=== PATIENT | male | born 1940 | race Caucasian/White ===

== ENCOUNTER 2018-03-30 18:50 | Emergency (ER) | payer OTHER ==
[2018-03-30 20:16] LABS: Absolute Lymphocytes (CBC) 1.2 K/uL (0.7-4.9); Absolute Monocytes 1.5 K/uL (0.1-1.3); Absolute Neutrophil 11.9 K/uL (1.8-8.0); Basophils % 0.2 % (0-1.3); Eosinophils % 0.2 % (0-4.4); Hematocrit 44.6 % (39.6-49.0); Lymphocytes % 8.1 % (15.3-44.8); MCH 30.7 pg (27.0-35.0); MCV 92.6 fL (80-100); MPV 8.3 fL (7.6-11.3); Monocytes % 10.5 % (3.3-12.3); RBC Red Blood Cell Count 4.82 M/uL (4.33-5.43)
[2018-03-30 20:32] LABS: Protime INR 1.37
[2018-03-30 20:49] LABS: BUN Blood Urea Nitrogen 19 mg/dL (7-18); Bicarbonate 27 mmol/L (21-32); Glucose Level 100 mg/dL (74-106); Potassium 3.7 mmol/L (3.5-5.1); Sodium Level 139 mmol/L (136-145)
[2018-03-30 20:50] LABS: ALT/SGPT 29 U/L (12-78); AST/SGOT 22 U/L (15-37); Albumin 3.6 g/dL (3.4-5.0); Alkaline Phosphatase 113 U/L (45-117); Bilirubin Direct 0.2 mg/dL (0-0.2); Bilirubin Total 0.5 mg/dL (0.2-1.0); Magnesium 1.9 mg/dL (1.8-2.4); NT PRO-BNP 3176 pg/mL (<450); Protein, Total 7.2 g/dL (6.4-8.2); Troponin (Emerg Dept Use Only) < 0.02 ng/mL (0.0-0.045)
--- NOTE | 2018-03-30 21:09 | RAD REPORT ---
EXAM DESCRIPTION: Mick Single View03/30/2018 8:40 pm CLINICAL HISTORY: Chest pain COMPARISON: November 2017 FINDINGS: The lungs appear clear of acute infiltrate. The heart is mildly moderately enlarged IMPRESSION: No acute abnormalities displayed
[2018-03-30 21:39] LABS: Urine Appearance CLEAR; Urine Bilirubin NEGATIVE (NEG); Urine Blood TRACE (NEG); Urine Color YELLOW; Urine Glucose NEGATIVE (NEG); Urine Microscopic Reflex ORDER UMIC; Urine Protein 1+ (NEG); Urine Specific Gravity 1.025 (1.005-1.030); Urine Urobilinogen 0.2 mg/dL (0.2-1.0); Urine pH 5.5 (5.0-7.0)
[2018-03-30 21:56] LABS: Urine Bacteria >50 /HPF (NONE SEEN); Urine Culture Reflex Order REFLEXED; Urine RBC <5 /HPF (NONE SEEN)
[2018-03-30] MEDS ORDERED: CEFTRIAXONE/SWI 1gm 1 GM/10 ML SYR ONE (22:12)
--- NOTE | 2018-03-30 22:12 | ER ---
Nurse's Notes [facility] Name: Tim Ahn Age: 77 yrs Sex: Male : 1940 Arrival Date: 03/30/2018 Time: 18:57 Bed 18 Private MD: Diagnosis: Urinary tract infection, site not specified Presentation: 03/30 18:58 Presenting complaint: EMS states: called out for generalized weakness about 30-60 min. em ago, was unable to get out of chair, denies falling or LOC, reports having a hx of "ataxia about once a year". Transition of care: patient was not received from another setting of care. Onset of symptoms was March 30, 2018. Risk Assessment: Do you want to hurt yourself or someone else? Patient reports no desire to harm self or others. Initial Sepsis Screen: Does the patient meet any 2 criteria? No. Patient's initial sepsis screen is negative. Does the patient have a suspected source of infection? No. Patient's initial sepsis screen is negative. Care prior to arrival: None. 18:58 Method Of Arrival: EMS: [facility] em 19:10 Acuity: LUCIEN 3 cc3 Triage Assessment: 19:09 General: Appears in no apparent distress. comfortable, Behavior is calm, cooperative. em Pain: Denies pain. Neuro: Level of Consciousness is awake, alert, obeys commands, Oriented to person, place, time, situation, Dispensary Attendant are equal bilaterally Moves all extremities. Speech is normal, Facial symmetry appears normal, Pupils are PERRLA, Intact. Historical: - Allergies: 19:09 Aggrenox; em 19:09 Dexamethasone; em 19:09 Diltiazem; em 19:09 Diovan; em 19:09 Enalapril; em 19:09 Guanfacine; em 19:09 Mivdzdn-Pef-Oob Reductase Inhibitors; em - Home Meds: 19:09 acetaminophen-codeine 300-30 mg Oral tab 1 tab q 4-6 hrs prn [Active]; docusate sodium em 100 mg Oral cap 1 cap once daily [Active]; fexofenadine 180 mg Oral tab 1 tab daily prn [Active]; glucosamine-chondroitin 1500/1200 Oral liqd 2 tab daily [Active]; Xarelto 15 mg Oral tab daily [Active]; tamsulosin 0.4 mg Oral cp24 1 cap once daily [Active]; Fish Oil 300 mg Oral cap daily [Active]; melatonin 3 mg Oral tab nightly [Active]; methocarbamol 500 mg oral tab [Active]; metoprolol succinate 50 mg Oral Tb24 1 tab once daily [Active]; montelukast 10 mg Oral tab 1 tab daily prn [Active]; Multiple Vitamins Oral tab daily [Active]; - PMHx: 19:09 Atrial Fib; BPH; Hypertension; SVT; em - PSHx: 19:09 Knee surgery; hand surgery; em - Immunization history:: Adult Immunizations up to date. - Social history:: Smoking status: Patient/guardian denies using tobacco. - Ebola Screening: : Patient negative for fever greater than or equal to 101.5 degrees Fahrenheit, and additional compatible Ebola Virus Disease symptoms Patient denies exposure to infectious person Patient denies travel to an Ebola-affected area in the 21 days before illness onset No symptoms or risks identified at this time. Screenin:10 Abuse screen: Denies threats or abuse. Denies injuries from another. Nutritional cc3 screening: No deficits noted. Tuberculosis screening: No symptoms or risk factors identified. Fall Risk Ambulatory Aid- None/Bed Rest/Nurse Assist (0 pts). Gait- Normal/Bed Rest/Wheelchair (0 pts) Mental Status- Oriented to own ability (0 pts). Assessment: 19:10 General: Appears in no apparent distress. comfortable, Behavior is calm, cooperative, cc3 appropriate for age. Pain: Denies pain. Neuro: Level of Consciousness is awake, alert, obeys commands, Oriented to person, place, time, situation, Appropriate for age. Cardiovascular: Denies chest pain. Respiratory: Airway is patent Respiratory effort is even, unlabored, Respiratory pattern is regular, symmetrical. GI: Abdomen is round non-distended. : No signs and/or symptoms were reported regarding the genitourinary system. EENT: No signs and/or symptoms were reported regarding the EENT system. Derm: Skin temperature is warm. Musculoskeletal: Circulation, motion, and sensation intact. Range of motion: intact in all extremities. 20:30 Reassessment: Patient appears in no apparent distress at this time. Patient and/or cc3 family updated on plan of care and expected duration. Pain level reassessed. Patient is alert, oriented x 3, equal unlabored respirations, skin warm/dry/pink. 21:10 Reassessment: Patient appears in no apparent distress at this time. Patient and/or cc3 family updated on plan of care and expected duration. Pain level reassessed. Patient is alert, oriented x 3, equal unlabored respirations, skin warm/dry/pink. 22:20 Reassessment: Patient appears in no apparent distress at this time. Patient and/or cc3 family updated on plan of care and expected duration. Pain level reassessed. Patient is alert, oriented x 3, equal unlabored respirations, skin warm/dry/pink. Dr. Alva discharged the patient home with prescription given. IV cannula removed and patient left ER vitally stable and ambulatory with his family. Vital Signs: 19:09 BP 125 / 67; Pulse 95; Resp 16; Pulse Ox 96% on R/A; Weight 103.87 kg; Height 5 ft. 11 em in. (180.34 cm); Pain 0/10; 20:45 BP 152 / 96; Pulse 90; Resp 20; Pulse Ox 97% on R/A; cc3 21:00 BP 162 / 87; Pulse 93; Resp 19; Pulse Ox 99% ; cc3 22:10 BP 158 / 79; Pulse 89; Resp 20 S; Pulse Ox 97% on R/A; Pain 0/10; cc3 19:09 Body Mass Index 31.94 (103.87 kg, 180.34 cm) em ED Course: 18:57 Patient arrived in ED. em 18:57 Genaro Darby, RN is Primary Nurse. bp 19:09 Arm band placed on. em 19:10 Patient has correct armband on for positive identification. Bed in low position. Call cc3 light in reach. Side rails up X2. conveyor monitor on. Pulse ox on. NIBP on. 19:26 Neno Alva MD is Attending Physician. tw4 19:34 Triage completed. cc3 19:45 Inserted saline lock: 20 gauge in left antecubital area, using aseptic technique. Blood cc3 collected. 20:40 XRAY Chest (1 view) In Process Unspecified. EDMS 22:20 No provider procedures requiring assistance completed. IV discontinued, intact, cc3 bleeding controlled, No redness/swelling at site. Pressure dressing applied. Administered Medications: 22:06 Drug: Rocephin - (cefTRIAXone) 1 grams Route: IVPB; Infused Over: 30 mins; Site: left ao antecubital; 22:20 Follow up: Response: No adverse reaction; IV Status: Completed infusion; IV Intake: [id number] Point of Care Testing: Blood Glucose: 19:07 Blood Glucose: 148 mg/dL; oe Ranges: Intake: 22:20 IV: 50ml; Total: 50ml. cc3 Outcome: 22:12 Discharge ordered by . tw4 22:20 Discharged to home ambulatory, with family. cc3 22:20 Condition: stable 22:20 Discharge instructions given to patient, family, Instructed on discharge instructions, follow up and referral plans. medication usage, Demonstrated understanding of instructions, follow-up care, medications, Prescriptions given X 1. 22:25 Patient left the ED. cc3 Addendum: 04/03/2018 07:18 Addendum: Culture Results: Positive urine culture. No further action required. Bacteria i w sensitive to prescribed antibiotic. Signatures: Dispatcher [employer] EDCrescencio Wilson, PIPE ROLLER PIPE ROLLER em Lesley Villanueva, RN RN Jf Corbett, RN Wale Miranda Brian, RN RN Neno Rawls MD MD tw4 Licha Lamar cc3
--- NOTE | 2018-03-30 22:13 | EDPHYS ---
Physician Documentation [facility] Name: Tim Ahn Age: 77 yrs Sex: Male : 1940 Arrival Date: 03/30/2018 Time: 18:57 Bed 18 Private MD: ED Physician Neno Alva HPI: 03/30 20:40 This 77 yrs old Male presents to ER via EMS with complaints of General tw4 Weakness. 20:40 The patient's problem is reported as weakness, that is generalized. Onset: The tw4 symptoms/episode began/occurred today. Duration: The episode is continuous. The symptoms are alleviated by nothing. The symptoms are aggravated by nothing. Associated signs and symptoms: The patient has no apparent associated signs or symptoms. Severity of symptoms: At their worst the symptoms were moderate. Patient's baseline: Neuro: alert and fully oriented, Motor: no deficits, Ambulation: walks without assistance. The patient has not experienced similar symptoms in the past. Historical: - Allergies: 19:09 Aggrenox; em 19:09 Dexamethasone; em 19:09 Diltiazem; em 19:09 Diovan; em 19:09 Enalapril; em 19:09 Guanfacine; em 19:09 Dxmuehx-Mmn-Qma Reductase Inhibitors; em - Home Meds: 19:09 acetaminophen-codeine 300-30 mg Oral tab 1 tab q 4-6 hrs prn [Active]; docusate sodium em 100 mg Oral cap 1 cap once daily [Active]; fexofenadine 180 mg Oral tab 1 tab daily prn [Active]; glucosamine-chondroitin 1500/1200 Oral liqd 2 tab daily [Active]; Xarelto 15 mg Oral tab daily [Active]; tamsulosin 0.4 mg Oral cp24 1 cap once daily [Active]; Fish Oil 300 mg Oral cap daily [Active]; melatonin 3 mg Oral tab nightly [Active]; methocarbamol 500 mg oral tab [Active]; metoprolol succinate 50 mg Oral Tb24 1 tab once daily [Active]; montelukast 10 mg Oral tab 1 tab daily prn [Active]; Multiple Vitamins Oral tab daily [Active]; - PMHx: 19:09 Atrial Fib; BPH; Hypertension; SVT; em - PSHx: 19:09 Knee surgery; hand surgery; em - Immunization history:: Adult Immunizations up to date. - Social history:: Smoking status: Patient/guardian denies using tobacco. - Ebola Screening: : Patient negative for fever greater than or equal to 101.5 degrees Fahrenheit, and additional compatible Ebola Virus Disease symptoms Patient denies exposure to infectious person Patient denies travel to an Ebola-affected area in the 21 days before illness onset No symptoms or risks identified at this time. ROS: 20:40 Constitutional: Negative for fever, chills, and weight loss, Cardiovascular: Negative tw4 for chest pain, palpitations, and edema, Respiratory: Negative for shortness of breath, cough, wheezing, and pleuritic chest pain, Abdomen/GI: Negative for abdominal pain, nausea, vomiting, diarrhea, and constipation, Back: Negative for injury and pain, MS/Extremity: Negative for injury and deformity. 20:40 Neuro: Positive for weakness. Exam: 20:55 Constitutional: This is a well developed, well nourished patient who is awake, alert, tw4 and in no acute distress. Head/Face: Normocephalic, atraumatic. Chest/axilla: Normal chest wall appearance and motion. Nontender with no deformity. No lesions are appreciated. Cardiovascular: Regular rate and rhythm with a normal S1 and S2. No gallops, murmurs, or rubs. Normal PMI, no JVD. No pulse deficits. Respiratory: Lungs have equal breath sounds bilaterally, clear to auscultation and percussion. No rales, rhonchi or wheezes noted. No increased work of breathing, no retractions or nasal flaring. Abdomen/GI: Soft, non-tender, with normal bowel sounds. No distension or tympany. No guarding or rebound. No evidence of tenderness throughout. Back: No spinal tenderness. No costovertebral tenderness. Full range of motion. MS/ Extremity: Pulses equal, no cyanosis. Neurovascular intact. Full, normal range of motion. Psych: Awake, alert, with orientation to person, place and time. Behavior, mood, and affect are within normal limits. Vital Signs: 19:09 BP 125 / 67; Pulse 95; Resp 16; Pulse Ox 96% on R/A; Weight 103.87 kg; Height 5 ft. 11 em in. (180.34 cm); Pain 0/10; 20:45 BP 152 / 96; Pulse 90; Resp 20; Pulse Ox 97% on R/A; cc3 21:00 BP 162 / 87; Pulse 93; Resp 19; Pulse Ox 99% ; cc3 22:10 BP 158 / 79; Pulse 89; Resp 20 S; Pulse Ox 97% on R/A; Pain 0/10; cc3 19:09 Body Mass Index 31.94 (103.87 kg, 180.34 cm) em MDM: 19:27 Patient medically screened. tw4 22:13 Differential diagnosis: CVA, TIA, metabolic disorder, drug effects. Data reviewed: tw4 vital signs, nurses notes. Test interpretation: by ED physician or midlevel provider: ECG. Counseling: I had a detailed discussion with the patient and/or guardian regarding: the historical points, exam findings, and any diagnostic results supporting the discharge/admit diagnosis, lab results. Special discussion: I discussed with the patient/guardian in detail that at this point there is no indication for admission to the hospital. It is understood, however, that if the symptoms persist or worsen the patient needs to return immediately for re-evaluation. 03/30 19:41 Order name: Basic Metabolic Panel; Complete Time: 21:08 03/30 21:09 Interpretation: Normal except: BUN 19; CRE 1.40; GFR 49. 03/30 19:41 Order name: CBC with Diff; Complete Time: 21:08 4 03/30 21:09 Interpretation: Normal except: WBC 14.6; PLT 139; RIAN% 81.0; LYM% 8.1; NEUT A 11.9. 03/30 19:41 Order name: LFT's; Complete Time: 21:08 4 03/30 21:09 Interpretation: Normal except: GLOB 3.6; A/G 1.0. tw03/30 19:41 Order name: Magnesium; Complete Time: 21:08 03/30 21:10 Interpretation: Within normal limits: MG 1.9. 03/30 19:41 Order name: NT PRO-BNP; Complete Time: 21:08 4 03/30 21:10 Interpretation: Normal except: NT PRO-BNP 3176. 03/30 19:41 Order name: PT-INR; Complete Time: 21:08 03/30 21:10 Interpretation: Normal except: PT 16.2. 03/30 19:41 Order name: Troponin (emerg Dept Use Only); Complete Time: 21:08 tw4 03/30 21:10 Interpretation: Within normal limits: TROPED < 0.02. tw4 03/30 19:41 Order name: XRAY Chest (1 view); Complete Time: 21:11 tw4 03/30 19:41 Order name: EKG; Complete Time: 19:42 tw4 03/30 21:12 Order name: Urinalysis; Complete Time: 22:00 tw4 03/30 21:41 Order name: Urine Microscopic Only; Complete Time: 22:00 EDMS 03/30 21:58 Order name: Urine Culture EDMS 03/30 22:04 Order name: Urine Dipstick--Ancillary (enter results) ms 03/30 19:41 Order name: Cardiac monitoring; Complete Time: 19:55 tw4 03/30 19:41 Order name: EKG - Nurse/Tech; Complete Time: 19:55 tw4 03/30 19:41 Order name: IV Saline Lock; Complete Time: 19:55 tw4 03/30 19:41 Order name: Labs collected and sent; Complete Time: 19:55 tw4 03/30 19:41 Order name: O2 Per Protocol; Complete Time: 19:55 tw4 03/30 19:41 Order name: O2 Sat Monitoring; Complete Time: 19:55 tw4 EC:13 Rate is 79 beats/min. Rhythm is irregularly irregular, A fib. QRS [place] is Normal. [place] tw4 interval is normal. QRS interval is normal. QT interval is normal. No Q waves. T waves are Normal. No ST changes noted. Clinical impression: Atrial Fibrillation. Interpreted by me. Reviewed by me. Administered Medications: 22:06 Drug: Rocephin - (cefTRIAXone) 1 grams Route: IVPB; Infused Over: 30 mins; Site: left ao antecubital; 22:20 Follow up: Response: No adverse reaction; IV Status: Completed infusion; IV Intake: [id number] Point of Care Testing: Blood Glucose: 19:07 Blood Glucose: 148 mg/dL; oe Ranges: Critical Glucose Levels:Adult <50 mg/dl or >400 mg/dl <40 mg/dl or >180 mg/dl Disposition: 03/31 05:45 Chart complete. tw4 Disposition: 03/30/18 22:12 Discharged to Home. Impression: Urinary tract infection, site not specified. - Condition is Stable. - Discharge Instructions: Urinary Tract Infection, Adult, Antibiotic Medicine, Adult. - Prescriptions for Macrobid 100 mg Oral Capsule - take 1 capsule by ORAL route every 12 hours for 10 days; 20 capsule. - Medication Reconciliation Form, Thank You Letter, Antibiotic Education, Prescription Opioid Use form. - Follow up: Private Physician; When: Upon discharge from the Emergency Department; Reason: Further diagnostic work-up, Recheck today's complaints, Continuance of care. - Problem is new. - Symptoms have improved. Signatures: Dispatcher [employer] EDMS Crescencio Moore, WORLD GEOGRAPHY TEACHER WORLD GEOGRAPHY TEACHER Jf Chan, RN RN Neno Parisi MD MD tw4 Licha Lamar cc3 Corrections: (The following items were deleted from the chart) 03/30 22:25 22:12 03/30/2018 22:12 Discharged to Home. Impression: Urinary tract infection, site cc3 not specified. Condition is Stable. Forms are Medication Reconciliation Form, Thank You Letter, Antibiotic Education, Prescription Opioid Use. Follow up: Private Physician; When: Upon discharge from the Emergency Department; Reason: Further diagnostic work-up, Recheck today's complaints, Continuance of care. Problem is new. Symptoms have improved. tw4
[2018-03-30 22:39] VITALS: BP 162/87; O2SAT 99
[2018-03-31 01:14] LABS: Urine Blood TRACE (NEG); Urine Glucose NEGATIVE (NEG); Urine Protein 2+ (NEG); Urine Specific Gravity 1.025 (1.005-1.030)
--- NOTE | 2018-04-01 09:11 | EKG ---
Test Date: 2018-03-30 Test Time: 19:39:43 Suture Polisher: SEAN MEASUREMENT RESULTS: Intervals: Rate: 79 [place]: QRSD: 98 QT: 348 QTc: 399 [place]: P: [place]: QRS: 79 T: 11 INTERPRETIVE STATEMENTS: Atrial fibrillation Abnormal ECG Compared to ECG 08/15/2017 17:58:22 No significant changes Electronically Signed On 04-01-18 09:10:26 CDT by Juan M Price
== END 2018-03-30 22:25 | disposition home or self-care (01) ==
LOC: ER 18:50
DX: N39.0 Urinary tract infection, site not specified (principal); I10 Essential (primary) hypertension; I48.91 Unspecified atrial fibrillation; Z79.01 Long term (current) use of anticoagulants; Z88.8 Allergy status to other drugs, medicaments and biological substances
CPT/HCPCS: 36415; 71045; 80048; 80076; 82962; 83735; 83880; 84484; 85025; 85610; 87077 ×2; 87086; 87088; 87186 ×2; 93005; 96374; 99285; J0696; 81003; 81015

== ENCOUNTER 2019-02-14 10:09 | Emergency (ER) | payer OTHER ==
[2019-02-14] MEDS ORDERED: NA CHLORIDE 0.9% 500 ML ONE (10:40)
[2019-02-14] MEDS ORDERED: PROMETHAZINE 25 MG/ML VIAL ONE (10:50)
[2019-02-14 11:01] LABS: Protime INR 1.35
--- NOTE | 2019-02-14 11:03 | RAD REPORT ---
EXAM DESCRIPTION: RAD - Chest Single View - 02/14/2019 10:56 am CLINICAL HISTORY: weakness, shortness of breath Chest pain. COMPARISON: Chest Pa And Lat (2 Views) dated 06/05/2018; Chest Single View dated 03/30/2018; Chest Pa And Lat (2 Views) dated 11/06/2017; Chest Single View dated 08/15/2017 FINDINGS: Portable technique limits examination quality. The lungs are grossly clear. The heart is upper limit of normal in size. No displaced fractures.Hardw are is present in the lower cervical spine. IMPRESSION: No acute intrathoracic process suspected.
[2019-02-14 11:05] LABS: Absolute Lymphocytes (CBC) 1.5 K/uL (0.7-4.9); Basophils % 0.6 % (0-1.3); Hematocrit 46.7 % (39.6-49.0); Lymphocytes % 20.2 % (15.3-44.8); MPV 9.3 fL (7.6-11.3); RBC Red Blood Cell Count 5.19 M/uL (4.33-5.43)
[2019-02-14 12:32] LABS: Urine Blood NEGATIVE (NEG); Urine Glucose NEGATIVE (NEG); Urine Protein TRACE (NEG); Urine pH 8.5 (5.0-7.0)
[2019-02-14 13:06] LABS: Urine Bacteria <20 /HPF (NONE SEEN); Urine Culture Reflex Order REFLEXED; Urine Mucus 1+ /HPF (NONE SEEN); Urine RBC <5 /HPF (NONE SEEN)
[2019-02-14 14:04] LABS: ALT/SGPT 28 U/L (12-78); AST/SGOT 41 U/L (15-37); Albumin 3.8 g/dL (3.4-5.0); Alkaline Phosphatase 96 U/L (45-117); BUN Blood Urea Nitrogen 16 mg/dL (7-18); Bicarbonate 23 mmol/L (21-32); Bilirubin Direct 0.1 mg/dL (0-0.2); Bilirubin Total 0.6 mg/dL (0.2-1.0); Glucose Level 114 mg/dL (74-106); Lipase 139 U/L (73-393); NT PRO-BNP 1443 pg/mL (<450); Potassium 5.3 mmol/L (3.5-5.1); Protein, Total 6.9 g/dL (6.4-8.2); Sodium Level 141 mmol/L (136-145); Troponin (Emerg Dept Use Only) < 0.02 ng/mL (0.0-0.045)
[2019-02-14] MEDS ORDERED: NA CHLORIDE 0.9% 1,000 ML ONE (14:19)
[2019-02-14 16:56] LABS: Potassium 4.3 mmol/L (3.5-5.1)
--- NOTE | 2019-02-14 17:22 | EDPHYS ---
Physician Documentation [facility] Name: Tim Ahn Age: 78 yrs Sex: Male : 1940 Arrival Date: 02/14/2019 Time: 10:13 Bed 16 Private MD: Per Torres T ED Physician Russ Renae HPI: 02/14 10:29 This 78 yrs old Male presents to ER via EMS with complaints of Nausea, Loose jmm Stools, Shortness Of Breath. 10:29 The patient presents to the emergency department with vomiting, diarrhea. Onset: The jmm symptoms/episode began/occurred 3 day(s) ago. Possible causes: unknown. This is a 78 year old male with a history of atrial fibrillation, htn that presents to the ED with complaints of diarrhea, nausea, weakness, shortness of breath. Diarrhea began 3 days ago. Patient states weakness began today. Denies abdominal pain, denies chest pain. . Historical: - Allergies: 10:26 Aggrenox; jl7 10:26 Dexamethasone; jl7 10:26 Diltiazem; jl7 10:26 Diovan; jl7 10:26 Enalapril; jl7 10:26 Guanfacine; jl7 10:26 Cfnoxxb-Bno-Jzn Reductase Inhibitors; jl7 10:26 Lisinopril; jl7 10:26 valsartan; jl7 - Home Meds: 10:26 spironolactone 25 mg Oral tab 1 tab once daily [Active]; Metamucil Smooth Texture Oral jl7 [Active]; fexofenadine 180 mg Oral tab 1 tab daily prn [Active]; Xarelto 15 mg Oral tab daily [Active]; metoprolol succinate 50 mg Oral Tb24 1 tab [Active]; amlodipine 10 mg tab 1 tab once daily [Active]; tamsulosin 0.4 mg Oral cp24 1 cap once daily [Active]; docusate sodium 100 mg Oral cap 1 cap once daily [Active]; montelukast 10 mg Oral tab 1 tab daily prn [Active]; methocarbamol 500 mg Oral tab [Active]; melatonin 3 mg Oral tab nightly [Active]; Multiple Vitamins Oral tab daily [Active]; - PMHx: 10:26 Atrial Fib; BPH; Hypertension; SVT; jl7 - PSHx: 10:26 Knee surgery; hand surgery; jl7 - Immunization history:: Adult Immunizations up to date. - Social history:: Smoking status: Patient/guardian denies using tobacco. - Ebola Screening: : No symptoms or risks identified at this time. ROS: 10:29 Cardiovascular: Negative for chest pain, palpitations, and edema. jmm 10:29 Constitutional: Positive for fatigue, malaise. 10:29 Respiratory: Positive for shortness of breath. 10:29 Abdomen/GI: Positive for nausea, diarrhea. 10:29 Neuro: Positive for weakness. 10:29 All other systems are negative. Exam: 10:29 Constitutional: This is a well developed, well nourished patient who is awake, alert, jmm and in no acute distress. Head/Face: atraumatic. Eyes: EOMI, no conjunctival erythema appreciated ENT: Moist Mucus Membranes Neck: Trachea midline, Supple Chest/axilla: Normal chest wall appearance and motion. Cardiovascular: Regular rate and rhythm. No edema appreciated Respiratory: Normal respirations, no respiratory distress appreciated Abdomen/GI: Non distended, soft Back: Normal ROM Skin: General appearance color normal MS/ Extremity: Moves all extremities, no obvious deformities appreciated, no edema noted to the lower extremities Neuro: Awake and alert, normal gait Psych: Behavior is normal, Mood is normal, Patient is cooperative and pleasant Vital Signs: 10:26 BP 160 / 87; Pulse 74; Resp 26 S; Temp 97.4(O); Pulse Ox 100% on R/A; jl7 11:59 BP 149 / 93; Pulse 67; Resp 19; Temp 98.0(TE); Pulse Ox 100% on 3 lpm NC; 5 14:05 BP 151 / 97; Pulse 61; Resp 23; Pulse Ox 99% 3 lpm ; mh5 15:52 BP 149 / 52; Pulse 72; Resp 18; Temp 97.8(TE); Pulse Ox 100% on 3 lpm NC; mh5 17:00 BP 145 / 63; Pulse 54; Resp 16 S; Pulse Ox 100% on R/A; jl7 MDM: 10:17 Patient medically screened. [facility] 17:19 Data reviewed: vital signs, nurses notes. Counseling: I had a detailed discussion with jody the patient and/or guardian regarding: the historical points, exam findings, and any diagnostic results supporting the discharge/admit diagnosis, lab results, radiology results, the need for outpatient follow up, to return to the emergency department if symptoms worsen or persist or if there are any questions or concerns that arise at home. ED course: Patient is alert and non toxic in appearance in the ED. Patient states that he feels much better. Patient advised to follow up with pcp and otherwise given strict return precautions. Patient understood and agrees with the plan of care. . 02/14 10:28 Order name: Basic Metabolic Panel; Complete Time: 14:14 [facility] 02/14 10:28 Order name: CBC with Diff; Complete Time: 11:22 [facility] 02/14 10:28 Order name: LFT's; Complete Time: 14:14 [facility] 02/14 10:28 Order name: Magnesium; Complete Time: 14:14 [facility] 02/14 10:28 Order name: NT PRO-BNP; Complete Time: 14:14 [facility] 02/14 10:28 Order name: PT-INR; Complete Time: 11:22 [facility] 02/14 10:28 Order name: Troponin (emerg Dept Use Only); Complete Time: 14:14 [facility] 02/14 10:28 Order name: XRAY Chest (1 view); Complete Time: 11:22 [facility] 02/14 10:28 Order name: Lipase; Complete Time: 14:14 [facility] 02/14 11:36 Order name: Urine Microscopic Only; Complete Time: 13:10 [facility] 02/14 12:17 Order name: Urine Dipstick--Ancillary (enter results); Complete Time: 12:38 sc 02/14 13:12 Order name: Urine Culture [facility] 02/14 15:40 Order name: BMP; Complete Time: 16:58 [facility] 02/14 10:28 Order name: EKG; Complete Time: 10:30 [facility] 02/14 10:28 Order name: Cardiac monitoring; Complete Time: 10:49 [facility] 02/14 10:28 Order name: EKG - Nurse/Tech; Complete Time: 11:16 [facility] 02/14 10:28 Order name: IV Saline Lock; Complete Time: 10:49 [facility] 02/14 10:28 Order name: Labs collected and sent; Complete Time: 10:49 [facility] 02/14 10:28 Order name: O2 Per Protocol; Complete Time: 11:16 [facility] 02/14 10:28 Order name: O2 Sat Monitoring; Complete Time: 11:16 [facility] 02/14 11:15 Order name: Labs - recollect needed; Complete Time: 11:24 02/14 11:36 Order name: Urine Dipstick-Ancillary (obtain specimen); Complete Time: 12:34 [facility] Administered Medications: 04:20 Drug: NS 0.9% 1000 ml Route: IV; Rate: 1 bolus; Site: left hand; jl7 16:00 Follow up: Response: No adverse reaction; IV Status: Completed infusion; IV Intake: jl7 1000ml 11:00 Drug: NS 0.9% 500 ml Route: IV; Rate: bolus; Site: right wrist; jl7 11:45 Follow up: Response: No adverse reaction; IV Status: Completed infusion; IV Intake: jl7 500ml 11:00 Drug: Phenergan 12.5 mg Route: IVP; Site: right wrist; jl7 11:20 Follow up: Response: No adverse reaction; Marked relief of symptoms; Nausea is decreasedjl7 Disposition: 19:04 Co-signature as Attending Physician, Russ Renae MD. rn Disposition: 02/14/19 17:22 Discharged to Home. Impression: Diarrhea, unspecified, Dehydration. - Condition is Stable. - Discharge Instructions: Food Choices to Help Relieve Diarrhea, Adult, Dehydration, Adult. - Prescriptions for Zofran ODT 4 mg Oral tablet,disintegrating - place 1 tablet by TRANSLINGUAL route every 4-6 hours; 20 tablet. - Medication Reconciliation Form, Thank You Letter, Antibiotic Education, Prescription Opioid Use form. - Follow up: Per Torres MD; When: 2 - 3 days; Reason: Recheck today's complaints, Continuance of care, Re-evaluation by your physician. Signatures: Dispatcher [employer] EDMS Kandice Mcguire Joel, PA PA [facility] Russ Renae MD MD rn Leal, Jahala, RN RN jl7 Corrections: (The following items were deleted from the chart) 17:43 17:22 02/14/2019 17:22 Discharged to Home. Impression: Diarrhea, unspecified; jl7 Dehydration. Condition is Stable. Forms are Medication Reconciliation Form, Thank You Letter, Antibiotic Education, Prescription Opioid Use. Follow up: Per Torres; When: 2 - 3 days; Reason: Recheck today's complaints, Continuance of care, Re-evaluation by your physician. jody
--- NOTE | 2019-02-14 17:22 | ER ---
Nurse's Notes [facility] Name: Tim Ahn Age: 78 yrs Sex: Male : 1940 Arrival Date: 02/14/2019 Time: 10:13 Bed 16 Private MD: Per Torres T Diagnosis: Diarrhea, unspecified;Dehydration Presentation: 02/14 10:15 Presenting complaint: EMS states: Pt reports watery stools x 4 days, [place] [address], got home reported SOB, cold and clammy and confusion. Pt states "I can't think straight.". Transition of care: patient was not received from another setting of care. Onset of symptoms was February 14, 2019. Risk Assessment: Do you want to hurt yourself or someone else? Patient reports no desire to harm self or others. Initial Sepsis Screen: Does the patient meet any 2 criteria? No. Patient's initial sepsis screen is negative. Does the patient have a suspected source of infection? No. Patient's initial sepsis screen is negative. Care prior to arrival: Medication(s) given: Normal saline infusion, 500 mL, IV initiated. 20 GA, in the right wrist. 10:15 Method Of Arrival: EMS: [facility] 7 10:15 Acuity: LUCIEN 3 jl7 Triage Assessment: 10:30 General: Appears uncomfortable, ill, Behavior is cooperative, anxious. Pain: Complains jl7 of pain in abdomen diffusely. EENT: No signs and/or symptoms were reported regarding the EENT system. Neuro: Level of Consciousness is awake, alert, obeys commands, Oriented to person, place, time, situation. Cardiovascular: Patient's skin is warm and dry. Respiratory: Airway is patent Respiratory effort is even, unlabored, Respiratory pattern is regular, symmetrical, Breath sounds are clear bilaterally. GI: Abdomen is round non-distended, Bowel sounds present X 4 quads. Abd is soft and non tender X 4 quads. Reports diarrhea, nausea, Patient currently denies vomiting. Derm: Skin is pink, warm \\T\\ dry. Historical: - Allergies: 10:26 Aggrenox; jl7 10:26 Dexamethasone; jl7 10:26 Diltiazem; jl7 10:26 Diovan; jl7 10:26 Enalapril; jl7 10:26 Guanfacine; jl7 10:26 Gyiwcow-Inc-Yza Reductase Inhibitors; jl7 10:26 Lisinopril; jl7 10:26 valsartan; jl7 - Home Meds: 10:26 spironolactone 25 mg Oral tab 1 tab once daily [Active]; Metamucil Smooth Texture Oral jl7 [Active]; fexofenadine 180 mg Oral tab 1 tab daily prn [Active]; Xarelto 15 mg Oral tab daily [Active]; metoprolol succinate 50 mg Oral Tb24 1 tab [Active]; amlodipine 10 mg tab 1 tab once daily [Active]; tamsulosin 0.4 mg Oral cp24 1 cap once daily [Active]; docusate sodium 100 mg Oral cap 1 cap once daily [Active]; montelukast 10 mg Oral tab 1 tab daily prn [Active]; methocarbamol 500 mg Oral tab [Active]; melatonin 3 mg Oral tab nightly [Active]; Multiple Vitamins Oral tab daily [Active]; - PMHx: 10:26 Atrial Fib; BPH; Hypertension; SVT; jl7 - PSHx: 10:26 Knee surgery; hand surgery; jl7 - Immunization history:: Adult Immunizations up to date. - Social history:: Smoking status: Patient/guardian denies using tobacco. - Ebola Screening: : No symptoms or risks identified at this time. Screenin:30 Abuse screen: Denies threats or abuse. Denies injuries from another. Nutritional jl7 screening: No deficits noted. Tuberculosis screening: No symptoms or risk factors identified. Fall Risk IV access (20 points). Total Maldonado Fall Scale indicates No Risk (0-24 pts). Assessment: 10:30 General: See triage assessment. jl7 11:00 Reassessment: Pt reports "I don't feel right, I just feel real bad. My stomach hurts jl7 and I just don't feel good." ERP notified, see MAR for orders. 11:29 Reassessment: Patient appears in no apparent distress at this time. Patient denies pain jl7 at this time. Patient states feeling better. Patient states symptoms have improved. 12:30 Reassessment: Patient appears in no apparent distress at this time. Patient and/or jl7 family updated on plan of care and expected duration. Pain level reassessed. Patient is alert, oriented x 3, equal unlabored respirations, skin warm/dry/pink. 14:10 Reassessment: Pt's granddaughter at bedside. Pt's neighbor, Sahra, called to check on jl7 him. Message given to pt and grand-daughter. 14:40 Reassessment: Pt requesting to eat. [place], chips, fruit cup and water provided. jl7 15:30 Reassessment: Patient appears in no apparent distress at this time. Patient and/or jl7 family updated on plan of care and expected duration. Pain level reassessed. Patient is alert, oriented x 3, equal unlabored respirations, skin warm/dry/pink. Patient denies pain at this time. 17:30 Reassessment: Pt reports "I took a new medication for the first time this morning and jl7 I'm wondering if that what caused it." ERP told pt not to take donezepil again until he see Dr. Torres, pt verbalized understanding. Vital Signs: 10:26 BP 160 / 87; Pulse 74; Resp 26 S; Temp 97.4(O); Pulse Ox 100% on R/A; jl7 11:59 BP 149 / 93; Pulse 67; Resp 19; Temp 98.0(TE); Pulse Ox 100% on 3 lpm NC; mh5 14:05 BP 151 / 97; Pulse 61; Resp 23; Pulse Ox 99% 3 lpm ; mh5 15:52 BP 149 / 52; Pulse 72; Resp 18; Temp 97.8(TE); Pulse Ox 100% on 3 lpm NC; mh5 17:00 BP 145 / 63; Pulse 54; Resp 16 S; Pulse Ox 100% on R/A; jl7 ED Course: 10:13 Patient arrived in ED. am2 10:14 Per Torres MD is Private Physician. am2 10:14 Dash Eduardo PA is PHCP. m 10:14 Russ Renae MD is Attending Physician. jm 10:15 Justino Mills RN is Primary Nurse. jl7 10:19 Triage completed. jl7 10:26 Arm band placed on right wrist. jl7 10:30 Patient has correct armband on for positive identification. Placed in gown. Bed in low jl7 position. Call light in reach. Side rails up X2. charter coach driver on. Pulse ox on. NIBP on. Warm blanket given. 10:48 Initial lab(s) drawn, by me, sent to lab. Maintain EMS IV. Dressing intact. Site clean mh5 \\T\\ dry. 10:48 Lipase Sent. mh5 10:49 Basic Metabolic Panel Sent. mh5 10:49 CBC with Diff Sent. 5 10:49 LFT's Sent. 5 10:49 Magnesium Sent. 5 10:49 NT PRO-BNP Sent. 5 10:49 PT-INR Sent. 5 10:49 Troponin (emerg Dept Use Only) Sent. mh5 10:59 XRAY Chest (1 view) In Process Unspecified. EDMS 11:30 Lab(s) recollected, by me, sent to lab. Inserted saline lock: 22 gauge in left hand, jl7 using aseptic technique. Blood collected. 13:30 Lab(s) recollected, by me, sent to lab. jl7 14:44 No provider procedures requiring assistance completed. jl7 16:31 Repeat lab(s) drawn. by me, sent to lab. jl7 17:21 Per Torres MD is Referral Physician. m 17:40 IV discontinued, intact, bleeding controlled, No redness/swelling at site. Pressure jl7 dressing applied. Administered Medications: 04:20 Drug: NS 0.9% 1000 ml Route: IV; Rate: 1 bolus; Site: left hand; jl7 16:00 Follow up: Response: No adverse reaction; IV Status: Completed infusion; IV Intake: jl7 1000ml 11:00 Drug: NS 0.9% 500 ml Route: IV; Rate: bolus; Site: right wrist; jl7 11:45 Follow up: Response: No adverse reaction; IV Status: Completed infusion; IV Intake: jl7 500ml 11:00 Drug: Phenergan 12.5 mg Route: IVP; Site: right wrist; jl7 11:20 Follow up: Response: No adverse reaction; Marked relief of symptoms; Nausea is decreasedjl7 Intake: 11:45 IV: 500ml; Total: 500ml. jl7 16:00 IV: 1000ml; Total: 1500ml. jl7 Outcome: 17:22 Discharge ordered by . jody 17:40 Discharged to home ambulatory. jl7 17:40 Condition: stable 17:40 Discharge instructions given to patient, family, Instructed on discharge instructions, follow up and referral plans. Demonstrated understanding of instructions, follow-up care. 17:43 Patient left the ED. jl7 Addendum: 02/17/2019 18:10 Addendum: Culture Results: Positive urine culture. Patient was not prescribed a a5 antibiotics at discharge. Report given to MARLO for further evaluation and then to talent coordinator for follow up with patient. Prescription called-in to pharmacy of choice. to [facility] pharmacy in [place], [place] per pt's request. Signatures: Dispatcher [employer] EDMS Dash Eduardo PA PA jmm Calderon, Audri, RN RN calin5 Ana Cristina Tom Jahala, RN RN jl7 Melissa Winn
[2019-02-14 17:53] VITALS: TEMP 97.8; O2SAT 100
[2019-02-14 17:55] VITALS: BP 145/63
--- NOTE | 2019-02-14 20:20 | EKG ---
Test Date: 2019-02-14 Test Time: 10:19:29 Sql Programmer Analyst: APOLINAR MEASUREMENT RESULTS: Intervals: Rate: 79 IA: QRSD: 96 QT: 400 QTc: 458 [place]: P: IA: QRS: 65 T: 2 INTERPRETIVE STATEMENTS: Atrial fibrillation Nonspecific ST abnormality, probably digitalis effect Abnormal ECG Compared to ECG 03/30/2018 19:39:43 ST (T wave) deviation now present Electronically Signed On 02-14-19 20:18:33 CDT by Víctor Vasquez
== END 2019-02-14 17:43 | disposition home or self-care (01) ==
LOC: ER 10:09
DX: E86.0 Dehydration (principal); I10 Essential (primary) hypertension; I48.91 Unspecified atrial fibrillation; N40.0 Benign prostatic hyperplasia without lower urinary tract symptoms; Z79.01 Long term (current) use of anticoagulants; Z88.8 Allergy status to other drugs, medicaments and biological substances
CPT/HCPCS: 96361; 93005; 87088; 85025; 87086; 80048 ×2; 36415; 83735; 85610; 80076; 87077; 87186; 84484; 83690; 83880; 71045; 96374; 99284; J2550; J7030; 81003; 81015

== ENCOUNTER 2019-08-14 11:14 | Emergency (ER) | payer OTHER ==
--- NOTE | 2019-08-14 12:03 | RAD REPORT ---
EXAM DESCRIPTION: CT - Head Brain Wo Cont - 08/14/2019 11:40 am CLINICAL HISTORY: Head injury with headache COMPARISON: 2019 TECHNIQUE: Computed axial tomography of the head was obtained. IV contrast was not requested. All CT scans are performed using dose optimization technique as appropriate and may include automated exposure control or mA/KV adjustment according to patient size. FINDINGS: Right frontal scalp swelling. An intracranial bleed is not seen . The ventricles are normal in caliber. No extra-axial fluid collection is noted. Mild to moderate low-density areas within periventricular, deep and subcortical white matter likely r epresent ischemic changes secondary to small vessel disease. Fluid within the sinuses/ mastoids is not seen. IMPRESSION: No acute intracranial abnormality is seen. If patient's symptoms persist MRI of the bra in would be recommended.
--- NOTE | 2019-08-14 12:17 | ER ---
Nurse's Notes [facility] Name: Tim Ahn Age: 79 yrs Sex: Male : 1940 Arrival Date: 08/14/2019 Time: 11:16 Bed 20 Private MD: Diagnosis: Superficial injury of head Presentation: 08/13 11:33 Chief complaint: Patient states: fell and hit head on brick wall, bruising and bleeding dm5 noted to right side of head. Coronavirus screen: The patient has NOT traveled to a country currently being monitored by the [facility] within the last 14 days. Proceed with normal triage procedures. The patient has NOT had contact with any known and/or suspected case of coronavirus. Proceed with normal triage procedures. Ebola Screen: Patient negative for fever greater than or equal to 101.5 degrees Fahrenheit, and additional compatible Ebola Virus Disease symptoms Patient denies exposure to infectious person. Patient denies travel to an Ebola-affected area in the 21 days before illness onset. No symptoms or risks identified at this time. Initial Sepsis Screen: Does the patient meet any 2 criteria? No. Patient's initial sepsis screen is negative. Does the patient have a suspected source of infection? No. Patient's initial sepsis screen is negative. Risk Assessment: Do you want to hurt yourself or someone else? Patient reports no desire to harm self or others. 11:33 Method Of Arrival: Ambulatory dm5 11:33 Acuity: LUCIEN 2 dm5 Historical: - Allergies: 11:25 Aggrenox; rb1 11:25 Dexamethasone; rb1 11:25 Diltiazem; rb1 11:25 Diovan; rb1 11:25 Enalapril; rb1 11:25 Guanfacine; rb1 11:25 Lisinopril; rb1 11:25 Elcexdc-Jds-Rnb Reductase Inhibitors; rb1 11:25 valsartan; rb1 - Home Meds: 11:25 amlodipine 10 mg tab 1 tab once daily [Active]; docusate sodium 100 mg Oral cap 1 cap rb1 once daily [Active]; fexofenadine 180 mg Oral tab 1 tab daily prn [Active]; melatonin 3 mg Oral tab nightly [Active]; Metamucil Smooth Texture Oral [Active]; methocarbamol 500 mg Oral tab [Active]; metoprolol succinate 50 mg Oral Tb24 1 tab [Active]; montelukast 10 mg Oral tab 1 tab daily prn [Active]; Multiple Vitamins Oral tab daily [Active]; spironolactone 25 mg Oral tab 1 tab once daily [Active]; tamsulosin 0.4 mg Oral cp24 1 cap once daily [Active]; Xarelto 15 mg Oral tab daily [Active]; - PMHx: 11:25 Atrial Fib; BPH; Hypertension; SVT; rb1 - PSHx: 11:25 Knee surgery; hand surgery; rb1 - Immunization history:: Adult Immunizations up to date. - Social history:: Smoking status: Patient/guardian denies using. Screenin:25 Abuse screen: Denies threats or abuse. Tuberculosis screening: No symptoms or risk rb1 factors identified. 11:25 Nutritional screening: No deficits noted. Fall Risk Fall in past 12 months (25 points). rb1 Secondary diagnosis (15 points) No IV (0 pts). Ambulatory Aid- None/Bed Rest/Nurse Assist (0 pts). Gait- Normal/Bed Rest/Wheelchair (0 pts) Mental Status- Oriented to own ability (0 pts). Total Maldonado Fall Scale indicates Low Risk Score (25-44 pts). Fall prevention measures have been instituted. Side Rails Up X 2 Placed close to Nursing Station 1:1 attendant Assigned to Pt. Frequent Obs/Assesments occuring As available Patient and Family Educated on Fall Prevention Program and strategies. Primary Survey: 11:25 NO uncontrolled hemorrhage observed. A: The patient is alert. Airway: patent. rb1 Breathing/Chest: Respiratory pattern: regular, Respiratory effort: spontaneous, unlabored, Chest inspection: symmetrical rise and fall of the chest. Circulation: Skin color: pink, Skin temperature: warm, dry. Disability Alert. Exposure/Environment: There is no evidence of uncontrolled external bleeding. Obvious injury(ies) are noted at this time: skin tear noted to the right side of the head and right forearm A warming method has been applied: A warm blanket has been provided to the patient. Secondary Survey: 11:25 HEENT: Head Other skin tear noted to the right side of his head. Gastrointestinal: No rb1 deficits noted. : No deficits noted. Musculoskeletal: Range of motion: intact in all extremities. Assessment: 11:25 General: Appears in no apparent distress. comfortable, Behavior is calm, cooperative, rb1 Denies feeling ill. Pain: Complains of pain in right arm Pain currently is 4 out of 10 on a pain scale. Neuro: Level of Consciousness is awake, alert, obeys commands, Oriented to person, place, time, situation. Neuro: Reports headache in right. Neuro: Denies blurred vision dizziness. Cardiovascular: Capillary refill < 3 seconds is brisk in bilateral fingers. Respiratory: Airway is patent Respiratory effort is even, unlabored, Respiratory pattern is regular, symmetrical. GI: No signs and/or symptoms were reported involving the gastrointestinal system. : No signs and/or symptoms were reported regarding the genitourinary system. Derm: Wound noted right side of head Other: bleeding controlled. Dry blood noted around the skin tear on his head and right forearm. Musculoskeletal: Range of motion: intact in all extremities. 12:00 Reassessment: Performed wound care, pt tolerated well. rb1 12:22 Reassessment: Patient appears in no apparent distress at this time. Patient and/or rb1 family updated on plan of care and expected duration. Pain level reassessed. Patient is alert, oriented x 3, equal unlabored respirations, skin warm/dry/pink. Vital Signs: 11:33 BP 149 / 103; Pulse 84; Resp 18; Temp 98.3; Pulse Ox 98% on R/A; Weight 98.43 kg; dm5 Height 6 ft. (182.88 cm); Pain 2/10; 12:22 BP 147 / 101; Pulse 88; Resp 17; Pulse Ox 99% on R/A; rb1 11:33 Body Mass Index 29.43 (98.43 kg, 182.88 cm) dm5 Imperial Coma Score: 11:25 Eye Response: spontaneous(4). Verbal Response: oriented(5). Motor Response: obeys rb1 commands(6). Total: 15. Trauma Score (Adult): 11:25 Eye Response: spontaneous(1); Verbal Response: oriented(1); Motor Response: obeys rb1 commands(2); Systolic BP: > 89 mm Hg(4); Respiratory Rate: 10 to 29 per min(4); Sean Score: 15; Trauma Score: 12 12:22 Eye Response: spontaneous(1); Verbal Response: oriented(1); Motor Response: obeys rb1 commands(2); Systolic BP: > 89 mm Hg(4); Respiratory Rate: 10 to 29 per min(4); Sean Score: 15; Trauma Score: 12 ED Course: 11:16 Patient arrived in ED. ag5 11:23 Qasim Luna PA is PHCP. jr8 11:23 Hua Mena MD is Attending Physician. jr8 11:25 Patient has correct armband on for positive identification. Bed in low position. Call rb1 light in reach. Side rails up X2. 11:25 Patient maintains SpO2 saturation greater than 95% on room air. rb1 11:31 Diann Thorne, RN is Primary Nurse. rb1 11:34 Triage completed. dm5 11:44 CT Head Brain wo Cont In Process Unspecified. EDMS 12:50 No provider procedures requiring assistance completed. Patient did not have IV access mg2 during this emergency room visit. Administered Medications: No medications were administered Outcome: 12:17 Discharge ordered by . jr8 12:50 Discharged to home ambulatory. mg2 12:50 Condition: stable 12:50 Discharge instructions given to patient, Instructed on discharge instructions, follow up and referral plans. Demonstrated understanding of instructions, follow-up care, wound care. 12:50 Patient left the ED. mg2 Signatures: Dispatcher [employer] EDMS Harleen Mata, RN RN dm5 Qasim Luna PA PA jr8 Diann Thorne, RN RN rb1 Norman Garzon RN RN mg2 Rosalio Pineda ag5
--- NOTE | 2019-08-14 12:17 | EDPHYS ---
Physician Documentation [facility] Name: Tim Ahn Age: 79 yrs Sex: Male : 1940 Arrival Date: 08/14/2019 Time: 11:16 Bed 20 Private MD: ED Physician Hua Mena HPI: 08/13 11:37 This 79 yrs old Male presents to ER via Ambulatory with complaints of Fall jr8 Injury, Head Injury-Adult. 11:37 Details of fall: The patient fell from an upright position, while standing. Onset: The jr8 symptoms/episode began/occurred acutely, today. Associated injuries: The patient sustained injury to the head, abrasion, laceration, right arm, abrasion. Severity of symptoms: At their worst the symptoms were mild, in the emergency department the symptoms are unchanged. The patient has not experienced similar symptoms in the past. The patient has not recently seen a physician. Patient stated that he tripped over flower bed causing him to hit right side of head on brick. Denies LOC. Mild pain to right head and left ventral forearm . Historical: - Allergies: 11:25 Aggrenox; rb1 11:25 Dexamethasone; rb1 11:25 Diltiazem; rb1 11:25 Diovan; rb1 11:25 Enalapril; rb1 11:25 Guanfacine; rb1 11:25 Lisinopril; rb1 11:25 [place]-Nbf-Bju Reductase Inhibitors; rb1 11:25 valsartan; rb1 - Home Meds: 11:25 amlodipine 10 mg tab 1 tab once daily [Active]; docusate sodium 100 mg Oral cap 1 cap rb1 once daily [Active]; fexofenadine 180 mg Oral tab 1 tab daily prn [Active]; melatonin 3 mg Oral tab nightly [Active]; Metamucil Smooth Texture Oral [Active]; methocarbamol 500 mg Oral tab [Active]; metoprolol succinate 50 mg Oral Tb24 1 tab [Active]; montelukast 10 mg Oral tab 1 tab daily prn [Active]; Multiple Vitamins Oral tab daily [Active]; spironolactone 25 mg Oral tab 1 tab once daily [Active]; tamsulosin 0.4 mg Oral cp24 1 cap once daily [Active]; Xarelto 15 mg Oral tab daily [Active]; - PMHx: 11:25 Atrial Fib; BPH; Hypertension; SVT; rb1 - PSHx: 11:25 Knee surgery; hand surgery; rb1 - Immunization history:: Adult Immunizations up to date. - Social history:: Smoking status: Patient/guardian denies using. ROS: 11:37 Eyes: Negative for injury, pain, redness, and discharge, ENT: Negative for injury, jr8 pain, and discharge, Neck: Negative for injury, pain, and swelling, Cardiovascular: Negative for chest pain, palpitations, and edema, Respiratory: Negative for shortness of breath, cough, wheezing, and pleuritic chest pain, Abdomen/GI: Negative for abdominal pain, nausea, vomiting, diarrhea, and constipation, Back: Negative for injury and pain, MS/Extremity: Negative for injury and deformity, Neuro: Negative for headache, weakness, numbness, tingling, and seizure. 11:37 Skin: Positive for abrasion(s), avulsion, of the right arm and scalp. Exam: 11:37 Eyes: Pupils equal round and reactive to light, extra-ocular motions intact. Lids and jr8 lashes normal. Conjunctiva and sclera are non-icteric and not injected. Cornea within normal limits. Periorbital areas with no swelling, redness, or edema. ENT: Nares patent. No nasal discharge, no septal abnormalities noted. Tympanic membranes are normal and external auditory canals are clear. Oropharynx with no redness, swelling, or masses, exudates, or evidence of obstruction, uvula midline. Mucous membranes moist. Neck: Trachea midline, no thyromegaly or masses palpated, and no cervical lymphadenopathy. Supple, full range of motion without nuchal rigidity, or vertebral point tenderness. No Meningismus. Cardiovascular: Regular rate and rhythm with a normal S1 and S2. No gallops, murmurs, or rubs. Normal PMI, no JVD. No pulse deficits. Respiratory: Lungs have equal breath sounds bilaterally, clear to auscultation and percussion. No rales, rhonchi or wheezes noted. No increased work of breathing, no retractions or nasal flaring. Abdomen/GI: Soft, non-tender, with normal bowel sounds. No distension or tympany. No guarding or rebound. No evidence of tenderness throughout. Back: No spinal tenderness. No costovertebral tenderness. Full range of motion. MS/ Extremity: Pulses equal, no cyanosis. Neurovascular intact. Full, normal range of motion. Neuro: Awake and alert, GCS 15, oriented to person, place, time, and situation. Cranial nerves II-XII grossly intact. Motor strength 5/5 in all extremities. Sensory grossly intact. Cerebellar exam normal. Normal gait. 11:37 Head/face: approximately 2.5 cm avulsion of skin to right parietal region of scalp. No active bleeding at this time. No depression of skull or other trauma noted . 11:37 Skin: injury, abrasion(s), small abrasion noted, of the right ventral forearm . Vital Signs: 11:33 BP 149 / 103; Pulse 84; Resp 18; Temp 98.3; Pulse Ox 98% on R/A; Weight 98.43 kg; dm5 Height 6 ft. (182.88 cm); Pain 2/10; 12:22 BP 147 / 101; Pulse 88; Resp 17; Pulse Ox 99% on R/A; rb1 11:33 Body Mass Index 29.43 (98.43 kg, 182.88 cm) dm5 Sean Coma Score: 11:25 Eye Response: spontaneous(4). Verbal Response: oriented(5). Motor Response: obeys rb1 commands(6). Total: 15. Trauma Score (Adult): 11:25 Eye Response: spontaneous(1); Verbal Response: oriented(1); Motor Response: obeys rb1 commands(2); Systolic BP: > 89 mm Hg(4); Respiratory Rate: 10 to 29 per min(4); [place] Score: 15; Trauma Score: 12 12:22 Eye Response: spontaneous(1); Verbal Response: oriented(1); Motor Response: obeys rb1 commands(2); Systolic BP: > 89 mm Hg(4); Respiratory Rate: 10 to 29 per min(4); [place] Score: 15; Trauma Score: 12 MDM: 11:23 Patient medically screened. jr8 12:14 Data reviewed: vital signs, nurses notes, radiologic studies, CT scan. Data jr8 interpreted: Pulse oximetry: on room air is 98 %. Interpretation: normal. Counseling: I had a detailed discussion with the patient and/or guardian regarding: the historical points, exam findings, and any diagnostic results supporting the discharge/admit diagnosis, radiology results, the need for outpatient follow up, a family practitioner, to return to the emergency department if symptoms worsen or persist or if there are any questions or concerns that arise at home. ED course: No acute CT head findings. Patient doing well. Does not require sutures or ervin. Will d/c home to f/u with PCP . 08/13 11:29 Order name: CT Head Brain wo Cont; Complete Time: 12:32 jr8 Administered Medications: No medications were administered Disposition: 17:19 Co-signature as Attending Physician, Hua Mena MD I agree with the assessment and kdr plan of care. Disposition: 08/14/19 12:17 Discharged to Home. Impression: Superficial injury of head. - Condition is Stable. - Discharge Instructions: Head Injury, Adult. - Medication Reconciliation Form, Thank You Letter, Antibiotic Education, Prescription Opioid Use form. - Follow up: Private Physician; When: 1 - 2 days; Reason: Wound Recheck, Recheck today's complaints, Continuance of care, Re-evaluation by your physician. - Problem is new. - Symptoms have improved. Signatures: Dispatcher [employer] EDMS Hua Mena MD MD [facility] Qasim Luna PA PA jr8 Diann Thorne, RN RN rb1 Norman Garzon RN RN mg2 Corrections: (The following items were deleted from the chart) 12:50 12:17 08/14/2019 12:17 Discharged to Home. Impression: Superficial injury of head. mg2 Condition is Stable. Forms are Medication Reconciliation Form, Thank You Letter, Antibiotic Education, Prescription Opioid Use. Follow up: Private Physician; When: 1 - 2 days; Reason: Wound Recheck, Recheck today's complaints, Continuance of care, Re-evaluation by your physician. Problem is new. Symptoms have improved. jr8
[2019-08-14 14:04] VITALS: BP 149/103; TEMP 98.3; O2SAT 98
== END 2019-08-14 12:50 | disposition home or self-care (01) ==
LOC: ER 11:14
DX: S00.01XA Abrasion of scalp, initial encounter (principal); S50.811A Abrasion of right forearm, initial encounter; W01.198A Fall on same level from slipping, tripping and stumbling with subsequent striking against other object, initial encounter; Y93.01 Activity, walking, marching and hiking; Y92.9 Unspecified place or not applicable; I10 Essential (primary) hypertension; I48.91 Unspecified atrial fibrillation; Z79.01 Long term (current) use of anticoagulants
CPT/HCPCS: 70450; 99284

== ENCOUNTER 2019-08-16 06:17 | Emergency (ER) | payer OTHER ==
--- NOTE | 2019-08-16 06:58 | ER ---
Nurse's Notes [facility] Name: Tim Ahn Age: 79 yrs Sex: Male : 1940 Arrival Date: 08/16/2019 Time: 06:19 Bed 6 Private MD: Per Torres T Diagnosis: Encounter for change or removal of nonsurgical wound dressing Presentation: 08/15 06:48 Chief complaint: Patient states: I HAD AN ACCIDENT YESTERDAY AND I CAME IN HERE. THEY rv PUT TAPE AND BANDAGE ON MY WOUND AND ASKED ME TO CHANGE IT AT HOME. I COULDN'T BECAUSE I CAN'T REACH THE TOP OF MY HEAD. Coronavirus screen: The patient has NOT traveled to a country currently being monitored by the [facility] within the last 14 days. Proceed with normal triage procedures. The patient has NOT had contact with any known and/or suspected case of coronavirus. Proceed with normal triage procedures. Ebola Screen: No symptoms or risks identified at this time. Initial Sepsis Screen: Does the patient meet any 2 criteria? No. Patient's initial sepsis screen is negative. Does the patient have a suspected source of infection? No. Patient's initial sepsis screen is negative. Risk Assessment: Do you want to hurt yourself or someone else? Patient reports no desire to harm self or others. 06:48 Method Of Arrival: Ambulatory rv 06:48 Acuity: LUCIEN 5 rv Triage Assessment: 06:52 General: Behavior is calm, cooperative. rv Historical: - Allergies: 06:50 Aggrenox; rv 06:50 Dexamethasone; rv 06:50 Diltiazem; rv 06:50 Diovan; rv 06:50 Enalapril; rv 06:50 Guanfacine; rv 06:50 Lisinopril; rv 06:50 Udhsudc-Ueu-Bxn Reductase Inhibitors; rv 06:50 valsartan; rv - PMHx: 06:50 Atrial Fib; BPH; Hypertension; SVT; rv - PSHx: 06:50 None; rv - Immunization history:: Adult Immunizations up to date. - Social history:: Smoking status: unknown. Screenin:51 Abuse screen: Denies threats or abuse. Denies injuries from another. Nutritional rv screening: No deficits noted. Tuberculosis screening: No symptoms or risk factors identified. Fall Risk None identified. Assessment: 06:50 General: Appears in no apparent distress. comfortable. Pain: Denies pain. Neuro: Level rv of Consciousness is awake, alert, obeys commands, Oriented to person, place, time, situation. Cardiovascular: Patient's skin is warm and dry. Respiratory: Airway is patent. Derm: Wound noted HEAD. Vital Signs: 06:48 BP 135 / 86; Pulse 76; Resp 16; Temp 98.7; Pulse Ox 100% on R/A; rv ED Course: 06:19 Patient arrived in ED. es 06:19 Per Torres MD is Private Physician. es 06:23 [facility] 06:23 Neno Alva MD is Attending Physician. [facility] 06:48 Donnie Juares, RN is Primary Nurse. rv 06:50 Triage completed. rv 06:50 Arm band placed on Patient placed in the treatment room, on a stretcher, Patient rv notified of wait time. 06:51 Patient has correct armband on for positive identification. Pulse ox on. NIBP on. rv 06:51 No provider procedures requiring assistance completed. Patient did not have IV access rv during this emergency room visit. Wound care: STERI STRIPS AND BANDAGE CHANGED. Administered Medications: No medications were administered Outcome: 06:52 Discharged to home ambulatory. rv 06:52 Condition: good 06:52 Discharge instructions given to patient, Instructed on discharge instructions, follow up and referral plans. wound care, Demonstrated understanding of instructions, follow-up care, wound care. 06:57 Discharge ordered by MD. [facility] 07:06 Patient left the ED. rv Signatures: Dash Eduardo PA PA [facility] Hina Daniels Ronaldo, RN RN rv
--- NOTE | 2019-08-16 06:58 | EDPHYS ---
Physician Documentation [facility] Name: Tim Ahn Age: 79 yrs Sex: Male : 1940 Arrival Date: 08/16/2019 Time: 06:19 Bed 6 Private MD: Per Torres T ED Physician Neno Alva HPI: 08/15 06:38 This 79 yrs old Male presents to ER via Unassigned with complaints of Bandage jmm change. 06:38 Onset: The symptoms/episode began/occurred acutely, yesterday. Associated signs and jmm symptoms: The patient has no apparent associated signs or symptoms. Modifying factors: The patient symptoms are alleviated by nothing, the patient symptoms are aggravated by nothing. Patient states receiving care for a superficial scalp laceration yesterday. Advised to change bandage daily. Patient unable to due to previous cervical injuries. . Historical: - Allergies: 06:50 Aggrenox; rv 06:50 Dexamethasone; rv 06:50 Diltiazem; rv 06:50 Diovan; rv 06:50 Enalapril; rv 06:50 Guanfacine; rv 06:50 Lisinopril; rv 06:50 Woomsww-Pwo-Pop Reductase Inhibitors; rv 06:50 valsartan; rv - PMHx: 06:50 Atrial Fib; BPH; Hypertension; SVT; rv - PSHx: 06:50 None; rv - Immunization history:: Adult Immunizations up to date. - Social history:: Smoking status: unknown. ROS: 06:38 Eyes: Negative for injury, pain, redness, and discharge, Cardiovascular: Negative for jmm chest pain, palpitations, and edema, Respiratory: Negative for shortness of breath, cough, wheezing, and pleuritic chest pain, Neuro: Negative for headache, weakness, numbness, tingling, and seizure. 06:38 All other systems are negative. Exam: 06:38 Constitutional: This is a well developed, well nourished patient who is awake, alert, jmm and in no acute distress. 06:38 Eyes: EOMI, no conjunctival erythema appreciated ENT: Moist Mucus Membranes Neck: Trachea midline, Supple Chest/axilla: Normal chest wall appearance and motion. Cardiovascular: Regular rate and rhythm. No edema appreciated Respiratory: Normal respirations, no respiratory distress appreciated Abdomen/GI: Non distended, soft Back: Normal ROM 06:38 Head/face: open wound noted to the right frontal scalp. 06:38 Skin: no erythema, purulent drainage, noted to the right frontal scalp wound. 06:38 Neuro: Orientation: is normal, Mentation: is normal, Memory: is normal. 06:38 Psych: Behavior/mood is pleasant, cooperative. Vital Signs: 06:48 BP 135 / 86; Pulse 76; Resp 16; Temp 98.7; Pulse Ox 100% on R/A; rv MDM: 06:[address] [facility] 06:55 Data reviewed: vital signs, nurses notes. Counseling: I had a detailed discussion with jody the patient and/or guardian regarding: the historical points, exam findings, and any diagnostic results supporting the discharge/admit diagnosis, the need for outpatient follow up, to return to the emergency department if symptoms worsen or persist or if there are any questions or concerns that arise at home. ED course: Steristrips replaced. Currently no signs of infection. Patient given wound infection return precautions. Patient understood and agrees with the plan of care. . Administered Medications: No medications were administered Disposition: 08/16 06:56 Co-signature as Attending Physician, Neno Alva MD I agree with the assessment and tw4 plan of care. Disposition: 08/16/19 06:57 Discharged to Home. Impression: Encounter for change or removal of nonsurgical wound dressing. - Condition is Stable. - Discharge Instructions: How to Change Your Dressing. - Medication Reconciliation Form, Thank You Letter, Antibiotic Education, Prescription Opioid Use form. - Follow up: Private Physician; When: 2 - 3 days; Reason: Recheck today's complaints, Continuance of care, Re-evaluation by your physician. Signatures: Dash Eduardo PA PA jmm Wadley, Terrence, MD MD tw4 Donnie Juares RN RN rv Corrections: (The following items were deleted from the chart) 08/15 07:06 06:57 08/16/2019 06:57 Discharged to Home. Impression: Encounter for change or removal rv of nonsurgical wound dressing. Condition is Stable. Forms are Medication Reconciliation Form, Thank You Letter, Antibiotic Education, Prescription Opioid Use. Follow up: Private Physician; When: 2 - 3 days; Reason: Recheck today's complaints, Continuance of care, Re-evaluation by your physician. jody
[2019-08-16 07:24] VITALS: BP 135/86; TEMP 98.7; O2SAT 100
== END 2019-08-16 07:06 | disposition home or self-care (01) ==
LOC: ER 06:17
DX: Z48.00 Encounter for change or removal of nonsurgical wound dressing (principal); Z88.8 Allergy status to other drugs, medicaments and biological substances
CPT/HCPCS: 99283

== ENCOUNTER 2021-03-21 11:05 | Emergency (ER) | payer OTHER ==
--- NOTE | 2021-03-21 11:50 | RAD REPORT ---
EXAM DESCRIPTION: CT - C Spine Wo Con - 03/21/2021 11:35 am CLINICAL HISTORY: PAIN COMPARISON: CT HEAD CSPINE MPR WO CONTRAST dated 04/06/[address] Scan was obtained of the cervical spine without contrast. Reformats were provided in th e sagittal and coronal plane. FINDINGS: No acute fracture of the cervical spine. No traumatic malalignment. No prevertebral edema. Multilevel cervical spondylosis with varying degrees of neural foraminal narrowing. Status post C3 t hrough C7 posterior laminectomy and fusion. No hardware complications are seen. No suspicious thyroid nodules or lymphadenopathy. The lung apices are clear. IMPRESSION: No fracture or traumatic malalignment of the cervical spine. C3 through C7 posterior yañez inectomy and fusion.
--- NOTE | 2021-03-21 12:12 | ER ---
Nurse's Notes [facility] Name: Tim Ahn Age: 80 yrs Sex: Male : 1940 Arrival Date: 03/21/2021 Time: 11:06 Bed 24 Private MD: Diagnosis: Fusion of spine, cervical region;Encounter for general adult medical examination without abnormal findings Presentation: 03/21 11:06 Chief complaint: EMS states: patient reported to them when he was getting out of bed ap3 this morning he heard his neck pop, and can move his neck greater than 70 degrees. Patient reports having a laminectomy in 2008, and was informed by his surgeon that if he can ever move his neck greater than 70 degrees, he needs to be evaluated immediately. Coronavirus screen: At this time, the client does not indicate any symptoms associated with coronavirus-19. Ebola Screen: No symptoms or risks identified at this time. Initial Sepsis Screen: Does the patient meet any 2 criteria? No. Patient's initial sepsis screen is negative. Does the patient have a suspected source of infection? No. Patient's initial sepsis screen is negative. Risk Assessment: Do you want to hurt yourself or someone else? Patient reports no desire to harm self or others. Onset of symptoms was March 21, 2021. 11:06 Method Of Arrival: EMS: [facility] ap3 11:06 Acuity: LUCIEN 3 ap3 Historical: - Allergies: 11:08 Aggrenox; ap3 11:08 Dexamethasone; ap3 11:08 Diltiazem; ap3 11:08 Diovan; ap3 11:08 Enalapril; ap3 11:08 guanfacine; ap3 11:08 Lisinopril; ap3 11:08 Veepibc-Opp-Skt Reductase Inhibitors; ap3 11:08 valsartan; ap3 - Home Meds: 11:08 Xarelto 15 mg Oral tab daily [Active]; amlodipine 10 mg tab 1 tab once daily [Active]; ap3 docusate sodium 100 mg Oral cap 1 cap once daily [Active]; fexofenadine 180 mg Oral tab 1 tab daily prn [Active]; melatonin 3 mg Oral tab nightly [Active]; Metamucil Smooth Texture Oral [Active]; methocarbamol 500 mg Oral tab [Active]; metoprolol succinate 50 mg Oral Tb24 1 tab [Active]; montelukast 10 mg Oral tab 1 tab daily prn [Active]; spironolactone 25 mg Oral tab 1 tab once daily [Active]; tamsulosin 0.4 mg Oral cp24 1 cap once daily [Active]; Multiple Vitamins Oral tab daily [Active]; duloxetine 30 mg oral CDRS [Active]; - PMHx: 11:08 Atrial Fib; BPH; Hypertension; SVT; ap3 - PSHx: 11:08 laminectomy; left knee; right hand; ap3 - Immunization history:: Adult Immunizations up to date, Client reports receiving the 2nd dose of the Covid vaccine, Date received: August 07, 2020. - Social history:: Smoking status: Patient denies any tobacco usage or history of. Screenin:12 Abuse screen: Denies threats or abuse. Nutritional screening: No deficits noted. ap3 Tuberculosis screening: No symptoms or risk factors identified. Fall Risk No fall in past 12 months (0 pts). No secondary diagnosis (0 pts). No IV (0 pts). Ambulatory Aid- None/Bed Rest/Nurse Assist (0 pts). Gait- Weak (10 pts.). Mental Status- Oriented to own ability (0 pts). Total Maldonado Fall Scale indicates No Risk (0-24 pts). Assessment: 11:19 General: Appears in no apparent distress. Behavior is calm, cooperative, appropriate ap3 for age. Pain: Denies pain. Neuro: Level of Consciousness is awake, alert, obeys commands, Oriented to person, place, time, situation, Teachers Assistant are equal bilaterally Speech is normal. Cardiovascular: Patient's skin is warm and dry. Respiratory: Airway is patent Respiratory effort is even, unlabored, Respiratory pattern is regular, symmetrical. GI: No signs and/or symptoms were reported involving the gastrointestinal system. : No signs and/or symptoms were reported regarding the genitourinary system. Vital Signs: 11:20 Pulse 110; Resp 17; Temp 98.9(O); Pulse Ox 100% ; Weight 84.82 kg; Height 5 ft. 09 in. ap3 (175.26 cm); 11:21 BP 170 / 102; ap3 11:20 Body Mass Index 27.61 (84.82 kg, 175.26 cm) ap3 ED Course: 11:06 Patient arrived in ED. ap3 11:08 Triage completed. ap3 11:12 Qasim Luna PA is PHCP. jr8 11:12 Genesis Ledesma MD is Attending Physician. jr8 11:12 Arm band placed on right wrist. ap3 11:21 Patient has correct armband on for positive identification. Bed in low position. Call ap3 light in reach. Side rails up X2. conveyor monitor on. Pulse ox on. NIBP on. Door closed. Noise minimized. 11:31 Melissa Cruz, RN is Primary Nurse. ap3 11:[address] via wheelchair. ap3 11:35 CT C Spine In Process Unspecified. EDMS 12:14 Nurse Practitioner and/or Physician Consulting Manager to see patient. ap3 12:38 No provider procedures requiring assistance completed. Patient did not have IV access ap3 during this emergency room visit. Administered Medications: No medications were administered Outcome: 12:11 Discharge ordered by . jr8 12:38 Discharged to home ambulatory, with family. ap3 12:38 Condition: good 12:38 Discharge instructions given to patient, Instructed on discharge instructions, follow up and referral plans. Demonstrated understanding of instructions, follow-up care. 12:38 Patient left the ED. ap3 Signatures: Dispatcher [employer] EDMS Qasim Luna PA PA jr8 Melissa Cruz, RN RN ap3
--- NOTE | 2021-03-21 12:12 | EDPHYS ---
Physician Documentation [facility] Name: Tim Ahn Age: 80 yrs Sex: Male : 1940 Arrival Date: 03/21/2021 Time: 11:06 Bed 24 Private MD: ED Physician Genesis Ledesma HPI: 03/21 13:10 This 80 yrs old Male presents to ER via EMS with complaints of popping jr8 sensation in neck. 13:10 Associated signs and symptoms: The patient has no apparent associated signs or jr8 symptoms. The pain does not radiate. Severity of symptoms: At their worst the symptoms were mild, in the emergency department the symptoms are unchanged. The patient has experienced a previous episode. The patient has not recently seen a physician. This is a 80-year-old male patient that came to the ER for popping sensation of the left side of his neck. Patient stated that he had a cervical fusion sometime ago and when getting out of bed this morning felt a pop. Since then he stated that he is able to turn his neck more. Stated that he currently does not have any pain, numbness, weakness, tingling.. Historical: - Allergies: 11:08 Aggrenox; ap3 11:08 Dexamethasone; ap3 11:08 Diltiazem; ap3 11:08 Diovan; ap3 11:08 Enalapril; ap3 11:08 guanfacine; ap3 11:08 Lisinopril; ap3 11:08 Xbgigjc-Seg-Ghn Reductase Inhibitors; ap3 11:08 valsartan; ap3 - Home Meds: 11:08 Xarelto 15 mg Oral tab daily [Active]; amlodipine 10 mg tab 1 tab once daily [Active]; ap3 docusate sodium 100 mg Oral cap 1 cap once daily [Active]; fexofenadine 180 mg Oral tab 1 tab daily prn [Active]; melatonin 3 mg Oral tab nightly [Active]; Metamucil Smooth Texture Oral [Active]; methocarbamol 500 mg Oral tab [Active]; metoprolol succinate 50 mg Oral Tb24 1 tab [Active]; montelukast 10 mg Oral tab 1 tab daily prn [Active]; spironolactone 25 mg Oral tab 1 tab once daily [Active]; tamsulosin 0.4 mg Oral cp24 1 cap once daily [Active]; Multiple Vitamins Oral tab daily [Active]; duloxetine 30 mg oral CDRS [Active]; - PMHx: 11:08 Atrial Fib; BPH; Hypertension; SVT; ap3 - PSHx: 11:08 laminectomy; left knee; right hand; ap3 - Immunization history:: Adult Immunizations up to date, Client reports receiving the 2nd dose of the Covid vaccine, Date received: August 07, 2020. - Social history:: Smoking status: Patient denies any tobacco usage or history of. ROS: 13:10 Eyes: Negative for injury, pain, redness, and discharge, ENT: Negative for injury, jr8 pain, and discharge, Neck: Negative for injury, pain, and swelling, Cardiovascular: Negative for chest pain, palpitations, and edema, Respiratory: Negative for shortness of breath, cough, wheezing, and pleuritic chest pain, Abdomen/GI: Negative for abdominal pain, nausea, vomiting, diarrhea, and constipation, Back: Negative for injury and pain, MS/Extremity: Negative for injury and deformity, Skin: Negative for injury, rash, and discoloration, Neuro: Negative for headache, weakness, numbness, tingling, and seizure. Exam: 13:10 Constitutional: This is a well developed, well nourished patient who is awake, alert, jr8 and in no acute distress. Neck: Trachea midline, no thyromegaly or masses palpated, and no cervical lymphadenopathy. Supple, full range of motion without nuchal rigidity, or vertebral point tenderness. No Meningismus. Cardiovascular: Regular rate and rhythm with a normal S1 and S2. No gallops, murmurs, or rubs. Normal PMI, no JVD. No pulse deficits. Respiratory: Lungs have equal breath sounds bilaterally, clear to auscultation and percussion. No rales, rhonchi or wheezes noted. No increased work of breathing, no retractions or nasal flaring. Back: No spinal tenderness. No costovertebral tenderness. Full range of motion. Skin: Warm, dry with normal turgor. Normal color with no rashes, no lesions, and no evidence of cellulitis. MS/ Extremity: Pulses equal, no cyanosis. Neurovascular intact. Full, normal range of motion. Neuro: Awake and alert, GCS 15, oriented to person, place, time, and situation. Cranial nerves II-XII grossly intact. Motor strength 5/5 in all extremities. Sensory grossly intact. Cerebellar exam normal. Vital Signs: 11:20 Pulse 110; Resp 17; Temp 98.9(O); Pulse Ox 100% ; Weight 84.82 kg; Height 5 ft. 09 in. ap3 (175.26 cm); 11:21 BP 170 / 102; ap3 11:20 Body Mass Index 27.61 (84.82 kg, 175.26 cm) ap3 MDM: 11:12 Patient medically screened. jr8 12:09 Data reviewed: vital signs, nurses notes, radiologic studies, CT scan. Data jr8 interpreted: Pulse oximetry: on room air is 100 %. Interpretation: normal. Counseling: I had a detailed discussion with the patient and/or guardian regarding: the historical points, exam findings, and any diagnostic results supporting the discharge/admit diagnosis, radiology results, the need for outpatient follow up, a family practitioner, a orthopedic surgeon, to return to the emergency department if symptoms worsen or persist or if there are any questions or concerns that arise at home. ED course: Discussed with patient that there is no acute fracture or malalignment from the C3-C7 region where he had his previous fusion. Patient currently in no pain. No other acute findings on physical exam. Patient had no focal deficits on exam either. Recommended follow-up with his PCP and/or orthospine.. 03/21 11:20 Order name: CT C Spine; Complete Time: 12:08 jr8 Administered Medications: No medications were administered Disposition Summary: 03/21/21 12:11 Discharge Ordered Location: Home jr8 Problem: new jr8 Symptoms: have improved jr8 Condition: Stable jr8 Diagnosis - Fusion of spine, cervical region jr8 - Encounter for general adult medical examination without abnormal findings jr8 Followup: jr8 - With: Private Physician - When: 2 - 3 days - Reason: Recheck today's complaints, Continuance of care, Re-evaluation by your physician Discharge Instructions: - Discharge Summary Sheet jr8 - Cervical Fusion jr8 Forms: - Medication Reconciliation Form jr8 - Thank You Letter jr8 - Antibiotic Education jr8 - Prescription Opioid Use jr8 Addendum: 03/22/2021 14:19 Co-signature as Attending Physician, Genesis Ledesma MD I agree with the assessment and s p3 plan of care. Signatures: Dispatcher [employer] Qasim Spangler PA PA jr8 Melissa Cruz RN RN ap3 Genesis Ledesma MD MD sp3
[2021-03-21 12:48] VITALS: TEMP 98.9; O2SAT 100
[2021-03-21 12:49] VITALS: BP 170/102
== END 2021-03-21 12:38 | disposition home or self-care (01) ==
LOC: ER 11:05
DX: M43.22 Fusion of spine, cervical region (principal); I10 Essential (primary) hypertension; I48.91 Unspecified atrial fibrillation; Z79.01 Long term (current) use of anticoagulants; Z88.8 Allergy status to other drugs, medicaments and biological substances
CPT/HCPCS: 72125; 99284

== ENCOUNTER 2021-04-30 17:20 | Emergency (ER) | payer OTHER ==
--- NOTE | 2021-04-30 18:25 | EDPHYS ---
Physician Documentation [facility] Name: Tim Ahn Age: 80 yrs Sex: Male : 1940 Arrival Date: 04/30/2021 Time: 17:51 Bed 17 Private MD: ED Physician Maximiliano Yoo HPI: 04/30 18:16 This 80 yrs old Male presents to ER via Unassigned with complaints of Mental melida Evaluation. 18:16 UPSET WITH FAMILY, GOT GUN OUT, NOT SUICIDAL NOT HOMICIDAL. Onset: The symptoms/episode melida began/occurred just prior to arrival. Severity of symptoms: At their worst the symptoms were mild in the emergency department the symptoms have improved markedly. The patient has not experienced similar symptoms in the past. Historical: - Allergies: 18:44 Aggrenox; iw 18:44 Dexamethasone; iw 18:44 Diltiazem; iw 18:44 Diovan; iw 18:44 Enalapril; iw 18:44 guanfacine; iw 18:44 Lisinopril; iw 18:44 Asvsqek-Gvj-Snq Reductase Inhibitors; iw 18:44 valsartan; iw - Home Meds: 18:44 amlodipine 10 mg tab 1 tab once daily [Active]; docusate sodium 100 mg Oral cap 1 cap iw once daily [Active]; duloxetine 30 mg Oral CDRS [Active]; fexofenadine 180 mg Oral tab 1 tab daily prn [Active]; melatonin 3 mg Oral tab nightly [Active]; Metamucil Smooth Texture Oral [Active]; methocarbamol 500 mg Oral tab [Active]; metoprolol succinate 50 mg Oral Tb24 1 tab [Active]; montelukast 10 mg Oral tab 1 tab daily prn [Active]; Multiple Vitamins Oral tab daily [Active]; spironolactone 25 mg Oral tab 1 tab once daily [Active]; tamsulosin 0.4 mg Oral cp24 1 cap once daily [Active]; Xarelto 15 mg Oral tab daily [Active]; - PMHx: 18:44 Atrial Fib; BPH; Hypertension; SVT; iw - PSHx: 18:44 laminectomy; left knee; right hand; iw - Family history:: not pertinent. ROS: 18:16 Constitutional: Negative for fever, chills, and weight loss, Eyes: Negative for injury, melida pain, redness, and discharge, ENT: Negative for injury, pain, and discharge, Neck: Negative for injury, pain, and swelling, Cardiovascular: Negative for chest pain, palpitations, and edema, Respiratory: Negative for shortness of breath, cough, wheezing, and pleuritic chest pain, Abdomen/GI: Negative for abdominal pain, nausea, vomiting, diarrhea, and constipation, Back: Negative for injury and pain, : Negative for injury, bleeding, discharge, and swelling, MS/Extremity: Negative for injury and deformity, Skin: Negative for injury, rash, and discoloration, Neuro: Negative for headache, weakness, numbness, tingling, and seizure, Psych: Negative for depression, anxiety, suicide ideation, homicidal ideation, and hallucinations, Allergy/Immunology: Negative for hives, rash, and allergies, Endocrine: Negative for neck swelling, polydipsia, polyuria, polyphagia, and marked weight changes, Hematologic/Lymphatic: Negative for swollen nodes, abnormal bleeding, and unusual bruising. Exam: 18:16 Constitutional: This is a well developed, well nourished patient who is awake, alert, melida and in no acute distress. Head/Face: Normocephalic, atraumatic. Eyes: Pupils equal round and reactive to light, extra-ocular motions intact. Lids and lashes normal. Conjunctiva and sclera are non-icteric and not injected. Cornea within normal limits. Periorbital areas with no swelling, redness, or edema. ENT: Nares patent. No nasal discharge, no septal abnormalities noted. Tympanic membranes are normal and external auditory canals are clear. Oropharynx with no redness, swelling, or masses, exudates, or evidence of obstruction, uvula midline. Mucous membranes moist. Neck: Trachea midline, no thyromegaly or masses palpated, and no cervical lymphadenopathy. Supple, full range of motion without nuchal rigidity, or vertebral point tenderness. No Meningismus. Chest/axilla: Normal chest wall appearance and motion. Nontender with no deformity. No lesions are appreciated. Cardiovascular: Regular rate and rhythm with a normal S1 and S2. No gallops, murmurs, or rubs. Normal PMI, no JVD. No pulse deficits. Respiratory: Lungs have equal breath sounds bilaterally, clear to auscultation and percussion. No rales, rhonchi or wheezes noted. No increased work of breathing, no retractions or nasal flaring. Abdomen/GI: Soft, non-tender, with normal bowel sounds. No distension or tympany. No guarding or rebound. No evidence of tenderness throughout. Back: No spinal tenderness. No costovertebral tenderness. Full range of motion. Male : Normal genitalia with no discharge or lesions. Skin: Warm, dry with normal turgor. Normal color with no rashes, no lesions, and no evidence of cellulitis. MS/ Extremity: Pulses equal, no cyanosis. Neurovascular intact. Full, normal range of motion. Neuro: Awake and alert, GCS 15, oriented to person, place, time, and situation. Cranial nerves II-XII grossly intact. Motor strength 5/5 in all extremities. Sensory grossly intact. Cerebellar exam normal. Normal gait. Psych: Awake, alert, with orientation to person, place and time. Behavior, mood, and affect are within normal limits. 18:21 Psych: Behavior/mood is pleasant, cooperative, Affect is calm, Oriented to person, melida place, time, Patient has no thoughts/intents to harm self or others. Judgement / Insight is normal. Memory is normal. Delusions/hallucinations are not present. Vital Signs: 18:40 BP 148 / 89; Pulse 79; Resp 16; Temp 98.0; Pulse Ox 97% on R/A; iw 18:44 BP 148 / 79; Pulse 89; iw MDM: 18:03 [facility]. [facility] 18:21 Differential Diagnosis. Data reviewed: vital signs, nurses notes. Data interpreted: [facility] media monitor: not applicable for this patient encounter. rate is 65 beats/min, rhythm is regular, Pulse oximetry: on room air is 100 %. Counseling: I had a detailed discussion with the patient and/or guardian regarding: the historical points, exam findings, and any diagnostic results supporting the discharge/admit diagnosis, the need for outpatient follow up, for definitive care, a family practitioner, a psychiatrist. 04/30 18:05 Order name: EKG - Nurse/Tech em04/30 18:05 Order name: IV Saline Lock em04/30 18:05 Order name: Labs collected and sent 04/30 18:05 Order name: Suicide Screening ([place]) em04/30 18:05 Order name: Urine Dipstick-Ancillary (obtain specimen) em1 Administered Medications: No medications were administered Disposition Summary: 04/30/21 18:23 Discharge Ordered Location: [facility] Problem: new melida Symptoms: have improved melida Condition: Stable melida Diagnosis - Other depressive episodes - UPSET, NOT SUICIDAL /NOT HOMICIDAL(04/30/21 18:24) melida Followup: melida - With: Private Physician - When: 2 - 3 days - Reason: Recheck today's complaints, Continuance of care, Re-evaluation by your physician Followup: melida - With: Volodymyr Sy MD - When: 2 - 3 days - Reason: Recheck today's complaints, Re-evaluation by your physician Discharge Instructions: - Discharge Summary Sheet melida - Supporting Someone With Depression melida - Managing Depression, Adult melida Forms: - Medication Reconciliation Form melida - Thank You Letter melida - Antibiotic Education melida - Prescription Opioid Use melida Signatures: Dispatcher [employer] EDMaximiliano Turner MD MD cha Williams, Irene, Jorge Marrero RN em1 Corrections: (The following items were deleted from the chart) 18:24 18:23 Other depressive episodes - UPSET melida montez
--- NOTE | 2021-04-30 18:48 | ER ---
Nurse's Notes [facility] Name: Tim Ahn Age: 80 yrs Sex: Male : 1940 Arrival Date: 04/30/2021 Time: 17:51 Bed 17 Private MD: Diagnosis: Other depressive episodes-UPSET, NOT SUICIDAL /NOT HOMICIDAL Presentation: 04/30 18:44 Acuity: LUCIEN 4 iw 18:44 Chief complaint: Mental Health officer reports pt got upset with his family and made a iw statement that if they tried to put him in a fpc he would shoot them. Coronavirus screen: At this time, the client does not indicate any symptoms associated with coronavirus-19. Ebola Screen: Patient negative for fever greater than or equal to 101.5 degrees Fahrenheit, and additional compatible Ebola Virus Disease symptoms Patient denies exposure to infectious person. Patient denies travel to an Ebola-affected area in the 21 days before illness onset. No symptoms or risks identified at this time. Initial Sepsis Screen: Does the patient meet any 2 criteria? No. Patient's initial sepsis screen is negative. Does the patient have a suspected source of infection? No. Patient's initial sepsis screen is negative. Risk Assessment: Do you want to hurt yourself or someone else?. Onset of symptoms was April 30, 2021. 18:44 Method Of Arrival: [employer] iw Historical: - Allergies: 18:44 Aggrenox; iw 18:44 Dexamethasone; iw 18:44 Diltiazem; iw 18:44 Diovan; iw 18:44 Enalapril; iw 18:44 guanfacine; iw 18:44 Lisinopril; iw 18:44 Kslpfdf-Qvi-Hba Reductase Inhibitors; iw 18:44 valsartan; iw - Home Meds: 18:44 amlodipine 10 mg tab 1 tab once daily [Active]; docusate sodium 100 mg Oral cap 1 cap iw once daily [Active]; duloxetine 30 mg Oral CDRS [Active]; fexofenadine 180 mg Oral tab 1 tab daily prn [Active]; melatonin 3 mg Oral tab nightly [Active]; Metamucil Smooth Texture Oral [Active]; methocarbamol 500 mg Oral tab [Active]; metoprolol succinate 50 mg Oral Tb24 1 tab [Active]; montelukast 10 mg Oral tab 1 tab daily prn [Active]; Multiple Vitamins Oral tab daily [Active]; spironolactone 25 mg Oral tab 1 tab once daily [Active]; tamsulosin 0.4 mg Oral cp24 1 cap once daily [Active]; Xarelto 15 mg Oral tab daily [Active]; - PMHx: 18:44 Atrial Fib; BPH; Hypertension; SVT; iw - PSHx: 18:44 laminectomy; left knee; right hand; iw - Family history:: not pertinent. Screenin:45 Nutritional screening: No deficits noted. Tuberculosis screening: No symptoms or risk iw factors identified. Assessment: 18:35 General: Appears in no apparent distress. comfortable, Behavior is calm, cooperative. iw Pain: Denies pain. 18:35 Neuro: Level of Consciousness is awake, alert, obeys commands, Oriented to person, iw place, time, situation, Moves all extremities. Full function. Cardiovascular: Patient's skin is warm and dry. Respiratory: Respiratory effort is even, unlabored, Respiratory pattern is regular, symmetrical. Derm: Skin is intact, is healthy with good turgor. Musculoskeletal: Range of motion: intact in all extremities. 18:40 Reassessment: offered to call a taxi for patient, he refused, stated that he will walk iw home. Vital Signs: 18:40 BP 148 / 89; Pulse 79; Resp 16; Temp 98.0; Pulse Ox 97% on R/A; iw 18:44 BP 148 / 79; Pulse 89; iw ED Course: 17:51 Patient arrived in ED. mr 18:03 Maximiliano Yoo MD is Attending Physician. [facility] 18:22 Volodymyr Sy MD is Referral Physician. melida 18:44 Lesley Villanueva, RN is Primary Nurse. iw 18:44 Triage completed. iw 18:44 Arm band placed on. iw Administered Medications: No medications were administered Outcome: 18:23 [facility]charge ordered by [facility] 18:45 Discharged to home ambulatory. iw 18:45 Condition: good 18:45 Discharge instructions given to patient, Instructed on discharge instructions, follow up and referral plans. Demonstrated understanding of instructions. 18:47 Patient left the ED. iw Signatures: Maximiliano Yoo MD MD cha Rivera, Mary mr Lesley Villanueva, RN RN iw Corrections: (The following items were deleted from the chart) 05/01 10:03 04/30 18:35 Pain: Denies pain. iw iw
== END 2021-04-30 18:47 | disposition home or self-care (01) ==
LOC: ER 17:20
DX: F32.89 Other specified depressive episodes (principal); I10 Essential (primary) hypertension; I48.91 Unspecified atrial fibrillation; Z79.01 Long term (current) use of anticoagulants; Z88.8 Allergy status to other drugs, medicaments and biological substances
CPT/HCPCS: 99281

== ENCOUNTER 2022-07-17 05:20 | Emergency (ER) | payer OTHER ==
--- NOTE | 2022-07-17 06:39 | EDPHYS ---
Physician Documentation [facility] Name: Tim Ahn Age: 82 yrs Sex: Male : 1940 Arrival Date: 07/17/2022 Time: 05:25 Bed 7 Private MD: ED Physician Elier Villalobos HPI: 07/17 06:09 This 82 yrs old Male presents to ER via EMS with complaints of Flank Pain, Back Pain. ms3 06:09 82-year-old male with past medical history of atrial fibrillation, BPH, hypertension, ms3 SVT, dementia, COPD presents via [facility] status post falling onto the solo of his car on . Patient states he awoke this morning with left rib pain where he hit his car. Patient denies pain at this time. Patient states the pain was worse with movement.. Historical: - Allergies: 05:41 Aggrenox; ll3 05:41 Dexamethasone; ll3 05:41 Diltiazem; ll3 05:41 Diovan; ll3 05:41 Enalapril; ll3 05:41 guanfacine; ll3 05:41 Lisinopril; ll3 05:41 Jsqyufh-Sjk-Uot Reductase Inhibitors; ll3 05:41 valsartan; ll3 - Home Meds: 05:41 Unable to obtain [Active]; ll3 - PMHx: 05:41 Atrial Fib; BPH; Hypertension; SVT; Dementia; COPD; ll3 - PSHx: 05:41 laminectomy; left knee; right hand; ll3 - Immunization history:: Client reports receiving the 2nd dose of the Covid vaccine. - Social history:: Smoking status: Patient/guardian denies using tobacco. ROS: 06:09 Constitutional: Negative for fever, and chills. Neck: Negative for injury, pain, and ms3 swelling, Cardiovascular: Negative for chest pain, and palpitations. Respiratory: Negative for shortness of breath, cough, wheezing, and pleuritic chest pain, Abdomen/GI: Negative for abdominal pain, nausea, vomiting, diarrhea, and constipation. 06:09 MS/extremity: Positive for chest pain. 06:09 All other systems are negative. Exam: 06:09 Constitutional: This is a well developed, well nourished patient who is awake, alert, ms3 and in no acute distress. Head/Face: Normocephalic, atraumatic. Cardiovascular: Regular rate and rhythm with a normal S1 and S2. No gallops, murmurs, or rubs. Normal PMI, no JVD. No pulse deficits. Respiratory: Lungs have equal breath sounds bilaterally, clear to auscultation and percussion. No rales, rhonchi or wheezes noted. No increased work of breathing, no retractions or nasal flaring. Abdomen/GI: Soft, non-tender, with normal bowel sounds. No distension or tympany. No guarding or rebound. No evidence of tenderness throughout. 06:09 Chest/axilla: Inspection: normal, Palpation: tenderness, that is moderate, of the left lower chest, Ecchymosis- left lower chest. Vital Signs: 05:38 BP 176 / 99; Pulse 58; Resp 17; Temp 97.5(O); Pulse Ox 99% on R/A; Weight 92.08 kg (R); ll3 Height 5 ft. 11 in. (180.34 cm) (R); Pain 7/10; 05:38 Body Mass Index 28.31 (92.08 kg, 180.34 cm) ll3 MDM: 05:37 Patient medically screened. ms3 07:41 Differential diagnosis: Rib fracture versus contusion versus pneumothorax versus ms3 hemothorax. Data reviewed: vital signs, nurses notes, radiologic studies, plain films, and as a result, I will discharge patient. Counseling: I had a detailed discussion with the patient and/or guardian regarding: the historical points, exam findings, and any diagnostic results supporting the discharge/admit diagnosis, radiology results, the need for outpatient follow up, to return to the emergency department if symptoms worsen or persist or if there are any questions or concerns that arise at home. ED course: Discussed x-ray findings with patient. Patient to follow-up with his primary care physician in 2 to 3 days. All questions were answered. Return precautions discussed include worsening symptoms, or any other concerns. On reevaluation patient is alert, in no apparent distress, nontoxic, ambulatory in emergency department, speaking full sentences. 07/17 05:39 Order name: Chest Pa And Lat (2 Views) XRAY ms3 Administered Medications: 06:50 Drug: Tetanus Toxoid,Adsorbed 0.5 ml {Manual Qa Tester: [employer] ([employer]). Exp: ke1 02/25/2023. Lot #: [id number]. } Route: IM; Site: left deltoid; 06:51 Follow up: Response: Medication administered at discharge. ke1 Disposition Summary: 07/17/22 06:38 Discharge Ordered Location: Home ms3 Condition: Stable ms3 Diagnosis - Chest wall pain ms3 - contusion ms3 - abrasions ms3 Followup: ms3 - With: Alfredito Ledesma DO - When: 2 - 3 days - Reason: Recheck today's complaints Discharge Instructions: - Discharge Summary Sheet ms3 - Musculoskeletal Pain ms3 - Abrasion, Pmrl-nw-Odld ms3 Forms: - Medication Reconciliation Form ms3 - Thank You Letter ms3 - Antibiotic Education ms3 - Prescription Opioid Use ms3 Signatures: Dispatcher [employer] EDElier Macdonald DO DO ms3 Dennys Mariano RN RN ll3 Ana Laura Ocampo RN RN ke1
--- NOTE | 2022-07-17 06:39 | ER ---
Nurse's Notes [facility] Name: Tim Ahn Age: 82 yrs Sex: Male : 1940 Arrival Date: 07/17/2022 Time: 05:25 Bed 7 Private MD: Diagnosis: Chest wall pain;contusion;abrasions Presentation: 07/17 05:38 Chief complaint: EMS states: Toned out for left rib pain, Pt states had a flat tire and ll3 fell off of solo on car and landed on left side, bruising noted to left rib area, states pain is 7/10 when moving. Coronavirus screen: Vaccine status: Patient reports receiving the 2nd dose of the covid vaccine. At this time, the client does not indicate any symptoms associated with coronavirus-19. Ebola Screen: No symptoms or risks identified at this time. Initial Sepsis Screen: Does the patient meet any 2 criteria? No. Patient's initial sepsis screen is negative. Does the patient have a suspected source of infection? No. Patient's initial sepsis screen is negative. Risk Assessment: Do you want to hurt yourself or someone else? Patient reports no desire to harm self or others. Onset of symptoms was July 13, 2022. 05:38 Method Of Arrival: EMS: [facility] 3 05:38 Acuity: LUCIEN 3 ll3 Triage Assessment: 05:45 General: Appears in no apparent distress. Behavior is appropriate for age. ke1 Musculoskeletal: Capillary refill < 3 seconds, Range of motion: intact in all extremities. 05:45 Pain: Complains of pain in L ribs Pain currently is 0 out of 10 on a pain scale. at ke1 worst was 7 out of 10 on a pain scale. level that patient reports is acceptable is 1 out of 10 on a pain scale. Aggravated by increased activity, walking. Historical: - Allergies: 05:41 Aggrenox; ll3 05:41 Dexamethasone; ll3 05:41 Diltiazem; ll3 05:41 Diovan; ll3 05:41 Enalapril; ll3 05:41 guanfacine; ll3 05:41 Lisinopril; ll3 05:41 Brvrbcz-Aed-Zrt Reductase Inhibitors; ll3 05:41 valsartan; ll3 - Home Meds: 05:41 Unable to obtain [Active]; ll3 - PMHx: 05:41 Atrial Fib; BPH; Hypertension; SVT; Dementia; COPD; ll3 - PSHx: 05:41 laminectomy; left knee; right hand; ll3 - Immunization history:: Client reports receiving the 2nd dose of the Covid vaccine. - Social history:: Smoking status: Patient/guardian denies using tobacco. Screenin:45 [facility] ED Fall Risk Assessment (Adult) History of falling in the last 3 months, ke1 including since admission Yes- single mechanical fall (1 pt) Confusion or Disorientation No (0 pts) Intoxicated or Sedated No (0 pts) Impaired Gait No (0 pts) Mobility Assist Device Used No (0 pt) Altered Elimination No (0 pt) Score/Fall Risk Level 0 - 2 = Low Risk. Abuse screen: Denies threats or abuse. Nutritional screening: No deficits noted. Tuberculosis screening: No symptoms or risk factors identified. Assessment: 06:13 Neuro: Level of Consciousness is awake, alert, Oriented to person, place, time, ke1 situation. 06:20 Reassessment: No changes from previously documented assessment. ke1 Vital Signs: 05:38 BP 176 / 99; Pulse 58; Resp 17; Temp 97.5(O); Pulse Ox 99% on R/A; Weight 92.08 kg (R); ll3 Height 5 ft. 11 in. (180.34 cm) (R); Pain 7/10; 05:38 Body Mass Index 28.31 (92.08 kg, 180.34 cm) ll3 ED Course: 05:25 Patient arrived in ED. ja2 05:26 Elier Villalobos DO is Attending Physician. ms3 05:36 Florentino Alvarado, RN is Primary Nurse. jb4 05:41 Triage completed. ll3 05:41 Arm band placed on Patient placed in an exam room, on a stretcher, on pulse oximetry. ll3 05:45 Bed in low position. Call light in reach. ke1 06:37 Alfredito Ledesma DO is Referral Physician. ms3 06:52 No provider procedures requiring assistance completed. Patient did not have IV access ke1 during this emergency room visit. Administered Medications: 06:50 Drug: Tetanus Toxoid,Adsorbed 0.5 ml {Policy Checker: N-1-1 ([employer]). Exp: ke1 02/25/2023. Lot #: [id number]. } Route: IM; Site: left deltoid; 06:51 Follow up: Response: Medication administered at discharge. ke1 Medication: 06:52 Vaccine Information Statement (VIS) provided today. Questions and/or concerns ke1 addressed. VIS edition date: July 17, 2022. Outcome: 06:38 Discharge ordered by . ms3 06:52 Discharged to home ambulatory. ke1 06:52 Condition: good 06:52 Discharge instructions given to patient. 06:52 Patient left the ED. ke1 Signatures: Florentino Alvarado, RN RN jb4 Elier Villalobos DO DO ms3 Elaina Valdes2 Dennys Mariano RN RN ll3 Ana Laura Ocampo RN RN ke1 Corrections: (The following items were deleted from the chart) 06:12 05:45 [facility] ED Fall Risk Assessment (Adult) History of falling in the last 3 months, ke1 including since admission No falls in past 3 months (0 pts) Confusion or Disorientation No (0 pts) Intoxicated or Sedated No (0 pts) Impaired Gait No (0 pts) Mobility Assist Device Used No (0 pt) Altered Elimination No (0 pt) Score/Fall Risk Level 0 - 2 = Low Risk ke1
[2022-07-17] MEDS ORDERED: TDAP (DIPHTH,PERTUSS(ACELL),TET VAC) 0.5 ML VIAL IMVAC ONE (06:49)
[2022-07-17 06:57] VITALS: BP 176/99; TEMP 97.5; O2SAT 99
--- NOTE | 2022-07-18 11:43 | RAD REPORT ---
XR Chest, 2 Views CLINICAL HISTORY: The patient is 82 years old and is Male; TRAUMA TECHNIQUE: Frontal and lateral views of the chest. COMPARISON: No relevant prior studies available. FINDINGS: Lungs: Prominent interstitial markings. No consolidation. Pleural space: Unremarkable. No pneumothorax. Heart: Unremarkable. Mediastinum: Unremarkable. Bones/joints: Postsurgical changes in the cervical spine. Disc space narrowing with degenerative endplate changes in the spine. Vasculature: Aortic calcification. IMPRESSION: No acute findings in the chest. Electronically signed by: Monster Koch MD 07/17/2022 6:13 AM [employer]NCH[employer] Due to temporary technical issues with the PACS/Fluency reporting system, reports are being signed by the in house radiologists without review as a courtesy to insure prompt reporting. The interpreting radiologist is fully responsible for the content of the report.
== END 2022-07-17 06:52 | disposition home or self-care (01) ==
LOC: ER 05:20
DX: S20.212A Contusion of left front wall of thorax, initial encounter (principal); S20.312A Abrasion of left front wall of thorax, initial encounter; Z23 Encounter for immunization; I10 Essential (primary) hypertension; F03.90 Unspecified dementia, unspecified severity, without behavioral disturbance, psychotic disturbance, mood disturbance, and anxiety; Z88.8 Allergy status to other drugs, medicaments and biological substances
CPT/HCPCS: 71046; 90471; 99283

== ENCOUNTER 2022-08-05 03:17 | Inpatient (IN) | payer OTHER ==
[2022-08-05 03:52] LABS: Protime INR 1.25
[2022-08-05 03:55] LABS: Absolute Lymphocytes (CBC) 1.4 K/uL (0.7-4.9); Hematocrit 43.8 % (39.6-49.0); Lymphocytes % 22.3 % (15.3-44.8); MCV 92.2 fL (80-100); MPV 7.9 fL (7.6-11.3); RBC Red Blood Cell Count 4.76 M/uL (4.33-5.43)
[2022-08-05 04:11] LABS: Albumin 3.2 g/dL (3.4-5.0); Bilirubin Direct 0.1 mg/dL (0-0.2); Bilirubin Total 0.5 mg/dL (0.2-1.0); Protein, Total 6.3 g/dL (6.4-8.2); Troponin High Sensitivity 33.6 pg/mL (<58.9)
--- NOTE | 2022-08-05 06:47 | ER ---
Nurse's Notes [facility] Name: Tim Ahn Age: 82 yrs Sex: Male : 1940 Arrival Date: 08/05/2022 Time: 03:18 Bed 6 Private MD: Diagnosis: Diastolic (congestive) heart failure;Chronic atrial fibrillation;Angina pectoris, unspecified Presentation: 08/05 03:20 Chief complaint: EMS states: called out for chest pain that started about 0200 AM that as6 woke pt from sleep. EMS gave 324 asa and 0.4 nitro. Coronavirus screen: At this time, the client does not indicate any symptoms associated with coronavirus-19. Ebola Screen: No symptoms or risks identified at this time. Initial Sepsis Screen: Does the patient meet any 2 criteria? No. Patient's initial sepsis screen is negative. Does the patient have a suspected source of infection? No. Patient's initial sepsis screen is negative. Risk Assessment: Do you want to hurt yourself or someone else? Patient reports no desire to harm self or others. Onset of symptoms was August 05, 2022 at 02:00. Care prior to arrival: Medication(s) given: ASA, 81 mg, x 4, Nitroglycerin, 0.4 mg SL x 1, IV initiated. 20 GA, in the right antecubital area, Glucose check: 96. 03:20 Acuity: LUCIEN 3 as6 03:20 Method Of Arrival: EMS: [facility] as6 Historical: - Allergies: 03:35 Aggrenox; as6 03:35 Dexamethasone; as6 03:35 Diltiazem; as6 03:35 Diovan; as6 03:35 Enalapril; as6 03:35 guanfacine; as6 03:35 Lisinopril; as6 03:35 Mejwasb-Ukz-Maf Reductase Inhibitors; as6 03:35 valsartan; as6 - Home Meds: 11:07 metoprolol succinate 50 mg Oral Tb24 1 tab twice a day [Active]; tamsulosin 0.4 mg Oral jl7 cp24 1 cap once daily [Active]; Xarelto 15 mg Oral tab 1 tab daily [Active]; duloxetine 60 mg oral CDRS 1 cap nightly [Active]; Breztri Aerosphere Inhaler 2 puff daily [Active]; melatonin 5 mg Oral tab nightly [Active]; - PMHx: 03:35 Atrial Fib; Hypertension; SVT; Dementia; COPD; BPH; as6 - PSHx: 03:35 laminectomy; left knee; right hand; as6 - Immunization history:: Adult Immunizations up to date. - Social history:: Smoking status: Patient denies any tobacco usage or history of. - Hospitalizations: : No recent hospitalization is reported. Patient was hospitalized on 08/15/2018 for hypertensive urgency and atrial fibrillation with RVR. Screenin:37 [facility] ED Fall Risk Assessment (Adult) Score/Fall Risk Level 0 - 2 = Low Risk. Abuse as6 screen: Denies threats or abuse. Denies injuries from another. Nutritional screening: No deficits noted. Tuberculosis screening: No symptoms or risk factors identified. Assessment: 03:37 General: Appears in no apparent distress. Behavior is calm, cooperative. Pain: Denies as6 pain. Neuro: Level of Consciousness is awake, alert, obeys commands, confused, Oriented to person, place, situation. Cardiovascular: Capillary refill < 3 seconds Patient's skin is warm and dry. Rhythm is atrial fibrillation. Respiratory: Respiratory effort is even, unlabored, Respiratory pattern is regular, symmetrical. 05:16 General: pt resting at this time . as6 06:56 General: Appears in no apparent distress. comfortable. Pain: Denies pain. Neuro: No lg3 deficits noted. Level of Consciousness is awake, alert, obeys commands, Oriented to person, place, time, situation. Cardiovascular: No deficits noted. Denies chest pain, Capillary refill < 3 seconds Clubbing of nail beds is absent Patient's skin is warm and dry. Respiratory: No deficits noted. Airway is patent Respiratory effort is even, unlabored, Respiratory pattern is regular, symmetrical. 07:40 General: Appears in no apparent distress. comfortable, Behavior is calm, cooperative. vg1 Pain: Denies pain. Neuro: Level of Consciousness is awake, alert, obeys commands, Oriented to person, place, time, situation. Cardiovascular: Patient's skin is warm and dry. Respiratory: Airway is patent Respiratory effort is even, unlabored. GI: Abdomen is round Patient currently denies nausea, vomiting. : No signs and/or symptoms were reported regarding the genitourinary system. EENT: No signs and/or symptoms were reported regarding the EENT system. Derm: Skin is pink, warm \T\ dry. Musculoskeletal: Circulation, motion, and sensation intact. 08:03 Reassessment: Dr Doretha Renae at bedside. vg1 10:51 Reassessment: attempted to call report. vg1 Vital Signs: 03:20 BP 148 / 84; Pulse 85; Resp 16 S; Temp 97.9(O); Pulse Ox 97% on R/A; Weight 91.63 kg as6 (R); Height 6 ft. 0 in. (182.88 cm) (R); Pain 0/10; 05:16 BP 143 / 80; Pulse 65; Resp 14 S; Pulse Ox 97% on R/A; as6 06:09 BP 141 / 89; Pulse 69; Resp 16 S; Pulse Ox 97% on R/A; as6 07:30 BP 117 / 77; Pulse 71; Resp 22; Pulse Ox 97% on R/A; vg1 03:20 Body Mass Index 27.40 (91.63 kg, 182.88 cm) as6 ED Course: 03:18 Patient arrived in ED. la1 03:18 Maninder Flores MD is Attending Physician. sp4 03:24 Khai Landeros, BRIDGER is Primary Nurse. as6 03:34 Troponin HS Sent. as6 03:34 PT-INR Sent. as6 03:34 NT PRO-BNP Sent. as6 03:34 Magnesium Sent. as6 03:34 LFT's Sent. as6 03:34 CBC with Diff Sent. as6 03:34 Basic Metabolic Panel Sent. as6 03:34 Arm band placed on. as6 03:37 Triage completed. as6 03:37 Placed in gown. Bed in low position. Call light in reach. Side rails up X2. Client as6 placed on continuous cardiac and pulse oximetry monitoring. NIBP monitoring applied. Warm blanket given. 03:38 Maintain EMS IV. Dressing intact. Good blood return noted. Site clean \T\ dry. Gauge \T\ as 6 site: 20G RAC. 06:45 Jas Renae MD is Hospitalizing Provider. sp4 06:52 SARS RAPID Sent. lg3 07:40 Primary Nurse role handed off by Khai Landeros, BRIDGER vg1 07:40 Sahra Peña, RN is Primary Nurse. vg1 09:28 No provider procedures requiring assistance completed. Patient admitted, IV remains in vg1 place. Administered Medications: 06:52 Drug: HydrALAZINE 50 mg Route: PO; lg3 06:52 Drug: Lasix (furosemide) 40 mg Route: IVP; Site: right antecubital; lg3 Medication: 03:37 VIS not applicable for this client. as6 Outcome: 06:47 Decision to Hospitalize by Provider. sp4 09:28 Admitted to ER Hold. Please see [facility] for further documentation. vg1 09:28 Condition: good 09:28 Instructed on the need for admit. 11:19 Admitted to Tele accompanied by tech, via wheelchair, room 406, with chart, Report vg1 called to Cathryn SPARKS 11:36 Patient left the ED. vg1 Signatures: Nate Rachel, DRAMA THERAPIST-C DRAMA THERAPIST-Cla1 Justino Mills RN RN jl7 Stefani Dubose RN RN lg3 Sahra Peña, RN RN vg1 Khai Landeros RN RN as6 Maninder Flores MD MD sp4
--- NOTE | 2022-08-05 06:48 | EDPHYS ---
Physician Documentation [facility] Name: Tim Ahn Age: 82 yrs Sex: Male : 1940 Arrival Date: 08/05/2022 Time: 03:18 Bed 6 Private MD: ED Physician Maninder Flores HPI: 08/05 03:19 This 82 yrs old Male presents to ER via Unassigned with complaints of chest sp4 pain at rest . 03:19 82-year-old male with history of hypertension presents with acute onset of left lower sp4 chest pain starting at rest on awakening this morning. Patient reports moderate chest pain 3 out of 10 on a scale. . 03:23 Patient arrived with EMS. EMS noticed that patient has atrial fibrillation on the sp4 monitor. Patient does have history of atrial fibrillation. He reports that he could not feel his heartbeat today which made him feel alarmed.. Historical: - Allergies: 03:35 Aggrenox; as6 03:35 Dexamethasone; as6 03:35 Diltiazem; as6 03:35 Diovan; as6 03:35 Enalapril; as6 03:35 guanfacine; as6 03:35 Lisinopril; as6 03:35 Hmrmciv-Iwz-Qyg Reductase Inhibitors; as6 03:35 valsartan; as6 - Home Meds: 11:07 metoprolol succinate 50 mg Oral Tb24 1 tab twice a day [Active]; tamsulosin 0.4 mg Oral jl7 cp24 1 cap once daily [Active]; Xarelto 15 mg Oral tab 1 tab daily [Active]; duloxetine 60 mg oral CDRS 1 cap nightly [Active]; Breztri Aerosphere Inhaler 2 puff daily [Active]; melatonin 5 mg Oral tab nightly [Active]; - PMHx: 03:35 Atrial Fib; Hypertension; SVT; Dementia; COPD; BPH; as6 - PSHx: 03:35 laminectomy; left knee; right hand; as6 - Immunization history:: Adult Immunizations up to date. - Social history:: Smoking status: Patient denies any tobacco usage or history of. - Hospitalizations: : No recent hospitalization is reported. Patient was hospitalized on 08/15/2018 for hypertensive urgency and atrial fibrillation with RVR. ROS: 06:36 Constitutional: Negative for fever, chills, and weight loss, Eyes: Negative for injury, sp4 pain, redness, and discharge, ENT: Negative for injury, pain, and discharge, Neck: Negative for injury, pain, and swelling, Cardiovascular: Negative for edema, positive for chest pain positive for palpitations positive for left lower chest pain and discomfort. Respiratory: Negative for shortness of breath, cough, wheezing, and pleuritic chest pain, Abdomen/GI: Negative for abdominal pain, nausea, vomiting, diarrhea, and constipation, Back: Negative for injury and pain, : Negative for injury, bleeding, discharge, and swelling, MS/Extremity: Negative for injury and deformity, Skin: Negative for injury, rash, and discoloration, Neuro: Negative for headache, weakness, numbness, tingling, and seizure, Psych: Negative for depression, anxiety, suicide ideation, homicidal ideation, and hallucinations, Allergy/Immunology: Negative for hives, rash, and allergies, Endocrine: Negative for neck swelling, polydipsia, polyuria, polyphagia, and marked weight changes, Hematologic/Lymphatic: Negative for swollen nodes, abnormal bleeding, and unusual bruising. Exam: 06:36 Constitutional: This is a well developed, well nourished patient who is awake, alert, sp4 and in no acute distress. Frail elderly patient nontoxic-appearing. Head/Face: Normocephalic, atraumatic. Eyes: Pupils equal round and reactive to light, extra-ocular motions intact. Lids and lashes normal. Conjunctiva and sclera are non-icteric and not injected. Cornea within normal limits. Periorbital areas with no swelling, redness, or edema. ENT: Nares patent. No nasal discharge, no septal abnormalities noted. Tympanic membranes are normal and external auditory canals are clear. Oropharynx with no redness, swelling, or masses, exudates, or evidence of obstruction, uvula midline. Mucous membranes moist. Neck: Trachea midline, no thyromegaly or masses palpated, and no cervical lymphadenopathy. Supple, full range of motion without nuchal rigidity, or vertebral point tenderness. No Meningismus. Jugular venous distention. Chest/axilla: Normal chest wall appearance and motion. Nontender with no deformity. No lesions are appreciated. Cardiovascular: Irregularly irregular rhythm No gallops, murmurs, or rubs. Normal PMI, positive JVD. No pulse deficits. Respiratory: Lungs have equal breath sounds bilaterally, clear to auscultation and percussion. No rales, rhonchi or wheezes noted. No increased work of breathing, no retractions or nasal flaring. Abdomen/GI: Soft, non-tender, with normal bowel sounds. No distension or tympany. No guarding or rebound. No evidence of tenderness throughout. Back: No spinal tenderness. No costovertebral tenderness. Full range of motion. Male : Normal genitalia with no discharge or lesions. Skin: Warm, dry with normal turgor. Normal color with no rashes, no lesions, and no evidence of cellulitis. MS/ Extremity: Pulses equal, no cyanosis. Neurovascular intact. Full, normal range of motion. Neuro: Awake and alert, GCS 15, oriented to person, place, time, and situation. Cranial nerves II-XII grossly intact. Motor strength 5/5 in all extremities. Sensory grossly intact. Cerebellar exam normal. Normal gait. Psych: Awake, alert, with orientation to person, place and time. Behavior, mood, and affect are within normal limits. 06:36 ECG was reviewed by the Attending Physician. Atrial fibrillation at the rate of [address] elevation or depression, no ventricular ectopy, normal axis. Vital Signs: 03:20 BP 148 / 84; Pulse 85; Resp 16 S; Temp 97.9(O); Pulse Ox 97% on R/A; Weight 91.63 kg as6 (R); Height 6 ft. 0 in. (182.88 cm) (R); Pain 0/10; 05:16 BP 143 / 80; Pulse 65; Resp 14 S; Pulse Ox 97% on R/A; as6 06:09 BP 141 / 89; Pulse 69; Resp 16 S; Pulse Ox 97% on R/A; as6 07:30 BP 117 / 77; Pulse 71; Resp 22; Pulse Ox 97% on R/A; vg1 03:20 Body Mass Index 27.40 (91.63 kg, 182.88 cm) as6 MDM: 03:56 Patient medically screened. sp4 06:36 Differential Diagnosis altered mental status, flu, Unstable angina, noncardiac chest sp4 pain, pancreatitis, cholecystitis. Data reviewed: vital signs, nurses notes, EMS record, old medical records, lab test result(s), EKG, radiologic studies, plain films. 06:47 Response to treatment: the patient's symptoms have mildly improved after treatment. ED sp4 course: Patient has improved after medications in the ER, patient was discussed with hospitalist and admitted for observation for angina, signs of diastolic heart failure," rule out ACS. 08/05 03:21 Order name: Basic Metabolic Panel sp4 08/05 03:21 Order name: CBC with Diff sp4 08/05 03:21 Order name: LFT's sp4 08/05 03:21 Order name: Magnesium sp4 08/05 03:21 Order name: NT PRO-BNP sp4 08/05 03:21 Order name: PT-INR sp4 08/05 03:21 Order name: Troponin HS sp4 / 03:21 Order name: XRAY Chest (1 view) sp4 08/05 03:21 Order name: EKG; Complete Time: 03:22 sp4 08/05 03:21 Order name: Cardiac monitoring; Complete Time: 03:24 sp4 08/05 03:21 Order name: EKG - Nurse/Tech; Complete Time: 03:34 sp4 08/05 03:21 Order name: IV Saline Lock; Complete Time: 03:24 sp4 08/05 03:21 Order name: Labs collected and sent; Complete Time: 03:34 sp4 08/05 03:21 Order name: O2 Per Protocol; Complete Time: 03:24 sp4 08/05 03:21 Order name: O2 Sat Monitoring; Complete Time: 03:24 sp4 08/05 03:52 Order name: Protime (+INR); Complete Time: 06:21 EDMS 08/05 03:56 Order name: CBC with Automated Diff; Complete Time: 06:21 EDMS 08/05 04:11 Order name: Basic Metabolic Panel; Complete Time: 06:21 EDMS 08/05 04:11 Order name: Liver (Hepatic) Function; Complete Time: 06:21 EDMS 08/05 04:11 Order name: Troponin High Sensitivity; Complete Time: 06:21 EDMS 08/05 04:11 Order name: NT PRO-BNP; Complete Time: 06:21 EDMS 08/05 04:11 Order name: Magnesium; Complete Time: 06:21 EDMS 08/05 06:48 Order name: SARS RAPID as6 08/05 07:35 Order name: SARS-COV-2 Antigen Rapid; Complete Time: 16:20 EDMS EC:36 Rhythm is irregularly irregular, A fib. No ST changes noted. sp4 Administered Medications: 06:52 Drug: HydrALAZINE 50 mg Route: PO; lg3 06:52 Drug: Lasix (furosemide) 40 mg Route: IVP; Site: right antecubital; lg3 Disposition Summary: 08/05/22 06:47 Hospitalization Ordered Hospitalization Status: Observation sp4 Provider: Jas Renae sp4 Location: Telemetry/MedSurg (observation) sp4 Condition: Stable sp4 Problem: new sp4 Symptoms: have improved sp4 Bed/Room Type: Standard sp4 Room Assignment: [facility](08/05/22 10:28) eb Diagnosis - Diastolic (congestive) heart failure sp4 - Chronic atrial fibrillation sp4 - Angina pectoris, unspecified sp4 Forms: - Medication Reconciliation Form sp4 - SBAR form sp4 Signatures: Dispatcher [employer] EDMS Nate Rachel FNP-C FNP-Cla1 Justino Mills RN RN jl7 Deisi Saunders Lacie, RN RN lg3 Khai Landeros RN RN as6 Maninder Flores MD MD sp4 Corrections: (The following items were deleted from the chart) 10:28 06:47 sp4 eb
[2022-08-05] MEDS ORDERED: FUROSEMIDE 40 MG/4 ML VIAL ONE (06:51)
[2022-08-05] MEDS ORDERED: HYDRALAZINE HCL 25 MG TABLET ONE (06:51)
[2022-08-05 07:34] LABS: SARS-CoV-2 Antigen Rapid Res Negative (Negative)
[2022-08-05] MEDS ORDERED: NITROGLYCERIN 0.4 MG/TAB SL PRN (08:53)
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
[2022-08-05] MEDS: METOPROLOL TAR 50 MG TAB PO SCH ×2 (09:00→23:13)
[2022-08-05] MEDS ORDERED: ASPIRIN EC 81 MG TAB PO SCH (09:00)
[2022-08-05] MEDS ORDERED: METOPROLOL TAR 50 MG TAB ONE (09:38)
[2022-08-05 10:12] VITALS: BMI 27.3
[2022-08-05 12:00] LABS: Troponin High Sensitivity 3323.6 pg/mL (<58.9)
[2022-08-05] MEDS ORDERED: HEPARIN/D5W 25,000 UNIT/500 ML BAG IV PRN (12:21)
[2022-08-05] MEDS: ENOXAPARIN 100 MG/ML SYR SQ SCH ×2 (12:50→23:13)
--- NOTE | 2022-08-05 12:57 | RAD REPORT ---
EXAM DESCRIPTION: RAD - Chest Single View - 08/05/2022 3:38 am CLINICAL HISTORY: CHEST PAIN COMPARISON: 07/17/2022. TECHNIQUE: XR CHEST 1 VIEW 08/05/2022 3:21 AM CASTING AND LOCKER ROOM SERVICER FINDINGS: The heart is enlarged. Lungs are clear without consolidation, atelectasis, mass or edema. There is no pleural effusion. There is no pneumothorax. There are no acute osseous findings. IMPRESSION: Clear lungs. Electronically signed by: Damien Perez MD 08/05/2022 4:34 AM CASTING AND LOCKER ROOM SERVICER Due to temporary technical issues with the PACS/Fluency reporting system, reports are being signed by the in house radiologists without review as a courtesy to insure prompt reporting. The interpreting radiologist is fully responsible for the content of the report.
[2022-08-06 03:43] LABS: Absolute Lymphocytes (CBC) 1.6 K/uL (0.7-4.9); Hematocrit 44.3 % (39.6-49.0); Lymphocytes % 27.5 % (15.3-44.8); MCV 91.7 fL (80-100); MPV 8.2 fL (7.6-11.3); RBC Red Blood Cell Count 4.83 M/uL (4.33-5.43)
[2022-08-06 03:58] LABS: Potassium 3.8 mmol/L (3.5-5.1)
--- NOTE | 2022-08-06 07:17 | P.PN ---
Date of Service: 08/06/22 Subjective: denies chest pain, no SOB otherwise no significant changes ROS: 10 point ROS as noted above, otherwise negative Physical Exam: GEN: Alert, Dementia, NAD HEENT: Normal conjunctiva, sclera anicteric CV: irregular rate and rhythm, no edema Pulm: Nonlabored respirations on room air ABD: Soft, nontender, nondistended Neuro: Normal speech, normal affect vitals reviewed Problem List: chest pain Chronic atrial fibrillation, on xarelto BPH HTN CKD2 atypical chest pain; woke from sleep with risk factors reportedly had normal stress test in cardiology office in last 3 months - sees Dr. Vasquez Cardiology consulted allergy to aspirin/statin troponin peaked (4015) - now downtrending (1735) levels elevated denies chest pain this morning telemetry confirm home meds - xarelto dosing, last took 3/3 per patient/family restart home metoprolol Heart Cath tentatively / echo VTE: Lovenox Code: DNR Dispo: home, ~24-48 hours
[2022-08-06] MEDS: METOPROLOL TAR 50 MG TAB PO SCH ×2 (09:53→20:54)
[2022-08-06] MEDS: ENOXAPARIN 100 MG/ML SYR SQ SCH ×2 (09:54→20:53)
[2022-08-06] MEDS ORDERED: PNEUMOCOCCAL VACCINE 0.5 ML IMVAC ONE (12:00)
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
[2022-08-07 03:39] LABS: Hematocrit 43.7 % (39.6-49.0); MCV 91.8 fL (80-100); RBC Red Blood Cell Count 4.76 M/uL (4.33-5.43)
[2022-08-07 03:43] LABS: Protime INR 1.18
[2022-08-07 03:50] LABS: Potassium 3.8 mmol/L (3.5-5.1)
[2022-08-07] MEDS ORDERED: HEPA 1000U/500MLS 2,000 UNIT/1,000 ML BAG IV ONE (06:23)
[2022-08-07] MEDS ORDERED: LIDOCAINE 1% 20 ML MDV ONE (06:23)
[2022-08-07] MEDS ORDERED: FENTANYL CITR 100 MCG/2 ML ONE (06:25)
[2022-08-07] MEDS ORDERED: CLOPIDOGREL 75 MG TABLET ONE (06:25)
[2022-08-07] MEDS ORDERED: ASPIRIN 325 MG TAB ONE (06:25)
[2022-08-07] MEDS ORDERED: VERAPAMIL HCL 10 MG/4 ML VIAL IV ONE (06:25)
[2022-08-07] MEDS ORDERED: HEPARIN 5000 UNIT/ML 1 ML VIAL ONE (06:25)
[2022-08-07] MEDS ORDERED: MIDAZOLAM HCL 2 MG/2 ML INJ ONE (06:25)
[2022-08-07] MEDS ORDERED: TICAGRELOR 90 MG TABLET PO ONE (06:26)
[2022-08-07] MEDS ORDERED: ATROPINE SULF 1 MG/10 ML SYR IV ONE (06:26)
[2022-08-07] MEDS ORDERED: NITROGLYCERIN/D5W 25 MG/250 ML BTL IV ONE (06:26)
[2022-08-07] MEDS ORDERED: NITROGLYCERIN 100 MCG/ML SYR (for cath lab use only) IV ONE (06:26)
[2022-08-07] MEDS ORDERED: HEPARIN 10,000 UNIT/10 ML VIAL IV ONE (06:26)
[2022-08-07] MEDS ORDERED: NA CHLORIDE 0.9% 500 ML ONE (06:49)
--- NOTE | 2022-08-07 06:59 | P.PN ---
Date of Service: 08/07/22 Subjective: denies chest pain, no SOB otherwise no significant changes ROS: 10 point ROS as noted above, otherwise negative Physical Exam: GEN: Alert, Dementia, NAD HEENT: Normal conjunctiva, sclera anicteric CV: irregular rate and rhythm, no edema Pulm: Nonlabored respirations on room air ABD: Soft, nontender, nondistended Neuro: Normal speech, normal affect vitals reviewed Problem List: chest pain Chronic atrial fibrillation, on xarelto BPH HTN CKD2 atypical chest pain; woke from sleep with risk factors reportedly had normal stress test in cardiology office in last 3 months - sees Dr. Vasquez Cardiology consulted allergy to aspirin/statin troponin peaked (4015) - now downtrending (1735) levels elevated denies chest pain this morning telemetry confirm home meds - xarelto dosing, last took 3/3 per patient/family restart home metoprolol Heart Cath tentatively 08/07 echo VTE: Lovenox Code: DNR Dispo: home, ~24-48 hours cath today
[2022-08-07] MEDS: METOPROLOL TAR 50 MG TAB PO SCH ×2 (09:00→20:42)
[2022-08-07] MEDS ORDERED: HYDRALAZINE HCL 20 MG/ML VIAL ONE (11:58)
[2022-08-07] MEDS ORDERED: NA CHLORIDE 0.9% 1,000 ML IV SCH (15:00)
--- NOTE | 2022-08-07 16:39 | EKG ---
Test Date: 2022-08-06 Test Time: 15:14:11 Counselor Camp: PANFILO MEASUREMENT RESULTS: Intervals: Rate: 73 DE: QRSD: 100 QT: 376 QTc: 414 [place]: P: DE: QRS: 148 T: 147 INTERPRETIVE STATEMENTS: Atrial fibrillation Left posterior fascicular block Nonspecific ST and T wave abnormality, probably digitalis effect Abnormal ECG Compared to ECG 08/05/2022 03:29:21 Left posterior fascicular block now present ST (T wave) deviation now present Myocardial infarct finding no longer present Electronically Signed On 08-07-22 16:36:37 SIGNAL SYSTEM TESTING MAINTAINER by Cristobal Sanchez
--- NOTE | 2022-08-07 16:46 | EKG ---
Test Date: 2022-08-05 Test Time: 03:29:21 Chemical Engraver: MEASUREMENT RESULTS: Intervals: Rate: 69 HI: QRSD: 104 QT: 388 QTc: 415 [place]: P: HI: QRS: 81 T: 81 INTERPRETIVE STATEMENTS: Atrial fibrillation Cannot rule out Anterior infarct, age undetermined Abnormal ECG Compared to ECG 02/14/2019 10:19:29 Myocardial infarct finding now present ST (T wave) deviation no longer present Electronically Signed On 08-07-22 16:39:24 OFFICE ADMINISTRATION by Cristobal Sanchez
[2022-08-07] MEDS: ACETAMINOPHEN 500 MG TAB PO PRN (20:42)
[2022-08-07] MEDS: ACETYLCYST 20% 800 MG/4 ML VIAL PO SCH (20:43)
--- NOTE | 2022-08-07 22:41 | CON ---
Date of Consultation: 08/07/2022 Reason For Consultation: Mup-SX-[id number] myocardial infarction. History Of Present Illness: This is an 82-year-old male with past medical history of atrial fibrilla tion, hypertension, dementia, and COPD, very poor historian, apparently with advanced dementia, who p resented apparently with chest pain that has been going on and off for some time. 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 Could not get any information from him and then was kept n.p.o. for coronary angiogra m today. Past Medical History: As outlined above in HPI. Medications: Refer to reconciliation sheet for detailed list. Allergies: ASPIRIN, VALSARTAN, DIPYRIDAMOLE, DEXAMETHASONE, AND DILTIAZEM. Family History: No premature coronary artery disease or cancer. Social History: He is an ex-smoker. Does not drink or use any drugs. Review of Systems: All systems were reviewed and they are all negative except what mentioned in HPI. Physical Examination: Vital Signs: Reviewed. Head and Neck: Pupils are equal and reactive to light. Intact eye movements. No JVD. No cervical lymphadenopathy. Neck is supple. Thyroid is not enlarged. Lungs: Clear to auscultation bilaterally. No rhonchi, rales, or crackles. No accessory muscle use. Heart: Irregular. No extra sounds. Abdomen: Soft, nontender. Bowel sounds positive. No organomegaly. No masses or hernia. No rigidi ty or rebound. Extremities: No edema, clubbing, or cyanosis. Intact pulses. Skin: No rash. Neurologic: Alert and awake. No acute focal deficits appreciated. He is confused. Lymph nodes: No cervical or axillary lymphadenopathy. Investigations: BUN 22 and creatinine 1.49. Troponin peaked at 4015, down to 1735. Assessment/recommendations: [id number] myocardial infarction, status post coronary angiogram t veena. The patient has severe LAD disease with diffuse disease involving the diagonal 1 and OM, and C TO of RCA. Ideally, bypass surgery is recommended to discuss this further with the patient's family. Given the fact that he has dementia, probably medical management is the best option in this scenari o. The patient cannot take aspirin, so he can be placed on Plavix and a beta-rebel and coronary va sodilators like Imdur. Thank for the consult. SR/MODL Voice ID: [id number] Report ID: [id number]
--- NOTE | 2022-08-08 01:23 | PN ---
Date of Progress Note: 08/07/2022 Chief Complaint: Acute kidney injury on chronic kidney disease. Subjective: The patient was found to have elevated BUN and creatinine. The patient is an 82-year-ol d man with past medical history of chronic kidney disease, benign prostatic hypertrophy, osteoarthrit is, hyperlipidemia, cardiac arrhythmia, AFib on anticoagulation, history of chronic kidney disease se condary to hypertension and nephrosclerosis. Baseline creatinine level 1.4 in June 2022. The pat ient was found to have renal cyst on both sides. The patient came to the hospital because of chest p ain. He underwent cardiac catheterization. After procedure, he denies PND, orthopnea, chest pain, o r palpitations. Physical Examination: Lungs: Clear to auscultation bilaterally. Heart: S1, S2. Abdomen: Soft, benign. Extremities: No edema. Impression And Plan: 1.Chronic kidney disease with prerenal azotemia. The patient will continue IV fluids after IV contr ast exposure and underwent cardiac catheterization today. Monitor electrolytes closely. 2.Hypertension. Continue to monitor blood pressure. 3.Congestive heart failure. The patient does not have fluid overload. Plan is to initiate IV fluid s to prevent acute kidney injury secondary to contrast exposure. 4.Non-ST elevation myocardial infarction, per Cardiology. EB/MODL Voice ID: [id number] Report ID: [id number]
--- NOTE | 2022-08-08 01:45 | OP ---
Date of Procedure: 08/07/2022 Surgeon: JOE ONEILL Procedures Performed: 1.Selective coronary angiogram. 2.Left heart catheterization. Indication: Non-ST elevation myocardial infarction. Access: Right radial artery 6-English closed with TR band. Complications: None. Estimated Blood Loss: Bleeding less than 10 mL. Anesthesia: Total sedation time was 35 minutes. Description Of Procedure: After risks, benefits, and alternatives were explained, the patient agreed to procedure and signed informed consent. The patient was brought into the cardiac catheterization laboratory and prepped and draped in usual sterile fashion. Then I accessed right radial artery usin g pediatric micropuncture kit and placed 6-English Slender sheath and took 5-English [place] 4 catheter o harley the J-wire into the aortic root, engaged left main and the right coronary artery, took standard v iews and the catheter was pushed over the wire into the LV, measured the LVEDP and pullback did not r ecord any gradient. I then removed the catheter and sheath, placed TR band with good hemostasis. Findings: 1.Left main is normal. 2.LAD: Diffuse proximal 90% and extends all the way to the mid segment, still with severe 90% steno sis. Also diagonal branch has proximal 90% stenosis. The septal 1 branch has also 90% to 95% stenos is. 3.Left circumflex is large and dominant. 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 4.RCA: Small non dominant with mid CT of 100%, and there are collaterals from the LAD to the left c ircumflex. 5.LVEDP elevated at 15 mmHg. Conclusion: 1.Severe coronary artery disease, multivessel. 2.Elevated left ventricular end-diastolic pressure. Recommendation: If he is a candidate for bypass, this is his best option. If he is not a candidate for bypass and given the fact that he is allergic to aspirin, I recommend only medical management giv en the fact that he has advanced dementia. We will discuss further with the family before final deci yunior. SR/MODL Voice ID: [id number] Report ID: [id number]
--- NOTE | 2022-08-08 07:10 | ECHO ---
HEIGHT: 6 ft 0 in WEIGHT: 202 lb 0 oz DATE OF STUDY: 08/07/[address]: Jas Renae MD 2-DIMENSIONAL: YES M.MODE: YES DOPPLER: YES COLOR FLOW: YES TDS: PORTABLE: YES DEFINITY: BUBBLE STUDY: DIAGNOSIS: CHEST PAIN CARDIAC HISTORY: CATHERIZATION: YES SURGERY: NO PROSTHETIC VALVE: NO PACEMAKER: NO MEASUREMENTS (cm) DIASTOLIC (NORMALS) SYSTOLIC (NORMALS) IVSd 1.2 (0.6-1.2) LA Diam 3.2 (1.9-4.0) LVEF 54% LVIDd 3.4 (3.5-5.7) LVIDs 2.5 (2.0-3.5) %FS 27% LVPWd 1.2 (0.6-1.2) Ao Diam 2.1 (2.0-3.7) 2 DIMENSIONAL ASSESSMENT: RIGHT ATRIUM: NORMAL LEFT ATRIUM: NORMAL RIGHT VENTRICLE: NORMAL LEFT VENTRICLE: LEFT VENTRICULAR HYPERTROPHY TRICUSPID VALVE: NORMAL MITRAL VALVE: MILD MITRAL REGURGITATION PULMONIC VALVE: NORMAL AORTIC VALVE: NORMAL PERICARDIAL EFFUSION: NONE AORTIC ROOT: NORMAL LEFT VENTRICULAR WALL MOTION: NORMAL DOPPLER/COLOR FLOW: MILD MITRAL REGURGITATION COMMENTS: 1. POOR WINDOWS 2. LEFT VENTRICULAR EJECTION FRACTION IS NORMAL 55-60% 3. MILD CONCENTRIC LEFT VENTRICULAR HYPERTROPHY 4. MILD MITRAL REGURGITATION 5. MILD AORTIC INSUFFICIENCY TECHNOLOGIST: EZEKIEL GOFF
[2022-08-08] MEDS: METOPROLOL TAR 50 MG TAB PO SCH ×2 (08:58→20:20)
[2022-08-08] MEDS: ACETYLCYST 20% 800 MG/4 ML VIAL PO SCH ×2 (09:00→20:21)
[2022-08-08] MEDS: HYDRALAZINE HCL 20 MG/ML VIAL IV PRN (12:48)
[2022-08-08 16:07] LABS: Specific Gravity 1.017 (1.005-1.030); Urine Bacteria None Seen /HPF (<20); Urine Bilirubin NEGATIVE (Negative); Urine Blood Negative (Negative); Urine Clarity Clear (Clear); Urine Color Light-Yellow (Yellow); Urine Glucose NEGATIVE (Negative); Urine Protein TRACE (Negative); Urine RBC <5 /HPF (None Seen); Urine Urobilinogen Normal (Normal)
--- NOTE | 2022-08-08 17:20 | P.PN ---
Subjective Date of Service: 08/08/22 Chief Complaint: unstable angina Patient currently has no complaint. He denies any chest pain at the moment. He appears a bit confused today. Physical Examination - Vital Signs Temperature: 96.8 F Blood Pressure: 170/95 Pulse: 96 Respirations: 18 Pulse Ox (%): 96 - Physical Exam Other Physical/Emotional Findings: Physical Exam: GEN: Alert, oriented, NAD. HEENT: Normal conjunctiva, sclera anicteric. CV: Regular rate and rhythm, no edema. Pulm: Nonlabored respirations on room air. ABD: Soft, nontender, nondistended. MSK: No joint tenderness. Integumentary: No rashes. Neuro: Normal speech, normal affect Assessment And Plan - Plan Physical Exam: GEN: Alert, Dementia, NAD HEENT: Normal conjunctiva, sclera anicteric CV: irregular rate and rhythm, no edema Pulm: Nonlabored respirations on room air ABD: Soft, nontender, nondistended Neuro: Normal speech, mildly confused today. vitals reviewed Problem List: chest pain CAD Chronic atrial fibrillation, on xarelto BPH HTN CKD2 UTI Plan Patient presented with chest pain. Troponin trended up and peaked at 4015 Cardiology consulted, patient seen by Dr. Sanchez. allergy to aspirin/statin noted Cardiac cath performed and patient noted to have significant LAD occlusion. Dr. Sanchez recommended CABG versus medical treatment pending discussion with family Continue telemetry confirm home meds - xarelto dosing, last took 3/3 per patient/family Continue metoprolol echo done is unremarkable. UA obtained today suggest UTI. Start IV Rocephin VTE: Lovenox Code: DNR
[2022-08-08] MEDS: CEFTRIAXONE 1,000 MG in NA CHLORIDE 0.9% 50 ML IVPB SCH (17:50)
--- NOTE | 2022-08-08 19:21 | RAD REPORT ---
EXAM DESCRIPTION: US - Upper Ext Artery Uni Brant - 08/08/2022 6:57 pm CLINICAL HISTORY: post heart cath Right-sided pain swelling COMPARISON: EXT VENOUS W COMPRESSION BRANT dated 08/25/2014 FINDINGS: Triphasic waveforms are seen the right upper extremity arterial system except for the radi al artery. Radial artery waveform is monophasic a quite significantly blunted. IMPRESSION: Significant monophasic and blunted waveform in the right radial artery suggests upstream flow limitation.
[2022-08-08] MEDS: ACETAMINOPHEN 500 MG TAB PO PRN (20:20)
--- NOTE | 2022-08-09 01:46 | PN ---
Date of Progress Note: 08/08/2022 Chief Complaint: Acute on chronic kidney injury. Subjective: Patient was found to have elevated BUN and creatinine. Patient is an 82-year-old man wi th past medical history of chronic kidney disease, benign prostatic hypertrophy, osteoarthritis, card iac arrhythmia, atrial fibrillation on anticoagulation, chronic kidney disease secondary to hypertens ion and nephrosclerosis. Baseline creatinine level at 1.4 in June 2022. The patient was found to have renal . He came to the hospital because of chest pain. He underwent cardiac cathete rization yesterday. IV fluids were started with gentle hydration to prevent contrast-induced nephrop athy after IV contrast exposure. The patient denies chest pain or palpitations today. Denies PND or orthopnea. Physical Examination: Lungs: Clear to auscultation bilaterally. Heart: S1 and S2. Abdomen: Soft, benign. Extremities: No edema. Impression And Plan: 1.Chronic kidney disease with prerenal azotemia, acute kidney injury secondary to cardiorenal syndro me. The patient although is undergoing IV fluids to prevent contrast-induced nephropathy. The patie nt also was started on Mucomyst. Continue to monitor electrolytes closely. The patient denies lower urinary tract symptoms. Plan is to check renal ultrasound for evaluation and to rule out any eviden ce of obstructive uropathy and assess kidney size and check for any evidence of renal artery stenosis . 2.Congestive heart failure. Patient does not have fluid overload and plan is to complete IV fluids today. The patient received IV fluids with continued drip to prevent acute kidney injury secondary t o contrast exposure. 3.Jqt-PX-htnmypava myocardial infarction. The troponin level is elevated. Plan is to monitor CK level to check for evidence of rhabdomyolysis. EB/MODL Voice ID: [id number] Report ID: [id number]
[2022-08-09 06:31] LABS: Magnesium 2.2 mg/dL (1.6-2.4); Phosphorus 3.1 mg/dL (2.5-4.9); Potassium 4.3 mmol/L (3.5-5.1); Uric Acid 6.5 mg/dL (3.5-7.2)
--- NOTE | 2022-08-09 08:28 | RAD REPORT ---
EXAM DESCRIPTION: US - Renal Ultrasound-Complete - 08/09/2022 1:07 am CLINICAL HISTORY: ckd , htn Flank pain COMPARISON: Renal Ultrasound-Complete dated 12/24/2019 FINDINGS: Mildly echogenic kidneys are present bilaterally. Benign bilateral renal cysts are seen. The right kidney measures 10.2 x 5.6 x 5.0 cm. No hydronephrosis, focal mass or perinephric fluid. The left kidney measures 10.7 x 5.8 x 4.5 cm. No hydronephrosis, focal mass or perinephric fluid. The urinary bladder is incompletely distended without gross abnormality seen. IMPRESSION: Mildly echogenic kidneys bilaterally compatible with underlying medical renal disease. Bilateral benign renal cysts are present. No hydronephrosis.
[2022-08-09] MEDS: CEFTRIAXONE 1,000 MG in NA CHLORIDE 0.9% 50 ML IVPB SCH (09:00)
[2022-08-09] MEDS: METOPROLOL TAR 50 MG TAB PO SCH (09:01)
[2022-08-09] MEDS: HYDRALAZINE HCL 20 MG/ML VIAL IV PRN (09:01)
[2022-08-09 10:54] VITALS: O2SAT 97
[2022-08-09 13:34] VITALS: BP 152/79; TEMP 97.5
--- NOTE | 2022-08-09 14:41 | PN ---
Date of Progress Note: 08/09/2022 Subjective: The patient was admitted with non-ST elevation NM, acute kidney injury. The patient sta rted on hydration. Kidney function has been normalized. Physical Examination: Vital Signs: Blood pressure 170/97, pulse of 73. Chest: Clear to auscultation. Heart: S1, S2. Regular. Abdomen: Soft, nontender. Extremity: Trace edema. Neurologic: Alert. No focality. Laboratory Data: Hemoglobin 14.2. Sodium 141, potassium 4.3, bicarb 30, BUN 18, creatinine 1.3, GFR up to 52, calcium 9.5, phosphorus 3.1. Current Medications: The patient on include hydralazine, ceftriaxone, nitroglycerin, metoprolol 50 b .i.d., Tylenol. Assessment And Plan: 1.Acute kidney injury secondary to cardiorenal, poor perfusion ATN and prerenal, recovered, resolved . Obstructive uropathy and rhabdomyolysis has been ruled out. 2.Hypertension. Continue beta-rebel. Keep holding SANJEEV inhibitor. The patient plan for cardiac c ath. We will keep holding any SANJEEV inhibitor or diuresis for the time being. 3.Non-ST elevation myocardial infarction. Plan for transfer for coronary artery bypass graft. We w ill follow up. SUMIT Voice ID: [id number] Report ID: [id number]
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
--- NOTE | 2022-08-09 20:32 | PN ---
Date of Progress Note: 08/08/2022 Subjective: Seen by bedside. Doing clinically well. No further chest pain. Review of Systems: No chest pain, shortness of breath, orthopnea, cough, nausea, vomiting, or diarrhea. All other syste ms reviewed, they were negative. Physical Examination: Vital Signs: Reviewed. Head and Neck: Pupils are equal, reactive to light. Intact eye movements. No JVD. No cervical lym phadenopathy. Neck is supple. Thyroid is not enlarged. Lungs: Clear to auscultation bilaterally. No rhonchi, wheezing, or crackles. No accessory muscle u se. Heart: Regular rate and rhythm. No extra sounds. Abdomen: Soft, nontender. Bowel sounds positive. No organomegaly. No masses or hernia. No rigidi ty or rebound. Extremities: No edema, clubbing, or cyanosis. Intact pulses. Skin: No rash. Neurologic: Alert, awake, oriented x3. No acute focal deficits appreciated. Investigations: BUN is 22, creatinine 1.4. Assessment And Recommendations: 1.Tff-[id number] myocardial infarction. Has severe multivessel coronary artery disease. I had a long discussion with him and the family. His daughter came in from [place]. Had more than 30 min [facility] family meeting, and the final decision was to proceed with coronary artery bypass surgery. Elma ent will be transferred to [facility] in [place] for bypass. I discussed the case myself with christopher tripp Surgery. 2.Acute on chronic renal failure. This is improving. Continue to monitor. 3.Hypertension. Blood pressure has improved. We will continue metoprolol. SR/MODL Voice ID: [id number] Report ID: [id number]
== END 2022-08-09 15:00 | disposition short-term general hospital (02) | DRG 280 ==
LOC: ER 03:17 → ERHOLD 08:53 → 4TH 11:21 → OBSVTOIN 14:09
PROVIDERS: ADMIT Hospitalist; ATTEND Internal Medicine
PROC: 4A023N7 Measurement of Cardiac Sampling and Pressure, Left Heart, Percutaneous Approach (ICD-10-PCS; principal; 2022-08-07)
PROC: B2111ZZ Fluoroscopy of Multiple Coronary Arteries using Low Osmolar Contrast (ICD-10-PCS; 2022-08-07)
DX: I21.4 Non-ST elevation (NSTEMI) myocardial infarction (principal); I50.31 Acute diastolic (congestive) heart failure; N17.0 Acute kidney failure with tubular necrosis; I13.0 Hypertensive heart and chronic kidney disease with heart failure and stage 1 through stage 4 chronic kidney disease, or unspecified chronic kidney disease; I48.20 Chronic atrial fibrillation, unspecified; N39.0 Urinary tract infection, site not specified; N18.32 Chronic kidney disease, stage 3b; N40.0 Benign prostatic hyperplasia without lower urinary tract symptoms; E78.5 Hyperlipidemia, unspecified; J44.9 Chronic obstructive pulmonary disease, unspecified; I25.119 Atherosclerotic heart disease of native coronary artery with unspecified angina pectoris; F03.90 Unspecified dementia, unspecified severity, without behavioral disturbance, psychotic disturbance, mood disturbance, and anxiety; Z66 Do not resuscitate; Z88.8 Allergy status to other drugs, medicaments and biological substances; Z88.6 Allergy status to analgesic agent; Z79.01 Long term (current) use of anticoagulants; Z79.899 Other long term (current) drug therapy; Z87.891 Personal history of nicotine dependence; Z20.822 Contact with and (suspected) exposure to COVID-19
CPT/HCPCS: 36415; 71045; 76770; 76937; 80048; 80061; 80076; 81001; 82550; 83735; 83880; 84100; 84484; 84550; 85025; 85027; 85379; 85610; 87086; 87088; 87811; 93005; 93306; 93458; 93931; 94760; 96374; 97116; 97161; 97530; 99285; C1893; J0360; J0461; J1644; J1650; J1940; J2001; J2250; J3010; J7030; J7040; J7608; Q9966

== ENCOUNTER 2022-10-01 21:45 | Emergency (ER) | payer OTHER ==
--- OUTSIDE RECORDS SUMMARY | 2022-10-01 21:53 | XMS REPORT | Continuity of Care Document ---
:1940 Author Organization [facility] t Address [address] [place] [address] Care Team Providers Name Role Phone Arthur Fuentes Attending Clinician Unavailable Salazar Burton Attending Clinician Unavailable Arthur Fuentes Admitting Clinician Unavailable Salazar Burton Admitting Clinician Unavailable Payers Payer Name Policy Type Policy Number Effective Date Expiration Date S ource Problems This patient has no known problems. Allergies, Adverse Reactions, Alerts Allergy Allergy Status Severity Reaction(s) Onset Inactive Treating Comm ents Source Name Type Date Date Clinician Statins- DA Active SV UNKNOWN 0 [facility]-15 Clear Reductas 00:00: Montemayor e 00 [facility] Statins- DA Active SV UNKNOWN 0 [facility]-CoA 3-08 Clear Reductas 00:00: Montemayor e 00 [facility] Medications This patient has no known medications. Procedures Procedure Date / Time Performed Performing Clinician [facility] anna [id number] 2022-08-16 00:00:00 GIBJE.01 [facility] [id number] 2022-08-16 00:00:00 GIBJE.01 [facility] [id number] 2022-08-10 00:00:00 CHAAB.01 [facility] [id number] 2022-08-10 00:00:00 CHAAB.01 [facility] [id number] 2022-08-10 00:00:00 CHAAB.01 [facility] [id number] 2022-08-10 00:00:00 CHAAB.01 [facility] [id number] 2022-08-10 00:00:00 CHAAB.01 [facility] [id number] 2022-08-10 00:00:00 CHAAB.01 [facility] [id number] 2022-08-10 00:00:00 CHAAB.01 [facility] Encounters Start End Encounter Admission Attending Care Care Encounter Source Date/Time Date/Time Type Type Clinicians Facility Department ID 2022-08-16 2022-09-02 Inpatient DEISY Fuentes, [facility] REHA [id number] [facility] 16:49:00 11:18:00 Arthur 86 [facility] 2022-08-09 2022-08-16 Inpatient TRA Burton, [facility] INTE [id number] [facility] 15:47:00 16:47:00 Thompson 79 [facility] Results Test Description Test Time Test Comments Results Result Comments Source COVID 19 INHOUSE AG 2022-09-02 06:56:00 Test Item Value Reference Range Interpretation Comme nts COVID 19 INHOUSE AG (test Negative Negative A negative result is presumptive and code = [id number]) should b e confirmedwith an FDA authorized mole cular assay, if necessary forpa tient management.A positive result does not rule out co-infections w ithother pathogens.This test detects both viable (live) a nd non-viable,SARS -CoV, and SARS-CoV-2. Test performanc e depends on theamount of vi tyra (antigen) in the sample.This tarah t has not been FDA cleared or appr ludy; the test hasbeen authori zed by FDA under an Emergency Use A uthorization(EUA) for use by jo ogden certified under the CLIA thatme et the requirements to perform mode rate, high or waivedcomplexit y tests. BASIC METABOLIC [id number] 15:02:00 Test Item Value Reference Range Interpretation Comments SODIUM (test code = 140 mEq/L 134-147 N NA) POTASSIUM (test code 4.2 mEq/L 3.4-5.0 N = K) CHLORIDE (test code 103 mEq/L 100-108 N = CL) CARBON DIOXIDE (test 28 mEq/l 21-33 N code = CO2) ANION GAP (test code 13 0-20 N = GAP) GLUCOSE (test code = 98 mg/dL 70-110 N GLU) BLOOD UREA NITROGEN 19 mg/dL 7-18 H (test code = BUN) GLOMERULAR 37.6 70-80 L The Glomerular FILTRATION RATE Filtration R ate is a (test code = GFR) calculated parameterbased on serum Creatinine, pat ient age and sex. GFR va luesless than 60 mL/min/ 1.73 square meters a re indicative ofCh ronic Kidney Disease. Values less than 15 mL/min/1.73squa re meters indicate Kidney failure. The calculation forGFR is based on the CKD-EPI (2020) calculat ion. This formulais race indifferent and is the recommended for alireza for GFRby the Natio nal Kidney Foundati on for Adults.The GFR will not calculate if th e sex is unknown or if thepatient's ag e is <18 years. CREATININE (test 1.8 mg/dL 0.6-1.3 H code = CREAT) CALCIUM (test code = 9.1 mg/dL 8.0-10.5 N CA) CALCIUM [id number] 15:02:00 Test Item Value Reference Range Interpretation Comments CALCIUM IONIZED (test code = ALANNA) 1.16 MMOL/L 1.09-1.30 N COVID 19 INHOUSE [id number] 06:33:00 Test Item Value Reference Range Interpretation Comments COVID 19 INHOUSE Negative Negative A negative result is AG (test code = presumptive and should be [id number]) confirmedwith a n FDA authorized mole cular assay, if necessary fo rpatient management.A po sitive result does not rule out co-infections w ithother pathogens.This test detects both viable (li ve) and non-viable,SARS -CoV, and SARS-CoV-2. Tarah t performance dep ends on theamount of vi tyra (antigen) in th e sample.This tarah t has not been FDA cleare d or approved; the t est hasbeen authorized by Carly HOLT under an Emergency Use Authorization(E UA) for use by laboratories certified under the CLIA thatmeet the requirements to perform moderate, high or waivedcomplexit y tests. [id number] 07:18:00 Test Item Value Reference Range Interpretation Comments ALBUMIN (test code = ALB) 3.20 g/dL 3.4-5.0 L [id number] 07:18:00 Test Item Value Reference Range Interpretation Comments PREALBUMIN (test code = PREALB) 12.0 mg/dL 16.0-40.0 L - US RETROPERITONEAL [id number] 00:00:00 [facility] 1940 Sex: M Name: SALASBRENNAN GANDARA GERRY [facility] : 1940 Age/S: 82 / M [address] [place] [address] Unit #: [id number] Loc: [place] [address] Phys: Maura Terrazas MD Acct: [id number] Dis Date: Status: ADM IN PHONE #: [phone] Exam Date: 08/28/2022 [facility] FAX #: [phone] Reason: renal failure EXAMS: CPT CODE: [id number] US RETROPERITONEAL [facility] [id number] PROCEDURE INFORMATION: Exam: US Retroperitoneal; Complete; Kidneys and Bladder Exam date and time: 08/28/2022 9:42 AM Age: 82 years old Clinical indication: Other: Renal failure TECHNIQUE: Imaging protocol: Real-time ultrasound of the retroperitoneum with image documentation. Complete exam focused on the kidneys and bladder. COMPARISON: US SOFT TISSUE-TORSO 08/15/2022 12:26 PM FINDINGS: Right kidney: The right kidney measures 10.3 cm and demonstrates a few simple cysts measuring up to 4.5 cm. No mass, calculi or hydronephrosis. Left kidney: The left kidney measures 10.8 cm and demonstrates a few simple cysts measuring up to 4.4 cm. No mass, calculi or hydronephrosis. Urinary bladder: Unremarkable. IMPRESSION: Bilateral renal simple cysts not necessitating follow-up. at 1417 Reported and signed by: Aniket Loredo M.D. CC: Maura Terrazas MD; Arthur Fuentes Technologist: Kavita Vera Trnohb Date/Time: 08/28/2022 (1416) [email or web address] Orig Print D/T: S: 08/28/2022 (1416) Probe: PAGE 1 Signed ReportBASIC METABOLIC [id number] 07:45:00 Test Item Value Reference Range Interpretation Comments SODIUM (test code = 137 mEq/L 134-147 N NA) POTASSIUM (test code 3.9 mEq/L 3.4-5.0 N = K) CHLORIDE (test code 101 mEq/L 100-108 N = CL) CARBON DIOXIDE (test 29 mEq/l 21-33 N code = CO2) ANION GAP (test code 11 0-20 N = GAP) GLUCOSE (test code = 102 mg/dL 70-110 N GLU) BLOOD UREA NITROGEN 23 mg/dL 7-18 H (test code = BUN) GLOMERULAR 37.6 70-80 L The Glomerular FILTRATION RATE Filtration R ate is a (test code = GFR) calculated parameterbased on serum Creatinine, pat ient age and sex. GFR va luesless than 60 mL/min/ 1.73 square meters a re indicative ofCh ronic Kidney Disease. Values less than 15 mL/min/1.73squa re meters indicate Kidney failure. The calculation forGFR is based on the CKD-EPI (2020) calculat ion. This formulais race indifferent and is the recommended for alireza for GFRby the Natio nal Kidney Foundati on for Adults.The GFR will not calculate if th e sex is unknown or if thepatient's ag e is <18 years. 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 4-22.9 ug/dL 14-15yrs( Male): 2.5-22.9 ug/dL 14-15yrs(Female ): 2.5-28.6 ug/dL 16-18yrs(M/F): 2.4-28.6 ug/dLAdults(M/F ) AM: 4.3-22.4 ug/dLAdults(M/F ) PM: 3.1-16.7 ug/dL BASIC METABOLIC [id number] 07:37:00 Test Item Value Reference Range Interpretation Comments SODIUM (test code = 136 mEq/L 134-147 N NA) POTASSIUM (test code 3.8 mEq/L 3.4-5.0 N = K) CHLORIDE (test code 100 mEq/L 100-108 N = CL) CARBON DIOXIDE (test 29 mEq/l 21-33 N code = CO2) ANION GAP (test code 10 0-20 N = GAP) GLUCOSE (test code = 96 mg/dL 70-110 N GLU) BLOOD UREA NITROGEN 24 mg/dL 7-18 H (test code = BUN) GLOMERULAR 35.2 70-80 L The Glomerular FILTRATION RATE Filtration R ate is a (test code = GFR) calculated parameterbased on serum Creatinine, pat ient age and sex. GFR va luesless than 60 mL/min/ 1.73 square meters a re indicative ofCh ronic Kidney Disease. Values less than 15 mL/min/1.73squa re meters indicate Kidney failure. The calculation forGFR is based on the CKD-EPI (2020) calculat ion. This formulais race indifferent and is the recommended for alireza for GFRby the Natio nal Kidney Foundati on for Adults.The GFR will not calculate if th e sex is unknown or if thepatient's ag e is <18 years. CREATININE (test 1.9 mg/dL 0.6-1.3 H code = CREAT) CALCIUM (test code = 9.1 mg/dL 8.0-10.5 N CA) CALCIUM [id number] 07:37:00 Test Item Value Reference Range Interpretation Comments CALCIUM IONIZED (test code = ALANNA) 1.14 MMOL/L 1.09-1.30 N UA RFLX MICR CULT IF [id number] 10:40:00 Test Item Value Reference Range Interpretation Comments UA COLOR (test code = ALBERTO YEL/STRAW A COLU) UA APPEARANCE (test CLEAR CLEAR code = APPU) UA GLUCOSE DIPSTICK NEGATIVE NEGATIVE (test code = DGLUU) UA BILIRUBIN DIPSTICK NEGATIVE NEGATIVE (test code = BILU) UA KETONE DIPSTICK NEGATIVE NEGATIVE (test code = KETU) UA SPECIFIC GRAVITY 1.011 1.005-1.030 N (test code = SGU) UA BLOOD DIPSTICK (test NEGATIVE NEGATIVE code = SUZETTE) UA PH DIPSTICK (test 5.0 5.0-7.0 N code = KEREN) UA PROTEIN DIPSTICK NEGATIVE NEGATIVE (test code = PROU) UA UROBILINIOGEN COLOR INTERFERENCE 0.2-1.0 DIPSTICK (test code = mg/dL URO) UA NITRITE DIPSTICK COLOR INTERFERENCE NEGATIVE (test code = LADONNA) UA LEUKOCYTE ESTERASE NEGATIVE NEGATIVE DIPSTICK (test code = LEUU) UA WBC (test code = 4-9 WBC/HPF 0-3 A WBCU) UA RBC (test code = 0-3 RBC/HPF 0-3 RBCU) UA WBC NO REFLEX (test 4-9 WBC/HPF 0-3 A code = WBCUCL) UA BACTERIA (test code TRACE /HPF NONE SEEN = BACU) UA SQUAMOUS CELLS (test 0-5 /HPF NONE SEEN code = SQU) UA HYALINE CAST (test 6-10 /LPF NONE SEEN code = HYALU) UA MUCUS (test code = TRACE /LPF NONE SEEN MUCU) Indication for culture: Dysuria/FrequencySpecimen Description: STRAIGHT CATH- XR RIBS UNI 2 V [id number] 00:00:00 [facility] 1940 Sex: M FAX: Arthur Ceja [phone] [place]: St: ADM Name: BRENNAN SALAS [facility] [place] : 1940 Age/S: 82/M [address] [place] [address] Unit #: [id number] Loc: [address] [address] Phys: Arthur Fuentes MD Acct: [id number] Dis Date: Status: ADM IN PHONE #: [phone] Exam Date: 08/24/2022 1457 FAX #: [phone] Reason: FALL, LEFT RIB PAIN EXAMS: CPT CODE: [id number] XR RIBS UNI 2 [place] [id number] PROCEDURE INFORMATION: Exam: XR Left Ribs Exam date and time: 08/24/2022 2:47 PM Age: 82 years old Clinical indication: Other: Fall, left rib pain TECHNIQUE: Imaging protocol: Radiologic exam of theleft ribs. Views: 2 views. COMPARISON: CR XR CHEST 1V 08/16/2022 5:01 AM FINDINGS: Lungs: Low lung volumes are present bilaterally. No consolidation. Bibasilar atelectasis. Pleural spaces: Small left pleural effusion. No pneumothorax. Heart/Mediastinum: Heart size is within normal limits. Atherosclerotic calcifications. Bones/joints: Healing transverse fractures of the left lateral 7th and 8th ribs. Degenerative changes of the thoracic spine. Median sternotomy wires. Cervical spine fusion hardware. Notes: If there is further concern can consider additional views or bone scan. IMPRESSION: Healing fractures of the left lateral 7th and 8th ribs. Small left pleural effusion. at 1606 Reported and signed by: Florentino Perez M.D. CC: Arthur Fuentes Technologist: Irving Jiang, RT(R); Mabel James RT(R) Trnscrd Date/Time/By: 08/24/2022 (1607) : By: [email or web address] Orig Print D/T: S: 08/24/2022 (6299) PAGE 1 Signed ReportBASIC METABOLIC [id number] 07:54:00 Test Item Value Reference Range Interpretation Comments SODIUM (test code = 138 mEq/L 134-147 N NA) POTASSIUM (test code 4.2 mEq/L 3.4-5.0 N = K) CHLORIDE (test code 100 mEq/L 100-108 N = CL) CARBON DIOXIDE (test 30 mEq/l 21-33 N code = CO2) ANION GAP (test code 12 0-20 N = GAP) GLUCOSE (test code = 93 mg/dL 70-110 N GLU) BLOOD UREA NITROGEN 30 mg/dL 7-18 H (test code = BUN) GLOMERULAR 29.5 70-80 L The Glomerular FILTRATION RATE Filtration R ate is a (test code = GFR) calculated parameterbased on serum Creatinine, pat ient age and sex. GFR va luesless than 60 mL/min/ 1.73 square meters a re indicative ofCh ronic Kidney Disease. Values less than 15 mL/min/1.73squa re meters indicate Kidney failure. The calculation forGFR is based on the CKD-EPI (2020) calculat ion. This formulais race indifferent and is the recommended for alireza for GFRby the Natio nal Kidney Foundati on for Adults.The GFR will not calculate if th e sex is unknown or if thepatient's ag e is <18 years. CREATININE (test 2.2 mg/dL 0.6-1.3 H code = CREAT) CALCIUM (test code = 9.4 mg/dL 8.0-10.5 N CA) [id number] 07:54:00 Test Item Value Reference Range Interpretation Comments MAGNESIUM (test code = MAG) 1.89 mg/dL 1.80-2.40 N CBC W/AUTO [id number] 07:40:00 Test Item Value Reference Range Interpretation Comments WHITE BLOOD CELL (test code = 10.4 x10 3/uL 4.5-11.0 N WBC) RED BLOOD CELL (test code = 3.20 x10 6/uL 4.00-5.60 L RBC) HEMOGLOBIN (test code = HGB) 9.7 g/dL 12.5-16.9 L HEMATOCRIT (test code = HCT) 30.4 % 37.5-50.7 L MEAN CELL VOLUME (test code = 95.0 fL 81.0-99.0 N MCV) MEAN CELL HGB (test code = MCH) 30.3 pg 27.0-33.0 N MEAN CELL HGB CONCETRATION 31.9 g/dL 33.0-37.0 L (test code = MCHC) RED CELL DISTRIBUTION WIDTH CV 14.6 % 11.5-14.5 H (test code = RDW) RED CELL DISTRIBUTION WIDTH SD 49.9 fL 37.0-54.0 N (test code = RDW-SD) PLATELET COUNT (test code = 489 x10 3/uL 150-400 H PLT) MEAN PLATELET VOLUME (test code 9.3 fL 7.0-9.0 H = MPV) NEUTROPHIL % (test code = NT%) 77.1 % 56.0-77.0 H IMMATURE GRANULOCYTE % (test 0.8 % 0.0-2.0 N code = IG%) LYMPHOCYTE % (test code = LY%) 8.0 % 14.0-32.0 L MONOCYTE % (test code = MO%) 6.8 % 4.8-9.0 N EOSINOPHIL % (test code = EO%) 6.5 % 0.3-3.7 H BASOPHIL % (test code = BA%) 0.8 % 0.0-2.0 N NUCLEATED RBC % (test code = 0.0 % 0-0 N NRBC%) NEUTROPHIL # (test code = NT#) 8.00 x10 3/uL 2.0-7.6 H IMMATURE GRANULOCYTE # (test 0.08 x10 3/uL 0.00-0.03 H code = IG#) LYMPHOCYTE # (test code = LY#) 0.83 x10 3/uL 1.0-3.8 L MONOCYTE # (test code = MO#) 0.71 x10 3/uL 0.1-0.8 N EOSINOPHIL # (test code = EO#) 0.67 x10 3/uL 0.0-0.2 H BASOPHIL # (test code = BA#) 0.08 x10 3/uL 0.0-0.2 N NUCLEATED RBC # (test code = 0.00 x10 3/uL 0.0-0.1 N NRBC#) MANUAL DIFF REQUIRED (test code NO = MDIFF) - XR ELBOW 2 VIEWS [id number] 00:00:00 [facility] 1940 Sex: M FAX: Florentino Tripp [phone] [place]: St: [facility] FAX: Arthur Ceja [phone] - Name: BRENNAN SALAS [facility] : 1940 Age/S: 82/M [address] [place] [address] Bl Unit #: [id number] Loc: [place] [address] Phys: Florentino Jimenez Acct: [id number] Dis Date: Status: ADM IN PHONE #: Exam Date: 08/23/2022 1840 FAX #: [phone] Reason: PAIN TO AREA, S/P FALL ON RIGHT SIDE 08/22 EXAMS: CPT CODE: [id number] XR ELBOW [address] [place] [id number] PROCEDURE INFORMATION: Exam: XR Right Elbow Exam date and time: 08/23/2022 6:28 PM Age: 82 years old Clinical indication: Pain; Elbow; Right; Additional info: Pain to area, S/P fall on right side 08/22 TECHNIQUE: Imaging protocol: Radiologic exam of the right elbow. Views: 1 or 2 views. AP and Lateral COMPARISON: DX XR SHOULDER 2 V RT 08/22/2022 3:36 PM FINDINGS: Bones/joints: No acute fracture or dislocation. No advanced degenerative change. Soft tissues: No focal soft tissue swelling. No soft tissue gas or radiopaque foreign body. Notes: If there is continued concern, follow-up radiographs or MRI should be considered for more complete assessment. IMPRESSION: No fracture or dislocation. at 1923 Reported and signed by: Madi Pope M.D. CC: Florentino PINO; Arthur Fuentes Technologist: Shikha Bateman, RT(R) Trnscrd Date/Time/By: 08/23/2022 (1922) : By: [email or web address] [facility] D/T: S: 08/23/2022 (1922) PAGE 1 Signed ReportBASIC METABOLIC [id number] 08:00:00 Test Item Value Reference Range Interpretation Comments SODIUM (test code = 137 mEq/L 134-147 N NA) POTASSIUM (test code 4.2 mEq/L 3.4-5.0 N = K) CHLORIDE (test code 100 mEq/L 100-108 N = CL) CARBON DIOXIDE (test 31 mEq/l 21-33 N code = CO2) ANION GAP (test code 10 0-20 N = GAP) GLUCOSE (test code = 100 mg/dL 70-110 N GLU) BLOOD UREA NITROGEN 35 mg/dL 7-18 H (test code = BUN) GLOMERULAR 29.5 70-80 L The Glomerular FILTRATION RATE Filtration R ate is a (test code = GFR) calculated parameterbased on serum Creatinine, pat ient age and sex. GFR va luesless than 60 mL/min/ 1.73 square meters a re indicative ofCh ronic Kidney Disease. Values less than 15 mL/min/1.73squa re meters indicate Kidney failure. The calculation forGFR is based on the CKD-EPI (2020) calculat ion. This formulais race indifferent and is the recommended for alireza for GFRby the Natio nal Kidney Foundati on for Adults.The GFR will not calculate if th e sex is unknown or if thepatient's ag e is <18 years. CREATININE (test 2.2 mg/dL 0.6-1.3 H code = CREAT) CALCIUM (test code = 9.2 mg/dL 8.0-10.5 N CA) CALCIUM [id number] 08:00:00 Test Item Value Reference Range Interpretation Comments CALCIUM IONIZED (test code = ALANNA) 1.14 MMOL/L 1.09-1.30 N - CT HEAD/BRAIN W/O [id number] 00:00:00 [facility] 1940 Sex: M Name: BRENNAN SALAS [facility] [place] : 1940 Age/S: 82 / M [address] [place] [address] Unit #: [id number] Loc: [place] [address] Phys: Arthur Fuentes MD Acct: [id number] Dis Date: Status: ADM IN PHONE #: [phone] Exam Date: 08/22/2022 1546 FAX #: [phone] Reason: FALL-HIT RIGHT OCCIPTAL AREA ON FLOOR; ON PLAVI EXAMS: CPT CODE: [id number] CT HEAD/BRAIN W/O CONT [id number] PROCEDU RE INFORMATION: Exam: CT Head Without Contrast Exam date and time: 08/22/2022 3:46 PM Age: 82 years old Clinical indication: Injury or trauma; Fall; Blunt trauma (contusions or hematomas); Additional info: Fall-hit right occiptal area on floor; On plavix/asa TECHNIQUE: Imaging protocol: Computed tomography of the head without contrast. Radiation optimization: All CT scans at this facility use at leastone of these dose optimization techniques: automated exposure control; mA and/or kV adjustment per patient size (includes targeted exams where dose is matched to clinical indication); or iterative reconstruction. REPORTING DATA: Count of CT and Cardiac NM exams in prior 12 months: This patient has received [address] and 0 known cardiac nuclear medicine studies in the 12 months prior to the current study. COMPARISON: US DUP EXTRACRANIAL ANCA 08/09/2022 5:25 PM FINDINGS: Brain: No acute parenchymal hemorrhage or large subacute infarction. There are areas of low attenuation in the supratentorial white matter that are non-specific, but favor moderate/severe microvascular ischemic changes. Lack of comparison imaging and degree of white matter changes limits the evaluation for acute lacunar infarction. No acute subdural or subarachnoid hemorrhage. No mass effect or midline shift. Cerebral ventricles: Noacute hydrocephalus. Paranasal sinuses: No fluid levels. Mastoid air cells: No mastoid effusion. Orbital cavities: No acute abnormalities. Bones/joints: No acute fracture. Soft tissues: No soft tissue hematoma. IMPRESSION: No acute intracranial abnormality, as above. at 1657 Reported and signed by: Yosi Padron M.D. PAGE 1 Signed Report (CONTINUED) Name: BRENNAN SALAS [facility] : 1940 Age/S: 82 / M [address] [place] [address] Unit #: [id number] Loc: [place] [address] Phys: Arthur Fuentes MD Acct: [id number] Dis Date: Status: ADM IN PHONE #: [phone] Exam Date: 08/22/2022 1546 FAX #: [phone] Reason: FALL-HIT RIGHT OCCIPTAL AREA ON FLOOR; ON PLAVI EXAMS: CPT CODE: [id number] CT HEAD/BRAIN W/O CONT 79228 (Continued) CC: Arthur Fuentes Technologist:Mabel Mcgowan, RT(R)(CT); Harpreet Jung CTDI: DLP: Trnscb Date/Time: 08/22/2022 (1656) [email or web address] Orig Print D/T: S: 08/22/2022 (1657) PAGE 2 Signed Report- XR SHOULDER 2 + V RT 2022-08-22 00:00:00 [facility] 1940 Sex: M FAX: Arthur Ceja [phone] [place]: St: ADM Name: BRENNAN SALAS [facility] : 1940 Age/S: 82/M [address] [place] [address] Unit #: [id number] Loc: [address] [place] [address] Phys: Arthur Fuentes MD Acct: [id number] Dis Date: Status: ADM IN PHONE #: [phone] Exam Date: 08/22/2022 1535 FAX #: [phone] Reason: FALL ON RIGHT SIDE, C/O RIGHT SHOULDER PAIN EXAMS: CPT CODE: [id number] XR SHOULDER 2 + V RT 35088 PROCEDURE INFORMATION: Exam: XR Right Shoulder Exam date and time: 08/22/2022 3:36 PM Age: 82 years old Clinical indication: Pain; Shoulder; Right; Additional info: Fall on right side, C/O right shoulder pain TECHNIQUE: Imaging protocol: Radiologic exam of the right shoulder. Views: 2 or more views. AP INT/ EXT ROTATION, SCAPULAR Y COMPARISON: CR XR CHEST 1V 08/16/2022 5:01AM FINDINGS: Bones/joints: There is normal alignment at the glenohumeral joint. There are no fractures or dislocations. The acromioclavicular joint and coracoclavicular spaces are intact. The visualized scapula and clavicle are unremarkable. Soft tissues: There are no radiopaque foreign bodies. Notes: If there is further concern, follow-up radiographs or MRI of the shoulder may be performed for complete assessment. IMPRESSION: No acute findings. at 1751 Reported and signed by: Ramakrishna Dhaliwal M.D. CC: Arthur Fuentes Technologist: PEPE Centeno) Trnscrd Date/Time/By: 08/22/2022 (1750) : By: [email or web address] Orig Print D/T: S: 08/22/2022 (3395) PAGE 1 Signed ReportUA RFLX MICR CULT IF [id number] 12:22:00 Test Item Value Reference Range Interpretation Comments UA COLOR (test code = COLU) YELLOW YEL/STRAW UA APPEARANCE (test code = APPU) CLEAR CLEAR UA GLUCOSE DIPSTICK (test code = NEGATIVE NEGATIVE DGLUU) UA BILIRUBIN DIPSTICK (test code NEGATIVE NEGATIVE = BILU) UA KETONE DIPSTICK (test code = NEGATIVE NEGATIVE KETU) UA SPECIFIC GRAVITY (test code = 1.011 1.005-1.030 N SGU) UA BLOOD DIPSTICK (test code = NEGATIVE NEGATIVE SUZETTE) UA PH DIPSTICK (test code = KEREN) 5.0 5.0-7.0 N UA PROTEIN DIPSTICK (test code = NEGATIVE NEGATIVE PROU) UA UROBILINIOGEN DIPSTICK (test 0.2 mg/dL 0.2-1.0 code = URO) UA NITRITE DIPSTICK (test code = NEGATIVE NEGATIVE LADONNA) UA LEUKOCYTE ESTERASE DIPSTICK NEGATIVE NEGATIVE (test code = LEUU) UA WBC (test code = WBCU) 0-3 WBC/HPF 0-3 UA RBC (test code = RBCU) 0-3 RBC/HPF 0-3 UA WBC NO REFLEX (test code = 0-3 WBC/HPF 0-3 WBCUCL) UA BACTERIA (test code = BACU) TRACE /HPF NONE SEEN UA SQUAMOUS CELLS (test code = 0-5 /HPF NONE SEEN SQU) UA HYALINE CAST (test code = 6-10 /LPF NONE SEEN HYALU) UA MUCUS (test code = MUCU) TRACE /LPF NONE SEEN Indication for culture: RiskForSepsis-no oth srcSpecimen Description: STRAIGHT CATHCBC W/AUTO [id number] 08:01:00 Test Item Value Reference Range Interpretation Comments WHITE BLOOD CELL (test code = 9.4 x10 3/uL 4.5-11.0 N WBC) RED BLOOD CELL (test code = 2.96 x10 6/uL 4.00-5.60 L RBC) HEMOGLOBIN (test code = HGB) 8.9 g/dL 12.5-16.9 L HEMATOCRIT (test code = HCT) 28.5 % 37.5-50.7 L MEAN CELL VOLUME (test code = 96.3 fL 81.0-99.0 N MCV) MEAN CELL HGB (test code = MCH) 30.1 pg 27.0-33.0 N MEAN CELL HGB CONCETRATION 31.2 g/dL 33.0-37.0 L (test code = MCHC) RED CELL DISTRIBUTION WIDTH CV 14.9 % 11.5-14.5 H (test code = RDW) RED CELL DISTRIBUTION WIDTH SD 50.4 fL 37.0-54.0 N (test code = RDW-SD) PLATELET COUNT (test code = 444 x10 3/uL 150-400 H PLT) MEAN PLATELET VOLUME (test code 9.6 fL 7.0-9.0 H = MPV) NEUTROPHIL % (test code = NT%) 73.3 % 56.0-77.0 N IMMATURE GRANULOCYTE % (test 1.0 % 0.0-2.0 N code = IG%) LYMPHOCYTE % (test code = LY%) 9.9 % 14.0-32.0 L MONOCYTE % (test code = MO%) 8.2 % 4.8-9.0 N EOSINOPHIL % (test code = EO%) 7.0 % 0.3-3.7 H BASOPHIL % (test code = BA%) 0.6 % 0.0-2.0 N NUCLEATED RBC % (test code = 0.0 % 0-0 N NRBC%) NEUTROPHIL # (test code = NT#) 6.91 x10 3/uL 2.0-7.6 N IMMATURE GRANULOCYTE # (test 0.09 x10 3/uL 0.00-0.03 H code = IG#) LYMPHOCYTE # (test code = LY#) 0.93 x10 3/uL 1.0-3.8 L MONOCYTE # (test code = MO#) 0.77 x10 3/uL 0.1-0.8 N EOSINOPHIL # (test code = EO#) 0.66 x10 3/uL 0.0-0.2 H BASOPHIL # (test code = BA#) 0.06 x10 3/uL 0.0-0.2 N NUCLEATED RBC # (test code = 0.00 x10 3/uL 0.0-0.1 N NRBC#) MANUAL DIFF REQUIRED (test code NO = MDIFF) BASIC METABOLIC [id number] 07:51:00 Test Item Value Reference Range Interpretation Comments SODIUM (test code = 141 mEq/L 134-147 N NA) POTASSIUM (test code 4.2 mEq/L 3.4-5.0 N = K) CHLORIDE (test code 104 mEq/L 100-108 N = CL) CARBON DIOXIDE (test 30 mEq/l 21-33 N code = CO2) ANION GAP (test code 12 0-20 N = GAP) GLUCOSE (test code = 98 mg/dL 70-110 N GLU) BLOOD UREA NITROGEN 33 mg/dL 7-18 H (test code = BUN) GLOMERULAR 29.5 70-80 L The Glomerular FILTRATION RATE Filtration R ate is a (test code = GFR) calculated parameterbased on serum Creatinine, pat ient age and sex. GFR jaida barriosless than 60 mL/min/ 1.73 square meters a re indicative ofCh ronic Kidney Disease. Values less than 15 mL/min/1.73squa re meters indicate Kidney failure. The calculation forGFR is based on the CKD-EPI (2020) calculat ion. This formulais race indifferent and is the recommended for alireza for GFRby the [facility] on for Adults.The GFR will not calculate if th e sex is unknown or if thepatient's ag e is <18 years. CREATININE (test 2.2 mg/dL 0.6-1.3 H code = CREAT) CALCIUM (test code = 9.2 mg/dL 8.0-10.5 N CA) [id number] 07:51:00 Test Item Value Reference Range Interpretation Comments ALBUMIN (test code = ALB) 3.50 g/dL 3.4-5.0 N [id number] 07:51:00 Test Item Value Reference Range Interpretation Comments PREALBUMIN (test code = PREALB) 14.3 mg/dL 16.0-40.0 L CBC W/AUTO [id number] 07:31:00 Test Item Value Reference Range Interpretation Comments WHITE BLOOD CELL (test code = 8.7 x10 3/uL 4.5-11.0 N WBC) RED BLOOD CELL (test code = 3.02 x10 6/uL 4.00-5.60 L RBC) HEMOGLOBIN (test code = HGB) 9.1 g/dL 12.5-16.9 L HEMATOCRIT (test code = HCT) 28.5 % 37.5-50.7 L MEAN CELL VOLUME (test code = 94.4 fL 81.0-99.0 N MCV) MEAN CELL HGB (test code = MCH) 30.1 pg 27.0-33.0 N MEAN CELL HGB CONCETRATION 31.9 g/dL 33.0-37.0 L (test code = MCHC) RED CELL DISTRIBUTION WIDTH CV 14.3 % 11.5-14.5 N (test code = RDW) RED CELL DISTRIBUTION WIDTH SD 47.1 fL 37.0-54.0 N (test code = RDW-SD) PLATELET COUNT (test code = 293 x10 3/uL 150-400 N PLT) MEAN PLATELET VOLUME (test code 9.7 fL 7.0-9.0 H = MPV) NEUTROPHIL % (test code = NT%) 64.3 % 56.0-77.0 N IMMATURE GRANULOCYTE % (test 1.1 % 0.0-2.0 N code = IG%) LYMPHOCYTE % (test code = LY%) 14.4 % 14.0-32.0 N MONOCYTE % (test code = MO%) 12.6 % 4.8-9.0 H EOSINOPHIL % (test code = EO%) 6.9 % 0.3-3.7 H BASOPHIL % (test code = BA%) 0.7 % 0.0-2.0 N NUCLEATED RBC % (test code = 0.0 % 0-0 N NRBC%) NEUTROPHIL # (test code = NT#) 5.59 x10 3/uL 2.0-7.6 N IMMATURE GRANULOCYTE # (test 0.10 x10 3/uL 0.00-0.03 H code = IG#) LYMPHOCYTE # (test code = LY#) 1.25 x10 3/uL 1.0-3.8 N MONOCYTE # (test code = MO#) 1.10 x10 3/uL 0.1-0.8 H EOSINOPHIL # (test code = EO#) 0.60 x10 3/uL 0.0-0.2 H BASOPHIL # (test code = BA#) 0.06 x10 3/uL 0.0-0.2 N NUCLEATED RBC # (test code = 0.00 x10 3/uL 0.0-0.1 N NRBC#) MANUAL DIFF REQUIRED (test code NO = MDIFF) COMPREHENSIVE METABOLIC [id number] 07:24:00 Test Item Value Reference Range Interpretation Comments SODIUM (test code = 138 mEq/L 134-147 N NA) POTASSIUM (test code 4.0 mEq/L 3.4-5.0 N = K) CHLORIDE (test code 105 mEq/L 100-108 N = CL) CARBON DIOXIDE (test 25 mEq/l 21-33 N code = CO2) ANION GAP (test code 12 0-20 N = GAP) GLUCOSE (test code = 107 mg/dL 70-110 N GLU) BLOOD UREA NITROGEN 29 mg/dL 7-18 H (test code = BUN) GLOMERULAR 35.2 70-80 L The Glomerular FILTRATION RATE Filtration R ate is a (test code = GFR) calculated parameterbased on serum Creatinin e, patient age and sex. GFR valuesless than 60 mL/min/1.73 squ are meters are marleny cative ofChronic Kidne y Disease. Values less than 15 mL/min/1.73squa re meters indicate Kidney failure. The calculation for GFR is based on the CK D-EPI (2020) calculat ion. This formulais race indifferent and is the recommended for alireza for GFRby the N [facility] on for Adults.The GFR will not calculate i f the sex is unknown or if thepatient's ag e is <18 years. CREATININE (test 1.9 mg/dL 0.6-1.3 H code = CREAT) TOTAL PROTEIN (test 5.8 g/dL 6.4-8.2 L code = PROT) ALBUMIN (test code = 3.30 g/dL 3.4-5.0 L ALB) CALCIUM (test code = 9.4 mg/dL 8.0-10.5 N CA) BILIRUBIN TOTAL 0.60 mg/dL 0.0-1.0 N (test code = BILT) SGOT/AST (test code 20 IUnit/L 15-37 N = AST) SGPT/ALT (test code < 7 IUnit/L 30-65 L = ALT) ALKALINE PHOSPHATASE 69 IUnit/L 20-125 N TOTAL (test code = ALKP) [id number] 07:24:00 Test Item Value Reference Range Interpretation Comments MAGNESIUM (test code = MAG) 2.11 mg/dL 1.80-2.40 N COVID 19 INHOUSE [id number] 15:29:00 Test Item Value Reference Range Interpretation Comments COVID 19 INHOUSE Negative Negative A negative result is AG (test code = presumptive and should be [id number]) confirmedwith a n FDA authorized mole cular assay, if necessary fo rpatient management.A po sitive result does not rule out co-infections w ithother pathogens.This test detects both viable (li ve) and non-viable,SARS -CoV, and SARS-CoV-2. Tarah t performance dep ends on theamount of vi tyra (antigen) in e sample.This tarah t has not been FDA cleare d or approved; the t est hasbeen authorized by Carly HOLT under an Emergency Use Authorization(E UA) for use by laboratories certified under the CLIA thatmeet the requirements to perform moderate, high or waivedcomplexit y tests. BASIC METABOLIC [id number] 02:26:00 Test Item Value Reference Range Interpretation Comments SODIUM (test code = 139 mEq/L 134-147 N NA) POTASSIUM (test code 4.8 mEq/L 3.4-5.0 N = K) CHLORIDE (test code 107 mEq/L 100-108 N = CL) CARBON DIOXIDE (test 28 mEq/l 21-33 N code = CO2) ANION GAP (test code 9 0-20 N = GAP) GLUCOSE (test code = 107 mg/dL 70-110 N GLU) BLOOD UREA NITROGEN 37 mg/dL 7-18 H (test code = BUN) GLOMERULAR 33.1 70-80 L The Glomerular FILTRATION RATE Filtration R ate is a (test code = GFR) calculated parameterbased on serum Creatinine, pat ient age and sex. GFR va luesless than 60 mL/min/ 1.73 square meters a re indicative ofCh ronic Kidney Disease. Values less than 15 mL/min/1.73squa re meters indicate Kidney failure. The calculation forGFR is based on the CKD-EPI (2020) calculat ion. This formulais race indifferent and is the recommended for alireza for GFRby the [facility] for Ad[facility].The GFR will not calculate if th e sex is unknown or if thepatient's ag e is <18 years. CREATININE (test 2.0 mg/dL 0.6-1.3 H code = CREAT) CALCIUM (test code = 9.6 mg/dL 8.0-10.5 N CA) [id number] 02:26:00 Test Item Value Reference Range Interpretation Comments MAGNESIUM (test code = MAG) 2.40 mg/dL 1.80-2.40 N CBC W/AUTO [id number] 02:10:00 Test Item Value Reference Range Interpretation Comments WHITE BLOOD CELL (test code = 8.9 x10 3/uL 4.5-11.0 N WBC) RED BLOOD CELL (test code = 3.06 x10 6/uL 4.00-5.60 L RBC) HEMOGLOBIN (test code = HGB) 9.3 g/dL 12.5-16.9 L HEMATOCRIT (test code = HCT) 28.5 % 37.5-50.7 L MEAN CELL VOLUME (test code = 93.1 fL 81.0-99.0 N MCV) MEAN CELL HGB (test code = MCH) 30.4 pg 27.0-33.0 N MEAN CELL HGB CONCETRATION 32.6 g/dL 33.0-37.0 L (test code = MCHC) RED CELL DISTRIBUTION WIDTH CV 13.9 % 11.5-14.5 N (test code = RDW) RED CELL DISTRIBUTION WIDTH SD 46.1 fL 37.0-54.0 N (test code = RDW-SD) PLATELET COUNT (test code = 231 x10 3/uL 150-400 N PLT) MEAN PLATELET VOLUME (test code 9.3 fL 7.0-9.0 H = MPV) NEUTROPHIL % (test code = NT%) 65.2 % 56.0-77.0 N IMMATURE GRANULOCYTE % (test 0.7 % 0.0-2.0 N code = IG%) LYMPHOCYTE % (test code = LY%) 17.2 % 14.0-32.0 N MONOCYTE % (test code = MO%) 11.1 % 4.8-9.0 H EOSINOPHIL % (test code = EO%) 5.2 % 0.3-3.7 H BASOPHIL % (test code = BA%) 0.6 % 0.0-2.0 N NUCLEATED RBC % (test code = 0.0 % 0-0 N NRBC%) NEUTROPHIL # (test code = NT#) 5.80 x10 3/uL 2.0-7.6 N IMMATURE GRANULOCYTE # (test 0.06 x10 3/uL 0.00-0.03 H code = IG#) LYMPHOCYTE # (test code = LY#) 1.53 x10 3/uL 1.0-3.8 N MONOCYTE # (test code = MO#) 0.99 x10 3/uL 0.1-0.8 H EOSINOPHIL # (test code = EO#) 0.46 x10 3/uL 0.0-0.2 H BASOPHIL # (test code = BA#) 0.05 x10 3/uL 0.0-0.2 N NUCLEATED RBC # (test code = 0.00 x10 3/uL 0.0-0.1 N NRBC#) MANUAL DIFF REQUIRED (test code NO = MDIFF) - DUP VEIN [id number] 00:00:00 [facility] 1940 Sex: M Name: BRENNAN SALAS [facility] : 1940 Age/S: 82 / M [address] [place] [address] Unit #: [id number] Loc: [place] [address] Phys: Pamela Burnette Acct: [id number] Dis Date: Status: ADM IN PHONE #: [phone] Exam Date: 08/16/2022 1409 FAX #: [phone] Reason: R/O DVT EXAMS: CPT CODE: [id number] DUP VEIN ANCA 04004 PROCEDURE INFORMATION: Exam: US Duplex Lower Extremity Veins, Bilateral Exam date and time: 08/16/2022 1:35 PM Age: 82 years old Clinical indication: Other: S/P cabg; Additional info: R/O dvt TECHNIQUE: Imaging protocol: Real-time duplex ultrasound of the bilateral extremities with 2-D sandhu scale, color Doppler flow and spectral waveform analysis including responses to compression and other maneuvers (when performed) with image documentation. Complete exam focused on the lower extremity veins. COMPARISON: US DUP VEIN ANCA 08/09/2022 5:33 PM FINDINGS: Right deep veins: Unremarkable. The common femoral, femoral, proximal profunda femoral and popliteal veins arepatent without thrombus. Normal Doppler waveforms. Normal compressibility and/or augmentation response. Right superficial veins: Saphenofemoral junction is patent without thrombus. Left deep veins: Unremarkable. The common femoral, femoral, proximal profunda femoral and popliteal veins are patent without thrombus. Normal Doppler waveforms. Normal compressibility and/or augmentation response. Left superficial veins: Saphenofemoral junction is patent without thrombus. Soft tissues: Unremarkable. IMPRESSION: No evidence of deep vein thrombosis. at 1501 Reported and signed by: Aniket Loredo M.D. CC: VP DATA; Salazar Burton MD; Pamela PINO Technologist: Erica De Guzman RDMS(Facundo)(BR) Trnohb Date/Time:08/16/2022 (1500) [email or web address] Orig Print D/T: S: 08/16/2022 (1501) Probe: PAGE 1 Signed Report- XR CHEST 1 [id number] 00:00:00 [facility] 1940 Sex: M FAX: VP DATA, [place]: GC St: ADM FAX: Salazar Delarosa [phone] FAX: Pamela Camacho [phone] Name: BRENNAN SALAS [facility] : 1940 Age/S: 82/M [address] [place] [address] BlvdUnit #: [id number] Loc: [place] [address] Phys: Pamela Burnette Acct: [id number] Dis Date: Status: ADM IN PHONE #: [phone] Exam Date: 08/16/2022 0655 FAX #: [phone] Reason: Cardiac Surgery Post Op EXAMS: CPT CODE: [id number] XR CHEST 1 V 57419 PROCEDURE INFORMATION: Exam: XR Chest Exam date and time: 08/16/2022 5:01 AM Age: 82 years old Clinical indication: Other: Cardiac surgery post op TECHNIQUE: Imaging protocol: Radiologic exam of the chest. Views: 1 view. COMPARISON: CR XRCHEST 1V 08/15/2022 4:54 AM FINDINGS: Lungs: Right lung is grossly clear. Pleural spaces: Unchanged small left pleural effusion with left basilar airspace disease. No pneumothorax. No pneumothorax. Heart/Mediastinum: Unchanged cardiomediastinal silhouette. Vasculature: Aortic arch calcifications. Bones/joints: Median sternotomy changes. IMPRESSION: Unchanged small left pleural effusion with left basilar airspace disease. at 1035 Reported and signed by: Sha Gordon M.D. CC: VP DATA; Salazar Burton MD; Pamela Burnette PATechnologist: RT Madiha(R) Trnscrd Date/Time/By: 08/16/2022 (3788) : By: [email or web address] Orig Pr int D/T: S: 08/16/2022 (1031) PAGE 1 Signed ReportBASIC METABOLIC PANEL 2022-08-15 02:25:00 Test Item Value Reference Range Interpretation Comments SODIUM (test code = 138 mEq/L 134-147 N NA) POTASSIUM (test code 4.1 mEq/L 3.4-5.0 N = K) CHLORIDE (test code 109 mEq/L 100-108 H = CL) CARBON DIOXIDE (test 26 mEq/l 21-33 N code = CO2) ANION GAP (test code 7 0-20 N = GAP) GLUCOSE (test code = 109 mg/dL 70-110 N GLU) BLOOD UREA NITROGEN 36 mg/dL 7-18 H (test code = BUN) GLOMERULAR 35.2 70-80 L The Glomerular FILTRATION RATE Filtration R ate is a (test code = GFR) calculated parameterbased on serum Creatinine, pat ient age and sex. GFR va luesless than 60 mL/min/ 1.73 square meters a re indicative ofCh ronic Kidney Disease. Values less than 15 mL/min/1.73squa re meters indicate Kidney failure. The calculation forGFR is based on the CKD-EPI (2020) calculat ion. This formulais race indifferent and is the recommended for alireza for GFRby the [facility] for Ad[facility].The GFR will not calculate if th e sex is unknown or if thepatient's ag e is <18 years. CREATININE (test 1.9 mg/dL 0.6-1.3 H code = CREAT) CALCIUM (test code = 9.2 mg/dL 8.0-10.5 N CA) HEPATIC FUNCTION [id number] 02:25:00 Test Item Value Reference Range Interpretation Comments TOTAL PROTEIN (test code = PROT) 6.0 g/dL 6.4-8.2 L ALBUMIN (test code = ALB) 3.40 g/dL 3.4-5.0 N BILIRUBIN TOTAL (test code = 0.60 mg/dL 0.0-1.0 N BILT) BILIRUBIN DIRECT (test code = 0.20 MG/DL 0.0-0.30 BILD) BILIRUBIN INDIRECT (test code = 0.40 MG/DL BILIND) SGOT/AST (test code = AST) 21 IUnit/L 15-37 N SGPT/ALT (test code = ALT) < 7 IUnit/L 30-65 L ALKALINE PHOSPHATASE TOTAL (test 68 IUnit/L 20-125 N code = ALKP) [id number] 02:25:00 Test Item Value Reference Range Interpretation Comments MAGNESIUM (test code = MAG) 2.32 mg/dL 1.80-2.40 N CBC W/AUTO [id number] 02:06:00 Test Item Value Reference Range Interpretation Comments WHITE BLOOD CELL (test code = 10.6 x10 3/uL 4.5-11.0 N WBC) RED BLOOD CELL (test code = 3.02 x10 6/uL 4.00-5.60 L RBC) HEMOGLOBIN (test code = HGB) 9.2 g/dL 12.5-16.9 L HEMATOCRIT (test code = HCT) 27.6 % 37.5-50.7 L MEAN CELL VOLUME (test code = 91.4 fL 81.0-99.0 N MCV) MEAN CELL HGB (test code = MCH) 30.5 pg 27.0-33.0 N MEAN CELL HGB CONCETRATION 33.3 g/dL 33.0-37.0 N (test code = MCHC) RED CELL DISTRIBUTION WIDTH CV 13.7 % 11.5-14.5 N (test code = RDW) RED CELL DISTRIBUTION WIDTH SD 45.2 fL 37.0-54.0 N (test code = RDW-SD) PLATELET COUNT (test code = 198 x10 3/uL 150-400 N PLT) MEAN PLATELET VOLUME (test code 9.6 fL 7.0-9.0 H = MPV) NEUTROPHIL % (test code = NT%) 71.7 % 56.0-77.0 N IMMATURE GRANULOCYTE % (test 0.6 % 0.0-2.0 N code = IG%) LYMPHOCYTE % (test code = LY%) 13.1 % 14.0-32.0 L MONOCYTE % (test code = MO%) 11.7 % 4.8-9.0 H EOSINOPHIL % (test code = EO%) 2.4 % 0.3-3.7 N BASOPHIL % (test code = BA%) 0.5 % 0.0-2.0 N NUCLEATED RBC % (test code = 0.0 % 0-0 N NRBC%) NEUTROPHIL # (test code = NT#) 7.61 x10 3/uL 2.0-7.6 H IMMATURE GRANULOCYTE # (test 0.06 x10 3/uL 0.00-0.03 H code = IG#) LYMPHOCYTE # (test code = LY#) 1.39 x10 3/uL 1.0-3.8 N MONOCYTE # (test code = MO#) 1.24 x10 3/uL 0.1-0.8 H EOSINOPHIL # (test code = EO#) 0.25 x10 3/uL 0.0-0.2 H BASOPHIL # (test code = BA#) 0.05 x10 3/uL 0.0-0.2 N NUCLEATED RBC # (test code = 0.00 x10 3/uL 0.0-0.1 N NRBC#) MANUAL DIFF REQUIRED (test code NO = MDALESSIA) - US SOFT TISSUE [id number] 00:00:00 [facility] 1940 Sex: M Name: BRENNAN SALAS [facility] : 1940 Age/S: 82 / M [address] [place] [address] Blvd Unit #: [id number] Loc: [place] [address] Phys: Kel Agustin MD Acct: [id number] Dis Date: Status: ADM IN PHONE #: [phone] Exam Date: 08/15/2022 1314 FAX #: [phone] Reason: REEVAL ANCA PLEURAL EFF EXAMS: CPT CODE: [id number] US SOFT TISSUE TORSO [id number] PROCEDURE INFORMATION: Exam: US Chest,Pleural Space Exam date and time: 08/15/2022 12:26 PM Age: 82 years old Clinical indication: Screening exam; Other screening; Additional info: Reeval anca pleural eff TECHNIQUE: Imaging protocol: Real time ultrasound of the chest was performed with image documentation. Exam focused on the pleural space. COMPARISON: US SOFT TISSUE-TORSO 08/13/2022 3:41 PM FINDINGS: Pleural spaces: There are small bilateral pleural effusions. IMPRESSION: Small bilateral pleural effusions. at 1351 Reported and signed by: Alfreda Joseph M.D. CC: VP DATA; Salazar Burton MD; Kel Agustin MD Technologist: Kavita Vera Trnscb Date/Time: 08/15/2022 (1350) [email or web address] Orig Print D/T: S: 08/15/2022 (325) Probe: PAGE 1 Signed Report- XR CHEST 1 [id number] 00:00:00[facility] 1940 Sex: M FAX: VP DATA, [place]: St: ADM FAX: Salazar Delarosa [phone] FAX: Pamela Camacho [phone] Name: BRENNAN SALAS [facility] : 1940 Age/S: 82/M [address] [place] [address] BlvdUnit #: [id number] Loc: [address] [address] Phys: Pamela Burnette Acct: [id number] Dis Date: Status: ADM IN PHONE #: [phone] Exam Date: 08/15/2022 0500 FAX #: [phone] Reason: Cardiac Surgery Post Op EXAMS: CPT CODE: [id number] XR CHEST 1 V [id number] PROCEDURE INFORMATION: Exam: XR ChestExam date and time: 08/15/2022 4:54 AM Age: 82 years old Clinical indication: Other: Cardiac surgery post op TECHNIQUE: Imaging protocol: Radiologic exam of the chest. Views: 1 view. COMPARISON: CR XR CHEST 1V 08/14/2022 4:58 AM FINDINGS: Lungs: Retrocardiac airspace disease. Pleural spaces: No pleuraleffusion. Heart/Mediastinum: Cardiomegaly with minimal central venous congestion. Vasculature: There is atherosclerotic calcification of the aorta. Bones/joints: Prior sternotomy changes. Cervical hardware is partially seen. IMPRESSION: Cardiomegaly with minimal central venous congestion. at 0845 Reported and signed by: Rafi Hinton CC: VP DATA; Salazar Burton MD; Pamela PINO Technologist: RT Livia(R) Trnscrd Date/Time/By: 08/15/2022 (0845) : By: [email or web address] Orig Print D/T: S: 08/15/2022 (0846) PAGE 1 Signed [id number] 14:20:00 Test Item Value Reference Range Interpretation Comments SURGICAL (test code = SR) R UN DATE: 08/14/22 [place] - [facility] PAGE 1 RUN TIME: 1420 Specimen Inquiry RUN USER: INTERFACE P ATIENT: SALASBRENNAN EMMANUEL LOC: MIRZA U #: [id number] AGE/SX: 82/M ROOM: [facility] RE08/09/22REG DR: Salazar Burton : 44 BED: 1 DIS: STATUS: ADM IN TLOC: SPEC #: [id number] RECD: 08/11/22 STATUS: KIRSTIE RE #: [id number] PARMINDER: 08/10/22 [facility] DR: Salazar Burton MD ENTERED: 08/11/22 SP TYPE: SURGICAL OTHR DR: No Primary or Family Physician VP DATA, Logan Calix MD, Wajid DO Mouchli, Anas MD Quaddoura, Amer A MDORDERED: 92590, ANATOMIC SPEC COPIES TO: No Primary or Family Physician VP DATA, Logan Calix MD [address] [place] [address] Salazar Burton MD [address] [place] [address]. [address] [place] [id number] Devin Fox DO [address] [place] [address] Reginaldo Brown MD [address] [place] [address] Breezy Quach MD [address] [address] PROCEDURES: 17845 (08/11/22) TISSUES: A. ATRIUM - LEFT ATRIAL APPENDAGE CONTINUED ON NEXT PAGE R UN DATE: 08/14/22 [place] - LAB PAGE 2 RUN TIME: 1420 Specimen Inquiry RUN USER: INTERFACE S PEC #: [id number] PATIENT: BRENNAN SALAS #[id number] (Continued) CLINICAL HISTORY SAME FINAL DIAGNOSIS Heart, left atrial appendage, wedge biopsy: Myocardium with focal mild ischemic change. GROSS DESCRIPTION Received in formalin labeled "left atrial appendage "is a wedge biopsy of heart, 3.4 x 2.8x 2.7 cm, sectioned and entirely submitted (A)-(B). Technical component performed at [facility],[address] [place] [address], [place] [address] Unless gross only, the diagnosis is based upon microscopic examination.Immunohistochemistr y: This test was developed and its performance characteristicsdetermined by this laboratory. It has not been approved nor does it need approvalby the [place] FDA. Appropriate positive and negative controls are reviewed and judgedto be acceptable. This laboratory is certified under the Clinical Laboratory ImprovementAmendments (CLIA-88) as qualified to perform high complexity clinical laboratory testing. CLINICAL INFORMATION CAD -- Signed SIGNATURE ON FILE Jp Clements 08/14/22 1420 END OF REPORT BASIC METABOLIC [id number] 04:11:00 Test Item Value Reference Range Interpretation Comments SODIUM (test code = 137 mEq/L 134-147 N NA) POTASSIUM (test code 4.1 mEq/L 3.4-5.0 N = K) CHLORIDE (test code 104 mEq/L 100-108 N = CL) CARBON DIOXIDE (test 27 mEq/l 21-33 N code = CO2) ANION GAP (test code 10 0-20 N = GAP) GLUCOSE (test code = 107 mg/dL 70-110 N GLU) BLOOD UREA NITROGEN 33 mg/dL 7-18 H (test code = BUN) GLOMERULAR 33.1 70-80 L The Glomerular FILTRATION RATE Filtration R ate is a (test code = GFR) calculated parameterbased on serum Creatinine, pat ient age and sex. GFR va luesless than 60 mL/min/ 1.73 square meters a re indicative ofCh ronic Kidney Disease. Values less than 15 mL/min/1.73squa re meters indicate Kidney failure. The calculation forGFR is based on the CKD-EPI (2020) calculat ion. This formulais race indifferent and is the recommended for alireza for GFRby the Natio nal Kidney Foundati on for Adults.The GFR will not calculate if th e sex is unknown or if thepatient's ag e is <18 years. CREATININE (test 2.0 mg/dL 0.6-1.3 H code = CREAT) CALCIUM (test code = 8.7 mg/dL 8.0-10.5 N CA) [id number] 04:11:00 Test Item Value Reference Range Interpretation Comments MAGNESIUM (test code = MAG) 2.49 mg/dL 1.80-2.40 H CBC W/AUTO [id number] 04:07:00 Test Item Value Reference Range Interpretation Comments WHITE BLOOD CELL (test code = 9.4 x10 3/uL 4.5-11.0 N WBC) RED BLOOD CELL (test code = 2.85 x10 6/uL 4.00-5.60 L RBC) HEMOGLOBIN (test code = HGB) 8.5 g/dL 12.5-16.9 L HEMATOCRIT (test code = HCT) 26.1 % 37.5-50.7 L MEAN CELL VOLUME (test code = 91.6 fL 81.0-99.0 N MCV) MEAN CELL HGB (test code = MCH) 29.8 pg 27.0-33.0 N MEAN CELL HGB CONCETRATION 32.6 g/dL 33.0-37.0 L (test code = MCHC) RED CELL DISTRIBUTION WIDTH CV 13.3 % 11.5-14.5 N (test code = RDW) RED CELL DISTRIBUTION WIDTH SD 44.2 fL 37.0-54.0 N (test code = RDW-SD) PLATELET COUNT (test code = 135 x10 3/uL 150-400 L PLT) MEAN PLATELET VOLUME (test code 10.8 fL 7.0-9.0 H = MPV) NEUTROPHIL % (test code = NT%) 76.9 % 56.0-77.0 N IMMATURE GRANULOCYTE % (test 0.4 % 0.0-2.0 N code = IG%) LYMPHOCYTE % (test code = LY%) 11.1 % 14.0-32.0 L MONOCYTE % (test code = MO%) 9.7 % 4.8-9.0 H EOSINOPHIL % (test code = EO%) 1.6 % 0.3-3.7 N BASOPHIL % (test code = BA%) 0.3 % 0.0-2.0 N NUCLEATED RBC % (test code = 0.0 % 0-0 N NRBC%) NEUTROPHIL # (test code = NT#) 7.22 x10 3/uL 2.0-7.6 N IMMATURE GRANULOCYTE # (test 0.04 x10 3/uL 0.00-0.03 H code = IG#) LYMPHOCYTE # (test code = LY#) 1.04 x10 3/uL 1.0-3.8 N MONOCYTE # (test code = MO#) 0.91 x10 3/uL 0.1-0.8 H EOSINOPHIL # (test code = EO#) 0.15 x10 3/uL 0.0-0.2 N BASOPHIL # (test code = BA#) 0.03 x10 3/uL 0.0-0.2 N NUCLEATED RBC # (test code = 0.00 x10 3/uL 0.0-0.1 N NRBC#) MANUAL DIFF REQUIRED (test code NO = MDIFF) - XR CHEST 1 [id number] 00:00:00 [facility] 1940 Sex: M FAX: VP DATA, [place]: St: ADM FAX: Salazar Delarosa [phone] FAX: Pamela Camacho [phone] Name: BRENNAN SALAS [facility] : 1940 Age/S: 82/M [address] [place] [address] Unit #: [id number] Loc: G.2202 [place] [address] Phys: Pamela Burnette Acct: [id number] Dis Date: Status: ADM IN PHONE #: [phone] Exam Date: 08/14/202248 FAX #: [phone] Reason: Cardiac Surgery Post Op EXAMS: CPT CODE: [id number] XR CHEST 1 V 58523 PROCEDURE INFORMATION: Exam: XR Chest Exam date and time: 08/14/2022 4:58 AM Age: 82 years old Clinical indication: Other: Cardiac surgery post op TECHNIQUE: Imaging protocol: Radiologic exam of the chest. Views: 1 view. COMPARISON: CR XR CHEST 1V 08/13/2022 5:58 AM FINDINGS: Tubes, catheters and devices: Stable right IJ central line. Lungs: The bilateral lung opacities are grossly stable. Pleural spaces: Stable left pleural effusion.Heart/Mediastinum: The enlarged heart size is stable. Bones/joints: Stable. Median sternotomy wires.Partially imaged postoperative change in the cervical spine. IMPRESSION: Grossly stable exam. at 0809 Reported and signed by: Morteza Allen M.D. 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[facility] BASIC METABOLIC [id number] 04:39:00 Test Item Value Reference Range Interpretation Comments SODIUM (test code = 135 mEq/L 134-147 N NA) POTASSIUM (test code 3.9 mEq/L 3.4-5.0 N = K) CHLORIDE (test code 102 mEq/L 100-108 N = CL) CARBON DIOXIDE (test 26 mEq/l 21-33 N code = CO2) ANION GAP (test code 11 0-20 N = GAP) GLUCOSE (test code = 115 mg/dL 70-110 H GLU) BLOOD UREA NITROGEN 34 mg/dL 7-18 H (test code = BUN) GLOMERULAR 28.0 70-80 L The Glomerular FILTRATION RATE Filtration R ate is a (test code = GFR) calculated parameterbased on serum Creatinine, pat ient age and sex. GFR va luesless than 60 mL/min/ 1.73 square meters a re indicative ofCh ronic Kidney Disease. Values less than 15 mL/min/1.73squa re meters indicate Kidney failure. The calculation forGFR is based on the CKD-EPI (2020) calculat ion. This formulais race indifferent and is the recommended for alireza for GFRby the [facility] for Adults.The GFR will not calculate if th e sex is unknown or if thepatient's ag e is <18 years. CREATININE (test 2.3 mg/dL 0.6-1.3 H code = CREAT) CALCIUM (test code = 8.6 mg/dL 8.0-10.5 N CA) COMMENTS: POD #1HEPATIC FUNCTION [id number] 04:39:00 Test Item Value Reference Range Interpretation Comments TOTAL PROTEIN (test code = PROT) 5.5 g/dL 6.4-8.2 L ALBUMIN (test code = ALB) 3.40 g/dL 3.4-5.0 N BILIRUBIN TOTAL (test code = 0.60 mg/dL 0.0-1.0 BILT) BILIRUBIN DIRECT (test code = 0.30 MG/DL 0.0-0.30 BILD) BILIRUBIN INDIRECT (test code = 0.30 MG/DL BILIND) SGOT/AST (test code = AST) 22 IUnit/L 15-37 N SGPT/ALT (test code = ALT) < 7 IUnit/L 30-65 L ALKALINE PHOSPHATASE TOTAL (test 61 IUnit/L 20-125 N code = ALKP) COMMENTS: POD #[id number] 04:39:00 Test Item Value Reference Range Interpretation Comments MAGNESIUM (test code = MAG) 2.33 mg/dL 1.80-2.40 N COMMENTS: POD #1CBC W/AUTO [id number] 04:37:00 Test Item Value Reference Range Interpretation Comments WHITE BLOOD CELL (test code = 11.1 x10 3/uL 4.5-11.0 H WBC) RED BLOOD CELL (test code = 3.00 x10 6/uL 4.00-5.60 L RBC) HEMOGLOBIN (test code = HGB) 8.9 g/dL 12.5-16.9 L HEMATOCRIT (test code = HCT) 27.3 % 37.5-50.7 L MEAN CELL VOLUME (test code = 91.0 fL 81.0-99.0 N MCV) MEAN CELL HGB (test code = MCH) 29.7 pg 27.0-33.0 N MEAN CELL HGB CONCETRATION 32.6 g/dL 33.0-37.0 L (test code = MCHC) RED CELL DISTRIBUTION WIDTH CV 13.4 % 11.5-14.5 N (test code = RDW) RED CELL DISTRIBUTION WIDTH SD 45.0 fL 37.0-54.0 N (test code = RDW-SD) PLATELET COUNT (test code = 111 x10 3/uL 150-400 L PLT) MEAN PLATELET VOLUME (test code 10.6 fL 7.0-9.0 H = MPV) NEUTROPHIL % (test code = NT%) 78.5 % 56.0-77.0 H IMMATURE GRANULOCYTE % (test 0.5 % 0.0-2.0 N code = IG%) LYMPHOCYTE % (test code = LY%) 10.6 % 14.0-32.0 L MONOCYTE % (test code = MO%) 9.7 % 4.8-9.0 H EOSINOPHIL % (test code = EO%) 0.5 % 0.3-3.7 N BASOPHIL % (test code = BA%) 0.2 % 0.0-2.0 N NUCLEATED RBC % (test code = 0.0 % 0-0 N NRBC%) NEUTROPHIL # (test code = NT#) 8.69 x10 3/uL 2.0-7.6 H IMMATURE GRANULOCYTE # (test 0.06 x10 3/uL 0.00-0.03 H code = IG#) LYMPHOCYTE # (test code = LY#) 1.18 x10 3/uL 1.0-3.8 N MONOCYTE # (test code = MO#) 1.08 x10 3/uL 0.1-0.8 H EOSINOPHIL # (test code = EO#) 0.05 x10 3/uL 0.0-0.2 N BASOPHIL # (test code = BA#) 0.02 x10 3/uL 0.0-0.2 N NUCLEATED RBC # (test code = 0.00 x10 3/uL 0.0-0.1 N NRBC#) MANUAL DIFF REQUIRED (test code NO = MDIFF) - US SOFT TISSUE [id number] 00:00:00 [facility] 1940 Sex: M Name: BRENNAN SALAS [facility] : 1940 Age/S: 82 / M [address] [place] [address] Unit #: [id number] Loc: [place] [address] Phys: Breezy Quach MD Acct: [id number] Dis Date: Status: ADM IN PHONE #: [phone] Exam Date: 08/13/2022 1619 FAX #: [phone] Reason: LEFT PLEURAL EFFUSION EXAMS: CPT CODE: [id number] US SOFT TISSUE TORSO 13472 PROCEDURE INFORMATION: Exam: US Chest,Pleural Space Exam date and time: 08/13/2022 3:41 PM Age: 82 years old Clinical indication: Screeningexam; Other screening; Patient HX: Eval pleural eff. ; Additional info: Left pleural effusion TECHNIQUE: Imaging protocol: Real time ultrasound of the chest was performed with image documentation. Examfocused on the pleural space. COMPARISON: CT CHEST W/O CONTRAST 08/09/2022 5:11 PM FINDINGS: Pleural spaces: There is moderate bilateral pleural effusions. IMPRESSION: Moderate bilateral pleural effusions, with basilar atelectasis. at 2026 Reported and signed by: Tomy Marion M.D. CC: VP DATA; Salazar Burton MD; Breezy Quach MD Technologist: Beatrice Moreno RDMS(AB) Trnscb Date/Time: 08/13/2022 (2026) [email or web address] Orig Print D/T: S: 08/13/2022 (2026) Probe: PAGE 1 Signed Report- XR CHEST 1 [id number] 00:00:00 [facility] 1940 Sex: M FAX: VP DATA, [place]: St: ADM FAX: Salazar Delarosa [phone] FAX: Pamela Camacho [phone] Name: BRENNAN SALAS [facility] : 1940 Age/S: 82/M [address] [place] [address] Unit #: [id number] Loc: [address] [place] [address] Phys: Pamela Burnette Acct: [id number] Dis Date: Status: ADM IN PHONE #: [phone] Exam Date: 08/13/2022725 FAX #: [phone] Reason: Cardiac Surgery Post Op EXAMS: CPT CODE: [id number] XR CHEST 1 V 27059 PROCEDURE INFORMATION: Exam: XR ChestExam date and time: 08/13/2022 5:58 AM Age: 82 years old Clinical indication: Other: Cardiac surgery post op TECHNIQUE: Imaging protocol: Radiologic exam of the chest. Views: 1 view. COMPARISON: CR XR CHEST 1V 08/12/2022 6:25 AM FINDINGS: Tubes, catheters and devices: Stable right jugular catheter over the SVC. Stable mediastinal drain at midline. Lungs: Residual dense opacification of the left lung base and medial right base. Mild improvement on the left. Pulmonary vasculature normal. Lungs otherwiseclear. Pleural spaces: Small volume fluid suggested at the left costophrenic angle. Heart/Mediastinum: Stable moderate cardiomegaly. Vasculature: Mild aortic calcification. Diaphragm: The left hemidiaphragm is still completely obscured. Bones/joints: Sternotomy. No significant skeletal abnormality. IMPRESSION: 1. Residual dense opacification of each lung base, primarily on the left side. 2. Slight improvement of left basilar opacity since the most recent exam. 3. Probable small left pleural effusion. 4. Stable moderate cardiomegaly without significant vascular congestion. at 0754 Reported and signed by: Jose David Lazar M.D. 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[facility] RENAL FUNCTION [id number] 11:35:00 Test Item Value Reference Range Interpretation Comments SODIUM (test code = 136 mEq/L 134-147 N NA) POTASSIUM (test code 4.0 mEq/L 3.4-5.0 N = K) CHLORIDE (test code = 103 mEq/L 100-108 N CL) CARBON DIOXIDE (test 24 mEq/l 21-33 N code = CO2) ANION GAP (test code 13 0-20 N = GAP) GLUCOSE (test code = 187 mg/dL 70-110 H GLU) BLOOD UREA NITROGEN 29 mg/dL 7-18 H (test code = BUN) GLOMERULAR FILTRATION 29.5 70-80 L The Gl omerular RATE (test code = Filtration Rate is a GFR) calculated parameterbased on serum Creatinine, pat ient age and sex. GFR va luesless than 60 mL/min/ 1.73 square meters a re indicative ofCh ronic Kidney Disease. Values less than 15 mL/min/1.73squa re meters indicate Kidney failure. The calculation for GFR is based on the CK D-EPI (2020) calculat ion. This formulais race indifferent and is the recommended for alireza for GFRby the [facility] for Adults.The GFR will not calculate if th e sex is unknown or if thepatient's ag e is <18 years. 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[facility] POC ARTERIAL BLOOD [id number] 03:45:00 Test Item Value Reference Range Interpretation Comments POC ARTERIAL BLOOD GAS PH (test 7.372 7.35-7.45 N code = POCPHA) POC ARTERIAL BLOOD GAS PCO2 41.6 mmHg 35.0-45 N (test code = ARUIKY5E) POC TCO2 ARTERIAL (test code = 25.4 POCTCO2) POC ARTERIAL BLOOD GAS PO2 (test 128.6 mmHg 80-100.0 H code = KNRRY5W) POC HCO3 ARTERIAL (test code = 24.2 MMOL/L 22.0-26.0 N [id number]) POC BASE EXCESS (test code = -1.1 MMOL/L -4.0-4.0 N POCBEA) POC O2 SATURATION (test code = 98.8 % 90-100 N POCO2S) FIO2 (test code = FIO2A) 45 % PaO2/FiO2 (test code = [id number]) 285.77 mm/Hg ABG DELIVERY (test code = SOLOMON) BiPAP ABG VENT RESP RATE (test code = 14 /MIN RRA) ABG SITE (test code = SITEA) Art Line BASIC METABOLIC [id number] 03:45:00 Test Item Value Reference Range Interpretation Comments SODIUM (test code = NA/ABG) 139 mmol/L 134-147 N POTASSIUM (test code = K/ABG) 4.0 mmol/L 3.4-5.0 N CHLORIDE (test code = CL/ABG) 104 mmol/L 100-108 N CREATININE ABG (test code = 1.7 mg/dL 0.8-1.3 H CREAABG) POC IONIZED CALCIUM (test code = 1.20 MMOL/L 1.12-1.32 N POCCA) POC GLUCOSE (test code = POCGLU) 146 MG/DL 70-110 H HEMOGLOBIN [id number] 03:45:00 Test Item Value Reference Range Interpretation Comments HEMOGLOBIN ABG (test code = HGB/ABG) 9.9 G/DL 12.5-16.9 L [id number] 03:45:00 Test Item Value Reference Range Interpretation Comments HEMATOCRIT (test code = HCT/ABG) 29 % 37.5-50.7 L POC LACTIC [id number] 03:45:00 Test Item Value Reference Range Interpretation Comments POC LACTIC ACID (test code = 0.8 mmol/l 0.9-1.7 L POCLAC) BASIC METABOLIC [id number] 02:21:00 Test Item Value Reference Range Interpretation Comments SODIUM (test code = 138 mEq/L 134-147 N NA) POTASSIUM (test code 3.6 mEq/L 3.4-5.0 N = K) CHLORIDE (test code 105 mEq/L 100-108 N = CL) CARBON DIOXIDE (test 25 mEq/l 21-33 N code = CO2) ANION GAP (test code 12 0-20 N = GAP) GLUCOSE (test code = 206 mg/dL 70-110 H GLU) BLOOD UREA NITROGEN 26 mg/dL 7-18 H (test code = BUN) GLOMERULAR 35.2 70-80 L The Glomerular FILTRATION RATE Filtration R ate is a (test code = GFR) calculated parameterbased on serum Creatinine, pat ient age and sex. GFR va luesless than 60 mL/min/ 1.73 square meters a re indicative ofCh ronic Kidney Disease. Values less than 15 mL/min/1.73squa re meters indicate Kidney failure. The calculation forGFR is based on the CKD-EPI (2020) calculat ion. This formulais race indifferent and is the recommended for alireza for GFRby the [facility] for Adults.The GFR will not calculate if th e sex is unknown or if thepatient's ag e is <18 years. CREATININE (test 1.9 mg/dL 0.6-1.3 H code = CREAT) CALCIUM (test code = 8.6 mg/dL 8.0-10.5 N CA) COMMENTS: POD #1HEPATIC FUNCTION [id number] 02:21:00 Test Item Value Reference Range Interpretation Comments TOTAL PROTEIN (test code = PROT) 5.7 g/dL 6.4-8.2 L ALBUMIN (test code = ALB) 3.80 g/dL 3.4-5.0 N BILIRUBIN TOTAL (test code = 0.30 mg/dL 0.0-1.0 BILT) BILIRUBIN DIRECT (test code = 0.20 MG/DL 0.0-0.30 BILD) BILIRUBIN INDIRECT (test code = 0.10 MG/DL BILIND) SGOT/AST (test code = AST) 29 IUnit/L 15-37 N SGPT/ALT (test code = ALT) < 7 IUnit/L 30-65 L ALKALINE PHOSPHATASE TOTAL (test 57 IUnit/L 20-125 N code = ALKP) COMMENTS: POD #[id number] 02:21:00 Test Item Value Reference Range Interpretation Comments PHOSPHOROUS (test code = PHOS) 3.1 MG/DL 2.5-4.9 N COMMENTS: POD #[id number] 02:21:00 Test Item Value Reference Range Interpretation Comments MAGNESIUM (test code = MAG) 2.16 mg/dL 1.80-2.40 N COMMENTS: POD #1CALCIUM [id number] 02:00:00 Test Item Value Reference Range Interpretation Comments CALCIUM IONIZED (test code = ALANNA) 1.16 MMOL/L 1.09-1.30 N CBC W/AUTO [id number] 01:55:00 Test Item Value Reference Range Interpretation Comments WHITE BLOOD CELL (test code = 12.2 x10 3/uL 4.5-11.0 H WBC) RED BLOOD CELL (test code = 3.06 x10 6/uL 4.00-5.60 L RBC) HEMOGLOBIN (test code = HGB) 9.3 g/dL 12.5-16.9 L HEMATOCRIT (test code = HCT) 28.5 % 37.5-50.7 L MEAN CELL VOLUME (test code = 93.1 fL 81.0-99.0 N MCV) MEAN CELL HGB (test code = MCH) 30.4 pg 27.0-33.0 N MEAN CELL HGB CONCETRATION 32.6 g/dL 33.0-37.0 L (test code = MCHC) RED CELL DISTRIBUTION WIDTH CV 13.4 % 11.5-14.5 N (test code = RDW) RED CELL DISTRIBUTION WIDTH SD 46.0 fL 37.0-54.0 N (test code = RDW-SD) PLATELET COUNT (test code = 97 x10 3/uL 150-400 L PLT) MEAN PLATELET VOLUME (test code 10.8 fL 7.0-9.0 H = MPV) NEUTROPHIL % (test code = NT%) 80.0 % 56.0-77.0 H IMMATURE GRANULOCYTE % (test 0.7 % 0.0-2.0 N code = IG%) LYMPHOCYTE % (test code = LY%) 10.5 % 14.0-32.0 L MONOCYTE % (test code = MO%) 8.6 % 4.8-9.0 N EOSINOPHIL % (test code = EO%) 0.0 % 0.3-3.7 L BASOPHIL % (test code = BA%) 0.2 % 0.0-2.0 N NUCLEATED RBC % (test code = 0.0 % 0-0 N NRBC%) NEUTROPHIL # (test code = NT#) 9.73 x10 3/uL 2.0-7.6 H IMMATURE GRANULOCYTE # (test 0.08 x10 3/uL 0.00-0.03 H code = IG#) LYMPHOCYTE # (test code = LY#) 1.27 x10 3/uL 1.0-3.8 N MONOCYTE # (test code = MO#) 1.05 x10 3/uL 0.1-0.8 H EOSINOPHIL # (test code = EO#) 0.00 x10 3/uL 0.0-0.2 N BASOPHIL # (test code = BA#) 0.02 x10 3/uL 0.0-0.2 N NUCLEATED RBC # (test code = 0.00 x10 3/uL 0.0-0.1 N NRBC#) MANUAL DIFF REQUIRED (test code NO = MDIFF) - XR CHEST 1 [id number] 00:00:00 [facility] : 1940 Sex: M FAX: VP DATA, [place]: St: ADM FAX: Salazar Delarosa [phone] FAX: Pamela Camacho [phone] Name: BRENNAN SALAS [facility] [place] : 1940 Age/S: 82/M [address] [place] [address] Unit #: [id number] Loc: G.2202 [place] [address] Phys: BurnettePamela funez Acct: [id number] Dis Date: Status: ADM IN PHONE #: [phone] Exam Date: 08/12/2022716 FAX #: [phone] Reason: Cardiac Surgery Post Op Report Has Been Amended EXAMS: CPT CODE: [id number] XR CHEST 1 V 59131 Addendum - 08/12/2022 SIGNED 08/12/2022 ADDENDUM: [id number] RAD/CXR1 Notes: Findings were discussed with at 08/12/2022 9:55 AM EAP CONSULTANT. at 0955 Reported and signed by: Volodymyr Awad M.D. Report PROCEDURE INFORMATION: Exam: XRChest Exam date and time: 08/12/2022 6:25 AM Age: 82 years old Clinical indication: Other: Cardiac surgery post op TECHNIQUE: Imaging protocol: Radiologic exam of the chest. Views: 1 view. COMPARISON: 1. CR XR CHEST 1V 08/11/2022 4:58 AM 2. CR XR CHEST 1V 08/10/2022 3:48 PM FINDINGS: Tubes, catheters and devices: Left thoracostomy drain has been removed. Mediastinal drain in place. Right IJ Erick-Makayla catheter sheath in place. Lungs: Indistinct basilar opacities asymmetric on the left with obscuration ofthe left hemidiaphragm. Pleural spaces: Small left apical pneumothorax with separation less than 1 cm. Left pleural effusion subjectively increased allowing for differences in patient positioning. Small right pleural effusion unchanged. Heart/Mediastinum: Moderate prominence of the cardiomediastinal silhouette is stable allowing for differences in patient positioning. Bones/joints: Sternotomy wires are intact. IMPRESSION: 1. Minimal left apical pneumothorax. Moderate left pleural PAGE 1 Signed Report (CONTINUED) FAX: VP DATA,CHAMPAIGN [place]: St: ADM FAX: Salazar Delarosa [phone] FAX: Gio Pamela Burnette [phone] Name: BRENNAN SALAS [facility] : 1940 Age/S: 82/M [address] [place] [address] Blvd Unit #: [id number] Loc: [address] [place] [address] Phys: Pamela Burnette Acct: [id number] Dis Date: Status: ADM IN PHONE #: [phone] Exam Date: 08/12/2022716 FAX #: [phone] Reason: Cardiac Surgery Post Op Report Has Been Amended EXAMS: CPT CODE: [id number] XR CHEST 1 V 60296 (Continued) effusion subjectively enlarged. 2. Bibasilar atelectasis versus airspace disease. 3.Stable postoperative cardiomediastinal silhouette. at 0951 Reported and signed by: Volodymyr Awad M.D. 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[facility] GLUCOSE [id number] 04:52:00 Test Item Value Reference Range Interpretation Comments GLUCOSE BEDSIDE (test 99 MG/DL 70-110 N [facility] med by certified code = GLUBED) 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[facility] PLT [id number] 03:10:00 Test Item Value Reference Range Interpretation Comments PLATELET ESTIMATE (test code 100-125 THOUSAND ADEQUATE = PLTEST) CBC W/AUTO [id number] 03:10:00 Test Item Value Reference Range Interpretation Comments WHITE BLOOD CELL (test code = 12.7 x10 3/uL 4.5-11.0 H WBC) RED BLOOD CELL (test code = 3.10 x10 6/uL 4.00-5.60 L RBC) HEMOGLOBIN (test code = HGB) 9.3 g/dL 12.5-16.9 L HEMATOCRIT (test code = HCT) 29.2 % 37.5-50.7 L MEAN CELL VOLUME (test code = 94.2 fL 81.0-99.0 N MCV) MEAN CELL HGB (test code = 30.0 pg 27.0-33.0 N MCH) MEAN CELL HGB CONCETRATION 31.8 g/dL 33.0-37.0 L (test code = MCHC) RED CELL DISTRIBUTION WIDTH CV 13.3 % 11.5-14.5 N (test code = RDW) RED CELL DISTRIBUTION WIDTH SD 45.5 fL 37.0-54.0 N (test code = RDW-SD) PLATELET COUNT (test code = 99 x10 3/uL 150-400 L PLT) MEAN PLATELET VOLUME (test 10.4 fL 7.0-9.0 H code = MPV) NEUTROPHIL % (test code = NT%) 85.3 % 56.0-77.0 H IMMATURE GRANULOCYTE % (test 0.5 % 0.0-2.0 N code = IG%) LYMPHOCYTE % (test code = LY%) 5.2 % 14.0-32.0 L MONOCYTE % (test code = MO%) 8.7 % 4.8-9.0 N EOSINOPHIL % (test code = EO%) 0.1 % 0.3-3.7 L BASOPHIL % (test code = BA%) 0.2 % 0.0-2.0 N NUCLEATED RBC % (test code = 0.0 % 0-0 N NRBC%) NEUTROPHIL # (test code = NT#) 10.86 x10 3/uL 2.0-7.6 H IMMATURE GRANULOCYTE # (test 0.06 x10 3/uL 0.00-0.03 H code = IG#) LYMPHOCYTE # (test code = LY#) 0.66 x10 3/uL 1.0-3.8 L MONOCYTE # (test code = MO#) 1.10 x10 3/uL 0.1-0.8 H EOSINOPHIL # (test code = EO#) 0.01 x10 3/uL 0.0-0.2 N BASOPHIL # (test code = BA#) 0.02 x10 3/uL 0.0-0.2 N NUCLEATED RBC # (test code = 0.00 x10 3/uL 0.0-0.1 N NRBC#) MANUAL DIFF REQUIRED (test NO code = MDIFF) BASIC METABOLIC [id number] 02:40:00 Test Item Value Reference Range Interpretation Comments SODIUM (test code = 142 mEq/L 134-147 N NA) POTASSIUM (test code 4.2 mEq/L 3.4-5.0 N = K) CHLORIDE (test code 110 mEq/L 100-108 H = CL) CARBON DIOXIDE (test 25 mEq/l 21-33 N code = CO2) ANION GAP (test code 11 0-20 N = GAP) GLUCOSE (test code = 127 mg/dL 70-110 H GLU) BLOOD UREA NITROGEN 17 mg/dL 7-18 N (test code = BUN) GLOMERULAR 55.5 70-80 L The Glomerular FILTRATION RATE Filtration R ate is a (test code = GFR) calculated parameterbased on serum Creatinine, pat ient age and sex. GFR va luesless than 60 mL/min/ 1.73 square meters a re indicative ofCh ronic Kidney Disease. Values less than 15 mL/min/1.73squa re meters indicate Kidney failure. The calculation forGFR is based on the CKD-EPI (2020) calculat ion. This formulais race indifferent and is the recommended for alireza for GFRby the [facility] for Ad[facility].The GFR will not calculate if th e sex is unknown or if thepatient's ag e is <18 years. CREATININE (test 1.3 mg/dL 0.6-1.3 N code = CREAT) CALCIUM (test code = 8.3 mg/dL 8.0-10.5 N CA) COMMENTS: POD #1HEPATIC FUNCTION [id number] 02:40:00 Test Item Value Reference Range Interpretation Comments TOTAL PROTEIN (test code = PROT) 5.1 g/dL 6.4-8.2 L ALBUMIN (test code = ALB) 3.60 g/dL 3.4-5.0 N BILIRUBIN TOTAL (test code = BILT) 0.60 mg/dL 0.0-1.0 N BILIRUBIN DIRECT (test code = 0.30 MG/DL 0.0-0.30 N BILD) BILIRUBIN INDIRECT (test code = 0.30 MG/DL BILIND) SGOT/AST (test code = AST) 38 IUnit/L 15-37 H SGPT/ALT (test code = ALT) 13 IUnit/L 30-65 L ALKALINE PHOSPHATASE TOTAL (test 46 IUnit/L 20-125 code = ALKP) COMMENTS: POD #[id number] 02:40:00 Test Item Value Reference Range Interpretation Comments MAGNESIUM (test code = MAG) 2.28 mg/dL 1.80-2.40 COMMENTS: POD #1POC ARTERIAL BLOOD [id number] 02:19:00 Test Item Value Reference Range Interpretation Comments POC ARTERIAL BLOOD GAS PH (test 7.304 7.35-7.45 L code = POCPHA) POC ARTERIAL BLOOD GAS PCO2 (test 46.4 mmHg 35.0-45 H code = [id number]) POC TCO2 ARTERIAL (test code = 24.5 POCTCO2) POC ARTERIAL BLOOD GAS PO2 (test 64.1 mmHg 80-100.0 L code = QNSFI2U) POC HCO3 ARTERIAL (test code = 23.0 MMOL/L 22.0-26.0 N [id number]) POC BASE EXCESS (test code = -3.3 MMOL/L -4.0-4.0 N POCBEA) POC O2 SATURATION (test code = 89.7 % 90-100 L POCO2S) ABG DELIVERY (test code = SOLOMON) Room Air ABG SITE (test code = SITEA) Art Line BASIC METABOLIC [id number] 02:19:00 Test Item Value Reference Range Interpretation Comments SODIUM (test code = NA/ABG) 142 mmol/L 134-147 N POTASSIUM (test code = K/ABG) 4.3 mmol/L 3.4-5.0 N CHLORIDE (test code = CL/ABG) 107 mmol/L 100-108 N CREATININE ABG (test code = 1.3 mg/dL 0.8-1.3 N CREAABG) POC IONIZED CALCIUM (test code = 1.23 MMOL/L 1.12-1.32 N POCCA) POC GLUCOSE (test code = POCGLU) 125 MG/DL 70-110 H HEMOGLOBIN [id number] 02:19:00 Test Item Value Reference Range Interpretation Comments HEMOGLOBIN ABG (test code = HGB/ABG) 9.5 G/DL 12.5-16.9 L [id number] 02:19:00 Test Item Value Reference Range Interpretation Comments HEMATOCRIT (test code = HCT/ABG) 28 % 37.5-50.7 L POC LACTIC [id number] 02:19:00 Test Item Value Reference Range Interpretation Comments POC LACTIC ACID (test code = 0.9 mmol/l 0.9-1.7 N POCLAC) GLUCOSE [id number] 01:04:00 Test Item Value Reference Range Interpretation Comments GLUCOSE BEDSIDE (test 98 MG/DL 70-110 N Perfor med by certified code = GLUBED) 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[facility] - XR CHEST 1 [id number] 00:00:00 [facility] : 1940 Sex: M FAX: VP DATA, [place]: St: ADM FAX: Salazar Delarosa [phone] FAX: Pamela Camacho [phone] Name: BRENNAN SALAS [facility] : 1940 Age/S: 82/M [address] [place] [address] Unit #: [id number] Loc: G.2202 [place] [address] Phys: Pamela Burnette Acct: [id number] Dis Date: Status: ADM IN PHONE #: [phone] Exam Date: 08/11/2022 050 FAX #: [phone] Reason: Cardiac Surgery Post Op EXAMS: CPT CODE: [id number] XR CHEST 1 V [id number] PROCEDURE INFORMATION: Exam: XR Chest Exam date and time: 08/11/2022 4:58 AM Age: 82 years old Clinical indication: Other: Cardiac surgerypost op TECHNIQUE: Imaging protocol: Radiologic exam of the chest. Views: 1 view. COMPARISON: CR XRCHEST 1V 08/10/2022 3:48 PM FINDINGS: Lungs: There is opacity at the base. The patient has intervally extubated. A right IJ catheter and mediastinal tube remain in place. Pleural spaces: Unremarkable. Nopleural effusion. No pneumothorax. Heart/Mediastinum: The cardiac silhouette is enlarged. Previous midline sternotomy. Bones/joints: There has been previous cervical spinal fusion. IMPRESSION: Cardiomegaly with opacity at the left lung base. at 0730 Reported and signed by: Aniket Loredo M.D. CC: VP DATA; Salazar Burton MD; Pamela PINO Technologist: RT Livia(R) Trnscrd Date/Time/By: 08/11/2022 (0730) : By: Miriam Orig Print D/T: S: 08/11/2022 (9305) PAGE 1 Signed ReportPOC ARTERIAL BLOOD [id number] 21:48:00 Test Item Value Reference Range Interpretation Comments POC ARTERIAL BLOOD GAS PH (test 7.317 7.35-7.45 L code = POCPHA) POC ARTERIAL BLOOD GAS PCO2 (test 45.1 mmHg 35.0-45 H code = NZHCNP8W) POC TCO2 ARTERIAL (test code = 24.4 POCTCO2) POC ARTERIAL BLOOD GAS PO2 (test 178.0 mmHg 80-100.0 H code = PTWIH3D) POC HCO3 ARTERIAL (test code = 23.1 MMOL/L 22.0-26.0 N [id number]) POC BASE EXCESS (test code = -3.1 MMOL/L -4.0-4.0 N POCBEA) POC O2 SATURATION (test code = 99.5 % 90-100 N POCO2S) ABG DELIVERY (test code = SOLOMON) HFNC ABG SITE (test code = SITEA) Art Line BASIC METABOLIC [id number] 21:48:00 Test Item Value Reference Range Interpretation Comments SODIUM (test code = NA/ABG) 143 mmol/L 134-147 N POTASSIUM (test code = K/ABG) 3.6 mmol/L 3.4-5.0 N CHLORIDE (test code = CL/ABG) 109 mmol/L 100-108 H CREATININE ABG (test code = 1.4 mg/dL 0.8-1.3 H CREAABG) POC IONIZED CALCIUM (test code = 1.17 MMOL/L 1.12-1.32 N POCCA) POC GLUCOSE (test code = POCGLU) 108 MG/DL 70-110 N HEMOGLOBIN [id number] 21:48:00 Test Item Value Reference Range Interpretation Comments HEMOGLOBIN ABG (test code = HGB/ABG) 8.9 G/DL 12.5-16.9 L [id number] 21:48:00 Test Item Value Reference Range Interpretation Comments HEMATOCRIT (test code = HCT/ABG) 26 % 37.5-50.7 L POC LACTIC [id number] 21:48:00 Test Item Value Reference Range Interpretation Comments POC LACTIC ACID (test code = 1.0 mmol/l 0.9-1.7 N POCLAC) GLUCOSE [id number] 20:36:00 Test Item Value Reference Range Interpretation Comments GLUCOSE BEDSIDE (test 103 MG/DL 70-110 N [facility] med by certified code = GLUBED) 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[facility] POC ARTERIAL BLOOD [id number] 18:23:00 Test Item Value Reference Range Interpretation Comments POC ARTERIAL BLOOD GAS PH (test 7.321 7.35-7.45 L code = POCPHA) POC ARTERIAL BLOOD GAS PCO2 46.1 mmHg 35.0-45 H (test code = SVHSVS0X) POC TCO2 ARTERIAL (test code = 25.3 POCTCO2) POC ARTERIAL BLOOD GAS PO2 (test 125.2 mmHg 80-100.0 H code = ZRPIQ0E) POC HCO3 ARTERIAL (test code = 23.9 MMOL/L 22.0-26.0 N GTYOQG3D) POC BASE EXCESS (test code = -2.3 MMOL/L -4.0-4.0 N POCBEA) POC O2 SATURATION (test code = 98.6 % 90-100 N POCO2S) FIO2 (test code = FIO2A) 40 % PaO2/FiO2 (test code = [id number]) 313.00 mm/Hg ABG DELIVERY (test code = SOLOMON) Adult Vent ABG VENT MODE (test code = CPAP/PS MODEA) ABG VENT RESP RATE (test code = 17 /MIN RRA) ABG PEEP (test code = PEEPA) 5 cmH2O ABG PRESSURE SUPPORT (test code 10 cmH2O = PSABG) ABG TEMPERATURE (test code = 98 F TEMPA) ABG SITE (test code = SITEA) Art Line BASIC METABOLIC [id number] 18:23:00 Test Item Value Reference Range Interpretation Comments SODIUM (test code = NA/ABG) 142 mmol/L 134-147 N POTASSIUM (test code = K/ABG) 3.7 mmol/L 3.4-5.0 N CHLORIDE (test code = CL/ABG) 108 mmol/L 100-108 N CREATININE ABG (test code = 1.2 mg/dL 0.8-1.3 N CREAABG) POC IONIZED CALCIUM (test code = 1.17 MMOL/L 1.12-1.32 N POCCA) POC GLUCOSE (test code = POCGLU) 137 MG/DL 70-110 H HEMOGLOBIN [id number] 18:23:00 Test Item Value Reference Range Interpretation Comments HEMOGLOBIN ABG (test code = HGB/ABG) 9.5 G/DL 12.5-16.9 L [id number] 18:23:00 Test Item Value Reference Range Interpretation Comments HEMATOCRIT (test code = HCT/ABG) 28 % 37.5-50.7 L POC LACTIC [id number] 18:23:00 Test Item Value Reference Range Interpretation Comments POC LACTIC ACID (test code = 1.6 mmol/l 0.9-1.7 N POCLAC) POC ARTERIAL BLOOD [id number] 17:49:00 Test Item Value Reference Range Interpretation Comments POC ARTERIAL BLOOD GAS PH (test 7.283 7.35-7.45 LL code = POCPHA) POC ARTERIAL BLOOD GAS PCO2 44.1 mmHg 35.0-45 N (test code = WMSFVX7O) POC TCO2 ARTERIAL (test code = 22.3 POCTCO2) POC ARTERIAL BLOOD GAS PO2 (test 140.9 mmHg 80-100.0 H code = KDDKC4Z) POC HCO3 ARTERIAL (test code = 21.0 MMOL/L 22.0-26.0 L [id number]) POC BASE EXCESS (test code = -5.8 MMOL/L -4.0-4.0 L POCBEA) POC O2 SATURATION (test code = 98.9 % 90-100 N POCO2S) FIO2 (test code = FIO2A) 40 % PaO2/FiO2 (test code = TMU7UTD4) 352.25 mm/Hg ABG DELIVERY (test code = SOLOMON) Adult Vent ABG VENT MODE (test code = CPAP/PS MODEA) ABG VENT RESP RATE (test code = 22 /MIN RRA) ABG PEEP (test code = PEEPA) 5 cmH2O ABG PRESSURE SUPPORT (test code 10 cmH2O = PSABG) ABG TEMPERATURE (test code = 98 F TEMPA) ABG SITE (test code = SITEA) Art Line BASIC METABOLIC [id number] 17:49:00 Test Item Value Reference Range Interpretation Comments SODIUM (test code = NA/ABG) 141 mmol/L 134-147 N POTASSIUM (test code = K/ABG) 4.1 mmol/L 3.4-5.0 N CHLORIDE (test code = CL/ABG) 109 mmol/L 100-108 H CREATININE ABG (test code = 1.2 mg/dL 0.8-1.3 N CREAABG) POC IONIZED CALCIUM (test code = 1.18 MMOL/L 1.12-1.32 N POCCA) POC GLUCOSE (test code = POCGLU) 144 MG/DL 70-110 H HEMOGLOBIN [id number] 17:49:00 Test Item Value Reference Range Interpretation Comments HEMOGLOBIN ABG (test code = 10.3 G/DL 12.5-16.9 L HGB/ABG) [id number] 17:49:00 Test Item Value Reference Range Interpretation Comments HEMATOCRIT (test code = HCT/ABG) 30 % 37.5-50.7 L POC LACTIC [id number] 17:49:00 Test Item Value Reference Range Interpretation Comments POC LACTIC ACID (test code = 1.6 mmol/l 0.9-1.7 N POCLAC) GLUCOSE [id number] 17:11:00 Test Item Value Reference Range Interpretation Comments GLUCOSE BEDSIDE (test 147 MG/DL 70-110 H Perfor med by certified code = GLUBED) 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[facility] [id number] 16:46:00 Test Item Value Reference Range Interpretation Comments MAGNESIUM (test code = MAG) 3.07 mg/dL 1.80-2.40 H COMMENTS: On arrivalBASIC METABOLIC [id number] 16:46:00 Test Item Value Reference Range Interpretation Comments SODIUM (test code = 140 mEq/L 134-147 N NA) POTASSIUM (test code 4.2 mEq/L 3.4-5.0 N = K) CHLORIDE (test code 106 mEq/L 100-108 N = CL) CARBON DIOXIDE (test 21 mEq/l 21-33 N code = CO2) ANION GAP (test code 17 0-20 N = GAP) GLUCOSE (test code = 151 mg/dL 70-110 H GLU) BLOOD UREA NITROGEN 17 mg/dL 7-18 N (test code = BUN) GLOMERULAR 61.1 70-80 L The Glomerular FILTRATION RATE Filtration R ate is a (test code = GFR) calculated parameterbased on serum Creatinine, pat ient age and sex. GFR va luesless than 60 mL/min/ 1.73 square meters a re indicative ofCh ronic Kidney Disease. Values less than 15 mL/min/1.73squa re meters indicate Kidney failure. The calculation forGFR is based on the CKD-EPI (2020) calculat ion. This formulais race indifferent and is the recommended for alireza for GFRby the Nat nal Kidney Foundati on for Adults.The GFR will not calculate if th e sex is unknown or if thepatient's ag e is <18 years. CREATININE (test 1.2 mg/dL 0.6-1.3 N code = CREAT) CALCIUM (test code = 8.4 mg/dL 8.0-10.5 N CA) COMMENTS: On arrivalPROTHROMBIN [id number] 16:43:00 Test Item Value Reference Range Interpretation Comments PROTHROMBIN TIME 16.6 SECONDS 9.3-12.9 H PATIENT (test code = PTP) INTERNATIONAL NORMAL 1.5 0.8-1.2 H TARGET INR BY RATIO (test code = INDICATIO N Indication INR) INR1. Prophylax is of venous thrombos is 2.0 - 3.0 (orthoped ic surgery), Proph ylaxis of venous throm bosis (other than hig h-risk surgery), Treat ment of Deep Vein Thrombosis/Pulm onary Embolism, Preve ntion of systemic emb olism - Tissue heart va lves, Acute Myocardia l Infarction (to prevent systemic emboli sm), Valvular heart disease, Atrial Fibrillation, Bileaflet mecha nical valve in aortic position.2. Mec hanical prosthetic valv es (high risk), 2. 5 - 3.5 Presence of Lup us Anticoagulant o r Antiphospholipi d Antibodies, Pre vention of systemic emb olism - Acute Myocardia l Infarction (to prevent recurrent infar ct). COMMENTS: On arrivalTHROMBOPLASTIN TIME [id number] 16:43:00 Test Item Value Reference Range Interpretation Comments THROMBOPLASTIN TIME 32.6 Seconds 25.0-39.5 N Therape utic Range: PARTIAL (test code = 50.4 - 88.3 Seconds PTT) Effective 09/17/2018 COMMENTS: On arrivalCBC W/AUTO [id number] 16:31:00 Test Item Value Reference Range Interpretation Comments WHITE BLOOD CELL (test code = 18.0 x10 3/uL 4.5-11.0 H WBC) RED BLOOD CELL (test code = 3.53 x10 6/uL 4.00-5.60 L RBC) HEMOGLOBIN (test code = HGB) 10.6 g/dL 12.5-16.9 L HEMATOCRIT (test code = HCT) 32.4 % 37.5-50.7 L MEAN CELL VOLUME (test code = 91.8 fL 81.0-99.0 N MCV) MEAN CELL HGB (test code = 30.0 pg 27.0-33.0 N MCH) MEAN CELL HGB CONCETRATION 32.7 g/dL 33.0-37.0 L (test code = MCHC) RED CELL DISTRIBUTION WIDTH CV 13.2 % 11.5-14.5 N (test code = RDW) RED CELL DISTRIBUTION WIDTH SD 44.4 fL 37.0-54.0 N (test code = RDW-SD) PLATELET COUNT (test code = 110 x10 3/uL 150-400 L PLT) MEAN PLATELET VOLUME (test 10.3 fL 7.0-9.0 H code = MPV) NEUTROPHIL % (test code = NT%) 93.1 % 56.0-77.0 H IMMATURE GRANULOCYTE % (test 0.8 % 0.0-2.0 N code = IG%) LYMPHOCYTE % (test code = LY%) 3.8 % 14.0-32.0 L MONOCYTE % (test code = MO%) 1.8 % 4.8-9.0 L EOSINOPHIL % (test code = EO%) 0.3 % 0.3-3.7 N BASOPHIL % (test code = BA%) 0.2 % 0.0-2.0 N NUCLEATED RBC % (test code = 0.0 % 0-0 N NRBC%) NEUTROPHIL # (test code = NT#) 16.78 x10 3/uL 2.0-7.6 H IMMATURE GRANULOCYTE # (test 0.15 x10 3/uL 0.00-0.03 H code = IG#) LYMPHOCYTE # (test code = LY#) 0.69 x10 3/uL 1.0-3.8 L MONOCYTE # (test code = MO#) 0.32 x10 3/uL 0.1-0.8 N EOSINOPHIL # (test code = EO#) 0.05 x10 3/uL 0.0-0.2 N BASOPHIL # (test code = BA#) 0.03 x10 3/uL 0.0-0.2 N NUCLEATED RBC # (test code = 0.00 x10 3/uL 0.0-0.1 N NRBC#) MANUAL DIFF REQUIRED (test NO code = MDIFF) [facility] [id number] 16:03:00 Test Item Value Reference Range Interpretation Comments POC ARTERIAL BLOOD GAS PH (test 7.324 7.35-7.45 L code = POCPHA) POC ARTERIAL BLOOD GAS PCO2 39.1 mmHg 35.0-45 N (test code = HKARBM0G) POC TCO2 ARTERIAL (test code = 21.5 POCTCO2) POC ARTERIAL BLOOD GAS PO2 (test 200.1 mmHg 80-100.0 HH code = XOAQJ2B) POC HCO3 ARTERIAL (test code = 20.3 MMOL/L 22.0-26.0 L [id number]) POC BASE EXCESS (test code = -5.7 MMOL/L -4.0-4.0 L POCBEA) POC O2 SATURATION (test code = 99.6 % 90-100 N POCO2S) FIO2 (test code = FIO2A) 60 % PaO2/FiO2 (test code = VQO2PCM0) 333.50 mm/Hg ABG DELIVERY (test code = SOLOMON) Adult Vent ABG VENT MODE (test code = AC MODEA) ABG VENT RESP RATE (test code = 16 /MIN RRA) ABG TIDAL VOLUME (test code = 500 ml TVA) ABG PEEP (test code = PEEPA) 5 cmH2O ABG SITE (test code = SITEA) Art Line GERRY'S TEST (test code = N/A ALLENS) BASIC METABOLIC [id number] 16:03:00 Test Item Value Reference Range Interpretation Comments SODIUM (test code = NA/ABG) 139 mmol/L 134-147 N POTASSIUM (test code = K/ABG) 4.2 mmol/L 3.4-5.0 N CHLORIDE (test code = CL/ABG) 107 mmol/L 100-108 N CREATININE ABG (test code = 1.1 mg/dL 0.8-1.3 N CREAABG) POC IONIZED CALCIUM (test code = 1.23 MMOL/L 1.12-1.32 N POCCA) POC GLUCOSE (test code = POCGLU) 144 MG/DL 70-110 H HEMOGLOBIN [id number] 16:03:00 Test Item Value Reference Range Interpretation Comments HEMOGLOBIN ABG (test code = 10.5 G/DL 12.5-16.9 L HGB/ABG) [id number] 16:03:00 Test Item Value Reference Range Interpretation Comments HEMATOCRIT (test code = HCT/ABG) 31 % 37.5-50.7 L POC ARTERIAL BLOOD [id number] 15:11:00 Test Item Value Reference Range Interpretation Comments POC ARTERIAL BLOOD GAS PH (test 7.328 7.35-7.45 L code = POCPHA) POC ARTERIAL BLOOD GAS PCO2 (test 45.1 mmHg 35.0-45 H code = AAOYBX9R) POC TCO2 ARTERIAL (test code = 25.0 POCTCO2) POC ARTERIAL BLOOD GAS PO2 (test 433.9 mmHg 80-100.0 HH code = PSZRM4B) POC HCO3 ARTERIAL (test code = 23.7 MMOL/L 22.0-26.0 N [id number]) POC BASE EXCESS (test code = -2.4 MMOL/L -4.0-4.0 N POCBEA) POC O2 SATURATION (test code = 100.0 % 90-100 N POCO2S) BASIC METABOLIC [id number] 15:11:00 Test Item Value Reference Range Interpretation Comments SODIUM (test code = NA/ABG) 139 mmol/L 134-147 N POTASSIUM (test code = K/ABG) 4.3 mmol/L 3.4-5.0 N CHLORIDE (test code = CL/ABG) 105 mmol/L 100-108 N CREATININE ABG (test code = 1.2 mg/dL 0.8-1.3 N CREAABG) POC IONIZED CALCIUM (test code = 1.30 MMOL/L 1.12-1.32 N POCCA) POC GLUCOSE (test code = POCGLU) 122 MG/DL 70-110 H HEMOGLOBIN [id number] 15:11:00 Test Item Value Reference Range Interpretation Comments HEMOGLOBIN ABG (test code = HGB/ABG) 9.9 G/DL 12.5-16.9 L [id number] 15:11:00 Test Item Value Reference Range Interpretation Comments HEMATOCRIT (test code = HCT/ABG) 29 % 37.5-50.7 L POC LACTIC [id number] 15:11:00 Test Item Value Reference Range Interpretation Comments POC LACTIC ACID (test code = 0.8 mmol/l 0.9-1.7 L POCLAC) [id number] 15:09:00 Test Item Value Reference Range Interpretation Comments ACT-ISTAT (test code 131 SEC 74-137 N Perform ed by certified = ACTI) 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[facility] [id number] 14:44:00 Test Item Value Reference Range Interpretation Comments ACT-ISTAT (test code 630 SEC 74-137 H Perform ed by certified = ACTI) 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[facility] POC ARTERIAL BLOOD [id number] 14:35:00 Test Item Value Reference Range Interpretation Comments POC ARTERIAL BLOOD GAS PH (test 7.438 7.35-7.45 N code = POCPHA) POC ARTERIAL BLOOD GAS PCO2 (test 35.6 mmHg 35.0-45 N code = IFQXVT0V) POC TCO2 ARTERIAL (test code = 25.2 POCTCO2) POC ARTERIAL BLOOD GAS PO2 (test 407.3 mmHg 80-100.0 HH code = WWCWU5D) POC HCO3 ARTERIAL (test code = 24.1 MMOL/L 22.0-26.0 N FVOWVM5H) POC BASE EXCESS (test code = 0.1 MMOL/L -4.0-4.0 N POCBEA) POC O2 SATURATION (test code = 100.0 % 90-100 N POCO2S) BASIC METABOLIC [id number] 14:35:00 Test Item Value Reference Range Interpretation Comments SODIUM (test code = NA/ABG) 137 mmol/L 134-147 N POTASSIUM (test code = K/ABG) 4.8 mmol/L 3.4-5.0 N CHLORIDE (test code = CL/ABG) 103 mmol/L 100-108 N CREATININE ABG (test code = 1.2 mg/dL 0.8-1.3 N CREAABG) POC IONIZED CALCIUM (test code = 1.06 MMOL/L 1.12-1.32 L POCCA) POC GLUCOSE (test code = POCGLU) 119 MG/DL 70-110 H HEMOGLOBIN [id number] 14:35:00 Test Item Value Reference Range Interpretation Comments HEMOGLOBIN ABG (test code = HGB/ABG) 9.7 G/DL 12.5-16.9 L [id number] 14:35:00 Test Item Value Reference Range Interpretation Comments HEMATOCRIT (test code = HCT/ABG) 28 % 37.5-50.7 L POC LACTIC [id number] 14:35:00 Test Item Value Reference Range Interpretation Comments POC LACTIC ACID (test code = 0.7 mmol/l 0.9-1.7 L POCLAC) [id number] 14:16:00 Test Item Value Reference Range Interpretation Comments ACT-ISTAT (test code 786 SEC 74-137 H Perform ed by certified = ACTI) 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[facility] POC ARTERIAL BLOOD [id number] 14:01:00 Test Item Value Reference Range Interpretation Comments POC ARTERIAL BLOOD GAS PH (test 7.456 7.35-7.45 H code = POCPHA) POC ARTERIAL BLOOD GAS PCO2 (test 33.0 mmHg 35.0-45 L code = NTZAYN7H) POC TCO2 ARTERIAL (test code = 24.2 POCTCO2) POC ARTERIAL BLOOD GAS PO2 (test 360.5 mmHg 80-100.0 HH code = GSRKL3I) POC HCO3 ARTERIAL (test code = 23.2 MMOL/L 22.0-26.0 N [id number]) POC BASE EXCESS (test code = -0.3 MMOL/L -4.0-4.0 N POCBEA) POC O2 SATURATION (test code = 100.0 % 90-100 N POCO2S) BASIC METABOLIC [id number] 14:01:00 Test Item Value Reference Range Interpretation Comments SODIUM (test code = NA/ABG) 138 mmol/L 134-147 N POTASSIUM (test code = K/ABG) 5.0 mmol/L 3.4-5.0 N CHLORIDE (test code = CL/ABG) 103 mmol/L 100-108 N CREATININE ABG (test code = 1.2 mg/dL 0.8-1.3 N CREAABG) POC IONIZED CALCIUM (test code = 1.05 MMOL/L 1.12-1.32 L POCCA) POC GLUCOSE (test code = POCGLU) 122 MG/DL 70-110 H HEMOGLOBIN [id number] 14:01:00 Test Item Value Reference Range Interpretation Comments HEMOGLOBIN ABG (test code = HGB/ABG) 9.9 G/DL 12.5-16.9 L [id number] 14:01:00 Test Item Value Reference Range Interpretation Comments HEMATOCRIT (test code = HCT/ABG) 29 % 37.5-50.7 L POC LACTIC [id number] 14:01:00 Test Item Value Reference Range Interpretation Comments POC LACTIC ACID (test code = 0.8 mmol/l 0.9-1.7 L POCLAC) POC ARTERIAL BLOOD [id number] 13:32:00 Test Item Value Reference Range Interpretation Comments POC ARTERIAL BLOOD GAS PH (test 7.430 7.35-7.45 N code = POCPHA) POC ARTERIAL BLOOD GAS PCO2 (test 35.7 mmHg 35.0-45 N code = STFMXH9T) POC TCO2 ARTERIAL (test code = 24.8 POCTCO2) POC ARTERIAL BLOOD GAS PO2 (test 445.2 mmHg 80-100.0 HH code = MRCVN2R) POC HCO3 ARTERIAL (test code = 23.7 MMOL/L 22.0-26.0 N [id number]) POC BASE EXCESS (test code = -0.4 MMOL/L -4.0-4.0 N POCBEA) POC O2 SATURATION (test code = 100.0 % 90-100 N POCO2S) BASIC METABOLIC [id number] 13:32:00 Test Item Value Reference Range Interpretation Comments SODIUM (test code = NA/ABG) 137 mmol/L 134-147 N POTASSIUM (test code = K/ABG) 4.7 mmol/L 3.4-5.0 N CHLORIDE (test code = CL/ABG) 103 mmol/L 100-108 N CREATININE ABG (test code = 1.2 mg/dL 0.8-1.3 N CREAABG) POC IONIZED CALCIUM (test code = 1.07 MMOL/L 1.12-1.32 L POCCA) POC GLUCOSE (test code = POCGLU) 119 MG/DL 70-110 H HEMOGLOBIN [id number] 13:32:00 Test Item Value Reference Range Interpretation Comments HEMOGLOBIN ABG (test code = 10.7 G/DL 12.5-16.9 L HGB/ABG) [id number] 13:32:00 Test Item Value Reference Range Interpretation Comments HEMATOCRIT (test code = HCT/ABG) 31 % 37.5-50.7 L POC LACTIC [id number] 13:32:00 Test Item Value Reference Range Interpretation Comments POC LACTIC ACID (test code = 0.9 mmol/l 0.9-1.7 N POCLAC) [id number] 13:27:00 Test Item Value Reference Range Interpretation Comments ACT-ISTAT (test > 1000 SEC 74-137 H Performed by certified code = ACTI) 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[facility] POC ARTERIAL BLOOD [id number] 13:05:00 Test Item Value Reference Range Interpretation Comments POC ARTERIAL BLOOD GAS PH (test 7.366 7.35-7.45 N code = POCPHA) POC ARTERIAL BLOOD GAS PCO2 (test 45.8 mmHg 35.0-45 H code = DOTMNA9D) POC TCO2 ARTERIAL (test code = 27.6 POCTCO2) POC ARTERIAL BLOOD GAS PO2 (test 529.4 mmHg 80-100.0 HH code = OBFAO0S) POC HCO3 ARTERIAL (test code = 26.2 MMOL/L 22.0-26.0 H [id number]) POC BASE EXCESS (test code = 0.5 MMOL/L -4.0-4.0 N POCBEA) POC O2 SATURATION (test code = 100.0 % 90-100 N POCO2S) BASIC METABOLIC [id number] 13:05:00 Test Item Value Reference Range Interpretation Comments SODIUM (test code = NA/ABG) 138 mmol/L 134-147 N POTASSIUM (test code = K/ABG) 3.8 mmol/L 3.4-5.0 N CHLORIDE (test code = CL/ABG) 101 mmol/L 100-108 N CREATININE ABG (test code = 1.2 mg/dL 0.8-1.3 N CREAABG) POC IONIZED CALCIUM (test code = 1.03 MMOL/L 1.12-1.32 L POCCA) POC GLUCOSE (test code = POCGLU) 117 MG/DL 70-110 H HEMOGLOBIN [id number] 13:05:00 Test Item Value Reference Range Interpretation Comments HEMOGLOBIN ABG (test code = 11.7 G/DL 12.5-16.9 L HGB/ABG) [id number] 13:05:00 Test Item Value Reference Range Interpretation Comments HEMATOCRIT (test code = HCT/ABG) 34 % 37.5-50.7 L POC LACTIC [id number] 13:05:00 Test Item Value Reference Range Interpretation Comments POC LACTIC ACID (test code = < 0.3 mmol/l 0.9-1.7 L POCLAC) [id number] 12:53:00 Test Item Value Reference Range Interpretation Comments ACT-ISTAT (test code 847 SEC 74-137 H Perform ed by certified = ACTI) 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[facility] POC ARTERIAL BLOOD [id number] 12:45:00 Test Item Value Reference Range Interpretation Comments POC ARTERIAL BLOOD GAS PH (test 7.311 7.35-7.45 L code = POCPHA) POC ARTERIAL BLOOD GAS PCO2 (test 48.3 mmHg 35.0-45 H code = [id number]) POC TCO2 ARTERIAL (test code = 25.8 POCTCO2) POC ARTERIAL BLOOD GAS PO2 (test 512.0 mmHg 80-100.0 HH code = [id number]) POC HCO3 ARTERIAL (test code = 24.4 MMOL/L 22.0-26.0 N [id number]) POC BASE EXCESS (test code = -2.4 MMOL/L -4.0-4.0 N POCBEA) POC O2 SATURATION (test code = 100.0 % 90-100 N POCO2S) BASIC METABOLIC [id number] 12:45:00 Test Item Value Reference Range Interpretation Comments SODIUM (test code = NA/ABG) 141 mmol/L 134-147 N POTASSIUM (test code = K/ABG) 3.5 mmol/L 3.4-5.0 N CHLORIDE (test code = CL/ABG) 107 mmol/L 100-108 N CREATININE ABG (test code = 1.1 mg/dL 0.8-1.3 N CREAABG) POC IONIZED CALCIUM (test code = 1.11 MMOL/L 1.12-1.32 L POCCA) POC GLUCOSE (test code = POCGLU) 116 MG/DL 70-110 H HEMOGLOBIN [id number] 12:45:00 Test Item Value Reference Range Interpretation Comments HEMOGLOBIN ABG (test code = 15.4 G/DL 12.5-16.9 N HGB/ABG) [id number] 12:45:00 Test Item Value Reference Range Interpretation Comments HEMATOCRIT (test code = HCT/ABG) 45 % 37.5-50.7 N POC LACTIC [id number] 12:45:00 Test Item Value Reference Range Interpretation Comments POC LACTIC ACID (test code = < 0.3 mmol/l 0.9-1.7 L POCLAC) POC ARTERIAL BLOOD [id number] 11:11:00 Test Item Value Reference Range Interpretation Comments POC ARTERIAL BLOOD GAS PH (test 7.370 7.35-7.45 N code = POCPHA) POC ARTERIAL BLOOD GAS PCO2 (test 46.6 mmHg 35.0-45 H code = [id number]) POC TCO2 ARTERIAL (test code = 28.6 POCTCO2) POC ARTERIAL BLOOD GAS PO2 (test 240.7 mmHg 80-100.0 HH code = [id number]) POC HCO3 ARTERIAL (test code = 27.1 MMOL/L 22.0-26.0 H [id number]) POC BASE EXCESS (test code = 1.7 MMOL/L -4.0-4.0 N POCBEA) POC O2 SATURATION (test code = 99.8 % 90-100 N POCO2S) ABG DELIVERY (test code = SOLOMON) [employer] ABG TEMPERATURE (test code = 97.5 F TEMPA) ABG SITE (test code = SITEA) Art Line BASIC METABOLIC [id number] 11:11:00 Test Item Value Reference Range Interpretation Comments SODIUM (test code = NA/ABG) 144 mmol/L 134-147 N POTASSIUM (test code = K/ABG) 3.7 mmol/L 3.4-5.0 N CHLORIDE (test code = CL/ABG) 106 mmol/L 100-108 N CREATININE ABG (test code = 1.2 mg/dL 0.8-1.3 N CREAABG) POC IONIZED CALCIUM (test code = 1.27 MMOL/L 1.12-1.32 N POCCA) POC GLUCOSE (test code = POCGLU) 97 MG/DL 70-110 N HEMOGLOBIN [id number] 11:11:00 Test Item Value Reference Range Interpretation Comments HEMOGLOBIN ABG (test code = 17.8 G/DL 12.5-16.9 H HGB/ABG) [id number] 11:11:00 Test Item Value Reference Range Interpretation Comments HEMATOCRIT (test code = HCT/ABG) 52 % 37.5-50.7 H POC LACTIC [id number] 11:11:00 Test Item Value Reference Range Interpretation Comments POC LACTIC ACID (test code = 0.5 mmol/l 0.9-1.7 L POCLAC) [id number] 01:14:00 Test Item Value Reference Range Interpretation Comments MAGNESIUM (test code = MAG) 1.77 mg/dL 1.80-2.40 L BASIC METABOLIC [id number] 01:07:00 Test Item Value Reference Range Interpretation Comments SODIUM (test code = 139 mEq/L 134-147 N NA) POTASSIUM (test code 4.1 mEq/L 3.4-5.0 N = K) CHLORIDE (test code 106 mEq/L 100-108 N = CL) CARBON DIOXIDE (test 26 mEq/l 21-33 N code = CO2) ANION GAP (test code 12 0-20 N = GAP) GLUCOSE (test code = 82 mg/dL 70-110 N GLU) BLOOD UREA NITROGEN 16 mg/dL 7-18 N (test code = BUN) GLOMERULAR 55.5 70-80 L The Glomerular FILTRATION RATE Filtration R ate is a (test code = GFR) calculated parameterbased on serum Creatinine, pat ient age and sex. GFR va luesless than 60 mL/min/ 1.73 square meters a re indicative ofCh ronic Kidney Disease. Values less than 15 mL/min/1.73squa re meters indicate Kidney failure. The calculation forGFR is based on the CKD-EPI (2020) calculat ion. This formulais race indifferent and is the recommended for alireza for GFRby the [facility] on for Adults.The GFR will not calculate if th e sex is unknown or if thepatient's ag e is <18 years. CREATININE (test 1.3 mg/dL 0.6-1.3 N code = CREAT) CALCIUM (test code = 9.5 mg/dL 8.0-10.5 N CA) CBC W/AUTO [id number] 00:59:00 Test Item Value Reference Range Interpretation Comments WHITE BLOOD CELL (test code = 8.5 x10 3/uL 4.5-11.0 N WBC) RED BLOOD CELL (test code = 5.46 x10 6/uL 4.00-5.60 N RBC) HEMOGLOBIN (test code = HGB) 16.3 g/dL 12.5-16.9 N HEMATOCRIT (test code = HCT) 49.6 % 37.5-50.7 N MEAN CELL VOLUME (test code = 90.8 fL 81.0-99.0 N MCV) MEAN CELL HGB (test code = MCH) 29.9 pg 27.0-33.0 N MEAN CELL HGB CONCETRATION 32.9 g/dL 33.0-37.0 L (test code = MCHC) RED CELL DISTRIBUTION WIDTH CV 13.1 % 11.5-14.5 N (test code = RDW) RED CELL DISTRIBUTION WIDTH SD 43.8 fL 37.0-54.0 N (test code = RDW-SD) PLATELET COUNT (test code = 194 x10 3/uL 150-400 N PLT) MEAN PLATELET VOLUME (test code 9.9 fL 7.0-9.0 H = MPV) NEUTROPHIL % (test code = NT%) 65.3 % 56.0-77.0 N IMMATURE GRANULOCYTE % (test 0.2 % 0.0-2.0 N code = IG%) LYMPHOCYTE % (test code = LY%) 19.1 % 14.0-32.0 N MONOCYTE % (test code = MO%) 12.8 % 4.8-9.0 H EOSINOPHIL % (test code = EO%) 2.2 % 0.3-3.7 N BASOPHIL % (test code = BA%) 0.4 % 0.0-2.0 N NUCLEATED RBC % (test code = 0.0 % 0-0 N NRBC%) NEUTROPHIL # (test code = NT#) 5.52 x10 3/uL 2.0-7.6 N IMMATURE GRANULOCYTE # (test 0.02 x10 3/uL 0.00-0.03 N code = IG#) LYMPHOCYTE # (test code = LY#) 1.61 x10 3/uL 1.0-3.8 N MONOCYTE # (test code = MO#) 1.08 x10 3/uL 0.1-0.8 H EOSINOPHIL # (test code = EO#) 0.19 x10 3/uL 0.0-0.2 N BASOPHIL # (test code = BA#) 0.03 x10 3/uL 0.0-0.2 N NUCLEATED RBC # (test code = 0.00 x10 3/uL 0.0-0.1 N NRBC#) MANUAL DIFF REQUIRED (test code NO = MDIFF) PROTHROMBIN [id number] 00:59:00 Test Item Value Reference Range Interpretation Comments PROTHROMBIN TIME 13.0 SECONDS 9.3-12.9 H PATIENT (test code = PTP) INTERNATIONAL NORMAL 1.2 0.8-1.2 N TARGET INR BY RATIO (test code = INDICATIO N Indication INR) INR1. Prophylax is of venous thrombos is 2.0 - 3.0 (orthoped ic surgery), Proph ylaxis of venous throm bosis (other than hig h-risk surgery), Treat ment of Deep Vein Thrombosis/Pulm onary Embolism, Preve ntion of systemic emb olism - Tissue heart va lves, Acute Myocardia l Infarction (to prevent systemic emboli sm), Valvular heart disease, Atrial Fibrillation, Bileaflet mecha nical valve in aortic position.2. Mec hanical prosthetic valv es (high risk), 2. 5 - 3.5 Presence of Lup us Anticoagulant o r Antiphospholipi d Antibodies, Pre vention of systemic emb olism - Acute Myocardia l Infarction (to prevent recurrent infar ct). UA RFLX MICR CULT IF [id number] 00:56:00 Test Item Value Reference Range Interpretation Comments UA COLOR (test code = COLU) YELLOW YEL/STRAW UA APPEARANCE (test code = CLEAR CLEAR APPU) UA GLUCOSE DIPSTICK (test code NEGATIVE NEGATIVE = DGLUU) UA BILIRUBIN DIPSTICK (test NEGATIVE NEGATIVE code = BILU) UA KETONE DIPSTICK (test code 1+ NEGATIVE A = KETU) UA SPECIFIC GRAVITY (test code 1.015 1.005-1.030 N = SGU) UA BLOOD DIPSTICK (test code = NEGATIVE NEGATIVE SUZETTE) UA PH DIPSTICK (test code = 5.0 5.0-7.0 N KEREN) UA PROTEIN DIPSTICK (test code 1+ NEGATIVE A = PROU) UA UROBILINIOGEN DIPSTICK 0.2 mg/dL 0.2-1.0 (test code = URO) UA NITRITE DIPSTICK (test code NEGATIVE NEGATIVE = LADONNA) UA LEUKOCYTE ESTERASE DIPSTICK NEGATIVE NEGATIVE (test code = LEUU) UA WBC (test code = WBCU) 0-3 WBC/HPF 0-3 UA RBC (test code = RBCU) 0-3 RBC/HPF 0-3 UA WBC NO REFLEX (test code = 0-3 WBC/HPF 0-3 WBCUCL) UA BACTERIA (test code = BACU) NONE SEEN /HPF NONE SEEN UA SQUAMOUS CELLS (test code = NONE SEEN /HPF NONE SEEN SQU) UA MUCUS (test code = MUCU) TRACE /LPF NONE SEEN Indication for culture: Flank PainSpecimen Description: CLEAN CATCH- XR CHEST 1 [id number] 00:00:00 [facility] 1940 Sex: M FAX: VP DATA, [place]: St: ADM FAX: Salazar Delarosa [phone] FAX: Pamela Camacho [phone] Name: BRENNAN SALAS [facility] : 1940 Age/S: 82/M [address] [place] [address] Unit #: [id number] Loc: G.2202 [place] [address] Phys: Pamela Burnette Acct: [id number] Dis Date: Status: ADM IN PHONE #: [phone] Exam Date: 08/10/2022 1551 FAX #: [phone] Reason: Cardiac Surgery Post Op EXAMS: CPT CODE: [id number] XR CHEST 1 V [id number] PROCEDURE INFORMATION: Exam: XR Chest Exam date and time: 08/10/2022 3:48 PM Age: 82 years old Clinical indication: Device placement; Cardiac defibrillator lead placement or adjustment; Additional info: Cardiac surgery post op TECHNIQUE: Imaging protocol: Radiologic exam of the chest. Views: 1 view. COMPARISON: CT CHEST W/O CONTRAST 08/09/2022 5:11 PM FINDINGS: Tubes, catheters and devices: Changes of median sternotomy and CABG are seen with overlying mediastinal drain and left- sided chest tube. Endotracheal tube is seen with tip terminating 5 cm above the natalya. Right internal jugular central line is seen with tip in the SVC. Lungs: See "Pleural spaces" finding. Pleural spaces: Small left pleural effusion and mild bibasilar atelectasis is seen. No discrete pneumothorax is noted. Heart/Mediastinum: Cardiac silhouette is mildly enlarged. Bones/joints: Fusion hardware in the lower cervical spine is seen. IMPRESSION: Status post median s ternotomy and CABG with multiple support line and tube placement, as described above. at 1835 Reported and signed by: Morteza Sullivan M.D. CC: VP DATA; Salazar Burton MD; Pamela PINO Technologist: RT Nicho(R) Trnscrd Date/Time/By: 08/10/2022 (1834) : By: LeilaniL Orig Print D/T: S: 08/10/2022 (1834) PAGE 1 Signed ReportCOVID 19 Asymptomatic IH [id number] 22:40:00 Test Item Value Reference Range Interpretation Comments COVID 19 Asymptomatic Negative Negative A nega tive result is IH AG (test code = presumpti ve and should COVNONPUIAG) be confirmedwit h an FDA authorized mole cular assay, if madeleine gambley forpatient mikie adan.A positive result does not rule out co-inf ections withother patho gens.This test detects giancarlo th viable (live) and non-viable,SARS -CoV, and SARS-CoV-2. Tarah t performance dep ends on theamount of vi tyra (antigen) in th e sample.This tarah t has not been FDA cleare d or approved; the t est hasbeen authori zed by FDA under an Em ergency Use Authorizati on(EUA) for use by labo ratories certified under the CLIA thatmeet the requirements to perform moderate, high or waivedcomplexit y tests. CBC W/AUTO [id number] 18:50:00 Test Item Value Reference Range Interpretation Comments WHITE BLOOD CELL (test code = 8.8 x10 3/uL 4.5-11.0 N WBC) RED BLOOD CELL (test code = 5.60 x10 6/uL 4.00-5.60 N RBC) HEMOGLOBIN (test code = HGB) 16.7 g/dL 12.5-16.9 N HEMATOCRIT (test code = HCT) 52.2 % 37.5-50.7 H MEAN CELL VOLUME (test code = 93.2 fL 81.0-99.0 N MCV) MEAN CELL HGB (test code = MCH) 29.8 pg 27.0-33.0 N MEAN CELL HGB CONCETRATION 32.0 g/dL 33.0-37.0 L (test code = MCHC) RED CELL DISTRIBUTION WIDTH CV 13.2 % 11.5-14.5 N (test code = RDW) RED CELL DISTRIBUTION WIDTH SD 44.9 fL 37.0-54.0 N (test code = RDW-SD) PLATELET COUNT (test code = 172 x10 3/uL 150-400 N PLT) MEAN PLATELET VOLUME (test code 10.8 fL 7.0-9.0 H = MPV) NEUTROPHIL % (test code = NT%) 70.0 % 56.0-77.0 N IMMATURE GRANULOCYTE % (test 0.3 % 0.0-2.0 N code = IG%) LYMPHOCYTE % (test code = LY%) 18.3 % 14.0-32.0 N MONOCYTE % (test code = MO%) 9.3 % 4.8-9.0 H EOSINOPHIL % (test code = EO%) 1.6 % 0.3-3.7 N BASOPHIL % (test code = BA%) 0.5 % 0.0-2.0 N NUCLEATED RBC % (test code = 0.0 % 0-0 N NRBC%) NEUTROPHIL # (test code = NT#) 6.14 x10 3/uL 2.0-7.6 N IMMATURE GRANULOCYTE # (test 0.03 x10 3/uL 0.00-0.03 N code = IG#) LYMPHOCYTE # (test code = LY#) 1.61 x10 3/uL 1.0-3.8 N MONOCYTE # (test code = MO#) 0.82 x10 3/uL 0.1-0.8 H EOSINOPHIL # (test code = EO#) 0.14 x10 3/uL 0.0-0.2 N BASOPHIL # (test code = BA#) 0.04 x10 3/uL 0.0-0.2 N NUCLEATED RBC # (test code = 0.00 x10 3/uL 0.0-0.1 N NRBC#) MANUAL DIFF REQUIRED (test code NO = MDIFF) B-TYPE NATRIURETIC [id number] 18:46:00 Test Item Value Reference Range Interpretation Comments B-TYPE NATRIURETIC PEPTIDE (test 266.0 PG/ML 0-100 H code = BNP) COMPREHENSIVE METABOLIC [id number] 18:28:00 Test Item Value Reference Range Interpretation Comments SODIUM (test code = 141 mEq/L 134-147 N NA) POTASSIUM (test code 4.6 mEq/L 3.4-5.0 N = K) CHLORIDE (test code 107 mEq/L 100-108 N = CL) CARBON DIOXIDE (test 28 mEq/l 21-33 N code = CO2) ANION GAP (test code 11 0-20 N = GAP) GLUCOSE (test code = 85 mg/dL 70-110 N GLU) BLOOD UREA NITROGEN 13 mg/dL 7-18 N (test code = BUN) GLOMERULAR 61.1 70-80 L The Glomerular FILTRATION RATE Filtration R ate is a (test code = GFR) calculated parameterbased on serum Creatinin e, patient age and sex. GFR valuesless than 60 mL/min/1.73 squ are meters are marleny cative ofChronic Kidne y Disease. Values less than 15 mL/min/1.73squa re meters indicate Kidney failure. The calculation for GFR is based on the CK D-EPI (2020) calculat ion. This formulais race indifferent and is the recommended for alireza for GFRby the N ational [facility] on for Adults.The GFR will not calculate i f the sex is unknown or if thepatient's ag e is <18 years. CREATININE (test 1.2 mg/dL 0.6-1.3 N code = CREAT) TOTAL PROTEIN (test 7.6 g/dL 6.4-8.2 N code = PROT) ALBUMIN (test code = 4.10 g/dL 3.4-5.0 N ALB) CALCIUM (test code = 10.1 mg/dL 8.0-10.5 N CA) BILIRUBIN TOTAL 0.60 mg/dL 0.0-1.0 N (test code = BILT) SGOT/AST (test code 47 IUnit/L 15-37 H = AST) SGPT/ALT (test code 28 IUnit/L 30-65 L = ALT) ALKALINE PHOSPHATASE 112 IUnit/L 20-125 N TOTAL (test code = ALKP) LIPID PROFILE (CORONARY RISK)2022-08-09 18:28:00 Test Item Value Reference Range Interpretation Comments TRIGLYCERIDES (test 158 mg/dL 40-150 H code = TRIG) CHOLESTEROL (test 224 mg/dL <200 H code = CHOL) CHOLESTEROL/HDL 7.83 RATIO 3.43-4.97 H RISK ASSOCIA ENZO WITH RATIO (test code = CHOL/HDL RATIOS: RISK CHOLHDL) MALE FEMALE1/2 AVERAGE 3.43 3.27AVERAG E 4.97 4.442X AVERAGE 9.55 7.053X AVERAGE 23.39 11.04 NOTE THAT THE REFERENCE VALUE IS RELATEDTO RISK LEVELS RECOMMENDED BY THE NATL.HEART, CELESTE G, AND BLOOD INST. HDL CHOLESTEROL 28.6 mg/dL 32-72 L (test code = HDL) LIPOPROTEIN LDL 199.0 mg/dL 0-100 H <100 OPTIMAL 100-129 (test code = LDL) NEAR OPTIM AL/ABOVE [id number] 89 HIGH>SB=239 ZAMZAM Y HIGH*Guidelines provided by the National Choles terol EducationProgra m Adult Treatment Panel III HGBA1C%2022-08-09 18:25:00 Test Item Value Reference Range Interpretation Comments HGBA1C% (test code = HGBA1C%) 5.2 %A1C 4.8-6.0 N THROMBOPLASTIN TIME [id number] 18:23:00 Test Item Value Reference Range Interpretation Comments THROMBOPLASTIN TIME 36.2 Seconds 25.0-39.5 N Therape utic Range: PARTIAL (test code = 50.4 - 88.3 Seconds PTT) Effective 09/17/2018 PROTHROMBIN [id number] 18:23:00 Test Item Value Reference Range Interpretation Comments PROTHROMBIN TIME 12.6 SECONDS 9.3-12.9 N PATIENT (test code = PTP) INTERNATIONAL NORMAL 1.1 0.8-1.2 N TARGET INR BY RATIO (test code = INDICATIO N Indication INR) INR1. Prophylax is of venous thrombos is 2.0 - 3.0 (orthoped ic surgery), Proph ylaxis of venous throm bosis (other than hig h-risk surgery), Treat ment of Deep Vein Thrombosis/Pulm onary Embolism, Preve ntion of systemic emb olism - Tissue heart va lves, Acute Myocardia l Infarction (to prevent systemic emboli sm), Valvular heart disease, Atrial Fibrillation, Bileaflet mecha nical valve in aortic position.2. Mec hanical prosthetic valv es (high risk), 2. 5 - 3.5 Presence of Lup us Anticoagulant o r Antiphospholipi d Antibodies, Pre vention of systemic emb olism - Acute Myocardia l Infarction (to prevent recurrent infar ct). - XR CHEST 2 [id number] 00:00:00 [facility] : 1940 Sex: M FAX: VP DATA, [place]: St: ADM FAX: Salazar Delarosa [phone] FAX: Pamela Camacho [phone] Name: BRENNAN SALAS [facility] : 1940 Age/S: 82/M [address] [place] [address] Unit #: [id number] Loc: G.4407 [place] [address] Phys: Pamela Burnette Acct: [id number] Dis Date: Status: ADM IN PHONE #: [phone] Exam Date: 08/09/2022 1705 FAX #: [phone] Reason: Cardiac Surgery Pre Op EXAMS: CPT CODE: [id number] XR CHEST 2 V 61616 PROCEDURE INFORMATION: Exam: XR Chest Exam date and time: 08/09/2022 5:02 PM Age: 82 years old Clinical indication: Screening exam; Other screening; Additional info: Cardiac surgery pre op TECHNIQUE: Imaging protocol: Radiologic exam of the chest. Views: 2 views. PA and Lateral COMPARISON: No relevant prior studies available. FINDINGS: Lungs: Scattered pleuroparenchymal scarring. Left basilar opacities. Pleural spaces: No pleural effusion. No pneumothorax. Heart/Mediastinum: Heart size is within normal limits. Vasculature is unremarkable. Bones/joints: No acute osseous abnormalities. IMPRESSION: Left basilar opacities may represent atelectasis and/or consolidation. at 1903 Reported and signed by: Eric Edgar M.D. CC: VP DATA; Salazar Burton MD; Pamela PINO Technologist: RT Taryn(Doretha) [facility] Date/Time/By: 08/09/2022 (1902) : By: [email or web address] Orig Print D/T: S: 08/09/2022 (1903) PAGE 1 Signed Report- DUP VEIN [id number] 00:00:00 [facility] 1940 Sex: M Name: SALASBRENNAN GANDARA GERRY [facility] : 1940 Age/S: 82 / M [address] [place] [address] Blvd Unit #: [id number] Loc: [place] [address] Phys: Pamela Burnette Acct: [id number] Dis Date: Status: ADM IN PHONE #: [phone] Exam Date: 08/09/20221749 FAX #: [phone] Reason: Bilateral VeinBilateral mapping EXAMS: CPT CODE: [id number] DUP VEIN ANCA 75464 PROCEDURE INFORMATION: Exam: US Duplex Lower Extremity Veins; Vein mapping Exam date and time: 08/09/2022 5:33 PM Age: 82 years old Clinical indication: Screening exam; Pre op; Additional info: Bilateral vein bilateral mapping TECHNIQUE: Imaging protocol: Real-time duplex ultrasound of the extremities with 2-D sandhu scale, color Doppler flow and spectral waveform analysis including responses to compression and other maneuvers (when performed) with image documentation. Complete exam focused on the bilateral lower extremity veins for vein mapping. COMPARISON: No relevant prior studies available. FINDINGS: Right superficial veins: Normal Doppler waveforms. Normal compressibility. Greater saphenous vein is patent. Right greater saphenous vein-upper thigh: 3.3 mm Right greater saphenous vein-mid thigh: 2 mm Right greater saphenous vein-lower thigh: 2.1 mm Right greater saphenous vein-upper le.9 mm Right greater saphenous vein-mid le.1 mm Right greater saphenous vein-lower le.6 mm Left superficial veins: Normal Doppler waveforms. Normal compressibility. Greater saphenous vein is patent. Left greater saphenous vein-upper thigh: 2.8 mm Left greater saphenous vein-mid thigh: 2.6 mm Left greater saphenous vein-lower thigh: 1.2 mm Left greater saphenous vein-upper le.7 mm Left greater saphenous vein-mid le.4 mm Left greater saphenous vein-lower le.7 mm Soft tissues: Unremarkable. IMPRESSION: Greater saphenous vein is patent. Vein mapping as described. at 1858 Reported and signed by: Eric Edgar M.D. CC: VP DATA; Salazar Burton MD;Pamela PINO Technologist: Kavita Vera Trnohb Date/Time: 08/09/2022 (1857) [email or web address] Orig Print D/T: S: 08/09/2022 (1857) Probe: PAGE 1 Signed Report- DUP EXTRACRANIAL [id number] 00:00:00 [facility] : 1940 Sex: M Name: BRENNAN SALAS [facility] Gadiel Montemayor : 1940 Age/S: 82 / M [address] [place] [address] Bl Unit #: [id number] Loc: [place] [address] Phys: Pamela Burnette Acct: [id number] Dis Date: Status: ADM IN PHONE #: [phone] Exam Date: 08/09/2022 1750 FAX #: [phone] Reason: Pre cabg EXAMS: CPT CODE: [id number] DUP EXTRACRANIAL ANCA 77550 PROCEDURE INFORMATION: Exam: US Duplex Bilateral Extr acranial Arteries, Carotid Arteries Exam date and time: 08/09/2022 5:25 PM Age: 82 years old Clinical indication: Screening exam; Patient HX: Pre op; Additional info: Pre cabg TECHNIQUE: Imaging protocol: Real-time Duplex ultrasound scan of the bilateral carotid and vertebral arteries combining sandhu scale, color Doppler and spectral waveform analysis. Bilateral exam. Exam focused on the carotid arteries. COMPARISON: CT CHEST W/O CONTRAST 08/09/2022 5:11 PM FINDINGS: Right common carotid artery: Plaque formation. No occlusion or stenosis. Waveforms are normal. Right internal carotid artery: Plaque formation. No occlusion or stenosis. Waveforms are normal. Right ICA/CCA ratio: Within normal limits. Right external carotid artery: No stenosis in the origin. Right vertebral artery: Unremarkable. Antegrade flow. Left common carotid artery: Plaque formation. No occlusion or stenosis. Waveforms are normal. Left internal carotid artery: Plaque formation. No occlusion or stenosis. Waveforms are normal. Left ICA/CCA ratio: Within normal limits. Left external carotid artery: No stenosis in the origin. Leftvertebral artery: Unremarkable. Antegrade flow. IMPRESSION: No carotid arterial stenosis. REFERENCES: SRU CRITERIA. The degree of internal carotid artery stenosis is based on criteria defined by the Society of Radiologists in Ultrasound (SRU). Normal is no stenosis. Mild is less than 50% stenosis. Moderate is 50-69% stenosis. Severe is greater than 69% stenosis to near occlusion. Near occlusion is amarkedly narrowed lumen. Total occlusion is no detectable patent lumen. at 1917 Reported and signed by: Aniket Loredo M.D. PAGE 1 Signed Report (CONTINUED) Name: BRENNAN SALAS [facility] : 1940 Age/S: 82/ M [address] [place] [address] Unit #: [id number] Loc: [facility] [place] [address] Phys: Pamela Burnette Acct: [id number] Dis Date: Status: ADM IN PHONE #: [phone] Exam Date: 08/09/2022 175 FAX #: [phone] Reason: Pre cabg EXAMS: CPT CODE: [id number] DUP EXTRACRANIAL ANCA 73222 (Continued) CC: VP DATA; Salazar Burton MD; Pamela PINO Technologist: Kavita Vera Trnscb Date/Time: 08/09/2022 (1916) [email or web address] Orig Print D/T: S: 08/09/2022 (1916) Probe: PAGE 2 Signed Report- CT CHEST W/O [id number] 00:00:00 [facility] : 1940 Sex: M Name: SALSABRENNAN GANDARA [facility] : 1940 Age/S: 82 / M [address] [place] [address] Unit #: [id number] Loc: [place] [address] Phys: Pamela Burnette Acct: [id number] Dis Date: Status: ADM IN PHONE #: [phone] Exam Date: 08/09/2022 1715 FAX #: [phone] Reason: Pre cabg EXAMS: CPT CODE: [id number] CT CHEST W/O CONTRAST [id number] PROCEDURE INFORMATION: Exam: CT Chest Without Cont rast; Diagnostic Exam date and time: 08/09/2022 5:11 PM Age: 82 years old Clinical indication: Other: Pre cabg TECHNIQUE: Imaging protocol: Diagnostic computed tomography of the chest without contrast. Radiation optimization: All CT scans at this facility use at least one of these dose optimization techniques: automated exposure control; mA and/or kV adjustment per patient size (includes targeted examswhere dose is matched to clinical indication); or iterative reconstruction. REPORTING DATA: Count ofCT and Cardiac NM exams in prior 12 months: This patient has received 0 known CTs and 0 known cardiac nuclear medicine studies in the 12 months prior to the current study. COMPARISON: DX XR CHEST 2 V 08/09/2022 5:02 PM FINDINGS: Lungs: Old granulomatous disease in the chest with subpleural reticulonodular change along the apicoposterior segment of the left upper lobe (2, 32-37). Minimal subpleural platelike atelectasis also noted with no edema or lobar consolidation. Pleural spaces: No pneumothorax. No pleural effusion. Heart: Cardiomegaly with multichamber enlargement and severe multivessel coronary atherosclerosis in keeping with known history. No pericardial thickening or effusion. Lymph nodes: No adenopathy. Vasculature: Ectatic, nonaneurysmal aortic root measuring up to 37 mm in transverse diameter. Sinotubular junction and mid ascending aorta measures roughly 29 and 27 mm in transverse diameter, respectively. Moderate to severe transverse aortic calcification seen with normal caliber descending and upper abdominal aorta. Severe abdominal aortic calcification noted along the visualized segments. Kidneys and ureters: Hypodense bilateral renal cysts measuring up to 4.7 and 4.9 cm in maximum diameter on the right and left side, respectively. The former shows evidence of minimal lateral capsule calcification. Stomach and bowel: Moderate volume colonic fecal material diffusely. Intraperitoneal space: No acute upper abdominal findings along the visualized segments. PAGE 1 Signed Report (CONTINUED) Name: BRENNAN SALAS [facility] : 1940 Age/S: 82 / M [address] [place] [address] Blvd Unit #: [id number] Loc: [place] [address] Phys: Pamela Burnette Acct: [id number] Dis Date:Status: ADM IN PHONE #: [phone] Exam Date: 08/09/2022 1715 FAX #: [phone] Reason: Pre cabg EXAMS: CPT CODE: [id number] CT CHEST W/O CONTRAST 22567 (Continued) Bones/joints: Severe thoracic spondylosis without destructive bone lesions. Soft tissues: Unremarkable. IMPRESSION: 1. Ectatic, nonaneurysmal aortic root (37 mm) with [id number]-[id number]-rkgirhqd calcification. 2. Remaining thoracoabdominal aorta is normal in caliber. 3. Significant calcification along the ascending aorta to preclude coronary graft implantation given history. 4. Cardiomegaly with severe multivessel coronary atherosclerosis. 5. Old granulomatous disease and chronic active atypical infection with a tree-in-bud configuration.6. Partially imaged bilateral renal cysts, incompletely characterized. This can be followed with routine non emergent ultrasound further characterization, if indicated. COMMENTS: Consistent with the [employer]'s Incidental Findings Committee white paper (J Am Parminder Radiol 2018): Anyincidental renal lesion less than 1 cm or classified as too small to characterize, or any incidentalcystic renal lesion characterized as simple-appearing, is likely benign. No follow-up imaging is recommended for these lesions per consensus recommendations based on imaging criteria. ElectronicallySigned by Karen Beth on 08/09/2022 at 1925 Reported and signed by: Brandon Cruz M.D. CC: VP DATA; Salazar Burton MD; Pamela PINO Technologist:RT Juan(R)(CT) CTDI: DLP: Trnscb Date/Time: 08/09/2022 (1924) [email or web address] Orig Print D/T: S: 08/09/2022 (1925) PAGE 2 Signed Report
--- NOTE | 2022-10-02 01:13 | ER ---
Nurse's Notes [facility] Name: Tim Ahn Age: 82 yrs Sex: Male : 1940 Arrival Date: 10/01/2022 Time: 21:45 Bed 14 Private MD: Diagnosis: Acute posterior scalp injury, acute head injury, acute right elbow contusion, right elbow hematoma, multiple skin abrasions, acute fall from standing, posterior scalp hematoma Presentation: 10/01 21:47 Chief complaint: EMS states: Fall from standing. Pt got out of bed, knee gave out and nj1 fell hitting his head against the wall. On plavix and ASA. No LOC reported. From assisted living, alzheimers unit. 21:47 Coronavirus screen: At this time, the client does not indicate any symptoms associated nj1 with coronavirus-19. Ebola Screen: No symptoms or risks identified at this time. Initial Sepsis Screen: Does the patient meet any 2 criteria? No. Patient's initial sepsis screen is negative. Does the patient have a suspected source of infection? No. Patient's initial sepsis screen is negative. Risk Assessment: Do you want to hurt yourself or someone else? Patient reports no desire to harm self or others. Onset of symptoms was October 01, 2022. 21:47 Method Of Arrival: EMS: [place] [id number] 21:47 Acuity: LUCIEN 3 nj1 Triage Assessment: 21:50 General: Appears in no apparent distress. comfortable, Behavior is calm, cooperative, nj1 appropriate for age. Pain: Complains of pain in head Unable to use pain scale. Alzheimers dementia, states "Its just sore". 21:50 Neuro: Level of Consciousness is awake, alert, obeys commands, confused, Oriented to [facility] person, place, situation. Cardiovascular: Patient's skin is warm and dry. Respiratory: Airway is patent Respiratory effort is even, unlabored. Injury Description: Head injury sustained to Back of head is closed, did not have loss of consciousness. Historical: - Allergies: 21:50 Raxxede-[id number]-PxZ Reductase Inhibitors; nj1 - PMHx: 21:50 Atrial Fib; Hypertension; Alzheimer's disease; Dementia; Anemia; Coronary nj1 atherosclerosis; - PSHx: 21:50 Aortocoronary bypass graft; nj1 - Immunization history:: Pt states he has gotten "6 shots". - Social history:: Smoking status: Patient/guardian denies using tobacco, but has a distant history of tobacco abuse. - Family history:: not pertinent. Screenin/01 00:32 [facility] ED Fall Risk Assessment (Adult) History of falling in the last 3 months, ll3 including since admission Yes- single mechanical fall (1 pt) Confusion or Disorientation No (0 pts) Intoxicated or Sedated No (0 pts) Impaired Gait No (0 pts) Mobility Assist Device Used No (0 pt) Altered Elimination No (0 pt) Score/Fall Risk Level 0 - 2 = Low Risk Oriented to surroundings, Maintained a safe environment, Educated pt \\T\\ family on fall prevention, incl call for assistance when getting out of bed. Abuse screen: Denies threats or abuse. Denies injuries from another. Nutritional screening: No deficits noted. Tuberculosis screening: No symptoms or risk factors identified. Assessment: 10/01 21:50 General: See triage assessment. ll3 10/02 00:32 Reassessment: No changes from previously documented assessment. Patient and/or family ll3 updated on plan of care and expected duration. Pain level reassessed. Patient is alert, oriented x 3, equal unlabored respirations, skin warm/dry/pink. Vital Signs: 10/01 21:47 BP 158 / 88; Pulse 76; Resp 17; Pulse Ox 98% on R/A; Height 5 ft. 11 in. ; nj1 23:17 BP 140 / 80; Pulse 72; Resp 16; Pulse Ox 100% on R/A; ll3 10/02 00:31 BP 138 / 76; Pulse 67; Resp 17; Pulse Ox 100% on R/A; ll3 01:50 BP 154 / 82; Pulse 68; Resp 16; Pulse Ox 100% on R/A; ll3 ED Course: 10/01 21:49 Patient arrived in ED. rv1 21:49 Maninder Flores MD is Attending Physician. sp4 22:27 Triage completed. nj1 22:29 Arm band placed on Patient placed in an exam room, on a stretcher, on pulse oximetry. ll3 22:46 Elbow Right 3 View XRAY In Process Unspecified. EDMS 23:03 CT Head Brain wo Cont In Process Unspecified. EDMS 10/02 00:32 Patient has correct armband on for positive identification. Bed in low position. Call ll3 light in reach. Side rails up X2. 01:50 No provider procedures requiring assistance completed. Patient did not have IV access ll3 during this emergency room visit. Administered Medications: No medications were administered Medication: 01:50 VIS not applicable for this client. ll3 Outcome: 01:12 Discharge ordered by . sp4 01:50 Discharged to home ambulatory. ll3 01:50 Condition: stable 01:50 Discharge instructions given to patient, group home, Instructed on discharge instructions, follow up and referral plans. Demonstrated understanding of instructions, follow-up care. 01:51 Patient left the ED. ll3 Signatures: Dispatcher [employer] EDMS Dennys Mariano RN RN ll3 Diann Merchant rv1 Maninder Flores MD MD sp4 Aiyana Che RN RN nj1 Corrections: (The following items were deleted from the chart) 00:31 00:30 General: See triage assessment. ll3 ll3
--- NOTE | 2022-10-02 01:13 | EDPHYS ---
Physician Documentation [facility] Name: Tim Ahn Age: 82 yrs Sex: Male : 1940 Arrival Date: 10/01/2022 Time: 21:45 Bed 14 Private MD: ED Physician Maninder Flores HPI: 10/01 21:50 This 82 yrs old Male presents to ER via Unassigned with complaints of fall, sp4 head injury . 22:03 Very pleasant 82-year-old male who takes Plavix daily presents with acute head injury sp4 after accidental fall on someone else's property also associated with a right elbow injury and swelling. Patient arrived with EMS EMS reported hematoma to posterior scalp also reports hematoma to the right elbow at the olecranon process. History of multiple falls with multiple abrasions and skin tears to bilateral forearms and bilateral lower extremities as well. At this time patient denies headache, denies elbow pain, denies loss of consciousness, denies nausea or vomiting, denies dizziness or blurred vision. . 22:03 Patient's old medical records states that he is actually on Xarelto and not on Plavix. .sp4 Historical: - Allergies: 21:50 Wavwqmz-LIA-YnT Reductase Inhibitors; nj1 - PMHx: 21:50 Atrial Fib; Hypertension; Alzheimer's disease; Dementia; Anemia; Coronary nj1 atherosclerosis; - PSHx: 21:50 Aortocoronary bypass graft; nj1 - Immunization history:: Pt states he has gotten "6 shots". - Social history:: Smoking status: Patient/guardian denies using tobacco, but has a distant history of tobacco abuse. - Family history:: not pertinent. ROS: 10/02 01:04 Constitutional: Negative for fever, chills, and weight loss, Eyes: Negative for injury, sp4 pain, redness, and discharge, ENT: Negative for injury, pain, and discharge, Neck: Negative for injury, pain, and swelling, Cardiovascular: Negative for chest pain, palpitations, and edema, Respiratory: Negative for shortness of breath, cough, wheezing, and pleuritic chest pain, Abdomen/GI: Negative for abdominal pain, nausea, vomiting, diarrhea, and constipation, Back: Negative for injury and pain, : Negative for injury, bleeding, discharge, and swelling, MS/Extremity: Negative for pain, right elbow injury with right elbow hematoma at olecranon process. Skin: Negative for injury, rash, and discoloration, Neuro: Negative for headache, weakness, numbness, tingling, and seizure, Psych: Negative for depression, anxiety, Allergy/Immunology: Negative for hives, rash, and allergies Endocrine: Negative for neck swelling, polydipsia, polyuria, polyphagia, and weight changes Hematologic/Lymphatic: Negative for swollen nodes, abnormal bleeding, and unusual bruising 01:04 MS/Extremity: Right elbow injury and swelling sp4 Exam: 01:04 Constitutional: This is a well developed, well nourished patient who is awake, alert, sp4 and in no acute distress. Head/Face: Normocephalic, atraumatic. Mild posterior scalp hematoma without laceration Eyes: Pupils equal round and reactive to light, extra-ocular motions intact. Lids and lashes normal. Conjunctiva and sclera are not injected. Cornea within normal limits. Periorbital areas with no swelling, redness, or edema. ENT: Nares patent. No nasal discharge, no septal abnormalities noted. Tympanic membranes are normal and external auditory canals are clear. Oropharynx with no redness, swelling, or masses, exudates, or evidence of obstruction, uvula midline. Mucous membranes moist. Neck: Trachea midline, no thyromegaly or masses palpated, and no cervical lymphadenopathy. Supple, full range of motion without nuchal rigidity, or vertebral point tenderness. No Meningismus. Chest/axilla: Normal chest wall appearance and motion. Nontender with no deformity. No lesions are appreciated. Cardiovascular: Regular rate and rhythm with a normal S1 and S2. No gallops, murmurs, or rubs. Normal PMI, no JVD. No pulse deficits. Respiratory: Lungs have equal breath sounds bilaterally, clear to auscultation and percussion. No rales, rhonchi or wheezes noted. No increased work of breathing, no retractions or nasal flaring. Abdomen/GI: Soft, non-tender, with normal bowel sounds. No distension or tympany. No guarding or rebound. No evidence of tenderness throughout. Back: No spinal tenderness. No costovertebral tenderness. Skin: Warm, dry with normal turgor. Normal color with no rashes, no lesions, and no evidence of cellulitis. Multiple abrasions and senescent skin changes associated with the multiple subcutaneous small hemorrhages secondary to anticoagulant. Right elbow hematoma 01:04 MS/ Extremity: Pulses equal, no cyanosis. Neurovascular intact. Full, normal range sp4 of motion. Small right elbow hematoma at olecranon process, normal range of motion, pulses preserved, no deformity Neuro: Awake and alert, GCS 15, oriented to person, place, time, and situation. Cranial nerves II-XII grossly intact. Motor strength 5/5 in all extremities. Sensory grossly intact. Psych: Awake, alert, with orientation to person, place and time. Behavior, mood, and affect are within normal limits Vital Signs: 10/01 21:47 BP 158 / 88; Pulse 76; Resp 17; Pulse Ox 98% on R/A; Height 5 ft. 11 in. ; nj1 23:17 BP 140 / 80; Pulse 72; Resp 16; Pulse Ox 100% on R/A; ll3 10/02 00:31 BP 138 / 76; Pulse 67; Resp 17; Pulse Ox 100% on R/A; ll3 01:50 BP 154 / 82; Pulse 68; Resp 16; Pulse Ox 100% on R/A; ll3 MDM: 10/01 22:02 Patient medically screened. sp4 10/02 01:04 Differential Diagnosis Acute fall with head injury, right elbow contusion, right elbow sp4 hematoma, posterior scalp hematoma, concussion. Data reviewed: vital signs, nurses notes, EMS record, old medical records, radiologic studies, CT scan, plain films. ED course: Right elbow x-ray revealed questionable linear lucency within the right radial head soft tissue density or linear nondisplaced incomplete fracture cannot be excluded correlate with point tenderness. There is no point tenderness at the radial head, there is hematoma at olecranon process but otherwise no sign of acute elbow fracture on exam. . ED course: CT head reveals no acute intracranial hemorrhage, mild brain atrophy with minimal periventricular white matter changes of microvascular ischemia. 01:10 ED course: Patient stable for discharge home at this time, acute intracranial sp4 hemorrhage was ruled out. 10/01 22:03 Order name: CT Head Brain wo Cont sp4 10/01 22:03 Order name: Elbow Right 3 View XRAY sp4 Administered Medications: No medications were administered Disposition Summary: 10/02/22 01:12 Discharge Ordered Location: Home sp4 Problem: new sp4 Symptoms: are unchanged sp4 Condition: Stable sp4 Diagnosis - Acute posterior scalp injury, acute head injury, acute right elbow contusion, right sp4 elbow hematoma, multiple skin abrasions, acute fall from standing, posterior scalp hematoma Followup: sp4 - With: Private Physician - When: As needed - Reason: Discharge Instructions: - Discharge Summary Sheet sp4 - Head Injury, Adult, [id number] sp4 Forms: - Thank You Letter sp4 Signatures: Dispatcher [employer] Maninder He MD MD sp4 Aiyana Che RN RN nj1
[2022-10-02 01:58] VITALS: O2SAT 100
[2022-10-02 02:00] VITALS: BP 154/82
--- NOTE | 2022-10-02 14:15 | RAD REPORT ---
EXAM DESCRIPTION: CT - Head Brain Wo Cont - 10/02/2022 6:39 am CLINICAL HISTORY: 82 years, Male, fall , on anticoagulation COMPARISON: 08/14/2019. FINDINGS: Multiple transaxial tomograms of the brain were obtained from the base of the skull to the vertex without contrast. 2-D multiplanar reformats and the coronal and sagittal plane were performed and reviewed. This exam was performed according to our departmental dose-optimization protocol, which includes auto mated exposure control, adjustment of the mA and/or kV according to patient size and/or use of iterat kingsley reconstruction technique. Brain parenchyma demonstrate mild prominence of the sulci and gyri are corresponding to mild cerebral and cerebellar atrophy. There is minimal periventricular white matter changes of microvascular [place]. There is no midline shift and/or mass effect. There is no evidence for acute intracranial hemorr elijah. Lateral ventricles and cisterns displace normal appearance. No intra or extra axial fluid c ollections were seen. The calvarium is intact with no evidence for fracture. The visualized portions of the paranasal sinuses and orbits demonstrate to be clear. IMPRESSION: No acute intracranial hemorrhage identified. Mild brain atrophy with minimal periventricular white matter changes of microvascular ischemia. Electronically signed by: Brenton Rg MD 10/01/2022 11:16 PM CDT Due to temporary technical issues with the PACS/Fluency reporting system, reports are being signed by the in house radiologist without review as a courtesy to ensure prompt reporting. The interpreting r adiologist is fully responsible for the content of the report.
--- NOTE | 2022-10-02 14:16 | RAD REPORT ---
EXAM DESCRIPTION: RAD - Elbow Right 3 View - 10/01/2022 10:44 pm CLINICAL HISTORY: 82 years, Male, elbow injury Elbow Right 3 View COMPARISON: None FINDINGS: 3 X-ray views of the right foot (Frontal, lateral and oblique views) were performed. There is a questionable linear lucency within the radial head. No gross articular or soft tissue ab normality is identified. There are no gross intraosseous lesions. No periosteal reaction were see n. No definitive displaced fracture are identified, if symptoms persist, clinical correlation and/or further evaluation with CT scan and/or MRI could be of assistance. IMPRESSION: Questionable linear lucency within the radial head soft tissue density/or linear nondisp laced incomplete fracture cannot be excluded. Correlate with point tenderness. Electronically signed by: Brenton Rg MD 10/01/2022 11:14 PM CDT Due to temporary technical issues with the PACS/Fluency reporting system, reports are being signed by the in house radiologist without review as a courtesy to ensure prompt reporting. The interpreting r adiologist is fully responsible for the content of the report.
== END 2022-10-02 01:51 | disposition home or self-care (01) ==
LOC: ER 21:45
DX: S00.03XA Contusion of scalp, initial encounter (principal); S50.01XA Contusion of right elbow, initial encounter; W18.30XA Fall on same level, unspecified, initial encounter; I10 Essential (primary) hypertension; G30.9 Alzheimer's disease, unspecified; F02.80 Dementia in other diseases classified elsewhere, unspecified severity, without behavioral disturbance, psychotic disturbance, mood disturbance, and anxiety; I48.91 Unspecified atrial fibrillation; Z79.01 Long term (current) use of anticoagulants; Z95.1 Presence of aortocoronary bypass graft
CPT/HCPCS: 70450; 99284

== ENCOUNTER → 2023-06-19 | Emergency (ER) | payer OTHER ==
[~2023-06-19] MED LIST: PHENYLEPHRINE 0.5% NOSE 15ML NAS ONE
--- OUTSIDE RECORDS SUMMARY | 2023-06-19 16:01 | XMS REPORT | Continuity of Care Document ---
Author Name Unknown Address [address] [facility] [address] [place] [address] [facility] Address [address] [facility] [address] [place] [address] Care Team Providers Care Clinical Ob Name Role Phone Pcp, Patient Does Not Have A Primary Care Physic neyda ELAINA MARQUEZ Attending Clinician Jeffery Webb MD Attending Clinician [phone] JEFFERY SAHU Attending Clinician Sharon Knox Unassigned, [place] Attending Clinician U Arthur Patel Attending Clinician Salazar Lee Attending Clinician Jeffery Heaton MD Admitting Clinician [phone] JEFFERY SAHU Admitting Clinician Arthur Medina Admitting Clinician Salazar Lee Admitting Clinician Ashwin howell Payers Payer Name Policy Type Policy Number Effective Date Expirati on Date Source [employer] MANAGED MEDICARE PPO-SHERIE [id number] 2022 00:00:00 Allergies, Adverse Reactions, Alerts Allergy Name Allergy Type Status Severity Reaction(s) Onset Date Inactive Date Treating Clinician Comments Source Statins- HMG-CoA Reductas e Inhibito r DA Active SV UNKNOWN 15 00:00: 00 [facility] Statins- HMG-CoA Reductas e Inhibito r DA Active SV UNKNOWN 2022-0 3-08 00:00: 00 [facility] Aspirin- Dipyrida mole Propensi ty to adverse reaction s Active Other - See comments 2017-06 00:00: 00 Headaches and constipat ion [facility] Dexameth asone Propensi ty to adverse reaction s Active Other - See comments 2017-06 00:00: 00 Insomnia [facility] Diltiaze m Propensi ty to adverse reaction s Active Other - See comments 2017-06 00:00: 00 constipat ion [facility] Guanfaci ne Propensi ty to adverse reaction s Active Unknown - See comments 2017-06 00:00: 00 [facility] Lisinopr il Propensi ty to adverse reaction s Active Cough 2017-06 00:00: 00 [facility] Statins- Hmg-Coa Reductas e Inhibito rs Propensi ty to adverse reaction s Active Other - See comments 2017-06 00:00: 00 Muscle cramps [facility] Valsarta n Propensi ty to adverse reaction s Active Cough 2017-06 00:00: 00 Muscle cramps [facility] ASPIRIN- DIPYRIDA MOLE DRUG Active Other-Cmnt 2017-06 00:00: 00 [facility] DEXAMETH ASONE DRUG INGREDI Active Other-Cmnt 2017-06 00:00: 00 [facility] DILTIAZE M DRUG INGREDI Active Other-Cmnt 2017-06 00:00: 00 [facility] GUANFACI NE DRUG INGREDI Active Unknown-Cmnt 2017-06 00:00: 00 [facility] LISINOPR IL DRUG INGREDI Active COUGH 2017-06 00:00: 00 [facility] STATINS- HMG-COA REDUCTAS E INHIBITO RS Drug Class Active Other-Cmnt 2017-06 00:00: 00 [facility] VALSARTA N DRUG INGREDI Active Other-Cmnt 2017-06 00:00: 00 [facility] Social History Social Habit Start Date Stop Date Quantity Comments [facility] 2023-06-07 00:00:00 2023-06-07 00:00:00 Current non-drinker of alcohol (finding) [facility] History of Social function 2023-06-06 00:00:00 2023-06-06 00:00:00 [facility] Sex Assigned At 1940 00:00:00 1940 00:00:00 [facility] Smoking Status Start Date Stop Date Source Never smoked tobacco [facility] Medications Ordered Medication Name Filled Medication Name Start Date Stop Date Current Medication? Ordering Clinician Indication Dosage Frequency Signature (SIG) Comments Components Source neomycin-po lymyxin-dex amethasone (MAXITROL) 3.5 mg/g-10,000 unit/g-0.1 % ophthalmic ointment 06-06 16:41: 00 06-06 16:47 :26 No PRN, Starting on Sun06/06/23 at 1041, Until Sun06/06/23 at 1047, Routine, Intra-op [facility] dexamethaso ne (DECADRON PHOSPHATE) injection 06-06 16:41: 00 06-06 16:47 :26 No PRN, Starting on Sun06/06/23 at 1041, Until Sun06/06/23 at 1047, Routine, Intra-op [facility] ceFAZolin (ANCEF) injection 06-06 16:41: 00 06-06 16:47 :26 No PRN, Starting on Sun06/06/23 at 1041, Until Sun06/06/23 at 1047, TONI, Intra-op [facility] carbachoL (MIOSTAT) 0.01 % intraocular injection 06-06 16:40: 00 06-06 16:47 :26 No PRN, Starting on Sun06/06/23 at 1040, Until Sun06/06/23 at 1047, Routine, Intra-op [facility] sodium chloride (NS) injection 06-06 16:36: 00 06-06 16:47 :26 No PRN, Starting on Sun06/06/23 at 1036, Until Sun06/06/23 at 1047, Routine, Intra-op [facility] EPINEPHrine 1:1,000 (1 mg/mL) (ADRENALIN) injection 06-06 16:34: 00 06-06 16:47 :26 No PRN, Starting on Sun06/06/23 at 1034, Until Sun06/06/23 at 1047, Routine, Intra-op [facility] chondroitin sulf-sod hyaluronate (DUOVISC VISCO ELASTIC) intraocular injection 06-06 16:31: 00 06-06 16:47 :26 No PRN, Starting on Sun06/06/23 at 1031, Until Sun06/06/23 at 1047, Routine, Intra-op [facility] water for irrigation irrigation solution 06-06 16:24: 00 06-06 16:47 :26 No PRN, Starting on Sun06/06/23 at 1024, Until Sun06/06/23 at 1047, Routine, Intra-op [facility] balanced salt irrig soln comb1 (BSS PLUS) ophthalmic solution 500 mL bag 06-06 16:21: 00 06-06 16:47 :26 No PRN, Starting on Sun06/06/23 at 1021, Until Sun06/06/23 at 1047, Routine, Intra-op [facility] Hyaluronida se, Human Recomb. (HYLENEX) injection 06-06 16:20: 00 06-06 16:47 :26 No PRN, Starting on Sun06/06/23 at 1020, Until Sun06/06/23 at 1047, Routine, Intra-op [facility] eye block syringe 11 mL 06-06 16:20: 00 06-06 16:47 :26 No PRN, Starting on Sun06/06/23 at 1020, Until Sun06/06/23 at 1047, Intra-op [facility] cyclopent 1%-tropic 1%-phenyl 2.5%-ketor 0.5% (MYDRIATIC #5) ophthalmic solution syringe 0.5 mL 06-06 15:00: 00 06-06 14:55 :00 No .5mL 0.5 mL, Right Eye, ONCE, 1 dose, On Sun06/06/23 at 0900, Routine, DSU Pre-op [facility] lactated ringers IV infusion 1,000 mL 06-06 15:00: 00 06-06 14:55 :00 No 1000mL at 42 mL/hr, 1,000 mL, IV Infusion, ONCE, 1 dose, On Sun06/06/23 at 0900, Routine, DSU Pre-op [facility] cyclopent 1%-tropic 1%-phenyl 2.5%-ketor 0.5% (MYDRIATIC #5) ophthalmic solution syringe 0.5 mL 06-06 15:00: 00 06-06 14:55 :00 No .5mL 0.5 mL, Right Eye, ONCE, 1 dose, On Sun06/06/23 at 0900, Routine, DSU Pre-op [facility] lactated ringers IV infusion 1,000 mL 06-06 15:00: 00 06-06 14:55 :00 No 1000mL at 42 mL/hr, 1,000 mL, IV Infusion, ONCE, 1 dose, On Sun06/06/23 at 0900, Routine, DSU Pre-op [facility] gluc xie/chondro xie A/vit C/Mn (GLUCOSAMIN E 1500 COMPLEX ORAL) 06-06 11:20: 47 Yes 2{capsu le} Take 2 capsules by mouth daily. [facility] omega-3 fatty acids/fish oil (FISH OIL PEARLS ORAL) 06-06 11:20: 47 Yes Take 1 TAB-CAP/M2 by mouth daily. [facility] psyllium husk (METAMUCIL ORAL) 06-06 11:20: 47 Yes Take 1 TAB-CAP/M2 by mouth 2 (two) times daily. [facility] vit C/vit E/lutein/mi n/omega-3 (OCUVITE ORAL) 06-06 11:20: 47 Yes 1{capsu le} Take 1 capsule by mouth daily. [facility] montelukast 10 mg tablet 06-06 11:20: 47 Yes 10mg Take 1 tablet by mouth as needed. [facility] fexofenadin e 180 mg tablet 06-06 11:20: 47 Yes 180mg Take 1 tablet by mouth as needed for Allergies. [facility] methocarbam ol 500 mg tablet 06-06 11:20: 47 Yes 500mg Take 1 tablet by mouth as needed. [facility] nystatin 100,000 unit/gram cream 06-06 11:20: 47 Yes Apply to area(s) as needed. [facility] acetaminoph en 325 mg tablet 06-06 11:20: 47 Yes 650mg Take 2 tablets by mouth every 6 (six) hours as needed. [facility] betamethaso ne valerate 0.1 % ointment 06-06 11:20: 47 Yes Apply to area(s) as needed. [facility] HYDROXYZINE PAMOATE ORAL 06-06 11:20: 47 Yes Take 1 TAB-CAP/M2 by mouth as needed. [facility] aspirin 81 mg EC tablet 06-06 11:20: 47 Yes 81mg Take 1 tablet by mouth in the morning. [facility] clopidogreL 75 mg tablet 06-06 11:20: 47 Yes 75mg Take 1 tablet by mouth in the morning. [facility] DULoxetine (CYMBALTA) 60 mg capsule 06-06 11:20: 47 Yes 60mg Take 1 capsule by mouth in the morning. [facility] Ferrous Fumarate 325 mg (106 mg iron) tablet 06-06 11:20: 47 Yes 325mg Take 1 tablet by mouth in the morning. [facility] loratadine (CLARITIN) 10 mg tablet 06-06 11:20: 47 Yes 10mg Take 1 tablet by mouth in the morning. [facility] albuterol 90 mcg/actuati on inhaler 06-06 11:20: 47 Yes 2{puff} Inhale 2 Puffs every 6 (six) hours as needed for Wheezing or Shortness of Breath. [facility] loperamide 2 mg capsule 06-06 11:20: 47 Yes 2mg Take 1 capsule by mouth every 4 (four) hours as needed for Diarrhea. [facility] lactulose 10 gram/15 mL oral solution 06-06 11:20: 47 Yes 30mL Take 30 mL by mouth 2 (two) times daily as needed for Constipati on. [facility] ondansetron 4 mg tablet 06-06 11:20: 47 Yes 4mg Take 1 tablet by mouth every 8 (eight) hours as needed. [facility] docusate 100 mg capsule 06-06 11:20: 47 Yes 100mg Take 1 capsule by mouth in the morning and 1 capsule in the evening. [facility] MULTIVITAMI N ORAL 06-06 11:20: 47 Yes Take 1 TAB-CAP/M2 by mouth daily. [facility] melatonin 3 mg tablet 06-06 11:20: 47 Yes 3mg Take 1 tablet by mouth at bedtime. [facility] gluc xie/chondro xie A/vit C/Mn (GLUCOSAMIN E 1500 COMPLEX ORAL) 06-06 11:20: 47 Yes 2{capsu le} Take 2 capsules by mouth daily. [facility] omega-3 fatty acids/fish oil (FISH OIL PEARLS ORAL) 06-06 11:20: 47 Yes Take 1 TAB-CAP/M2 by mouth daily. [facility] psyllium husk (METAMUCIL ORAL) 06-06 11:20: 47 Yes Take 1 TAB-CAP/M2 by mouth 2 (two) times daily. [facility] vit C/vit E/lutein/mi n/omega-3 (OCUVITE ORAL) 06-06 11:20: 47 Yes 1{capsu le} Take 1 capsule by mouth daily. [facility] montelukast 10 mg tablet 06-06 11:20: 47 Yes 10mg Take 1 tablet by mouth as needed. [facility] fexofenadin e 180 mg tablet 06-06 11:20: 47 Yes 180mg Take 1 tablet by mouth as needed for Allergies. [facility] methocarbam ol 500 mg tablet 06-06 11:20: 47 Yes 500mg Take 1 tablet by mouth as needed. [facility] nystatin 100,000 unit/gram cream 06-06 11:20: 47 Yes Apply to area(s) as needed. [facility] acetaminoph en 325 mg tablet 06-06 11:20: 47 Yes 650mg Take 2 tablets by mouth every 6 (six) hours as needed. [facility] betamethaso ne valerate 0.1 % ointment 06-06 11:20: 47 Yes Apply to area(s) as needed. [facility] HYDROXYZINE PAMOATE ORAL 06-06 11:20: 47 Yes Take 1 TAB-CAP/M2 by mouth as needed. [facility] aspirin 81 mg EC tablet 06-06 11:20: 47 Yes 81mg Take 1 tablet by mouth in the morning. [facility] clopidogreL 75 mg tablet 06-06 11:20: 47 Yes 75mg Take 1 tablet by mouth in the morning. [facility] DULoxetine (CYMBALTA) 60 mg capsule 06-06 11:20: 47 Yes 60mg Take 1 capsule by mouth in the morning. [facility] Ferrous Fumarate 325 mg (106 mg iron) tablet 06-06 11:20: 47 Yes 325mg Take 1 tablet by mouth in the morning. [facility] loratadine (CLARITIN) 10 mg tablet 06-06 11:20: 47 Yes 10mg Take 1 tablet by mouth in the morning. [facility] albuterol 90 mcg/actuati on inhaler 06-06 11:20: 47 Yes 2{puff} Inhale 2 Puffs every 6 (six) hours as needed for Wheezing or Shortness of Breath. [facility] loperamide 2 mg capsule 06-06 11:20: 47 Yes 2mg Take 1 capsule by mouth every 4 (four) hours as needed for Diarrhea. [facility] lactulose 10 gram/15 mL oral solution 06-06 11:20: 47 Yes 30mL Take 30 mL by mouth 2 (two) times daily as needed for Constipati on. [facility] ondansetron 4 mg tablet 06-06 11:20: 47 Yes 4mg Take 1 tablet by mouth every 8 (eight) hours as needed. [facility] docusate 100 mg capsule 06-06 11:20: 47 Yes 100mg Take 1 capsule by mouth in the morning and 1 capsule in the evening. [facility] MULTIVITAMI N ORAL 06-06 11:20: 47 Yes Take 1 TAB-CAP/M2 by mouth daily. [facility] melatonin 3 mg tablet 06-06 11:20: 47 Yes 3mg Take 1 tablet by mouth at bedtime. [facility] gluc xie/chondro xie A/vit C/Mn (GLUCOSAMIN E 1500 COMPLEX ORAL) 06-06 11:20: 47 Yes 2{capsu le} Take 2 capsules by mouth daily. [facility] omega-3 fatty acids/fish oil (FISH OIL PEARLS ORAL) 06-06 11:20: 47 Yes Take 1 TAB-CAP/M2 by mouth daily. [facility] psyllium husk (METAMUCIL ORAL) 06-06 11:20: 47 Yes Take 1 TAB-CAP/M2 by mouth 2 (two) times daily. [facility] vit C/vit E/lutein/mi n/omega-3 (OCUVITE ORAL) 06-06 11:20: 47 Yes 1{capsu le} Take 1 capsule by mouth daily. [facility] montelukast 10 mg tablet 06-06 11:20: 47 Yes 10mg Take 1 tablet by mouth as needed. [facility] fexofenadin e 180 mg tablet 06-06 11:20: 47 Yes 180mg Take 1 tablet by mouth as needed for Allergies. [facility] methocarbam ol 500 mg tablet 06-06 11:20: 47 Yes 500mg Take 1 tablet by mouth as needed. [facility] nystatin 100,000 unit/gram cream 06-06 11:20: 47 Yes Apply to area(s) as needed. [facility] acetaminoph en 325 mg tablet 06-06 11:20: 47 Yes 650mg Take 2 tablets by mouth every 6 (six) hours as needed. [facility] betamethaso ne valerate 0.1 % ointment 06-06 11:20: 47 Yes Apply to area(s) as needed. [facility] HYDROXYZINE PAMOATE ORAL 06-06 11:20: 47 Yes Take 1 TAB-CAP/M2 by mouth as needed. [facility] aspirin 81 mg EC tablet 06-06 11:20: 47 Yes 81mg Take 1 tablet by mouth in the morning. [facility] clopidogreL 75 mg tablet 06-06 11:20: 47 Yes 75mg Take 1 tablet by mouth in the morning. [facility] DULoxetine (CYMBALTA) 60 mg capsule 06-06 11:20: 47 Yes 60mg Take 1 capsule by mouth in the morning. [facility] Ferrous Fumarate 325 mg (106 mg iron) tablet 06-06 11:20: 47 Yes 325mg Take 1 tablet by mouth in the morning. [facility] loratadine (CLARITIN) 10 mg tablet 06-06 11:20: 47 Yes 10mg Take 1 tablet by mouth in the morning. [facility] albuterol 90 mcg/actuati on inhaler 06-06 11:20: 47 Yes 2{puff} Inhale 2 Puffs every 6 (six) hours as needed for Wheezing or Shortness of Breath. [facility] loperamide 2 mg capsule 06-06 11:20: 47 Yes 2mg Take 1 capsule by mouth every 4 (four) hours as needed for Diarrhea. [facility] lactulose 10 gram/15 mL oral solution 06-06 11:20: 47 Yes 30mL Take 30 mL by mouth 2 (two) times daily as needed for Constipati on. [facility] ondansetron 4 mg tablet 06-06 11:20: 47 Yes 4mg Take 1 tablet by mouth every 8 (eight) hours as needed. [facility] docusate 100 mg capsule 06-06 11:20: 47 Yes 100mg Take 1 capsule by mouth in the morning and 1 capsule in the evening. [facility] MULTIVITAMI N ORAL 06-06 11:20: 47 Yes Take 1 TAB-CAP/M2 by mouth daily. [facility] melatonin 3 mg tablet 06-06 11:20: 47 Yes 3mg Take 1 tablet by mouth at bedtime. [facility] rivastigmin e tartrate 1.5 mg capsule 06-05 00:00: 00 Yes [id number] 1.5mg Take 1 capsule by mouth every morning and evening. [facility] rivastigmin e tartrate 1.5 mg capsule 06-05 00:00: 00 Yes [id number] 1.5mg Take 1 capsule by mouth every morning and evening. [facility] rivastigmin e tartrate 1.5 mg capsule 06-05 00:00: 00 Yes [id number] 1.5mg Take 1 capsule by mouth every morning and evening. [facility] rivastigmin e tartrate 1.5 mg capsule 06-05 00:00: 00 Yes [id number] 1.5mg Take 1 capsule by mouth every morning and evening. [facility] lactulose 10 gram/15 mL oral solution 2022-06 13:28: 18 Yes 30mL Take 30 mL by mouth 2 (two) times daily as needed for Constipati on. [facility] ondansetron 4 mg tablet 2022-06 13:28: 18 Yes 4mg Take 1 tablet by mouth every 8 (eight) hours as needed. [facility] lactulose 10 gram/15 mL oral solution 2022-06 13:28: 18 Yes 30mL Take 30 mL by mouth 2 (two) times daily as needed for Constipati on. [facility] ondansetron 4 mg tablet 2022-06 13:28: 18 Yes 4mg Take 1 tablet by mouth every 8 (eight) hours as needed. [facility] lactulose 10 gram/15 mL oral solution 2022-06 13:28: 18 Yes 30mL Take 30 mL by mouth 2 (two) times daily as needed for Constipati on. [facility] ondansetron 4 mg tablet 2022-06 13:28: 18 Yes 4mg Take 1 tablet by mouth every 8 (eight) hours as needed. [facility] lactulose 10 gram/15 mL oral solution 2022-06 13:28: 18 Yes 30mL Take 30 mL by mouth 2 (two) times daily as needed for Constipati on. [facility] ondansetron 4 mg tablet 2022-06 13:28: 18 Yes 4mg Take 1 tablet by mouth every 8 (eight) hours as needed. [facility] aspirin 81 mg EC tablet 2022-06 13:28: 17 Yes 81mg Take 1 tablet by mouth in the morning. [facility] clopidogreL 75 mg tablet 2022-06 13:28: 17 Yes 75mg Take 1 tablet by mouth in the morning. [facility] DULoxetine (CYMBALTA) 60 mg capsule 2022-06 13:28: 17 Yes 60mg Take 1 capsule by mouth in the morning. [facility] Ferrous Fumarate 325 mg (106 mg iron) tablet 2022-06 13:28: 17 Yes 325mg Take 1 tablet by mouth in the morning. [facility] loratadine (CLARITIN) 10 mg tablet 2022-06 13:28: 17 Yes 10mg Take 1 tablet by mouth in the morning. [facility] albuterol 90 mcg/actuati on inhaler 2022-06 13:28: 17 Yes 2{puff} Inhale 2 Puffs every 6 (six) hours as needed for Wheezing or Shortness of Breath. [facility] loperamide 2 mg capsule 2022-06 13:28: 17 Yes 2mg Take 1 capsule by mouth every 4 (four) hours as needed for Diarrhea. [facility] aspirin 81 mg EC tablet 2022-06 13:28: 17 Yes 81mg Take 1 tablet by mouth in the morning. [facility] clopidogreL 75 mg tablet 2022-06 13:28: 17 Yes 75mg Take 1 tablet by mouth in the morning. [facility] DULoxetine (CYMBALTA) 60 mg capsule 2022-06 13:28: 17 Yes 60mg Take 1 capsule by mouth in the morning. [facility] Ferrous Fumarate 325 mg (106 mg iron) tablet 2022-06 13:28: 17 Yes 325mg Take 1 tablet by mouth in the morning. [facility] loratadine (CLARITIN) 10 mg tablet 2022-06 13:28: 17 Yes 10mg Take 1 tablet by mouth in the morning. [facility] albuterol 90 mcg/actuati on inhaler 2022-06 13:28: 17 Yes 2{puff} Inhale 2 Puffs every 6 (six) hours as needed for Wheezing or Shortness of Breath. [facility] loperamide 2 mg capsule 2022-06 13:28: 17 Yes 2mg Take 1 capsule by mouth every 4 (four) hours as needed for Diarrhea. [facility] aspirin 81 mg EC tablet 2022-06 13:28: 17 Yes 81mg Take 1 tablet by mouth in the morning. [facility] clopidogreL 75 mg tablet 2022-06 13:28: 17 Yes 75mg Take 1 tablet by mouth in the morning. [facility] DULoxetine (CYMBALTA) 60 mg capsule 2022-06 13:28: 17 Yes 60mg Take 1 capsule by mouth in the morning. [facility] Ferrous Fumarate 325 mg (106 mg iron) tablet 2022-06 13:28: 17 Yes 325mg Take 1 tablet by mouth in the morning. [facility] loratadine (CLARITIN) 10 mg tablet 2022-06 13:28: 17 Yes 10mg Take 1 tablet by mouth in the morning. [facility] albuterol 90 mcg/actuati on inhaler 2022-06 13:28: 17 Yes 2{puff} Inhale 2 Puffs every 6 (six) hours as needed for Wheezing or Shortness of Breath. [facility] loperamide 2 mg capsule 2022-06 13:28: 17 Yes 2mg Take 1 capsule by mouth every 4 (four) hours as needed for Diarrhea. [facility] aspirin 81 mg EC tablet 2022-06 13:28: 17 Yes 81mg Take 1 tablet by mouth in the morning. [facility] clopidogreL 75 mg tablet 2022-06 13:28: 17 Yes 75mg Take 1 tablet by mouth in the morning. [facility] DULoxetine (CYMBALTA) 60 mg capsule 2022-06 13:28: 17 Yes 60mg Take 1 capsule by mouth in the morning. [facility] Ferrous Fumarate 325 mg (106 mg iron) tablet 2022-06 13:28: 17 Yes 325mg Take 1 tablet by mouth in the morning. [facility] loratadine (CLARITIN) 10 mg tablet 2022-06 13:28: 17 Yes 10mg Take 1 tablet by mouth in the morning. [facility] albuterol 90 mcg/actuati on inhaler 2022-06 13:28: 17 Yes 2{puff} Inhale 2 Puffs every 6 (six) hours as needed for Wheezing or Shortness of Breath. [facility] loperamide 2 mg capsule 2022-06 13:28: 17 Yes 2mg Take 1 capsule by mouth every 4 (four) hours as needed for Diarrhea. [facility] docusate 100 mg capsule 2022-06 13:12: 22 Yes 100mg Take 1 capsule by mouth in the morning and 1 capsule in the evening. [facility] MULTIVITAMI N ORAL 2022-06 13:12: 22 Yes Take 1 TAB-CAP/M2 by mouth daily. [facility] melatonin 3 mg tablet 2022-06 13:12: 22 Yes 3mg Take 1 tablet by mouth at bedtime. [facility] gluc xie/chondro xie A/vit C/Mn (GLUCOSAMIN E 1500 COMPLEX ORAL) 2022-06 13:12: 22 Yes 2{capsu le} Take 2 capsules by mouth daily. [facility] omega-3 fatty acids/fish oil (FISH OIL PEARLS ORAL) 2022-06 13:12: 22 Yes Take 1 TAB-CAP/M2 by mouth daily. [facility] psyllium husk (METAMUCIL ORAL) 2022-06 13:12: 22 Yes Take 1 TAB-CAP/M2 by mouth 2 (two) times daily. [facility] vit C/vit E/lutein/mi n/omega-3 (OCUVITE ORAL) 2022-06 13:12: 22 Yes 1{capsu le} Take 1 capsule by mouth daily. [facility] montelukast 10 mg tablet 2022-06 13:12: 22 Yes 10mg Take 1 tablet by mouth as needed. [facility] fexofenadin e 180 mg tablet 2022-06 13:12: 22 Yes 180mg Take 1 tablet by mouth as needed for Allergies. [facility] methocarbam ol 500 mg tablet 2022-06 13:12: 22 Yes 500mg Take 1 tablet by mouth as needed. [facility] nystatin 100,000 unit/gram cream 2022-06 13:12: 22 Yes Apply to area(s) as needed. [facility] acetaminoph en 325 mg tablet 2022-06 13:12: 22 Yes 650mg Take 2 tablets by mouth every 6 (six) hours as needed. [facility] betamethaso ne valerate 0.1 % ointment 2022-06 13:12: 22 Yes Apply to area(s) as needed. [facility] HYDROXYZINE PAMOATE ORAL 2022-06 13:12: 22 Yes Take 1 TAB-CAP/M2 by mouth as needed. [facility] docusate 100 mg capsule 2022-06 13:12: 22 Yes 100mg Take 1 capsule by mouth in the morning and 1 capsule in the evening. [facility] MULTIVITAMI N ORAL 2022-06 13:12: 22 Yes Take 1 TAB-CAP/M2 by mouth daily. [facility] melatonin 3 mg tablet 2022-06 13:12: 22 Yes 3mg Take 1 tablet by mouth at bedtime. [facility] gluc xie/chondro xie A/vit C/Mn (GLUCOSAMIN E 1500 COMPLEX ORAL) 2022-06 13:12: 22 Yes 2{capsu le} Take 2 capsules by mouth daily. [facility] omega-3 fatty acids/fish oil (FISH OIL PEARLS ORAL) 2022-06 13:12: 22 Yes Take 1 TAB-CAP/M2 by mouth daily. [facility] psyllium husk (METAMUCIL ORAL) 2022-06 13:12: 22 Yes Take 1 TAB-CAP/M2 by mouth 2 (two) times daily. [facility] vit C/vit E/lutein/mi n/omega-3 (OCUVITE ORAL) 2022-06 13:12: 22 Yes 1{capsu le} Take 1 capsule by mouth daily. [facility] montelukast 10 mg tablet 2022-06 13:12: 22 Yes 10mg Take 1 tablet by mouth as needed. [facility] fexofenadin e 180 mg tablet 2022-06 13:12: 22 Yes 180mg Take 1 tablet by mouth as needed for Allergies. [facility] methocarbam ol 500 mg tablet 2022-06 13:12: 22 Yes 500mg Take 1 tablet by mouth as needed. [facility] nystatin 100,000 unit/gram cream 2022-06 13:12: 22 Yes Apply to area(s) as needed. [facility] acetaminoph en 325 mg tablet 2022-06 13:12: 22 Yes 650mg Take 2 tablets by mouth every 6 (six) hours as needed. [facility] betamethaso ne valerate 0.1 % ointment 2022-06 13:12: 22 Yes Apply to area(s) as needed. [facility] HYDROXYZINE PAMOATE ORAL 2022-06 13:12: 22 Yes Take 1 TAB-CAP/M2 by mouth as needed. [facility] docusate 100 mg capsule 2022-06 13:12: 22 Yes 100mg Take 1 capsule by mouth in the morning and 1 capsule in the evening. [facility] MULTIVITAMI N ORAL 2022-06 13:12: 22 Yes Take 1 TAB-CAP/M2 by mouth daily. [facility] melatonin 3 mg tablet 2022-06 13:12: 22 Yes 3mg Take 1 tablet by mouth at bedtime. [facility] gluc xie/chondro xie A/vit C/Mn (GLUCOSAMIN E 1500 COMPLEX ORAL) 2022-06 13:12: 22 Yes 2{capsu le} Take 2 capsules by mouth daily. [facility] omega-3 fatty acids/fish oil (FISH OIL PEARLS ORAL) 2022-06 13:12: 22 Yes Take 1 TAB-CAP/M2 by mouth daily. [facility] psyllium husk (METAMUCIL ORAL) 2022-06 13:12: 22 Yes Take 1 TAB-CAP/M2 by mouth 2 (two) times daily. [facility] vit C/vit E/lutein/mi n/omega-3 (OCUVITE ORAL) 2022-06 13:12: 22 Yes 1{capsu le} Take 1 capsule by mouth daily. [facility] montelukast 10 mg tablet 2022-06 13:12: 22 Yes 10mg Take 1 tablet by mouth as needed. [facility] fexofenadin e 180 mg tablet 2022-06 13:12: 22 Yes 180mg Take 1 tablet by mouth as needed for Allergies. [facility] methocarbam ol 500 mg tablet 2022-06 13:12: 22 Yes 500mg Take 1 tablet by mouth as needed. [facility] nystatin 100,000 unit/gram cream 2022-06 13:12: 22 Yes Apply to area(s) as needed. [facility] acetaminoph en 325 mg tablet 2022-06 13:12: 22 Yes 650mg Take 2 tablets by mouth every 6 (six) hours as needed. [facility] betamethaso ne valerate 0.1 % ointment 2022-06 13:12: 22 Yes Apply to area(s) as needed. [facility] HYDROXYZINE PAMOATE ORAL 2022-06 13:12: 22 Yes Take 1 TAB-CAP/M2 by mouth as needed. [facility] docusate 100 mg capsule 2022-06 13:12: 22 Yes 100mg Take 1 capsule by mouth in the morning and 1 capsule in the evening. [facility] MULTIVITAMI N ORAL 2022-06 13:12: 22 Yes Take 1 TAB-CAP/M2 by mouth daily. [facility] melatonin 3 mg tablet 2022-06 13:12: 22 Yes 3mg Take 1 tablet by mouth at bedtime. [facility] gluc xie/chondro xie A/vit C/Mn (GLUCOSAMIN E 1500 COMPLEX ORAL) 2022-06 13:12: 22 Yes 2{capsu le} Take 2 capsules by mouth daily. [facility] omega-3 fatty acids/fish oil (FISH OIL PEARLS ORAL) 2022-06 13:12: 22 Yes Take 1 TAB-CAP/M2 by mouth daily. [facility] psyllium husk (METAMUCIL ORAL) 2022-06 13:12: 22 Yes Take 1 TAB-CAP/M2 by mouth 2 (two) times daily. [facility] vit C/vit E/lutein/mi n/omega-3 (OCUVITE ORAL) 2022-06 13:12: 22 Yes 1{capsu le} Take 1 capsule by mouth daily. [facility] montelukast 10 mg tablet 2022-06 13:12: 22 Yes 10mg Take 1 tablet by mouth as needed. [facility] fexofenadin e 180 mg tablet 2022-06 13:12: 22 Yes 180mg Take 1 tablet by mouth as needed for Allergies. [facility] methocarbam ol 500 mg tablet 2022-06 13:12: 22 Yes 500mg Take 1 tablet by mouth as needed. [facility] nystatin 100,000 unit/gram cream 2022-06 13:12: 22 Yes Apply to area(s) as needed. [facility] acetaminoph en 325 mg tablet 2022-06 13:12: 22 Yes 650mg Take 2 tablets by mouth every 6 (six) hours as needed. [facility] betamethaso ne valerate 0.1 % ointment 2022-06 13:12: 22 Yes Apply to area(s) as needed. [facility] HYDROXYZINE PAMOATE ORAL 2022-06 13:12: 22 Yes Take 1 TAB-CAP/M2 by mouth as needed. [facility] docusate 100 mg capsule 2017-06 14:56: 42 Yes 200mg Take 200 mg by mouth 2 (two) times daily. [facility] MULTIVITAMI N ORAL 2017-06 14:56: 42 Yes Take 1 TAB-CAP/M2 by mouth daily. [facility] melatonin 3 mg tablet 2017-06 14:56: 42 Yes 3mg Take 3 mg by mouth at bedtime. [facility] gluc xie/chondro xie A/vit C/Mn (GLUCOSAMIN E 1500 COMPLEX ORAL) 2017-06 14:56: 42 Yes 2{capsu le} Take 2 capsules by mouth daily. [facility] omega-3 fatty acids/fish oil (FISH OIL PEARLS ORAL) 2017-06 14:56: 42 Yes Take 1 TAB-CAP/M2 by mouth daily. [facility] psyllium husk (METAMUCIL ORAL) 2017-06 14:56: 42 Yes Take 1 TAB-CAP/M2 by mouth 2 (two) times daily. [facility] vit C/vit E/lutein/mi n/omega-3 (OCUVITE ORAL) 2017-06 14:56: 42 Yes 1{capsu le} Take 1 capsule by mouth daily. [facility] montelukast 10 mg tablet 2017-06 14:56: 42 Yes 10mg Take 10 mg by mouth as needed. [facility] fexofenadin e 180 mg tablet 2017-06 14:56: 42 Yes 180mg Take 180 mg by mouth as needed for Allergies. [facility] methocarbam ol 500 mg tablet 2017-06 14:56: 42 Yes 500mg Take 500 mg by mouth as needed. [facility] nystatin 100,000 unit/gram cream 2017-06 14:56: 42 Yes Apply to area(s) as needed. [facility] acetaminoph en 325 mg tablet 2017-06 14:56: 42 Yes 650mg Take 650 mg by mouth every 6 (six) hours as needed. [facility] betamethaso ne valerate 0.1 % ointment 2017-06 14:56: 42 Yes Apply to area(s) as needed. [facility] HYDROXYZINE PAMOATE ORAL 2017-06 14:56: 42 Yes Take 1 TAB-CAP/M2 by mouth as needed. [facility] Nitrofurant oin&Nit. Macrocryst 100 mg capsule 2017-06 0 00:00: 00 Yes [facility] Nitrofurant oin&Nit. Macrocryst 100 mg capsule 2017-06 00:00: 00 Yes [facility] Nitrofurant oin&Nit. Macrocryst 100 mg capsule 2017-06 00:00: 00 Yes [facility] Nitrofurant oin&Nit. Macrocryst 100 mg capsule 2017-06 00:00: 00 Yes [facility] Nitrofurant oin&Nit. Macrocryst 100 mg capsule 2017-06 00:00: 00 Yes [facility] Nitrofurant oin&Nit. Macrocryst 100 mg capsule 2017-06 00:00: 00 Yes [facility] Nitrofurant oin&Nit. Macrocryst 100 mg capsule 2017-06 00:00: 00 Yes [facility] Nitrofurant oin&Nit. Macrocryst 100 mg capsule 2017-06 00:00: 00 Yes [facility] amLODIPine 10 mg tablet 2017-06 00:00: 00 Yes 10mg Take 1 tablet by mouth in the morning. [facility] 2017-06 00:00: 00 Yes 10mg Take 1 tablet by mouth in the morning. [facility] amLODIPine 10 mg tablet 2017-06 00:00: 00 Yes 10mg Take 1 tablet by mouth in the morning. [facility] amLODIPine 10 mg tablet 2017-06 00:00: 00 Yes 10mg Take 1 tablet by mouth in the morning. [facility] am[facility] mg tablet 2017-06 00:00: 00 Yes 10mg Take 1 tablet by mouth in the morning. [facility] am[facility] 10 mg tablet 2017-06 00:00: 00 Yes 10mg Take 1 tablet by mouth in the morning. [facility] amLODIPine 10 mg tablet 2017-06 00:00: 00 Yes 10mg Take 10 mg by mouth daily. [facility] am[facility] 10 mg tablet 2017-06 00:00: 00 Yes 10mg Take 1 tablet by mouth in the morning. [facility] meloxicam 7.5 mg tablet 2017-06 00:00: 00 Yes TAKE 1 TABLET BY MOUTH EVERY DAY IN THE MORNING [facility] meloxicam 7.5 mg tablet 2017-06 00:00: 00 Yes TAKE 1 TABLET BY MOUTH EVERY DAY IN THE MORNING [facility] meloxicam 7.5 mg tablet 2017-06 00:00: 00 Yes TAKE 1 TABLET BY MOUTH EVERY DAY IN THE MORNING [facility] meloxicam 7.5 mg tablet 2017-06 00:00: 00 Yes TAKE 1 TABLET BY MOUTH EVERY DAY IN THE MORNING [facility] meloxicam 7.5 mg tablet 2017-06 00:00: 00 Yes TAKE 1 TABLET BY MOUTH EVERY DAY IN THE MORNING [facility] meloxicam 7.5 mg tablet 2017-06 00:00: 00 Yes TAKE 1 TABLET BY MOUTH EVERY DAY IN THE MORNING [facility] meloxicam 7.5 mg tablet 2017-06 00:00: 00 Yes TAKE 1 TABLET BY MOUTH EVERY DAY IN THE MORNING [facility] meloxicam 7.5 mg tablet 2017-06 00:00: 00 Yes TAKE 1 TABLET BY MOUTH EVERY DAY IN THE MORNING [facility] tamsulosin 0.4 mg 24 hr capsule 02-13 00:00: 00 Yes .4mg Take 1 capsule by mouth in the morning. [facility] tamsulosin 0.4 mg 24 hr capsule 02-13 00:00: 00 Yes .4mg Take 1 capsule by mouth in the morning. [facility] tamsulosin 0.4 mg 24 hr capsule 02-13 00:00: 00 Yes .4mg Take 1 capsule by mouth in the morning. [facility] tamsulosin 0.4 mg 24 hr capsule 02-13 00:00: 00 Yes .4mg Take 1 capsule by mouth in the morning. [facility] tamsulosin 0.4 mg 24 hr capsule 02-13 00:00: 00 Yes .4mg Take 1 capsule by mouth in the morning. [facility] tamsulosin 0.4 mg 24 hr capsule 0 02-13 00:00: 00 Yes .4mg Take 1 capsule by mouth in the morning. [facility] tamsulosin 0.4 mg 24 hr capsule 02-13 00:00: 00 Yes [facility] tamsulosin 0.4 mg 24 hr capsule 02-13 00:00: 00 Yes .4mg Take 1 capsule by mouth in the morning. [facility] XARELTO 15 mg tablet 0 02-11 00:00: 00 Yes [facility] XARELTO 15 mg tablet 0 02-11 00:00: 00 Yes [facility] XARELTO 15 mg tablet 0 02-11 00:00: 00 Yes [facility] XARELTO 15 mg tablet 0 02-11 00:00: 00 Yes [facility] XARELTO 15 mg tablet 0 02-11 00:00: 00 Yes [facility] XARELTO 15 mg tablet 0 02-11 00:00: 00 Yes [facility] XARELTO 15 mg tablet 0 02-11 00:00: 00 Yes [facility] XARELTO 15 mg tablet 0 02-11 00:00: 00 Yes [facility] metoprolol tartrate 12.5 mg 02-06 00:00: 00 Yes 12.5mg Take 1 half tablet by mouth in the morning and 1 half tablet in the evening. [facility] metoprolol tartrate 12.5 mg 02-06 00:00: 00 Yes 12.5mg Take 1 half tablet by mouth in the morning and 1 half tablet in the evening. [facility] metoprolol tartrate 12.5 mg 02-06 00:00: 00 Yes 12.5mg Take 1 half tablet by mouth in the morning and 1 half tablet in the evening. [facility] metoprolol tartrate 12.5 mg 0 02-06 00:00: 00 Yes 12.5mg Take 1 half tablet by mouth in the morning and 1 half tablet in the evening. [facility] metoprolol tartrate 12.5 mg 02-06 00:00: 00 Yes 12.5mg Take 1 half tablet by mouth in the morning and 1 half tablet in the evening. [facility] metoprolol tartrate 12.5 mg 02-06 00:00: 00 Yes 12.5mg Take 1 half tablet by mouth in the morning and 1 half tablet in the evening. [facility] metoprolol tartrate 50 mg tablet 02-06 00:00: 00 Yes [facility] metoprolol tartrate 12.5 mg 02-06 00:00: 00 Yes 12.5mg Take 1 half tablet by mouth in the morning and 1 half tablet in the evening. [facility] Vital Signs Vital Name Observation Time Observation Value Comments S ource Systolic blood pressure 2023-06-06 17:00:00 135 mm[Hg] [facility] Diastolic blood pressure 2023-06-06 17:00:00 65 mm[Hg] [facility] Heart rate 2023-06-06 17:00:00 72 /min [facility] Respiratory rate 2023-06-06 17:00:00 18 /min [facility] Oxygen saturation in Arterial blood by Pulse oximetry 2023-06-06 17:00:00 99 /min [facility] Body temperature 2023-06-06 16:43:00 36.11 Ximena [facility] Body height 2023-05-30 19:00:00 182.9 cm [facility] Body weight 2023-05-30 19:00:00 87 kg [facility] BMI 2023-05-30 19:00:00 26.01 kg/m2 [facility] Systolic blood pressure 2023-06-06 14:54:00 152 mm[Hg] [facility] Diastolic blood pressure 2023-06-06 14:54:00 96 mm[Hg] [facility] Heart rate 2023-06-06 14:54:00 86 /min [facility] Body temperature 2023-06-06 14:54:00 36.78 Ximena [facility] Respiratory rate 2023-06-06 14:54:00 19 /min [facility] Oxygen saturation in Arterial blood by Pulse oximetry 2023-06-06 14:54:00 96 /min [facility] Body height 2023-05-30 19:00:00 182.9 cm [facility] Body weight 2023-05-30 19:00:00 87 kg [facility] BMI 2023-05-30 19:00:00 26.01 kg/m2 [facility] Diastolic blood pressure 2023-06-05 21:13:00 86 mm[Hg] [facility] Systolic blood pressure 2023-06-05 21:13:00 167 mm[Hg] [facility] Body height 2023-06-05 21:12:00 182.9 cm [facility] Body weight 2023-06-05 21:12:00 80.831 kg [facility] BMI 2023-06-05 21:12:00 24.17 kg/m2 [facility] Procedures Procedure Date / Time Performed Performing Clinician Source PHACOEMULSIFICATION OF CATARACT WITH INTRAOCULAR LENS IMPLANT 2023-06-06 16:09:00 Jeffery Sahu [facility] CONSENT/REFUSAL FOR DIAGNOSI S AND TREATMENT 2023-06-05 20:44:20 Doctor Unassigned, [place] [facility] REFERRAL- REQUEST/RESPONSE 2023-05-24 06:01:00 Doctor Unassigned, [place] [facility] NOTICE OF BILLING PRACTICES FOR MEDICARE PATIENTS 2023-05-21 21:43:42 Doctor Unassigned, [place] [facility] NOTICE OF BILLING PRACTICES FOR MEDICARE PATIENTS 2023-05-21 21:43:42 Doctor Unassigned, [place] [facility] NO SHOW OR MISSED APPOINTMEN T POLICY ACKNOWLEDGEMENT 2023-05-21 21:41:21 Doctor Unassigned, [place] [facility] NO SHOW OR MISSED APPOINTMEN T POLICY ACKNOWLEDGEMENT 2023-05-21 21:41:21 Doctor Unassigned, [place] [facility] PATIENT FINANCIAL POLICY 2023-05-21 21:40:50 Doctor Unassigned, [place] [facility] PATIENT FINANCIAL POLICY 2023-05-21 21:40:50 Doctor Unassigned, [place] [facility] ASSIGNMENT OF BENEFITS 2023-05-21 21:40:25 Doctor Unassigned, [place] [facility] ASSIGNMENT OF BENEFITS 2023-05-21 21:40:25 Doctor Unassigned, [place] [facility] CONSENT/REFUSAL FOR DIAGNOSI S AND TREATMENT 2023-05-21 21:40:03 Doctor Unassigned, [place] [facility] CONSENT/REFUSAL FOR DIAGNOSI S AND TREATMENT 2023-05-21 21:40:03 Doctor Unassigned, [place] [facility] [id number] 2022-08-16 00:00:00 GIBJE.01 [facility] [id number] 2022-08-16 00:00:00 GIBJE.01 [facility] [id number] 2022-08-10 00:00:00 CHAAB.01 [facility] [id number] 2022-08-10 00:00:00 CHAAB.01 [facility] [id number] 2022-08-10 00:00:00 CHAAB.01 [facility] [id number] 2022-08-10 00:00:00 CHAAB.01 [facility] [id number] 2022-08-10 00:00:00 CHAAB.01 [facility] [id number] 2022-08-10 00:00:00 CHAAB.01 [facility] [id number] 2022-08-10 00:00:00 CHAAB.01 [facility] Encounters Start Date/Time End Date/Time Encounter Type Admission Type Attending Clinicians Care Facility Care Department Encounter ID Source 2023-07-09 09:00:00 2023-07-09 09:00:00 Outpatient ELAINA VALDEZ [facility] [id number] [facility] 2023-06-12 00:00:00 2023-06-12 00:00:00 Elaina Zapata [facility] [id number] [id number] [id number] [id number] [facility] 2023-06-06 08:44:00 2023-06-06 11:10:00 Hospital Encounter Jeffery Sahu [facility] [id number] 350.1.13.10 4.2.7.2.686 [id number] [facility] 2023-06-06 08:44:00 2023-06-06 11:10:00 Outpatient R JEFFERY SAHU [facility] O[facility] [id number] [facility] 2023-06-06 09:31:00 2023-06-06 10:04:00 Surgery Jeffery Sahu [facility] [id number] 350.1.13.10 4.2.7.2.686 [id number] [facility] 2023-06-05 15:00:00 2023-06-05 15:55:32 Office Visit [place] [id number] 350.1.13.10 4.2.7.2.686 [id number] [facility] 2023-06-05 15:00:00 2023-06-05 15:55:32 Outpatient R [facility] [id number] [facility] 2023-06-05 00:00:00 2023-06-05 00:00:00 Orders Only Doctor Unassigned, [place] [facility] [id number] 350.1.13.10 4.2.7.2.686 [id number] [facility] 2023-05-24 00:00:00 2023-05-24 00:00:00 Orders Only Doctor Unassigned, [place] [facility] [id number] 350.1.13.10 4.2.7.2.686 [id number] [facility] 2022-08-16 16:49:00 2022-09-02 11:18:00 Inpatient Arthur Jacques [facility] REHA [id number] 86 [facility] 2022-08-09 15:47:00 2022-08-16 16:47:00 Inpatient Thompson Dean [facility] INTE [id number] 79 [facility] Results Test Description Test Time Test Comments Results Result Co mments Source BASIC METABOLIC [id number] 15:02:00* Test Item Value Reference Range Interpretation Comme nts SODIUM (test code = NA) 140 mEq/L 134-147 N POTASSIUM (test code = K) 4.2 mEq/L 3.4-5.0 N CHLORIDE (test code = CL) 103 mEq/L 100-108 N CARBON DIOXIDE (test code = CO2) 28 mEq/l 21-33 N ANION GAP (test code = GAP) 13 0-20 N GLUCOSE (test code = GLU) 98 mg/dL 70-110 N BLOOD UREA NITROGEN (test code = BUN) 19 mg/dL 7-18 H GLOMERULAR FILTRATION RATE (test code = GFR) 37.6 70-80 L The Glomerular Filtration Rate is a calculated parameterbased on serum Creatinine, patient age and sex. GFR valuesless than 60 mL/min/1.73 square meters are indicative ofChronic Kidney Disease. Values less than 15 mL/min/1.73square meters indicate Kidney failure. The calculation forGFR is based on the CKD-EPI (2020) calculation. This formulais race indifferent and is the recommended formula for GFRby the National Kidney Foundation for Adults.The GFR will not calculate if the sex is unknown or if thepatient's age is <18 years. CREATININE (test code = CREAT) 1.8 mg/dL 0.6-1.3 H CALCIUM (test code = CA) 9.1 mg/dL 8.0-10.5 N CALCIUM [id number] 15:02:00* Test Item Value Reference Range Interpretation Comme nts CALCIUM IONIZED (test code = ALANNA) 1.16 MMOL/L 1.09-1.30 N COVID 19 INHOUSE [id number] 06:33:00* Test Item Value Reference Range Interpretation Comme nts COVID 19 INHOUSE AG (test code = [id number]) Negative Negative A negative resul t is presumptive and should be confirmedwith an FDA authorized molecular assay, if necessary forpatient management.A positive result does not rule out co-infections withother pathogens.This test detects both viable (live) and non-viable,SARS-CoV, and SARS-CoV-2. Test performance depends on theamount of virus (antigen) in the sample.This test has not been FDA cleared or approved; the test hasbeen authorized by FDA under an Emergency Use Authorization(EUA) for use by laboratories certified under the CLIA thatmeet the requirements to perform moderate, high or waivedcomplexity tests. [id number] 07:18:00* Test Item Value Reference Range Interpretation Comme nts ALBUMIN (test code = ALB) 3.20 g/dL 3.4-5.0 L [id number] 07:18:00* Test Item Value Reference Range Interpretation Comme nts PREALBUMIN (test code = PREALB) 12.0 mg/dL 16.0-40.0 L - US RETROPERITONEAL [id number] 00:00:00 [facility] 1940 Sex: M Name: BRENNAN AH[facility] : 1940 Age/S: 82 / M [address] [place] [address] Unit #: [id number] Loc: [place] [address] Phys: Maura Terrazas MD Acct: [id number] Dis Date: Status: ADM IN PHONE #: [phone] Exam Date: 08/28/2022 1300 FAX #: [phone] Reason: renal failure EXAMS: CPT CODE: [id number] US RETROPERITONEAL COM [id number] PROCEDURE INFORMATION: Exam: US Retroperitoneal; Complete; Kidneys [...] Terrazas MD; Arthur Fuentes Technologist: [facility] Date/Time: 08/28/2022 (1416) [email or web address] Orig Print D/T: S: 023 (1417) Probe: PAGE 1 Signed ReportBASIC METABOLIC [id number] 07:45:00* Test Item Value Reference Range Interpretation Comme nts SODIUM (test code = NA) 137 mEq/L 134-147 N POTASSIUM (test code = K) 3.9 mEq/L 3.4-5.0 N CHLORIDE (test code = CL) 101 mEq/L 100-108 N CARBON DIOXIDE (test code = CO2) 29 mEq/l 21-33 N ANION GAP (test code = GAP) 11 0-20 N GLUCOSE (test code = GLU) 102 mg/dL 70-110 N BLOOD UREA NITROGEN (test code = BUN) 23 mg/dL 7-18 H GLOMERULAR FILTRATION RATE (test code = GFR) 37.6 70-80 L The Glomerular Filtration Rate is a calculated parameterbased on serum Creatinine, patient age and sex. GFR valuesless than 60 mL/min/1.73 square meters are indicative ofChronic Kidney Disease. Values less than 15 mL/min/1.73square meters indicate Kidney failure. The calculation forGFR is based on the CKD-EPI (2020) calculation. This formulais race indifferent and is the recommended formula for GFRby the National Kidney Foundation for Adults.The GFR will not calculate if the sex is unknown or if thepatient's age is <18 years. CREATININE (test code = CREAT) 1.8 mg/dL 0.6-1.3 H CALCIUM (test code = CA) 9.0 mg/dL 8.0-10.5 N CALCIUM [id number] 07:45:00* Test Item Value Reference Range Interpretation Comme nts CALCIUM IONIZED (test code = ALANNA) 1.17 MMOL/L 1.09-1.30 N GLUCOSE [id number] 20:40:00* Test Item Value Reference Range Interpretation Comme nts GLUCOSE BEDSIDE (test code = GLUBED) 106 MG/DL 70-110 N Performed by cer tified slice plug cutter operator at [facility] CORTISOL [id number] 07:42:00* Test Item Value Reference Range Interpretation Comme nts CORTISOL AM (test code = CORTAM) 29.44 ug/dL Reference Interv al: 2mo-13yrs: 2.4-22.9 ug/dL 14-15yrs(Male): 2.5-22.9 ug/dL 14-15yrs(Female): 2.5-28.6 ug/dL 16-18yrs(M/F): 2.4-28.6 ug/dLAdults(M/F) AM: 4.3-22.4 ug/dLAdults(M/F) PM: 3.1-16.7 ug/dL BASIC METABOLIC [id number] 07:37:00* Test Item Value Reference Range Interpretation Comme nts SODIUM (test code = NA) 136 mEq/L 134-147 N POTASSIUM (test code = K) 3.8 mEq/L 3.4-5.0 N CHLORIDE (test code = CL) 100 mEq/L 100-108 N CARBON DIOXIDE (test code = CO2) 29 mEq/l 21-33 N ANION GAP (test code = GAP) 10 0-20 N GLUCOSE (test code = GLU) 96 mg/dL 70-110 N BLOOD UREA NITROGEN (test code = BUN) 24 mg/dL 7-18 H GLOMERULAR FILTRATION RATE (test code = GFR) 35.2 70-80 L The Glomerular Filtration Rate is a calculated parameterbased on serum Creatinine, patient age and sex. GFR valuesless than 60 mL/min/1.73 square meters are indicative ofChronic Kidney Disease. Values less than 15 mL/min/1.73square meters indicate Kidney failure. The calculation forGFR is based on the CKD-EPI (2020) calculation. This formulais race indifferent and is the recommended formula for GFRby the National Kidney Foundation for Adults.The GFR will not calculate if the sex is unknown or if thepatient's age is <18 years. CREATININE (test code = CREAT) 1.9 mg/dL 0.6-1.3 H CALCIUM (test code = CA) 9.1 mg/dL 8.0-10.5 N CALCIUM [id number] 07:37:00* Test Item Value Reference Range Interpretation Comme nts CALCIUM IONIZED (test code = ALANNA) 1.14 MMOL/L 1.09-1.30 N UA RFLX MICR CULT IF [id number] 10:40:00* Test Item Value Reference Range Interpretation Comme nts UA COLOR (test code = COLU) ALBERTO YEL/STRAW A UA APPEARANCE (test code = APPU) CLEAR CLEAR UA GLUCOSE DIPSTICK (test code = DGLUU) NEGATIVE NEGATIVE UA BILIRUBIN DIPSTICK (test code = BILU) NEGATIVE NEGATIVE UA KETONE DIPSTICK (test code = KETU) NEGATIVE NEGATIVE UA SPECIFIC GRAVITY (test code = SGU) 1.011 1.005-1.030 N UA BLOOD DIPSTICK (test code = SUZETTE) NEGATIVE NEGATIVE UA PH DIPSTICK (test code = KEREN) 5.0 5.0-7.0 N UA PROTEIN DIPSTICK (test code = PROU) NEGATIVE NEGATIVE UA UROBILINIOGEN DIPSTICK (test code = URO) COLOR INTERFERENCE mg/dL 0.2-1.0 UA NITRITE DIPSTICK (test code = LADONNA) COLOR INTERFERENCE NEGATIVE UA LEUKOCYTE ESTERASE DIPSTICK (test code = LEUU) NEGATIVE NEGATIVE UA WBC (test code = WBCU) 4-9 WBC/HPF 0-3 A UA RBC (test code = RBCU) 0-3 RBC/HPF 0-3 UA WBC NO REFLEX (test code = WBCUCL) 4-9 WBC/HPF 0-3 A UA BACTERIA (test code = BACU) TRACE /HPF NONE SEEN UA SQUAMOUS CELLS (test code = SQU) 0-5 /HPF NONE SEEN UA HYALINE CAST (test code = HYALU) 6-10 /LPF NONE SEEN UA MUCUS (test code = MUCU) TRACE /LPF NONE SEEN Indication for culture: Dysuria/FrequencySpecimen Description: STRAIGHT CATH- XR RIBS UNI 2 V [id number] 00:00:00 [facility] 1940 Sex: M FAX: Arthur Ceja [phone] [place]: St: ADM Name: BRENNAN [facility]N [facility] : 1940 Age/S: 82/M [address] [place] [address] Unit #: [id number] Loc: [address] [place] [address] Phys: Arthur Fuentes MD Acct: [id number] Dis Date: Status: ADM IN PHONE #: [phone] Exam Date: 08/24/2022 8567 FAX #: [phone] Reason: FALL, LEFT RIB PAIN EXAMS: CPT CODE: [id number] XR RIBS UNI 2 V LT [id number] PROCEDURE INFORMATION: Exam: XR Left Ribs Exam date and time: 08/24/2022 2:47 PM Age: 82 years old Clinical indication: Other: Fall, left rib pain TECHNIQUE: Imaging protocol: Radiologic examof the left ribs. Views: 2 views. COMPARISON: CR XR CHEST 1V 08/16/2022 5:01 AM FINDINGS: Lungs: Lowlung volumes are present bilaterally. No consolidation. Bibasilar atelectasis. Pleural spaces: Small left pleural effusion. No pneumothorax. Heart/Mediastinum: Heart size is within normal limits. Atherosclerotic calcifications. Bones/joints: Healing transverse fractures of the left lateral 7th and 8th ribs. Degenerative changes of the thoracic spine. Median sternotomy wires. Cervical spine fusionhardware. Notes: If there is further concern can consider additional views or bone scan. IMPRESSION: Healing fractures of the left lateral 7th and 8th ribs. Small left pleural effusion. at 1606 Reported and signed by: Florentino Perez M.D. CC: Arthur Fuentes Technologist: Irving Jiang RT(R); Mabel James RT(R) Trndcrd Date/Time/By: 08/24/2022 (1606) : By: [email or web address] Orig Print D/T: S: 08/24/2022 (7097) PAGE 1 Signed ReportBASIC METABOLIC [id number] 07:54:00* Test Item Value Reference Range Interpretation Comme nts SODIUM (test code = NA) 138 mEq/L 134-147 N POTASSIUM (test code = K) 4.2 mEq/L 3.4-5.0 N CHLORIDE (test code = CL) 100 mEq/L 100-108 N CARBON DIOXIDE (test code = CO2) 30 mEq/l 21-33 N ANION GAP (test code = GAP) 12 0-20 N GLUCOSE (test code = GLU) 93 mg/dL 70-110 N BLOOD UREA NITROGEN (test code = BUN) 30 mg/dL 7-18 H GLOMERULAR FILTRATION RATE (test code = GFR) 29.5 70-80 L The Glomerular Filtration Rate is a calculated parameterbased on serum Creatinine, patient age and sex. GFR valuesless than 60 mL/min/1.73 square meters are indicative ofChronic Kidney Disease. Values less than 15 mL/min/1.73square meters indicate Kidney failure. The calculation forGFR is based on the CKD-EPI (202) calculation. This formulais race indifferent and is the recommended formula for GFRby the National Kidney Foundation for Adults.The GFR will not calculate if the sex is unknown or if thepatient's age is <18 years. CREATININE (test code = CREAT) 2.2 mg/dL 0.6-1.3 H CALCIUM (test code = CA) 9.4 mg/dL 8.0-10.5 N [id number] 07:54:00* Test Item Value Reference Range Interpretation Comme nts MAGNESIUM (test code = MAG) 1.89 mg/dL 1.80-2.40 N CBC W/AUTO [id number] 07:40:00* Test Item Value Reference Range Interpretation Comme nts WHITE BLOOD CELL (test code = WBC) 10.4 x10 3/uL 4.5-11.0 N RED BLOOD CELL (test code = RBC) 3.20 x10 6/uL 4.00-5.60 L HEMOGLOBIN (test code = HGB) 9.7 g/dL 12.5-16.9 L HEMATOCRIT (test code = HCT) 30.4 % 37.5-50.7 L MEAN CELL VOLUME (test code = MCV) 95.0 fL 81.0-99.0 N MEAN CELL HGB (test code = MCH) 30.3 pg 27.0-33.0 N MEAN CELL HGB CONCETRATION (test code = MCHC) 31.9 g/dL 33.0-37.0 L RED CELL DISTRIBUTION WIDTH CV (test code = RDW) 14.6 % 11.5-14.5 H RED CELL DISTRIBUTION WIDTH SD (test code = RDW-SD) 49.9 fL 37.0-54.0 N PLATELET COUNT (test code = PLT) 489 x10 3/uL 150-400 H MEAN PLATELET VOLUME (test c ode = MPV) 9.3 fL 7.0-9.0 H NEUTROPHIL % (test code = NT%) 77.1 % 56.0-77.0 H IMMATURE GRANULOCYTE % (test code = IG%) 0.8 % 0.0-2.0 N LYMPHOCYTE % (test code = LY%) 8.0 % 14.0-32.0 L MONOCYTE % (test code = MO%) 6.8 % 4.8-9.0 N EOSINOPHIL % (test code = EO%) 6.5 % 0.3-3.7 H BASOPHIL % (test code = BA%) 0.8 % 0.0-2.0 N NUCLEATED RBC % (test code = NRBC%) 0.0 % 0-0 N NEUTROPHIL # (test code = NT#) 8.00 x10 3/uL 2.0-7.6 H IMMATURE GRANULOCYTE # (test code = IG#) 0.08 x10 3/uL 0.00-0.03 H LYMPHOCYTE # (test code = LY#) 0.83 x10 3/uL 1.0-3.8 L MONOCYTE # (test code = MO#) 0.71 x10 3/uL 0.1-0.8 N EOSINOPHIL # (test code = EO#) 0.67 x10 3/uL 0.0-0.2 H BASOPHIL # (test code = BA#) 0.08 x10 3/uL 0.0-0.2 N NUCLEATED RBC # (test code = NRBC#) 0.00 x10 3/uL 0.0-0.1 N MANUAL DIFF REQUIRED (test c ode = MDIFF) NO - XR ELBOW 2 VIEWS [id number] 00:00:[address] [facility] 1940 Sex: M FAX: Florentino Tripp [phone] [place]: St: ADM FAX: Arthur Ceja [phone] Name: BRENNAN AHN [facility] : 1940 Age/S: 82/M [address] [place] [address] Unit #: [id number] Loc: [address] [address] Phys: Florentnio Jimenez Acct: [id number] Dis Date: Status: ADM IN PHONE #: [phone] Exam Date: 08/23/2022 1840 FAX #: [phone] Reason: PAIN TO AREA, S/P FALL ON RIGHT SIDE 08/22 EXAMS: CPT CODE: [id number] XR ELBOW [address] [place] [address] PROCEDURE INFORMATION: Exam: XR Right Elbow Exam date and time: 08/23/2022 6:28 PM Age: 82 years old Clinical indication: Pain; Elbow; Right; Additional info: Pain to area, S/P fall on right side 08/22 TECHNIQUE: Imaging protocol:Radiologic exam of the right elbow. Views: 1 [...] signed by: Madi Pope M.D. CC: Florentino Powell; Arthur Fuentes Technologist: Shikha Bateman RT(R) Trnscrd Date/Time/By: 08/23/2022 (1922) : By: [email or web address] Orig Print D/T: S: 08/23/2022 (1922) PAGE 1 Signed ReportBASIC METABOLIC [id number] 08:00:00* Test Item Value Reference Range Interpretation Comme nts SODIUM (test code = NA) 137 mEq/L 134-147 N POTASSIUM (test code = K) 4.2 mEq/L 3.4-5.0 N CHLORIDE (test code = CL) 100 mEq/L 100-108 N CARBON DIOXIDE (test code = CO2) 31 mEq/l 21-33 N ANION GAP (test code = GAP) 10 0-20 N GLUCOSE (test code = GLU) 100 mg/dL 70-110 N BLOOD UREA NITROGEN (test code = BUN) 35 mg/dL 7-18 H GLOMERULAR FILTRATION RATE (test code = GFR) 29.5 70-80 L The Glomerular Filtration Rate is a calculated parameterbased on serum Creatinine, patient age and sex. GFR valuesless than 60 mL/min/1.73 square meters are indicative ofChronic Kidney Disease. Values less than 15 mL/min/1.73square meters indicate Kidney failure. The calculation forGFR is based on the CKD-EPI (2020) calculation. This formulais race indifferent and is the recommended formula for GFRby the National Kidney Foundation for Adults.The GFR will not calculate if the sex is unknown or if thepatient's age is <18 years. CREATININE (test code = CREAT) 2.2 mg/dL 0.6-1.3 H CALCIUM (test code = CA) 9.2 mg/dL 8.0-10.5 N CALCIUM [id number] 08:00:00* Test Item Value Reference Range Interpretation Comme nts CALCIUM IONIZED (test code = ALANNA) 1.14 MMOL/L 1.09-1.30 N - CT HEAD/BRAIN W/O [id number] 00:00:[address] [facility] : 1940 Sex: M Name: BRENNAN AHN [facility] [place] : 1940 Age/S: 82 / M [address] [place] [address] Unit #: [id number] Loc: [place] [address] Phys: Arthur Fuentes MD Acct: [id number] Dis Date: Status: ADM IN PHONE #: [phone] Exam Date: 08/22/2022 1546 FAX #: [phone] Reason: FALL-HIT RIGHT OCCIPTAL AREA ON FLOOR; ON PLAVI EXAMS: CPT CODE: [id number] CT HEAD/BRAIN W/O CONT 15168 DC OCEDURE INFORMATION: Exam: CT Head Without Contrast Exam date and time: 08/22/2022 3:46 PM Age: 82 years old Clinical indication: Injury or trauma; Fall; Blunt trauma (contusions or hematomas); Additional info: Fall-hit right occiptal area on floor; On plavix/asa TECHNIQUE: Imaging protocol: Computed tomography of the head without contrast. Radiation optimization: All CT scans at this facility useat least one of these dose optimization techniques: [...] mass effect or midline shift. Cerebral ventricles: No acute hydrocephalus. Paranasal sinuses: No fluid levels. Mastoid air cells: No mastoid effusion. Orbital cavities: No acute abnormalities. Bones/joints: No acute fracture. Soft tissues: No soft tissue hematoma. IMPRESSION: No acute intracranial abnormality, as above. at 1657 Reported and signed by: Yosi Padron M.D. PAGE 1 Signed Report (CONTINUED) Name: BRENNAN AHN [facility] [place] : 1940 Age/S: 82 / M [address] [place] [address] Unit #: [id number] Loc: [place] [address] Phys: Amaris Fuentes MD Acct: [id number] Dis Date: Status: ADM IN PHONE #: [phone] Exam Date: 08/22/2022 1546 FAX #: [phone] Reason: FALL-HIT RIGHT OCCIPTAL AREA ON FLOOR; ON PLAVI EXAMS: CPT CODE: [id number] CT HEAD/BRAIN W/O CONT 95472 (Continued) CC: Arthur Fuentes Technologist:Mabel Mcgowan RT(R)(CT); Harpreet Jung CTDI: DLP: Trnscb Date/Time: 08/22/2022 (1656) [email or web address] Orig Print D/T: S: 08/22/2022 (1657) PAGE 2 Signed Report- XR SHOULDER 2 + V [id number] 00:00:00 [facility] : 1940 Sex: M FAX: Arthur Ceja [phone] [place]: St: ADM Name: BRENNAN AHN [facility] Gadiel Montemayor : 1940 Age/S: 82/M [address] [place] [address] Unit #: [id number] Loc: [address] [address] Phys: Arthur Fuentes MD Acct: [id number] Dis Date: Status: ADM IN PHONE #: [phone] Exam Date: 08/22/2022 1535 FAX #: [phone] Reason: FALL ON RIGHT SIDE, C/O RIGHT SHOULDER PAIN EXAMS: CPT CODE: [id number] XR SHOULDER 2 + V RT 42522 PROCEDURE INFORMATION: Exam: XR Right Shoulder Exam date and time: 08/22/2022 3:36 PM Age: 82 years old Clinical indication: Pain; Shoulder; Right; Additional info: Fall on right side, C/O right shoulder pain TECHNIQUE: Imaging protocol: Radiologic exam of the right shoulder. Views: 2 or more views. AP INT/ EXT ROTATION, SCAPULAR Y COMPARISON: CR XR CHEST 1V 08/16/2022 5:01 AM FINDINGS: Bones/joints: There is normal alignment at the glenohumeral joint. There areno fractures or dislocations. The acromioclavicular joint and coracoclavicular spaces are intact. The visualized scapula and clavicle are unremarkable. Soft tissues: There are no radiopaque foreign bodies. Notes: If there is further concern, follow-up radiographs or MRI of the shoulder may be performed for complete assessment. IMPRESSION: No acute findings. at 1751 Reported and signed by: Ramakrishna Dhaliwal M.D. CC: Arthur Fuentes Technologist: RT Taryn(R) Trnscrd Date/Time/By: 08/22/2022 (1750) : By: [email or web address] Orig Print D/T: S: 08/22/2022 (1751) PAGE 1 Signed ReportUA RFLX MICR CULT IF [id number] 12:22:00* Test Item Value Reference Range Interpretation Comme nts UA COLOR (test code = COLU) YELLOW YEL/STRAW UA APPEARANCE (test code = APPU) CLEAR CLEAR UA GLUCOSE DIPSTICK (test co de = DGLUU) NEGATIVE NEGATIVE UA BILIRUBIN DIPSTICK (test code = BILU) NEGATIVE NEGATIVE UA KETONE DIPSTICK (test cod e = KETU) NEGATIVE NEGATIVE UA SPECIFIC GRAVITY (test co de = SGU) 1.011 1.005-1.030 N UA BLOOD DIPSTICK (test code = SUZETTE) NEGATIVE NEGATIVE UA PH DIPSTICK (test code = KEREN) 5.0 5.0-7.0 N UA PROTEIN DIPSTICK (test co de = PROU) NEGATIVE NEGATIVE UA UROBILINIOGEN DIPSTICK (t est code = URO) 0.2 mg/dL 0.2-1.0 UA NITRITE DIPSTICK (test co de = LADONNA) NEGATIVE NEGATIVE UA LEUKOCYTE ESTERASE DIPSTI CK (test code = LEUU) NEGATIVE NEGATIVE UA WBC (test code = WBCU) 0-3 WBC/HPF 0-3 UA RBC (test code = RBCU) 0-3 RBC/HPF 0-3 UA WBC NO REFLEX (test code = WBCUCL) 0-3 WBC/HPF 0-3 UA BACTERIA (test code = BACU) TRACE /HPF NONE SEEN UA SQUAMOUS CELLS (test code = SQU) 0-5 /HPF NONE SEEN UA HYALINE CAST (test code = HYALU) 6-10 /LPF NONE SEEN UA MUCUS (test code = MUCU) TRACE /LPF NONE SEEN Indication for culture: RiskForSepsis-no oth srcSpecimen Description: STRAIGHT CATHCBC W/AUTO [id number] 08:01:00* Test Item Value Reference Range Interpretation Comme nts WHITE BLOOD CELL (test code = WBC) 9.4 x10 3/uL 4.5-11.0 N RED BLOOD CELL (test code = RBC) 2.96 x10 6/uL 4.00-5.60 L HEMOGLOBIN (test code = HGB) 8.9 g/dL 12.5-16.9 L HEMATOCRIT (test code = HCT) 28.5 % 37.5-50.7 L MEAN CELL VOLUME (test code = MCV) 96.3 fL 81.0-99.0 N MEAN CELL HGB (test code = MCH) 30.1 pg 27.0-33.0 N MEAN CELL HGB CONCETRATION (test code = MCHC) 31.2 g/dL 33.0-37.0 L RED CELL DISTRIBUTION WIDTH CV (test code = RDW) 14.9 % 11.5-14.5 H RED CELL DISTRIBUTION WIDTH SD (test code = RDW-SD) 50.4 fL 37.0-54.0 N PLATELET COUNT (test code = PLT) 444 x10 3/uL 150-400 H MEAN PLATELET VOLUME (test c ode = MPV) 9.6 fL 7.0-9.0 H NEUTROPHIL % (test code = NT%) 73.3 % 56.0-77.0 N IMMATURE GRANULOCYTE % (test code = IG%) 1.0 % 0.0-2.0 N LYMPHOCYTE % (test code = LY%) 9.9 % 14.0-32.0 L MONOCYTE % (test code = MO%) 8.2 % 4.8-9.0 N EOSINOPHIL % (test code = EO%) 7.0 % 0.3-3.7 H BASOPHIL % (test code = BA%) 0.6 % 0.0-2.0 N NUCLEATED RBC % (test code = NRBC%) 0.0 % 0-0 N NEUTROPHIL # (test code = NT#) 6.91 x10 3/uL 2.0-7.6 N IMMATURE GRANULOCYTE # (test code = IG#) 0.09 x10 3/uL 0.00-0.03 H LYMPHOCYTE # (test code = LY#) 0.93 x10 3/uL 1.0-3.8 L MONOCYTE # (test code = MO#) 0.77 x10 3/uL 0.1-0.8 N EOSINOPHIL # (test code = EO#) 0.66 x10 3/uL 0.0-0.2 H BASOPHIL # (test code = BA#) 0.06 x10 3/uL 0.0-0.2 N NUCLEATED RBC # (test code = NRBC#) 0.00 x10 3/uL 0.0-0.1 N MANUAL DIFF REQUIRED (test c ode = MDIFF) NO BASIC METABOLIC [id number] 07:51:00* Test Item Value Reference Range Interpretation Comme nts SODIUM (test code = NA) 141 mEq/L 134-147 N POTASSIUM (test code = K) 4.2 mEq/L 3.4-5.0 N CHLORIDE (test code = CL) 104 mEq/L 100-108 N CARBON DIOXIDE (test code = CO2) 30 mEq/l 21-33 N ANION GAP (test code = GAP) 12 0-20 N GLUCOSE (test code = GLU) 98 mg/dL 70-110 N BLOOD UREA NITROGEN (test code = BUN) 33 mg/dL 7-18 H GLOMERULAR FILTRATION RATE (test code = GFR) 29.5 70-80 L The Glomerular Filtration Rate is a calculated parameterbased on serum Creatinine, patient age and sex. GFR valuesless than 60 mL/min/1.73 square meters are indicative ofChronic Kidney Disease. Values less than 15 mL/min/1.73square meters indicate Kidney failure. The calculation forGFR is based on the CKD-EPI (2020) calculation. This formulais race indifferent and is the recommended formula for GFRby the National Kidney Foundation for Adults.The GFR will not calculate if the sex is unknown or if thepatient's age is <18 years. CREATININE (test code = CREAT) 2.2 mg/dL 0.6-1.3 H CALCIUM (test code = CA) 9.2 mg/dL 8.0-10.5 N [id number] 07:51:00* Test Item Value Reference Range Interpretation Comme nts ALBUMIN (test code = ALB) 3.50 g/dL 3.4-5.0 N [id number] 07:51:00* Test Item Value Reference Range Interpretation Comme nts PREALBUMIN (test code = PREALB) 14.3 mg/dL 16.0-40.0 L CBC W/AUTO [id number] 07:31:00* Test Item Value Reference Range Interpretation Comme nts WHITE BLOOD CELL (test code = WBC) 8.7 x10 3/uL 4.5-11.0 N RED BLOOD CELL (test code = RBC) 3.02 x10 6/uL 4.00-5.60 L HEMOGLOBIN (test code = HGB) 9.1 g/dL 12.5-16.9 L HEMATOCRIT (test code = HCT) 28.5 % 37.5-50.7 L MEAN CELL VOLUME (test code = MCV) 94.4 fL 81.0-99.0 N MEAN CELL HGB (test code = MCH) 30.1 pg 27.0-33.0 N MEAN CELL HGB CONCETRATION (test code = MCHC) 31.9 g/dL 33.0-37.0 L RED CELL DISTRIBUTION WIDTH CV (test code = RDW) 14.3 % 11.5-14.5 N RED CELL DISTRIBUTION WIDTH SD (test code = RDW-SD) 47.1 fL 37.0-54.0 N PLATELET COUNT (test code = PLT) 293 x10 3/uL 150-400 N MEAN PLATELET VOLUME (test c ode = MPV) 9.7 fL 7.0-9.0 H NEUTROPHIL % (test code = NT%) 64.3 % 56.0-77.0 N IMMATURE GRANULOCYTE % (test code = IG%) 1.1 % 0.0-2.0 N LYMPHOCYTE % (test code = LY%) 14.4 % 14.0-32.0 N MONOCYTE % (test code = MO%) 12.6 % 4.8-9.0 H EOSINOPHIL % (test code = EO%) 6.9 % 0.3-3.7 H BASOPHIL % (test code = BA%) 0.7 % 0.0-2.0 N NUCLEATED RBC % (test code = NRBC%) 0.0 % 0-0 N NEUTROPHIL # (test code = NT#) 5.59 x10 3/uL 2.0-7.6 N IMMATURE GRANULOCYTE # (test code = IG#) 0.10 x10 3/uL 0.00-0.03 H LYMPHOCYTE # (test code = LY#) 1.25 x10 3/uL 1.0-3.8 N MONOCYTE # (test code = MO#) 1.10 x10 3/uL 0.1-0.8 H EOSINOPHIL # (test code = EO#) 0.60 x10 3/uL 0.0-0.2 H BASOPHIL # (test code = BA#) 0.06 x10 3/uL 0.0-0.2 N NUCLEATED RBC # (test code = NRBC#) 0.00 x10 3/uL 0.0-0.1 N MANUAL DIFF REQUIRED (test c ode = MDIFF) NO COMPREHENSIVE METABOLIC [id number] 07:24:00* Test Item Value Reference Range Interpretation Comme nts SODIUM (test code = NA) 138 mEq/L 134-147 N POTASSIUM (test code = K) 4.0 mEq/L 3.4-5.0 N CHLORIDE (test code = CL) 105 mEq/L 100-108 N CARBON DIOXIDE (test code = CO2) 25 mEq/l 21-33 N ANION GAP (test code = GAP) 12 0-20 N GLUCOSE (test code = GLU) 107 mg/dL 70-110 N BLOOD UREA NITROGEN (test code = BUN) 29 mg/dL 7-18 H GLOMERULAR FILTRATION RATE (test code = GFR) 35.2 70-80 L The Glomerular Filtration Rate is a calculated parameterbased on serum Creatinine, patient age and sex. GFR valuesless than 60 mL/min/1.73 square meters are indicative ofChronic Kidney Disease. Values less than 15 mL/min/1.73square meters indicate Kidney failure. The calculation forGFR is based on the CKD-EPI (2020) calculation. This formulais race indifferent and is the recommended formula for GFRby the National Kidney Foundation for Adults.The GFR will not calculate if the sex is unknown or if thepatient's age is <18 years. CREATININE (test code = CREAT) 1.9 mg/dL 0.6-1.3 H TOTAL PROTEIN (test code = PROT) 5.8 g/dL 6.4-8.2 L ALBUMIN (test code = ALB) 3.30 g/dL 3.4-5.0 L CALCIUM (test code = CA) 9.4 mg/dL 8.0-10.5 N BILIRUBIN TOTAL (test code = BILT) 0.60 mg/dL 0.0-1.0 N SGOT/AST (test code = AST) 20 IUnit/L 15-37 N SGPT/ALT (test code = ALT) < 7 IUnit/L 30-65 L ALKALINE PHOSPHATASE TOTAL (test code = ALKP) 69 IUnit/L 20-125 N [id number] 07:24:00* Test Item Value Reference Range Interpretation Comme nts MAGNESIUM (test code = MAG) 2.11 mg/dL 1.80-2.40 N COVID 19 INHOUSE [id number] 15:29:00* Test Item Value Reference Range Interpretation Comme nts COVID 19 INHOUSE AG (test code = [id number]) Negative Negative A negative resul t is presumptive and should be confirmedwith an FDA authorized molecular assay, if necessary forpatient management.A positive result does not rule out co-infections withother pathogens.This test detects both viable (live) and non-viable,SARS-CoV, and SARS-CoV-2. Test performance depends on theamount of virus (antigen) in the sample.This test has not been FDA cleared or approved; the test hasbeen authorized by FDA under an Emergency Use Authorization(EUA) for use by laboratories certified under the CLIA thatmeet the requirements to perform moderate, high or waivedcomplexity tests. BASIC METABOLIC [id number] 02:26:00* Test Item Value Reference Range Interpretation Comme nts SODIUM (test code = NA) 139 mEq/L 134-147 N POTASSIUM (test code = K) 4.8 mEq/L 3.4-5.0 N CHLORIDE (test code = CL) 107 mEq/L 100-108 N CARBON DIOXIDE (test code = CO2) 28 mEq/l 21-33 N ANION GAP (test code = GAP) 9 0-20 N GLUCOSE (test code = GLU) 107 mg/dL 70-110 N BLOOD UREA NITROGEN (test code = BUN) 37 mg/dL 7-18 H GLOMERULAR FILTRATION RATE (test code = GFR) 33.1 70-80 L The Glomerular Filtration Rate is a calculated parameterbased on serum Creatinine, patient age and sex. GFR valuesless than 60 mL/min/1.73 square meters are indicative ofChronic Kidney Disease. Values less than 15 mL/min/1.73square meters indicate Kidney failure. The calculation forGFR is based on the CKD-EPI (202) calculation. This formulais race indifferent and is the recommended formula for GFRby the National Kidney Foundation for Adults.The GFR will not calculate if the sex is unknown or if thepatient's age is <18 years. CREATININE (test code = CREAT) 2.0 mg/dL 0.6-1.3 H CALCIUM (test code = CA) 9.6 mg/dL 8.0-10.5 N [id number] 02:26:00* Test Item Value Reference Range Interpretation Comme nts MAGNESIUM (test code = MAG) 2.40 mg/dL 1.80-2.40 N CBC W/AUTO [id number] 02:10:00* Test Item Value Reference Range Interpretation Comme nts WHITE BLOOD CELL (test code = WBC) 8.9 x10 3/uL 4.5-11.0 N RED BLOOD CELL (test code = RBC) 3.06 x10 6/uL 4.00-5.60 L HEMOGLOBIN (test code = HGB) 9.3 g/dL 12.5-16.9 L HEMATOCRIT (test code = HCT) 28.5 % 37.5-50.7 L MEAN CELL VOLUME (test code = MCV) 93.1 fL 81.0-99.0 N MEAN CELL HGB (test code = MCH) 30.4 pg 27.0-33.0 N MEAN CELL HGB CONCETRATION (test code = MCHC) 32.6 g/dL 33.0-37.0 L RED CELL DISTRIBUTION WIDTH CV (test code = RDW) 13.9 % 11.5-14.5 N RED CELL DISTRIBUTION WIDTH SD (test code = RDW-SD) 46.1 fL 37.0-54.0 N PLATELET COUNT (test code = PLT) 231 x10 3/uL 150-400 N MEAN PLATELET VOLUME (test c ode = MPV) 9.3 fL 7.0-9.0 H NEUTROPHIL % (test code = NT%) 65.2 % 56.0-77.0 N IMMATURE GRANULOCYTE % (test code = IG%) 0.7 % 0.0-2.0 N LYMPHOCYTE % (test code = LY%) 17.2 % 14.0-32.0 N MONOCYTE % (test code = MO%) 11.1 % 4.8-9.0 H EOSINOPHIL % (test code = EO%) 5.2 % 0.3-3.7 H BASOPHIL % (test code = BA%) 0.6 % 0.0-2.0 N NUCLEATED RBC % (test code = NRBC%) 0.0 % 0-0 N NEUTROPHIL # (test code = NT#) 5.80 x10 3/uL 2.0-7.6 N IMMATURE GRANULOCYTE # (test code = IG#) 0.06 x10 3/uL 0.00-0.03 H LYMPHOCYTE # (test code = LY#) 1.53 x10 3/uL 1.0-3.8 N MONOCYTE # (test code = MO#) 0.99 x10 3/uL 0.1-0.8 H EOSINOPHIL # (test code = EO#) 0.46 x10 3/uL 0.0-0.2 H BASOPHIL # (test code = BA#) 0.05 x10 3/uL 0.0-0.2 N NUCLEATED RBC # (test code = NRBC#) 0.00 x10 3/uL 0.0-0.1 N MANUAL DIFF REQUIRED (test c ode = MDIFF) NO - DUP VEIN [id number] 00:00:00 [facility] 1940 Sex: M Name: BRENNAN [facility]N [facility] : 1940 Age/S: 82 / M [address] [place] [address] Unit #: [id number] Loc: [place] [address] Phys: Pamela Burnette Acct: [id number] Dis Date: Status: ADM IN PHONE #: [phone] Exam Date: 08/16/2022 1402 FAX #: [phone] Reason: R/O DVT EXAMS: CPT CODE: [id number] DUP VEIN ANCA 46119 PROCEDURE INFORMATION: Exam: US Duplex Lower ExtremityVeins, Bilateral Exam date and time: 08/16/2022 1:35 PM Age: 82 years old Clinical indication: Other: S/P cabg; Additional info: R/O dvt TECHNIQUE: Imaging protocol: Real-time duplex ultrasound of thebilateral extremities with 2-D guardado scale, color Doppler flow and spectral waveform analysis including responses to compression and other maneuvers (when performed) with image documentation. Completeexam focused on the lower extremity veins. COMPARISON: US DUP VEIN ANCA 08/09/2022 5:33 PM FINDINGS: Right deep veins: Unremarkable. The common femoral, femoral, proximal profunda femoral and popliteal veins are patent without thrombus. Normal Doppler waveforms. Normal compressibility and/or augmentation response. Right superficial veins: Saphenofemoral junction is patent without thrombus. Left deepveins: Unremarkable. The common femoral, femoral, proximal profunda femoral and popliteal veins arepatent without thrombus. Normal Doppler waveforms. Normal compressibility and/or augmentation response. Left superficial veins: Saphenofemoral junction is patent without thrombus. Soft tissues: Unrema rkable. IMPRESSION: No evidence of deep vein thrombosis. at 1501 Reported and signed by: Aniket Loredo M.D. CC: BUSINESS INFO CONSULTANT; Salazar Hurd MD; Pamela PNIO Technologist: Erica De Guzman RDMS(Facundo)(BR) Trnscb Date/Time: 08/16/2022 (150) Miriam Orig Print D/T: S: 08/16/2022 (340) Probe: PAGE 1 Signed Report- XR CHEST 1 [id number] 00:00:[address] [facility] BR[facility] GARRETT : 1940 Sex: M FAX: BUSINESS INFO CONSULTANT, [place]: St: ADM FAX: Salazar Delarosa [phone] FAX: Pamela Camacho [phone] Name: BRENNAN AHN [facility] : 1940 Age/S: 82/M [address] [place] [address] Bl Unit #: [id number] Loc: [address] [place] [address] Phys: Pamela Burnette Acct: [id number] Dis Date: Status: ADM IN PHONE #: [phone] Exam Date: 08/16/202255 FAX #: [phone] Reason:Cardiac Surgery Post Op EXAMS: CPT CODE: [id number] XR CHEST 1 V 71406 PROCEDURE INFORMATION: Exam: XR Chest Exam date and time: 08/16/2022 5:01 AM Age: 82 years old Clinical indication: Other: Cardiacsurgery post op TECHNIQUE: Imaging protocol: Radiologic exam of the chest. Views: 1 view. COMPARISON: CR XR CHEST 1V 08/15/2022 4:54 AM FINDINGS: Lungs: Right lung is grossly clear. Pleural spaces: Unchanged small left pleural effusion with left basilar airspace disease. No pneumothorax. No pneumothorax. Heart/Mediastinum: Unchanged cardiomediastinal silhouette. Vasculature: Aortic arch calcifications. Bones/joints: Median sternotomy changes. IMPRESSION: Unchanged small left pleural effusion with left basilar airspace disease. at 1038 Reported and signed by: Sha Gordon M.D. CC: BUSINESS INFO CONSULTANT; Salazar Hurd MD; Pamela PINO Technologist: RT Madiha(R) Trnscrd Date/Time/By: 08/16/2022 (9807) : By: [email or web address] Orig Print D/T: S: 08/16/2022 (6138) PAGE 1 Signed ReportBASIC METABOLIC [id number] 02:25:00* Test Item Value Reference Range Interpretation Comme nts SODIUM (test code = NA) 138 mEq/L 134-147 N POTASSIUM (test code = K) 4.1 mEq/L 3.4-5.0 N CHLORIDE (test code = CL) 109 mEq/L 100-108 H CARBON DIOXIDE (test code = CO2) 26 mEq/l 21-33 N ANION GAP (test code = GAP) 7 0-20 N GLUCOSE (test code = GLU) 109 mg/dL 70-110 N BLOOD UREA NITROGEN (test code = BUN) 36 mg/dL 7-18 H GLOMERULAR FILTRATION RATE (test code = GFR) 35.2 70-80 L The Glomerular Filtration Rate is a calculated parameterbased on serum Creatinine, patient age and sex. GFR valuesless than 60 mL/min/1.73 square meters are indicative ofChronic Kidney Disease. Values less than 15 mL/min/1.73square meters indicate Kidney failure. The calculation forGFR is based on the CKD-EPI (2020) calculation. This formulais race indifferent and is the recommended formula for GFRby the National Kidney Foundation for Adults.The GFR will not calculate if the sex is unknown or if thepatient's age is <18 years. CREATININE (test code = CREAT) 1.9 mg/dL 0.6-1.3 H CALCIUM (test code = CA) 9.2 mg/dL 8.0-10.5 N HEPATIC FUNCTION [id number] 02:25:00* Test Item Value Reference Range Interpretation Comme nts TOTAL PROTEIN (test code = PROT) 6.0 g/dL 6.4-8.2 L ALBUMIN (test code = ALB) 3.40 g/dL 3.4-5.0 N BILIRUBIN TOTAL (test code = BILT) 0.60 mg/dL 0.0-1.0 N BILIRUBIN DIRECT (test code = BILD) 0.20 MG/DL 0.0-0.30 BILIRUBIN INDIRECT (test cod e = BILIND) 0.40 MG/DL SGOT/AST (test code = AST) 21 IUnit/L 15-37 N SGPT/ALT (test code = ALT) < 7 IUnit/L 30-65 L ALKALINE PHOSPHATASE TOTAL ( test code = ALKP) 68 IUnit/L 20-125 N [id number] 02:25:00* Test Item Value Reference Range Interpretation Comme nts MAGNESIUM (test code = MAG) 2.32 mg/dL 1.80-2.40 N CBC W/AUTO [id number] 02:06:00* Test Item Value Reference Range Interpretation Comme nts WHITE BLOOD CELL (test code = WBC) 10.6 x10 3/uL 4.5-11.0 N RED BLOOD CELL (test code = RBC) 3.02 x10 6/uL 4.00-5.60 L HEMOGLOBIN (test code = HGB) 9.2 g/dL 12.5-16.9 L HEMATOCRIT (test code = HCT) 27.6 % 37.5-50.7 L MEAN CELL VOLUME (test code = MCV) 91.4 fL 81.0-99.0 N MEAN CELL HGB (test code = MCH) 30.5 pg 27.0-33.0 N MEAN CELL HGB CONCETRATION (test code = MCHC) 33.3 g/dL 33.0-37.0 N RED CELL DISTRIBUTION WIDTH CV (test code = RDW) 13.7 % 11.5-14.5 N RED CELL DISTRIBUTION WIDTH SD (test code = RDW-SD) 45.2 fL 37.0-54.0 N PLATELET COUNT (test code = PLT) 198 x10 3/uL 150-400 N MEAN PLATELET VOLUME (test c ode = MPV) 9.6 fL 7.0-9.0 H NEUTROPHIL % (test code = NT%) 71.7 % 56.0-77.0 N IMMATURE GRANULOCYTE % (test code = IG%) 0.6 % 0.0-2.0 N LYMPHOCYTE % (test code = LY%) 13.1 % 14.0-32.0 L MONOCYTE % (test code = MO%) 11.7 % 4.8-9.0 H EOSINOPHIL % (test code = EO%) 2.4 % 0.3-3.7 N BASOPHIL % (test code = BA%) 0.5 % 0.0-2.0 N NUCLEATED RBC % (test code = NRBC%) 0.0 % 0-0 N NEUTROPHIL # (test code = NT#) 7.61 x10 3/uL 2.0-7.6 H IMMATURE GRANULOCYTE # (test code = IG#) 0.06 x10 3/uL 0.00-0.03 H LYMPHOCYTE # (test code = LY#) 1.39 x10 3/uL 1.0-3.8 N MONOCYTE # (test code = MO#) 1.24 x10 3/uL 0.1-0.8 H EOSINOPHIL # (test code = EO#) 0.25 x10 3/uL 0.0-0.2 H BASOPHIL # (test code = BA#) 0.05 x10 3/uL 0.0-0.2 N NUCLEATED RBC # (test code = NRBC#) 0.00 x10 3/uL 0.0-0.1 N MANUAL DIFF REQUIRED (test c ode = MDIFF) NO - US SOFT TISSUE [id number] 00:00:00 [facility]N GERRY : 1940 Sex: M Name: MARITZABRENNAN GERRY [facility] : 1940 Age/S: 82 / M [address] [place] [address] Bl Unit #: [id number] Loc: [place] [address] Phys: Kel Agustin MD Acct: [id number] Dis Date: Status: ADM IN PHONE #: [phone] Exam Date: 08/15/2022 1314 FAX #: [phone] Reason: REEVAL ANCA PLEURAL EFF EXAMS: CPT CODE: [id number] US SOFT TISSUE TORSO [id number] PROCEDURE INFORMATION: Exam: US Chest, Pleural Space Exam date and time: 08/15/2022 12:26 [...] and signed by: Alfreda Joseph M.D. CC: BUSINESS INFO CONSULTANT; Salazar Hurd MD; Kel Agustin MD Technologist: Kavita Vera [facility] Date/Time: 08/15/2022 (766) [email or web address] Orig Print D/T: S: 08/15/2022 (341) Probe: PAGE 1 Signed Report- XR CHEST 1 [id number] 00:00:00[facility] : 1940 Sex: M FAX: BUSINESS INFO CONSULTANT, [place]: GC St: ADM FAX: Salazar Delarosa [phone] FAX: Pamela Camacho [phone] Name: BRENNAN AHN [facility] : 1940 Age/S: 82/M [address] [place] [address] Unit #: [id number] Loc: G.9632 [place] [address] Phys: Pamela Burnette Acct: [id number] Dis Date: Status: ADM IN PHONE #: [phone] Exam Date: 08/15/2022 0500 FAX #: [phone] Reason: Cardiac Surgery Post Op EXAMS: CPT CODE: [id number] XR CHEST 1 V 73982 PROCEDURE INFORMATION: Exam: XR Chest Exam date and time: 08/15/2022 4:54 AM Age: 82 years old Clinical indication: Other: Cardiac surgery post op TECHNIQUE: Imaging protocol: Radiologic exam of the chest. Views: 1 view. COMPARISON: CR XR CHEST 1V 08/14/2022 4:58 AM FINDINGS: Lungs: Retrocardiac airspace disease. Pleural spaces: No pleural effusion. Heart/Mediastinum: Cardiomegaly with minimal central venous congestion. Vasculature: There is atherosclerotic calcification of the aorta. Bones/joints: Prior sternotomy changes. Cervical hardware is partially seen. IMPRESSION: Cardiomegaly with minimal central venous congestion. at 0845 Reported and signed by: Jaylyn Ledesma D.O. CC: BUSINESS INFO CONSULTANT; Salazar Hurd MD; Pamela Burnette PATechnologist: RT Livia(R) Trnscrd Date/Time/By: 08/15/2022 (0845) : By: [email or web address] [facility] Print D/T: S: 08/15/2022 (0846) PAGE 1 Signed [id number] 14:20:00* Test Item Value Reference Range Interpretation Comme nts SURGICAL (test code = SR) R UN DATE: 08/14/22 [place] - LAB PAGE 1 RUN TIME: 1420 Specimen Inquiry RUN USER: INTERFACE P ATIENT: BRENNAN AHN LOC: MIRZA U #: [id number] AGE/SX: 82/M ROOM: [facility] RE08/09/22REG DR: Salazar Hurd : 44 BED: 1 DIS: STATUS: ADM IN TLOC: SPEC #: [id number] RECD: 08/11/22-6 STATUS: KRISTINEJenni REQ #: [id number] PARMINDER: 08/10/22- SUBM DR: Salazar Hurd MD ENTERED: 08/11/22-1037 SP TYPE: SURGICAL OTHR DR: No Primary or Family Physician BUSINESS INFO CONSULTANT, Logan Calix MD, Wajid DO Mouchli, Anas MD Quaddoura, Amer A MDORDERED: 82929, ANATOMIC SPEC COPIES TO: No Primary or Family Physician BUSINESS INFO CONSULTANT, Logan Calix MD [address] [id number] Salazar Hurd MD [address] [place] [address]. [address] [place] [address] Devin Fox DO [address] [place] [address], [place] [address] Reginaldo Brown MD [address] [place] [address] Breezy Nance MD 5[address] [facility] [address] [place] [address] PROCEDURES: 98636 (08/11/22-1037) TISSUES: A. ATRIUM - LEFT ATRIAL APPENDAGE CONTINUED ON NEXT PAGE R UN DATE: 08/14/22 [place] - LAB PAGE 2 RUN TIME: 1420 Specimen Inquiry RUN USER: INTERFACE S PEC #: [id number] PATIENT: BRENNAN AHN #[id number] (Continued) CLINICAL HISTORY SAME FINAL DIAGNOSIS Heart, left atrial appendage, wedge biopsy: Myocardium with focal mild ischemic change. GROSS DESCRIPTION Received in formalin labeled "left atrial appendage "is a wedge biopsy of heart, 3.4 x 2.8x 2.7 cm, sectioned and entirely submitted (A)-(B). Technical component performed at [facility],[address] [place] [address], [place] [address] Unless gross only, the diagnosis is based [...] INFORMATION CAD -- Signed SIGNATURE ON FILE Indra Clementsgiancarlo 08/14/22 1420 END OF REPORT BASIC METABOLIC [id number] 04:11:00* Test Item Value Reference Range Interpretation Comme nts SODIUM (test code = NA) 137 mEq/L 134-147 N POTASSIUM (test code = K) 4.1 mEq/L 3.4-5.0 N CHLORIDE (test code = CL) 104 mEq/L 100-108 N CARBON DIOXIDE (test code = CO2) 27 mEq/l 21-33 N ANION GAP (test code = GAP) 10 0-20 N GLUCOSE (test code = GLU) 107 mg/dL 70-110 N BLOOD UREA NITROGEN (test code = BUN) 33 mg/dL 7-18 H GLOMERULAR FILTRATION RATE (test code = GFR) 33.1 70-80 L The Glomerular Filtration Rate is a calculated parameterbased on serum Creatinine, patient age and sex. GFR valuesless than 60 mL/min/1.73 square meters are indicative ofChronic Kidney Disease. Values less than 15 mL/min/1.73square meters indicate Kidney failure. The calculation forGFR is based on the CKD-EPI (202) calculation. This formulais race indifferent and is the recommended formula for GFRby the National Kidney Foundation for Adults.The GFR will not calculate if the sex is unknown or if thepatient's age is <18 years. CREATININE (test code = CREAT) 2.0 mg/dL 0.6-1.3 H CALCIUM (test code = CA) 8.7 mg/dL 8.0-10.5 N [id number] 04:11:00* Test Item Value Reference Range Interpretation Comme nts MAGNESIUM (test code = MAG) 2.49 mg/dL 1.80-2.40 H CBC W/AUTO [id number] 04:07:00* Test Item Value Reference Range Interpretation Comme nts WHITE BLOOD CELL (test code = WBC) 9.4 x10 3/uL 4.5-11.0 N RED BLOOD CELL (test code = RBC) 2.85 x10 6/uL 4.00-5.60 L HEMOGLOBIN (test code = HGB) 8.5 g/dL 12.5-16.9 L HEMATOCRIT (test code = HCT) 26.1 % 37.5-50.7 L MEAN CELL VOLUME (test code = MCV) 91.6 fL 81.0-99.0 N MEAN CELL HGB (test code = MCH) 29.8 pg 27.0-33.0 N MEAN CELL HGB CONCETRATION (test code = MCHC) 32.6 g/dL 33.0-37.0 L RED CELL DISTRIBUTION WIDTH CV (test code = RDW) 13.3 % 11.5-14.5 N RED CELL DISTRIBUTION WIDTH SD (test code = RDW-SD) 44.2 fL 37.0-54.0 N PLATELET COUNT (test code = PLT) 135 x10 3/uL 150-400 L MEAN PLATELET VOLUME (test c ode = MPV) 10.8 fL 7.0-9.0 H NEUTROPHIL % (test code = NT%) 76.9 % 56.0-77.0 N IMMATURE GRANULOCYTE % (test code = IG%) 0.4 % 0.0-2.0 N LYMPHOCYTE % (test code = LY%) 11.1 % 14.0-32.0 L MONOCYTE % (test code = MO%) 9.7 % 4.8-9.0 H EOSINOPHIL % (test code = EO%) 1.6 % 0.3-3.7 N BASOPHIL % (test code = BA%) 0.3 % 0.0-2.0 N NUCLEATED RBC % (test code = NRBC%) 0.0 % 0-0 N NEUTROPHIL # (test code = NT#) 7.22 x10 3/uL 2.0-7.6 N IMMATURE GRANULOCYTE # (test code = IG#) 0.04 x10 3/uL 0.00-0.03 H LYMPHOCYTE # (test code = LY#) 1.04 x10 3/uL 1.0-3.8 N MONOCYTE # (test code = MO#) 0.91 x10 3/uL 0.1-0.8 H EOSINOPHIL # (test code = EO#) 0.15 x10 3/uL 0.0-0.2 N BASOPHIL # (test code = BA#) 0.03 x10 3/uL 0.0-0.2 N NUCLEATED RBC # (test code = NRBC#) 0.00 x10 3/uL 0.0-0.1 N MANUAL DIFF REQUIRED (test c ode = MDIFF) NO - XR CHEST 1 [id number] 00:00:[address] [facility] [facility] : 1940 Sex: M FAX: BUSINESS INFO CONSULTANT, [place]: St: ADM FAX: Salazar Delarosa [phone] FAX: Pamela Camacho [phone] Name: BRENNAN AHN [facility] : 1940 Age/S: 82/M [address] [place] [address] Blvd Unit #: [id number] Loc: Doc2 [place] [address] Phys: Pamela Burnette Acct: [id number] Dis Date: Status: ADM IN PHONE #: [phone] Exam Date: 08/14/2022647 FAX #: [phone] Reason: Cardiac Surgery Post Op EXAMS: CPT CODE: [id number] XR CHEST 1 V 56582 PROCEDURE INFORMATION: Exam: XR Chest Exam date and time: 08/14/2022 4:58 AM Age: 82 years old Clinical indication: Other: Cardiac surgery post op TECHNIQUE: Imaging protocol: Radiologic exam of the chest. Views: 1 view. COMPARISON: CR XR CHEST 1V 08/13/2022 5:58 AM FINDINGS: Tubes, catheters and devices: Stable right IJ centralline. Lungs: The bilateral lung opacities are grossly stable. Pleural spaces: Stable left pleural effusion. Heart/Mediastinum: The enlarged heart size is stable. Bones/joints: Stable. Median sternotomy wires. Partially imaged postoperative change in the cervical spine. IMPRESSION: Grossly stable exam. at 0809 Reported and signed by: Morteza Allen M.D. CC: BUSINESS INFO CONSULTANT; Salazar Hurd MD; Pamela PINO Technologist: RT Madiha(R) Trnscrd Date/Time/By: 08/14/2022 (808) : By: [email or web address] Orig Print D/T: S: 08/14/2022 (09) PAGE 1 Signed ReportGLUCOSE [id number] 20:07:00* Test Item Value Reference Range Interpretation Comme nts GLUCOSE BEDSIDE (test code = GLUBED) 93 MG/DL 70-110 N Performed by cer homa slice plug cutter operator at [facility] BASIC METABOLIC [id number] 04:39:00* Test Item Value Reference Range Interpretation Comme nts SODIUM (test code = NA) 135 mEq/L 134-147 N POTASSIUM (test code = K) 3.9 mEq/L 3.4-5.0 N CHLORIDE (test code = CL) 102 mEq/L 100-108 N CARBON DIOXIDE (test code = CO2) 26 mEq/l 21-33 N ANION GAP (test code = GAP) 11 0-20 N GLUCOSE (test code = GLU) 115 mg/dL 70-110 H BLOOD UREA NITROGEN (test code = BUN) 34 mg/dL 7-18 H GLOMERULAR FILTRATION RATE (test code = GFR) 28.0 70-80 L The Glomerular Filtration Rate is a calculated parameterbased on serum Creatinine, patient age and sex. GFR valuesless than 60 mL/min/1.73 square meters are indicative ofChronic Kidney Disease. Values less than 15 mL/min/1.73square meters indicate Kidney failure. The calculation forGFR is based on the CKD-EPI (202) calculation. This formulais race indifferent and is the recommended formula for GFRby the National Kidney Foundation for Adults.The GFR will not calculate if the sex is unknown or if thepatient's age is <18 years. CREATININE (test code = CREAT) 2.3 mg/dL 0.6-1.3 H CALCIUM (test code = CA) 8.6 mg/dL 8.0-10.5 N COMMENTS: POD #1HEPATIC FUNCTION [id number] 04:39:00* Test Item Value Reference Range Interpretation Comme nts TOTAL PROTEIN (test code = PROT) 5.5 g/dL 6.4-8.2 L ALBUMIN (test code = ALB) 3.40 g/dL 3.4-5.0 N BILIRUBIN TOTAL (test code = BILT) 0.60 mg/dL 0.0-1.0 BILIRUBIN DIRECT (test code = BILD) 0.30 MG/DL 0.0-0.30 BILIRUBIN INDIRECT (test cod e = BILIND) 0.30 MG/DL SGOT/AST (test code = AST) 22 IUnit/L 15-37 N SGPT/ALT (test code = ALT) < 7 IUnit/L 30-65 L ALKALINE PHOSPHATASE TOTAL ( test code = ALKP) 61 IUnit/L 20-125 N COMMENTS: POD #[id number] 04:39:00* Test Item Value Reference Range Interpretation Comme nts MAGNESIUM (test code = MAG) 2.33 mg/dL 1.80-2.40 N COMMENTS: POD #1CBC W/AUTO [id number] 04:37:00* Test Item Value Reference Range Interpretation Comme nts WHITE BLOOD CELL (test code = WBC) 11.1 x10 3/uL 4.5-11.0 H RED BLOOD CELL (test code = RBC) 3.00 x10 6/uL 4.00-5.60 L HEMOGLOBIN (test code = HGB) 8.9 g/dL 12.5-16.9 L HEMATOCRIT (test code = HCT) 27.3 % 37.5-50.7 L MEAN CELL VOLUME (test code = MCV) 91.0 fL 81.0-99.0 N MEAN CELL HGB (test code = MCH) 29.7 pg 27.0-33.0 N MEAN CELL HGB CONCETRATION (test code = MCHC) 32.6 g/dL 33.0-37.0 L RED CELL DISTRIBUTION WIDTH CV (test code = RDW) 13.4 % 11.5-14.5 N RED CELL DISTRIBUTION WIDTH SD (test code = RDW-SD) 45.0 fL 37.0-54.0 N PLATELET COUNT (test code = PLT) 111 x10 3/uL 150-400 L MEAN PLATELET VOLUME (test c ode = MPV) 10.6 fL 7.0-9.0 H NEUTROPHIL % (test code = NT%) 78.5 % 56.0-77.0 H IMMATURE GRANULOCYTE % (test code = IG%) 0.5 % 0.0-2.0 N LYMPHOCYTE % (test code = LY%) 10.6 % 14.0-32.0 L MONOCYTE % (test code = MO%) 9.7 % 4.8-9.0 H EOSINOPHIL % (test code = EO%) 0.5 % 0.3-3.7 N BASOPHIL % (test code = BA%) 0.2 % 0.0-2.0 N NUCLEATED RBC % (test code = NRBC%) 0.0 % 0-0 N NEUTROPHIL # (test code = NT#) 8.69 x10 3/uL 2.0-7.6 H IMMATURE GRANULOCYTE # (test code = IG#) 0.06 x10 3/uL 0.00-0.03 H LYMPHOCYTE # (test code = LY#) 1.18 x10 3/uL 1.0-3.8 N MONOCYTE # (test code = MO#) 1.08 x10 3/uL 0.1-0.8 H EOSINOPHIL # (test code = EO#) 0.05 x10 3/uL 0.0-0.2 N BASOPHIL # (test code = BA#) 0.02 x10 3/uL 0.0-0.2 N NUCLEATED RBC # (test code = NRBC#) 0.00 x10 3/uL 0.0-0.1 N MANUAL DIFF REQUIRED (test c ode = MDIFF) NO - US SOFT TISSUE [id number] 00:00:00 [facility] : 1940 Sex: M Name: AHNBRENNAN GANDARA GERRY [facility] : 1940 Age/S: 82 / M [address] [place] [address] Bl Unit #: [id number] Loc: [place] [address] Phys: Breezy Nance MD Acct: [id number] Dis Date: Status: ADM IN PHONE #: [phone] Exam Date: 08/13/2022 1618 FAX #: [phone] Reason: LEFT PLEURAL EFFUSION EXAMS: CPT CODE: [id number] US SOFT TISSUE TORSO 31459 PROCEDURE INFORMATION: Exam: US Chest, Pleural Space Exam date and time: 08/13/2022 3:41 PM Age: 82 years old Clinical indication: Screening exam; Other screening; Patient HX: Eval pleural eff. ; Additional info: Left pleural effusion TECHNIQUE: Imaging protocol: Real time ultrasound of the chest was performed with image documentation. Exam focused on the pleural space. COMPARISON: CT CHEST W/O CONTRAST 08/09/2022 5:11 PM FINDINGS: Pleural spaces: There is moderate bilateral pleural effusions. IMPRESSION: Moderate bilateral pleural effusions, with basilar atelectasis. at 2026 Reported and signed by: Tomy Marion M.D. CC: BUSINESS INFO CONSULTANT; Shirley Hurd MD; Breezy Nance MD Technologist: Beatrice Moreno RDMS(AB) Trnscb Date/Time: 08/13/2022 (2026) [email or web address] Orig Print D/T: S: 08/13/2022 (2026) Probe: PAGE 1 Signed Report- XR CHEST 1 [id number] 00:00:[address] [facility] : 1940 Sex: M FAX: BUSINESS INFO CONSULTANT, [place]: St: ADM FAX: Salazar Delarosa [phone] FAX: Pamela Camacho [phone] Name: BRENNAN AHN [facility] Gadiel Montemayor : 1940 Age/S: 82/M [address] [place] [address] Unit #: [id number] Loc: [address] [place] [address] Phys: Pamela Burnette Acct: [id number] Dis Date: Status: ADM IN PHONE #: [phone] Exam Date: 08/13/2022725 FAX #: [phone] Reason:Cardiac Surgery Post Op EXAMS: CPT CODE: [id number] XR CHEST 1 V 14004 PROCEDURE INFORMATION: Exam: XR Chest Exam date and time: 08/13/2022 5:58 AM Age: 82 years old Clinical indication: Other: Cardiacsurgery post op TECHNIQUE: Imaging protocol: Radiologic exam of the chest. Views: 1 view. COMPARISON: CR XR CHEST 1V 08/12/2022 6:25 AM FINDINGS: Tubes, catheters and devices: Stable right jugular catheter over the SVC. Stable mediastinal drain at midline. Lungs: Residual dense opacification of the left lung base and medial right base. Mild improvement on the left. Pulmonary vasculature normal. Lungs otherwise clear. Pleural spaces: Small volume fluid suggested at the left costophrenic angle. Hea rt/Mediastinum: Stable moderate cardiomegaly. Vasculature: Mild aortic calcification. Diaphragm: The left hemidiaphragm is still completely obscured. Bones/joints: Sternotomy. No significant skeletalabnormality. IMPRESSION: 1. Residual dense opacification of each lung base, primarily on the left side. 2. Slight improvement of left basilar opacity since the most recent exam. 3. Probable small left pleural effusion. 4. Stable moderate cardiomegaly without significant vascular congestion. at 0754 Reported and signed by: Jose David Lazar M.D. CC: BUSINESS INFO CONSULTANT; Salazar Hurd MD; Pamela PINO Technologist: Silvestre López; Katie Ball, RT(R) Trnsaint elizabeth edgewood Date/Time/By: 08/13/2022 (0754) : By: [email or web address] Orig Print D/T:S: 08/13/2022 (075) PAGE 1 Signed ReportGLUCOSE [id number] 14:55:00* Test Item Value Reference Range Interpretation Comme nts GLUCOSE BEDSIDE (test code = GLUBED) 83 MG/DL 70-110 N Performed by cer tified slice plug cutter operator at [facility] RENAL FUNCTION [id number] 11:35:00* Test Item Value Reference Range Interpretation Comme nts SODIUM (test code = NA) 136 mEq/L 134-147 N POTASSIUM (test code = K) 4.0 mEq/L 3.4-5.0 N CHLORIDE (test code = CL) 103 mEq/L 100-108 N CARBON DIOXIDE (test code = CO2) 24 mEq/l 21-33 N ANION GAP (test code = GAP) 13 0-20 N GLUCOSE (test code = GLU) 187 mg/dL 70-110 H BLOOD UREA NITROGEN (test code = BUN) 29 mg/dL 7-18 H GLOMERULAR FILTRATION RATE (test code = GFR) 29.5 70-80 L The Glomerular Filtration Rate is a calculated parameterbased on serum Creatinine, patient age and sex. GFR valuesless than 60 mL/min/1.73 square meters are indicative ofChronic Kidney Disease. Values less than 15 mL/min/1.73square meters indicate Kidney failure. The calculation forGFR is based on the CKD-EPI (2020) calculation. This formulais race indifferent and is the recommended formula for GFRby the National Kidney Foundation for Adults.The GFR will not calculate if the sex is unknown or if thepatient's age is <18 years. CREATININE (test code = CREAT) 2.2 mg/dL 0.6-1.3 H ALBUMIN (test code = ALB) 3.90 g/dL 3.4-5.0 N CALCIUM (test code = CA) 8.7 mg/dL 8.0-10.5 N PHOSPHOROUS (test code = PHOS) 3.1 MG/DL 2.5-4.9 N GLUCOSE [id number] 09:50:00* Test Item Value Reference Range Interpretation Comme nts GLUCOSE BEDSIDE (test code = GLUBED) 114 MG/DL 70-110 H Performed by cer tified slice plug cutter operator at [facility] POC ARTERIAL BLOOD [id number] 03:45:00* Test Item Value Reference Range Interpretation Comme nts POC ARTERIAL BLOOD GAS PH (t est code = POCPHA) 7.372 7.35-7.45 N POC ARTERIAL BLOOD GAS PCO2 (test code = DDUGVG3S) 41.6 mmHg 35.0-45 N POC TCO2 ARTERIAL (test code = POCTCO2) 25.4 POC ARTERIAL BLOOD GAS PO2 ( test code = FSYMS9Z) 128.6 mmHg 80-100.0 H POC HCO3 ARTERIAL (test code = XKDRBF3K) 24.2 MMOL/L 22.0-26.0 N POC BASE EXCESS (test code = POCBEA) -1.1 MMOL/L -4.0-4.0 N POC O2 SATURATION (test code = POCO2S) 98.8 % 90-100 N FIO2 (test code = FIO2A) 45 % PaO2/FiO2 (test code = HVY5OHV2) 285.77 mm/Hg ABG DELIVERY (test code = SOLOMON) BiPAP ABG VENT RESP RATE (test cod e = RRA) 14 /MIN ABG SITE (test code = SITEA) Art Line BASIC METABOLIC [id number] 03:45:00* Test Item Value Reference Range Interpretation Comme nts SODIUM (test code = NA/ABG) 139 mmol/L 134-147 N POTASSIUM (test code = K/ABG) 4.0 mmol/L 3.4-5.0 N CHLORIDE (test code = CL/ABG) 104 mmol/L 100-108 N CREATININE ABG (test code = CREAABG) 1.7 mg/dL 0.8-1.3 H POC IONIZED CALCIUM (test co de = POCCA) 1.20 MMOL/L 1.12-1.32 N POC GLUCOSE (test code = POCGLU) 146 MG/DL 70-110 H HEMOGLOBIN [id number] 03:45:00* Test Item Value Reference Range Interpretation Comme nts HEMOGLOBIN ABG (test code = HGB/ABG) 9.9 G/DL 12.5-16.9 L [id number] 03:45:00* Test Item Value Reference Range Interpretation Comme nts HEMATOCRIT (test code = HCT/ABG) 29 % 37.5-50.7 L POC LACTIC [id number] 03:45:00* Test Item Value Reference Range Interpretation Comme nts POC LACTIC ACID (test code = POCLAC) 0.8 mmol/l 0.9-1.7 L BASIC METABOLIC [id number] 02:21:00* Test Item Value Reference Range Interpretation Comme nts SODIUM (test code = NA) 138 mEq/L 134-147 N POTASSIUM (test code = K) 3.6 mEq/L 3.4-5.0 N CHLORIDE (test code = CL) 105 mEq/L 100-108 N CARBON DIOXIDE (test code = CO2) 25 mEq/l 21-33 N ANION GAP (test code = GAP) 12 0-20 N GLUCOSE (test code = GLU) 206 mg/dL 70-110 H BLOOD UREA NITROGEN (test code = BUN) 26 mg/dL 7-18 H GLOMERULAR FILTRATION RATE (test code = GFR) 35.2 70-80 L The Glomerular Filtration Rate is a calculated parameterbased on serum Creatinine, patient age and sex. GFR valuesless than 60 mL/min/1.73 square meters are indicative ofChronic Kidney Disease. Values less than 15 mL/min/1.73square meters indicate Kidney failure. The calculation forGFR is based on the CKD-EPI (202) calculation. This formulais race indifferent and is the recommended formula for GFRby the National Kidney Foundation for Adults.The GFR will not calculate if the sex is unknown or if thepatient's age is <18 years. CREATININE (test code = CREAT) 1.9 mg/dL 0.6-1.3 H CALCIUM (test code = CA) 8.6 mg/dL 8.0-10.5 N COMMENTS: POD #1HEPATIC FUNCTION [id number] 02:21:00* Test Item Value Reference Range Interpretation Comme nts TOTAL PROTEIN (test code = PROT) 5.7 g/dL 6.4-8.2 L ALBUMIN (test code = ALB) 3.80 g/dL 3.4-5.0 N BILIRUBIN TOTAL (test code = BILT) 0.30 mg/dL 0.0-1.0 BILIRUBIN DIRECT (test code = BILD) 0.20 MG/DL 0.0-0.30 BILIRUBIN INDIRECT (test cod e = BILIND) 0.10 MG/DL SGOT/AST (test code = AST) 29 IUnit/L 15-37 N SGPT/ALT (test code = ALT) < 7 IUnit/L 30-65 L ALKALINE PHOSPHATASE TOTAL ( test code = ALKP) 57 IUnit/L 20-125 N COMMENTS: POD #[id number] 02:21:00* Test Item Value Reference Range Interpretation Comme nts PHOSPHOROUS (test code = PHOS) 3.1 MG/DL 2.5-4.9 N COMMENTS: POD #[id number] 02:21:00* Test Item Value Reference Range Interpretation Comme nts MAGNESIUM (test code = MAG) 2.16 mg/dL 1.80-2.40 N COMMENTS: POD #1CALCIUM [id number] 02:00:00* Test Item Value Reference Range Interpretation Comme nts CALCIUM IONIZED (test code = ALANNA) 1.16 MMOL/L 1.09-1.30 N CBC W/AUTO [id number] 01:55:00* Test Item Value Reference Range Interpretation Comme nts WHITE BLOOD CELL (test code = WBC) 12.2 x10 3/uL 4.5-11.0 H RED BLOOD CELL (test code = RBC) 3.06 x10 6/uL 4.00-5.60 L HEMOGLOBIN (test code = HGB) 9.3 g/dL 12.5-16.9 L HEMATOCRIT (test code = HCT) 28.5 % 37.5-50.7 L MEAN CELL VOLUME (test code = MCV) 93.1 fL 81.0-99.0 N MEAN CELL HGB (test code = MCH) 30.4 pg 27.0-33.0 N MEAN CELL HGB CONCETRATION (test code = MCHC) 32.6 g/dL 33.0-37.0 L RED CELL DISTRIBUTION WIDTH CV (test code = RDW) 13.4 % 11.5-14.5 N RED CELL DISTRIBUTION WIDTH SD (test code = RDW-SD) 46.0 fL 37.0-54.0 N PLATELET COUNT (test code = PLT) 97 x10 3/uL 150-400 L MEAN PLATELET VOLUME (test c ode = MPV) 10.8 fL 7.0-9.0 H NEUTROPHIL % (test code = NT%) 80.0 % 56.0-77.0 H IMMATURE GRANULOCYTE % (test code = IG%) 0.7 % 0.0-2.0 N LYMPHOCYTE % (test code = LY%) 10.5 % 14.0-32.0 L MONOCYTE % (test code = MO%) 8.6 % 4.8-9.0 N EOSINOPHIL % (test code = EO%) 0.0 % 0.3-3.7 L BASOPHIL % (test code = BA%) 0.2 % 0.0-2.0 N NUCLEATED RBC % (test code = NRBC%) 0.0 % 0-0 N NEUTROPHIL # (test code = NT#) 9.73 x10 3/uL 2.0-7.6 H IMMATURE GRANULOCYTE # (test code = IG#) 0.08 x10 3/uL 0.00-0.03 H LYMPHOCYTE # (test code = LY#) 1.27 x10 3/uL 1.0-3.8 N MONOCYTE # (test code = MO#) 1.05 x10 3/uL 0.1-0.8 H EOSINOPHIL # (test code = EO#) 0.00 x10 3/uL 0.0-0.2 N BASOPHIL # (test code = BA#) 0.02 x10 3/uL 0.0-0.2 N NUCLEATED RBC # (test code = NRBC#) 0.00 x10 3/uL 0.0-0.1 N MANUAL DIFF REQUIRED (test c ode = MDIFF) NO - XR CHEST 1 [id number] 00:00:[address] [facility] : 1940 Sex: M FAX: BUSINESS INFO CONSULTANT, [place]: St: ADM FAX: Salazar Delarosa [phone] FAX: Pamela Camacho [phone] Name: MARITZABRENNAN GARRETT [facility] : 1940 Age/S: 82/M [address] [place] [address] Unit #: [id number] Loc: [address] [address] Phys: Pamela Burnette Acct: [id number] Dis Date: Status: ADM IN PHONE #: [phone] Exam Date: 08/12/2022716 FAX #: [phone] Reason:Cardiac Surgery Post Op Report Has Been Amended EXAMS: CPT CODE: [id number] XR CHEST 1 V 98793 Addendum - 08/12/2022 SIGNED 08/12/2022 ADDENDUM: [id number] RAD/CXR1 Notes: Findings were discussed with Dr. Nance at 08/12/2022 9:55 AM BRAKE HOLDER. at 0955 Reported and signed by: Volodymyr Awad M.D. Report PROCEDURE INFORMATI ON: Exam: XR Chest Exam date and time: 08/12/2022 6:25 AM Age: 82 years old Clinical indication: Other: Cardiac surgery post op TECHNIQUE: Imaging protocol: Radiologic exam of the chest. Views: 1 view. COMPARISON: 1. CR XR CHEST 1V 08/11/2022 4:58 AM 2. CR XR CHEST 1V 08/10/2022 3:48 PM FINDINGS: Tubes, catheters and devices: Left thoracostomy drain has been removed. Mediastinal drain in place. Right IJ Irvine-Makayla catheter sheath in place. Lungs: Indistinct basilar opacities asymmetric on the leftwith obscuration of the left hemidiaphragm. Pleural spaces: Small left apical [...] pleural PAGE 1 Signed Report (CONTINUED) FAX: BUSINESS INFO CONSULTANT, [place]: St: ADM FAX: Salazar Delarosa [phone] FAX: Pamela Camacho [phone] Name: BRENNAN AHN [facility] : 1940 Age/S: 82/M [address] [place] [address] Unit #: [id number] Loc: G[address] [place] [address] Phys: Pamela Alvarado Acct: [id number] Dis Date: Status: ADM IN PHONE #: [phone] Exam Date: 08/12/202217 FAX #: [phone] Reason: Cardiac Surgery Post Op Report Has Been Amended EXAMS: CPT CODE: [id number] XR CHEST 1 V 78409 (Continued) effusion subjectively enlarged. 2. Bibasilar atelec tasis versus airspace disease. 3. Stable postoperative cardiomediastinal silhouette. at 0951 Reported and signed by: Volodymyr Awad M.D. CC: BUSINESS INFO CONSULTANT; Salazar Hurd MD; Pamela PINO Technologist: Silvestre López; Katie Ball, (R) [facility] Date/Time/By: 08/12/2022 (0951) : By: NayelyKWL Orig PrintD/T: S: 08/12/2022 (0951) PAGE 2 Signed ReportGLUCOSE [id number] 08:20:00* Test Item Value Reference Range Interpretation Comme nts GLUCOSE BEDSIDE (test code = GLUBED) 104 MG/DL 70-110 N Performed by cer tified slice plug cutter operator at [facility] GLUCOSE [id number] 06:25:00* Test Item Value Reference Range Interpretation Comme nts GLUCOSE BEDSIDE (test code = GLUBED) 108 MG/DL 70-110 N Performed by cer tified slice plug cutter operator at [facility] GLUCOSE [id number] 04:52:00* Test Item Value Reference Range Interpretation Comme nts GLUCOSE BEDSIDE (test code = GLUBED) 99 MG/DL 70-110 N Performed by cer tified slice plug cutter operator at [facility] PLT [id number] 03:10:00* Test Item Value Reference Range Interpretation Comme nts PLATELET ESTIMATE (test code = PLTEST) 100-125 THOUSAND ADEQUATE CBC W/AUTO [id number] 03:10:00* Test Item Value Reference Range Interpretation Comme nts WHITE BLOOD CELL (test code = WBC) 12.7 x10 3/uL 4.5-11.0 H RED BLOOD CELL (test code = RBC) 3.10 x10 6/uL 4.00-5.60 L HEMOGLOBIN (test code = HGB) 9.3 g/dL 12.5-16.9 L HEMATOCRIT (test code = HCT) 29.2 % 37.5-50.7 L MEAN CELL VOLUME (test code = MCV) 94.2 fL 81.0-99.0 N MEAN CELL HGB (test code = MCH) 30.0 pg 27.0-33.0 N MEAN CELL HGB CONCETRATION (test code = MCHC) 31.8 g/dL 33.0-37.0 L RED CELL DISTRIBUTION WIDTH CV (test code = RDW) 13.3 % 11.5-14.5 N RED CELL DISTRIBUTION WIDTH SD (test code = RDW-SD) 45.5 fL 37.0-54.0 N PLATELET COUNT (test code = PLT) 99 x10 3/uL 150-400 L MEAN PLATELET VOLUME (test code = MPV) 10.4 fL 7.0-9.0 H NEUTROPHIL % (test code = NT%) 85.3 % 56.0-77.0 H IMMATURE GRANULOCYTE % (test code = IG%) 0.5 % 0.0-2.0 N LYMPHOCYTE % (test code = LY%) 5.2 % 14.0-32.0 L MONOCYTE % (test code = MO%) 8.7 % 4.8-9.0 N EOSINOPHIL % (test code = EO%) 0.1 % 0.3-3.7 L BASOPHIL % (test code = BA%) 0.2 % 0.0-2.0 N NUCLEATED RBC % (test code = NRBC%) 0.0 % 0-0 N NEUTROPHIL # (test code = NT#) 10.86 x10 3/uL 2.0-7.6 H IMMATURE GRANULOCYTE # (test code = IG#) 0.06 x10 3/uL 0.00-0.03 H LYMPHOCYTE # (test code = LY#) 0.66 x10 3/uL 1.0-3.8 L MONOCYTE # (test code = MO#) 1.10 x10 3/uL 0.1-0.8 H EOSINOPHIL # (test code = EO#) 0.01 x10 3/uL 0.0-0.2 N BASOPHIL # (test code = BA#) 0.02 x10 3/uL 0.0-0.2 N NUCLEATED RBC # (test code = NRBC#) 0.00 x10 3/uL 0.0-0.1 N MANUAL DIFF REQUIRED (test code = MDIFF) NO BASIC METABOLIC [id number] 02:40:00* Test Item Value Reference Range Interpretation Comme nts SODIUM (test code = NA) 142 mEq/L 134-147 N POTASSIUM (test code = K) 4.2 mEq/L 3.4-5.0 N CHLORIDE (test code = CL) 110 mEq/L 100-108 H CARBON DIOXIDE (test code = CO2) 25 mEq/l 21-33 N ANION GAP (test code = GAP) 11 0-20 N GLUCOSE (test code = GLU) 127 mg/dL 70-110 H BLOOD UREA NITROGEN (test code = BUN) 17 mg/dL 7-18 N GLOMERULAR FILTRATION RATE (test code = GFR) 55.5 70-80 L The Glomerular Filtration Rate is a calculated parameterbased on serum Creatinine, patient age and sex. GFR valuesless than 60 mL/min/1.73 square meters are indicative ofChronic Kidney Disease. Values less than 15 mL/min/1.73square meters indicate Kidney failure. The calculation forGFR is based on the CKD-EPI (202) calculation. This formulais race indifferent and is the recommended formula for GFRby the National Kidney Foundation for Adults.The GFR will not calculate if the sex is unknown or if thepatient's age is <18 years. CREATININE (test code = CREAT) 1.3 mg/dL 0.6-1.3 N CALCIUM (test code = CA) 8.3 mg/dL 8.0-10.5 N COMMENTS: POD #1HEPATIC FUNCTION [id number] 02:40:00* Test Item Value Reference Range Interpretation Comme nts TOTAL PROTEIN (test code = PROT) 5.1 g/dL 6.4-8.2 L ALBUMIN (test code = ALB) 3.60 g/dL 3.4-5.0 N BILIRUBIN TOTAL (test code = BILT) 0.60 mg/dL 0.0-1.0 N BILIRUBIN DIRECT (test code = BILD) 0.30 MG/DL 0.0-0.30 N BILIRUBIN INDIRECT (test cod e = BILIND) 0.30 MG/DL SGOT/AST (test code = AST) 38 IUnit/L 15-37 H SGPT/ALT (test code = ALT) 13 IUnit/L 30-65 L ALKALINE PHOSPHATASE TOTAL ( test code = ALKP) 46 IUnit/L 20-125 COMMENTS: POD #[id number] 02:40:00* Test Item Value Reference Range Interpretation Comme nts MAGNESIUM (test code = MAG) 2.28 mg/dL 1.80-2.40 COMMENTS: POD #1POC ARTERIAL BLOOD [id number] 02:19:00* Test Item Value Reference Range Interpretation Comme nts POC ARTERIAL BLOOD GAS PH (t est code = POCPHA) 7.304 7.35-7.45 L POC ARTERIAL BLOOD GAS PCO2 (test code = UAKTHO2O) 46.4 mmHg 35.0-45 H POC TCO2 ARTERIAL (test code = POCTCO2) 24.5 POC ARTERIAL BLOOD GAS PO2 ( test code = RSCTO6I) 64.1 mmHg 80-100.0 L POC HCO3 ARTERIAL (test code = KOYZJV4N) 23.0 MMOL/L 22.0-26.0 N POC BASE EXCESS (test code = POCBEA) -3.3 MMOL/L -4.0-4.0 N POC O2 SATURATION (test code = POCO2S) 89.7 % 90-100 L ABG DELIVERY (test code = SOLOMON) Room Air ABG SITE (test code = SITEA) Art Line BASIC METABOLIC [id number] 02:19:00* Test Item Value Reference Range Interpretation Comme nts SODIUM (test code = NA/ABG) 142 mmol/L 134-147 N POTASSIUM (test code = K/ABG) 4.3 mmol/L 3.4-5.0 N CHLORIDE (test code = CL/ABG) 107 mmol/L 100-108 N CREATININE ABG (test code = CREAABG) 1.3 mg/dL 0.8-1.3 N POC IONIZED CALCIUM (test co de = POCCA) 1.23 MMOL/L 1.12-1.32 N POC GLUCOSE (test code = POCGLU) 125 MG/DL 70-110 H HEMOGLOBIN [id number] 02:19:00* Test Item Value Reference Range Interpretation Comme nts HEMOGLOBIN ABG (test code = HGB/ABG) 9.5 G/DL 12.5-16.9 L [id number] 02:19:00* Test Item Value Reference Range Interpretation Comme nts HEMATOCRIT (test code = HCT/ABG) 28 % 37.5-50.7 L POC LACTIC [id number] 02:19:00* Test Item Value Reference Range Interpretation Comme nts POC LACTIC ACID (test code = POCLAC) 0.9 mmol/l 0.9-1.7 N GLUCOSE [id number] 01:04:00* Test Item Value Reference Range Interpretation Comme nts GLUCOSE BEDSIDE (test code = GLUBED) 98 MG/DL 70-110 N Performed by cer tified slice plug cutter operator at [facility] - XR CHEST 1 [id number] 00:00:00 [facility] 1940 Sex: M FAX: BUSINESS INFO CONSULTANT, [place]: St: ADM FAX: Salazar Delarosa [phone] FAX: Pamela Camacho [phone] Name: BRENNAN AHN [facility] [place] : 1940 Age/S: 82/M [address] [place] [address] Unit #: [id number] Loc: G.[address] [place] [address] Phys: Pamela Burnette Acct: [id number] Dis Date: Status: ADM IN PHONE #: [phone] Exam Date: 08/11/2022 0500 FAX #: [phone] Reason: Cardiac Surgery Post Op EXAMS: CPT CODE: [id number] XR CHEST 1 V 03890 PROCEDURE INFORMATION: Exam: XR Chest Exam date and time: 08/11/2022 4:58 AM Age: 82 years old Clinical indication: Other: Cardiac surgery post op TECHNIQUE: Imaging protocol: Radiologic exam of the chest. Views: 1 view. COMPARISON: CR XR CHEST 1V 08/10/2022 3:48 PM FINDINGS: Lungs: There is opacity at the base. The patient has intervally extubated. A right IJ catheter and mediastinal tube remain in place. Pleural spaces: Unremarkable. No pleural effusion. No pneumothorax. Heart/Mediastinum: The cardiac silhouette is enlarged. Previous midline sternotomy. Bones/joints: There has been previous cervical spinal fusion. IMPRES ERMA: Cardiomegaly with opacity at the left lung base. at 0730 Reported and signed by: Aniket Loredo M.D. CC: BUSINESS INFO CONSULTANT; Salazar Hurd MD; Pamela PINO Technologist: RT Livia(R) Trnscrd Date/Time/By: 08/11/2022 (729) : By: NayelyTDO Orig Print D/T: S: 08/11/2022 (8650) PAGE 1 [facility] [id number] 21:48:00* Test Item Value Reference Range Interpretation Comme nts POC ARTERIAL BLOOD GAS PH (t est code = POCPHA) 7.317 7.35-7.45 L POC ARTERIAL BLOOD GAS PCO2 (test code = VXGDNR8N) 45.1 mmHg 35.0-45 H POC TCO2 ARTERIAL (test code = POCTCO2) 24.4 POC ARTERIAL BLOOD GAS PO2 ( test code = VQBUM8O) 178.0 mmHg 80-100.0 H POC HCO3 ARTERIAL (test code = BBEMYT8E) 23.1 MMOL/L 22.0-26.0 N POC BASE EXCESS (test code = POCBEA) -3.1 MMOL/L -4.0-4.0 N POC O2 SATURATION (test code = POCO2S) 99.5 % 90-100 N ABG DELIVERY (test code = SOLOMON) [facility] ABG SITE (test code = SITEA) Art Line BASIC METABOLIC [id number] 21:48:00* Test Item Value Reference Range Interpretation Comme nts SODIUM (test code = NA/ABG) 143 mmol/L 134-147 N POTASSIUM (test code = K/ABG) 3.6 mmol/L 3.4-5.0 N CHLORIDE (test code = CL/ABG) 109 mmol/L 100-108 H CREATININE ABG (test code = CREAABG) 1.4 mg/dL 0.8-1.3 H POC IONIZED CALCIUM (test co de = POCCA) 1.17 MMOL/L 1.12-1.32 N POC GLUCOSE (test code = POCGLU) 108 MG/DL 70-110 N HEMOGLOBIN [id number] 21:48:00* Test Item Value Reference Range Interpretation Comme nts HEMOGLOBIN ABG (test code = HGB/ABG) 8.9 G/DL 12.5-16.9 L [id number] 21:48:00* Test Item Value Reference Range Interpretation Comme nts HEMATOCRIT (test code = HCT/ABG) 26 % 37.5-50.7 L POC LACTIC [id number] 21:48:00* Test Item Value Reference Range Interpretation Comme nts POC LACTIC ACID (test code = POCLAC) 1.0 mmol/l 0.9-1.7 N GLUCOSE [id number] 20:36:00* Test Item Value Reference Range Interpretation Comme nts GLUCOSE BEDSIDE (test code = GLUBED) 103 MG/DL 70-110 N Performed by cer tified slice plug cutter operator at [facility] POC ARTERIAL BLOOD [id number] 18:23:00* Test Item Value Reference Range Interpretation Comme nts POC ARTERIAL BLOOD GAS PH (t est code = POCPHA) 7.321 7.35-7.45 L POC ARTERIAL BLOOD GAS PCO2 (test code = NBQDYU7L) 46.1 mmHg 35.0-45 H POC TCO2 ARTERIAL (test code = POCTCO2) 25.3 POC ARTERIAL BLOOD GAS PO2 ( test code = QXARA5O) 125.2 mmHg 80-100.0 H POC HCO3 ARTERIAL (test code = MSXFWG1Q) 23.9 MMOL/L 22.0-26.0 N POC BASE EXCESS (test code = POCBEA) -2.3 MMOL/L -4.0-4.0 N POC O2 SATURATION (test code = POCO2S) 98.6 % 90-100 N FIO2 (test code = FIO2A) 40 % PaO2/FiO2 (test code = MEK5LQR7) 313.00 mm/Hg ABG DELIVERY (test code = SOLOMON) Adult Vent ABG VENT MODE (test code = MODEA) CPAP/PS ABG VENT RESP RATE (test cod e = RRA) 17 /MIN ABG PEEP (test code = PEEPA) 5 cmH2O ABG PRESSURE SUPPORT (test c ode = PSABG) 10 cmH2O ABG TEMPERATURE (test code = TEMPA) 98 F ABG SITE (test code = SITEA) Art Line BASIC METABOLIC [id number] 18:23:00* Test Item Value Reference Range Interpretation Comme nts SODIUM (test code = NA/ABG) 142 mmol/L 134-147 N POTASSIUM (test code = K/ABG) 3.7 mmol/L 3.4-5.0 N CHLORIDE (test code = CL/ABG) 108 mmol/L 100-108 N CREATININE ABG (test code = CREAABG) 1.2 mg/dL 0.8-1.3 N POC IONIZED CALCIUM (test co de = POCCA) 1.17 MMOL/L 1.12-1.32 N POC GLUCOSE (test code = POCGLU) 137 MG/DL 70-110 H HEMOGLOBIN [id number] 18:23:00* Test Item Value Reference Range Interpretation Comme nts HEMOGLOBIN ABG (test code = HGB/ABG) 9.5 G/DL 12.5-16.9 L [id number] 18:23:00* Test Item Value Reference Range Interpretation Comme nts HEMATOCRIT (test code = HCT/ABG) 28 % 37.5-50.7 L POC LACTIC [id number] 18:23:00* Test Item Value Reference Range Interpretation Comme nts POC LACTIC ACID (test code = POCLAC) 1.6 mmol/l 0.9-1.7 N POC ARTERIAL BLOOD [id number] 17:49:00* Test Item Value Reference Range Interpretation Comme nts POC ARTERIAL BLOOD GAS PH (t est code = POCPHA) 7.283 7.35-7.45 LL POC ARTERIAL BLOOD GAS PCO2 (test code = NOFKSH8Z) 44.1 mmHg 35.0-45 N POC TCO2 ARTERIAL (test code = POCTCO2) 22.3 POC ARTERIAL BLOOD GAS PO2 ( test code = GTSBU1I) 140.9 mmHg 80-100.0 H POC HCO3 ARTERIAL (test code = IAMQUL2U) 21.0 MMOL/L 22.0-26.0 L POC BASE EXCESS (test code = POCBEA) -5.8 MMOL/L -4.0-4.0 L POC O2 SATURATION (test code = POCO2S) 98.9 % 90-100 N FIO2 (test code = FIO2A) 40 % PaO2/FiO2 (test code = TFA2LEF8) 352.25 mm/Hg ABG DELIVERY (test code = SOLOMON) Adult Vent ABG VENT MODE (test code = MODEA) CPAP/PS ABG VENT RESP RATE (test cod e = RRA) 22 /MIN ABG PEEP (test code = PEEPA) 5 cmH2O ABG PRESSURE SUPPORT (test c ode = PSABG) 10 cmH2O ABG TEMPERATURE (test code = TEMPA) 98 F ABG SITE (test code = SITEA) Art Line BASIC METABOLIC [id number] 17:49:00* Test Item Value Reference Range Interpretation Comme nts SODIUM (test code = NA/ABG) 141 mmol/L 134-147 N POTASSIUM (test code = K/ABG) 4.1 mmol/L 3.4-5.0 N CHLORIDE (test code = CL/ABG) 109 mmol/L 100-108 H CREATININE ABG (test code = CREAABG) 1.2 mg/dL 0.8-1.3 N POC IONIZED CALCIUM (test co de = POCCA) 1.18 MMOL/L 1.12-1.32 N POC GLUCOSE (test code = POCGLU) 144 MG/DL 70-110 H HEMOGLOBIN [id number] 17:49:00* Test Item Value Reference Range Interpretation Comme nts HEMOGLOBIN ABG (test code = HGB/ABG) 10.3 G/DL 12.5-16.9 L [id number] 17:49:00* Test Item Value Reference Range Interpretation Comme nts HEMATOCRIT (test code = HCT/ABG) 30 % 37.5-50.7 L POC LACTIC [id number] 17:49:00* Test Item Value Reference Range Interpretation Comme nts POC LACTIC ACID (test code = POCLAC) 1.6 mmol/l 0.9-1.7 N GLUCOSE [id number] 17:11:00* Test Item Value Reference Range Interpretation Comme nts GLUCOSE BEDSIDE (test code = GLUBED) 147 MG/DL 70-110 H Performed by cer tified slice plug cutter operator at [facility] [id number] 16:46:00* Test Item Value Reference Range Interpretation Comme nts MAGNESIUM (test code = MAG) 3.07 mg/dL 1.80-2.40 H COMMENTS: On arrivalBASIC METABOLIC [id number] 16:46:00* Test Item Value Reference Range Interpretation Comme nts SODIUM (test code = NA) 140 mEq/L 134-147 N POTASSIUM (test code = K) 4.2 mEq/L 3.4-5.0 N CHLORIDE (test code = CL) 106 mEq/L 100-108 N CARBON DIOXIDE (test code = CO2) 21 mEq/l 21-33 N ANION GAP (test code = GAP) 17 0-20 N GLUCOSE (test code = GLU) 151 mg/dL 70-110 H BLOOD UREA NITROGEN (test code = BUN) 17 mg/dL 7-18 N GLOMERULAR FILTRATION RATE (test code = GFR) 61.1 70-80 L The Glomerular Filtration Rate is a calculated parameterbased on serum Creatinine, patient age and sex. GFR valuesless than 60 mL/min/1.73 square meters are indicative ofChronic Kidney Disease. Values less than 15 mL/min/1.73square meters indicate Kidney failure. The calculation forGFR is based on the CKD-EPI (2020) calculation. This formulais race indifferent and is the recommended formula for GFRby the National Kidney Foundation for Adults.The GFR will not calculate if the sex is unknown or if thepatient's age is <18 years. CREATININE (test code = CREAT) 1.2 mg/dL 0.6-1.3 N CALCIUM (test code = CA) 8.4 mg/dL 8.0-10.5 N COMMENTS: On arrivalPROTHROMBIN [id number] 16:43:00* Test Item Value Reference Range Interpretation Comme nts PROTHROMBIN TIME PATIENT (test code = PTP) 16.6 SECONDS 9.3-12.9 H INTERNATIONAL NORMAL RATIO (test code = INR) 1.5 0.8-1.2 H TARGET INR BY INDICATION Indication INR1. Prophylaxis of venous thrombosis 2.0 - 3.0 (orthopedic surgery), Prophylaxis of venous thrombosis (other than high-risk surgery), Treatment of Deep Vein Thrombosis/Pulmonary Embolism, Prevention of systemic embolism - Tissue heart valves, Acute Myocardial Infarction (to prevent systemic embolism), Valvular heart disease, Atrial Fibrillation, Bileaflet mechanical valve in aortic position.2. Mechanical prosthetic valves (high risk), 2.5 - 3.5 Presence of Lupus Anticoagulant or Antiphospholipid Antibodies, Prevention of systemic embolism - Acute Myocardial Infarction (to prevent recurrent infarct). COMMENTS: On arrivalTHROMBOPLASTIN TIME [id number] 16:43:00* Test Item Value Reference Range Interpretation Comme nts THROMBOPLASTIN TIME PARTIAL (test code = PTT) 32.6 Seconds 25.0-39.5 N Therapeutic Rang e: 50.4 - 88.3 Seconds Effective 09/17/2018 COMMENTS: On arrivalCBC W/AUTO [id number] 16:31:00* Test Item Value Reference Range Interpretation Comme nts WHITE BLOOD CELL (test code = WBC) 18.0 x10 3/uL 4.5-11.0 H RED BLOOD CELL (test code = RBC) 3.53 x10 6/uL 4.00-5.60 L HEMOGLOBIN (test code = HGB) 10.6 g/dL 12.5-16.9 L HEMATOCRIT (test code = HCT) 32.4 % 37.5-50.7 L MEAN CELL VOLUME (test code = MCV) 91.8 fL 81.0-99.0 N MEAN CELL HGB (test code = MCH) 30.0 pg 27.0-33.0 N MEAN CELL HGB CONCETRATION (test code = MCHC) 32.7 g/dL 33.0-37.0 L RED CELL DISTRIBUTION WIDTH CV (test code = RDW) 13.2 % 11.5-14.5 N RED CELL DISTRIBUTION WIDTH SD (test code = RDW-SD) 44.4 fL 37.0-54.0 N PLATELET COUNT (test code = PLT) 110 x10 3/uL 150-400 L MEAN PLATELET VOLUME (test code = MPV) 10.3 fL 7.0-9.0 H NEUTROPHIL % (test code = NT%) 93.1 % 56.0-77.0 H IMMATURE GRANULOCYTE % (test code = IG%) 0.8 % 0.0-2.0 N LYMPHOCYTE % (test code = LY%) 3.8 % 14.0-32.0 L MONOCYTE % (test code = MO%) 1.8 % 4.8-9.0 L EOSINOPHIL % (test code = EO%) 0.3 % 0.3-3.7 N BASOPHIL % (test code = BA%) 0.2 % 0.0-2.0 N NUCLEATED RBC % (test code = NRBC%) 0.0 % 0-0 N NEUTROPHIL # (test code = NT#) 16.78 x10 3/uL 2.0-7.6 H IMMATURE GRANULOCYTE # (test code = IG#) 0.15 x10 3/uL 0.00-0.03 H LYMPHOCYTE # (test code = LY#) 0.69 x10 3/uL 1.0-3.8 L MONOCYTE # (test code = MO#) 0.32 x10 3/uL 0.1-0.8 N EOSINOPHIL # (test code = EO#) 0.05 x10 3/uL 0.0-0.2 N BASOPHIL # (test code = BA#) 0.03 x10 3/uL 0.0-0.2 N NUCLEATED RBC # (test code = NRBC#) 0.00 x10 3/uL 0.0-0.1 N MANUAL DIFF REQUIRED (test code = MDIFF) NO COMMENTS: [facility] [id number] 16:03:00* Test Item Value Reference Range Interpretation Comme nts POC ARTERIAL BLOOD GAS PH (t est code = POCPHA) 7.324 7.35-7.45 L POC ARTERIAL BLOOD GAS PCO2 (test code = JTVWGA2R) 39.1 mmHg 35.0-45 N POC TCO2 ARTERIAL (test code = POCTCO2) 21.5 POC ARTERIAL BLOOD GAS PO2 ( test code = GIGKK9S) 200.1 mmHg 80-100.0 HH POC HCO3 ARTERIAL (test code = ZCWFUL8Y) 20.3 MMOL/L 22.0-26.0 L POC BASE EXCESS (test code = POCBEA) -5.7 MMOL/L -4.0-4.0 L POC O2 SATURATION (test code = POCO2S) 99.6 % 90-100 N FIO2 (test code = FIO2A) 60 % PaO2/FiO2 (test code = MDQ4VRL5) 333.50 mm/Hg ABG DELIVERY (test code = SOLOMON) Adult Vent ABG VENT MODE (test code = MODEA) AC ABG VENT RESP RATE (test cod e = RRA) 16 /MIN ABG TIDAL VOLUME (test code = TVA) 500 ml ABG PEEP (test code = PEEPA) 5 cmH2O ABG SITE (test code = SITEA) Art Line GERRY'S TEST (test code = ALLENS) N/A BASIC METABOLIC [id number] 16:03:00* Test Item Value Reference Range Interpretation Comme nts SODIUM (test code = NA/ABG) 139 mmol/L 134-147 N POTASSIUM (test code = K/ABG) 4.2 mmol/L 3.4-5.0 N CHLORIDE (test code = CL/ABG) 107 mmol/L 100-108 N CREATININE ABG (test code = CREAABG) 1.1 mg/dL 0.8-1.3 N POC IONIZED CALCIUM (test co de = POCCA) 1.23 MMOL/L 1.12-1.32 N POC GLUCOSE (test code = POCGLU) 144 MG/DL 70-110 H HEMOGLOBIN [id number] 16:03:00* Test Item Value Reference Range Interpretation Comme nts HEMOGLOBIN ABG (test code = HGB/ABG) 10.5 G/DL 12.5-16.9 L [id number] 16:03:00* Test Item Value Reference Range Interpretation Comme nts HEMATOCRIT (test code = HCT/ABG) 31 % 37.5-50.7 L POC ARTERIAL BLOOD [id number] 15:11:00* Test Item Value Reference Range Interpretation Comme nts POC ARTERIAL BLOOD GAS PH (t est code = POCPHA) 7.328 7.35-7.45 L POC ARTERIAL BLOOD GAS PCO2 (test code = ZKBQFK0B) 45.1 mmHg 35.0-45 H POC TCO2 ARTERIAL (test code = POCTCO2) 25.0 POC ARTERIAL BLOOD GAS PO2 ( test code = ESZYG6V) 433.9 mmHg 80-100.0 HH POC HCO3 ARTERIAL (test code = FAKBRJ6P) 23.7 MMOL/L 22.0-26.0 N POC BASE EXCESS (test code = POCBEA) -2.4 MMOL/L -4.0-4.0 N POC O2 SATURATION (test code = POCO2S) 100.0 % 90-100 N BASIC METABOLIC [id number] 15:11:00* Test Item Value Reference Range Interpretation Comme nts SODIUM (test code = NA/ABG) 139 mmol/L 134-147 N POTASSIUM (test code = K/ABG) 4.3 mmol/L 3.4-5.0 N CHLORIDE (test code = CL/ABG) 105 mmol/L 100-108 N CREATININE ABG (test code = CREAABG) 1.2 mg/dL 0.8-1.3 N POC IONIZED CALCIUM (test co de = POCCA) 1.30 MMOL/L 1.12-1.32 N POC GLUCOSE (test code = POCGLU) 122 MG/DL 70-110 H HEMOGLOBIN [id number] 15:11:00* Test Item Value Reference Range Interpretation Comme nts HEMOGLOBIN ABG (test code = HGB/ABG) 9.9 G/DL 12.5-16.9 L [id number] 15:11:00* Test Item Value Reference Range Interpretation Comme nts HEMATOCRIT (test code = HCT/ABG) 29 % 37.5-50.7 L POC LACTIC [id number] 15:11:00* Test Item Value Reference Range Interpretation Comme nts POC LACTIC ACID (test code = POCLAC) 0.8 mmol/l 0.9-1.7 L [id number] 15:09:00* Test Item Value Reference Range Interpretation Comme nts ACT-ISTAT (test code = ACTI) 131 SEC 74-137 N Performed by cer tified slice plug cutter operator at [facility] [id number] 14:44:00* Test Item Value Reference Range Interpretation Comme nts ACT-ISTAT (test code = ACTI) 630 SEC 74-137 H Performed by cer tified slice plug cutter operator at [facility] POC ARTERIAL BLOOD [id number] 14:35:00* Test Item Value Reference Range Interpretation Comme nts POC ARTERIAL BLOOD GAS PH (t est code = POCPHA) 7.438 7.35-7.45 N POC ARTERIAL BLOOD GAS PCO2 (test code = TDPOSZ5O) 35.6 mmHg 35.0-45 N POC TCO2 ARTERIAL (test code = POCTCO2) 25.2 POC ARTERIAL BLOOD GAS PO2 ( test code = QYSQO8Y) 407.3 mmHg 80-100.0 HH POC HCO3 ARTERIAL (test code = ZFJLDU1O) 24.1 MMOL/L 22.0-26.0 N POC BASE EXCESS (test code = POCBEA) 0.1 MMOL/L -4.0-4.0 N POC O2 SATURATION (test code = POCO2S) 100.0 % 90-100 N BASIC METABOLIC [id number] 14:35:00* Test Item Value Reference Range Interpretation Comme nts SODIUM (test code = NA/ABG) 137 mmol/L 134-147 N POTASSIUM (test code = K/ABG) 4.8 mmol/L 3.4-5.0 N CHLORIDE (test code = CL/ABG) 103 mmol/L 100-108 N CREATININE ABG (test code = CREAABG) 1.2 mg/dL 0.8-1.3 N POC IONIZED CALCIUM (test co de = POCCA) 1.06 MMOL/L 1.12-1.32 L POC GLUCOSE (test code = POCGLU) 119 MG/DL 70-110 H HEMOGLOBIN [id number] 14:35:00* Test Item Value Reference Range Interpretation Comme nts HEMOGLOBIN ABG (test code = HGB/ABG) 9.7 G/DL 12.5-16.9 L [id number] 14:35:00* Test Item Value Reference Range Interpretation Comme nts HEMATOCRIT (test code = HCT/ABG) 28 % 37.5-50.7 L POC LACTIC [id number] 14:35:00* Test Item Value Reference Range Interpretation Comme nts POC LACTIC ACID (test code = POCLAC) 0.7 mmol/l 0.9-1.7 L [id number] 14:16:00* Test Item Value Reference Range Interpretation Comme nts ACT-ISTAT (test code = ACTI) 786 SEC 74-137 H Performed by cer tified slice plug cutter operator at [facility] POC ARTERIAL BLOOD [id number] 14:01:00* Test Item Value Reference Range Interpretation Comme nts POC ARTERIAL BLOOD GAS PH (t est code = POCPHA) 7.456 7.35-7.45 H POC ARTERIAL BLOOD GAS PCO2 (test code = RROYSQ5V) 33.0 mmHg 35.0-45 L POC TCO2 ARTERIAL (test code = POCTCO2) 24.2 POC ARTERIAL BLOOD GAS PO2 ( test code = UOCNN2D) 360.5 mmHg 80-100.0 HH POC HCO3 ARTERIAL (test code = XTKBYL2T) 23.2 MMOL/L 22.0-26.0 N POC BASE EXCESS (test code = POCBEA) -0.3 MMOL/L -4.0-4.0 N POC O2 SATURATION (test code = POCO2S) 100.0 % 90-100 N BASIC METABOLIC [id number] 14:01:00* Test Item Value Reference Range Interpretation Comme nts SODIUM (test code = NA/ABG) 138 mmol/L 134-147 N POTASSIUM (test code = K/ABG) 5.0 mmol/L 3.4-5.0 N CHLORIDE (test code = CL/ABG) 103 mmol/L 100-108 N CREATININE ABG (test code = CREAABG) 1.2 mg/dL 0.8-1.3 N POC IONIZED CALCIUM (test co de = POCCA) 1.05 MMOL/L 1.12-1.32 L POC GLUCOSE (test code = POCGLU) 122 MG/DL 70-110 H HEMOGLOBIN [id number] 14:01:00* Test Item Value Reference Range Interpretation Comme nts HEMOGLOBIN ABG (test code = HGB/ABG) 9.9 G/DL 12.5-16.9 L [id number] 14:01:00* Test Item Value Reference Range Interpretation Comme nts HEMATOCRIT (test code = HCT/ABG) 29 % 37.5-50.7 L POC LACTIC [id number] 14:01:00* Test Item Value Reference Range Interpretation Comme nts POC LACTIC ACID (test code = POCLAC) 0.8 mmol/l 0.9-1.7 L POC ARTERIAL BLOOD [id number] 13:32:00* Test Item Value Reference Range Interpretation Comme nts POC ARTERIAL BLOOD GAS PH (t est code = POCPHA) 7.430 7.35-7.45 N POC ARTERIAL BLOOD GAS PCO2 (test code = JFVGSG4P) 35.7 mmHg 35.0-45 N POC TCO2 ARTERIAL (test code = POCTCO2) 24.8 POC ARTERIAL BLOOD GAS PO2 ( test code = RMBBD6N) 445.2 mmHg 80-100.0 HH POC HCO3 ARTERIAL (test code = BELVNF3T) 23.7 MMOL/L 22.0-26.0 N POC BASE EXCESS (test code = POCBEA) -0.4 MMOL/L -4.0-4.0 N POC O2 SATURATION (test code = POCO2S) 100.0 % 90-100 N BASIC METABOLIC [id number] 13:32:00* Test Item Value Reference Range Interpretation Comme nts SODIUM (test code = NA/ABG) 137 mmol/L 134-147 N POTASSIUM (test code = K/ABG) 4.7 mmol/L 3.4-5.0 N CHLORIDE (test code = CL/ABG) 103 mmol/L 100-108 N CREATININE ABG (test code = CREAABG) 1.2 mg/dL 0.8-1.3 N POC IONIZED CALCIUM (test co de = POCCA) 1.07 MMOL/L 1.12-1.32 L POC GLUCOSE (test code = POCGLU) 119 MG/DL 70-110 H HEMOGLOBIN [id number] 13:32:00* Test Item Value Reference Range Interpretation Comme nts HEMOGLOBIN ABG (test code = HGB/ABG) 10.7 G/DL 12.5-16.9 L [id number] 13:32:00* Test Item Value Reference Range Interpretation Comme nts HEMATOCRIT (test code = HCT/ABG) 31 % 37.5-50.7 L POC LACTIC [id number] 13:32:00* Test Item Value Reference Range Interpretation Comme nts POC LACTIC ACID (test code = POCLAC) 0.9 mmol/l 0.9-1.7 N [id number] 13:27:00* Test Item Value Reference Range Interpretation Comme nts ACT-ISTAT (test code = ACTI) > 1000 SEC 74-137 H Performed by cer tified slice plug cutter operator at [facility] POC ARTERIAL BLOOD [id number] 13:05:00* Test Item Value Reference Range Interpretation Comme nts POC ARTERIAL BLOOD GAS PH (t est code = POCPHA) 7.366 7.35-7.45 N POC ARTERIAL BLOOD GAS PCO2 (test code = DBDJMU6V) 45.8 mmHg 35.0-45 H POC TCO2 ARTERIAL (test code = POCTCO2) 27.6 POC ARTERIAL BLOOD GAS PO2 ( test code = LPCSK0U) 529.4 mmHg 80-100.0 HH POC HCO3 ARTERIAL (test code = SMGBGT7F) 26.2 MMOL/L 22.0-26.0 H POC BASE EXCESS (test code = POCBEA) 0.5 MMOL/L -4.0-4.0 N POC O2 SATURATION (test code = POCO2S) 100.0 % 90-100 N BASIC METABOLIC [id number] 13:05:00* Test Item Value Reference Range Interpretation Comme nts SODIUM (test code = NA/ABG) 138 mmol/L 134-147 N POTASSIUM (test code = K/ABG) 3.8 mmol/L 3.4-5.0 N CHLORIDE (test code = CL/ABG) 101 mmol/L 100-108 N CREATININE ABG (test code = CREAABG) 1.2 mg/dL 0.8-1.3 N POC IONIZED CALCIUM (test co de = POCCA) 1.03 MMOL/L 1.12-1.32 L POC GLUCOSE (test code = POCGLU) 117 MG/DL 70-110 H HEMOGLOBIN [id number] 13:05:00* Test Item Value Reference Range Interpretation Comme nts HEMOGLOBIN ABG (test code = HGB/ABG) 11.7 G/DL 12.5-16.9 L [id number] 13:05:00* Test Item Value Reference Range Interpretation Comme nts HEMATOCRIT (test code = HCT/ABG) 34 % 37.5-50.7 L POC LACTIC [id number] 13:05:00* Test Item Value Reference Range Interpretation Comme nts POC LACTIC ACID (test code = POCLAC) < 0.3 mmol/l 0.9-1.7 L [id number] 12:53:00* Test Item Value Reference Range Interpretation Comme nts ACT-ISTAT (test code = ACTI) 847 SEC 74-137 H Performed by cer tified slice plug cutter operator at [facility] POC ARTERIAL BLOOD [id number] 12:45:00* Test Item Value Reference Range Interpretation Comme nts POC ARTERIAL BLOOD GAS PH (t est code = POCPHA) 7.311 7.35-7.45 L POC ARTERIAL BLOOD GAS PCO2 (test code = DYKFTE8H) 48.3 mmHg 35.0-45 H POC TCO2 ARTERIAL (test code = POCTCO2) 25.8 POC ARTERIAL BLOOD GAS PO2 ( test code = APZZL4W) 512.0 mmHg 80-100.0 HH POC HCO3 ARTERIAL (test code = WSWRZY7G) 24.4 MMOL/L 22.0-26.0 N POC BASE EXCESS (test code = POCBEA) -2.4 MMOL/L -4.0-4.0 N POC O2 SATURATION (test code = POCO2S) 100.0 % 90-100 N BASIC METABOLIC [id number] 12:45:00* Test Item Value Reference Range Interpretation Comme nts SODIUM (test code = NA/ABG) 141 mmol/L 134-147 N POTASSIUM (test code = K/ABG) 3.5 mmol/L 3.4-5.0 N CHLORIDE (test code = CL/ABG) 107 mmol/L 100-108 N CREATININE ABG (test code = CREAABG) 1.1 mg/dL 0.8-1.3 N POC IONIZED CALCIUM (test co de = POCCA) 1.11 MMOL/L 1.12-1.32 L POC GLUCOSE (test code = POCGLU) 116 MG/DL 70-110 H HEMOGLOBIN [id number] 12:45:00* Test Item Value Reference Range Interpretation Comme nts HEMOGLOBIN ABG (test code = HGB/ABG) 15.4 G/DL 12.5-16.9 N [id number] 12:45:00* Test Item Value Reference Range Interpretation Comme nts HEMATOCRIT (test code = HCT/ABG) 45 % 37.5-50.7 N POC LACTIC [id number] 12:45:00* Test Item Value Reference Range Interpretation Comme nts POC LACTIC ACID (test code = POCLAC) < 0.3 mmol/l 0.9-1.7 L POC ARTERIAL BLOOD [id number] 11:11:00* Test Item Value Reference Range Interpretation Comme nts POC ARTERIAL BLOOD GAS PH (t est code = POCPHA) 7.370 7.35-7.45 N POC ARTERIAL BLOOD GAS PCO2 (test code = GNIVMD9A) 46.6 mmHg 35.0-45 H POC TCO2 ARTERIAL (test code = POCTCO2) 28.6 POC ARTERIAL BLOOD GAS PO2 ( test code = DSGOW6U) 240.7 mmHg 80-100.0 HH POC HCO3 ARTERIAL (test code = ABWOLM5D) 27.1 MMOL/L 22.0-26.0 H POC BASE EXCESS (test code = POCBEA) 1.7 MMOL/L -4.0-4.0 N POC O2 SATURATION (test code = POCO2S) 99.8 % 90-100 N ABG DELIVERY (test code = SOLOMON) [employer] ABG TEMPERATURE (test code = TEMPA) 97.5 F ABG SITE (test code = SITEA) Art Line BASIC METABOLIC [id number] 11:11:00* Test Item Value Reference Range Interpretation Comme nts SODIUM (test code = NA/ABG) 144 mmol/L 134-147 N POTASSIUM (test code = K/ABG) 3.7 mmol/L 3.4-5.0 N CHLORIDE (test code = CL/ABG) 106 mmol/L 100-108 N CREATININE ABG (test code = CREAABG) 1.2 mg/dL 0.8-1.3 N POC IONIZED CALCIUM (test co de = POCCA) 1.27 MMOL/L 1.12-1.32 N POC GLUCOSE (test code = POCGLU) 97 MG/DL 70-110 N HEMOGLOBIN [id number] 11:11:00* Test Item Value Reference Range Interpretation Comme nts HEMOGLOBIN ABG (test code = HGB/ABG) 17.8 G/DL 12.5-16.9 H [id number] 11:11:00* Test Item Value Reference Range Interpretation Comme nts HEMATOCRIT (test code = HCT/ABG) 52 % 37.5-50.7 H POC LACTIC [id number] 11:11:00* Test Item Value Reference Range Interpretation Comme nts POC LACTIC ACID (test code = POCLAC) 0.5 mmol/l 0.9-1.7 L [id number] 01:14:00* Test Item Value Reference Range Interpretation Comme nts MAGNESIUM (test code = MAG) 1.77 mg/dL 1.80-2.40 L BASIC METABOLIC [id number] 01:07:00* Test Item Value Reference Range Interpretation Comme nts SODIUM (test code = NA) 139 mEq/L 134-147 N POTASSIUM (test code = K) 4.1 mEq/L 3.4-5.0 N CHLORIDE (test code = CL) 106 mEq/L 100-108 N CARBON DIOXIDE (test code = CO2) 26 mEq/l 21-33 N ANION GAP (test code = GAP) 12 0-20 N GLUCOSE (test code = GLU) 82 mg/dL 70-110 N BLOOD UREA NITROGEN (test code = BUN) 16 mg/dL 7-18 N GLOMERULAR FILTRATION RATE (test code = GFR) 55.5 70-80 L The Glomerular Filtration Rate is a calculated parameterbased on serum Creatinine, patient age and sex. GFR valuesless than 60 mL/min/1.73 square meters are indicative ofChronic Kidney Disease. Values less than 15 mL/min/1.73square meters indicate Kidney failure. The calculation forGFR is based on the CKD-EPI (202) calculation. This formulais race indifferent and is the recommended formula for GFRby the National Kidney Foundation for Adults.The GFR will not calculate if the sex is unknown or if thepatient's age is <18 years. CREATININE (test code = CREAT) 1.3 mg/dL 0.6-1.3 N CALCIUM (test code = CA) 9.5 mg/dL 8.0-10.5 N CBC W/AUTO [id number] 00:59:00* Test Item Value Reference Range Interpretation Comme nts WHITE BLOOD CELL (test code = WBC) 8.5 x10 3/uL 4.5-11.0 N RED BLOOD CELL (test code = RBC) 5.46 x10 6/uL 4.00-5.60 N HEMOGLOBIN (test code = HGB) 16.3 g/dL 12.5-16.9 N HEMATOCRIT (test code = HCT) 49.6 % 37.5-50.7 N MEAN CELL VOLUME (test code = MCV) 90.8 fL 81.0-99.0 N MEAN CELL HGB (test code = MCH) 29.9 pg 27.0-33.0 N MEAN CELL HGB CONCETRATION (test code = MCHC) 32.9 g/dL 33.0-37.0 L RED CELL DISTRIBUTION WIDTH CV (test code = RDW) 13.1 % 11.5-14.5 N RED CELL DISTRIBUTION WIDTH SD (test code = RDW-SD) 43.8 fL 37.0-54.0 N PLATELET COUNT (test code = PLT) 194 x10 3/uL 150-400 N MEAN PLATELET VOLUME (test c ode = MPV) 9.9 fL 7.0-9.0 H NEUTROPHIL % (test code = NT%) 65.3 % 56.0-77.0 N IMMATURE GRANULOCYTE % (test code = IG%) 0.2 % 0.0-2.0 N LYMPHOCYTE % (test code = LY%) 19.1 % 14.0-32.0 N MONOCYTE % (test code = MO%) 12.8 % 4.8-9.0 H EOSINOPHIL % (test code = EO%) 2.2 % 0.3-3.7 N BASOPHIL % (test code = BA%) 0.4 % 0.0-2.0 N NUCLEATED RBC % (test code = NRBC%) 0.0 % 0-0 N NEUTROPHIL # (test code = NT#) 5.52 x10 3/uL 2.0-7.6 N IMMATURE GRANULOCYTE # (test code = IG#) 0.02 x10 3/uL 0.00-0.03 N LYMPHOCYTE # (test code = LY#) 1.61 x10 3/uL 1.0-3.8 N MONOCYTE # (test code = MO#) 1.08 x10 3/uL 0.1-0.8 H EOSINOPHIL # (test code = EO#) 0.19 x10 3/uL 0.0-0.2 N BASOPHIL # (test code = BA#) 0.03 x10 3/uL 0.0-0.2 N NUCLEATED RBC # (test code = NRBC#) 0.00 x10 3/uL 0.0-0.1 N MANUAL DIFF REQUIRED (test c ode = MDIFF) NO PROTHROMBIN [id number] 00:59:00* Test Item Value Reference Range Interpretation Comme nts PROTHROMBIN TIME PATIENT (test code = PTP) 13.0 SECONDS 9.3-12.9 H INTERNATIONAL NORMAL RATIO (test code = INR) 1.2 0.8-1.2 N TARGET INR BY INDICATION Indication INR1. Prophylaxis of venous thrombosis 2.0 - 3.0 (orthopedic surgery), Prophylaxis of venous thrombosis (other than high-risk surgery), Treatment of Deep Vein Thrombosis/Pulmonary Embolism, Prevention of systemic embolism - Tissue heart valves, Acute Myocardial Infarction (to prevent systemic embolism), Valvular heart disease, Atrial Fibrillation, Bileaflet mechanical valve in aortic position.2. Mechanical prosthetic valves (high risk), 2.5 - 3.5 Presence of Lupus Anticoagulant or Antiphospholipid Antibodies, Prevention of systemic embolism - Acute Myocardial Infarction (to prevent recurrent infarct). UA RFLX MICR CULT IF [id number] 00:56:00* Test Item Value Reference Range Interpretation Comme nts UA COLOR (test code = COLU) YELLOW YEL/STRAW UA APPEARANCE (test code = APPU) CLEAR CLEAR UA GLUCOSE DIPSTICK (test co de = DGLUU) NEGATIVE NEGATIVE UA BILIRUBIN DIPSTICK (test code = BILU) NEGATIVE NEGATIVE UA KETONE DIPSTICK (test cod e = KETU) 1+ NEGATIVE A UA SPECIFIC GRAVITY (test co de = SGU) 1.015 1.005-1.030 N UA BLOOD DIPSTICK (test code = SUZETTE) NEGATIVE NEGATIVE UA PH DIPSTICK (test code = KEREN) 5.0 5.0-7.0 N UA PROTEIN DIPSTICK (test co de = PROU) 1+ NEGATIVE A UA UROBILINIOGEN DIPSTICK (test code = URO) 0.2 mg/dL 0.2-1.0 UA NITRITE DIPSTICK (test co de = LADONNA) NEGATIVE NEGATIVE UA LEUKOCYTE ESTERASE DIPSTI CK (test code = LEUU) NEGATIVE NEGATIVE UA WBC (test code = WBCU) 0-3 WBC/HPF 0-3 UA RBC (test code = RBCU) 0-3 RBC/HPF 0-3 UA WBC NO REFLEX (test code = WBCUCL) 0-3 WBC/HPF 0-3 UA BACTERIA (test code = BACU) NONE SEEN /HPF NONE SEEN UA SQUAMOUS CELLS (test code = SQU) NONE SEEN /HPF NONE SEEN UA MUCUS (test code = MUCU) TRACE /LPF NONE SEEN Indication for culture: Flank PainSpecimen Description: CLEAN CATCH- XR CHEST 1 [id number] 00:00:00 [facility] : 1940 Sex: M FAX: BUSINESS INFO CONSULTANT, [place]: St: ADM FAX: Salazar Delarosa [phone] FAX: Pamela Camacho [phone] Name: AHNBRENNAN GANDARA GERRY [facility] [place] : 1940 Age/S: 82/M [address] [place] [address] Unit #: [id number] Loc: [address] [place] [id number] Phys: Pamela Burnette Acct: [id number] Dis Date: Status: ADM IN PHONE #: [phone] Exam Date: 08/10/2022 1551 FAX #: [phone] Reason:Cardiac Surgery Post Op EXAMS: CPT CODE: [id number] XR CHEST 1 V 47690 PROCEDURE INFORMATION: Exam: XR Chest Exam date [...] discrete pneumothorax is noted. Heart/Mediastinum: Cardiac silhouette ismildly enlarged. Bones/joints: Fusion hardware in the lower cervical spine is seen. 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 at 1835 Reported and signed by: Morteza Sullivan M.D. CC: BUSINESS INFO CONSULTANT; Salazar Hurd MD; Pamela PINO Technologist: RT Nicho(Doretha) Trndcrd Date/Time/By: 08/10/2022 (1834) : By: LeilaniL Orig Print D/T: S:08/10/2022 (1834) PAGE 1 Signed ReportCOVID 19 Asymptomatic IH [id number] 22:40:00* Test Item Value Reference Range Interpretation Comme nts COVID 19 Asymptomatic IH AG (test code = COVNONPUIAG) Negative Negative A negative resul t is presumptive and should be confirmedwith an FDA authorized molecular assay, if necessary forpatient management.A positive result does not rule out co-infections withother pathogens.This test detects both viable (live) and non-viable,SARS-CoV, and SARS-CoV-2. Test performance depends on theamount of virus (antigen) in the sample.This test has not been FDA cleared or approved; the test hasbeen authorized by FDA under an Emergency Use Authorization(EUA) for use by laboratories certified under the CLIA thatmeet the requirements to perform moderate, high or waivedcomplexity tests. CBC W/AUTO [id number] 18:50:00* Test Item Value Reference Range Interpretation Comme nts WHITE BLOOD CELL (test code = WBC) 8.8 x10 3/uL 4.5-11.0 N RED BLOOD CELL (test code = RBC) 5.60 x10 6/uL 4.00-5.60 N HEMOGLOBIN (test code = HGB) 16.7 g/dL 12.5-16.9 N HEMATOCRIT (test code = HCT) 52.2 % 37.5-50.7 H MEAN CELL VOLUME (test code = MCV) 93.2 fL 81.0-99.0 N MEAN CELL HGB (test code = MCH) 29.8 pg 27.0-33.0 N MEAN CELL HGB CONCETRATION (test code = MCHC) 32.0 g/dL 33.0-37.0 L RED CELL DISTRIBUTION WIDTH CV (test code = RDW) 13.2 % 11.5-14.5 N RED CELL DISTRIBUTION WIDTH SD (test code = RDW-SD) 44.9 fL 37.0-54.0 N PLATELET COUNT (test code = PLT) 172 x10 3/uL 150-400 N MEAN PLATELET VOLUME (test c ode = MPV) 10.8 fL 7.0-9.0 H NEUTROPHIL % (test code = NT%) 70.0 % 56.0-77.0 N IMMATURE GRANULOCYTE % (test code = IG%) 0.3 % 0.0-2.0 N LYMPHOCYTE % (test code = LY%) 18.3 % 14.0-32.0 N MONOCYTE % (test code = MO%) 9.3 % 4.8-9.0 H EOSINOPHIL % (test code = EO%) 1.6 % 0.3-3.7 N BASOPHIL % (test code = BA%) 0.5 % 0.0-2.0 N NUCLEATED RBC % (test code = NRBC%) 0.0 % 0-0 N NEUTROPHIL # (test code = NT#) 6.14 x10 3/uL 2.0-7.6 N IMMATURE GRANULOCYTE # (test code = IG#) 0.03 x10 3/uL 0.00-0.03 N LYMPHOCYTE # (test code = LY#) 1.61 x10 3/uL 1.0-3.8 N MONOCYTE # (test code = MO#) 0.82 x10 3/uL 0.1-0.8 H EOSINOPHIL # (test code = EO#) 0.14 x10 3/uL 0.0-0.2 N BASOPHIL # (test code = BA#) 0.04 x10 3/uL 0.0-0.2 N NUCLEATED RBC # (test code = NRBC#) 0.00 x10 3/uL 0.0-0.1 N MANUAL DIFF REQUIRED (test c ode = MDIFF) NO B-TYPE NATRIURETIC [id number] 18:46:00* Test Item Value Reference Range Interpretation Comme nts B-TYPE NATRIURETIC PEPTIDE ( test code = BNP) 266.0 PG/ML 0-100 H COMPREHENSIVE METABOLIC [id number] 18:28:00* Test Item Value Reference Range Interpretation Comme nts SODIUM (test code = NA) 141 mEq/L 134-147 N POTASSIUM (test code = K) 4.6 mEq/L 3.4-5.0 N CHLORIDE (test code = CL) 107 mEq/L 100-108 N CARBON DIOXIDE (test code = CO2) 28 mEq/l 21-33 N ANION GAP (test code = GAP) 11 0-20 N GLUCOSE (test code = GLU) 85 mg/dL 70-110 N BLOOD UREA NITROGEN (test code = BUN) 13 mg/dL 7-18 N GLOMERULAR FILTRATION RATE (test code = GFR) 61.1 70-80 L The Glomerular Filtration Rate is a calculated parameterbased on serum Creatinine, patient age and sex. GFR valuesless than 60 mL/min/1.73 square meters are indicative ofChronic Kidney Disease. Values less than 15 mL/min/1.73square meters indicate Kidney failure. The calculation forGFR is based on the CKD-EPI (202) calculation. This formulais race indifferent and is the recommended formula for GFRby the National Kidney Foundation for Adults.The GFR will not calculate if the sex is unknown or if thepatient's age is <18 years. CREATININE (test code = CREAT) 1.2 mg/dL 0.6-1.3 N TOTAL PROTEIN (test code = PROT) 7.6 g/dL 6.4-8.2 N ALBUMIN (test code = ALB) 4.10 g/dL 3.4-5.0 N CALCIUM (test code = CA) 10.1 mg/dL 8.0-10.5 N BILIRUBIN TOTAL (test code = BILT) 0.60 mg/dL 0.0-1.0 N SGOT/AST (test code = AST) 47 IUnit/L 15-37 H SGPT/ALT (test code = ALT) 28 IUnit/L 30-65 L ALKALINE PHOSPHATASE TOTAL (test code = ALKP) 112 IUnit/L 20-125 N LIPID PROFILE (CORONARY RISK)2022-08-09 18:28:00* Test Item Value Reference Range Interpretation Comme [facility] TRIGLYCERIDES (test code = TRIG) 158 mg/dL 40-150 H CHOLESTEROL (test code = CHOL) 224 mg/dL <200 H CHOLESTEROL/HDL RATIO (test code = CHOLHDL) 7.83 RATIO 3.43-4.97 H RISK ASSOCIATED WITH CHOL/HDL RATIOS: RISK MALE FEMALE1/2 AVERAGE 3.43 3.27AVERAGE 4.97 4.442X AVERAGE 9.55 7.053X AVERAGE 23.39 11.04 NOTE THAT THE REFERENCE VALUE IS RELATEDTO RISK LEVELS RECOMMENDED BY THE NATL.HEART, LUNG, AND BLOOD INST. HDL CHOLESTEROL (test code = HDL) 28.6 mg/dL 32-72 L LIPOPROTEIN LDL (test code = LDL) 199.0 mg/dL 0-100 H <100 KNGTIXG36 0-129 NEAR OPTIMAL/ABOVE GFCHAXK070-306 KKQPTBOJGW497-128 HIGH>LI=026 VERY HIGH*Guidelines provided by the National Cholesterol EducationProgram Adult Treatment Panel III HGBA1C%2022-08-09 18:25:00* Test Item Value Reference Range Interpretation [facility] HGBA1C% (test code = HGBA1C%) 5.2 %A1C 4.8-6.0 N THROMBOPLASTIN TIME QBELFJE6789-39-83 18:23:00* Test Item Value Reference Range Interpretation [facility] THROMBOPLAST[facility] TIME PARTIAL (test code = PTT) 36.2 Seconds 25.0-39.5 N Therapeutic Rang e: 50.4 - 88.3 Seconds Effective 09/17/2018 PROTHROMBIN AYIE5419-23-20 18:23:00* Test Item Value Reference Range Interpretation [facility] PROTHROMBIN TIME PATIENT (test code = PTP) 12.6 SECONDS 9.3-12.9 N INTERNATIONAL NORMAL RATIO (test code = INR) 1.1 0.8-1.2 N TARGET INR BY INDICATION Indication INR1. Prophylaxis of venous thrombosis 2.0 - 3.0 (orthopedic surgery), Prophylaxis of venous thrombosis (other than high-risk surgery), Treatment of Deep Vein Thrombosis/Pulmonary Embolism, Prevention of systemic embolism - Tissue heart valves, Acute Myocardial Infarction (to prevent systemic embolism), Valvular heart disease, Atrial Fibrillation, Bileaflet mechanical valve in aortic position.2. Mechanical prosthetic valves (high risk), 2.5 - 3.5 Presence of Lupus Anticoagulant or Antiphospholipid Antibodies, Prevention of systemic embolism - Acute Myocardial Infarction (to prevent recurrent infarct). - XR CHEST 2 P2054-15-30 00:00:00 [facility] 1940 Sex: M FAX: BUSINESS INFO CONSULTANT,ZENIA Bolton: St: ADM FAX: Salazar Delarosa [phone] FAX: Pamela Camacho [phone] Name: BRENNAN AHN [facility] : 1940 Age/S: 82/M [address] [place] [address] Blvd Unit #: [id number] Loc: G.4407 [place] [address] Phys: Pamela Burnette Acct: [id number] Dis Date: Status: ADM IN PHONE #: [phone] Exam Date: 08/09/2022 170 FAX #: [phone] Reason: Cardiac Surgery Pre Op EXAMS: CPT CODE: [id number] XR CHEST 2 V 17549 PROCEDURE INFORMATION: Exam: XR Chest Exam date and time: 08/09/2022 5:02 PM Age: 82 years old Clinical indication: Screening exam;Other screening; Additional info: Cardiac surgery pre op [...] and signed by: Eric Edgar M.D. CC: BUSINESS INFO CONSULTANT; Salazar Hurd MD; Pamela PINO Technologist: PEPE Centeno) Trnscrd Date/Time/By: 08/09/2022 (1902) : By: [email or web address] Orig Print D/T: S: 08/09/2022 (1903) PAGE 1 Signed Report- [facility] [id number] 00:00:00 [facility] : 1940 Sex: M Name: BRENNAN AHN [facility] : 1940 Age/S: 82 / M [address] [place] [address] Unit #: [id number] Loc: [place] [address] Phys: Pamela Burnette Acct: [id number] Dis Date: Status: ADM IN PHONE #: [phone] Exam Date: 08/09/2022 175 FAX #: [phone] Reason: BilateralVein Bilateral mapping EXAMS: CPT CODE: [id number] DUP VEIN ANCA 40521 PROCEDURE INFORMATION: Exam: US Duplex Lower Extremity Veins; Vein mapping Exam date and time: 08/09/2022 5:33 PM Age: 82 years oldClinical indication: Screening exam; Pre op; Additional info: Bilateral vein bilateral mapping TECHNIQUE: Imaging protocol: Real-time duplex ultrasound of the extremities with 2-D guardado scale, color Doppler flow and spectral waveform [...] and signed by: Eric Edgar M.D. CC: BUSINESS INFO CONSULTANT; Salazar Hurd MD; Pamela PINO Technologist: Kavita Vera Trndcb Date/Time: 08/09/2022(1857) [email or web address] Orig Print D/T: S: 08/09/2022 (1857) Probe: PAGE 1 Signed Report- DUP EXTRACRANIAL [id number] 00:00:00 [facility] GADIEL MONTEMAYORName: BRENNAN AHN : 1940 Sex: M Name: BRENNAN AHN [facility] Gadiel Montemayor : 1940 Age/S: 82 / M [address] [place] [address] Blvd Unit #: [id number] Loc: [place] [address] Phys: Pamela Burnette Acct: [id number] Dis Date: Status: ADM IN PHONE #: [phone] Exam Date: 08/09/2022 1750 FAX #: [phone] Reason: Pre cabg EXAMS: CPT CODE: [id number] DUP EXTRACRANIAL ANCA 09288 PROCEDURE INFORMATION: Exam: US Duplex Bilateral Extracranial Arteries, Carotid Arteries Exam date and time: 08/09/2022 5:25 PM Age: 82 years oldClinical indication: Screening exam; Patient HX: Pre op; Additional info: Pre cabg TECHNIQUE: Imaging protocol: Real-time Duplex ultrasound scan of the bilateral carotid and vertebral arteries combining guardado scale, color Doppler and spectral waveform analysis. [...] limits. Left external carotid artery: No stenosis inthe origin. Left vertebral artery: Unremarkable. Antegrade flow. IMPRESSION: No carotid arterial stenosis. REFERENCES: SRU CRITERIA. The degree of internal carotid artery stenosis is based on criteria defined by the Society of Radiologists in Ultrasound (SRU). Normal is no stenosis. Mild is less than 50% stenosis. Moderate is 50-69% stenosis. Severe is greater than 69% stenosis to near occlusion.Near occlusion is a markedly narrowed lumen. Total occlusion is no detectable patent lumen. at 1917 Reported and signed by: Aniket Loredo M.D. PAGE 1 Signed Report (CONTINUED) Name: MARITZABRENNAN GERRY [facility] [place] : 1940 Age/S: 82 / M [address] [place] [address] Unit #: [id number] Loc: [facility] [place] [address] Phys:Pamela Burnette Acct: [id number] Dis Date: Status: ADM IN PHONE #: [phone] Exam Date: 08/09/2022 175 FAX #: [phone] Reason: Pre cabg EXAMS: CPT CODE: [id number] DUP EXTRACRANIAL ANCA 36414 (Continued) CC: BUSINESS INFO CONSULTANT; Salazar Hurd MD; Pamela PINO Technologist:Kavita Vera Trndcb Date/Time: 08/09/2022 (1916) Lucy.TDO Orig Print D/T: S: 08/09/2022 (1916) Probe: PAGE 2 Signed Report- CT CHEST W/O HSMBGTPI4124-12-04 00:00:00 [facility] : 1940 Sex: M Name: BRENNAN AHN [facility] : 1940 Age/S: 82 / M [address] [place] [address] Blvd Unit #: [id number] Loc: [place] [address] Phys: Pamela Burnette Acct: [id number] Dis Date: Status: ADM IN PHONE #: [phone] Exam Date: 08/09/2022 1715 FAX #: [phone] Reason: Pre cabg EXAMS: CPT CODE: [id number] CT CHEST W/O CONTRAST 33408 PROCEDURE INFORMATION: Exam: CT Chest Without Contrast; Diagnostic Exam date and time: 08/09/2022 5:11 [...] patient has received 0 known CTs and 0known cardiac nuclear medicine studies in the 12 months prior to the current study. COMPARISON: DXXR CHEST 2 V 08/09/2022 5:02 PM FINDINGS: [...] Ectatic, nonaneurysmal aortic root measuring up to 37mm in transverse diameter. Sinotubular junction and mid [...] PAGE 1 Signed Report (CONTINUED) Name: BRENNAN AHN [facility] [place] : 1940 Age/S: 82 / M [address] [place] [address] Blvd Unit #: [id number] Loc: [place] [address] Phys: Pamela Burnette Acct: [id number] Dis Date: Status: ADM IN PHONE #: [phone] Exam Date: 08/09/2022 1715 FAX #: [phone] Reason: Pre cabg EXAMS: CPT CODE: [id number] CT CHEST W/O CONTRAST 94939 (Continued) Bones/joints: Severe thoracic spondylosis without destructive bone lesions. Soft tissues: Unremarkable. IMPRESSION: 1. Ectatic, nonaneurysmal aortic root (37 mm) with fhti-pl-tcnuzjjn calcification. 2.Remaining thoracoabdominal aorta is normal in caliber. 3. Significant calcification along the ascending aorta to preclude coronary graft implantation given history. 4. Cardiomegaly with severe multivessel coronary atherosclerosis. 5. Old granulomatous disease and chronic active atypical infection with a tree-in-bud configuration. 6. Partially imaged bilateral renal cysts, incompletely characterized. This can be followed with routine non emergent ultrasound further characterization, if indicated. COMMENTS: Consistent with the [place] [employer]'s Incidental Findings Committee white paper (J Am Parminder Radiol 2018): Any incidental renal lesion less than 1 cm or classified as too small to characterize, or any incidental cystic renal lesion characterized as simple-appearing, is likely benign. No follow-up imaging is recommended for these lesions per consensus recommendations basedon imaging criteria. at 1925 Reported and signed by: Brandon Beth M.D. CC: BUSINESS INFO CONSULTANT; Salazar Hurd MD; Pamela PINO Technologist:RT Juan(R)(CT) CTDI: DLP: Trnscb Date/Time:08/09/2022 (1924) [email or web address] Orig Print D/T: S: 08/09/2022 (1925) PAGE 2 Signed Report History and Physical Notes Date/Time Note Provider Source 2023-06-06 09:25:40 mwxAwUQSJFFefy60vUAI ZjCRmLiOz7d6N2QAKCQQ9d FkCzpgnXDbvgUs2n6UPyQL6899-63-63Z41:25:40F ormatting of this note might be different from the original.H&P UpdateH&P was reviewed and the patient was examined and there was no change in the patient's condition. 12262-8Hwykabq and physical isonVS1811-95-23R17:25:50History and physical noteTXT1.2.840.614599.1.13.104.2.7.2.63680 9|[id number] for patient ixmq13291-2Rmqyllv and physical noteLNNARRATIVEFormatted C-CDA narrative text[address] Bi[id number] VVLOFGVWVUDYIKHB5487-40-45H36:25:501.2.840 .897788.1.72.3.15|1.2.840.310314.1.13.104. 2.7.2.727879_1990466665 [facility] Notes Date/Time Note Provider Source 2023-06-12 11:43:06 /T0QVwC3Vzm84SLtzj5qgjrd3RYZOU91Sklyb OPh2erR5F+Ku5Ch4F2t/D6qY3QS9468-50-52 T11:43:06 Requested PrescriptionsRefused Prescriptions Disp RefillsRIVASTIGMINE TARTRATE 1.5 mg capsule [Pharmacy Med Name: RIVASTIGMINE 1.5MG CAPSULE] 60 capsule 11Sig: TAKE 1 CAPSULE BY MOUTH EVERY MORNING AND EVENING.Refused By: Francois HINDS for Refusal: Refill not appropriateDose expected to be increased at NOV 07/09/23. ANIYAH 06/05/23 82764-0Ghskyggmc encounter CfnnCY7316-06-35J47:47:15Telephone encounter NoteTXT1.2.840.968405.1.13.104.2.7.2. 990483|[id number] for patient vqxg39255-5UhzyQAFPZWTUXLGZdfxafpvy C-CDA narrative xfqv816998927Ikqzey Phillips [address] Yy[id number] RUYYQMFYNSDOGNVRENUWD5948-03-73A19:47 :151.2.840.644590.1.72.3.15|1.2.840.1 11814.1.13.104.2.7.2.727879_[id number] 6 Mary Hinds [employer] [facility] 2023-05-30 12:56:46 E3RHXiDvtA6ml04ZUhioZNQr8+Wl24z/+KWVy 8DRCxClfqqfr3lFATdco0ZT+Uxu5917-39-78 T12:56:46 Images from the original note were not included.Pre-op call completed in two calls, one with patient's daughter and one with nurse Louisa at [facility] in [place], [place].Your procedure is at [facility] on 06/06/22. The address is [address] [place] [address], [facility]. [facility] nursing staff will call you the workday before your procedure to let you know what time to arrive.On the day of your procedure, please go inside that door and check in at the desk.Please note: You may not travel home alone and that includes in a taxi or by bus. We must speak to your Responsible Adult (who will be picking you up) the morning of your procedure, before the start of your procedure. This person must be an adult over the age of 18 years of age.Do not eat any solid food after midnight the night before surgery. You may have sips of clear liquids such as water, gatorade, and sprite up until two hours before your scheduled procedure.You may take your medications with a sip of water as directed by physician.Anticoagulants will be per physician guidance. Medication Note(s)/Instructions:Will continue ASA and Plavix per MD instruction.Pending screening, we may test for COVID. If a patient tests positive, their cases are cancelled and/or rescheduled. COVID SCREENING NOTE: Denies COVID symptoms, no testing required.Additional requests, questions, concerns:None at this time. CB number provided to both daughter and memory care facility.Patient verbalized understanding of pre-op instructions and voiced no further questions at this time. 25964-2Wbjqt DimqGY0335-31-85Y83:36:36Nurse NoteTXT1.2.840.471299.1.13.104.2.7.2. 343963|[id number] for patient kjii36822-0HkxuVIABUBEHBRFLiqrplilb C-CDA narrative boia127107390Qegqr L [address] RNUT[address] SnvdYfrxpmmhnCycdqntcfGQEB6660833300P IDGFNFYBCLTFXYFVTFVXH0539-96-96T30:36 :361.2.840.635574.1.72.3.15|1.2.840.1 88841.1.13.104.2.7.2.727879_[id number] 5 Delma Walker RN [facility] 2022-09-02 05:10:00 [id number]9 lD8Oo27jvTkPJefexafacGqFAniQm3f7h+sf9 Oc0003-33-98X81:10:00 [facility] Dis[facility] SummaryREPORT#:[id number] REPORT STATUS: SignedDATE:09/02/22 TIME: 05 PATIENT: BRENNAN AHN UNIT #: [id number]#: [id number] [address] AGE: 82 SEX: M ATTEND: Arthur Fuentes MDADM AUTHOR: Florentino Jimenez * ALL edits or amendments must be made on the electronic/computer document * Objective Physical ExamVS:Last Documented: Result Date Time Pulse Ox 96 09/01 2332 B/P 138/73 09/01 2332 B/P Mean 94.4 09/01 2332 O2 Delivery Room air 09/01 2332 Temp 98.1 09/01 2332 Pulse 66 09/01 2332 Resp 18 09/01 2332 FiO2 21 08/29 0229 PATIENT WEIGHT: Weight (lb): 221Weight (oz): 9.03Weight (kg): 100.500 General appearance: alert, awakePsych: alert, normal affectHEENT: anicteric, mucosal membranes moist, pupils reactive to light, sclera clearNeck: non-tender, supple, no JVDCardiovascular: irregular rhythm, S1/S2, cap refill wnl, pulses intactRespiratory: diminished breath sounds, on oxygen, aerating wellAbdomen: bowel sounds present, non-distended, soft, non-tenderSkin: dry, normal temperature, no rash, bruising R thigh, mild L thigh, BUE, R hand Sl tender/edema, sternum incision RSH site CDI, bruising L chest wall, mildly tender, R elbow abrasionMusculoskeletal - general: Musculoskeletal - general: OA changes, normal tone, no swelling, Moves all 4 exts AG, calves NT, no cords, Homans negNeuro/TEAROOM HOST/HOSTESS: alert, CNII-XII intact, normal speech, no motor deficits, no sensory deficits Functional ProgressFunctional progress:The data set between the solid lines has been imported from multidisciplinary team documentation. FUNCTIONAL ACTIVITY ADMISSION STATUS DISCHARGE STATUS Toilet hygiene Substantial/max (2) Dependent (1) Toilet transfer Not applicable (9) Dependent (1) Eating Independent (6) Independent (6) Shower/bathing Substantial/max (2) Supervision/touch (4) Dressing upper body Partial/moderate (3) Setup or cleanup (5) Dressing lower body Partial/moderate (3) Setup or cleanup (5) Transfer to/from bed to chair Partial/moderate (3) Supervision/touch (4) Wheel 50ft w/ 2 turns Supervision/touch (4) Supervision/touch (4) Wheel 150 ft Partial/moderate (3) Supervision/touch (4) Walk 50 ft w/ 2 turns Not attempted (88) Supervision/touch (4) Walk 150 ft Not attempted (88) Partial/moderate (3) Four steps Supervision/touch (4) General Information General InformationDate of admission:Date of admission: 08/16/22 Discharge date: 09/02/22Admission diagnosis:Multivessel CAD3/9: S/p CABG x5-Dr. Lind-fib s/p a LAAEndoscopic RGSV harvest08/16: Echo-EF 50-54%, small pericardial effusionSmall bilateral pleural effusions.Muscle weakness Unsteady gaitAlzheimer's dementiaPostoperative anemiaAKI on CKDHTNImpairment in self-care, ADLs and functional mobilityDischarge diagnosis:Multivessel CAD3/9: S/p CABG x5-Dr. Lind-fib s/p a LAAEndoscopic RGSV harvest08/16: Echo-EF 50-54%, small pericardial effusionSmall bilateral pleural effusions.Muscle weakness Unsteady gaitAlzheimer's dementia (as per family), poor memoryPostoperative anemiaAKI on CKDHTNImpairment in self-care, ADLs and functional mobilityHospital course:82-year-old male with PMH of Alzheimer's dementia, CKD, HTN, atrial fibrillation, history of SVT/ablation who was transferred to [facility] ED after being foundto have multivessel coronary artery disease. Patient initially with was at homeand developed chest pains. [facility] which revealed multivessel CAD. Patient evaluated here by cardiothoracic surgery and underwent CABG x5 on 08/10. Patient with postoperative anemia and significant impairment in mobility. Pt is progressing slowly with therapy d/t weakness, self care deficit, decreased endurance and balance, and decreased functional mobility. Pt requiring acute inpt rehab for multidisciplinary team of nursing, therapy, and physicians. Pt is willing and able to participate in 3 hr/day inpt rehab to d/c home safely. Daughter states pt's prior level of function was independent. Currently patient has generalizedweakness. He lives by himself in a one-step up house. He denies any shortness of breath, nausea, vomiting, fever, chills. Denies chest pain. He is complaining of some constipation. He tells me that is in the process of sellinghis home. Preadmission screen was completed. Patient admitted to IRF. While here patient made fair to good functional progress. Confusion was main barrier. He had a fall and required sitter for monitoring. Patient is unsafe to go homeand will be discharged to SNF today.Consultants: cardiology, cardiovascular surgery, hospitalist, nephrologyPt. condition on discharge: improvedAllergies:Allergies:Statins-H MG-CoA Reductase Inhibitor (Coded, Severe, UNKNOWN, 08/16/22) Discharge Instructions Discharge InstructionsAdditional Discharge Routines: PCP Follow-Up, Safety Sealer Follow-UpDiet: CardiacActivity: Sternal PrecautionsPrescriptions: on chartDischarge management: greater than 30 mins at 2124 RPT #:[id number] OF REPORTDSDischarge cjcfmqm8282-53-30Q74:10:00G.ZDXH64288 401-0050AVAvailable for patient imifTZLVNQCNFNKADW4866-37-65J19:24:48 [facility] 2022-09-01 14:12:00 [id number]/kc9cJoPVpaN/oCkkc t+WT/g6QwVKnVgXykev+cBlOtPGHVTt8YmsBO /M1465-03-60Y00:12:00 [facility] ([facility])Internal Medicine Prog. NoteREPORT#:[id number] REPORT STATUS: SignedDATE:09/01/22 TIME: 1411 PATIENT: BRENNAN AHN UNIT #: [id number]#: [id number] [address] AGE: 82 SEX: M ATTEND: Arthur Fuentes MDADM AUTHOR: eDvin Fox DO * ALL edits or amendments must be made on the electronic/computer document * SubjectiveChief complaint:pt s c/o. Review of SystemsAll systems rev neg: except as marked Objective GeneralVS/I O:Vital Signs Date Temp Pulse Resp B/P B/P Mean Pulse Ox FiO2 08/31-09/01 98.1-98.4 69-95 18 118-179/63-90 81.4-119.7 86-99 Last Documented: Result Date Time Pulse Ox 86 09/01 0659 B/P 142/75 09/01 0659 B/P Mean 97.3 09/01 0659 O2 Delivery Room air 09/01 0659 Temp 98.1 09/01 0659 Pulse 95 09/01 0659 Resp 18 09/01 0659 FiO2 21 08/29 0229 24 hour I O ending at 0700: 09/01 0700 08/31 1900 Intake Total 120 720 Output Total Balance 120 720 Intake, Oral 120 720 PATIENT WEIGHT: Weight (lb): 221Weight (oz): 9.03Weight (kg): 100.500 Medications:Active Meds + DC'd Last 24 HrsIpratropium [place] (ATROVENT) 500 MCG RTQ6H WA INH Amiodarone HCl (CORDARONE) 200 MG DAILY PO Midodrine (PROAMATINE) 5 MG AC BK DAVE PO Midodrine (PROAMATINE) 5 MG BID 9A 5P PRN PO Lidocaine (LIDODERM) 1 PATCH DAILY TOPICAL Lidocaine (LIDODERM) 1 PATCH DAILY TOPICAL Metoprolol Tartrate (LOPRESSOR) 12.5 MG Q12HR PO Duloxetine HCl (CYMBALTA) 60 MG BEDTIME PO Ezetimibe (ZETIA) 10 MG DAILY PO Aspirin (ASPIRIN) 81 MG DAILY PO Clopidogrel Bisulfate (Plavix) 75 MG DAILY PO Cyanocobalamin (Vitamin B-12 500 mcg tab) 500 MCG DAILY PO Ferrous Sulfate (FERROUS SULFATE) 325 MG DAILY PO Polyethylene Glycol (MIRALAX) 17 GM DAILY PO Pantoprazole (PROTONIX) 40 MG DAILY@0600 PO Budesonide (PULMICORT RESPULES) 0.5 MG RTBID INH Formoterol Fumarate (PERFOROMIST) 20 MCG RTBID NEB Docusate Sodium (COLACE) 100 MG BID PO Sennosides (Senna Lax 8.6 MG TABLET) 17.2 MG BEDTIME PO Hydralazine HCl (APRESOLINE) 10 MG Q6H PRN PRN IV Acetaminophen (TYLENOL) 650 MG Q4H PRN PRN PO Ipratropium [place] (ATROVENT) 500 MCG RTQ2H PRN PRN INH Melatonin (Melatonin) 6 MG BEDTIME PRN PO Ondansetron HCl (ZOFRAN ODT) 4 MG TID PRN PRN SL Physical ExamGeneral appearance: alert, awake, orientedHead/Eyes: EOMI, PERRLANeck: non-tender, no JVDCardiovascular: normal heart sounds, regular rate rhythmRespiratory: aerating well, clear to auscultationAbdomen: non-tender, normal bowel soundsExtremities: Extremities: no cyanosis, no edemaNeuro/TEAROOM HOST/HOSTESS: alert, oriented x 3, CNII-XII intactSkin: ecchymosis (l chest) Diagnosis, Assessment PlanHospital course to date:82-year-old male with past medical history of hypertension, atrial fibrillation,supraventricular tachycardia status post ablation who was admitted with reports of multivessel coronary artery disease found on a cardiac catheterization done at [facility]. Patient was transferred to [facility] for CABG. He underwent STJAp2g. 1. Coronary artery disease-Status post CABG x5, ALAA, PVI-Continue metoprolol, Plavix, aspirin 2. Atrial fibrillation-Continue po amiodarone for rate control- taper AMIO per cards-Continue metoprolol-Monitor and review telemetry 3. Debility/-.-PT/OT- PMR- Inpt Rehab 4. ARF/ckd- Trend cr 1.3-1.9-2.2-2.0-1.9-2.2-1.8- post op, post lasix therefore likely pre-renal- baseline CKD is suspected- nephro consulted- US RENAL- BILAT Cysts 5. anemia- acute, post op expecteed- monitor and transfuse if hg <7- cont po Iron- Trend Hg 9.1-9.7 6. Delirium/ dementia-Likely due to sundowning/dementia-Monitor closely-Patient is neurologically intact 7. FALLs- 08/22, 08/24- ct head neg- R shoulder Xr neg- R elbow pain- mild- pain meds prn- sitter at bedside prn 8. Dysuria- UA neg- on pyridium prn- consider Urologist consult 9. Orthostatic hypotension- cont Midodrine and adjust up - check orthostatic VS- mild orthostasis 10. RIB fx- 08/24 Left RIb xr -HEALING L 7th and 8th rib fractures- unknown chronicity - ribs fractures show "healing" ALREADY d/w RN and Pt and son in detailspt awaits SNF transfertotal time spent 35mins Consultants: cardiology, cardiovascular surgery, hospitalist, nephrology Quality: Gen Med Crit Care Current MedicationsCurrent medication review:I attest that the foregoing medication list in the medical record is true, accurate, and complete to the best of my knowledge. Advanced Care Plan 65 or OlderDiscussed with: patientDiscussion included: code status at 0917 RPT #:[id number] OF REPORTPRProgress hoky1000-94-82M50:12:00G.UHDJ86862822 -0994AVAvailable for patient tokzWLZGZWXLAAPVTX7273-46-51E81:18:55 [facility] 2022-09-01 12:47:00 [id number]h WTKU6/0246y/jawiMb0wziFk6+Sr4ieXjqhzB RR2451-59-60Z16:47:00 [facility] ([facility])Cardiology Progress NoteREPORT#:[id number] REPORT STATUS: SignedDATE:09/01/22 TIME: 1247 PATIENT: BRENNAN AHN UNIT #: [id number]#: [id number] [address] AGE: 82 SEX: M ATTEND: Arthur Fuentes MDADM AUTHOR: Logan Calix MD * ALL edits or amendments must be made on the electronic/computer document * Subjective Free Text Subj NotesFree Text Subj Notes:Doing okay, have a sitter at the bedside Objective GeneralVS/I O:24 hour I O ending at 0700: 09/01 0700 08/31 1900 Intake Total 120 720 Output Total Balance 120 720 Intake, Oral 120 720 Vital Signs: Date Time Temp Pulse Resp B/P B/P Pulse O2 O2 Flow FiO2 Mean Ox Delivery Rate 09/01 0659 98.1 95 18 142/75 97.3 86 Room air 08/31 2351 98.1 73 18 131/70 90.3 94 08/31 2026 99 Room air 08/31 1906 98.4 69 18 118/63 81.4 95 08/31 1537 98.2 74 18 179/90 119.7 96 Room air PATIENT WEIGHT: Weight (lb): 221Weight (oz): 9.03Weight (kg): 100.500 Medications:Active Meds + DC'd Last 24 HrsIpratropium [place] (ATROVENT) 500 MCG RTQ6H WA INH Amiodarone HCl (CORDARONE) 200 MG DAILY PO Midodrine (PROAMATINE) 5 MG AC BK DAVE PO Midodrine (PROAMATINE) 5 MG BID 9A 5P PRN PO Lidocaine (LIDODERM) 1 PATCH DAILY TOPICAL Lidocaine (LIDODERM) 1 PATCH DAILY TOPICAL Metoprolol Tartrate (LOPRESSOR) 12.5 MG Q12HR PO Duloxetine HCl (CYMBALTA) 60 MG BEDTIME PO Ezetimibe (ZETIA) 10 MG DAILY PO Aspirin (ASPIRIN) 81 MG DAILY PO Clopidogrel Bisulfate (Plavix) 75 MG DAILY PO Cyanocobalamin (Vitamin B-12 500 mcg tab) 500 MCG DAILY PO Ferrous Sulfate (FERROUS SULFATE) 325 MG DAILY PO Polyethylene Glycol (MIRALAX) 17 GM DAILY PO Pantoprazole (PROTONIX) 40 MG DAILY@0600 PO Budesonide (PULMICORT RESPULES) 0.5 MG RTBID INH Formoterol Fumarate (PERFOROMIST) 20 MCG RTBID NEB Docusate Sodium (COLACE) 100 MG BID PO Sennosides (Senna Lax 8.6 MG TABLET) 17.2 MG BEDTIME PO Hydralazine HCl (APRESOLINE) 10 MG Q6H PRN PRN IV Acetaminophen (TYLENOL) 650 MG Q4H PRN PRN PO Ipratropium [place] (ATROVENT) 500 MCG RTQ2H PRN PRN INH Melatonin (Melatonin) 6 MG BEDTIME PRN PO Ondansetron HCl (ZOFRAN ODT) 4 MG TID PRN PRN SL Physical ExamGeneral appearance: alert, awake, orientedNeck: non-tender, no JVDCardiovascular: CV assessment: irregularly irregularRespiratory: decreased breath sounds, no distressAbdomen: soft, non-tender, normal bowel sounds, no distentionGenitourinary: no flank pain, no urinary catheterLower extremity: LE assessment: no edemaMusculoskeletal: normal inspectionNeuro/TEAROOM HOST/HOSTESS: alertSkin: dryPsychiatry: normal affect, normal mood Diagnosis, Assessment Plan Free Text DxA P NotesFree Text DxA P Notes:82 YO male with MHX of Afib, HTN, HLD, CAD who is s/p 5 vessel CABG and PVI and ALAA. The patient is transferred to [facility] for inpatient rehabilitation. We are consulted for continuity of cardiac-related care. 1. CAD s/p CABG x 5 (NGUYEN-LAD, SVG-Olga Lidia, SVG-OM, SVG-LPLA, SVG-PDA) continue asa, BB, plavix, Zetiaecho 08/12- LVEF 50-54%, left pleural effusionintolerant of statin, will consider nonstatin med such as Repatha or Nexletol outpatient 2. A-fib: Paroxysmal - rate controlleds/p PVI and ARISTEO amputationdecrease amiodarone to 200 mg daily - DC prior to dischargeContinue low-dose metoprolol 12.5 mg BID no need for AC since left atrial appendage was removed during CABG 3. HTN BP stable on midodrineContinue low-dose metoprolol 12.5 mg BID 4. AKInephrology following 5. Dizziness 2/2 orthostatic hypotension midodrine for orthostatic hypotensioncompression stocking and abdominal binder before OOB dizziness resolved 6. s/p Fall 08/22 and 08/24CT head no acute findingR Elbow XR - no fractureL rib XR -healing fractures of the left lateral seventh and eighth ribs continue supportive careoutpatient follow-up with Dr. Rollins management assisting with discharge placement. at 1402 RPT #:[id number] OF REPORTPRProgress [id number]:47:00G.[id number] for patient aihwIVXXAYCXIJDKOP5494-04-91L09:02:21 [facility] 2022-09-01 05:03:00 [id number]+SvY8PlA jFjx0tHIdT6dXUxLc/3ukqFG+kdsJDUNZQYox [id number]:03:00 [facility])Rehab Progress NoteREPORT#:[id number] REPORT STATUS: SignedDATE:09/01/22 TIME: 0503 PATIENT: BRENNAN AHN UNIT #: [id number]#: [id number] [address] [birth year] AGE: 82 SEX: M ATTEND: Arthur Fuentes [facility] AUTHOR: Florentino Jimenez * ALL edits or amendments must be made on the electronic/computer document * Florentino Jimenez 09/01/22 0503:SubjectiveChief complaint:Rehab follow-upDoing betterStill requires sitterNADEating well+ BMDenies MORA/N/V/D/CP14 systems reviewed and neg. except that above.History of present illness:82-year-old male with PMH of Alzheimer's dementia, CKD, HTN, atrial fibrillation, history of SVT/ablation who was transferred to [facility] ED after being foundto have multivessel coronary artery disease. Patient initially with was at homeand developed chest pains. [facility] which revealed multivessel CAD. Patient evaluated here by cardiothoracic surgery and underwent CABG x5 on 08/10. Patient with postoperative anemia and significant impairment in mobility. Pt is progressing slowly with therapy d/t weakness, self care deficit, decreased endurance and balance, and decreased functional mobility. Pt requiring acute inpt rehab for multidisciplinary team of nursing, therapy, and physicians. Pt is willing and able to participate in 3 hr/day inpt rehab to d/c home safely. Daughter states pt's prior level of function was independent. Currently patient has generalizedweakness. He lives by himself in a one-step up house. He denies any shortness of breath, nausea, vomiting, fever, chills. Denies chest pain. He is complaining of some constipation. He tells me that is in the process of sellinghis home. Preadmission screen was completed. Patient admitted to IRF. Objective GeneralVS:Vital Signs: Date Time Temp Pulse Resp B/P B/P Pulse O2 O2 Flow FiO2 Mean Ox Delivery Rate 08/31 2351 98.1 73 18 131/70 90.3 94 08/31 2026 99 Room air 08/31 1906 98.4 69 18 118/63 81.4 95 08/31 1537 98.2 74 18 179/90 119.7 96 Room air 08/31 0727 98.4 78 18 157/77 103.9 96 Room air PATIENT WEIGHT: Weight (lb): 221Weight (oz): 9.03Weight (kg): 100.500 Medications:Active Meds + DC'd Last 24 HrsIpratropium [place] (ATROVENT) 500 MCG RTQ6H WA INH Amiodarone HCl (CORDARONE) 200 MG DAILY PO Midodrine (PROAMATINE) 5 MG AC BK DAVE PO Midodrine (PROAMATINE) 5 MG BID 9A 5P PRN PO Lidocaine (LIDODERM) 1 PATCH DAILY TOPICAL Lidocaine (LIDODERM) 1 PATCH DAILY TOPICAL Metoprolol Tartrate (LOPRESSOR) 12.5 MG Q12HR PO Duloxetine HCl (CYMBALTA) 60 MG BEDTIME PO Ezetimibe (ZETIA) 10 MG DAILY PO Aspirin (ASPIRIN) 81 MG DAILY PO Clopidogrel Bisulfate (Plavix) 75 MG DAILY PO Cyanocobalamin (Vitamin B-12 500 mcg tab) 500 MCG DAILY PO Ferrous Sulfate (FERROUS SULFATE) 325 MG DAILY PO Polyethylene Glycol (MIRALAX) 17 GM DAILY PO Pantoprazole (PROTONIX) 40 MG DAILY@0600 PO Budesonide (PULMICORT RESPULES) 0.5 MG RTBID INH Formoterol Fumarate (PERFOROMIST) 20 MCG RTBID NEB Docusate Sodium (COLACE) 100 MG BID PO Sennosides (Senna Lax 8.6 MG TABLET) 17.2 MG BEDTIME PO Hydralazine HCl (APRESOLINE) 10 MG Q6H PRN PRN IV Acetaminophen (TYLENOL) 650 MG Q4H PRN PRN PO Ipratropium [place] (ATROVENT) 500 MCG RTQ2H PRN PRN INH Melatonin (Melatonin) 6 MG BEDTIME PRN PO Ondansetron HCl (ZOFRAN ODT) 4 MG TID PRN PRN SL Functional ProgressFunctional progress:PT daily note comment: S: PT REPORTS NO COMPLAINTS OF PAIN WITH ACTIVITIES IN THERAPY. O: PT WAS SEEN FOR 90MIN OF THERAPY BEGINNING W/ASSIST WITH DRESSING THREAD PANTS PT ABLE TO LIFT UP,DON ENZO HOSE AND BINDER,SHOES PT TRANSFER FROM BED<>WC MIN-A CUES TO MAINTAIN STERNAL PRECAUTIONS.ASSIST PT TO REST ROOM MIN A WITH STAND STEP TRANSFER EXTRA TIME DUE TO BOWEL MOVMENET PTREPORTS HE WAS GIVEN A STOOL SOFTNER.PT ABLE TO WIPE SELF EXTRA TIME.REQUIRE REMINDERS TO TURN WATER TO WASH HAND,REMINDERS OF WHERE SOAP IS WHERE PAPER TOWELS ARE.GAIT TRAINING WITH RW MOD -A TODAY PT OCC IMPULSIVE TALKING TO PATIENTS IN HALLWAY LOB MULTIPLE TIMES PT AMB 180;,50' REPETITION WITH SAFETY CUES,STAIR TRAINING 12 STEPS,2 RAILS MIN-ADUE TO COG DEFICITS. MARCHING IN PLACE IN STANDING,REACHING AND LIFTING OBJECTS OFF FLOOR WITH A PLASTIC HOOK TOLERATED WELL SLOW MVOING EXTRA TIME.THER-EX IN SITTING IB LE IN ALLPLANES 10 REPS,2 SETS. WC MOBILTIY 180'VC FOR SAFETY.EDUCATE PT ON SAFETY WITH TRANSFERS,SAFETY W/FALL PREVENTION,FALL RECOVERY,SAFETY W/RW MGMT. A; PT LIMITED WITH THERAPY DUE TO MEMORY AND COG DEFICITS VERY IMPULSIVE.COMPLETES ALL ACTIVITIES WITH LENGTHY REST STOPS. Physical ExamGeneral appearance: alert, awakePsych: alert, normal affectHEENT: anicteric, mucosal membranes moist, pupils reactive to light, sclera clearNeck: non-tender, supple, no JVDCardiovascular: irregular rhythm, S1/S2, cap refill wnl, pulses intactRespiratory: diminished breath sounds, on oxygen, aerating wellAbdomen: bowel sounds present, non-distended, soft, non-tenderSkin: dry, normal temperature, no rash, bruising R thigh, mild L thigh, BUE, R hand Sl tender/edema, sternum incision RSH site CDI, bruising L chest wall, mildly tender, R elbow abrasionMusculoskeletal - general: Musculoskeletal - general: OA changes, normal tone, no swelling, Moves all 4 exts AG, calves NT, no cords, Homans negNeuro/TEAROOM HOST/HOSTESS: alert, CNII-XII intact, normal speech, no motor deficits, no sensory deficits ResultsFindings/Data:Laboratory Tests 08/30 0515 Chemistry Sodium (134 - 147 mEq/L) 140 Potassium (3.4 - 5.0 mEq/L) 4.2 Chloride (100 - 108 mEq/L) 103 Carbon Dioxide (21 - 33 mEq/l) 28 Anion Gap (0 - 20) 13 BUN (7 - 18 mg/dL) 19 H Creatinine (0.6 - 1.3 mg/dL) 1.8 H Glomerular Filtr Rate (70 - 80) 37.6 L Glucose (70 - 110 mg/dL) 98 Calcium (8.0 - 10.5 mg/dL) 9.1 Ionized Calcium Suzanna (1.09 - 1.30 MMOL/L) 1.16 Laboratory Tests 08/29 0510 Serology SARS-CoV-2 Ag (Rapid) (Negative) Negative Diagnosis, Assessment PlanFree Text A P:Assessment:Multivessel CAD3/9: S/p CABG x5-Dr. Lind-fib s/p a LAAEndoscopic RGSV harvest15: Echo-EF 50-54%, small pericardial effusionSmall bilateral pleural effusions.Muscle weakness Unsteady gaitAlzheimer's dementia (as per family), poor memoryPostoperative anemiaAKI on CKDHTNImpairment in self-care, ADLs and functional mobility Plan:-Continue PT/OT-Case management for safe discharge planning.-Decubitus prevention-protective hydrating lotion-turn every 2 zppdn-mezsbrt-Vjesa program-MiraLAX, senna-Nutrition, monitor the patient's p.o. intake, check albumin 3.5, 3.2 and prealbumin 14.3, 12, dietary consult, protein supplements. Cardiac diet. BMI above normal parameters. Working with dietary, follow up with PCP-Strict fall and safety precaution-DVT krffrkanbwl-ESRz-KZ prophylaxis on Protonix-CAD on Plavix and aspirin, intolerant to statins-Pulmonary toilet frequent I-S, nebs, wean O2-Early mobilization-OOB to chair-Work on bed mobility, transfer training, ADLs, pre-gait and gait exercises as tolerable. -Increase endurance and strength-Pain management-Postop care as per CVS-Monitor telemetry-Cardiology on case-LADARIUS as per nephrology-He was following specialist managers in [place] so plan to refer to his specialist managers post discharge. Stable renal function as per nephrology.-Dementia/confusion-Higher level of nursing care and monitoring for safety-Strict sternal precautions-patient with poor carryover of sternal precautions-Monitor sites of bruising and right hand pain-from previous phlebotomy sites-nosigns of bmvjwzrhy-Falcui-tpqsfhc B12 and ferrous iviqjzn-VXF-DA stable-orthostasis/dizziness-diuretic s reduced-midodrine 5 mg twice daily-use ENZO hose and abdominal binder when out of bed-monitor. Medications being monitored by cardiology-Removed sutures x2 from lower chest on 08/2577-lxvfxi-Solala-up with PCP for dementia nxwddpcait-Jydhhyv-FP negative-completed Pyridium-symptoms resolved-08/22: Fall: Seen by trauma team after fall. CT head negative. Right shoulder x-ray negative for fracture. Patient patient appears to be at his baseline-08/24: Fall-no head injury-left rib pain-left rib film-no acute fractures, healing fractures of the left lateral 7th and 8th ribs. Small left pleural effusion-Lidoderm gjujh-vrrsyhb-B elbow hurting more. 2 view R elbow x ray-no acute fracture-Lidoderm patch-pain management-Stable cardiac status-08/28 retroperitoneal ultrasound-bilateral renal simple cysts-no follow-up needed-Labs reviewed-WBC normal, hemoglobin 9.1, 8.9, 9.7 platelets stable, creatinine1.9, 2.2, 1.9, 1.8 magnesium normal, HgbA1C 5.2. -Advance therapies as tolerable -Case discussed with son-1:1 sitter due to multiple falls/safety issues, alert and oriented to 0-0-Zrxilhcgatr with binder and ENZO hose improving. Midodrine dose increased. -Patient making fair progress but limited due to memory and cognitive deficits. Patient impulsive at times.-infrastructure project manager checking on authorization for [facility]. Insurance planningon denying SNF. P2P to be done by Dr. FuentesHpfwkntdr-wmrawq-kmwghr pending PM RPlease see team note.Plan and goals discussed with the patient. I agree with the teams findingELOS: [pending SNF acceptance]DC-SNF placement-awaiting insurance authorization for [facility]-on appealDME-bedside commode, rolling walker Total time was 33 minutes > 50% with patient performing physical examination, discussing with patient about appeal for SNF, sitter, fall precaustions, discharge plans, sternal precautions, plan of care, goals, therapies, progress, medications, labs. All questions answeredRehab attestation:Face to face exam completed. Treatment plan discussed with patient. Meets continued stay criteria. Agree with interdisciplinary treatment plan. Arthur Fuentes 09/01/22 1140:Attestations Physician AttestationAgree w/findings plan:Pt seen and examined by me. Agree with the findings and plan as documented by Florentino Jimenez NP at 1141 at 2130 [facility] #:[id number] OF REPORTPRProgress [id number]:03:00G.[id number] for patient yhfyGLRSEXFPCXIBZE7264-31-35G14:41:28 [facility] 2022-08-31 14:52:00 [id number] +dHldsTzAU56HpsXJlEzghkFMzwjQxmJZ0E Tb0819-28-91M92:52:00 [facility] HospitalInternal Medicine Prog. NoteREPORT#:[id number] REPORT STATUS: SignedDATE:08/31/22 TIME: 1452 PATIENT: BRENNAN AHN UNIT #: [id number]#: [id number] ROOM[facility]BED: [facility]DOB: [birth year] AGE: 82 SEX: M ATTEND: Arthur Fuentes [facility] AUTHOR: Devin Fox DO * ALL edits or amendments must be made on the electronic/computer document * SubjectiveChief complaint:pt c/o of some cough and pain in SS chest as a result Review of SystemsAll systems rev neg: except as marked Objective GeneralVS/I O:Vital SignsDate Temp Pulse Resp B/P B/P Mean Pulse Ox KdU390/29-08/31 97.7-98.4 64-78 17-18 155-168/68-83 96.6-111.2 96-97 Last Documented: Result Date Time Pulse Ox 96 08/31 07 B/P 157/77 08/31 07 B/P Mean 103.9 08/31 0727 O2 Delivery Room air 08/31 726 Temp 98.4 08/31 07 Pulse 78 08/31 0727 Resp 18 08/31 07 FiO2 21 08/29 0229 24 hour I O ending at 0700: 08/31 0700 08/30 1900 Intake Total 120 715 Output Total Balance 120 715 Intake, Oral 120 715 PATIENT WEIGHT: Weight (lb): 221Weight (oz): 9.03Weight (kg): 100.500 Medications:Active Meds + DC'd Last 24 HrsIpratropium [place] (ATROVENT) 500 MCG RTQ6H WA INH Amiodarone HCl (CORDARONE) 200 MG DAILY PO Midodrine (PROAMATINE) 5 MG AC BK DAVE PO Midodrine (PROAMATINE) 5 MG BID 9A 5P PRN PO Lidocaine (LIDODERM) 1 PATCH DAILY TOPICAL Lidocaine (LIDODERM) 1 PATCH DAILY TOPICAL Metoprolol Tartrate (LOPRESSOR) 12.5 MG Q12HR PO Duloxetine HCl (CYMBALTA) 60 MG BEDTIME PO Ezetimibe (ZETIA) 10 MG DAILY PO Aspirin (ASPIRIN) 81 MG DAILY PO Clopidogrel Bisulfate (Plavix) 75 MG DAILY PO Cyanocobalamin (Vitamin B-12 500 mcg tab) 500 MCG DAILY PO Ferrous Sulfate (FERROUS SULFATE) 325 MG DAILY PO Polyethylene Glycol (MIRALAX) 17 GM DAILY PO Pantoprazole (PROTONIX) 40 MG DAILY@0600 PO Budesonide (PULMICORT RESPULES) 0.5 MG RTBID INH Formoterol Fumarate (PERFOROMIST) 20 MCG RTBID NEB Docusate Sodium (COLACE) 100 MG BID PO Ipratropium [place] (ATROVENT) 500 MCG RTQ6H INH (DC) Sennosides (Senna Lax 8.6 MG TABLET) 17.2 MG BEDTIME PO Hydralazine HCl (APRESOLINE) 10 MG Q6H PRN PRN IV Acetaminophen (TYLENOL) 650 MG Q4H PRN PRN PO Ipratropium [place] (ATROVENT) 500 MCG RTQ2H PRN PRN INH Melatonin (Melatonin) 6 MG BEDTIME PRN PO Ondansetron HCl (ZOFRAN ODT) 4 MG TID PRN PRN SL Physical ExamGeneral appearance: alert, awake, orientedHead/Eyes: EOMI, PERRLANeck: non-tender, no JVDCardiovascular: normal heart sounds, regular rate rhythmRespiratory: aerating well, clear to auscultationAbdomen: non-tender, normal bowel soundsExtremities: Extremities: no cyanosis, no edemaNeuro/TEAROOM HOST/HOSTESS: alert, oriented x 3, CNII-XII intactSkin: ecchymosis (l chest) Diagnosis, Assessment PlanHospital course to date:82-year-old male with past medical history of hypertension, atrial fibrillation,supraventricular tachycardia status post ablation who was admitted with reports of multivessel coronary artery disease found on a cardiac catheterization done at [facility]. Patient was transferred to [facility] for CABG. He underwent WSVOv3j. 1. Coronary artery disease-Status post CABG x5, ALAA, PVI-Continue metoprolol, Plavix, aspirin 2. Atrial fibrillation-Continue po amiodarone for rate control- taper AMIO per cards-Continue metoprolol-Monitor and review telemetry 3. Debility/-.-PT/OT- PMR- Inpt Rehab 4. ARF/ckd- Trend cr 1.3-1.9-2.2-2.0-1.9-2.2-1.8- post op, post lasix therefore likely pre-renal- baseline CKD is suspected- nephro consulted- US RENAL- BILAT Cysts 5. anemia- acute, post op expecteed- monitor and transfuse if hg <7- cont po Iron- Trend Hg 9.1-9.7 6. Delirium/ dementia-Likely due to sundowning/dementia-Monitor closely-Patient is neurologically intact 7. FALLs- 08/22, 08/24- ct head neg- R shoulder Xr neg- R elbow pain- mild- pain meds prn- sitter at bedside 8. Dysuria- UA neg- on pyridium prn- consider Urologist consult 9. Orthostatic hypotension- cont Midodrine and adjust up - check orthostatic VS- mild orthostasis 10. RIB fx- 08/24 Left RIb xr -HEALING L 7th and 8th rib fractures- unknown chronicity - ribs fractures show "healing" ALREADY d/w RN and Pt and son in detailstotal time spent 35mins Consultants: cardiology, cardiovascular surgery, hospitalist, nephrology Quality: Gen Med Crit Care Current MedicationsCurrent medication review:I attest that the foregoing medication list in the medical record is true, accurate, and complete to the best of my knowledge. Advanced Care Plan 65 or OlderDiscussed with: patientDiscussion included: code status at 0917 RPT #:[id number] OF REPORTPRProgress [id number]:52:00G.[id number] for patient pmenEFUVOZOQXRBYPW3585-04-86B47:18:44 [facility] 2022-08-31 12:16:00 [id number] Aw1401-01-18X52:16:00 [facility])Cardiology Progress NoteREPORT#:[id number] REPORT STATUS: SignedDATE:08/31/22 TIME: 1216 PATIENT: BRENNAN AHN UNIT #: [id number]#: [id number] [place] [facility] [place] [birth year] AGE: 82 SEX: M ATTEND: Arthur Fuentes MDADM AUTHOR: Catrina Shetty AGACNAmbreen * ALL edits or amendments must be made on the electronic/computer document * SubjectivePatient reports:No: complaints. Objective GeneralVS/I O:24 hour I O ending at 0700: 08/31 0700 08/30 1900 Intake Total 120 715 Output Total Balance 120 715 Intake, Oral 120 715 Vital Signs: Date Time Temp Pulse Resp B/P B/P Pulse O2 O2 Flow FiO2 Mean Ox Delivery Rate 08/31 0727 36.9 78 18 157/77 103.9 96 Room air 08/30 2355 36.7 64 17 155/68 96.6 97 08/30 1917 36.5 74 18 168/83 111.2 97 Room air 08/30 1430 37.0 76 20 178/78 111.1 98 PATIENT WEIGHT: Weight (lb): 221Weight (oz): 9.03Weight (kg): 100.500 Medications:Active Meds + DC'd Last 24 HrsIpratropium [place] (ATROVENT) 500 MCG RTQ6H WA INH Amiodarone HCl (CORDARONE) 200 MG DAILY PO Midodrine (PROAMATINE) 5 MG AC BK DAVE PO Midodrine (PROAMATINE) 5 MG BID 9A 5P PRN PO Lidocaine (LIDODERM) 1 PATCH DAILY TOPICAL Lidocaine (LIDODERM) 1 PATCH DAILY TOPICAL Metoprolol Tartrate (LOPRESSOR) 12.5 MG Q12HR PO Duloxetine HCl (CYMBALTA) 60 MG BEDTIME PO Ezetimibe (ZETIA) 10 MG DAILY PO Aspirin (ASPIRIN) 81 MG DAILY PO Clopidogrel Bisulfate (Plavix) 75 MG DAILY PO Cyanocobalamin (Vitamin B-12 500 mcg tab) 500 MCG DAILY PO Ferrous Sulfate (FERROUS SULFATE) 325 MG DAILY PO Polyethylene Glycol (MIRALAX) 17 GM DAILY PO Pantoprazole (PROTONIX) 40 MG DAILY@0600 PO Budesonide (PULMICORT RESPULES) 0.5 MG RTBID INH Formoterol Fumarate (PERFOROMIST) 20 MCG RTBID NEB Docusate Sodium (COLACE) 100 MG BID PO Ipratropium [place] (ATROVENT) 500 MCG RTQ6H INH (DC) Sennosides (Senna Lax 8.6 MG TABLET) 17.2 MG BEDTIME PO Hydralazine HCl (APRESOLINE) 10 MG Q6H PRN PRN IV Acetaminophen (TYLENOL) 650 MG Q4H PRN PRN PO Ipratropium [place] (ATROVENT) 500 MCG RTQ2H PRN PRN INH Melatonin (Melatonin) 6 MG BEDTIME PRN PO Ondansetron HCl (ZOFRAN ODT) 4 MG TID PRN PRN SL Physical ExamGeneral appearance: alert, awakeNeck: non-tender, no JVDCardiovascular: CV assessment: irregularly irregularRespiratory: decreased breath sounds, no distressAbdomen: soft, non-tender, normal bowel sounds, no distentionGenitourinary: no flank pain, no urinary catheterLower extremity: LE assessment: no edemaMusculoskeletal: normal inspectionNeuro/TEAROOM HOST/HOSTESS: alertSkin: dryPsychiatry: normal affect, normal mood ResultsResults: no new labs, vital signs reviewed Diagnosis, Assessment Plan Free Text DxA P NotesFree Text DxA P Notes:82 YO male with MHX of Afib, HTN, HLD, CAD who is s/p 5 vessel CABG and PVI and ALAA. The patient is transferred to [facility] for inpatient rehabilitation. We are consulted for continuity of cardiac-related care. 1. CAD s/p CABG x 5 (NGUYEN-LAD, SVG-Olga Lidia, SVG-OM, SVG-LPLA, SVG-PDA) continue asa, BB, plavix, Zetiaecho 08/12- LVEF 50-54%, left pleural effusionintolerant of statin, will consider nonstatin med such as Repatha or Nexletol outpatient 2. A-fib: Paroxysmal - rate controlleds/p PVI and ARISTEO amputationdecrease amiodarone to 200 mg daily - DC prior to dischargeContinue low-dose metoprolol 12.5 mg BID no need for AC since left atrial appendage was removed during CABG 3. HTN BP stable on midodrineContinue low-dose metoprolol 12.5 mg BID 4. AKInephrology following 5. Dizziness 2/2 orthostatic hypotension midodrine for orthostatic hypotensioncompression stocking and abdominal binder before OOB dizziness resolved 6. s/p Fall 08/22 and 08/24CT head no acute findingR Elbow XR - no fractureL rib XR -healing fractures of the left lateral seventh and eighth ribs continue supportive careoutpatient follow-up with Dr. SanchezCase management assisting with discharge placement. at 1437 at 1402 RPT #:[id number] OF REPORTPRProgress [id number]:16:00G.[id number] for patient bftlEDITVBLZDHSJHZ4335-10-07E80:37:30 [facility] 2022-08-31 11:46:00 [id number]+2JFx WFIAxVDJ3jwh/FsuYu5xTc+RA6tRvd/qEcYFU [id number]:46:00 [facility] HospitalNephrology Progress NoteREPORT#:[id number] REPORT STATUS: SignedDATE:08/31/22 TIME: 1146 PATIENT: BRENNAN AHN UNIT #: [id number]#: [id number] [address] [birth year] AGE: 82 SEX: M ATTEND: Arthur Fuentes [facility] AUTHOR: Maura Terrazas MD * ALL edits or amendments must be made on the electronic/computer document * SubjectiveChief complaint:chest painHPI:82-year-old male known to have hypertension, atrial fibrillation, supraventricular tachycardia with requiring ablation presenting with multivesselcardiovascular disease and he underwent CABG 07/13/2022. He endorsed having kidney issues in the past and seeing a specialist managers at [place] but his kidney function had been stable since then.He developed oliguria,LADARIUS and hypervolemia post CABG but had now improved and was transferred to rehab. 08/31Patient appearing comfortable, he denied dizziness, SOB, nausea, orthopnea, cramping. Objective GeneralVS/I O:Vital Signs: Date Time Temp Pulse Resp B/P B/P Pulse O2 O2 Flow FiO2 Mean Ox Delivery Rate 09/01 1541 37.1 77 18 148/71 96.6 96 Room air 09/01 0659 36.7 95 18 142/75 97.3 86 Room air 08/31 2351 36.7 73 18 131/70 90.3 94 08/31 2025 99 Room air 08/31 1906 36.9 69 18 118/63 81.4 95 24 hour I O ending at 0700: 09/01 0700 08/31 1900 Intake Total 120 720 Output Total Balance 120 720 Intake, Oral 120 720 PATIENT WEIGHT: Weight (lb): 221Weight (oz): 9.03Weight (kg): 100.500 Physical ExamGeneral appearance: alert, awake, orientedHead/eyes: atraumatic, clear cornea, EOMIENT: moist mucous membranes, normal noseNeck: no JVD, no masses or swellingCardiovascular: normal heart sounds, regular rate and rhythmRespiratory: aerating well, clear to auscultationAbdomen: non-tender, softGenitourinary: no bladder distention, no flank painExtremities: no edema, no gangrene, no swelling Diagnosis, Assessment PlanFree Text A P:82-year-old male known to have hypertension, atrial fibrillation, supraventricular tachycardia with requiring ablation presenting with multivesselcardiovascular disease and he underwent CABG 07/13/2022. Transferred to rehab for therapy. Nephrology following for: 1. Acute kidney injury: Most likely prerenal as he recently had surgery. Renal function Improved.Plan to monitor. 2. Hypervolemia:Patient at high risk of volume overload so would reccommend lasix PO, lasix held due to hypotension .Volume improved. 3. Electrolytes: His electrolytes appear to be in normal range plan is to monitor and replace as needed. 4. HTN:Controlled with current medications.Plan to continue same.He develops orthostasis so medication doses minimised. 08/21 1. Acute kidney injury: Most likely prerenal as he recently had surgery. Resolving with better hemodynamics.His kidney function was stable plan was to monitor closely. 2. Hypervolemia:Patient at high risk of volume overload so would reccommend lasix PO .He recently developed orthostasis so dose reduced to 40 PO daily. Plan to increase lasix to Q12H and add midodrine for hypotension,patient is not dizzy anymore and he was tolerating Lasix at current dose. Plan was to monitor input and output closely. 3. Electrolytes: His electrolytes appear to be in normal range plan is to monitor and replace as needed. 4. HTN:Currently he develops orthostatic hypotension so not on any medications besides lasix and metoprolol. He was requiring midodrine to keep his blood pressures above 100 systolic. 08/22 1. Acute kidney injury: Most likely prerenal as he recently had surgery. Renal function Improved.Plan to monitor. 2. Hypervolemia:Patient at high risk of volume overload so would reccommend lasix PO, lasix held due to hypotension .Volume improved. 3. Electrolytes: His electrolytes appear to be in normal range plan is to monitor and replace as needed. 4. Hypotension: Midodrine dose increased .Plan to monitor. 08/23 1. LADARIUS on CKD: Patient with stable renal function. Plan to keepMAP>65 and avoidnephrotoxic agents. He was following specialist managers in [place] so plan to refer to his specialist managers post discharge. 2. Hypervolemia:Patient at high risk of volume overload so would reccommend lasix PO, lasix held due to hypotension .Volume improving slowly. 3. Electrolytes: His electrolytes appear to be in normal range plan is to monitor and replace as needed. 4. Hypotension: Midodrine dose increased .Plan to monitor. 08/24 1. LADARIUS on CKD: Patient with stable renal function. Plan to keepMAP>65 and avoidnephrotoxic agents. He was following specialist managers in [place] so plan to refer to his specialist managers post discharge. 2. Hypervolemia:Patient at high risk of volume overload so would reccommend lasix PO, lasix held due to hypotension .Volume stable. 3. Electrolytes: His electrolytes appear to be in normal range plan is to monitor and replace as needed. 4. Hypotension: Midodrine dose increased .Plan to monitor and increase midodrine if SBP<110. . LADARIUS on CKD: Patient with stable renal function. Plan to keepMAP>65 and avoidnephrotoxic agents. He was following specialist managers in [place] so plan to refer to his specialist managers post discharge. 2. Hypervolemia: .Volume stable.Plan to give lasix PRN .He is not tolerating daily dose due to hypotension. 3. Electrolytes: His electrolytes appear to be in normal range plan is to monitor and replace as needed. 4. Hypotension: Midodrine dose increased .Plan to monitor and increase midodrine if SBP<110. . LADARIUS on CKD: Patient with stable renal function. Plan to keepMAP>65 and avoidnephrotoxic agents. He was following specialist managers in [place] so plan to refer to his specialist managers post discharge. 2. Hypervolemia: .Volume stable.Plan to give lasix PRN .He is not tolerating daily dose due to hypotension. 3. Electrolytes: His electrolytes appear to be in normal range plan is to monitor and replace as needed. 4. Hypotension: Midodrine dose increased .Plan to monitor and increase midodrine if SBP<110. Consultants: cardiology, cardiovascular surgery, hospitalist, nephrology at 1837 RPT #:[id number] OF REPORTPRProgress [id number]:46:[id number] for patient [id number]:37:19 [facility] 2022-08-31 07:30:00 [id number] [id number]:30:00 [facility] ([facility])Rehab Progress NoteREPORT#:[id number] REPORT STATUS: SignedDATE:08/31/22 TIME: 729 PATIENT: BRENNAN AHN UNIT #: [id number]#: [id number] [address] AGE: 82 SEX: M ATTEND: Arthur Fuentes MDADM AUTHOR: Arthur Fuentes MD * ALL edits or amendments must be made on the electronic/computer document * SubjectiveChief complaint:Rehab follow-upDoing betterStill requires sitterNADEating well+ BMDenies MORA/N/V/D/CP14 systems reviewed and neg. except that above.History of present illness:82-year-old male with PMH of Alzheimer's dementia, CKD, HTN, atrial fibrillation, history of SVT/ablation who was transferred to [facility] ED after being foundto have multivessel coronary artery disease. Patient initially with was at homeand developed chest pains. [facility] which revealed multivessel CAD. Patient evaluated here by cardiothoracic surgery and underwent CABG x5 on 08/10. Patient with postoperative anemia and significant impairment in mobility. Pt is progressing slowly with therapy d/t weakness, self care deficit, decreased endurance and balance, and decreased functional mobility. Pt requiring acute inpt rehab for multidisciplinary team of nursing, therapy, and physicians. Pt is willing and able to participate in 3 hr/day inpt rehab to d/c home safely. Daughter states pt's prior level of function was independent. Currently patient has generalizedweakness. He lives by himself in a one-step up house. He denies any shortness of breath, nausea, vomiting, fever, chills. Denies chest pain. He is complaining of some constipation. He tells me that is in the process of sellinghis home. Preadmission screen was completed. Patient admitted to IRF. Objective GeneralVS:Vital Signs: Date Time Temp Pulse Resp B/P B/P Pulse O2 O2 Flow FiO2 Mean Ox Delivery Rate 08/31 07 98.4 78 18 157/77 103.9 96 Room air 08/30 2355 98.1 64 17 155/68 96.6 97 08/30 1917 97.7 74 18 168/83 111.2 97 Room air 08/30 1430 98.6 76 20 178/78 111.1 98 08/30 1208 98.2 65 21 171/84 113.4 98 08/30 1131 96 Room air PATIENT WEIGHT: Weight (lb): 221Weight (oz): 9.03Weight (kg): 100.500 Medications:Active Meds + DC'd Last 24 HrsIpratropium [place] (ATROVENT) 500 MCG RTQ6H WA INH Amiodarone HCl (CORDARONE) 200 MG DAILY PO Midodrine (PROAMATINE) 5 MG AC BK DAVE PO Midodrine (PROAMATINE) 5 MG BID 9A 5P PRN PO Lidocaine (LIDODERM) 1 PATCH DAILY TOPICAL Lidocaine (LIDODERM) 1 PATCH DAILY TOPICAL Metoprolol Tartrate (LOPRESSOR) 12.5 MG Q12HR PO Duloxetine HCl (CYMBALTA) 60 MG BEDTIME PO Ezetimibe (ZETIA) 10 MG DAILY PO Aspirin (ASPIRIN) 81 MG DAILY PO Clopidogrel Bisulfate (Plavix) 75 MG DAILY PO Cyanocobalamin (Vitamin B-12 500 mcg tab) 500 MCG DAILY PO Ferrous Sulfate (FERROUS SULFATE) 325 MG DAILY PO Polyethylene Glycol (MIRALAX) 17 GM DAILY PO Pantoprazole (PROTONIX) 40 MG DAILY@0600 PO Budesonide (PULMICORT RESPULES) 0.5 MG RTBID INH Formoterol Fumarate (PERFOROMIST) 20 MCG RTBID NEB Docusate Sodium (COLACE) 100 MG BID PO Ipratropium [place] (ATROVENT) 500 MCG RTQ6H INH (DC) Sennosides (Senna Lax 8.6 MG TABLET) 17.2 MG BEDTIME PO Hydralazine HCl (APRESOLINE) 10 MG Q6H PRN PRN IV Acetaminophen (TYLENOL) 650 MG Q4H PRN PRN PO Ipratropium [place] (ATROVENT) 500 MCG RTQ2H PRN PRN INH Melatonin (Melatonin) 6 MG BEDTIME PRN PO Ondansetron HCl (ZOFRAN ODT) 4 MG TID PRN PRN SL Physical ExamGeneral appearance: alert, awake, no acute distressPsych: alert, normal affect, oriented x 3HEENT: anicteric, mucosal membranes moist, pupils reactive to light, sclera clearNeck: non-tender, supple, no JVDCardiovascular: irregular rhythm, S1/S2, cap refill wnl, pulses intactRespiratory: diminished breath sounds, on oxygen, aerating wellAbdomen: bowel sounds present, non-distended, soft, non-tenderSkin: dry, normal temperature, no rash, bruising R thigh, mild L thigh, BUE, R hand Sl tender/edema, sternum incision RSH site CDI, bruising L chest wall, mildly tender, R elbow abrasionMusculoskeletal - general: Musculoskeletal - general: OA changes, normal tone, no swelling, Moves all 4 exts AG, calves NT, no cords, Homans negNeuro/TEAROOM HOST/HOSTESS: alert, oriented X 3, CNII-XII intact, normal speech, no motor deficits, no sensory deficits ResultsFindings/Data:Laboratory Tests 08/29 08/30 0510 0515 Chemistry Sodium (134 - 147 mEq/L) 140 Potassium (3.4 - 5.0 mEq/L) 4.2 Chloride (100 - 108 mEq/L) 103 Carbon Dioxide (21 - 33 mEq/l) 28 Anion Gap (0 - 20) 13 BUN (7 - 18 mg/dL) 19 Creatinine (0.6 - 1.3 mg/dL) 1.8 Glomerular Filtr Rate (70 - 80) 37.6 Glucose (70 - 110 mg/dL) 98 Calcium (8.0 - 10.5 mg/dL) 9.1 Ionized Calcium Suzanna (1.09 - 1.30 MMOL/L) 1.16 Serology SARS-CoV-2 Ag (Rapid) (Negative) Negative Radiology data:Recent Impressions:RADIOLOGY - XR RIBS UNI 2 V LT 08/24 1455 Report Impression - Status: SIGNED Entered: 08/24/2022 1606 IMPRESSION: Healing fractures of the left lateral 7th and 8th ribs.Small left pleural effusion.Impression By: [email or web address] - Florentino Perez M.D.ULTRASOUND - US RETROPERITONEAL COM 08/28 1300 Report Impression - Status: SIGNED Entered: 08/28/2022 1417 IMPRESSION: Bilateral renal simple cysts not necessitating follow-up. Impression By: Miriam Loredo M.D. Diagnosis, Assessment PlanProblem List/A P: 1. CAD (coronary artery disease) 2. Afib 3. HTN (hypertension) 4. S/P CABG x 5 5. Impaired functional mobility, balance, gait, and endurance Free Text A P:Assessment:Multivessel CAD3/9: S/p CABG x5-Dr. Lind-fib s/p a LAAEndoscopic RGSV harvest08/16: Echo-EF 50-54%, small pericardial effusionSmall bilateral pleural effusions.Muscle weakness Unsteady gaitAlzheimer's dementia (as per family), poor memoryPostoperative anemiaAKI on CKDHTNImpairment in self-care, ADLs and functional mobility Plan:-Continue PT/OT-Case management for safe discharge planning.-Decubitus prevention-protective hydrating lotion-turn every 2 pyzcj-ckxgzid-Plutm program-MiraLAX, senna-Nutrition, monitor the patient's p.o. intake, check albumin 3.5, 3.2 and prealbumin 14.3, 12, dietary consult, protein supplements. Cardiac diet. BMI above normal parameters. Working with dietary, follow up with PCP-Strict fall and safety precaution-DVT yamirnhwfff-MLKk-LO prophylaxis on Protonix-CAD on Plavix and aspirin, intolerant to statins-Pulmonary toilet frequent I-S, nebs, wean O2-Early mobilization-OOB to chair-Work on bed mobility, transfer training, ADLs, pre-gait and gait exercises as tolerable. -Increase endurance and strength-Pain management-Postop care as per CVS-Monitor telemetry-Cardiology on case-LADARIUS as per nephrology-He was following specialist managers in [place] so plan to refer to his specialist managers post discharge. Stable renal function as per nephrology.-Dementia/confusion-Higher level of nursing care and monitoring for safety-Strict sternal precautions-patient with poor carryover of sternal precautions-Monitor sites of bruising and right hand pain-from previous phlebotomy sites-nosigns of uyxvghepx-Uvomzd-rnwugwq B12 and ferrous uaspzmo-LQS-CL stable-orthostasis/dizziness-diuretic s reduced-midodrine 5 mg twice daily-use ENZO hose and abdominal binder when out of bed-monitor. Medications being monitored by cardiology-Removed sutures x2 from lower chest on 08/2542-weelzj-Eirfya-up with PCP for dementia zkanxneacu-Digwtez-KT negative-completed Pyridium-symptoms resolved-08/22: Fall: Seen by trauma team after fall. CT head negative. Right shoulder x-ray negative for fracture. Patient patient appears to be at his baseline-08/24: Fall-no head injury-left rib pain-left rib film-no acute fractures, healing fractures of the left lateral 7th and 8th ribs. Small left pleural effusion-Lidoderm muirn-gqjncyy-D elbow hurting more. 2 view R elbow x ray-no acute fracture-Lidoderm patch-pain management-Stable cardiac status-08/28 retroperitoneal ultrasound-bilateral renal simple cysts-no follow-up needed-Labs reviewed-WBC normal, hemoglobin 9.1, 8.9, 9.7 platelets stable, creatinine1.9, 2.2, 1.9, 1.8 magnesium normal, HgbA1C 5.2. -Advance therapies as tolerable -Case discussed with son-1:1 sitter due to multiple falls/safety issues, alert and oriented to 0-9-Hvjkvdsbism with binder and ENZO hose improving. Midodrine dose increased. -Patient making fair progress but limited due to memory and cognitive deficits. Patient impulsive at times.-infrastructure project manager checking on authorization for [facility]. Insurance planningon denying SNF. P2P to be done by Dr. FuentesXznoenibt-bmqbhi-vttdtd pending Progress: PT WAS SEEN FOR 90MIN OF THERAPY BEGINNING W/GAIT TRAINING WITH RW 180',50' MOD<>MIN-A PT IS IMPULSIVE AT TIME,100' USING WALL RAIL JOSE R- SLOW MOVING,STAIR TRAINING 4 STEPS,2 RAILS MIN-A,PICKING OBJECTS OFF FLOOR VC FOR SAFETY. 180'X2 AROUND UNIT PER SITTER VC FOR SAFETY.DYNAMIC STANDING ACTIVITIES REACHING IN MULTIPLE PLANES USING HOOKTO TRANSMITTER TESTER OBJECTS,PICKING OBJECTS OFF FLOOR USING A REACHERVC FOR SAFETY. PM RPlease see team note.Plan and goals discussed with the patient. I agree with the teams findingELOS: [pending SNF acceptance]DC-SNF placement-awaiting insurance authorization for [facility]-on appealDME-bedside commode, rolling walker Total time was 35 minutes > 50% with patient performing physical examination, discussing with patient about appeal for SNF, sitter, fall precaustions, discharge plans, sternal precautions, plan of care, goals, therapies, progress, medications, labs. All questions answeredOrders: Procedure Date/time Status NEB TREATMENT SUBSQ 08/31 1411 Active PT GAIT TRNG 08/31 UNK Complete PT FUNCTIONAL TRN 15 MIN 08/31 UNK Complete PT EXERCISE 15 MIN 08/31 UNK Complete Consultants: cardiology, cardiovascular surgery, hospitalist, nephrologyRehab attestation:Face to face exam completed. Treatment plan discussed with patient. Meets continued stay criteria. Agree with interdisciplinary treatment plan. at 1424 [facility] #:[id number] OF REPORTPRProgress [id number]:30:00G.[id number] for patient [id number]:24:48 [facility] 2022-08-30 13:20:00 [id number]+zVUc [id number]+gHn9tV4LmYGEyg9pRmBXpFib [id number]:20:00 [facility] Progress NoteREPORT#:[id number] REPORT STATUS: SignedDATE:08/30/22 TIME: 1320 PATIENT: BRENNAN AHN UNIT #: [id number]#: [id number] [address] [birth year] AGE: 82 SEX: M ATTEND: Arthur Fuentes [facility] AUTHOR: Maura Terrazas MD * ALL edits or amendments must be made on the electronic/computer document * SubjectiveChief complaint:chest painHPI:82-year-old male known to have hypertension, atrial fibrillation, supraventricular tachycardia with requiring ablation presenting with multivesselcardiovascular disease and he underwent CABG 07/13/2022. He endorsed having kidney issues in the past and seeing a specialist managers at [place] but his kidney function had been stable since then.He developed oliguria,LADARIUS and hypervolemia post CABG but had now improved and was transferred to rehab. 08/30Patient appearing comfortable, he denied dizziness, SOB, nausea, orthopnea, cramping. Objective GeneralVS/I O:Vital Signs: Date Time Temp Pulse Resp B/P B/P Pulse O2 O2 Flow FiO2 Mean Ox Delivery Rate 08/31 0727 36.9 78 18 157/77 103.9 96 Room air 08/30 2355 36.7 64 17 155/68 96.6 97 08/30 1917 36.5 74 18 168/83 111.2 97 Room air 08/30 1430 37.0 76 20 178/78 111.1 98 08/30 1208 36.8 65 21 171/84 113.4 98 24 hour I O ending at 0700: 08/31 0700 08/30 1900 Intake Total 120 715 Output Total Balance 120 715 Intake, Oral 120 715 PATIENT WEIGHT: Weight (lb): 221Weight (oz): 9.03Weight (kg): 100.500 Physical ExamGeneral appearance: alert, awake, orientedHead/eyes: atraumatic, clear cornea, EOMIENT: moist mucous membranes, normal noseNeck: no JVD, no masses or swellingCardiovascular: normal heart sounds, regular rate and rhythmRespiratory: aerating well, clear to auscultationAbdomen: non-tender, softGenitourinary: no bladder distention, no flank painExtremities: no edema, no gangrene, no swelling Diagnosis, Assessment PlanFree Text A P:82-year-old male known to have hypertension, atrial fibrillation, supraventricular tachycardia with requiring ablation presenting with multivesselcardiovascular disease and he underwent CABG 07/13/2022. Transferred to rehab for therapy. Nephrology following for: 1. Acute kidney injury: Most likely prerenal as he recently had surgery. Renal function Improved.Plan to monitor. 2. Hypervolemia:Patient at high risk of volume overload so would reccommend lasix PO, lasix held due to hypotension .Volume improved. 3. Electrolytes: His electrolytes appear to be in normal range plan is to monitor and replace as needed. 4. HTN:Controlled with current medications.Plan to continue same.He develops orthostasis so medication doses minimised. 08/21 1. Acute kidney injury: Most likely prerenal as he recently had surgery. Resolving with better hemodynamics.His kidney function was stable plan was to monitor closely. 2. Hypervolemia:Patient at high risk of volume overload so would reccommend lasix PO .He recently developed orthostasis so dose reduced to 40 PO daily. Plan to increase lasix to Q12H and add midodrine for hypotension,patient is not dizzy anymore and he was tolerating Lasix at current dose. Plan was to monitor input and output closely. 3. Electrolytes: His electrolytes appear to be in normal range plan is to monitor and replace as needed. 4. HTN:Currently he develops orthostatic hypotension so not on any medications besides lasix and metoprolol. He was requiring midodrine to keep his blood pressures above 100 systolic. 08/22 1. Acute kidney injury: Most likely prerenal as he recently had surgery. Renal function Improved.Plan to monitor. 2. Hypervolemia:Patient at high risk of volume overload so would reccommend lasix PO, lasix held due to hypotension .Volume improved. 3. Electrolytes: His electrolytes appear to be in normal range plan is to monitor and replace as needed. 4. Hypotension: Midodrine dose increased .Plan to monitor. 08/23 1. LADARIUS on CKD: Patient with stable renal function. Plan to keepMAP>65 and avoidnephrotoxic agents. He was following specialist managers in [place] so plan to refer to his specialist managers post discharge. 2. Hypervolemia:Patient at high risk of volume overload so would reccommend lasix PO, lasix held due to hypotension .Volume improving slowly. 3. Electrolytes: His electrolytes appear to be in normal range plan is to monitor and replace as needed. 4. Hypotension: Midodrine dose increased .Plan to monitor. 08/24 1. LADARIUS on CKD: Patient with stable renal function. Plan to keepMAP>65 and avoidnephrotoxic agents. He was following specialist managers in [place] so plan to refer to his specialist managers post discharge. 2. Hypervolemia:Patient at high risk of volume overload so would reccommend lasix PO, lasix held due to hypotension .Volume stable. 3. Electrolytes: His electrolytes appear to be in normal range plan is to monitor and replace as needed. 4. Hypotension: Midodrine dose increased .Plan to monitor and increase midodrine if SBP<110. 3/291. LADARIUS on CKD: Patient with stable renal function. Plan to keepMAP>65 and avoidnephrotoxic agents. He was following specialist managers in [place] so plan to refer to his specialist managers post discharge. 2. Hypervolemia: .Volume stable.Plan to give lasix PRN .He is not tolerating daily dose due to hypotension. 3. Electrolytes: His electrolytes appear to be in normal range plan is to monitor and replace as needed. 4. Hypotension: Midodrine dose increased .Plan to monitor and increase midodrine if SBP<110. Consultants: cardiology, cardiovascular surgery, hospitalist, nephrology at 1146 RPT #:[id number] OF REPORTPRProgress [id number]:20:00G.[id number] for patient jikpBPIPRTMEQMUQBG1571-08-40H55:46:36 [facility] 2022-08-30 11:08:00 [id number] +FATPNZBYiJLGhLxa2vFmFpqswrfG/OkW4ijt [id number]:08:00 [facility] ([facility])Rehab Progress NoteREPORT#:[id number] REPORT STATUS: SignedDATE:08/30/22 TIME: 1108 PATIENT: BRENNAN AHN UNIT #: [id number]#: [id number] [address] AGE: 82 SEX: M ATTEND: Arthur Fuentes [facility] AUTHOR: Florentino Jimenez * ALL edits or amendments must be made on the electronic/computer document * SubjectiveChief complaint:Rehab follow-upDoing betterStill requires sitterNADEating well+ BMDenies MORA/N/V/D/CP14 systems reviewed and neg. except that above.History of present illness:82-year-old male with PMH of Alzheimer's dementia, CKD, HTN, atrial fibrillation, history of SVT/ablation who was transferred to [facility] ED after being foundto have multivessel coronary artery disease. Patient initially with was at homeand developed chest pains. He was brought to [facility] andunderwent left heart cath which revealed multivessel CAD. Patient evaluated here by cardiothoracic surgery and underwent CABG x5 on 08/10. Patient with postoperative anemia and significant impairment in mobility. Pt is progressing slowly with therapy d/t weakness, self care deficit, decreased endurance and balance, and decreased functional mobility. Pt requiring acute inpt rehab for multidisciplinary team of nursing, therapy, and physicians. Pt is willing and able to participate in 3 hr/day inpt rehab to d/c home safely. Daughter states pt's prior level of function was independent. Currently patient has generalizedweakness. He lives by himself in a one-step up house. He denies any shortness of breath, nausea, vomiting, fever, chills. Denies chest pain. He is complaining of some constipation. He tells me that is in the process of sellinghis home. Preadmission screen was completed. Patient admitted to IRF. Objective GeneralVS:Vital Signs: Date Time Temp Pulse Resp B/P B/P Pulse O2 O2 Flow FiO2 Mean Ox Delivery Rate 08/30 0726 97.7 79 20 138/79 98.9 96 08/29 2343 98.2 68 18 131/64 86.5 96 08/29 2051 94 Room air 08/29 1925 98.2 96 16 150/69 95.8 95 08/29 1627 97.5 85 18 117/44 68.0 96 08/29 1256 97.5 79 18 127/69 88.5 97 PATIENT WEIGHT: Weight (lb): 221Weight (oz): 9.03Weight (kg): 100.500 Medications:Active Meds + DC'd Last 24 HrsAmiodarone HCl (CORDARONE) 200 MG DAILY PO Midodrine (PROAMATINE) 5 MG AC BK DAVE PO Midodrine (PROAMATINE) 5 MG BID 9A 5P PRN PO Lidocaine (LIDODERM) 1 PATCH DAILY TOPICAL Lidocaine (LIDODERM) 1 PATCH DAILY TOPICAL Metoprolol Tartrate (LOPRESSOR) 12.5 MG Q12HR PO Duloxetine HCl (CYMBALTA) 60 MG BEDTIME PO Ezetimibe (ZETIA) 10 MG DAILY PO Aspirin (ASPIRIN) 81 MG DAILY PO Clopidogrel Bisulfate (Plavix) 75 MG DAILY PO Cyanocobalamin (Vitamin B-12 500 mcg tab) 500 MCG DAILY PO Ferrous Sulfate (FERROUS SULFATE) 325 MG DAILY PO Polyethylene Glycol (MIRALAX) 17 GM DAILY PO Pantoprazole (PROTONIX) 40 MG DAILY@0600 PO Budesonide (PULMICORT RESPULES) 0.5 MG RTBID INH Formoterol Fumarate (PERFOROMIST) 20 MCG RTBID NEB Docusate Sodium (COLACE) 100 MG BID PO Ipratropium [place] (ATROVENT) 500 MCG RTQ6H INH Sennosides (Senna Lax 8.6 MG TABLET) 17.2 MG BEDTIME PO Hydralazine HCl (APRESOLINE) 10 MG Q6H PRN PRN IV Acetaminophen (TYLENOL) 650 MG Q4H PRN PRN PO Ipratropium [place] (ATROVENT) 500 MCG RTQ2H PRN PRN INH Melatonin (Melatonin) 6 MG BEDTIME PRN PO Ondansetron HCl (ZOFRAN ODT) 4 MG TID PRN PRN SL Functional ProgressFunctional progress: PT daily note comment: S: PT REPORTS NO COMPLAINTS OF ACUTE PAIN WITH ACTIVIITES IN THERPAY. O: PT WAS SEEN FOR 90MIN OF THERAPY BEGINNING W/DON OF ENZO HOSE AND BINDER.COMPLETE ORTHOSTATIC VITALS RECORD,WC MOBILITY 200' BI LE VC FOR SAFETY,GAIT TRAINING 70' MIN-WITH RW 50'X2 USING WALL RAIL MIN-A FOR SAFETY.PT WORKED ON SIT TO STANDS FROM GYM MAT 5 REPS,2 SETS.PT REQUIRES EXTRA REST STOPS.REPETITION WITH VC FOR SAFETY VERY PLEASANTTO WORK WITH. A; PT MAKING LIMITED PROGRESS DUE TO MEMORY DEFICITSAS WELL COG.DEFICITS. P: PT CONT.WITH PT POC. Physical ExamGeneral appearance: alert, awakePsych: alert, normal affect, oriented x 3HEENT: anicteric, mucosal membranes moist, pupils reactive to light, sclera clearNeck: non-tender, supple, no JVDCardiovascular: irregular rhythm, S1/S2, cap refill wnl, pulses intactRespiratory: diminished breath sounds, on oxygen, aerating wellAbdomen: bowel sounds present, non-distended, soft, non-tenderSkin: dry, normal temperature, no rash, bruising R thigh, mild L thigh, BUE, R hand Sl tender/edema, sternum incision RSH site CDI, bruising L chest wall, mildly tender, R elbow abrasionMusculoskeletal - general: Musculoskeletal - general: OA changes, normal tone, no swelling, Moves all 4 exts AG, calves NT, no cords, Homans negNeuro/TEAROOM HOST/HOSTESS: alert, oriented X 3, CNII-XII intact, normal speech, no motor deficits, no sensory deficits ResultsFindings/Data:Laboratory Tests 08/28 0618 Chemistry Albumin (3.4 - 5.0 g/dL) 3.20 L Prealbumin (16.0 - 40.0 mg/dL) 12.0 L Laboratory Tests 08/29 0510 Serology SARS-CoV-2 Ag (Rapid) (Negative) Negative Recent Impressions:ULTRASOUND - US RETROPERITONEAL COM 08/28 1300 Report Impression - Status: SIGNED Entered: 08/28/2022 1417 IMPRESSION: Bilateral renal simple cysts not necessitating follow-up. Impression By: Miriam Loredo M.D. Diagnosis, Assessment PlanProblem List/A P: 1. CAD (coronary artery disease) 2. Afib 3. HTN (hypertension) 4. S/P CABG x 5 5. Impaired functional mobility, balance, gait, and endurance Free Text A P:Assessment:Multivessel CAD08/10: S/p CABG x5-Dr. Lind-fib s/p a LAAEndoscopic RGSV harvest08/16: Echo-EF 50-54%, small pericardial effusionSmall bilateral pleural effusions.Muscle weakness Unsteady gaitAlzheimer's dementia (as per family), poor memoryPostoperative anemiaAKI on CKDHTNImpairment in self-care, ADLs and functional mobility Plan:-Continue PT/OT-Case management for safe discharge planning.-Decubitus prevention-protective hydrating lotion-turn every 2 hdbvy-nhpfeaj-Imhuk program-MiraLAX, senna-Nutrition, monitor the patient's p.o. intake, check albumin 3.5, 3.2 and prealbumin 14.3, 12, dietary consult, protein supplements. Cardiac diet. BMI above normal parameters. Working with dietary, follow up with PCP-Strict fall and safety precaution-DVT zaipzxuqpxq-UPZs-VD prophylaxis on Protonix-CAD on Plavix and aspirin, intolerant to statins-Pulmonary toilet frequent I-S, nebs, wean O2-Early mobilization-OOB to chair-Work on bed mobility, transfer training, ADLs, pre-gait and gait exercises as tolerable. -Increase endurance and strength-Pain management-Postop care as per CVS-Monitor telemetry-Cardiology on case-LADARIUS as per nephrology-He was following specialist managers in [place] so plan to refer to his specialist managers post discharge.-Dementia/confusion-Higher level of nursing care and monitoring for safety-Strict sternal precautions-patient with poor carryover of sternal precautions-Monitor sites of bruising and right hand pain-from previous phlebotomy sites-nosigns of wcrjszuin-Spgbnr-wxcinsz B12 and ferrous cmjjjej-ETT-GK stable-orthostasis/dizziness-diuretic s reduced-midodrine 5 mg twice daily-use ENZO hose and abdominal binder when out of bed-monitor. Medications being monitored by cardiology-Removed sutures x2 from lower chest on 08/2580-qnhsfe-Ltrzdg-up with PCP for dementia tgzynqfwho-Wwjmqet-AW negative-completed Pyridium-symptoms resolved-08/22: Fall: Seen by trauma team after fall. CT head negative. Right shoulder x-ray negative for fracture. Patient patient appears to be at his baseline-08/24: Fall-no head injury-left rib pain-left rib film-no acute fractures, healing fractures of the left lateral 7th and 8th ribs. Small left pleural effusion-Lidoderm tomvw-rhztwux-E elbow hurting more. 2 view R elbow x ray-no acute fracture-Lidoderm patch-pain management-Stable cardiac status-08/28 retroperitoneal ultrasound-bilateral renal simple cysts-no follow-up needed-Labs reviewed-WBC normal, hemoglobin 9.1, 8.9, 9.7 platelets stable, creatinine1.9, 2.2, 1.9, 1.8 magnesium normal, HgbA1C 5.2. -Advance therapies as tolerable -Case discussed with son-1:1 sitter due to multiple falls-Patient still has orthostasis with binder and ENZO hose. Midodrine dose increased. Requires multiple rest breaks. Patient ambulated with rolling walker 200 feet with contact-guard assist.-infrastructure project manager checking on authorization for [facility]. Insurance planningon denying SNF. P2P to be done by Dr. Fuentes PM RPlease see team note.Plan and goals discussed with the patient. I agree with the teams findingELOS: [08/30 pending SNF acceptance]DC-SNF placement-[facility], rolling walker Total time was 34 minutes > 50% with patient performing physical examination, discussing with patient about sitter, fall precaustions, discharge plans, sternal precautions, plan of care, goals, therapies, progress, medications, labs. All questions answeredRehab attestation:. at 0832 RPT #:[id number] OF REPORTPRProgress [id number]:08:00G.[id number] for patient [id number]:33:33 [facility] 2022-08-30 10:54:00 [id number]+TTkcn1DRMLxZ2 fg2LLJi+A1uSuaVK1x1nMeBUGBzEoAusOlTVj [id number]:54:00 [facility] ([facility])Cardiology Progress NoteREPORT#:[id number] REPORT STATUS: SignedDATE:08/30/22 TIME: 1054 PATIENT: BRENNAN AHN UNIT #: [id number]#: [id number] [address] AGE: 82 SEX: M ATTEND: Arthur Fuentes [facility] AUTHOR: Catrina Shetty * ALL edits or amendments must be made on the electronic/computer document * SubjectivePatient reports:No: complaints. Objective GeneralVS/I O:24 hour I O ending at 0700: 08/30 0700 08/29 1900 Intake Total 120 Output Total 200 Balance -80 Intake, Oral 120 Number 0 Incontinent Voids Number Voids 2 Output, Urine 200 Vital Signs: Date Time Temp Pulse Resp B/P B/P Pulse O2 O2 Flow FiO2 Mean Ox Delivery Rate 08/30 07 36.5 79 20 138/79 98.9 96 08/29 2343 36.8 68 18 131/64 86.5 96 08/29 2051 94 Room air 08/29 1925 36.8 96 16 150/69 95.8 95 08/29 1627 36.4 85 18 117/44 68.0 96 03/28 1256 36.4 79 18 127/69 88.5 97 PATIENT WEIGHT: Weight (lb): 221Weight (oz): 9.03Weight (kg): 100.500 Medications:Active Meds + DC'd Last 24 HrsAmiodarone HCl (CORDARONE) 200 MG DAILY PO Midodrine (PROAMATINE) 5 MG AC BK DAVE PO Midodrine (PROAMATINE) 5 MG BID 9A 5P PRN PO Lidocaine (LIDODERM) 1 PATCH DAILY TOPICAL Lidocaine (LIDODERM) 1 PATCH DAILY TOPICAL Metoprolol Tartrate (LOPRESSOR) 12.5 MG Q12HR PO Duloxetine HCl (CYMBALTA) 60 MG BEDTIME PO Ezetimibe (ZETIA) 10 MG DAILY PO Aspirin (ASPIRIN) 81 MG DAILY PO Clopidogrel Bisulfate (Plavix) 75 MG DAILY PO Cyanocobalamin (Vitamin B-12 500 mcg tab) 500 MCG DAILY PO Ferrous Sulfate (FERROUS SULFATE) 325 MG DAILY PO Polyethylene Glycol (MIRALAX) 17 GM DAILY PO Pantoprazole (PROTONIX) 40 MG DAILY@0600 PO Budesonide (PULMICORT RESPULES) 0.5 MG RTBID INH Formoterol Fumarate (PERFOROMIST) 20 MCG RTBID NEB Docusate Sodium (COLACE) 100 MG BID PO Ipratropium [place] (ATROVENT) 500 MCG RTQ6H INH Sennosides (Senna Lax 8.6 MG TABLET) 17.2 MG BEDTIME PO Hydralazine HCl (APRESOLINE) 10 MG Q6H PRN PRN IV Acetaminophen (TYLENOL) 650 MG Q4H PRN PRN PO Ipratropium [place] (ATROVENT) 500 MCG RTQ2H PRN PRN INH Melatonin (Melatonin) 6 MG BEDTIME PRN PO Ondansetron HCl (ZOFRAN ODT) 4 MG TID PRN PRN SL Physical ExamGeneral appearance: alert, awakeNeck: non-tender, no JVDCardiovascular: CV assessment: irregularly irregularRespiratory: decreased breath sounds, no distressAbdomen: soft, non-tender, normal bowel sounds, no distentionGenitourinary: no flank pain, no urinary catheterLower extremity: LE assessment: no edemaMusculoskeletal: normal inspectionNeuro/TEAROOM HOST/HOSTESS: alertSkin: dryPsychiatry: normal affect, normal mood ResultsFindings/Data:Laboratory Tests 08/30 0515 Chemistry Sodium (134 - 147 mEq/L) 140 Potassium (3.4 - 5.0 mEq/L) 4.2 Chloride (100 - 108 mEq/L) 103 Carbon Dioxide (21 - 33 mEq/l) 28 Anion Gap (0 - 20) 13 BUN (7 - 18 mg/dL) 19 H Creatinine (0.6 - 1.3 mg/dL) 1.8 H Glomerular Filtr Rate (70 - 80) 37.6 L Glucose (70 - 110 mg/dL) 98 Calcium (8.0 - 10.5 mg/dL) 9.1 Ionized Calcium Suzanna (1.09 - 1.30 MMOL/L) 1.16 Results: labs reviewed, vital signs reviewed Diagnosis, Assessment Plan Free Text DxA P NotesFree Text DxA P Notes:82 YO male with MHX of Afib, HTN, HLD, CAD who is s/p 5 vessel CABG and PVI and ALAA. The patient is transferred to [facility] for inpatient rehabilitation. We are consulted for continuity of cardiac-related care. 1. CAD s/p CABG x 5 (NGUYEN-LAD, SVG-Olga Lidia, SVG-OM, SVG-LPLA, SVG-PDA) continue asa, BB, plavix, Zetiaecho 08/12- LVEF 50-54%, left pleural effusionintolerant of statin, will consider nonstatin med such as Repatha or Nexletol outpatient 2. A-fib: Paroxysmal - rate controlleds/p PVI and ARISTEO amputationdecrease amiodarone to 200 mg daily - DC prior to dischargeContinue low-dose metoprolol 12.5 mg BID no need for AC since left atrial appendage was removed during CABG 3. HTN BP stable on midodrineContinue low-dose metoprolol 12.5 mg BID 4. AKInephrology following 5. Dizziness 2/2 orthostatic hypotension midodrine for orthostatic hypotensioncompression stocking and abdominal binder before OOB dizziness resolved 6. s/p Fall 08/22 and 08/24CT head no acute findingR Elbow XR - no fractureL rib XR -healing fractures of the left lateral seventh and eighth ribs continue supportive carePlan for DC to SNFoutpatient follow-up with Dr. Sanchez at 1646 at 1402 RPT #:[id number] OF REPORTPRProgress [id number]:54:00G.[id number] for patient qdzjGCZZJFTFWPTFFI6658-55-73K97:47:21 [facility] 2022-08-29 14:35:00 [id number]/CxR4Z [id number]NQXl [id number]:35:00 [facility] HospitalInternal Medicine Prog. NoteREPORT#:[id number] REPORT STATUS: SignedDATE:08/29/22 TIME: 1435 PATIENT: BRENNAN AHN UNIT #: [id number]#: [id number] [address] AGE: 82 SEX: M ATTEND: Arthur Fuentes [facility] AUTHOR: Devin Fox DO * ALL edits or amendments must be made on the electronic/computer document * SubjectiveChief complaint:pt c/o of some cough and pain in SS chest as a result Review of SystemsAll systems rev neg: except as marked Objective GeneralVS/I O:Vital SignsDate Temp Pulse Resp B/P B/P Mean Pulse Ox QrL075/27-08/29 97.3-98.4 68-102 16-19 93-155/50-82 66.8-106.2 92-99 21 Last Documented: Result Date Time Pulse Ox 97 08/29 1256 B/P 127/69 08/29 1256 B/P Mean 88.5 08/29 1256 Temp 97.5 08/29 1256 Pulse 79 08/29 1256 Resp 18 08/29 1256 O2 Delivery Room air 08/29 0521 FiO2 21 08/29 0229 24 hour I O ending at 0700: 08/29 0700 08/28 1900 Intake Total 715 Output Total Balance 715 Intake, Oral 715 PATIENT WEIGHT: Weight (lb): 221Weight (oz): 9.03Weight (kg): 100.500 Medications:Active Meds + DC'd Last 24 HrsAmiodarone HCl (CORDARONE) 200 MG DAILY PO Midodrine (PROAMATINE) 5 MG AC BK DAVE PO Midodrine (PROAMATINE) 5 MG BID 9A 5P PO (DC) Midodrine (PROAMATINE) 5 MG BID 9A 5P PRN PO Phenazopyridine HCl (PYRIDIUM) 200 MG TID PRN PRN PO (DC) Lidocaine (LIDODERM) 1 PATCH DAILY TOPICAL Lidocaine (LIDODERM) 1 PATCH DAILY TOPICAL Metoprolol Tartrate (LOPRESSOR) 12.5 MG Q12HR PO Duloxetine HCl (CYMBALTA) 60 MG BEDTIME PO Ezetimibe (ZETIA) 10 MG DAILY PO Amiodarone HCl (CORDARONE) 200 MG BID PO (DC) Aspirin (ASPIRIN) 81 MG DAILY PO Clopidogrel Bisulfate (Plavix) 75 MG DAILY PO Cyanocobalamin (Vitamin B-12 500 mcg tab) 500 MCG DAILY PO Ferrous Sulfate (FERROUS SULFATE) 325 MG DAILY PO Polyethylene Glycol (MIRALAX) 17 GM DAILY PO Pantoprazole (PROTONIX) 40 MG DAILY@0600 PO Budesonide (PULMICORT RESPULES) 0.5 MG RTBID INH Formoterol Fumarate (PERFOROMIST) 20 MCG RTBID NEB Docusate Sodium (COLACE) 100 MG BID PO Ipratropium [place] (ATROVENT) 500 MCG RTQ6H INH Sennosides (Senna Lax 8.6 MG TABLET) 17.2 MG BEDTIME PO Hydralazine HCl (APRESOLINE) 10 MG Q6H PRN PRN IV Acetaminophen (TYLENOL) 650 MG Q4H PRN PRN PO Ipratropium [place] (ATROVENT) 500 MCG RTQ2H PRN PRN INH Melatonin (Melatonin) 6 MG BEDTIME PRN PO Ondansetron HCl (ZOFRAN ODT) 4 MG TID PRN PRN SL Physical ExamGeneral appearance: alert, awake, orientedHead/Eyes: EOMI, PERRLANeck: non-tender, no JVDCardiovascular: normal heart sounds, regular rate rhythmRespiratory: aerating well, clear to auscultationAbdomen: non-tender, normal bowel soundsExtremities: Extremities: no cyanosis, no edemaNeuro/TEAROOM HOST/HOSTESS: alert, oriented x 3, CNII-XII intactSkin: ecchymosis (l chest) ResultsFindings/Data:Laboratory Tests 08/29 0510 Serology SARS-CoV-2 Ag (Rapid) (Negative) Negative Diagnosis, Assessment PlanHospital course to date:82-year-old male with past medical history of hypertension, atrial fibrillation,supraventricular tachycardia status post ablation who was admitted with reports of multivessel coronary artery disease found on a cardiac catheterization done at [facility]. Patient was transferred to [facility] for CABG. He underwent PBJSk5p. 1. Coronary artery disease-Status post CABG x5, ALAA, PVI-Continue metoprolol, Plavix, aspirin 2. Atrial fibrillation-Continue po amiodarone for rate control- taper AMIO per cards-Continue metoprolol-Monitor and review telemetry 3. Debility/-.-PT/OT- PMR- Inpt Rehab 4. ARF/ckd- Trend cr 1.3-1.9-2.2-2.0-1.9-2.2-1.8- post op, post lasix therefore likely pre-renal- baseline CKD is suspected- nephro consulted- US RENAL- BILAT Cysts 5. anemia- acute, post op expecteed- monitor and transfuse if hg <7- cont po Iron- Trend Hg 9.1 6. Delirium/ dementia-Likely due to sundowning/dementia-Monitor closely-Patient is neurologically intact 7. FALLs- 08/22, 08/24- ct head neg- R shoulder Xr neg- R elbow pain- mild- pain meds prn- sitter at bedside 8. Dysuria- UA neg- on pyridium prn- consider Urologist consult 9. Orthostatic hypotension- cont Midodrine and adjust up - check orthostatic VS- mild orthostasis 10. RIB fx- 08/24 Left RIb xr -HEALING L 7th and 8th rib fractures- unknown chronicity - ribs fractures show "healing" ALREADY d/w RN and Pt and son in detailstotal time spent 35mins d/w SON Consultants: cardiology, cardiovascular surgery, hospitalist, nephrology Quality: Gen Med Crit Care Current MedicationsCurrent medication review:I attest that the foregoing medication list in the medical record is true, accurate, and complete to the best of my knowledge. Advanced Care Plan 65 or OlderDiscussed with: patientDiscussion included: code status at 0917 RPT #:[id number] OF REPORTPRProgress [id number]:35:00G.[id number] for patient [id number]:18:24 [facility] 2022-08-29 13:25:00 [id number] 1dPRgII1OtKr1hO4q2Frrn0+FnBbdUrktFBY9 [id number]:25:00 [facility] HospitalRehab Team ConferenceREPORT#:[id number] REPORT STATUS: SignedDATE:08/29/22 TIME: 1325 PATIENT: BRENNAN AHN UNIT #: [id number]#: [id number] [address] AGE: 82 SEX: M [facility]END[facility] AUTHOR: Arthur Fuentes MD * ALL edits or amendments must be made on the electronic/computer document * Rehabilitation Team Conference Weekly Team ConferenceTeam conf information:Date of conference: 08/29/22Conference type: InterimConference scribe: Ana Cristina Solano PTA INTERDISCIPLINARY TEAM MEETING PARTICIPANTS: TITLE NAME MD BRIDGER White, BRIDGER Tristan, PT KEYANNA Garcia OT CM/JOEY Wood NO ATTENDEE [facility] Ami Hobbs, JOVANNY Staff (8) NO ATTENDEE Staff (9) NO ATTENDEE OTHER NAME CREDENTIALS 1 2 FUNCTIONAL CHANGE: TYPE ADMISSION TOTAL INTERIM TOTAL CHANGE Self care 23 32 9 Transfer 16 22 6 Mobility 11 24 13 Wheelchair distance: Mobility description: BOWEL AND BLADDER STATUS: Bowel continence admission rating: Bladder continence admission rating: Always continentBowel and bladder team conference update: INCONTINENT OF BOWEL AND BLADDER INTERDISCIPLINARY TEAM UPDATES: VIVIAN team conference update: AAOX3-4 CONFUSED AT TIMES CAN BE IMPLUSIVE ABLE TO SET UP AND FEED SELF 1 PERSON MOD ASSIST WITH DRESS AND HYGINE INCONTINENT OF BOWEL AND BLADDER REMAINS ON TELE STERNAL PRECAUTIONSPT team conference update: PROGRESS: GOOD BARRIERS: COGNITION, ENDURANCE, FALL RISK DME: RW AND W/C D/C: [facility] MODE OF AMBULATION: GAIT 240 FEET, CGA AND W/C 120 FEET, SPV OT team conference update: PROGRESS- FAIR, LIMITED BY COGNITION AND STERNAL PRECAUTONS ADLS ARE INDPENDENT TO MIN AST team conference update: CM or SW team conference update: DC TO SNF IS PENDING INSURANCE AUTHORIZATION. THE PATIENT REMAINS IMPULSIVE.Other discipline update 1: P.O INTAKE: 25-50% OF A DYS 6 DIET.Other discipline update 2: Other discipline update 3: REHAB DC GOALS: Patient's identified discharge goal: PT: TO GO HOME Eating discharge goal: Independent (6) Shower/bathe self discharge goal: Setup/clean-up only (5) Upper body dressing discharge goal: Independent (6) Lower body dressing discharge goal: Independent (6) Chair/bed to chair transfer discharge goal: Independent (6) Transfer on/off toilet or commode discharge goal: Independent (6) Walking 50 feet with two turns discharge goal: Independent (6) Walking 150 feet discharge goal: Independent (6) Four steps discharge goal: Supervise/touch asst (4) Twelve steps discharge goal: Not applicable [place] 150 feet discharge goal: Independent (6) Goal 1 - Bowel function: PATIENT WILL REMAIN CONTINENT OF BOWELS WITH BM AT LEAST ONCE EVERY 3 DAYS.Goal 2 - Bladder function: PATIENT WILL REMAIN CONTINENT OF BLADDER-UTILIZING URINAL OR UP TO BATHROOM FOR VOIDING.Nursing goal 3: PATIENT WILL REMAIN FREE FROM SKIN BREAKDOWN.Nursing goal 4: PATIENT WILL REPORT ADEQUATE PAIN CONTROL DURING REHAB STAY.Nursing goal 5: PATIENT WILL BE FROM INJURY AND FALLS DURING REHAB STAY. DISCHARGE PLANNING: Barriers to discharge: Caregiver, Cognition, Endurance, Fall riskStrategies for D/C barriers: Behavioral mod plan, Evaluate sleep patterns, Fall recovery trainingEstimated length of stay in days: 13Anticipated discharge date: 08/29/22Discharge date adjustment comment: PENDING INSURANCE APPROVAL FOR SNFIdentified financial and/or community resource needs: Family/Caregiver training days: PATIENT AND FAMILY WILL BE EDUCATED ON USE OF GAIT BELT TO LOWER PT TO THE FLOOR IN THE EVENT OF LOSS OF BALANCE TO PREVENT FALL OR INJURY. FAMILY TRAINING COMPLETED ON 08/25/22Independence day (DATE): 08/28/22Expected discharge destination: FDC facilityAnticipated services upon discharge: Occupational therapy, Physical therapy, Nurses aide, NursingAnticipated discharge equipment: NONE Impairment group: cardiac disorders NOTE Document ONLY ONE Impairment GroupEtiologic diagnosis:CAD MULTIVESSEL A FIB PAROXYSMALReview of comorbidities:CAD, A FIB, DEMENTIA/ON ELLIQUIS, HTN, CHRONIC KIDNEY DX, POST OP ANEMIA, muscle weakness, unsteady gait, POST OP PULMONARY DYSFUNTION MD Review/RecommendationsAttestation:[facility] led by me and I concur with all decisions made during the team conference and revisions to the individualized overall plan of care. IRF cont stay criteriaSee my note at 1325 RPT #:[id number] OF REPORTCLClinical [id number]:25:00G.[id number] for patient qaplGQPKPDAUVTCBKZ2167-00-77C38:26:03 [facility] 2022-08-29 13:07:00 [id number]+DS5IDsmGEIdAUOJ 8RGRXdkGEMgPJCrw/iMjNNYrRtbPESbd8+WsA [id number]:07:00 [facility] ([facility])Cardiology Progress NoteREPORT#:[id number] REPORT STATUS: SignedDATE:08/29/22 TIME: 1307 PATIENT: BRENNAN AHN UNIT #: [id number]#: [id number] [address] AGE: 82 SEX: M ATTEND: Arthur Fuentes [facility] AUTHOR: Catrina Shetty AGACNP * ALL edits or amendments must be made on the electronic/computer document * SubjectivePatient reports:No: complaints. Objective GeneralVS/I O:24 hour I O ending at 0700: 08/29 0700 08/28 1900 Intake Total 715 Output Total Balance 715 Intake, Oral 715 Vital Signs: Date Time Temp Pulse Resp B/P B/P Pulse O2 O2 Flow FiO2 Mean Ox Delivery Rate 08/29 1256 36.4 79 18 127/69 88.5 97 08/29 0846 102 93/54 66.8 95 08/29 0839 93 109/66 80.1 95 08/29 0832 79 145/70 95.1 93 08/29 0722 36.7 74 18 155/70 98.6 98 08/29 0521 36.7 86 16 123/72 88.8 92 Room air 08/29 0519 36.7 87 18 129/63 85.0 97 Room air 08/29 0517 36.7 78 16 152/80 104.1 96 Room air 08/29 0229 99 Room air 08/29 0002 36.6 96 18 102/50 67.5 93 08/28 2354 36.3 78 18 122/67 85.1 97 08/28 2351 36.9 68 16 126/73 90.8 97 08/28 2105 36.5 97 19 134/54 80.5 95 08/28 2058 36.6 82 18 154/82 106.2 97 08/28 2046 98 Room air 08/28 1929 36.5 74 17 127/71 89.4 96 08/28 1541 36.7 69 18 148/79 102.3 93 Room air PATIENT WEIGHT: Weight (lb): 221Weight (oz): 9.03Weight (kg): 100.500 Medications:Active Meds + DC'd Last 24 HrsAmiodarone HCl (CORDARONE) 200 MG DAILY PO Midodrine (PROAMATINE) 5 MG AC BK DAVE PO Midodrine (PROAMATINE) 5 MG BID 9A 5P PO (DC) Midodrine (PROAMATINE) 5 MG BID 9A 5P PRN PO Phenazopyridine HCl (PYRIDIUM) 200 MG TID PRN PRN PO (DC) Lidocaine (LIDODERM) 1 PATCH DAILY TOPICAL Lidocaine (LIDODERM) 1 PATCH DAILY TOPICAL Metoprolol Tartrate (LOPRESSOR) 12.5 MG Q12HR PO Duloxetine HCl (CYMBALTA) 60 MG BEDTIME PO Ezetimibe (ZETIA) 10 MG DAILY PO Amiodarone HCl (CORDARONE) 200 MG BID PO (DC) Aspirin (ASPIRIN) 81 MG DAILY PO Clopidogrel Bisulfate (Plavix) 75 MG DAILY PO Cyanocobalamin (Vitamin B-12 500 mcg tab) 500 MCG DAILY PO Ferrous Sulfate (FERROUS SULFATE) 325 MG DAILY PO Polyethylene Glycol (MIRALAX) 17 GM DAILY PO Pantoprazole (PROTONIX) 40 MG DAILY@0600 PO Budesonide (PULMICORT RESPULES) 0.5 MG RTBID INH Formoterol Fumarate (PERFOROMIST) 20 MCG RTBID NEB Docusate Sodium (COLACE) 100 MG BID PO Ipratropium [place] (ATROVENT) 500 MCG RTQ6H INH Sennosides (Senna Lax 8.6 MG TABLET) 17.2 MG BEDTIME PO Hydralazine HCl (APRESOLINE) 10 MG Q6H PRN PRN IV Acetaminophen (TYLENOL) 650 MG Q4H PRN PRN PO Ipratropium [place] (ATROVENT) 500 MCG RTQ2H PRN PRN INH Melatonin (Melatonin) 6 MG BEDTIME PRN PO Ondansetron HCl (ZOFRAN ODT) 4 MG TID PRN PRN SL Physical ExamGeneral appearance: alert, awake, no acute distressNeck: non-tender, no JVDCardiovascular: CV assessment: irregularly irregularRespiratory: decreased breath sounds, no distressAbdomen: soft, non-tender, normal bowel sounds, no distentionGenitourinary: no flank pain, no urinary catheterLower extremity: LE assessment: no edemaMusculoskeletal: normal inspectionNeuro/TEAROOM HOST/HOSTESS: alertSkin: dryPsychiatry: normal affect, normal mood ResultsFindings/Data:Laboratory Tests 08/29 0510 Serology SARS-CoV-2 Ag (Rapid) (Negative) Negative Results: no new labs, vital signs reviewed, rhythm personally rev'dTelemetry Interpretation:afib with controlled rate Diagnosis, Assessment PlanPlan discussed with: patient, nurse Free Text DxA P NotesFree Text DxA P Notes:82 YO male with MHX of Afib, HTN, HLD, CAD who is s/p 5 vessel CABG and PVI and ALAA. The patient is transferred to [facility] for inpatient rehabilitation. We are consulted for continuity of cardiac-related care. 1. CAD s/p CABG x 5 (NGUYEN-LAD, SVG-Olga Lidia, SVG-OM, SVG-LPLA, SVG-PDA) continue asa, BB, plavix, Zetiaecho 08/12- LVEF 50-54%, left pleural effusionintolerant of statin, will consider nonstatin med such as Repatha or Nexletol outpatient 2. A-fib: Paroxysmal - rate controlleds/p PVI and ARISTEO amputationdecrease amiodarone to 200 mg daily - DC prior to dischargeContinue low-dose metoprolol 12.5 mg BID no need for AC since left atrial appendage was removed during CABG 3. HTN BP stable on midodrineContinue low-dose metoprolol 12.5 mg BID 4. AKInephrology following 5. Dizziness 2/2 orthostatic hypotension midodrine for orthostatic hypotensioncompression stocking and abdominal binder before OOB dizziness resolved 6. s/p Fall 08/22 and 08/24CT head no acute findingR Elbow XR - no fractureL rib XR -healing fractures of the left lateral seventh and eighth ribs continue supportive carePlan for DC to SNFoutpatient follow-up with Dr. Sanchez - d/w granddaughter at 1540 at 1402 [facility] #:[id number] OF REPORTPRProgress [id number]:07:00G.[id number] for patient oqbbOGAVFBJJGFKJZE1836-80-25H08:40:34 [facility] 2022-08-29 11:33:00 [id number] x+XvVkAr8mf+O8qEQ/XIQLoBtQDLoZrd5GohL [id number]:33:00 [facility] ([facility])Nephrology Progress NoteREPORT#:[id number] REPORT STATUS: SignedDATE:08/29/22 TIME: 1133 PATIENT: BRENNAN AHN UNIT #: [id number]#: [id number] ROOM/BED: 503-2DOB: [birth year] AGE: 82 SEX: M ATTEND: Arthur Fuentes [facility] AUTHOR: Maura Terrazas MD * ALL edits or amendments must be made on the electronic/computer document * SubjectiveChief complaint:chest painHPI:82-year-old male known to have hypertension, atrial fibrillation, supraventricular tachycardia with requiring ablation presenting with multivesselcardiovascular disease and he underwent CABG 07/13/2022. He endorsed having kidney issues in the past and seeing a specialist managers at [place] but his kidney function had been stable since then.He developed oliguria,LADARIUS and hypervolemia post CABG but had now improved and was transferred to rehab. 08/28Patient appearing comfortable, he denied dizziness, SOB, nausea, orthopnea, cramping. Objective GeneralVS/I O:Vital Signs: Date Time Temp Pulse Resp B/P B/P Pulse O2 O2 Flow FiO2 Mean Ox Delivery Rate 08/30 0726 36.5 79 20 138/79 98.9 96 08/29 2343 36.8 68 18 131/64 86.5 96 08/29 2051 94 Room air 08/29 1925 36.8 96 16 150/69 95.8 95 08/29 1627 36.4 85 18 117/44 68.0 96 08/29 1256 36.4 79 18 127/69 88.5 97 24 hour I O ending at 0700: 08/30 0700 08/29 1900 Intake Total 120 Output Total 200 Balance -80 Intake, Oral 120 Number 0 Incontinent Voids Number Voids 2 Output, Urine 200 PATIENT WEIGHT: Weight (lb): 221Weight (oz): 9.03Weight (kg): 100.500 Physical ExamGeneral appearance: alert, awake, orientedHead/eyes: atraumatic, clear cornea, EOMIENT: moist mucous membranes, normal noseNeck: no JVD, no masses or swellingCardiovascular: normal heart sounds, regular rate and rhythmRespiratory: aerating well, clear to auscultationAbdomen: non-tender, softGenitourinary: no bladder distention, no flank painExtremities: no edema, no gangrene, no swelling Diagnosis, Assessment PlanFree Text A P:82-year-old male known to have hypertension, atrial fibrillation, supraventricular tachycardia with requiring ablation presenting with multivesselcardiovascular disease and he underwent CABG 07/13/2022. Transferred to rehab for therapy. Nephrology following for: 1. Acute kidney injury: Most likely prerenal as he recently had surgery. Renal function Improved.Plan to monitor. 2. Hypervolemia:Patient at high risk of volume overload so would reccommend lasix PO, lasix held due to hypotension .Volume improved. 3. Electrolytes: His electrolytes appear to be in normal range plan is to monitor and replace as needed. 4. HTN:Controlled with current medications.Plan to continue same.He develops orthostasis so medication doses minimised. 08/21 1. Acute kidney injury: Most likely prerenal as he recently had surgery. Resolving with better hemodynamics.His kidney function was stable plan was to monitor closely. 2. Hypervolemia:Patient at high risk of volume overload so would reccommend lasix PO .He recently developed orthostasis so dose reduced to 40 PO daily. Plan to increase lasix to Q12H and add midodrine for hypotension,patient is not dizzy anymore and he was tolerating Lasix at current dose. Plan was to monitor input and output closely. 3. Electrolytes: His electrolytes appear to be in normal range plan is to monitor and replace as needed. 4. HTN:Currently he develops orthostatic hypotension so not on any medications besides lasix and metoprolol. He was requiring midodrine to keep his blood pressures above 100 systolic. 08/22 1. Acute kidney injury: Most likely prerenal as he recently had surgery. Renal function Improved.Plan to monitor. 2. Hypervolemia:Patient at high risk of volume overload so would reccommend lasix PO, lasix held due to hypotension .Volume improved. 3. Electrolytes: His electrolytes appear to be in normal range plan is to monitor and replace as needed. 4. Hypotension: Midodrine dose increased .Plan to monitor. 08/23 1. LADARIUS on CKD: Patient with stable renal function. Plan to keepMAP>65 and avoidnephrotoxic agents. He was following specialist managers in [place] so plan to refer to his specialist managers post discharge. 2. Hypervolemia:Patient at high risk of volume overload so would reccommend lasix PO, lasix held due to hypotension .Volume improving slowly. 3. Electrolytes: His electrolytes appear to be in normal range plan is to monitor and replace as needed. 4. Hypotension: Midodrine dose increased .Plan to monitor. 08/24 1. LADARIUS on CKD: Patient with stable renal function. Plan to keepMAP>65 and avoidnephrotoxic agents. He was following specialist managers in [place] so plan to refer to his specialist managers post discharge. 2. Hypervolemia:Patient at high risk of volume overload so would reccommend lasix PO, lasix held due to hypotension .Volume stable. 3. Electrolytes: His electrolytes appear to be in normal range plan is to monitor and replace as needed. 4. Hypotension: Midodrine dose increased .Plan to monitor and increase midodrine if SBP<110. . LADARIUS on CKD: Patient with stable renal function. Plan to keepMAP>65 and avoidnephrotoxic agents. He was following specialist managers in [place] so plan to refer to his specialist managers post discharge. 2. Hypervolemia: .Volume stable.Plan to give lasix PRN . 3. Electrolytes: His electrolytes appear to be in normal range plan is to monitor and replace as needed. 4. Hypotension: Midodrine dose increased .Plan to monitor and increase midodrine if SBP<110. Consultants: cardiology, cardiovascular surgery, hospitalist, nephrology at 1058 RPT #:[id number] OF REPORTPRProgress [id number]:33:00G.[id number] for patient rooaNFQHLIDDXYFPRE6472-20-62P99:59:03 [facility] 2022-08-29 08:55:00 [id number]+Pa [id number]+TGhdQvelLV7 [id number]:55:00 [facility] ([facility])Rehab Progress NoteREPORT#:[id number] REPORT STATUS: SignedDATE:08/29/22 TIME: 08 PATIENT: BRENNAN AHN UNIT #: [id number]#: [id number] ROOM/BED: G503-2DOB: [birth year] AGE: 82 SEX: M ATTEND: Arthur Fuentes MDADM AUTHOR: Arthur Fuentes MD * ALL edits or amendments must be made on the electronic/computer document * SubjectiveChief complaint:Rehab follow-upDoing betterStill requires sitterNADEating well+ BMDenies MORA/N/V/D/CP14 systems reviewed and neg. except that above.History of present illness:82-year-old male with PMH of Alzheimer's dementia, CKD, HTN, atrial fibrillation, history of SVT/ablation who was transferred to [facility] ED after being foundto have multivessel coronary artery disease. Patient initially with was at homeand developed chest pains. [facility] which revealed multivessel CAD. Patient evaluated here by cardiothoracic surgery and underwent CABG x5 on 08/10. Patient with postoperative anemia and significant impairment in mobility. Pt is progressing slowly with therapy d/t weakness, self care deficit, decreased endurance and balance, and decreased functional mobility. Pt requiring acute inpt rehab for multidisciplinary team of nursing, therapy, and physicians. Pt is willing and able to participate in 3 hr/day inpt rehab to d/c home safely. Daughter states pt's prior level of function was independent. Currently patient has generalizedweakness. He lives by himself in a one-step up house. He denies any shortness of breath, nausea, vomiting, fever, chills. Denies chest pain. He is complaining of some constipation. He tells me that is in the process of sellinghis home. Preadmission screen was completed. Patient admitted to IRF. Objective GeneralVS:Vital Signs: Date Time Temp Pulse Resp B/P B/P Pulse O2 O2 Flow FiO2 Mean Ox Delivery Rate 08/29 0846 102 93/54 66.8 95 08/29 0839 93 109/66 80.1 95 08/29 0832 79 145/70 95.1 93 08/29 0722 98.1 74 18 155/70 98.6 98 08/29 0521 98.1 86 16 123/72 88.8 92 Room air 08/29 0519 98.1 87 18 129/63 85.0 97 Room air 08/29 0517 98.1 78 16 152/80 104.1 96 Room air 08/29 0229 99 Room air 08/29 0002 97.9 96 18 102/50 67.5 93 08/28 2354 97.3 78 18 122/67 85.1 97 08/28 2351 98.4 68 16 126/73 90.8 97 08/28 2105 97.7 97 19 134/54 80.5 95 08/28 2058 97.9 82 18 154/82 106.2 97 08/28 2046 98 Room air 08/28 1929 97.7 74 17 127/71 89.4 96 08/28 1541 98.1 69 18 148/79 102.3 93 Room air 08/28 1120 86 17 142/68 0.0 97 Room air PATIENT WEIGHT: Weight (lb): 221Weight (oz): 9.03Weight (kg): 100.500 Medications:Active Meds + DC'd Last 24 HrsAmiodarone HCl (CORDARONE) 200 MG DAILY PO Midodrine (PROAMATINE) 5 MG AC BK DAVE PO Midodrine (PROAMATINE) 5 MG BID 9A 5P PO (DC) Midodrine (PROAMATINE) 5 MG BID 9A 5P PRN PO Phenazopyridine HCl (PYRIDIUM) 200 MG TID PRN PRN PO (DC) Lidocaine (LIDODERM) 1 PATCH DAILY TOPICAL Midodrine (PROAMATINE) 2.5 MG BID 9A 5P PRN PO (DC) Lidocaine (LIDODERM) 1 PATCH DAILY TOPICAL Metoprolol Tartrate (LOPRESSOR) 12.5 MG Q12HR PO Duloxetine HCl (CYMBALTA) 60 MG BEDTIME PO Ezetimibe (ZETIA) 10 MG DAILY PO Amiodarone HCl (CORDARONE) 200 MG BID PO (DC) Aspirin (ASPIRIN) 81 MG DAILY PO Clopidogrel Bisulfate (Plavix) 75 MG DAILY PO Cyanocobalamin (Vitamin B-12 500 mcg tab) 500 MCG DAILY PO Ferrous Sulfate (FERROUS SULFATE) 325 MG DAILY PO Polyethylene Glycol (MIRALAX) 17 GM DAILY PO Pantoprazole (PROTONIX) 40 MG DAILY@0600 PO Budesonide (PULMICORT RESPULES) 0.5 MG RTBID INH Formoterol Fumarate (PERFOROMIST) 20 MCG RTBID NEB Docusate Sodium (COLACE) 100 MG BID PO Ipratropium [place] (ATROVENT) 500 MCG RTQ6H INH Sennosides (Senna Lax 8.6 MG TABLET) 17.2 MG BEDTIME PO Hydralazine HCl (APRESOLINE) 10 MG Q6H PRN PRN IV Acetaminophen (TYLENOL) 650 MG Q4H PRN PRN PO Ipratropium [place] (ATROVENT) 500 MCG RTQ2H PRN PRN INH Melatonin (Melatonin) 6 MG BEDTIME PRN PO Ondansetron HCl (ZOFRAN ODT) 4 MG TID PRN PRN SL Functional ProgressFunctional progress: - - PT SPECIFIC EVAL AND DAILY NOTE - - PT Daily Note: Yes PT Therapy Time Provided: Yes - - PT THERAPY TIME PROVIDED - - PT individual evaluation/treatment: Yes PT individual total time (minutes): 90 PT TOTAL eval/treatment time: 90 - - PT INDIVIDUAL THERAPY TIME - - PT individual therapy time in: 1100 PT individual therapy time out: 1230 - - PT DAILY NOTE - - PT daily note comment: S: PT FOUND SITTING AT EOB AND AGREED TO PARTICIPATE IN SKILLED PT TODAY. O: PT PARTCIPATED IN 90' OF SKILLED PT TODAY. PT EDUCATED ON STERNAL PRECAUTIONS, POSTURE, AND SAFETY PRECAUTIONS TO INCREASE AWARENESS THROUGHOUT SESSION. PT PROPELLED W/C WITH B/L LE, SPV, 90 FEET, 120 FEET, AND 100 FEET. PT AMBULATED WITH RW, W/C FOLLOW, CGA, 200 FEET AND 240 FEET. PT PERFORMED STANDING HR, MARCHES, AND HIP FLEXION (X30 REPS, #2, CGA). A: PT WEARING BINDER AND BP TAKEN PRIOR TO TX: SITTING 145/74 MMHG AND STANDING 109/74 MMHG. PT REQUIRESMUTIPLE REST INTERVALS SECONDARY TO FATIGUE. PT REQUESTEDTO USE THE RESTROOM, HAVING A BOWEL MOVEMENT, TAKING TIME. PT REQUIRES MOD POSTURAL CUES TO DECREASE FORWARD HEAD POSTURE AND TO KEEP RW NEARBY DURING GAIT. PT EXHIBITS UNSTEADINESS DURING STANDING EX. PT PERFORMED EX TO INCREASE STRENGTHAND ENDURANCE. PT MAKING STEADY PROGRESS TOWARDS GOALS. P: CONTINUE WITH POC. Physical ExamGeneral appearance: alert, awake, no acute distressPsych: alert, normal affect, oriented x 3HEENT: anicteric, mucosal membranes moist, pupils reactive to light, sclera clearNeck: non-tender, supple, no JVDCardiovascular: irregular rhythm, S1/S2, cap refill wnl, pulses intactRespiratory: diminished breath sounds, on oxygen, aerating wellAbdomen: bowel sounds present, non-distended, soft, non-tenderSkin: dry, normal temperature, no rash, bruising R thigh, mild L thigh, BUE, R hand Sl tender/edema, sternum incision RSH site CDI, bruising L chest wall, mildly tender, R elbow abrasionMusculoskeletal - general: Musculoskeletal - general: OA changes, normal tone, no swelling, Moves all 4 exts AG, calves NT, no cords, Homans negNeuro/TEAROOM HOST/HOSTESS: alert, oriented X 3, CNII-XII intact, normal speech, no motor deficits, no sensory deficits ResultsFindings/Data:Laboratory Tests: 08/29 0510 Serology SARS-CoV-2 Ag (Rapid) (Negative) Negative Laboratory Tests 08/26 0600 0618 0510 Chemistry Sodium (134 - 147 mEq/L) 137 Potassium (3.4 - 5.0 mEq/L) 3.9 Chloride (100 - 108 mEq/L) 101 Carbon Dioxide (21 - 33 mEq/l) 29 Anion Gap (0 - 20) 11 BUN (7 - 18 mg/dL) 23 Creatinine (0.6 - 1.3 mg/dL) 1.8 Glomerular Filtr Rate (70 - 80) 37.6 Glucose (70 - 110 mg/dL) 102 POC Glucose (70 - 110 MG/DL) 106 Calcium (8.0 - 10.5 mg/dL) 9.0 Ionized Calcium Suzanna (1.09 - 1.30 MMOL/L) 1.17 Albumin (3.4 - 5.0 g/dL) 3.20 Prealbumin (16.0 - 40.0 mg/dL) 12.0 Serology SARS-CoV-2 Ag (Rapid) (Negative) Negative Radiology data:Recent Impressions:ULTRASOUND - US RETROPERITONEAL COM 08/28 1300 Report Impression - Status: SIGNED Entered: 08/28/2022 1417 IMPRESSION: Bilateral renal simple cysts not necessitating follow-up. Impression By: Miriam - Aniket Loredo M.D. Diagnosis, Assessment PlanProblem List/A P: 1. CAD (coronary artery disease) 2. Afib 3. HTN (hypertension) 4. S/P CABG x 5 5. Impaired functional mobility, balance, gait, and endurance Free Text A P:Assessment:Multivessel CAD3/9: S/p CABG x5-Dr. Lind-fib s/p a LAAEndoscopic RGSV harvest08/16: Echo-EF 50-54%, small pericardial effusionSmall bilateral pleural effusions.Muscle weakness Unsteady gaitAlzheimer's dementia (as per family), poor memoryPostoperative anemiaAKI on CKDHTNImpairment in self-care, ADLs and functional mobility Plan:-Continue PT/OT-Case management for safe discharge planning.-Decubitus prevention-protective hydrating lotion-turn every 2 ohbkl-njxfjdx-Hiekw program-MiraLAX, senna-Nutrition, monitor the patient's p.o. intake, check albumin 3.5, 3.2 and prealbumin 14.3, 12, dietary consult, protein supplements. Cardiac diet. BMI above normal parameters. Working with dietary, follow up with PCP-Strict fall and safety precaution-DVT klwvbxullrd-LCAs-SL prophylaxis on Protonix-CAD on Plavix and aspirin, intolerant to statins-Pulmonary toilet frequent I-S, nebs, wean O2-Early mobilization-OOB to chair-Work on bed mobility, transfer training, ADLs, pre-gait and gait exercises as tolerable. -Increase endurance and strength-Pain management-Postop care as per CVS-Monitor telemetry-Cardiology on case-LADARIUS as per nephrology-He was following specialist managers in [place] so plan to refer to his specialist managers post discharge.-Dementia/confusion-Higher level of nursing care and monitoring for safety-Strict sternal precautions-patient with poor carryover of sternal precautions-Monitor sites of bruising and right hand pain-from previous phlebotomy sites-nosigns of fhuvnngow-Mjgyer-jfdlpxg B12 and ferrous mvjrngl-GOA-IO stable-orthostasis/dizziness-diuretic s reduced-midodrine 5 mg twice daily-use ENZO hose and abdominal binder when out of bed-monitor. Medications being monitored by cardiology-Removed sutures x2 from lower chest on 08/2502-lmxyqu-Dmhuvs-up with PCP for dementia cdvzccmxva-Ogodnva-RZ negative-completed Pyridium-symptoms resolved-08/22: Fall: Seen by trauma team after fall. CT head negative. Right shoulder x-ray negative for fracture. Patient patient appears to be at his baseline-08/24: Fall-no head injury-left rib pain-left rib film-no acute fractures, healing fractures of the left lateral 7th and 8th ribs. Small left pleural effusion-Lidoderm luvqn-rnxfmat-S elbow hurting more. 2 view R elbow x ray-no acute fracture-Lidoderm patch-pain management-Stable cardiac status-08/28 retroperitoneal ultrasound-bilateral renal simple cysts-no follow-up needed-Labs reviewed-WBC normal, hemoglobin 9.1, 8.9, 9.7 platelets stable, creatinine1.9, 2.2, 1.9, 1.8 magnesium normal, HgbA1C 5.2. -Advance therapies as tolerable -Case discussed with son-1:1 sitter due to multiple falls-Patient still has orthostasis with binder and ENZO hose. Midodrine dose increased. Requires multiple rest breaks. Patient ambulated with rolling walker 200 feet with contact-guard assist.-Team conference -infrastructure project manager checking on authorization for [facility] RPlease see team note.Plan and goals discussed with the patient. I agree with the teams findingELOS: [08/30 pending SNF acceptance]DC[facility] Total time was 34 minutes > 50% with patient performing physical examination, discussing with patient and son about removing sitter, fall precaustions, discharge plans, sternal precautions, plan of care, goals, therapies, progress, medications, labs. All questions answeredOrders: Procedure Date/time Status NEB TREATMENT SUBSQ 08/29 0744 Active 1:1 Sitter 08/29 0706 Active OT FUNCTIONAL TRN 15 MIN 08/29 UNK Complete OT EXERCISE 15MIN 08/29 UNK Complete OT ADL 08/29 UNK Complete NEB TREATMENT SUBSQ 08/28 9165 Complete Consultants: cardiology, cardiovascular surgery, hospitalist, nephrologyRehab attestation:Face to face exam completed. Treatment plan discussed with patient. Meets continued stay criteria. Agree with interdisciplinary treatment plan. at 1325 RPT #:[id number] OF REPORTPRProgress [id number]:55:00G.[id number] for patient exdzRWRLYAXXHFWLDN6819-38-22I07:25:42 [facility] 2022-08-28 14:55:00 [id number]/X UZWVma7tq7gWpY/i6k+uUCEEsMgaRU3+dx6Di [id number]:55:00 [facility] HospitalCard[facility] Progress NoteREPORT#:[id number] REPORT STATUS: SignedDATE:08/28/22 TIME: 1454 PATIENT: BRENNAN AHN UNIT #: [id number]#: [id number] [address]: [birth year] AGE: 82 SEX: M ATTEND: [facility] Fuentes [facility] AUTHOR: Catrina Shetty AGACNP * ALL edits or amendments must be made on the electronic/computer document * SubjectivePatient reports:No: complaints. Objective GeneralVS/I O:24 hour I O ending at 0700: 08/28 0700 08/27 1900 Intake Total Output Total 600 Balance -600 Number 0 Incontinent Voids Number Voids 3 Output, Urine 600 Vital Signs: Date Time Temp Pulse Resp B/P B/P Pulse O2 O2 Flow FiO2 Mean Ox Delivery Rate 08/28 1541 36.7 69 18 148/79 102.3 93 Room air 08/28 1120 86 17 142/68 0.0 97 Room air 08/28 0847 101 100/63 75.1 08/28 0846 96 95/58 69.9 08/28 0844 81 113/63 79.8 08/28 0806 95 Room air 08/28 0740 36.4 79 17 132/67 88.8 96 Room air 08/28 0323 98 Room air 08/27 2320 36.7 70 14 107/64 78.6 94 08/27 2102 99 Room air 08/27 194 36.9 80 14 116/64 81.6 96 PATIENT WEIGHT: Weight (lb): 221Weight (oz): 9.03Weight (kg): 100.500 Medications:Active Meds + DC'd Last 24 HrsMidodrine (PROAMATINE) 5 MG BID 9A 5P PO Midodrine (PROAMATINE) 5 MG BID 9A 5P PRN PO Phenazopyridine HCl (PYRIDIUM) 200 MG TID PRN PRN PO Phenazopyridine HCl (PYRIDIUM) 200 MG TID PO (DC) Lidocaine (LIDODERM) 1 PATCH DAILY TOPICAL Midodrine (PROAMATINE) 2.5 MG BID 9A 5P PRN PO (DC) Lidocaine (LIDODERM) 1 PATCH DAILY TOPICAL Metoprolol Tartrate (LOPRESSOR) 12.5 MG Q12HR PO Duloxetine HCl (CYMBALTA) 60 MG BEDTIME PO Ezetimibe (ZETIA) 10 MG DAILY PO Amiodarone HCl (CORDARONE) 200 MG BID PO Aspirin (ASPIRIN) 81 MG DAILY PO Clopidogrel Bisulfate (Plavix) 75 MG DAILY PO Cyanocobalamin (Vitamin B-12 500 mcg tab) 500 MCG DAILY PO Ferrous Sulfate (FERROUS SULFATE) 325 MG DAILY PO Polyethylene Glycol (MIRALAX) 17 GM DAILY PO Pantoprazole (PROTONIX) 40 MG DAILY@0600 PO Budesonide (PULMICORT RESPULES) 0.5 MG RTBID INH Formoterol Fumarate (PERFOROMIST) 20 MCG RTBID NEB Docusate Sodium (COLACE) 100 MG BID PO Ipratropium [place] (ATROVENT) 500 MCG RTQ6H INH Sennosides (Senna Lax 8.6 MG TABLET) 17.2 MG BEDTIME PO Hydralazine HCl (APRESOLINE) 10 MG Q6H PRN PRN IV Acetaminophen (TYLENOL) 650 MG Q4H PRN PRN PO Ipratropium [place] (ATROVENT) 500 MCG RTQ2H PRN PRN INH Melatonin (Melatonin) 6 MG BEDTIME PRN PO Ondansetron HCl (ZOFRAN ODT) 4 MG TID PRN PRN SL Physical ExamGeneral appearance: alert, awakeNeck: non-tender, no JVDCardiovascular: CV assessment: irregularly irregularRespiratory: decreased breath sounds, no distressAbdomen: soft, non-tender, normal bowel sounds, no distentionGenitourinary: no flank pain, no urinary catheterLower extremity: LE assessment: edema (trace edema RLE - harvest site), no edemaMusculoskeletal: normal inspectionNeuro/TEAROOM HOST/HOSTESS: alertSkin: dryPsychiatry: normal affect, normal mood ResultsFindings/Data:Laboratory Tests 08/28 0618 Chemistry Albumin (3.4 - 5.0 g/dL) 3.20 L Prealbumin (16.0 - 40.0 mg/dL) 12.0 L Radiology data:Recent Impressions:ULTRASOUND - US RETROPERITONEAL COM 08/28 1300 Report Impression - Status: SIGNED Entered: 08/28/2022 1417 IMPRESSION: Bilateral renal simple cysts not necessitating follow-up. Impression By: Miriam Loredo M.D. Telemetry Interpretation:afib with controlled rate Diagnosis, Assessment PlanPlan discussed with: nurse Free Text DxA P NotesFree Text DxA P Notes:82 YO male with MHX of Afib, HTN, HLD, CAD who is s/p 5 vessel CABG and PVI and ALAA. The patient is transferred to [facility] for inpatient rehabilitation. We are consulted for continuity of cardiac-related care. 1. CAD s/p CABG x 5 (NGUYEN-LAD, SVG-Olga Lidia, SVG-OM, SVG-LPLA, SVG-PDA) continue asa, BB, plavix, Zetiaecho 08/12- LVEF 50-54%, left pleural effusionintolerant of statin, will consider nonstatin med such as Repatha or Nexletol outpatient 2. A-fib: Paroxysmal - rate controlleds/p PVI and ARISTEO amputationdecrease amiodarone to 200 mg daily - DC prior to dischargeContinue low-dose metoprolol to 12.5 mg BID no need for AC since left atrial appendage was removed during CABG 3. HTN BP stableContinue low-dose metoprolol to 12.5 mg BID 4. AKInephrology following 5. Dizziness 2/2 orthostatic hypotensionmidodrine for orthostatic hypotensioncompression stocking and abdominal binder before OOB Taken off Lasix, will re-assess need for diuretic on a daily basis 6. s/p Fall 08/22 and 08/24CT head no acute findingR Elbow XR - no fractureL rib XR -healing fractures of the left lateral seventh and eighth ribs continue supportive care at 1656 at 1402 RPT #:[id number] OF REPORTPRProgress [id number]:55:00G.[id number] for patient mcijMMTGKKJLOQMSHQ9037-87-08O46:58:13 [facility] 2022-08-28 13:41:00 [id number] [id number]/ednd8kDeBWYD5lRgZgXgrYOkN4+ [id number]:41:00 [facility] HospitalInternal Medicine Prog. NoteREPORT#:[id number] REPORT STATUS: SignedDATE:08/28/22 TIME: 1341 PATIENT: BRENNAN AHN UNIT #: [id number]#: [id number] [address] [birth year] AGE: 82 SEX: M ATTEND: Arthur Fuentes [facility] AUTHOR: Devin Fox DO * ALL edits or amendments must be made on the electronic/computer document * SubjectiveChief complaint:pt c/o of some cough and pain in SS chest as a result Review of SystemsAll systems rev neg: except as marked Objective GeneralVS/I O:Vital Signs Date Temp Pulse Resp B/P B/P Mean Pulse Ox FiO2 08/27-08/28 97.5-98.4 70-101 14-18 95-163/58-71 0.0-102.0 94-99 Last Documented: Result Date Time Pulse Ox 97 08/28 1120 B/P 142/68 08/28 1120 B/P Mean 0.0 08/28 1120 O2 Delivery Room air 08/28 1120 Pulse 86 08/28 1120 Resp 17 08/28 1120 Temp 97.5 08/28 0740 FiO2 21 08/22 1948 24 hour I O ending at 0700: 08/28 0700 08/27 1900 Intake Total Output Total 600 Balance -600 Number 0 Incontinent Voids Number Voids 3 Output, Urine 600 PATIENT WEIGHT: Weight (lb): 221Weight (oz): 9.03Weight (kg): 100.500 Medications:Active Meds + DC'd Last 24 HrsMidodrine (PROAMATINE) 5 MG BID 9A 5P PO Midodrine (PROAMATINE) 5 MG BID 9A 5P PRN PO Phenazopyridine HCl (PYRIDIUM) 200 MG TID PRN PRN PO Phenazopyridine HCl (PYRIDIUM) 200 MG TID PO (DC) Lidocaine (LIDODERM) 1 PATCH DAILY TOPICAL Midodrine (PROAMATINE) 2.5 MG BID 9A 5P PRN PO (DC) Lidocaine (LIDODERM) 1 PATCH DAILY TOPICAL Metoprolol Tartrate (LOPRESSOR) 12.5 MG Q12HR PO Duloxetine HCl (CYMBALTA) 60 MG BEDTIME PO Ezetimibe (ZETIA) 10 MG DAILY PO Amiodarone HCl (CORDARONE) 200 MG BID PO Aspirin (ASPIRIN) 81 MG DAILY PO Clopidogrel Bisulfate (Plavix) 75 MG DAILY PO Cyanocobalamin (Vitamin B-12 500 mcg tab) 500 MCG DAILY PO Ferrous Sulfate (FERROUS SULFATE) 325 MG DAILY PO Polyethylene Glycol (MIRALAX) 17 GM DAILY PO Pantoprazole (PROTONIX) 40 MG DAILY@0600 PO Budesonide (PULMICORT RESPULES) 0.5 MG RTBID INH Formoterol Fumarate (PERFOROMIST) 20 MCG RTBID NEB Docusate Sodium (COLACE) 100 MG BID PO Ipratropium [place] (ATROVENT) 500 MCG RTQ6H INH Sennosides (Senna Lax 8.6 MG TABLET) 17.2 MG BEDTIME PO Hydralazine HCl (APRESOLINE) 10 MG Q6H PRN PRN IV Acetaminophen (TYLENOL) 650 MG Q4H PRN PRN PO Ipratropium [place] (ATROVENT) 500 MCG RTQ2H PRN PRN INH Melatonin (Melatonin) 6 MG BEDTIME PRN PO Ondansetron HCl (ZOFRAN ODT) 4 MG TID PRN PRN SL Physical ExamGeneral appearance: alert, awake, orientedHead/Eyes: EOMI, PERRLANeck: non-tender, no JVDCardiovascular: normal heart sounds, regular rate rhythmRespiratory: aerating well, clear to auscultationAbdomen: non-tender, normal bowel soundsExtremities: Extremities: no cyanosis, no edemaNeuro/TEAROOM HOST/HOSTESS: alert, oriented x 3, CNII-XII intactSkin: ecchymosis (l chest) ResultsFindings/Data:Laboratory Tests 08/28 0618 Chemistry Albumin (3.4 - 5.0 g/dL) 3.20 L Prealbumin (16.0 - 40.0 mg/dL) 12.0 L Diagnosis, Assessment PlanHospital course to date:82-year-old male with past medical history of hypertension, atrial fibrillation,supraventricular tachycardia status post ablation who was admitted with reports of multivessel coronary artery disease found on a cardiac catheterization done at [facility]. Patient was transferred to [facility] for CABG. He underwent NFEHr8v. 1. Coronary artery disease-Status post CABG x5, ALAA, PVI-Continue metoprolol, Plavix, aspirin 2. Atrial fibrillation-Continue po amiodarone for rate control- taper AMIO per cards-Continue metoprolol-Monitor and review telemetry 3. Debility/-.-PT/OT- PMR- Inpt Rehab 4. ARF- Trend cr 1.3-1.9-2.2-2.0-1.9-2.2- post op, post lasix therefore likely pre-renal- baseline CKD is suspected- nephro consulted 5. anemia- acute, post op expecteed- monitor and transfuse if hg <7- cont po Iron- Trend Hg 9.1 6. Delirium/ dementia-Likely due to sundowning/dementia-Monitor closely-Patient is neurologically intact 7. FALLs- 08/22, 08/24- ct head neg- R shoulder Xr neg- R elbow pain- mild- pain meds prn- sitter at bedside 8. Dysuria- UA neg- on pyridium prn- consider Urologist consult 9. Orthostatic hypotension- cont Midodrine and adjust up - check orthostatic VS- mild orthostasis 10. RIB fx- 08/24 Left RIb xr -HEALING L 7th and 8th rib fractures- unknown chronicity - ribs fractures show "healing" ALREADY d/w RN and Pt and son in detailstotal time spent 35mins d/w SON Consultants: cardiology, cardiovascular surgery, hospitalist, nephrology Quality: Gen Med Crit Care Current MedicationsCurrent medication review:I attest that the foregoing medication list in the medical record is true, accurate, and complete to the best of my knowledge. Advanced Care Plan 65 or OlderDiscussed with: patientDiscussion included: code status at 0917 RPT #:[id number] OF REPORTPRProgress [id number]:41:[id number] for patient [id number]:18:24 [facility] 2022-08-28 12:37:00 [id number]:37:00 [facility])Cardiothoracic Surgery ProgREPORT#:[id number] REPORT STATUS: SignedDATE:08/28/22 TIME: 1237 PATIENT: BRENNAN AHN UNIT #: [id number]#: [id number] [address] [birth year] AGE: 82 SEX: M ATTEND: Arthur Fuentes [facility] AUTHOR: Pamela Burnette Physic * ALL edits or amendments must be made on the electronic/computer document * GeneralStatus post:CABG PVI SubjectiveChief complaint:Follow up CABG Review of SystemsConstitutional:Denies: chills, fever, malaise. Allergy/Immun:Denies: allergic reaction. ENT:Denies: sore throat. Respiratory:Denies: hemoptysis, SOB. GI:Denies: nausea, vomiting. Heme:Denies: bleeding. Neuro:Denies: headache. All systems rev neg: except as marked Objective GeneralVS/I OLast Documented: Result Date Time Pulse Ox 97 08/28 1120 B/P 142/68 08/28 1120 B/P Mean 0.0 08/28 1120 O2 Delivery Room air 08/28 1120 Pulse 86 08/28 1120 Resp 17 08/28 1120 Temp 97.5 08/28 0740 FiO2 21 08/22 1948 24 hour I O ending at 0700: 08/28 0700 08/27 1900 Intake Total Output Total 600 Balance -600 Number 0 Incontinent Voids Number Voids 3 Output, Urine 600 PATIENT WEIGHT: Weight (lb): 221Weight (oz): 9.03Weight (kg): 100.500 Physical ExamGeneral appearance: alert, awake, orientedWound/incision: Location:sternumHEENT: anictericCardiovascular: normal heart sounds, regular rate rhythmRespiratory: aerating well, clear to auscultation, symmetric expansion, no distressAbdomen: soft, non-tender, no distentionExtremities: moves allNeuro/TEAROOM HOST/HOSTESS: alert, oriented X 3, normal speech, no motor deficitsPsychiatry: normal affect, normal mood Quality: Trauma Gen Surg Advanced Care Plan 65 or OlderDiscussed with: patientDiscussion included: code status Current MedicationsCurrent medication review:I attest that the foregoing medication list in the medical record is true, accurate, and complete to the best of my knowledge. Diagnosis, Assessment PlanHospital course to date:Hospital course to date:82 year old with PMH of hypertension, atrial fibrillation, On Eliquis, Hx of SVT ablation 20 years ago transferred to [facility] with new findings of multi-vessel CAD. He reports he was woken from Sleep on Sunday AM with COmplaints of chest pains. EMS aas called and patient was taken to [facility]. He underwent LHC and found to have multi-vessel CAD by Dr Sanchez. Patient was transferred to [facility] for CABG. Patient lives independently. Daughter is at bedside. Patient reports last dose of Elliquis was Sunday AM. Echo was done at [facility] showing EF 55%, Mild MR, Mild AI, mild LVH. According to his records, he has a hx of Chronic kidney disease with baseline Creatine reportedly 1.5. He does report he has seen a renal MD in the past. Assessment/ Plan1) CAD, Mutli-vessel2) hypertension Continue BBLKR Add Norvasc 5 mg3) Atrial fibrillation. Last dose of Eliquis Sunday AM Obtain EKG4) BPH Continue flomax Workup for CABG underway. Patient was seen and examined by Dr Hurd. Coronary artery bypass surgery was discussed with the patient. The risk of the operation,including the STS score, cristian of blleding, infection, heart attack, stroke, Tracheostomy etc discussed with the patient. CT chest, carotid US, Vein mapping ordered. 08/11/22POD 1 s/p CABG x 5 (NGUYEN-LAD, SVG-Olga Lidia, SVG-OM, SVG-LPLA, SVG-PDA), PVI, ALAA, EVH (RGSV)Patient hemodynamically stable this morning, having episodes of vagal response and BP drops 20 points, SR and sinus arrythmnia noted on monitoring analyst, V epicardial wires on backup rate of 50Amiodarone bolus and dripKeep MS chest tube and monitor outputs, DC LP chest tube after ambulationMinimal oxygen requirements on 2l nasal cannula, encourage deep breathing and I-S useCXR and labs reviewedPain managementGlycemic control on insulin dripCardiac diet, nutritional supplementsBowel regimen, + gasStrict I Os, daily weights, albmuin x 1 given for decreased UOP- monitor hourlySCDs for DVT and PPI for GI prophylaxisPT/OTMonitor patient closely in CVICU, continue supportive carePatient seen with Dr. Hurd, plan of care discussed with ICU team. 08/12 Alert and oriented, up in the chairRemains on amiodarone drip for A-fibWean dopamine offChest x-ray reviewed. Breathing comfortably on room airCreatinine increased to 1.9, urine output 1.5 L last night after the boluses of LasixRepeat renal panel today show creatinine 2.2. Nephrology consulted, hold off onadditional LasixReplace electrolytesEncourage I-S and mobilizationGlycemic controlledKeep in CVICU for close monitoringPatient seen and plan reviewed with Dr Piper, Dr Kirkpatrick, [facility] and multidisciplinaryteam 08/13 Intermittently confused. Continue delirium precautionsMinimal O2 requirements, wean O2 as toleratedAllow for permissive hypertension as urine output improved with higher blood pressureMonitor renal functionEncourage p.o. intake, bowel regimenRemains in A-fib, heart rate fairly controlled. Amiodarone drip at 0.5Discontinue mediastinal chest tubeGlycemic controlKeep in CVICU for close monitoring.Patient seen and plan reviewed with MCKAYLA Armenta multidisciplinary teamFamily updated at the bedside 08/14 Patient is alert and oriented, delirium precautionsO2 requirements, encourage I-SPermissive hypertension for better renal perfusionCreatinine trending down, good urine output. Hold Lasix for nowEncourage p.o. intake, bowel regimenElectrolyte replacement as neededKeep in CVICU todayPlan for rehab. Awaiting insurance approvalPatient was seen and plan reviewed with MCKAYLA Rojo and multidisciplinary team 08/15 No major events overnight Resp status stable on RA. Encourage ISHD stable. Remains in A fib, HR controlled Continue PO amio, BB increased to 25 mg BID Renal function improved, good UOP Will DC pacing wires tomorrow PT/OTPlan for rehab. Awaiting insurance approvalPatient was seen and plan reviewed with MCKAYLA Rojo and multidisciplinary team 08/16Creatine 1.9--> 2.0- Followed by Renal. appreciate input. DE-LINED. Longo outAmbulating. UO: PO lasix today. Cardiac: Atrial fib- rate controlled. On po amio- Pacing wires removed- Echo ordered.DVT studies orderd. Respiratory: On room air. Small left pleural effsuion. GI: + BMGU: Voiding well. Renal followingDispo: Rehab when bed available. 08/17Patient resting comfortable. Seen in inpatient rehab.Ambulating well. Working with PTVoiding well. Positive bowel movements.Respiratory on room air.Cardiac: Sinus rhythm. Will decrease amiod to 200 BIDGI: + BMContinue pT/OTmaking good progress. 08/21 Patient seen in rehab Respiratory status stable on RA No changes in sternal incision. Continue sternal precautions for 6 weeks Monitor renal function. Diuresis by nephrology Encourge PO intake, bowel regimen Continue rehab 08/24 S/p fall on 08/22, CT negative for acute process Patient was having orthostatic hypotension, medications adjusted, midodrine 5 mg3 times daily, compression stockings and abdominal binder before out of bedVolume status improved. Lasix discontinuedNo further episodes of orthostatic hypotension todayContinue rehab 08/28/22Patient had mutliple falls in rehab. CT head negatvie for acute process. Compression stockings and abdominal binder in place. BP appears improved. On midodrine 5 mg BIDVolume status imporved. Consultants: cardiology, cardiovascular surgery, hospitalist, nephrology at 1242 RPT #:[id number] OF REPORTPRProgress [id number]:37:[id number] for patient [id number]:42:39 [facility] 2022-08-28 11:14:00 [id number]:14:00 [facility] ([facility])Nephrology Progress NoteREPORT#:[id number] REPORT STATUS: SignedDATE:08/28/22 TIME: 1114 PATIENT: BRENNAN AHN UNIT #: [id number]#: [id number] [address] [birth year] AGE: 82 SEX: M ATTEND: Arthur Fuentes [facility] AUTHOR: Maura Terrazas MD * ALL edits or amendments must be made on the electronic/computer document * SubjectiveChief complaint:chest painHPI:82-year-old male known to have hypertension, atrial fibrillation, supraventricular tachycardia with requiring ablation presenting with multivesselcardiovascular disease and he underwent CABG 07/13/2022. He endorsed having kidney issues in the past and seeing a specialist managers at [place] but his kidney function had been stable since then.He developed oliguria,LADARIUS and hypervolemia post CABG but had now improved and was transferred to rehab. 08/28Patient appearing comfortable, sleeping comfortably, nurse reporting that he waseating well. Objective GeneralVS/I O:Vital Signs: Date Time Temp Pulse Resp B/P B/P Pulse O2 O2 Flow FiO2 Mean Ox Delivery Rate 08/29 0846 102 93/54 66.8 95 08/29 0839 93 109/66 80.1 95 08/29 0832 79 145/70 95.1 93 08/29 0722 36.7 74 18 155/70 98.6 98 08/29 0521 36.7 86 16 123/72 88.8 92 Room air 08/29 0519 36.7 87 18 129/63 85.0 97 Room air 08/29 0517 36.7 78 16 152/80 104.1 96 Room air 08/29 0229 99 Room air 08/29 0002 36.6 96 18 102/50 67.5 93 08/28 2354 36.3 78 18 122/67 85.1 97 08/28 2351 36.9 68 16 126/73 90.8 97 08/28 2105 36.5 97 19 134/54 80.5 95 08/28 2058 36.6 82 18 154/82 106.2 97 08/28 2046 98 Room air 08/28 1929 36.5 74 17 127/71 89.4 96 08/28 1541 36.7 69 18 148/79 102.3 93 Room air 24 hour I O ending at 0700: 08/29 0700 08/28 1900 Intake Total 715 Output Total Balance 715 Intake, Oral 715 PATIENT WEIGHT: Weight (lb): 221Weight (oz): 9.03Weight (kg): 100.500 Physical ExamGeneral appearance: sleeping comfortablyHead/eyes: atraumatic, clear cornea, EOMIENT: moist mucous membranes, normal noseNeck: no JVD, no masses or swellingCardiovascular: normal heart sounds, regular rate and rhythmRespiratory: aerating well, clear to auscultationAbdomen: non-tender, softGenitourinary: no bladder distention, no flank painExtremities: no edema, no gangrene, no swelling Diagnosis, Assessment PlanFree Text A P:82-year-old male known to have hypertension, atrial fibrillation, supraventricular tachycardia with requiring ablation presenting with multivesselcardiovascular disease and he underwent CABG 07/13/2022. Transferred to rehab for therapy. Nephrology following for: 1. Acute kidney injury: Most likely prerenal as he recently had surgery. Renal function Improved.Plan to monitor. 2. Hypervolemia:Patient at high risk of volume overload so would reccommend lasix PO, lasix held due to hypotension .Volume improved. 3. Electrolytes: His electrolytes appear to be in normal range plan is to monitor and replace as needed. 4. HTN:Controlled with current medications.Plan to continue same.He develops orthostasis so medication doses minimised. 08/21 1. Acute kidney injury: Most likely prerenal as he recently had surgery. Resolving with better hemodynamics.His kidney function was stable plan was to monitor closely. 2. Hypervolemia:Patient at high risk of volume overload so would reccommend lasix PO .He recently developed orthostasis so dose reduced to 40 PO daily. Plan to increase lasix to Q12H and add midodrine for hypotension,patient is not dizzy anymore and he was tolerating Lasix at current dose. Plan was to monitor input and output closely. 3. Electrolytes: His electrolytes appear to be in normal range plan is to monitor and replace as needed. 4. HTN:Currently he develops orthostatic hypotension so not on any medications besides lasix and metoprolol. He was requiring midodrine to keep his blood pressures above 100 systolic. 08/22 1. Acute kidney injury: Most likely prerenal as he recently had surgery. Renal function Improved.Plan to monitor. 2. Hypervolemia:Patient at high risk of volume overload so would reccommend lasix PO, lasix held due to hypotension .Volume improved. 3. Electrolytes: His electrolytes appear to be in normal range plan is to monitor and replace as needed. 4. Hypotension: Midodrine dose increased .Plan to monitor. 08/23 1. LADARIUS on CKD: Patient with stable renal function. Plan to keepMAP>65 and avoidnephrotoxic agents. He was following specialist managers in [place] so plan to refer to his specialist managers post discharge. 2. Hypervolemia:Patient at high risk of volume overload so would reccommend lasix PO, lasix held due to hypotension .Volume improving slowly. 3. Electrolytes: His electrolytes appear to be in normal range plan is to monitor and replace as needed. 4. Hypotension: Midodrine dose increased .Plan to monitor. 08/24 1. LADARIUS on CKD: Patient with stable renal function. Plan to keepMAP>65 and avoidnephrotoxic agents. He was following specialist managers in [place] so plan to refer to his specialist managers post discharge. 2. Hypervolemia:Patient at high risk of volume overload so would reccommend lasix PO, lasix held due to hypotension .Volume stable. 3. Electrolytes: His electrolytes appear to be in normal range plan is to monitor and replace as needed. 4. Hypotension: Midodrine dose increased .Plan to monitor and increase midodrine if SBP<110. /. LADARIUS on CKD: Patient with stable renal function. Plan to keepMAP>65 and avoidnephrotoxic agents. He was following specialist managers in [place] so plan to refer to his specialist managers post discharge. 2. Hypervolemia: .Volume stable.Plan to give lasix PRN . 3. Electrolytes: His electrolytes appear to be in normal range plan is to monitor and replace as needed. 4. Hypotension: Midodrine dose increased .Plan to monitor and increase midodrine if SBP<110. Consultants: cardiology, cardiovascular surgery, hospitalist, nephrology at 1133 RPT #:[id number] OF REPORTPRProgress [id number]:[id number] for patient [id number]:33:52 [facility] 2022-08-28 11:01:00 [id number]:01:00 [facility] ([facility])Nephrology Progress NoteREPORT#:[id number] REPORT STATUS: SignedDATE:08/28/22 TIME: 1101 PATIENT: BRENNAN AHN UNIT #: [id number]#: [id number] [facility]OM[facility]ED[facility]DOB: [birth year] AGE: 82 SEX: M ATTEND: Arthur Fuentes [facility] AUTHOR: Maura Terrazas MD * ALL edits or amendments must be made on the electronic/computer document * SubjectiveChief complaint:chest painHPI:82-year-old male known to have hypertension, atrial fibrillation, supraventricular tachycardia with requiring ablation presenting with multivesselcardiovascular disease and he underwent CABG 07/13/2022. He endorsed having kidney issues in the past and seeing a specialist managers at [place] but his kidney function had been stable since then.He developed oliguria,LADARIUS and hypervolemia post CABG but had now improved and was transferred to rehab. 08/27Patient appearing comfortable, sleeping comfortably, nurse reporting that he waseating well. Objective GeneralVS/I O:Vital Signs: Date Time Temp Pulse Resp B/P B/P Pulse O2 O2 Flow FiO2 Mean Ox Delivery Rate 08/28 0847 101 100/63 75.1 08/28 0846 96 95/58 69.9 08/28 0844 81 113/63 79.8 08/28 0806 95 Room air 08/28 0740 36.4 79 17 132/67 88.8 96 Room air 08/28 0323 98 Room air 08/27 2321 36.7 70 14 107/64 78.6 94 08/27 2102 99 Room air 08/27 1941 36.9 80 14 116/64 81.6 96 08/27 1520 36.5 77 18 163/71 102.0 97 Room air 24 hour I O ending at 0700: 08/28 0700 08/27 1900 Intake Total Output Total 600 Balance -600 Number 0 Incontinent Voids Number Voids 3 Output, Urine 600 PATIENT WEIGHT: Weight (lb): 221Weight (oz): 9.03Weight (kg): 100.500 Physical ExamGeneral appearance: sleeping comfortablyHead/eyes: atraumatic, clear cornea, EOMIENT: moist mucous membranes, normal noseNeck: no JVD, no masses or swellingCardiovascular: normal heart sounds, regular rate and rhythmRespiratory: aerating well, clear to auscultationAbdomen: non-tender, softGenitourinary: no bladder distention, no flank painExtremities: no edema, no gangrene, no swelling Diagnosis, Assessment PlanFree Text A P:82-year-old male known to have hypertension, atrial fibrillation, supraventricular tachycardia with requiring ablation presenting with multivesselcardiovascular disease and he underwent CABG 07/13/2022. Transferred to rehab for therapy. Nephrology following for: 1. Acute kidney injury: Most likely prerenal as he recently had surgery. Renal function Improved.Plan to monitor. 2. Hypervolemia:Patient at high risk of volume overload so would reccommend lasix PO, lasix held due to hypotension .Volume improved. 3. Electrolytes: His electrolytes appear to be in normal range plan is to monitor and replace as needed. 4. HTN:Controlled with current medications.Plan to continue same.He develops orthostasis so medication doses minimised. 08/21 1. Acute kidney injury: Most likely prerenal as he recently had surgery. Resolving with better hemodynamics.His kidney function was stable plan was to monitor closely. 2. Hypervolemia:Patient at high risk of volume overload so would reccommend lasix PO .He recently developed orthostasis so dose reduced to 40 PO daily. Plan to increase lasix to Q12H and add midodrine for hypotension,patient is not dizzy anymore and he was tolerating Lasix at current dose. Plan was to monitor input and output closely. 3. Electrolytes: His electrolytes appear to be in normal range plan is to monitor and replace as needed. 4. HTN:Currently he develops orthostatic hypotension so not on any medications besides lasix and metoprolol. He was requiring midodrine to keep his blood pressures above 100 systolic. 08/22 1. Acute kidney injury: Most likely prerenal as he recently had surgery. Renal function Improved.Plan to monitor. 2. Hypervolemia:Patient at high risk of volume overload so would reccommend lasix PO, lasix held due to hypotension .Volume improved. 3. Electrolytes: His electrolytes appear to be in normal range plan is to monitor and replace as needed. 4. Hypotension: Midodrine dose increased .Plan to monitor. 08/23 1. LADARIUS on CKD: Patient with stable renal function. Plan to keepMAP>65 and avoidnephrotoxic agents. He was following specialist managers in [place] so plan to refer to his specialist managers post discharge. 2. Hypervolemia:Patient at high risk of volume overload so would reccommend lasix PO, lasix held due to hypotension .Volume improving slowly. 3. Electrolytes: His electrolytes appear to be in normal range plan is to monitor and replace as needed. 4. Hypotension: Midodrine dose increased .Plan to monitor. 08/24 1. LADARIUS on CKD: Patient with stable renal function. Plan to keepMAP>65 and avoidnephrotoxic agents. He was following specialist managers in [place] so plan to refer to his specialist managers post discharge. 2. Hypervolemia:Patient at high risk of volume overload so would reccommend lasix PO, lasix held due to hypotension .Volume stable. 3. Electrolytes: His electrolytes appear to be in normal range plan is to monitor and replace as needed. 4. Hypotension: Midodrine dose increased .Plan to monitor and increase midodrine if SBP<110. /. LADARIUS on CKD: Patient with stable renal function. Plan to keepMAP>65 and avoidnephrotoxic agents. He was following specialist managers in [place] so plan to refer to his specialist managers post discharge. 2. Hypervolemia:Patient at high risk of volume overload so would reccommend lasix PO, lasix held due to hypotension .Volume stable. 3. Electrolytes: His electrolytes appear to be in normal range plan is to monitor and replace as needed. 4. Hypotension: Midodrine dose increased .Plan to monitor and increase midodrine if SBP<110. Consultants: cardiology, cardiovascular surgery, hospitalist, nephrology at 1108 RPT #:[id number] OF REPORTPRProgress [id number]:01:00G.[id number] for patient soyeAWIDGWXOGXZYPJ1622-86-15J29:08:48 [facility] 2022-08-28 07:00:00 [id number]+RX0RP PRmB8ry4pQhdp5dN/erE8j2T3YHEGLfEbxqan [id number]:00:00 [facility] ([facility])Rehab Progress NoteREPORT#:[id number] REPORT STATUS: SignedDATE:08/28/22 TIME: 0700 PATIENT: BRENNAN AHN UNIT #: [id number]#: [id number] ROOM/BED: 503-2DOB: [birth year] AGE: 82 SEX: M ATTEND: Arthur Fuentes MDADM AUTHOR: Arthur Fuentes MD * ALL edits or amendments must be made on the electronic/computer document * SubjectiveChief complaint:Rehab follow-upDoing betterNADEating well+ BMDenies MORA/N/V/D/CP14 systems reviewed and neg. except that above.History of present illness:82-year-old male with PMH of Alzheimer's dementia, CKD, HTN, atrial fibrillation, history of SVT/ablation who was transferred to [facility] ED after being foundto have multivessel coronary artery disease. Patient initially with was at homeand developed chest pains. [facility] multivessel [facility]. Patient evaluated here by cardiothoracic surgery and underwent CABG x5 on 08/10. Patient with postoperative anemia and significant impairment in mobility. Pt is progressing slowly with therapy d/t weakness, self care deficit, decreased endurance and balance, and decreased functional mobility. Pt requiring acute inpt rehab for multidisciplinary team of nursing, therapy, and physicians. Pt is willing and able to participate in 3 hr/day inpt rehab to d/c home safely. Daughter states pt's prior level of function was independent. Currently patient has generalizedweakness. He lives by himself in a one-step up house. He denies any shortness of breath, nausea, vomiting, fever, chills. Denies chest pain. He is complaining of some constipation. He tells me that is in the process of sellinghis home. Preadmission screen was completed. Patient admitted to IRF. Objective GeneralVS:Vital Signs: Date Time Temp Pulse Resp B/P B/P Pulse O2 O2 Flow FiO2 Mean Ox Delivery Rate 08/28 0323 98 Room air 08/27 2321 98.1 70 14 107/64 78.6 94 08/27 2102 99 Room air 08/27 1941 98.4 80 14 116/64 81.6 96 08/27 1520 97.7 77 18 163/71 102.0 97 Room air 08/27 1047 112 17 96/61 72.4 08/27 1035 85 113/64 80.2 08/27 0735 91 97/53 67.8 08/27 0732 80 18 96/57 70.1 98 Room air 08/27 0726 97.5 75 18 126/70 88.6 93 Room air PATIENT WEIGHT: Weight (lb): 221Weight (oz): 9.03Weight (kg): 100.500 Medications:Active Meds + DC'd Last 24 HrsPhenazopyridine HCl (PYRIDIUM) 200 MG TID PRN PRN PO Phenazopyridine HCl (PYRIDIUM) 200 MG TID PO (DC) Lidocaine (LIDODERM) 1 PATCH DAILY TOPICAL Midodrine (PROAMATINE) 2.5 MG BID 9A 5P PRN PO Lidocaine (LIDODERM) 1 PATCH DAILY TOPICAL Metoprolol Tartrate (LOPRESSOR) 12.5 MG Q12HR PO Duloxetine HCl (CYMBALTA) 60 MG BEDTIME PO Ezetimibe (ZETIA) 10 MG DAILY PO Amiodarone HCl (CORDARONE) 200 MG BID PO Aspirin (ASPIRIN) 81 MG DAILY PO Clopidogrel Bisulfate (Plavix) 75 MG DAILY PO Cyanocobalamin (Vitamin B-12 500 mcg tab) 500 MCG DAILY PO Ferrous Sulfate (FERROUS SULFATE) 325 MG DAILY PO Polyethylene Glycol (MIRALAX) 17 GM DAILY PO Pantoprazole (PROTONIX) 40 MG DAILY@0600 PO Budesonide (PULMICORT RESPULES) 0.5 MG RTBID INH Formoterol Fumarate (PERFOROMIST) 20 MCG RTBID NEB Docusate Sodium (COLACE) 100 MG BID PO Ipratropium [place] (ATROVENT) 500 MCG RTQ6H INH Sennosides (Senna Lax 8.6 MG TABLET) 17.2 MG BEDTIME PO Hydralazine HCl (APRESOLINE) 10 MG Q6H PRN PRN IV Acetaminophen (TYLENOL) 650 MG Q4H PRN PRN PO Ipratropium [place] (ATROVENT) 500 MCG RTQ2H PRN PRN INH Melatonin (Melatonin) 6 MG BEDTIME PRN PO Ondansetron HCl (ZOFRAN ODT) 4 MG TID PRN PRN SL Functional ProgressFunctional progress:- - PT DAILY NOTE - - PT daily note comment: S: PT REPORTS HE IS FEELING VERY GOOD TODAY,NO ACHESOR PAINS WITH ACTIVITIES IN THERPAY. O: PT WAS SEEN FOR 90MIN OF THERAPY BEGINNING W/ DONOF ENZO HOSE AND BINDER,TAKE BP IN SITTING AND STANDING RECORD ASSIST PT TO GET DRESSED DUE TO UNSTEADINESS.ASSIST PT TO REST ROOM MIN-A WITH STAND STEP TRANSFER REQUIRESSTEADYING WELL REMINDERS WITH STERNAL PRECAUTIONS.AFTER VOIDING PT REQUIRES TO HAVE BLADDER SCANNED.GAIT TRAININGDWNSTAIRS SITTER ASSIST FOR SAFETY DUE TO OCC DIZZINESS PT AMB 82',75' MIN<>MOD-A BECOMES SLIGHTY OFF AFTER WALKING SHORT DISTANCE POSSIBLE DUE TO DIZZINESS,LENGTHY REST STOPS AFTER EACH WALK. WC MOBILTY PT PROPELL 85'BI LE CUES WITH SAFETY AWARENESS WHEN MANUEVERING AROUND OBJECTS DOWNSTAIRS. EDUCATE PT ON SAFETY W/TRANSFERS,SAFETY W/FALL PREVENTION,SAFETY W/WC MOBILITY,MAINTAINING STERNAL PRECAUTIONS. A; PT MAKING STEADY PROGRESS WITH FUNCTIONAL GOALS,LIMITED DUE TO COG/MEMORY DEFICITS,CAN BE IMPULSIVE ON OCC REPETITION WITH SAFETY CUES. P: PT CONT.WITH PT POC. Physical ExamGeneral appearance: alert, awake, no acute distressPsych: alert, normal affect, oriented x 3HEENT: anicteric, mucosal membranes moist, pupils reactive to light, sclera clearNeck: non-tender, supple, no JVDCardiovascular: irregular rhythm, S1/S2, cap refill wnl, pulses intactRespiratory: diminished breath sounds, on oxygen, aerating wellAbdomen: bowel sounds present, non-distended, soft, non-tenderSkin: dry, normal temperature, no rash, bruising R thigh, mild L thigh, BUE, R hand Sl tender/edema, sternum incision RSH site CDI, bruising L chest wall, mildly tender, R elbow abrasionMusculoskeletal - general: Musculoskeletal - general: OA changes, normal tone, no swelling, Moves all 4 exts AG, calves NT, no cords, Homans negNeuro/TEAROOM HOST/HOSTESS: alert, oriented X 3, CNII-XII intact, normal speech, no motor deficits, no sensory deficits ResultsFindings/Data:Laboratory Tests: 08/28 0618 Chemistry Albumin (3.4 - 5.0 g/dL) 3.20 L Prealbumin (16.0 - 40.0 mg/dL) 12.0 L Laboratory Tests 08/26 0600 0618 Chemistry Sodium (134 - 147 mEq/L) 137 Potassium (3.4 - 5.0 mEq/L) 3.9 Chloride (100 - 108 mEq/L) 101 Carbon Dioxide (21 - 33 mEq/l) 29 Anion Gap (0 - 20) 11 BUN (7 - 18 mg/dL) 23 Creatinine (0.6 - 1.3 mg/dL) 1.8 Glomerular Filtr Rate (70 - 80) 37.6 Glucose (70 - 110 mg/dL) 102 POC Glucose (70 - 110 MG/DL) 106 Calcium (8.0 - 10.5 mg/dL) 9.0 Ionized Calcium Suzanna (1.09 - 1.30 MMOL/L) 1.17 Albumin (3.4 - 5.0 g/dL) 3.20 Prealbumin (16.0 - 40.0 mg/dL) 12.0 Radiology data:Recent Impressions:RADIOLOGY - XR SHOULDER 2 + V RT 08/22 1525 Report Impression - Status: SIGNED Entered: 08/22/2022 1752 IMPRESSION: No acute findings. Impression By: [email or web address] - Ramakrishna Dhaliwal M.D.CAT SCAN - CT HEAD/BRAIN W/O CONT 08/22 1546 Report Impression - Status: SIGNED Entered: 08/22/2022 1658 IMPRESSION: No acute intracranial abnormality, as above. Impression By: [email or web address] - Yosi Padron M.D.RADIOLOGY - XR ELBOW 2 VIEWS RT 08/23 1840 Report Impression - Status: SIGNED Entered: 08/23/2022 1923 IMPRESSION: No fracture or dislocation. Impression By: [email or web address] - Madi Pope M.D.RADIOLOGY - XR RIBS UNI 2 V LT 08/24 1455 Report Impression - Status: SIGNED Entered: 08/24/2022 1606 IMPRESSION: Healing fractures of the left lateral 7th and 8th ribs.Small left pleural effusion.Impression By: [email or web address] - Florentino Perez M.D. Diagnosis, Assessment PlanProblem List/A P: 1. CAD (coronary artery disease) 2. Afib 3. HTN (hypertension) 4. S/P CABG x 5 5. Impaired functional mobility, balance, gait, and endurance Free Text A P:Assessment:Multivessel CAD3: S/p CABG x5-Dr. Lind-fib s/p a LAAEndoscopic RGSV harvest08/16: Echo-EF 50-54%, small pericardial effusionSmall bilateral pleural effusions.Muscle weakness Unsteady gaitAlzheimer's dementia (as per family), poor memoryPostoperative anemiaAKI on CKDHTNImpairment in self-care, ADLs and functional mobility Plan:-Continue PT/OT-Case management for safe discharge planning.-Decubitus prevention-protective hydrating lotion-turn every 2 tgdyi-dbxxrsr-Oqrtg program-MiraLAX, senna-Nutrition, monitor the patient's p.o. intake, check albumin 3.5, 3.2 and prealbumin 14.3, 12, dietary consult, protein supplements. Cardiac diet. BMI above normal parameters. Working with dietary, follow up with PCP-Strict fall and safety precaution-DVT qklakgyjorn-SMAl-UM prophylaxis on Protonix-CAD on Plavix and aspirin, intolerant to statins-Pulmonary toilet frequent I-S, nebs, wean O2-Early mobilization-OOB to chair-Work on bed mobility, transfer training, ADLs, pre-gait and gait exercises as tolerable. -Increase endurance and strength-Pain management-Postop care as per CVS-Monitor telemetry-Cardiology on case-LADARIUS as per nephrology-He was following specialist managers in [place] so plan to refer to his specialist managers post discharge.-Dementia/confusion-Higher level of nursing care and monitoring for safety-Strict sternal precautions-patient with poor carryover of sternal precautions-Monitor sites of bruising and right hand pain-from previous phlebotomy sites-nosigns of ghftqeryf-Cyczej-kizbkfq B12 and ferrous raorkbd-ZYO-UG stable-orthostasis/dizziness-diuretic s reduced-midodrine added as needed-use ENZO hose and abdominal binder when out of bed-monitor. Medications being monitored by cardiology-Removed sutures x2 from lower chest on 08/2584-Lvyjlk-ag with PCP for dementia zkruelzbmq-Rfxddxa-SL negative-completed Pyridium-symptoms resolved-08/22: Fall: Seen by trauma team after fall. CT head negative. Right shoulder x-ray negative for fracture. Patient patient appears to be at his baseline-08/24: Fall-no head injury-left rib pain-left rib film-no acute fractures, healing fractures of the left lateral 7th and 8th ribs. Small left pleural effusion-Lidoderm xaaux-mtubwmk-H elbow hurting more. 2 view R elbow x ray-no acute fracture-Lidoderm patch-pain management-Stable cardiac status-Labs reviewed-WBC normal, hemoglobin 9.1, 8.9, 9.7 platelets stable, creatinine1.9, 2.2, 1.9, 1.8 magnesium normal, HgbA1C 5.2. -Advance therapies as tolerable -Case discussed with son-1:1 sitter due to multiple falls-remove sitter and monitor-PT MAKING STEADY PROGRESS WITH FUNCTIONAL GOALS,LIMITED DUE TO COG/MEMORY DEFICITS,CAN BE IMPULSIVE ON OCC REPETITION WITH SAFETY CUES. -Team conference PM RPlease see team note.Plan and goals discussed with the patient. I agree with the teams findingELOS: [08/29]DC-SNF placementDME-bedside commode, rolling walker Total time was 34 minutes > 50% with patient performing physical examination, discussing with patient and son about removing sitter, fall precaustions, discharge plans, sternal precautions, plan of care, goals, therapies, progress, medications, labs. All questions answeredOrders: Procedure Date/time Status Discontinue 1:1 Sitter 08/28 1700 Active NEB TREATMENT SUBSQ 08/28 0900 Active Telemetry Discontinue 08/28 0640 Active NEB TREATMENT SUBSQ 08/28 0324 Active NEB TREATMENT SUBSQ 08/27 2359 Complete NEB TREATMENT SUBSQ 08/27 2103 Active NEB TREATMENT SUBSQ 08/26 2359 Complete Consultants: cardiology, cardiovascular surgery, hospitalist, nephrologyRehab attestation:Face to face exam completed. Treatment plan discussed with patient. Meets continued stay criteria. Agree with interdisciplinary treatment plan. at 1226 RPT #:[id number] OF REPORTPRProgress [id number]:00:00G.[id number] for patient cwvbHZGSDEQNYFHZAX5484-40-02C49:26:56 [facility] 2022-08-27 14:05:00 [id number] hL70MGjM9AxVZy4xjPzuqFF97bI2NSQdcJ7N5 fG9964-08-72F46:05:00 [facility] ([facility])Cardiology Progress NoteREPORT#:[id number] REPORT STATUS: SignedDATE:08/27/22 TIME: 1405 PATIENT: BRENNAN AHN UNIT #: [id number]#: [id number] [address] [birth year] AGE: 82 SEX: M ATTEND: Arthur Fuentes [facility] AUTHOR: Flaco Nair MD * ALL edits or amendments must be made on the electronic/computer document * SubjectiveChief complaint:None Objective GeneralVS/I O:24 hour I O ending at 0700: 08/27 0700 08/26 1900 Intake Total 715 Output Total 174 Balance 541 Intake, Oral 715 Output, Urine 174 Vital Signs: Date Time Temp Pulse Resp B/P B/P Pulse O2 O2 Flow FiO2 Mean Ox Delivery Rate 08/27 1047 112 17 96/61 72.4 08/27 1035 85 113/64 80.2 08/27 0735 91 97/53 67.8 08/27 0732 80 18 96/57 70.1 98 Room air 08/27 07 97.5 75 18 126/70 88.6 93 Room air 08/27 0501 97.7 76 16 147/79 101.8 96 08/27 0052 97.7 74 16 139/71 93.7 94 08/26 2028 97.5 92 18 128/72 90.8 94 08/26 1948 96 Room air 08/26 1554 92 96/63 73.9 96 08/26 1552 86 22 117/62 80.5 97 08/26 1549 97.7 77 22 115/66 82.7 98 PATIENT WEIGHT: Weight (lb): 221Weight (oz): 9.03Weight (kg): 100.500 Medications:Active Meds + DC'd Last 24 HrsPhenazopyridine HCl (PYRIDIUM) 200 MG TID PO Lidocaine (LIDODERM) 1 PATCH DAILY TOPICAL Midodrine (PROAMATINE) 2.5 MG BID 9A 5P PRN PO Lidocaine (LIDODERM) 1 PATCH DAILY TOPICAL Metoprolol Tartrate (LOPRESSOR) 12.5 MG Q12HR PO Duloxetine HCl (CYMBALTA) 60 MG BEDTIME PO Ezetimibe (ZETIA) 10 MG DAILY PO Amiodarone HCl (CORDARONE) 200 MG BID PO Aspirin (ASPIRIN) 81 MG DAILY PO Clopidogrel Bisulfate (Plavix) 75 MG DAILY PO Cyanocobalamin (Vitamin B-12 500 mcg tab) 500 MCG DAILY PO Ferrous Sulfate (FERROUS SULFATE) 325 MG DAILY PO Polyethylene Glycol (MIRALAX) 17 GM DAILY PO Pantoprazole (PROTONIX) 40 MG DAILY@0600 PO Budesonide (PULMICORT RESPULES) 0.5 MG RTBID INH Formoterol Fumarate (PERFOROMIST) 20 MCG RTBID NEB Docusate Sodium (COLACE) 100 MG BID PO Ipratropium [place] (ATROVENT) 500 MCG RTQ6H INH Sennosides (Senna Lax 8.6 MG TABLET) 17.2 MG BEDTIME PO Hydralazine HCl (APRESOLINE) 10 MG Q6H PRN PRN IV Acetaminophen (TYLENOL) 650 MG Q4H PRN PRN PO Ipratropium [place] (ATROVENT) 500 MCG RTQ2H PRN PRN INH Melatonin (Melatonin) 6 MG BEDTIME PRN PO Ondansetron HCl (ZOFRAN ODT) 4 MG TID PRN PRN SL Physical ExamGeneral appearance: alert, awake, orientedNeck: non-tender, no JVDCardiovascular: CV assessment: irregularly irregularRespiratory: decreased breath sounds, no distressAbdomen: soft, non-tender, normal bowel sounds, no distentionGenitourinary: no flank pain, no urinary catheterLower extremity: LE assessment: edema (trace edema RLE - harvest site), no edemaMusculoskeletal: normal inspectionNeuro/TEAROOM HOST/HOSTESS: alertSkin: dryPsychiatry: normal affect, normal mood ResultsFindings/Data:Laboratory Tests 08/27 08/26 0600 2025 Chemistry Sodium (134 - 147 mEq/L) 137 Potassium (3.4 - 5.0 mEq/L) 3.9 Chloride (100 - 108 mEq/L) 101 Carbon Dioxide (21 - 33 mEq/l) 29 Anion Gap (0 - 20) 11 BUN (7 - 18 mg/dL) 23 H Creatinine (0.6 - 1.3 mg/dL) 1.8 H Glomerular Filtr Rate (70 - 80) 37.6 L Glucose (70 - 110 mg/dL) 102 POC Glucose (70 - 110 MG/DL) 106 Calcium (8.0 - 10.5 mg/dL) 9.0 Ionized Calcium Suzanna (1.09 - 1.30 MMOL/L) 1.17 Results: labs reviewed, vital signs reviewed, vital signs stable Diagnosis, Assessment PlanConsultants: cardiology, cardiovascular surgery, hospitalist, nephrology Free Text DxA P NotesFree Text DxA P Notes:82 YO male with MHX of Afib, HTN, HLD, CAD who is s/p 5 vessel CABG and PVI and ALAA. The patient is transferred to [facility] for inpatient rehabilitation. We are consulted for continuity of cardiac-related care. 1. CAD s/p CABG x 5 (NGUYEN-LAD, SVG-Olga Lidia, SVG-OM, SVG-LPLA, SVG-PDA) continue asa, BB, plavix, Zetiaecho 08/12- LVEF 50-54%, left pleural effusionintolerant of statin, will consider nonstatin med such as Repatha or Nexletol outpatientLE edema subsided , off PO lasix d/t orthostatic hypotension- has midodrone as needed for hypotension 2. A-fib: Paroxysmal - rate controlleds/p PVI and ARISTEO amputationamiodarone 200 mg BID - taper dose prior to dischargeContinue low-dose metoprolol to 12.5 mg BID no need for AC since left atrial appendage was removed during CABG 3. HTN BP stableMidodrine changed to 2.5 mg twice daily as neededContinue low-dose metoprolol to 12.5 mg BID 4. AKInephrology following 5. Dizziness 2/2 orthostatic hypotension -improvingNo report of orthostasis stasis todayChange midodrine to as needed since BP stablecompression stocking and abdominal binder before OOB Taken off Lasix, will re-assess need for diuretic on a daily basis 6. s/p Fall 08/22 and 08/24CT head no acute findingR Elbow XR - no fractureL rib XR -healing fractures of the left lateral seventh and eighth ribs continue supportive care 08/26/22:-STABLE CARDIAC STATUS-PT/OT 08/27/22:-CAD/ACB-PAF-ARISTEO LIGATION-STABLE CARDIAC TGTHBT-EMXPWVFPNI-PT/OT-DISCUSSED CARE WITH HIS NURSE at 1406 RPT #:[id number] OF REPORTPRProgress [id number]:05:00G.[id number] for patient jowkCGZRKZVCTHMFFA2482-10-09T64:07:26 [facility] 2022-08-27 13:50:00 [id number] PsZD8/T7hLGUl5MEOCW6LW5ifb5YnJrZG1wHm 7s0333-89-89G26:50:00 [facility] Prog. NoteREPORT#:[id number] REPORT STATUS: SignedDATE:08/27/22 TIME: 1350 PATIENT: BRENNAN AHN UNIT #: [id number]#: [id number] [address] [birth year] AGE: 82 SEX: M ATTEND: Arthur Fuentes [facility] AUTHOR: Devin Fox DO * ALL edits or amendments must be made on the electronic/computer document * SubjectiveChief complaint:pt c/o of some cough and pain in SS chest as a resultComments:late entry progress note Review of SystemsAll systems rev neg: except as marked Objective GeneralVS/I O:Vital SignsDate Temp Pulse Resp B/P B/P Mean Pulse Ox HoB974/-08/27 97.5-97.7 74-112 16-22 96-147/53-79 67.8-101.8 93-98 Last Documented: Result Date Time B/P 96/61 08/27 1047 B/P Mean 72.4 08/27 1047 Pulse 112 08/27 1047 Resp 17 08/27 1047 Pulse Ox 98 08/27 0732 O2 Delivery Room air 08/27 0732 Temp 97.5 08/27 0726 FiO2 21 08/22 1948 24 hour I O ending at 0700: 08/27 0700 08/26 1900 Intake Total 715 Output Total 174 Balance 541 Intake, Oral 715 Output, Urine 174 PATIENT WEIGHT: Weight (lb): 221Weight (oz): 9.03Weight (kg): 100.500 Medications:Active Meds + DC'd Last 24 HrsPhenazopyridine HCl (PYRIDIUM) 200 MG TID PO Lidocaine (LIDODERM) 1 PATCH DAILY TOPICAL Midodrine (PROAMATINE) 2.5 MG BID 9A 5P PRN PO Lidocaine (LIDODERM) 1 PATCH DAILY TOPICAL Metoprolol Tartrate (LOPRESSOR) 12.5 MG Q12HR PO Duloxetine HCl (CYMBALTA) 60 MG BEDTIME PO Ezetimibe (ZETIA) 10 MG DAILY PO Amiodarone HCl (CORDARONE) 200 MG BID PO Aspirin (ASPIRIN) 81 MG DAILY PO Clopidogrel Bisulfate (Plavix) 75 MG DAILY PO Cyanocobalamin (Vitamin B-12 500 mcg tab) 500 MCG DAILY PO Ferrous Sulfate (FERROUS SULFATE) 325 MG DAILY PO Polyethylene Glycol (MIRALAX) 17 GM DAILY PO Pantoprazole (PROTONIX) 40 MG DAILY@0600 PO Budesonide (PULMICORT RESPULES) 0.5 MG RTBID INH Formoterol Fumarate (PERFOROMIST) 20 MCG RTBID NEB Docusate Sodium (COLACE) 100 MG BID PO Ipratropium [place] (ATROVENT) 500 MCG RTQ6H INH Sennosides (Senna Lax 8.6 MG TABLET) 17.2 MG BEDTIME PO Hydralazine HCl (APRESOLINE) 10 MG Q6H PRN PRN IV Acetaminophen (TYLENOL) 650 MG Q4H PRN PRN PO Ipratropium [place] (ATROVENT) 500 MCG RTQ2H PRN PRN INH Melatonin (Melatonin) 6 MG BEDTIME PRN PO Ondansetron HCl (ZOFRAN ODT) 4 MG TID PRN PRN SL Physical ExamGeneral appearance: alert, awakeHead/Eyes: EOMI, PERRLANeck: non-tender, no JVDCardiovascular: normal heart sounds, regular rate rhythmRespiratory: aerating well, clear to auscultationAbdomen: non-tender, normal bowel soundsExtremities: Extremities: no cyanosis, no edemaNeuro/TEAROOM HOST/HOSTESS: alert, oriented x 3, CNII-XII intactSkin: ecchymosis (l chest) ResultsFindings/Data:Laboratory Tests 08/27/22599:[Embedded Image Not Available]Laboratory Tests 08/27 08/26 062025 Chemistry Sodium (134 - 147 mEq/L) 137 Potassium (3.4 - 5.0 mEq/L) 3.9 Chloride (100 - 108 mEq/L) 101 Carbon Dioxide (21 - 33 mEq/l) 29 Anion Gap (0 - 20) 11 BUN (7 - 18 mg/dL) 23 H Creatinine (0.6 - 1.3 mg/dL) 1.8 H Glomerular Filtr Rate (70 - 80) 37.6 L Glucose (70 - 110 mg/dL) 102 POC Glucose (70 - 110 MG/DL) 106 Calcium (8.0 - 10.5 mg/dL) 9.0 Ionized Calcium Suzanna (1.09 - 1.30 MMOL/L) 1.17 Diagnosis, Assessment PlanHospital course to date:82-year-old male with past medical history of hypertension, atrial fibrillation,supraventricular tachycardia status post ablation who was admitted with reports of multivessel coronary artery disease found on a cardiac catheterization done at [facility]. Patient was transferred to [facility] for CABG. He underwent ZBIGn4f. 1. Coronary artery disease-Status post CABG x5, ALAA, PVI-Continue metoprolol, Plavix, aspirin 2. Atrial fibrillation-Continue po amiodarone for rate control- taper AMIO per cards-Continue metoprolol-Monitor and review telemetry 3. Debility/-.-PT/OT- PMR- Inpt Rehab 4. ARF- Trend cr 1.3-1.9-2.2-2.0-1.9-2.2- post op, post lasix therefore likely pre-renal- baseline CKD is suspected- nephro consulted 5. anemia- acute, post op expecteed- monitor and transfuse if hg <7- cont po Iron- Trend Hg 9.1 6. Delirium/ dementia-Likely due to sundowning/dementia-Monitor closely-Patient is neurologically intact 7. FALLs- 08/22, 08/24- ct head neg- R shoulder Xr neg- R elbow pain- mild- pain meds prn- sitter at bedside 8. Dysuria- UA neg- on pyridium prn- consider Urologist consult 9. Orthostatic hypotension- cont Midodrine and adjust up - check orthostatic VS- mild orthostasis 10. RIB fx- 08/24 Left RIb xr -HEALING L 7th and 8th rib fractures- unknown chronicity if ribs fractures show healing, d/w RN and Pt and son in detailstotal time spent 35mins d/w Consultants: cardiology, cardiovascular surgery, hospitalist, nephrology Quality: Gen Med Crit Care Current MedicationsCurrent medication review:I attest that the foregoing medication list in the medical record is true, accurate, and complete to the best of my knowledge. Advanced Care Plan 65 or OlderDiscussed with: patientDiscussion included: code status at 0917 RPT #:[id number] OF REPORTPRProgress [id number]:50:00G.[id number] for patient hterAIJVOPJEWZXBHI5513-30-34O26:18:23 [facility] 2022-08-27 13:48:00 [id number]/[id number] 3r3ggzmipbSBlK/LCfLnI9GU37t580AK0FSez [id number]:48:00 [facility] HospitalInternal Medicine Prog. NoteREPORT#:[id number] REPORT STATUS: SignedDATE:08/27/22 TIME: 1348 PATIENT: MARITZABRENNAN GARRETT UNIT #: [id number]#: [id number] [address] [birth year] AGE: 82 SEX: M [facility]END[facility] AUTHOR: Devin Fox DO * ALL edits or amendments must be made on the electronic/computer document * SubjectiveChief complaint:pt c/o of some cough and pain in SS chest as a result Review of SystemsAll systems rev neg: except as marked Objective GeneralVS/I O:Vital SignsDate Temp Pulse Resp B/P B/P Mean Pulse Ox FmO957/25-08/27 97.5-97.7 74-112 16-22 96-147/53-79 67.8-101.8 93-98 Last Documented: Result Date Time B/P 96/61 08/27 1047 B/P Mean 72.4 08/27 1047 Pulse 112 08/27 1047 Resp 17 08/27 1047 Pulse Ox 98 08/27 0732 O2 Delivery Room air 08/27 0732 Temp 97.5 08/27 0726 FiO2 21 08/22 1948 24 hour I O ending at 0700: 08/27 0700 08/26 1900 Intake Total 715 Output Total 174 Balance 541 Intake, Oral 715 Output, Urine 174 PATIENT WEIGHT: Weight (lb): 221Weight (oz): 9.03Weight (kg): 100.500 Medications:Active Meds + DC'd Last 24 HrsPhenazopyridine HCl (PYRIDIUM) 200 MG TID PO Lidocaine (LIDODERM) 1 PATCH DAILY TOPICAL Midodrine (PROAMATINE) 2.5 MG BID 9A 5P PRN PO Lidocaine (LIDODERM) 1 PATCH DAILY TOPICAL Metoprolol Tartrate (LOPRESSOR) 12.5 MG Q12HR PO Duloxetine HCl (CYMBALTA) 60 MG BEDTIME PO Ezetimibe (ZETIA) 10 MG DAILY PO Amiodarone HCl (CORDARONE) 200 MG BID PO Aspirin (ASPIRIN) 81 MG DAILY PO Clopidogrel Bisulfate (Plavix) 75 MG DAILY PO Cyanocobalamin (Vitamin B-12 500 mcg tab) 500 MCG DAILY PO Ferrous Sulfate (FERROUS SULFATE) 325 MG DAILY PO Polyethylene Glycol (MIRALAX) 17 GM DAILY PO Pantoprazole (PROTONIX) 40 MG DAILY@0600 PO Budesonide (PULMICORT RESPULES) 0.5 MG RTBID INH Formoterol Fumarate (PERFOROMIST) 20 MCG RTBID NEB Docusate Sodium (COLACE) 100 MG BID PO Ipratropium [place] (ATROVENT) 500 MCG RTQ6H INH Sennosides (Senna Lax 8.6 MG TABLET) 17.2 MG BEDTIME PO Hydralazine HCl (APRESOLINE) 10 MG Q6H PRN PRN IV Acetaminophen (TYLENOL) 650 MG Q4H PRN PRN PO Ipratropium [place] (ATROVENT) 500 MCG RTQ2H PRN PRN INH Melatonin (Melatonin) 6 MG BEDTIME PRN PO Ondansetron HCl (ZOFRAN ODT) 4 MG TID PRN PRN SL Physical ExamGeneral appearance: alert, awake, answers most questions appropriatelyHead/Eyes: EOMI, PERRLANeck: non-tender, no JVDCardiovascular: normal heart sounds, regular rate rhythmRespiratory: aerating well, clear to auscultationAbdomen: non-tender, normal bowel soundsExtremities: Extremities: no cyanosis, no edemaNeuro/TEAROOM HOST/HOSTESS: alert, oriented x 3, CNII-XII intactSkin: ecchymosis (l chest) ResultsFindings/Data:Laboratory Tests 08/27/22 06:[Embedded Image Not Available]Laboratory Tests 08/27 Chemistry Sodium (134 - 147 mEq/L) 137 Potassium (3.4 - 5.0 mEq/L) 3.9 Chloride (100 - 108 mEq/L) 101 Carbon Dioxide (21 - 33 mEq/l) 29 Anion Gap (0 - 20) 11 BUN (7 - 18 mg/dL) 23 H Creatinine (0.6 - 1.3 mg/dL) 1.8 H Glomerular Filtr Rate (70 - 80) 37.6 L Glucose (70 - 110 mg/dL) 102 POC Glucose (70 - 110 MG/DL) 106 Calcium (8.0 - 10.5 mg/dL) 9.0 Ionized Calcium Suzanna (1.09 - 1.30 MMOL/L) 1.17 Diagnosis, Assessment PlanHospital course to date:82-year-old male with past medical history of hypertension, atrial fibrillation,supraventricular tachycardia status post ablation who was admitted with reports of multivessel coronary artery disease found on a cardiac catheterization done at [facility]. Patient was transferred to [facility] for CABG. He underwent QCQWs8o. 1. Coronary artery disease-Status post CABG x5, ALAA, PVI-Continue metoprolol, Plavix, aspirin 2. Atrial fibrillation-Continue po amiodarone for rate control- taper AMIO per cards-Continue metoprolol-Monitor and review telemetry 3. Debility/-.-PT/OT- PMR- Inpt Rehab 4. ARF- Trend cr 1.3-1.9-2.2-2.0-1.9-2.2- post op, post lasix therefore likely pre-renal- baseline CKD is suspected- nephro consulted 5. anemia- acute, post op expecteed- monitor and transfuse if hg <7- cont po Iron- Trend Hg 9.1 6. Delirium/ dementia-Likely due to sundowning/dementia-Monitor closely-Patient is neurologically intact 7. FALLs- 08/22, 08/24- ct head neg- R shoulder Xr neg- R elbow pain- mild- pain meds prn- sitter at bedside 8. Dysuria- UA neg- on pyridium prn- consider Urologist consult 9. Orthostatic hypotension- cont Midodrine and adjust up - check orthostatic VS- mild orthostasis 10. RIB fx- 08/24 Left RIb xr -HEALING L 7th and 8th rib fractures- unknown chronicity if ribs fractures show healing, d/w RN and Pt and son in detailstotal time spent 35mins d/w Consultants: cardiology, cardiovascular surgery, hospitalist, nephrology Quality: Gen Med Crit Care Current MedicationsCurrent medication review:I attest that the foregoing medication list in the medical record is true, accurate, and complete to the best of my knowledge. Advanced Care Plan 65 or OlderDiscussed with: patientDiscussion included: code status at 0917 RPT #:[id number] OF REPORTPRProgress [id number]:48:00G.[id number] for patient mbftOKRQLIPBSQLOXQ3772-56-43H76:18:23 [facility]ACL 2022-08-27 05:51:00 [id number] I0qo/MBZMIZtj/aLPx0DlcgN382uWsSFlEyNE [id number]:51:00 [facility] ([facility])Rehab Progress NoteREPORT#:[id number] REPORT STATUS: SignedDATE:08/27/22 TIME: 05 PATIENT: BRENNAN AHN UNIT #: [id number]#: [id number] [address] AGE: 82 SEX: M ATTEND: Arthur Fuentes MDADM AUTHOR: Florentino Jimenez * ALL edits or amendments must be made on the electronic/computer document * Florentino Jimenez 08/27/22 0551:SubjectiveChief complaint:Rehab follow-upRequires sitter due to fallsNADEating well+ BMDenies MORA/N/V/D/CP14 systems reviewed and neg. except that above.History of present illness:82-year-old male with PMH of Alzheimer's dementia, CKD, HTN, atrial fibrillation, history of SVT/ablation who was transferred to [facility] ED after being foundto have multivessel coronary artery disease. Patient initially with was at homeand developed chest pains. [facility] multivessel CAD. Patient evaluated here by cardiothoracic surgery and underwent CABG x5 on 08/10. Patient with postoperative anemia and significant impairment in mobility. Pt is progressing slowly with therapy d/t weakness, self care deficit, decreased endurance and balance, and decreased functional mobility. Pt requiring acute inpt rehab for multidisciplinary team of nursing, therapy, and physicians. Pt is willing and able to participate in 3 hr/day inpt rehab to d/c home safely. Daughter states pt's prior level of function was independent. Currently patient has generalizedweakness. He lives by himself in a one-step up house. He denies any shortness of breath, nausea, vomiting, fever, chills. Denies chest pain. He is complaining of some constipation. He tells me that is in the process of sellinghis home. Preadmission screen was completed. Patient admitted to IRF. Objective GeneralVS:Vital Signs: Date Time Temp Pulse Resp B/P B/P Pulse O2 O2 Flow FiO2 Mean Ox Delivery Rate 08/27 0501 97.7 76 16 147/79 101.8 96 08/27 0052 97.7 74 16 139/71 93.7 94 08/26 2028 97.5 92 18 128/72 90.8 94 08/26 1948 96 Room air 08/26 1554 92 96/63 73.9 96 08/26 1552 86 22 117/62 80.5 97 08/26 1549 97.7 77 22 115/66 82.7 98 08/26 1104 91 101/64 76.2 95 08/26 1102 98 96/61 72.4 98 08/26 1057 97.9 79 20 111/69 82.8 95 08/26 0719 91 110/68 81.8 95 08/26 0718 80 112/60 77.5 98 08/26 0716 97.9 74 18 122/71 87.6 97 PATIENT WEIGHT: Weight (lb): 221Weight (oz): 9.03Weight (kg): 100.500 Medications:Active Meds + DC'd Last 24 HrsPhenazopyridine HCl (PYRIDIUM) 200 MG TID PO Lidocaine (LIDODERM) 1 PATCH DAILY TOPICAL Midodrine (PROAMATINE) 2.5 MG BID 9A 5P PRN PO Lidocaine (LIDODERM) 1 PATCH DAILY TOPICAL Metoprolol Tartrate (LOPRESSOR) 12.5 MG Q12HR PO Duloxetine HCl (CYMBALTA) 60 MG BEDTIME PO Ezetimibe (ZETIA) 10 MG DAILY PO Amiodarone HCl (CORDARONE) 200 MG BID PO Aspirin (ASPIRIN) 81 MG DAILY PO Clopidogrel Bisulfate (Plavix) 75 MG DAILY PO Cyanocobalamin (Vitamin B-12 500 mcg tab) 500 MCG DAILY PO Ferrous Sulfate (FERROUS SULFATE) 325 MG DAILY PO Polyethylene Glycol (MIRALAX) 17 GM DAILY PO Pantoprazole (PROTONIX) 40 MG DAILY@0600 PO Budesonide (PULMICORT RESPULES) 0.5 MG RTBID INH Formoterol Fumarate (PERFOROMIST) 20 MCG RTBID NEB Docusate Sodium (COLACE) 100 MG BID PO Ipratropium [place] (ATROVENT) 500 MCG RTQ6H INH Sennosides (Senna Lax 8.6 MG TABLET) 17.2 MG BEDTIME PO Hydralazine HCl (APRESOLINE) 10 MG Q6H PRN PRN IV Acetaminophen (TYLENOL) 650 MG Q4H PRN PRN PO Ipratropium [place] (ATROVENT) 500 MCG RTQ2H PRN PRN INH Melatonin (Melatonin) 6 MG BEDTIME PRN PO Ondansetron HCl (ZOFRAN ODT) 4 MG TID PRN PRN SL Functional ProgressFunctional progress:PT daily note comment: S; PT REPORTS PAIN ON RIGHT FLANK AREA NURSE AND WERE NOTIFIED. O: PT WAS SEEN FOR 90MIN OF THERAPY BEGINNING W/DON OF ENZO HOSE MIN-A TO SIT TO EOB PT TRANSFER TO FROM BED MIN -A ELEVATED HOB TO DECREASE BURDNEN SINCE PT IS NONCOMPLIANT WITH STERNAL PRECAUTIONS.FAMILY PRESENT TO COMPLETE FAMILY FAMILY TRG/CAR TRANSFER,EDUCATE FAMILY ON PT PROGRESS PT DIFFICULTY WITH STRERNAL PRECAUTIONS DUE TO MEMORY DEFICITS GRANDDAUGHTER REPORTS MEMORY DEFICITS WAS AN ISSURE PRIOR TO HOSPITALIZATION.EDUCATE FAMILY ON PROGRESS WITH FUNCTIONAL ACTIVITIES ASSIST PT TO RESTROOM USING WC EXTRA TIME DUE TO BOWEL MOVEMENT MOD-MIN-A WITH TRANSFERS ASSIST WITH PANTS UP/DWN PT SET UP WITH TOILETING.GAIT TRAINING WITH FAMILY SON PARTICIPATE WITH GAIT TRAINING PT AMB 60' PRIOR TO FATIGUE MOD-A FOR SAFETY. MEET GD DWNSTAIRS TO COMPLETE CAR TRANSFERS VC FOR SAFETY MIN-A WITH STAND STEP TRANSFER SLOW MOVING EXTRA TIME.PT FATIGUED EXTRA TIME TO REST FAMILY REPORTS THEY FEEL COMFORTABLE WITH CAR TRANSFER TO TAKE PT TO SNF ON .EDUCATE PT AND FAMILY ON FALL PREVENTION,FALL RECOVERY.SAFETY W/ RW MGMT. A; PT MAKING LIMITED PROGRESS DUE TO COG/MEMORY DEFICITS CAN BE IMPULSIVE AT TIME,SITTER HAS BEEN PLACED IN ROOM DUE TO FALLS. Physical ExamGeneral appearance: alert, awakePsych: alert, normal affect, oriented x 3HEENT: anicteric, mucosal membranes moist, pupils reactive to light, sclera clearNeck: non-tender, supple, no JVDCardiovascular: irregular rhythm, S1/S2, cap refill wnl, pulses intactRespiratory: diminished breath sounds, on oxygen, aerating wellAbdomen: bowel sounds present, non-distended, soft, non-tenderSkin: dry, normal temperature, no rash, bruising R thigh, mild L thigh, BUE, R hand Sl tender/edema, sternum incision RSH site CDI, bruising L chest wall, mildly tender, R elbow abrasionMusculoskeletal - general: Musculoskeletal - general: OA changes, normal tone, no swelling, Moves all 4 exts AG, calves NT, no cords, Homans negNeuro/TEAROOM HOST/HOSTESS: alert, oriented X 3, CNII-XII intact, normal speech, no motor deficits, no sensory deficits ResultsFindings/Data:Laboratory Tests 08/26 0515 0515 Chemistry Sodium (134 - 147 mEq/L) 136 Potassium (3.4 - 5.0 mEq/L) 3.8 Chloride (100 - 108 mEq/L) 100 Carbon Dioxide (21 - 33 mEq/l) 29 Anion Gap (0 - 20) 10 BUN (7 - 18 mg/dL) 24 H Creatinine (0.6 - 1.3 mg/dL) 1.9 H Glomerular Filtr Rate (70 - 80) 35.2 L Glucose (70 - 110 mg/dL) 96 POC Glucose (70 - 110 MG/DL) 106 Calcium (8.0 - 10.5 mg/dL) 9.1 Ionized Calcium Suzanna (1.09 - 1.30 MMOL/L) 1.14 Cortisol AM Sample (ug/dL) 29.44 Laboratory Tests 08/24 1020 Urines Urine Color (YEL/STRAW) ALBERTO H Urine Appearance (CLEAR) CLEAR Urine pH (5.0 - 7.0) 5.0 Ur Specific [place] (1.005 - 1.030) 1.011 Urine Protein (NEGATIVE) NEGATIVE Urine Glucose (UA) (NEGATIVE) NEGATIVE Urine Ketones (NEGATIVE) NEGATIVE Urine Blood (NEGATIVE) NEGATIVE Urine Nitrite (NEGATIVE) COLOR INTERFERENCE Urine Bilirubin (NEGATIVE) NEGATIVE Urine Urobilinogen (0.2 - 1.0 mg/dL) COLOR INTERFERENCE Ur Leukocyte Esterase (NEGATIVE) NEGATIVE Urine RBC (0 - 3 RBC/HPF) 0-3 Urine WBC (0 - 3 WBC/HPF) 4-9 H Ur Squamous Epith Cells (NONE SEEN /HPF) 0-5 Urine Bacteria (NONE SEEN /HPF) TRACE Hyaline Casts (NONE SEEN /LPF) 6-10 Urine Mucus (NONE SEEN /LPF) TRACE Recent Impressions:RADIOLOGY - XR RIBS UNI 2 V LT 08/24 1455 Report Impression - Status: SIGNED Entered: 08/24/2022 1606 IMPRESSION: Healing fractures of the left lateral 7th and 8th ribs.Small left pleural effusion.Impression By: [email or web address] - Florentino Perez M.D. Diagnosis, Assessment PlanProblem List/A P: 1. CAD (coronary artery disease) 2. Afib 3. HTN (hypertension) 4. S/P CABG x 5 5. Impaired functional mobility, balance, gait, and endurance Free Text A P:Assessment:Multivessel CAD3: S/p CABG x5-Dr. Lind-fib s/p a LAAEndoscopic RGSV harvest08/16: Echo-EF 50-54%, small pericardial effusionSmall bilateral pleural effusions.Muscle weakness Unsteady gaitAlzheimer's dementia (as per family), poor memoryPostoperative anemiaAKI on CKDHTNImpairment in self-care, ADLs and functional mobility Plan:-Continue PT/OT-Case management for safe discharge planning.-Decubitus prevention-protective hydrating lotion-turn every 2 nchci-cccdibm-Urdmz program-MiraLAX, senna-Nutrition, monitor the patient's p.o. intake, check albumin 3.5 and prealbumin 14.3, dietary consult, protein supplements. Cardiac diet. BMI above normal parameters. Working with dietary, follow up with PCP-Strict fall and safety precaution-DVT cdnisudzkqu-SOGq-RX prophylaxis on Protonix-CAD on Plavix and aspirin, intolerant to statins-Pulmonary toilet frequent I-S, nebs, wean O2-Early mobilization-OOB to chair-Work on bed mobility, transfer training, ADLs, pre-gait and gait exercises as tolerable. -Increase endurance and strength-Pain management-Postop care as per CVS-Monitor telemetry-Cardiology on case-LADARIUS as per nephrology-He was following specialist managers in [place] so plan to refer to his specialist managers post discharge.-Dementia/confusion-Higher level of nursing care and monitoring for safety-Strict sternal precautions-patient with poor carryover of sternal precautions-Monitor sites of bruising and right hand pain-from previous phlebotomy sites-nosigns of infection-Labs reviewed-WBC normal, hemoglobin 9.1, 8.9, 9.7 platelets stable, creatinine1.9, 2.2, 1.9 magnesium normal, HgbA1C 5.2. -Anemia-vitamin B12 and ferrous yydflqm-VRA-GM stable-orthostasis/dizziness-diuretic s reduced-midodrine added as needed-use ENZO hose and abdominal binder when out of bed-monitor. Medications being monitored by cardiology-Removed sutures x2 from lower chest on 08/2541-Rwtqin-rj with PCP for dementia vpewbanslz-Xexgvtc-ZE negative-completed Pyridium-symptoms resolved-08/22: Fall: Seen by trauma team after fall. CT head negative. Right shoulder x-ray negative for fracture. Patient patient appears to be at his baseline-08/24: Fall-no head injury-left rib pain-left rib film-no acute fractures, healing fractures of the left lateral 7th and 8th ribs. Small left pleural effusion-Lidoderm xvffn-ymtkhla-KV called me this afternoon and said pt's R elbow hurting more. 2 view R elbow x ray-no acute fracture-Lidoderm patch-pain management-Advance therapies as tolerable -1:1 sitter due to multiple falls-Has significant issues with memory. Patient making slow progress with functional goals limited due to cognitive deficits. Poor carryover of sternal precautions. Requires verbal cues to maintain sternal precautions with transfers. PM RPlease see team note.Plan and goals discussed with the patient. I agree with the teams findingELOS: [08/29]DC-SNF placementDME-bedside commode, rolling walker Total time was 33 minutes > 50% with patient performing physical examination, discussing with patient about fall precaustions, 1:1 sitter, discharge plans, sternal precautions, plan of care, goals, therapies, progress, medications, labs. All questions answeredRehab attestation:Face to face exam completed. Treatment plan discussed with patient. Meets continued stay criteria. Agree with interdisciplinary treatment plan. Arthur Fuentes 08/27/221941:Attestations Physician AttestationAgree w/findings plan:Pt seen. Agree with the findings and plan as documented by ALVAREZ Bush at 1943 at 0659 RPT #:[id number] OF REPORTPRProgress [id number]:51:00G.[id number] for patient nvlhKCTRNRCFVNDYSJ0931-83-59X67:43:29 HCACL 2022-08-26 17:34:00 [id number] 9adGoCvXfdamWqZecls/fRvm4Tpg53MvEFYrD [id number]:34:00 [facility] ([facility])Cardiology Progress NoteREPORT#:[id number] REPORT STATUS: SignedDATE:08/26/22 TIME: 1734 PATIENT: BRENNAN AHN UNIT #: [id number]#: [id number] [address] AGE: 82 SEX: M ATTEND: Arthur Fuentes MDADM AUTHOR: Flaco Nair MD * ALL edits or amendments must be made on the electronic/computer document * SubjectiveChief complaint:None Objective GeneralVS/I O:24 hour I O ending at 0700: 08/26 0700 08/25 1900 Intake Total 715 Output Total 120 Balance 595 Intake, Oral 715 Output, Urine 120 Vital Signs: Date Time Temp Pulse Resp B/P B/P Pulse O2 O2 Flow FiO2 Mean Ox Delivery Rate 08/26 1554 92 96/63 73.9 96 08/26 1552 86 22 117/62 80.5 97 08/26 1549 97.7 77 22 115/66 82.7 98 08/26 1104 91 101/64 76.2 95 08/26 1102 98 96/61 72.4 98 08/26 1057 97.9 79 20 111/69 82.8 95 08/26 0719 91 110/68 81.8 95 08/26 0718 80 112/60 77.5 98 08/26 0716 97.9 74 18 122/71 87.6 97 08/26 0526 97.9 75 16 116/59 78.0 98 08/26 0330 98 Room air 08/26 0038 98.4 67 17 108/61 76.6 94 08/25 2057 98.1 77 17 119/67 84.4 97 08/26 1955 98 Room air PATIENT WEIGHT: Weight (lb): 221Weight (oz): 9.03Weight (kg): 100.500 Medications:Active Meds + DC'd Last 24 HrsPhenazopyridine HCl (PYRIDIUM) 200 MG TID PO Lidocaine (LIDODERM) 1 PATCH DAILY TOPICAL Midodrine (PROAMATINE) 2.5 MG BID 9A 5P PRN PO Lidocaine (LIDODERM) 1 PATCH DAILY TOPICAL Metoprolol Tartrate (LOPRESSOR) 12.5 MG Q12HR PO Duloxetine HCl (CYMBALTA) 60 MG BEDTIME PO Ezetimibe (ZETIA) 10 MG DAILY PO Amiodarone HCl (CORDARONE) 200 MG BID PO Aspirin (ASPIRIN) 81 MG DAILY PO Clopidogrel Bisulfate (Plavix) 75 MG DAILY PO Cyanocobalamin (Vitamin B-12 500 mcg tab) 500 MCG DAILY PO Ferrous Sulfate (FERROUS SULFATE) 325 MG DAILY PO Polyethylene Glycol (MIRALAX) 17 GM DAILY PO Pantoprazole (PROTONIX) 40 MG DAILY@0600 PO Budesonide (PULMICORT RESPULES) 0.5 MG RTBID INH Formoterol Fumarate (PERFOROMIST) 20 MCG RTBID NEB Docusate Sodium (COLACE) 100 MG BID PO Ipratropium [place] (ATROVENT) 500 MCG RTQ6H INH Sennosides (Senna Lax 8.6 MG TABLET) 17.2 MG BEDTIME PO Hydralazine HCl (APRESOLINE) 10 MG Q6H PRN PRN IV Acetaminophen (TYLENOL) 650 MG Q4H PRN PRN PO Ipratropium [place] (ATROVENT) 500 MCG RTQ2H PRN PRN INH Melatonin (Melatonin) 6 MG BEDTIME PRN PO Ondansetron HCl (ZOFRAN ODT) 4 MG TID PRN PRN SL Physical ExamGeneral appearance: alert, awake, orientedNeck: non-tender, no JVDCardiovascular: CV assessment: irregularly irregularRespiratory: decreased breath sounds, no distressAbdomen: soft, non-tender, normal bowel sounds, no distentionGenitourinary: no flank pain, no urinary catheterLower extremity: LE assessment: edema (trace edema RLE - harvest site), no edemaMusculoskeletal: normal inspectionNeuro/TEAROOM HOST/HOSTESS: alertSkin: dryPsychiatry: normal affect, normal mood ResultsResults: labs reviewed, vital signs reviewed, vital signs stable Diagnosis, Assessment PlanConsultants: cardiology, cardiovascular surgery, hospitalist, nephrology Free Text DxA P NotesFree Text DxA P Notes:82 YO male with MHX of Afib, HTN, HLD, CAD who is s/p 5 vessel CABG and PVI and ALAA. The patient is transferred to [facility] for inpatient rehabilitation. We are consulted for continuity of cardiac-related care. 1. CAD s/p CABG x 5 (NGUYEN-LAD, SVG-Olga Lidia, SVG-OM, SVG-LPLA, SVG-PDA) continue asa, BB, plavix, Zetiaecho 08/12- LVEF 50-54%, left pleural effusionintolerant of statin, will consider nonstatin med such as Repatha or Nexletol outpatientLE edema subsided , off PO lasix d/t orthostatic hypotension- has midodrone as needed for hypotension 2. A-fib: Paroxysmal - rate controlleds/p PVI and ARISTEO amputationamiodarone 200 mg BID - taper dose prior to dischargeContinue low-dose metoprolol to 12.5 mg BID no need for AC since left atrial appendage was removed during CABG 3. HTN BP stableMidodrine changed to 2.5 mg twice daily as neededContinue low-dose metoprolol to 12.5 mg BID 4. AKInephrology following 5. Dizziness 2/2 orthostatic hypotension -improvingNo report of orthostasis stasis todayChange midodrine to as needed since BP stablecompression stocking and abdominal binder before OOB Taken off Lasix, will re-assess need for diuretic on a daily basis 6. s/p Fall 08/22 and 08/24CT head no acute findingR Elbow XR - no fractureL rib XR -healing fractures of the left lateral seventh and eighth ribs continue supportive care 08/26/22:-CAD/ACB-PAF-ARISTEO LIGATION-STABLE CARDIAC DCWRMG-CEDRQCZKHL-NP/OT-DISCUSSED CARE WITH HIS NURSE at 1116 RPT #:[id number] OF REPORTPRProgress [id number]:34:00G.[id number] for patient shsgHQMBILOHJRTKBZ9687-93-87V39:16:51 [facility]ACL 2022-08-26 16:17:00 [id number] th9lGVgoCW4myg4rpt2P0w9GHoJUEfAlKxR4s uu6942-42-56D23:17:00 [facility] ([facility])Urology Progress NoteREPORT#:[id number] REPORT STATUS: SignedDATE:08/26/22 TIME: 1617 PATIENT: BRENNAN AHN UNIT #: [id number]#: [id number] [address] AGE: 82 SEX: M ATTEND: Arthur Fuentes MDADM AUTHOR: Aubrey Keith MD * ALL edits or amendments must be made on the electronic/computer document * SubjectiveChief complaint:CABGComments:Reports dysuria is improving. Emptying his bladder with low PVR. Objective GeneralVS/I O:Last Documented: Result Date Time Pulse Ox 96 08/26 1554 B/P 96/63 08/26 1554 B/P Mean 73.9 08/26 1554 Pulse 92 08/26 1554 Resp 22 08/26 1552 Temp 97.7 08/26 1549 O2 Delivery Room air 08/26 0330 FiO2 21 08/22 1948 24 hour I O ending at 0700: 08/26 0700 08/25 1900 Intake Total 715 Output Total 120 Balance 595 Intake, Oral 715 Output, Urine 120 PATIENT WEIGHT: Weight (lb): 221Weight (oz): 9.03Weight (kg): 100.500 Free text obj notes:Physical Examination: Constitutional: no acute distressEyes: normal external eye, conjunctiva and sclera normalEars, nose, mouth, throat: normocephalic, moist mucous membranesRespiratory: respirations unlabored on room airGastrointestinal: soft, non-distended, non-tender, no costovertebral angle tendernessMusculoskeletal: no clubbing, cyanosis or edemaSkin: no rashesNeurologic: no focal deficitsPsychiatric: appropriate mood and affectHematologic: no bruising Diagnosis, Assessment PlanFree Text A P:Brennan Ahn is a 82-year-old status post CABG 07/13/2022, 3-month history of dysuria, no other LUTS. Ua from 08/21/22 negative for nitrites. Dysuria is improving. UA wnl. He is emptying well. - Continue pyridium- Will arrange for patient to follow up with us as an outpatient as he may benefit from outpatient cystoscopy Aubrey Keith MD at 1620 RPT #:[id number] OF REPORTPRProgress [id number]:17:00G.[id number] for patient cfirXDCXOOZTLVMVMU6538-04-65B09:20:47 [facility] 2022-08-26 16:08:00 [id number] NwBxQlbXJammgh/wRec+DqyVKTJra1QrqpqLe Lc3335-35-54Q99:08:00 [facility])Nephrology Progress NoteREPORT#:[id number] REPORT STATUS: SignedDATE:08/26/22 TIME: 1608 PATIENT: BRENNAN AHN UNIT #: [id number]#: [id number] [address] AGE: 82 SEX: M ATTEND: Arthur Fuentes [facility] AUTHOR: Maura Terrazas MD * ALL edits or amendments must be made on the electronic/computer document * SubjectiveChief complaint:chest painHPI:82-year-old male known to have hypertension, atrial fibrillation, supraventricular tachycardia with requiring ablation presenting with multivesselcardiovascular disease and he underwent CABG 07/13/2022. He endorsed having kidney issues in the past and seeing a specialist managers at [place] but his kidney function had been stable since then.He developed oliguria,LADARIUS and hypervolemia post CABG but had now improved and was transferred to rehab. 08/26Patient appearing comfortable,denying all systemic review including dizziness. He was tolerating orally. Objective GeneralVS/I O:Vital Signs: Date Time Temp Pulse Resp B/P B/P Pulse O2 O2 Flow FiO2 Mean Ox Delivery Rate 08/27 1520 36.5 77 18 163/71 102.0 97 Room air 08/27 1047 112 17 96/61 72.4 08/27 1035 85 113/64 80.2 08/27 0735 91 97/53 67.8 08/27 0732 80 18 96/57 70.1 98 Room air 08/27 07 36.4 75 18 126/70 88.6 93 Room air 08/27 0501 36.5 76 16 147/79 101.8 96 08/27 0052 36.5 74 16 139/71 93.7 94 08/26 2028 36.4 92 18 128/72 90.8 94 08/26 1948 96 Room air 24 hour I O ending at 0700: 08/27 0700 08/26 1900 Intake Total 715 Output Total 174 Balance 541 Intake, Oral 715 Output, Urine 174 PATIENT WEIGHT: Weight (lb): 221Weight (oz): 9.03Weight (kg): 100.500 Physical ExamGeneral appearance: alert, awake, orientedHead/eyes: atraumatic, clear cornea, EOMIENT: moist mucous membranes, normal noseNeck: no JVD, no masses or swellingCardiovascular: normal heart sounds, regular rate and rhythmRespiratory: aerating well, clear to auscultationAbdomen: non-tender, softGenitourinary: no bladder distention, no flank painExtremities: pitting edema, no gangrene, no swelling Diagnosis, Assessment PlanFree Text A P:82-year-old male known to have hypertension, atrial fibrillation, supraventricular tachycardia with requiring ablation presenting with multivesselcardiovascular disease and he underwent CABG 07/13/2022. Transferred to rehab for therapy. Nephrology following for: 1. Acute kidney injury: Most likely prerenal as he recently had surgery. Renal function Improved.Plan to monitor. 2. Hypervolemia:Patient at high risk of volume overload so would reccommend lasix PO, lasix held due to hypotension .Volume improved. 3. Electrolytes: His electrolytes appear to be in normal range plan is to monitor and replace as needed. 4. HTN:Controlled with current medications.Plan to continue same.He develops orthostasis so medication doses minimised. 08/21 1. Acute kidney injury: Most likely prerenal as he recently had surgery. Resolving with better hemodynamics.His kidney function was stable plan was to monitor closely. 2. Hypervolemia:Patient at high risk of volume overload so would reccommend lasix PO .He recently developed orthostasis so dose reduced to 40 PO daily. Plan to increase lasix to Q12H and add midodrine for hypotension,patient is not dizzy anymore and he was tolerating Lasix at current dose. Plan was to monitor input and output closely. 3. Electrolytes: His electrolytes appear to be in normal range plan is to monitor and replace as needed. 4. HTN:Currently he develops orthostatic hypotension so not on any medications besides lasix and metoprolol. He was requiring midodrine to keep his blood pressures above 100 systolic. 08/22 1. Acute kidney injury: Most likely prerenal as he recently had surgery. Renal function Improved.Plan to monitor. 2. Hypervolemia:Patient at high risk of volume overload so would reccommend lasix PO, lasix held due to hypotension .Volume improved. 3. Electrolytes: His electrolytes appear to be in normal range plan is to monitor and replace as needed. 4. Hypotension: Midodrine dose increased .Plan to monitor. 08/23 1. LADARIUS on CKD: Patient with stable renal function. Plan to keepMAP>65 and avoidnephrotoxic agents. He was following specialist managers in [place] so plan to refer to his specialist managers post discharge. 2. Hypervolemia:Patient at high risk of volume overload so would reccommend lasix PO, lasix held due to hypotension .Volume improving slowly. 3. Electrolytes: His electrolytes appear to be in normal range plan is to monitor and replace as needed. 4. Hypotension: Midodrine dose increased .Plan to monitor. 08/24 1. LADARIUS on CKD: Patient with stable renal function. Plan to keepMAP>65 and avoidnephrotoxic agents. He was following specialist managers in [place] so plan to refer to his specialist managers post discharge. 2. Hypervolemia:Patient at high risk of volume overload so would reccommend lasix PO, lasix held due to hypotension .Volume stable. 3. Electrolytes: His electrolytes appear to be in normal range plan is to monitor and replace as needed. 4. Hypotension: Midodrine dose increased .Plan to monitor and increase midodrine if SBP<110. 3/251. LADARIUS on CKD: Patient with stable renal function. Plan to keepMAP>65 and avoidnephrotoxic agents. He was following specialist managers in [place] so plan to refer to his specialist managers post discharge. 2. Hypervolemia:Patient at high risk of volume overload so would reccommend lasix PO, lasix held due to hypotension .Volume stable. 3. Electrolytes: His electrolytes appear to be in normal range plan is to monitor and replace as needed. 4. Hypotension: Midodrine dose increased .Plan to monitor and increase midodrine if SBP<110. Consultants: cardiology, cardiovascular surgery, hospitalist, nephrology at 1630 RPT #:[id number] OF REPORTPRProgress [id number]:08:[id number] for patient [id number]:30:35 [facility] 2022-08-26 05:47:00 [id number] [id number]:47:00 [facility] ([facility]Re[facility] Progress NoteREPORT#:[id number] REPORT STATUS: SignedDATE:08/26/22 TIME: 05 PATIENT: BRENNAN AHN UNIT #: [id number]#: [id number] [address] [birth year] AGE: 82 SEX: M ATTEND: Lee Fuentesrey Hanny [facility] AUTHOR: Florentino Jimenez * ALL edits or amendments must be made on the electronic/computer document * SubjectiveChief complaint:Rehab follow-upRequires sitter due to fallsNADEating well+ BMDenies MORA/N/V/D/CP14 systems reviewed and neg. except that above.History of present illness:82-year-old male with PMH of Alzheimer's dementia, CKD, HTN, atrial fibrillation, history of SVT/ablation who was transferred to [facility] ED after being foundto have multivessel coronary artery disease. Patient initially with was at homeand developed chest pains. [facility] which revealed multivessel CAD. Patient evaluated here by cardiothoracic surgery and underwent CABG x5 on 08/10. Patient with postoperative anemia and significant impairment in mobility. Pt is progressing slowly with therapy d/t weakness, self care deficit, decreased endurance and balance, and decreased functional mobility. Pt requiring acute inpt rehab for multidisciplinary team of nursing, therapy, and physicians. Pt is willing and able to participate in 3 hr/day inpt rehab to d/c home safely. Daughter states pt's prior level of function was independent. Currently patient has generalizedweakness. He lives by himself in a one-step up house. He denies any shortness of breath, nausea, vomiting, fever, chills. Denies chest pain. He is complaining of some constipation. He tells me that is in the process of sellinghis home. Preadmission screen was completed. Patient admitted to IRF. Objective GeneralVS:Vital Signs: Date Time Temp Pulse Resp B/P B/P Pulse O2 O2 Flow FiO2 Mean Ox Delivery Rate 08/26 0526 97.9 75 16 116/59 78.0 98 08/26 0330 98 Room air 08/26 0038 98.4 67 17 108/61 76.6 94 08/258 98.1 77 17 119/67 84.4 97 08/25 195 98 Room air 08/25 1720 86 96 08/25 1713 69 107/63 78.0 08/25 1527 100 91/55 66.8 88 08/25 1525 80 124/67 85.8 95 08/25 1524 97.5 77 20 115/70 85.1 98 08/25 1101 89 20 101/59 73.0 93 08/25 1059 82 20 112/74 86.8 90 08/25 1055 97.5 78 20 166/91 116.1 99 08/25 0743 112 97/50 65.7 08/25 0733 74 136/68 90.9 98 08/25 0728 97.7 67 18 122/73 89.5 95 08/25 0714 83 124/64 83.9 97 PATIENT WEIGHT: Weight (lb): 221Weight (oz): 9.03Weight (kg): 100.500 Medications:Active Meds + DC'd Last 24 HrsLidocaine (LIDODERM) 1 PATCH DAILY TOPICAL Midodrine (PROAMATINE) 2.5 MG BID 9A 5P PRN PO Lidocaine (LIDODERM) 1 PATCH DAILY TOPICAL Metoprolol Tartrate (LOPRESSOR) 12.5 MG Q12HR PO Duloxetine HCl (CYMBALTA) 60 MG BEDTIME PO Ezetimibe (ZETIA) 10 MG DAILY PO Amiodarone HCl (CORDARONE) 200 MG BID PO Aspirin (ASPIRIN) 81 MG DAILY PO Clopidogrel Bisulfate (Plavix) 75 MG DAILY PO Cyanocobalamin (Vitamin B-12 500 mcg tab) 500 MCG DAILY PO Ferrous Sulfate (FERROUS SULFATE) 325 MG DAILY PO Polyethylene Glycol (MIRALAX) 17 GM DAILY PO Pantoprazole (PROTONIX) 40 MG DAILY@0600 PO Budesonide (PULMICORT RESPULES) 0.5 MG RTBID INH Formoterol Fumarate (PERFOROMIST) 20 MCG RTBID NEB Docusate Sodium (COLACE) 100 MG BID PO Ipratropium [place] (ATROVENT) 500 MCG RTQ6H INH Sennosides (Senna Lax 8.6 MG TABLET) 17.2 MG BEDTIME PO Hydralazine HCl (APRESOLINE) 10 MG Q6H PRN PRN IV Acetaminophen (TYLENOL) 650 MG Q4H PRN PRN PO Ipratropium [place] (ATROVENT) 500 MCG RTQ2H PRN PRN INH Melatonin (Melatonin) 6 MG BEDTIME PRN PO Ondansetron HCl (ZOFRAN ODT) 4 MG TID PRN PRN SL Functional ProgressFunctional progress:PT WAS SEEN FOR 90MIN OF THERAPY BEGINNING W/DON OF ENZO HOSE MIN-A TO SIT TO EOB PT TRANSFER TO WC FROM BED MIN -A ELEVATED HOB TO DECREASE BURDNEN SINCE PT IS NONCOMPLIANT WITH STERNAL PRECAUTIONS.FAMILY PRESENT TO COMPLETE FAMILY FAMILY TRG/CAR TRANSFER,EDUCATE FAMILY ON PT PROGRESS PT DIFFICULTY WITH STRERNAL PRECAUTIONS DUE TO MEMORY DEFICITS GRANDDAUGHTER REPORTS MEMORY DEFICITS WAS AN ISSURE PRIOR TO HOSPITALIZATION.EDUCATE FAMILY ON PROGRESS WITH FUNCTIONAL ACTIVITIES ASSIST PT TO RESTROOM USING WC EXTRA TIME DUE TO BOWEL MOVEMENT MOD-MIN-A WITH TRANSFERS ASSIST WITH PANTS UP/DWN PT SET UP WITH TOILETING.GAIT TRAINING WITH FAMILY SON PARTICIPATE WITH GAIT TRAINING PT AMB 60' PRIOR TO FATIGUE MOD-A FOR SAFETY. MEET GD DWNSTAIRS TO COMPLETE CAR TRANSFERS VC FOR SAFETY MIN-A WITH STAND STEP TRANSFER SLOW MOVING EXTRA TIME.PT FATIGUED EXTRA TIME TO REST FAMILY REPORTS THEY FEEL COMFORTABLE WITH CAR TRANSFER TO TAKE PT TO SNF ON .EDUCATE PT AND FAMILY ON FALL PREVENTION,FALL RECOVERY.SAFETY W/ RW MGMT. A; PT MAKING LIMITED PROGRESS DUE TO COG/MEMORY DEFICITS CAN BE IMPULSIVE AT TIME,SITTER HAS BEEN PLACED IN ROOM DUE TO FALLS. Physical ExamGeneral appearance: alert, awakePsych: alert, normal affect, oriented x 3HEENT: anicteric, mucosal membranes moist, pupils reactive to light, sclera clearNeck: non-tender, supple, no JVDCardiovascular: irregular rhythm, S1/S2, cap refill wnl, pulses intactRespiratory: diminished breath sounds, on oxygen, aerating wellAbdomen: bowel sounds present, non-distended, soft, non-tenderSkin: dry, normal temperature, no rash, bruising R thigh, mild L thigh, BUE, R hand Sl tender/edema, sternum incision RSH site CDI, bruising L chest wall, mildly tender, R elbow abrasionMusculoskeletal - general: Musculoskeletal - general: OA changes, normal tone, no swelling, Moves all 4 exts AG, calves NT, no cords, Homans negNeuro/TEAROOM HOST/HOSTESS: alert, oriented X 3, CNII-XII intact, normal speech, no motor deficits, no sensory deficits ResultsFindings/Data:Laboratory Tests 08/25 08/25 08/23 0515 0515 0700 Chemistry Sodium (134 - 147 mEq/L) 136 138 Potassium (3.4 - 5.0 mEq/L) 3.8 4.2 Chloride (100 - 108 mEq/L) 100 100 Carbon Dioxide (21 - 33 mEq/l) 29 30 Anion Gap (0 - 20) 10 12 BUN (7 - 18 mg/dL) 24 H 30 H Creatinine (0.6 - 1.3 mg/dL) 1.9 H 2.2 H Glomerular Filtr Rate (70 - 80) 35.2 L 29.5 L Glucose (70 - 110 mg/dL) 96 93 Calcium (8.0 - 10.5 mg/dL) 9.1 9.4 Ionized Calcium Suzanna (1.09 - 1.30 MMOL/L) 1.14 Magnesium (1.80 - 2.40 mg/dL) 1.89 Cortisol AM Sample (ug/dL) 29.44 Laboratory Tests 08/23 0700 Hematology WBC (4.5 - 11.0 x10 3/uL) 10.4 RBC (4.00 - 5.60 x10 6/uL) 3.20 L Hgb (12.5 - 16.9 g/dL) 9.7 L Hct (37.5 - 50.7 %) 30.4 L MCV (81.0 - 99.0 fL) 95.0 MCH (27.0 - 33.0 pg) 30.3 MCHC (33.0 - 37.0 g/dL) 31.9 L RDW (11.5 - 14.5 %) 14.6 H Plt Count (150 - 400 x10 3/uL) 489 H MPV (7.0 - 9.0 fL) 9.3 H Neut % (Auto) (56.0 - 77.0 %) 77.1 H Lymph % (Auto) (14.0 - 32.0 %) 8.0 L [place] % (Auto) (4.8 - 9.0 %) 6.8 Eos % (Auto) (0.3 - 3.7 %) 6.5 H Baso % (Auto) (0.0 - 2.0 %) 0.8 Neut # (Auto) (2.0 - 7.6 x10 3/uL) 8.00 H Lymph # (Auto) (1.0 - 3.8 x10 3/uL) 0.83 L [place] # (Auto) (0.1 - 0.8 x10 3/uL) 0.71 Eos # (Auto) (0.0 - 0.2 x10 3/uL) 0.67 H Baso # (Auto) (0.0 - 0.2 x10 3/uL) 0.08 Abs Immat Gran (auto) (0.00 - 0.03 x10 3/uL) 0.08 H Add Manual Diff NO Immature Gran % (0.0 - 2.0 %) 0.8 Nucleated RBC % (0 - 0 %) 0.0 Nucleated RBCs # (Man) (0.0 - 0.1 x10 3/uL) 0.00 Laboratory Tests 08/24 1020 Urines Urine Color (YEL/STRAW) ALBERTO H Urine Appearance (CLEAR) CLEAR Urine pH (5.0 - 7.0) 5.0 Ur Specific [place] (1.005 - 1.030) 1.011 Urine Protein (NEGATIVE) NEGATIVE Urine Glucose (UA) (NEGATIVE) NEGATIVE Urine Ketones (NEGATIVE) NEGATIVE Urine Blood (NEGATIVE) NEGATIVE Urine Nitrite (NEGATIVE) COLOR INTERFERENCE Urine Bilirubin (NEGATIVE) NEGATIVE Urine Urobilinogen (0.2 - 1.0 mg/dL) COLOR INTERFERENCE Ur Leukocyte Esterase (NEGATIVE) NEGATIVE Urine RBC (0 - 3 RBC/HPF) 0-3 Urine WBC (0 - 3 WBC/HPF) 4-9 H Ur Squamous Epith Cells (NONE SEEN /HPF) 0-5 Urine Bacteria (NONE SEEN /HPF) TRACE Hyaline Casts (NONE SEEN /LPF) 6-10 Urine Mucus (NONE SEEN /LPF) TRACE Recent Impressions:RADIOLOGY - XR ELBOW 2 VIEWS RT 08/23 1840 Report Impression - Status: SIGNED Entered: 08/23/2022 1923 IMPRESSION: No fracture or dislocation. Impression By: [email or web address] Akash Pope M.D.RADIOLOGY - XR RIBS UNI 2 V LT 08/24 1455 Report Impression - Status: SIGNED Entered: 08/24/2022 1606 IMPRESSION: Healing fractures of the left lateral 7th and 8th ribs.Small left pleural effusion.Impression By: [email or web address] - Florentino Perez M.D. Diagnosis, Assessment PlanProblem List/A P: 1. CAD (coronary artery disease) 2. Afib 3. HTN (hypertension) 4. S/P CABG x 5 5. Impaired functional mobility, balance, gait, and endurance Free Text A P:Assessment:Multivessel CAD3: S/p CABG x5-Dr. Lind-fib s/p a LAAEndoscopic RGSV harvest08/16: Echo-EF 50-54%, small pericardial effusionSmall bilateral pleural effusions.Muscle weakness Unsteady gaitAlzheimer's dementia (as per family), poor memoryPostoperative anemiaAKI on CKDHTNImpairment in self-care, ADLs and functional mobility Plan:-Continue PT/OT-Case management for safe discharge planning.-Decubitus prevention-protective hydrating lotion-turn every 2 xguhi-xfeljuj-Gzcoe program-MiraLAX, senna-Nutrition, monitor the patient's p.o. intake, check albumin 3.5 and prealbumin 14.3, dietary consult, protein supplements. Cardiac diet. BMI above normal parameters. Working with dietary, follow up with PCP-Strict fall and safety precaution-DVT jliwyxpehte-UHWz-ZA prophylaxis on Protonix-CAD on Plavix and aspirin, intolerant to statins-Pulmonary toilet frequent I-S, nebs, wean O2-Early mobilization-OOB to chair-Work on bed mobility, transfer training, ADLs, pre-gait and gait exercises as tolerable. -Increase endurance and strength-Pain management-Postop care as per CVS-Monitor telemetry-Cardiology on case-LADARIUS as per nephrology-He was following specialist managers in [place] so plan to refer to his specialist managers post discharge.-Dementia/confusion-Higher level of nursing care and monitoring for safety-Strict sternal precautions-patient with poor carryover of sternal precautions-Monitor sites of bruising and right hand pain-from previous phlebotomy sites-nosigns of infection-Labs reviewed-WBC normal, hemoglobin 9.1, 8.9, 9.7 platelets stable, creatinine1.9, 2.2, 1.9 magnesium normal, HgbA1C 5.2. -Anemia-vitamin B12 and ferrous tbusrlv-YNG-FH stable-orthostasis/dizziness-diuretic s reduced-midodrine added as needed-use ENZO hose and abdominal binder when out of bed-monitor. Medications being monitored by cardiology-Removed sutures x2 from lower chest on 08/2584-Lovsol-tw with PCP for dementia wivsmexmzz-Hxpbghb-FM negative-completed Pyridium-symptoms resolved-08/22: Fall: Seen by trauma team after fall. CT head negative. Right shoulder x-ray negative for fracture. Patient patient appears to be at his baseline-08/24: Fall-no head injury-left rib pain-left rib film-no acute fractures, healing fractures of the left lateral 7th and 8th ribs. Small left pleural effusion-Lidoderm tfhqk-gngmnlz-BU called me this afternoon and said pt's R elbow hurting more. 2 view R elbow x ray-no acute fracture-Lidoderm patch-pain management-Advance therapies as tolerable -1:1 sitter due to multiple falls-Patient able to ambulate 50 to 55 feet with rolling walker and has significant issues with memory. Patient making slow progress with functional goals limited due to cognitive deficits. Poor carryover of sternal precautions. Requires verbal cues to maintain sternal precautions with transfers. PM RPlease see team note.Plan and goals discussed with the patient. I agree with the teams findingELOS: [08/29]DC-SNF placementDME-bedside commode, rolling walker Total time was 34 minutes > 50% with patient performing physical examination, discussing with patient about fall precaustions, 1:1 sitter, discharge plans, sternal precautions, plan of care, goals, therapies, progress, medications, labs. All questions answeredRehab attestation:Face to face exam completed. Treatment plan discussed with patient. Meets continued stay criteria. Agree with interdisciplinary treatment plan. at 1910 RPT #:[id number] OF REPORTPRProgress [id number]:47:00G.[id number] for patient [id number]:10:25 [facility] 2022-08-25 15:02:00 [id number] [id number]:02:00 [facility] HospitalInternal [facility] Prog. NoteREPORT#:[id number] REPORT STATUS: SignedDATE:08/25/22 TIME: 1502 PATIENT: BRENNAN AHN UNIT #: [id number]#: [id number] [place] [facility]DOB: [birth year] AGE: 82 SEX: M ATTEND: Arthur Fuentes [facility] AUTHOR: Devin Fox DO * ALL edits or amendments must be made on the electronic/computer document * SubjectiveChief complaint:pt c/o of some cough and pain in SS chest as a result Review of SystemsAll systems rev neg: except as marked Objective GeneralVS/I O:Vital SignsDate Temp Pulse Resp B/P B/P Mean Pulse Ox LgV835/23-08/25 97.3-98.6 67-112 17-20 92-166/50-91 64.9-116.1 90-99 Last Documented: Result Date Time Pulse Ox 93 08/25 1101 B/P 101/59 08/25 1101 B/P Mean 73.0 08/25 1101 Pulse 89 08/25 1101 Resp 20 08/25 1101 Temp 97.5 08/25 1055 O2 Delivery Room air 08/25 0447 FiO2 21 08/22 1948 24 hour I O ending at 0700: 08/25 0700 08/24 1900 Intake Total Output Total 225 Balance -225 Number 0 Incontinent Voids Number Voids 1 Output, Urine 225 PATIENT WEIGHT: Weight (lb): 221Weight (oz): 9.03Weight (kg): 100.500 Medications:Active Meds + DC'd Last 24 HrsLidocaine (LIDODERM) 1 PATCH DAILY TOPICAL Midodrine (PROAMATINE) 2.5 MG BID 9A 5P PRN PO Lidocaine (LIDODERM) 1 PATCH DAILY TOPICAL Metoprolol Tartrate (LOPRESSOR) 12.5 MG Q12HR PO Midodrine (PROAMATINE) 5 MG TID AC PO (DC) Duloxetine HCl (CYMBALTA) 60 MG BEDTIME PO Ezetimibe (ZETIA) 10 MG DAILY PO Amiodarone HCl (CORDARONE) 200 MG BID PO Aspirin (ASPIRIN) 81 MG DAILY PO Clopidogrel Bisulfate (Plavix) 75 MG DAILY PO Cyanocobalamin (Vitamin B-12 500 mcg tab) 500 MCG DAILY PO Ferrous Sulfate (FERROUS SULFATE) 325 MG DAILY PO Polyethylene Glycol (MIRALAX) 17 GM DAILY PO Pantoprazole (PROTONIX) 40 MG DAILY@0600 PO Budesonide (PULMICORT RESPULES) 0.5 MG RTBID INH Formoterol Fumarate (PERFOROMIST) 20 MCG RTBID NEB Docusate Sodium (COLACE) 100 MG BID PO Ipratropium [place] (ATROVENT) 500 MCG RTQ6H INH Sennosides (Senna Lax 8.6 MG TABLET) 17.2 MG BEDTIME PO Hydralazine HCl (APRESOLINE) 10 MG Q6H PRN PRN IV Acetaminophen (TYLENOL) 650 MG Q4H PRN PRN PO Ipratropium [place] (ATROVENT) 500 MCG RTQ2H PRN PRN INH Melatonin (Melatonin) 6 MG BEDTIME PRN PO Ondansetron HCl (ZOFRAN ODT) 4 MG TID PRN PRN SL Physical ExamGeneral appearance: alert, awake, orientedHead/Eyes: EOMI, PERRLANeck: non-tender, no JVDCardiovascular: normal heart sounds, regular rate rhythmRespiratory: aerating well, clear to auscultationAbdomen: non-tender, normal bowel soundsExtremities: Extremities: no cyanosis, no edemaNeuro/TEAROOM HOST/HOSTESS: alert, oriented x 3, CNII-XII intactSkin: ecchymosis (l chest) ResultsFindings/Data:Laboratory Tests 08/25/22 0515:[Embedded Image Not Available]Laboratory Tests 08/25 08/25 0515 0515 Chemistry Sodium (134 - 147 mEq/L) 136 Potassium (3.4 - 5.0 mEq/L) 3.8 Chloride (100 - 108 mEq/L) 100 Carbon Dioxide (21 - 33 mEq/l) 29 Anion Gap (0 - 20) 10 BUN (7 - 18 mg/dL) 24 H Creatinine (0.6 - 1.3 mg/dL) 1.9 H Glomerular Filtr Rate (70 - 80) 35.2 L Glucose (70 - 110 mg/dL) 96 Calcium (8.0 - 10.5 mg/dL) 9.1 Ionized Calcium [place] (1.09 - 1.30 MMOL/L) 1.14 Cortisol AM Sample (ug/dL) 29.44 Diagnosis, Assessment PlanHospital course to date:82-year-old male with past medical history of hypertension, atrial fibrillation,supraventricular tachycardia status post ablation who was admitted with reports of multivessel coronary artery disease found on a cardiac catheterization done at [facility]. Patient was transferred to [facility] for CABG. He underwent IHTCr3i. 1. Coronary artery disease-Status post CABG x5, ALAA, PVI-Continue metoprolol, Plavix, aspirin 2. Atrial fibrillation-Continue po amiodarone for rate control- taper AMIO per cards-Continue metoprolol-Monitor and review telemetry 3. Debility/-.-PT/OT- PMR- Inpt Rehab 4. ARF- Trend cr 1.3-1.9-2.2-2.0-1.9-2.2- post op, post lasix therefore likely pre-renal- baseline CKD is suspected- nephro consulted 5. anemia- acute, post op expecteed- monitor and transfuse if hg <7- cont po Iron- Trend Hg 9.1 6. Delirium/ dementia-Likely due to sundowning-Monitor closely-Patient is neurologically intact 7. FALLs- 08/22, 08/24- ct head neg- R shoulder Xr neg- R elbow pain- mild- pain meds prn- sitter at bedside 8. Dysuria- UA neg- on pyridium prn- consider Urologist consult 9. Orthostatic hypotension- cont Midodrine and adjust up - check orthostatic VS- mild orthostasis 10. RIB fx- 08/24 Left RIb xr -HEALING L 7th and 8th rib fractures- unknown chronicity if ribs fractures show healing, d/w RN and Pt in detailstotal time spent 35mins d/w Consultants: cardiology, cardiovascular surgery, hospitalist, nephrology Quality: Gen Med Crit Care Current MedicationsCurrent medication review:I attest that the foregoing medication list in the medical record is true, accurate, and complete to the best of my knowledge. Advanced Care Plan 65 or OlderDiscussed with: patientDiscussion included: code status at 0917 [facility] #:[id number] OF REPORTPRProgress [id number]:02:00G.[id number] for patient pbsbKPICKSKPDLENEO7811-69-07L07:18:03 [facility] 2022-08-25 08:55:00 [id number] [id number] [id number]:55:00 [facility] ([facility])Cardiology Progress NoteREPORT#:[id number] REPORT STATUS: SignedDATE:08/25/22 TIME: 854 PATIENT: BRENNAN AHN UNIT #: [id number]#: [id number] [address] [birth year] AGE: 82 SEX: M ATTEND: Arthur Fuentes [facility] AUTHOR: Guera Marion NP * ALL edits or amendments must be made on the electronic/computer document * SubjectiveChief complaint:None Objective GeneralVS/I O:Laboratory Tests 08/25/22 0515:[Embedded Image Not Available]Current Medications Sig/Ariana Start time Last Medication Dose Route Stop Time Status Admin Lidocaine 1 PATCH DAILY 08/24 1300 AC 08/25 TOPICAL 09/23 1259 0807 Midodrine 2.5 MG BID 9A 5P PRN 08/24 1115 AC 08/25 PO 09/23 1114 0805 Lidocaine 1 PATCH DAILY 08/24 0900 AC 08/25 TOPICAL 09/23 0859 0807 Metoprolol Tartrate 12.5 MG Q12HR 08/22 2100 AC 08/25 PO 09/21 2058 0806 Midodrine 5 MG TID AC 08/22 1130 DC 08/24 PO 09/21 1129 1700 Duloxetine HCl 60 MG BEDTIME 08/18 2100 AC 08/24 PO 09/17 2058 210 Ezetimibe 10 MG DAILY 08/18 0900 AC 08/25 PO 09/17 0859 0805 Amiodarone HCl 200 MG BID 08/17 2100 AC 08/25 PO 09/16 2058 0805 Aspirin 81 MG DAILY 08/17 899 AC 08/25 PO 09/16 0859 0805 Clopidogrel Bisulfate 75 MG DAILY 08/17 899 AC 08/25 PO 09/16 0859 0804 Cyanocobalamin 500 MCG DAILY 08/17 899 AC 08/25 PO 09/16 0859 0805 Ferrous Sulfate 325 MG DAILY 08/17 899 AC 08/25 PO 09/16 0859 0805 Polyethylene Glycol 17 GM DAILY 08/17 899 AC 08/25 PO 09/16 0859 0804 Pantoprazole 40 MG DAILY@0600 08/17 06 AC 08/25 PO 09/16 0559 0603 Budesonide 0.5 MG RTBID 08/16 2199 AC 08/23 INH 09/15 2158 0730 Formoterol Fumarate 20 MCG RTBID 08/16 2199 AC 08/23 NEB 09/15 2158 0730 Docusate Sodium 100 MG BID 08/16 2099 AC 08/25 PO 09/15 205 0805 Ipratropium [place] 500 MCG RTQ6H 08/16 2100 AC 08/24 INH 09/15 205 1602 Sennosides 17.2 MG BEDTIME 08/16 2100 AC 08/24 PO 09/15 205 2104 Hydralazine HCl 10 MG Q6H PRN PRN 08/16 1315 AC IV 09/15 1314 Acetaminophen 650 MG Q4H PRN PRN 08/16 1300 AC 08/20 PO 09/15 1259 0918 Ipratropium [place] 500 MCG RTQ2H PRN PRN 08/16 1300 AC INH 09/15 1259 Melatonin 6 MG BEDTIME PRN 08/16 1300 AC 08/24 PO 09/15 1259 2105 Ondansetron HCl 4 MG TID PRN PRN 08/16 1300 AC SL 09/15 1259 24 hour I O ending at 0700: 08/25 0700 08/24 1900 Intake Total Output Total 225 Balance -225 Number 0 Incontinent Voids Number Voids 1 Output, Urine 225 Vital Signs: Date Time Temp Pulse Resp B/P B/P Pulse O2 O2 Flow FiO2 Mean Ox Delivery Rate 08/25 1101 89 20 101/59 73.0 93 08/25 1059 82 20 112/74 86.8 90 08/25 1055 36.4 78 20 166/91 116.1 99 08/25 0743 112 97/50 65.7 08/25 0733 74 136/68 90.9 98 08/25 0728 36.5 67 18 122/73 89.5 95 08/25 0714 83 124/64 83.9 97 08/25 0447 36.3 73 18 120/76 90.6 96 Room air 08/25 0018 36.4 67 18 126/74 91.3 93 08/24 2204 36.6 97 18 92/52 64.9 93 Room air 08/24 2156 37.0 82 17 123/70 87.4 94 Room air 08/24 2153 36.9 78 18 145/70 94.9 95 Room air 08/24 2040 93 Room air 08/24 1920 36.4 84 19 155/77 102.9 99 Room air 08/24 1534 77 19 145/76 99.0 PATIENT WEIGHT: Weight (lb): 221Weight (oz): 9.03Weight (kg): 100.500 Physical ExamGeneral appearance: alert, awake, oriented, no acute distress, pleasantNeck: non-tender, no JVDCardiovascular: CV assessment: irregularly irregularRespiratory: decreased breath sounds, no distressAbdomen: soft, non-tender, normal bowel sounds, no distentionGenitourinary: no flank pain, no urinary catheterLower extremity: LE assessment: edema (trace edema RLE - harvest site), no edemaMusculoskeletal: normal inspectionNeuro/TEAROOM HOST/HOSTESS: alertSkin: dryPsychiatry: normal affect, normal mood ResultsRadiology data:Recent Impressions:RADIOLOGY - XR RIBS UNI 2 V LT 08/24 1455 Report Impression - Status: SIGNED Entered: 08/24/2022 1606 IMPRESSION: Healing fractures of the left lateral 7th and 8th ribs.Small left pleural effusion.Impression By: NayelyJG43 - Florentino Perez M.D. Diagnosis, Assessment PlanConsultants: cardiology, cardiovascular surgery, hospitalist, nephrology Free Text DxA P NotesFree Text DxA P Notes:82 YO male with MHX of Afib, HTN, HLD, CAD who is s/p 5 vessel CABG and PVI and ALAA. The patient is transferred to [facility] for inpatient rehabilitation. We are consulted for continuity of cardiac-related care. 1. CAD s/p CABG x 5 (NGUYEN-LAD, SVG-Olga Lidia, SVG-OM, SVG-LPLA, SVG-PDA) continue asa, BB, plavix, Zetiaecho 08/12- LVEF 50-54%, left pleural effusionintolerant of statin, will consider nonstatin med such as Repatha or Nexletol outpatientLE edema subsided , off PO lasix d/t orthostatic hypotension- has midodrone as needed for hypotension 2. A-fib: Paroxysmal - rate controlleds/p PVI and RAISTEO amputationamiodarone 200 mg BID - taper dose prior to dischargeContinue low-dose metoprolol to 12.5 mg BID no need for AC since left atrial appendage was removed during CABG 3. HTN BP stableMidodrine changed to 2.5 mg twice daily as neededContinue low-dose metoprolol to 12.5 mg BID 4. AKInephrology following 5. Dizziness 2/2 orthostatic hypotension -improvingNo report of orthostasis stasis todayChange midodrine to as needed since BP stablecompression stocking and abdominal binder before OOB Taken off Lasix, will re-assess need for diuretic on a daily basis 6. s/p Fall 08/22 and 08/24CT head no acute findingR Elbow XR - no fractureL rib XR -healing fractures of the left lateral seventh and eighth ribs continue supportive care at 1214 at 1402 RPT #:[id number] OF REPORTPRProgress [id number]:55:[id number] for patient [id number]:14:51 [facility] 2022-08-25 05:53:00 [id number]/2aJlsqov x3PzPbXVJPSNJQisBsUYyj/fuLrxM1yIqTOea [id number]:53:00 [facility])Rehab Progress NoteREPORT#:[id number] REPORT STATUS: SignedDATE:08/25/22 TIME: 0553 PATIENT: BRENNAN AHN UNIT #: [id number]#: [id number] ROOM[facility]BED: [facility] [place]DOB: [birth year] AGE: 82 SEX: M ATTEND: Arthur Fuentes MDADM AUTHOR: Arthur Fuentes MD * ALL edits or amendments must be made on the electronic/computer document * SubjectiveChief complaint:Rehab follow-upUneventful eveningComplains of left chest and rib pain after fall yesterdayRequires sitter due to fallsNADEating well+ BMDenies MORA/N/V/D/CP14 systems reviewed and neg. except that above.History of present illness:82-year-old male with PMH of Alzheimer's dementia, CKD, HTN, atrial fibrillation, history of SVT/ablation who was transferred to [facility] ED after being foundto have multivessel coronary artery disease. Patient initially with was at homeand developed chest pains. [facility] multivessel CAD. Patient evaluated here by cardiothoracic surgery and underwent CABG x5 on 08/10. Patient with postoperative anemia and significant impairment in mobility. Pt is progressing slowly with therapy d/t weakness, self care deficit, decreased endurance and balance, and decreased functional mobility. Pt requiring acute inpt rehab for multidisciplinary team of nursing, therapy, and physicians. Pt is willing and able to participate in 3 hr/day inpt rehab to d/c home safely. Daughter states pt's prior level of function was independent. Currently patient has generalizedweakness. He lives by himself in a one-step up house. He denies any shortness of breath, nausea, vomiting, fever, chills. Denies chest pain. He is complaining of some constipation. He tells me that is in the process of sellinghis home. Preadmission screen was completed. Patient admitted to IRF. Objective GeneralVS:Vital Signs: Date Time Temp Pulse Resp B/P B/P Pulse O2 O2 Flow FiO2 Mean Ox Delivery Rate 08/25 0447 97.3 73 18 120/76 90.6 96 Room air 08/25 0018 97.5 67 18 126/74 91.3 93 08/24 2204 97.9 97 18 92/52 64.9 93 Room air 08/25 2155 98.6 82 17 123/70 87.4 94 Room air 08/24 2153 98.4 78 18 145/70 94.9 95 Room air 08/24 2040 93 Room air 08/24 1920 97.5 84 19 155/77 102.9 99 Room air 08/24 1534 77 19 145/76 99.0 08/24 1110 76 18 156/84 107.9 96 Room air 08/24 0647 97.5 72 18 132/62 85.3 97 PATIENT WEIGHT: Weight (lb): 221Weight (oz): 9.03Weight (kg): 100.500 Medications:Active Meds + DC'd Last 24 HrsLidocaine (LIDODERM) 1 PATCH DAILY TOPICAL Midodrine (PROAMATINE) 2.5 MG BID 9A 5P PRN PO Lidocaine (LIDODERM) 1 PATCH DAILY TOPICAL Metoprolol Tartrate (LOPRESSOR) 12.5 MG Q12HR PO Midodrine (PROAMATINE) 5 MG TID AC PO (DC) Duloxetine HCl (CYMBALTA) 60 MG BEDTIME PO Ezetimibe (ZETIA) 10 MG DAILY PO Amiodarone HCl (CORDARONE) 200 MG BID PO Aspirin (ASPIRIN) 81 MG DAILY PO Clopidogrel Bisulfate (Plavix) 75 MG DAILY PO Cyanocobalamin (Vitamin B-12 500 mcg tab) 500 MCG DAILY PO Ferrous Sulfate (FERROUS SULFATE) 325 MG DAILY PO Polyethylene Glycol (MIRALAX) 17 GM DAILY PO Pantoprazole (PROTONIX) 40 MG DAILY@0600 PO Budesonide (PULMICORT RESPULES) 0.5 MG RTBID INH Formoterol Fumarate (PERFOROMIST) 20 MCG RTBID NEB Docusate Sodium (COLACE) 100 MG BID PO Ipratropium [place] (ATROVENT) 500 MCG RTQ6H INH Sennosides (Senna Lax 8.6 MG TABLET) 17.2 MG BEDTIME PO Hydralazine HCl (APRESOLINE) 10 MG Q6H PRN PRN IV Acetaminophen (TYLENOL) 650 MG Q4H PRN PRN PO Ipratropium [place] (ATROVENT) 500 MCG RTQ2H PRN PRN INH Melatonin (Melatonin) 6 MG BEDTIME PRN PO Ondansetron HCl (ZOFRAN ODT) 4 MG TID PRN PRN SL Physical ExamGeneral appearance: alert, awake, no acute distressPsych: alert, normal affect, oriented x 3HEENT: anicteric, mucosal membranes moist, pupils reactive to light, sclera clearNeck: non-tender, supple, no JVDCardiovascular: irregular rhythm, S1/S2, cap refill wnl, pulses intactRespiratory: diminished breath sounds, on oxygen, aerating wellAbdomen: bowel sounds present, non-distended, soft, non-tenderSkin: dry, normal temperature, no rash, bruising R thigh, mild L thigh, BUE, R hand Sl tender/edema, sternum incision RSH site CDI, bruising L chest wall, mildly tender, R elbow abrasionMusculoskeletal - general: Musculoskeletal - general: OA changes, normal tone, no swelling, Moves all 4 exts AG, calves NT, no cords, Homans negNeuro/TEAROOM HOST/HOSTESS: alert, oriented X 3, CNII-XII intact, normal speech, no motor deficits, no sensory deficits ResultsFindings/Data:Laboratory Tests: 08/24 1020 Urines Urine Color (YEL/STRAW) ALBERTO H Urine Appearance (CLEAR) CLEAR Urine pH (5.0 - 7.0) 5.0 Ur Specific [place] (1.005 - 1.030) 1.011 Urine Protein (NEGATIVE) NEGATIVE Urine Glucose (UA) (NEGATIVE) NEGATIVE Urine Ketones (NEGATIVE) NEGATIVE Urine Blood (NEGATIVE) NEGATIVE Urine Nitrite (NEGATIVE) COLOR INTERFERENCE Urine Bilirubin (NEGATIVE) NEGATIVE Urine Urobilinogen (0.2 - 1.0 mg/dL) COLOR INTERFERENCE Ur Leukocyte Esterase (NEGATIVE) NEGATIVE Urine RBC (0 - 3 RBC/HPF) 0-3 Urine WBC (0 - 3 WBC/HPF) 4-9 H Ur Squamous Epith Cells (NONE SEEN /HPF) 0-5 Urine Bacteria (NONE SEEN /HPF) TRACE Hyaline Casts (NONE SEEN /LPF) 6-10 Urine Mucus (NONE SEEN /LPF) TRACE Laboratory Tests 08/23 08/24 08/25 0700 1020 0515Chemistry Sodium (134 - 147 mEq/L) 138 136 Potassium (3.4 - 5.0 mEq/L) 4.2 3.8 Chloride (100 - 108 mEq/L) 100 100 Carbon Dioxide (21 - 33 mEq/l) 30 29 Anion Gap (0 - 20) 12 10 BUN (7 - 18 mg/dL) 30 24 Creatinine (0.6 - 1.3 mg/dL) 2.2 1.9 Glomerular Filtr Rate (70 - 80) 29.5 35.2 Glucose (70 - 110 mg/dL) 93 96 Calcium (8.0 - 10.5 mg/dL) 9.4 9.1 Ionized Calcium Suzanna (1.09 - 1.30 MMOL/L) 1.14 Magnesium (1.80 - 2.40 mg/dL) 1.89Hematology WBC (4.5 - 11.0 x10 3/uL) 10.4 RBC (4.00 - 5.60 x10 6/uL) 3.20 Hgb (12.5 - 16.9 g/dL) 9.7 Hct (37.5 - 50.7 %) 30.4 MCV (81.0 - 99.0 fL) 95.0 MCH (27.0 - 33.0 pg) 30.3 MCHC (33.0 - 37.0 g/dL) 31.9 RDW (11.5 - 14.5 %) 14.6 Plt Count (150 - 400 x10 3/uL) 489 MPV (7.0 - 9.0 fL) 9.3 Neut % (Auto) (56.0 - 77.0 %) 77.1 Lymph % (Auto) (14.0 - 32.0 %) 8.0 [place] % (Auto) (4.8 - 9.0 %) 6.8 Eos % (Auto) (0.3 - 3.7 %) 6.5 Baso % (Auto) (0.0 - 2.0 %) 0.8 Neut # (Auto) (2.0 - 7.6 x10 3/uL) 8.00 Lymph # (Auto) (1.0 - 3.8 x10 3/uL) 0.83 [place] # (Auto) (0.1 - 0.8 x10 3/uL) 0.71 Eos # (Auto) (0.0 - 0.2 x10 3/uL) 0.67 Baso # (Auto) (0.0 - 0.2 x10 3/uL) 0.08 Abs Immat Gran (auto) (0.00 - 0.03 x10 3/uL) 0.08 Add Manual Diff NO Immature Gran % (0.0 - 2.0 %) 0.8 Nucleated RBC % (0 - 0 %) 0.0 Nucleated RBCs # (Man) (0.0 - 0.1 x10 3/uL) 0.00Urines Urine Color (YEL/STRAW) ALBERTO Urine Appearance (CLEAR) CLEAR Urine pH (5.0 - 7.0) 5.0 Ur Specific [place] (1.005 - 1.030) 1.011 Urine Protein (NEGATIVE) NEGATIVE Urine Glucose (UA) (NEGATIVE) NEGATIVE Urine Ketones (NEGATIVE) NEGATIVE Urine Blood (NEGATIVE) NEGATIVE Urine Nitrite (NEGATIVE) COLOR INTERFERENCE Urine Bilirubin (NEGATIVE) NEGATIVE Urine Urobilinogen (0.2 - 1.0 mg/dL) COLOR INTERFERENCE Ur Leukocyte Esterase (NEGATIVE) NEGATIVE Urine RBC (0 - 3 RBC/HPF) 0-3 Urine WBC (0 - 3 WBC/HPF) 4-9 Ur Squamous Epith Cells (NONE SEEN /HPF) 0-5 Urine Bacteria (NONE SEEN /HPF) TRACE Hyaline Casts (NONE SEEN /LPF) 6-10 Urine Mucus (NONE SEEN /LPF) TRACE 08/25 0515 Chemistry Cortisol AM Sample (ug/dL) 29.44 Radiology data:Recent Impressions:RADIOLOGY - XR RIBS UNI 2 V LT 08/24 1455 Report Impression - Status: SIGNED Entered: 08/24/2022 1606 IMPRESSION: Healing fractures of the left lateral 7th and 8th ribs.Small left pleural effusion.Impression By: [email or web address] - Florentino Perez M.D. Diagnosis, Assessment PlanProblem List/A P: 1. CAD (coronary artery disease) 2. Afib 3. HTN (hypertension) 4. S/P CABG x 5 5. Impaired functional mobility, balance, gait, and endurance Free Text A P:Assessment:Multivessel CAD3/9: S/p CABG x5-Dr. Lind-fib s/p a LAAEndoscopic RGSV harvest08/16: Echo-EF 50-54%, small pericardial effusionSmall bilateral pleural effusions.Muscle weakness Unsteady gaitAlzheimer's dementia (as per family), poor memoryPostoperative anemiaAKI on CKDHTNImpairment in self-care, ADLs and functional mobility Plan:-Continue PT/OT-Case management for safe discharge planning.-Decubitus prevention-protective hydrating lotion-turn every 2 swxek-ljkrfry-Xkujd program-MiraLAX, senna-Nutrition, monitor the patient's p.o. intake, check albumin 3.5 and prealbumin 14.3, dietary consult, protein supplements. Cardiac diet. BMI above normal parameters. Working with dietary, follow up with PCP-Strict fall and safety precaution-DVT arkmxljteaw-PDAc-TA prophylaxis on Protonix-CAD on Plavix and aspirin, intolerant to statins-Pulmonary toilet frequent I-S, nebs, wean O2-Early mobilization-OOB to chair-Work on bed mobility, transfer training, ADLs, pre-gait and gait exercises as tolerable. -Increase endurance and strength-Pain management-Postop care as per CVS-Monitor telemetry-Cardiology on case-LADARIUS as per nephrology-He was following specialist managers in [place] so plan to refer to his specialist managers post discharge.-Dementia/confusion-Higher level of nursing care and monitoring for safety-Strict sternal precautions-patient with poor carryover of sternal precautions-Monitor sites of bruising and right hand pain-from previous phlebotomy sites-nosigns of infection-Labs reviewed-WBC normal, hemoglobin 9.1, 8.9, 9.7 platelets stable, creatinine1.9, 2.2, 1.9 magnesium normal, HgbA1C 5.2. -Anemia-vitamin B12 and ferrous myvanlh-RSC-RC stable-orthostasis/dizziness-diuretic s reduced-midodrine added as needed-use ENZO hose and abdominal binder when out of bed-monitor. Medications being monitored by cardiology-Removed sutures x2 from lower chest on 08/2541-Jwkpqy-jo with PCP for dementia uxkreezzhj-Pfzgyei-LW negative-completed Pyridium-symptoms resolved-08/22: Fall: Seen by trauma team after fall. CT head negative. Right shoulder x-ray negative for fracture. Patient patient appears to be at his baseline-08/24: Fall-no head injury-left rib pain-left rib film-no acute fractures, healing fractures of the left lateral 7th and 8th ribs. Small left pleural effusion-Lidoderm jfmiz-vwspbct-HE called me this afternoon and said pt's R elbow hurting more. 2 view R elbow x ray-no acute fracture-Lidoderm patch-pain management-Advance therapies as tolerable -1:1 sitter due to multiple falls-Patient able to ambulate 50 to 55 feet with rolling walker and has significant issues with memory. Patient making slow progress with functional goals limited due to cognitive deficits. Poor carryover of sternal precautions. Requires verbal cues to maintain sternal precautions with transfers. PM RPlease see team note.Plan and goals discussed with the patient. I agree with the teams findingELOS: [08/29]DC-SNF placementDME-bedside commode, rolling walker Total time was 34 minutes > 50% with patient performing physical examination, discussing with patient about fall precaustions, 1:1 sitter, discharge plans, sternal precautions, plan of care, goals, therapies, progress, medications, labs. All questions answeredConsultants: cardiology, cardiovascular surgery, hospitalist, nephrologyRehab attestation:Face to face exam completed. Treatment plan discussed with patient. Meets continued stay criteria. Agree with interdisciplinary treatment plan. at 1050 RPT #:[id number] OF REPORTPRProgress [id number]:53:00G.[id number] for patient kdlkXUKRXZPYBHKMFO9008-13-08L23:50:29 [facility] 2022-08-24 14:22:00 [id number]+fXmLT ybhqzZRmWypYuWyQn5NI6BFW/gDHHeMx56T7Y Mp3321-43-67U13:22:00 [facility]Internal [facility] Prog. NoteREPORT#:[id number] REPORT STATUS: SignedDATE:08/24/22 TIME: 1421 PATIENT: BRENNAN AHN UNIT #: [id number]#: [id number] [address] [birth year] AGE: 82 SEX: M ATTEND: Arthur Fuentes [facility] AUTHOR: Devin Fox DO * ALL edits or amendments must be made on the electronic/computer document * SubjectiveChief complaint:pt fell again today. c/o R elbow pain Review of SystemsAll systems rev neg: except as marked Objective GeneralVS/I O:Vital SignsDate Temp Pulse Resp B/P B/P Mean Pulse Ox NzZ115/-08/24 97.5-98.6 62-85 16-20 105-156/53-84 70.2-107.9 94-97 Last Documented: Result Date Time Pulse Ox 96 08/24 1110 B/P 156/84 08/24 1110 B/P Mean 107.9 08/24 1110 O2 Delivery Room air 08/24 1110 Pulse 76 08/24 1110 Resp 18 08/24 1110 Temp 97.5 08/24 0647 FiO2 21 08/22 1948 24 hour I O ending at 0700: 08/24 0700 08/23 1900 Intake Total 100 Output Total Balance 100 Intake, Oral 100 Number 1 Bowel Movements Number 1 Incontinent Voids Number Voids 0 PATIENT WEIGHT: Weight (lb): 221Weight (oz): 9.03Weight (kg): 100.500 Medications:Active Meds + DC'd Last 24 HrsLidocaine (LIDODERM) 1 PATCH DAILY TOPICAL Midodrine (PROAMATINE) 2.5 MG BID 9A 5P PRN PO Lidocaine (LIDODERM) 1 PATCH DAILY TOPICAL Metoprolol Tartrate (LOPRESSOR) 12.5 MG Q12HR PO Midodrine (PROAMATINE) 5 MG TID AC PO Duloxetine HCl (CYMBALTA) 60 MG BEDTIME PO Ezetimibe (ZETIA) 10 MG DAILY PO Amiodarone HCl (CORDARONE) 200 MG BID PO Aspirin (ASPIRIN) 81 MG DAILY PO Clopidogrel Bisulfate (Plavix) 75 MG DAILY PO Cyanocobalamin (Vitamin B-12 500 mcg tab) 500 MCG DAILY PO Ferrous Sulfate (FERROUS SULFATE) 325 MG DAILY PO Polyethylene Glycol (MIRALAX) 17 GM DAILY PO Pantoprazole (PROTONIX) 40 MG DAILY@0600 PO Budesonide (PULMICORT RESPULES) 0.5 MG RTBID INH Formoterol Fumarate (PERFOROMIST) 20 MCG RTBID NEB Docusate Sodium (COLACE) 100 MG BID PO Ipratropium [place] (ATROVENT) 500 MCG RTQ6H INH Sennosides (Senna Lax 8.6 MG TABLET) 17.2 MG BEDTIME PO Hydralazine HCl (APRESOLINE) 10 MG Q6H PRN PRN IV Acetaminophen (TYLENOL) 650 MG Q4H PRN PRN PO Ipratropium [place] (ATROVENT) 500 MCG RTQ2H PRN PRN INH Melatonin (Melatonin) 6 MG BEDTIME PRN PO Ondansetron HCl (ZOFRAN ODT) 4 MG TID PRN PRN SL Physical ExamGeneral appearance: alert, awake, orientedHead/Eyes: EOMI, PERRLANeck: non-tender, no JVDCardiovascular: normal heart sounds, regular rate rhythmRespiratory: aerating well, clear to auscultationAbdomen: non-tender, normal bowel soundsExtremities: Extremities: no cyanosis, no edemaNeuro/TEAROOM HOST/HOSTESS: alert, oriented x 3, CNII-XII intact ResultsFindings/Data:Laboratory Tests 08/24 1020 Urines Urine Color (YEL/STRAW) ALBERTO H Urine Appearance (CLEAR) CLEAR Urine pH (5.0 - 7.0) 5.0 Ur Specific [place] (1.005 - 1.030) 1.011 Urine Protein (NEGATIVE) NEGATIVE Urine Glucose (UA) (NEGATIVE) NEGATIVE Urine Ketones (NEGATIVE) NEGATIVE Urine Blood (NEGATIVE) NEGATIVE Urine Nitrite (NEGATIVE) COLOR INTERFERENCE Urine Bilirubin (NEGATIVE) NEGATIVE Urine Urobilinogen (0.2 - 1.0 mg/dL) COLOR INTERFERENCE Ur Leukocyte Esterase (NEGATIVE) NEGATIVE Urine RBC (0 - 3 RBC/HPF) 0-3 Urine WBC (0 - 3 WBC/HPF) 4-9 H Ur Squamous Epith Cells (NONE SEEN /HPF) 0-5 Urine Bacteria (NONE SEEN /HPF) TRACE Hyaline Casts (NONE SEEN /LPF) 6-10 Urine Mucus (NONE SEEN /LPF) TRACE Radiology data:Recent Impressions:RADIOLOGY - XR ELBOW 2 VIEWS RT 08/24 1839 Report Impression - Status: SIGNED Entered: 08/23/20221922 IMPRESSION: No fracture or dislocation. Impression By: NayelyAMRenetta Pope M.D. Diagnosis, Assessment PlanHospital course to date:82-year-old male with past medical history of hypertension, atrial fibrillation,supraventricular tachycardia status post ablation who was admitted with reports of multivessel coronary artery disease found on a cardiac catheterization done at [facility]. Patient was transferred to [facility] for CABG. He underwent QIUEi3a. 1. Coronary artery disease-Status post CABG x5, ALAA, PVI-Continue metoprolol, Plavix, aspirin 2. Atrial fibrillation-Continue po amiodarone for rate control- taper AMIO per cards-Continue metoprolol-Monitor and review telemetry 3. Debility/-.-PT/OT- PMR- Inpt Rehab 4. ARF- Trend cr 1.3-1.9-2.2-2.0-1.9-2.2- post op, post lasix therefore likely pre-renal- baseline CKD is suspected- nephro consulted 5. anemia- acute, post op expecteed- monitor and transfuse if hg <7- cont po Iron- Trend Hg 9.1 6. Delirium/ dementia-Likely due to sundowning-Monitor closely-Patient is neurologically intact 7. FALLs- 08/22, 08/24- ct head neg- R shoulder Xr neg- R elbow pain- mild- pain meds prn 8. Dysuria- UA neg- on pyridium prn- consider Urologist consult 9. Orthostatic hypotension- cont Midodrine and adjust up - check orthostatic VS d/w RN and Pt in detailstotal time spent 35mins d/w Consultants: cardiology, cardiovascular surgery, hospitalist, nephrology Quality: Gen Med Crit Care Current MedicationsCurrent medication review:I attest that the foregoing medication list in the medical record is true, accurate, and complete to the best of my knowledge. Advanced Care Plan 65 or OlderDiscussed with: patientDiscussion included: code status at 0917 RPT #:[id number] OF REPORTPRProgress [id number]:22:00G.[id number] for patient rojrPWSIZAPKUBOKOG8616-77-78L36:18:03 [facility] 2022-08-24 11:36:00 [id number] VOz5STmhWQY0gcJ+PAdd/JmE3B2Rpy0AYHSuJ [id number]:36:00 [facility] ([facility])Cardiothoracic Surgery ProgREPORT#:[id number] REPORT STATUS: SignedDATE:08/24/22 TIME: 113 PATIENT: BRENNAN AHN UNIT #: [id number]#: [id number] [address] [birth year] AGE: 82 SEX: M ATTEND: Arthur Fuentes [facility] AUTHOR: Shiloh Pimentel BUILDING PRINCIPAL * ALL edits or amendments must be made on the electronic/computer document * GeneralStatus post:CABG PVI SubjectiveChief complaint:Follow up CABG Review of SystemsConstitutional:Denies: chills, fever, malaise. Allergy/Immun:Denies: allergic reaction. ENT:Denies: sore throat. Respiratory:Denies: hemoptysis, SOB. GI:Denies: nausea, vomiting. Heme:Denies: bleeding. Neuro:Denies: headache. All systems rev neg: except as marked Objective GeneralVS/I OLast Documented: Result Date Time Pulse Ox 96 08/24 1110 B/P 156/84 08/24 1110 B/P Mean 107.9 08/24 1110 O2 Delivery Room air 08/24 1110 Pulse 76 08/24 1110 Resp 18 08/24 1110 Temp 97.5 08/24 0647 FiO2 21 08/22 1948 24 hour I O ending at 0700: 08/24 0700 08/23 1900 Intake Total 100 Output Total Balance 100 Intake, Oral 100 Number 1 Bowel Movements Number 1 Incontinent Voids Number Voids 0 PATIENT WEIGHT: Weight (lb): 221Weight (oz): 9.03Weight (kg): 100.500 Physical ExamGeneral appearance: alert, mental status normal, no respiratory distressWound/incision: Location:sternumHEENT: anictericCardiovascular: normal heart sounds, regular rate rhythmRespiratory: aerating well, clear to auscultation, symmetric expansion, no distressAbdomen: soft, non-tender, no distentionExtremities: moves allNeuro/TEAROOM HOST/HOSTESS: alert, oriented X 3, normal speech, no motor deficitsPsychiatry: normal affect, normal mood Current MedicationsMedications:Active Meds + DC'd Last 24 HrsMidodrine (PROAMATINE) 2.5 MG BID 9A 5P PRN PO Lidocaine (LIDODERM) 1 PATCH DAILY TOPICAL Metoprolol Tartrate (LOPRESSOR) 12.5 MG Q12HR PO Midodrine (PROAMATINE) 5 MG TID AC PO Duloxetine HCl (CYMBALTA) 60 MG BEDTIME PO Ezetimibe (ZETIA) 10 MG DAILY PO Amiodarone HCl (CORDARONE) 200 MG BID PO Aspirin (ASPIRIN) 81 MG DAILY PO Clopidogrel Bisulfate (Plavix) 75 MG DAILY PO Cyanocobalamin (Vitamin B-12 500 mcg tab) 500 MCG DAILY PO Ferrous Sulfate (FERROUS SULFATE) 325 MG DAILY PO Polyethylene Glycol (MIRALAX) 17 GM DAILY PO Pantoprazole (PROTONIX) 40 MG DAILY@0600 PO Budesonide (PULMICORT RESPULES) 0.5 MG RTBID INH Formoterol Fumarate (PERFOROMIST) 20 MCG RTBID NEB Docusate Sodium (COLACE) 100 MG BID PO Ipratropium [place] (ATROVENT) 500 MCG RTQ6H INH Sennosides (Senna Lax 8.6 MG TABLET) 17.2 MG BEDTIME PO Hydralazine HCl (APRESOLINE) 10 MG Q6H PRN PRN IV Acetaminophen (TYLENOL) 650 MG Q4H PRN PRN PO Ipratropium [place] (ATROVENT) 500 MCG RTQ2H PRN PRN INH Melatonin (Melatonin) 6 MG BEDTIME PRN PO Ondansetron HCl (ZOFRAN ODT) 4 MG TID PRN PRN SL ResultsFindings/Data:Laboratory Tests 08/24 1020 Urines Urine Color (YEL/STRAW) ALBERTO H Urine Appearance (CLEAR) CLEAR Urine pH (5.0 - 7.0) 5.0 Ur Specific [place] (1.005 - 1.030) 1.011 Urine Protein (NEGATIVE) NEGATIVE Urine Glucose (UA) (NEGATIVE) NEGATIVE Urine Ketones (NEGATIVE) NEGATIVE Urine Blood (NEGATIVE) NEGATIVE Urine Nitrite (NEGATIVE) COLOR INTERFERENCE Urine Bilirubin (NEGATIVE) NEGATIVE Urine Urobilinogen (0.2 - 1.0 mg/dL) COLOR INTERFERENCE Ur Leukocyte Esterase (NEGATIVE) NEGATIVE Urine RBC (0 - 3 RBC/HPF) 0-3 Urine WBC (0 - 3 WBC/HPF) 4-9 H Ur Squamous Epith Cells (NONE SEEN /HPF) 0-5 Urine Bacteria (NONE SEEN /HPF) TRACE Hyaline Casts (NONE SEEN /LPF) 6-10 Urine Mucus (NONE SEEN /LPF) TRACE Radiology data:Recent Impressions:RADIOLOGY - XR ELBOW 2 VIEWS RT 08/24 1839 Report Impression - Status: SIGNED Entered: 08/23/20221922 IMPRESSION: No fracture or dislocation. Impression By: Aditya Pope M.D. Quality: Trauma Gen Surg Advanced Care Plan 65 or OlderDiscussed with: patientDiscussion included: code status Current MedicationsCurrent medication review:I attest that the foregoing medication list in the medical record is true, accurate, and complete to the best of my knowledge. Diagnosis, Assessment PlanHospital course to date:Hospital course to date:82 year old with PMH of hypertension, atrial fibrillation, On Eliquis, Hx of SVT ablation 20 years ago transferred to [facility] with new findings of multi-vessel CAD. He reports he was woken from Sleep on Sunday AM with COmplaints of chest pains. EMS aas called and patient was taken to [facility]. He underwent LHC and found to have multi-vessel CAD by Dr Sanchez. Patient was transferred to [facility] for CABG. Patient lives independently. Daughter is at bedside. Patient reports last dose of Elliquis was Sunday AM. Echo was done at [facility] showing EF 55%, Mild MR, Mild AI, mild LVH. According to his records, he has a hx of Chronic kidney disease with baseline Creatine reportedly 1.5. He does report he has seen a renal MD in the past. Assessment/ Plan1) CAD, Mutli-vessel2) hypertension Continue BBLKR Add Norvasc 5 mg3) Atrial fibrillation. Last dose of Eliquis Sunday AM Obtain EKG4) BPH Continue flomax Workup for CABG underway. Patient was seen and examined by Dr Hurd. Coronary artery bypass surgery was discussed with the patient. The risk of the operation,including the STS score, cristian of blleding, infection, heart attack, stroke, Tracheostomy etc discussed with the patient. CT chest, carotid US, Vein mapping ordered. 08/11/22POD 1 s/p CABG x 5 (NGUYEN-LAD, SVG-Olga Lidia, SVG-OM, SVG-LPLA, SVG-PDA), PVI, ALAA, EVH (RGSV)Patient hemodynamically stable this morning, having episodes of vagal response and BP drops 20 points, SR and sinus arrythmnia noted on monitoring analyst, V epicardial wires on backup rate of 50Amiodarone bolus and dripKeep MS chest tube and monitor outputs, DC LP chest tube after ambulationMinimal oxygen requirements on 2l nasal cannula, encourage deep breathing and I-S useCXR and labs reviewedPain managementGlycemic control on insulin dripCardiac diet, nutritional supplementsBowel regimen, + gasStrict I Os, daily weights, albmuin x 1 given for decreased UOP- monitor hourlySCDs for DVT and PPI for GI prophylaxisPT/OTMonitor patient closely in CVICU, continue supportive carePatient seen with Dr. Hurd, plan of care discussed with ICU team. 08/12 Alert and oriented, up in the chairRemains on amiodarone drip for A-fibWean dopamine offChest x-ray reviewed. Breathing comfortably on room airCreatinine increased to 1.9, urine output 1.5 L last night after the boluses of LasixRepeat renal panel today show creatinine 2.2. Nephrology consulted, hold off onadditional LasixReplace electrolytesEncourage I-S and mobilizationGlycemic controlledKeep in CVICU for close monitoringPatient seen and plan reviewed with Dr Piper, Dr Kirkpatrick, ICC and multidisciplinaryteam 08/13 Intermittently confused. Continue delirium precautionsMinimal O2 requirements, wean O2 as toleratedAllow for permissive hypertension as urine output improved with higher blood pressureMonitor renal functionEncourage p.o. intake, bowel regimenRemains in A-fib, heart rate fairly controlled. Amiodarone drip at 0.5Discontinue mediastinal chest tubeGlycemic controlKeep in CVICU for close monitoring.Patient seen and plan reviewed with MCKAYLA Armenta multidisciplinary teamFamily updated at the bedside 08/14 Patient is alert and oriented, delirium precautionsO2 requirements, encourage I-SPermissive hypertension for better renal perfusionCreatinine trending down, good urine output. Hold Lasix for nowEncourage p.o. intake, bowel regimenElectrolyte replacement as neededKeep in CVICU todayPlan for rehab. Awaiting insurance approvalPatient was seen and plan reviewed with MCKAYLA Rojo and multidisciplinary team 08/15 No major events overnight Resp status stable on RA. Encourage ISHD stable. Remains in A fib, HR controlled Continue PO amio, BB increased to 25 mg BID Renal function improved, good UOP Will DC pacing wires tomorrow PT/OTPlan for rehab. Awaiting insurance approvalPatient was seen and plan reviewed with MCKAYLA Rojo and multidisciplinary team 08/16Creatine 1.9--> 2.0- Followed by Renal. appreciate input. DE-LINED. Longo outAmbulating. UO: PO lasix today. Cardiac: Atrial fib- rate controlled. On po amio- Pacing wires removed- Echo ordered.DVT studies orderd. Respiratory: On room air. Small left pleural effsuion. GI: + BMGU: Voiding well. Renal followingDispo: Rehab when bed available. 08/17Patient resting comfortable. Seen in inpatient rehab.Ambulating well. Working with PTVoiding well. Positive bowel movements.Respiratory on room air.Cardiac: Sinus rhythm. Will decrease amiod to 200 BIDGI: + BMContinue pT/OTmaking good progress. 08/21 Patient seen in rehab Respiratory status stable on RA No changes in sternal incision. Continue sternal precautions for 6 weeks Monitor renal function. Diuresis by nephrology Encourge PO intake, bowel regimen Continue rehab 08/24 S/p fall on 08/22, CT negative for acute process Patient was having orthostatic hypotension, medications adjusted, midodrine 5 mg3 times daily, compression stockings and abdominal binder before out of bedVolume status improved. Lasix discontinuedNo further episodes of orthostatic hypotension todayContinue rehab Consultants: cardiology, cardiovascular surgery, hospitalist, nephrology at 1141 at 1525 RPT #:[id number] OF REPORTPRProgress [id number]:36:[id number] for patient [id number]:41:40 [facility] 2022-08-24 11:03:00 [id number] [id number]:03:00 [facility] ([facility])Nephrology Progress NoteREPORT#:[id number] REPORT STATUS: SignedDATE:08/24/22 TIME: 1103 PATIENT: BRENNAN AHN UNIT #: [id number]#: [id number] [address] AGE: 82 SEX: M ATTEND: Arthur Fuentes [facility] AUTHOR: Maura Terrazas MD * ALL edits or amendments must be made on the electronic/computer document * SubjectiveChief complaint:chest painHPI:82-year-old male known to have hypertension, atrial fibrillation, supraventricular tachycardia with requiring ablation presenting with multivesselcardiovascular disease and he underwent CABG 07/13/2022. He endorsed having kidney issues in the past and seeing a specialist managers at [place] but his kidney function had been stable since then.He developed oliguria,LADARIUS and hypervolemia post CABG but had now improved and was transferred to rehab. 08/24Patient appearing comfortable,denying all systemic review including dizziness. Objective GeneralVS/I O:Vital Signs: Date Time Temp Pulse Resp B/P B/P Pulse O2 O2 Flow FiO2 Mean Ox Delivery Rate 08/24 0647 36.4 72 18 132/62 85.3 97 08/24 0512 37.0 81 16 132/67 88.8 96 Room air 08/24 0239 95 Room air 08/24 0025 36.6 81 16 120/61 81.1 95 Room air 08/23 2151 94 Room air 08/23 1907 36.8 72 16 126/68 87.4 94 Room air 08/23 1722 62 105/53 70.2 08/23 1540 36.6 85 20 137/80 99.4 97 24 hour I O ending at 0700: 08/24 0700 08/23 1900 Intake Total 100 Output Total Balance 100 Intake, Oral 100 Number 1 Bowel Movements Number 1 Incontinent Voids Number Voids 0 PATIENT WEIGHT: Weight (lb): 221Weight (oz): 9.03Weight (kg): 100.500 Physical ExamGeneral appearance: alert, awake, orientedHead/eyes: atraumatic, clear cornea, EOMIENT: moist mucous membranes, normal noseNeck: no JVD, no masses or swellingCardiovascular: normal heart sounds, regular rate and rhythmRespiratory: aerating well, clear to auscultationAbdomen: non-tender, softGenitourinary: no bladder distention, no flank painExtremities: pitting edema, no gangrene, no swelling Diagnosis, Assessment PlanFree Text A P:82-year-old male known to have hypertension, atrial fibrillation, supraventricular tachycardia with requiring ablation presenting with multivesselcardiovascular disease and he underwent CABG 07/13/2022. Transferred to rehab for therapy. Nephrology following for: 1. Acute kidney injury: Most likely prerenal as he recently had surgery. Renal function Improved.Plan to monitor. 2. Hypervolemia:Patient at high risk of volume overload so would reccommend lasix PO, lasix held due to hypotension .Volume improved. 3. Electrolytes: His electrolytes appear to be in normal range plan is to monitor and replace as needed. 4. HTN:Controlled with current medications.Plan to continue same.He develops orthostasis so medication doses minimised. 08/21 1. Acute kidney injury: Most likely prerenal as he recently had surgery. Resolving with better hemodynamics.His kidney function was stable plan was to monitor closely. 2. Hypervolemia:Patient at high risk of volume overload so would reccommend lasix PO .He recently developed orthostasis so dose reduced to 40 PO daily. Plan to increase lasix to Q12H and add midodrine for hypotension,patient is not dizzy anymore and he was tolerating Lasix at current dose. Plan was to monitor input and output closely. 3. Electrolytes: His electrolytes appear to be in normal range plan is to monitor and replace as needed. 4. HTN:Currently he develops orthostatic hypotension so not on any medications besides lasix and metoprolol. He was requiring midodrine to keep his blood pressures above 100 systolic. 08/22 1. Acute kidney injury: Most likely prerenal as he recently had surgery. Renal function Improved.Plan to monitor. 2. Hypervolemia:Patient at high risk of volume overload so would reccommend lasix PO, lasix held due to hypotension .Volume improved. 3. Electrolytes: His electrolytes appear to be in normal range plan is to monitor and replace as needed. 4. Hypotension: Midodrine dose increased .Plan to monitor. 08/23 1. LADARIUS on CKD: Patient with stable renal function. Plan to keepMAP>65 and avoidnephrotoxic agents. He was following specialist managers in [place] so plan to refer to his specialist managers post discharge. 2. Hypervolemia:Patient at high risk of volume overload so would reccommend lasix PO, lasix held due to hypotension .Volume improving slowly. 3. Electrolytes: His electrolytes appear to be in normal range plan is to monitor and replace as needed. 4. Hypotension: Midodrine dose increased .Plan to monitor. 08/24 1. LADARIUS on CKD: Patient with stable renal function. Plan to keepMAP>65 and avoidnephrotoxic agents. He was following specialist managers in [place] so plan to refer to his specialist managers post discharge. 2. Hypervolemia:Patient at high risk of volume overload so would reccommend lasix PO, lasix held due to hypotension .Volume stable. 3. Electrolytes: His electrolytes appear to be in normal range plan is to monitor and replace as needed. 4. Hypotension: Midodrine dose increased .Plan to monitor and increase midodrine if SBP<110. Consultants: cardiology, cardiovascular surgery, hospitalist, nephrology at 1105 RPT #:[id number] OF REPORTPRProgress [id number]:03:00G.[id number] for patient [id number]:05:42 [facility] 2022-08-24 10:51:00 [id number]/xHvwHU 1UxMzEKM68PivIkJgaioFZUm/LQ7qBHpFVw8o [id number]:51:00 [facility] ([facility])Cardiology Progress NoteREPORT#:[id number] REPORT STATUS: SignedDATE:08/24/22 TIME: 1051 PATIENT: BRENNAN AHN UNIT #: [id number]#: [id number] [address] AGE: 82 SEX: M ATTEND: Arthur Fuentes [facility] AUTHOR: Catrina Shetty * ALL edits or amendments must be made on the electronic/computer document * SubjectiveComments:Event noted. Patient fell again today. He has now a one-to-one sitter Objective GeneralVS/I O:24 hour I O ending at 0700: 08/24 0700 08/23 1900 Intake Total 100 Output Total Balance 100 Intake, Oral 100 Number 1 Bowel Movements Number 1 Incontinent Voids Number Voids 0 Vital Signs: Date Time Temp Pulse Resp B/P B/P Pulse O2 O2 Flow FiO2 Mean Ox Delivery Rate 08/24 0647 36.4 72 18 132/62 85.3 97 08/24 0512 37.0 81 16 132/67 88.8 96 Room air 08/24 0239 95 Room air 08/24 0025 36.6 81 16 120/61 81.1 95 Room air 08/23 2151 94 Room air 08/23 1907 36.8 72 16 126/68 87.4 94 Room air 08/23 1722 62 105/53 70.2 08/23 1540 36.6 85 20 137/80 99.4 97 PATIENT WEIGHT: Weight (lb): 221Weight (oz): 9.03Weight (kg): 100.500 Medications:Active Meds + DC'd Last 24 HrsLidocaine (LIDODERM) 1 PATCH DAILY TOPICAL Metoprolol Tartrate (LOPRESSOR) 12.5 MG Q12HR PO Midodrine (PROAMATINE) 5 MG TID AC PO Duloxetine HCl (CYMBALTA) 60 MG BEDTIME PO Ezetimibe (ZETIA) 10 MG DAILY PO Amiodarone HCl (CORDARONE) 200 MG BID PO Aspirin (ASPIRIN) 81 MG DAILY PO Clopidogrel Bisulfate (Plavix) 75 MG DAILY PO Cyanocobalamin (Vitamin B-12 500 mcg tab) 500 MCG DAILY PO Ferrous Sulfate (FERROUS SULFATE) 325 MG DAILY PO Polyethylene Glycol (MIRALAX) 17 GM DAILY PO Pantoprazole (PROTONIX) 40 MG DAILY@0600 PO Budesonide (PULMICORT RESPULES) 0.5 MG RTBID INH Formoterol Fumarate (PERFOROMIST) 20 MCG RTBID NEB Docusate Sodium (COLACE) 100 MG BID PO Ipratropium [place] (ATROVENT) 500 MCG RTQ6H INH Sennosides (Senna Lax 8.6 MG TABLET) 17.2 MG BEDTIME PO Hydralazine HCl (APRESOLINE) 10 MG Q6H PRN PRN IV Acetaminophen (TYLENOL) 650 MG Q4H PRN PRN PO Ipratropium [place] (ATROVENT) 500 MCG RTQ2H PRN PRN INH Melatonin (Melatonin) 6 MG BEDTIME PRN PO Ondansetron HCl (ZOFRAN ODT) 4 MG TID PRN PRN SL Physical ExamGeneral appearance: chronically ill appearing, no acute distressNeck: non-tender, no JVDCardiovascular: CV assessment: irregularly irregularRespiratory: decreased breath sounds, no distressAbdomen: soft, non-tender, normal bowel sounds, no distentionGenitourinary: no flank pain, no urinary catheterLower extremity: LE assessment: edema (trace edema RLE - harvest site), no edemaMusculoskeletal: normal inspectionNeuro/TEAROOM HOST/HOSTESS: alertSkin: dryPsychiatry: normal affect, normal mood ResultsFindings/Data:Laboratory Tests 08/24 1020 Urines Urine Color (YEL/STRAW) ALBERTO H Urine Appearance (CLEAR) CLEAR Urine pH (5.0 - 7.0) 5.0 Ur Specific [place] (1.005 - 1.030) 1.011 Urine Protein (NEGATIVE) NEGATIVE Urine Glucose (UA) (NEGATIVE) NEGATIVE Urine Ketones (NEGATIVE) NEGATIVE Urine Blood (NEGATIVE) NEGATIVE Urine Nitrite (NEGATIVE) COLOR INTERFERENCE Urine Bilirubin (NEGATIVE) NEGATIVE Urine Urobilinogen (0.2 - 1.0 mg/dL) COLOR INTERFERENCE Ur Leukocyte Esterase (NEGATIVE) NEGATIVE Urine RBC (0 - 3 RBC/HPF) 0-3 Urine WBC (0 - 3 WBC/HPF) 4-9 H Ur Squamous Epith Cells (NONE SEEN /HPF) 0-5 Urine Bacteria (NONE SEEN /HPF) TRACE Hyaline Casts (NONE SEEN /LPF) 6-10 Urine Mucus (NONE SEEN /LPF) TRACE Radiology data:Recent Impressions:RADIOLOGY - XR ELBOW 2 VIEWS RT 08/23 1840 Report Impression - Status: SIGNED Entered: 08/23/20221922 IMPRESSION: No fracture or dislocation. Impression By: Aditya Pope M.D. Telemetry Interpretation:Atrial fibrillation with controlled rate Diagnosis, Assessment Plan Free Text DxA P NotesFree Text DxA P Notes:82 YO male with MHX of Afib, HTN, HLD, CAD who is s/p 5 vessel CABG and PVI and ALAA. The patient is transferred to [facility] for inpatient rehabilitation. We are consulted for continuity of cardiac-related care. 1. CAD s/p CABG x 5 (NGUYEN-LAD, SVG-Olga Lidia, SVG-OM, SVG-LPLA, SVG-PDA) continue asa, BB, plavix, Zetiaecho 08/12- LVEF 50-54%, left pleural effusionintolerant of statin, will consider nonstatin med such as Repatha or Nexletol outpatientLE edema subsided , off PO lasix d/t orthostatic hypotension 2. A-fib: Paroxysmal - rate controlleds/p PVI and ARISTEO amputationamiodarone 200 mg BID - taper dose prior to dischargeContinue low-dose metoprolol to 12.5 mg BID no need for AC since left atrial appendage was removed during CABG 3. HTN BP stableMidodrine changed to 2.5 mg twice daily as neededContinue low-dose metoprolol to 12.5 mg BID 4. AKInephrology following 5. Dizziness 2/2 orthostatic hypotension -improvingNo report of orthostasis stasis todayChange midodrine to as needed since BP stablecompression stocking and abdominal binder before OOB Taken off Lasix, will re-assess need for diuretic on a daily basis 6. s/p Fall 3/21 and 08/24CT head no acute findingR Elbow XR - no fractureL rib XR -healing fractures of the left lateral seventh and eighth ribs at 1708 at 1402 RPT #:[id number] OF REPORTPRProgress [id number]:51:00G.[id number] for patient [id number]:09:18 [facility] 2022-08-24 08:21:00 [id number]/m9 R93ylZi+JfV1cZqMe/GiboHP0VFz0/IU7HW6i [id number]:21:00 [facility] ([facility])Urology Consult NoteREPORT#:[id number] REPORT STATUS: SignedDATE:08/24/22 TIME: 820 PATIENT: BRENNAN AHN UNIT #: [id number]#: [id number] [address] AGE: 82 SEX: M ATTEND: Arthur Fuentes [facility] AUTHOR: Aubrey Keith MD * ALL edits or amendments must be made on the electronic/computer document * History of Present Illness HPIRequesting clinician: Dr. Burkett for consult:Dysuria Chief complaint:CABGHPI:Brennan Ahn is a 82-year-old male history of hypertension, A-fib, SVT, who underwent CABG 07/13/2022. He is currently in inpatient rehab. We are asked to evaluate the patient for dysuria. Patient reports 3-month history of dysuria. Denies LUTS prior to this. Denies straining with urination or weak stream. Denies hematuria although reports that his urine has been slightly red. He has urine analysis from 08/21/2022 that was negative for nitrites, leukocyte Esterace, although has trace bacteria. HistoryPast medical history:Reports: Atrial fibrillation, Coronary artery disease, Dementia, Kidney disease/stones. Past surgical history:Reports: CABG. Additional surgical history:Crevial Laminectomy amputation of left atrial appendageFamily history:Reports: Hypertension. Alcohol use: Denies EtOH useDrug use: Denies recreational drugsSmoking status for patients 13 years old or older: Former SmokerAllergies:Coded Allergies:Zzfrqvm-YKM-XoD Reductase Inhibitor (Severe, UNKNOWN 08/16/22) ObjectiveVS/I O:Last Documented: Result Date Time Pulse Ox 97 08/24 0647 B/P 132/62 08/24 0647 B/P Mean 85.3 08/24 0647 Temp 97.5 08/24 0647 Pulse 72 08/24 0647 Resp 18 08/24 0647 O2 Delivery Room air 08/24 0512 FiO2 21 08/22 1948 24 hour I O ending at 0700: 08/24 0700 08/23 1900 Intake Total 100 Output Total Balance 100 Intake, Oral 100 Number 1 Bowel Movements Number 1 Incontinent Voids Number Voids 0 PATIENT WEIGHT: Weight (lb): 221Weight (oz): 9.03Weight (kg): 100.500 Free text obj notes:Physical Examination: Constitutional: no acute distressEyes: normal external eye, conjunctiva and sclera normalEars, nose, mouth, throat: normocephalic, moist mucous membranesRespiratory: respirations unlabored on room airGastrointestinal: soft, non-distended, non-tender, no costovertebral angle tendernessMusculoskeletal: no clubbing, cyanosis or edemaSkin: no rashesNeurologic: no focal deficitsPsychiatric: appropriate mood and affectHematologic: no bruising Diagnosis, Assessment Plan Diagnosis, Assessment PlanFree Text A P:Brennan Ahn is a 82-year-old status post CABG 07/13/2022, 3-month history of dysuria, no other LUTS. Ua from 08/21/22 negative for nitrites. Dysuria is refractory to pyridium - Straight cath Ucx- BS PVR, discussed with nursing to notify me of result- Continue pyridium- Pending evaluatiion, patient may benefit from outpatient cystoscopy Aubrey Keith MD at 0827 RPT #:[id number] OF [id number]: 21:00G.[id number] for patient vrljYMNKTKKJHESOJF2109-54-06N16:27:29 [facility] 2022-08-24 08:12:00 [id number] NIQndpMcmpqb6xJV1W79hToKAzUVs+lKZmpVQ [id number]:12:00 [facility] Progress NoteREPORT#:[id number] REPORT STATUS: SignedDATE:08/24/22 TIME: 0812 PATIENT: BRENNAN AHN UNIT #: [id number]#: [id number] [address] AGE: 82 SEX: M ATTEND: Arthur Fuenets AUTHOR: Arthur Fuentes MD * ALL edits or amendments must be made on the electronic/computer document * SubjectiveChief complaint:Rehab follow-upPatient had another fall, did not hit headComplains of left rib painNADEating well+ BMDenies MORA/N/V/D/CP14 systems reviewed and neg. except that above.History of present illness:82-year-old male with PMH of Alzheimer's dementia, CKD, HTN, atrial fibrillation, history of SVT/ablation who was transferred to [facility] ED after being foundto have multivessel coronary artery disease. Patient initially with was at homeand developed chest pains. [facility] which revealed multivessel CAD. Patient evaluated here by cardiothoracic surgery and underwent CABG x5 on 08/10. Patient with postoperative anemia and significant impairment in mobility. Pt is progressing slowly with therapy d/t weakness, self care deficit, decreased endurance and balance, and decreased functional mobility. Pt requiring acute inpt rehab for multidisciplinary team of nursing, therapy, and physicians. Pt is willing and able to participate in 3 hr/day inpt rehab to d/c home safely. Daughter states pt's prior level of function was independent. Currently patient has generalizedweakness. He lives by himself in a one-step up house. He denies any shortness of breath, nausea, vomiting, fever, chills. Denies chest pain. He is complaining of some constipation. He tells me that is in the process of sellinghis home. Preadmission screen was completed. Patient admitted to IRF. Objective GeneralVS:Vital Signs: Date Time Temp Pulse Resp B/P B/P Pulse O2 O2 Flow FiO2 Mean Ox Delivery Rate 08/24 0647 97.5 72 18 132/62 85.3 97 08/24 0512 98.6 81 16 132/67 88.8 96 Room air 08/24 0239 95 Room air 08/24 0025 97.9 81 16 120/61 81.1 95 Room air 08/23 2151 94 Room air 08/23 1907 98.2 72 16 126/68 87.4 94 Room air 08/23 1722 62 105/53 70.2 08/23 1540 97.9 85 20 137/80 99.4 97 08/23 1040 98.6 76 18 89/50 62.9 96 08/23 0913 58 118/65 82.5 98 PATIENT WEIGHT: Weight (lb): 221Weight (oz): 9.03Weight (kg): 100.500 Medications:Active Meds + DC'd Last 24 HrsMetoprolol Tartrate (LOPRESSOR) 12.5 MG Q12HR PO Midodrine (PROAMATINE) 5 MG TID AC PO Duloxetine HCl (CYMBALTA) 60 MG BEDTIME PO Ezetimibe (ZETIA) 10 MG DAILY PO Amiodarone HCl (CORDARONE) 200 MG BID PO Aspirin (ASPIRIN) 81 MG DAILY PO Clopidogrel Bisulfate (Plavix) 75 MG DAILY PO Cyanocobalamin (Vitamin B-12 500 mcg tab) 500 MCG DAILY PO Ferrous Sulfate (FERROUS SULFATE) 325 MG DAILY PO Polyethylene Glycol (MIRALAX) 17 GM DAILY PO Pantoprazole (PROTONIX) 40 MG DAILY@0600 PO Budesonide (PULMICORT RESPULES) 0.5 MG RTBID INH Formoterol Fumarate (PERFOROMIST) 20 MCG RTBID NEB Docusate Sodium (COLACE) 100 MG BID PO Ipratropium [place] (ATROVENT) 500 MCG RTQ6H INH Sennosides (Senna Lax 8.6 MG TABLET) 17.2 MG BEDTIME PO Hydralazine HCl (APRESOLINE) 10 MG Q6H PRN PRN IV Acetaminophen (TYLENOL) 650 MG Q4H PRN PRN PO Ipratropium [place] (ATROVENT) 500 MCG RTQ2H PRN PRN INH Melatonin (Melatonin) 6 MG BEDTIME PRN PO Ondansetron HCl (ZOFRAN ODT) 4 MG TID PRN PRN SL Physical ExamGeneral appearance: alert, awake, no acute distressPsych: alert, normal affect, oriented x 3HEENT: anicteric, mucosal membranes moist, pupils reactive to light, sclera clearNeck: non-tender, supple, no JVDCardiovascular: irregular rhythm, S1/S2, cap refill wnl, pulses intactRespiratory: diminished breath sounds, on oxygen, aerating wellAbdomen: bowel sounds present, non-distended, soft, non-tenderSkin: dry, normal temperature, no rash, bruising R thigh, mild L thigh, BUE, R hand Sl tender/edema, sternum incision RSH site CDI R elbow abrasionMusculoskeletal - general: Musculoskeletal - general: OA changes, normal tone, no swelling, Moves all 4 exts AG, calves NT, no cords, Homans negNeuro/TEAROOM HOST/HOSTESS: alert, oriented X 3, CNII-XII intact, normal speech, no motor deficits, no sensory deficits ResultsFindings/Data:Laboratory Tests 08/21 08/22 08/23 1200 0700 0700 Chemistry Sodium (134 - 147 mEq/L) 137 138 Potassium (3.4 - 5.0 mEq/L) 4.2 4.2 Chloride (100 - 108 mEq/L) 100 100 Carbon Dioxide (21 - 33 mEq/l) 31 30 Anion Gap (0 - 20) 10 12 BUN (7 - 18 mg/dL) 35 30 Creatinine (0.6 - 1.3 mg/dL) 2.2 2.2 Glomerular Filtr Rate (70 - 80) 29.5 29.5 Glucose (70 - 110 mg/dL) 100 93 Calcium (8.0 - 10.5 mg/dL) 9.2 9.4 Ionized Calcium Suzanna (1.09 - 1.30 MMOL/L) 1.14 Magnesium (1.80 - 2.40 mg/dL) 1.89 Hematology WBC (4.5 - 11.0 x10 3/uL) 10.4 RBC (4.00 - 5.60 x10 6/uL) 3.20 Hgb (12.5 - 16.9 g/dL) 9.7 Hct (37.5 - 50.7 %) 30.4 MCV (81.0 - 99.0 fL) 95.0 MCH (27.0 - 33.0 pg) 30.3 MCHC (33.0 - 37.0 g/dL) 31.9 RDW (11.5 - 14.5 %) 14.6 Plt Count (150 - 400 x10 3/uL) 489 MPV (7.0 - 9.0 fL) 9.3 Neut % (Auto) (56.0 - 77.0 %) 77.1 Lymph % (Auto) (14.0 - 32.0 %) 8.0 [place] % (Auto) (4.8 - 9.0 %) 6.8 Eos % (Auto) (0.3 - 3.7 %) 6.5 Baso % (Auto) (0.0 - 2.0 %) 0.8 Neut # (Auto) (2.0 - 7.6 x10 3/uL) 8.00 Lymph # (Auto) (1.0 - 3.8 x10 3/uL) 0.83 [place] # (Auto) (0.1 - 0.8 x10 3/uL) 0.71 Eos # (Auto) (0.0 - 0.2 x10 3/uL) 0.67 Baso # (Auto) (0.0 - 0.2 x10 3/uL) 0.08 Abs Immat Gran (auto) (0.00 - 0.03 x10 3/uL) 0.08 Add Manual Diff NO Immature Gran % (0.0 - 2.0 %) 0.8 Nucleated RBC % (0 - 0 %) 0.0 Nucleated RBCs # (Man) (0.0 - 0.1 x10 3/uL) 0.00 Urines Urine Color (YEL/STRAW) YELLOW Urine Appearance (CLEAR) CLEAR Urine pH (5.0 - 7.0) 5.0 Ur Specific [place] (1.005 - 1.030) 1.011 Urine Protein (NEGATIVE) NEGATIVE Urine Glucose (UA) (NEGATIVE) NEGATIVE Urine Ketones (NEGATIVE) NEGATIVE Urine Blood (NEGATIVE) NEGATIVE Urine Nitrite (NEGATIVE) NEGATIVE Urine Bilirubin (NEGATIVE) NEGATIVE Urine Urobilinogen (0.2 - 1.0 mg/dL) 0.2 Ur Leukocyte Esterase (NEGATIVE) NEGATIVE Urine RBC (0 - 3 RBC/HPF) 0-3 Urine WBC (0 - 3 WBC/HPF) 0-3 Ur Squamous Epith Cells (NONE SEEN /HPF) 0-5 Urine Bacteria (NONE SEEN /HPF) TRACE Hyaline Casts (NONE SEEN /LPF) 6-10 Urine Mucus (NONE SEEN /LPF) TRACE Radiology data:Recent Impressions:RADIOLOGY - XR SHOULDER 2 + V RT 08/22 1525 Report Impression - Status: SIGNED Entered: 08/22/2022 1752 IMPRESSION: No acute findings. Impression By: [email or web address] - Ramakrishna Dhaliwal M.D.CAT SCAN - CT HEAD/BRAIN W/O CONT 08/22 1546 Report Impression - Status: SIGNED Entered: 08/22/2022 1658 IMPRESSION: No acute intracranial abnormality, as above. Impression By: [email or web address] - Yosi Padron M.D.RADIOLOGY - XR ELBOW 2 VIEWS RT 08/23 1840 Report Impression - Status: SIGNED Entered: 08/23/2022 1923 IMPRESSION: No fracture or dislocation. Impression By: [email or web address] - Madi Pope M.D. Diagnosis, Assessment PlanProblem List/A P: 1. CAD (coronary artery disease) 2. Afib 3. HTN (hypertension) 4. S/P CABG x 5 5. Impaired functional mobility, balance, gait, and endurance Free Text A P:Assessment:Multivessel CAD3/9: S/p CABG x5-Dr. Lind-fib s/p a LAAEndoscopic RGSV harvest08/16: Echo-EF 50-54%, small pericardial effusionSmall bilateral pleural effusions.Muscle weakness Unsteady gaitAlzheimer's dementia (as per family), poor memoryPostoperative anemiaAKI on CKDHTNImpairment in self-care, ADLs and functional mobility Plan:-Continue PT/OT-Case management for safe discharge planning.-Decubitus prevention-protective hydrating lotion-turn every 2 xfqhy-umotxno-Ggamr program-MiraLAX, senna-Nutrition, monitor the patient's p.o. intake, check albumin 3.5 and prealbumin 14.3, dietary consult, protein supplements. Cardiac diet. BMI above normal parameters. Working with dietary, follow up with PCP-Strict fall and safety precaution-DVT baphxvbhjfn-QHYx-QJ prophylaxis on Protonix-CAD on Plavix and aspirin, intolerant to statins-Pulmonary toilet frequent I-S, nebs, wean O2-Early mobilization-OOB to chair-Work on bed mobility, transfer training, ADLs, pre-gait and gait exercises as tolerable. -Increase endurance and strength-Pain management-Postop care as per CVS-Monitor telemetry-Cardiology on case-LADARIUS as per nephrology-Dementia/confusion-Higher level of nursing care and monitoring for safety-Strict sternal precautions-patient with poor carryover of sternal precautions-Monitor sites of bruising and right hand pain-from previous phlebotomy sites-nosigns of infection-Labs reviewed-WBC normal, hemoglobin 9.1, 8.9, 9.7 platelets stable, creatinine1.9, 2.2, magnesium normal, HgbA1C 5.2. -Anemia-vitamin B12 and ferrous sulfate-Orthostasis/dizziness-diureti cs reduced-midodrine added-use ENZO hose and abdominal binder when out of bed-monitor. BP stable. Medications being monitored by cardiology-Removed sutures x2 from lower chest on 08/25-Requires verbal cues to maintain sternal precautions with jaeymzoei-Sytfvf-to with PCP for dementia yithlohjll-Xsmsqol-TC negative-continue with Rxwxduae-qabntht-0/21: Fall: Seen by trauma team after fall. CT head negative. Right shoulder x-ray negative for fracture. Patient patient appears to be at his baseline-08/24: Fall-no head injury-left rib pain-check rib films-Lidoderm patch-RN called me this afternoon and said pt's R elbow hurting more. 2 view R elbow x ray-no acute fracture-Lidoderm patch-pain management-Patient making slow progress with functional goes due to impulsivity, poor memory and cognitive deficits. Poor carryover with sternal precautions.-Advance therapies as tolerable -1:1 sitter due to multiple falls Progress: PT REQUIRES REPETITION WITH STERNAL PRECAUTION CUES NON COMPLIANT,MIN A WITH STANDING DUE TO PT BEING NON COMPLIANT WITH PRECAUTIONS.ASSIST WITH THREADING PANTS AND DON OF SHOES AND AB BINDER.WCMOBILITY AROUND UNIT SLOW MOVING 5O'X3 REQUIRES SAFETY CUES,DYNAMIC STANDING ACTIVITIES WORKING STANDING TOLERANCE PTSTANDING FOR 60-75 SEC AT TIME.GAIT TRAINING W/RW MAX A TODAY PATIENT UNSAFE WITH RW/UNSTEADY LIFTING RW AND TURNING IT WHEN LEAVING GYM LOSING BALANCE ASSIST WITH STEADYING. PM RPlease see team note.Plan and goals discussed with the patient. I agree with the teams findingELOS: [08/29]DC-SNF placementDME-bedside commode, rolling walker Total time was 34 minutes > 50% with patient performing physical examination, discussing with patient about fall precaustions, discharge plans, sternal precautions, plan of care, goals, therapies, progress, medications, labs. All questions answeredOrders: Procedure Date/time Status XR RIBS UNI 2 V LT 08/24 1259 Active Case Management Consult 08/24 1149 Active 1:1 Sitter 08/24 1127 Active NEB TREATMENT SUBSQ 08/24 0241 Active NEB TREATMENT SUBSQ 08/22 2359 Complete NEB TREATMENT SUBSQ 08/21 2359 Complete Consultants: cardiology, cardiovascular surgery, hospitalist, nephrologyRehab attestation:Face to face exam completed. Treatment plan discussed with patient. Meets continued stay criteria. Agree with interdisciplinary treatment plan. at 1304 [facility] #:[id number] OF REPORTPRProgress [id number]:12:[id number] for patient [id number]:05:19 [facility] 2022-08-23 18:33:00 [id number] [id number]mM [id number]:33:00 [facility] ([facility])Nephrology Progress NoteREPORT#:[id number] REPORT STATUS: SignedDATE:08/23/22 TIME: 1832 PATIENT: BRENNAN AHN UNIT #: [id number]#: [id number] ROOM[facility]BED: [facility] [place]-2DOB: [birth year] AGE: 82 SEX: M ATTEND: Arthur Fuentes [facility] AUTHOR: Maura Terrazas MD * ALL edits or amendments must be made on the electronic/computer document * SubjectiveChief complaint:chest painHPI:82-year-old male known to have hypertension, atrial fibrillation, supraventricular tachycardia with requiring ablation presenting with multivesselcardiovascular disease and he underwent CABG 07/13/2022. He endorsed having kidney issues in the past and seeing a specialist managers at [place] but his kidney function had been stable since then.He developed oliguria,LADARIUS and hypervolemia post CABG but had now improved and was transferred to rehab. 08/23Patient appearing comfortable,denying all systemic review including dizziness. Objective GeneralVS/I O:Vital Signs: Date Time Temp Pulse Resp B/P B/P Pulse O2 O2 Flow FiO2 Mean Ox Delivery Rate 08/23 1722 62 105/53 70.2 08/23 1540 36.6 85 20 137/80 99.4 97 08/23 1040 37.0 76 18 89/50 62.9 96 08/23 0913 58 118/65 82.5 98 08/23 0809 83 135/71 92.1 08/23 0730 98 Room air 08/23 0708 36.8 68 19 138/69 92.2 97 08/23 0515 36.3 75 16 130/86 100.5 95 Room air 08/23 0237 98 Room air 08/22 2342 36.9 63 16 118/67 84.1 94 Room air 08/22 1948 94 Room air 08/22 1925 36.7 77 18 126/64 84.6 97 24 hour I O ending at 0700: 08/23 0700 08/22 1900 Intake Total Output Total 200 339 Balance -200 -339 Number 0 0 Incontinent Voids Number Voids 1 2 Output, Urine 200 339 PATIENT WEIGHT: Weight (lb): 221Weight (oz): 9.03Weight (kg): 100.500 Physical ExamGeneral appearance: alert, awake, orientedHead/eyes: atraumatic, clear cornea, EOMIENT: moist mucous membranes, normal noseNeck: no JVD, no masses or swellingCardiovascular: normal heart sounds, regular rate and rhythmRespiratory: aerating well, clear to auscultationAbdomen: non-tender, softGenitourinary: no bladder distention, no flank painExtremities: pitting edema, no gangrene, no swelling Diagnosis, Assessment PlanFree Text A P:82-year-old male known to have hypertension, atrial fibrillation, supraventricular tachycardia with requiring ablation presenting with multivesselcardiovascular disease and he underwent CABG 07/13/2022. Transferred to rehab for therapy. Nephrology following for: 1. Acute kidney injury: Most likely prerenal as he recently had surgery. Renal function Improved.Plan to monitor. 2. Hypervolemia:Patient at high risk of volume overload so would reccommend lasix PO, lasix held due to hypotension .Volume improved. 3. Electrolytes: His electrolytes appear to be in normal range plan is to monitor and replace as needed. 4. HTN:Controlled with current medications.Plan to continue same.He develops orthostasis so medication doses minimised. 08/21 1. Acute kidney injury: Most likely prerenal as he recently had surgery. Resolving with better hemodynamics.His kidney function was stable plan was to monitor closely. 2. Hypervolemia:Patient at high risk of volume overload so would reccommend lasix PO .He recently developed orthostasis so dose reduced to 40 PO daily. Plan to increase lasix to Q12H and add midodrine for hypotension,patient is not dizzy anymore and he was tolerating Lasix at current dose. Plan was to monitor input and output closely. 3. Electrolytes: His electrolytes appear to be in normal range plan is to monitor and replace as needed. 4. HTN:Currently he develops orthostatic hypotension so not on any medications besides lasix and metoprolol. He was requiring midodrine to keep his blood pressures above 100 systolic. 08/22 1. Acute kidney injury: Most likely prerenal as he recently had surgery. Renal function Improved.Plan to monitor. 2. Hypervolemia:Patient at high risk of volume overload so would reccommend lasix PO, lasix held due to hypotension .Volume improved. 3. Electrolytes: His electrolytes appear to be in normal range plan is to monitor and replace as needed. 4. Hypotension: Midodrine dose increased .Plan to monitor. 08/23 1. LADARIUS on CKD: Patient with stable renal function. Plan to keepMAP>65 and avoidnephrotoxic agents. He was following specialist managers in [place] so plan to refer to his specialist managers post discharge. 2. Hypervolemia:Patient at high risk of volume overload so would reccommend lasix PO, lasix held due to hypotension .Volume improving slowly. 3. Electrolytes: His electrolytes appear to be in normal range plan is to monitor and replace as needed. 4. Hypotension: Midodrine dose increased .Plan to monitor. Consultants: cardiology, cardiovascular surgery, hospitalist, nephrology at 1843 RPT #:[id number] OF REPORTPRProgress [id number]:33:00G.[id number] for patient afraTUJHBKKIPOIWSE7456-53-65E96:44:03 [facility] 2022-08-23 15:02:00 [id number] pE5xreSc84mBxDdcvylsblcjYOih3uxyo8tXA Ld8421-10-18P43:02:00 [facility])Internal Medicine Prog. NoteREPORT#:[id number] REPORT STATUS: SignedDATE:08/23/22 TIME: 1502 PATIENT: BRENNAN AHN UNIT #: [id number]#: [id number] [address] [birth year] AGE: 82 SEX: M ATTEND: Arthur Fuentes [facility] AUTHOR: Devin Fox DO * ALL edits or amendments must be made on the electronic/computer document * SubjectiveChief complaint:pt had a fall yesterday. c/o R elbow pain Review of SystemsAll systems rev neg: except as marked Objective GeneralVS/I O:Vital Signs Date Temp Pulse Resp B/P B/P Mean Pulse Ox FiO2 08/22-08/23 97.3-98.6 58-83 16-19 89-157/50-86 62.9-101.8 94-98 21 Last Documented: Result Date Time Pulse Ox 96 08/23 1040 B/P 89/50 08/23 1040 B/P Mean 62.9 08/23 1040 Temp 98.6 08/23 1040 Pulse 76 08/23 1040 Resp 18 08/23 1040 O2 Delivery Room air 08/23 0730 FiO2 21 08/22 1948 24 hour I O ending at 0700: 08/23 0700 08/22 1900 Intake Total Output Total 200 339 Balance -200 -339 Number 0 0 Incontinent Voids Number Voids 1 2 Output, Urine 200 339 PATIENT WEIGHT: Weight (lb): 221Weight (oz): 9.03Weight (kg): 100.500 Medications:Active Meds + DC'd Last 24 HrsMetoprolol Tartrate (LOPRESSOR) 12.5 MG Q12HR PO Midodrine (PROAMATINE) 5 MG TID AC PO Phenazopyridine HCl (PYRIDIUM) 200 MG BID MEALS PO (DC) Duloxetine HCl (CYMBALTA) 60 MG BEDTIME PO Ezetimibe (ZETIA) 10 MG DAILY PO Amiodarone HCl (CORDARONE) 200 MG BID PO Aspirin (ASPIRIN) 81 MG DAILY PO Clopidogrel Bisulfate (Plavix) 75 MG DAILY PO Cyanocobalamin (Vitamin B-12 500 mcg tab) 500 MCG DAILY PO Ferrous Sulfate (FERROUS SULFATE) 325 MG DAILY PO Polyethylene Glycol (MIRALAX) 17 GM DAILY PO Pantoprazole (PROTONIX) 40 MG DAILY@0600 PO Budesonide (PULMICORT RESPULES) 0.5 MG RTBID INH Formoterol Fumarate (PERFOROMIST) 20 MCG RTBID NEB Docusate Sodium (COLACE) 100 MG BID PO Ipratropium [place] (ATROVENT) 500 MCG RTQ6H INH Sennosides (Senna Lax 8.6 MG TABLET) 17.2 MG BEDTIME PO Hydralazine HCl (APRESOLINE) 10 MG Q6H PRN PRN IV Acetaminophen (TYLENOL) 650 MG Q4H PRN PRN PO Ipratropium [place] (ATROVENT) 500 MCG RTQ2H PRN PRN INH Melatonin (Melatonin) 6 MG BEDTIME PRN PO Ondansetron HCl (ZOFRAN ODT) 4 MG TID PRN PRN SL Physical ExamGeneral appearance: alert, awake, orientedHead/Eyes: EOMI, PERRLANeck: non-tender, no JVDCardiovascular: normal heart sounds, regular rate rhythmRespiratory: aerating well, clear to auscultationAbdomen: non-tender, normal bowel soundsExtremities: Extremities: no cyanosis, no edemaNeuro/TEAROOM HOST/HOSTESS: alert, oriented x 3, CNII-XII intact ResultsFindings/Data:Laboratory Tests 08/23/22 07:[Embedded Image Not Available]Laboratory Tests 08/23 0700 Chemistry Sodium (134 - 147 mEq/L) 138 Potassium (3.4 - 5.0 mEq/L) 4.2 Chloride (100 - 108 mEq/L) 100 Carbon Dioxide (21 - 33 mEq/l) 30 Anion Gap (0 - 20) 12 BUN (7 - 18 mg/dL) 30 H Creatinine (0.6 - 1.3 mg/dL) 2.2 H Glomerular Filtr Rate (70 - 80) 29.5 L Glucose (70 - 110 mg/dL) 93 Calcium (8.0 - 10.5 mg/dL) 9.4 Magnesium (1.80 - 2.40 mg/dL) 1.89 Laboratory Tests 08/23 0700 Hematology WBC (4.5 - 11.0 x10 3/uL) 10.4 RBC (4.00 - 5.60 x10 6/uL) 3.20 L Hgb (12.5 - 16.9 g/dL) 9.7 L Hct (37.5 - 50.7 %) 30.4 L MCV (81.0 - 99.0 fL) 95.0 MCH (27.0 - 33.0 pg) 30.3 MCHC (33.0 - 37.0 g/dL) 31.9 L RDW (11.5 - 14.5 %) 14.6 H Plt Count (150 - 400 x10 3/uL) 489 H MPV (7.0 - 9.0 fL) 9.3 H Neut % (Auto) (56.0 - 77.0 %) 77.1 H Lymph % (Auto) (14.0 - 32.0 %) 8.0 L [place] % (Auto) (4.8 - 9.0 %) 6.8 Eos % (Auto) (0.3 - 3.7 %) 6.5 H Baso % (Auto) (0.0 - 2.0 %) 0.8 Neut # (Auto) (2.0 - 7.6 x10 3/uL) 8.00 H Lymph # (Auto) (1.0 - 3.8 x10 3/uL) 0.83 L [place] # (Auto) (0.1 - 0.8 x10 3/uL) 0.71 Eos # (Auto) (0.0 - 0.2 x10 3/uL) 0.67 H Baso # (Auto) (0.0 - 0.2 x10 3/uL) 0.08 Abs Immat Gran (auto) (0.00 - 0.03 x10 3/uL) 0.08 H Add Manual Diff NO Immature Gran % (0.0 - 2.0 %) 0.8 Nucleated RBC % (0 - 0 %) 0.0 Nucleated RBCs # (Man) (0.0 - 0.1 x10 3/uL) 0.00 Radiology data:Recent Impressions:RADIOLOGY - XR SHOULDER 2 + V RT 08/22 1525 Report Impression - Status: SIGNED Entered: 08/22/2022 1752 IMPRESSION: No acute findings. Impression By: [email or web address] Akash Dhaliwal M.D.CAT SCAN - CT HEAD/BRAIN W/O CONT 08/22 1546 Report Impression - Status: SIGNED Entered: 08/22/2022 1658 IMPRESSION: No acute intracranial abnormality, as above. Impression By: [email or web address] - Yosi Padron M.D. Diagnosis, Assessment PlanHospital course to date:82-year-old male with past medical history of hypertension, atrial fibrillation,supraventricular tachycardia status post ablation who was admitted with reports of multivessel coronary artery disease found on a cardiac catheterization done at [facility]. Patient was transferred to [facility] for CABG. He underwent QPEVm8q. 1. Coronary artery disease-Status post CABG x5, ALAA, PVI-Continue metoprolol, Plavix, aspirin 2. Atrial fibrillation-Continue po amiodarone for rate control- taper AMIO per cards-Continue metoprolol-Monitor and review telemetry 3. Debility-.-PT/OT- PMR- Inpt Rehab 4. ARF- Trend cr 1.3-1.9-2.2-2.0-1.9-2.2- post op, post lasix therefore likely pre-renal- baseline CKD is suspected- nephro consulted 5. anemia- acute, post op expecteed- monitor and transfuse if hg <7- cont po Iron- Trend Hg 9.1 6. Delirium-Likely due to sundowning-Monitor closely-Patient is neurologically intact 7. FALL- ct head neg- R shoulder Xr neg- R elbow pain- mild- pain meds prn 8. Dysuria- UA neg- on pyridium prn- consider Urologist consult d/w RN and Pt in detailstotal time spent 35mins d/w Consultants: cardiology, cardiovascular surgery, hospitalist, nephrology Quality: Gen Med Crit Care Current MedicationsCurrent medication review:I attest that the foregoing medication list in the medical record is true, accurate, and complete to the best of my knowledge. Advanced Care Plan 65 or OlderDiscussed with: patientDiscussion included: code status at 0917 RPT #:[id number] OF REPORTPRProgress [id number]:02:00G.[id number] for patient [id number]:17:53 [facility] 2022-08-23 10:18:00 [id number] v/l9Jzh+MTDQZlux4jASpXzO8JOe7rnNIsdNp [id number]:18:00 [facility] ([facility]ITALCardiology Progress NoteREPORT#:[id number] REPORT STATUS: SignedDATE:08/23/22 TIME: 1018 PATIENT: BRENNAN AHN UNIT #: [id number]#: [id number] ROOM/BED: 503-2DOB: [birth year] AGE: 82 SEX: M ATTEND: Arthur Fuentes [facility] AUTHOR: Catrina Shetty AGACNP * ALL edits or amendments must be made on the electronic/computer document * SubjectiveComments:patient fell yesterday afternoon. c/o right elbow pain Objective GeneralVS/I O:.24 hour I O ending at 0700: 08/23 0700 08/22 1900 Intake Total Output Total 200 339 Balance -200 -339 Number 0 0 Incontinent Voids Number Voids 1 2 Output, Urine 200 339 Vital Signs: Date Time Temp Pulse Resp B/P B/P Pulse O2 O2 Flow FiO2 Mean Ox Delivery Rate 08/23 0809 83 135/71 92.1 08/23 0730 98 Room air 08/23 0708 36.8 68 19 138/69 92.2 97 08/23 0515 36.3 75 16 130/86 100.5 95 Room air 08/23 0237 98 Room air 08/22 2342 36.9 63 16 118/67 84.1 94 Room air 08/22 1948 94 Room air 21 08/22 1925 36.7 77 18 126/64 84.6 97 08/22 1622 36.3 72 18 147/70 95.7 94 Room air 08/22 1522 36.6 75 18 157/74 101.8 97 Room air 08/22 1128 36.9 72 18 132/71 91.2 97 Room air 08/22 1024 36.4 82 103/65 77.4 96 Room air PATIENT WEIGHT: Weight (lb): 221Weight (oz): 9.03Weight (kg): 100.500 Medications:Active Meds + DC'd Last 24 HrsMetoprolol Tartrate (LOPRESSOR) 12.5 MG Q12HR PO Midodrine (PROAMATINE) 5 MG TID AC PO Phenazopyridine HCl (PYRIDIUM) 200 MG BID MEALS PO (DC) Duloxetine HCl (CYMBALTA) 60 MG BEDTIME PO Ezetimibe (ZETIA) 10 MG DAILY PO Amiodarone HCl (CORDARONE) 200 MG BID PO Aspirin (ASPIRIN) 81 MG DAILY PO Clopidogrel Bisulfate (Plavix) 75 MG DAILY PO Cyanocobalamin (Vitamin B-12 500 mcg tab) 500 MCG DAILY PO Ferrous Sulfate (FERROUS SULFATE) 325 MG DAILY PO Polyethylene Glycol (MIRALAX) 17 GM DAILY PO Pantoprazole (PROTONIX) 40 MG DAILY@0600 PO Budesonide (PULMICORT RESPULES) 0.5 MG RTBID INH Formoterol Fumarate (PERFOROMIST) 20 MCG RTBID NEB Docusate Sodium (COLACE) 100 MG BID PO Ipratropium [place] (ATROVENT) 500 MCG RTQ6H INH Sennosides (Senna Lax 8.6 MG TABLET) 17.2 MG BEDTIME PO Hydralazine HCl (APRESOLINE) 10 MG Q6H PRN PRN IV Acetaminophen (TYLENOL) 650 MG Q4H PRN PRN PO Ipratropium [place] (ATROVENT) 500 MCG RTQ2H PRN PRN INH Melatonin (Melatonin) 6 MG BEDTIME PRN PO Ondansetron HCl (ZOFRAN ODT) 4 MG TID PRN PRN SL Physical ExamGeneral appearance: chronically ill appearing, frail, alert, awake, no acute distressNeck: non-tender, no JVDCardiovascular: CV assessment: irregularly irregularRespiratory: decreased breath sounds, no distressAbdomen: soft, non-tender, normal bowel sounds, no distentionGenitourinary: no flank pain, no urinary catheterLower extremity: LE assessment: edema (trace edema RLE - harvest site), no edemaMusculoskeletal: normal inspectionNeuro/TEAROOM HOST/HOSTESS: alertSkin: dryPsychiatry: normal affect, normal mood ResultsFindings/Data:Laboratory Tests 08/23 0700 Chemistry Sodium (134 - 147 mEq/L) 138 Potassium (3.4 - 5.0 mEq/L) 4.2 Chloride (100 - 108 mEq/L) 100 Carbon Dioxide (21 - 33 mEq/l) 30 Anion Gap (0 - 20) 12 BUN (7 - 18 mg/dL) 30 H Creatinine (0.6 - 1.3 mg/dL) 2.2 H Glomerular Filtr Rate (70 - 80) 29.5 L Glucose (70 - 110 mg/dL) 93 Calcium (8.0 - 10.5 mg/dL) 9.4 Magnesium (1.80 - 2.40 mg/dL) 1.89 Laboratory Tests 08/23 0700 Hematology WBC (4.5 - 11.0 x10 3/uL) 10.4 RBC (4.00 - 5.60 x10 6/uL) 3.20 L Hgb (12.5 - 16.9 g/dL) 9.7 L Hct (37.5 - 50.7 %) 30.4 L MCV (81.0 - 99.0 fL) 95.0 MCH (27.0 - 33.0 pg) 30.3 MCHC (33.0 - 37.0 g/dL) 31.9 L RDW (11.5 - 14.5 %) 14.6 H Plt Count (150 - 400 x10 3/uL) 489 H MPV (7.0 - 9.0 fL) 9.3 H Neut % (Auto) (56.0 - 77.0 %) 77.1 H Lymph % (Auto) (14.0 - 32.0 %) 8.0 L [place] % (Auto) (4.8 - 9.0 %) 6.8 Eos % (Auto) (0.3 - 3.7 %) 6.5 H Baso % (Auto) (0.0 - 2.0 %) 0.8 Neut # (Auto) (2.0 - 7.6 x10 3/uL) 8.00 H Lymph # (Auto) (1.0 - 3.8 x10 3/uL) 0.83 L [place] # (Auto) (0.1 - 0.8 x10 3/uL) 0.71 Eos # (Auto) (0.0 - 0.2 x10 3/uL) 0.67 H Baso # (Auto) (0.0 - 0.2 x10 3/uL) 0.08 Abs Immat Gran (auto) (0.00 - 0.03 x10 3/uL) 0.08 H Add Manual Diff NO Immature Gran % (0.0 - 2.0 %) 0.8 Nucleated RBC % (0 - 0 %) 0.0 Nucleated RBCs # (Man) (0.0 - 0.1 x10 3/uL) 0.00 Laboratory Tests 08/23 0700 Chemistry Magnesium (1.80 - 2.40 mg/dL) 1.89 Radiology data:Recent Impressions:RADIOLOGY - XR SHOULDER 2 + V RT 08/22 1525 Report Impression - Status: SIGNED Entered: 08/22/2022 1752 IMPRESSION: No acute findings. Impression By: [email or web address] - Ramakrishna Dhaliwal M.D.CAT SCAN - CT HEAD/BRAIN W/O CONT 08/22 1546 Report Impression - Status: SIGNED Entered: 08/22/2022 1658 IMPRESSION: No acute intracranial abnormality, as above. Impression By: [email or web address] - Yosi Padron M.D. Results: labs reviewed, vital signs reviewed, rhythm personally rev'dTelemetry Interpretation:atrial fib witn controlled rate Diagnosis, Assessment PlanPlan discussed with: patient, nurse Free Text DxA P NotesFree Text DxA P Notes:82 YO male with MHX of Afib, HTN, HLD, CAD who is s/p 5 vessel CABG and PVI and ALAA. The patient is transferred to [facility] for inpatient rehabilitation. We are consulted for continuity of cardiac-related care. 1. CAD s/p CABG x 5 (NGUYEN-LAD, SVG-Olga Lidia, SVG-OM, SVG-LPLA, SVG-PDA) continue asa, BB, plavix, Zetiaecho 08/12- LVEF 50-54%, left pleural effusionintolerant of statin, will consider nonstatin med such as Repatha or Nexletol outpatientLE edema subsided , off PO lasix d/t orthostatic hypotension 2. A-fib: Paroxysmal - rate controlleds/p PVI and ARISTEO amputationamiodarone 200 mg BID - taper dose prior to dischargedecrease metoprolol to 12.5 mg BID d/t soft blood pressureno need for AC since left atrial appendage was removed during CABG 3. HTN BP Supported by midodrinecontinue 5 mg TID before meals for orthostatic hypotension, hold for SBP above 120 mmHgdecrease metoprolol to 12.5 mg BID 4. AKInephrology following 5. Dizziness 2/2 orthostatic hypotensionpositive orthostatic drop in SBP >30 mmHgcontinue midodrine to 5 mg TIDcompression stocking and abdominal binder before OOB Taken off Lasix, will re-assess need for diuretic on a daily basis 6. s/p Fall 08/22CT head no acute findingc/o R Elbow pain -defer workup to primary or rehab team at 1427 at 1402 RPT #:[id number] OF REPORTPRProgress [id number]:18:00G.[id number] for patient orwpQJMUWNVHCJKYYD9470-97-70U85:27:24 [facility] 2022-08-23 06:50:00 [id number]:50:00 [facility] ([facility])Rehab Progress NoteREPORT#:[id number] REPORT STATUS: SignedDATE:08/23/22 TIME: 0650 PATIENT: BRENNAN AHN UNIT #: [id number]#: [id number] [address] [birth year] AGE: 82 SEX: M ATTEND: Arthur Fuentes [facility] AUTHOR: Florentino Jimenez * ALL edits or amendments must be made on the electronic/computer document * Florentino Jimenez 08/23/22 0650:SubjectiveChief complaint:Rehab follow-upEvents noted. Patient had fall in room yesterdayLanded on right shoulder and hit head. No LOCNADEating well+ BMDenies MORA/N/V/D/CP14 systems reviewed and neg. except that above.History of present illness:82-year-old male with PMH of Alzheimer's dementia, CKD, HTN, atrial fibrillation, history of SVT/ablation who was transferred to [facility] ED after being foundto have multivessel coronary artery disease. Patient initially with was at homeand developed chest pains. He was brought [facility] andunderwent left heart cath which revealed multivessel CAD. Patient evaluated here by cardiothoracic surgery and underwent CABG x5 on 08/10. Patient with postoperative anemia and significant impairment in mobility. Pt is progressing slowly with therapy d/t weakness, self care deficit, decreased endurance and balance, and decreased functional mobility. Pt requiring acute inpt rehab for multidisciplinary team of nursing, therapy, and physicians. Pt is willing and able to participate in 3 hr/day inpt rehab to d/c home safely. Daughter states pt's prior level of function was independent. Currently patient has generalizedweakness. He lives by himself in a one-step up house. He denies any shortness of breath, nausea, vomiting, fever, chills. Denies chest pain. He is complaining of some constipation. He tells me that is in the process of sellinghis home. Preadmission screen was completed. Patient admitted to IRF. Objective GeneralVS:Vital Signs: Date Time Temp Pulse Resp B/P B/P Pulse O2 O2 Flow FiO2 Mean Ox Delivery Rate 08/23 0515 97.3 75 16 130/86 100.5 95 Room air 08/23 0237 98 Room air 08/22 2342 98.4 63 16 118/67 84.1 94 Room air 08/22 1948 94 Room air 21 08/22 1925 98.1 77 18 126/64 84.6 97 08/22 1622 97.3 72 18 147/70 95.7 94 Room air 08/22 1522 97.9 75 18 157/74 101.8 97 Room air 08/22 1128 98.4 72 18 132/71 91.2 97 Room air 08/22 1024 97.5 82 103/65 77.4 96 Room air 08/22 0847 79 91/59 69.8 90 08/22 0845 77 107/64 78.3 95 08/22 0831 66 126/64 84.9 96 PATIENT WEIGHT: Weight (lb): 221Weight (oz): 9.03Weight (kg): 100.500 Medications:Active Meds + DC'd Last 24 HrsFurosemide (LASIX) 20 MG DAILY PO (CAN) Metoprolol Tartrate (LOPRESSOR) 12.5 MG Q12HR PO Midodrine (PROAMATINE) 5 MG TID AC PO Phenazopyridine HCl (PYRIDIUM) 200 MG BID MEALS PO Midodrine (PROAMATINE) 5 MG BID 9A 5P PO (DC) Furosemide (LASIX) 40 MG Q12H PO (DC) Duloxetine HCl (CYMBALTA) 60 MG BEDTIME PO Ezetimibe (ZETIA) 10 MG DAILY PO Amiodarone HCl (CORDARONE) 200 MG BID PO Aspirin (ASPIRIN) 81 MG DAILY PO Clopidogrel Bisulfate (Plavix) 75 MG DAILY PO Cyanocobalamin (Vitamin B-12 500 mcg tab) 500 MCG DAILY PO Ferrous Sulfate (FERROUS SULFATE) 325 MG DAILY PO Polyethylene Glycol (MIRALAX) 17 GM DAILY PO Pantoprazole (PROTONIX) 40 MG DAILY@0600 PO Budesonide (PULMICORT RESPULES) 0.5 MG RTBID INH Formoterol Fumarate (PERFOROMIST) 20 MCG RTBID NEB Docusate Sodium (COLACE) 100 MG BID PO Ipratropium [place] (ATROVENT) 500 MCG RTQ6H INH Metoprolol Tartrate (LOPRESSOR) 25 MG Q12HR PO (DC) Sennosides (Senna Lax 8.6 MG TABLET) 17.2 MG BEDTIME PO Hydralazine HCl (APRESOLINE) 10 MG Q6H PRN PRN IV Acetaminophen (TYLENOL) 650 MG Q4H PRN PRN PO Ipratropium [place] (ATROVENT) 500 MCG RTQ2H PRN PRN INH Melatonin (Melatonin) 6 MG BEDTIME PRN PO Ondansetron HCl (ZOFRAN ODT) 4 MG TID PRN PRN SL Functional ProgressFunctional progress:PT daily note comment: S; PT REPORTS NO COMPLAINTS OF ACUTE PAIN WITH ACTIVITIES IN THERAPY. O: PT WAS SEEN FOR 90MIN OF THERAPY BEGINNING WITH DON OF ENZO DAN,PT SLOW MOVING EXTRA TIME ASSIST THREADING PANTS PT PULL UP IN SUPINE. COMPLETE ORTHO VITALS AND RECORD,PT TRANSFER FROM BED TO REPETITION WITH CUES WITHSTERNAL PRECUATIONS NON COMPLIANT PARTIAL DUE TO MEMORY DEFICITS. WHEEL PT TO RESTROOM PT STANDS AND TRANSFERS MIN-A AGAIN NON COMPLIANT EXTRA TIME IN RESTROOM DUE TO BOWEL MOVEMENT SET WITH WIPING PT ABLE TO PICK PANTS UP. MOBILITIY AROUND UNIT 100,50 X2 VC WITH SAFETY AND PROPEL SEQUENCE.GAIT TRAINING WITH RW 50',80' VC WITH STAYING WITHIN RW [place] FOR SAFETY ,THER-EX IN SITTING BI LE IN ALL PLANES 10REPS,3 SETS,EDUCATE PT ON SAFETY W/TRANSFERS,SAFETY W/FALL PREVENTION TO UTILIZE CALL LIGHT WHEN IN NEED OF ASSISTANCE. EDUCATE PT ON SAFETY WITH RW SAFETY WITH WC MOBILITY.PT REPORTS SOME DIZZINESS WITH ACTIVITIES IN THERAPY. A; PT MAKING PROGRESS WITH FUNCTIONAL GOALS,COMPLETES ALL ACTIVITIES WITH LENGTY REST STOPS DUE TO DIZZINESS WITH STANDING ACTIVITIES.ORTHO VITALS PRIOR TO THERAPYWITH ENZO HOSE AND BINDER IN PLACE. SUPINE-126/64 DC-69 SITTING- 107/64 DC 80 IN STANDING 91/59 DC 79. P: PT CONT. WITH PT POC. Physical ExamGeneral appearance: alert, awakePsych: alert, normal affect, oriented x 3HEENT: anicteric, mucosal membranes moist, pupils reactive to light, sclera clearNeck: non-tender, supple, no JVDCardiovascular: irregular rhythm, S1/S2, cap refill wnl, pulses intactRespiratory: diminished breath sounds, on oxygen, aerating wellAbdomen: bowel sounds present, non-distended, soft, non-tenderSkin: dry, normal temperature, no rash, bruising R thigh, mild L thigh, BUE, R hand Sl tender/edema, sternum incision RSH site CDI, R elbow abrasionMusculoskeletal - general: Musculoskeletal - general: OA changes, normal tone, no swelling, Moves all 4 exts AG, calves NT, no cords, Homans negNeuro/TEAROOM HOST/HOSTESS: alert, oriented X 3, CNII-XII intact, normal speech, no motor deficits, no sensory deficits ResultsFindings/Data:Laboratory Tests 08/23 08/22 08/21 0700 0700 0530 Chemistry Sodium (134 - 147 mEq/L) 138 137 141 Potassium (3.4 - 5.0 mEq/L) 4.2 4.2 4.2 Chloride (100 - 108 mEq/L) 100 100 104 Carbon Dioxide (21 - 33 mEq/l) 30 31 30 Anion Gap (0 - 20) 12 10 12 BUN (7 - 18 mg/dL) 30 H 35 H 33 H Creatinine (0.6 - 1.3 mg/dL) 2.2 H 2.2 H 2.2 H Glomerular Filtr Rate (70 - 80) 29.5 L 29.5 L 29.5 L Glucose (70 - 110 mg/dL) 93 100 98 Calcium (8.0 - 10.5 mg/dL) 9.4 9.2 9.2 Ionized Calcium Suzanna (1.09 - 1.30 MMOL/L) 1.14 Magnesium (1.80 - 2.40 mg/dL) 1.89 Albumin (3.4 - 5.0 g/dL) 3.50 Prealbumin (16.0 - 40.0 mg/dL) 14.3 L Laboratory Tests 08/23 08/21 0700 0530 Hematology WBC (4.5 - 11.0 x10 3/uL) 10.4 9.4 RBC (4.00 - 5.60 x10 6/uL) 3.20 L 2.96 L Hgb (12.5 - 16.9 g/dL) 9.7 L 8.9 L Hct (37.5 - 50.7 %) 30.4 L 28.5 L MCV (81.0 - 99.0 fL) 95.0 96.3 MCH (27.0 - 33.0 pg) 30.3 30.1 MCHC (33.0 - 37.0 g/dL) 31.9 L 31.2 L RDW (11.5 - 14.5 %) 14.6 H 14.9 H Plt Count (150 - 400 x10 3/uL) 489 H 444 H MPV (7.0 - 9.0 fL) 9.3 H 9.6 H Neut % (Auto) (56.0 - 77.0 %) 77.1 H 73.3 Lymph % (Auto) (14.0 - 32.0 %) 8.0 L 9.9 L [place] % (Auto) (4.8 - 9.0 %) 6.8 8.2 Eos % (Auto) (0.3 - 3.7 %) 6.5 H 7.0 H Baso % (Auto) (0.0 - 2.0 %) 0.8 0.6 Neut # (Auto) (2.0 - 7.6 x10 3/uL) 8.00 H 6.91 Lymph # (Auto) (1.0 - 3.8 x10 3/uL) 0.83 L 0.93 L [place] # (Auto) (0.1 - 0.8 x10 3/uL) 0.71 0.77 Eos # (Auto) (0.0 - 0.2 x10 3/uL) 0.67 H 0.66 H Baso # (Auto) (0.0 - 0.2 x10 3/uL) 0.08 0.06 Abs Immat Gran (auto) (0.00 - 0.03 x10 3/uL) 0.08 H 0.09 H Add Manual Diff NO NO Immature Gran % (0.0 - 2.0 %) 0.8 1.0 Nucleated RBC % (0 - 0 %) 0.0 0.0 Nucleated RBCs # (Man) (0.0 - 0.1 x10 3/uL) 0.00 0.00 Laboratory Tests 08/21 1200 Urines Urine Color (YEL/STRAW) YELLOW Urine Appearance (CLEAR) CLEAR Urine pH (5.0 - 7.0) 5.0 Ur Specific [place] (1.005 - 1.030) 1.011 Urine Protein (NEGATIVE) NEGATIVE Urine Glucose (UA) (NEGATIVE) NEGATIVE Urine Ketones (NEGATIVE) NEGATIVE Urine Blood (NEGATIVE) NEGATIVE Urine Nitrite (NEGATIVE) NEGATIVE Urine Bilirubin (NEGATIVE) NEGATIVE Urine Urobilinogen (0.2 - 1.0 mg/dL) 0.2 Ur Leukocyte Esterase (NEGATIVE) NEGATIVE Urine RBC (0 - 3 RBC/HPF) 0-3 Urine WBC (0 - 3 WBC/HPF) 0-3 Ur Squamous Epith Cells (NONE SEEN /HPF) 0-5 Urine Bacteria (NONE SEEN /HPF) TRACE Hyaline Casts (NONE SEEN /LPF) 6-10 Urine Mucus (NONE SEEN /LPF) TRACE Recent Impressions:RADIOLOGY - XR SHOULDER 2 + V RT 08/22 1525 Report Impression - Status: SIGNED Entered: 08/22/2022 1752 IMPRESSION: No acute findings. Impression By: [email or web address] - Ramakrishna Dhaliwal M.D.CAT SCAN - CT HEAD/BRAIN W/O CONT 08/22 1546 Report Impression - Status: SIGNED Entered: 08/22/2022 1658 IMPRESSION: No acute intracranial abnormality, as above. Impression By: [email or web address] - Yosi Padron M.D. Diagnosis, Assessment PlanProblem List/A P: 1. CAD (coronary artery disease) 2. Afib 3. HTN (hypertension) 4. S/P CABG x 5 5. Impaired functional mobility, balance, gait, and endurance Free Text A P:Assessment:Multivessel CAD3/9: S/p CABG x5-Dr. Lind-fib s/p a LAAEndoscopic RGSV harvest08/16: Echo-EF 50-54%, small pericardial effusionSmall bilateral pleural effusions.Muscle weakness Unsteady gaitAlzheimer's dementia (as per family), poor memoryPostoperative anemiaAKI on CKDHTNImpairment in self-care, ADLs and functional mobility Plan:-Continue PT/OT-Case management for safe discharge planning.-Decubitus prevention-protective hydrating lotion-turn every 2 bgkpg-wspkckw-Sqstv program-MiraLAX, senna-Nutrition, monitor the patient's p.o. intake, check albumin 3.5 and prealbumin 14.3, dietary consult, protein supplements. Cardiac diet. BMI above normal parameters. Working with dietary, follow up with PCP-Strict fall and safety precaution-DVT isyecocnpgi-ZNXi-TH prophylaxis on Protonix-CAD on Plavix and aspirin, intolerant to statins-Pulmonary toilet frequent I-S, nebs, wean O2-Early mobilization-OOB to chair-Work on bed mobility, transfer training, ADLs, pre-gait and gait exercises as tolerable. -Increase endurance and strength-Pain management-Postop care as per CVS-Monitor telemetry-Cardiology on case-LADARIUS as per nephrology-Dementia/confusion-Higher level of nursing care and monitoring for safety-Strict sternal precautions-patient with poor carryover of sternal precautions-Monitor sites of bruising and right hand pain-from previous phlebotomy sites-nosigns of infection-Labs reviewed-WBC normal, hemoglobin 9.1, 8.9, platelets stable, creatinine 1.9, 2.2, magnesium normal, HgbA1C 5.2. -Anemia-vitamin B12 and ferrous sulfate-Advance therapies as tolerable -Orthostasis/dizziness-diuretics reduced-midodrine added-use ENZO hose and abdominal binder when out of jqd-ksdzcts-Ffcnlfb tolerating treatment sessions fair and slowly progressing towards his goals. Patient orthostatic and symptomatic recovers with seated rest breaks. Patient using ENZO hose and abdominal binder. Blood pressure sitting 130/80, standing 102/60, no carryover with sternal precautions.-Remove sutures x2 from lower chest-Requires verbal cues to maintain sternal precautions with bogaxnxcq-Siubgt-nd with PCP for dementia cdggwnnevd-Tqvbjof-FC negative-continue with Ssvhrzxg-dxuognw-Vqeggmd seen by trauma team yesterday after fall. CT head negative. Patient appears to be at his baseline today RN called me this afternoon and said pt's R elbow hurting more. 2 view R elbow xray ordered. PM RPlease see team note.Plan and goals discussed with the patient. I agree with the teams findingELOS: [08/21]TU-rmbe-iavlyfnw livingDME-bedside commode, rolling walker Total time was 33 minutes > 50% with patient performing physical examination, discussing with patient about fall precaustions, discharge plans, sternal precautions, plan of care, goals, therapies, progress, medications, labs. All questions answeredRehab attestation:Face to face exam completed. Treatment plan discussed with patient. Meets continued stay criteria. Agree with interdisciplinary treatment plan. Arthur Fuentes 08/23/22 0818:Attestations Physician AttestationAgree w/findings plan:Patient seen and examined by me. Agree with the findings and plan as documentedby ALVAREZ Bush.Nurse notified me last night that patient had a fall while heading to the bathroom. Patient forgot his safety precautions and got out of wheelchair and walked towards the bathroom and fell injuring his head without LOC and also complained of right shoulder pain and developed a small superficial abrasion to right elbow. Trauma team consulted. CTh and right shoulder x-ray negative for acute findings. Reminded patient strict fall and safety precautions. Wound care. Patient doing well this morning in the gym working with therapist. No trauma to head and has full range of motion of the right shoulder. at 0918 at 1647 [facility] #:[id number] OF REPORTPRProgress [id number]:50:00G.[id number] for patient uoryBTHGEPEPRZINKL7539-14-97D65:18:59 [facility] 2022-08-22 17:21:00 [id number]/eAngxARzBREPGgnL0TuZC [id number]:21:00 [facility] ([facility])Trauma Consultation NoteREPORT#:[id number] REPORT STATUS: SignedDATE:08/22/22 TIME: 1721 PATIENT: BRENNAN AHN UNIT #: [id number]#: [id number] [address] AGE: 82 SEX: M ATTEND: Arthur Fuentes [facility] AUTHOR: Ariana Kruse BUILDING PRINCIPAL * ALL edits or amendments must be made on the electronic/computer document * Ariana Kruse 08/22/22 1721:HPI Time At BedsideTime at bedside: 1700 HPIRequest[address]ician: Dr. Burkett for consult:inpatient fall with headstrikeChief complaint:Right shoulder tendernessPCP:PCP: No Primary or Family Physician HPI:The patient was seen in the inpatient rehab unit at the request of Dr. Fuentes.CC: R shoulder painHPI: Brennan Ahn is an 82 y/o M PMH of dementia, HTN, Afib, SVT s/p ablation.Admitted to inpatient rehab after CABG x5 that was done on 08/10/22. Trauma service consulted 08/22/22 after pt had a fall from standing with head strike as reported by nursing. Pt states that he has dementia and can not remeber all the details of the fall. STAT CT Head and R shoulder xray requested. 1. Airway patent, conversational2. Equal chest rise and fall, no distress3. 2+ pulses distally to all 4 extremities4. Neuro status intact distally to all 4 extremities5. Exposed, warm blankets applied no gross abnormalities Past medical history:dementia, HTN, Afib, SVT s/p ablation, CAD Past surgical history:CABG x5 08/10/22 Allergies:NKA Social history:denies smoking, alcohol, drugs Medications: ASA/ plavix History - Adult longitudinalPast medical history:Reports: Atrial fibrillation, Coronary artery disease, Dementia, Kidney disease/stones. Past surgical history:Reports: CABG. Additional surgical history:Crevial Laminectomy amputation of left atrial appendageFamily history:Reports: Hypertension. Alcohol use: Denies EtOH useDrug use: Denies recreational drugsSmoking status for patients 13 years old or older: Former SmokerAllergies:Coded Allergies:Ckfnsak-UTU-QbD Reductase Inhibitor (Severe, UNKNOWN 08/16/22) ROS ROSSkin:Reports: bruising. Musculoskeletal: Extremity pain: Reports: right upper. Free Text ROS NotesFree Text ROS Notes:Review of systems:As above; otherwise, negative to include neurologic, eyes, ENT, CV, respiratory,GI, musculoskeletal, , skin, psychiatric, hematologic, and allergy. Objective Physical ExamVS/I O:Vital Signs: Date Time Temp Pulse Resp B/P B/P Pulse O2 O2 Flow FiO2 Mean Ox Delivery Rate 08/22 1622 97.3 72 18 147/70 95.7 94 Room air 08/22 1522 97.9 75 18 157/74 101.8 97 Room air 08/22 1128 98.4 72 18 132/71 91.2 97 Room air 08/22 1024 97.5 82 103/65 77.4 96 Room air 08/22 0847 79 91/59 69.8 90 08/22 0845 77 107/64 78.3 95 08/22 0831 66 126/64 84.9 96 08/22 0510 73 16 98/62 74.2 95 08/22 0509 79 16 85/47 59.6 95 08/22 0508 64 16 105/59 74.4 94 08/22 0503 97.7 70 16 128/73 91.2 94 08/22 0002 97.7 67 18 128/76 93.5 96 08/21 1847 98.1 79 16 111/68 82.7 98 24 hour I O ending at 0700: 08/22 0700 08/21 1900 Intake Total Output Total 300 800 Balance -300 -800 Number 1 0 Incontinent Voids Number Voids 3 4 Output, Urine 300 800 PATIENT WEIGHT: Weight (lb): 221Weight (oz): 9.03Weight (kg): 100.500 ResultsFindings/Data:Laboratory Tests 08/22 0700 Chemistry Sodium (134 - 147 mEq/L) 137 Potassium (3.4 - 5.0 mEq/L) 4.2 Chloride (100 - 108 mEq/L) 100 Carbon Dioxide (21 - 33 mEq/l) 31 Anion Gap (0 - 20) 10 BUN (7 - 18 mg/dL) 35 H Creatinine (0.6 - 1.3 mg/dL) 2.2 H Glomerular Filtr Rate (70 - 80) 29.5 L Glucose (70 - 110 mg/dL) 100 Calcium (8.0 - 10.5 mg/dL) 9.2 Ionized Calcium Suzanna (1.09 - 1.30 MMOL/L) 1.14 Radiology data:Recent Impressions:CAT SCAN - CT HEAD/BRAIN W/O CONT 08/22 1546 Report Impression - Status: SIGNED Entered: 08/22/2022 3281 IMPRESSION: No acute intracranial abnormality, as above. Impression By: [email or web address] - Yosi Padron M.D. Free Text Obj NotesFree Text Obj Notes:Constitutional: GCS 14 Patient appears awake, alert, no acute distress, HR, BP, Saturation reviewed in records.Eyes: pupils equal, round, reactive to light, EOMIHENT: normal cephalic, atraumatic, no facial tenderness or crepitus, normal external inspection of ears/nose, no septal hematoma.Neck: trachea midline, no crepitus, thyroid without massCV: irregular rate/ rhythm, bilateral radial pulses 2+, no cyanosis, no edema, no pulsatile abdominal massRespiratory: lungs clear bilaterally, respirations even and unlabored, no tenderness to palpation, normal inspection of chest, no crepitusAbdomen: soft, non-tender, no masses, no hernia notedGU: normal external genitalia, pelvis stableLymph nodes: no cervical or supraclavicular masses notedMusculoskeletal:-Left upper extremity without focal tenderness, without deformity, with ROM intact-Right upper extremity without focal tenderness, without deformity, with ROM slightly impaired d/t pain in the shoulder-Left lower extremity without focal tenderness, without deformity, with ROM intact-Right lower extremity without focal tenderness, without deformity, with ROM intact-no cervical spine tenderness with full ROM-no thoracic/lumbar spine tenderness or step-off.Skin: no lacerations or abrasions noted, skin warm to palpation. bruises noted on bilat arms and backPsychiatric: normal mood and affect, memory intact.Neurologic: face symmetrical. Bilateral upper and lower extremity sensation intact Diagnosis, Assessment Plan Diagnosis, Assessment PlanConsultants: cardiology, cardiovascular surgery, hospitalist, nephrology Free Text DxA P NotesFree Text DxA P Notes:Mechanism:fall from standing Injuries:none noted/ strength intact/ mental status at baselineCTH 08/22 reviewed with no acute intracranial abnormalityR shoulder bruise -- shoulder xray with no acute fx or dislocations Active Problems:s/p fall Resolved Problems:n/a Incidental findings: n/aChronic Medical Problems: dementia, HTN, Afib, SVT s/p ablation, CADDVT prophylaxis: SCDsGI prophylaxis: dietLines/Longo/ETT: PIV Consultants: IM, PMR, nephrologyProcedures: CABG on 08/10/22 Plan:Pt was seen and evaluated with Dr Lloyd, who determined the POCAs a result of this trauma consultation, pt will be admitted to rehabTrauma will sign off. No injuries noted. Please do not hesistate to reach out with any change of condition/concerns Diet: cardiac/pureeLabs: AMPT/OT recs: pendingDME: recs pendingCode status: Full codeMedical Decision Making: In the event the patient is incapacitated and not able to make their own medical decisions, they have elected Piero Rice, contact number [phone], to make medical decisions for them.Dispo: Admit; will continue to monitor for ICU needs or any further changes to level of care Quality: Trauma Gen Surg Advanced Care Plan 65 or OlderDiscussed with: patientDiscussion included: code status Current MedicationsCurrent medication review:I attest that the foregoing medication list in the medical record is true, accurate, and complete to the best of my knowledge. Genaro Lloyd 08/27/22 0911:Attestations Physician AttestationAgree w/findings plan:I have performed a diagnostic evaluation on this patient. I have personally reviewed the assessment and care plan and confirm the diagnosis as above. I have also reviewed and agree with Ivana Kruse NP documentation and implemented plans as they have dictated/documented. Thanks for helping take care of this patientPlease call with questions. at [phone] at [phone] RPT #:[id number] OF REPORTDTGnrfgzzweafg1074-41-98Z31: 21:00G.[id number] for patient vtakPRYCMWOGEQVFXI7587-78-04V59:27:01 [facility] 2022-08-22 15:30:00 [id number]/ Ln1692-26-19J59:30:00 [facility] Prog. NoteREPORT#:[id number] REPORT STATUS: SignedDATE:08/22/22 TIME: 153 PATIENT: BRENNAN AHN UNIT #: [id number]#: [id number] [address] AGE: 82 SEX: M ATTEND: Ar[facility]ru [facility] AUTHOR: Devin Fox DO * ALL edits or amendments must be made on the electronic/computer document * SubjectiveChief complaint:pt s c/o . now in rehab Review of SystemsAll systems rev neg: except as marked Objective GeneralVS/I O:Vital Signs Date Temp Pulse Resp B/P B/P Mean Pulse Ox FiO2 08/21-08/22 97.5-98.4 64-82 16-18 85-157/47-76 59.6-101.8 90-98 Last Documented: Result Date Time Pulse Ox 97 08/22 1522 B/P 157/74 08/22 1522 B/P Mean 101.8 08/22 1522 O2 Delivery Room air 08/22 1522 Temp 97.9 08/22 1522 Pulse 75 08/22 1522 Resp 18 08/22 1522 FiO2 21 08/184 24 hour I O ending at 0700: 08/22 0700 08/21 1900 Intake Total Output Total 300 800 Balance -300 -800 Number 1 0 Incontinent Voids Number Voids 3 4 Output, Urine 300 800 PATIENT WEIGHT: Weight (lb): 221Weight (oz): 9.03Weight (kg): 100.500 Medications:Active Meds + DC'd Last 24 HrsFurosemide (LASIX) 20 MG DAILY PO (CAN) Metoprolol Tartrate (LOPRESSOR) 12.5 MG Q12HR PO Midodrine (PROAMATINE) 5 MG TID AC PO Phenazopyridine HCl (PYRIDIUM) 200 MG BID MEALS PO Midodrine (PROAMATINE) 5 MG BID 9A 5P PO (DC) Furosemide (LASIX) 40 MG Q12H PO (DC) Duloxetine HCl (CYMBALTA) 60 MG BEDTIME PO Ezetimibe (ZETIA) 10 MG DAILY PO Amiodarone HCl (CORDARONE) 200 MG BID PO Aspirin (ASPIRIN) 81 MG DAILY PO Clopidogrel Bisulfate (Plavix) 75 MG DAILY PO Cyanocobalamin (Vitamin B-12 500 mcg tab) 500 MCG DAILY PO Ferrous Sulfate (FERROUS SULFATE) 325 MG DAILY PO Polyethylene Glycol (MIRALAX) 17 GM DAILY PO Pantoprazole (PROTONIX) 40 MG DAILY@0600 PO Budesonide (PULMICORT RESPULES) 0.5 MG RTBID INH Formoterol Fumarate (PERFOROMIST) 20 MCG RTBID NEB Docusate Sodium (COLACE) 100 MG BID PO Ipratropium [place] (ATROVENT) 500 MCG RTQ6H INH Metoprolol Tartrate (LOPRESSOR) 25 MG Q12HR PO (DC) Sennosides (Senna Lax 8.6 MG TABLET) 17.2 MG BEDTIME PO Hydralazine HCl (APRESOLINE) 10 MG Q6H PRN PRN IV Acetaminophen (TYLENOL) 650 MG Q4H PRN PRN PO Ipratropium [place] (ATROVENT) 500 MCG RTQ2H PRN PRN INH Melatonin (Melatonin) 6 MG BEDTIME PRN PO Ondansetron HCl (ZOFRAN ODT) 4 MG TID PRN PRN SL Physical ExamGeneral appearance: alert, awake, orientedHead/Eyes: EOMI, PERRLANeck: non-tender, no JVDCardiovascular: normal heart sounds, regular rate rhythmRespiratory: aerating well, clear to auscultationAbdomen: non-tender, normal bowel soundsExtremities: Extremities: no cyanosis, no edemaNeuro/TEAROOM HOST/HOSTESS: alert, oriented x 3, CNII-XII intact ResultsFindings/Data:Laboratory Tests 08/22/22 0700:[Embedded Image Not Available]Laboratory Tests 08/22 0700 Chemistry Sodium (134 - 147 mEq/L) 137 Potassium (3.4 - 5.0 mEq/L) 4.2 Chloride (100 - 108 mEq/L) 100 Carbon Dioxide (21 - 33 mEq/l) 31 Anion Gap (0 - 20) 10 BUN (7 - 18 mg/dL) 35 H Creatinine (0.6 - 1.3 mg/dL) 2.2 H Glomerular Filtr Rate (70 - 80) 29.5 L Glucose (70 - 110 mg/dL) 100 Calcium (8.0 - 10.5 mg/dL) 9.2 Ionized Calcium Suzanna (1.09 - 1.30 MMOL/L) 1.14 Diagnosis, Assessment PlanHospital course to date:82-year-old male with past medical history of hypertension, atrial fibrillation,supraventricular tachycardia status post ablation who was admitted with reports of multivessel coronary artery disease found on a cardiac catheterization done at [facility]. Patient was transferred to [facility] for CABG. He underwent GLBNp8r. 1. Coronary artery disease-Status post CABG x5, ALAA, PVI-Continue metoprolol, Plavix, aspirin 2. Atrial fibrillation-Continue po amiodarone for rate control- taper AMIO per cards-Continue metoprolol-Monitor and review telemetry 3. Debility-.-PT/OT- PMR- Inpt Rehab 4. ARF- Trend cr 1.3-1.9-2.2-2.0-1.9-2.2- post op, post lasix therefore likely pre-renal- baseline CKD is suspected- nephro consulted 5. anemia- acute, post op expecteed- monitor and transfuse if hg <7- cont po Iron- Trend Hg 9.1 6. Delirium-Likely due to sundowning-Monitor closely-Patient is neurologically intact dispo: INPT REHABtotal time spent 35mins Consultants: cardiology, cardiovascular surgery, hospitalist, nephrology Quality: Gen Med Crit Care Current MedicationsCurrent medication review:I attest that the foregoing medication list in the medical record is true, accurate, and complete to the best of my knowledge. Advanced Care Plan 65 or OlderDiscussed with: patientDiscussion included: code status at 0917 RPT #:[id number] OF REPORTPRProgress [id number]:30:00G.[id number] for patient [id number]:17:43 [facility] 2022-08-22 14:13:00 [id number] [id number]/iq9HCb2p0 [id number]:13:00 [facility] HospitalNephrology Progress NoteREPORT#:[id number] REPORT STATUS: SignedDATE:08/22/22 TIME: 1413 PATIENT: BRENNAN AHN UNIT #: [id number]#: [id number] [address] AGE: 82 SEX: M ATTEND: Arthur Fuentes [facility] AUTHOR: Maura Terrazas MD * ALL edits or amendments must be made on the electronic/computer document * SubjectiveChief complaint:chest painHPI:82-year-old male known to have hypertension, atrial fibrillation, supraventricular tachycardia with requiring ablation presenting with multivesselcardiovascular disease and he underwent CABG 07/13/2022. He endorsed having kidney issues in the past and seeing a specialist managers at [place] but his kidney function had been stable since then.He developed oliguria,LADARIUS and hypervolemia post CABG but had now improved and was transferred to rehab. 08/22Patient appearing comfortable,denying all systemic review including dizziness. Objective GeneralVS/I O:Vital Signs: Date Time Temp Pulse Resp B/P B/P Pulse O2 O2 Flow FiO2 Mean Ox Delivery Rate 08/22 1128 36.9 72 18 132/71 91.2 97 Room air 08/22 1024 36.4 82 103/65 77.4 96 Room air 08/22 0847 79 91/59 69.8 90 08/22 0845 77 107/64 78.3 95 08/22 0831 66 126/64 84.9 96 08/22 0510 73 16 98/62 74.2 95 08/22 0509 79 16 85/47 59.6 95 08/22 0508 64 16 105/59 74.4 94 08/22 0503 36.5 70 16 128/73 91.2 94 08/22 0002 36.5 67 18 128/76 93.5 96 08/21 1847 36.7 79 16 111/68 82.7 98 08/21 1607 36.4 69 18 137/76 96.0 97 Room air 24 hour I O ending at 0700: 08/22 0700 08/21 1900 Intake Total Output Total 300 800 Balance -300 -800 Number 1 0 Incontinent Voids Number Voids 3 4 Output, Urine 300 800 PATIENT WEIGHT: Weight (lb): 221Weight (oz): 9.03Weight (kg): 100.500 Physical ExamGeneral appearance: alert, awake, orientedHead/eyes: atraumatic, clear cornea, EOMIENT: moist mucous membranes, normal noseNeck: no JVD, no masses or swellingCardiovascular: normal heart sounds, regular rate and rhythmRespiratory: aerating well, clear to auscultationAbdomen: non-tender, softGenitourinary: no bladder distention, no flank painExtremities: pitting edema, no gangrene, no swelling Diagnosis, Assessment PlanFree Text A P:82-year-old male known to have hypertension, atrial fibrillation, supraventricular tachycardia with requiring ablation presenting with multivesselcardiovascular disease and he underwent CABG 07/13/2022. Transferred to rehab for therapy. Nephrology following for: 1. Acute kidney injury: Most likely prerenal as he recently had surgery. Renal function Improved.Plan to monitor. 2. Hypervolemia:Patient at high risk of volume overload so would reccommend lasix PO, lasix held due to hypotension .Volume improved. 3. Electrolytes: His electrolytes appear to be in normal range plan is to monitor and replace as needed. 4. HTN:Controlled with current medications.Plan to continue same.He develops orthostasis so medication doses minimised. 08/21 1. Acute kidney injury: Most likely prerenal as he recently had surgery. Resolving with better hemodynamics.His kidney function was stable plan was to monitor closely. 2. Hypervolemia:Patient at high risk of volume overload so would reccommend lasix PO .He recently developed orthostasis so dose reduced to 40 PO daily. Plan to increase lasix to Q12H and add midodrine for hypotension,patient is not dizzy anymore and he was tolerating Lasix at current dose. Plan was to monitor input and output closely. 3. Electrolytes: His electrolytes appear to be in normal range plan is to monitor and replace as needed. 4. HTN:Currently he develops orthostatic hypotension so not on any medications besides lasix and metoprolol. He was requiring midodrine to keep his blood pressures above 100 systolic. 08/22 1. Acute kidney injury: Most likely prerenal as he recently had surgery. Renal function Improved.Plan to monitor. 2. Hypervolemia:Patient at high risk of volume overload so would reccommend lasix PO, lasix held due to hypotension .Volume improved. 3. Electrolytes: His electrolytes appear to be in normal range plan is to monitor and replace as needed. 4. Hypotension: Midodrine dose increased .Plan to monitor. Consultants: cardiology, cardiovascular surgery, hospitalist, nephrology at 1432 RPT #:[id number] OF REPORTPRProgress [id number]:13:00G.[id number] for patient [id number]1C25:32:31 [facility] 2022-08-22 13:28:00 [id number] vKYB+fS4S+p3JDVMeBe6WNvxtOKh6vWfVh3XG [id number]:28:00 [facility] HospitalRehab Team ConferenceREPORT#:[id number] REPORT STATUS: SignedDATE:08/22/22 TIME: 1328 PATIENT: BRENNAN AHN UNIT #: [id number]#: [id number] [address] AGE: 82 SEX: M ATTEND: Arthur Fuentes AUTHOR: Arthur Fuentes MD * ALL edits or amendments must be made on the electronic/computer document * Rehabilitation Team Conference Weekly Team ConferenceTeam conf information:Date of conference: 08/22/22Conference type: InitialConference scribe: Ana Cristina Solano PTA INTERDISCIPLINARY TEAM MEETING PARTICIPANTS: TITLE NAME MD Arthur Fuentes MD RN Monster Smalls, RN PT Shay Tristan, PT OT Vanessa Garcia OT CM/JOE Forrest CM Ami Hobbs, HOSPICE SPIRITUAL CARE COORDINATOR [facility] Ami Hobbs, HOSPICE SPIRITUAL CARE COORDINATOR Staff (8) NO ATTENDEE Staff (9) NO ATTENDEE OTHER NAME CREDENTIALS 1 2 FUNCTIONAL CHANGE: TYPE ADMISSION TOTAL INTERIM TOTAL CHANGE Self care 23 31 8 Transfer 16 22 6 Mobility 11 26 15 Wheelchair distance: Mobility description: BOWEL AND BLADDER STATUS: Bowel continence admission rating: Bladder continence admission rating: Always continentBowel and bladder team conference update: CONTINENT OF BOWEL AND BLADDER DURING SHIFT INTERDISCIPLINARY TEAM UPDATES: VIVIAN team conference update: PT. IMPULSIVE / REORIENTATION NEEDED/ PT. CONTINUES 1 PERSON ASSIST PT team conference update: PROGRESS: PROGRESSING SLOWLY DME; 20" W/C, RW D/C; HHPT VS CHRISTOPHER. PT LIVES ALONE IN [facility]. HAS POOR RECALL AND NO CARRYOVER WITH STERNAL PREC. PT ALSO GETS ORTHOSTATIC WITH PROLONGED STANDING ACTIVITES AND AMBULATION. PT IS MOD A WITH BED MOB, MIN A FOR TRANSFERS FROM HIGHER SEATED POSITION, MIN A WITH AMBULATION WITH RW. OT team conference update: PT MAKING FAIR PROGRESS WITH ADL TRANSFERS D/T POOR CARRYOVER OF SAFETY/ADHERENCE TO STERNAL PREC. ADLS: MIN-CA DME: BSC BARRIERS: DEC ENDURANCE, DEC SAFETY/STM MEMORYST team conference update: CM or SW team conference update: PATIENT LIVES AT HOME ALONE. [place] SON [place]IVES [place] AN HOUR AWAY. PLAN FOR THE PATIENT TO GO TO AN [facility] TO TIME OF DC.Other discipline update 1: P.O INTAKE: 40-50% OF A DYS 5 WITH ENSURE PLUS MAX HP.Other discipline update 2: Other discipline update 3: REHAB DC GOALS: Patient's identified discharge goal: PT: TO GO HOME Eating discharge goal: Independent (6) Shower/bathe self discharge goal: Setup/clean-up only (5) Upper body dressing discharge goal: Independent (6) Lower body dressing discharge goal: Independent (6) Chair/bed to chair transfer discharge goal: Independent (6) Transfer on/off toilet or commode discharge goal: Independent (6) Walking 50 feet with two turns discharge goal: Independent (6) Walking 150 feet discharge goal: Independent (6) Four steps discharge goal: Supervise/touch asst (4) Twelve steps discharge goal: Not applicable [place] 150 feet discharge goal: Independent (6) Goal 1 - Bowel function: PATIENT WILL REMAIN CONTINENT OF BOWELS WITH BM AT LEAST ONCE EVERY 3 DAYS.Goal 2 - Bladder function: PATIENT WILL REMAIN CONTINENT OF BLADDER-UTILIZING URINAL OR UP TO BATHROOM FOR VOIDING.Nursing goal 3: PATIENT WILL REMAIN FREE FROM SKIN BREAKDOWN.Nursing goal 4: PATIENT WILL REPORT ADEQUATE PAIN CONTROL DURING REHAB STAY.Nursing goal 5: PATIENT WILL BE FROM INJURY AND FALLS DURING REHAB STAY. DISCHARGE PLANNING: Barriers to discharge: Caregiver, Cognition, Endurance, Fall riskStrategies for D/C barriers: Behavioral mod plan, Evaluate sleep patterns, Fall recovery training, Home evaluationEstimated length of stay in days: 13Anticipated discharge date: 08/29/22Discharge date adjustment comment: Identified financial and/or community resource needs: Family/Caregiver training days: PATIENT AND FAMILY WILL BE EDUCATED ON USE OF GAIT BELT TO LOWER PT TO THE FLOOR IN THE EVENT OF LOSS OF BALANCE TO PREVENT FALL OR INJURY. FAMILY TRAINING TO BE SCHEUDLED BY THERAPY.[place] day (DATE): 08/28/22Expected discharge destination: Assisted living facilityAnticipated services upon discharge: Occupational therapy, Physical therapy, Nurses aide, NursingAnticipated discharge equipment: , [facility] Impairment group: cardiac disorders NOTE Document ONLY ONE Impairment GroupEtiologic diagnosis:CAD MULTIVESSEL A FIB PAROXYSMALReview of comorbidities:CAD, A FIB, DEMENTIA/ON ELLIQUIS, HTN, CHRONIC KIDNEY DX, POST OP ANEMIA, muscle weakness, unsteady gait, POST OP PULMONARY DYSFUNTION Review/RecommendationsAttestation:Romi s interdisciplinary team conference was led by me and I concur with all decisions made during the team conference and revisions to the individualized overall plan of care. IRF cont stay criteriaSee my note at 1329 RPT #:[id number] OF REPORTCLClinical [id number]:28:00G.[id number] for patient [id number]U11:29:40 [facility] 2022-08-22 09:09:00 [id number] ebMnd+iRclb5Xj2dLhD23XDbqe6loCohTseCB [id number]:09:00 [facility] ([facility])Cardiology Progress NoteREPORT#:[id number] REPORT STATUS: SignedDATE:08/22/22 TIME: 908 PATIENT: BRENNAN AHN UNIT #: [id number]#: [id number] [address] [birth year] AGE: 82 SEX: M ATTEND: Arthur Fuentes MDADM AUTHOR: Catrina Shetty AGALEONELA * ALL edits or amendments must be made on the electronic/computer document * SubjectiveComments:Lightheadedness Objective GeneralVS/I O:24 hour I O ending at 0700: 08/22 0700 08/21 1900 Intake Total Output Total 300 800 Balance -300 -800 Number 1 0 Incontinent Voids Number Voids 3 4 Output, Urine 300 800 Vital Signs: Date Time Temp Pulse Resp B/P B/P Pulse O2 O2 Flow FiO2 Mean Ox Delivery Rate 08/22 0847 79 91/59 69.8 90 08/22 0845 77 107/64 78.3 95 08/22 0831 66 126/64 84.9 96 08/22 0510 73 16 98/62 74.2 95 08/22 0509 79 16 85/47 59.6 95 08/22 0508 64 16 105/59 74.4 94 08/22 0503 36.5 70 16 128/73 91.2 94 08/22 0002 36.5 67 18 128/76 93.5 96 08/21 1847 36.7 79 16 111/68 82.7 98 08/21 1607 36.4 69 18 137/76 96.0 97 Room air 08/21 1154 85 124/73 90.0 98 08/21 1133 60 102/62 75.3 08/21 1126 88 130/80 96.4 PATIENT WEIGHT: Weight (lb): 221Weight (oz): 9.03Weight (kg): 100.500 Medications:Active Meds + DC'd Last 24 HrsFurosemide (LASIX) 20 MG DAILY PO (CAN) Metoprolol Tartrate (LOPRESSOR) 12.5 MG Q12HR PO Midodrine (PROAMATINE) 5 MG TID AC PO Phenazopyridine HCl (PYRIDIUM) 200 MG BID MEALS PO Midodrine (PROAMATINE) 5 MG BID 9A 5P PO (DC) Furosemide (LASIX) 40 MG Q12H PO (DC) Duloxetine HCl (CYMBALTA) 60 MG BEDTIME PO Ezetimibe (ZETIA) 10 MG DAILY PO Amiodarone HCl (CORDARONE) 200 MG BID PO Aspirin (ASPIRIN) 81 MG DAILY PO Clopidogrel Bisulfate (Plavix) 75 MG DAILY PO Cyanocobalamin (Vitamin B-12 500 mcg tab) 500 MCG DAILY PO Ferrous Sulfate (FERROUS SULFATE) 325 MG DAILY PO Polyethylene Glycol (MIRALAX) 17 GM DAILY PO Pantoprazole (PROTONIX) 40 MG DAILY@0600 PO Budesonide (PULMICORT RESPULES) 0.5 MG RTBID INH Formoterol Fumarate (PERFOROMIST) 20 MCG RTBID NEB Docusate Sodium (COLACE) 100 MG BID PO Ipratropium [place] (ATROVENT) 500 MCG RTQ6H INH Metoprolol Tartrate (LOPRESSOR) 25 MG Q12HR PO (DC) Sennosides (Senna Lax 8.6 MG TABLET) 17.2 MG BEDTIME PO Hydralazine HCl (APRESOLINE) 10 MG Q6H PRN PRN IV Acetaminophen (TYLENOL) 650 MG Q4H PRN PRN PO Ipratropium [place] (ATROVENT) 500 MCG RTQ2H PRN PRN INH Melatonin (Melatonin) 6 MG BEDTIME PRN PO Ondansetron HCl (ZOFRAN ODT) 4 MG TID PRN PRN SL Physical ExamGeneral appearance: alert, awakeNeck: non-tender, no JVDCardiovascular: CV assessment: irregularly irregularRespiratory: decreased breath sounds, no distressAbdomen: soft, non-tender, normal bowel sounds, no distentionGenitourinary: no flank pain, no urinary catheterLower extremity: LE assessment: no edemaMusculoskeletal: normal inspectionNeuro/TEAROOM HOST/HOSTESS: alertSkin: dryPsychiatry: normal affect, normal mood ResultsFindings/Data:Laboratory Tests 08/22 0700 Chemistry Sodium (134 - 147 mEq/L) 137 Potassium (3.4 - 5.0 mEq/L) 4.2 Chloride (100 - 108 mEq/L) 100 Carbon Dioxide (21 - 33 mEq/l) 31 Anion Gap (0 - 20) 10 BUN (7 - 18 mg/dL) 35 H Creatinine (0.6 - 1.3 mg/dL) 2.2 H Glomerular Filtr Rate (70 - 80) 29.5 L Glucose (70 - 110 mg/dL) 100 Calcium (8.0 - 10.5 mg/dL) 9.2 Ionized Calcium Suzanna (1.09 - 1.30 MMOL/L) 1.14 Laboratory Tests 08/21 1200 Urines Urine Color (YEL/STRAW) YELLOW Urine Appearance (CLEAR) CLEAR Urine pH (5.0 - 7.0) 5.0 Ur Specific [place] (1.005 - 1.030) 1.011 Urine Protein (NEGATIVE) NEGATIVE Urine Glucose (UA) (NEGATIVE) NEGATIVE Urine Ketones (NEGATIVE) NEGATIVE Urine Blood (NEGATIVE) NEGATIVE Urine Nitrite (NEGATIVE) NEGATIVE Urine Bilirubin (NEGATIVE) NEGATIVE Urine Urobilinogen (0.2 - 1.0 mg/dL) 0.2 Ur Leukocyte Esterase (NEGATIVE) NEGATIVE Urine RBC (0 - 3 RBC/HPF) 0-3 Urine WBC (0 - 3 WBC/HPF) 0-3 Ur Squamous Epith Cells (NONE SEEN /HPF) 0-5 Urine Bacteria (NONE SEEN /HPF) TRACE Hyaline Casts (NONE SEEN /LPF) 6-10 Urine Mucus (NONE SEEN /LPF) TRACE Results: labs reviewed, vital signs reviewed, rhythm personally rev'dTelemetry Interpretation:afib with controlled rate Diagnosis, Assessment PlanPlan discussed with: patient, collaborating MD, consultants (Nephro Dr. Terrazas), nurse Free Text DxA P NotesFree Text DxA P Notes:82 YO male with MHX of Afib, HTN, HLD, CAD who is s/p 5 vessel CABG and PVI and ALAA. The patient is transferred to [facility] for inpatient rehabilitation. We are consulted for continuity of cardiac-related care. 1. CAD s/p CABG x 5 (NGUYEN-LAD, SVG-Olga Lidia, SVG-OM, SVG-LPLA, SVG-PDA) continue asa, BB, plavix, Zetiaecho 08/12- LVEF 50-54%, left pleural effusionintolerant of statin, will consider nonstatin med such as Repatha or Nexletol outpatientLE edema subsided , DC PO lasix d/t orthostatic hypotension 2. A-fib: Paroxysmal - rate controlleds/p PVI and ARISTEO amputationamiodarone 200 mg BID - taper dose prior to dischargedecrease metoprolol to 12.5 mg BID d/t soft blood pressureno need for AC since left atrial appendage was removed during CABG 3. HTN BP Supported by midodrine, up dose to 5 mg TID for orthostatic hypotensiondecrease metoprolol to 12.5 mg BID 4. AKInephrology following 5. Dizziness 2/2 orthostatic hypotensionpositive orthostatic drop in SBP >30 mmHgup midodrine to 5 mg TIDcompression stocking and abdominal binder before OOB discussed with Dr. Nini stringer, will DC lasix and re-assess need for it tomorrow at 1335 at 1402 RPT #:[id number] OF REPORTPRProgress [id number]:09:00G.[id number] for patient [id number]:35:49 [facility] 2022-08-22 08:52:00 [id number] WnPfwPfn+Kb1E6EPZFUYFO7MDgMbewssnw/qb [id number]:52:00 [facility] HospitalRehab Progress NoteREPORT#:[id number] REPORT STATUS: SignedDATE:08/22/22 TIME: 851 PATIENT: BRENNAN AHN UNIT #: [id number]#: [id number] ROOM[facility]ED: [facility]DOB: [birth year] AGE: 82 SEX: M ATTEND: Arthur Fuentes [facility] AUTHOR: Arthur Fuentes MD * ALL edits or amendments must be made on the electronic/computer document * SubjectiveChief complaint:Rehab follow-upComplaint of dysuriaNADEating+ BMDenies MORA/N/V/D/CP14 systems reviewed and neg. except that above.History of present illness:82-year-old male with PMH of Alzheimer's dementia, CKD, HTN, atrial fibrillation, history of SVT/ablation who was transferred to [facility] ED after being foundto have multivessel coronary artery disease. Patient initially with was at homeand developed chest pains. [facility] which revealed multivessel CAD. Patient evaluated here by cardiothoracic surgery and underwent CABG x5 on 08/10. Patient with postoperative anemia and significant impairment in mobility. Pt is progressing slowly with therapy d/t weakness, self care deficit, decreased endurance and balance, and decreased functional mobility. Pt requiring acute inpt rehab for multidisciplinary team of nursing, therapy, and physicians. Pt is willing and able to participate in 3 hr/day inpt rehab to d/c home safely. Daughter states pt's prior level of function was independent. Currently patient has generalizedweakness. He lives by himself in a one-step up house. He denies any shortness of breath, nausea, vomiting, fever, chills. Denies chest pain. He is complaining of some constipation. He tells me that is in the process of sellinghis home. Preadmission screen was completed. Patient admitted to IRF. Objective GeneralVS:Vital Signs: Date Time Temp Pulse Resp B/P B/P Pulse O2 O2 Flow FiO2 Mean Ox Delivery Rate 08/23 0747 79 91/59 69.8 90 08/23 0745 77 107/64 78.3 95 08/23 0731 66 126/64 84.9 96 08/22 0510 73 16 98/62 74.2 95 08/22 0509 79 16 85/47 59.6 95 08/22 0508 64 16 105/59 74.4 94 08/22 0503 97.7 70 16 128/73 91.2 94 08/22 0002 97.7 67 18 128/76 93.5 96 08/21 1847 98.1 79 16 111/68 82.7 98 08/21 1607 97.5 69 18 137/76 96.0 97 Room air 08/21 1154 85 124/73 90.0 98 08/21 1133 60 102/62 75.3 08/21 1126 88 130/80 96.4 PATIENT WEIGHT: Weight (lb): 221Weight (oz): 9.03Weight (kg): 100.500 Medications:Active Meds + DC'd Last 24 HrsPhenazopyridine HCl (PYRIDIUM) 200 MG BID MEALS PO Phenazopyridine HCl (PYRIDIUM) 200 MG ONCE ONE PO (DC) Midodrine (PROAMATINE) 5 MG BID 9A 5P PO Furosemide (LASIX) 40 MG Q12H PO Duloxetine HCl (CYMBALTA) 60 MG BEDTIME PO Ezetimibe (ZETIA) 10 MG DAILY PO Amiodarone HCl (CORDARONE) 200 MG BID PO Aspirin (ASPIRIN) 81 MG DAILY PO Clopidogrel Bisulfate (Plavix) 75 MG DAILY PO Cyanocobalamin (Vitamin B-12 500 mcg tab) 500 MCG DAILY PO Ferrous Sulfate (FERROUS SULFATE) 325 MG DAILY PO Polyethylene Glycol (MIRALAX) 17 GM DAILY PO Pantoprazole (PROTONIX) 40 MG DAILY@0600 PO Budesonide (PULMICORT RESPULES) 0.5 MG RTBID INH Formoterol Fumarate (PERFOROMIST) 20 MCG RTBID NEB Docusate Sodium (COLACE) 100 MG BID PO Ipratropium [place] (ATROVENT) 500 MCG RTQ6H INH Metoprolol Tartrate (LOPRESSOR) 25 MG Q12HR PO Sennosides (Senna Lax 8.6 MG TABLET) 17.2 MG BEDTIME PO Hydralazine HCl (APRESOLINE) 10 MG Q6H PRN PRN IV Acetaminophen (TYLENOL) 650 MG Q4H PRN PRN PO Ipratropium [place] (ATROVENT) 500 MCG RTQ2H PRN PRN INH Melatonin (Melatonin) 6 MG BEDTIME PRN PO Ondansetron HCl (ZOFRAN ODT) 4 MG TID PRN PRN SL Physical ExamGeneral appearance: alert, awake, no acute distressPsych: alert, normal affect, oriented x 3HEENT: anicteric, mucosal membranes moist, pupils reactive to light, sclera clearNeck: non-tender, supple, no JVDCardiovascular: irregular rhythm, S1/S2, cap refill wnl, pulses intactRespiratory: diminished breath sounds, on oxygen, aerating wellAbdomen: bowel sounds present, non-distended, soft, non-tenderSkin: dry, normal temperature, no rash, bruising R thigh, mild L thigh, BUE, R hand Sl tender/edema, sternum incision RSH site CDIMusculoskeletal - general: Musculoskeletal - general: OA changes, normal tone, no swelling, Moves all 4 exts AG, calves NT, no cords, Homans negNeuro/TEAROOM HOST/HOSTESS: alert, oriented X 3, CNII-XII intact, normal speech, no motor deficits, no sensory deficits ResultsFindings/Data:Laboratory Tests: 08/22 08/21 0700 1200 Chemistry Sodium (134 - 147 mEq/L) 137 Potassium (3.4 - 5.0 mEq/L) 4.2 Chloride (100 - 108 mEq/L) 100 Carbon Dioxide (21 - 33 mEq/l) 31 Anion Gap (0 - 20) 10 BUN (7 - 18 mg/dL) 35 H Creatinine (0.6 - 1.3 mg/dL) 2.2 H Glomerular Filtr Rate (70 - 80) 29.5 L Glucose (70 - 110 mg/dL) 100 Calcium (8.0 - 10.5 mg/dL) 9.2 Ionized Calcium [place] (1.09 - 1.30 MMOL/L) 1.14 Urines Urine Color (YEL/STRAW) YELLOW Urine Appearance (CLEAR) CLEAR Urine pH (5.0 - 7.0) 5.0 Ur Specific [place] (1.005 - 1.030) 1.011 Urine Protein (NEGATIVE) NEGATIVE Urine Glucose (UA) (NEGATIVE) NEGATIVE Urine Ketones (NEGATIVE) NEGATIVE Urine Blood (NEGATIVE) NEGATIVE Urine Nitrite (NEGATIVE) NEGATIVE Urine Bilirubin (NEGATIVE) NEGATIVE Urine Urobilinogen (0.2 - 1.0 mg/dL) 0.2 Ur Leukocyte Esterase (NEGATIVE) NEGATIVE Urine RBC (0 - 3 RBC/HPF) 0-3 Urine WBC (0 - 3 WBC/HPF) 0-3 Ur Squamous Epith Cells (NONE SEEN /HPF) 0-5 Urine Bacteria (NONE SEEN /HPF) TRACE Hyaline Casts (NONE SEEN /LPF) 6-10 Urine Mucus (NONE SEEN /LPF) TRACE Diagnosis, Assessment PlanProblem List/A P: 1. CAD (coronary artery disease) 2. Afib 3. HTN (hypertension) 4. S/P CABG x 5 5. Impaired functional mobility, balance, gait, and endurance Free Text A P:Assessment:Multivessel CAD08/10: S/p CABG x5-Dr. Lind-fib s/p a LAAEndoscopic RGSV harvest08/16: Echo-EF 50-54%, small pericardial effusionSmall bilateral pleural effusions.Muscle weakness Unsteady gaitAlzheimer's dementia (as per family), poor memoryPostoperative anemiaAKI on CKDHTNImpairment in self-care, ADLs and functional mobility Plan:-Continue PT/OT-Case management for safe discharge planning.-Decubitus prevention-protective hydrating lotion-turn every 2 kejsl-vyatmow-Odxwg program-MiraLAX, senna-Nutrition, monitor the patient's p.o. intake, check albumin 3.5 and prealbumin 14.3, dietary consult, protein supplements. Cardiac diet. BMI above normal parameters. Working with dietary, follow up with PCP-Strict fall and safety precaution-DVT ozwdqjxwudh-FHGo-WG prophylaxis on Protonix-CAD on Plavix and aspirin, intolerant to statins-Pulmonary toilet frequent I-S, nebs, wean O2-Early mobilization-OOB to chair-Work on bed mobility, transfer training, ADLs, pre-gait and gait exercises as tolerable. -Increase endurance and strength-Pain management-Postop care as per CVS-Monitor telemetry-Cardiology on case-LADARIUS as per nephrology-Dementia/confusion-Higher level of nursing care and monitoring for safety-Strict sternal precautions-patient with poor carryover of sternal precautions-Monitor sites of bruising and right hand pain-from previous phlebotomy sites-nosigns of infection-Labs reviewed-WBC normal, hemoglobin 9.1, 8.9, platelets stable, creatinine 1.9, 2.2, magnesium normal, HgbA1C 5.2. -Anemia-vitamin B12 and ferrous sulfate-Advance therapies as tolerable -Orthostasis/dizziness-diuretics reduced-midodrine added-use ENZO hose and abdominal binder when out of jcv-xxhtkgn-Dyqkgcb tolerating treatment sessions fair and slowly progressing towards his goals. Patient orthostatic and symptomatic recovers with seated rest breaks. Patient using ENZO hose and abdominal binder. Blood pressure sitting 130/80, standing 102/60, no carryover with sternal precautions.-Remove sutures x2 from lower wecgl-Lodxyr-cz with PCP for dementia kkpmdanirb-Wxnwjyc-QO negative-continue with Cphjsvtx-hnndrud-Mmiz conference Progress: GAIT TRAINING: PATIENT AMBULATED 80', 150' MIN A FOR STEADYING. VC FOR CORRECT RW PLCMT AND TO LOOK UP. PT WITH INCREASED UNSTEADYINESS WITH LONGER DISTANCES DUETO ORTHOSTATIC BP AND SYMPTOMATIC. RECOVERS WITH SEATED RB. 10' UNEVEN WITH RW MOD A FOR SAFETY. PM RPlease see team note.Plan and goals discussed with the patient. I agree with the teams findingELOS: [08/21]WL-kwtf-tvofhzxy livingDME-bedside commode, rolling walker Total time was 35 minutes > 50% with patient performing physical examination, discussing with patient about team conference, discharge plans, sternal precautions, plan of care, goals, therapies, progress, medications, labs. All questions answeredOrders: Procedure Date/time Status CARDIAC DIET 08/22 D Active NEB TREATMENT SUBSQ 08/22 0534 Active NEB TREATMENT SUBSQ 08/21 6916 Active Consultants: cardiology, cardiovascular surgery, hospitalist, nephrologyRehab attestation:Face to face exam completed. Treatment plan discussed with patient. Meets continued stay criteria. Agree with interdisciplinary treatment plan. at 1328 RPT #:[id number] OF REPORTPRProgress [id number]:52:00G.[id number] for patient sjpoXLDAOFJGPHRBXA5585-97-34F36:29:07 [facility] 2022-08-21 19:54:00 [id number] boJN/1Yzb4E8HrRt3P48/BnLxRImiV5Mh8J5z n/[id number]:54:00 [facility] ([facility])Nephrology Progress NoteREPORT#:[id number] REPORT STATUS: SignedDATE:08/21/22 TIME: 1953 PATIENT: BRENNAN AHN UNIT #: [id number]#: [id number] [address] AGE: 82 SEX: M ATTEND: Arthur Fuentes [facility] AUTHOR: Maura Terrazas MD * ALL edits or amendments must be made on the electronic/computer document * SubjectiveChief complaint:chest painHPI:82-year-old male known to have hypertension, atrial fibrillation, supraventricular tachycardia with requiring ablation presenting with multivesselcardiovascular disease and he underwent CABG 07/13/2022. He endorsed having kidney issues in the past and seeing a specialist managers at [place] but his kidney function had been stable since then.He developed oliguria,LADARIUS and hypervolemia post CABG but had now improved and was transferred to rehab. 08/21Patient appearing comfortable,denying all systemic review including dizziness. Objective GeneralVS/I O:Vital Signs: Date Time Temp Pulse Resp B/P B/P Pulse O2 O2 Flow FiO2 Mean Ox Delivery Rate 08/22 1128 36.9 72 18 132/71 91.2 97 Room air 08/22 1024 36.4 82 103/65 77.4 96 Room air 08/22 0847 79 91/59 69.8 90 08/22 0845 77 107/64 78.3 95 08/22 0831 66 126/64 84.9 96 08/22 0510 73 16 98/62 74.2 95 08/22 0509 79 16 85/47 59.6 95 08/22 0508 64 16 105/59 74.4 94 08/22 0503 36.5 70 16 128/73 91.2 94 08/22 0002 36.5 67 18 128/76 93.5 96 08/21 1847 36.7 79 16 111/68 82.7 98 08/21 1607 36.4 69 18 137/76 96.0 97 Room air 24 hour I O ending at 0700: 08/22 0700 08/21 1900 Intake Total Output Total 300 800 Balance -300 -800 Number 1 0 Incontinent Voids Number Voids 3 4 Output, Urine 300 800 PATIENT WEIGHT: Weight (lb): 221Weight (oz): 9.03Weight (kg): 100.500 Physical ExamGeneral appearance: alert, awake, orientedHead/eyes: atraumatic, clear cornea, EOMIENT: moist mucous membranes, normal noseNeck: no JVD, no masses or swellingCardiovascular: normal heart sounds, regular rate and rhythmRespiratory: aerating well, clear to auscultationAbdomen: non-tender, softGenitourinary: no bladder distention, no flank painExtremities: pitting edema, no gangrene, no swelling Diagnosis, Assessment PlanFree Text A P:82-year-old male known to have hypertension, atrial fibrillation, supraventricular tachycardia with requiring ablation presenting with multivesselcardiovascular disease and he underwent CABG 07/13/2022. Transferred to rehab for therapy. Nephrology following for: 1. Acute kidney injury: Most likely prerenal as he recently had surgery. Resolving with better hemodynamics. 2. Hypervolemia:Patient at high risk of volume overload so would reccommend lasix PO .He recently developed orthostasis so dose reduced to 40 PO daily. 3. Electrolytes: His electrolytes appear to be in normal range plan is to monitor and replace as needed. 4. HTN:Controlled with current medications.Plan to continue same.He develops orthostasis so medication doses minimised. 08/21 1. Acute kidney injury: Most likely prerenal as he recently had surgery. Resolving with better hemodynamics.His kidney function was stable plan was to monitor closely. 2. Hypervolemia:Patient at high risk of volume overload so would reccommend lasix PO .He recently developed orthostasis so dose reduced to 40 PO daily. Plan to increase lasix to Q12H and add midodrine for hypotension,patient is not dizzy anymore and he was tolerating Lasix at current dose. Plan was to monitor input and output closely. 3. Electrolytes: His electrolytes appear to be in normal range plan is to monitor and replace as needed. 4. HTN:Currently he develops orthostatic hypotension so not on any medications besides lasix and metoprolol. He was requiring midodrine to keep his blood pressures above 100 systolic.Consultants: cardiology, cardiovascular surgery, hospitalist, nephrology at 1413 RPT #:[id number] OF REPORTPRProgress [id number]:54:00G.[id number] for patient [id number]-47J10:13:16 [facility] 2022-08-21 15:18:00 [id number] gCmAdh3nzcW1lBPHJgrJeDDBzdTPHnqFSP5L+ [id number]:18:00 [facility] HospitalInternal [facility] Prog. NoteREPORT#:[id number] REPORT STATUS: SignedDATE:08/21/22 TIME: 1517 PATIENT: BRENNAN AHN UNIT #: [id number]#: [id number] [address] AGE: 82 SEX: M ATTEND: Arthur Fuentes [facility] AUTHOR: Devin Fox DO * ALL edits or amendments must be made on the electronic/computer document * SubjectiveChief complaint:pt s c/o . now in rehab Review of SystemsAll systems rev neg: except as marked Objective GeneralVS/I O:Vital Signs Date Temp Pulse Resp B/P B/P Mean Pulse Ox FiO2 08/20-08/21 97.5-97.7 59-88 17-18 102-130/57-80 75.3-96.4 95-98 Last Documented: Result Date Time Pulse Ox 98 08/21 1154 B/P 124/73 08/21 1154 B/P Mean 90.0 08/21 1154 Pulse 85 08/21 1154 O2 Delivery Room air 08/21 0713 Temp 97.7 08/21 0713 Resp 18 08/21 0713 FiO2 21 08/18 2124 24 hour I O ending at 0700: 08/21 0700 08/20 1900 Intake Total 730 Output Total 600 550 Balance -600 180 Intake, Oral 730 Number 1 1 Incontinent Voids Number Voids 2 1 Output, Urine 600 550 PATIENT WEIGHT: Weight (lb): 221Weight (oz): 9.03Weight (kg): 100.500 Medications:Active Meds + DC'd Last 24 HrsPhenazopyridine HCl (PYRIDIUM) 200 MG BID MEALS PO Phenazopyridine HCl (PYRIDIUM) 200 MG ONCE ONE PO (DC) Midodrine (PROAMATINE) 5 MG BID 9A 5P PO Furosemide (LASIX) 40 MG Q12H PO Duloxetine HCl (CYMBALTA) 60 MG BEDTIME PO Ezetimibe (ZETIA) 10 MG DAILY PO Amiodarone HCl (CORDARONE) 200 MG BID PO Aspirin (ASPIRIN) 81 MG DAILY PO Clopidogrel Bisulfate (Plavix) 75 MG DAILY PO Cyanocobalamin (Vitamin B-12 500 mcg tab) 500 MCG DAILY PO Ferrous Sulfate (FERROUS SULFATE) 325 MG DAILY PO Polyethylene Glycol (MIRALAX) 17 GM DAILY PO Pantoprazole (PROTONIX) 40 MG DAILY@0600 PO Budesonide (PULMICORT RESPULES) 0.5 MG RTBID INH Formoterol Fumarate (PERFOROMIST) 20 MCG RTBID NEB Docusate Sodium (COLACE) 100 MG BID PO Ipratropium [place] (ATROVENT) 500 MCG RTQ6H INH Metoprolol Tartrate (LOPRESSOR) 25 MG Q12HR PO Sennosides (Senna Lax 8.6 MG TABLET) 17.2 MG BEDTIME PO Hydralazine HCl (APRESOLINE) 10 MG Q6H PRN PRN IV Acetaminophen (TYLENOL) 650 MG Q4H PRN PRN PO Ipratropium [place] (ATROVENT) 500 MCG RTQ2H PRN PRN INH Melatonin (Melatonin) 6 MG BEDTIME PRN PO Ondansetron HCl (ZOFRAN ODT) 4 MG TID PRN PRN SL Physical ExamGeneral appearance: alert, awake, orientedHead/Eyes: EOMI, PERRLANeck: non-tender, no JVDCardiovascular: normal heart sounds, regular rate rhythmRespiratory: aerating well, clear to auscultationAbdomen: non-tender, normal bowel soundsExtremities: Extremities: no cyanosis, no edemaNeuro/TEAROOM HOST/HOSTESS: alert, oriented x 3, CNII-XII intact ResultsFindings/Data:Laboratory Tests 08/21/22529:[Embedded Image Not Available]Laboratory Tests 08/21 529 Chemistry Sodium (134 - 147 mEq/L) 141 Potassium (3.4 - 5.0 mEq/L) 4.2 Chloride (100 - 108 mEq/L) 104 Carbon Dioxide (21 - 33 mEq/l) 30 Anion Gap (0 - 20) 12 BUN (7 - 18 mg/dL) 33 H Creatinine (0.6 - 1.3 mg/dL) 2.2 H Glomerular Filtr Rate (70 - 80) 29.5 L Glucose (70 - 110 mg/dL) 98 Calcium (8.0 - 10.5 mg/dL) 9.2 Albumin (3.4 - 5.0 g/dL) 3.50 Prealbumin (16.0 - 40.0 mg/dL) 14.3 L Laboratory Tests 08/21 529 Hematology WBC (4.5 - 11.0 x10 3/uL) 9.4 RBC (4.00 - 5.60 x10 6/uL) 2.96 L Hgb (12.5 - 16.9 g/dL) 8.9 L Hct (37.5 - 50.7 %) 28.5 L MCV (81.0 - 99.0 fL) 96.3 MCH (27.0 - 33.0 pg) 30.1 MCHC (33.0 - 37.0 g/dL) 31.2 L RDW (11.5 - 14.5 %) 14.9 H Plt Count (150 - 400 x10 3/uL) 444 H MPV (7.0 - 9.0 fL) 9.6 H Neut % (Auto) (56.0 - 77.0 %) 73.3 Lymph % (Auto) (14.0 - 32.0 %) 9.9 L [place] % (Auto) (4.8 - 9.0 %) 8.2 Eos % (Auto) (0.3 - 3.7 %) 7.0 H Baso % (Auto) (0.0 - 2.0 %) 0.6 Neut # (Auto) (2.0 - 7.6 x10 3/uL) 6.91 Lymph # (Auto) (1.0 - 3.8 x10 3/uL) 0.93 L [place] # (Auto) (0.1 - 0.8 x10 3/uL) 0.77 Eos # (Auto) (0.0 - 0.2 x10 3/uL) 0.66 H Baso # (Auto) (0.0 - 0.2 x10 3/uL) 0.06 Abs Immat Gran (auto) (0.00 - 0.03 x10 3/uL) 0.09 H Add Manual Diff NO Immature Gran % (0.0 - 2.0 %) 1.0 Nucleated RBC % (0 - 0 %) 0.0 Nucleated RBCs # (Man) (0.0 - 0.1 x10 3/uL) 0.00 Laboratory Tests 08/21 1200 Urines Urine Color (YEL/STRAW) YELLOW Urine Appearance (CLEAR) CLEAR Urine pH (5.0 - 7.0) 5.0 Ur Specific [place] (1.005 - 1.030) 1.011 Urine Protein (NEGATIVE) NEGATIVE Urine Glucose (UA) (NEGATIVE) NEGATIVE Urine Ketones (NEGATIVE) NEGATIVE Urine Blood (NEGATIVE) NEGATIVE Urine Nitrite (NEGATIVE) NEGATIVE Urine Bilirubin (NEGATIVE) NEGATIVE Urine Urobilinogen (0.2 - 1.0 mg/dL) 0.2 Ur Leukocyte Esterase (NEGATIVE) NEGATIVE Urine RBC (0 - 3 RBC/HPF) 0-3 Urine WBC (0 - 3 WBC/HPF) 0-3 Ur Squamous Epith Cells (NONE SEEN /HPF) 0-5 Urine Bacteria (NONE SEEN /HPF) TRACE Hyaline Casts (NONE SEEN /LPF) 6-10 Urine Mucus (NONE SEEN /LPF) TRACE Diagnosis, Assessment PlanHospital course to date:82-year-old male with past medical history of hypertension, atrial fibrillation,supraventricular tachycardia status post ablation who was admitted with reports of multivessel coronary artery disease found on a cardiac catheterization done at [facility]. Patient was transferred to [facility] for CABG. He underwent YGWLf4v. 1. Coronary artery disease-Status post CABG x5, ALAA, PVI-Continue metoprolol, Plavix, aspirin 2. Atrial fibrillation-Continue po amiodarone for rate control- taper AMIO per cards-Continue metoprolol-Monitor and review telemetry 3. Debility-.-PT/OT- PMR- Inpt Rehab 4. ARF- Trend cr 1.3-1.9-2.2-2.0-1.9- post op, post lasix therefore likely pre-renal- baseline CKD is suspected- nephro consulted 5. anemia- acute, post op expecteed- monitor and transfuse if hg <7- cont po Iron- Trend Hg 9.1 6. Delirium-Likely due to sundowning-Monitor closely-Patient is neurologically intact dispo: INPT REHABtotal time spent 35mins Consultants: cardiology, cardiovascular surgery, hospitalist, nephrology Quality: Gen Med Crit Care Current MedicationsCurrent medication review:I attest that the foregoing medication list in the medical record is true, accurate, and complete to the best of my knowledge. Advanced Care Plan 65 or OlderDiscussed with: patientDiscussion included: code status at 0917 RPT #:[id number] OF REPORTPRProgress [id number]:18:[id number] for patient [id number]:17:32 [facility] 2022-08-21 12:53:00 [id number] fcWe8Fvp7cmOl/fn4dRma/dBIrC2AMlUWMX/c [id number]:53:00 [facility])Cardiothoracic Surgery ProgREPORT#:[id number] REPORT STATUS: SignedDATE:08/21/22 TIME: 1253 PATIENT: BRENNAN AHN UNIT #: [id number]#: [id number] [address] AGE: 82 SEX: M ATTEND: Arthur Fuentes [facility] AUTHOR: Shiloh Pimentel BUILDING PRINCIPAL * ALL edits or amendments must be made on the electronic/computer document * GeneralStatus post:CABG PVI SubjectiveChief complaint:Follow up CABG Comments:Doing well Review of SystemsConstitutional:Denies: chills, fever, malaise. ENT:Denies: sore throat. Respiratory:Denies: hemoptysis, SOB. GI:Denies: nausea, vomiting. Heme:Denies: bleeding. All systems rev neg: except as marked Objective GeneralVS/I OLast Documented: Result Date Time Pulse Ox 98 08/21 1154 B/P 124/73 08/21 1154 B/P Mean 90.0 08/21 1154 Pulse 85 08/21 1154 O2 Delivery Room air 08/21 0713 Temp 97.7 08/21 0713 Resp 18 08/21 0713 FiO2 21 08/19 2123 24 hour I O ending at 0700: 08/21 0700 08/20 1900 Intake Total 730 Output Total 600 550 Balance -600 180 Intake, Oral 730 Number 1 1 Incontinent Voids Number Voids 2 1 Output, Urine 600 550 PATIENT WEIGHT: Weight (lb): 221Weight (oz): 9.03Weight (kg): 100.500 Physical ExamGeneral appearance: alert, oriented, mental status normal, no respiratory distressWound/incision: Location:sternum HEENT: anictericCardiovascular: normal heart sounds, regular rate rhythmRespiratory: aerating well, clear to auscultation, symmetric expansion, no distressAbdomen: soft, non-tender, no distentionExtremities: moves allNeuro/TEAROOM HOST/HOSTESS: alert, oriented X 3, normal speech, no motor deficitsPsychiatry: normal affect, normal mood Current MedicationsMedications:Active Meds + DC'd Last 24 HrsPhenazopyridine HCl (PYRIDIUM) 200 MG BID MEALS PO Phenazopyridine HCl (PYRIDIUM) 200 MG ONCE ONE PO (DC) Midodrine (PROAMATINE) 5 MG BID 9A 5P PO Furosemide (LASIX) 40 MG Q12H PO Duloxetine HCl (CYMBALTA) 60 MG BEDTIME PO Ezetimibe (ZETIA) 10 MG DAILY PO Amiodarone HCl (CORDARONE) 200 MG BID PO Aspirin (ASPIRIN) 81 MG DAILY PO Clopidogrel Bisulfate (Plavix) 75 MG DAILY PO Cyanocobalamin (Vitamin B-12 500 mcg tab) 500 MCG DAILY PO Ferrous Sulfate (FERROUS SULFATE) 325 MG DAILY PO Polyethylene Glycol (MIRALAX) 17 GM DAILY PO Pantoprazole (PROTONIX) 40 MG DAILY@0600 PO Budesonide (PULMICORT RESPULES) 0.5 MG RTBID INH Formoterol Fumarate (PERFOROMIST) 20 MCG RTBID NEB Docusate Sodium (COLACE) 100 MG BID PO Ipratropium [place] (ATROVENT) 500 MCG RTQ6H INH Metoprolol Tartrate (LOPRESSOR) 25 MG Q12HR PO Sennosides (Senna Lax 8.6 MG TABLET) 17.2 MG BEDTIME PO Hydralazine HCl (APRESOLINE) 10 MG Q6H PRN PRN IV Acetaminophen (TYLENOL) 650 MG Q4H PRN PRN PO Ipratropium [place] (ATROVENT) 500 MCG RTQ2H PRN PRN INH Melatonin (Melatonin) 6 MG BEDTIME PRN PO Ondansetron HCl (ZOFRAN ODT) 4 MG TID PRN PRN SL ResultsFindings/Data:Laboratory Tests 08/21 0530 Chemistry Sodium (134 - 147 mEq/L) 141 Potassium (3.4 - 5.0 mEq/L) 4.2 Chloride (100 - 108 mEq/L) 104 Carbon Dioxide (21 - 33 mEq/l) 30 Anion Gap (0 - 20) 12 BUN (7 - 18 mg/dL) 33 H Creatinine (0.6 - 1.3 mg/dL) 2.2 H Glomerular Filtr Rate (70 - 80) 29.5 L Glucose (70 - 110 mg/dL) 98 Calcium (8.0 - 10.5 mg/dL) 9.2 Albumin (3.4 - 5.0 g/dL) 3.50 Prealbumin (16.0 - 40.0 mg/dL) 14.3 L Laboratory Tests 08/21 0530 Hematology WBC (4.5 - 11.0 x10 3/uL) 9.4 RBC (4.00 - 5.60 x10 6/uL) 2.96 L Hgb (12.5 - 16.9 g/dL) 8.9 L Hct (37.5 - 50.7 %) 28.5 L MCV (81.0 - 99.0 fL) 96.3 MCH (27.0 - 33.0 pg) 30.1 MCHC (33.0 - 37.0 g/dL) 31.2 L RDW (11.5 - 14.5 %) 14.9 H Plt Count (150 - 400 x10 3/uL) 444 H MPV (7.0 - 9.0 fL) 9.6 H Neut % (Auto) (56.0 - 77.0 %) 73.3 Lymph % (Auto) (14.0 - 32.0 %) 9.9 L [place] % (Auto) (4.8 - 9.0 %) 8.2 Eos % (Auto) (0.3 - 3.7 %) 7.0 H Baso % (Auto) (0.0 - 2.0 %) 0.6 Neut # (Auto) (2.0 - 7.6 x10 3/uL) 6.91 Lymph # (Auto) (1.0 - 3.8 x10 3/uL) 0.93 L [place] # (Auto) (0.1 - 0.8 x10 3/uL) 0.77 Eos # (Auto) (0.0 - 0.2 x10 3/uL) 0.66 H Baso # (Auto) (0.0 - 0.2 x10 3/uL) 0.06 Abs Immat Gran (auto) (0.00 - 0.03 x10 3/uL) 0.09 H Add Manual Diff NO Immature Gran % (0.0 - 2.0 %) 1.0 Nucleated RBC % (0 - 0 %) 0.0 Nucleated RBCs # (Man) (0.0 - 0.1 x10 3/uL) 0.00 Laboratory Tests 08/21 1200 Urines Urine Color (YEL/STRAW) YELLOW Urine Appearance (CLEAR) CLEAR Urine pH (5.0 - 7.0) 5.0 Ur Specific [place] (1.005 - 1.030) 1.011 Urine Protein (NEGATIVE) NEGATIVE Urine Glucose (UA) (NEGATIVE) NEGATIVE Urine Ketones (NEGATIVE) NEGATIVE Urine Blood (NEGATIVE) NEGATIVE Urine Nitrite (NEGATIVE) NEGATIVE Urine Bilirubin (NEGATIVE) NEGATIVE Urine Urobilinogen (0.2 - 1.0 mg/dL) 0.2 Ur Leukocyte Esterase (NEGATIVE) NEGATIVE Urine RBC (0 - 3 RBC/HPF) 0-3 Urine WBC (0 - 3 WBC/HPF) 0-3 Ur Squamous Epith Cells (NONE SEEN /HPF) 0-5 Urine Bacteria (NONE SEEN /HPF) TRACE Hyaline Casts (NONE SEEN /LPF) 6-10 Urine Mucus (NONE SEEN /LPF) TRACE Quality: Trauma Gen Surg Advanced Care Plan 65 or OlderDiscussed with: patientDiscussion included: code status Current MedicationsCurrent medication review:I attest that the foregoing medication list in the medical record is true, accurate, and complete to the best of my knowledge. Diagnosis, Assessment PlanHospital course to date:Hospital course to date:82 year old with PMH of hypertension, atrial fibrillation, On Eliquis, Hx of SVT ablation 20 years ago transferred to [facility] with new findings of multi-vessel CAD. He reports he was woken from Sleep on Sunday AM with COmplaints of chest pains. EMS aas called and patient was taken to [facility]. He underwent LHC and found to have multi-vessel CAD by Dr Sanchez. Patient was transferred to [facility] for CABG. Patient lives independently. Daughter is at bedside. Patient reports last dose of Elliquis was Sunday AM. Echo was done at [facility] showing EF 55%, Mild MR, Mild AI, mild LVH. According to his records, he has a hx of Chronic kidney disease with baseline Creatine reportedly 1.5. He does report he has seen a renal MD in the past. Assessment/ Plan1) CAD, Mutli-vessel2) hypertension Continue BBLKR Add Norvasc 5 mg3) Atrial fibrillation. Last dose of Eliquis Sunday AM Obtain EKG4) BPH Continue flomax Workup for CABG underway. Patient was seen and examined by Dr Hurd. Coronary artery bypass surgery was discussed with the patient. The risk of the operation,including the STS score, cristian of blleding, infection, heart attack, stroke, Tracheostomy etc discussed with the patient. CT chest, carotid US, Vein mapping ordered. 08/11/22POD 1 s/p CABG x 5 (NGUYEN-LAD, SVG-Olga Lidia, SVG-OM, SVG-LPLA, SVG-PDA), PVI, ALAA, EVH (RGSV)Patient hemodynamically stable this morning, having episodes of vagal response and BP drops 20 points, SR and sinus arrythmnia noted on monitoring analyst, V epicardial wires on backup rate of 50Amiodarone bolus and dripKeep MS chest tube and monitor outputs, DC LP chest tube after ambulationMinimal oxygen requirements on 2l nasal cannula, encourage deep breathing and I-S useCXR and labs reviewedPain managementGlycemic control on insulin dripCardiac diet, nutritional supplementsBowel regimen, + gasStrict I Os, daily weights, albmuin x 1 given for decreased UOP- monitor hourlySCDs for DVT and PPI for GI prophylaxisPT/OTMonitor patient closely in CVICU, continue supportive carePatient seen with Dr. Hurd, plan of care discussed with ICU team. 08/12 Alert and oriented, up in the chairRemains on amiodarone drip for A-fibWean dopamine offChest x-ray reviewed. Breathing comfortably on room airCreatinine increased to 1.9, urine output 1.5 L last night after the boluses of LasixRepeat renal panel today show creatinine 2.2. Nephrology consulted, hold off onadditional LasixReplace electrolytesEncourage I-S and mobilizationGlycemic controlledKeep in CVICU for close monitoringPatient seen and plan reviewed with Dr Piper, Dr Kirkpatrick, [facility] and multidisciplinaryteam 08/13 Intermittently confused. Continue delirium precautionsMinimal O2 requirements, wean O2 as toleratedAllow for permissive hypertension as urine output improved with higher blood pressureMonitor renal functionEncourage p.o. intake, bowel regimenRemains in A-fib, heart rate fairly controlled. Amiodarone drip at 0.5Discontinue mediastinal chest tubeGlycemic controlKeep in CVICU for close monitoring.Patient seen and plan reviewed with Dr Kirkpatrick, [facility] multidisciplinary teamFamily updated at the bedside 08/14 Patient is alert and oriented, delirium precautionsO2 requirements, encourage I-SPermissive hypertension for better renal perfusionCreatinine trending down, good urine output. Hold Lasix for nowEncourage p.o. intake, bowel regimenElectrolyte replacement as neededKeep in CVICU todayPlan for rehab. Awaiting insurance approvalPatient was seen and plan reviewed with Dr. Kirkpatrick, [facility] and multidisciplinary team 08/15 No major events overnight Resp status stable on RA. Encourage ISHD stable. Remains in A fib, HR controlled Continue PO amio, BB increased to 25 mg BID Renal function improved, good UOP Will DC pacing wires tomorrow PT/OTPlan for rehab. Awaiting insurance approvalPatient was seen and plan reviewed with Dr. Kirkpatrick, [facility] and multidisciplinary team 08/16Creatine 1.9--> 2.0- Followed by Renal. appreciate input. DE-LINED. Longo outAmbulating. UO: PO lasix today. Cardiac: Atrial fib- rate controlled. On po amio- Pacing wires removed- Echo ordered.DVT studies orderd. Respiratory: On room air. Small left pleural effsuion. GI: + BMGU: Voiding well. Renal followingDispo: Rehab when bed available. 08/17Patient resting comfortable. Seen in inpatient rehab.Ambulating well. Working with PTVoiding well. Positive bowel movements.Respiratory on room air.Cardiac: Sinus rhythm. Will decrease amiod to 200 BIDGI: + BMContinue pT/OTmaking good progress. 08/21 Patient seen in rehab Respiratory status stable on RA No changes in sternal incision. Continue sternal precautions for 6 weeks Monitor renal function. Diuresis by nephrology Encourge PO intake, bowel regimen Continue rehab Consultants: cardiology, cardiovascular surgery, hospitalist, nephrology at 1259 at 1556 RPT #:[id number] OF REPORTPRProgress [id number]:53:00G.[id number] for patient [id number]:59:44 [facility] 2022-08-21 09:39:00 [id number] 2Ax9+nv/Y7TyNWmwwOnrjigKQ/Mi0qHIpiOo/ [id number]:39:00 [facility] HospitalCardiology Progress NoteREPORT#:[id number] REPORT STATUS: SignedDATE:08/21/22 TIME: 09 PATIENT: BRENNAN AHN UNIT #: [id number]#: [id number] [place] [facility] [place]DOB: [birth year] AGE: 82 SEX: M ATTEND: Arthur Fuentes [facility] AUTHOR: Catrina Shetty AGACNP * ALL edits or amendments must be made on the electronic/computer document * SubjectiveComments:LIghtheadedness during ambulation. Objective GeneralVS/I O:24 hour I O ending at 0700: 08/21 0700 08/20 1900 Intake Total 730 Output Total 600 550 Balance -600 180 Intake, Oral 730 Number 1 1 Incontinent Voids Number Voids 2 1 Output, Urine 600 550 Vital Signs: Date Time Temp Pulse Resp B/P B/P Pulse O2 O2 Flow FiO2 Mean Ox Delivery Rate 08/21 0713 36.5 66 18 126/66 86.1 95 Room air 08/21 0000 36.4 62 17 115/69 84 98 Room air 08/20 1929 36.4 62 18 117/66 83.1 97 08/20 1601 36.4 59 17 122/57 78.4 98 Nasal cannula PATIENT WEIGHT: Weight (lb): 221Weight (oz): 9.03Weight (kg): 100.500 Medications:Active Meds + DC'd Last 24 HrsMidodrine (PROAMATINE) 5 MG BID 9A 5P PO Midodrine (PROAMATINE) 2.5 MG BID 9A 5P PO (DC) Furosemide (LASIX) 40 MG Q12H PO Duloxetine HCl (CYMBALTA) 60 MG BEDTIME PO Ezetimibe (ZETIA) 10 MG DAILY PO Amiodarone HCl (CORDARONE) 200 MG BID PO Aspirin (ASPIRIN) 81 MG DAILY PO Clopidogrel Bisulfate (Plavix) 75 MG DAILY PO Cyanocobalamin (Vitamin B-12 500 mcg tab) 500 MCG DAILY PO Ferrous Sulfate (FERROUS SULFATE) 325 MG DAILY PO Polyethylene Glycol (MIRALAX) 17 GM DAILY PO Pantoprazole (PROTONIX) 40 MG DAILY@0600 PO Budesonide (PULMICORT RESPULES) 0.5 MG RTBID INH Formoterol Fumarate (PERFOROMIST) 20 MCG RTBID NEB Docusate Sodium (COLACE) 100 MG BID PO Ipratropium [place] (ATROVENT) 500 MCG RTQ6H INH Metoprolol Tartrate (LOPRESSOR) 25 MG Q12HR PO Sennosides (Senna Lax 8.6 MG TABLET) 17.2 MG BEDTIME PO Hydralazine HCl (APRESOLINE) 10 MG Q6H PRN PRN IV Acetaminophen (TYLENOL) 650 MG Q4H PRN PRN PO Ipratropium [place] (ATROVENT) 500 MCG RTQ2H PRN PRN INH Melatonin (Melatonin) 6 MG BEDTIME PRN PO Ondansetron HCl (ZOFRAN ODT) 4 MG TID PRN PRN SL Physical ExamGeneral appearance: alert, awake, orientedNeck: non-tender, no JVDCardiovascular: CV assessment: irregularly irregular, pedal edema (trace)Respiratory: decreased breath sounds, no distressAbdomen: soft, non-tender, normal bowel sounds, no distentionGenitourinary: no flank pain, no urinary catheterLower extremity: LE assessment: edema (trace)Musculoskeletal: normal inspectionNeuro/TEAROOM HOST/HOSTESS: alertSkin: dryPsychiatry: normal affect, normal mood ResultsFindings/Data:Laboratory Tests 08/21 0530 Chemistry Sodium (134 - 147 mEq/L) 141 Potassium (3.4 - 5.0 mEq/L) 4.2 Chloride (100 - 108 mEq/L) 104 Carbon Dioxide (21 - 33 mEq/l) 30 Anion Gap (0 - 20) 12 BUN (7 - 18 mg/dL) 33 H Creatinine (0.6 - 1.3 mg/dL) 2.2 H Glomerular Filtr Rate (70 - 80) 29.5 L Glucose (70 - 110 mg/dL) 98 Calcium (8.0 - 10.5 mg/dL) 9.2 Albumin (3.4 - 5.0 g/dL) 3.50 Prealbumin (16.0 - 40.0 mg/dL) 14.3 L Laboratory Tests 08/21 0530 Hematology WBC (4.5 - 11.0 x10 3/uL) 9.4 RBC (4.00 - 5.60 x10 6/uL) 2.96 L Hgb (12.5 - 16.9 g/dL) 8.9 L Hct (37.5 - 50.7 %) 28.5 L MCV (81.0 - 99.0 fL) 96.3 MCH (27.0 - 33.0 pg) 30.1 MCHC (33.0 - 37.0 g/dL) 31.2 L RDW (11.5 - 14.5 %) 14.9 H Plt Count (150 - 400 x10 3/uL) 444 H MPV (7.0 - 9.0 fL) 9.6 H Neut % (Auto) (56.0 - 77.0 %) 73.3 Lymph % (Auto) (14.0 - 32.0 %) 9.9 L [place] % (Auto) (4.8 - 9.0 %) 8.2 Eos % (Auto) (0.3 - 3.7 %) 7.0 H Baso % (Auto) (0.0 - 2.0 %) 0.6 Neut # (Auto) (2.0 - 7.6 x10 3/uL) 6.91 Lymph # (Auto) (1.0 - 3.8 x10 3/uL) 0.93 L [place] # (Auto) (0.1 - 0.8 x10 3/uL) 0.77 Eos # (Auto) (0.0 - 0.2 x10 3/uL) 0.66 H Baso # (Auto) (0.0 - 0.2 x10 3/uL) 0.06 Abs Immat Gran (auto) (0.00 - 0.03 x10 3/uL) 0.09 H Add Manual Diff NO Immature Gran % (0.0 - 2.0 %) 1.0 Nucleated RBC % (0 - 0 %) 0.0 Nucleated RBCs # (Man) (0.0 - 0.1 x10 3/uL) 0.00 Results: labs reviewed, vital signs reviewed, rhythm personally rev'd Diagnosis, Assessment PlanPlan discussed with: patient, interdisc care team Free Text DxA P NotesFree Text DxA P Notes:82 YO male with MHX of Afib, HTN, HLD, CAD who is s/p 5 vessel CABG and PVI and ALAA. The patient is transferred to [facility] for inpatient rehabilitation. We are consulted for continuity of cardiac-related care. 1. CAD s/p CABG x 5 (NGUYEN-LAD, SVG-Olga Lidia, SVG-OM, SVG-LPLA, SVG-PDA) continue asa, BB, plavix, Zetiaecho 08/12- LVEF 50-54%, left pleural effusionintolerant of statin, will consider nonstatin med such as Repatha or Nexletol outpatientLE edema significantly improved - on PO lasix per nephro 2. A-fib: Paroxysmal - rate controlleds/p PVI and ARISTEO amputationon amiodarone 200 mg BID - taper dose prior to dischargecontinue metoprolol 25 mg BIDno need for AC since left atrial appendage was removed during CABG 3. HTN BP Supported by midodrinecontinue metoprolol 25 mg BID for HF 4. AKInephrology following 5. Dizziness with episode of hypotensioncheck orthostatic VScontinue midodrineapply compression stocking or abdominal binder before OOB may have to back off with PO Lasix Overall he is doing good. at 1252 at 1402 RPT #:[id number] OF REPORTPRProgress [id number]:39:00G.[id number] for patient [id number]:53:06 [facility] 2022-08-21 06:29:00 [id number]+rLuAR ps0paRTjzNJTYaJHyeHohSJvVk4PTthRCKAKa [id number]:29:00 [facility] ([facility])Rehab Progress NoteREPORT#:[id number] REPORT STATUS: SignedDATE:08/21/22 TIME: 628 PATIENT: BRENNAN AHN UNIT #: [id number]#: [id number] [place] [facility] [place]DOB: [birth year] AGE: 82 SEX: M ATTEND: Arthur Fuentes AUTHOR: Arthur Fuentes MD * ALL edits or amendments must be made on the electronic/computer document * SubjectiveChief complaint:Rehab follow-upComplaint of dysuriaNADEating+ BMDenies MORA/N/V/D/CP14 systems reviewed and neg. except that above.History of present illness:82-year-old male with PMH of Alzheimer's dementia, CKD, HTN, atrial fibrillation, history of SVT/ablation who was transferred to [facility] ED after being foundto have multivessel coronary artery disease. Patient initially with was at homeand developed chest pains. [facility] multivessel [facility]. Patient evaluated here by cardiothoracic surgery and underwent CABG x5 on 08/10. Patient with postoperative anemia and significant impairment in mobility. Pt is progressing slowly with therapy d/t weakness, self care deficit, decreased endurance and balance, and decreased functional mobility. Pt requiring acute inpt rehab for multidisciplinary team of nursing, therapy, and physicians. Pt is willing and able to participate in 3 hr/day inpt rehab to d/c home safely. Daughter states pt's prior level of function was independent. Currently patient has generalizedweakness. He lives by himself in a one-step up house. He denies any shortness of breath, nausea, vomiting, fever, chills. Denies chest pain. He is complaining of some constipation. He tells me that is in the process of sellinghis home. Preadmission screen was completed. Patient admitted to IRF. Objective GeneralVS:Vital Signs: Date Time Temp Pulse Resp B/P B/P Pulse O2 O2 Flow FiO2 Mean Ox Delivery Rate 08/21 0000 97.5 62 17 115/69 84 98 Room air 08/20 1929 97.5 62 18 117/66 83.1 97 08/20 1601 97.5 59 17 122/57 78.4 98 Nasal cannula 08/20 0926 86 101/63 75.6 08/20 0911 91 81/40 53.5 08/20 0907 89 105/67 79.5 08/20 0905 96 109/67 80.9 08/20 0756 94 Room air 08/20 0710 97.2 65 18 116/67 83.3 95 Room air PATIENT WEIGHT: Weight (lb): 221Weight (oz): 9.03Weight (kg): 100.500 Medications:Active Meds + DC'd Last 24 HrsMidodrine (PROAMATINE) 5 MG BID 9A 5P PO Midodrine (PROAMATINE) 2.5 MG BID 9A 5P PO (DC) Furosemide (LASIX) 40 MG Q12H PO Duloxetine HCl (CYMBALTA) 60 MG BEDTIME PO Ezetimibe (ZETIA) 10 MG DAILY PO Amiodarone HCl (CORDARONE) 200 MG BID PO Aspirin (ASPIRIN) 81 MG DAILY PO Clopidogrel Bisulfate (Plavix) 75 MG DAILY PO Cyanocobalamin (Vitamin B-12 500 mcg tab) 500 MCG DAILY PO Ferrous Sulfate (FERROUS SULFATE) 325 MG DAILY PO Polyethylene Glycol (MIRALAX) 17 GM DAILY PO Pantoprazole (PROTONIX) 40 MG DAILY@0600 PO Budesonide (PULMICORT RESPULES) 0.5 MG RTBID INH Formoterol Fumarate (PERFOROMIST) 20 MCG RTBID NEB Docusate Sodium (COLACE) 100 MG BID PO Ipratropium [place] (ATROVENT) 500 MCG RTQ6H INH Metoprolol Tartrate (LOPRESSOR) 25 MG Q12HR PO Sennosides (Senna Lax 8.6 MG TABLET) 17.2 MG BEDTIME PO Hydralazine HCl (APRESOLINE) 10 MG Q6H PRN PRN IV Acetaminophen (TYLENOL) 650 MG Q4H PRN PRN PO Ipratropium [place] (ATROVENT) 500 MCG RTQ2H PRN PRN INH Melatonin (Melatonin) 6 MG BEDTIME PRN PO Ondansetron HCl (ZOFRAN ODT) 4 MG TID PRN PRN SL Dietitian nutrition assessmentThe data set between the solid lines has been imported from the dietitian's assessment. __ BMI Calculated: 30.0Nutrition related diagnosis: Morbid obesityNutrition diagnosis details: BMI 40 or moreNutrition problem: Inadequate fluid intakeNutrition etiology: Decreased/poor appetiteNutrition signs and symptoms: Less than 75% intakeNutrition prescription: 1) Contiune w/current diet order (Caridac), if PO intake continues to be around 50%, consider swapping to regular. 2) Texture per HOSPICE SPIRITUAL CARE COORDINATOR/MD recommendationsDietitian name: Logan Spain, DIETAssessment completed: 08/17/22 Physical ExamGeneral appearance: alert, awake, no acute distressPsych: alert, normal affect, oriented x 3HEENT: anicteric, mucosal membranes moist, pupils reactive to light, sclera clearNeck: non-tender, supple, no JVDCardiovascular: irregular rhythm, S1/S2, cap refill wnl, pulses intactRespiratory: diminished breath sounds, on oxygen, aerating wellAbdomen: bowel sounds present, non-distended, soft, non-tenderSkin: dry, normal temperature, no rash, bruising R thigh, mild L thigh, BUE, R hand Sl tender/edema, sternum incision RSH site CDIMusculoskeletal - general: Musculoskeletal - general: OA changes, normal tone, no swelling, Moves all 4 exts AG, calves NT, no cords, Homans negNeuro/TEAROOM HOST/HOSTESS: alert, oriented X 3, CNII-XII intact, normal speech, no motor deficits, no sensory deficits ResultsFindings/Data:Laboratory Tests 08/21 08/21 0530 0530 Chemistry Sodium (134 - 147 mEq/L) 141 Potassium (3.4 - 5.0 mEq/L) 4.2 Chloride (100 - 108 mEq/L) 104 Carbon Dioxide (21 - 33 mEq/l) 30 Anion Gap (0 - 20) 12 BUN (7 - 18 mg/dL) 33 Creatinine (0.6 - 1.3 mg/dL) 2.2 Glomerular Filtr Rate (70 - 80) 29.5 Glucose (70 - 110 mg/dL) 98 Calcium (8.0 - 10.5 mg/dL) 9.2 Albumin (3.4 - 5.0 g/dL) Cancelled 3.50 Prealbumin (16.0 - 40.0 mg/dL) Cancelled 14.3 Hematology WBC (4.5 - 11.0 x10 3/uL) 9.4 RBC (4.00 - 5.60 x10 6/uL) 2.96 Hgb (12.5 - 16.9 g/dL) 8.9 Hct (37.5 - 50.7 %) 28.5 MCV (81.0 - 99.0 fL) 96.3 MCH (27.0 - 33.0 pg) 30.1 MCHC (33.0 - 37.0 g/dL) 31.2 RDW (11.5 - 14.5 %) 14.9 Plt Count (150 - 400 x10 3/uL) 444 MPV (7.0 - 9.0 fL) 9.6 Neut % (Auto) (56.0 - 77.0 %) 73.3 Lymph % (Auto) (14.0 - 32.0 %) 9.9 [place] % (Auto) (4.8 - 9.0 %) 8.2 Eos % (Auto) (0.3 - 3.7 %) 7.0 Baso % (Auto) (0.0 - 2.0 %) 0.6 Neut # (Auto) (2.0 - 7.6 x10 3/uL) 6.91 Lymph # (Auto) (1.0 - 3.8 x10 3/uL) 0.93 [place] # (Auto) (0.1 - 0.8 x10 3/uL) 0.77 Eos # (Auto) (0.0 - 0.2 x10 3/uL) 0.66 Baso # (Auto) (0.0 - 0.2 x10 3/uL) 0.06 Abs Immat Gran (auto) (0.00 - 0.03 x10 3/uL) 0.09 Add Manual Diff NO Immature Gran % (0.0 - 2.0 %) 1.0 Nucleated RBC % (0 - 0 %) 0.0 Nucleated RBCs # (Man) (0.0 - 0.1 x10 3/uL) 0.00 Diagnosis, Assessment PlanProblem List/A P: 1. CAD (coronary artery disease) 2. Afib 3. HTN (hypertension) 4. S/P CABG x 5 5. Impaired functional mobility, balance, gait, and endurance Free Text A P:Assessment:Multivessel CAD3/9: S/p CABG x5-Dr. Lind-fib s/p a LAAEndoscopic RGSV harvest08/16: Echo-EF 50-54%, small pericardial effusionSmall bilateral pleural effusions.Muscle weakness Unsteady gaitAlzheimer's dementiaPostoperative anemiaAKI on CKDHTNImpairment in self-care, ADLs and functional mobility Plan:-Continue PT/OT-Case management for safe discharge planning.-Decubitus prevention-protective hydrating lotion-turn every 2 qwmij-gduxthq-Xqemh program-MiraLAX, senna,-Nutrition, monitor the patient's p.o. intake, check albumin 3.5 and prealbumin 14.3, dietary consult, protein supplements. BMI above normal parameters. Working with dietary, follow up with PCP-Strict fall and safety precaution-DVT tmaqkxzgqql-EMKg-GK prophylaxis on Protonix-CAD on Plavix and aspirin, intolerant to statins-Pulmonary toilet frequent I-S, nebs, wean O2-Early mobilization-OOB to chair-Work on bed mobility, transfer training, ADLs, pre-gait and gait exercises as tolerable. -Increase endurance and strength-Pain management-Postop care as per CVS-Monitor telemetry-Cardiology on case-LADARIUS as per nephrology-Dementia/confusion-Higher level of nursing care and monitoring for safety-Appreciate consultants input-Continue current medication-Strict sternal precautions-Monitor sites of bruising and right hand pain-from previous phlebotomy sites-nosigns of infection-Labs reviewed-WBC normal, hemoglobin 9.1, 8.9, platelets stable, creatinine 1.9, 2.2, magnesium normal, HgbA1C 5.2. -Anemia-vitamin B12 and ferrous sulfate-Advance therapies as tolerable -Orthostasis/dizziness-diuretics reduced-midodrine added-use ENZO hose and abdominal binder when out of uag-gfsgsar-Zgrgszj tolerating treatment sessions fair and ambulating limited due to orthostasis. Patient requires max verbal cues to remind him of sternal precautions.-Dysuria-check UA-Team conference Progress: GAIT TRAINING: PATIENT AMBULATED 80', 50' MIN A WITH RW. PT C/O OF INCREASED DIZINESS WITH AMBULATION AND ORTHOSTATIC. BP SITTING 105/67, STANDING 81/40. BP RECOVERS WITH SEATED RB 101/60. PM RPlease see team note.Plan and goals discussed with the patient. I agree with the teams findingELOS: [ ]YS-yycx-TCZFC- Total time was 33 minutes > 50% with patient performing physical examination, discussing sternal precautions, plan of care, goals, therapies, progress, medications, labs. All questions answeredOrders: Procedure Date/time Status UA WITH CULTURE IF INDICATED 08/21 104 Active Stockings: Antiembolism 08/21 06 Active Abdominal Binder, Apply 08/21 06 Active PREALBUMIN 08/21 0530 Complete ALBUMIN 08/21 0530 Complete NEB TREATMENT SUBSQ 08/21 0326 Active NEB TREATMENT SUBSQ 08/208 Active NEB TREATMENT SUBSQ 08/19 2359 Complete NEB TREATMENT SUBSQ 08/18 2359 Complete Consultants: cardiology, cardiovascular surgery, hospitalist, nephrologyRehab attestation:Face to face exam completed. Treatment plan discussed with patient. Meets continued stay criteria. Agree with interdisciplinary treatment plan. at 1044 RPT #:[id number] OF REPORTPRProgress [id number]:29:00G.[id number] for patient pgsqYPCKWJLETPDVSV1937-94-39F78:44:54 [facility] 2022-08-20 23:34:00 [id number] qhRc/jOGw+n4WC8Ax66hGIKdjAQcqUWVcoNF2 [id number]:34:00 [facility] ([facility])Nephrology Progress NoteREPORT#:[id number] REPORT STATUS: SignedDATE:08/20/22 TIME: 2334 PATIENT: BRENNAN AHN UNIT #: [id number]#: [id number] [place] [facility] [place]: [birth year] AGE: 82 SEX: M [facility]END[facility] AUTHOR: Maura Terrazas MD * ALL edits or amendments must be made on the electronic/computer document * SubjectiveChief complaint:chest painHPI:82-year-old male known to have hypertension, atrial fibrillation, supraventricular tachycardia with requiring ablation presenting with multivesselcardiovascular disease and he underwent CABG 07/13/2022. He endorsed having kidney issues in the past and seeing a specialist managers at [place] but his kidney function had been stable since then.He developed oliguria,LADARIUS and hypervolemia post CABG but had now improved and was transferred to rehab. 08/20Patient appearing comfortable,denying all systemic review including dizziness. Objective GeneralVS/I O:Vital Signs: Date Time Temp Pulse Resp B/P B/P Pulse O2 O2 Flow FiO2 Mean Ox Delivery Rate 08/21 1847 36.7 79 16 111/68 82.7 98 08/21 1607 36.4 69 18 137/76 96.0 97 Room air 08/21 1154 85 124/73 90.0 98 08/21 1133 60 102/62 75.3 08/21 1126 88 130/80 96.4 08/21 0713 36.5 66 18 126/66 86.1 95 Room air 08/21 0000 36.4 62 17 115/69 84 98 Room air 24 hour I O ending at 0700: 08/21 0700 08/20 1900 Intake Total 730 Output Total 600 550 Balance -600 180 Intake, Oral 730 Number 1 1 Incontinent Voids Number Voids 2 1 Output, Urine 600 550 PATIENT WEIGHT: Weight (lb): 221Weight (oz): 9.03Weight (kg): 100.500 Physical ExamGeneral appearance: alert, awake, orientedHead/eyes: atraumatic, clear cornea, EOMIENT: moist mucous membranes, normal noseNeck: no JVD, no masses or swellingCardiovascular: normal heart sounds, regular rate and rhythmRespiratory: aerating well, clear to auscultationAbdomen: non-tender, softGenitourinary: no bladder distention, no flank painExtremities: pitting edema, no gangrene, no swelling Diagnosis, Assessment PlanFree Text A P:82-year-old male known to have hypertension, atrial fibrillation, supraventricular tachycardia with requiring ablation presenting with multivesselcardiovascular disease and he underwent CABG 07/13/2022. Transferred to rehab for therapy. Nephrology following for: 1. Acute kidney injury: Most likely prerenal as he recently had surgery. Resolving with better hemodynamics. 2. Hypervolemia:Patient at high risk of volume overload so would reccommend lasix PO .He recently developed orthostasis so dose reduced to 40 PO daily. 3. Electrolytes: His electrolytes appear to be in normal range plan is to monitor and replace as needed. 4. HTN:Controlled with current medications.Plan to continue same.He develops orthostasis so medication doses minimised. 08/20 1. Acute kidney injury: Most likely prerenal as he recently had surgery. Resolving with better hemodynamics.His kidney function was stable plan was to monitor closely. 2. Hypervolemia:Patient at high risk of volume overload so would reccommend lasix PO .He recently developed orthostasis so dose reduced to 40 PO daily.Plan to increase lasix to Q12H and add midodrine for hypotension,patient is not dizzy anymore and he was tolerating Lasix at current dose. Plan was to monitor input and output closely. 3. Electrolytes: His electrolytes appear to be in normal range plan is to monitor and replace as needed. 4. HTN:Currently he develops orthostatic hypotension so not on any medications besides lasix and metoprolol. He was requiring midodrine to keep his blood pressures above 100 systolic.Consultants: cardiology, cardiovascular surgery, hospitalist, nephrology at [facility] RPT #:[id number] OF REPORTPRProgress [id number]:34:00G.[id number] for patient mjgeXGTUDXOFBLOGKV7194-45-65Z92:54:22 [facility] 2022-08-20 15:32:00 [id number] Avmni690mZQH4d+nPNeAQaq4TT0ke1hxsxms8 el1083-69-64K72:32:00 [facility] HospitalInternal Medicine Prog. NoteREPORT#:[id number] REPORT STATUS: SignedDATE:08/20/22 TIME: 1532 PATIENT: MARITZABRENNAN GERRY UNIT #: [id number]#: [id number] ROOM/BED: 503-2DOB: [birth year] AGE: 82 SEX: M ATTEND: Arthur Fuentes MDADM AUTHOR: Devin Fox DO * ALL edits or amendments must be made on the electronic/computer document * SubjectiveChief complaint:pt s c/o . now in rehab Review of SystemsAll systems rev neg: except as marked Objective GeneralVS/I O:Vital Signs Date Temp Pulse Resp B/P B/P Mean Pulse Ox FiO2 08/19-08/20 97.2-98.1 65-96 - 81-133/40-73 0.0-91.8 94-99 Last Documented: Result Date Time B/P 101/63 08/20 0926 B/P Mean 75.6 08/20 0926 Pulse 86 08/20 0926 Pulse Ox 94 08/20 0756 O2 Delivery Room air 08/20 0756 Temp 97.2 08/20 0710 Resp 18 08/20 0710 FiO2 21 08/18 2124 24 hour I O ending at 0700: 08/20 0700 08/19 1900 Intake Total 200 Output Total 600 Balance 200 -600 Intake, Oral 200 Number 2 Incontinent Voids Number Voids 0 Output, Urine 600 PATIENT WEIGHT: Weight (lb): 221Weight (oz): 9.03Weight (kg): 100.500 Medications:Active Meds + DC'd Last 24 HrsMidodrine (PROAMATINE) 5 MG BID 9A 5P PO Midodrine (PROAMATINE) 2.5 MG BID 9A 5P PO (DC) Furosemide (LASIX) 40 MG Q12H PO Duloxetine HCl (CYMBALTA) 60 MG BEDTIME PO Ezetimibe (ZETIA) 10 MG DAILY PO Amiodarone HCl (CORDARONE) 200 MG BID PO Aspirin (ASPIRIN) 81 MG DAILY PO Clopidogrel Bisulfate (Plavix) 75 MG DAILY PO Cyanocobalamin (Vitamin B-12 500 mcg tab) 500 MCG DAILY PO Ferrous Sulfate (FERROUS SULFATE) 325 MG DAILY PO Polyethylene Glycol (MIRALAX) 17 GM DAILY PO Pantoprazole (PROTONIX) 40 MG DAILY@0600 PO Budesonide (PULMICORT RESPULES) 0.5 MG RTBID INH Formoterol Fumarate (PERFOROMIST) 20 MCG RTBID NEB Docusate Sodium (COLACE) 100 MG BID PO Ipratropium [place] (ATROVENT) 500 MCG RTQ6H INH Metoprolol Tartrate (LOPRESSOR) 25 MG Q12HR PO Sennosides (Senna Lax 8.6 MG TABLET) 17.2 MG BEDTIME PO Hydralazine HCl (APRESOLINE) 10 MG Q6H PRN PRN IV Acetaminophen (TYLENOL) 650 MG Q4H PRN PRN PO Ipratropium [place] (ATROVENT) 500 MCG RTQ2H PRN PRN INH Melatonin (Melatonin) 6 MG BEDTIME PRN PO Ondansetron HCl (ZOFRAN ODT) 4 MG TID PRN PRN SL Physical ExamGeneral appearance: alert, awake, orientedHead/Eyes: EOMI, PERRLANeck: non-tender, no JVDCardiovascular: normal heart sounds, regular rate rhythmRespiratory: aerating well, clear to auscultationAbdomen: non-tender, normal bowel soundsExtremities: Extremities: no cyanosis, no edemaNeuro/TEAROOM HOST/HOSTESS: alert, oriented x 3, CNII-XII intact Diagnosis, Assessment PlanHospital course to date:82-year-old male with past medical history of hypertension, atrial fibrillation,supraventricular tachycardia status post ablation who was admitted with reports of multivessel coronary artery disease found on a cardiac catheterization done at [facility]. Patient was transferred to [facility] for CABG. He underwent SFAEq7l. 1. Coronary artery disease-Status post CABG x5, ALAA, PVI-Continue metoprolol, Plavix, aspirin 2. Atrial fibrillation-Continue po amiodarone for rate control- taper AMIO per cards-Continue metoprolol-Monitor and review telemetry 3. Debility-.-PT/OT- PMR- Inpt Rehab 4. ARF- Trend cr 1.3-1.9-2.2-2.0-1.9- post op, post lasix therefore likely pre-renal- baseline CKD is suspected- nephro consulted 5. anemia- acute, post op expecteed- monitor and transfuse if hg <7- cont po Iron- Trend Hg 9.1 6. Delirium-Likely due to sundowning-Monitor closely-Patient is neurologically intact dispo: INPT REHABtotal time spent 35mins Consultants: cardiology, cardiovascular surgery, hospitalist, nephrology Quality: Gen Med Crit Care Current MedicationsCurrent medication review:I attest that the foregoing medication list in the medical record is true, accurate, and complete to the best of my knowledge. Advanced Care Plan 65 or OlderDiscussed with: patientDiscussion included: code status at 0917 RPT #:[id number] OF REPORTPRProgress [id number]:32:00G.[id number] for patient xwdrVZNMBTRBRTPHNZ9211-37-84C52:17:22 [facility] 2022-08-20 08:17:00 [id number]/[id number] qRm7/mcBT9N1pU8qee035hd0jPgG2zsF4H0Ow [id number]:17:00 [facility] HospitalCardiology Progress NoteREPORT#:[id number] REPORT STATUS: SignedDATE:08/20/22 TIME: 0817 PATIENT: BRENNAN AHN UNIT #: [id number]#: [id number] [address] [birth year] AGE: 82 SEX: M ATTEND: Arthur Fuentes [facility] AUTHOR: Fredyd Celis MD * ALL edits or amendments must be made on the electronic/computer document * SubjectiveChief complaint:None Objective GeneralVS/I O:24 hour I O ending at 0700: 08/20 0700 08/19 1900 Intake Total 200 Output Total 600 Balance 200 -600 Intake, Oral 200 Number 2 Incontinent Voids Number Voids 0 Output, Urine 600 Vital Signs: Date Time Temp Pulse Resp B/P B/P Pulse O2 O2 Flow FiO2 Mean Ox Delivery Rate 08/20 0710 97.2 65 18 116/67 83.3 95 Room air 08/20 0552 97.5 74 16 119/73 88.2 96 Room air 08/20 0033 98.1 69 17 119/62 81.0 96 Room air 08/19 1930 97.7 68 17 133/71 91.8 99 Room air 08/19 1542 97.3 70 18 105/62 0.0 94 Room air 08/19 1112 97.7 59 18 103/60 74.5 99 Room air PATIENT WEIGHT: Weight (lb): 221Weight (oz): 9.03Weight (kg): 100.500 Medications:Active Meds + DC'd Last 24 HrsMidodrine (PROAMATINE) 2.5 MG BID 9A 5P PO Midodrine (PROAMATINE) 2.5 MG ONCE ONE PO (DC) Furosemide (LASIX) 40 MG Q12H PO Duloxetine HCl (CYMBALTA) 60 MG BEDTIME PO Ezetimibe (ZETIA) 10 MG DAILY PO Amiodarone HCl (CORDARONE) 200 MG BID PO Aspirin (ASPIRIN) 81 MG DAILY PO Clopidogrel Bisulfate (Plavix) 75 MG DAILY PO Cyanocobalamin (Vitamin B-12 500 mcg tab) 500 MCG DAILY PO Ferrous Sulfate (FERROUS SULFATE) 325 MG DAILY PO Polyethylene Glycol (MIRALAX) 17 GM DAILY PO Pantoprazole (PROTONIX) 40 MG DAILY@0600 PO Budesonide (PULMICORT RESPULES) 0.5 MG RTBID INH Formoterol Fumarate (PERFOROMIST) 20 MCG RTBID NEB Docusate Sodium (COLACE) 100 MG BID PO Ipratropium [place] (ATROVENT) 500 MCG RTQ6H INH Metoprolol Tartrate (LOPRESSOR) 25 MG Q12HR PO Sennosides (Senna Lax 8.6 MG TABLET) 17.2 MG BEDTIME PO Hydralazine HCl (APRESOLINE) 10 MG Q6H PRN PRN IV Acetaminophen (TYLENOL) 650 MG Q4H PRN PRN PO Ipratropium [place] (ATROVENT) 500 MCG RTQ2H PRN PRN INH Melatonin (Melatonin) 6 MG BEDTIME PRN PO Ondansetron HCl (ZOFRAN ODT) 4 MG TID PRN PRN SL Physical ExamGeneral appearance: sleeping comfortablyNeck: non-tender, no JVDCardiovascular: CV assessment: irregularly irregular, pedal edemaRespiratory: decreased breath sounds, no distressAbdomen: soft, non-tender, normal bowel sounds, no distentionGenitourinary: no flank pain, no urinary catheterLower extremity: LE assessment: edemaMusculoskeletal: normal inspectionNeuro/TEAROOM HOST/HOSTESS: alertSkin: dryPsychiatry: normal affect, normal mood Diagnosis, Assessment PlanConsultants: cardiology, cardiovascular surgery, hospitalist, nephrology Free Text DxA P NotesFree Text DxA P Notes:82 YO male with MHX of Afib, HTN, HLD, CAD who is s/p 5 vessel CABG and PVI and ALAA. The patient is transferred to [facility] for inpatient rehabilitation. We are consulted for continuity of cardiac-related care. 1. CAD s/p CABG x 5 (NGUYEN-LAD, SVG-Olga Lidia, SVG-OM, SVG-LPLA, SVG-PDA) continue asa, BB, plavix, Zetiaecho 08/12- LVEF 50-54%, left pleural effusionintolerant of statin, will consider nonstatin med such as Repatha or Nexletol outpatientRLE edema - continue PO lasix 40 mg daily 2. A-fib: Paroxysmal - rate controlleds/p PVI and ARISTEO amputationon amiodarone 200 mg BID - will taper dose prior to dischargecontinue BBno need for AC since left atrial appendage was removed during CABG 3. HTN - normotensivecontinue metoprolol 25 mg BID 4. AKInephrology following at 0817 RPT #:[id number] OF REPORTPRProgress [id number]:17:00G.[id number] for patient haabDEHBGUYDGIGBIO6001-92-39N28:17:59 [facility] 2022-08-20 05:47:00 [id number] o/tq0ZLqr89lCo2/pM8v/IAr9w65yvJuPcr1S SS1019-52-45Q40:47:00 [facility] HospitalRehab Progress NoteREPORT#:[id number] REPORT STATUS: SignedDATE:08/20/22 TIME: 0547 PATIENT: BRENNAN AHN UNIT #: [id number]#: [id number] [address] AGE: 82 SEX: M ATTEND: Arthur Fuentes [facility] AUTHOR: Florentino Jimenez * ALL edits or amendments must be made on the electronic/computer document * SubjectiveChief complaint:Rehab follow-upDoing wellConfusedNADEating+ BMDenies MORA/N/V/D/CP14 systems reviewed and neg. except that above.History of present illness:82-year-old male with PMH of Alzheimer's dementia, CKD, HTN, atrial fibrillation, history of SVT/ablation who was transferred to [facility] ED after being foundto have multivessel coronary artery disease. Patient initially with was at homeand developed chest pains. [facility] which revealed multivessel CAD. Patient evaluated here by cardiothoracic surgery and underwent CABG x5 on 08/10. Patient with postoperative anemia and significant impairment in mobility. Pt is progressing slowly with therapy d/t weakness, self care deficit, decreased endurance and balance, and decreased functional mobility. Pt requiring acute inpt rehab for multidisciplinary team of nursing, therapy, and physicians. Pt is willing and able to participate in 3 hr/day inpt rehab to d/c home safely. Daughter states pt's prior level of function was independent. Currently patient has generalizedweakness. He lives by himself in a one-step up house. He denies any shortness of breath, nausea, vomiting, fever, chills. Denies chest pain. He is complaining of some constipation. He tells me that is in the process of sellinghis home. Preadmission screen was completed. Patient admitted to IRF. Objective GeneralVS:Vital Signs: Date Time Temp Pulse Resp B/P B/P Pulse O2 O2 Flow FiO2 Mean Ox Delivery Rate 08/20 0033 98.1 69 17 119/62 81.0 96 Room air 08/19 1930 97.7 68 17 133/71 91.8 99 Room air 08/19 1542 97.3 70 18 105/62 0.0 94 Room air 08/19 1112 97.7 59 18 103/60 74.5 99 Room air 08/19 0722 Room air 08/19 0653 97.5 60 18 105/64 0.0 94 Room air PATIENT WEIGHT: Weight (lb): 221Weight (oz): 9.03Weight (kg): 100.500 Medications:Active Meds + DC'd Last 24 HrsMidodrine (PROAMATINE) 2.5 MG BID 9A 5P PO Midodrine (PROAMATINE) 2.5 MG ONCE ONE PO (DC) Furosemide (LASIX) 40 MG Q12H PO Duloxetine HCl (CYMBALTA) 60 MG BEDTIME PO Ezetimibe (ZETIA) 10 MG DAILY PO Amiodarone HCl (CORDARONE) 200 MG BID PO Aspirin (ASPIRIN) 81 MG DAILY PO Clopidogrel Bisulfate (Plavix) 75 MG DAILY PO Cyanocobalamin (Vitamin B-12 500 mcg tab) 500 MCG DAILY PO Ferrous Sulfate (FERROUS SULFATE) 325 MG DAILY PO Polyethylene Glycol (MIRALAX) 17 GM DAILY PO Pantoprazole (PROTONIX) 40 MG DAILY@0600 PO Budesonide (PULMICORT RESPULES) 0.5 MG RTBID INH Formoterol Fumarate (PERFOROMIST) 20 MCG RTBID NEB Docusate Sodium (COLACE) 100 MG BID PO Ipratropium [place] (ATROVENT) 500 MCG RTQ6H INH Metoprolol Tartrate (LOPRESSOR) 25 MG Q12HR PO Sennosides (Senna Lax 8.6 MG TABLET) 17.2 MG BEDTIME PO Hydralazine HCl (APRESOLINE) 10 MG Q6H PRN PRN IV Acetaminophen (TYLENOL) 650 MG Q4H PRN PRN PO Ipratropium [place] (ATROVENT) 500 MCG RTQ2H PRN PRN INH Melatonin (Melatonin) 6 MG BEDTIME PRN PO Ondansetron HCl (ZOFRAN ODT) 4 MG TID PRN PRN SL Dietitian nutrition assessmentThe data set between the solid lines has been imported from the dietitian's assessment. __ BMI Calculated: 30.0Nutrition related diagnosis: Morbid obesityNutrition diagnosis details: BMI 40 or moreNutrition problem: Inadequate fluid intakeNutrition etiology: Decreased/poor appetiteNutrition signs and symptoms: Less than 75% intakeNutrition prescription: 1) Contiune w/current diet order (Caridac), if PO intake continues to be around 50%, consider swapping to regular. 2) Texture per HOSPICE SPIRITUAL CARE COORDINATOR/MD recommendationsDietitian name: Logan Spain, DIETAssessment completed: 08/17/22 Functional ProgressFunctional progress:PT daily note comment: S: Upon arrival pt in bed. Son present for orientation. 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 O: Pt tolerated 90 min of skilled PT tx working on functional training. Reviewed sternal precautions w/ pt son pt ed to increase safety awareness techniques for fall prevention. Bed mobility: rolling min A, supine to sit EOB mod/max A w/ HOB elevated w/ max v/c's for sternal precautions. Assisted pt w/ dressing sitting EOB. Sitting balance F-. Transfers:pt required mod A for STS to RW standpivot transfers w/ max v/c's for sternal precautions. A: Pt tolerated tx fair however demo poor carryover w/ maintaining sternal precautions requiring max v/c's throughout tx. Pt left sitting up in w/c in room. Alarm activated, call light all needs within reach. RN notified. P: Continue w/ POC. Physical ExamGeneral appearance: alert, awakePsych: alert, normal affect, oriented x 3HEENT: anicteric, mucosal membranes moist, pupils reactive to light, sclera clearNeck: non-tender, supple, no JVDCardiovascular: irregular rhythm, S1/S2, cap refill wnl, pulses intactRespiratory: diminished breath sounds, on oxygen, aerating wellAbdomen: bowel sounds present, non-distended, soft, non-tenderSkin: dry, normal temperature, no rash, bruising R thigh, mild L thigh, BUE, R hand Sl tender/edema, sternum incision RSH site CDIMusculoskeletal - general: Musculoskeletal - general: OA changes, normal tone, no swelling, Moves all 4 exts AG, calves NT, no cords, Homans negNeuro/TEAROOM HOST/HOSTESS: alert, oriented X 3, CNII-XII intact, normal speech, no motor deficits, no sensory deficits ResultsFindings/Data:No new labs Diagnosis, Assessment PlanProblem List/A P: 1. CAD (coronary artery disease) 2. Afib 3. HTN (hypertension) 4. S/P CABG x 5 5. Impaired functional mobility, balance, gait, and endurance Free Text A P:Assessment:Multivessel CAD08/10: S/p CABG x5-Dr. Lind-fib s/p a LAAEndoscopic RGSV harvest08/16: Echo-EF 50-54%, small pericardial effusionSmall bilateral pleural effusions.Muscle weakness Unsteady gaitAlzheimer's dementiaPostoperative anemiaAKI on CKDHTNImpairment in self-care, ADLs and functional mobility Plan:-Continue PT/OT-Case management for safe discharge planning.-Decubitus prevention-protective hydrating lotion-turn every 2 fgyhj-aerpbxk-Bodza program-MiraLAX, senna,-Nutrition, monitor the patient's p.o. intake, check albumin 3.3 and prealbumin,dietary consult, protein supplements.-Strict fall and safety precaution-DVT wvvpwwirplo-KQIe-NB prophylaxis on Protonix-CAD on Plavix and aspirin, intolerant to statins-Pulmonary toilet frequent I-S, nebs, wean O2-Early mobilization-OOB to chair-Work on bed mobility, transfer training, ADLs, pre-gait and gait exercises as tolerable. -Increase endurance and strength-Pain management-Postop care as per CVS-Monitor telemetry-Cardiology on case-LADARIUS as per nephrology-Dementia/confusion-Higher level of nursing care and monitoring for safety-Appreciate consultants input-Continue current medication-Strict sternal precautions-Monitor sites of bruising and right hand pain-from previous phlebotomy sites-nosigns of infection-Labs reviewed-WBC normal, hemoglobin 9.1, platelets normal, creatinine 1.9, magnesium djwnfk-Ytwtao-lazmovg B12 and ferrous sulfate-Advance therapies as tolerable-Requires reminders on sternal precautions-HgbA1C 5.2. BMI above normal parameters. Follow up with PCP-Patient has poor safety awareness due to dementia with impaired balance and gait, decreased strength and endurance. Continues to benefit from rehabilitation to maximize mobility for safe return to home-Check labs on Sunday PM RPlease see team note.Plan and goals discussed with the patient. I agree with the teams findingELOS: [ ]QC-jmbg-UTRCI- Total time was 33 minutes > 50% with patient performing physical examination, discussing sternal precautions, plan of care, goals, therapies, progress, medications, labs. All questions answeredRehab attestation:Face to face exam completed. Treatment plan discussed with patient. Meets continued stay criteria. Agree with interdisciplinary treatment plan. at 0521 RPT #:[id number] OF REPORTPRProgress [id number]:47:00G.[id number] for patient xkuiEHCFADFKCXHIAS0185-80-73K69:21:41 [facility] 2022-08-19 14:16:00 [id number]+1Z upLlk5yuFZAT/TbEwNRTkOlS0gx1+i7glFksd SF6588-75-55U30:16:00 [facility])Nephrology Progress NoteREPORT#:[id number] REPORT STATUS: SignedDATE:08/19/22 TIME: 1416 PATIENT: BRENNAN AHN UNIT #: [id number]#: [id number] [address] AGE: 82 SEX: M ATTEND: Arthur Fuentes [facility] AUTHOR: Maura Terrazas MD * ALL edits or amendments must be made on the electronic/computer document * SubjectiveChief complaint:chest painHPI:82-year-old male known to have hypertension, atrial fibrillation, supraventricular tachycardia with requiring ablation presenting with multivesselcardiovascular disease and he underwent CABG 07/13/2022. He endorsed having kidney issues in the past and seeing a specialist managers at [place] but his kidney function had been stable since then.He developed oliguria,LADARIUS and hypervolemia post CABG but had now improved and was transferred to rehab. 08/19Patient appearing comfortable,denying all systemic review including dizziness Objective GeneralVS/I O:Vital Signs: Date Time Temp Pulse Resp B/P B/P Pulse O2 O2 Flow FiO2 Mean Ox Delivery Rate 08/20 925 86 101/63 75.6 08/20 0911 91 81/40 53.5 08/20 0907 89 105/67 79.5 08/20 0905 96 109/67 80.9 08/20 0756 94 Room air 08/20 0710 36.2 65 18 116/67 83.3 95 Room air 08/20 0552 36.4 74 16 119/73 88.2 96 Room air 08/20 0033 36.7 69 17 119/62 81.0 96 Room air 08/19 1930 36.5 68 17 133/71 91.8 99 Room air 08/19 1542 36.3 70 18 105/62 0.0 94 Room air 08/19 1112 36.5 59 18 103/60 74.5 99 Room air 24 hour I O ending at 0700: 08/20 0700 08/19 1900 Intake Total 200 Output Total 600 Balance 200 -600 Intake, Oral 200 Number 2 Incontinent Voids Number Voids 0 Output, Urine 600 PATIENT WEIGHT: Weight (lb): 221Weight (oz): 9.03Weight (kg): 100.500 Physical ExamGeneral appearance: alert, awake, orientedHead/eyes: atraumatic, clear cornea, EOMIENT: moist mucous membranes, normal noseNeck: no JVD, no masses or swellingCardiovascular: normal heart sounds, regular rate and rhythmRespiratory: aerating well, clear to auscultationAbdomen: non-tender, softGenitourinary: no bladder distention, no flank painExtremities: pitting edema, no gangrene, no swelling Diagnosis, Assessment PlanFree Text A P:82-year-old male known to have hypertension, atrial fibrillation, supraventricular tachycardia with requiring ablation presenting with multivesselcardiovascular disease and he underwent CABG 07/13/2022. Transferred to rehab for therapy. Nephrology following for: 1. Acute kidney injury: Most likely prerenal as he recently had surgery. Resolving with better hemodynamics. 2. Hypervolemia:Patient at high risk of volume overload so would reccommend lasix PO .He recently developed orthostasis so dose reduced to 40 PO daily. 3. Electrolytes: His electrolytes appear to be in normal range plan is to monitor and replace as needed. 4. HTN:Controlled with current medications.Plan to continue same.He develops orthostasis so medication doses minimised. 08/19 1. Acute kidney injury: Most likely prerenal as he recently had surgery. Resolving with better hemodynamics. 2. Hypervolemia:Patient at high risk of volume overload so would reccommend lasix PO .He recently developed orthostasis so dose reduced to 40 PO daily.Plan to increase lasix to Q12H and add midodrine for hypotension,patient is not dizzy anymore. 3. Electrolytes: His electrolytes appear to be in normal range plan is to monitor and replace as needed. 4. HTN:Currently he develops orthostatic hypotension so not on any medications besides lasix.Consultants: cardiology, cardiovascular surgery, hospitalist, nephrology at 1047 RPT #:[id number] OF REPORTPRProgress [id number]:16:00G.[id number] for patient qarcFCSMMQSGOOJLLP2852-65-53O71:47:22 [facility] 2022-08-19 12:53:00 [id number] 4M3OZznOCL5SDiR1WJ1dFT2faNusVcgabX7lO [id number]:53:00 [facility] HospitalInternal Medicine Prog. NoteREPORT#:[id number] REPORT STATUS: SignedDATE:08/19/22 TIME: 1253 PATIENT: BRENNAN AHN UNIT #: [id number]#: [id number] [address] AGE: 82 SEX: M ATTEND: AshishbranannaArthur Hanny MDADM AUTHOR: Devin Fox DO * ALL edits or amendments must be made on the electronic/computer document * SubjectiveChief complaint:pt s c/o . now in rehab Review of SystemsAll systems rev neg: except as marked Objective GeneralVS/I O:Vital Signs Date Temp Pulse Resp B/P B/P Mean Pulse Ox FiO2 08/18-08/19 97.5-98.1 59-84 16-18 103-165/60-80 0.0-108.0 94-99 21 Last Documented: Result Date Time Pulse Ox 99 08/19 1112 B/P 103/60 08/19 1112 B/P Mean 74.5 08/19 1112 O2 Delivery Room air 08/19 1112 Temp 97.7 08/19 1112 Pulse 59 08/19 1112 Resp 18 08/19 1112 FiO2 21 08/18 2124 24 hour I O ending at 0700: 08/19 0700 08/18 1900 Intake Total 200 Output Total 400 Balance -200 Intake, Oral 200 Number 0 Incontinent Voids Number Voids 2 Output, Urine 400 PATIENT WEIGHT: Weight (lb): 221Weight (oz): 9.03Weight (kg): 100.500 Medications:Active Meds + DC'd Last 24 HrsFurosemide (LASIX) 40 MG Q12H PO Duloxetine HCl (CYMBALTA) 60 MG BEDTIME PO Ezetimibe (ZETIA) 10 MG DAILY PO Amiodarone HCl (CORDARONE) 200 MG BID PO Aspirin (ASPIRIN) 81 MG DAILY PO Clopidogrel Bisulfate (Plavix) 75 MG DAILY PO Cyanocobalamin (Vitamin B-12 500 mcg tab) 500 MCG DAILY PO Ferrous Sulfate (FERROUS SULFATE) 325 MG DAILY PO Furosemide (LASIX) 40 MG DAILY PO (DC) Polyethylene Glycol (MIRALAX) 17 GM DAILY PO Pantoprazole (PROTONIX) 40 MG DAILY@0600 PO Budesonide (PULMICORT RESPULES) 0.5 MG RTBID INH Formoterol Fumarate (PERFOROMIST) 20 MCG RTBID NEB Docusate Sodium (COLACE) 100 MG BID PO Ipratropium [place] (ATROVENT) 500 MCG RTQ6H INH Metoprolol Tartrate (LOPRESSOR) 25 MG Q12HR PO Sennosides (Senna Lax 8.6 MG TABLET) 17.2 MG BEDTIME PO Hydralazine HCl (APRESOLINE) 10 MG Q6H PRN PRN IV Acetaminophen (TYLENOL) 650 MG Q4H PRN PRN PO Ipratropium [place] (ATROVENT) 500 MCG RTQ2H PRN PRN INH Melatonin (Melatonin) 6 MG BEDTIME PRN PO Ondansetron HCl (ZOFRAN ODT) 4 MG TID PRN PRN SL Physical ExamHead/Eyes: EOMI, PERRLANeck: non-tender, no JVDCardiovascular: normal heart sounds, regular rate rhythmRespiratory: aerating well, clear to auscultationAbdomen: non-tender, normal bowel soundsExtremities: Extremities: no cyanosis, no edemaNeuro/TEAROOM HOST/HOSTESS: alert, oriented x 3, CNII-XII intact Diagnosis, Assessment PlanHospital course to date:82-year-old male with past medical history of hypertension, atrial fibrillation,supraventricular tachycardia status post ablation who was admitted with reports of multivessel coronary artery disease found on a cardiac catheterization done at [facility]. Patient was transferred to [facility] for CABG. He underwent TEESs9s. 1. Coronary artery disease-Status post CABG x5, ALAA, PVI-Continue metoprolol, Plavix, aspirin 2. Atrial fibrillation-Continue po amiodarone for rate control- taper AMIO per cards-Continue metoprolol-Monitor and review telemetry 3. Debility-.-PT/OT- PMR- Inpt Rehab 4. ARF- Trend cr 1.3-1.9-2.2-2.0-1.9- post op, post lasix therefore likely pre-renal- baseline CKD is suspected- nephro consulted 5. anemia- acute, post op expecteed- monitor and transfuse if hg <7- cont po Iron- Trend Hg 9.1 6. Delirium-Likely due to sundowning-Monitor closely-Patient is neurologically intact dispo: INPT REHABtotal time spent 35mins Consultants: cardiology, cardiovascular surgery, hospitalist, nephrology Quality: Gen Med Crit Care Current MedicationsCurrent medication review:I attest that the foregoing medication list in the medical record is true, accurate, and complete to the best of my knowledge. Advanced Care Plan 65 or OlderDiscussed with: patientDiscussion included: code status at 2157 RPT #:[id number] OF REPORTPRProgress [id number]:53:00G.[id number] for patient gxiiNFJLNSHXYLVMSS5306-39-69B97:58:35 [facility] 2022-08-19 07:15:00 [id number] oukHeLTDf6iKD3pnV13EOcTqDicrnXa5SCIy2 [id number]:15:00 [facility])Cardiology Progress NoteREPORT#:[id number] REPORT STATUS: SignedDATE:08/19/22 TIME: 714 PATIENT: BRENNAN AHN UNIT #: [id number]#: [id number] [address] AGE: 82 SEX: M ATTEND: Arthur Fuentes [facility] AUTHOR: Freddy Celis MD * ALL edits or amendments must be made on the electronic/computer document * SubjectiveChief complaint:None Objective GeneralVS/I O:24 hour I O ending at 0700: 08/19 0700 08/18 1900 Intake Total 200 Output Total 400 Balance -200 Intake, Oral 200 Number 0 Incontinent Voids Number Voids 2 Output, Urine 400 Vital Signs: Date Time Temp Pulse Resp B/P B/P Pulse O2 O2 Flow FiO2 Mean Ox Delivery Rate 08/19 0653 97.5 60 18 105/64 0.0 94 Room air 08/19 0444 97.7 62 16 112/64 80.2 96 Room air 08/18 2341 98.1 84 16 151/69 96.4 96 Room air 08/18 2124 96 Room air 21 08/18 1954 97.9 83 16 165/80 108.0 95 Room air 08/18 1525 98.1 70 18 127/64 84.9 97 Room air 08/18 1012 97.7 69 18 116/62 80.3 97 Room air 08/18 0919 95 Room air PATIENT WEIGHT: Weight (lb): 221Weight (oz): 9.03Weight (kg): 100.500 Medications:Active Meds + DC'd Last 24 HrsFurosemide (LASIX) 40 MG Q12H PO Duloxetine HCl (CYMBALTA) 60 MG BEDTIME PO Ezetimibe (ZETIA) 10 MG DAILY PO Amiodarone HCl (CORDARONE) 200 MG BID PO Aspirin (ASPIRIN) 81 MG DAILY PO Clopidogrel Bisulfate (Plavix) 75 MG DAILY PO Cyanocobalamin (Vitamin B-12 500 mcg tab) 500 MCG DAILY PO Ferrous Sulfate (FERROUS SULFATE) 325 MG DAILY PO Furosemide (LASIX) 40 MG DAILY PO (DC) Polyethylene Glycol (MIRALAX) 17 GM DAILY PO Pantoprazole (PROTONIX) 40 MG DAILY@0600 PO Budesonide (PULMICORT RESPULES) 0.5 MG RTBID INH Formoterol Fumarate (PERFOROMIST) 20 MCG RTBID NEB Docusate Sodium (COLACE) 100 MG BID PO Ipratropium [place] (ATROVENT) 500 MCG RTQ6H INH Metoprolol Tartrate (LOPRESSOR) 25 MG Q12HR PO Sennosides (Senna Lax 8.6 MG TABLET) 17.2 MG BEDTIME PO Hydralazine HCl (APRESOLINE) 10 MG Q6H PRN PRN IV Acetaminophen (TYLENOL) 650 MG Q4H PRN PRN PO Ipratropium [place] (ATROVENT) 500 MCG RTQ2H PRN PRN INH Melatonin (Melatonin) 6 MG BEDTIME PRN PO Ondansetron HCl (ZOFRAN ODT) 4 MG TID PRN PRN SL Physical ExamGeneral appearance: sleeping comfortablyNeck: non-tender, no JVDCardiovascular: CV assessment: irregularly irregular, pedal edemaRespiratory: decreased breath sounds, no distressAbdomen: soft, non-tender, normal bowel sounds, no distentionGenitourinary: no flank pain, no urinary catheterLower extremity: LE assessment: edemaMusculoskeletal: normal inspectionNeuro/TEAROOM HOST/HOSTESS: alertSkin: dryPsychiatry: normal affect, normal mood Diagnosis, Assessment PlanConsultants: cardiology, cardiovascular surgery, hospitalist, nephrology Free Text DxA P NotesFree Text DxA P Notes:82 YO male with MHX of Afib, HTN, HLD, CAD who is s/p 5 vessel CABG and PVI and ALAA. The patient is transferred to [facility] for inpatient rehabilitation. We are consulted for continuity of cardiac-related care. 1. CAD s/p CABG x 5 (NGUYEN-LAD, SVG-Olga Lidia, SVG-OM, SVG-LPLA, SVG-PDA) continue asa, BB, plavix, Zetiaecho 08/12- LVEF 50-54%, left pleural effusionintolerant of statin, will consider nonstatin med such as Repatha or Nexletol outpatientRLE edema - continue PO lasix 40 mg daily 2. A-fib: Paroxysmal - rate controlleds/p PVI and ARISTEO amputationon amiodarone 200 mg BID - will taper dose prior to dischargecontinue BBno need for AC since left atrial appendage was removed during CABG 3. HTN - normotensivecontinue metoprolol 25 mg BID 4. AKInephrology following at 0715 RPT #:[id number] OF REPORTPRProgress [id number]:15:00G.[id number] for patient aosbDLKVCVRTGPDCCL1707-17-87T17:16:06 [facility] 2022-08-19 05:41:00 [id number]+[id number]+ dHBYUcxnu5LTJ7RTtfWYtzJNvYPgn22CkApXQ [id number]:41:00 [facility] HospitalRehab Progress NoteREPORT#:[id number] REPORT STATUS: SignedDATE:08/19/22 TIME: 0541 PATIENT: BRENNAN AHN UNIT #: [id number]#: [id number] [address] AGE: 82 SEX: M ATTEND: Arthur Fuentes [facility] AUTHOR: Florentino Jimenez * ALL edits or amendments must be made on the electronic/computer document * SubjectiveChief complaint:Rehab follow-upDoing wellWith some confusion todayNADEating+ BMDenies MORA/N/V/D/CP14 systems reviewed and neg. except that above.History of present illness:82-year-old male with PMH of Alzheimer's dementia, CKD, HTN, atrial fibrillation, history of SVT/ablation who was transferred to [facility] ED after being foundto have multivessel coronary artery disease. Patient initially with was at homeand developed chest pains. [facility] which revealed multivessel CAD. Patient evaluated here by cardiothoracic surgery and underwent CABG x5 on 08/10. Patient with postoperative anemia and significant impairment in mobility. Pt is progressing slowly with therapy d/t weakness, self care deficit, decreased endurance and balance, and decreased functional mobility. Pt requiring acute inpt rehab for multidisciplinary team of nursing, therapy, and physicians. Pt is willing and able to participate in 3 hr/day inpt rehab to d/c home safely. Daughter states pt's prior level of function was independent. Currently patient has generalizedweakness. He lives by himself in a one-step up house. He denies any shortness of breath, nausea, vomiting, fever, chills. Denies chest pain. He is complaining of some constipation. He tells me that is in the process of sellinghis home. Preadmission screen was completed. Patient admitted to IRF. Objective GeneralVS:Vital Signs: Date Time Temp Pulse Resp B/P B/P Pulse O2 O2 Flow FiO2 Mean Ox Delivery Rate 08/19 0444 97.7 62 16 112/64 80.2 96 Room air 08/18 2341 98.1 84 16 151/69 96.4 96 Room air 08/18 2124 96 Room air 08/184 97.9 83 16 165/80 108.0 95 Room air 08/18 1525 98.1 70 18 127/64 84.9 97 Room air 08/18 1012 97.7 69 18 116/62 80.3 97 Room air 08/18 0919 95 Room air 08/18 0706 98.1 81 18 152/72 98.5 95 Room air PATIENT WEIGHT: Weight (lb): 221Weight (oz): 9.03Weight (kg): 100.500 Medications:Active Meds + DC'd Last 24 HrsFurosemide (LASIX) 40 MG Q12H PO Duloxetine HCl (CYMBALTA) 60 MG BEDTIME PO Ezetimibe (ZETIA) 10 MG DAILY PO Amiodarone HCl (CORDARONE) 200 MG BID PO Aspirin (ASPIRIN) 81 MG DAILY PO Clopidogrel Bisulfate (Plavix) 75 MG DAILY PO Cyanocobalamin (Vitamin B-12 500 mcg tab) 500 MCG DAILY PO Ferrous Sulfate (FERROUS SULFATE) 325 MG DAILY PO Furosemide (LASIX) 40 MG DAILY PO (DC) Polyethylene Glycol (MIRALAX) 17 GM DAILY PO Pantoprazole (PROTONIX) 40 MG DAILY@0600 PO Budesonide (PULMICORT RESPULES) 0.5 MG RTBID INH Formoterol Fumarate (PERFOROMIST) 20 MCG RTBID NEB Docusate Sodium (COLACE) 100 MG BID PO Ipratropium [place] (ATROVENT) 500 MCG RTQ6H INH Metoprolol Tartrate (LOPRESSOR) 25 MG Q12HR PO Sennosides (Senna Lax 8.6 MG TABLET) 17.2 MG BEDTIME PO Hydralazine HCl (APRESOLINE) 10 MG Q6H PRN PRN IV Acetaminophen (TYLENOL) 650 MG Q4H PRN PRN PO Ipratropium [place] (ATROVENT) 500 MCG RTQ2H PRN PRN INH Melatonin (Melatonin) 6 MG BEDTIME PRN PO Ondansetron HCl (ZOFRAN ODT) 4 MG TID PRN PRN SL Functional ProgressFunctional progress:PT daily note comment: S: Upon arrival pt in bed. Son present for orientation. Son confirmed pt lived alone [employer] was still driving however family was already looking into [facility]. O: Pt tolerated 90 min of skilled PT tx working on functional training. Reviewed sternal precautions w/ pt son pt ed to increase safety awareness techniques for fall prevention. Bed mobility: rolling min A, supine to sit EOB mod/max A w/ HOB elevated w/ max v/c's for sternal precautions. Assisted pt w/ dressing sitting EOB. Sitting balance F-. Transfers:pt required mod A for STS to RW standpivot transfers w/ max v/c's for sternal precautions. A: Pt tolerated tx fair however demo poor carryover w/ maintaining sternal precautions requiring max v/c's throughout tx. Pt left sitting up in w/c in room. Alarm activated, call light all needs within reach. RN notified. Physical ExamGeneral appearance: alert, awakePsych: alert, normal affect, oriented x 3HEENT: anicteric, mucosal membranes moist, pupils reactive to light, sclera clearNeck: non-tender, supple, no JVDCardiovascular: irregular rhythm, S1/S2, cap refill wnl, pulses intactRespiratory: diminished breath sounds, on oxygen, aerating wellAbdomen: bowel sounds present, non-distended, soft, non-tenderSkin: dry, normal temperature, no rash, bruising R thigh, mild L thigh, BUE, R hand Sl tender/edema, sternum incision RSH site CDIMusculoskeletal - general: Musculoskeletal - general: OA changes, normal tone, no swelling, Moves all 4 exts AG, calves NT, no cords, Homans negNeuro/TEAROOM HOST/HOSTESS: alert, oriented X 3, CNII-XII intact, normal speech, no motor deficits, no sensory deficits ResultsFindings/Data:Laboratory Tests 08/17 0521 Chemistry Sodium (134 - 147 mEq/L) 138 Potassium (3.4 - 5.0 mEq/L) 4.0 Chloride (100 - 108 mEq/L) 105 Carbon Dioxide (21 - 33 mEq/l) 25 Anion Gap (0 - 20) 12 BUN (7 - 18 mg/dL) 29 H Creatinine (0.6 - 1.3 mg/dL) 1.9 H Glomerular Filtr Rate (70 - 80) 35.2 L Glucose (70 - 110 mg/dL) 107 Calcium (8.0 - 10.5 mg/dL) 9.4 Magnesium (1.80 - 2.40 mg/dL) 2.11 Total Bilirubin (0.0 - 1.0 mg/dL) 0.60 AST (15 - 37 IUnit/L) 20 ALT (30 - 65 IUnit/L) < 7 L Total Alk Phosphatase (20 - 125 IUnit/L) 69 Total Protein (6.4 - 8.2 g/dL) 5.8 L Albumin (3.4 - 5.0 g/dL) 3.30 L Laboratory Tests 08/17 0521 Hematology WBC (4.5 - 11.0 x10 3/uL) 8.7 RBC (4.00 - 5.60 x10 6/uL) 3.02 L Hgb (12.5 - 16.9 g/dL) 9.1 L Hct (37.5 - 50.7 %) 28.5 L MCV (81.0 - 99.0 fL) 94.4 MCH (27.0 - 33.0 pg) 30.1 MCHC (33.0 - 37.0 g/dL) 31.9 L RDW (11.5 - 14.5 %) 14.3 Plt Count (150 - 400 x10 3/uL) 293 MPV (7.0 - 9.0 fL) 9.7 H Neut % (Auto) (56.0 - 77.0 %) 64.3 Lymph % (Auto) (14.0 - 32.0 %) 14.4 [place] % (Auto) (4.8 - 9.0 %) 12.6 H Eos % (Auto) (0.3 - 3.7 %) 6.9 H Baso % (Auto) (0.0 - 2.0 %) 0.7 Neut # (Auto) (2.0 - 7.6 x10 3/uL) 5.59 Lymph # (Auto) (1.0 - 3.8 x10 3/uL) 1.25 [place] # (Auto) (0.1 - 0.8 x10 3/uL) 1.10 H Eos # (Auto) (0.0 - 0.2 x10 3/uL) 0.60 H Baso # (Auto) (0.0 - 0.2 x10 3/uL) 0.06 Abs Immat Gran (auto) (0.00 - 0.03 x10 3/uL) 0.10 H Add Manual Diff NO Immature Gran % (0.0 - 2.0 %) 1.1 Nucleated RBC % (0 - 0 %) 0.0 Nucleated RBCs # (Man) (0.0 - 0.1 x10 3/uL) 0.00 Microbiology Date/Time Procedure - Status Source Growth 08/17 0500 MRSA DNA Surveillance Screen - COMP NASAL Diagnosis, Assessment PlanProblem List/A P: 1. CAD (coronary artery disease) 2. Afib 3. HTN (hypertension) 4. S/P CABG x 5 5. Impaired functional mobility, balance, gait, and endurance Free Text A P:Assessment:Multivessel CAD3/: S/p CABG x5-Dr. Lind-fib s/p a LAAEndoscopic RGSV harvest08/16: Echo-EF 50-54%, small pericardial effusionSmall bilateral pleural effusions.Muscle weakness Unsteady gaitAlzheimer's dementiaPostoperative anemiaAKI on CKDHTNImpairment in self-care, ADLs and functional mobility Plan:-Continue PT/OT-Case management for safe discharge planning.-Decubitus prevention-protective hydrating lotion-turn every 2 cnfbt-wvicggo-Qpaxk program-MiraLAX, senna,-Nutrition, monitor the patient's p.o. intake, check albumin 3.3 and prealbumin,dietary consult, protein supplements.-Strict fall and safety precaution-DVT vmdhmljzygi-VQJp-GJ prophylaxis on Protonix-CAD on Plavix and aspirin, intolerant to statins-Pulmonary toilet frequent I-S, nebs, wean O2-Early mobilization-OOB to chair-Work on bed mobility, transfer training, ADLs, pre-gait and gait exercises as tolerable. -Increase endurance and strength-Pain management-Postop care as per CVS-Monitor telemetry-Cardiology on case-LADARIUS as per nephrology-Dementia/confusion-Higher level of nursing care and monitoring for safety-Appreciate consultants input-Continue current medication-Strict sternal precautions-Monitor sites of bruising and right hand pain-from previous phlebotomy sites-nosigns of infection-Labs reviewed-WBC normal, hemoglobin 9.1, platelets normal, creatinine 1.9, magnesium aknndk-Ftkfff-fpxosqb B12 and ferrous sulfate-Advance therapies as tolerable-Requires reminders on sternal precautions-Patient has poor safety awareness due to dementia with impaired balance and gait, decreased strength and endurance. Continues to benefit from rehabilitation to maximize mobility for safe return to home-Check labs on Sunday PM RPlease see team note.Plan and goals discussed with the patient. I agree with the teams findingELOS: [ ]HY-hejb-BKGKQ- Total time was 33 minutes > 50% with patient performing physical examination, discussing sternal precautions, plan of care, goals, therapies, progress, medications, labs. All questions answeredRehab attestation:Face to face exam completed. Treatment plan discussed with patient. Meets continued stay criteria. Agree with interdisciplinary treatment plan. at 0537 [facility] #:[id number] OF REPORTPRProgress [id number]:41:00G.[id number] for patient [id number]:38:08 [facility] 2022-08-18 23:15:00 [id number] [id number]:15:00 [facility] HospitalNephrology Progress NoteREPORT#:[id number] REPORT STATUS: SignedDATE:08/18/22 TIME: 2314 PATIENT: BRENNAN AHN UNIT #: [id number]#: [id number] [address] AGE: 82 SEX: M ATTEND: Arthur Fuentes [facility] AUTHOR: Maura Terrazas MD * ALL edits or amendments must be made on the electronic/computer document * SubjectiveChief complaint:chest painHPI:82-year-old male known to have hypertension, atrial fibrillation, supraventricular tachycardia with requiring ablation presenting with multivesselcardiovascular disease and he underwent CABG 07/13/2022. He endorsed having kidney issues in the past and seeing a specialist managers at [place] but his kidney function had been stable since then.He developed oliguria,LADARIUS and hypervolemia post CABG but had now improved and was transferred to rehab. 08/18Patient appearing comfortable,denying systemic review. Objective GeneralVS/I O:Vital Signs: Date Time Temp Pulse Resp B/P B/P Pulse O2 O2 Flow FiO2 Mean Ox Delivery Rate 08/19 1112 36.5 59 18 103/60 74.5 99 Room air 08/19 0722 Room air 08/19 0653 36.4 60 18 105/64 0.0 94 Room air 08/19 0444 36.5 62 16 112/64 80.2 96 Room air 08/18 2341 36.7 84 16 151/69 96.4 96 Room air 08/18 2124 96 Room air 08/18 1954 36.6 83 16 165/80 108.0 95 Room air 08/18 1525 36.7 70 18 127/64 84.9 97 Room air 24 hour I O ending at 0700: 08/19 0700 08/18 1900 Intake Total 200 Output Total 400 Balance -200 Intake, Oral 200 Number 0 Incontinent Voids Number Voids 2 Output, Urine 400 PATIENT WEIGHT: Weight (lb): 221Weight (oz): 9.03Weight (kg): 100.500 Physical ExamGeneral appearance: alert, awake, orientedHead/eyes: atraumatic, clear cornea, EOMIENT: moist mucous membranes, normal noseNeck: no JVD, no masses or swellingCardiovascular: normal heart sounds, regular rate and rhythmRespiratory: aerating well, clear to auscultationAbdomen: non-tender, softGenitourinary: no bladder distention, no flank painExtremities: pitting edema, no gangrene, no swelling Diagnosis, Assessment PlanFree Text A P:82-year-old male known to have hypertension, atrial fibrillation, supraventricular tachycardia with requiring ablation presenting with multivesselcardiovascular disease and he underwent CABG 07/13/2022. Transferred to rehab for therapy. Nephrology following for: 1. Acute kidney injury: Most likely prerenal as he recently had surgery. Resolving with better hemodynamics. 2. Hypervolemia:Patient at high risk of volume overload so would reccommend lasix PO .He recently developed orthostasis so dose reduced to 40 PO daily. 3. Electrolytes: His electrolytes appear to be in normal range plan is to monitor and replace as needed. 4. HTN:Controlled with current medications.Plan to continue same.He develops orthostasis so medication doses minimised. 08/18 1. Acute kidney injury: Most likely prerenal as he recently had surgery. Resolving with better hemodynamics. 2. Hypervolemia:Patient at high risk of volume overload so would reccommend lasix PO .He recently developed orthostasis so dose reduced to 40 PO daily.Tolerating 40 mg QD . 3. Electrolytes: His electrolytes appear to be in normal range plan is to monitor and replace as needed. 4. HTN:Controlled with current medications.Plan to continue same.He develops orthostasis so medication doses minimised.Consultants: cardiology, cardiovascular surgery, hospitalist, nephrology at 1415 RPT #:[id number] OF REPORTPRProgress [id number]:15:00G.[id number] for patient [id number]:16:08 [facility] 2022-08-18 16:04:00 [id number]/ [id number]:04:00 [facility] HospitalInternal Medicine Prog. NoteREPORT#:[id number] REPORT STATUS: SignedDATE:08/18/22 TIME: 1604 PATIENT: BRENNAN AHN UNIT #: [id number]#: [id number] [address] AGE: 82 SEX: M ATTEND: Arthur Fuentes [facility] AUTHOR: Devin Fox DO * ALL edits or amendments must be made on the electronic/computer document * SubjectiveChief complaint:pt s c/o . now in rehab Review of SystemsAll systems rev neg: except as marked Objective GeneralVS/I O:Vital Signs Date Temp Pulse Resp B/P B/P Mean Pulse Ox FiO2 08/17-08/18 97.5-98.1 69-91 14-18 109-152/60-72 76.5-98.5 93-98 Last Documented: Result Date Time Pulse Ox 97 08/18 1525 B/P 127/64 08/18 1525 B/P Mean 84.9 08/18 1525 O2 Delivery Room air 08/18 1525 Temp 98.1 08/18 1525 Pulse 70 08/18 1525 Resp 18 08/18 1525 24 hour I O ending at 0700: 08/18 0700 08/17 1900 Intake Total 965 Output Total Balance 965 Intake, Oral 965 Number 1 Bowel Movements Number 0 Incontinent Voids Number Voids 1 PATIENT WEIGHT: Weight (lb): 221Weight (oz): 9.03Weight (kg): 100.500 Medications:Active Meds + DC'd Last 24 HrsDuloxetine HCl (CYMBALTA) 60 MG BEDTIME PO Ezetimibe (ZETIA) 10 MG DAILY PO Amiodarone HCl (CORDARONE) 200 MG BID PO Aspirin (ASPIRIN) 81 MG DAILY PO Clopidogrel Bisulfate (Plavix) 75 MG DAILY PO Cyanocobalamin (Vitamin B-12 500 mcg tab) 500 MCG DAILY PO Ferrous Sulfate (FERROUS SULFATE) 325 MG DAILY PO Furosemide (LASIX) 40 MG DAILY PO Polyethylene Glycol (MIRALAX) 17 GM DAILY PO Pantoprazole (PROTONIX) 40 MG DAILY@0600 PO Budesonide (PULMICORT RESPULES) 0.5 MG RTBID INH Formoterol Fumarate (PERFOROMIST) 20 MCG RTBID NEB Docusate Sodium (COLACE) 100 MG BID PO Ipratropium [place] (ATROVENT) 500 MCG RTQ6H INH Metoprolol Tartrate (LOPRESSOR) 25 MG Q12HR PO Sennosides (Senna Lax 8.6 MG TABLET) 17.2 MG BEDTIME PO Hydralazine HCl (APRESOLINE) 10 MG Q6H PRN PRN IV Acetaminophen (TYLENOL) 650 MG Q4H PRN PRN PO Ipratropium [place] (ATROVENT) 500 MCG RTQ2H PRN PRN INH Melatonin (Melatonin) 6 MG BEDTIME PRN PO Ondansetron HCl (ZOFRAN ODT) 4 MG TID PRN PRN SL Physical ExamGeneral appearance: alert, awake, orientedHead/Eyes: EOMI, PERRLANeck: non-tender, no JVDCardiovascular: normal heart sounds, regular rate rhythmRespiratory: aerating well, clear to auscultationAbdomen: non-tender, normal bowel soundsExtremities: Extremities: no cyanosis, no edemaNeuro/TEAROOM HOST/HOSTESS: alert, oriented x 3, CNII-XII intact Diagnosis, Assessment PlanHospital course to date:82-year-old male with past medical history of hypertension, atrial fibrillation,supraventricular tachycardia status post ablation who was admitted with reports of multivessel coronary artery disease found on a cardiac catheterization done at [facility]. Patient was transferred to [facility] for CABG. He underwent NYCIq0z. 1. Coronary artery disease-Status post CABG x5, ALAA, PVI-Continue metoprolol, Plavix, aspirin 2. Atrial fibrillation-Continue po amiodarone for rate control- taper AMIO per cards-Continue metoprolol-Monitor and review telemetry 3. Debility-.-PT/OT- PMR- Inpt Rehab 4. ARF- Trend cr 1.3-1.9-2.2-2.0-1.9- post op, post lasix therefore likely pre-renal- baseline CKD is suspected- nephro consulted 5. anemia- acute, post op expecteed- monitor and transfuse if hg <7- cont po Iron- Trend Hg 9.1 6. Delirium-Likely due to sundowning-Monitor closely-Patient is neurologically intact dispo: INPT REHABtotal time spent 35mins Consultants: cardiology, cardiovascular surgery, hospitalist, nephrology Quality: Gen Med Crit Care Current MedicationsCurrent medication review:I attest that the foregoing medication list in the medical record is true, accurate, and complete to the best of my knowledge. Advanced Care Plan 65 or OlderDiscussed with: patientDiscussion included: code status at 2157 RPT #:[id number] OF REPORTPRProgress [id number]:04:00G.[id number] for patient [id number]:58:34 [facility] 2022-08-18 09:35:00 [id number] [id number] [id number]:35:00 [facility] ([facility]ITALCardiology Progress NoteREPORT#:[id number] REPORT STATUS: SignedDATE:08/18/22 TIME: 09 PATIENT: BRENNAN AHN UNIT #: [id number]#: [id number] [address] AGE: 82 SEX: M ATTEND: Arthur Fuentes MDADM AUTHOR: Catrina Shetty * ALL edits or amendments must be made on the electronic/computer document * SubjectiveComments:oozing from RLE harvest site Objective GeneralVS/I O:24 hour I O ending at 0700: 08/18 0700 08/17 1900 Intake Total 965 Output Total Balance 965 Intake, Oral 965 Number 1 Bowel Movements Number 0 Incontinent Voids Number Voids 1 Vital Signs: Date Time Temp Pulse Resp B/P B/P Pulse O2 O2 Flow FiO2 Mean Ox Delivery Rate 08/18 0919 95 Room air 08/18 0706 36.7 81 18 152/72 98.5 95 Room air 08/18 0432 73 14 130/67 88.0 98 08/18 0337 93 Room air 08/18 0002 36.4 71 16 120/71 87.5 97 08/17 2045 93 Room air 08/17 1937 36.7 91 16 109/60 76.5 97 08/17 1545 36.4 70 16 128/76 0.0 61 Room air 08/17 1053 36.6 78 16 136/68 90.4 94 Room air PATIENT WEIGHT: Weight (lb): 221Weight (oz): 9.03Weight (kg): 100.500 Medications:Active Meds + DC'd Last 24 HrsEzetimibe (ZETIA) 10 MG DAILY PO Amiodarone HCl (CORDARONE) 200 MG BID PO Aspirin (ASPIRIN) 81 MG DAILY PO Clopidogrel Bisulfate (Plavix) 75 MG DAILY PO Cyanocobalamin (Vitamin B-12 500 mcg tab) 500 MCG DAILY PO Ferrous Sulfate (FERROUS SULFATE) 325 MG DAILY PO Furosemide (LASIX) 40 MG DAILY PO Polyethylene Glycol (MIRALAX) 17 GM DAILY PO Pantoprazole (PROTONIX) 40 MG DAILY@0600 PO Budesonide (PULMICORT RESPULES) 0.5 MG RTBID INH Formoterol Fumarate (PERFOROMIST) 20 MCG RTBID NEB Docusate Sodium (COLACE) 100 MG BID PO Ipratropium [place] (ATROVENT) 500 MCG RTQ6H INH Metoprolol Tartrate (LOPRESSOR) 25 MG Q12HR PO Sennosides (Senna Lax 8.6 MG TABLET) 17.2 MG BEDTIME PO Amiodarone HCl (CORDARONE) 200 MG TID PO (DC) Hydralazine HCl (APRESOLINE) 10 MG Q6H PRN PRN IV Acetaminophen (TYLENOL) 650 MG Q4H PRN PRN PO Ipratropium [place] (ATROVENT) 500 MCG RTQ2H PRN PRN INH Melatonin (Melatonin) 6 MG BEDTIME PRN PO Ondansetron HCl (ZOFRAN ODT) 4 MG TID PRN PRN SL Physical ExamGeneral appearance: alert, awakeNeck: non-tender, no JVDCardiovascular: CV assessment: irregularly irregular, pedal edemaRespiratory: decreased breath sounds, no distressAbdomen: soft, non-tender, normal bowel sounds, no distentionGenitourinary: no flank pain, no urinary catheterLower extremity: LE assessment: edemaMusculoskeletal: normal inspectionNeuro/TEAROOM HOST/HOSTESS: alertSkin: dryPsychiatry: normal affect, normal mood ResultsResults: no new labs, vital signs reviewed, rhythm personally rev'dTelemetry Interpretation:afib with conrolled rate Diagnosis, Assessment PlanPlan discussed with: patient, son, nurse Free Text DxA P NotesFree Text DxA P Notes:82 YO male with MHX of Afib, HTN, HLD, CAD who is s/p 5 vessel CABG and PVI and ALAA. The patient is transferred to [facility] for inpatient rehabilitation. We are consulted for continuity of cardiac-related care. 1. CAD s/p CABG x 5 (NGUYEN-LAD, SVG-Olga Lidia, SVG-OM, SVG-LPLA, SVG-PDA) continue asa, BB, plavix, Zetiaecho 08/12- LVEF 50-54%, left pleural effusionintolerant of statin, will consider nonstatin med such as Repatha or Nexletol outpatientRLE edema - continue PO lasix 40 mg daily 2. A-fib: Paroxysmal - rate controlleds/p PVI and ARISTEO amputationon amiodarone 200 mg BID - will taper dose prior to dischargecontinue BBno need for AC since left atrial appendage was removed during CABG 3. HTN - normotensivecontinue metoprolol 25 mg BID 4. AKInephrology following at 1103 at 1308 RPT #:[id number] OF REPORTPRProgress [id number]:35:00G.[id number] for patient [id number]:04:10 [facility] 2022-08-18 07:26:00 [id number]+l [id number]:26:00 [facility] HospitalRehab Progress NoteREPORT#:[id number] REPORT STATUS: SignedDATE:08/18/22 TIME: 725 PATIENT: BRENNAN AHN UNIT #: [id number]#: [id number] [address] AGE: 82 SEX: M ATTEND: Arthur Fuentes AUTHOR: Arthur Fuentes MD * ALL edits or amendments must be made on the electronic/computer document * SubjectiveChief complaint:We will patient follow-up Doing wellBreathing well on room airNADEatingPositive BMSon in roomPatient denies nausea, vomiting, fever, chest pain, shortness of breath.History of present illness:82-year-old male with PMH of Alzheimer's dementia, CKD, HTN, atrial fibrillation, history of SVT/ablation who was transferred to [facility] ED after being foundto have multivessel coronary artery disease. Patient initially with was at homeand developed chest pains. [facility] which revealed multivessel CAD. Patient evaluated here by cardiothoracic surgery and underwent CABG x5 on 08/10. Patient with postoperative anemia and significant impairment in mobility. Pt is progressing slowly with therapy d/t weakness, self care deficit, decreased endurance and balance, and decreased functional mobility. Pt requiring acute inpt rehab for multidisciplinary team of nursing, therapy, and physicians. Pt is willing and able to participate in 3 hr/day inpt rehab to d/c home safely. Daughter states pt's prior level of function was independent. Currently patient has generalizedweakness. He lives by himself in a one-step up house. He denies any shortness of breath, nausea, vomiting, fever, chills. Denies chest pain. He is complaining of some constipation. He tells me that is in the process of sellinghis home. Preadmission screen was completed. Patient admitted to IRF. Objective GeneralVS:Vital Signs: Date Time Temp Pulse Resp B/P B/P Pulse O2 O2 Flow FiO2 Mean Ox Delivery Rate 08/18 0706 98.1 81 18 152/72 98.5 95 Room air 08/18 0432 73 14 130/67 88.0 98 08/18 0337 93 Room air 08/18 0002 97.5 71 16 120/71 87.5 97 08/17 2045 93 Room air 08/17 1937 98.1 91 16 109/60 76.5 97 08/17 1545 97.5 70 16 128/76 0.0 61 Room air 08/17 1053 97.9 78 16 136/68 90.4 94 Room air PATIENT WEIGHT: Weight (lb): 221Weight (oz): 9.03Weight (kg): 100.500 Medications:Active Meds + DC'd Last 24 HrsEzetimibe (ZETIA) 10 MG DAILY PO Amiodarone HCl (CORDARONE) 200 MG BID PO Aspirin (ASPIRIN) 81 MG DAILY PO Clopidogrel Bisulfate (Plavix) 75 MG DAILY PO Cyanocobalamin (Vitamin B-12 500 mcg tab) 500 MCG DAILY PO Ferrous Sulfate (FERROUS SULFATE) 325 MG DAILY PO Furosemide (LASIX) 40 MG DAILY PO Polyethylene Glycol (MIRALAX) 17 GM DAILY PO Pantoprazole (PROTONIX) 40 MG DAILY@0600 PO Budesonide (PULMICORT RESPULES) 0.5 MG RTBID INH Formoterol Fumarate (PERFOROMIST) 20 MCG RTBID NEB Docusate Sodium (COLACE) 100 MG BID PO Ipratropium [place] (ATROVENT) 500 MCG RTQ6H INH Metoprolol Tartrate (LOPRESSOR) 25 MG Q12HR PO Sennosides (Senna Lax 8.6 MG TABLET) 17.2 MG BEDTIME PO Amiodarone HCl (CORDARONE) 200 MG TID PO (DC) Hydralazine HCl (APRESOLINE) 10 MG Q6H PRN PRN IV Acetaminophen (TYLENOL) 650 MG Q4H PRN PRN PO Ipratropium [place] (ATROVENT) 500 MCG RTQ2H PRN PRN INH Melatonin (Melatonin) 6 MG BEDTIME PRN PO Ondansetron HCl (ZOFRAN ODT) 4 MG TID PRN PRN SL Physical ExamGeneral appearance: alert, awakePsych: alert, normal affect, oriented x 3HEENT: anicteric, mucosal membranes moist, pupils reactive to light, sclera clearNeck: non-tender, supple, no JVDCardiovascular: irregular rhythm, S1/S2, cap refill wnl, pulses intactRespiratory: diminished breath sounds, on oxygen, aerating wellAbdomen: bowel sounds present, non-distended, soft, non-tenderSkin: dry, normal temperature, no rash, bruising R thigh, mild L thigh, BUE, R hand Sl tender/edema, sternum incision RSH site CDIMusculoskeletal - general: Musculoskeletal - general: OA changes, normal tone, no swelling, Moves all 4 exts AG, calves NT, no cords, Homans negNeuro/TEAROOM HOST/HOSTESS: alert, oriented X 3, CNII-XII intact, normal speech, no motor deficits, no sensory deficits ResultsFindings/Data:Laboratory Tests 08/17 0521 Chemistry Sodium (134 - 147 mEq/L) 138 Potassium (3.4 - 5.0 mEq/L) 4.0 Chloride (100 - 108 mEq/L) 105 Carbon Dioxide (21 - 33 mEq/l) 25 Anion Gap (0 - 20) 12 BUN (7 - 18 mg/dL) 29 Creatinine (0.6 - 1.3 mg/dL) 1.9 Glomerular Filtr Rate (70 - 80) 35.2 Glucose (70 - 110 mg/dL) 107 Calcium (8.0 - 10.5 mg/dL) 9.4 Magnesium (1.80 - 2.40 mg/dL) 2.11 Total Bilirubin (0.0 - 1.0 mg/dL) 0.60 AST (15 - 37 IUnit/L) 20 ALT (30 - 65 IUnit/L) < 7 Total Alk Phosphatase (20 - 125 IUnit/L) 69 Total Protein (6.4 - 8.2 g/dL) 5.8 Albumin (3.4 - 5.0 g/dL) 3.30 Hematology WBC (4.5 - 11.0 x10 3/uL) 8.7 RBC (4.00 - 5.60 x10 6/uL) 3.02 Hgb (12.5 - 16.9 g/dL) 9.1 Hct (37.5 - 50.7 %) 28.5 MCV (81.0 - 99.0 fL) 94.4 MCH (27.0 - 33.0 pg) 30.1 MCHC (33.0 - 37.0 g/dL) 31.9 RDW (11.5 - 14.5 %) 14.3 Plt Count (150 - 400 x10 3/uL) 293 MPV (7.0 - 9.0 fL) 9.7 Neut % (Auto) (56.0 - 77.0 %) 64.3 Lymph % (Auto) (14.0 - 32.0 %) 14.4 [place] % (Auto) (4.8 - 9.0 %) 12.6 Eos % (Auto) (0.3 - 3.7 %) 6.9 Baso % (Auto) (0.0 - 2.0 %) 0.7 Neut # (Auto) (2.0 - 7.6 x10 3/uL) 5.59 Lymph # (Auto) (1.0 - 3.8 x10 3/uL) 1.25 [place] # (Auto) (0.1 - 0.8 x10 3/uL) 1.10 Eos # (Auto) (0.0 - 0.2 x10 3/uL) 0.60 Baso # (Auto) (0.0 - 0.2 x10 3/uL) 0.06 Abs Immat Gran (auto) (0.00 - 0.03 x10 3/uL) 0.10 Add Manual Diff NO Immature Gran % (0.0 - 2.0 %) 1.1 Nucleated RBC % (0 - 0 %) 0.0 Nucleated RBCs # (Man) (0.0 - 0.1 x10 3/uL) 0.00 Diagnosis, Assessment PlanProblem List/A P: 1. CAD (coronary artery disease) 2. Afib 3. HTN (hypertension) 4. S/P CABG x 5 5. Impaired functional mobility, balance, gait, and endurance Free Text A P:Assessment:Multivessel CAD08/10: S/p CABG x5-Dr. Lind-fib s/p a LAAEndoscopic RGSV harvest08/16: Echo-EF 50-54%, small pericardial effusionSmall bilateral pleural effusions.Muscle weakness Unsteady gaitAlzheimer's dementiaPostoperative anemiaAKI on CKDHTNImpairment in self-care, ADLs and functional mobility Plan:-Continue PT/OT-Case management for safe discharge planning.-Decubitus prevention-protective hydrating lotion-turn every 2 emsws-bfukqrl-Yfgxq program-MiraLAX, senna,-Nutrition, monitor the patient's p.o. intake, check albumin 3.3 and prealbumin,dietary consult, protein supplements.-Strict fall and safety precaution-DVT bwngnkydzds-KIAj-CV prophylaxis on Protonix-CAD on Plavix and aspirin, intolerant to statins-Pulmonary toilet frequent I-S, nebs, wean O2-Early mobilization-OOB to chair-Work on bed mobility, transfer training, ADLs, pre-gait and gait exercises as tolerable. -Increase endurance and strength-Pain management-Postop care as per CVS-Monitor telemetry-Cardiology on case-LADARIUS as per nephrology-Dementia/confusion-Higher level of nursing care and monitoring for safety-Appreciate consultants input-Continue current medication-Strict sternal precautions-Monitor sites of bruising and right hand pain-from previous phlebotomy sites-nosigns of infection-Labs reviewed-WBC normal, hemoglobin 9.1, platelets normal, creatinine 1.9, magnesium ovetze-Icihnn-vsdenuq B12 and ferrous sulfate-Advance therapies as tolerable-Patient has poor safety awareness due to dementia with impaired balance and gait, decreased strength and endurance. Continues to benefit from rehabilitation to maximize mobility for safe return to home-Check labs on Sunday Progress: SIT TO STAND FROM BED W/ MIN A. PIVOTS TO W/C W/ MIN A. SIT<-.STAND FROM TOILET AND W/C W/ MOD A AND CUES NOT TO PUSH/PULL W/ ARMS. GAIT W/ RW X 40' W/ CUES FOR POSTURE AND SAFETY, MIN A. SPO2 98-99% ON RA,HR PER TELE 70-80S BUT IN A FIB. PM RPlease see team note.Plan and goals discussed with the patient. I agree with the teams findingELOS: [ ]FR-inwo-GURWS- TT 35 min>50% with discussing with patient about progress, rehab plan of care, goals, expectations, needs, and medical issues, examination. MAR and EMR reviewed. All Questions answered.Orders: Procedure Date/time Status CBC W/AUTO DIFF 08/21 040 Active BASIC METABOLIC PANEL 08/21 0400 Active NEB TREATMENT SUBSQ 08/18 0925 Active NEB TREATMENT SUBSQ 08/18 0347 Active NEB TREATMENT SUBSQ 08/17 2045 Active Consultants: cardiology, cardiovascular surgery, hospitalist, nephrologyRehab attestation:Face to face exam completed. Treatment plan discussed with patient. Meets continued stay criteria. Agree with interdisciplinary treatment plan. at 1154 RPT #:[id number] OF REPORTPRProgress sbmg1960-89-03D98:26:00G.[id number] for patient tuvpENOOZTAQSTZURQ2839-51-99E11:55:08 [facility] 2022-08-17 15:29:00 [id number] EwZeTX7qp9is1HXfHzw5oCWpWxNgaR5guasNS iE8429-38-88X94:29:00 [facility] HospitalCardiothoracic Surgery ProgREPORT#:[id number] REPORT STATUS: SignedDATE:08/17/22 TIME: 1529 PATIENT: BRENNAN AHN UNIT #: [id number]#: [id number] [place] [facility] [place]OB[place] [birth year] AGE: 82 SEX: M ATTEND: Arthur Fuentes MDADM AUTHOR: Pamela Burnette * ALL edits or amendments must be made on the electronic/computer document * Review of SystemsAll systems rev neg: except as marked Quality: Trauma Gen Surg Advanced Care Plan 65 or OlderDiscussed with: patientDiscussion included: code status Current MedicationsCurrent medication review:I attest that the foregoing medication list in the medical record is true, accurate, and complete to the best of my knowledge. Diagnosis, Assessment PlanHospital course to date:Hospital course to date:82 year old with PMH of hypertension, atrial fibrillation, On Eliquis, Hx of SVT ablation 20 years ago transferred to [facility] with new findings of multi-vessel CAD. He reports he was woken from Sleep on Sunday AM with COmplaints of chest pains. EMS aas called and patient was taken to [facility]. He underwent LHC and found to have multi-vessel CAD by Dr Sanchez. Patient was transferred to [facility] for CABG. Patient lives independently. Daughter is at bedside. Patient reports last dose of Elliquis was Sunday AM. Echo was done at [facility] showing EF 55%, Mild MR, Mild AI, mild LVH. According to his records, he has a hx of Chronic kidney disease with baseline Creatine reportedly 1.5. He does report he has seen a renal MD in the past. Assessment/ Plan1) CAD, Mutli-vessel2) hypertension Continue BBLKR Add Norvasc 5 mg3) Atrial fibrillation. Last dose of Eliquis Sunday AM Obtain EKG4) BPH Continue flomax Workup for CABG underway. Patient was seen and examined by Dr Hurd. Coronary artery bypass surgery was discussed with the patient. The risk of the operation,including the STS score, cristian of blleding, infection, heart attack, stroke, Tracheostomy etc discussed with the patient. CT chest, carotid US, Vein mapping ordered. 3/10/23POD 1 s/p CABG x 5 (NGUYEN-LAD, SVG-Olga Lidia, SVG-OM, SVG-LPLA, SVG-PDA), PVI, ALAA, EVH (RGSV)Patient hemodynamically stable this morning, having episodes of vagal response and BP drops 20 points, SR and sinus arrythmnia noted on monitoring analyst, V epicardial wires on backup rate of 50Amiodarone bolus and dripKeep MS chest tube and monitor outputs, DC LP chest tube after ambulationMinimal oxygen requirements on 2l nasal cannula, encourage deep breathing and I-S useCXR and labs reviewedPain managementGlycemic control on insulin dripCardiac diet, nutritional supplementsBowel regimen, + gasStrict I Os, daily weights, albmuin x 1 given for decreased UOP- monitor hourlySCDs for DVT and PPI for GI prophylaxisPT/OTMonitor patient closely in CVICU, continue supportive carePatient seen with Dr. Hurd, plan of care discussed with ICU team. 08/12 Alert and oriented, up in the chairRemains on amiodarone drip for A-fibWean dopamine offChest x-ray reviewed. Breathing comfortably on room airCreatinine increased to 1.9, urine output 1.5 L last night after the boluses of LasixRepeat renal panel today show creatinine 2.2. Nephrology consulted, hold off onadditional LasixReplace electrolytesEncourage I-S and mobilizationGlycemic controlledKeep in CVICU for close monitoringPatient seen and plan reviewed with Dr Piper, Dr Kirkpatrick, [facility] and multidisciplinaryteam 08/13 Intermittently confused. Continue delirium precautionsMinimal O2 requirements, wean O2 as toleratedAllow for permissive hypertension as urine output improved with higher blood pressureMonitor renal functionEncourage p.o. intake, bowel regimenRemains in A-fib, heart rate fairly controlled. Amiodarone drip at 0.5Discontinue mediastinal chest tubeGlycemic controlKeep in CVICU for close monitoring.Patient seen and plan reviewed with Dr Kirkpatrick, [facility] multidisciplinary teamFamily updated at the bedside 08/14 Patient is alert and oriented, delirium precautionsO2 requirements, encourage I-SPermissive hypertension for better renal perfusionCreatinine trending down, good urine output. Hold Lasix for nowEncourage p.o. intake, bowel regimenElectrolyte replacement as neededKeep in CVICU todayPlan for rehab. Awaiting insurance approvalPatient was seen and plan reviewed with MCKAYLA Rojo and multidisciplinary team 08/15 No major events overnight Resp status stable on RA. Encourage ISHD stable. Remains in A fib, HR controlled Continue PO amio, BB increased to 25 mg BID Renal function improved, good UOP Will DC pacing wires tomorrow PT/OTPlan for rehab. Awaiting insurance approvalPatient was seen and plan reviewed with MCKAYLA Rojo and multidisciplinary team 08/16Creatine 1.9--> 2.0- Followed by Renal. appreciate input. DE-LINED. Longo outAmbulating. UO: PO lasix today. Cardiac: Atrial fib- rate controlled. On po amio- Pacing wires removed- Echo ordered.DVT studies orderd. Respiratory: On room air. Small left pleural effsuion. GI: + BMGU: Voiding well. Renal followingDispo: Rehab when bed available. 08/17Patient resting comfortable. Seen in inpatient rehab.Ambulating well. Working with PTVoiding well. Positive bowel movements.Respiratory on room air.Cardiac: Sinus rhythm. Will decrease amiod to 200 BIDGI: + BMContinue pT/OTmaking good progress. Consultants: cardiology, cardiovascular surgery, hospitalist, nephrology at 1534 RPT #:[id number] OF REPORTPRProgress [id number]:29:00G.[id number] for patient ycssEQNIVRRMLLJFIO7796-40-50T17:35:01 [facility] 2022-08-17 15:00:00 [id number]+QK7 2phNRBGK7xXQ2zEsCBLIAFgIjJud7SSM5wF3f Kk1267-30-11V70:00:00 [facility] ([facility])Nephrology Consultation NoteREPORT#:[id number] REPORT STATUS: SignedDATE:08/17/22 TIME: 1500 PATIENT: BRENNAN AHN UNIT #: [id number]#: [id number] [place] [facility] [place]DOB: [birth year] AGE: 82 SEX: M ATTEND: Arthur Fuentes [facility] AUTHOR: Maura Terrazas MD * ALL edits or amendments must be made on the electronic/computer document * History of Present IllnessRequesting clinician: Dr Ruiz for consult:LADARIUS/hypervolemiaChief complaint:chest painPCP:PCP: No Primary or Family Physician HPI:82-year-old male known to have hypertension, atrial fibrillation, supraventricular tachycardia with requiring ablation presenting with multivesselcardiovascular disease and he underwent CABG 07/13/2022. He endorsed having kidney issues in the past and seeing a specialist managers at [place] but his kidney function had been stable since then.He developed oliguria,LADARIUS and hypervolemia post CABG but had now improved and was transferred to rehab. History - Adult longitudinalPast medical history:Reports: Atrial fibrillation, Coronary artery disease, Dementia, Kidney disease/stones. Past surgical history:Reports: CABG. Additional surgical history:Crevial Laminectomy amputation of left atrial appendageFamily history:Reports: Hypertension. Alcohol use: Denies EtOH useDrug use: Denies recreational drugsSmoking status for patients 13 years old or older: Former SmokerAllergies:Coded Allergies:Jpweqcu-XSH-LdY Reductase Inhibitor (Severe, UNKNOWN 08/16/22) Review of SystemsConstitutional:Denies: fever, generalized weakness. Skin:Denies: laceration, rash. Allergy/Immun:Denies: hives, itching. Eyes:Denies: redness, discharge. ENT:Denies: sore throat, throat pain, throat swelling. Respiratory:Denies: JANG (dyspnea on exertion), hemoptysis, non productive cough. Cardiovascular:Denies: chest pain, JANG (dyspnea on exertion), edema. GI:Denies: abdominal pain, anorexia, constipation. :Denies: dysuria, flank pain, frequency. Musculoskeletal:Denies: arthritis, extremity pain, extremity swelling. Objective GeneralVS/I O:Vital Signs: Date Time Temp Pulse Resp B/P B/P Pulse O2 O2 Flow FiO2 Mean Ox Delivery Rate 03/17 2124 96 Room air 21 08/18 1954 36.6 83 16 165/80 108.0 95 Room air 08/18 1525 36.7 70 18 127/64 84.9 97 Room air 08/18 1012 36.5 69 18 116/62 80.3 97 Room air 08/18 0919 95 Room air 08/18 0706 36.7 81 18 152/72 98.5 95 Room air 08/18 0432 73 14 130/67 88.0 98 08/18 0337 93 Room air 08/18 0002 36.4 71 16 120/71 87.5 97 24 hour I O ending at 0700: 08/18 0700 08/17 1900 Intake Total 965 Output Total Balance 965 Intake, Oral 965 Number 1 Bowel Movements Number 0 Incontinent Voids Number Voids 1 PATIENT WEIGHT: Weight (lb): 221Weight (oz): 9.03Weight (kg): 100.500 Physical ExamGeneral appearance: alert, awake, orientedHead/eyes: atraumatic, clear cornea, EOMIENT: moist mucous membranes, normal noseNeck: no JVD, no masses or swellingCardiovascular: normal heart sounds, regular rate and rhythmRespiratory: aerating well, clear to auscultationAbdomen: non-tender, softGenitourinary: no bladder distention, no flank painExtremities: pitting edema, no gangrene, no swelling Diagnosis, Assessment PlanConsultants: cardiology, cardiovascular surgery, hospitalist, nephrology Free Text DxA P NotesFree text DxA P notes:82-year-old male known to have hypertension, atrial fibrillation, supraventricular tachycardia with requiring ablation presenting with multivesselcardiovascular disease and he underwent CABG 07/13/2022. Transferred to rehab for therapy. Nephrology following for: 1. Acute kidney injury: Most likely prerenal as he recently had surgery. Resolving with better hemodynamics. 2. Hypervolemia:Patient at high risk of volume overload so would reccommend lasix PO .He recently developed orthostasis so dose reduced to 40 PO daily. 3. Electrolytes: His electrolytes appear to be in normal range plan is to monitor and replace as needed. 4. HTN:Controlled with current medications.Plan to continue same.He develops orthostasis so medication doses minimised. at 2315 [facility] #:[id number] OF REPORTTRFjwmnqhsrghh0529-46-08J49: 00:00G.[id number] for patient hmgkZQFHSATYYBDYNQ9952-96-41W47:15:57 [facility] 2022-08-17 15:00:00 [id number] nLK9CA1gRZBohRBV9vKQ7sGklf+hrgVVFe20/ X+1949-41-30W71:00:00 [facility] HospitalInternal Medicine Prog. NoteREPORT#:[id number] REPORT STATUS: SignedDATE:08/17/22 TIME: 1500 PATIENT: BRENNAN AHN UNIT #: [id number]#: [id number] [address] [birth year] AGE: 82 SEX: M ATTEND: Arthur Fuentes MDADM AUTHOR: Devin Fox DO * ALL edits or amendments must be made on the electronic/computer document * SubjectiveChief complaint:pt s c/o . now in rehab Review of SystemsAll systems rev neg: except as marked Objective GeneralVS/I O:Vital SignsDate Temp Pulse Resp B/P B/P Mean Pulse Ox UkG957/-08/17 97.3-98.6 69-82 14-20 118-155/64-78 86.4-103.3 92-98 Last Documented: Result Date Time Pulse Ox 94 08/17 1053 B/P 136/68 08/17 1053 B/P Mean 90.4 08/17 1053 O2 Delivery Room air 08/17 1053 Temp 97.9 08/17 1053 Pulse 78 08/17 1053 Resp 16 08/17 1053 24 hour I O ending at 0700: 08/17 0700 08/16 1900 Intake Total 120 Output Total 600 200 Balance -480 -200 Intake, Oral 120 Number 0 0 Incontinent Voids Number Voids 3 1 Output, Urine 600 200 Patient 100.5 kg Weight Weight Bed scale Measurement Method PATIENT WEIGHT: Weight (lb): 221Weight (oz): 9.03Weight (kg): 100.500 Medications:Active Meds + DC'd Last 24 HrsEzetimibe (ZETIA) 10 MG DAILY PO Aspirin (ASPIRIN) 81 MG DAILY PO Clopidogrel Bisulfate (Plavix) 75 MG DAILY PO Cyanocobalamin (Vitamin B-12 500 mcg tab) 500 MCG DAILY PO Ferrous Sulfate (FERROUS SULFATE) 325 MG DAILY PO Furosemide (LASIX) 40 MG DAILY PO Polyethylene Glycol (MIRALAX) 17 GM DAILY PO Pantoprazole (PROTONIX) 40 MG DAILY@0600 PO Budesonide (PULMICORT RESPULES) 0.5 MG RTBID INH Formoterol Fumarate (PERFOROMIST) 20 MCG RTBID NEB Docusate Sodium (COLACE) 100 MG BID PO Ipratropium [place] (ATROVENT) 500 MCG RTQ6H INH Metoprolol Tartrate (LOPRESSOR) 25 MG Q12HR PO Sennosides (Senna Lax 8.6 MG TABLET) 17.2 MG BEDTIME PO Amiodarone HCl (CORDARONE) 200 MG TID PO Hydralazine HCl (APRESOLINE) 10 MG Q6H PRN PRN IV Acetaminophen (TYLENOL) 650 MG Q4H PRN PRN PO Ipratropium [place] (ATROVENT) 500 MCG RTQ2H PRN PRN INH Melatonin (Melatonin) 6 MG BEDTIME PRN PO Ondansetron HCl (ZOFRAN ODT) 4 MG TID PRN PRN SL Physical ExamGeneral appearance: alert, awake, orientedHead/Eyes: EOMI, PERRLANeck: non-tender, no JVDCardiovascular: normal heart sounds, regular rate rhythmRespiratory: aerating well, clear to auscultationAbdomen: non-tender, normal bowel soundsExtremities: Extremities: no cyanosis, no edemaNeuro/TEAROOM HOST/HOSTESS: alert, oriented x 3, CNII-XII intact ResultsFindings/Data:Laboratory Tests 08/17/22520:[Embedded Image Not Available]Laboratory Tests 08/17 520 Chemistry Sodium (134 - 147 mEq/L) 138 Potassium (3.4 - 5.0 mEq/L) 4.0 Chloride (100 - 108 mEq/L) 105 Carbon Dioxide (21 - 33 mEq/l) 25 Anion Gap (0 - 20) 12 BUN (7 - 18 mg/dL) 29 H Creatinine (0.6 - 1.3 mg/dL) 1.9 H Glomerular Filtr Rate (70 - 80) 35.2 L Glucose (70 - 110 mg/dL) 107 Calcium (8.0 - 10.5 mg/dL) 9.4 Magnesium (1.80 - 2.40 mg/dL) 2.11 Total Bilirubin (0.0 - 1.0 mg/dL) 0.60 AST (15 - 37 IUnit/L) 20 ALT (30 - 65 IUnit/L) < 7 L Total Alk Phosphatase (20 - 125 IUnit/L) 69 Total Protein (6.4 - 8.2 g/dL) 5.8 L Albumin (3.4 - 5.0 g/dL) 3.30 L Laboratory Tests 08/17 0521 Hematology WBC (4.5 - 11.0 x10 3/uL) 8.7 RBC (4.00 - 5.60 x10 6/uL) 3.02 L Hgb (12.5 - 16.9 g/dL) 9.1 L Hct (37.5 - 50.7 %) 28.5 L MCV (81.0 - 99.0 fL) 94.4 MCH (27.0 - 33.0 pg) 30.1 MCHC (33.0 - 37.0 g/dL) 31.9 L RDW (11.5 - 14.5 %) 14.3 Plt Count (150 - 400 x10 3/uL) 293 MPV (7.0 - 9.0 fL) 9.7 H Neut % (Auto) (56.0 - 77.0 %) 64.3 Lymph % (Auto) (14.0 - 32.0 %) 14.4 [place] % (Auto) (4.8 - 9.0 %) 12.6 H Eos % (Auto) (0.3 - 3.7 %) 6.9 H Baso % (Auto) (0.0 - 2.0 %) 0.7 Neut # (Auto) (2.0 - 7.6 x10 3/uL) 5.59 Lymph # (Auto) (1.0 - 3.8 x10 3/uL) 1.25 [place] # (Auto) (0.1 - 0.8 x10 3/uL) 1.10 H Eos # (Auto) (0.0 - 0.2 x10 3/uL) 0.60 H Baso # (Auto) (0.0 - 0.2 x10 3/uL) 0.06 Abs Immat Gran (auto) (0.00 - 0.03 x10 3/uL) 0.10 H Add Manual Diff NO Immature Gran % (0.0 - 2.0 %) 1.1 Nucleated RBC % (0 - 0 %) 0.0 Nucleated RBCs # (Man) (0.0 - 0.1 x10 3/uL) 0.00 Diagnosis, Assessment PlanHospital course to date:82-year-old male with past medical history of hypertension, atrial fibrillation,supraventricular tachycardia status post ablation who was admitted with reports of multivessel coronary artery disease found on a cardiac catheterization done at [facility]. Patient was transferred to [facility] for CABG. He underwent GNFAo6s. 1. Coronary artery disease-Status post CABG x5, ALAA, PVI-Continue metoprolol, Plavix, aspirin 2. Atrial fibrillation-Continue po amiodarone for rate control- taper AMIO per cards-Continue metoprolol-Monitor and review telemetry 3. Debility-.-PT/OT- PMR- Inpt Rehab 4. ARF- Trend cr 1.3-1.9-2.2-2.0-1.9- post op, post lasix therefore likely pre-renal- baseline CKD is suspected- nephro consulted 5. anemia- acute, post op expecteed- monitor and transfuse if hg <7- cont po Iron- Trend Hg 9.1 6. Delirium-Likely due to sundowning-Monitor closely-Patient is neurologically intact dispo: INPT REHABtotal time spent 35mins Consultants: cardiology, cardiovascular surgery, hospitalist, nephrology Quality: Gen Med Crit Care Current MedicationsCurrent medication review:I attest that the foregoing medication list in the medical record is true, accurate, and complete to the best of my knowledge. Advanced Care Plan 65 or OlderDiscussed with: patientDiscussion included: code status at 8127 RPT #:[id number] OF REPORTPRProgress fmyd0767-39-12W21:00:00G.[id number] -[id number] for patient gotyDIKFDPSMWVFQJI8013-56-02I30:58:25 [facility] 2022-08-17 11:52:00 [id number]+csIzgBSNyKALKV73BRv k0UeVcovsqVsOBnojxOZtpBXlC0t0wFh6NgP9 rk9467-71-68Q82:52:00 [facility] ([facility])Rehab Indiv Overall POCREPORT#:[id number] REPORT STATUS: SignedDATE:08/17/22 TIME: 1152 PATIENT: BRENNAN AHN UNIT #: [id number]#: [id number] [address] AGE: 82 SEX: M ATTEND: Arthur Fuentes [facility] AUTHOR: Arthur Fuentes MD * ALL edits or amendments must be made on the electronic/computer document * Individualized Overall POC HPIImpairment group: cardiac disorders NOTE Document ONLY ONE Impairment GroupEtiologic diagnosis:CAD MULTIVESSEL A FIB PAROXYSMAL Medical Expected CourseExpected DC destination:Expected DC destination: Home Problem List/A P: 1. CAD (coronary artery disease) 2. Afib 3. HTN (hypertension) 4. S/P CABG x 5 5. Impaired functional mobility, balance, gait, and endurance Medical prognosis: goodMedical prognosis details: pt motivation, family/caregiver support, D/C planExpected course of Tx:-Comprehensive inpatient rehabilitation with physical, occupational and speech therapy 3 hours a day for 5 to 6 days per week-25/12 rehabilitation physician supervision-25/12 rehabilitation nursing care.-Case management for safe discharge planning.-Rehab MD to monitor comorbidities and functional progress.-Decubitus prevention-protective hydrating lotion-turn every 2 wnish-mfrijrx-Fqgxq program-MiraLAX, senna,-Nutrition, monitor the patient's p.o. intake, check albumin three-point and prealbumin, dietary consult, protein supplements.-Strict fall and safety precaution-DVT zwttlmsbgot-BGIx-HK prophylaxis on Protonix-CAD on Plavix and aspirin, intolerant to statins-Pulmonary toilet frequent I-S, nebs, wean O2-Early mobilization-OOB to chair-Work on bed mobility, transfer training, ADLs, pre-gait and gait exercises as tolerable. -Increase endurance and strength-Pain management-Postop care as per CVS-Monitor telemetry-Cardiology on case-LADARIUS as per nephrology-Dementia/confusion-Higher level of nursing care and monitoring for safety-Appreciate consultants input-Continue current medication-Strict sternal precautions-Monitor sites of bruising and right hand pain-from previous phlebotomy sites-nosigns of infection-Labs reviewed-WBC normal, hemoglobin 9.1, platelets normal, creatinine 1.9, magnesium aiaqxc-Acluvg-pvssstd B12 and ferrous sulfate-ELOS: 14 days-GOALS: Modified independent, learn sternal precautions-Advance therapies as tolerable Functional Expected CourseFunctional expected course:The data set between the solid lines has been imported from multidisciplinary team documentation: ANTICIPATED SERVICES IN ACUTE INPATIENT REHAB: DISCIPLINE Physical Therapy Occupational Therapy Speech TherapyINTENSITY (minutes/day) 90 90FREQUENCY (days/week) 5 6DURATION (# of days) 14 14 EXPECTED FUNCTIONAL OUTCOMES: CARE Rolling left and Independent (6) right discharge goal: CARE Sitting to Independent (6) lying discharge goal: CARE Lying to sitting Independent (6) on side of bed discharge goal: CARE Sitting to Independent (6) standing discharge goal: CARE Chair/bed to Independent (6) chair transfer discharge goal: CARE Car transfer Independent (6) discharge goal: CARE Walking 10 Independent (6) feet discharge goal: CARE Walking 50 feet Independent (6) with two turns discharge goal: CARE Walking 150 Independent (6) feet discharge goal: CARE Walking 10 feet on Independent (6) uneven surface discharge goal: CARE 1 step (curb) Independent (6) discharge goal: CARE 4 steps Supervise/touch asst (4) discharge goal: CARE 12 steps Not applicable discharge goal: CARE Picking up Setup/clean-up only (5) object discharge goal: CARE [place] 50 feet Independent (6) with two turns discharge goal: CARE [place] 150 Independent (6) feet discharge goal: CARE Toileting hygiene Independent (6) discharge goal: CARE Transfer on/off toilet Independent (6) or commode discharge goal: CARE Eating discharge goal: Independent (6) CARE Oral hygiene Independent (6) discharge goal: CARE Shower/bathe Setup/clean-up only (5) self discharge goal: CARE Upper body Independent (6) dressing discharge goal: CARE Lower body Independent (6) dressing discharge goal: CARE Putting on/taking Independent (6) off footwear discharge goal: Bowel function goal: PATIENT WILL REMAIN CONTINENT OF BOWELS WITH BM AT LEAST ONCE EVERY 3 DAYS.Bladder function goal: PATIENT WILL REMAIN CONTINENT OF BLADDER-UTILIZING URINALOR UP TO BATHROOM FOR VOIDING. ELOS Attestation:Based upon the review of clinical staff recommendations of frequency, duration and intensity and individual assessment of this patient, I estimate the following: See H P Estimated length of stay:14 days MD Review/RecommendationAttestation:Base d upon my physical evaluation of the patient and input from the interdisciplinary team members I have developed this interdisciplinary overall plan of care and determined the admission to the IRF is reasonable and necessary.The IOPOC will be updated weekly and modified under my direction. Patient can be expected to actively participate in, and benefit from, an intensive rehab therapy program whose intensity is not provided in lower levels of care.Complex acute rehab needs: Custom therapy tx plan, Mgt of complex Co-morb, Med adjustment/mgmt., New medical diagnosis, Postsurgery req mgt/care, Nutritional compromise, Hospitalist consult, Complex pain management, VTE Risk at 1220 RPT #:[id number] OF REPORTCLClinical qcnr1890-93-55S56:52:00G.[id number] -[id number] for patient gyuvFDMPAZGFFBAXGR0441-30-69E50:21:06 [facility] 2022-08-17 10:14:00 [id number] yjuOvCv6hAZ6oQdkpzWSUIc6l74Y41itv+lVt Rs2809-06-09K87:14:00 [facility] ([facility]ITALCardiology ConsultationREPORT#:[id number] REPORT STATUS: SignedDATE:08/17/22 TIME: 1014 PATIENT: BRENNAN AHN UNIT #: [id number]#: [id number] [address] [birth year] AGE: 82 SEX: M ATTEND: Arthur Fuentes [facility] AUTHOR: Catrina Shetty AGACNAmbreen * ALL edits or amendments must be made on the electronic/computer document * History of Present Illness HPIRequesting Clinician: Dr. Burkett for consult:Cardiology managementChief complaint:NonePCP:PCP: No Primary or Family Physician HPI:82 YO male with MHX of Afib, HTN, HLD, CAD who is s/p 5 vessel CABG and PVI and ALAA. The patient is transferred to [facility] for inpatient rehabilitation. We are consulted for continuity of cardiac-related care. 1. CAD s/p CABG x 5 (NGUYEN-LAD, SVG-Olga Lidia, SVG-OM, SVG-LPLA, SVG-PDA) continue asa, bb, plavixecho 08/12- LVEF 50-54%, left pleural effusionintolerant of statin, will consider nonstatin med such as Repatha or Nexletol outpatientpost-op per CTS 2. A-fib: Paroxysmal- rate controlleds/p PVI and ARISTEO amputationon amiodarone and BB 3. HTNBP on upward trendcontinue metoprolol 4. AKIeven fluid balanceper Nephrology continue supportive careDoing good post-opFor rehab History - Adult longitudinalPast medical history:Reports: Atrial fibrillation, Coronary artery disease, Dementia, Kidney disease/stones. Past surgical history:Reports: CABG. Additional surgical history:Crevial Laminectomyamputation of left atrial appendageFamily history:Reports: Hypertension. Alcohol use: Denies EtOH useDrug use: Denies recreational drugsSmoking status for patients 13 years old or older: Former SmokerAllergies:Coded Allergies:Trcjjjn-PMI-ZcY Reductase Inhibitor (Severe, UNKNOWN 08/16/22) Review of SystemsConstitutional:Denies: fatigue, generalized weakness. Respiratory:Denies: JANG (dyspnea on exertion), SOB. Cardiovascular:Reports: edema. Denies: chest pain. Objective GeneralVS/I O:Vital Signs: Date Time Temp Pulse Resp B/P B/P Pulse O2 O2 Flow FiO2 Mean Ox Delivery Rate 08/17 0705 36.8 75 16 132/64 86.4 95 Room air 08/17 0628 36.3 69 14 124/69 87.0 92 08/17 0003 36.8 76 14 118/76 90 98 Room air 08/16 1934 37.0 82 14 127/68 87.3 96 08/16 1645 36.4 76 20 155/78 103.3 93 24 hour I O ending at 0700: 08/17 0700 08/16 1900 Intake Total 120 Output Total 600 200 Balance -480 -200 Intake, Oral 120 Number 0 0 Incontinent Voids Number Voids 3 1 Output, Urine 600 200 Patient 100.5 kg Weight Weight Bed scale Measurement Method PATIENT WEIGHT: Weight (lb): 221Weight (oz): 9.03Weight (kg): 100.500 Medications:Active Meds + DC'd Last 24 HrsAspirin (ASPIRIN) 81 MG DAILY PO Clopidogrel Bisulfate (Plavix) 75 MG DAILY PO Cyanocobalamin (Vitamin B-12 500 mcg tab) 500 MCG DAILY PO Ferrous Sulfate (FERROUS SULFATE) 325 MG DAILY PO Furosemide (LASIX) 40 MG DAILY PO Polyethylene Glycol (MIRALAX) 17 GM DAILY PO Pantoprazole (PROTONIX) 40 MG DAILY@0600 PO Budesonide (PULMICORT RESPULES) 0.5 MG RTBID INH Formoterol Fumarate (PERFOROMIST) 20 MCG RTBID NEB Docusate Sodium (COLACE) 100 MG BID PO Ipratropium [place] (ATROVENT) 500 MCG RTQ6H INH Metoprolol Tartrate (LOPRESSOR) 25 MG Q12HR PO Sennosides (Senna Lax 8.6 MG TABLET) 17.2 MG BEDTIME PO Amiodarone HCl (CORDARONE) 200 MG TID PO Hydralazine HCl (APRESOLINE) 10 MG Q6H PRN PRN IV Acetaminophen (TYLENOL) 650 MG Q4H PRN PRN PO Ipratropium [place] (ATROVENT) 500 MCG RTQ2H PRN PRN INH Melatonin (Melatonin) 6 MG BEDTIME PRN PO Ondansetron HCl (ZOFRAN ODT) 4 MG TID PRN PRN SL Physical ExamGeneral appearance: alert, awakeNeck: non-tender, no JVDCardiovascular: CV assessment: irregularly irregular, pedal edemaRespiratory: decreased breath sounds, no distressAbdomen: soft, non-tender, normal bowel sounds, no distentionGenitourinary: no flank pain, no urinary catheterLower extremity: LE assessment: edemaMusculoskeletal: normal inspectionNeuro/TEAROOM HOST/HOSTESS: alertSkin: dryPsychiatry: normal affect, normal mood ResultsFindings/Data:Laboratory Tests 08/17 05 Chemistry Sodium (134 - 147 mEq/L) 138 Potassium (3.4 - 5.0 mEq/L) 4.0 Chloride (100 - 108 mEq/L) 105 Carbon Dioxide (21 - 33 mEq/l) 25 Anion Gap (0 - 20) 12 BUN (7 - 18 mg/dL) 29 H Creatinine (0.6 - 1.3 mg/dL) 1.9 H Glomerular Filtr Rate (70 - 80) 35.2 L Glucose (70 - 110 mg/dL) 107 Calcium (8.0 - 10.5 mg/dL) 9.4 Magnesium (1.80 - 2.40 mg/dL) 2.11 Total Bilirubin (0.0 - 1.0 mg/dL) 0.60 AST (15 - 37 IUnit/L) 20 ALT (30 - 65 IUnit/L) < 7 L Total Alk Phosphatase (20 - 125 IUnit/L) 69 Total Protein (6.4 - 8.2 g/dL) 5.8 L Albumin (3.4 - 5.0 g/dL) 3.30 L Laboratory Tests 08/17 0521 Hematology WBC (4.5 - 11.0 x10 3/uL) 8.7 RBC (4.00 - 5.60 x10 6/uL) 3.02 L Hgb (12.5 - 16.9 g/dL) 9.1 L Hct (37.5 - 50.7 %) 28.5 L MCV (81.0 - 99.0 fL) 94.4 MCH (27.0 - 33.0 pg) 30.1 MCHC (33.0 - 37.0 g/dL) 31.9 L RDW (11.5 - 14.5 %) 14.3 Plt Count (150 - 400 x10 3/uL) 293 MPV (7.0 - 9.0 fL) 9.7 H Neut % (Auto) (56.0 - 77.0 %) 64.3 Lymph % (Auto) (14.0 - 32.0 %) 14.4 [place] % (Auto) (4.8 - 9.0 %) 12.6 H Eos % (Auto) (0.3 - 3.7 %) 6.9 H Baso % (Auto) (0.0 - 2.0 %) 0.7 Neut # (Auto) (2.0 - 7.6 x10 3/uL) 5.59 Lymph # (Auto) (1.0 - 3.8 x10 3/uL) 1.25 [place] # (Auto) (0.1 - 0.8 x10 3/uL) 1.10 H Eos # (Auto) (0.0 - 0.2 x10 3/uL) 0.60 H Baso # (Auto) (0.0 - 0.2 x10 3/uL) 0.06 Abs Immat Gran (auto) (0.00 - 0.03 x10 3/uL) 0.10 H Add Manual Diff NO Immature Gran % (0.0 - 2.0 %) 1.1 Nucleated RBC % (0 - 0 %) 0.0 Nucleated RBCs # (Man) (0.0 - 0.1 x10 3/uL) 0.00 Laboratory Tests 08/17 0521 Chemistry Magnesium (1.80 - 2.40 mg/dL) 2.11 Results: labs reviewed, vital signs reviewed, rhythm personally rev'dTelemetry Interpretation:atrial fibrillation with controlled rate Diagnosis, Assessment PlanPlan discussed with: patient, nurse Free Text DxA P NotesFree Text DxA P Notes:82 YO male with MHX of Afib, HTN, HLD, CAD who is s/p 5 vessel CABG and PVI and ALAA. The patient is transferred to [facility] for inpatient rehabilitation. We are consulted for continuity of cardiac-related care. 1. CAD s/p CABG x 5 (NGUYEN-LAD, SVG-Olga Lidia, SVG-OM, SVG-LPLA, SVG-PDA) continue asa, BB, plavixecho 08/12- LVEF 50-54%, left pleural effusionintolerant of statin, will consider nonstatin med such as Repatha or Nexletol outpatientstart Zetia 10 mg daily 2. A-fib: Paroxysmal - rate controlleds/p PVI and ARISTEO amputationcontinue amiodarone - will taper dose prior to dischargecontinue BBno need for AC since left atrial appendage was removed during CABG 3. HTN - normotensivecontinue metoprolol 25 mg BID 4. AKInephrology following at 1331 at 1808 RPT #:[id number] OF REPORTUMWyxvqdzhibjd5388-72-34R90: 14:00G.[id number] for patient fjhsFWIGHUIAYEJPZI0576-92-52D84:31:29 [facility] 2022-08-17 08:15:00 [id number]+pA2jrXKcD0 kFvG8JmRwVQGzM/+krGNrnhWlCaUsryoG71ZK GE2958-64-94L25:15:00 [facility] ([facility])Rehab History PhysicalREPORT#:[id number] REPORT STATUS: SignedDATE:08/17/22 TIME: 0815 PATIENT: BRENNAN AHN UNIT #: [id number]#: [id number] [address] [birth year] AGE: 82 SEX: M ATTEND: Arthur Fuentes MDADM AUTHOR: Arthur Fuentes MD * ALL edits or amendments must be made on the electronic/computer document * HPI HPIChief complaint:Generalized weaknessReferring physician:DR. BISHOP:82-year-old male with PMH of Alzheimer's dementia, CKD, HTN, atrial fibrillation, history of SVT/ablation who was transferred to [facility] ED after being foundto have multivessel coronary artery disease. Patient initially with was at homeand developed chest pains. [facility] which revealed multivessel CAD. Patient evaluated here by cardiothoracic surgery and underwent CABG x5 on 08/10. Patient with postoperative anemia and significant impairment in mobility. Pt is progressing slowly with therapy d/t weakness, self care deficit, decreased endurance and balance, and decreased functional mobility. Pt requiring acute inpt rehab for multidisciplinary team of nursing, therapy, and physicians. Pt is willing and able to participate in 3 hr/day inpt rehab to d/c home safely. Daughter states pt's prior level of function was independent. Currently patient has generalizedweakness. He lives by himself in a one-step up house. He denies any shortness of breath, nausea, vomiting, fever, chills. Denies chest pain. He is complaining of some constipation. He tells me that is in the process of sellinghis home. Preadmission screen was completed. Patient admitted to IRF.Changes since Pre Admit ScreenNoneImpairment group: cardiac disorders NOTE Document ONLY ONE Impairment GroupEtiologic diagnosis:CAD MULTIVESSEL A FIB PAROXYSMAL HistoryPreadmit diagnostic/labs: Date: 08/15/22 08/14/22 WBC: 10.6 9.4 HGB: 9.2 8.5 HCT: 27.6 26.1 Ca: 9.2 8.7 Na: 138 137 K+: 4.1 4.1 Glu: 109 107 M.32 2.49 BUN: 36 33 Creat: 1.9 2.0 Tot protein: 6.0 Alb: 3.40 PTT: PT: INR: PLT: 198 135 Cultures: 08/09/22 MRSA CANCELLEDImagin08/14/22 CXR IMPRESSION: Grossly stable exam. 08/13/22 MISCELLANEOUS U/S PROC IMPRESSION: Moderate bilateral pleural effusions, with basilar atelectasis. 08/13/22 CXR IMPRESSION: 1. Residual dense opacification of each lung base, primarily on the left side. 2. Slight improvement of left basilar opacity since the most recent exam. 3. Probable small left pleural effusion. 08/12/22 CXR IMPRESSION: 1. Minimal left apical pneumothorax. Moderate left pleural effusion subjectively enlarged. 2. Bibasilar atelectasis versus airspace disease. 3. Stable postoperative cardiomediastinal silhouette. 08/11/22 CXR IMPRESSION: Cardiomegaly with opacity at the left lung base. 08/10/22 CXR IMPRESSION: Status post median sternotomy and CABG with multiple support line and tube placement, as described above. 08/09/22 CAROTID DOPPLER IMPRESSION: No carotid arterial stenosis. 08/09/[address] IMPRESSION: 1. Ectatic, nonaneurysmal aortic root (37 mm) with lvhg-ax-evydtguz calcification. 2. Remaining thoracoabdominal aorta is normal in caliber. 3. Significant calcification along the ascending aorta to precludecoronary graft implantation given history. 4. Cardiomegaly with severe multivessel coronary atherosclerosis. 5. Old granulomatous disease and chronic active atypical infection with a tree-in-bud configuration. 6. Partially imaged bilateral renal cysts, incompletely characterized. This can be followed with routine non emergent ultrasound further characterization, if indicated. 08/09/22 CXR IMPRESSION: Left basilar opacities may represent atelectasis and/or consolidation. Past medical history:Reports: Atrial fibrillation, Coronary artery disease, Dementia, Kidney disease/stones. Additional surgical history:Crevial LaminectomyFamily history:Reports: Hypertension. Alcohol use: Denies EtOH useDrug use: Denies recreational drugsSmoking status for patients 13 years old or older: Former SmokerAllergies:Coded Allergies:Akmuhec-IMB-NvD Reductase Inhibitor (Severe, UNKNOWN 08/16/22) ROS ROSROS comments:14 point review of system was obtained. All systems reviewed are either negative or noncontributory or in the body of the history and physical Objective Physical ExamVS:Last Documented: Result Date Time Pulse Ox 94 08/17 1053 B/P 136/68 08/17 1053 B/P Mean 90.4 08/17 1053 O2 Delivery Room air 08/17 105 Temp 97.9 08/17 1053 Pulse 78 08/17 1053 Resp 16 08/17 1053 PATIENT WEIGHT: Weight (lb): 221Weight (oz): 9.03Weight (kg): 100.500 General appearance: alert, awake, oriented, no acute distressPsych: alert, normal affect, oriented x 3HEENT: anicteric, mucosal membranes moist, pupils reactive to light, sclera clearNeck: non-tender, supple, no JVDCardiovascular: irregular rhythm, S1/S2, cap refill wnl, pulses intactRespiratory: diminished breath sounds, on oxygen, aerating wellAbdomen: bowel sounds present, non-distended, soft, non-tenderSkin: dry, normal temperature, no rash, bruising R thigh, mild L thigh, BUE, R hand Sl tender/edema, sternum incision RSH site CDIMusculoskeletal - general: Musculoskeletal - general: OA changes, normal tone, no swelling, Moves all 4 exts AG, calves NT, no cords, Homans negNeuro/TEAROOM HOST/HOSTESS: alert, oriented X 3, CNII-XII intact, normal speech, no motor deficits, no sensory deficits ResultsFindings/Data:Laboratory Tests: 08/17 05 Chemistry Sodium (134 - 147 mEq/L) 138 Potassium (3.4 - 5.0 mEq/L) 4.0 Chloride (100 - 108 mEq/L) 105 Carbon Dioxide (21 - 33 mEq/l) 25 Anion Gap (0 - 20) 12 BUN (7 - 18 mg/dL) 29 H Creatinine (0.6 - 1.3 mg/dL) 1.9 H Glomerular Filtr Rate (70 - 80) 35.2 L Glucose (70 - 110 mg/dL) 107 Calcium (8.0 - 10.5 mg/dL) 9.4 Magnesium (1.80 - 2.40 mg/dL) 2.11 Total Bilirubin (0.0 - 1.0 mg/dL) 0.60 AST (15 - 37 IUnit/L) 20 ALT (30 - 65 IUnit/L) < 7 L Total Alk Phosphatase (20 - 125 IUnit/L) 69 Total Protein (6.4 - 8.2 g/dL) 5.8 L Albumin (3.4 - 5.0 g/dL) 3.30 L Hematology WBC (4.5 - 11.0 x10 3/uL) 8.7 RBC (4.00 - 5.60 x10 6/uL) 3.02 L Hgb (12.5 - 16.9 g/dL) 9.1 L Hct (37.5 - 50.7 %) 28.5 L MCV (81.0 - 99.0 fL) 94.4 MCH (27.0 - 33.0 pg) 30.1 MCHC (33.0 - 37.0 g/dL) 31.9 L RDW (11.5 - 14.5 %) 14.3 Plt Count (150 - 400 x10 3/uL) 293 MPV (7.0 - 9.0 fL) 9.7 H Neut % (Auto) (56.0 - 77.0 %) 64.3 Lymph % (Auto) (14.0 - 32.0 %) 14.4 [place] % (Auto) (4.8 - 9.0 %) 12.6 H Eos % (Auto) (0.3 - 3.7 %) 6.9 H Baso % (Auto) (0.0 - 2.0 %) 0.7 Neut # (Auto) (2.0 - 7.6 x10 3/uL) 5.59 Lymph # (Auto) (1.0 - 3.8 x10 3/uL) 1.25 [place] # (Auto) (0.1 - 0.8 x10 3/uL) 1.10 H Eos # (Auto) (0.0 - 0.2 x10 3/uL) 0.60 H Baso # (Auto) (0.0 - 0.2 x10 3/uL) 0.06 Abs Immat Gran (auto) (0.00 - 0.03 x10 3/uL) 0.10 H Add Manual Diff NO Immature Gran % (0.0 - 2.0 %) 1.1 Nucleated RBC % (0 - 0 %) 0.0 Nucleated RBCs # (Man) (0.0 - 0.1 x10 3/uL) 0.00 Microbiology:08/17 0500 NASAL: MRSA DNA Surveillance Screen - COLB08/16 1254 NASAL: MRSA DNA Surveillance Screen - ORD Diagnosis, Assessment Plan Diagnosis, Assessment PlanProblem List/A P: 1. CAD (coronary artery disease) 2. Afib 3. HTN (hypertension) 4. S/P CABG x 5 5. Impaired functional mobility, balance, gait, and endurance Free Text A P:Assessment:Multivessel CAD3/9: S/p CABG x5-Dr. Lind-fib s/p a LAAEndoscopic RGSV harvest08/16: Echo-EF 50-54%, small pericardial effusionSmall bilateral pleural effusions.Muscle weakness Unsteady gaitAlzheimer's dementiaPostoperative anemiaAKI on CKDHTNImpairment in self-care, ADLs and functional mobility Plan:-Comprehensive inpatient rehabilitation with physical, occupational and speech therapy 3 hours a day for 5 to 6 days per week-25/12 rehabilitation physician supervision-25/12 rehabilitation nursing care.-Case management for safe discharge planning.-Rehab MD to monitor comorbidities and functional progress.-Decubitus prevention-protective hydrating lotion-turn every 2 dndhq-rebzcyw-Hdata program-MiraLAX, senna,-Nutrition, monitor the patient's p.o. intake, check albumin three-point and prealbumin, dietary consult, protein supplements.-Strict fall and safety precaution-DVT cuqmttyvcdt-ZQMz-IH prophylaxis on Protonix-CAD on Plavix and aspirin, intolerant to statins-Pulmonary toilet frequent I-S, nebs, wean O2-Early mobilization-OOB to chair-Work on bed mobility, transfer training, ADLs, pre-gait and gait exercises as tolerable. -Increase endurance and strength-Pain management-Postop care as per CVS-Monitor telemetry-Cardiology on case-LADARIUS as per nephrology-Dementia/confusion-Higher level of nursing care and monitoring for safety-Appreciate consultants input-Continue current medication-Strict sternal precautions-Monitor sites of bruising and right hand pain-from previous phlebotomy sites-nosigns of infection-Labs reviewed-WBC normal, hemoglobin 9.1, platelets normal, creatinine 1.9, magnesium lkizpy-Fzxwtv-clnjspr B12 and ferrous sulfate-ELOS: 14 days-GOALS: Modified independent, learn sternal precautions-Advance therapies as tolerable PM RPlease see team note.Plan and goals discussed with the patient. I agree with the teams findingELOS: [ ]DH-qhju-PBJCS- TT 68 min>50% with discussing about IRF ADMIT, rehab plan of care, goals, expectations, needs, and medical issues, examination. MAR and EMR reviewed. AllQuestions answered.Review of comorbidities: CAD, A FIB, DEMENTIA/ON ELLIQUIS, HTN, CHRONIC KIDNEY DX, POST OP ANEMIA, muscle weakness, unsteady gait, POST OP PULMONARY DYSFUNTIONCompare to PAS:POST ADMISSION PHYSICIAN EVALUATION ASSESSMENT: 1. Comparison of findings with the preadmission assessment are compatible with the post admission physician evaluation.2. Review of the patient's prior and current medical and functional conditions have been extensively reviewed and documented in this H P, and discussed with the referring physicians, patient and family. At this time, there has been no change in the patient's current medical or functional conditions and plans to go ahead with rehab are to begin today.Estimated length of stay:14 daysOrders: Procedure Date/time Status NEB TREATMENT SUBSQ 08/17 1295 Active NEB TREATMENT SUBSQ 08/16 2941 Complete NEB TREATMENT SUBSQ 08/16 1532 Active Consultants: cardiology, cardiovascular surgery, hospitalist, nephrologyPlan discussed with: patient, consultants, nurse, interdisc care team Code Status/Resusc. DiscussionResuscitation discussion: Discussed with: patientCode status: full code Acute Rehab Attestation NOTE Attestation is for MD onlyRehab attestation:Based upon my evaluation, the patient's medical management and rehabilitation needs require an inpatient stay and close physician involvement. Patient can be expected to actively participate in, and benefit from, an intensive rehab therapy program whose intensity is not provided in lower levels of care. Significant barriers that can only be addressed in an acute inpatient rehab program, including, but not limited to:See H P. Complex acute rehab needs: Custom therapy tx plan, Mgt of complex Co-morb, Med adjustment/mgmt., New medical diagnosis, Postsurgery req mgt/care, Nutritional compromise, Hospitalist consult, Complex pain management, VTE Risk at 1152 RPT #:[id number] OF REPORTHPHistory and physical dntmemgcajc4063-65-97X92:15:00G.PDOC2 [id number] for patient jdcpFMNZWEWNYVQHTX2457-41-69Y48:52:32 [facility] 2022-08-16 18:47:00 [id number] 6yzgZvSf+RNdX8yrrg3P/w81QKwWHc5LtTk9E RJ7252-14-42H21:47:00 [facility]Re[facility] Progress NoteREPORT#:[id number] REPORT STATUS: SignedDATE:08/16/22 TIME: 1846 PATIENT: BRENNAN AHN UNIT #: [id number]#: [id number] [address] AGE: 82 SEX: M ATTEND: Salazar Hurd [facility] AUTHOR: Lavinia Jimenez BUILDING PRINCIPAL * ALL edits or amendments must be made on the electronic/computer document * SubjectiveChief complaint:Rehab qsymzn-ga-Mo seen around 8amOOB in chair Seen in CVICUDenies sob or painDoing well. NADDenies MORA/N/V/D/CP14 systems reviewed and neg. except that above. Objective GeneralVS:Vital Signs: Date Time Temp Pulse Resp B/P B/P Pulse O2 O2 Flow FiO2 Mean Ox Delivery Rate 08/16 1640 82 94 08/16 1639 97.7 85 22 162/77 105.3 91 08/16 1600 80 33 169/77 110 90 08/16 1546 98 Room air 08/16 1500 71 17 154/83 110 92 / 1400 72 29 143/63 91 98 08/16 1300 71 27 133/69 91 95 08/16 1201 75 33 140/58 83 88 08/16 1129 97 Room air 08/16 1114 70 22 133/61 88 98 / 1000 73 29 134/58 84 95 / 0901 79 27 132/61 88 94 08/16 0800 97.8 80 23 161/75 108 95 08/16 0754 100 Room air 21 08/16 0701 73 23 172/77 111 99 / 0601 73 33 154/69 99 98 08/16 0502 68 28 164/70 100 99 08/16 0405 95 Room air 08/16 0400 66 16 140/68 98 97 08/16 0300 66 19 149/76 102 99 08/16 0201 67 26 132/64 88 99 08/16 0101 65 14 105/55 77 96 08/16 0000 71 13 168/72 104 97 08/15 2300 75 23 152/74 106 96 08/15 2200 77 21 159/79 104 98 08/15 2140 88 26 169/76 109 96 08/15 2100 78 18 98 08/16 2015 83 94 08/16 2015 94 Room air 08/16 1999 97.8 08/16 1999 80 20 128/74 95 95 08/15 1901 80 33 119/91 98 91 PATIENT WEIGHT: Weight (lb): 221Weight (oz): 12.56Weight (kg): 100.600 Medications:Active Meds + DC'd Last 24 HrsFurosemide (LASIX) 40 MG Q24H PO (DCD) Furosemide (LASIX) 40 MG BID 9A 5P PO (DC) Aspirin (ASPIRIN) 81 MG DAILY PO (DCD) Budesonide (PULMICORT RESPULES) 0.5 MG RTBID INH (DCD) Formoterol Fumarate (PERFOROMIST) 20 MCG RTBID NEB (DCD) Metoprolol Tartrate (LOPRESSOR) 25 MG Q12HR PO (DCD) Ipratropium [place] (ATROVENT) 500 MCG RTQ6H INH (DCD) Ipratropium [place] (ATROVENT) 500 MCG Q2H PRN PRN INH (DCD) Cyanocobalamin (Vitamin B-12 500 mcg tab) 500 MCG DAILY PO (DCD) Ferrous Sulfate (FERROUS SULFATE) 325 MG DAILY PO (DCD) Sodium Chloride (SODIUM CHLORIDE 0.9%) 250 ML ONCE ONE IV (DCD) Bisacodyl (DULCOLAX) 10 MG ONCE PRN RECTAL (DCD) Dopamine HCl/Dextrose (DOPamine 400MG/D5W 250ML) 250 ML ASDIR IV (DCD) Tramadol HCl (ULTRAM) 50 MG Q4H PRN PRN PO (DC) Clopidogrel Bisulfate (Plavix) 75 MG DAILY PO (DCD) Polyethylene Glycol (MIRALAX) 17 GM DAILY PO (DCD) Amiodarone HCl (AMIODARONE HCL) 450 MG ASDIR IV (DCD) Dextrose/Water (D5%W NON-DEHP) 250 MLPantoprazole (PROTONIX) 40 MG DAILY@0600 PO (DCD) Docusate Sodium (COLACE) 100 MG BID PO (DCD) Sennosides (Senna Lax 8.6 MG TABLET) 17.2 MG BEDTIME PO (DCD) Amiodarone HCl (CORDARONE) 200 MG TID PO (DCD) Acetaminophen (TYLENOL) 650 MG Q4H PRN PRN PO (DCD) Acetaminophen (TYLENOL) 650 MG Q4H PRN PRN RECTAL (DCD) Calcium Chloride (CALCIUM CHLORIDE) 1 GM ASDIR PRN IV (DCD) Dextrose/Water (DEXTROSE 10% IN WATER) 125 ML ASDIR PRN IV (DCD) Dextrose/Water (DEXTROSE 10% IN WATER) 250 ML ASDIR PRN IV (DCD) Epinephrine (ADRENALIN CHLORIDE) 4 MG ASDIR IV (DCD) Dextrose/Water (DEXTROSE 5% WATER) 246 MLGlucagon (GLUCAGON) 1 MG ASDIR PRN IM (DCD) Insulin Human Regular (HumuLIN R) 100 UNIT ASDIR IV (DCD) Sodium Chloride (SODIUM CHLORIDE 0.9%) 99 MLMagnesium Sulfate (MAGNESIUM SULFATE 4GM/SWFI 100ML) 100 ML ASDIR PRN IV (DCD) Magnesium Sulfate (MAGNESIUM SULFATE 2GM/SWFI 50ML) 50 ML ASDIR PRN IV (DCD) Magnesium Sulfate/Dextrose (MAGNESIUM SULFATE 1GM/D5W 100ML) 100 ML ASDIR PRN IV (DCD) Nitroglycerin/Dextrose (NITROGLYCERIN 50,000MCG/D5W 250ML) 250 ML ASDIR IV (DCD) Norepinephrine Bitartrate (NOREPINEPHRINE 8 MG/NS 250 ML) 250 ML TITRATE IV (DCD) Ondansetron HCl (ZOFRAN) 4 MG Q6H PRN PRN IV (DCD) Potassium Chloride (KCL 20MEQ/SWFI 100ML) 100 ML ASDIR PRN IV (DCD) Sodium Bicarbonate (SODIUM BICARBONATE) 50 MEQ ASDIR PRN IV (DCD) Sodium Chloride (SODIUM CHLORIDE 0.9%) 1,000 ML .Q20H IV (DCD) Sodium Chloride (SODIUM CHLORIDE 0.9%) 250 ML Q24H IV (DCD) Melatonin (Melatonin) 6 MG BEDTIME PRN PRN PO (DCD) Hydralazine HCl (APRESOLINE) 10 MG Q6H PRN PRN IV (DCD) Physical ExamGeneral appearance: obese, alert, awake, orientedPsych: alert, normal affectHEENT: anicteric, sclera clearNeck: supple, no JVDCardiovascular: S1/S2, no murmurRespiratory: aerating well, clear bilaterallyAbdomen: bowel sounds present, non-distended, softSkin: intact, no rashMusculoskeletal - general: Musculoskeletal - general: normal muscle mass, normal tone, hips 3+, decereased shoulder AROM due to sternal precautionsNeuro/TEAROOM HOST/HOSTESS: alert, CNII-XII intact, normal speech, no sensory deficits ResultsFindings/Data:Laboratory Tests: 08/16 08/16 1435 0155 Chemistry Sodium (134 - 147 mEq/L) 139 Potassium (3.4 - 5.0 mEq/L) 4.8 Chloride (100 - 108 mEq/L) 107 Carbon Dioxide (21 - 33 mEq/l) 28 Anion Gap (0 - 20) 9 BUN (7 - 18 mg/dL) 37 H Creatinine (0.6 - 1.3 mg/dL) 2.0 H Glomerular Filtr Rate (70 - 80) 33.1 L Glucose (70 - 110 mg/dL) 107 Calcium (8.0 - 10.5 mg/dL) 9.6 Magnesium (1.80 - 2.40 mg/dL) 2.40 Hematology WBC (4.5 - 11.0 x10 3/uL) 8.9 RBC (4.00 - 5.60 x10 6/uL) 3.06 L Hgb (12.5 - 16.9 g/dL) 9.3 L Hct (37.5 - 50.7 %) 28.5 L MCV (81.0 - 99.0 fL) 93.1 MCH (27.0 - 33.0 pg) 30.4 MCHC (33.0 - 37.0 g/dL) 32.6 L RDW (11.5 - 14.5 %) 13.9 Plt Count (150 - 400 x10 3/uL) 231 MPV (7.0 - 9.0 fL) 9.3 H Neut % (Auto) (56.0 - 77.0 %) 65.2 Lymph % (Auto) (14.0 - 32.0 %) 17.2 [place] % (Auto) (4.8 - 9.0 %) 11.1 H Eos % (Auto) (0.3 - 3.7 %) 5.2 H Baso % (Auto) (0.0 - 2.0 %) 0.6 Neut # (Auto) (2.0 - 7.6 x10 3/uL) 5.80 Lymph # (Auto) (1.0 - 3.8 x10 3/uL) 1.53 [place] # (Auto) (0.1 - 0.8 x10 3/uL) 0.99 H Eos # (Auto) (0.0 - 0.2 x10 3/uL) 0.46 H Baso # (Auto) (0.0 - 0.2 x10 3/uL) 0.05 Abs Immat Gran (auto) (0.00 - 0.03 x10 3/uL) 0.06 H Add Manual Diff NO Immature Gran % (0.0 - 2.0 %) 0.7 Nucleated RBC % (0 - 0 %) 0.0 Nucleated RBCs # (Man) (0.0 - 0.1 x10 3/uL) 0.00 Serology SARS-CoV-2 Ag (Rapid) (Negative) Negative Diagnosis, Assessment PlanFree Text A P:Multivessel CADStatus post CABG y7Zutpya weakness Unsteady gaitImpaired ADLs, mobilityAlzheimer's dementiaPostoperative anemiaAKI on CKDHistory of A-fibHTNModerate bilateral pleural effusions Plan:Continue PT/OTOut of bed to chairWork on strength, bed mobility, transfers, gaitMonitor for left knee bucklingIncrease enduranceFall precautionsMonitor p.o. intake and nutritionStrict decubitus precautionsMonitor labs closelyMonitor telemetry. Atrial fibs intermittentAdvance therapies as tolerated.. Excellent candidate CLOF:100 feet x 2 min assist forward stooped posturePatient with slight confusion/dementia quired 1 rest break Criteria for acute rehabTelemetry monitoring-intermittent atrial fibs/may require frequent adjustments in medsDementia/confusion-Higher level of nursing care and monitoring for safetyAKI on CKD-closer medical monitoring-acute changes could lead to arrhythmias Patient is capable and motivated of the 3-hour therapy requirement for IPR Approved by insurance for IPR-Bed availabe today-can transfer if medically cleared Total time was 35 minutes > 50% with patient performing physical examination, discussing plan of care, goals, therapies, progress, medications, labs. All questions answeredConsultants: cardiology, cardiovascular surgeryRehab attestation:Face to face exam completed. Treatment plan discussed with patient. at 1849 RPT #:[id number] OF REPORTPRProgress [id number]:47:00G.[id number] for patient dpitAQONAHWOFTLHJR8387-77-58G83:49:50 [facility] 2022-08-16 17:15:00 [id number] CaOXhIn8yWIZSvAfDNlmGqmTmwZ4N3lIGq9P7 [id number]:15:[id number] [place] [address] PATIENT NAME: BRENNAN AHN ADMIT DATE: 08/09/22ACCOUNT NO: [id number] ROOM NO: 2202 AGE: 82 REPORT TYPE: eECHOCARDIOGRAM REPORT SEX: M ADMITTING PHYSICIAN:Salazar Hurd MD ATTENDING PHYSICIAN:Salazar Hurd MD *[place], [place] [address]Phone: Zcs: [phone] Transthoracic Echocardiogram Patient: Brennan AhnStudy Date: 08/16/2022 BP: 118 / 77 Location: FREDRN: [id number] : 1940 Age: 82 Height: 71 in / 180.3 cmAccession#: [id number] Gender: M Weight: 221.3 lb / 100.6 kgBMI/BSA: 30.9 kg/m 2 / 2.27 m 2 *Ordering Physician: * Pamela Burnette *Interpreting Physician: * Freddy Celis MD*Opal Miner: * Jane Byrd In dications: Rule out pericardial effusion. St udy data: Transthoracic echocardiogram. Procedure: Transthoracicechocardiography was performed. Image quality was adequate. Npzptykn0D, complete spectral Doppler, and color Doppler. Location: CVICU.Patient status: Inpatient. Patient room number: 2202. Study status:Routine. Fi ndings Left ventricle: The cavity size is normal. Wall thickness is normal.Systolic function is normal. The estimated ejection fraction is 50-54%.Left ventricular diastolic function parameters are indeterminate.Right ventricle: Estimated TAPSE is 1.0 cm. Systolic function ismoderately reduced. Systolic pressure is within the normal range.PATIENT NAME: BRENNAN AHN Left atrium: The atrium is dilated.Right atrium: The atrium is severely dilated.Aortic valve: There is mild regurgitation.Mitral valve: The leaflets are mildly calcified. There is mildregurgitation.Tricuspid valve: Estimated right ventricular systolic pressure is 30.6mmHg. There is mild regurgitation.Pericardium: A small pericardial effusion is identified posterior tothe heart. There is a left pleural effusion.Systemic veins:Inferior vena cava: The vessel is normal in size. The respirophasicdiameter changes are in the normal range (= 50%). Nm asurements Left ventricle Value 08/12/2022 Ref AMANDA, LAX 4.5 cm 4.3 4.2 - 5.8 ESD, LAX 2.9 cm 3.0 2.5 - 4.0 ESD/bsa, LAX 1.3 cm/m 2 1.3 1.3 - 2.1 FS, LAX 35 % 30 25 - 43 ESD/bsa 2.6 cm/m 2 2.5 ------ major ax, A4C AMANDA/bsa 2.6 cm/m 2 2.5 ------ minor ax, A4C AMANDA major 6.9 cm 7.0 ------ ax, A2C ESD major 5.1 cm ------ ax, A2C AMANDA/bsa 3.0 cm/m 2 3.0 ------ major ax, A2C ESD/bsa 2.2 cm/m 2 ------ major ax, A2C PW, ED 1.0 cm 0.9 0.6 - 1.0 IVS/PW, ED 0.85 1.11 ------ EF 64 % 57 52 - 72 LVOT Value 08/12/2022 Ref Diam, S 2.17 cm 2.04 ------ Area 3.7 cm 2 3.3 ------ Ventricular septum Value 08/12/2022 Ref IVS, ED 0.8 cm 1.0 0.6 - 1.0PATIENT NAME: BRENNAN AHN Right ventricle Value 08/12/2022 Ref AMANDA, LAX 2.8 cm ------ TAPSE, MM 1.0 cm 0.8 1.7 - 3.1 Left atrium Value 08/12/2022 Ref AP dim, ES 5.39 cm 4.75 3.00 - 4.00 Vol/bsa, ES, 46 ml/m 2 37 12 - 1-p A4C 37 Vol, ES, 2-p 97 ml 104 ------ Vol/bsa, ES, 43 ml/m 2 46 16 - 2-p 34 Vol/bsa, ES, 48 ml/m 2 39 16 - A/L 34 AP dim, ES 5.3 cm 3.0 - MM 4.0 LA/Ao root 1.9 ------ ratio, MM Right atrium Value 08/12/2022 Ref Area, ES 24 cm 2 32 10 - 18 SI dim, ES, 7.3 cm 3.4 - A4C 5.3 SI dim/bsa, 3.2 cm/m 2 1.8 - ES, A4C 3.0 Vol, ES, A/L 69 ml ------ Vol, ES, 1-p 65 ml ------ A4C Vol/bsa, ES, 28 ml/m 2 11 - 1-p A4C 39 Aortic valve Value 08/12/2022 Ref Leaflet sep, 1.88 cm ------ MM Tricuspid valve Value 08/12/2022 Ref TR peak v 2.53 m/sec 2.65 <=2.8 Peak RV-RA 26 mm Hg 28 ------ Danielle lopez Aortic root Value 08/12/2022 Ref Root diam, 2.81 cm ------ ED MM Co nclusions Summary: 1. Left ventricle: The cavity size is normal. Wall thickness is normal. Systolic function is normal. The estimated ejection fraction isPATIENT NAME: BRENNAN AHN 50-54%. Left ventricular diastolic function parameters are indeterminate.2. Right ventricle: Estimated TAPSE is 1.0 cm. Systolic function is moderately reduced.3. Left atrium: The atrium is dilated.4. Right atrium: The atrium is severely dilated.5. Tricuspid valve: Estimated right ventricular systolic pressure is 30.6 mmHg.6. Pericardium, extracardiac: A small pericardial effusion is identified posterior to the heart. There is a left pleural effusion. Prepared and electronically signed by Freddy Celis MD08/16/2022 17:14 at 1715 PATIENT NAME: BRENNAN AHN 7:15:00G.[id number] lable for patient mklrUBZYODOTPJOUGG4794-00-50F46:15:37 [facility] 2022-08-16 16:49:00 [id number] C9yZfIkkjn694Rnr/Vl3Yqa61SuwxApeiP/8K qd9684-10-93K67:49:00 [facility] ([facility])Discharge SummaryREPORT#:[id number] REPORT STATUS: SignedDATE:08/16/22 TIME: 164 PATIENT: BRENNAN AHN UNIT #: [id number]#: [id number] [address]DOB: [birth year] AGE: 82 SEX: M ATTEND: Salazar Hurd [facility] AUTHOR: Devin Fox DO * ALL edits or amendments must be made on the electronic/computer document * PCP PCPDischarge to: home General InformationProblem List/A P: 1. S/P CABG x 5 2. CAD (coronary artery disease) 3. Postoperative pulmonary dysfunction after cardiac surgery 4. HTN (hypertension) Date of admission:Observation Start Date: Date of admission: 08/09/22 Discharge date: 08/16/22Admission diagnosis:1. S/P CABG x 5 2. CAD (coronary artery disease) 3. Postoperative pulmonary dysfunction after cardiac surgery 4. HTN (hypertension)Discharge diagnosis:1. S/P CABG x 5 2. CAD (coronary artery disease) 3. Postoperative pulmonary dysfunction after cardiac surgery 4. HTN (hypertension)Hospital course:82-year-old male with past medical history of hypertension, atrial fibrillation,supraventricular tachycardia status post ablation who was admitted with reports of multivessel coronary artery disease found on a cardiac catheterization done at [facility]. Patient was transferred to [facility] for CABG. 1. Coronary artery disease-Status post CABG x5, ALAA, PVI-Continue metoprolol, Plavix, aspirin-Chest tubes in place and draining- 2. Atrial fibrillation-Continue IV amiodarone for rate control-Continue metoprolol-Monitor and review telemetry 3. Debility-.-PT/OT 4. ARF- cr 1.3-1.9-2.2-2.0- post op, post lasix therefore likely pre-renal- baseline CKD is suspected- nephro consulted 5. anemia- acute, post op expecteed- monitor and transfuse if hg <7 6. Delirium-Likely due to sundowning-Monitor closely-Patient is neurologically intact dispo: possible INPT REHAB- discussed with Pts son in detailstotal time spent 35mins Consultants: cardiology, cardiovascular surgery Med Rec PCPPCP:PCP: No Primary or Family Physician Med RecDischarge meds:Stop taking the following medications:METOPROLOL TARTRATE (LOPRESSOR) 50 MG TAB 50 MILLIGRAM ORAL TWICE DAILY. hydrALAZINE (APRESOLINE) 20 MG/ML AMPUL 20 MILLIGRAM INTRAVENOUS EVERY 4 HOURS NEEDED. as needed for SBP GREATER THAN 180 Continue taking these medications:DULoxetine DR (CYMBALTA) 60 MG CAP.DR 60 MILLIGRAM ORAL BEDTIME. Start taking the following new medications:CLOPIDOGREL (PLAVIX) 75 MG TAB 75 MILLIGRAM ORAL DAILY. Qty = 30 No Refills FERROUS SULFATE (FEOSOL) 325 MG (65 MG IRON) TAB 325 MILLIGRAM ORAL DAILY. Qty = 30 No Refills AMIODARONE (PACERONE) 200 MG TAB 200 MILLIGRAM ORAL THREE TIMES A DAY. Qty = 45 No Refills Instructions: 200 TID FOR DAY 1-7 200 BID FOR DAY 8-14 200 DAILY DAY 15-21 METOPROLOL TARTRATE (LOPRESSOR) 25 MG TAB 25 MILLIGRAM ORAL EVERY 12 HOURS. Qty = 60 No Refills ACETAMINOPHEN (TYLENOL) 325 MG TAB 650 MILLIGRAM ORAL EVERY 4 HOURS NEEDED. as needed for TEMP > 38.5 C Qty = 30 No Refills ASPIRIN EC (ECOTRIN) 81 MG TAB.EC 81 MILLIGRAM ORAL DAILY. Qty = 30 No Refills DOCUSATE SODIUM (COLACE) 100 MG CAP 100 MILLIGRAM ORAL TWICE DAILY. Qty = 30 No Refills MELATONIN (MELATONIN) 3 MG TAB 6 MILLIGRAM ORAL AT BEDTIME NEEDED. as needed for SLEEP Qty = 30 No Refills ObjectiveVS/I OLast Documented: Result Date Time Pulse Ox 94 08/16 1640 Pulse 82 08/16 1640 B/P 162/77 08/16 1639 B/P Mean 105.3 08/16 1639 Temp 97.7 08/16 1639 Resp 22 08/16 1639 FiO2 21 08/16 1129 O2 Delivery Room air 08/16 1129 O2 Flow Rate 2 08/14 0800 24 hour I O ending at 0700: 08/16 0700 08/15 1900 Intake Total 600.00 480 Output Total 775 1225 Balance -175.00 -745 Intake, IV 100.00 Intake, Oral 500 480 Number 1 Incontinent Voids Number Voids 4 Output, Urine 775 1225 Patient 100.6 kg 100.9 kg Weight Weight Standing scale Standing scale Measurement Method PATIENT WEIGHT: Weight (lb): 221Weight (oz): 12.56Weight (kg): 100.600 General appearance: alert, awake, orientedHead/Eyes: EOMINeck: non-tender, no JVDCardiovascular: regular rate rhythm, normal heart soundsRespiratory: clear to auscultation, no distressGI: soft, non-tenderExtremities: moves all, no edema-all extremitiesNeuro/TEAROOM HOST/HOSTESS: alert, oriented X 3, NL cerebellar function ResultsFindings/Data:Laboratory Tests: 08/16 08/16 1435 0155 Chemistry Sodium (134 - 147 mEq/L) 139 Potassium (3.4 - 5.0 mEq/L) 4.8 Chloride (100 - 108 mEq/L) 107 Carbon Dioxide (21 - 33 mEq/l) 28 Anion Gap (0 - 20) 9 BUN (7 - 18 mg/dL) 37 H Creatinine (0.6 - 1.3 mg/dL) 2.0 H Glomerular Filtr Rate (70 - 80) 33.1 L Glucose (70 - 110 mg/dL) 107 Calcium (8.0 - 10.5 mg/dL) 9.6 Magnesium (1.80 - 2.40 mg/dL) 2.40 Hematology WBC (4.5 - 11.0 x10 3/uL) 8.9 RBC (4.00 - 5.60 x10 6/uL) 3.06 L Hgb (12.5 - 16.9 g/dL) 9.3 L Hct (37.5 - 50.7 %) 28.5 L MCV (81.0 - 99.0 fL) 93.1 MCH (27.0 - 33.0 pg) 30.4 MCHC (33.0 - 37.0 g/dL) 32.6 L RDW (11.5 - 14.5 %) 13.9 Plt Count (150 - 400 x10 3/uL) 231 MPV (7.0 - 9.0 fL) 9.3 H Neut % (Auto) (56.0 - 77.0 %) 65.2 Lymph % (Auto) (14.0 - 32.0 %) 17.2 [place] % (Auto) (4.8 - 9.0 %) 11.1 H Eos % (Auto) (0.3 - 3.7 %) 5.2 H Baso % (Auto) (0.0 - 2.0 %) 0.6 Neut # (Auto) (2.0 - 7.6 x10 3/uL) 5.80 Lymph # (Auto) (1.0 - 3.8 x10 3/uL) 1.53 [place] # (Auto) (0.1 - 0.8 x10 3/uL) 0.99 H Eos # (Auto) (0.0 - 0.2 x10 3/uL) 0.46 H Baso # (Auto) (0.0 - 0.2 x10 3/uL) 0.05 Abs Immat Gran (auto) (0.00 - 0.03 x10 3/uL) 0.06 H Add Manual Diff NO Immature Gran % (0.0 - 2.0 %) 0.7 Nucleated RBC % (0 - 0 %) 0.0 Nucleated RBCs # (Man) (0.0 - 0.1 x10 3/uL) 0.00 Serology SARS-CoV-2 Ag (Rapid) (Negative) Negative Radiology data:Recent Impressions:RADIOLOGY - XR CHEST 1 V 08/16 0655 Report Impression - Status: SIGNED Entered: 08/16/2022 1035 IMPRESSION: Unchanged small left pleural effusion with left basilar airspace disease. Impression By: NayelyAMLuis Eduardo - Sha Gordon M.D.ULTRASOUND - DUP VEIN ANCA 08/16 1409 Report Impression - Status: SIGNED Entered: 08/16/2022 1502 IMPRESSION: No evidence of deep vein thrombosis. Impression By: Miriam Loredo M.D. Discharge Instructions PCPPCP:PCP: No Primary or Family Physician )( Discharge to: Inpatient Rehab Facility Discharge InstructionsAdditional Discharge Routines: PCP Follow-Up, Safety Sealer Follow-Up)( Diet: Cardiac)( Activity: As ToleratedPrescriptions: noneDischarge management: greater than 30 minsTime spent: Time spent on patient care (minutes): 45 Follow-up AppointmentsPCP follow up: PCP: No Primary or Family Physician PCP follow up timeframe: In 2-3 weeksAttending Physician: Attending Physician: Devin Fox DO Xhioltsktr provider 1: Provider 1: Salazar Hurd MD Specialty: Thoracic Surgery Consult follow up timeframe: In 3-4 weeks at 6745 RPT #:[id number] OF REPORTDSDischarge [id number]:49:00G.[id number] for patient fcmbJMDMALDGWCCVUK3497-78-77M09:58:24 [facility] 2022-08-16 11:36:00 [id number] s/Za/sx9eE8FzMYFGasTQCw8olG6xK+hNoB7q KI5326-66-03I19:36:00 [facility] ([facility])Nephrology Progress NoteREPORT#:[id number] REPORT STATUS: SignedDATE:08/16/22 TIME: 1136 PATIENT: BRENNAN AHN UNIT #: [id number]#: [id number] [address] [birth year] AGE: 82 SEX: M ATTEND: Salazar Hurd [facility] AUTHOR: Maura Terrazas MD * ALL edits or amendments must be made on the electronic/computer document * SubjectiveChief complaint:chest painHPI: 82-year-old male known to have hypertension, atrial fibrillation, supraventricular tachycardia with requiring ablation presenting with multivessel cardiovascular disease and he underwent CABG 07/13/2022. He was extubated postoperatively and his blood pressures were stable when he was seen. He endorsed having kidney issues in the past and seeing a specialist managers at [facility] but his kidney function had been stable and he denied any urinary complaints, chronic use of NSAIDs. He also denied any nausea, itching, cramping, change of taste, orthopnea. 08/16Patient looking stable hemodynamically , he is complaining of dizziness, lasix PO reduced to QD, plan to increase when feeling less dizzy. Objective GeneralVS/I O:Vital Signs: Date Time Temp Pulse Resp B/P B/P Pulse O2 O2 Flow FiO2 Mean Ox Delivery Rate 08/16 1129 97 Room air 08/16 1114 70 22 133/61 88 98 08/16 1000 73 29 134/58 84 95 08/16 0901 79 27 132/61 88 94 08/16 0800 36.6 80 23 161/75 108 95 08/16 0754 100 Room air 21 08/16 0701 73 23 172/77 111 99 08/16 0601 73 33 154/69 99 98 03/15 0502 68 28 164/70 100 99 /15 0405 95 Room air 08/16 0400 66 16 140/68 98 97 15 0300 66 19 149/76 102 99 /15 0201 67 26 132/64 88 99 /15 0101 65 14 105/55 77 96 0315 0000 71 13 168/72 104 97 14 2300 75 23 152/74 106 96 08/15 2200 77 21 159/79 104 98 14 2140 88 26 169/76 109 96 08/15 2100 78 18 98 08/16 2015 83 94 08/15 2016 94 Room air 08/16 1999 36.6 08/15 2000 80 20 128/74 95 95 08/15 1901 80 33 119/91 98 91 14 1801 80 36 117/58 83 89 08/15 1701 82 34 142/67 97 85 14 1600 36.6 14 1600 79 32 139/65 94 99 03/14 1500 68 141/67 96 98 14 1441 74 147/63 91 97 /14 1437 77 92/58 70 95 14 1400 65 130/69 93 97 03/14 1300 67 121/66 83 96 0314 1200 35.9 03/14 1200 73 135/65 93 93 24 hour I O ending at 0700: 08/16 0700 08/15 1900 Intake Total 600.00 480 Output Total 775 1225 Balance -175.00 -745 Intake, IV 100.00 Intake, Oral 500 480 Number 1 Incontinent Voids Number Voids 4 Output, Urine 775 1225 Patient 100.6 kg 100.9 kg Weight Weight Standing scale Standing scale Measurement Method PATIENT WEIGHT: Weight (lb): 221Weight (oz): 12.56Weight (kg): 100.600 Physical ExamGeneral appearance: alert, awake, orientedHead/eyes: atraumatic, clear corneaENT: moist mucous membranes, normal noseNeck: no JVD, no lymphadenopathyCardiovascular: normal heart sounds, regular rate and rhythmRespiratory: aerating well, clear to auscultationAbdomen: non-tender, softGenitourinary: no bladder distention, no flank painExtremities: no edema, no gangrene, no swelling Treatment Prophylaxis Treatment ProphylaxisDrain(s)/tube(s): Drain(s)/tube(s): chest, urinary catheter Diagnosis, Assessment PlanFree Text A P:82-year-old male known to have hypertension, atrial fibrillation, supraventricular tachycardia with requiring ablation presenting with multivesselcardiovascular disease and he underwent CABG 07/13/2022. He was extubated postoperatively and his blood pressures were stable when he was seen. He endorsed having kidney issues in the past and seeing a specialist managers at [facility] but his kidney function had been stable and he denied any urinary complaints, chronic use of NSAIDs. He also denied any nausea, itching, cramping, change of taste, orthopnea. Nephrology following for: 1. Acute kidney injury: Most likely prerenal as he recently had surgery. His blood pressures are stable but he appears dry therefore I would encourage oral intake and small boluses of IV fluid if needed. 2. Volume status: He appears hypovolemic even though his weight is elevated from admitting weight. Plan is to monitor input and output and continue to encourage oral intake and IV fluid if needed. 3. Electrolytes: His electrolytes appear to be in normal range plan is to monitor and replace as needed 4. Hypertension: His blood pressures are on the low side therefore I would treat only if his SBP goes above 160. 08/13 1. Acute kidney injury: Most likely prerenal as he recently had surgery. His blood pressures are stable but he appears dry therefore I would encourage oral intake and small boluses of IV fluid if needed.Renal function improving with improving blood presures. 2. Volume status: He appears hypovolemic even though his weight is elevated from admitting weight. Plan is to monitor input and output and continue to encourage oral intake and IV fluid if needed.Today his orthostatic blood pressures were positive so albumin one time given. 3. Electrolytes: His electrolytes appear to be in normal range plan is to monitor and replace as needed 4. Hypertension: His blood pressures are on the low side therefore I would treat only if his SBP goes above 160.Improved so PRN dose reccommended if SBP>160. 08/14 1. Acute kidney injury: Most likely prerenal as he recently had surgery. His blood pressures are stable but he appears dry therefore I would encourage oral intake and small boluses of IV fluid if needed.Renal function improving with improving blood presures. 2. Hypovolemia/orthostasis: Improving and now plan is to give low dose PO lasixonly if oxygenation worsens as he has risk of hypervolemia but still improving intravascular volume postoperatively. 3. Electrolytes: His electrolytes appear to be in normal range plan is to monitor and replace as needed 4. Hypertension: His blood pressures have been on the low side therefore I would treat only if his SBP goes above 160.Improved so PRN dose reccommended if SBP>160. 08/16 1. Acute kidney injury: Most likely prerenal as he recently had surgery. Resolving with better hemodynamics. 2. Hypervolemia: patient in A-fib and volume overload so would reccommend lasixPO and IV as tolerated. 3. Electrolytes: His electrolytes appear to be in normal range plan is to monitor and replace as needed 4. Hypertension: Worsening with volume overload so plan to start lasix as aboveConsultants: cardiology, cardiovascular surgery at 1145 RPT #:[id number] OF REPORTPRProgress [id number]:36:00G.[id number] -[id number] for patient zgfdIOVMOOYPNHWGZI5012-33-52G34:45:57 [facility] 2022-08-16 10:42:00 [id number] s169MCQGVzTIJvohOnPxjxRYy8YluzpDVjyWS [id number]:42:00 [facility] ([facility])Cardiology Progress NoteREPORT#:[id number] REPORT STATUS: SignedDATE:08/16/22 TIME: 1042 PATIENT: BRENNAN AHN UNIT #: [id number]#: [id number] [address] [birth year] AGE: 82 SEX: M ATTEND: Salazar Hurd [facility] AUTHOR: Catrina Shetty * ALL edits or amendments must be made on the electronic/computer document * SubjectivePatient reports:No: complaints. Objective GeneralVS/I O:24 hour I O ending at 0700: 08/16 0700 08/15 1900 Intake Total 600.00 480 Output Total 775 1225 Balance -175.00 -745 Intake, IV 100.00 Intake, Oral 500 480 Number 1 Incontinent Voids Number Voids 4 Output, Urine 775 1225 Patient 100.6 kg 100.9 kg Weight Weight Standing scale Standing scale Measurement Method Vital Signs: Date Time Temp Pulse Resp B/P B/P Pulse O2 O2 Flow FiO2 Mean Ox Delivery Rate 08/16 0901 79 27 132/61 88 94 08/16 0800 36.6 80 23 161/75 108 95 /15 0754 100 Room air 21 08/16 0701 73 23 172/77 111 99 / 0601 73 33 154/69 99 98 /15 0502 68 28 164/70 100 99 / 0405 95 Room air 08/16 0400 66 16 140/68 98 97 /15 0300 66 19 149/76 102 99 / 0201 67 26 132/64 88 99 /15 0101 65 14 105/55 77 96 08/16 0000 71 13 168/72 104 97 08/15 2300 75 23 152/74 106 96 /14 2200 77 21 159/79 104 98 14 2140 88 26 169/76 109 96 14 2100 78 18 98 08/15 2016 83 94 08/15 2016 94 Room air 08/15 2000 36.6 03 2000 80 20 128/74 95 95 03/14 1901 80 33 119/91 98 91 /14 1801 80 36 117/58 83 89 03/14 1701 82 34 142/67 97 85 03/14 1600 36.6 03/14 1600 79 32 139/65 94 99 03/14 1500 68 141/67 96 98 03/14 1441 74 147/63 91 97 /14 1437 77 92/58 70 95 03/14 1400 65 130/69 93 97 03/14 1300 67 121/66 83 96 03/14 1200 35.9 03/14 1200 73 135/65 93 93 03/14 1100 80 28 139/66 95 97 PATIENT WEIGHT: Weight (lb): 221Weight (oz): 12.56Weight (kg): 100.600 Medications:Active Meds + DC'd Last 24 HrsFurosemide (LASIX) 40 MG BID 9A 5P PO Furosemide (LASIX 20MG INJ) 20 MG ONCE ONE IV (DC) Aspirin (ASPIRIN) 81 MG DAILY PO Budesonide (PULMICORT RESPULES) 0.5 MG RTBID INH Formoterol Fumarate (PERFOROMIST) 20 MCG RTBID NEB Metoprolol Tartrate (LOPRESSOR) 25 MG Q12HR PO Ipratropium [place] (ATROVENT) 500 MCG RTQ6H INH Ipratropium [place] (ATROVENT) 500 MCG Q2H PRN PRN INH Cyanocobalamin (Vitamin B-12 500 mcg tab) 500 MCG DAILY PO Ferrous Sulfate (FERROUS SULFATE) 325 MG DAILY PO Sodium Chloride (SODIUM CHLORIDE 0.9%) 250 ML ONCE ONE IV Bisacodyl (DULCOLAX) 10 MG ONCE PRN RECTAL Dopamine HCl/Dextrose (DOPamine 400MG/D5W 250ML) 250 ML ASDIR IV Tramadol HCl (ULTRAM) 50 MG Q4H PRN PRN PO (DC) Clopidogrel Bisulfate (Plavix) 75 MG DAILY PO Polyethylene Glycol (MIRALAX) 17 GM DAILY PO Amiodarone HCl (AMIODARONE HCL) 450 MG ASDIR IV (CKD) Dextrose/Water (D5%W NON-DEHP) 250 MLPantoprazole (PROTONIX) 40 MG DAILY@0600 PO Docusate Sodium (COLACE) 100 MG BID PO Sennosides (Senna Lax 8.6 MG TABLET) 17.2 MG BEDTIME PO Amiodarone HCl (CORDARONE) 200 MG TID PO Acetaminophen (TYLENOL) 650 MG Q4H PRN PRN PO Acetaminophen (TYLENOL) 650 MG Q4H PRN PRN RECTAL Calcium Chloride (CALCIUM CHLORIDE) 1 GM ASDIR PRN IV Dextrose/Water (DEXTROSE 10% IN WATER) 125 ML ASDIR PRN IV (CKD) Dextrose/Water (DEXTROSE 10% IN WATER) 250 ML ASDIR PRN IV (CKD) Epinephrine (ADRENALIN CHLORIDE) 4 MG ASDIR IV Dextrose/Water (DEXTROSE 5% WATER) 246 MLGlucagon (GLUCAGON) 1 MG ASDIR PRN IM Insulin Human Regular (HumuLIN R) 100 UNIT ASDIR IV (CKD) Sodium Chloride (SODIUM CHLORIDE 0.9%) 99 MLMagnesium Sulfate (MAGNESIUM SULFATE 4GM/SWFI 100ML) 100 ML ASDIR PRN IV Magnesium Sulfate (MAGNESIUM SULFATE 2GM/SWFI 50ML) 50 ML ASDIR PRN IV Magnesium Sulfate/Dextrose (MAGNESIUM SULFATE 1GM/D5W 100ML) 100 ML ASDIR PRN IV Nitroglycerin/Dextrose (NITROGLYCERIN 50,000MCG/D5W 250ML) 250 ML ASDIR IV Norepinephrine Bitartrate (NOREPINEPHRINE 8 MG/NS 250 ML) 250 ML TITRATE IV Ondansetron HCl (ZOFRAN) 4 MG Q6H PRN PRN IV Potassium Chloride (KCL 20MEQ/SWFI 100ML) 100 ML ASDIR PRN IV Sodium Bicarbonate (SODIUM BICARBONATE) 50 MEQ ASDIR PRN IV Sodium Chloride (SODIUM CHLORIDE 0.9%) 1,000 ML .Q20H IV Sodium Chloride (SODIUM CHLORIDE 0.9%) 250 ML Q24H IV Melatonin (Melatonin) 6 MG BEDTIME PRN PRN PO Hydralazine HCl (APRESOLINE) 10 MG Q6H PRN PRN IV Physical ExamGeneral appearance: alert, awake, orientedHead/Eyes: atraumatic, PERRLNeck: non-tender, no JVDCardiovascular: CV assessment: irregularly irregularRespiratory: decreased breath sounds, on oxygen, no distressAbdomen: soft, non-tender, normal bowel sounds, no distentionGenitourinary: no flank pain, no urinary catheterLower extremity: LE assessment: edema, normal capillary refill, normal temperatureMusculoskeletal: normal inspectionNeuro/TEAROOM HOST/HOSTESS: alert, oriented X 3Skin: poor skin turgor, bruise/ecchymosis Right forearmPsychiatry: normal affect, normal mood ResultsFindings/Data:Laboratory Tests 08/16 154 Chemistry Sodium (134 - 147 mEq/L) 139 Potassium (3.4 - 5.0 mEq/L) 4.8 Chloride (100 - 108 mEq/L) 107 Carbon Dioxide (21 - 33 mEq/l) 28 Anion Gap (0 - 20) 9 BUN (7 - 18 mg/dL) 37 H Creatinine (0.6 - 1.3 mg/dL) 2.0 H Glomerular Filtr Rate (70 - 80) 33.1 L Glucose (70 - 110 mg/dL) 107 Calcium (8.0 - 10.5 mg/dL) 9.6 Magnesium (1.80 - 2.40 mg/dL) 2.40 Laboratory Tests 08/16 154 Hematology WBC (4.5 - 11.0 x10 3/uL) 8.9 RBC (4.00 - 5.60 x10 6/uL) 3.06 L Hgb (12.5 - 16.9 g/dL) 9.3 L Hct (37.5 - 50.7 %) 28.5 L MCV (81.0 - 99.0 fL) 93.1 MCH (27.0 - 33.0 pg) 30.4 MCHC (33.0 - 37.0 g/dL) 32.6 L RDW (11.5 - 14.5 %) 13.9 Plt Count (150 - 400 x10 3/uL) 231 MPV (7.0 - 9.0 fL) 9.3 H Neut % (Auto) (56.0 - 77.0 %) 65.2 Lymph % (Auto) (14.0 - 32.0 %) 17.2 [place] % (Auto) (4.8 - 9.0 %) 11.1 H Eos % (Auto) (0.3 - 3.7 %) 5.2 H Baso % (Auto) (0.0 - 2.0 %) 0.6 Neut # (Auto) (2.0 - 7.6 x10 3/uL) 5.80 Lymph # (Auto) (1.0 - 3.8 x10 3/uL) 1.53 [place] # (Auto) (0.1 - 0.8 x10 3/uL) 0.99 H Eos # (Auto) (0.0 - 0.2 x10 3/uL) 0.46 H Baso # (Auto) (0.0 - 0.2 x10 3/uL) 0.05 Abs Immat Gran (auto) (0.00 - 0.03 x10 3/uL) 0.06 H Add Manual Diff NO Immature Gran % (0.0 - 2.0 %) 0.7 Nucleated RBC % (0 - 0 %) 0.0 Nucleated RBCs # (Man) (0.0 - 0.1 x10 3/uL) 0.00 Laboratory Tests 08/16 0155 Chemistry Magnesium (1.80 - 2.40 mg/dL) 2.40 Radiology data:Recent Impressions:ULTRASOUND - US SOFT TISSUE TORSO 08/15 1314 Report Impression - Status: SIGNED Entered: 08/15/2022 1351 IMPRESSION: Small bilateral pleural effusions.Impression By: [email or web address] - Alfreda Joseph M.D.RADIOLOGY - XR CHEST 1 V 08/16 0655 Report Impression - Status: SIGNED Entered: 08/16/2022 1035 IMPRESSION: Unchanged small left pleural effusion with left basilar airspace disease. Impression By: [email or web address] - Sha Gordon M.D. Diagnosis, Assessment Plan Free Text DxA P NotesFree Text DxA P Notes:1. CAD s/p CABG x 5 (NGUYEN-LAD, SVG-Olga Lidia, SVG-OM, SVG-LPLA, SVG-PDA) continue asa, bb, plavixecho 08/12- LVEF 50-54%, left pleural effusionintolerant of statin, will consider nonstatin med such as Repatha or Nexletol outpatientpost-op per CTS 2. A-fib: Paroxysmal- rate controlleds/p PVI and ARISTEO amputationon amiodarone and BB 3. HTNBP on upward trendcontinue metoprolol 4. AKIeven fluid balanceper Nephrology continue supportive careDoing good post-opFor rehab at 1012 at 1807 RPT #:[id number] OF REPORTPRProgress [id number]:42:00G.[id number] for patient [id number]:13:13 [facility] 2022-08-16 09:06:00 [id number]:06:00 [facility] ([facility])Rehab Preadmission ScreenREPORT#: REPORT STATUS:DATE:08/16/22 TIME: 905 PATIENT: MARITZABRENNAN GARRETT UNIT #: ROOM: BED:: 42 AGE: 82 SEX: M ATTEND: Arthur Fuentes MDPROJECTED ADM AUTHOR: Arthur Fuentes MDREP SRV REP SRV TM: 0906* ALL edits or amendments must be made on the electronic/computer document * IRF Preadmission Screen Information From [facility] PAS documentation:The data set between the solid lines has been imported from [facility] documentation. PREADMISSION INFORMATION: DEMOGRAPHICS: Assessment date: 08/15/22Assessment time: 0605Patient has an Advanced Directive: NoContent of advance directive/living will/plan of care: Copy of advance directive on chart: Referring physician: DR. Bazzi care provider: NONE LISTEDConsulting physician(s): DR. FUENTES REHAB DR. HURD ATTENDINGDR. TOBIAS MEDICAL DR. TERRAZAS MEDICAL DR. GUARDADO MEDICAL MEDICAL DR. BROWN MEDICAL DR. NANCE ([place])Referral contact name: ANDREA Burnett contact number: [phone] setting: Acute hospitalRoom number: 2202 IMPAIRMENT GROUP: Impairment group: Cardiac disorders Etiologic diagnosis: CAD MULTIVESSEL A FIB PAROXYSMAL REVIEW OF MED CONDITIONS: Date of onset: 08/09/22Current surgery date and type: WEDGE BIOSPY OF HEART 08/10 CABG X 5 08/10/22Active comorbid conditions: CAD, A FIB, DEMENTIA/ON ELLIQUIS, HTN, CHRONIC KIDNEY DX, POST OP ANEMIA, muscle weakness, unsteady gait, POST OP PULMONARY DYSFUNTIONPast medical and surgical history: Past medical history: Reports: Atrial fibrillation, Coronary artery disease, Dementia, Kidney disease/stones. Additional surgical history: Crevial Laminectomy DEMENTIA SVT ABLATION 20 YEARS AGOHad major surgery within 100 days of admission: YesRisk for medical/clinical complications: Anemia, Arrhythmia, Aspiration, BP fluctuation, Blood sugar fluctuation, Cardiac instability, Constipation, DVT, Depression, Electrolyte imbalance, Hypoxia, Incisional dehiscence, Infection, Injury d/t falls, Nutritional compromise, Pain, Renal insuff/failure, Skin breakdown, Respiratory insufficiency, Urinary retentionAcute hospital stay summary: 82-year-old male with PMH of Alzheimer's dementia, CKD, HTN, atrial fibrillation, history of SVT/ablation who was transferred to [facility] ED after being found to have multivessel coronary artery disease. Patient initially with was at home and developed chest pains. He was brought [facility] and underwent left heart cath which revealed multivessel CAD. Patient evaluated here by cardiothoracic surgery and underwentCABG x5 on 08/10. Patient with postoperative anemia and significant impairment inmobility. Pt is progressing slowly with therapy d/t weakness, self care deficit,decreased endurance and balance, and decreased functional mobility. Pt requiringacute inpt rehab for multidisciplinary team of nursing, therapy, and physicians. Pt is willing and able to partici- chauhan in 3 hr/day inpt rehab to d/c home safely. Daughter states pt's prior level of function was independent. PREADMIT VITALS: Date/Time 08/14/22 1801 08/14/22 1700 Temp F Temp C 37.2 Pulse 90 104 RR 30 41 BP 158/69 157/82 SPO2% 96 93 Ht ft 5 Ht in 11 Wt lbs 225.000 BMI SUPPORTING DIAGNOSTICS/LABS/RADIOLOGY/CARDIOLOGY : Date: 08/15/22 08/14/22 WBC: 10.6 9.4 HGB: 9.2 8.5 HCT: 27.6 26.1 Ca: 9.2 8.7 Na: 138 137 K+: 4.1 4.1 Glu: 109 107 M.32 2.49 BUN: 36 33 Creat: 1.9 2.0 Tot protein: 6.0 Alb: 3.40 PTT: PT: INR: PLT: 198 135 Additional labs: Cultures: 08/09/22 MRSA CANCELLEDImagin08/14/22 CXR IMPRESSION: Grossly stable exam. 08/13/22 MISCELLANEOUS U/S PROC IMPRESSION: Moderate bilateral pleural effusions, with basilar atelectasis. 08/13/22 CXR IMPRESSION: 1. Residual dense opacification of each lung base, primarily on the left side. 2. Slight improvement of left basilar opacity since the most recent exam. 3. Probable small left pleural effusion. 08/12/22 CXR IMPRESSION: 1. Minimal left apical pneumothorax. Moderate left pleural effusion subjectively enlarged. 2. Bibasilar atelectasis versus airspace disease. 3. Stable postoperative cardiomediastinal silhouette. 08/11/22 CXR IMPRESSION: Cardiomegaly with opacity at the left lung base. 08/10/22 CXR IMPRESSION: Status post median sternotomy and CABG with multiple support line and tube placement, as described above. 08/09/22 CAROTID DOPPLER IMPRESSION: No carotid arterial stenosis. 08/09/[address] IMPRESSION: 1. Ectatic, nonaneurysmal aortic root (37 mm) with [id number]-[id number] calcification. 2. Remaining thoracoabdominal aorta is normal in caliber. 3. Significant calcification along the ascending aorta to precludecoronary graft implantation given history. 4. Cardiomegaly with severe multivessel coronary atherosclerosis. 5. Old granulomatous disease and chronic active atypical infection with a tree-in-bud configuration. 6. Partially imaged bilateral renal cysts, incompletely characterized. This can be followed with routine non emergent ultrasound further characterization, if indicated. 08/09/22 CXR IMPRESSION: Left basilar opacities may represent atelectasis and/or consolidation. Other supporting diagnostics: RESPIRATORY STATUS: Respiratory treatments: Nebulizer, Incentive spirometerO2 liters per minute: Respiratory status: ROOM AIR BIPAP/CPAP NEUROLOGIC STATUS: Neurologic status: Alert, Oriented to personPatient's mood and behavior: AppropriateHand dominance: Right BOWEL/BLADDER: Continent of bladder for developmental age: YesNumber of bladder accidents in last 48 hours: Catheter type: Insertion date: Bladder aids: Bladder comment: Continent of bowel for developmental age: YesNumber of bowel accidents in last 48 hours: Date of last BM: 08/15/22Colostomy: Ileostomy: Bowel aids: DULCOLAX SUPP COLACEBowel comment: SKIN: Skin alteration: Present/Exists SKIN ALTERATION 1: Type: Surgical woundLocation: Chest midlineStage: Description: Skin piercings: None - - SKIN ALTERATION - - Skin alteration/Procedure site: Present/Exists Skin alteration: - - Bruise Circumferential Arm right - - Instance list status: Active Skin alteration details: PURPLE, DUSKY Wound exudate amount/type: None Dressing/reinforcement type: LUZMARIA Document advanced wound measurements: No - - Procedural site Anterior Chest midline - - Instance list status: Active Skin alteration details: DRESSING CDI [place]/sutures: Skin adhesive Dressing/reinforcementtype: Fiber/silver Document advanced wound measurements: No - - Procedural site Anterior Leg right - - Instance list status: Active Wound surrounding tissue appearance: Edges approximated Wound exudate amount/type: None [place]/sutures: Skin adhesive Dressing/reinforcement type: LUZMARIA Document advanced wound measurements: No <End> Document skin test monitor: No - - VASCULAR - - COPIED FROM NURSE ASSESSMENT SKIN ALTERATION 2: Type: Location: Stage: Description: SKIN ALTERATION 3: Type: Location: Stage: Description: SKIN ALTERATION 4: Type: Location: Stage: Description: EATING/NUTRITIONAL: Nutritional intake: DYS 5=MINCED MOIST, EXTRA GRAVIES/SAUCESEating compensatory strategies: Medication administration: Topicals, Subcutaneous, Medications whole, IV REHAB NEEDS: Special rehabilitation needs: IV/PICC/CVC, Respiratory therapySpecial rehabilitation precautions: Sternal, Safety/fall, Cardiac, Aspiration, DietRehabilitation precaution detail: LEG INCISION STERNAL CARDIAC 02 DESATS HX OF FALLS EXTERNAL PACEMAKER EXTRA PERSONNEL W/C TO FOLLOW FUNCTIONAL ASSESSMENT: FUNC. TASK PRIOR LOF CURRENT LOF EXPECTED LOF Bathing Independent Substantial/max asst Independent U.B. Dressing Independent Substantial/max asst Independent L.B. Dressing Independent Total assistance Independent Bed/Ch Transf. Independent Partial/moderate asst Independent Toilet Transfer Independent Partial/moderate asst Independent Stairs Independent Total assistance Independent Locomotion Independent Partial/moderate asst Independent Locomotion prior device use: SP caneDescription of prior level of locomotion: HAS WALKER BUT DID NOT USELocomotion current device: RW/FWWLocomotion current distance traveled without a rest break: 100 FT X 2Description of current level of locomotion: FORWARD STOOPED POSTURE GALINA WIDE W/C TO FOLLOWDescription of expected level of locomotion: MOD I WITH RW OR CANE Language and Cognition: SLIGHT CONFUSION ALERT TO PERSONAdd'l functional comment: SUP/SIT MIN A SIT/STAND MOD A ROLLING MIN A SCOOTING MIN A Prior device use: SP canePrior device use additional information: HAS WALKER BUT DID NOT USE PRE-HOSPITAL: Pre-hospital services utilized: NoneOccupation/Profession: RetiredEducation history: Return to work/school plan: Marital status: WidowedHobbies/leisure activities: Prior living situation: HomeLiving with: AloneLiving with comment: ALONE ANTICIPATED DC PLAN/POST IRF: Primary support contact: SAMRelationship to patient: SONPhone number 1: [phone] number 2: Caregiver availability: Caregiver can provide: Patient/caregiver goals/preferences: Expected discharge destination: HomeExpected discharge physical layout: One storyNumber of external stairs: Number of internal stairs: Railing details: Grab bars location: Barriers to discharge: Endurance, CognitionOptions discussed with patient: YesOptions discussed with caregiver: YesPatient agrees with program requirements: Yes ACTIVITY TOLERANCE: Current treatment interventions: Occupational therapy, Physical therapy, Respiratory therapyPatient able to tolerate 3 hours of therapy a day: YesPatient able to tolerate 15 hours of therapy a week: Altered therapy schedule comment: ACUTE INPATIENT REHAB PLAN: Estimated length of stay in days: 14Anticipated services in acute inpatient rehab: Rehab nursing 25/12, infrastructure project manager,asphalt plant worker, Occupational therapy, Physical therapy, Dietitian, Respiratory therapySaint [facility] reviewed prior to admission decision: Acute History/Physical, Consult notes, Operative reports, Progress notes, Lab/diagnostics, Therapy notes, Vital signs, Other ancillary notes CRS ELECTRONIC SIGNATURE: SULAIMAN #1 electronic signature: DESMOND BLACKBURN credentials: RNDate: 08/15/22Time: 0752 CRS #2 electronic signature: SULAIMAN credentials: Date: Time: CRS #3 electronic signature: SULAIMAN credentials: Date: Time: Provider Pre-Admit SummaryAcute IP rehab admit: criteria metMD determinationBased upon my evaluation and review of the supporting assessment documentation and consultation with the preadmission associate professor of psychology, I have determined, prior to admitting this patient, that there is reasonable expectation that at the time of admission to the IRF, the patient's medical management and rehabilitation needs require an inpatient stay and close physician involvement. Patient can be expected to actively participate in, and benefit from, and intensive rehab therapy program whose intensity is not provided in lower levels of care. Significant barriers that can only be addressed in an acute inpatient rehab program, including, but not limited to:Date of onset: 08/09/22Current surgery date and type: WEDGE BIOSPY OF HEART 08/10 CABG X 5 08/10/22Active comorbid conditions: CAD, A FIB, DEMENTIA/ON ELLIQUIS, HTN, CHRONIC KIDNEY DX, POST OP ANEMIA, muscle weakness, unsteady gait, POST OP PULMONARY DYSFUNTIONPast medical and surgical history: Past medical history: Reports: Atrial fibrillation, Coronary artery disease, Dementia, Kidney disease/stones. Additional surgical history: Crevial Laminectomy DEMENTIA SVT ABLATION 20 YEARS AGOHad major surgery within 100 days of admission: YesRisk for medical/clinical complications: Anemia, Arrhythmia, Aspiration, BP fluctuation, Blood sugar fluctuation, Cardiac instability, Constipation, DVT, Depression, Electrolyte imbalance, Hypoxia, Incisional dehiscence, Infection, Injury d/t falls, Nutritional compromise, Pain, Renal insuff/failure, Skin breakdown, Respiratory insufficiency, Urinary retention Complex acute rehab needs: Custom therapy tx plan, Mgt of complex Co-morb, Med adjustment/mgmt., New medical diagnosis, Postsurgery req mgt/care, Nutritional compromise, Hospitalist consult, Complex pain management, VTE RiskAcute hospital stay: [facility] , IRF consult on Acute care at 0914 RPT #:[id number] OF REPORTCLClinical [id number]:06:00G.[id number] for patient [id number]:15:21 [facility] 2022-08-16 08:46:00 [id number]:46:00 [facility] HospitalCard[facility] ProgREPORT#:[id number] REPORT STATUS: SignedDATE:08/16/22 TIME: 08 PATIENT: BRENNAN AHN UNIT #: [id number]#: [id number] [address] AGE: 82 SEX: M ATTEND: Salazar Hurd [facility] AUTHOR: Pamela Burnette * ALL edits or amendments must be made on the electronic/computer document * GeneralPost-op: day 5Status post:08/10/22 CABG x 5 (NGUYEN-LAD, SVG-Olga Lidia, SVG-OM, SVG-LPLA, SVG-PDA) PVI ALAA EVH (RGSV) SubjectiveChief complaint:Follow-up CABG Review of SystemsConstitutional:Denies: fatigue, fever, generalized weakness, malaise. Skin:Denies: itching. Allergy/Immun:Denies: anaphylaxis, hives, itching. Eyes:Denies: itching, diplopia, eye pain. ENT:Denies: sore throat. Respiratory:Denies: JANG (dyspnea on exertion), pneumonia, SOB. Cardiovascular:Denies: chest pain, palpitations. GI:Denies: abdominal pain, GERD, nausea, vomiting. Musculoskeletal:Denies: extremity pain, extremity swelling, joint pain. Heme:Denies: bleeding, bruising. Neuro:Denies: dizziness, headache, lightheaded, syncope. All systems rev neg: except as marked Objective GeneralVS/I OLast Documented: Result Date Time Pulse Ox 98 08/16 0601 B/P 154/69 08/16 06 B/P Mean 99 08/16 0601 Pulse 73 08/16 0601 Resp 33 08/16 06 O2 Delivery Room air 08/16 0405 Temp 97.8 08/15 2000 FiO2 21 08/15 0339 O2 Flow Rate 2 08/14 0800 24 hour I O ending at 0700: 08/16 0700 08/15 1900 Intake Total 600.00 480 Output Total 775 1225 Balance -175.00 -745 Intake, IV 100.00 Intake, Oral 500 480 Number 1 Incontinent Voids Number Voids 4 Output, Urine 775 1225 Patient 100.6 kg 100.9 kg Weight Weight Standing scale Standing scale Measurement Method PATIENT WEIGHT: Weight (lb): 221Weight (oz): 12.56Weight (kg): 100.600 Physical ExamGeneral appearance: alert, awake, orientedWound/incision: Location:sternal Site condition: dressing clean dry, dressing intactHEENT: anicteric, mucosal membranes moistNeck: full range of motion, non-tenderCardiovascular: BP/pulses equal bilat., regular rate rhythmRespiratory: aerating well, symmetric expansion, no distressAbdomen: soft, non-tender, no distentionGenitourinary: no foleyExtremities: dry, moves allMusculoskeletal: full range of motionNeuro/TEAROOM HOST/HOSTESS: alert, oriented X 3Skin: dry, intactPsychiatry: anxious Treatment Prophylaxis Treatment ProphylaxisOxygen: nasal cannulaLines: arterial, CVC, peripheralDrain(s)/tube(s): Drain(s)/tube(s): chest, urinary catheter Diagnosis, Assessment PlanHospital course to date:82 year old with PMH of hypertension, atrial fibrillation, On Eliquis, Hx of SVT ablation 20 years ago transferred to [facility] with new findings of multi-vessel CAD. He reports he was woken from Sleep on Sunday AM with COmplaints of chest pains. EMS aas called and patient was taken to [facility]. He underwent LHC and found to have multi-vessel CAD by Dr Sanchez. Patient was transferred to [facility] for CABG. Patient lives independently. Daughter is at bedside. Patient reports last dose of Elliquis was Sunday AM. Echo was done at [facility] showing EF 55%, Mild MR, Mild AI, mild LVH. According to his records, he has a hx of Chronic kidney disease with baseline Creatine reportedly 1.5. He does report he has seen a renal MD in the past. Assessment/ Plan1) CAD, Mutli-vessel2) hypertension Continue BBLKR Add Norvasc 5 mg3) Atrial fibrillation. Last dose of Eliquis Sunday AM Obtain EKG4) BPH Continue flomax Workup for CABG underway. Patient was seen and examined by Dr Hurd. Coronary artery bypass surgery was discussed with the patient. The risk of the operation,including the STS score, cristian of blleding, infection, heart attack, stroke, Tracheostomy etc discussed with the patient. CT chest, carotid US, Vein mapping ordered. 08/11/22POD 1 s/p CABG x 5 (NGUYEN-LAD, SVG-Olga Lidia, SVG-OM, SVG-LPLA, SVG-PDA), PVI, ALAA, EVH (RGSV)Patient hemodynamically stable this morning, having episodes of vagal response and BP drops 20 points, SR and sinus arrythmnia noted on monitoring analyst, V epicardial wires on backup rate of 50Amiodarone bolus and dripKeep MS chest tube and monitor outputs, DC LP chest tube after ambulationMinimal oxygen requirements on 2l nasal cannula, encourage deep breathing and I-S useCXR and labs reviewedPain managementGlycemic control on insulin dripCardiac diet, nutritional supplementsBowel regimen, + gasStrict I Os, daily weights, albmuin x 1 given for decreased UOP- monitor hourlySCDs for DVT and PPI for GI prophylaxisPT/OTMonitor patient closely in CVICU, continue supportive carePatient seen with Dr. Hurd, plan of care discussed with ICU team. 08/12 Alert and oriented, up in the chairRemains on amiodarone drip for A-fibWean dopamine offChest x-ray reviewed. Breathing comfortably on room airCreatinine increased to 1.9, urine output 1.5 L last night after the boluses of LasixRepeat renal panel today show creatinine 2.2. Nephrology consulted, hold off onadditional LasixReplace electrolytesEncourage I-S and mobilizationGlycemic controlledKeep in CVICU for close monitoringPatient seen and plan reviewed with Dr Piper, Dr Kirkpatrick, [facility] and multidisciplinaryteam 08/13 Intermittently confused. Continue delirium precautionsMinimal O2 requirements, wean O2 as toleratedAllow for permissive hypertension as urine output improved with higher blood pressureMonitor renal functionEncourage p.o. intake, bowel regimenRemains in A-fib, heart rate fairly controlled. Amiodarone drip at 0.5Discontinue mediastinal chest tubeGlycemic controlKeep in CVICU for close monitoring.Patient seen and plan reviewed with Dr Kirkpatrick, MCKAYLA multidisciplinary teamFamily updated at the bedside 08/14 Patient is alert and oriented, delirium precautionsO2 requirements, encourage I-SPermissive hypertension for better renal perfusionCreatinine trending down, good urine output. Hold Lasix for nowEncourage p.o. intake, bowel regimenElectrolyte replacement as neededKeep in CVICU todayPlan for rehab. Awaiting insurance approvalPatient was seen and plan reviewed with MCKAYLA Rojo and multidisciplinary team 08/15 No major events overnight Resp status stable on RA. Encourage ISHD stable. Remains in A fib, HR controlled Continue PO amio, BB increased to 25 mg BID Renal function improved, good UOP Will DC pacing wires tomorrow PT/OTPlan for rehab. Awaiting insurance approvalPatient was seen and plan reviewed with MCKAYLA Rojo and multidisciplinary team 08/16Creatine 1.9--> 2.0- Followed by Renal. appreciate input. DE-LINED. [place] outAmbulating. UO: PO lasix today. Cardiac: Atrial fib- rate controlled. On po amio- Pacing wires removed- Echo ordered.DVT studies orderd. Respiratory: On room air. Small left pleural effsuion. GI: + BMGU: Voiding well. Renal followingDispo: Rehab when bed available. Consultants: cardiology, cardiovascular surgery at [address] [facility] #:[id number] OF REPORTPRProgress [id number]:[id number] for patient [id number]:53:05 HCACL 2022-08-15 15:43:00 [id number]/Or+F/x8p6D Hoy8F80iM5ZBqNWIbVn5aeqtxBzY81ZBkhhpw [id number]:43:00 [facility] HospitalInternal Medicine Prog. NoteREPORT#:[id number] REPORT STATUS: SignedDATE:08/15/22 TIME: 1543 PATIENT: BRENNAN AHN UNIT #: [id number]#: [id number] [address] [birth year] AGE: 82 SEX: M ATTEND: Salazar Hurd [facility] AUTHOR: Devin Fox DO * ALL edits or amendments must be made on the electronic/computer document * SubjectiveChief complaint:pt feels tired. Review of SystemsAll systems rev neg: except as marked Objective GeneralVS/I O:Vital Signs Date Temp Pulse Resp B/P B/P Mean Pulse Ox FiO2 08/14-08/15 96.6-98.9 65-119 16-41 92-187/58-88 70-110 91-100 21 Last Documented: Result Date Time Pulse Ox 97 08/15 1441 B/P 147/63 08/15 1441 B/P Mean 91 08/15 1441 Pulse 74 08/15 1441 Temp 96.6 08/15 1200 Resp 28 08/15 1100 FiO2 21 08/15 0339 O2 Delivery Room air 08/15 0339 O2 Flow Rate 2 08/14 0800 24 hour I O ending at 0700: 08/15 0700 08/14 1900 Intake Total 750.00 240 Output Total 700 325 Balance 50.00 -85 Intake, IV 250.00 Intake, Oral 500 240 Number 1 Bowel Movements Number 2 Incontinent Voids Number Voids 3 2 Output, Urine 700 325 PATIENT WEIGHT: Weight (lb): 222Weight (oz): 7.14Weight (kg): 100.900 Medications:Active Meds + DC'd Last 24 HrsFurosemide (LASIX) 40 MG BID 9A 5P PO Furosemide (LASIX 20MG INJ) 20 MG ONCE ONE IV (DC) Amiodarone HCl (NEXTERONE 150MG/D5W 100ML) 100 ML STAT STA IV (DC) Aspirin (ASPIRIN) 81 MG DAILY PO Budesonide (PULMICORT RESPULES) 0.5 MG RTBID INH Formoterol Fumarate (PERFOROMIST) 20 MCG RTBID NEB Metoprolol Tartrate (LOPRESSOR) 25 MG Q12HR PO Ipratropium [place] (ATROVENT) 500 MCG RTQ6H INH Ipratropium [place] (ATROVENT) 500 MCG Q2H PRN PRN INH Cyanocobalamin (Vitamin B-12 500 mcg tab) 500 MCG DAILY PO Ferrous Sulfate (FERROUS SULFATE) 325 MG DAILY PO Sodium Chloride (SODIUM CHLORIDE 0.9%) 250 ML ONCE ONE IV Bisacodyl (DULCOLAX) 10 MG ONCE PRN RECTAL Dopamine HCl/Dextrose (DOPamine 400MG/D5W 250ML) 250 ML ASDIR IV Tramadol HCl (ULTRAM) 50 MG Q4H PRN PRN PO Clopidogrel Bisulfate (Plavix) 75 MG DAILY PO Polyethylene Glycol (MIRALAX) 17 GM DAILY PO Amiodarone HCl (AMIODARONE HCL) 450 MG ASDIR IV (CKD) Dextrose/Water (D5%W NON-DEHP) 250 MLPantoprazole (PROTONIX) 40 MG DAILY@0600 PO Docusate Sodium (COLACE) 100 MG BID PO Mupirocin (BACTROBAN 2% 22 GM OINTMENT) 1 APPLIC BID NASAL (DC) Sennosides (Senna Lax 8.6 MG TABLET) 17.2 MG BEDTIME PO Amiodarone HCl (CORDARONE) 200 MG TID PO Acetaminophen (TYLENOL) 650 MG Q4H PRN PRN PO Acetaminophen (TYLENOL) 650 MG Q4H PRN PRN RECTAL Calcium Chloride (CALCIUM CHLORIDE) 1 GM ASDIR PRN IV Dextrose/Water (DEXTROSE 10% IN WATER) 125 ML ASDIR PRN IV (CKD) Dextrose/Water (DEXTROSE 10% IN WATER) 250 ML ASDIR PRN IV (CKD) Epinephrine (ADRENALIN CHLORIDE) 4 MG ASDIR IV Dextrose/Water (DEXTROSE 5% WATER) 246 MLGlucagon (GLUCAGON) 1 MG ASDIR PRN IM Insulin Human Regular (HumuLIN R) 100 UNIT ASDIR IV (CKD) Sodium Chloride (SODIUM CHLORIDE 0.9%) 99 MLMagnesium Sulfate (MAGNESIUM SULFATE 4GM/SWFI 100ML) 100 ML ASDIR PRN IV Magnesium Sulfate (MAGNESIUM SULFATE 2GM/SWFI 50ML) 50 ML ASDIR PRN IV Magnesium Sulfate/Dextrose (MAGNESIUM SULFATE 1GM/D5W 100ML) 100 ML ASDIR PRN IV Nitroglycerin/Dextrose (NITROGLYCERIN 50,000MCG/D5W 250ML) 250 ML ASDIR IV Norepinephrine Bitartrate (NOREPINEPHRINE 8 MG/NS 250 ML) 250 ML TITRATE IV Ondansetron HCl (ZOFRAN) 4 MG Q6H PRN PRN IV Potassium Chloride (KCL 20MEQ/SWFI 100ML) 100 ML ASDIR PRN IV Sodium Bicarbonate (SODIUM BICARBONATE) 50 MEQ ASDIR PRN IV Sodium Chloride (SODIUM CHLORIDE 0.9%) 1,000 ML .Q20H IV Sodium Chloride (SODIUM CHLORIDE 0.9%) 250 ML Q24H IV Melatonin (Melatonin) 6 MG BEDTIME PRN PRN PO Hydralazine HCl (APRESOLINE) 10 MG Q6H PRN PRN IV Physical ExamGeneral appearance: alert, awake, orientedHead/Eyes: EOMI, PERRLANeck: non-tender, no JVDCardiovascular: irregular rhythm, normal heart soundsRespiratory: aerating well, clear to auscultationAbdomen: non-tender, softExtremities: Extremities: edema, moves allNeuro/TEAROOM HOST/HOSTESS: alert, oriented x 3, CNII-XII intactSkin: ecchymosis (upper and lower extremities) ResultsFindings/Data:Laboratory Tests 08/15/22154:[Embedded Image Not Available]Laboratory Tests 08/15 154 Chemistry Sodium (134 - 147 mEq/L) 138 Potassium (3.4 - 5.0 mEq/L) 4.1 Chloride (100 - 108 mEq/L) 109 H Carbon Dioxide (21 - 33 mEq/l) 26 Anion Gap (0 - 20) 7 BUN (7 - 18 mg/dL) 36 H Creatinine (0.6 - 1.3 mg/dL) 1.9 H Glomerular Filtr Rate (70 - 80) 35.2 L Glucose (70 - 110 mg/dL) 109 Calcium (8.0 - 10.5 mg/dL) 9.2 Magnesium (1.80 - 2.40 mg/dL) 2.32 Total Bilirubin (0.0 - 1.0 mg/dL) 0.60 Direct Bilirubin (0.0 - 0.30 MG/DL) 0.20 Indirect Bilirubin (MG/DL) 0.40 AST (15 - 37 IUnit/L) 21 ALT (30 - 65 IUnit/L) < 7 L Total Alk Phosphatase (20 - 125 IUnit/L) 68 Total Protein (6.4 - 8.2 g/dL) 6.0 L Albumin (3.4 - 5.0 g/dL) 3.40 Laboratory Tests 08/15 0155 Hematology WBC (4.5 - 11.0 x10 3/uL) 10.6 RBC (4.00 - 5.60 x10 6/uL) 3.02 L Hgb (12.5 - 16.9 g/dL) 9.2 L Hct (37.5 - 50.7 %) 27.6 L MCV (81.0 - 99.0 fL) 91.4 MCH (27.0 - 33.0 pg) 30.5 MCHC (33.0 - 37.0 g/dL) 33.3 RDW (11.5 - 14.5 %) 13.7 Plt Count (150 - 400 x10 3/uL) 198 MPV (7.0 - 9.0 fL) 9.6 H Neut % (Auto) (56.0 - 77.0 %) 71.7 Lymph % (Auto) (14.0 - 32.0 %) 13.1 L [place] % (Auto) (4.8 - 9.0 %) 11.7 H Eos % (Auto) (0.3 - 3.7 %) 2.4 Baso % (Auto) (0.0 - 2.0 %) 0.5 Neut # (Auto) (2.0 - 7.6 x10 3/uL) 7.61 H Lymph # (Auto) (1.0 - 3.8 x10 3/uL) 1.39 [place] # (Auto) (0.1 - 0.8 x10 3/uL) 1.24 H Eos # (Auto) (0.0 - 0.2 x10 3/uL) 0.25 H Baso # (Auto) (0.0 - 0.2 x10 3/uL) 0.05 Abs Immat Gran (auto) (0.00 - 0.03 x10 3/uL) 0.06 H Add Manual Diff NO Immature Gran % (0.0 - 2.0 %) 0.6 Nucleated RBC % (0 - 0 %) 0.0 Nucleated RBCs # (Man) (0.0 - 0.1 x10 3/uL) 0.00 Radiology data:Recent Impressions:RADIOLOGY - XR CHEST 1 V 08/15 0500 Report Impression - Status: SIGNED Entered: 08/15/2022 0846 IMPRESSION: Cardiomegaly with minimal central venous congestion. Impression By: [email or web address] - Jaylyn Ledesma D.O.ULTRASOUND - US SOFT TISSUE TORSO 08/15 1314 Report Impression - Status: SIGNED Entered: 08/15/2022 1351 IMPRESSION: Small bilateral pleural effusions.Impression By: [email or web address] - Alfreda Joseph M.D. Treatment Prophylaxis Treatment ProphylaxisDrain(s)/tube(s): Drain(s)/tube(s): chest, urinary catheter Diagnosis, Assessment PlanHospital course to date:82-year-old male with past medical history of hypertension, atrial fibrillation,supraventricular tachycardia status post ablation who was admitted with reports of multivessel coronary artery disease found on a cardiac catheterization done at [facility]. Patient was transferred to [facility] for CABG. 1. Coronary artery disease-Status post CABG x5, ALAA, PVI-Continue metoprolol, Plavix, aspirin-Chest tubes in place and draining- 2. Atrial fibrillation-Continue IV amiodarone for rate control-Continue metoprolol-Monitor and review telemetry 3. Debility-.-PT/OT 4. ARF- cr 1.3-1.9-2.2-2.0- post op, post lasix therefore likely pre-renal- baseline CKD is suspected- nephro consulted 5. anemia- acute, post op expecteed- monitor and transfuse if hg <7 6. Delirium-Likely due to sundowning-Monitor closely-Patient is neurologically intact dispo: possible INPT REHAB- discussed with Pts son in detailstotal time spent 35minsProblem List/A P: 1. S/P CABG x 5 2. CAD (coronary artery disease) 3. Postoperative pulmonary dysfunction after cardiac surgery 4. HTN (hypertension) Consultants: cardiology, cardiovascular surgery at 2157 RPT #:[id number] OF REPORTPRProgress [id number]:43:00G.[id number] for patient [id number]:58:24 HCACL 2022-08-15 15:41:00 [id number]/NgWZ [id number]/K2qzrTU6Gxm+s [id number]:41:00 [facility] HospitalInternal Medicine Prog. NoteREPORT#:[id number] REPORT STATUS: SignedDATE:08/15/22 TIME: 1541 PATIENT: BRENNAN AHN UNIT #: [id number]#: [id number] [address] [birth year] AGE: 82 SEX: M ATTEND: Salazar Hurd [facility] AUTHOR: Devin Fox DO * ALL edits or amendments must be made on the electronic/computer document * SubjectiveChief complaint:pt feels tired.Comments:late entry progress note 08/14 Review of SystemsAll systems rev neg: except as marked Objective GeneralVS/I O:Vital Signs Date Temp Pulse Resp B/P B/P Mean Pulse Ox FiO2 08/14-08/15 96.6-98.9 65-119 16-41 92-187/58-88 70-110 91-100 21 Last Documented: Result Date Time Pulse Ox 97 08/15 1441 B/P 147/63 08/15 1441 B/P Mean 91 08/15 1441 Pulse 74 08/15 1441 Temp 96.6 08/15 1200 Resp 28 08/15 1100 FiO2 21 08/15 0339 O2 Delivery Room air 08/15 0339 O2 Flow Rate 2 08/14 0800 24 hour I O ending at 0700: 08/15 0700 08/14 1900 Intake Total 750.00 240 Output Total 700 325 Balance 50.00 -85 Intake, IV 250.00 Intake, Oral 500 240 Number 1 Bowel Movements Number 2 Incontinent Voids Number Voids 3 2 Output, Urine 700 325 PATIENT WEIGHT: Weight (lb): 222Weight (oz): 7.14Weight (kg): 100.900 Medications:Active Meds + DC'd Last 24 HrsFurosemide (LASIX) 40 MG BID 9A 5P PO Furosemide (LASIX 20MG INJ) 20 MG ONCE ONE IV (DC) Amiodarone HCl (NEXTERONE 150MG/D5W 100ML) 100 ML STAT STA IV (DC) Aspirin (ASPIRIN) 81 MG DAILY PO Budesonide (PULMICORT RESPULES) 0.5 MG RTBID INH Formoterol Fumarate (PERFOROMIST) 20 MCG RTBID NEB Metoprolol Tartrate (LOPRESSOR) 25 MG Q12HR PO Ipratropium [place] (ATROVENT) 500 MCG RTQ6H INH Ipratropium [place] (ATROVENT) 500 MCG Q2H PRN PRN INH Cyanocobalamin (Vitamin B-12 500 mcg tab) 500 MCG DAILY PO Ferrous Sulfate (FERROUS SULFATE) 325 MG DAILY PO Sodium Chloride (SODIUM CHLORIDE 0.9%) 250 ML ONCE ONE IV Bisacodyl (DULCOLAX) 10 MG ONCE PRN RECTAL Dopamine HCl/Dextrose (DOPamine 400MG/D5W 250ML) 250 ML ASDIR IV Tramadol HCl (ULTRAM) 50 MG Q4H PRN PRN PO Clopidogrel Bisulfate (Plavix) 75 MG DAILY PO Polyethylene Glycol (MIRALAX) 17 GM DAILY PO Amiodarone HCl (AMIODARONE HCL) 450 MG ASDIR IV (CKD) Dextrose/Water (D5%W NON-DEHP) 250 MLPantoprazole (PROTONIX) 40 MG DAILY@0600 PO Docusate Sodium (COLACE) 100 MG BID PO Mupirocin (BACTROBAN 2% 22 GM OINTMENT) 1 APPLIC BID NASAL (DC) Sennosides (Senna Lax 8.6 MG TABLET) 17.2 MG BEDTIME PO Amiodarone HCl (CORDARONE) 200 MG TID PO Acetaminophen (TYLENOL) 650 MG Q4H PRN PRN PO Acetaminophen (TYLENOL) 650 MG Q4H PRN PRN RECTAL Calcium Chloride (CALCIUM CHLORIDE) 1 GM ASDIR PRN IV Dextrose/Water (DEXTROSE 10% IN WATER) 125 ML ASDIR PRN IV (CKD) Dextrose/Water (DEXTROSE 10% IN WATER) 250 ML ASDIR PRN IV (CKD) Epinephrine (ADRENALIN CHLORIDE) 4 MG ASDIR IV Dextrose/Water (DEXTROSE 5% WATER) 246 MLGlucagon (GLUCAGON) 1 MG ASDIR PRN IM Insulin Human Regular (HumuLIN R) 100 UNIT ASDIR IV (CKD) Sodium Chloride (SODIUM CHLORIDE 0.9%) 99 MLMagnesium Sulfate (MAGNESIUM SULFATE 4GM/SWFI 100ML) 100 ML ASDIR PRN IV Magnesium Sulfate (MAGNESIUM SULFATE 2GM/SWFI 50ML) 50 ML ASDIR PRN IV Magnesium Sulfate/Dextrose (MAGNESIUM SULFATE 1GM/D5W 100ML) 100 ML ASDIR PRN IV Nitroglycerin/Dextrose (NITROGLYCERIN 50,000MCG/D5W 250ML) 250 ML ASDIR IV Norepinephrine Bitartrate (NOREPINEPHRINE 8 MG/NS 250 ML) 250 ML TITRATE IV Ondansetron HCl (ZOFRAN) 4 MG Q6H PRN PRN IV Potassium Chloride (KCL 20MEQ/SWFI 100ML) 100 ML ASDIR PRN IV Sodium Bicarbonate (SODIUM BICARBONATE) 50 MEQ ASDIR PRN IV Sodium Chloride (SODIUM CHLORIDE 0.9%) 1,000 ML .Q20H IV Sodium Chloride (SODIUM CHLORIDE 0.9%) 250 ML Q24H IV Melatonin (Melatonin) 6 MG BEDTIME PRN PRN PO Hydralazine HCl (APRESOLINE) 10 MG Q6H PRN PRN IV Physical ExamGeneral appearance: alert, awake, orientedHead/Eyes: EOMI, PERRLANeck: non-tender, no JVDCardiovascular: irregular rhythm, normal heart soundsRespiratory: aerating well, clear to auscultationAbdomen: non-tender, softExtremities: Extremities: edema, moves allNeuro/TEAROOM HOST/HOSTESS: alert, oriented x 3, CNII-XII intactSkin: ecchymosis (upper and lower extremities) ResultsFindings/Data:Laboratory Tests 08/15/22154:[Embedded Image Not Available]Laboratory Tests 08/15 154 Chemistry Sodium (134 - 147 mEq/L) 138 Potassium (3.4 - 5.0 mEq/L) 4.1 Chloride (100 - 108 mEq/L) 109 H Carbon Dioxide (21 - 33 mEq/l) 26 Anion Gap (0 - 20) 7 BUN (7 - 18 mg/dL) 36 H Creatinine (0.6 - 1.3 mg/dL) 1.9 H Glomerular Filtr Rate (70 - 80) 35.2 L Glucose (70 - 110 mg/dL) 109 Calcium (8.0 - 10.5 mg/dL) 9.2 Magnesium (1.80 - 2.40 mg/dL) 2.32 Total Bilirubin (0.0 - 1.0 mg/dL) 0.60 Direct Bilirubin (0.0 - 0.30 MG/DL) 0.20 Indirect Bilirubin (MG/DL) 0.40 AST (15 - 37 IUnit/L) 21 ALT (30 - 65 IUnit/L) < 7 L Total Alk Phosphatase (20 - 125 IUnit/L) 68 Total Protein (6.4 - 8.2 g/dL) 6.0 L Albumin (3.4 - 5.0 g/dL) 3.40 Laboratory Tests 08/15 0155 Hematology WBC (4.5 - 11.0 x10 3/uL) 10.6 RBC (4.00 - 5.60 x10 6/uL) 3.02 L Hgb (12.5 - 16.9 g/dL) 9.2 L Hct (37.5 - 50.7 %) 27.6 L MCV (81.0 - 99.0 fL) 91.4 MCH (27.0 - 33.0 pg) 30.5 MCHC (33.0 - 37.0 g/dL) 33.3 RDW (11.5 - 14.5 %) 13.7 Plt Count (150 - 400 x10 3/uL) 198 MPV (7.0 - 9.0 fL) 9.6 H Neut % (Auto) (56.0 - 77.0 %) 71.7 Lymph % (Auto) (14.0 - 32.0 %) 13.1 L [place] % (Auto) (4.8 - 9.0 %) 11.7 H Eos % (Auto) (0.3 - 3.7 %) 2.4 Baso % (Auto) (0.0 - 2.0 %) 0.5 Neut # (Auto) (2.0 - 7.6 x10 3/uL) 7.61 H Lymph # (Auto) (1.0 - 3.8 x10 3/uL) 1.39 [place] # (Auto) (0.1 - 0.8 x10 3/uL) 1.24 H Eos # (Auto) (0.0 - 0.2 x10 3/uL) 0.25 H Baso # (Auto) (0.0 - 0.2 x10 3/uL) 0.05 Abs Immat Gran (auto) (0.00 - 0.03 x10 3/uL) 0.06 H Add Manual Diff NO Immature Gran % (0.0 - 2.0 %) 0.6 Nucleated RBC % (0 - 0 %) 0.0 Nucleated RBCs # (Man) (0.0 - 0.1 x10 3/uL) 0.00 Radiology data:Recent Impressions:RADIOLOGY - XR CHEST 1 V 08/15 0500 Report Impression - Status: SIGNED Entered: 08/15/2022 0846 IMPRESSION: Cardiomegaly with minimal central venous congestion. Impression By: [email or web address] - Jaylyn Ledesma D.O.ULTRASOUND - US SOFT TISSUE TORSO 08/15 1314 Report Impression - Status: SIGNED Entered: 08/15/2022 1351 IMPRESSION: Small bilateral pleural effusions.Impression By: [email or web address] - Alfreda Joseph M.D. Treatment Prophylaxis Treatment ProphylaxisDrain(s)/tube(s): Drain(s)/tube(s): chest, urinary catheter Diagnosis, Assessment PlanHospital course to date:82-year-old male with past medical history of hypertension, atrial fibrillation,supraventricular tachycardia status post ablation who was admitted with reports of multivessel coronary artery disease found on a cardiac catheterization done at [facility]. Patient was transferred to [facility] for CABG. 1. Coronary artery disease-Status post CABG x5, ALAA, PVI-Continue metoprolol, Plavix, aspirin-Chest tubes in place and draining- 2. Atrial fibrillation-Continue IV amiodarone for rate control-Continue metoprolol-Monitor and review telemetry 3. Debility-.-PT/OT 4. ARF- cr 1.3-1.9-2.2-2.0- post op, post lasix therefore likely pre-renal- baseline CKD is suspected- nephro consulted 5. anemia- acute, post op expecteed- monitor and transfuse if hg <7 6. Delirium-Likely due to sundowning-Monitor closely-Patient is neurologically intact dispo: possible INPT REHAB- discussed with Pts daughter in detailstotal time spent 35minsProblem List/A P: 1. S/P CABG x 5 2. CAD (coronary artery disease) 3. Postoperative pulmonary dysfunction after cardiac surgery 4. HTN (hypertension) Consultants: cardiology, cardiovascular surgery at 2157 RPT #:[id number] OF REPORTPRProgress [id number]:41:00G.[id number] for patient rfgyVVCRLQJHUGXKBA9770-57-12V67:58:14 HCACL 2022-08-15 15:00:00 [id number] 2ipVlpvnAZPG19GLu4/QAlahxsE5arh/Q3/VD [id number]:00:00 [facility] ([facility])Critical Care Progress NoteREPORT#:[id number] REPORT STATUS: SignedDATE:08/15/22 TIME: 1500 PATIENT: BRENNAN AHN UNIT #: [id number]#: [id number] [address] [birth year] AGE: 82 SEX: M [facility] AUTHOR: Kel Agustin MD * ALL edits or amendments must be made on the electronic/computer document * SubjectiveChief complaint:CABGHPI:82-year-old male with history of hypertension, A-fib on Eliquis, SVT s/p ablation, CKD and possible Alzheimer disease, who presented with chest pain and found to have multivessel coronary artery disease on cardiac cath. Patient underwent CABG x5 today on 08/10/2022. Has LVH with preserved EF. Crystalloid 1 L,Cell Saver 425, urine output 350. Surgery went well and patient was transferred to CVICU postop in a stable surgical condition. He is currently intubated on 4 mics of Levophed, 2 mics of epinephrine and insulin drip. Comments:Interval history- Patient was given one dose of Amidoarone 150mg for A fib, in and out of A fib, but rate controlled Review of Systems Free Text ROS NotesFree Text ROS Notes:12 point Review of Systems was performed to the extent possible including discussion with the nursing staff and review of vital signs and all data. All systems negative other than pertinent negative/positive findings mentioned in the interval history section. Objective GeneralVS/I OLast Documented: Result Date Time Pulse Ox 97 08/15 1441 B/P 147/63 08/15 1441 B/P Mean 91 08/15 1441 Pulse 74 08/15 1441 Temp 35.9 08/15 1200 Resp 28 08/15 1100 FiO2 21 08/15 0339 O2 Delivery Room air 08/15 0339 O2 Flow Rate 2 08/14 0800 24 hour I O ending at 0700: 08/15 0700 08/14 1900 Intake Total 750.00 240 Output Total 700 325 Balance 50.00 -85 Intake, IV 250.00 Intake, Oral 500 240 Number 1 Bowel Movements Number 2 Incontinent Voids Number Voids 3 2 Output, Urine 700 325 PATIENT WEIGHT: Weight (lb): 222Weight (oz): 7.14Weight (kg): 100.900 Medications:Active Meds + DC'd Last 24 HrsFurosemide (LASIX) 40 MG BID 9A 5P PO Furosemide (LASIX 20MG INJ) 20 MG ONCE ONE IV (DC) Amiodarone HCl (NEXTERONE 150MG/D5W 100ML) 100 ML STAT STA IV (DC) Aspirin (ASPIRIN) 81 MG DAILY PO Budesonide (PULMICORT RESPULES) 0.5 MG RTBID INH Formoterol Fumarate (PERFOROMIST) 20 MCG RTBID NEB Metoprolol Tartrate (LOPRESSOR) 25 MG Q12HR PO Ipratropium [place] (ATROVENT) 500 MCG RTQ6H INH Ipratropium [place] (ATROVENT) 500 MCG Q2H PRN PRN INH Cyanocobalamin (Vitamin B-12 500 mcg tab) 500 MCG DAILY PO Ferrous Sulfate (FERROUS SULFATE) 325 MG DAILY PO Sodium Chloride (SODIUM CHLORIDE 0.9%) 250 ML ONCE ONE IV Bisacodyl (DULCOLAX) 10 MG ONCE PRN RECTAL Dopamine HCl/Dextrose (DOPamine 400MG/D5W 250ML) 250 ML ASDIR IV Tramadol HCl (ULTRAM) 50 MG Q4H PRN PRN PO Clopidogrel Bisulfate (Plavix) 75 MG DAILY PO Polyethylene Glycol (MIRALAX) 17 GM DAILY PO Amiodarone HCl (AMIODARONE HCL) 450 MG ASDIR IV (CKD) Dextrose/Water (D5%W NON-DEHP) 250 MLPantoprazole (PROTONIX) 40 MG DAILY@0600 PO Docusate Sodium (COLACE) 100 MG BID PO Mupirocin (BACTROBAN 2% 22 GM OINTMENT) 1 APPLIC BID NASAL (DC) Sennosides (Senna Lax 8.6 MG TABLET) 17.2 MG BEDTIME PO Amiodarone HCl (CORDARONE) 200 MG TID PO Acetaminophen (TYLENOL) 650 MG Q4H PRN PRN PO Acetaminophen (TYLENOL) 650 MG Q4H PRN PRN RECTAL Calcium Chloride (CALCIUM CHLORIDE) 1 GM ASDIR PRN IV Dextrose/Water (DEXTROSE 10% IN WATER) 125 ML ASDIR PRN IV (CKD) Dextrose/Water (DEXTROSE 10% IN WATER) 250 ML ASDIR PRN IV (CKD) Epinephrine (ADRENALIN CHLORIDE) 4 MG ASDIR IV Dextrose/Water (DEXTROSE 5% WATER) 246 MLGlucagon (GLUCAGON) 1 MG ASDIR PRN IM Insulin Human Regular (HumuLIN R) 100 UNIT ASDIR IV (CKD) Sodium Chloride (SODIUM CHLORIDE 0.9%) 99 MLMagnesium Sulfate (MAGNESIUM SULFATE 4GM/SWFI 100ML) 100 ML ASDIR PRN IV Magnesium Sulfate (MAGNESIUM SULFATE 2GM/SWFI 50ML) 50 ML ASDIR PRN IV Magnesium Sulfate/Dextrose (MAGNESIUM SULFATE 1GM/D5W 100ML) 100 ML ASDIR PRN IV Nitroglycerin/Dextrose (NITROGLYCERIN 50,000MCG/D5W 250ML) 250 ML ASDIR IV Norepinephrine Bitartrate (NOREPINEPHRINE 8 MG/NS 250 ML) 250 ML TITRATE IV Ondansetron HCl (ZOFRAN) 4 MG Q6H PRN PRN IV Potassium Chloride (KCL 20MEQ/SWFI 100ML) 100 ML ASDIR PRN IV Sodium Bicarbonate (SODIUM BICARBONATE) 50 MEQ ASDIR PRN IV Sodium Chloride (SODIUM CHLORIDE 0.9%) 1,000 ML .Q20H IV Sodium Chloride (SODIUM CHLORIDE 0.9%) 250 ML Q24H IV Melatonin (Melatonin) 6 MG BEDTIME PRN PRN PO Hydralazine HCl (APRESOLINE) 10 MG Q6H PRN PRN IV ResultsFindings/data:Laboratory Tests 08/15 154 Chemistry Sodium (134 - 147 mEq/L) 138 Potassium (3.4 - 5.0 mEq/L) 4.1 Chloride (100 - 108 mEq/L) 109 H Carbon Dioxide (21 - 33 mEq/l) 26 Anion Gap (0 - 20) 7 BUN (7 - 18 mg/dL) 36 H Creatinine (0.6 - 1.3 mg/dL) 1.9 H Glomerular Filtr Rate (70 - 80) 35.2 L Glucose (70 - 110 mg/dL) 109 Calcium (8.0 - 10.5 mg/dL) 9.2 Magnesium (1.80 - 2.40 mg/dL) 2.32 Total Bilirubin (0.0 - 1.0 mg/dL) 0.60 Direct Bilirubin (0.0 - 0.30 MG/DL) 0.20 Indirect Bilirubin (MG/DL) 0.40 AST (15 - 37 IUnit/L) 21 ALT (30 - 65 IUnit/L) < 7 L Total Alk Phosphatase (20 - 125 IUnit/L) 68 Total Protein (6.4 - 8.2 g/dL) 6.0 L Albumin (3.4 - 5.0 g/dL) 3.40 Laboratory Tests 08/15 154 Hematology WBC (4.5 - 11.0 x10 3/uL) 10.6 RBC (4.00 - 5.60 x10 6/uL) 3.02 L Hgb (12.5 - 16.9 g/dL) 9.2 L Hct (37.5 - 50.7 %) 27.6 L MCV (81.0 - 99.0 fL) 91.4 MCH (27.0 - 33.0 pg) 30.5 MCHC (33.0 - 37.0 g/dL) 33.3 RDW (11.5 - 14.5 %) 13.7 Plt Count (150 - 400 x10 3/uL) 198 MPV (7.0 - 9.0 fL) 9.6 H Neut % (Auto) (56.0 - 77.0 %) 71.7 Lymph % (Auto) (14.0 - 32.0 %) 13.1 L [place] % (Auto) (4.8 - 9.0 %) 11.7 H Eos % (Auto) (0.3 - 3.7 %) 2.4 Baso % (Auto) (0.0 - 2.0 %) 0.5 Neut # (Auto) (2.0 - 7.6 x10 3/uL) 7.61 H Lymph # (Auto) (1.0 - 3.8 x10 3/uL) 1.39 [place] # (Auto) (0.1 - 0.8 x10 3/uL) 1.24 H Eos # (Auto) (0.0 - 0.2 x10 3/uL) 0.25 H Baso # (Auto) (0.0 - 0.2 x10 3/uL) 0.05 Abs Immat Gran (auto) (0.00 - 0.03 x10 3/uL) 0.06 H Add Manual Diff NO Immature Gran % (0.0 - 2.0 %) 0.6 Nucleated RBC % (0 - 0 %) 0.0 Nucleated RBCs # (Man) (0.0 - 0.1 x10 3/uL) 0.00 Laboratory Tests 08/15/22 0155:[Embedded Image Not Available] Radiology dataRecent Impressions:RADIOLOGY - XR CHEST 1 V 08/15 0500 Report Impression - Status: SIGNED Entered: 08/15/2022 0846 IMPRESSION: Cardiomegaly with minimal central venous congestion. Impression By: [email or web address] - Jaylyn Ledesma D.O.ULTRASOUND - US SOFT TISSUE TORSO 08/15 1314 Report Impression - Status: SIGNED Entered: 08/15/2022 1351 IMPRESSION: Small bilateral pleural effusions.Impression By: [email or web address] - Alfreda Joseph M.D. Free Text Obj NotesFree Text Obj Notes:GEN: Patient is calm and in no distress.NECK: Supple, no JVD or thrush. No adenopathy.LUNGS: Clear lungs, no wheezes, no rales or crackles.CV: Irregularly irregular, no murmurs are heard. No S3 or rubs. GI: Abdomen is soft, not tender. Bowel sounds are present.EXT/Musc: No edema. No clubbing or cyanosis noted. Skin is warm.NEURO: Awake, alert and oriented x 3. No focal findings. Treatment Prophylaxis Treatment ProphylaxisDrain(s)/tube(s): Drain(s)/tube(s): chest, urinary catheter Diagnosis, Assessment PlanProblem list/A P: 1. CAD (coronary artery disease) 2. Postoperative pulmonary dysfunction after cardiac surgery 3. S/P CABG x 5 Free text A P:82-year-old male with history of hypertension, A-fib on Eliquis, SVT s/p ablation, CKD and possible Alzheimer disease, who presented with chest pain and found to have multivessel coronary artery disease on cardiac cath. Patient underwent CABG x5 today on 08/10/2022. Has LVH with preserved EF. Crystalloid 1 L,Cell Saver 425, urine output 350. Surgery went well and patient was transferred to CVICU postop in a stable surgical condition. He is currently intubated on 4 mics of Levophed, 2 mics of epinephrine and insulin drip. Neuro: Appears intact, keep off sedation, multimodal pain controlRespiratory: Sats well, CPAP as tolerated, plan for extubation, ABG and CXR reviewedCardiovascular: HD unstable on vasopressors, attempt to wean, keep CTs to suctionRenal: strict I/Os, monitor Cr and electrolytes, LA clear, judicious resuscitationGI: bedside swallow then oral diet after extubation, bowel regimen, monitor LFTsID: reactive leukocytosis, trend WBC, continue periop antibiotics per protocolHem: acute blood loss anemia, monitor Hgb and CTs output, transfuse as neededEndo: Blood glucose control with insulin gtt per protocolMisc: PTOT consult, DVT and GI prophylaxis with DAPT and PPI 3/10Continue supplemental oxygen and titrate FiO2 to keep saturation more than 90%.Inhaled bronchodilators as neededIS and LVEPJudicious pain controlAspirin and PlavixAmiodarone p.o.MetoprololAmiodarone bolus and drip1 albumin bolus1 dose of Lasix 20 mgDopamine drip at 3 micsMonitor kidney function and trend creatinineMonitor and replete electrolytesStrict I O'sCardiac diet with bowel regimenBlood glucose control, sliding scale insulinVTE prophylaxis, DOAC'sStress ulcer prophylaxis, ProtonixDiscussed with ICU team and cardiac surgeryCritical care time 41 minutes 3/11Continue supplemental oxygen and titrate FiO2 to keep saturation more than 90%.Inhaled bronchodilators as neededIS and LVEPContinue monitoring chest tube output, increased output after walkingJudicious pain controlEchocardiogram is done, results are pendingAspirin and PlavixAmiodarone p.o.MetoprololAmiodarone bolus and dripOff dopamineHolding off on Lasix for now per nephrologyMonitor kidney function and trend creatinineMonitor and replete electrolytesStrict I O'sCardiac diet with bowel regimenBlood glucose control, sliding scale insulinVTE prophylaxis, DOAC'sStress ulcer prophylaxis, ProtonixDiscussed with ICU team, nephrology and cardiac surgeryCritical care time 39 minutes 3/12Continue supplemental oxygen and titrate FiO2 to keep saturation more than 90%.Inhaled bronchodilators as neededIS and LVEPContinue monitoring chest tube output, increased output after walkingJudicious pain controlEchocardiogram is done, results are pendingAspirin and PlavixAmiodarone p.o.MetoprololAmiodarone bolus and dripOff dopamineHolding off on Lasix for now per nephrologyMonitor kidney function and trend creatinineMonitor and replete electrolytesStrict I O'sCardiac diet with bowel regimenBlood glucose control, sliding scale insulinVTE prophylaxis, DOAC'sStress ulcer prophylaxis, ProtonixDiscussed with ICU team, nephrology and cardiac surgeryCritical care time 39 minutes 08/14Neurologically intact Pain well controlledContinue nebsCreatnine improving, monitor the urine output , renal following A fib intermittently, rate controlled. Is on amiodarone and metoprolol.Patient is on room airPatient had a bowel movement.Sugars are well controlled.DVT prophylaxis with SCDs and DAPT.PPI.PT OT.Disposition will be home. 08/15Neurologically intact Pain well controlledContinue nebsCreatnine improving, monitor the urine output , renal following, patient to be diuresed with Lasix 40 p.o. twice daily as per renal. Continue to monitor the urine output.A fib intermittently, rate controlled. Is on amiodarone 200 3 times daily and metoprolol 25mg BIDPatient is on room airPatient had a bowel movement.Sugars are well controlled.DVT prophylaxis with SCDs and DAPT.PPI.PT OT.Disposition will be IPR, pending insurance authorization Total critical care time 34 minutes excluding procedures Consultants: cardiology, cardiovascular surgery at 1540 [facility] #:[id number] OF REPORTPRProgress [id number]:00:00G.[id number] for patient [id number]:40:46 [facility] 2022-08-15 10:42:00 [id number] [id number]:42:00 [facility]Ne[facility] Progress NoteREPORT#:[id number] REPORT STATUS: SignedDATE:08/15/22 TIME: 1042 PATIENT: BRENNAN AHN UNIT #: [id number]#: [id number] [address] [birth year] AGE: 82 SEX: M ATTEND: Salazar Hurd [facility] AUTHOR: Maura Terrazas MD * ALL edits or amendments must be made on the electronic/computer document * SubjectiveChief complaint:chest painHPI:82-year-old male known to have hypertension, atrial fibrillation, supraventricular tachycardia with requiring ablation presenting with multivesselcardiovascular disease and he underwent CABG 07/13/2022. He was extubated postoperatively and his blood pressures were stable when he was seen. He endorsed having kidney issues in the past and seeing a specialist managers at [place] but his kidney function had been stable and he denied any urinary complaints, chronic use of NSAIDs. He also denied any nausea, itching, cramping, change of taste, orthopnea. 08/15Patient looking stable hemodynamically , volume worsening and heart rate in A-fib. Objective GeneralVS/I O:Vital Signs: Date Time Temp Pulse Resp B/P B/P Pulse O2 O2 Flow FiO2 Mean Ox Delivery Rate 08/15 1000 74 22 153/69 99 98 08/15 0900 31 140/66 92 98 08/15 0801 81 16 108/63 77 100 08/15 0800 36.4 08/15 0700 79 27 139/65 93 97 08/15 0600 86 32 142/67 96 91 08/15 0500 73 26 140/64 92 98 08/15 0400 83 34 140/88 107 100 08/15 0339 96 Room air 21 08/15 0300 75 19 126/64 89 98 08/15 0200 87 24 139/64 92 98 08/15 0100 90 19 156/69 99 97 08/15 0011 98 Room air 21 08/15 0000 92 22 132/64 92 96 08/14 2301 119 30 149/62 89 97 08/14 2245 95 23 156/67 96 97 08/14 2230 97 26 154/65 93 96 08/14 2215 98 16 171/70 101 97 08/14 2203 90 21 173/74 107 97 08/14 2201 94 25 187/77 110 98 08/14 2105 95 Room air 21 08/14 2101 86 32 167/72 103 97 08/14 2000 37.2 08/14 2000 79 17 147/71 101 96 08/14 1901 81 18 141/66 95 95 08/14 1801 90 30 158/69 99 96 08/14 1700 104 41 157/82 109 93 08/14 1600 36.8 08/14 1600 77 25 146/66 95 97 08/14 1500 87 32 150/79 107 87 08/14 1436 83 25 124/59 83 98 08/14 1401 80 22 132/60 87 100 08/14 1300 77 19 139/63 90 100 08/14 1201 82 33 138/103 114 91 08/14 1200 36.9 08/14 1100 122/69 90 08/14 1100 67 31 98 24 hour I O ending at 0700: 08/15 0700 08/14 1900 Intake Total 750.00 240 Output Total 700 325 Balance 50.00 -85 Intake, IV 250.00 Intake, Oral 500 240 Number 1 Bowel Movements Number 2 Incontinent Voids Number Voids 3 2 Output, Urine 700 325 PATIENT WEIGHT: Weight (lb): 222Weight (oz): 7.14Weight (kg): 100.900 Physical ExamGeneral appearance: alert, awake, no acute distressHead/eyes: atraumatic, clear corneaENT: moist mucous membranes, normal noseNeck: no JVD, no lymphadenopathyCardiovascular: normal heart sounds, regular rate and rhythmRespiratory: aerating well, clear to auscultationAbdomen: non-tender, softGenitourinary: no bladder distention, no flank painExtremities: no edema, no gangrene, no swelling Treatment Prophylaxis Treatment ProphylaxisDrain(s)/tube(s): Drain(s)/tube(s): chest, urinary catheter Diagnosis, Assessment PlanFree Text A P:82-year-old male known to have hypertension, atrial fibrillation, supraventricular tachycardia with requiring ablation presenting with multivesselcardiovascular disease and he underwent CABG 07/13/2022. He was extubated postoperatively and his blood pressures were stable when he was seen. He endorsed having kidney issues in the past and seeing a specialist managers at [place] but his kidney function had been stable and he denied any urinary complaints, chronic use of NSAIDs. He also denied any nausea, itching, cramping, change of taste, orthopnea. Nephrology following for: 1. Acute kidney injury: Most likely prerenal as he recently had surgery. His blood pressures are stable but he appears dry therefore I would encourage oral intake and small boluses of IV fluid if needed. 2. Volume status: He appears hypovolemic even though his weight is elevated from admitting weight. Plan is to monitor input and output and continue to encourage oral intake and IV fluid if needed. 3. Electrolytes: His electrolytes appear to be in normal range plan is to monitor and replace as needed 4. Hypertension: His blood pressures are on the low side therefore I would treat only if his SBP goes above 160. 08/13 1. Acute kidney injury: Most likely prerenal as he recently had surgery. His blood pressures are stable but he appears dry therefore I would encourage oral intake and small boluses of IV fluid if needed.Renal function improving with improving blood presures. 2. Volume status: He appears hypovolemic even though his weight is elevated from admitting weight. Plan is to monitor input and output and continue to encourage oral intake and IV fluid if needed.Today his orthostatic blood pressures were positive so albumin one time given. 3. Electrolytes: His electrolytes appear to be in normal range plan is to monitor and replace as needed 4. Hypertension: His blood pressures are on the low side therefore I would treat only if his SBP goes above 160.Improved so PRN dose reccommended if SBP>160. 3/13 1. Acute kidney injury: Most likely prerenal as he recently had surgery. His blood pressures are stable but he appears dry therefore I would encourage oral intake and small boluses of IV fluid if needed.Renal function improving with improving blood presures. 2. Hypovolemia/orthostasis: Improving and now plan is to give low dose PO lasixonly if oxygenation worsens as he has risk of hypervolemia but still improving intravascular volume postoperatively. 3. Electrolytes: His electrolytes appear to be in normal range plan is to monitor and replace as needed 4. Hypertension: His blood pressures have been on the low side therefore I would treat only if his SBP goes above 160.Improved so PRN dose reccommended if SBP>160. 3/14 1. Acute kidney injury: Most likely prerenal as he recently had surgery. Resolving with better hemodynamics. 2. Hypovolemia/orthostasis: Improving and now patient in A-fib and volume overload so would reccommend starting lasix PO 40 Q12H 3. Electrolytes: His electrolytes appear to be in normal range plan is to monitor and replace as needed 4. Hypertension: Worsening with volume overload so plan to start lasix as aboveConsultants: cardiology, cardiovascular surgery at 1048 RPT #:[id number] OF REPORTPRProgress [id number]:42:00G.[id number] for patient [id number]:49:04 [facility] 2022-08-15 10:26:00 [id number]+rLEVymqR [id number] [id number]:26:00 [facility] ([facility])Cardiothoracic Surgery ProgREPORT#:[id number] REPORT STATUS: SignedDATE:08/15/22 TIME: 1026 PATIENT: BRENNAN AHN UNIT #: [id number]#: [id number] [address] AGE: 82 SEX: M ATTEND: Salazar Hurd MDADM AUTHOR: Shiloh Pimentel BUILDING PRINCIPAL * ALL edits or amendments must be made on the electronic/computer document * GeneralPost-op: day 5Status post:08/10/22CABG x 5 (NGUYEN-LAD, SVG-Olga Lidia, SVG-OM, SVG-LPLA, SVG-PDA)PVIALAAEVH (RGSV) SubjectiveChief complaint:Follow-up CABG Review of SystemsConstitutional:Denies: fatigue, fever, generalized weakness, malaise. Skin:Denies: itching. Allergy/Immun:Denies: anaphylaxis, hives, itching. Eyes:Denies: itching, diplopia, eye pain. ENT:Denies: sore throat. Respiratory:Denies: JANG (dyspnea on exertion), pneumonia, SOB. Cardiovascular:Denies: chest pain, palpitations. GI:Denies: abdominal pain, GERD, nausea, vomiting. Musculoskeletal:Denies: extremity pain, extremity swelling, joint pain. Heme:Denies: bleeding, bruising. Neuro:Denies: dizziness, headache, lightheaded, syncope. All systems rev neg: except as marked Objective GeneralVS/I OVital SignsDate Temp Pulse Resp B/P B/P Mean Pulse Ox WuF664/13-08/15 97.5-98.9 67-119 16-41 108-187/59-103 77-114 87-100 21 Last Documented: Result Date Time Pulse Ox 98 08/15 1000 B/P 153/69 08/15 1000 B/P Mean 99 08/15 1000 Pulse 74 08/15 1000 Resp 22 08/15 1000 Temp 97.5 08/15 0800 FiO2 21 08/15 0339 O2 Delivery Room air 08/15 0339 O2 Flow Rate 2 08/14 0800 24 hour I O ending at 0700: 08/15 0700 08/14 1900 Intake Total 750.00 240 Output Total 700 325 Balance 50.00 -85 Intake, IV 250.00 Intake, Oral 500 240 Number 1 Bowel Movements Number 2 Incontinent Voids Number Voids 3 2 Output, Urine 700 325 PATIENT WEIGHT: Weight (lb): 222Weight (oz): 7.14Weight (kg): 100.900 Physical ExamGeneral appearance: alert, oriented, mental status normal, no respiratory distressWound/incision: Location:sternal Site condition: dressing clean dry, dressing intactHEENT: anicteric, mucosal membranes moistNeck: full range of motion, non-tenderCardiovascular: BP/pulses equal bilat., regular rate rhythmRespiratory: aerating well, symmetric expansion, no distressAbdomen: soft, non-tender, no distentionGenitourinary: no foleyExtremities: dry, moves allMusculoskeletal: full range of motionNeuro/TEAROOM HOST/HOSTESS: alert, oriented X 3Skin: dry, intact Current MedicationsMedications:Active Meds + DC'd Last 24 HrsAmiodarone HCl (NEXTERONE 150MG/D5W 100ML) 100 ML STAT STA IV (DC) Aspirin (ASPIRIN) 81 MG DAILY PO Budesonide (PULMICORT RESPULES) 0.5 MG RTBID INH Formoterol Fumarate (PERFOROMIST) 20 MCG RTBID NEB Metoprolol Tartrate (LOPRESSOR) 25 MG Q12HR PO Ipratropium [place] (ATROVENT) 500 MCG RTQ6H INH Ipratropium [place] (ATROVENT) 500 MCG Q2H PRN PRN INH Cyanocobalamin (Vitamin B-12 500 mcg tab) 500 MCG DAILY PO Ferrous Sulfate (FERROUS SULFATE) 325 MG DAILY PO Sodium Chloride (SODIUM CHLORIDE 0.9%) 250 ML ONCE ONE IV Bisacodyl (DULCOLAX) 10 MG ONCE PRN RECTAL Dopamine HCl/Dextrose (DOPamine 400MG/D5W 250ML) 250 ML ASDIR IV Tramadol HCl (ULTRAM) 50 MG Q4H PRN PRN PO Clopidogrel Bisulfate (Plavix) 75 MG DAILY PO Polyethylene Glycol (MIRALAX) 17 GM DAILY PO Amiodarone HCl (AMIODARONE HCL) 450 MG ASDIR IV (CKD) Dextrose/Water (D5%W NON-DEHP) 250 MLPantoprazole (PROTONIX) 40 MG DAILY@0600 PO Docusate Sodium (COLACE) 100 MG BID PO Mupirocin (BACTROBAN 2% 22 GM OINTMENT) 1 APPLIC BID NASAL (DC) Sennosides (Senna Lax 8.6 MG TABLET) 17.2 MG BEDTIME PO Amiodarone HCl (CORDARONE) 200 MG TID PO Acetaminophen (TYLENOL) 650 MG Q4H PRN PRN PO Acetaminophen (TYLENOL) 650 MG Q4H PRN PRN RECTAL Calcium Chloride (CALCIUM CHLORIDE) 1 GM ASDIR PRN IV Dextrose/Water (DEXTROSE 10% IN WATER) 125 ML ASDIR PRN IV (CKD) Dextrose/Water (DEXTROSE 10% IN WATER) 250 ML ASDIR PRN IV (CKD) Epinephrine (ADRENALIN CHLORIDE) 4 MG ASDIR IV Dextrose/Water (DEXTROSE 5% WATER) 246 MLGlucagon (GLUCAGON) 1 MG ASDIR PRN IM Insulin Human Regular (HumuLIN R) 100 UNIT ASDIR IV (CKD) Sodium Chloride (SODIUM CHLORIDE 0.9%) 99 MLMagnesium Sulfate (MAGNESIUM SULFATE 4GM/SWFI 100ML) 100 ML ASDIR PRN IV Magnesium Sulfate (MAGNESIUM SULFATE 2GM/SWFI 50ML) 50 ML ASDIR PRN IV Magnesium Sulfate/Dextrose (MAGNESIUM SULFATE 1GM/D5W 100ML) 100 ML ASDIR PRN IV Nitroglycerin/Dextrose (NITROGLYCERIN 50,000MCG/D5W 250ML) 250 ML ASDIR IV Norepinephrine Bitartrate (NOREPINEPHRINE 8 MG/NS 250 ML) 250 ML TITRATE IV Ondansetron HCl (ZOFRAN) 4 MG Q6H PRN PRN IV Potassium Chloride (KCL 20MEQ/SWFI 100ML) 100 ML ASDIR PRN IV Sodium Bicarbonate (SODIUM BICARBONATE) 50 MEQ ASDIR PRN IV Sodium Chloride (SODIUM CHLORIDE 0.9%) 1,000 ML .Q20H IV Sodium Chloride (SODIUM CHLORIDE 0.9%) 250 ML Q24H IV Melatonin (Melatonin) 6 MG BEDTIME PRN PRN PO Hydralazine HCl (APRESOLINE) 10 MG Q6H PRN PRN IV ResultsFindings/Data:Laboratory Tests 08/15 0155 Chemistry Sodium (134 - 147 mEq/L) 138 Potassium (3.4 - 5.0 mEq/L) 4.1 Chloride (100 - 108 mEq/L) 109 H Carbon Dioxide (21 - 33 mEq/l) 26 Anion Gap (0 - 20) 7 BUN (7 - 18 mg/dL) 36 H Creatinine (0.6 - 1.3 mg/dL) 1.9 H Glomerular Filtr Rate (70 - 80) 35.2 L Glucose (70 - 110 mg/dL) 109 Calcium (8.0 - 10.5 mg/dL) 9.2 Magnesium (1.80 - 2.40 mg/dL) 2.32 Total Bilirubin (0.0 - 1.0 mg/dL) 0.60 Direct Bilirubin (0.0 - 0.30 MG/DL) 0.20 Indirect Bilirubin (MG/DL) 0.40 AST (15 - 37 IUnit/L) 21 ALT (30 - 65 IUnit/L) < 7 L Total Alk Phosphatase (20 - 125 IUnit/L) 68 Total Protein (6.4 - 8.2 g/dL) 6.0 L Albumin (3.4 - 5.0 g/dL) 3.40 Laboratory Tests 08/15 0155 Hematology WBC (4.5 - 11.0 x10 3/uL) 10.6 RBC (4.00 - 5.60 x10 6/uL) 3.02 L Hgb (12.5 - 16.9 g/dL) 9.2 L Hct (37.5 - 50.7 %) 27.6 L MCV (81.0 - 99.0 fL) 91.4 MCH (27.0 - 33.0 pg) 30.5 MCHC (33.0 - 37.0 g/dL) 33.3 RDW (11.5 - 14.5 %) 13.7 Plt Count (150 - 400 x10 3/uL) 198 MPV (7.0 - 9.0 fL) 9.6 H Neut % (Auto) (56.0 - 77.0 %) 71.7 Lymph % (Auto) (14.0 - 32.0 %) 13.1 L [place] % (Auto) (4.8 - 9.0 %) 11.7 H Eos % (Auto) (0.3 - 3.7 %) 2.4 Baso % (Auto) (0.0 - 2.0 %) 0.5 Neut # (Auto) (2.0 - 7.6 x10 3/uL) 7.61 H Lymph # (Auto) (1.0 - 3.8 x10 3/uL) 1.39 [place] # (Auto) (0.1 - 0.8 x10 3/uL) 1.24 H Eos # (Auto) (0.0 - 0.2 x10 3/uL) 0.25 H Baso # (Auto) (0.0 - 0.2 x10 3/uL) 0.05 Abs Immat Gran (auto) (0.00 - 0.03 x10 3/uL) 0.06 H Add Manual Diff NO Immature Gran % (0.0 - 2.0 %) 0.6 Nucleated RBC % (0 - 0 %) 0.0 Nucleated RBCs # (Man) (0.0 - 0.1 x10 3/uL) 0.00 Radiology data:Recent Impressions:RADIOLOGY - XR CHEST 1 V 08/15 0500 Report Impression - Status: SIGNED Entered: 08/15/2022 0846 IMPRESSION: Cardiomegaly with minimal central venous congestion. Impression By: [email or web address] - Jaylyn Ledesma D.O. Diagnosis, Assessment PlanHospital course to date:82 year old with PMH of hypertension, atrial fibrillation, On Eliquis, Hx of SVT ablation 20 years ago transferred to [facility] with new findings of multi-vessel CAD. He reports he was woken from Sleep on Sunday AM with COmplaints of chest pains. EMS aas called and patient was taken to [facility]. He underwent LHC and found to have multi-vessel CAD by Dr Sanchez. Patient was transferred to [facility] for CABG. Patient lives independently. Daughter is at bedside. Patient reports last dose of Elliquis was Sunday AM. Echo was done at [facility] showing EF 55%, Mild MR, Mild AI, mild LVH. According to his records, he has a hx of Chronic kidney disease with baseline Creatine reportedly 1.5. He does report he has seen a renal MD in the past. Assessment/ Plan1) CAD, Mutli-vessel2) hypertension Continue BBLKR Add Norvasc 5 mg3) Atrial fibrillation. Last dose of Eliquis Sunday AM Obtain EKG4) BPH Continue flomax Workup for CABG underway. Patient was seen and examined by Dr Hurd. Coronary artery bypass surgery was discussed with the patient. The risk of the operation,including the STS score, cristian of blleding, infection, heart attack, stroke, Tracheostomy etc discussed with the patient. CT chest, carotid US, Vein mapping ordered. 08/11/22POD 1 s/p CABG x 5 (NGUYEN-LAD, SVG-Olga Lidia, SVG-OM, SVG-LPLA, SVG-PDA), PVI, ALAA, EVH (RGSV)Patient hemodynamically stable this morning, having episodes of vagal response and BP drops 20 points, SR and sinus arrythmnia noted on monitoring analyst, V epicardial wires on backup rate of 50Amiodarone bolus and dripKeep MS chest tube and monitor outputs, DC LP chest tube after ambulationMinimal oxygen requirements on 2l nasal cannula, encourage deep breathing and I-S useCXR and labs reviewedPain managementGlycemic control on insulin dripCardiac diet, nutritional supplementsBowel regimen, + gasStrict I Os, daily weights, albmuin x 1 given for decreased UOP- monitor hourlySCDs for DVT and PPI for GI prophylaxisPT/OTMonitor patient closely in CVICU, continue supportive carePatient seen with Dr. Hurd, plan of care discussed with ICU team. 08/12 Alert and oriented, up in the chairRemains on amiodarone drip for A-fibWean dopamine offChest x-ray reviewed. Breathing comfortably on room airCreatinine increased to 1.9, urine output 1.5 L last night after the boluses of LasixRepeat renal panel today show creatinine 2.2. Nephrology consulted, hold off onadditional LasixReplace electrolytesEncourage I-S and mobilizationGlycemic controlledKeep in CVICU for close monitoringPatient seen and plan reviewed with Dr Piper, Dr Kirkpatrick, [facility] and multidisciplinaryteam 08/13 Intermittently confused. Continue delirium precautionsMinimal O2 requirements, wean O2 as toleratedAllow for permissive hypertension as urine output improved with higher blood pressureMonitor renal functionEncourage p.o. intake, bowel regimenRemains in A-fib, heart rate fairly controlled. Amiodarone drip at 0.5Discontinue mediastinal chest tubeGlycemic controlKeep in CVICU for close monitoring.Patient seen and plan reviewed with MCKAYLA Armenta multidisciplinary teamFamily updated at the bedside 08/14 Patient is alert and oriented, delirium precautionsO2 requirements, encourage I-SPermissive hypertension for better renal perfusionCreatinine trending down, good urine output. Hold Lasix for nowEncourage p.o. intake, bowel regimenElectrolyte replacement as neededKeep in CVICU todayPlan for rehab. Awaiting insurance approvalPatient was seen and plan reviewed with MCKAYLA Rojo and multidisciplinary team 08/15 No major events overnight Resp status stable on RA. Encourage ISHD stable. Remains in A fib, HR controlled Continue PO amio, BB increased to 25 mg BID Renal function improved, good UOP Will DC pacing wires tomorrow PT/OTPlan for rehab. Awaiting insurance approvalPatient was seen and plan reviewed with MCKAYLA Rojo and multidisciplinary team Consultants: cardiology, cardiovascular surgery at 1036 at 1027 RPT #:[id number] OF REPORTPRProgress [id number]:26:00G.[id number] for patient pvtdYXNTKSGXRDJPPO9706-60-16A88:37:03 [facility] 2022-08-15 09:42:00 [id number] j4DFJN+uoPRVSVY4QZKxf6nl42Y4wvWHA8j8s H/1755-71-51R18:42:00 [facility] ([facility])Cardiology Progress NoteREPORT#:[id number] REPORT STATUS: SignedDATE:08/15/22 TIME: 941 PATIENT: BRENNAN AHN UNIT #: [id number]#: [id number] [address] AGE: 82 SEX: M ATTEND: Salazar Hurd MDADM AUTHOR: Catrina Shetty AGACNP * ALL edits or amendments must be made on the electronic/computer document * SubjectivePatient reports:No: complaints. Objective GeneralVS/I O:24 hour I O ending at 0700: 08/15 0700 08/14 1900 Intake Total 750.00 240 Output Total 700 325 Balance 50.00 -85 Intake, IV 250.00 Intake, Oral 500 240 Number 1 Bowel Movements Number 2 Incontinent Voids Number Voids 3 2 Output, Urine 700 325 Vital Signs: Date Time Temp Pulse Resp B/P B/P Pulse O2 O2 Flow FiO2 Mean Ox Delivery Rate 08/15 0900 31 140/66 92 98 08/15 0801 81 16 108/63 77 100 08/15 0800 36.4 08/15 0700 79 27 139/65 93 97 08/15 0600 86 32 142/67 96 91 08/15 0500 73 26 140/64 92 98 08/15 0400 83 34 140/88 107 100 08/15 0339 96 Room air 21 08/15 0300 75 19 126/64 89 98 08/15 0200 87 24 139/64 92 98 08/15 0100 90 19 156/69 99 97 08/15 0011 98 Room air 21 08/15 0000 92 22 132/64 92 96 08/14 2301 119 30 149/62 89 97 08/14 2245 95 23 156/67 96 97 08/14 2230 97 26 154/65 93 96 08/14 2215 98 16 171/70 101 97 08/14 2203 90 21 173/74 107 97 08/14 2201 94 25 187/77 110 98 08/14 2105 95 Room air 21 08/14 2101 86 32 167/72 103 97 08/14 2000 37.2 08/14 2000 79 17 147/71 101 96 08/14 1901 81 18 141/66 95 95 08/14 1801 90 30 158/69 99 96 08/14 1700 104 41 157/82 109 93 08/14 1600 36.8 08/14 1600 77 25 146/66 95 97 08/14 1500 87 32 150/79 107 87 08/14 1436 83 25 124/59 83 98 08/14 1401 80 22 132/60 87 100 08/14 1300 77 19 139/63 90 100 08/14 1201 82 33 138/103 114 91 08/14 1200 36.9 08/14 1100 122/69 90 08/14 1100 67 31 98 08/14 1000 68 27 113/58 80 97 PATIENT WEIGHT: Weight (lb): 222Weight (oz): 7.14Weight (kg): 100.900 Medications:Active Meds + DC'd Last 24 HrsAmiodarone HCl (NEXTERONE 150MG/D5W 100ML) 100 ML STAT STA IV (DC) Aspirin (ASPIRIN) 81 MG DAILY PO Budesonide (PULMICORT RESPULES) 0.5 MG RTBID INH Formoterol Fumarate (PERFOROMIST) 20 MCG RTBID NEB Metoprolol Tartrate (LOPRESSOR) 25 MG Q12HR PO Ipratropium [place] (ATROVENT) 500 MCG RTQ6H INH Ipratropium [place] (ATROVENT) 500 MCG Q2H PRN PRN INH Cyanocobalamin (Vitamin B-12 500 mcg tab) 500 MCG DAILY PO Ferrous Sulfate (FERROUS SULFATE) 325 MG DAILY PO Sodium Chloride (SODIUM CHLORIDE 0.9%) 250 ML ONCE ONE IV Bisacodyl (DULCOLAX) 10 MG ONCE PRN RECTAL Dopamine HCl/Dextrose (DOPamine 400MG/D5W 250ML) 250 ML ASDIR IV Tramadol HCl (ULTRAM) 50 MG Q4H PRN PRN PO Clopidogrel Bisulfate (Plavix) 75 MG DAILY PO Polyethylene Glycol (MIRALAX) 17 GM DAILY PO Amiodarone HCl (AMIODARONE HCL) 450 MG ASDIR IV (CKD) Dextrose/Water (D5%W NON-DEHP) 250 MLPantoprazole (PROTONIX) 40 MG DAILY@0600 PO Docusate Sodium (COLACE) 100 MG BID PO Mupirocin (BACTROBAN 2% 22 GM OINTMENT) 1 APPLIC BID NASAL (DC) Sennosides (Senna Lax 8.6 MG TABLET) 17.2 MG BEDTIME PO Amiodarone HCl (CORDARONE) 200 MG TID PO Acetaminophen (TYLENOL) 650 MG Q4H PRN PRN PO Acetaminophen (TYLENOL) 650 MG Q4H PRN PRN RECTAL Calcium Chloride (CALCIUM CHLORIDE) 1 GM ASDIR PRN IV Dextrose/Water (DEXTROSE 10% IN WATER) 125 ML ASDIR PRN IV (CKD) Dextrose/Water (DEXTROSE 10% IN WATER) 250 ML ASDIR PRN IV (CKD) Epinephrine (ADRENALIN CHLORIDE) 4 MG ASDIR IV Dextrose/Water (DEXTROSE 5% WATER) 246 MLGlucagon (GLUCAGON) 1 MG ASDIR PRN IM Insulin Human Regular (HumuLIN R) 100 UNIT ASDIR IV (CKD) Sodium Chloride (SODIUM CHLORIDE 0.9%) 99 MLMagnesium Sulfate (MAGNESIUM SULFATE 4GM/SWFI 100ML) 100 ML ASDIR PRN IV Magnesium Sulfate (MAGNESIUM SULFATE 2GM/SWFI 50ML) 50 ML ASDIR PRN IV Magnesium Sulfate/Dextrose (MAGNESIUM SULFATE 1GM/D5W 100ML) 100 ML ASDIR PRN IV Nitroglycerin/Dextrose (NITROGLYCERIN 50,000MCG/D5W 250ML) 250 ML ASDIR IV Norepinephrine Bitartrate (NOREPINEPHRINE 8 MG/NS 250 ML) 250 ML TITRATE IV Ondansetron HCl (ZOFRAN) 4 MG Q6H PRN PRN IV Potassium Chloride (KCL 20MEQ/SWFI 100ML) 100 ML ASDIR PRN IV Sodium Bicarbonate (SODIUM BICARBONATE) 50 MEQ ASDIR PRN IV Sodium Chloride (SODIUM CHLORIDE 0.9%) 1,000 ML .Q20H IV Sodium Chloride (SODIUM CHLORIDE 0.9%) 250 ML Q24H IV Melatonin (Melatonin) 6 MG BEDTIME PRN PRN PO Hydralazine HCl (APRESOLINE) 10 MG Q6H PRN PRN IV Physical ExamGeneral appearance: alert, awake, oriented, no acute distressHead/Eyes: atraumatic, PERRLCardiovascular: CV assessment: irregularly irregularRespiratory: decreased breath sounds, on oxygen, no distressAbdomen: soft, non-tender, normal bowel sounds, no distentionGenitourinary: no flank pain, no urinary catheterLower extremity: LE assessment: edema, normal capillary refill, normal temperatureMusculoskeletal: normal inspectionNeuro/TEAROOM HOST/HOSTESS: alert, oriented X 3Skin: poor skin turgor, bruise/ecchymosis Right forearmPsychiatry: normal affect, normal mood ResultsFindings/Data:Laboratory Tests 08/15 0155 Chemistry Sodium (134 - 147 mEq/L) 138 Potassium (3.4 - 5.0 mEq/L) 4.1 Chloride (100 - 108 mEq/L) 109 H Carbon Dioxide (21 - 33 mEq/l) 26 Anion Gap (0 - 20) 7 BUN (7 - 18 mg/dL) 36 H Creatinine (0.6 - 1.3 mg/dL) 1.9 H Glomerular Filtr Rate (70 - 80) 35.2 L Glucose (70 - 110 mg/dL) 109 Calcium (8.0 - 10.5 mg/dL) 9.2 Magnesium (1.80 - 2.40 mg/dL) 2.32 Total Bilirubin (0.0 - 1.0 mg/dL) 0.60 Direct Bilirubin (0.0 - 0.30 MG/DL) 0.20 Indirect Bilirubin (MG/DL) 0.40 AST (15 - 37 IUnit/L) 21 ALT (30 - 65 IUnit/L) < 7 L Total Alk Phosphatase (20 - 125 IUnit/L) 68 Total Protein (6.4 - 8.2 g/dL) 6.0 L Albumin (3.4 - 5.0 g/dL) 3.40 Laboratory Tests 08/15 0155 Hematology WBC (4.5 - 11.0 x10 3/uL) 10.6 RBC (4.00 - 5.60 x10 6/uL) 3.02 L Hgb (12.5 - 16.9 g/dL) 9.2 L Hct (37.5 - 50.7 %) 27.6 L MCV (81.0 - 99.0 fL) 91.4 MCH (27.0 - 33.0 pg) 30.5 MCHC (33.0 - 37.0 g/dL) 33.3 RDW (11.5 - 14.5 %) 13.7 Plt Count (150 - 400 x10 3/uL) 198 MPV (7.0 - 9.0 fL) 9.6 H Neut % (Auto) (56.0 - 77.0 %) 71.7 Lymph % (Auto) (14.0 - 32.0 %) 13.1 L [place] % (Auto) (4.8 - 9.0 %) 11.7 H Eos % (Auto) (0.3 - 3.7 %) 2.4 Baso % (Auto) (0.0 - 2.0 %) 0.5 Neut # (Auto) (2.0 - 7.6 x10 3/uL) 7.61 H Lymph # (Auto) (1.0 - 3.8 x10 3/uL) 1.39 [place] # (Auto) (0.1 - 0.8 x10 3/uL) 1.24 H Eos # (Auto) (0.0 - 0.2 x10 3/uL) 0.25 H Baso # (Auto) (0.0 - 0.2 x10 3/uL) 0.05 Abs Immat Gran (auto) (0.00 - 0.03 x10 3/uL) 0.06 H Add Manual Diff NO Immature Gran % (0.0 - 2.0 %) 0.6 Nucleated RBC % (0 - 0 %) 0.0 Nucleated RBCs # (Man) (0.0 - 0.1 x10 3/uL) 0.00 Laboratory Tests 08/15 0155 Chemistry Magnesium (1.80 - 2.40 mg/dL) 2.32 Radiology data:Recent Impressions:RADIOLOGY - XR CHEST 1 V 08/15 0500 Report Impression - Status: SIGNED Entered: 08/15/2022 0846 IMPRESSION: Cardiomegaly with minimal central venous congestion. Impression By: [email or web address] - Jaylyn Ledesma D.O. Results: labs reviewed, vital signs reviewedTelemetry Interpretation:afib with controlled rate Diagnosis, Assessment PlanPlan discussed with: patient Free Text DxA P NotesFree Text DxA P Notes:1. CAD s/p CABG x 5 (NGUYEN-LAD, SVG-Olga Lidia, SVG-OM, SVG-LPLA, SVG-PDA) continue asa, bb, plavixecho 08/12- LVEF 50-54%, left pleural effusionintolerant of statin, will consider nonstatin med such as Repatha or Nexletol outpatientpost-op per CTS 2. A-fib: Paroxysmal- rate controlleds/p PVI and ARISTEO amputationon amiodarone and BB 3. HTNBP on upward trendcontinue metoprolol 4. AKIeven fluid balancecreat down to 1.9 todayper Nephrology continue supportive careDoing good post-op at 1249 at 1810 RPT #:[id number] OF REPORTPRProgress [id number]:42:[id number] for patient [id number]:49:28 [facility] 2022-08-15 08:44:00 [id number] qUgdBthMwHSpu0wQyDZ78pyuizh+U/lQvlBaK [id number]:44:00 [facility] ([facility])Rehab Progress NoteREPORT#:[id number] REPORT STATUS: SignedDATE:08/15/22 TIME: 843 PATIENT: BRENNAN AHN UNIT #: [id number]#: [id number] [address] AGE: 82 SEX: M ATTEND: Salazar Hurd [facility] AUTHOR: Lavinia Jimenez NP * ALL edits or amendments must be made on the electronic/computer document * SubjectiveChief complaint:Rehab follow-upSeen in CVICUDenies sob or pain Doing well. Sitting up in chairNADDenies MORA/N/V/D/CP14 systems reviewed and neg. except that above. Objective GeneralVS:Vital Signs: Date Time Temp Pulse Resp B/P B/P Pulse O2 O2 Flow FiO2 Mean Ox Delivery Rate 08/15 0801 81 16 108/63 77 100 08/15 0800 97.5 08/15 0700 79 27 139/65 93 97 08/15 0600 86 32 142/67 96 91 08/15 0500 73 26 140/64 92 98 08/15 0400 83 34 140/88 107 100 08/15 0339 96 Room air 21 08/15 0300 75 19 126/64 89 98 08/15 0200 87 24 139/64 92 98 08/15 0100 90 19 156/69 99 97 08/15 0011 98 Room air 21 08/15 0000 92 22 132/64 92 96 08/14 2301 119 30 149/62 89 97 08/14 2245 95 23 156/67 96 97 08/14 2230 97 26 154/65 93 96 08/14 2215 98 16 171/70 101 97 08/14 2203 90 21 173/74 107 97 08/14 2201 94 25 187/77 110 98 08/14 2105 95 Room air 21 08/14 2101 86 32 167/72 103 97 08/14 2000 98.9 08/14 2000 79 17 147/71 101 96 08/14 1901 81 18 141/66 95 95 08/14 1801 90 30 158/69 99 96 08/14 1700 104 41 157/82 109 93 08/14 1600 98.2 08/14 1600 77 25 146/66 95 97 08/14 1500 87 32 150/79 107 87 08/14 1436 83 25 124/59 83 98 08/14 1401 80 22 132/60 87 100 08/14 1300 77 19 139/63 90 100 08/14 1201 82 33 138/103 114 91 08/14 1200 98.5 08/14 1100 122/69 90 08/14 1100 67 31 98 08/14 1000 68 27 113/58 80 97 PATIENT WEIGHT: Weight (lb): 222Weight (oz): 7.14Weight (kg): 100.900 Medications:Active Meds + DC'd Last 24 HrsAmiodarone HCl (NEXTERONE 150MG/D5W 100ML) 100 ML STAT STA IV (DC) Aspirin (ASPIRIN) 81 MG DAILY PO Budesonide (PULMICORT RESPULES) 0.5 MG RTBID INH Formoterol Fumarate (PERFOROMIST) 20 MCG RTBID NEB Metoprolol Tartrate (LOPRESSOR) 25 MG Q12HR PO Ipratropium [place] (ATROVENT) 500 MCG RTQ6H INH Ipratropium [place] (ATROVENT) 500 MCG Q2H PRN PRN INH Cyanocobalamin (Vitamin B-12 500 mcg tab) 500 MCG DAILY PO Ferrous Sulfate (FERROUS SULFATE) 325 MG DAILY PO Sodium Chloride (SODIUM CHLORIDE 0.9%) 250 ML ONCE ONE IV Bisacodyl (DULCOLAX) 10 MG ONCE PRN RECTAL Dopamine HCl/Dextrose (DOPamine 400MG/D5W 250ML) 250 ML ASDIR IV Tramadol HCl (ULTRAM) 50 MG Q4H PRN PRN PO Clopidogrel Bisulfate (Plavix) 75 MG DAILY PO Polyethylene Glycol (MIRALAX) 17 GM DAILY PO Amiodarone HCl (AMIODARONE HCL) 450 MG ASDIR IV (CKD) Dextrose/Water (D5%W NON-DEHP) 250 MLPantoprazole (PROTONIX) 40 MG DAILY@0600 PO Docusate Sodium (COLACE) 100 MG BID PO Mupirocin (BACTROBAN 2% 22 GM OINTMENT) 1 APPLIC BID NASAL (DC) Sennosides (Senna Lax 8.6 MG TABLET) 17.2 MG BEDTIME PO Amiodarone HCl (CORDARONE) 200 MG TID PO Acetaminophen (TYLENOL) 650 MG Q4H PRN PRN PO Acetaminophen (TYLENOL) 650 MG Q4H PRN PRN RECTAL Calcium Chloride (CALCIUM CHLORIDE) 1 GM ASDIR PRN IV Dextrose/Water (DEXTROSE 10% IN WATER) 125 ML ASDIR PRN IV (CKD) Dextrose/Water (DEXTROSE 10% IN WATER) 250 ML ASDIR PRN IV (CKD) Epinephrine (ADRENALIN CHLORIDE) 4 MG ASDIR IV Dextrose/Water (DEXTROSE 5% WATER) 246 MLGlucagon (GLUCAGON) 1 MG ASDIR PRN IM Insulin Human Regular (HumuLIN R) 100 UNIT ASDIR IV (CKD) Sodium Chloride (SODIUM CHLORIDE 0.9%) 99 MLMagnesium Sulfate (MAGNESIUM SULFATE 4GM/SWFI 100ML) 100 ML ASDIR PRN IV Magnesium Sulfate (MAGNESIUM SULFATE 2GM/SWFI 50ML) 50 ML ASDIR PRN IV Magnesium Sulfate/Dextrose (MAGNESIUM SULFATE 1GM/D5W 100ML) 100 ML ASDIR PRN IV Nitroglycerin/Dextrose (NITROGLYCERIN 50,000MCG/D5W 250ML) 250 ML ASDIR IV Norepinephrine Bitartrate (NOREPINEPHRINE 8 MG/NS 250 ML) 250 ML TITRATE IV Ondansetron HCl (ZOFRAN) 4 MG Q6H PRN PRN IV Potassium Chloride (KCL 20MEQ/SWFI 100ML) 100 ML ASDIR PRN IV Sodium Bicarbonate (SODIUM BICARBONATE) 50 MEQ ASDIR PRN IV Sodium Chloride (SODIUM CHLORIDE 0.9%) 1,000 ML .Q20H IV Sodium Chloride (SODIUM CHLORIDE 0.9%) 250 ML Q24H IV Melatonin (Melatonin) 6 MG BEDTIME PRN PRN PO Hydralazine HCl (APRESOLINE) 10 MG Q6H PRN PRN IV Physical ExamGeneral appearance: obese, alert, awake, orientedPsych: alert, normal affectHEENT: anicteric, sclera clearNeck: supple, no JVDCardiovascular: S1/S2, no murmurRespiratory: aerating well, clear bilaterallyAbdomen: bowel sounds present, non-distended, softSkin: intact, no rashMusculoskeletal - general: Musculoskeletal - general: normal muscle mass, normal tone, hips 3+, decereased shoulder AROM due to sternal precautionsNeuro/TEAROOM HOST/HOSTESS: alert, CNII-XII intact, normal speech, no sensory deficits ResultsFindings/Data:Laboratory Tests: 08/15 0155 Chemistry Sodium (134 - 147 mEq/L) 138 Potassium (3.4 - 5.0 mEq/L) 4.1 Chloride (100 - 108 mEq/L) 109 H Carbon Dioxide (21 - 33 mEq/l) 26 Anion Gap (0 - 20) 7 BUN (7 - 18 mg/dL) 36 H Creatinine (0.6 - 1.3 mg/dL) 1.9 H Glomerular Filtr Rate (70 - 80) 35.2 L Glucose (70 - 110 mg/dL) 109 Calcium (8.0 - 10.5 mg/dL) 9.2 Magnesium (1.80 - 2.40 mg/dL) 2.32 Total Bilirubin (0.0 - 1.0 mg/dL) 0.60 Direct Bilirubin (0.0 - 0.30 MG/DL) 0.20 Indirect Bilirubin (MG/DL) 0.40 AST (15 - 37 IUnit/L) 21 ALT (30 - 65 IUnit/L) < 7 L Total Alk Phosphatase (20 - 125 IUnit/L) 68 Total Protein (6.4 - 8.2 g/dL) 6.0 L Albumin (3.4 - 5.0 g/dL) 3.40 Hematology WBC (4.5 - 11.0 x10 3/uL) 10.6 RBC (4.00 - 5.60 x10 6/uL) 3.02 L Hgb (12.5 - 16.9 g/dL) 9.2 L Hct (37.5 - 50.7 %) 27.6 L MCV (81.0 - 99.0 fL) 91.4 MCH (27.0 - 33.0 pg) 30.5 MCHC (33.0 - 37.0 g/dL) 33.3 RDW (11.5 - 14.5 %) 13.7 Plt Count (150 - 400 x10 3/uL) 198 MPV (7.0 - 9.0 fL) 9.6 H Neut % (Auto) (56.0 - 77.0 %) 71.7 Lymph % (Auto) (14.0 - 32.0 %) 13.1 L [place] % (Auto) (4.8 - 9.0 %) 11.7 H Eos % (Auto) (0.3 - 3.7 %) 2.4 Baso % (Auto) (0.0 - 2.0 %) 0.5 Neut # (Auto) (2.0 - 7.6 x10 3/uL) 7.61 H Lymph # (Auto) (1.0 - 3.8 x10 3/uL) 1.39 [place] # (Auto) (0.1 - 0.8 x10 3/uL) 1.24 H Eos # (Auto) (0.0 - 0.2 x10 3/uL) 0.25 H Baso # (Auto) (0.0 - 0.2 x10 3/uL) 0.05 Abs Immat Gran (auto) (0.00 - 0.03 x10 3/uL) 0.06 H Add Manual Diff NO Immature Gran % (0.0 - 2.0 %) 0.6 Nucleated RBC % (0 - 0 %) 0.0 Nucleated RBCs # (Man) (0.0 - 0.1 x10 3/uL) 0.00 Diagnosis, Assessment PlanFree Text A P:Multivessel CADStatus post CABG i2Npwddn weakness Unsteady gaitImpaired ADLs, mobilityAlzheimer's dementiaPostoperative anemiaAKI on CKDHistory of A-fibHTNModerate bilateral pleural effusions Plan:Continue PT/OTOut of bed to chairWork on strength, bed mobility, transfers, gaitMonitor for left knee bucklingIncrease enduranceFall precautionsMonitor p.o. intake and nutritionStrict decubitus precautionsMonitor labs closelyMonitor telemetry. Atrial fibs intermittentAdvance therapies as tolerated.. Excellent candidate CLOF:100 feet x 2 min assist forward stooped posturePatient with slight confusion/dementia quired 1 rest break Criteria for acute rehabTelemetry monitoring-intermittent atrial fibs/may require frequent adjustments in medsDementia/confusion-Higher level of nursing care and monitoring for safetyAKI on CKD-closer medical monitoring-acute changes could lead to arrhythmias Patient is capable and motivated of the 3-hour therapy requirement for IPR IRF consulted. [employer]. Will require insurance approval Total time was 35 minutes > 50% with patient performing physical examination, discussing plan of care, goals, therapies, progress, medications, labs. All questions answeredRehab attestation:Face to face exam completed. Treatment plan discussed with patient. at 0908 RPT #:[id number] OF REPORTPRProgress [id number]:44:[id number] for patient [id number]:08:42 [facility] 2022-08-14 14:34:00 [id number] [id number]+63IecchhFWXcy6YvLGt90mTZo2Atf [id number]:34:00 [facility] ([facility])Critical Care Progress NoteREPORT#:[id number] REPORT STATUS: SignedDATE:08/14/22 TIME: 1434 PATIENT: BRENNAN AHN UNIT #: [id number]#: [id number] [address] [birth year] AGE: 82 SEX: M ATTEND: Salazar Hurd [facility] AUTHOR: Kel Agustin MD * ALL edits or amendments must be made on the electronic/computer document * SubjectiveChief complaint:CABGHPI:82-year-old male with history of hypertension, A-fib on Eliquis, SVT s/p ablation, CKD and possible Alzheimer disease, who presented with chest pain and found to have multivessel coronary artery disease on cardiac cath. Patient underwent CABG x5 today on 08/10/2022. Has LVH with preserved EF. Crystalloid 1 L,Cell Saver 425, urine output 350. Surgery went well and patient was transferred to CVICU postop in a stable surgical condition. He is currently intubated on 4 mics of Levophed, 2 mics of epinephrine and insulin drip. Comments:Interval history- Patient creatinine is improving With good urine output Review of Systems Free Text ROS NotesFree Text ROS Notes:12 point Review of Systems was performed to the extent possible including discussion with the nursing staff and review of vital signs and all data. All systems negative other than pertinent negative/positive findings mentioned in the interval history section. Objective GeneralVS/I OLast Documented: Result Date Time Pulse Ox 100 08/14 1300 B/P 139/63 08/14 1300 B/P Mean 90 08/14 1300 Pulse 77 08/14 1300 Resp 19 08/14 1300 Temp 36.9 08/14 1200 O2 Delivery Nasal cannula 08/14 0800 O2 Flow Rate 2 08/14 0800 FiO2 35 08/13 2355 24 hour I O ending at 0700: 08/14 0700 08/13 1900 Intake Total 200 1203.00 Output Total 1850 1040 Balance -1650 163.00 Intake, IV 363.00 Intake, Oral 200 840 Output, Chest 50 90 Tube Drainage Output, Urine 1800 950 PATIENT WEIGHT: Weight (lb): 219Weight (oz): 12.81Weight (kg): 99.700 Medications:Active Meds + DC'd Last 24 HrsAspirin (ASPIRIN) 81 MG DAILY PO Budesonide (PULMICORT RESPULES) 0.5 MG RTBID INH Formoterol Fumarate (PERFOROMIST) 20 MCG RTBID NEB Metoprolol Tartrate (LOPRESSOR) 25 MG Q12HR PO Albumin Human (ALBUMINAR 5% 12.5GM/250ML) 250 ML ONCE ONE IV (DC) Ipratropium [place] (ATROVENT) 500 MCG RTQ6H INH Ipratropium [place] (ATROVENT) 500 MCG Q2H PRN PRN INH Cyanocobalamin (Vitamin B-12 500 mcg tab) 500 MCG DAILY PO Ferrous Sulfate (FERROUS SULFATE) 325 MG DAILY PO Sodium Chloride (SODIUM CHLORIDE 0.9%) 250 ML ONCE ONE IV Bisacodyl (DULCOLAX) 10 MG ONCE PRN RECTAL Dopamine HCl/Dextrose (DOPamine 400MG/D5W 250ML) 250 ML ASDIR IV Tramadol HCl (ULTRAM) 50 MG Q4H PRN PRN PO Clopidogrel Bisulfate (Plavix) 75 MG DAILY PO Polyethylene Glycol (MIRALAX) 17 GM DAILY PO Amiodarone HCl (AMIODARONE HCL) 450 MG ASDIR IV (CKD) Dextrose/Water (D5%W NON-DEHP) 250 MLPantoprazole (PROTONIX) 40 MG DAILY@0600 PO Docusate Sodium (COLACE) 100 MG BID PO Metoprolol Tartrate (LOPRESSOR) 12.5 MG Q12HR PO (DC) Mupirocin (BACTROBAN 2% 22 GM OINTMENT) 1 APPLIC BID NASAL Sennosides (Senna Lax 8.6 MG TABLET) 17.2 MG BEDTIME PO Amiodarone HCl (CORDARONE) 200 MG TID PO Acetaminophen (TYLENOL) 650 MG Q4H PRN PRN PO Acetaminophen (TYLENOL) 650 MG Q4H PRN PRN RECTAL Calcium Chloride (CALCIUM CHLORIDE) 1 GM ASDIR PRN IV Dextrose/Water (DEXTROSE 10% IN WATER) 125 ML ASDIR PRN IV (CKD) Dextrose/Water (DEXTROSE 10% IN WATER) 250 ML ASDIR PRN IV (CKD) Epinephrine (ADRENALIN CHLORIDE) 4 MG ASDIR IV Dextrose/Water (DEXTROSE 5% WATER) 246 MLGlucagon (GLUCAGON) 1 MG ASDIR PRN IM Insulin Human Regular (HumuLIN R) 100 UNIT ASDIR IV (CKD) Sodium Chloride (SODIUM CHLORIDE 0.9%) 99 MLMagnesium Sulfate (MAGNESIUM SULFATE 4GM/SWFI 100ML) 100 ML ASDIR PRN IV Magnesium Sulfate (MAGNESIUM SULFATE 2GM/SWFI 50ML) 50 ML ASDIR PRN IV Magnesium Sulfate/Dextrose (MAGNESIUM SULFATE 1GM/D5W 100ML) 100 ML ASDIR PRN IV Nitroglycerin/Dextrose (NITROGLYCERIN 50,000MCG/D5W 250ML) 250 ML ASDIR IV Norepinephrine Bitartrate (NOREPINEPHRINE 8 MG/NS 250 ML) 250 ML TITRATE IV Ondansetron HCl (ZOFRAN) 4 MG Q6H PRN PRN IV Potassium Chloride (KCL 20MEQ/SWFI 100ML) 100 ML ASDIR PRN IV Sodium Bicarbonate (SODIUM BICARBONATE) 50 MEQ ASDIR PRN IV Sodium Chloride (SODIUM CHLORIDE 0.9%) 1,000 ML .Q20H IV Sodium Chloride (SODIUM CHLORIDE 0.9%) 250 ML Q24H IV Melatonin (Melatonin) 6 MG BEDTIME PRN PRN PO Hydralazine HCl (APRESOLINE) 10 MG Q6H PRN PRN IV ResultsFindings/data:Laboratory Tests 08/14 1952 Chemistry Sodium (134 - 147 mEq/L) 137 Potassium (3.4 - 5.0 mEq/L) 4.1 Chloride (100 - 108 mEq/L) 104 Carbon Dioxide (21 - 33 mEq/l) 27 Anion Gap (0 - 20) 10 BUN (7 - 18 mg/dL) 33 H Creatinine (0.6 - 1.3 mg/dL) 2.0 H Glomerular Filtr Rate (70 - 80) 33.1 L Glucose (70 - 110 mg/dL) 107 POC Glucose (70 - 110 MG/DL) 93 Calcium (8.0 - 10.5 mg/dL) 8.7 Magnesium (1.80 - 2.40 mg/dL) 2.49 H Laboratory Tests 08/14 0342 Hematology WBC (4.5 - 11.0 x10 3/uL) 9.4 RBC (4.00 - 5.60 x10 6/uL) 2.85 L Hgb (12.5 - 16.9 g/dL) 8.5 L Hct (37.5 - 50.7 %) 26.1 L MCV (81.0 - 99.0 fL) 91.6 MCH (27.0 - 33.0 pg) 29.8 MCHC (33.0 - 37.0 g/dL) 32.6 L RDW (11.5 - 14.5 %) 13.3 Plt Count (150 - 400 x10 3/uL) 135 L MPV (7.0 - 9.0 fL) 10.8 H Neut % (Auto) (56.0 - 77.0 %) 76.9 Lymph % (Auto) (14.0 - 32.0 %) 11.1 L [place] % (Auto) (4.8 - 9.0 %) 9.7 H Eos % (Auto) (0.3 - 3.7 %) 1.6 Baso % (Auto) (0.0 - 2.0 %) 0.3 Neut # (Auto) (2.0 - 7.6 x10 3/uL) 7.22 Lymph # (Auto) (1.0 - 3.8 x10 3/uL) 1.04 [place] # (Auto) (0.1 - 0.8 x10 3/uL) 0.91 H Eos # (Auto) (0.0 - 0.2 x10 3/uL) 0.15 Baso # (Auto) (0.0 - 0.2 x10 3/uL) 0.03 Abs Immat Gran (auto) (0.00 - 0.03 x10 3/uL) 0.04 H Add Manual Diff NO Immature Gran % (0.0 - 2.0 %) 0.4 Nucleated RBC % (0 - 0 %) 0.0 Nucleated RBCs # (Man) (0.0 - 0.1 x10 3/uL) 0.00 Laboratory Tests 08/14/22 0342:[Embedded Image Not Available] Radiology dataRecent Impressions:ULTRASOUND - US SOFT TISSUE TORSO 08/13 1619 Report Impression - Status: SIGNED Entered: 08/13/20222026 IMPRESSION: Moderate bilateral pleural effusions, with basilar atelectasis.Impression By: [email or web address] - Tomy Marion M.D.RADIOLOGY - XR CHEST 1 V 08/14 0648 Report Impression - Status: SIGNED Entered: 08/14/2022 0809 IMPRESSION: Grossly stable exam. Impression By: [email or web address] - Morteza Allen M.D. Free Text Obj NotesFree Text Obj Notes:GEN: Patient is calm and in no distress.NECK: Supple, no JVD or thrush. No adenopathy.LUNGS: Clear lungs, no wheezes, no rales or crackles.CV: Irregularly irregular, no murmurs are heard. No S3 or rubs. GI: Abdomen is soft, not tender. Bowel sounds are present.EXT/Musc: No edema. No clubbing or cyanosis noted. Skin is warm.NEURO: Awake, alert and oriented x 3. No focal findings. Treatment Prophylaxis Treatment ProphylaxisDrain(s)/tube(s): Drain(s)/tube(s): chest, urinary catheter Diagnosis, Assessment PlanProblem list/A P: 1. CAD (coronary artery disease) 2. Postoperative pulmonary dysfunction after cardiac surgery 3. S/P CABG x 5 Free text A P:82-year-old male with history of hypertension, A-fib on Eliquis, SVT s/p ablation, CKD and possible Alzheimer disease, who presented with chest pain and found to have multivessel coronary artery disease on cardiac cath. Patient underwent CABG x5 today on 08/10/2022. Has LVH with preserved EF. Crystalloid 1 L,Cell Saver 425, urine output 350. Surgery went well and patient was transferred to CVICU postop in a stable surgical condition. He is currently intubated on 4 mics of Levophed, 2 mics of epinephrine and insulin drip. Neuro: Appears intact, keep off sedation, multimodal pain controlRespiratory: Sats well, CPAP as tolerated, plan for extubation, ABG and CXR reviewedCardiovascular: HD unstable on vasopressors, attempt to wean, keep CTs to suctionRenal: strict I/Os, monitor Cr and electrolytes, LA clear, judicious resuscitationGI: bedside swallow then oral diet after extubation, bowel regimen, monitor LFTsID: reactive leukocytosis, trend WBC, continue periop antibiotics per protocolHem: acute blood loss anemia, monitor Hgb and CTs output, transfuse as neededEndo: Blood glucose control with insulin gtt per protocolMisc: PTOT consult, DVT and GI prophylaxis with DAPT and PPI 3/10Continue supplemental oxygen and titrate FiO2 to keep saturation more than 90%.Inhaled bronchodilators as neededIS and LVEPJudicious pain controlAspirin and PlavixAmiodarone p.o.MetoprololAmiodarone bolus and drip1 albumin bolus1 dose of Lasix 20 mgDopamine drip at 3 micsMonitor kidney function and trend creatinineMonitor and replete electrolytesStrict I O'sCardiac diet with bowel regimenBlood glucose control, sliding scale insulinVTE prophylaxis, DOAC'sStress ulcer prophylaxis, ProtonixDiscussed with ICU team and cardiac surgeryCritical care time 41 minutes 3/11Continue supplemental oxygen and titrate FiO2 to keep saturation more than 90%.Inhaled bronchodilators as neededIS and LVEPContinue monitoring chest tube output, increased output after walkingJudicious pain controlEchocardiogram is done, results are pendingAspirin and PlavixAmiodarone p.o.MetoprololAmiodarone bolus and dripOff dopamineHolding off on Lasix for now per nephrologyMonitor kidney function and trend creatinineMonitor and replete electrolytesStrict I O'sCardiac diet with bowel regimenBlood glucose control, sliding scale insulinVTE prophylaxis, DOAC'sStress ulcer prophylaxis, ProtonixDiscussed with ICU team, nephrology and cardiac surgeryCritical care time 39 minutes 08/13Continue supplemental oxygen and titrate FiO2 to keep saturation more than 90%.Inhaled bronchodilators as neededIS and LVEPContinue monitoring chest tube output, increased output after walkingJudicious pain controlEchocardiogram is done, results are pendingAspirin and PlavixAmiodarone p.o.MetoprololAmiodarone bolus and dripOff dopamineHolding off on Lasix for now per nephrologyMonitor kidney function and trend creatinineMonitor and replete electrolytesStrict I O'sCardiac diet with bowel regimenBlood glucose control, sliding scale insulinVTE prophylaxis, DOAC'sStress ulcer prophylaxis, ProtonixDiscussed with ICU team, nephrology and cardiac surgeryCritical care time 39 minutes 08/14Neurologically intact Pain well controlledContinue nebsCreatnine improving, monitor the urine output , renal following A fib intermittently, rate controlled. Is on amiodarone and metoprolol.Patient is on room airPatient had a bowel movement.Sugars are well controlled.DVT prophylaxis with SCDs and DAPT.PPI.PT OT.Disposition will be home. Total critical care time 35 minutes excluding procedures Consultants: cardiology, cardiovascular surgery at [address] [facility] #:[id number] OF REPORTPRProgress [id number]:34:[id number] for patient [id number]:41:41 [facility] 2022-08-14 13:50:00 [id number] [id number]:50:00 [facility] ([facility])Nephrology Progress NoteREPORT#:[id number] REPORT STATUS: SignedDATE:08/14/22 TIME: 1350 PATIENT: BRENNAN AHN UNIT #: [id number]#: [id number] [address] [birth year] AGE: 82 SEX: M ATTEND: Salazar Hurd [facility] AUTHOR: Maura Terrazas MD * ALL edits or amendments must be made on the electronic/computer document * SubjectiveChief complaint:chest painHPI:82-year-old male known to have hypertension, atrial fibrillation, supraventricular tachycardia with requiring ablation presenting with multivesselcardiovascular disease and he underwent CABG 07/13/2022. He was extubated postoperatively and his blood pressures were stable when he was seen. He endorsed having kidney issues in the past and seeing a specialist managers at [place] but his kidney function had been stable and he denied any urinary complaints, chronic use of NSAIDs. He also denied any nausea, itching, cramping, change of taste, orthopnea. 08/14Patient feeling better, denying all systemic review. Objective GeneralVS/I O:Vital Signs: Date Time Temp Pulse Resp B/P B/P Pulse O2 O2 Flow FiO2 Mean Ox Delivery Rate 08/14 1300 77 19 139/63 90 100 08/14 1201 82 33 138/103 114 91 08/14 1200 36.9 08/14 1100 122/69 90 08/14 1100 67 31 98 08/14 1000 68 27 113/58 80 97 08/14 0901 80 28 122/59 83 97 08/14 0801 79 25 152/86 106 97 08/14 0800 36.8 08/14 0800 Nasal 2 cannula 08/14 0731 74 15 163/73 105 100 / 0444 68 14 100 / 0415 69 15 100 / 0353 100 Nasal 2 cannula 08/14 0345 76 14 100 / 0315 71 18 99 / 0245 69 24 99 / 0215 73 26 98 / 0200 67 14 100 / 0130 75 23 99 / 0115 84 30 91 / 0100 70 14 152/72 103 100 03/13 0045 69 16 100 03/ 0015 68 16 97 08/13 2355 68 16 35 08/13 2355 100 BiPAP 35 08/13 2345 70 15 98 03/12 2315 74 14 100 08/13 2245 74 17 97 03/ 2215 83 19 100 08/13 2145 100 29 94 08/13 2115 90 26 100 08/13 2115 99 Nasal 2 cannula 08/14 2055 82 28 156/74 106 98 08/13 2029 80 22 141/67 96 100 08/13 2014 80 26 151/73 105 99 08/14 1999 36.5 08/14 1999 Nasal 2 cannula 08/14 1999 94 32 147/73 104 98 08/13 1900 86 28 149/72 103 95 08/13 1846 89 31 148/73 104 97 08/13 1815 80 25 182/77 111 100 08/13 1801 89 34 158/89 114 95 08/13 1751 92 30 120/93 103 94 08/13 1700 82 30 151/75 105 98 08/13 1645 82 28 160/74 106 96 08/13 1630 80 17 156/72 104 98 08/13 1615 80 16 154/72 104 97 08/13 1600 37.1 08/13 1600 79 22 143/94 112 98 08/13 1546 87 28 140/104 117 95 08/13 1530 78 30 135/61 88 97 08/13 1515 83 28 145/67 95 96 08/13 1500 78 35 157/80 112 94 08/13 1445 76 28 138/65 93 95 08/13 1430 77 33 149/67 96 99 08/13 1416 83 26 126/95 108 92 08/13 1400 78 23 129/60 86 98 24 hour I O ending at 0700: 08/14 0700 08/13 1900 Intake Total 200 1203.00 Output Total 1850 1040 Balance -1650 163.00 Intake, IV 363.00 Intake, Oral 200 840 Output, Chest 50 90 Tube Drainage Output, Urine 1800 950 PATIENT WEIGHT: Weight (lb): 219Weight (oz): 12.81Weight (kg): 99.700 Physical ExamGeneral appearance: alert, awake, orientedHead/eyes: atraumatic, clear corneaENT: moist mucous membranes, normal noseNeck: no JVD, no lymphadenopathyCardiovascular: normal heart sounds, regular rate and rhythmRespiratory: aerating well, clear to auscultationAbdomen: non-tender, softGenitourinary: no bladder distention, no flank painExtremities: no edema, no gangrene, no swelling Treatment Prophylaxis Treatment ProphylaxisDrain(s)/tube(s): Drain(s)/tube(s): chest, urinary catheter Diagnosis, Assessment PlanFree Text A P:82-year-old male known to have hypertension, atrial fibrillation, supraventricular tachycardia with requiring ablation presenting with multivesselcardiovascular disease and he underwent CABG 07/13/2022. He was extubated postoperatively and his blood pressures were stable when he was seen. He endorsed having kidney issues in the past and seeing a specialist managers at [place] but his kidney function had been stable and he denied any urinary complaints, chronic use of NSAIDs. He also denied any nausea, itching, cramping, change of taste, orthopnea. Nephrology following for: 1. Acute kidney injury: Most likely prerenal as he recently had surgery. His blood pressures are stable but he appears dry therefore I would encourage oral intake and small boluses of IV fluid if needed. 2. Volume status: He appears hypovolemic even though his weight is elevated from admitting weight. Plan is to monitor input and output and continue to encourage oral intake and IV fluid if needed. 3. Electrolytes: His electrolytes appear to be in normal range plan is to monitor and replace as needed 4. Hypertension: His blood pressures are on the low side therefore I would treat only if his SBP goes above 160. 08/13 1. Acute kidney injury: Most likely prerenal as he recently had surgery. His blood pressures are stable but he appears dry therefore I would encourage oral intake and small boluses of IV fluid if needed.Renal function improving with improving blood presures. 2. Volume status: He appears hypovolemic even though his weight is elevated from admitting weight. Plan is to monitor input and output and continue to encourage oral intake and IV fluid if needed.Today his orthostatic blood pressures were positive so albumin one time given. 3. Electrolytes: His electrolytes appear to be in normal range plan is to monitor and replace as needed 4. Hypertension: His blood pressures are on the low side therefore I would treat only if his SBP goes above 160.Improved so PRN dose reccommended if SBP>160. 08/14 1. Acute kidney injury: Most likely prerenal as he recently had surgery. His blood pressures are stable but he appears dry therefore I would encourage oral intake and small boluses of IV fluid if needed.Renal function improving with improving blood presures. 2. Hypovolemia/orthostasis: Improving and now plan is to give low dose PO lasixonly if oxygenation worsens as he has risk of hypervolemia but still improving intravascular volume postoperatively. 3. Electrolytes: His electrolytes appear to be in normal range plan is to monitor and replace as needed 4. Hypertension: His blood pressures have been on the low side therefore I would treat only if his SBP goes above 160.Improved so PRN dose reccommended if SBP>160.Consultants: cardiology, cardiovascular surgery at 1355 RPT #:[id number] OF REPORTPRProgress [id number]:[id number] for patient [id number]:56:01 [facility] 2022-08-14 13:45:00 [id number] 5+[id number]:45:00 [facility] ([facility])Nephrology Progress NoteREPORT#:[id number] REPORT STATUS: SignedDATE:08/14/22 TIME: 1345 PATIENT: BRENNAN AHN UNIT #: [id number]#: [id number] [address] [birth year] AGE: 82 SEX: M ATTEND: Salazar Hurd [facility] AUTHOR: Maura Terrazas MD * ALL edits or amendments must be made on the electronic/computer document * SubjectiveChief complaint:chest painHPI:82-year-old male known to have hypertension, atrial fibrillation, supraventricular tachycardia with requiring ablation presenting with multivesselcardiovascular disease and he underwent CABG 07/13/2022. He was extubated postoperatively and his blood pressures were stable when he was seen. He endorsed having kidney issues in the past and seeing a specialist managers at [place] but his kidney function had been stable and he denied any urinary complaints, chronic use of NSAIDs. He also denied any nausea, itching, cramping, change of taste, orthopnea. 3/12Patient feeling dizzy on standing but tolerating orally and denying all systemicreview. Objective GeneralVS/I O:Vital Signs: Date Time Temp Pulse Resp B/P B/P Pulse O2 O2 Flow FiO2 Mean Ox Delivery Rate 08/14 1300 77 19 139/63 90 100 08/14 1201 82 33 138/103 114 91 08/14 1200 36.9 08/14 1100 122/69 90 08/14 1100 67 31 98 08/14 1000 68 27 113/58 80 97 08/14 0901 80 28 122/59 83 97 08/14 0801 79 25 152/86 106 97 08/14 0800 36.8 08/14 0800 Nasal 2 cannula 08/14 0731 74 15 163/73 105 100 / 0444 68 14 100 / 0415 69 15 100 08/14 0353 100 Nasal 2 cannula 08/14 0345 76 14 100 08/14 0315 71 18 99 / 0245 69 24 99 08/14 0215 73 26 98 08/14 0200 67 14 100 08/14 0130 75 23 99 / 0115 84 30 91 / 0100 70 14 152/72 103 100 / 0045 69 16 100 / 0015 68 16 97 / 2355 68 16 35 /12 2355 100 BiPAP 35 08/13 2345 70 15 98 /12 2315 74 14 100 08/13 2245 74 17 97 08/13 2215 83 19 100 08/13 2145 100 29 94 08/13 2115 90 26 100 08/13 2115 99 Nasal 2 cannula 08/14 2055 82 28 156/74 106 98 08/13 2029 80 22 141/67 96 100 08/13 2014 80 26 151/73 105 99 08/14 1999 36.5 08/14 1999 Nasal 2 cannula 08/14 1999 94 32 147/73 104 98 08/13 1900 86 28 149/72 103 95 08/13 1846 89 31 148/73 104 97 08/13 1815 80 25 182/77 111 100 08/13 1801 89 34 158/89 114 95 08/13 1751 92 30 120/93 103 94 08/13 1700 82 30 151/75 105 98 08/13 1645 82 28 160/74 106 96 08/13 1630 80 17 156/72 104 98 08/13 1615 80 16 154/72 104 97 08/13 1600 37.1 08/13 1600 79 22 143/94 112 98 08/13 1546 87 28 140/104 117 95 08/13 1530 78 30 135/61 88 97 08/13 1515 83 28 145/67 95 96 08/13 1500 78 35 157/80 112 94 08/13 1445 76 28 138/65 93 95 08/13 1430 77 33 149/67 96 99 08/13 1416 83 26 126/95 108 92 08/13 1400 78 23 129/60 86 98 24 hour I O ending at 0700: 08/14 0700 08/13 1900 Intake Total 200 1203.00 Output Total 1850 1040 Balance -1650 163.00 Intake, IV 363.00 Intake, Oral 200 840 Output, Chest 50 90 Tube Drainage Output, Urine 1800 950 PATIENT WEIGHT: Weight (lb): 219Weight (oz): 12.81Weight (kg): 99.700 Physical ExamGeneral appearance: alert, awake, orientedHead/eyes: atraumatic, clear corneaENT: moist mucous membranes, normal noseNeck: no JVD, no lymphadenopathyCardiovascular: normal heart sounds, regular rate and rhythmRespiratory: aerating well, clear to auscultationAbdomen: non-tender, softGenitourinary: no bladder distention, no flank painExtremities: no edema, no gangrene, no swelling Treatment Prophylaxis Treatment ProphylaxisDrain(s)/tube(s): Drain(s)/tube(s): chest, urinary catheter Diagnosis, Assessment PlanFree Text A P:82-year-old male known to have hypertension, atrial fibrillation, supraventricular tachycardia with requiring ablation presenting with multivesselcardiovascular disease and he underwent CABG 07/13/2022. He was extubated postoperatively and his blood pressures were stable when he was seen. He endorsed having kidney issues in the past and seeing a specialist managers at [place] but his kidney function had been stable and he denied any urinary complaints, chronic use of NSAIDs. He also denied any nausea, itching, cramping, change of taste, orthopnea. Nephrology following for: 1. Acute kidney injury: Most likely prerenal as he recently had surgery. His blood pressures are stable but he appears dry therefore I would encourage oral intake and small boluses of IV fluid if needed. 2. Volume status: He appears hypovolemic even though his weight is elevated from admitting weight. Plan is to monitor input and output and continue to encourage oral intake and IV fluid if needed. 3. Electrolytes: His electrolytes appear to be in normal range plan is to monitor and replace as needed 4. Hypertension: His blood pressures are on the low side therefore I would treat only if his SBP goes above 160. 08/13 1. Acute kidney injury: Most likely prerenal as he recently had surgery. His blood pressures are stable but he appears dry therefore I would encourage oral intake and small boluses of IV fluid if needed.Renal function improving with improving blood presures. 2. Volume status: He appears hypovolemic even though his weight is elevated from admitting weight. Plan is to monitor input and output and continue to encourage oral intake and IV fluid if needed.Today his orthostatic blood pressures were positive so albumin one time given. 3. Electrolytes: His electrolytes appear to be in normal range plan is to monitor and replace as needed 4. Hypertension: His blood pressures are on the low side therefore I would treat only if his SBP goes above 160.Improved so PRN dose reccommended if SBP>160.Consultants: cardiology, cardiovascular surgery at [address] [facility] #:[id number] OF REPORTPRProgress [id number]:45:[id number] for patient [id number]:51:00 [facility] 2022-08-14 11:04:00 [id number] [id number]:04:00 [facility] ProgREPORT#:[id number] REPORT STATUS: SignedDATE:08/14/22 TIME: 1104 PATIENT: BRENNAN AHN UNIT #: [id number]#: [id number] ROOM/BED: 2202-1DOB: [birth year] AGE: 82 SEX: M ATTEND: Salazar Hurd [facility] AUTHOR: Shiloh Pimentel [employer]ILD[employer] PRINC[employer]AL * ALL edits or amendments must be made on the electronic/computer document * GeneralPost-op: day 4Status post:08/10/22CABG x 5 (NGUYEN-LAD, SVG-Olga Lidia, SVG-OM, SVG-LPLA, SVG-PDA)PVIALAAEVH (RGSV) SubjectiveChief complaint:Follow-up CABG Review of SystemsConstitutional:Denies: fatigue, fever, generalized weakness, malaise. Skin:Denies: itching. Allergy/Immun:Denies: anaphylaxis, hives, itching. Eyes:Denies: itching, diplopia, eye pain. ENT:Denies: sore throat. Respiratory:Denies: JANG (dyspnea on exertion), pneumonia, SOB. Cardiovascular:Denies: chest pain, palpitations. GI:Denies: abdominal pain, GERD, nausea, vomiting. Musculoskeletal:Denies: extremity pain, extremity swelling, joint pain. Heme:Denies: bleeding, bruising. Neuro:Denies: dizziness, headache, lightheaded, syncope. All systems rev neg: except as marked Objective GeneralVS/I OLast Documented: Result Date Time B/P 122/69 08/14 1100 B/P Mean 90 08/14 1100 Pulse Ox 98 08/14 1100 Pulse 67 08/14 1100 Resp 31 08/14 1100 Temp 98.2 08/14 0800 O2 Delivery Nasal cannula 08/14 0800 O2 Flow Rate 2 08/14 0800 FiO2 35 08/13 2355 24 hour I O ending at 0700: 08/14 0700 08/13 1900 Intake Total 200 1203.00 Output Total 1850 1040 Balance -1650 163.00 Intake, IV 363.00 Intake, Oral 200 840 Output, Chest 50 90 Tube Drainage Output, Urine 1800 950 PATIENT WEIGHT: Weight (lb): 219Weight (oz): 12.81Weight (kg): 99.700 Physical ExamGeneral appearance: alert, oriented, mental status normal, no respiratory distressWound/incision: Location:sternal Site condition: dressing clean dry, dressing intactHEENT: anicteric, mucosal membranes moistNeck: full range of motion, non-tenderCardiovascular: BP/pulses equal bilat., regular rate rhythmRespiratory: aerating well, symmetric expansion, no distressAbdomen: soft, non-tender, no distentionGenitourinary: no foleyExtremities: dry, moves allMusculoskeletal: full range of motionNeuro/TEAROOM HOST/HOSTESS: alert, oriented X 3Skin: dry, intact Current MedicationsMedications:Active Meds + DC'd Last 24 HrsAspirin (ASPIRIN) 81 MG DAILY PO Budesonide (PULMICORT RESPULES) 0.5 MG RTBID INH Formoterol Fumarate (PERFOROMIST) 20 MCG RTBID NEB Metoprolol Tartrate (LOPRESSOR) 25 MG Q12HR PO Albumin Human (ALBUMINAR 5% 12.5GM/250ML) 250 ML ONCE ONE IV (DC) Ipratropium [place] (ATROVENT) 500 MCG RTQ6H INH Ipratropium [place] (ATROVENT) 500 MCG Q2H PRN PRN INH Cyanocobalamin (Vitamin B-12 500 mcg tab) 500 MCG DAILY PO Ferrous Sulfate (FERROUS SULFATE) 325 MG DAILY PO Sodium Chloride (SODIUM CHLORIDE 0.9%) 250 ML ONCE ONE IV Bisacodyl (DULCOLAX) 10 MG ONCE PRN RECTAL Dopamine HCl/Dextrose (DOPamine 400MG/D5W 250ML) 250 ML ASDIR IV Tramadol HCl (ULTRAM) 50 MG Q4H PRN PRN PO Clopidogrel Bisulfate (Plavix) 75 MG DAILY PO Polyethylene Glycol (MIRALAX) 17 GM DAILY PO Amiodarone HCl (AMIODARONE HCL) 450 MG ASDIR IV (CKD) Dextrose/Water (D5%W NON-DEHP) 250 MLPantoprazole (PROTONIX) 40 MG DAILY@0600 PO Docusate Sodium (COLACE) 100 MG BID PO Metoprolol Tartrate (LOPRESSOR) 12.5 MG Q12HR PO (DC) Mupirocin (BACTROBAN 2% 22 GM OINTMENT) 1 APPLIC BID NASAL Sennosides (Senna Lax 8.6 MG TABLET) 17.2 MG BEDTIME PO Aspirin (ASPIRIN) 81 MG DAILY PO (DC) Amiodarone HCl (CORDARONE) 200 MG TID PO Acetaminophen (TYLENOL) 650 MG Q4H PRN PRN PO Acetaminophen (TYLENOL) 650 MG Q4H PRN PRN RECTAL Calcium Chloride (CALCIUM CHLORIDE) 1 GM ASDIR PRN IV Dextrose/Water (DEXTROSE 10% IN WATER) 125 ML ASDIR PRN IV (CKD) Dextrose/Water (DEXTROSE 10% IN WATER) 250 ML ASDIR PRN IV (CKD) Epinephrine (ADRENALIN CHLORIDE) 4 MG ASDIR IV Dextrose/Water (DEXTROSE 5% WATER) 246 MLGlucagon (GLUCAGON) 1 MG ASDIR PRN IM Insulin Human Regular (HumuLIN R) 100 UNIT ASDIR IV (CKD) Sodium Chloride (SODIUM CHLORIDE 0.9%) 99 MLMagnesium Sulfate (MAGNESIUM SULFATE 4GM/SWFI 100ML) 100 ML ASDIR PRN IV Magnesium Sulfate (MAGNESIUM SULFATE 2GM/SWFI 50ML) 50 ML ASDIR PRN IV Magnesium Sulfate/Dextrose (MAGNESIUM SULFATE 1GM/D5W 100ML) 100 ML ASDIR PRN IV Nitroglycerin/Dextrose (NITROGLYCERIN 50,000MCG/D5W 250ML) 250 ML ASDIR IV Norepinephrine Bitartrate (NOREPINEPHRINE 8 MG/NS 250 ML) 250 ML TITRATE IV Ondansetron HCl (ZOFRAN) 4 MG Q6H PRN PRN IV Potassium Chloride (KCL 20MEQ/SWFI 100ML) 100 ML ASDIR PRN IV Sodium Bicarbonate (SODIUM BICARBONATE) 50 MEQ ASDIR PRN IV Sodium Chloride (SODIUM CHLORIDE 0.9%) 1,000 ML .Q20H IV Sodium Chloride (SODIUM CHLORIDE 0.9%) 250 ML Q24H IV Melatonin (Melatonin) 6 MG BEDTIME PRN PRN PO Hydralazine HCl (APRESOLINE) 10 MG Q6H PRN PRN IV ResultsFindings/Data:Laboratory Tests 08/14 08/13 0342 1952 Chemistry Sodium (134 - 147 mEq/L) 137 Potassium (3.4 - 5.0 mEq/L) 4.1 Chloride (100 - 108 mEq/L) 104 Carbon Dioxide (21 - 33 mEq/l) 27 Anion Gap (0 - 20) 10 BUN (7 - 18 mg/dL) 33 H Creatinine (0.6 - 1.3 mg/dL) 2.0 H Glomerular Filtr Rate (70 - 80) 33.1 L Glucose (70 - 110 mg/dL) 107 POC Glucose (70 - 110 MG/DL) 93 Calcium (8.0 - 10.5 mg/dL) 8.7 Magnesium (1.80 - 2.40 mg/dL) 2.49 H Laboratory Tests 08/14 0342 Hematology WBC (4.5 - 11.0 x10 3/uL) 9.4 RBC (4.00 - 5.60 x10 6/uL) 2.85 L Hgb (12.5 - 16.9 g/dL) 8.5 L Hct (37.5 - 50.7 %) 26.1 L MCV (81.0 - 99.0 fL) 91.6 MCH (27.0 - 33.0 pg) 29.8 MCHC (33.0 - 37.0 g/dL) 32.6 L RDW (11.5 - 14.5 %) 13.3 Plt Count (150 - 400 x10 3/uL) 135 L MPV (7.0 - 9.0 fL) 10.8 H Neut % (Auto) (56.0 - 77.0 %) 76.9 Lymph % (Auto) (14.0 - 32.0 %) 11.1 L [place] % (Auto) (4.8 - 9.0 %) 9.7 H Eos % (Auto) (0.3 - 3.7 %) 1.6 Baso % (Auto) (0.0 - 2.0 %) 0.3 Neut # (Auto) (2.0 - 7.6 x10 3/uL) 7.22 Lymph # (Auto) (1.0 - 3.8 x10 3/uL) 1.04 [place] # (Auto) (0.1 - 0.8 x10 3/uL) 0.91 H Eos # (Auto) (0.0 - 0.2 x10 3/uL) 0.15 Baso # (Auto) (0.0 - 0.2 x10 3/uL) 0.03 Abs Immat Gran (auto) (0.00 - 0.03 x10 3/uL) 0.04 H Add Manual Diff NO Immature Gran % (0.0 - 2.0 %) 0.4 Nucleated RBC % (0 - 0 %) 0.0 Nucleated RBCs # (Man) (0.0 - 0.1 x10 3/uL) 0.00 Radiology data:Recent Impressions:ULTRASOUND - US SOFT TISSUE TORSO 08/13 1619 Report Impression - Status: SIGNED Entered: 08/13/20222026 IMPRESSION: Moderate bilateral pleural effusions, with basilar atelectasis.Impression By: [email or web address] - Tomy Marion M.D.RADIOLOGY - XR CHEST 1 V 08/14 0648 Report Impression - Status: SIGNED Entered: 08/14/2022 0809 IMPRESSION: Grossly stable exam. Impression By: [email or web address] - Morteza Allen M.D. Diagnosis, Assessment PlanHospital course to date:82 year old with PMH of hypertension, atrial fibrillation, On Eliquis, Hx of SVT ablation 20 years ago transferred to [facility] with new findings of multi-vessel CAD. He reports he was woken from Sleep on Sunday AM with COmplaints of chest pains. EMS aas called and patient was taken to [facility]. He underwent LHC and found to have multi-vessel CAD by Dr Sanchez. Patient was transferred to [facility] for CABG. Patient lives independently. Daughter is at bedside. Patient reports last dose of Elliquis was Sunday AM. Echo was done at [facility] showing EF 55%, Mild MR, Mild AI, mild LVH. According to his records, he has a hx of Chronic kidney disease with baseline Creatine reportedly 1.5. He does report he has seen a renal MD in the past. Assessment/ Plan1) CAD, Mutli-vessel2) hypertension Continue BBLKR Add Norvasc 5 mg3) Atrial fibrillation. Last dose of Eliquis Sunday AM Obtain EKG4) BPH Continue flomax Workup for CABG underway. Patient was seen and examined by Dr Hurd. Coronary artery bypass surgery was discussed with the patient. The risk of the operation,including the STS score, cristian of blleding, infection, heart attack, stroke, Tracheostomy etc discussed with the patient. CT chest, carotid US, Vein mapping ordered. 3/10/23POD 1 s/p CABG x 5 (NGUYEN-LAD, SVG-Olga Lidia, SVG-OM, SVG-LPLA, SVG-PDA), PVI, ALAA, EVH (RGSV)Patient hemodynamically stable this morning, having episodes of vagal response and BP drops 20 points, SR and sinus arrythmnia noted on monitoring analyst, V epicardial wires on backup rate of 50Amiodarone bolus and dripKeep MS chest tube and monitor outputs, DC LP chest tube after ambulationMinimal oxygen requirements on 2l nasal cannula, encourage deep breathing and I-S useCXR and labs reviewedPain managementGlycemic control on insulin dripCardiac diet, nutritional supplementsBowel regimen, + gasStrict I Os, daily weights, albmuin x 1 given for decreased UOP- monitor hourlySCDs for DVT and PPI for GI prophylaxisPT/OTMonitor patient closely in CVICU, continue supportive carePatient seen with Dr. Hurd, plan of care discussed with ICU team. 08/12 Alert and oriented, up in the chairRemains on amiodarone drip for A-fibWean dopamine offChest x-ray reviewed. Breathing comfortably on room airCreatinine increased to 1.9, urine output 1.5 L last night after the boluses of LasixRepeat renal panel today show creatinine 2.2. Nephrology consulted, hold off onadditional LasixReplace electrolytesEncourage I-S and mobilizationGlycemic controlledKeep in CVICU for close monitoringPatient seen and plan reviewed with Dr Piper, Dr Kirkpatrick, [facility] and multidisciplinaryteam 08/13 Intermittently confused. Continue delirium precautionsMinimal O2 requirements, wean O2 as toleratedAllow for permissive hypertension as urine output improved with higher blood pressureMonitor renal functionEncourage p.o. intake, bowel regimenRemains in A-fib, heart rate fairly controlled. Amiodarone drip at 0.5Discontinue mediastinal chest tubeGlycemic controlKeep in CVICU for close monitoring.Patient seen and plan reviewed with Dr Kirkpatrick, [facility] multidisciplinary teamFamily updated at the bedside 08/14 Patient is alert and oriented, delirium precautionsO2 requirements, encourage I-SPermissive hypertension for better renal perfusionCreatinine trending down, good urine output. Hold Lasix for nowEncourage p.o. intake, bowel regimenElectrolyte replacement as neededKeep in CVICU todayPlan for rehab. Awaiting insurance approvalPatient was seen and plan reviewed with Dr. Kirkpatrick, [facility] and multidisciplinary team Consultants: cardiology, cardiovascular surgery at 1503 at 1026 RPT #:[id number] OF REPORTPRProgress [id number]:04:[id number] for patient [id number]:03:15 [facility] 2022-08-14 10:00:00 [id number] +[id number]:00:00 [facility] HospitalCardiology Progress NoteREPORT#:[id number] REPORT STATUS: SignedDATE:08/14/22 TIME: 1000 PATIENT: BRENNAN AHN UNIT #: [id number]#: [id number] [address] [birth year] AGE: 82 SEX: M ATTEND: Salazar Hurd [facility] AUTHOR: Catrina Shetty AGACNP * ALL edits or amendments must be made on the electronic/computer document * SubjectivePatient reports:No: complaints. Objective GeneralVS/I O:24 hour I O ending at 0700: 08/14 0700 08/13 1900 Intake Total 200 1203.00 Output Total 1850 1040 Balance -1650 163.00 Intake, IV 363.00 Intake, Oral 200 840 Output, Chest 50 90 Tube Drainage Output, Urine 1800 950 Vital Signs: Date Time Temp Pulse Resp B/P B/P Pulse O2 O2 Flow FiO2 Mean Ox Delivery Rate 08/14 0801 79 25 152/86 106 97 08/14 0800 36.8 03/13 0800 Nasal 2 cannula 03/ 0731 74 15 163/73 105 100 03/13 0444 68 14 100 03/13 0415 69 15 100 03/13 0353 100 Nasal 2 cannula 03/13 0345 76 14 100 03/13 0315 71 18 99 03/13 0245 69 24 99 03/13 0215 73 26 98 03/13 0200 67 14 100 03/13 0130 75 23 99 03/13 0115 84 30 91 03/13 0100 70 14 152/72 103 100 03/13 0045 69 16 100 03/13 0015 68 16 97 03/12 2355 68 16 35 03/12 2355 100 BiPAP 35 03/12 2345 70 15 98 03/12 2315 74 14 100 03/12 2245 74 17 97 03/12 2215 83 19 100 03/12 2145 100 29 94 03/12 2115 90 26 100 03/12 2115 99 Nasal 2 cannula 08/136 82 28 156/74 106 98 03/2029 80 22 141/67 96 100 /2014 80 26 151/73 105 99 03/12 1999 36.5 031999 Nasal 2 cannula 08/14 1999 94 32 147/73 104 98 03/12 1900 86 28 149/72 103 95 03/12 1846 89 31 148/73 104 97 03/12 1815 80 25 182/77 111 100 03/12 1801 89 34 158/89 114 95 03/12 1751 92 30 120/93 103 94 03/12 1700 82 30 151/75 105 98 03/12 1645 82 28 160/74 106 96 03/12 1630 80 17 156/72 104 98 03/12 1615 80 16 154/72 104 97 03/12 1600 37.1 03/12 1600 79 22 143/94 112 98 03/12 1546 87 28 140/104 117 95 03/12 1530 78 30 135/61 88 97 03/12 1515 83 28 145/67 95 96 03/12 1500 78 35 157/80 112 94 03/12 1445 76 28 138/65 93 95 03/12 1430 77 33 149/67 96 99 03/12 1416 83 26 126/95 108 92 03/12 1400 78 23 129/60 86 98 03/12 1345 82 39 131/64 92 03/12 1340 98 41 107/58 77 82 03/12 1338 76 32 138/63 91 82 08/13 1330 79 32 145/70 100 84 08/13 1315 94 37 124/63 85 83 08/13 1246 78 31 127/59 85 83 08/13 1230 81 36 122/66 89 82 08/13 1215 76 27 129/62 89 86 08/13 1200 36.9 08/13 1200 72 20 123/66 84 90 08/13 1145 73 33 136/62 89 86 08/13 1130 70 21 128/60 87 95 08/13 1115 76 32 118/58 83 95 08/13 1101 85 32 124/67 89 67 08/13 1053 81 34 102/61 76 96 PATIENT WEIGHT: Weight (lb): 219Weight (oz): 12.81Weight (kg): 99.700 Medications:Active Meds + DC'd Last 24 HrsAspirin (ASPIRIN) 81 MG DAILY PO Budesonide (PULMICORT RESPULES) 0.5 MG RTBID INH Formoterol Fumarate (PERFOROMIST) 20 MCG RTBID NEB Metoprolol Tartrate (LOPRESSOR) 25 MG Q12HR PO Albumin Human (ALBUMINAR 5% 12.5GM/250ML) 250 ML ONCE ONE IV (DC) Ipratropium [place] (ATROVENT) 500 MCG RTQ6H INH Ipratropium [place] (ATROVENT) 500 MCG Q2H PRN PRN INH Cyanocobalamin (Vitamin B-12 500 mcg tab) 500 MCG DAILY PO Ferrous Sulfate (FERROUS SULFATE) 325 MG DAILY PO Sodium Chloride (SODIUM CHLORIDE 0.9%) 250 ML ONCE ONE IV Bisacodyl (DULCOLAX) 10 MG ONCE PRN RECTAL Ipratropium [place] (ATROVENT) 500 MCG RTQ4H INH (DC) Dopamine HCl/Dextrose (DOPamine 400MG/D5W 250ML) 250 ML ASDIR IV Tramadol HCl (ULTRAM) 50 MG Q4H PRN PRN PO Clopidogrel Bisulfate (Plavix) 75 MG DAILY PO Polyethylene Glycol (MIRALAX) 17 GM DAILY PO Amiodarone HCl (AMIODARONE HCL) 450 MG ASDIR IV (CKD) Dextrose/Water (D5%W NON-DEHP) 250 MLPantoprazole (PROTONIX) 40 MG DAILY@0600 PO Docusate Sodium (COLACE) 100 MG BID PO Metoprolol Tartrate (LOPRESSOR) 12.5 MG Q12HR PO (DC) Mupirocin (BACTROBAN 2% 22 GM OINTMENT) 1 APPLIC BID NASAL Sennosides (Senna Lax 8.6 MG TABLET) 17.2 MG BEDTIME PO Aspirin (ASPIRIN) 81 MG DAILY PO (DC) Amiodarone HCl (CORDARONE) 200 MG TID PO Acetaminophen (TYLENOL) 650 MG Q4H PRN PRN PO Acetaminophen (TYLENOL) 650 MG Q4H PRN PRN RECTAL Calcium Chloride (CALCIUM CHLORIDE) 1 GM ASDIR PRN IV Dextrose/Water (DEXTROSE 10% IN WATER) 125 ML ASDIR PRN IV (CKD) Dextrose/Water (DEXTROSE 10% IN WATER) 250 ML ASDIR PRN IV (CKD) Epinephrine (ADRENALIN CHLORIDE) 4 MG ASDIR IV Dextrose/Water (DEXTROSE 5% WATER) 246 MLGlucagon (GLUCAGON) 1 MG ASDIR PRN IM Insulin Human Regular (HumuLIN R) 100 UNIT ASDIR IV (CKD) Sodium Chloride (SODIUM CHLORIDE 0.9%) 99 MLMagnesium Sulfate (MAGNESIUM SULFATE 4GM/SWFI 100ML) 100 ML ASDIR PRN IV Magnesium Sulfate (MAGNESIUM SULFATE 2GM/SWFI 50ML) 50 ML ASDIR PRN IV Magnesium Sulfate/Dextrose (MAGNESIUM SULFATE 1GM/D5W 100ML) 100 ML ASDIR PRN IV Nitroglycerin/Dextrose (NITROGLYCERIN 50,000MCG/D5W 250ML) 250 ML ASDIR IV Norepinephrine Bitartrate (NOREPINEPHRINE 8 MG/NS 250 ML) 250 ML TITRATE IV Ondansetron HCl (ZOFRAN) 4 MG Q6H PRN PRN IV Potassium Chloride (KCL 20MEQ/SWFI 100ML) 100 ML ASDIR PRN IV Sodium Bicarbonate (SODIUM BICARBONATE) 50 MEQ ASDIR PRN IV Sodium Chloride (SODIUM CHLORIDE 0.9%) 1,000 ML .Q20H IV Sodium Chloride (SODIUM CHLORIDE 0.9%) 250 ML Q24H IV Melatonin (Melatonin) 6 MG BEDTIME PRN PRN PO Hydralazine HCl (APRESOLINE) 10 MG Q6H PRN PRN IV Physical ExamGeneral appearance: chronically ill appearing, alert, awake, no acute distress, pleasantHead/Eyes: atraumatic, PERRLCardiovascular: CV assessment: irregularly irregularRespiratory: decreased breath sounds, on oxygen, no distressAbdomen: soft, non-tender, normal bowel sounds, no distentionGenitourinary: no flank pain, no urinary catheterLower extremity: LE assessment: edema, normal capillary refill, normal temperatureMusculoskeletal: normal inspectionNeuro/TEAROOM HOST/HOSTESS: alert, oriented X 3Skin: poor skin turgor, bruise/ecchymosis Right forearmPsychiatry: normal affect, normal mood ResultsFindings/Data:Laboratory Tests 08/14 1952 Chemistry Sodium (134 - 147 mEq/L) 137 Potassium (3.4 - 5.0 mEq/L) 4.1 Chloride (100 - 108 mEq/L) 104 Carbon Dioxide (21 - 33 mEq/l) 27 Anion Gap (0 - 20) 10 BUN (7 - 18 mg/dL) 33 H Creatinine (0.6 - 1.3 mg/dL) 2.0 H Glomerular Filtr Rate (70 - 80) 33.1 L Glucose (70 - 110 mg/dL) 107 POC Glucose (70 - 110 MG/DL) 93 Calcium (8.0 - 10.5 mg/dL) 8.7 Magnesium (1.80 - 2.40 mg/dL) 2.49 H Laboratory Tests 08/14 0342 Hematology WBC (4.5 - 11.0 x10 3/uL) 9.4 RBC (4.00 - 5.60 x10 6/uL) 2.85 L Hgb (12.5 - 16.9 g/dL) 8.5 L Hct (37.5 - 50.7 %) 26.1 L MCV (81.0 - 99.0 fL) 91.6 MCH (27.0 - 33.0 pg) 29.8 MCHC (33.0 - 37.0 g/dL) 32.6 L RDW (11.5 - 14.5 %) 13.3 Plt Count (150 - 400 x10 3/uL) 135 L MPV (7.0 - 9.0 fL) 10.8 H Neut % (Auto) (56.0 - 77.0 %) 76.9 Lymph % (Auto) (14.0 - 32.0 %) 11.1 L [place] % (Auto) (4.8 - 9.0 %) 9.7 H Eos % (Auto) (0.3 - 3.7 %) 1.6 Baso % (Auto) (0.0 - 2.0 %) 0.3 Neut # (Auto) (2.0 - 7.6 x10 3/uL) 7.22 Lymph # (Auto) (1.0 - 3.8 x10 3/uL) 1.04 [place] # (Auto) (0.1 - 0.8 x10 3/uL) 0.91 H Eos # (Auto) (0.0 - 0.2 x10 3/uL) 0.15 Baso # (Auto) (0.0 - 0.2 x10 3/uL) 0.03 Abs Immat Gran (auto) (0.00 - 0.03 x10 3/uL) 0.04 H Add Manual Diff NO Immature Gran % (0.0 - 2.0 %) 0.4 Nucleated RBC % (0 - 0 %) 0.0 Nucleated RBCs # (Man) (0.0 - 0.1 x10 3/uL) 0.00 Laboratory Tests 08/14 0342 Chemistry Magnesium (1.80 - 2.40 mg/dL) 2.49 H Radiology data:Recent Impressions:ULTRASOUND - US SOFT TISSUE TORSO 08/13 1619 Report Impression - Status: SIGNED Entered: 08/13/20222026 IMPRESSION: Moderate bilateral pleural effusions, with basilar atelectasis.Impression By: [email or web address] - Tomy Marion M.D.RADIOLOGY - XR CHEST 1 V 08/14 0648 Report Impression - Status: SIGNED Entered: 08/14/2022 0809 IMPRESSION: Grossly stable exam. Impression By: [email or web address] - Morteza Allen M.D. Results: labs reviewed, vital signs reviewed, rhythm personally rev'dTelemetry Interpretation:afib with controlled rate Diagnosis, Assessment PlanPlan discussed with: patient, son, nurse Free Text DxA P NotesFree Text DxA P Notes:1. CAD s/p CABG x 5 (NGUYEN-LAD, SVG-Olga Lidia, SVG-OM, SVG-LPLA, SVG-PDA) continue asa, bb, plavixecho 08/12- LVEF 50-54%, left pleural effusionintolerant of statin, will consider nonstatin med such as Repatha or Nexletol outpatientpost-op per CTS 2. A-fib: Paroxysmal- rate controlleds/p PVI and ARISTEO amputationon amiodarone and BB 3. HTNBP on upward trendcontinue metoprololmonitor 4. AKInegative fluid balanceper Nephrology continue supportive careDoing good post-op at 1358 at 1402 RPT #:[id number] OF REPORTPRProgress [id number]:00:00G.[id number] for patient [id number]:59:11 [facility] 2022-08-14 07:23:00 [id number]+VPQM7lhnbf+4eSE+ [id number]:23:00 [facility] ([facility])Rehab Progress NoteREPORT#:[id number] REPORT STATUS: SignedDATE:08/14/22 TIME: 722 PATIENT: BRENNAN AHN UNIT #: [id number]#: [id number] [address] [birth year] AGE: 82 SEX: M ATTEND: Salazar Hurd MDADM AUTHOR: Florentino Jimenez * ALL edits or amendments must be made on the electronic/computer document * SubjectiveChief complaint:Rehab follow-upSeen in CVICUDoing well. Sitting up in chairAll drips off and lines outNADDenies MORA/N/V/D/CP14 systems reviewed and neg. except that above. Objective GeneralVS:Vital Signs: Date Time Temp Pulse Resp B/P B/P Pulse O2 O2 Flow FiO2 Mean Ox Delivery Rate 08/14 0444 68 14 100 08/14 0415 69 15 100 08/14 0353 100 Nasal 2 cannula 03/13 0345 76 14 100 03/13 0315 71 18 99 03/13 0245 69 24 99 03/13 0215 73 26 98 03/13 0200 67 14 100 03/13 0130 75 23 99 03/13 0115 84 30 91 03/13 0100 70 14 152/72 103 100 03/13 0045 69 16 100 03/13 0015 68 16 97 03/12 2355 68 16 35 03/12 2355 100 BiPAP 35 03/12 2345 70 15 98 03/12 2315 74 14 100 03/12 2245 74 17 97 03/12 2215 83 19 100 03/12 2145 100 29 94 03/12 2115 90 26 100 03/12 2115 99 Nasal 2 cannula /2055 82 28 156/74 106 98 03/12 2030 80 22 141/67 96 100 03/12 2014 80 26 151/73 105 99 03/12 1999 97.7 03/12 1999 Nasal 2 cannula /1999 94 32 147/73 104 98 03/12 1900 86 28 149/72 103 95 03/12 1846 89 31 148/73 104 97 03/12 1815 80 25 182/77 111 100 03/12 1801 89 34 158/89 114 95 03/12 1751 92 30 120/93 103 94 03/12 1700 82 30 151/75 105 98 03/12 1645 82 28 160/74 106 96 03/12 1630 80 17 156/72 104 98 03/12 1615 80 16 154/72 104 97 03/12 1600 98.7 03/12 1600 79 22 143/94 112 98 03/12 1546 87 28 140/104 117 95 03/12 1530 78 30 135/61 88 97 03/12 1515 83 28 145/67 95 96 03/12 1500 78 35 157/80 112 94 03/12 1445 76 28 138/65 93 95 03/12 1430 77 33 149/67 96 99 03/12 1416 83 26 126/95 108 92 03/12 1400 78 23 129/60 86 98 03/12 1345 82 39 131/64 92 03/12 1340 98 41 107/58 77 82 03/12 1338 76 32 138/63 91 82 03/12 1330 79 32 145/70 100 84 03/12 1315 94 37 124/63 85 83 03/12 1246 78 31 127/59 85 83 03/12 1230 81 36 122/66 89 82 03/ 1215 76 27 129/62 89 86 03/ 1200 98.4 03 1200 72 20 123/66 84 90 03/ 1145 73 33 136/62 89 86 03/ 1130 70 21 128/60 87 95 03/ 1115 76 32 118/58 83 95 03/ 1101 85 32 124/67 89 67 03/ 1053 81 34 102/61 76 96 03/ 0946 91 36 145/88 105 100 03/ 0931 104 28 148/67 96 88 / 0915 82 33 179/90 119 87 03/ 0900 82 23 181/84 120 97 03/ 0845 76 32 178/83 119 98 03/ 0830 84 29 151/72 103 98 03/ 0815 81 38 173/79 113 98 03/ 0801 82 38 144/67 96 92 03/ 0800 98.4 03/ 0800 Nasal 2 cannula / 0752 96 Room air 08/13 0751 91 16 174/98 103 99 / 0730 84 37 149/68 98 97 PATIENT WEIGHT: Weight (lb): 219Weight (oz): 12.81Weight (kg): 99.700 Medications:Active Meds + DC'd Last 24 HrsAspirin (ASPIRIN) 81 MG DAILY PO Budesonide (PULMICORT RESPULES) 0.5 MG RTBID INH Formoterol Fumarate (PERFOROMIST) 20 MCG RTBID NEB Metoprolol Tartrate (LOPRESSOR) 25 MG Q12HR PO Albumin Human (ALBUMINAR 5% 12.5GM/250ML) 250 ML ONCE ONE IV (DC) Ipratropium [place] (ATROVENT) 500 MCG RTQ6H INH Ipratropium [place] (ATROVENT) 500 MCG Q2H PRN PRN INH Cyanocobalamin (Vitamin B-12 500 mcg tab) 500 MCG DAILY PO Ferrous Sulfate (FERROUS SULFATE) 325 MG DAILY PO Sodium Chloride (SODIUM CHLORIDE 0.9%) 250 ML ONCE ONE IV Bisacodyl (DULCOLAX) 10 MG ONCE PRN RECTAL Ipratropium [place] (ATROVENT) 500 MCG RTQ4H INH (DC) Dopamine HCl/Dextrose (DOPamine 400MG/D5W 250ML) 250 ML ASDIR IV Tramadol HCl (ULTRAM) 50 MG Q4H PRN PRN PO Clopidogrel Bisulfate (Plavix) 75 MG DAILY PO Polyethylene Glycol (MIRALAX) 17 GM DAILY PO Amiodarone HCl (AMIODARONE HCL) 450 MG ASDIR IV (CKD) Dextrose/Water (D5%W NON-DEHP) 250 MLPantoprazole (PROTONIX) 40 MG DAILY@0600 PO Docusate Sodium (COLACE) 100 MG BID PO Metoprolol Tartrate (LOPRESSOR) 12.5 MG Q12HR PO (DC) Mupirocin (BACTROBAN 2% 22 GM OINTMENT) 1 APPLIC BID NASAL Sennosides (Senna Lax 8.6 MG TABLET) 17.2 MG BEDTIME PO Aspirin (ASPIRIN) 81 MG DAILY PO (DC) Amiodarone HCl (CORDARONE) 200 MG TID PO Acetaminophen (TYLENOL) 650 MG Q4H PRN PRN PO Acetaminophen (TYLENOL) 650 MG Q4H PRN PRN RECTAL Calcium Chloride (CALCIUM CHLORIDE) 1 GM ASDIR PRN IV Dextrose/Water (DEXTROSE 10% IN WATER) 125 ML ASDIR PRN IV (CKD) Dextrose/Water (DEXTROSE 10% IN WATER) 250 ML ASDIR PRN IV (CKD) Epinephrine (ADRENALIN CHLORIDE) 4 MG ASDIR IV Dextrose/Water (DEXTROSE 5% WATER) 246 MLGlucagon (GLUCAGON) 1 MG ASDIR PRN IM Insulin Human Regular (HumuLIN R) 100 UNIT ASDIR IV (CKD) Sodium Chloride (SODIUM CHLORIDE 0.9%) 99 MLMagnesium Sulfate (MAGNESIUM SULFATE 4GM/SWFI 100ML) 100 ML ASDIR PRN IV Magnesium Sulfate (MAGNESIUM SULFATE 2GM/SWFI 50ML) 50 ML ASDIR PRN IV Magnesium Sulfate/Dextrose (MAGNESIUM SULFATE 1GM/D5W 100ML) 100 ML ASDIR PRN IV Nitroglycerin/Dextrose (NITROGLYCERIN 50,000MCG/D5W 250ML) 250 ML ASDIR IV Norepinephrine Bitartrate (NOREPINEPHRINE 8 MG/NS 250 ML) 250 ML TITRATE IV Ondansetron HCl (ZOFRAN) 4 MG Q6H PRN PRN IV Potassium Chloride (KCL 20MEQ/SWFI 100ML) 100 ML ASDIR PRN IV Sodium Bicarbonate (SODIUM BICARBONATE) 50 MEQ ASDIR PRN IV Sodium Chloride (SODIUM CHLORIDE 0.9%) 1,000 ML .Q20H IV Sodium Chloride (SODIUM CHLORIDE 0.9%) 250 ML Q24H IV Melatonin (Melatonin) 6 MG BEDTIME PRN PRN PO Hydralazine HCl (APRESOLINE) 10 MG Q6H PRN PRN IV Functional ProgressFunctional progress: Trunk control: Moderate Assistance Sit to Stand: Maximal Assistance Static Sitting: Minimal Assistance Dynamic Sitting: Minimal Assistance Static Standing: Maximal Assistance Dynamic Standing: Maximal Assistance Functional Exercises: SIT TO STAND MARCHING IN PLACE Durable Medical Equipment Currently Utilized: Hospital Bed RW Effects of Treatment: Balance Improved Circulation improved Function Improved Post TX Precautions: In Chair Call Light in Reach Family/Sitter at Bedside Nursing Notified O2 on Review Plan of Care: Yes Functional Mob.Cmt: PATIENT IN BEDSIDE CHAIR UP ON ARRIVAL AND AGREEABLE TO THERAPY. PATIENT MAX A FOR SIT TO STAND WITH WC HANDLES. PATIENT NOTED WITH SIGNIFICANT FORWARD FLEXED POSTURE. VC/TC FOR UPRIGHT STANDING BUT PATIENT UNABLE TO ABTAIN. PATIENT TOLERATED STANDING MARCHING X 5 MIN WITH2 PERSON ASSIST FOR SAFETY. PATIENT NOTED WITH INTERMITTED BUCKLING OF LEFT LE. UNABLE TO AMBULATED AT THIS TIME. PATIENT VITALS TAKIN AFTER STANDING MARCHES AND NOTED AT 85/49. PATIENT REPORTS MILD DIZZNESS AND PLACED BACK IN BEDSIDE CHAIR. PATIENT LEFT WITH RN IN ROOM AND FAMILY AT BEDSIDE. Physical ExamGeneral appearance: alert, awakePsych: alert, oriented x 3HEENT: anicteric, sclera clearNeck: supple, no JVDCardiovascular: S1/S2, no murmurRespiratory: aerating well, clear bilaterallyAbdomen: bowel sounds present, non-distended, softSkin: intact, no rashMusculoskeletal - general: Musculoskeletal - general: normal muscle mass, normal tone, hips 3+, decereased shoulder AROM due to sternal precautionsNeuro/TEAROOM HOST/HOSTESS: alert, oriented X 3, CNII-XII intact ResultsFindings/Data:Laboratory Tests: 08/14 08/13 0342 1952 Chemistry Sodium (134 - 147 mEq/L) 137 Potassium (3.4 - 5.0 mEq/L) 4.1 Chloride (100 - 108 mEq/L) 104 Carbon Dioxide (21 - 33 mEq/l) 27 Anion Gap (0 - 20) 10 BUN (7 - 18 mg/dL) 33 H Creatinine (0.6 - 1.3 mg/dL) 2.0 H Glomerular Filtr Rate (70 - 80) 33.1 L Glucose (70 - 110 mg/dL) 107 POC Glucose (70 - 110 MG/DL) 93 Calcium (8.0 - 10.5 mg/dL) 8.7 Magnesium (1.80 - 2.40 mg/dL) 2.49 H Hematology WBC (4.5 - 11.0 x10 3/uL) 9.4 RBC (4.00 - 5.60 x10 6/uL) 2.85 L Hgb (12.5 - 16.9 g/dL) 8.5 L Hct (37.5 - 50.7 %) 26.1 L MCV (81.0 - 99.0 fL) 91.6 MCH (27.0 - 33.0 pg) 29.8 MCHC (33.0 - 37.0 g/dL) 32.6 L RDW (11.5 - 14.5 %) 13.3 Plt Count (150 - 400 x10 3/uL) 135 L MPV (7.0 - 9.0 fL) 10.8 H Neut % (Auto) (56.0 - 77.0 %) 76.9 Lymph % (Auto) (14.0 - 32.0 %) 11.1 L [place] % (Auto) (4.8 - 9.0 %) 9.7 H Eos % (Auto) (0.3 - 3.7 %) 1.6 Baso % (Auto) (0.0 - 2.0 %) 0.3 Neut # (Auto) (2.0 - 7.6 x10 3/uL) 7.22 Lymph # (Auto) (1.0 - 3.8 x10 3/uL) 1.04 [place] # (Auto) (0.1 - 0.8 x10 3/uL) 0.91 H Eos # (Auto) (0.0 - 0.2 x10 3/uL) 0.15 Baso # (Auto) (0.0 - 0.2 x10 3/uL) 0.03 Abs Immat Gran (auto) (0.00 - 0.03 x10 3/uL) 0.04 H Add Manual Diff NO Immature Gran % (0.0 - 2.0 %) 0.4 Nucleated RBC % (0 - 0 %) 0.0 Nucleated RBCs # (Man) (0.0 - 0.1 x10 3/uL) 0.00 Radiology data:Recent Impressions:ULTRASOUND - US SOFT TISSUE TORSO 08/13 1619 Report Impression - Status: SIGNED Entered: 08/13/20222026 IMPRESSION: Moderate bilateral pleural effusions, with basilar atelectasis.Impression By: Kristin Marion M.D. Treatment Prophylaxis Treatment ProphylaxisDrain(s)/tube(s): Drain(s)/tube(s): chest, urinary catheter Diagnosis, Assessment PlanFree Text A P:Multivessel CADStatus post CABG i2Qsbjgp weakness Unsteady gaitImpaired ADLs, mobilityAlzheimer's dementiaPostoperative anemiaCKDHistory of A-fibHTNModerate bilateral pleural effusions Plan:Continue PT/OTOut of bed to chairWork on strength, bed mobility, transfers, gaitMonitor for left knee bucklingIncrease enduranceFall precautionsMonitor p.o. intake and nutritionStrict decubitus precautionsMonitor labs closelyMonitor telemetry. Advance therapies as tolerated.. Excellent candidateIRF consulted. [employer] Medicare. Will require insurance approval Total time was 33 minutes > 50% with patient performing physical examination, discussing plan of care, goals, therapies, progress, medications, labs. All questions answeredConsultants: cardiology, cardiovascular surgeryRehab attestation:. at 1312 RPT #:[id number] OF REPORTPRProgress [id number]:23:00G.[id number] for patient [id number]:13:03 [facility] 2022-08-13 23:02:00 [id number] [id number]:02:00 [facility] HospitalInternal Medicine Prog. NoteREPORT#:[id number] REPORT STATUS: SignedDATE:08/13/22 TIME: 2302 PATIENT: BRENNAN AHN UNIT #: [id number]#: [id number] [address] AGE: 82 SEX: M ATTEND: Salazar Hurd [facility] AUTHOR: Devin Fox DO * ALL edits or amendments must be made on the electronic/computer document * SubjectiveChief complaint:pt c/o mild low back pain sitting in chair Review of SystemsAll systems rev neg: except as marked Objective GeneralVS/I O:Vital SignsDate Temp Pulse Resp B/P B/P Mean Pulse Ox FmF798/-08/13 98.0-98.7 70-104 16-43 102-182/58-104 76-120 67-100 35 Last Documented: Result Date Time Pulse Ox 99 08/13 2114 O2 Delivery Nasal cannula 08/13 2114 O2 Flow Rate 2 08/13 2115 B/P 149/72 08/13 1900 B/P Mean 103 08/13 1900 Pulse 86 08/13 1900 Resp 28 08/13 1900 Temp 98.7 08/13 1600 FiO2 35 08/13 0341 24 hour I O ending at 0700: 08/13 0700 08/12 1900 Intake Total 300.00 984.70 Output Total 990 790 Balance -690.00 194.70 Intake, IV 200.00 264.70 Intake, Oral 100 720 Output, Chest 30 300 Tube Drainage Output, Urine 960 490 Patient 99.7 kg Weight Weight Bed scale Measurement Method PATIENT WEIGHT: Weight (lb): 219Weight (oz): 12.81Weight (kg): 99.700 Medications:Active Meds + DC'd Last 24 HrsAspirin (ASPIRIN) 81 MG DAILY PO Budesonide (PULMICORT RESPULES) 0.5 MG RTBID INH Formoterol Fumarate (PERFOROMIST) 20 MCG RTBID NEB Metoprolol Tartrate (LOPRESSOR) 25 MG Q12HR PO Albumin Human (ALBUMINAR 5% 12.5GM/250ML) 250 ML ONCE ONE IV (DC) Ipratropium [place] (ATROVENT) 500 MCG RTQ6H INH Ipratropium [place] (ATROVENT) 500 MCG Q2H PRN PRN INH Cyanocobalamin (Vitamin B-12 500 mcg tab) 500 MCG DAILY PO Ferrous Sulfate (FERROUS SULFATE) 325 MG DAILY PO Sodium Chloride (SODIUM CHLORIDE 0.9%) 250 ML ONCE ONE IV Bisacodyl (DULCOLAX) 10 MG ONCE PRN RECTAL Ipratropium [place] (ATROVENT) 500 MCG RTQ4H INH (DC) Dopamine HCl/Dextrose (DOPamine 400MG/D5W 250ML) 250 ML ASDIR IV Tramadol HCl (ULTRAM) 50 MG Q4H PRN PRN PO Clopidogrel Bisulfate (Plavix) 75 MG DAILY PO Polyethylene Glycol (MIRALAX) 17 GM DAILY PO Amiodarone HCl (AMIODARONE HCL) 450 MG ASDIR IV (CKD) Dextrose/Water (D5%W NON-DEHP) 250 MLPantoprazole (PROTONIX) 40 MG DAILY@0600 PO Docusate Sodium (COLACE) 100 MG BID PO Metoprolol Tartrate (LOPRESSOR) 12.5 MG Q12HR PO (DC) Mupirocin (BACTROBAN 2% 22 GM OINTMENT) 1 APPLIC BID NASAL Sennosides (Senna Lax 8.6 MG TABLET) 17.2 MG BEDTIME PO Aspirin (ASPIRIN) 81 MG DAILY PO (DC) Amiodarone HCl (CORDARONE) 200 MG TID PO Acetaminophen (TYLENOL) 650 MG Q4H PRN PRN PO Acetaminophen (TYLENOL) 650 MG Q4H PRN PRN RECTAL Calcium Chloride (CALCIUM CHLORIDE) 1 GM ASDIR PRN IV Dextrose/Water (DEXTROSE 10% IN WATER) 125 ML ASDIR PRN IV (CKD) Dextrose/Water (DEXTROSE 10% IN WATER) 250 ML ASDIR PRN IV (CKD) Epinephrine (ADRENALIN CHLORIDE) 4 MG ASDIR IV Dextrose/Water (DEXTROSE 5% WATER) 246 MLGlucagon (GLUCAGON) 1 MG ASDIR PRN IM Insulin Human Regular (HumuLIN R) 100 UNIT ASDIR IV (CKD) Sodium Chloride (SODIUM CHLORIDE 0.9%) 99 MLMagnesium Sulfate (MAGNESIUM SULFATE 4GM/SWFI 100ML) 100 ML ASDIR PRN IV Magnesium Sulfate (MAGNESIUM SULFATE 2GM/SWFI 50ML) 50 ML ASDIR PRN IV Magnesium Sulfate/Dextrose (MAGNESIUM SULFATE 1GM/D5W 100ML) 100 ML ASDIR PRN IV Nitroglycerin/Dextrose (NITROGLYCERIN 50,000MCG/D5W 250ML) 250 ML ASDIR IV Norepinephrine Bitartrate (NOREPINEPHRINE 8 MG/NS 250 ML) 250 ML TITRATE IV Ondansetron HCl (ZOFRAN) 4 MG Q6H PRN PRN IV Potassium Chloride (KCL 20MEQ/SWFI 100ML) 100 ML ASDIR PRN IV Sodium Bicarbonate (SODIUM BICARBONATE) 50 MEQ ASDIR PRN IV Sodium Chloride (SODIUM CHLORIDE 0.9%) 1,000 ML .Q20H IV Sodium Chloride (SODIUM CHLORIDE 0.9%) 250 ML Q24H IV Melatonin (Melatonin) 6 MG BEDTIME PRN PRN PO Hydralazine HCl (APRESOLINE) 10 MG Q6H PRN PRN IV Physical ExamGeneral appearance: alert, awake, orientedHead/Eyes: EOMI, PERRLANeck: non-tender, no JVDCardiovascular: irregular rhythm, normal heart soundsRespiratory: aerating well, clear to auscultationAbdomen: non-tender, softExtremities: Extremities: edema, moves allNeuro/TEAROOM HOST/HOSTESS: alert, oriented x 3, CNII-XII intact ResultsFindings/Data:Laboratory Tests 08/13/22 0400:[Embedded Image Not Available]Laboratory Tests 08/13 0400 Chemistry Sodium (134 - 147 mEq/L) 135 Potassium (3.4 - 5.0 mEq/L) 3.9 Chloride (100 - 108 mEq/L) 102 Carbon Dioxide (21 - 33 mEq/l) 26 Anion Gap (0 - 20) 11 BUN (7 - 18 mg/dL) 34 H Creatinine (0.6 - 1.3 mg/dL) 2.3 H Glomerular Filtr Rate (70 - 80) 28.0 L Glucose (70 - 110 mg/dL) 115 H POC Glucose (70 - 110 MG/DL) 93 Calcium (8.0 - 10.5 mg/dL) 8.6 Magnesium (1.80 - 2.40 mg/dL) 2.33 Total Bilirubin (0.0 - 1.0 mg/dL) 0.60 Direct Bilirubin (0.0 - 0.30 MG/DL) 0.30 Indirect Bilirubin (MG/DL) 0.30 AST (15 - 37 IUnit/L) 22 ALT (30 - 65 IUnit/L) < 7 L Total Alk Phosphatase (20 - 125 IUnit/L) 61 Total Protein (6.4 - 8.2 g/dL) 5.5 L Albumin (3.4 - 5.0 g/dL) 3.40 Laboratory Tests 08/13 0400 Hematology WBC (4.5 - 11.0 x10 3/uL) 11.1 H RBC (4.00 - 5.60 x10 6/uL) 3.00 L Hgb (12.5 - 16.9 g/dL) 8.9 L Hct (37.5 - 50.7 %) 27.3 L MCV (81.0 - 99.0 fL) 91.0 MCH (27.0 - 33.0 pg) 29.7 MCHC (33.0 - 37.0 g/dL) 32.6 L RDW (11.5 - 14.5 %) 13.4 Plt Count (150 - 400 x10 3/uL) 111 L MPV (7.0 - 9.0 fL) 10.6 H Neut % (Auto) (56.0 - 77.0 %) 78.5 H Lymph % (Auto) (14.0 - 32.0 %) 10.6 L [place] % (Auto) (4.8 - 9.0 %) 9.7 H Eos % (Auto) (0.3 - 3.7 %) 0.5 Baso % (Auto) (0.0 - 2.0 %) 0.2 Neut # (Auto) (2.0 - 7.6 x10 3/uL) 8.69 H Lymph # (Auto) (1.0 - 3.8 x10 3/uL) 1.18 [place] # (Auto) (0.1 - 0.8 x10 3/uL) 1.08 H Eos # (Auto) (0.0 - 0.2 x10 3/uL) 0.05 Baso # (Auto) (0.0 - 0.2 x10 3/uL) 0.02 Abs Immat Gran (auto) (0.00 - 0.03 x10 3/uL) 0.06 H Add Manual Diff NO Immature Gran % (0.0 - 2.0 %) 0.5 Nucleated RBC % (0 - 0 %) 0.0 Nucleated RBCs # (Man) (0.0 - 0.1 x10 3/uL) 0.00 Radiology data:Recent Impressions:RADIOLOGY - XR CHEST 1 V 08/13 0726 Report Impression - Status: SIGNED Entered: 08/13/2022 0755 IMPRESSION: 1. Residual dense opacification of each lung base, primarily on the left side. 2. Slight improvement of left basilar opacity since the most recent exam. 3. Probable small left pleural effusion. 4. Stable moderate cardiomegaly without significant vascular congestion. Impression By: [email or web address] - Jose David Lazar M.D.ULTRASOUND - US SOFT TISSUE TORSO 08/13 1619 Report Impression - Status: SIGNED Entered: 08/13/20222026 IMPRESSION: Moderate bilateral pleural effusions, with basilar atelectasis.Impression By: [email or web address] - Tomy Marion M.D. Treatment Prophylaxis Treatment ProphylaxisDrain(s)/tube(s): Drain(s)/tube(s): chest, urinary catheter Diagnosis, Assessment PlanHospital course to date:82-year-old male with past medical history of hypertension, atrial fibrillation,supraventricular tachycardia status post ablation who was admitted with reports of multivessel coronary artery disease found on a cardiac catheterization done at [facility]. Patient was transferred to [facility] for CABG. 1. Coronary artery disease-Status post CABG x5, ALAA, PVI-Continue metoprolol, Plavix, aspirin-Chest tubes in place and draining- 2. Atrial fibrillation-Continue IV amiodarone for rate control-Continue metoprolol-Monitor and review telemetry 3. Debility-.-PT/OT 4. ARF- cr 1.3-1.9-2.2- post op, post lasix therefore likely pre-renal- baseline CKD is suspected- nephro consulted 5. anemia- acute, post op expecteed- monitor and transfuse if hg <7 dispo: possible INPT REHAB- discussed with Pts daughter in detailstotal time spent 35minsProblem List/A P: 1. S/P CABG x 5 2. CAD (coronary artery disease) 3. Postoperative pulmonary dysfunction after cardiac surgery 4. HTN (hypertension) Consultants: cardiology, cardiovascular surgery at 2157 RPT #:[id number] OF REPORTPRProgress [id number]:02:00G.[id number] for patient [id number]:58:14 [facility] 2022-08-13 11:01:00 [id number] [id number]+XVgrxxLb [id number]:01:00 [facility] HospitalCard[facility] ProgREPORT#:[id number] REPORT STATUS: SignedDATE:08/13/22 TIME: 1101 PATIENT: BERNNAN AHN UNIT #: [id number]#: [id number] [address] [birth year] AGE: 82 SEX: M ATTEND: Salazar Hurd [facility] AUTHOR: Shiloh Pimentel BUILDING PRINCIPAL * ALL edits or amendments must be made on the electronic/computer document * GeneralPost-op: day 3Status post:08/10/22CABG x 5 (NGUYEN-LAD, SVG-Olg Alidia, SVG-OM, SVG-LPLA, SVG-PDA)PVIALAAEVH (RGSV) SubjectiveChief complaint:Follow-up CABG Review of SystemsConstitutional:Denies: fatigue, fever, generalized weakness, malaise. Skin:Denies: itching. Allergy/Immun:Denies: anaphylaxis, hives, itching. Eyes:Denies: itching, diplopia, eye pain. ENT:Denies: nose bleeding, sore throat, throat pain, toothache. Respiratory:Denies: JANG (dyspnea on exertion), pneumonia, SOB. Cardiovascular:Denies: chest pain, palpitations. GI:Denies: abdominal pain, GERD, nausea, vomiting. Musculoskeletal:Denies: extremity pain, extremity swelling, joint pain. Heme:Denies: bleeding, bruising. Neuro:Denies: dizziness, headache, lightheaded, syncope. All systems rev neg: except as marked Objective GeneralVS/I OVital Signs Date Temp Pulse Resp B/P B/P Mean Pulse Ox FiO2 08/12-08/13 97.6-98.7 68-98 15-48 73-174/36-95 48-120 90-100 21-35 Last Documented: Result Date Time Pulse Ox 96 08/13 0752 O2 Delivery Room air 08/13 0752 B/P 171/78 08/13 0701 B/P Mean 112 08/13 0701 Pulse 81 08/13 0701 Resp 16 08/13 0600 Temp 98.0 08/13 0400 FiO2 35 08/13 0341 O2 Flow Rate 0 08/12 1601 24 hour I O ending at 0700: 08/13 0700 08/12 1900 Intake Total 300.00 984.70 Output Total 990 790 Balance -690.00 194.70 Intake, IV 200.00 264.70 Intake, Oral 100 720 Output, Chest 30 300 Tube Drainage Output, Urine 960 490 Patient 220 lb Weight Weight Bed scale Measurement Method PATIENT WEIGHT: Weight (lb): 219Weight (oz): 12.81Weight (kg): 99.700 Physical ExamGeneral appearance: alert, oriented, pleasant, mental status normal, no respiratory distressWound/incision: Location:sternal Site condition: dressing clean dry, dressing intactHEENT: anicteric, mucosal membranes moistNeck: full range of motion, non-tenderCardiovascular: BP/pulses equal bilat., regular rate rhythmRespiratory: aerating well, symmetric expansion, no distressAbdomen: soft, non-tender, no distentionGenitourinary: foleyExtremities: dry, moves allMusculoskeletal: full range of motionNeuro/TEAROOM HOST/HOSTESS: alert, oriented X 3Skin: dry, intactPsychiatry: anxious Current MedicationsMedications:Active Meds + DC'd Last 24 HrsIpratropium [place] (ATROVENT) 500 MCG RTQ6H INH Ipratropium [place] (ATROVENT) 500 MCG Q2H PRN PRN INH Cyanocobalamin (Vitamin B-12 500 mcg tab) 500 MCG DAILY PO Ferrous Sulfate (FERROUS SULFATE) 325 MG DAILY PO Sodium Chloride (SODIUM CHLORIDE 0.9%) 250 ML ONCE ONE IV Bisacodyl (DULCOLAX) 10 MG ONCE PRN RECTAL Magnesium Hydroxide (MILK OF MAGNESIA) 30 ML ONCE PRN PO (DC) Ipratropium [place] (ATROVENT) 500 MCG RTQ4H INH (DC) Dopamine HCl/Dextrose (DOPamine 400MG/D5W 250ML) 250 ML ASDIR IV Tramadol HCl (ULTRAM) 50 MG Q4H PRN PRN PO Clopidogrel Bisulfate (Plavix) 75 MG DAILY PO Polyethylene Glycol (MIRALAX) 17 GM DAILY PO Amiodarone HCl (AMIODARONE HCL) 450 MG ASDIR IV (CKD) Dextrose/Water (D5%W NON-DEHP) 250 MLPantoprazole (PROTONIX) 40 MG DAILY@0600 PO Docusate Sodium (COLACE) 100 MG BID PO Metoprolol Tartrate (LOPRESSOR) 12.5 MG Q12HR PO Mupirocin (BACTROBAN 2% 22 GM OINTMENT) 1 APPLIC BID NASAL Sennosides (Senna Lax 8.6 MG TABLET) 17.2 MG BEDTIME PO Aspirin (ASPIRIN) 81 MG DAILY PO Amiodarone HCl (CORDARONE) 200 MG TID PO Acetaminophen (TYLENOL) 650 MG Q4H PRN PRN PO Acetaminophen (TYLENOL) 650 MG Q4H PRN PRN RECTAL Calcium Chloride (CALCIUM CHLORIDE) 1 GM ASDIR PRN IV Dextrose/Water (DEXTROSE 10% IN WATER) 125 ML ASDIR PRN IV (CKD) Dextrose/Water (DEXTROSE 10% IN WATER) 250 ML ASDIR PRN IV (CKD) Epinephrine (ADRENALIN CHLORIDE) 4 MG ASDIR IV Dextrose/Water (DEXTROSE 5% WATER) 246 MLGlucagon (GLUCAGON) 1 MG ASDIR PRN IM Insulin Human Regular (HumuLIN R) 100 UNIT ASDIR IV (CKD) Sodium Chloride (SODIUM CHLORIDE 0.9%) 99 MLMagnesium Sulfate (MAGNESIUM SULFATE 4GM/SWFI 100ML) 100 ML ASDIR PRN IV Magnesium Sulfate (MAGNESIUM SULFATE 2GM/SWFI 50ML) 50 ML ASDIR PRN IV Magnesium Sulfate/Dextrose (MAGNESIUM SULFATE 1GM/D5W 100ML) 100 ML ASDIR PRN IV Nitroglycerin/Dextrose (NITROGLYCERIN 50,000MCG/D5W 250ML) 250 ML ASDIR IV Norepinephrine Bitartrate (NOREPINEPHRINE 8 MG/NS 250 ML) 250 ML TITRATE IV Ondansetron HCl (ZOFRAN) 4 MG Q6H PRN PRN IV Potassium Chloride (KCL 20MEQ/SWFI 100ML) 100 ML ASDIR PRN IV Sodium Bicarbonate (SODIUM BICARBONATE) 50 MEQ ASDIR PRN IV Sodium Chloride (SODIUM CHLORIDE 0.9%) 1,000 ML .Q20H IV Sodium Chloride (SODIUM CHLORIDE 0.9%) 250 ML Q24H IV Melatonin (Melatonin) 6 MG BEDTIME PRN PRN PO Hydralazine HCl (APRESOLINE) 10 MG Q6H PRN PRN IV ResultsFindings/Data:Laboratory Tests 08/13 08/12 0400 1443 Chemistry Sodium (134 - 147 mEq/L) 135 Potassium (3.4 - 5.0 mEq/L) 3.9 Chloride (100 - 108 mEq/L) 102 Carbon Dioxide (21 - 33 mEq/l) 26 Anion Gap (0 - 20) 11 BUN (7 - 18 mg/dL) 34 H Creatinine (0.6 - 1.3 mg/dL) 2.3 H Glomerular Filtr Rate (70 - 80) 28.0 L Glucose (70 - 110 mg/dL) 115 H POC Glucose (70 - 110 MG/DL) 83 Calcium (8.0 - 10.5 mg/dL) 8.6 Magnesium (1.80 - 2.40 mg/dL) 2.33 Total Bilirubin (0.0 - 1.0 mg/dL) 0.60 Direct Bilirubin (0.0 - 0.30 MG/DL) 0.30 Indirect Bilirubin (MG/DL) 0.30 AST (15 - 37 IUnit/L) 22 ALT (30 - 65 IUnit/L) < 7 L Total Alk Phosphatase (20 - 125 IUnit/L) 61 Total Protein (6.4 - 8.2 g/dL) 5.5 L Albumin (3.4 - 5.0 g/dL) 3.40 Laboratory Tests 08/13 0400 Hematology WBC (4.5 - 11.0 x10 3/uL) 11.1 H RBC (4.00 - 5.60 x10 6/uL) 3.00 L Hgb (12.5 - 16.9 g/dL) 8.9 L Hct (37.5 - 50.7 %) 27.3 L MCV (81.0 - 99.0 fL) 91.0 MCH (27.0 - 33.0 pg) 29.7 MCHC (33.0 - 37.0 g/dL) 32.6 L RDW (11.5 - 14.5 %) 13.4 Plt Count (150 - 400 x10 3/uL) 111 L MPV (7.0 - 9.0 fL) 10.6 H Neut % (Auto) (56.0 - 77.0 %) 78.5 H Lymph % (Auto) (14.0 - 32.0 %) 10.6 L [place] % (Auto) (4.8 - 9.0 %) 9.7 H Eos % (Auto) (0.3 - 3.7 %) 0.5 Baso % (Auto) (0.0 - 2.0 %) 0.2 Neut # (Auto) (2.0 - 7.6 x10 3/uL) 8.69 H Lymph # (Auto) (1.0 - 3.8 x10 3/uL) 1.18 [place] # (Auto) (0.1 - 0.8 x10 3/uL) 1.08 H Eos # (Auto) (0.0 - 0.2 x10 3/uL) 0.05 Baso # (Auto) (0.0 - 0.2 x10 3/uL) 0.02 Abs Immat Gran (auto) (0.00 - 0.03 x10 3/uL) 0.06 H Add Manual Diff NO Immature Gran % (0.0 - 2.0 %) 0.5 Nucleated RBC % (0 - 0 %) 0.0 Nucleated RBCs # (Man) (0.0 - 0.1 x10 3/uL) 0.00 Radiology data:Recent Impressions:RADIOLOGY - XR CHEST 1 V 08/13 9612 Report Impression - Status: SIGNED Entered: 08/13/2022 6475 IMPRESSION: 1. Residual dense opacification of each lung base, primarily on the left side. 2. Slight improvement of left basilar opacity since the most recent exam. 3. Probable small left pleural effusion. 4. Stable moderate cardiomegaly without significant vascular congestion. Impression By: [email or web address] - Jose David Lazar M.D. Treatment Prophylaxis Treatment ProphylaxisOxygen: nasal cannulaLines: arterial, CVC, peripheralDrain(s)/tube(s): Drain(s)/tube(s): chest, urinary catheter Diagnosis, Assessment PlanHospital course to date:82 year old with PMH of hypertension, atrial fibrillation, On Eliquis, Hx of SVT ablation 20 years ago transferred to [facility] with new findings of multi-vessel CAD. He reports he was woken from Sleep on Sunday AM with COmplaints of chest pains. EMS aas called and patient was taken to [facility]. He underwent LHC and found to have multi-vessel CAD by Dr Sanchez. Patient was transferred to [facility] for CABG. Patient lives independently. Daughter is at bedside. Patient reports last dose of Elliquis was Sunday AM. Echo was done at [facility] showing EF 55%, Mild MR, Mild AI, mild LVH. According to his records, he has a hx of Chronic kidney disease with baseline Creatine reportedly 1.5. He does report he has seen a renal MD in the past. Assessment/ Plan1) CAD, Mutli-vessel2) hypertension Continue BBLKR Add Norvasc 5 mg3) Atrial fibrillation. Last dose of Eliquis Sunday AM Obtain EKG4) BPH Continue flomax Workup for CABG underway. Patient was seen and examined by Dr Hurd. Coronary artery bypass surgery was discussed with the patient. The risk of the operation,including the STS score, cristian of blleding, infection, heart attack, stroke, Tracheostomy etc discussed with the patient. CT chest, carotid US, Vein mapping ordered. 08/11/22POD 1 s/p CABG x 5 (NGUYEN-LAD, SVG-Olga Lidia, SVG-OM, SVG-LPLA, SVG-PDA), PVI, ALAA, EVH (RGSV)Patient hemodynamically stable this morning, having episodes of vagal response and BP drops 20 points, SR and sinus arrythmnia noted on monitoring analyst, V epicardial wires on backup rate of 50Amiodarone bolus and dripKeep MS chest tube and monitor outputs, DC LP chest tube after ambulationMinimal oxygen requirements on 2l nasal cannula, encourage deep breathing and I-S useCXR and labs reviewedPain managementGlycemic control on insulin dripCardiac diet, nutritional supplementsBowel regimen, + gasStrict I Os, daily weights, albmuin x 1 given for decreased UOP- monitor hourlySCDs for DVT and PPI for GI prophylaxisPT/OTMonitor patient closely in CVICU, continue supportive carePatient seen with Dr. Hurd, plan of care discussed with ICU team. 08/12 Alert and oriented, up in the chairRemains on amiodarone drip for A-fibWean dopamine offChest x-ray reviewed. Breathing comfortably on room airCreatinine increased to 1.9, urine output 1.5 L last night after the boluses of LasixRepeat renal panel today show creatinine 2.2. Nephrology consulted, hold off onadditional LasixReplace electrolytesEncourage I-S and mobilizationGlycemic controlledKeep in CVICU for close monitoringPatient seen and plan reviewed with Dr Piper, Dr Kirkpatrick, [facility] and multidisciplinaryteam 08/13 Intermittently confused. Continue delirium precautionsMinimal O2 requirements, wean O2 as toleratedAllow for permissive hypertension as urine output improved with higher blood pressureMonitor renal functionEncourage p.o. intake, bowel regimenRemains in A-fib, heart rate fairly controlled. Amiodarone drip at 0.5Discontinue mediastinal chest tubeGlycemic controlKeep in CVICU for close monitoring.Patient seen and plan reviewed with Dr Kirkpatrick, [facility] multidisciplinary teamFamily updated at the bedside Consultants: cardiology, cardiovascular surgery at 1231 at 1511 RPT #:[id number] OF REPORTPRProgress [id number]:01:00G.[id number] for patient dxlfNYLGZCKPJIURXS6586-02-25V24:31:56 [facility] 2022-08-13 09:25:00 [id number] 4jU+QH+anssxcw12ikTvvPOmPNtq296eRguwN [id number]:25:00 [facility] HospitalCardiology Progress NoteREPORT#:[id number] REPORT STATUS: SignedDATE:08/13/22 TIME: 924 PATIENT: BRENNAN AHN UNIT #: [id number]#: [id number] ROOM[facility]BED: [facility]DOB: [birth year] AGE: 82 SEX: M ATTEND: Salazar Hurd [facility] AUTHOR: Guera Marion NP * ALL edits or amendments must be made on the electronic/computer document * SubjectiveChief complaint:sitting in chair Objective GeneralVS/I O:Laboratory Tests 08/13/22 0400:[Embedded Image Not Available] 08/12/22 1056:[Embedded Image Not Available] 08/12/22 0145:[Embedded Image Not Available]Current Medications Sig/Ariana Start time Last Medication Dose Route Stop Time Status Admin Ipratropium [place] 500 MCG Q2H PRN PRN 08/13 1441 AC INH 09/12 1440 Cyanocobalamin 500 MCG DAILY 08/13 09 AC PO 09/12 0859 Ferrous Sulfate 325 MG DAILY 08/13 899 AC PO 09/12 0859 Sodium Chloride 250 ML ONCE ONE 08/12 1715 AC IV 08/23 0314 Bisacodyl 10 MG ONCE PRN 08/12 1200 AC RECTAL 09/11 1159 Magnesium Hydroxide 30 ML ONCE PRN 08/12 1200 DC 08/12 PO 1041 Ipratropium [place] 500 MCG RTQ4H 08/12 0800 AC 08/13 INH 09/11 0759 0746 Dopamine HCl/Dextrose 250 ML ASDIR 08/11 1445 AC 08/11 IV 09/10 1444 1444 Tramadol HCl 50 MG Q4H PRN PRN 08/11 0930 AC 08/11 PO 08/16 0929 0925 Clopidogrel Bisulfate 75 MG DAILY 08/11 09 AC 08/12 PO 09/10 0859 1042 Polyethylene Glycol 17 GM DAILY 08/11 09 AC 08/12 PO 09/10 0859 1043 Amiodarone HCl 450 MG ASDIR 08/11 0745 CKD 08/12 Dextrose/Water 250 ML IV 09/10 0744 2251 Pantoprazole 40 MG DAILY@0600 08/11 0600 AC 08/13 PO 09/10 0559 0637 Docusate Sodium 100 MG BID 08/10 2099 AC 08/12 PO 09/09 Metoprolol Tartrate 12.5 MG Q12HR 08/10 2099 AC 08/12 PO 09/09 Mupirocin 1 APPLIC BID 08/10 2099 AC 08/12 NASAL 08/15 09 2101 Sennosides 17.2 MG BEDTIME 08/10 2099 AC 08/12 PO 09/09 2052099 Aspirin 81 MG DAILY 08/10 204 AC 08/12 PO 09/09 204 104 Amiodarone HCl 200 MG TID 08/10 1500 AC 08/12 PO 09/09 145 2100 Acetaminophen 650 MG Q4H PRN PRN 08/10 1445 AC 08/12 PO 09/09 1444 1044 Acetaminophen 650 MG Q4H PRN PRN 08/10 1445 AC RECTAL 09/09 1444 Calcium Chloride 1 GM ASDIR PRN 08/10 1445 AC IV 09/09 1444 Dextrose/Water 125 ML ASDIR PRN 08/10 1445 CKD IV 09/09 1444 Dextrose/Water 250 ML ASDIR PRN 08/10 1445 CKD IV 09/09 1444 Epinephrine 4 MG ASDIR 08/10 1445 AC Dextrose/Water 246 ML IV 09/09 1444 Glucagon 1 MG ASDIR PRN 08/10 1445 AC IM 09/09 1444 Insulin Human Regular 100 UNIT ASDIR 08/10 1445 CKD Sodium Chloride 99 ML IV 09/09 1444 Magnesium Sulfate 100 ML ASDIR PRN 08/10 1445 AC IV 09/09 1444 Magnesium Sulfate 50 ML ASDIR PRN 08/10 1445 AC IV 09/09 1444 Magnesium Sulfate/ 100 ML ASDIR PRN 08/10 1445 AC 08/13 Dextrose IV 09/09 1444 0638 Nitroglycerin/ 250 ML ASDIR 08/10 1445 AC Dextrose IV 09/09 1444 Norepinephrine 250 ML TITRATE 08/10 1445 AC Bitartrate IV 09/09 1444 Ondansetron HCl 4 MG Q6H PRN PRN 08/10 1445 AC IV 09/09 1444 Potassium Chloride 100 ML ASDIR PRN 08/10 1445 AC 08/12 IV 09/09 1444 0253 Sodium Bicarbonate 50 MEQ ASDIR PRN 08/10 1445 AC IV 09/09 1444 Sodium Chloride 1,000 ML .Q20H 08/10 1445 AC 08/11 IV 09/09 1444 0753 Sodium Chloride 250 ML Q24H 08/10 1445 AC IV 09/09 1444 Melatonin 6 MG BEDTIME PRN PRN 08/10 0015 AC 08/10 PO 09/09 0014 0022 Hydralazine HCl 10 MG Q6H PRN PRN 08/09 1930 AC 08/09 IV 09/08 1929 2208 24 hour I O ending at 0700: 08/13 0700 08/12 1900 Intake Total 300.00 984.70 Output Total 990 790 Balance -690.00 194.70 Intake, IV 200.00 264.70 Intake, Oral 100 720 Output, Chest 30 300 Tube Drainage Output, Urine 960 490 Patient 99.7 kg Weight Weight Bed scale Measurement Method Vital Signs: Date Time Temp Pulse Resp B/P B/P Pulse O2 O2 Flow FiO2 Mean Ox Delivery Rate 08/13 0752 96 Room air 08/13 0701 81 171/78 112 96 / 0636 92 134/95 110 97 /12 0600 76 16 174/77 111 96 03/12 0530 76 171/77 110 100 03/12 0500 75 158/77 109 100 03/12 0430 76 20 158/80 112 100 03/12 0415 79 16 100 03/12 0400 36.7 74 16 163/79 107 100 Room air 03/ 0400 74 16 163/79 113 100 03/12 0359 76 16 163/79 113 100 03/12 0349 79 171/84 120 100 03/12 0341 76 100 35 03/12 0341 100 BiPAP 35 03/12 0315 80 18 100 03/12 0300 170/86 119 03/12 0159 77 18 100 03/12 0145 77 19 100 03/12 0130 80 18 126/72 94 100 03/12 0100 78 159/74 107 100 03/12 0030 76 18 165/86 116 100 03/12 0000 36.8 79 16 156/82 106 100 Room air 03/12 0000 79 156/82 112 100 03/11 2350 80 100 35 03/11 2350 100 BiPAP 35 03/ 2330 71 24 154/81 111 100 03/ 2301 93 130/84 101 94 03/11 2230 71 21 140/71 98 100 03/11 2206 81 100 35 03/11 2200 36.7 83 22 132/84 100 96 Room air 03/ 2200 83 22 132/84 98 96 03/11 2130 87 29 168/87 119 97 03/11 2112 93 Room air 21 03/11 2100 80 26 160/74 106 96 03/11 2030 82 28 163/74 106 96 03/1999 37.1 03/1999 36.6 85 32 161/73 106 90 03/11 1930 91 37 160/72 103 95 03/11 1900 81 36 161/74 106 97 03/11 1830 83 36 149/68 98 96 03/11 1804 87 36 147/64 92 95 03/11 1730 79 29 115/67 77 95 03/11 1700 79 42 115/58 79 94 03/11 1635 81 35 119/84 92 97 03/11 1601 36.6 82 33 127/59 85 96 0 03/11 1525 98 Room air 21 08/12 1501 83 35 105/90 95 96 03/11 1430 74 36 117/56 80 98 03/11 1408 77 26 97 03/11 1400 74 34 125/60 86 95 03/11 1345 74 15 97 03/11 1330 69 18 103/53 76 96 03/11 1320 76 34 114/53 77 98 03/11 1315 85 48 03/11 1300 73 40 98/56 74 96 03/11 1248 68 30 90/55 69 96 03/11 1245 74 34 73/36 48 91 03/11 1230 68 27 96/53 68 95 03/11 1216 97 Room air 21 03/ 1215 71 32 95/54 72 97 03/11 1200 36.4 72 28 98/54 72 95 0 03/11 1145 73 40 91/54 67 93 03/11 1130 98 24 95 03/11 1115 83 33 130/67 92 97 03/11 1100 90 38 125/58 84 97 03/11 1045 100 29 125/60 86 96 03/11 1036 104 39 92/50 65 89 03/11 1030 98 43 88/65 71 97 03/11 1015 102 35 96 03/11 1000 99 27 103/51 73 93 03/11 0946 101 30 115/57 82 94 03/11 0930 107 43 120/58 84 91 PATIENT WEIGHT: Weight (lb): 219Weight (oz): 12.81Weight (kg): 99.700 Physical ExamGeneral appearance: alert, awake, oriented, no acute distress, pleasantHead/Eyes: atraumatic, PERRLCardiovascular: CV assessment: irregularly irregularRespiratory: rhonchiAbdomen: soft, non-tender, normal bowel sounds, no distentionLower extremity: LE assessment: edema, normal capillary refill, normal temperatureNeuro/TEAROOM HOST/HOSTESS: alert, oriented X 3Skin: poor skin turgor ResultsRadiology data:Recent Impressions:RADIOLOGY - XR CHEST 1 V 08/13 0726 Report Impression - Status: SIGNED Entered: 08/13/2022 1097 IMPRESSION: 1. Residual dense opacification of each lung base, primarily on the left side. 2. Slight improvement of left basilar opacity since the most recent exam. 3. Probable small left pleural effusion. 4. Stable moderate cardiomegaly without significant vascular congestion. Impression By: [email or web address] - Jose David Lazar M.D. Diagnosis, Assessment PlanConsultants: cardiology, cardiovascular surgery Free Text DxA P NotesFree Text DxA P Notes:1. CAD s/pCABG x 5 (NGUYEN-LAD, SVG-Olga Lidia, SVG-OM, SVG-LPLA, SVG-PDA) continue asa, bb, plavixecho 08/12- LVEF 50-54%, left pleural effusionoff dopamine post-op per CTS 2. A-fib: Paroxysmal- rate controlleds/p PVI and ARISTEO amputationon amiodarone, bb 3. HTNmonitor post-op 4. AKIper Nephrology continue supportive care at 0929 at 1058 RPT #:[id number] OF REPORTPRProgress [id number]:25:00G.[id number] for patient qkufTCOQHFYJNRHALZ4035-15-21F56:29:53 [facility] 2022-08-13 08:30:00 [id number]/zE6MmJmL2 RGL7Lim/Wp+VFpPbfBcwaZabtWjxLQk5D1cmh [id number]:30:00 [facility] ([facility])Critical Care Progress NoteREPORT#:[id number] REPORT STATUS: SignedDATE:08/13/22 TIME: 0830 PATIENT: BRENNAN AHN UNIT #: [id number]#: [id number] [address] [birth year] AGE: 82 SEX: M ATTEND: Salazar Hurd MDADM AUTHOR: Breezy Nance MD * ALL edits or amendments must be made on the electronic/computer document * SubjectiveChief complaint:CABGHPI:82-year-old male with history of hypertension, A-fib on Eliquis, SVT s/p ablation, CKD and possible Alzheimer disease, who presented with chest pain and found to have multivessel coronary artery disease on cardiac cath. Patient underwent CABG x5 today on 08/10/2022. Has LVH with preserved EF. Crystalloid 1 L,Cell Saver 425, urine output 350. Surgery went well and patient was transferred to CVICU postop in a stable surgical condition. He is currently intubated on 4 mics of Levophed, 2 mics of epinephrine and insulin drip. Comments:The patient offers no new complaintsNo SOBChest x-ray shows decreased congestion and left effusion.Improved urine output with increased blood pressureCreatinine trending up slightlyDecreased chest tube outputAfebrile Review of Systems Free Text ROS NotesFree Text ROS Notes:12 point Review of Systems was performed to the extent possible including discussion with the nursing staff and review of vital signs and all data. All systems negative other than pertinent negative/positive findings mentioned in the interval history section. Objective GeneralVS/I OLast Documented: Result Date Time Pulse Ox 94 08/16 2015 Pulse 83 08/16 2015 O2 Delivery Room air 08/16 2015 B/P 117/58 08/15 1801 B/P Mean 83 08/15 1801 Resp 36 08/15 180 Temp 36.6 08/15 1600 FiO2 21 08/15 0339 O2 Flow Rate 2 08/14 0800 24 hour I O ending at 0700: 08/15 0700 08/14 1900 Intake Total 750.00 240 Output Total 700 325 Balance 50.00 -85 Intake, IV 250.00 Intake, Oral 500 240 Number 1 Bowel Movements Number 2 Incontinent Voids Number Voids 3 2 Output, Urine 700 325 PATIENT WEIGHT: Weight (lb): 222Weight (oz): 7.14Weight (kg): 100.900 Medications:Active Meds + DC'd Last 24 HrsIpratropium [place] (ATROVENT) 500 MCG Q2H PRN PRN INH Cyanocobalamin (Vitamin B-12 500 mcg tab) 500 MCG DAILY PO Ferrous Sulfate (FERROUS SULFATE) 325 MG DAILY PO Sodium Chloride (SODIUM CHLORIDE 0.9%) 250 ML ONCE ONE IV Bisacodyl (DULCOLAX) 10 MG ONCE PRN RECTAL Magnesium Hydroxide (MILK OF MAGNESIA) 30 ML ONCE PRN PO (DC) Ipratropium [place] (ATROVENT) 500 MCG RTQ4H INH Dopamine HCl/Dextrose (DOPamine 400MG/D5W 250ML) 250 ML ASDIR IV Tramadol HCl (ULTRAM) 50 MG Q4H PRN PRN PO Clopidogrel Bisulfate (Plavix) 75 MG DAILY PO Polyethylene Glycol (MIRALAX) 17 GM DAILY PO Amiodarone HCl (AMIODARONE HCL) 450 MG ASDIR IV (CKD) Dextrose/Water (D5%W NON-DEHP) 250 MLPantoprazole (PROTONIX) 40 MG DAILY@0600 PO Docusate Sodium (COLACE) 100 MG BID PO Metoprolol Tartrate (LOPRESSOR) 12.5 MG Q12HR PO Mupirocin (BACTROBAN 2% 22 GM OINTMENT) 1 APPLIC BID NASAL Sennosides (Senna Lax 8.6 MG TABLET) 17.2 MG BEDTIME PO Aspirin (ASPIRIN) 81 MG DAILY PO Amiodarone HCl (CORDARONE) 200 MG TID PO Acetaminophen (TYLENOL) 650 MG Q4H PRN PRN PO Acetaminophen (TYLENOL) 650 MG Q4H PRN PRN RECTAL Calcium Chloride (CALCIUM CHLORIDE) 1 GM ASDIR PRN IV Dextrose/Water (DEXTROSE 10% IN WATER) 125 ML ASDIR PRN IV (CKD) Dextrose/Water (DEXTROSE 10% IN WATER) 250 ML ASDIR PRN IV (CKD) Epinephrine (ADRENALIN CHLORIDE) 4 MG ASDIR IV Dextrose/Water (DEXTROSE 5% WATER) 246 MLGlucagon (GLUCAGON) 1 MG ASDIR PRN IM Insulin Human Regular (HumuLIN R) 100 UNIT ASDIR IV (CKD) Sodium Chloride (SODIUM CHLORIDE 0.9%) 99 MLMagnesium Sulfate (MAGNESIUM SULFATE 4GM/SWFI 100ML) 100 ML ASDIR PRN IV Magnesium Sulfate (MAGNESIUM SULFATE 2GM/SWFI 50ML) 50 ML ASDIR PRN IV Magnesium Sulfate/Dextrose (MAGNESIUM SULFATE 1GM/D5W 100ML) 100 ML ASDIR PRN IV Nitroglycerin/Dextrose (NITROGLYCERIN 50,000MCG/D5W 250ML) 250 ML ASDIR IV Norepinephrine Bitartrate (NOREPINEPHRINE 8 MG/NS 250 ML) 250 ML TITRATE IV Ondansetron HCl (ZOFRAN) 4 MG Q6H PRN PRN IV Potassium Chloride (KCL 20MEQ/SWFI 100ML) 100 ML ASDIR PRN IV Sodium Bicarbonate (SODIUM BICARBONATE) 50 MEQ ASDIR PRN IV Sodium Chloride (SODIUM CHLORIDE 0.9%) 1,000 ML .Q20H IV Sodium Chloride (SODIUM CHLORIDE 0.9%) 250 ML Q24H IV Melatonin (Melatonin) 6 MG BEDTIME PRN PRN PO Hydralazine HCl (APRESOLINE) 10 MG Q6H PRN PRN IV ResultsFindings/data:Laboratory Tests 08/13 08/12 08/12 08/12 0400 1443 1056 0924 Chemistry Sodium (134 - 147 mEq/L) 135 136 Potassium (3.4 - 5.0 mEq/L) 3.9 4.0 Chloride (100 - 108 mEq/L) 102 103 Carbon Dioxide (21 - 33 mEq/l) 26 24 Anion Gap (0 - 20) 11 13 BUN (7 - 18 mg/dL) 34 H 29 H Creatinine (0.6 - 1.3 mg/dL) 2.3 H 2.2 H Glomerular Filtr Rate (70 - 80) 28.0 L 29.5 L Glucose (70 - 110 mg/dL) 115 H 187 H POC Glucose (70 - 110 MG/DL) 83 114 H Calcium (8.0 - 10.5 mg/dL) 8.6 8.7 Phosphorus (2.5 - 4.9 MG/DL) 3.1 Magnesium (1.80 - 2.40 mg/dL) 2.33 Total Bilirubin (0.0 - 1.0 mg/dL) 0.60 Direct Bilirubin (0.0 - 0.30 MG/DL) 0.30 Indirect Bilirubin (MG/DL) 0.30 AST (15 - 37 IUnit/L) 22 ALT (30 - 65 IUnit/L) < 7 L Total Alk Phosphatase (20 - 125 IUnit/L) 61 Total Protein (6.4 - 8.2 g/dL) 5.5 L Albumin (3.4 - 5.0 g/dL) 3.40 3.90 Laboratory Tests 08/13 0400 Hematology WBC (4.5 - 11.0 x10 3/uL) 11.1 H RBC (4.00 - 5.60 x10 6/uL) 3.00 L Hgb (12.5 - 16.9 g/dL) 8.9 L Hct (37.5 - 50.7 %) 27.3 L MCV (81.0 - 99.0 fL) 91.0 MCH (27.0 - 33.0 pg) 29.7 MCHC (33.0 - 37.0 g/dL) 32.6 L RDW (11.5 - 14.5 %) 13.4 Plt Count (150 - 400 x10 3/uL) 111 L MPV (7.0 - 9.0 fL) 10.6 H Neut % (Auto) (56.0 - 77.0 %) 78.5 H Lymph % (Auto) (14.0 - 32.0 %) 10.6 L [place] % (Auto) (4.8 - 9.0 %) 9.7 H Eos % (Auto) (0.3 - 3.7 %) 0.5 Baso % (Auto) (0.0 - 2.0 %) 0.2 Neut # (Auto) (2.0 - 7.6 x10 3/uL) 8.69 H Lymph # (Auto) (1.0 - 3.8 x10 3/uL) 1.18 [place] # (Auto) (0.1 - 0.8 x10 3/uL) 1.08 H Eos # (Auto) (0.0 - 0.2 x10 3/uL) 0.05 Baso # (Auto) (0.0 - 0.2 x10 3/uL) 0.02 Abs Immat Gran (auto) (0.00 - 0.03 x10 3/uL) 0.06 H Add Manual Diff NO Immature Gran % (0.0 - 2.0 %) 0.5 Nucleated RBC % (0 - 0 %) 0.0 Nucleated RBCs # (Man) (0.0 - 0.1 x10 3/uL) 0.00 Laboratory Tests 08/13/22 0400:[Embedded Image Not Available] 08/12/22 1056:[Embedded Image Not Available] Radiology dataRecent Impressions:RADIOLOGY - XR CHEST 1 V 08/13 0726 Report Impression - Status: SIGNED Entered: 08/13/2022 0757 IMPRESSION: 1. Residual dense opacification of each lung base, primarily on the left side. 2. Slight improvement of left basilar opacity since the most recent exam. 3. Probable small left pleural effusion. 4. Stable moderate cardiomegaly without significant vascular congestion. Impression By: Quinton1 - Jose David Lazar M.D. Free Text Obj NotesFree Text Obj Notes:GEN: Patient is calm and in no distress.NECK: Supple, no JVD or thrush. No adenopathy.LUNGS: Clear lungs, no wheezes, no rales or crackles.CV: Irregularly irregular, rate controlled, no murmurs are heard. No S3 or rubs. GI: Abdomen is soft, not tender. Bowel sounds are present.EXT/Musc: No edema. No clubbing or cyanosis noted. Skin is warm.NEURO: Awake, alert and oriented x 3. No focal findings. Treatment Prophylaxis Treatment ProphylaxisDrain(s)/tube(s): Drain(s)/tube(s): chest, urinary catheter Diagnosis, Assessment PlanProblem list/A P: 1. CAD (coronary artery disease) 2. Postoperative pulmonary dysfunction after cardiac surgery 3. S/P CABG x 5 Free text A P:82-year-old male with history of hypertension, A-fib on Eliquis, SVT s/p ablation, CKD and possible Alzheimer disease, who presented with chest pain and found to have multivessel coronary artery disease on cardiac cath. Patient underwent CABG x5 today on 08/10/2022. Has LVH with preserved EF. Crystalloid 1 L,Cell Saver 425, urine output 350. Surgery went well and patient was transferred to CVICU postop in a stable surgical condition. He is currently intubated on 4 mics of Levophed, 2 mics of epinephrine and insulin drip. Neuro: Appears intact, keep off sedation, multimodal pain controlRespiratory: Sats well, CPAP as tolerated, plan for extubation, ABG and CXR reviewedCardiovascular: HD unstable on vasopressors, attempt to wean, keep CTs to suctionRenal: strict I/Os, monitor Cr and electrolytes, LA clear, judicious resuscitationGI: bedside swallow then oral diet after extubation, bowel regimen, monitor LFTsID: reactive leukocytosis, trend WBC, continue periop antibiotics per protocolHem: acute blood loss anemia, monitor Hgb and CTs output, transfuse as neededEndo: Blood glucose control with insulin gtt per protocolMisc: PTOT consult, DVT and GI prophylaxis with DAPT and PPI 3/10Continue supplemental oxygen and titrate FiO2 to keep saturation more than 90%.Inhaled bronchodilators as neededIS and LVEPJudicious pain controlAspirin and PlavixAmiodarone p.o.MetoprololAmiodarone bolus and drip1 albumin bolus1 dose of Lasix 20 mgDopamine drip at 3 micsMonitor kidney function and trend creatinineMonitor and replete electrolytesStrict I O'sCardiac diet with bowel regimenBlood glucose control, sliding scale insulinVTE prophylaxis, DOAC'sStress ulcer prophylaxis, ProtonixDiscussed with ICU team and cardiac surgeryCritical care time 41 minutes 3/11Continue supplemental oxygen and titrate FiO2 to keep saturation more than 90%.Inhaled bronchodilators as neededIS and LVEPContinue monitoring chest tube output, increased output after walkingJudicious pain controlEchocardiogram is done, results are pendingAspirin and PlavixAmiodarone p.o.MetoprololAmiodarone bolus and dripOff dopamineHolding off on Lasix for now per nephrologyMonitor kidney function and trend creatinineMonitor and replete electrolytesStrict I O'sCardiac diet with bowel regimenBlood glucose control, sliding scale insulinVTE prophylaxis, DOAC'sStress ulcer prophylaxis, ProtonixDiscussed with ICU team, nephrology and cardiac surgeryCritical care time 39 minutes 3/12Continue supplemental oxygen and titrate FiO2 to keep saturation more than 90%.Inhaled bronchodilators as neededIS and LVEPContinue monitoring chest tube output, DC mediastinal chest tubeLeft chest ultrasoundJudicious pain controlEchocardiogram is done, EF of 50% and reduced RV function1 bolus of albuminAspirin and PlavixAmiodarone p.o.MetoprololOff amiodarone dripMaintain higher blood pressure for better perfusion and better urine outputMonitor kidney function and trend creatinineMonitor and replete electrolytesStrict I O'sCardiac diet with bowel regimenBlood glucose control, sliding scale insulinVTE prophylaxis, DOAC'sStress ulcer prophylaxis, ProtonixDiscussed with ICU team, nephrology and cardiac surgeryCritical care time 37 minutes Consultants: cardiology, cardiovascular surgery at 2123 RPT #:[id number] OF REPORTPRProgress [id number]:30:00G.[id number] for patient [id number]:23:33 [facility] 2022-08-13 07:08:00 [id number] UjV72Q0+CmT/d9/jQBpfDDDN/Osz6urR73GJv [id number]:08:00 [facility]Ad[facility] General ConsultationREPORT#:[id number] REPORT STATUS: SignedDATE:08/13/22 TIME: 707 PATIENT: BRENNAN AHN UNIT #: [id number]#: [id number] [address] [birth year] AGE: 82 SEX: M ATTEND: Salazar Hurd [facility] AUTHOR: Florentino Jimenez * ALL edits or amendments must be made on the electronic/computer document * History of Present IllnessReason for consult:PMR consultationChief complaint:Debility post CABGHPI:82-year-old male with PMH of Alzheimer's dementia, CKD, HTN, atrial fibrillation, history of SVT/ablation who was transferred to [facility] ED after being foundto have multivessel coronary artery disease. Patient initially with was at homeand developed chest pains. [facility] which revealed multivessel CAD. Patient evaluated here by cardiothoracic surgery and underwent CABG x5 on 08/10. Patient with postoperative anemia and significant impairment in mobility. We have been askedto see him in consultation for physical medicine and rehabilitation evaluation. History - Adult longitudinalPast medical history:Reports: Atrial fibrillation, Coronary artery disease, Dementia, Kidney disease/stones. Additional surgical history:Crevial LaminectomyFamily history:Reports: Hypertension. Alcohol use: Denies EtOH useDrug use: Denies recreational drugsMedications:Home Medications: Medication Dose/Rte/Freq Days Qty Entered Last Max Daily Dose Reviewed METOPROLOL TARTRATE 50 MG PO BID 08/09/22 08/09/22 (LOPRESSOR) 1903 1904 Strength: 50 MG TAB hydrALAZINE (APRESOLINE) 20 MG IV 08/09/22 08/09/22 Strength: 20 MG/ML AMPUL Q4H PRN PRN SBP 1904 1904 GREATER THAN 180 Current Hospital Medications:Ahfs Category Unknown Sig/Ariana Start time Last Medication Dose Route Stop Time Status Admin Melatonin 6 MG BEDTIME PRN PRN 08/10 0015 AC 08/10 (Melatonin) PO 09/09 0014 0022 Autonomic Drugs Sig/Ariana Start time Last Medication Dose Route Stop Time Status Admin Ipratropium [place] 500 MCG Q2H PRN PRN 08/13 1441 AC (ATROVENT) INH 09/12 1440 Ipratropium [place] 500 MCG RTQ4H 08/12 0800 AC 08/13 (ATROVENT) INH 09/11 0759 0338 Dopamine HCl/Dextrose 250 ML ASDIR 08/11 1445 AC 08/11 (DOPamine 400MG/D5W IV 09/10 144 1444 250ML) Epinephrine 4 MG ASDIR 08/10 1445 AC (ADRENALIN CHLORIDE) IV 09/09 144 Dextrose/Water 246 ML (DEXTROSE 5% WATER) Norepinephrine 250 ML TITRATE 08/10 1445 AC Bitartrate IV 09/09 144 (NOREPINEPHRINE 8 MG/ NS 250 ML) Blood Formation,Coagulation Sig/Ariana Start time Last Medication Dose Route Stop Time Status Admin Ferrous Sulfate 325 MG DAILY 08/13 09 AC (FERROUS SULFATE) PO 09/12 0859 Clopidogrel Bisulfate 75 MG DAILY 08/11 09 AC 08/12 (Plavix) PO 09/10 0859 1042 Cardiovascular Drugs Sig/Ariana Start time Last Medication Dose Route Stop Time Status Admin Amiodarone HCl 450 MG ASDIR 08/11 0745 CKD 08/12 (AMIODARONE HCL) IV 09/10 0744 2251 Dextrose/Water 250 ML (D5%W NON-DEHP) Metoprolol Tartrate 12.5 MG Q12HR 08/10 2099 AC 08/12 (LOPRESSOR) PO 09/09 205 2100 Amiodarone HCl 200 MG TID 08/10 1500 AC 08/12 (CORDARONE) PO 09/09 1459 2100 Nitroglycerin/ 250 ML ASDIR 08/10 1445 AC Dextrose IV 09/09 1444 (NITROGLYCERIN 50,000MCG/D5W 250ML) Hydralazine HCl 10 MG Q6H PRN PRN 08/09 1930 AC 08/09 (APRESOLINE) IV 09/08 1929 2208 Central Nervous System Agents Sig/Ariana Start time Last Medication Dose Route Stop Time Status Admin Tramadol HCl 50 MG Q4H PRN PRN 08/11 0930 AC 08/11 (ULTRAM) PO 08/16 0929 0925 Aspirin 81 MG DAILY 08/10 2040 AC 08/12 (ASPIRIN) PO 09/10 2039 1042 Acetaminophen 650 MG Q4H PRN PRN 08/10 1445 AC 08/12 (TYLENOL) PO 09/09 1444 1044 Acetaminophen 650 MG Q4H PRN PRN 08/10 1445 AC (TYLENOL) RECTAL 09/09 1444 Magnesium Sulfate 100 ML ASDIR PRN 08/10 1445 AC (MAGNESIUM SULFATE IV 09/09 1444 4GM/SWFI 100ML) Magnesium Sulfate 50 ML ASDIR PRN 08/10 1445 AC (MAGNESIUM SULFATE IV 09/09 1444 2GM/SWFI 50ML) Magnesium Sulfate/ 100 ML ASDIR PRN 08/10 1445 AC 08/13 Dextrose IV 09/09 1444 0638 (MAGNESIUM SULFATE 1GM/D5W 100ML) Electrolytic, Caloric, And Alexandre Sig/Ariana Start time Last Medication Dose Route Stop Time Status Admin Sodium Chloride 250 ML ONCE ONE 08/12 1715 AC (SODIUM CHLORIDE IV 08/23 0314 0.9%) Calcium Chloride 1 GM ASDIR PRN 08/10 1445 AC (CALCIUM CHLORIDE) IV 09/09 144 Dextrose/Water 125 ML ASDIR PRN 08/10 144 CKD (DEXTROSE 10% IN IV 09/09 144 WATER) Dextrose/Water 250 ML ASDIR PRN 08/10 144 CKD (DEXTROSE 10% IN IV 09/09 144 WATER) Potassium Chloride 100 ML ASDIR PRN 08/10 1445 AC 08/12 (KCL 20MEQ/SWFI IV 09/09 144 0253 100ML) Sodium Bicarbonate 50 MEQ ASDIR PRN 08/10 144 AC (SODIUM BICARBONATE) IV 09/09 144 Sodium Chloride 1,000 ML .Q20H 08/10 144 AC 08/11 (SODIUM CHLORIDE IV 09/10 1443 0753 0.9%) Sodium Chloride 250 ML Q24H 08/10 144 AC (SODIUM CHLORIDE IV 09/09 144 0.9%) Gastrointestinal Drugs Sig/Ariana Start time Last Medication Dose Route Stop Time Status Admin Bisacodyl 10 MG ONCE PRN 08/12 1200 AC (DULCOLAX) RECTAL 09/11 1159 Magnesium Hydroxide 30 ML ONCE PRN 08/12 1200 DC 08/12 (MILK OF MAGNESIA) PO 1041 Polyethylene Glycol 17 GM DAILY 08/11 0900 AC 08/12 (MIRALAX) PO 09/10 0859 1043 Pantoprazole 40 MG DAILY@0600 08/11 0600 AC 08/13 (PROTONIX) PO 09/10 0559 0637 Docusate Sodium 100 MG BID 08/10 2100 AC 08/12 (COLACE) PO 09/09 Sennosides 17.2 MG BEDTIME 08/10 2099 AC 08/12 (Senna Lax 8.6 MG PO 09/09 2058 2100 TABLET) Ondansetron HCl 4 MG Q6H PRN PRN 08/10 144 AC (ZOFRAN) IV 09/09 144 Hormones And Synthetic Substit Sig/Ariana Start time Last Medication Dose Route Stop Time Status Admin Glucagon 1 MG ASDIR PRN 08/10 1445 AC (GLUCAGON) IM 09/09 144 Insulin Human Regular 100 UNIT ASDIR 08/10 144 CKD (HumuLIN R) IV 09/09 1444 Sodium Chloride 99 ML (SODIUM CHLORIDE 0.9%) Skin And Mucous Membrane Agent Sig/Ariana Start time Last Medication Dose Route Stop Time Status Admin Mupirocin 1 APPLIC BID 08/10 2100 AC 08/12 (BACTROBAN 2% 22 GM NASAL 08/15 0901 2101 OINTMENT) Vitamins Sig/Ariana Start time Last Medication Dose Route Stop Time Status Admin Cyanocobalamin 500 MCG DAILY 08/13 09 AC (Vitamin B-12 500 PO 09/12 0859 mcg tab) Allergies:Coded Allergies:Yqnecqq-FNO-XbX Reductase Inhibitor (Severe, UNKNOWN 08/09/22) Review of SystemsConstitutional:fatigue, generalized weakness. Musculoskeletal:thoracic pain. All systems rev neg: except as marked ObjectiveVS/I O:Last Documented: Result Date Time Pulse Ox 100 08/13 0341 FiO2 35 08/13 0341 Pulse 76 08/13 0341 O2 Delivery BiPAP 08/13 0341 B/P 159/74 08/13 0100 B/P Mean 107 08/13 0100 Resp 18 08/13 0030 Temp 98.2 08/13 0000 O2 Flow Rate 0 08/12 1601 24 hour I O ending at 0700: 08/13 0700 08/12 1900 Intake Total 300.00 984.70 Output Total 910 790 Balance -610.00 194.70 Intake, IV 200.00 264.70 Intake, Oral 100 720 Output, Chest 30 300 Tube Drainage Output, Urine 880 490 PATIENT WEIGHT: Weight (lb): 225Weight (oz): 5Weight (kg): 102.200 General appearance: alert, awake, no acute distressHead/Eyes: atraumatic, EOMI, normocephalicENT: normal dentition, normal ear left, normal ear rightNeck: non-tender, no JVD, no lymphadenopathyCardiovascular: regular rate rhythm, no murmurRespiratory: aerating well, symmetric expansion, no distressAbdomen: soft, non-tender, no distentionGenitourinary: not indicatedExtremities: moves all, no edema, no clubbing, no cyanosisNeuro/TEAROOM HOST/HOSTESS: alert, CNII-XII grossly intact, normal speechSkin: no rash, surgical incisions C/D/ILymphatics: no lymphadenopathyPsychiatry: normal affect, normal judgment/insight ResultsFindings/Data:Laboratory Tests: 08/13 08/12 08/12 08/12 0400 1443 1056 0924Chemistry Sodium (134 - 147 mEq/L) 135 136 Potassium (3.4 - 5.0 mEq/L) 3.9 4.0 Chloride (100 - 108 mEq/L) 102 103 Carbon Dioxide (21 - 33 mEq/l) 26 24 Anion Gap (0 - 20) 11 13 BUN (7 - 18 mg/dL) 34 H 29 H Creatinine (0.6 - 1.3 mg/dL) 2.3 H 2.2 H Glomerular Filtr Rate (70 - 80) 28.0 L 29.5 L Glucose (70 - 110 mg/dL) 115 H 187 H POC Glucose (70 - 110 MG/DL) 83 114 H Calcium (8.0 - 10.5 mg/dL) 8.6 8.7 Phosphorus (2.5 - 4.9 MG/DL) 3.1 Magnesium (1.80 - 2.40 mg/dL) 2.33 Total Bilirubin (0.0 - 1.0 mg/dL) 0.60 Direct Bilirubin (0.0 - 0.30 MG/DL) 0.30 Indirect Bilirubin (MG/DL) 0.30 AST (15 - 37 IUnit/L) 22 ALT (30 - 65 IUnit/L) < 7 L Total Alk Phosphatase (20 - 125 IUnit/L) 61 Total Protein (6.4 - 8.2 g/dL) 5.5 L Albumin (3.4 - 5.0 g/dL) 3.40 3.90Hematology WBC (4.5 - 11.0 x10 3/uL) 11.1 H RBC (4.00 - 5.60 x10 6/uL) 3.00 L Hgb (12.5 - 16.9 g/dL) 8.9 L Hct (37.5 - 50.7 %) 27.3 L MCV (81.0 - 99.0 fL) 91.0 MCH (27.0 - 33.0 pg) 29.7 MCHC (33.0 - 37.0 g/dL) 32.6 L RDW (11.5 - 14.5 %) 13.4 Plt Count (150 - 400 x10 3/uL) 111 L MPV (7.0 - 9.0 fL) 10.6 H Neut % (Auto) (56.0 - 77.0 %) 78.5 H Lymph % (Auto) (14.0 - 32.0 %) 10.6 L [place] % (Auto) (4.8 - 9.0 %) 9.7 H Eos % (Auto) (0.3 - 3.7 %) 0.5 Baso % (Auto) (0.0 - 2.0 %) 0.2 Neut # (Auto) (2.0 - 7.6 x10 3/uL) 8.69 H Lymph # (Auto) (1.0 - 3.8 x10 3/uL) 1.18 [place] # (Auto) (0.1 - 0.8 x10 3/uL) 1.08 H Eos # (Auto) (0.0 - 0.2 x10 3/uL) 0.05 Baso # (Auto) (0.0 - 0.2 x10 3/uL) 0.02 Abs Immat Gran (auto) (0.00 - 0.03 x10 3/uL) 0.06 H Add Manual Diff NO Immature Gran % (0.0 - 2.0 %) 0.5 Nucleated RBC % (0 - 0 %) 0.0 Nucleated RBCs # (Man) (0.0 - 0.1 x10 3/uL) 0.00 Recent Impressions:RADIOLOGY - XR CHEST 1 V 08/12 0717 Report Impression - Status: SIGNED Entered: 08/12/2022 0951 IMPRESSION: 1. Minimal left apical pneumothorax. Moderate left pleural effusion subjectively enlarged. 2. Bibasilar atelectasis versus airspace disease. 3. Stable postoperative cardiomediastinal silhouette. Impression By: Aretha Awad M.D. Diagnosis, Assessment Plan Free Text DxA P NotesFree Text DxA P Notes:Multivessel CADStatus post CABG r7Jpaeri weakness Unsteady gaitImpaired ADLs, mobilityAlzheimer's dementiaPostoperative anemiaCKDHistory of A-fibHTN Plan:Continue PT/OTOut of bed to chairWork on strength, bed mobility, transfers, gaitMonitor for left knee bucklingIncrease enduranceFall precautionsMonitor p.o. intake and nutritionStrict decubitus precautionsMonitor labs closelyMonitor telemetry. Still on amnio dripPatient has 1 [place] drainAdvance therapies as tolerated.. Excellent candidateIRF consulted. [employer] Medicare. Will require insurance approval at 1839 RPT #:[id number] OF REPORTIHYhtakmhwpeki0557-82-49K53: 08:00G.[id number] for patient eoscOTHZSLQVCXGTBM2258-97-80N32:39:26 [facility] 2022-08-12 17:20:00 [id number] QetCWnP9/iHjaALkapZJ9CBg814qFU5+FIdko [id number]:20:[id number] [place] [address] PATIENT NAME: BRENNAN AHN ADMIT DATE: 08/09/22ACCOUNT NO: [id number] ROOM NO: G.2202 AGE: 82 REPORT TYPE: eECHOCARDIOGRAM REPORT SEX: M ADMITTING PHYSICIAN:Salazar Hurd MD ATTENDING PHYSICIAN:Salazar Hurd MD *[place], [place] [address]Phone: Cgx: [phone] Limited Transthoracic Echocardiogram Patient: Brennan AhnStudy Date: 08/12/2022 BP: 125 / 60 Location: COCCLURN: [id number] : 1940 Age: 82 Height: 71 in / 180.3 cmAccession#: [id number] Gender: M Weight: 224.5 lb / 102.1 kgBMI/BSA: 31.4 kg/m 2 / 2.29 m 2 *Ordering Physician: * Shiloh Pimentel *Interpreting Physician: * Alli Quiros MD*Opal Miner: * [place] [facility] In dications: EVAL CARDIAC FUNCTION. St udy data: Transthoracic echocardiogram, limited study. Procedure:Transthoracic echocardiography was performed. Images were obtained usinga [employer] cardiac ultrasound machine. Image quality was fair. Limited 2D andlimited spectral Doppler. Location: Bedside. Patient status:Inpatient. Patient room number: 2202. Study status: Stat. Fi ndings Left ventricle: The cavity size is normal. Wall thickness is normal.Systolic function is normal. The estimated ejection fraction is 50-54%.Left ventricular diastolic function parameters are indeterminate.Right ventricle: Systolic function is severely reduced.Left atrium: The atrium is dilated.PATIENT NAME: BRENNAN AHN Right atrium: The atrium is severely dilated.Aortic valve: There is mild regurgitation.Mitral valve: There is mild regurgitation.Tricuspid valve: There is mild regurgitation.Pericardium: There is no pericardial effusion. There is a left pleuraleffusion.Systemic veins:Inferior vena cava: The vessel is normal in size. The respirophasicdiameter changes are blunted (< 50%). Me asurements Left ventricle Value Ref AMANDA, LAX 4.3 cm 4.2 - 5.8 ESD, LAX 3.0 cm 2.5 - 4.0 ESD/bsa, LAX 1.3 cm/m 2 1.3 - 2.1 FS, LAX 30 % 25 - 43 ESD/bsa major 2.5 cm/m 2 --------- ax, A4C AMANDA/bsa minor 2.5 cm/m 2 --------- ax, A4C AMANDA major ax, 7.0 cm --------- A2C AMANDA/bsa major 3.0 cm/m 2 --------- ax, A2C PW, ED 0.9 cm 0.6 - 1.0 IVS/PW, ED 1.11 --------- EF 57 % 52 - 72 LVOT Value Ref Diam, S 2.04 cm --------- Area 3.3 cm 2 --------- Peak angel, S 0.86 m/sec --------- Mean angel, S 0.66 m/sec --------- VTI, S 13.7 cm --------- Peak grad, S 3 mm Hg --------- Mean grad, S 2 mm Hg --------- SV 45 ml --------- Qs 3.58 L/min --------- Qs/bsa 1.6 L/(min-m 2) --------- SV/bsa 20 ml/m 2 --------- Ventricular septum Value Ref IVS, ED 1.0 cm 0.6 - 1.0 Right ventricle Value Ref TAPSE, MM 0.8 cm 1.7 - 3.1 Pressure, S 36 mm Hg --------- Left atrium Value Ref AP dim, ES 4.75 cm 3.00 - 4.00 Vol/bsa, ES, 1-p 37 ml/m 2 12 - 37PATIENT NAME: BRENNAN AHN A4C Vol, ES, 2-p 104 ml --------- Vol/bsa, ES, 2-p 46 ml/m 2 16 - 34 Vol/bsa, ES, A/L 39 ml/m 2 16 - 34 Right atrium Value Ref Area, ES 32 cm 2 10 - 18 Aortic valve Value Ref Peak v, S 1.11 m/sec --------- Mean v, S 0.77 m/sec --------- VTI, S 18.2 cm --------- Mean grad, S 2.6 mm Hg --------- Peak grad, S 4.9 mm Hg --------- LVOT/AV, VTI 0.75 --------- ratio ANYA, VTI 2.47 cm 2 --------- LVOT/AV, Vpeak 0.77 --------- ratio ANYA, Vmax 2.53 cm 2 --------- Mitral valve Value Ref Peak E 1.05 m/sec --------- Peak A 0.34 m/sec --------- Decel time 138 ms --------- Peak grad, D 4.4 mm Hg --------- Peak E/A ratio 3.13 --------- Pulmonic valve Value Ref DC v, ED 0.8 m/sec --------- Tricuspid valve Value Ref TR peak v 2.65 m/sec <=2.8 Peak RV-RA grad, 28 mm Hg --------- S Aortic root Value Ref Root diam 3.0 cm <4.4 Pulmonary artery Value Ref Pressure, S 36.1 mm Hg --------- Systemic veins Value Ref Estimated CVP 8 mm Hg --------- Co nclusions Summary: 1. Left ventricle: The cavity size is normal. Wall thickness is normal. Systolic function is normal. The estimated ejection fraction is 50-54%. Left ventricular diastolic function parameters are indeterminate.PATIENT NAME: BRENNAN AHN 2. Right ventricle: Systolic function is severely reduced.3. Left atrium: The atrium is dilated.4. Right atrium: The atrium is severely dilated.5. Pericardium, extracardiac: There is a left pleural effusion.6. Inferior vena cava: The vessel is normal in size. The respirophasic diameter changes are blunted (< 50%). Prepared and electronically signed by Alli Quiros MD08/12/2022 17:20 at 1720 PATIENT NAME: BRENNAN AHN 08-12T17:20:00G.[id number] lable for patient [id number]:21:40 [facility] 2022-08-12 17:14:00 [id number] avGFwKWWYaL8sLmNNxfAmoD43vpgCugT5g1Ju /[id number]:14:00 [facility])Nephrology Consultation NoteREPORT#:[id number] REPORT STATUS: SignedDATE:08/12/22 TIME: 1714 PATIENT: BRENNAN AHN UNIT #: [id number]#: [id number] [address] [birth year] AGE: 82 SEX: M ATTEND: Salazar Hurd [facility] AUTHOR: Maura Terrazas MD * ALL edits or amendments must be made on the electronic/computer document * History of Present IllnessRequesting clinician: Dr Ruiz for consult:Terrell complaint:chest painHPI:82-year-old male known to have hypertension, atrial fibrillation, supraventricular tachycardia with requiring ablation presenting with multivesselcardiovascular disease and he underwent CABG 07/13/2022. He was extubated postoperatively and his blood pressures were stable when he was seen. He endorsed having kidney issues in the past and seeing a specialist managers at [place] but his kidney function had been stable and he denied any urinary complaints, chronic use of NSAIDs. He also denied any nausea, itching, cramping, change of taste, orthopnea. History - Adult longitudinalPast medical history:Reports: Atrial fibrillation, Coronary artery disease, Dementia, Kidney disease/stones. Additional surgical history:Crevial LaminectomyFamily history:Reports: Hypertension. Alcohol use: Denies EtOH useDrug use: Denies recreational drugsAllergies:Coded Allergies:Foqngcc-AQS-WpE Reductase Inhibitor (Severe, UNKNOWN 08/09/22) Review of SystemsConstitutional:Denies: chills, fever. Skin:Denies: laceration, rash. Allergy/Immun:Denies: hives, itching. Eyes:Denies: redness, discharge. ENT:Denies: sore throat, throat pain. Respiratory:Denies: JANG (dyspnea on exertion), non productive cough. Cardiovascular:Denies: chest pain, JANG (dyspnea on exertion). GI:Denies: abdominal pain, anorexia. :Denies: dysuria, flank pain. Objective GeneralVS/I O:Vital Signs: Date Time Temp Pulse Resp B/P B/P Pulse O2 O2 Flow FiO2 Mean Ox Delivery Rate 08/13 0752 96 Room air 08/13 0701 81 171/78 112 96 08/13 0636 92 134/95 110 97 / 0600 76 16 174/77 111 96 / 0530 76 171/77 110 100 / 0500 75 158/77 109 100 / 0430 76 20 158/80 112 100 / 0415 79 16 100 / 0400 36.7 74 16 163/79 107 100 Room air / 0400 74 16 163/79 113 100 / 0359 76 16 163/79 113 100 / 0349 79 171/84 120 100 / 0341 76 100 35 / 0341 100 BiPAP 35 08/13 0315 80 18 100 03/12 0300 170/86 119 03/12 0159 77 18 100 03/12 0145 77 19 100 03/12 0130 80 18 126/72 94 100 03/12 0100 78 159/74 107 100 03/12 0030 76 18 165/86 116 100 03/12 0000 36.8 79 16 156/82 106 100 Room air 03/12 0000 79 156/82 112 100 03/11 2350 80 100 35 03/11 2350 100 BiPAP 35 03/11 2330 71 24 154/81 111 100 03/11 2301 93 130/84 101 94 03/11 2230 71 21 140/71 98 100 03/11 2206 81 100 35 03/11 2200 36.7 83 22 132/84 100 96 Room air 03/ 2200 83 22 132/84 98 96 03/11 2130 87 29 168/87 119 97 03/11 2112 93 Room air 21 03/ 2100 80 26 160/74 106 96 03/11 2030 82 28 163/74 106 96 /1999 37.1 /1999 36.6 85 32 161/73 106 90 03/11 1930 91 37 160/72 103 95 03/11 1900 81 36 161/74 106 97 03/11 1830 83 36 149/68 98 96 03/11 1804 87 36 147/64 92 95 03/11 1730 79 29 115/67 77 95 03/11 1700 79 42 115/58 79 94 03/11 1635 81 35 119/84 92 97 03/11 1601 36.6 82 33 127/59 85 96 0 03/11 1525 98 Room air 21 / 1501 83 35 105/90 95 96 03/11 1430 74 36 117/56 80 98 03/11 1408 77 26 97 03/11 1400 74 34 125/60 86 95 03/11 1345 74 15 97 03/11 1330 69 18 103/53 76 96 03/11 1320 76 34 114/53 77 98 03/11 1315 85 48 03/11 1300 73 40 98/56 74 96 03/11 1248 68 30 90/55 69 96 03/11 1245 74 34 73/36 48 91 03/11 1230 68 27 96/53 68 95 03/11 1216 97 Room air 21 03/ 1215 71 32 95/54 72 97 03/11 1200 36.4 72 28 98/54 72 95 0 08/12 1145 73 40 91/54 67 93 08/12 1130 98 24 95 08/12 1115 83 33 130/67 92 97 08/12 1100 90 38 125/58 84 97 08/12 1045 100 29 125/60 86 96 08/12 1036 104 39 92/50 65 89 24 hour I O ending at 0700: 08/13 0700 08/12 1900 Intake Total 300.00 984.70 Output Total 990 790 Balance -690.00 194.70 Intake, IV 200.00 264.70 Intake, Oral 100 720 Output, Chest 30 300 Tube Drainage Output, Urine 960 490 Patient 99.7 kg Weight Weight Bed scale Measurement Method PATIENT WEIGHT: Weight (lb): 219Weight (oz): 12.81Weight (kg): 99.700 Physical ExamGeneral appearance: alert, awakeHead/eyes: atraumatic, clear corneaENT: moist mucous membranes, normal noseNeck: no JVD, no lymphadenopathyCardiovascular: normal heart sounds, regular rate and rhythmRespiratory: aerating well, clear to auscultationAbdomen: non-tender, softGenitourinary: no bladder distention, no flank painExtremities: no edema, no gangrene, no swelling Treatment Prophylaxis Treatment ProphylaxisDrain(s)/tube(s): Drain(s)/tube(s): chest, urinary catheter Diagnosis, Assessment PlanConsultants: cardiology, cardiovascular surgery Free Text DxA P NotesFree text DxA P notes:82-year-old male known to have hypertension, atrial fibrillation, supraventricular tachycardia with requiring ablation presenting with multivesselcardiovascular disease and he underwent CABG 07/13/2022. He was extubated postoperatively and his blood pressures were stable when he was seen. He endorsed having kidney issues in the past and seeing a specialist managers at [place] but his kidney function had been stable and he denied any urinary complaints, chronic use of NSAIDs. He also denied any nausea, itching, cramping, change of taste, orthopnea. Nephrology following for: 1. Acute kidney injury: Most likely prerenal as he recently had surgery. His blood pressures are stable but he appears dry therefore I would encourage oral intake and small boluses of IV fluid if needed. 2. Volume status: He appears hypovolemic even though his weight is elevated from admitting weight. Plan is to monitor input and output and continue to encourage oral intake and IV fluid if needed. 3. Electrolytes: His electrolytes appear to be in normal range plan is to monitor and replace as needed 4. Hypertension: His blood pressures are on the low side therefore I would treat only if his SBP goes above 160. at 1042 RPT #:[id number] OF [id number]: 14:00G.[id number] for patient [id number]:43:11 [facility] 2022-08-12 12:51:00 [id number]:51:00 [facility] HospitalInternal Medicine Prog. NoteREPORT#:[id number] REPORT STATUS: SignedDATE:08/12/22 TIME: 1251 PATIENT: BRENNAN AHN UNIT #: [id number]#: [id number] [address] AGE: 82 SEX: M ATTEND: Salazar Hurd [facility] AUTHOR: Devin Fox DO * ALL edits or amendments must be made on the electronic/computer document * SubjectiveChief complaint:pt c/o mild low back pain sitting in chair Review of SystemsAll systems rev neg: except as marked Objective GeneralVS/I O:Vital Signs Date Temp Pulse Resp B/P B/P Mean Pulse Ox FiO2 08/11-08/12 97.8 60-111 14-48 81-188/31-99 53-112 86-100 21-50 Last Documented: Result Date Time Pulse Ox 96 08/12 0806 O2 Delivery High flow nasal cannula 08/12 0806 O2 Flow Rate 1 08/12 0806 B/P 144/49 08/12 0800 B/P Mean 70 03/11 0800 Pulse 93 08/12 0800 Resp 30 08/12 0800 FiO2 40 08/12 0320 Temp 97.8 08/11 1900 24 hour I O ending at 0700: 08/12 0700 08/11 1900 Intake Total 626.00 3105.00 Output Total 1740 380 Balance -1114.00 2725.00 Intake, IV 526.00 1665.00 Intake, Oral 100 960 Intake, Oral 480 Supplement Output, Chest 190 115 Tube Drainage Output, Urine 1550 265 Patient 102.2 kg 100.244 kg Weight Weight Bed scale Measurement Method PATIENT WEIGHT: Weight (lb): 225Weight (oz): 5Weight (kg): 102.200 Medications:Active Meds + DC'd Last 24 HrsIpratropium [place] (ATROVENT) 500 MCG Q2H PRN PRN INH Cyanocobalamin (Vitamin B-12 500 mcg tab) 500 MCG DAILY PO Ferrous Sulfate (FERROUS SULFATE) 325 MG DAILY PO Bisacodyl (DULCOLAX) 10 MG ONCE PRN RECTAL Magnesium Hydroxide (MILK OF MAGNESIA) 30 ML ONCE PRN PO (DC) Ipratropium [place] (ATROVENT) 500 MCG RTQ4H INH Metoprolol Tartrate (LOPRESSOR) 2.5 MG ONCE ONE IV (DC) Amiodarone HCl (NEXTERONE 150MG/D5W 100ML) 100 ML STAT STA IV (DC) Furosemide (LASIX 40 mg/4 mL INJECTION) 40 MG ONCE ONE IV (DC) Hydralazine HCl (APRESOLINE) 10 MG ONCE ONE IV (DC) Furosemide (LASIX 20MG INJ) 20 MG ONCE IV (DC) Furosemide (LASIX 20MG INJ) 20 MG STAT STA IV (DC) Dopamine HCl/Dextrose (DOPamine 400MG/D5W 250ML) 250 ML ASDIR IV Tramadol HCl (ULTRAM) 50 MG Q4H PRN PRN PO Clopidogrel Bisulfate (Plavix) 75 MG DAILY PO Polyethylene Glycol (MIRALAX) 17 GM DAILY PO Amiodarone HCl (AMIODARONE HCL) 450 MG ASDIR IV (CKD) Dextrose/Water (D5%W NON-DEHP) 250 MLPantoprazole (PROTONIX) 40 MG DAILY@0600 PO Docusate Sodium (COLACE) 100 MG BID PO Metoprolol Tartrate (LOPRESSOR) 12.5 MG Q12HR PO Mupirocin (BACTROBAN 2% 22 GM OINTMENT) 1 APPLIC BID NASAL Sennosides (Senna Lax 8.6 MG TABLET) 17.2 MG BEDTIME PO Aspirin (ASPIRIN) 81 MG DAILY PO Amiodarone HCl (CORDARONE) 200 MG TID PO Acetaminophen (TYLENOL) 650 MG Q4H PRN PRN PO Acetaminophen (TYLENOL) 650 MG Q4H PRN PRN RECTAL Albumin Human (ALBUMINAR 25%) 25 GM ASDIR PRN IV (DC) Calcium Chloride (CALCIUM CHLORIDE) 1 GM ASDIR PRN IV Dextrose/Water (DEXTROSE 10% IN WATER) 125 ML ASDIR PRN IV (CKD) Dextrose/Water (DEXTROSE 10% IN WATER) 250 ML ASDIR PRN IV (CKD) Epinephrine (ADRENALIN CHLORIDE) 4 MG ASDIR IV Dextrose/Water (DEXTROSE 5% WATER) 246 MLGlucagon (GLUCAGON) 1 MG ASDIR PRN IM Insulin Human Regular (HumuLIN R) 100 UNIT ASDIR IV (CKD) Sodium Chloride (SODIUM CHLORIDE 0.9%) 99 MLIpratropium [place] (ATROVENT) 500 MCG Q4H INH (DC) Magnesium Sulfate (MAGNESIUM SULFATE 4GM/SWFI 100ML) 100 ML ASDIR PRN IV Magnesium Sulfate (MAGNESIUM SULFATE 2GM/SWFI 50ML) 50 ML ASDIR PRN IV Magnesium Sulfate/Dextrose (MAGNESIUM SULFATE 1GM/D5W 100ML) 100 ML ASDIR PRN IV Nitroglycerin/Dextrose (NITROGLYCERIN 50,000MCG/D5W 250ML) 250 ML ASDIR IV Norepinephrine Bitartrate (NOREPINEPHRINE 8 MG/NS 250 ML) 250 ML TITRATE IV Ondansetron HCl (ZOFRAN) 4 MG Q6H PRN PRN IV Potassium Chloride (KCL 20MEQ/SWFI 100ML) 100 ML ASDIR PRN IV Sodium Bicarbonate (SODIUM BICARBONATE) 50 MEQ ASDIR PRN IV Sodium Chloride (SODIUM CHLORIDE 0.9%) 1,000 ML .Q20H IV Sodium Chloride (SODIUM CHLORIDE 0.9%) 250 ML Q24H IV Melatonin (Melatonin) 6 MG BEDTIME PRN PRN PO Hydralazine HCl (APRESOLINE) 10 MG Q6H PRN PRN IV Physical ExamGeneral appearance: alert, awake, orientedHead/Eyes: EOMI, PERRLANeck: non-tender, no JVDCardiovascular: irregular rhythm, normal heart soundsRespiratory: aerating well, clear to auscultationAbdomen: non-tender, softExtremities: Extremities: edema, moves allNeuro/TEAROOM HOST/HOSTESS: alert, oriented x 3, CNII-XII intact ResultsFindings/Data:Laboratory Tests 08/12/22 1056:[Embedded Image Not Available] 08/12/22 0145:[Embedded Image Not Available]Laboratory Tests 08/12 0338 Blood Gas Puncture Site Art Line O2 Saturation (90 - 100 %) 98.8 ABG pH (7.35 - 7.45) 7.372 ABG pCO2 (35.0 - 45 mmHg) 41.6 ABG pO2 (80 - 100.0 mmHg) 128.6 H ABG PO2/FiO2 Ratio (mm/Hg) 285.77 ABG HCO3 (22.0 - 26.0 MMOL/L) 24.2 ABG Total CO2 25.4 ABG Base Excess (-4.0 - 4.0 MMOL/L) -1.1 ABG Hematocrit (37.5 - 50.7 %) 29 L ABG Hemoglobin (12.5 - 16.9 G/DL) 9.9 L Sodium (134 - 147 mmol/L) 139 Potassium (3.4 - 5.0 mmol/L) 4.0 Chloride (100 - 108 mmol/L) 104 Ionized Calcium (1.12 - 1.32 MMOL/L) 1.20 Lactic Acid (0.9 - 1.7 mmol/l) 0.8 L O2 Delivery Device BiPAP Vent Rate (/MIN) 14 FiO2 (%) 45 Laboratory Tests 08/12 08/12 08/12 08/12 08/12 1056 0924 0338 0145 0145Chemistry Sodium (134 - 147 mEq/L) 136 138 Potassium (3.4 - 5.0 mEq/L) 4.0 3.6 Chloride (100 - 108 mEq/L) 103 105 Carbon Dioxide (21 - 33 mEq/l) 24 25 Anion Gap (0 - 20) 13 12 BUN (7 - 18 mg/dL) 29 H 26 H Creatinine (0.6 - 1.3 mg/dL) 2.2 H 1.9 H POC Creatinine (0.8 - 1.3 mg/dL) 1.7 H Glomerular Filtr Rate (70 - 80) 29.5 L 35.2 L Glucose (70 - 110 mg/dL) 187 H 206 H POC Glucose (70 - 110 MG/DL) 114 H POC Glucose (mg/dL) (70 - 110 MG/DL) 146 H Calcium (8.0 - 10.5 mg/dL) 8.7 8.6 Ionized Calcium Suzanna (1.09 - 1.30 MMOL/L) 1.16 Phosphorus (2.5 - 4.9 MG/DL) 3.1 3.1 Magnesium (1.80 - 2.40 mg/dL) 2.16 Total Bilirubin (0.0 - 1.0 mg/dL) 0.30 Direct Bilirubin (0.0 - 0.30 MG/DL) 0.20 Indirect Bilirubin (MG/DL) 0.10 AST (15 - 37 IUnit/L) 29 ALT (30 - 65 IUnit/L) < 7 L Total Alk Phosphatase (20 - 125 IUnit/L) 57 Total Protein (6.4 - 8.2 g/dL) 5.7 L Albumin (3.4 - 5.0 g/dL) 3.90 3.80 Laboratory Tests 08/12 0145 Hematology WBC (4.5 - 11.0 x10 3/uL) 12.2 H RBC (4.00 - 5.60 x10 6/uL) 3.06 L Hgb (12.5 - 16.9 g/dL) 9.3 L Hct (37.5 - 50.7 %) 28.5 L MCV (81.0 - 99.0 fL) 93.1 MCH (27.0 - 33.0 pg) 30.4 MCHC (33.0 - 37.0 g/dL) 32.6 L RDW (11.5 - 14.5 %) 13.4 Plt Count (150 - 400 x10 3/uL) 97 L MPV (7.0 - 9.0 fL) 10.8 H Neut % (Auto) (56.0 - 77.0 %) 80.0 H Lymph % (Auto) (14.0 - 32.0 %) 10.5 L [place] % (Auto) (4.8 - 9.0 %) 8.6 Eos % (Auto) (0.3 - 3.7 %) 0.0 L Baso % (Auto) (0.0 - 2.0 %) 0.2 Neut # (Auto) (2.0 - 7.6 x10 3/uL) 9.73 H Lymph # (Auto) (1.0 - 3.8 x10 3/uL) 1.27 [place] # (Auto) (0.1 - 0.8 x10 3/uL) 1.05 H Eos # (Auto) (0.0 - 0.2 x10 3/uL) 0.00 Baso # (Auto) (0.0 - 0.2 x10 3/uL) 0.02 Abs Immat Gran (auto) (0.00 - 0.03 x10 3/uL) 0.08 H Add Manual Diff NO Immature Gran % (0.0 - 2.0 %) 0.7 Nucleated RBC % (0 - 0 %) 0.0 Nucleated RBCs # (Man) (0.0 - 0.1 x10 3/uL) 0.00 Radiology data:Recent Impressions:RADIOLOGY - XR CHEST 1 V 08/12 7412 Report Impression - Status: SIGNED Entered: 08/12/2022 0951 IMPRESSION: 1. Minimal left apical pneumothorax. Moderate left pleural effusion subjectively enlarged. 2. Bibasilar atelectasis versus airspace disease. 3. Stable postoperative cardiomediastinal silhouette. Impression By: Aretha Awad M.D. Treatment Prophylaxis Treatment ProphylaxisDrain(s)/tube(s): Drain(s)/tube(s): chest, urinary catheter Diagnosis, Assessment PlanHospital course to date:82-year-old male with past medical history of hypertension, atrial fibrillation,supraventricular tachycardia status post ablation who was admitted with reports of multivessel coronary artery disease found on a cardiac catheterization done at [facility]. Patient was transferred to [facility] for CABG. 1. Coronary artery disease-Status post CABG x5, ALAA, PVI-Continue metoprolol, Plavix, aspirin-Chest tubes in place and draining- 2. Atrial fibrillation-Continue IV amiodarone for rate control-Continue metoprolol-Monitor and review telemetry 3. Debility-.-PT/OT 4. ARF- cr 1.3-1.9-2.2- post op, post lasix therefore likely pre-renal- baseline CKD is suspected- nephro consulted dispo: possible INPT REHAB- discussed with Pts daughter in detailstotal time spent 35minsProblem List/A P: 1. S/P CABG x 5 2. CAD (coronary artery disease) 3. Postoperative pulmonary dysfunction after cardiac surgery 4. HTN (hypertension) Consultants: cardiology, cardiovascular surgery at 2157 RPT #:[id number] OF REPORTPRProgress [id number]:51:00G.[id number] for patient [id number]:58:14 [facility] 2022-08-12 11:09:00 [id number]/O8 [id number]:09:00 [facility] ([facility])Cardiology Progress NoteREPORT#:[id number] REPORT STATUS: SignedDATE:08/12/22 TIME: 1109 PATIENT: BRENNAN AHN UNIT #: [id number]#: [id number] [address] [birth year] AGE: 82 SEX: M ATTEND: Salazar Hurd [facility] AUTHOR: Guera Marion NP * ALL edits or amendments must be made on the electronic/computer document * SubjectiveChief complaint:sitting in chair Objective GeneralVS/I O:Laboratory Tests 08/12/22 0145:[Embedded Image Not Available] 08/11/22 0213:[Embedded Image Not Available] 08/10/22 1600:[Embedded Image Not Available]Current Medications Sig/Ariana Start time Last Medication Dose Route Stop Time Status Admin Ipratropium [place] 500 MCG Q2H PRN PRN 08/13 1441 AC INH 09/12 1440 Cyanocobalamin 500 MCG DAILY 08/13 0900 AC PO 09/12 0859 Ferrous Sulfate 325 MG DAILY 08/13 0900 AC PO 09/12 0859 Bisacodyl 10 MG ONCE PRN 08/12 1200 AC RECTAL 09/11 1159 Magnesium Hydroxide 30 ML ONCE PRN 08/12 1200 DC 08/12 PO 1041 Ipratropium [place] 500 MCG RTQ4H 08/12 0800 AC 08/12 INH 09/11 0759 0806 Metoprolol Tartrate 2.5 MG ONCE ONE 08/12 0515 DC 08/12 IV 08/12 0516 0532 Amiodarone HCl 100 ML STAT STA 08/12 0123 DC 08/12 IV 08/12 0132 0133 Furosemide 40 MG ONCE ONE 08/12 0100 DC 08/12 IV 08/12 0101 0109 Hydralazine HCl 10 MG ONCE ONE 08/12 0015 DC 08/12 IV 08/12 0016 0019 Furosemide 20 MG ONCE 08/11 2200 DC 08/11 IV 08/11 2359 2125 Furosemide 20 MG STAT STA 08/11 1643 DC 08/11 IV 08/11 1644 1651 Dopamine HCl/Dextrose 250 ML ASDIR 08/11 1445 AC 08/11 IV 09/10 1444 1444 Albumin Human 250 ML STAT STA 08/11 1155 DC 08/11 IV 08/11 1224 1210 Tramadol HCl 50 MG Q4H PRN PRN 08/11 0930 AC 08/11 PO 08/16 0929 0925 Clopidogrel Bisulfate 75 MG DAILY 08/11 09 AC 08/12 PO 09/10 0859 1042 Polyethylene Glycol 17 GM DAILY 08/11 09 AC 08/12 PO 09/10 0859 1043 Amiodarone HCl 450 MG ASDIR 08/11 0745 CKD 08/12 Dextrose/Water 250 ML IV 09/10 0744 0642 Pantoprazole 40 MG DAILY@0600 08/11 0600 AC 08/12 PO 09/10 0559 0524 Docusate Sodium 100 MG BID 08/10 2099 AC 08/12 PO 09/09 2058 1044 Metoprolol Tartrate 12.5 MG Q12HR 08/10 2099 AC 08/12 PO 09/09 2058 1043 Mupirocin 1 APPLIC BID 08/10 2099 AC 08/12 NASAL 08/15 0901 1043 Sennosides 17.2 MG BEDTIME 08/10 2099 AC 08/11 PO 09/09 2058 1934 Aspirin 81 MG DAILY 08/10 2041 AC 08/12 PO 09/09 2040 1042 Amiodarone HCl 200 MG TID 08/10 1500 AC 08/12 PO 09/09 1459 1043 Acetaminophen 650 MG Q4H PRN PRN 08/10 1445 AC 08/12 PO 09/09 1444 1044 Acetaminophen 650 MG Q4H PRN PRN 08/10 1445 AC RECTAL 09/09 1444 Albumin Human 25 GM ASDIR PRN 08/10 1445 DC 08/11 IV 08/11 1441 0851 Calcium Chloride 1 GM ASDIR PRN 08/10 1445 AC IV 09/09 1444 Dextrose/Water 125 ML ASDIR PRN 08/10 1445 CKD IV 09/09 1444 Dextrose/Water 250 ML ASDIR PRN 08/10 1445 CKD IV 09/09 1444 Epinephrine 4 MG ASDIR 08/10 1445 AC Dextrose/Water 246 ML IV 09/09 1444 Glucagon 1 MG ASDIR PRN 08/10 1445 AC IM 09/09 1444 Insulin Human Regular 100 UNIT ASDIR 08/10 1445 CKD Sodium Chloride 99 ML IV 09/09 1444 Ipratropium [place] 500 MCG Q4H 08/10 1445 DC 08/12 INH 08/13 1441 0318 Magnesium Sulfate 100 ML ASDIR PRN 08/10 1445 AC IV 09/09 1444 Magnesium Sulfate 50 ML ASDIR PRN 08/10 1445 AC IV 09/09 1444 Magnesium Sulfate/ 100 ML ASDIR PRN 08/10 1445 AC 08/12 Dextrose IV 09/09 1444 0253 Nitroglycerin/ 250 ML ASDIR 08/10 1445 AC Dextrose IV 09/09 1444 Norepinephrine 250 ML TITRATE 08/10 1445 AC Bitartrate IV 09/09 1444 Ondansetron HCl 4 MG Q6H PRN PRN 08/10 1445 AC IV 09/09 1444 Potassium Chloride 100 ML ASDIR PRN 08/10 1445 AC 08/12 IV 09/09 1444 0253 Sodium Bicarbonate 50 MEQ ASDIR PRN 08/10 1445 AC IV 09/09 1444 Sodium Chloride 1,000 ML .Q20H 08/10 1445 AC 08/11 IV 09/09 1444 0753 Sodium Chloride 250 ML Q24H 08/10 1445 AC IV 09/09 1444 Melatonin 6 MG BEDTIME PRN PRN 08/10 0015 AC 08/10 PO 09/09 0014 0022 Hydralazine HCl 10 MG Q6H PRN PRN 08/09 1930 AC 08/09 IV 09/08 1929 2208 24 hour I O ending at 0700: 08/12 0700 08/11 1900 Intake Total 626.00 3105.00 Output Total 1740 380 Balance -1114.00 2725.00 Intake, IV 526.00 1665.00 Intake, Oral 100 960 Intake, Oral 480 Supplement Output, Chest 190 115 Tube Drainage Output, Urine 1550 265 Patient 102.2 kg 100.244 kg Weight Weight Bed scale Measurement Method Vital Signs: Date Time Temp Pulse Resp B/P B/P Pulse O2 O2 Flow FiO2 Mean Ox Delivery Rate 08/12 0806 96 High flow 1 nasal cannula 08/12 0800 144/49 70 03/11 0800 93 30 125/58 83 98 03/11 0745 160/53 77 03/11 0745 93 39 132/65 92 100 03/11 0730 166/53 77 03/11 0730 85 17 122/58 84 100 03/11 0715 153/52 74 03/11 0715 86 17 115/57 81 100 03/11 0700 142/49 70 03/11 0700 86 35 118/57 82 99 03/11 0645 88/56 67 03/11 0645 87 21 107/53 74 100 03/11 0630 109/46 63 03/11 0630 87 31 113/54 78 100 03/11 0615 139/54 76 03/11 0615 90 42 130/60 87 98 03/11 0600 91 37 115/48 68 03/11 0545 164/59 85 03/11 0545 77 34 129/65 91 100 03/11 0530 188/65 96 03/11 0530 88 32 175/76 109 100 03/11 0515 171/63 93 03/11 0515 92 37 141/78 104 100 03/11 0500 177/57 86 03/11 0500 81 17 155/71 102 100 03/11 0445 181/61 91 03/11 0445 92 19 147/69 99 100 03/11 0430 178/60 89 03/11 0430 88 14 151/70 101 100 03/11 0415 173/58 85 03/11 0415 84 21 142/65 94 100 03/11 0400 160/54 79 03/11 0400 83 32 129/60 86 100 03/11 0345 166/58 85 03/11 0345 93 37 133/66 94 100 03/11 0330 83 17 146/69 99 100 03/11 0320 84 100 40 03/11 0320 100 BiPAP 50 03/11 0315 102/99 100 03/11 0315 86 21 159/72 103 100 03/11 0300 83/78 80 03/11 0300 93 24 132/60 86 100 03/11 0245 81/76 80 03/11 0245 85 16 138/65 93 100 03/11 0230 132/68 91 03/11 0230 81 14 135/63 91 100 03/11 0215 159/58 83 03/11 0215 81 14 144/65 93 100 03/11 0200 157/54 77 03/11 0200 80 38 134/60 86 100 03/11 0145 120/41 58 03/11 0145 82 41 112/55 79 92 03/11 0130 111/54 71 03/11 0130 111 37 126/59 85 98 03/11 0115 140/48 69 03/11 0115 91 25 125/57 82 100 03/11 0100 154/56 80 03/11 0100 98 39 148/70 100 100 03/11 0045 158/51 75 03/11 0045 82 21 141/63 91 99 03/11 0030 153/50 73 03/11 0030 82 22 134/63 90 100 03/11 0015 179/61 91 03/11 0015 83 29 157/73 105 100 03/11 0005 83 34 168/78 112 100 03/11 0001 83 100 40 03/11 0001 100 BiPAP 40 03/11 0000 142/61 85 03/11 0000 95 33 151/78 103 94 03/10 2345 167/61 89 03/10 2345 78 16 149/68 98 93 03/10 2330 175/63 95 03/10 2330 104 14 162/76 109 90 03/10 2315 165/55 84 03/10 2315 71 27 152/67 97 92 03/10 2300 163/57 87 03/10 2300 68 16 146/67 99 92 03/10 2245 177/56 87 03/10 2245 68 14 149/71 102 93 03/10 2230 174/53 84 03/10 2230 68 15 149/70 100 94 03/10 2215 175/55 85 03/10 2215 68 15 145/62 96 94 03/10 2200 128/73 94 03/10 2200 68 17 142/66 96 93 03/10 2145 154/56 83 03/10 2145 68 22 145/68 98 92 03/10 2130 160/50 77 03/10 2130 71 35 131/60 90 96 03/10 2115 66 24 116/88 101 93 03/10 2100 138/70 91 03/10 2100 68 34 145/66 95 93 03/10 2047 98 Room air 21 03/10 2045 159/68 90 03/10 2045 69 38 138/65 93 93 03/10 2030 177/63 86 03/10 2030 66 16 134/63 90 93 03/10 2015 167/50 79 03/10 2015 66 18 128/60 88 94 03/10 1999 162/48 77 03/10 1999 66 23 131/61 88 92 03/10 1945 154/46 72 03/10 1945 70 40 136/63 91 97 03/10 1931 140/65 94 03/10 1930 68 40 149/46 72 94 03/10 1915 96/83 88 03/10 1915 71 36 137/63 91 96 03/10 1900 36.6 03/10 1900 142/51 80 03/10 1900 66 14 144/64 96 92 03/10 1830 151/44 70 03/10 1830 65 17 134/64 92 94 03/10 1815 152/44 70 03/10 1815 64 14 140/67 96 95 03/10 1800 145/43 70 03/10 1800 65 14 136/63 91 94 03/10 1745 161/42 69 03/10 1745 66 15 140/64 92 95 03/10 1730 148/38 62 03/10 1730 66 16 133/63 91 95 03/10 1715 147/35 60 03/10 1715 67 34 130/58 84 96 03/10 1700 131/36 59 03/10 1700 68 35 115/56 80 96 03/10 1645 136/42 65 03/10 1645 65 37 117/56 80 86 03/10 1630 149/39 66 03/10 1630 66 32 131/60 87 96 03/10 1617 139/36 61 03/10 1617 66 33 125/58 83 94 03/10 1600 139/38 62 03/10 1600 65 35 122/65 88 96 03/10 1545 131/33 55 03/10 1545 60 15 120/57 82 94 03/10 1530 117/40 63 03/10 1530 69 44 132/59 85 93 03/10 1515 129/33 54 03/10 1515 61 19 112/57 81 96 03/10 1500 135/34 56 03/10 1500 36.6 61 30 121/58 83 97 03/10 1445 118/35 57 03/10 1445 64 32 114/57 82 100 03/10 1430 123/39 62 03/10 1430 65 25 109/59 82 99 03/10 1415 125/38 60 03/10 1415 64 35 107/54 74 99 03/10 1404 133/40 63 03/10 1404 65 33 118/56 80 99 03/10 1345 82/47 62 03/10 1345 63 48 109/59 80 98 03/10 1330 136/39 63 03/10 1330 63 27 112/55 79 100 03/10 1316 98/31 53 03/10 1316 68 35 113/59 77 100 03/10 1300 125/37 60 03/10 1300 62 18 110/56 79 100 03/10 1245 112/38 58 03/10 1245 63 42 97/54 71 99 03/10 1230 113/40 61 03/10 1230 63 43 97/59 71 100 03/10 1215 106/37 57 03/10 1215 61 38 104/52 74 98 03/10 1201 87/30 50 03/10 1201 66 28 115/52 75 78 03/10 1145 122/42 61 03/10 1145 59 13 108/58 79 98 03/10 1131 119/40 59 03/10 1131 60 18 110/55 79 100 03/10 1115 111/42 60 03/10 1115 61 12 93/55 71 100 PATIENT WEIGHT: Weight (lb): 225Weight (oz): 5Weight (kg): 102.200 Physical ExamGeneral appearance: alert, awake, oriented, no acute distressHead/Eyes: atraumatic, PERRLCardiovascular: CV assessment: irregularly irregularRespiratory: rhonchiAbdomen: soft, non-tender, normal bowel sounds, no distentionLower extremity: LE assessment: edema, normal capillary refill, normal temperatureNeuro/TEAROOM HOST/HOSTESS: alert, oriented X 3Skin: poor skin turgor ResultsRadiology data:Recent Impressions:RADIOLOGY - XR CHEST 1 V 08/12 0717 Report Impression - Status: SIGNED Entered: 08/12/2022 0951 IMPRESSION: 1. Minimal left apical pneumothorax. Moderate left pleural effusion subjectively enlarged. 2. Bibasilar atelectasis versus airspace disease. 3. Stable postoperative cardiomediastinal silhouette. Impression By: Aretha Awad M.D. Treatment Prophylaxis Treatment ProphylaxisDrain(s)/tube(s): Drain(s)/tube(s): chest, urinary catheter Diagnosis, Assessment PlanConsultants: cardiology, cardiovascular surgery Free Text DxA P NotesFree Text DxA P Notes:1. CAD s/pCABG x 5 (NGUYEN-LAD, SVG-Olga Lidia, SVG-OM, SVG-LPLA, SVG-PDA) continue asa, bb, plavixcreatinine trending up-monitoron dopamine gtt post-op per CTSmonitor 2. A-fib: Paroxysmals/p PVI and ARISTEO amputationon amiodarone, bb 3. HTNmonitor post-op at 1114 at 1058 RPT #:[id number] OF REPORTPRProgress [id number]:09:00G.[id number] for patient [id number]:15:08 [facility] 2022-08-12 10:33:00 [id number]++[id number]+[id number] [id number]:33:00 [facility] ([facility])Critical Care Progress NoteREPORT#:[id number] REPORT STATUS: SignedDATE:08/12/22 TIME: 1033 PATIENT: BRENNAN AHN UNIT #: [id number]#: [id number] ROOM/BED: 2202-1DOB: [birth year] AGE: 82 SEX: M ATTEND: Salazar Hurd [facility] AUTHOR: Breezy Nance MD * ALL edits or amendments must be made on the electronic/computer document * SubjectiveChief complaint:CABGHPI:82-year-old male with history of hypertension, A-fib on Eliquis, SVT s/p ablation, CKD and possible Alzheimer disease, who presented with chest pain and found to have multivessel coronary artery disease on cardiac cath. Patient underwent CABG x5 today on 08/10/2022. Has LVH with preserved EF. Crystalloid 1 L,Cell Saver 425, urine output 350. Surgery went well and patient was transferred to CVICU postop in a stable surgical condition. He is currently intubated on 4 mics of Levophed, 2 mics of epinephrine and insulin drip. Comments:Developed A-fib with RVRNo SOBAfebrileImproved urine output with LasixIncreased chest tube output after walkingChest x-ray shows small left apical pneumothorax and moderate left pleural effusionWorsening creatinine from 1.9-2.2Echo is done and results are pendingImproved heart rate after stopping dopamine Review of Systems Free Text ROS NotesFree Text ROS Notes:12 point Review of Systems was performed to the extent possible including discussion with the nursing staff and review of vital signs and all data. All systems negative other than pertinent negative/positive findings mentioned in the interval history section. Objective GeneralVS/I OLast Documented: Result Date Time Pulse Ox 96 08/12 1501 B/P 105/90 08/12 1501 B/P Mean 95 08/12 1501 Pulse 83 08/12 1501 Resp 35 08/12 1501 FiO2 21 08/12 1216 O2 Delivery Room air 08/12 1216 O2 Flow Rate 1 08/12 0806 Temp 36.6 08/11 1900 24 hour I O ending at 0700: 08/12 0700 08/11 1900 Intake Total 626.00 3105.00 Output Total 1740 380 Balance -1114.00 2725.00 Intake, IV 526.00 1665.00 Intake, Oral 100 960 Intake, Oral 480 Supplement Output, Chest 190 115 Tube Drainage Output, Urine 1550 265 Patient 102.2 kg 100.244 kg Weight Weight Bed scale Measurement Method PATIENT WEIGHT: Weight (lb): 225Weight (oz): 5Weight (kg): 102.200 Medications:Active Meds + DC'd Last 24 HrsIpratropium [place] (ATROVENT) 500 MCG Q2H PRN PRN INH Cyanocobalamin (Vitamin B-12 500 mcg tab) 500 MCG DAILY PO Ferrous Sulfate (FERROUS SULFATE) 325 MG DAILY PO Bisacodyl (DULCOLAX) 10 MG ONCE PRN RECTAL Magnesium Hydroxide (MILK OF MAGNESIA) 30 ML ONCE PRN PO Ipratropium [place] (ATROVENT) 500 MCG RTQ4H INH Metoprolol Tartrate (LOPRESSOR) 2.5 MG ONCE ONE IV (DC) Amiodarone HCl (NEXTERONE 150MG/D5W 100ML) 100 ML STAT STA IV (DC) Furosemide (LASIX 40 mg/4 mL INJECTION) 40 MG ONCE ONE IV (DC) Hydralazine HCl (APRESOLINE) 10 MG ONCE ONE IV (DC) Furosemide (LASIX 20MG INJ) 20 MG ONCE IV (DC) Furosemide (LASIX 20MG INJ) 20 MG STAT STA IV (DC) Dopamine HCl/Dextrose (DOPamine 400MG/D5W 250ML) 250 ML ASDIR IV Albumin Human (ALBUMINAR 5% 12.5GM/250ML) 250 ML STAT STA IV (DC) Tramadol HCl (ULTRAM) 50 MG Q4H PRN PRN PO Clopidogrel Bisulfate (Plavix) 75 MG DAILY PO Polyethylene Glycol (MIRALAX) 17 GM DAILY PO Amiodarone HCl (AMIODARONE HCL) 450 MG ASDIR IV (CKD) Dextrose/Water (D5%W NON-DEHP) 250 MLPantoprazole (PROTONIX) 40 MG DAILY@0600 PO Docusate Sodium (COLACE) 100 MG BID PO Metoprolol Tartrate (LOPRESSOR) 12.5 MG Q12HR PO Mupirocin (BACTROBAN 2% 22 GM OINTMENT) 1 APPLIC BID NASAL Sennosides (Senna Lax 8.6 MG TABLET) 17.2 MG BEDTIME PO Aspirin (ASPIRIN) 81 MG DAILY PO Amiodarone HCl (CORDARONE) 200 MG TID PO Acetaminophen (TYLENOL) 650 MG Q4H PRN PRN PO Acetaminophen (TYLENOL) 650 MG Q4H PRN PRN RECTAL Albumin Human (ALBUMINAR 25%) 25 GM ASDIR PRN IV (DC) Calcium Chloride (CALCIUM CHLORIDE) 1 GM ASDIR PRN IV Cefazolin Sodium (KEFZOL OR ANCEF) 6 GM ONCE ONE IV (DC) Sodium Chloride (SODIUM CHLORIDE 0.9%) 500 MLDextrose/Water (DEXTROSE 10% IN WATER) 125 ML ASDIR PRN IV (CKD) Dextrose/Water (DEXTROSE 10% IN WATER) 250 ML ASDIR PRN IV (CKD) Epinephrine (ADRENALIN CHLORIDE) 4 MG ASDIR IV Dextrose/Water (DEXTROSE 5% WATER) 246 MLGlucagon (GLUCAGON) 1 MG ASDIR PRN IM Insulin Human Regular (HumuLIN R) 100 UNIT ASDIR IV (CKD) Sodium Chloride (SODIUM CHLORIDE 0.9%) 99 MLIpratropium [place] (ATROVENT) 500 MCG Q4H INH (DC) Magnesium Sulfate (MAGNESIUM SULFATE 4GM/SWFI 100ML) 100 ML ASDIR PRN IV Magnesium Sulfate (MAGNESIUM SULFATE 2GM/SWFI 50ML) 50 ML ASDIR PRN IV Magnesium Sulfate/Dextrose (MAGNESIUM SULFATE 1GM/D5W 100ML) 100 ML ASDIR PRN IV Nitroglycerin/Dextrose (NITROGLYCERIN 50,000MCG/D5W 250ML) 250 ML ASDIR IV Norepinephrine Bitartrate (NOREPINEPHRINE 8 MG/NS 250 ML) 250 ML TITRATE IV Ondansetron HCl (ZOFRAN) 4 MG Q6H PRN PRN IV Potassium Chloride (KCL 20MEQ/SWFI 100ML) 100 ML ASDIR PRN IV Sodium Bicarbonate (SODIUM BICARBONATE) 50 MEQ ASDIR PRN IV Sodium Chloride (SODIUM CHLORIDE 0.9%) 1,000 ML .Q20H IV Sodium Chloride (SODIUM CHLORIDE 0.9%) 250 ML Q24H IV Melatonin (Melatonin) 6 MG BEDTIME PRN PRN PO Hydralazine HCl (APRESOLINE) 10 MG Q6H PRN PRN IV ResultsFindings/data:Laboratory Tests 08/12 0338 Blood Gas Puncture Site Art Line O2 Saturation (90 - 100 %) 98.8 ABG pH (7.35 - 7.45) 7.372 ABG pCO2 (35.0 - 45 mmHg) 41.6 ABG pO2 (80 - 100.0 mmHg) 128.6 H ABG PO2/FiO2 Ratio (mm/Hg) 285.77 ABG HCO3 (22.0 - 26.0 MMOL/L) 24.2 ABG Total CO2 25.4 ABG Base Excess (-4.0 - 4.0 MMOL/L) -1.1 ABG Hematocrit (37.5 - 50.7 %) 29 L ABG Hemoglobin (12.5 - 16.9 G/DL) 9.9 L Sodium (134 - 147 mmol/L) 139 Potassium (3.4 - 5.0 mmol/L) 4.0 Chloride (100 - 108 mmol/L) 104 Ionized Calcium (1.12 - 1.32 MMOL/L) 1.20 Lactic Acid (0.9 - 1.7 mmol/l) 0.8 L O2 Delivery Device BiPAP Vent Rate (/MIN) 14 FiO2 (%) 45 Laboratory Tests 08/12 08/12 08/12 08/12 0924 0338 0145 0145 Chemistry Sodium (134 - 147 mEq/L) 138 Potassium (3.4 - 5.0 mEq/L) 3.6 Chloride (100 - 108 mEq/L) 105 Carbon Dioxide (21 - 33 mEq/l) 25 Anion Gap (0 - 20) 12 BUN (7 - 18 mg/dL) 26 H Creatinine (0.6 - 1.3 mg/dL) 1.9 H POC Creatinine (0.8 - 1.3 mg/dL) 1.7 H Glomerular Filtr Rate (70 - 80) 35.2 L Glucose (70 - 110 mg/dL) 206 H POC Glucose (70 - 110 MG/DL) 114 H POC Glucose (mg/dL) (70 - 110 MG/DL) 146 H Calcium (8.0 - 10.5 mg/dL) 8.6 Ionized Calcium Suzanna (1.09 - 1.30 MMOL/L) 1.16 Phosphorus (2.5 - 4.9 MG/DL) 3.1 Magnesium (1.80 - 2.40 mg/dL) 2.16 Total Bilirubin (0.0 - 1.0 mg/dL) 0.30 Direct Bilirubin (0.0 - 0.30 MG/DL) 0.20 Indirect Bilirubin (MG/DL) 0.10 AST (15 - 37 IUnit/L) 29 ALT (30 - 65 IUnit/L) < 7 L Total Alk Phosphatase (20 - 125 IUnit/L) 57 Total Protein (6.4 - 8.2 g/dL) 5.7 L Albumin (3.4 - 5.0 g/dL) 3.80 Laboratory Tests 08/12 0145 Hematology WBC (4.5 - 11.0 x10 3/uL) 12.2 H RBC (4.00 - 5.60 x10 6/uL) 3.06 L Hgb (12.5 - 16.9 g/dL) 9.3 L Hct (37.5 - 50.7 %) 28.5 L MCV (81.0 - 99.0 fL) 93.1 MCH (27.0 - 33.0 pg) 30.4 MCHC (33.0 - 37.0 g/dL) 32.6 L RDW (11.5 - 14.5 %) 13.4 Plt Count (150 - 400 x10 3/uL) 97 L MPV (7.0 - 9.0 fL) 10.8 H Neut % (Auto) (56.0 - 77.0 %) 80.0 H Lymph % (Auto) (14.0 - 32.0 %) 10.5 L [place] % (Auto) (4.8 - 9.0 %) 8.6 Eos % (Auto) (0.3 - 3.7 %) 0.0 L Baso % (Auto) (0.0 - 2.0 %) 0.2 Neut # (Auto) (2.0 - 7.6 x10 3/uL) 9.73 H Lymph # (Auto) (1.0 - 3.8 x10 3/uL) 1.27 [place] # (Auto) (0.1 - 0.8 x10 3/uL) 1.05 H Eos # (Auto) (0.0 - 0.2 x10 3/uL) 0.00 Baso # (Auto) (0.0 - 0.2 x10 3/uL) 0.02 Abs Immat Gran (auto) (0.00 - 0.03 x10 3/uL) 0.08 H Add Manual Diff NO Immature Gran % (0.0 - 2.0 %) 0.7 Nucleated RBC % (0 - 0 %) 0.0 Nucleated RBCs # (Man) (0.0 - 0.1 x10 3/uL) 0.00 Laboratory Tests 08/12/22 0145:[Embedded Image Not Available]Microbiology:08/09 1825 NASAL: MRSA DNA Surveillance Screen - ORD08/09 1701 NASAL: MSSA Surveillance Screen - COLB08/09 170 NASAL: MRSA DNA Surveillance Screen - COLB Radiology dataRecent Impressions:RADIOLOGY - XR CHEST 1 V 08/12 0717 Report Impression - Status: SIGNED Entered: 08/12/2022 0951 IMPRESSION: 1. Minimal left apical pneumothorax. Moderate left pleural effusion subjectively enlarged. 2. Bibasilar atelectasis versus airspace disease. 3. Stable postoperative cardiomediastinal silhouette. Impression By: Aretha Awad M.D. Free Text Obj NotesFree Text Obj Notes:GEN: Patient is calm and in no distress.NECK: Supple, no JVD or thrush. No adenopathy.LUNGS: Clear lungs, no wheezes, no rales or crackles.CV: Irregularly irregular, no murmurs are heard. No S3 or rubs. GI: Abdomen is soft, not tender. Bowel sounds are present.EXT/Musc: No edema. No clubbing or cyanosis noted. Skin is warm.NEURO: Awake, alert and oriented x 3. No focal findings. Treatment Prophylaxis Treatment ProphylaxisDrain(s)/tube(s): Drain(s)/tube(s): chest, urinary catheter Diagnosis, Assessment PlanProblem list/A P: 1. CAD (coronary artery disease) 2. Postoperative pulmonary dysfunction after cardiac surgery 3. S/P CABG x 5 Free text A P:82-year-old male with history of hypertension, A-fib on Eliquis, SVT s/p ablation, CKD and possible Alzheimer disease, who presented with chest pain and found to have multivessel coronary artery disease on cardiac cath. Patient underwent CABG x5 today on 08/10/2022. Has LVH with preserved EF. Crystalloid 1 L,Cell Saver 425, urine output 350. Surgery went well and patient was transferred to CVICU postop in a stable surgical condition. He is currently intubated on 4 mics of Levophed, 2 mics of epinephrine and insulin drip. Neuro: Appears intact, keep off sedation, multimodal pain controlRespiratory: Sats well, CPAP as tolerated, plan for extubation, ABG and CXR reviewedCardiovascular: HD unstable on vasopressors, attempt to wean, keep CTs to suctionRenal: strict I/Os, monitor Cr and electrolytes, LA clear, judicious resuscitationGI: bedside swallow then oral diet after extubation, bowel regimen, monitor LFTsID: reactive leukocytosis, trend WBC, continue periop antibiotics per protocolHem: acute blood loss anemia, monitor Hgb and CTs output, transfuse as neededEndo: Blood glucose control with insulin gtt per protocolMisc: PTOT consult, DVT and GI prophylaxis with DAPT and PPI 3/10Continue supplemental oxygen and titrate FiO2 to keep saturation more than 90%.Inhaled bronchodilators as neededIS and LVEPJudicious pain controlAspirin and PlavixAmiodarone p.o.MetoprololAmiodarone bolus and drip1 albumin bolus1 dose of Lasix 20 mgDopamine drip at 3 micsMonitor kidney function and trend creatinineMonitor and replete electrolytesStrict I O'sCardiac diet with bowel regimenBlood glucose control, sliding scale insulinVTE prophylaxis, DOAC'sStress ulcer prophylaxis, ProtonixDiscussed with ICU team and cardiac surgeryCritical care time 41 minutes 3/11Continue supplemental oxygen and titrate FiO2 to keep saturation more than 90%.Inhaled bronchodilators as neededIS and LVEPContinue monitoring chest tube output, increased output after walkingJudicious pain controlEchocardiogram is done, results are pendingAspirin and PlavixAmiodarone p.o.MetoprololAmiodarone bolus and dripOff dopamineHolding off on Lasix for now per nephrologyMonitor kidney function and trend creatinineMonitor and replete electrolytesStrict I O'sCardiac diet with bowel regimenBlood glucose control, sliding scale insulinVTE prophylaxis, DOAC'sStress ulcer prophylaxis, ProtonixDiscussed with ICU team, nephrology and cardiac surgeryCritical care time 39 minutes Consultants: cardiology, cardiovascular surgery at 1542 [facility] #:[id number] OF REPORTPRProgress [id number]:33:[id number] for patient [id number]:42:12 [facility] 2022-08-12 10:01:00 [id number]/VpOg6mxkvw [id number]:01:00 [facility])Cardiothoracic Surgery ProgREPORT#:[id number] REPORT STATUS: SignedDATE:08/12/22 TIME: 1001 PATIENT: BRENNAN AHN UNIT #: [id number]#: [id number] [address] [birth year] AGE: 82 SEX: M ATTEND: Salazar Hurd [facility] AUTHOR: Shiloh Pimentel BUILDING PRINCIPAL * ALL edits or amendments must be made on the electronic/computer document * GeneralPost-op: day 2Status post:08/10/22CABG x 5 (NGUYEN-LAD, SVG-Olga Lidia, SVG-OM, SVG-LPLA, SVG-PDA)PVIALAAEVH (RGSV) SubjectiveChief complaint:Follow-up CABG Review of SystemsConstitutional:Denies: fatigue, fever, generalized weakness, malaise. Skin:Denies: itching. Eyes:Denies: itching, diplopia, eye pain. ENT:Denies: nose bleeding, sore throat, throat pain, toothache. Respiratory:Denies: JANG (dyspnea on exertion), pneumonia, SOB. Cardiovascular:Denies: chest pain, palpitations. GI:Denies: abdominal pain, GERD, nausea, vomiting. Musculoskeletal:Denies: extremity pain, extremity swelling, joint pain. Heme:Denies: bleeding, bruising. Neuro:Denies: dizziness, headache, lightheaded, syncope. All systems rev neg: except as marked Objective GeneralVS/I OVital Signs Date Temp Pulse Resp B/P B/P Mean Pulse Ox FiO2 /-08/12 97.4-97.8 59-111 12-48 70-188/27-99 42-112 78-100 21-50 Last Documented: Result Date Time B/P 144/49 08/12 0800 B/P Mean 70 08/12 0800 Pulse Ox 98 08/12 0800 Pulse 93 08/12 0800 Resp 30 08/12 0800 FiO2 40 08/12 0320 O2 Delivery BiPAP 08/12 0320 Temp 97.8 08/11 1900 O2 Flow Rate 1 08/11 1999 24 hour I O ending at 0700: 08/12 0700 08/11 1900 Intake Total 626.00 3105.00 Output Total 1740 380 Balance -1114.00 2725.00 Intake, IV 526.00 1665.00 Intake, Oral 100 960 Intake, Oral 480 Supplement Output, Chest 190 115 Tube Drainage Output, Urine 1550 265 Patient 225 lb 221 lb Weight Weight Bed scale Measurement Method PATIENT WEIGHT: Weight (lb): 225Weight (oz): 5Weight (kg): 102.200 Physical ExamGeneral appearance: alert, oriented, mental status normal, no respiratory distressWound/incision: Location:sternal Site condition: dressing clean dry, dressing intactHEENT: anicteric, mucosal membranes moistNeck: full range of motion, non-tenderCardiovascular: BP/pulses equal bilat., regular rate rhythmRespiratory: aerating well, symmetric expansion, no distressAbdomen: soft, non-tender, no distentionGenitourinary: foleyExtremities: dry, moves allMusculoskeletal: full range of motionNeuro/TEAROOM HOST/HOSTESS: alert, oriented X 3Skin: dry, intactPsychiatry: anxious Current MedicationsMedications:Active Meds + DC'd Last 24 HrsIpratropium [place] (ATROVENT) 500 MCG Q2H PRN PRN INH Cyanocobalamin (Vitamin B-12 500 mcg tab) 500 MCG DAILY PO Ferrous Sulfate (FERROUS SULFATE) 325 MG DAILY PO Bisacodyl (DULCOLAX) 10 MG ONCE PRN RECTAL Magnesium Hydroxide (MILK OF MAGNESIA) 30 ML ONCE PRN PO Ipratropium [place] (ATROVENT) 500 MCG RTQ4H INH Metoprolol Tartrate (LOPRESSOR) 2.5 MG ONCE ONE IV (DC) Amiodarone HCl (NEXTERONE 150MG/D5W 100ML) 100 ML STAT STA IV (DC) Furosemide (LASIX 40 mg/4 mL INJECTION) 40 MG ONCE ONE IV (DC) Hydralazine HCl (APRESOLINE) 10 MG ONCE ONE IV (DC) Furosemide (LASIX 20MG INJ) 20 MG ONCE IV (DC) Furosemide (LASIX 20MG INJ) 20 MG STAT STA IV (DC) Dopamine HCl/Dextrose (DOPamine 400MG/D5W 250ML) 250 ML ASDIR IV Albumin Human (ALBUMINAR 5% 12.5GM/250ML) 250 ML STAT STA IV (DC) Tramadol HCl (ULTRAM) 50 MG Q4H PRN PRN PO Clopidogrel Bisulfate (Plavix) 75 MG DAILY PO Polyethylene Glycol (MIRALAX) 17 GM DAILY PO Amiodarone HCl (AMIODARONE HCL) 450 MG ASDIR IV (CKD) Dextrose/Water (D5%W NON-DEHP) 250 MLPantoprazole (PROTONIX) 40 MG DAILY@0600 PO Docusate Sodium (COLACE) 100 MG BID PO Metoprolol Tartrate (LOPRESSOR) 12.5 MG Q12HR PO Mupirocin (BACTROBAN 2% 22 GM OINTMENT) 1 APPLIC BID NASAL Sennosides (Senna Lax 8.6 MG TABLET) 17.2 MG BEDTIME PO Aspirin (ASPIRIN) 81 MG DAILY PO Amiodarone HCl (CORDARONE) 200 MG TID PO Acetaminophen (TYLENOL) 650 MG Q4H PRN PRN PO Acetaminophen (TYLENOL) 650 MG Q4H PRN PRN RECTAL Albumin Human (ALBUMINAR 25%) 25 GM ASDIR PRN IV (DC) Calcium Chloride (CALCIUM CHLORIDE) 1 GM ASDIR PRN IV Cefazolin Sodium (KEFZOL OR ANCEF) 6 GM ONCE ONE IV (DC) Sodium Chloride (SODIUM CHLORIDE 0.9%) 500 MLDextrose/Water (DEXTROSE 10% IN WATER) 125 ML ASDIR PRN IV (CKD) Dextrose/Water (DEXTROSE 10% IN WATER) 250 ML ASDIR PRN IV (CKD) Epinephrine (ADRENALIN CHLORIDE) 4 MG ASDIR IV Dextrose/Water (DEXTROSE 5% WATER) 246 MLGlucagon (GLUCAGON) 1 MG ASDIR PRN IM Insulin Human Regular (HumuLIN R) 100 UNIT ASDIR IV (CKD) Sodium Chloride (SODIUM CHLORIDE 0.9%) 99 MLIpratropium [place] (ATROVENT) 500 MCG Q4H INH (DC) Magnesium Sulfate (MAGNESIUM SULFATE 4GM/SWFI 100ML) 100 ML ASDIR PRN IV Magnesium Sulfate (MAGNESIUM SULFATE 2GM/SWFI 50ML) 50 ML ASDIR PRN IV Magnesium Sulfate/Dextrose (MAGNESIUM SULFATE 1GM/D5W 100ML) 100 ML ASDIR PRN IV Nitroglycerin/Dextrose (NITROGLYCERIN 50,000MCG/D5W 250ML) 250 ML ASDIR IV Norepinephrine Bitartrate (NOREPINEPHRINE 8 MG/NS 250 ML) 250 ML TITRATE IV Ondansetron HCl (ZOFRAN) 4 MG Q6H PRN PRN IV Potassium Chloride (KCL 20MEQ/SWFI 100ML) 100 ML ASDIR PRN IV Sodium Bicarbonate (SODIUM BICARBONATE) 50 MEQ ASDIR PRN IV Sodium Chloride (SODIUM CHLORIDE 0.9%) 1,000 ML .Q20H IV Sodium Chloride (SODIUM CHLORIDE 0.9%) 250 ML Q24H IV Melatonin (Melatonin) 6 MG BEDTIME PRN PRN PO Hydralazine HCl (APRESOLINE) 10 MG Q6H PRN PRN IV ResultsFindings/Data:Laboratory Tests 08/12 0338 Blood Gas Puncture Site Art Line O2 Saturation (90 - 100 %) 98.8 ABG pH (7.35 - 7.45) 7.372 ABG pCO2 (35.0 - 45 mmHg) 41.6 ABG pO2 (80 - 100.0 mmHg) 128.6 H ABG PO2/FiO2 Ratio (mm/Hg) 285.77 ABG HCO3 (22.0 - 26.0 MMOL/L) 24.2 ABG Total CO2 25.4 ABG Base Excess (-4.0 - 4.0 MMOL/L) -1.1 ABG Hematocrit (37.5 - 50.7 %) 29 L ABG Hemoglobin (12.5 - 16.9 G/DL) 9.9 L Sodium (134 - 147 mmol/L) 139 Potassium (3.4 - 5.0 mmol/L) 4.0 Chloride (100 - 108 mmol/L) 104 Ionized Calcium (1.12 - 1.32 MMOL/L) 1.20 Lactic Acid (0.9 - 1.7 mmol/l) 0.8 L O2 Delivery Device BiPAP Vent Rate (/MIN) 14 FiO2 (%) 45 Laboratory Tests 08/12 08/12 08/12 08/12 0924 0338 0145 0145 Chemistry Sodium (134 - 147 mEq/L) 138 Potassium (3.4 - 5.0 mEq/L) 3.6 Chloride (100 - 108 mEq/L) 105 Carbon Dioxide (21 - 33 mEq/l) 25 Anion Gap (0 - 20) 12 BUN (7 - 18 mg/dL) 26 H Creatinine (0.6 - 1.3 mg/dL) 1.9 H POC Creatinine (0.8 - 1.3 mg/dL) 1.7 H Glomerular Filtr Rate (70 - 80) 35.2 L Glucose (70 - 110 mg/dL) 206 H POC Glucose (70 - 110 MG/DL) 114 H POC Glucose (mg/dL) (70 - 110 MG/DL) 146 H Calcium (8.0 - 10.5 mg/dL) 8.6 Ionized Calcium Suzanna (1.09 - 1.30 MMOL/L) 1.16 Phosphorus (2.5 - 4.9 MG/DL) 3.1 Magnesium (1.80 - 2.40 mg/dL) 2.16 Total Bilirubin (0.0 - 1.0 mg/dL) 0.30 Direct Bilirubin (0.0 - 0.30 MG/DL) 0.20 Indirect Bilirubin (MG/DL) 0.10 AST (15 - 37 IUnit/L) 29 ALT (30 - 65 IUnit/L) < 7 L Total Alk Phosphatase (20 - 125 IUnit/L) 57 Total Protein (6.4 - 8.2 g/dL) 5.7 L Albumin (3.4 - 5.0 g/dL) 3.80 Laboratory Tests 08/12 014 Hematology WBC (4.5 - 11.0 x10 3/uL) 12.2 H RBC (4.00 - 5.60 x10 6/uL) 3.06 L Hgb (12.5 - 16.9 g/dL) 9.3 L Hct (37.5 - 50.7 %) 28.5 L MCV (81.0 - 99.0 fL) 93.1 MCH (27.0 - 33.0 pg) 30.4 MCHC (33.0 - 37.0 g/dL) 32.6 L RDW (11.5 - 14.5 %) 13.4 Plt Count (150 - 400 x10 3/uL) 97 L MPV (7.0 - 9.0 fL) 10.8 H Neut % (Auto) (56.0 - 77.0 %) 80.0 H Lymph % (Auto) (14.0 - 32.0 %) 10.5 L [place] % (Auto) (4.8 - 9.0 %) 8.6 Eos % (Auto) (0.3 - 3.7 %) 0.0 L Baso % (Auto) (0.0 - 2.0 %) 0.2 Neut # (Auto) (2.0 - 7.6 x10 3/uL) 9.73 H Lymph # (Auto) (1.0 - 3.8 x10 3/uL) 1.27 [place] # (Auto) (0.1 - 0.8 x10 3/uL) 1.05 H Eos # (Auto) (0.0 - 0.2 x10 3/uL) 0.00 Baso # (Auto) (0.0 - 0.2 x10 3/uL) 0.02 Abs Immat Gran (auto) (0.00 - 0.03 x10 3/uL) 0.08 H Add Manual Diff NO Immature Gran % (0.0 - 2.0 %) 0.7 Nucleated RBC % (0 - 0 %) 0.0 Nucleated RBCs # (Man) (0.0 - 0.1 x10 3/uL) 0.00 Radiology data:Recent Impressions:RADIOLOGY - XR CHEST 1 V 08/12 1217 Report Impression - Status: SIGNED Entered: 08/12/2022 0951 IMPRESSION: 1. Minimal left apical pneumothorax. Moderate left pleural effusion subjectively enlarged. 2. Bibasilar atelectasis versus airspace disease. 3. Stable postoperative cardiomediastinal silhouette. Impression By: Aretha Awad M.D. Treatment Prophylaxis Treatment ProphylaxisOxygen: nasal cannulaLines: arterial, CVC, peripheralDrain(s)/tube(s): Drain(s)/tube(s): chest, urinary catheter Diagnosis, Assessment PlanHospital course to date:82 year old with PMH of hypertension, atrial fibrillation, On Eliquis, Hx of SVT ablation 20 years ago transferred to [facility] with new findings of multi-vessel CAD. He reports he was woken from Sleep on Sunday AM with COmplaints of chest pains. EMS aas called and patient was taken to [facility]. He underwent LHC and found to have multi-vessel CAD by Dr Sanchez. Patient was transferred to [facility] for CABG. Patient lives independently. Daughter is at bedside. Patient reports last dose of Elliquis was Sunday AM. Echo was done at [facility] showing EF 55%, Mild MR, Mild AI, mild LVH. According to his records, he has a hx of Chronic kidney disease with baseline Creatine reportedly 1.5. He does report he has seen a renal MD in the past. Assessment/ Plan1) CAD, Mutli-vessel2) hypertension Continue BBLKR Add Norvasc 5 mg3) Atrial fibrillation. Last dose of Eliquis Sunday AM Obtain EKG4) BPH Continue flomax Workup for CABG underway. Patient was seen and examined by Dr Hurd. Coronary artery bypass surgery was discussed with the patient. The risk of the operation,including the STS score, cristian of blleding, infection, heart attack, stroke, Tracheostomy etc discussed with the patient. CT chest, carotid US, Vein mapping ordered. 08/11/22POD 1 s/p CABG x 5 (NGUYEN-LAD, SVG-Olga Lidia, SVG-OM, SVG-LPLA, SVG-PDA), PVI, ALAA, EVH (RGSV)Patient hemodynamically stable this morning, having episodes of vagal response and BP drops 20 points, SR and sinus arrythmnia noted on monitoring analyst, V epicardial wires on backup rate of 50Amiodarone bolus and dripKeep MS chest tube and monitor outputs, DC LP chest tube after ambulationMinimal oxygen requirements on 2l nasal cannula, encourage deep breathing and I-S useCXR and labs reviewedPain managementGlycemic control on insulin dripCardiac diet, nutritional supplementsBowel regimen, + gasStrict I Os, daily weights, albmuin x 1 given for decreased UOP- monitor hourlySCDs for DVT and PPI for GI prophylaxisPT/OTMonitor patient closely in CVICU, continue supportive carePatient seen with Dr. Hurd, plan of care discussed with ICU team. 08/12 Alert and oriented, up in the chairRemains on amiodarone drip for A-fibWean dopamine offChest x-ray reviewed. Breathing comfortably on room airCreatinine increased to 1.9, urine output 1.5 L last night after the boluses of LasixRepeat renal panel today show creatinine 2.2. Nephrology consulted, hold off onadditional LasixReplace electrolytesEncourage I-S and mobilizationGlycemic controlledKeep in CVICU for close monitoringPatient seen and plan reviewed with Dr Piper, Dr Kirkpatrick, [facility] and multidisciplinaryteam Consultants: cardiology, cardiovascular surgery at 1407 at 0947 RPT #:[id number] OF REPORTPRProgress [id number] for patient [id number]:07:54 [facility] 2022-08-12 00:59:00 [id number] [id number]/[id number]/mujzh [id number]:59:593850-1992 [place] [address] PATIENT NAME: BRENNAN AHN ADMIT DATE: 08/09/22ACCOUNT NO: [id number] ROOM NO: 2202 AGE: 82 REPORT TYPE: eELECTROCARDIOGRAM REPORT SEX: M ADMITTING PHYSICIAN:Salazar Hurd MD ATTENDING PHYSICIAN:Salazar Hurd MD Order:[id number] Reason : post op/CHANGE ON MONITOR Test Date/Time Stamp:SunAug 12 2022 00:59:31Blood Pressure : / mmHGVent. Rate : 091 BPM Atrial Rate : 000 BPM P-R Int : 000 ms QRS Dur : 100 ms QT Int : 350 ms P-R-T Axes : 000 073 076 degrees QTc Int : 430 ms Atrial fibrillationAnterior infarct , age undeterminedAbnormal ECGWhen compared with ECG of 11-AUG-2022 04:11,Significant changes have occurredConfirmed by GAVI RENAE MD ([id number]) on 08/14/2022 3:47:55 PM Referred By: Confirmed by:GAVI RENAE MD at 1547 PATIENT NAME: BRENNAN AHN .CPS2 [id number] for patient [id number]:48:12 [facility] 2022-08-11 17:42:00 [id number]S [id number]:42:00 [facility] HospitalCardiology ConsultationREPORT#:[id number] REPORT STATUS: SignedDATE:08/11/22 TIME: 1742 PATIENT: BRENNAN AHN UNIT #: [id number]#: [id number] [address] [birth year] AGE: 82 SEX: M ATTEND: Salazar Hurd [facility] AUTHOR: Logan Calix MD * ALL edits or amendments must be made on the electronic/computer document * History of Present Illness HPIRequesting Clinician: Dr. Holguin for consult:CADPCP:PCP: No Primary or Family Physician HPI:This is an 82-year-old male with a history of hypertension, and AF who presentedto outside hospital with chest pain underwent coronary angiogram that showed multivessel coronary artery disease and sent here for CABG. Patient underwent CABG x 5 (NGUYEN-LAD, SVG-Olga Lidia, SVG-OM, SVG-LPLA, SVG-PDA). PT is doing ok, urine out put was low today and was started on low dose Dopamine. History - Adult longitudinalPast medical history:Reports: Atrial fibrillation, Coronary artery disease, Dementia, Kidney disease/stones. Additional surgical history:Crevial LaminectomyFamily history:Reports: Hypertension. Alcohol use: Denies EtOH useDrug use: Denies recreational drugsAllergies:Coded Allergies:Xgtdgjt-QBL-WtH Reductase Inhibitor (Severe, UNKNOWN 08/09/22) Review of SystemsAdditional notes:As per HPI Otherewise negative 12 system points. Objective GeneralVS/I O:Vital Signs: Date Time Temp Pulse Resp B/P B/P Pulse O2 O2 Flow FiO2 Mean Ox Delivery Rate 03/10 1700 131/36 59 03/10 1700 68 35 115/56 80 96 03/10 1645 136/42 65 03/10 1645 65 37 117/56 80 86 03/10 1630 149/39 66 03/10 1630 66 32 131/60 87 96 03/10 1617 139/36 61 03/10 1617 66 33 125/58 83 94 03/10 1600 139/38 62 03/10 1600 65 35 122/65 88 96 03/10 1545 131/33 55 03/10 1545 60 15 120/57 82 94 03/10 1530 117/40 63 03/10 1530 69 44 132/59 85 93 03/10 1515 129/33 54 03/10 1515 61 19 112/57 81 96 03/10 1500 135/34 56 03/10 1500 97.8 61 30 121/58 83 97 03/10 1445 118/35 57 03/10 1445 64 32 114/57 82 100 03/10 1430 123/39 62 03/10 1430 65 25 109/59 82 99 03/10 1415 125/38 60 03/10 1415 64 35 107/54 74 99 03/10 1404 133/40 63 03/10 1404 65 33 118/56 80 99 03/10 1345 82/47 62 03/10 1345 63 48 109/59 80 98 03/10 1330 136/39 63 03/10 1330 63 27 112/55 79 100 03/10 1316 98/31 53 03/10 1316 68 35 113/59 77 100 03/10 1300 125/37 60 03/10 1300 62 18 110/56 79 100 03/10 1245 112/38 58 03/10 1245 63 42 97/54 71 99 03/10 1230 113/40 61 03/10 1230 63 43 97/59 71 100 03/10 1215 106/37 57 03/10 1215 61 38 104/52 74 98 03/10 1201 87/30 50 03/10 1201 66 28 115/52 75 78 03/10 1145 122/42 61 03/10 1145 59 13 108/58 79 98 03/10 1131 119/40 59 03/10 1131 60 18 110/55 79 100 03/10 1115 111/42 60 03/10 1115 61 12 93/55 71 100 03/10 1100 100/34 52 03/10 1100 97.4 60 24 96/52 71 99 03/10 1051 70/27 42 03/10 1051 63 32 90/49 66 81 03/10 1046 75/34 49 03/10 1046 66 44 93/53 71 93 03/10 1045 110/66 81 03/10 1045 63 34 93/50 68 91 03/10 1043 93/36 54 03/10 1043 61 27 88/53 68 87 03/10 1030 97/36 51 03/10 1030 59 34 86/47 62 90 03/10 1015 99/39 56 03/10 1015 61 30 93/51 68 98 03/10 1000 119/44 65 03/10 1000 60 27 97/55 73 100 03/10 0945 104/41 58 03/10 0945 60 42 100/57 76 99 03/10 0930 106/40 59 03/10 0930 60 23 98/53 71 100 03/10 0915 103/40 56 03/10 0915 59 33 93/50 66 100 03/10 0900 96/38 52 03/10 0900 59 24 85/50 64 100 03/10 0859 85/34 47 03/10 0859 57 30 82/48 60 96 03/10 0845 99/35 52 03/10 0845 61 16 97/54 71 97 03/10 0830 99/58 72 03/10 0829 63 27 96/36 53 100 03/10 0815 107/34 52 03/10 0815 60 13 96/52 71 98 03/10 0800 128/39 60 03/10 0800 65 17 107/58 79 99 03/10 0745 126/38 59 03/10 0745 64 22 108/56 79 97 03/10 0731 123/38 58 03/10 0731 67 34 106/58 75 97 03/10 0716 94/30 53 03/10 0716 73 26 102/50 72 90 03/10 0700 117/43 64 03/10 0700 97.7 70 28 104/55 76 98 03/10 0600 68 14 119/58 84 91 03/10 0500 63 13 107/59 78 94 03/10 0400 74 38 126/56 80 100 03/10 0315 62 100 35 03/10 0300 62 13 130/62 89 100 03/10 0241 66 100 35 03/10 0200 69 13 120/62 86 100 03/10 0100 73 11 130/65 92 100 03/10 0015 76 12 128/63 90 100 03/10 0000 76 14 125/65 90 03/09 2300 74 11 118/64 86 100 03/09 2200 79 14 114/58 80 96 03/09 2100 79 14 116/57 79 100 03/1999 High flow 1 nasal cannula 08/11 1999 129/57 77 /1999 79 15 112/66 84 91 03/09 1900 132/57 79 03/09 1900 79 15 112/64 83 99 03/09 1845 120/51 71 03/09 1845 79 16 104/59 76 100 03/09 1834 100 Nasal 4 cannula 08/10 1830 63/33 43 03/09 1830 80 28 85/50 62 91 03/09 1815 119/50 71 03/09 1815 79 17 112/58 79 100 03/09 1800 85/39 55 03/09 1800 79 31 101/55 74 100 03/09 1745 90/44 65 03/09 1745 79 17 109/55 76 100 24 hour I O ending at 0700: / 0700 / 1900 Intake Total 1103.00 3315.00 Output Total 955 1230 Balance 148.00 2085.00 Intake, IV 863.00 1015.00 Intake, Oral 240 300 Intake, Other 2000 Output, Chest 350 220 Tube Drainage Output, 300 Estimated Blood Loss Output, Urine 605 710 Patient 100.5 kg 100.5 kg Weight Weight Bed scale Bed scale Measurement Method PATIENT WEIGHT: Weight (lb): 221Weight (oz): 9.03Weight (kg): 100.244 General appearance: alert, awake, orientedHead/Eyes: PERRLAENT: normal noseNeck: no JVDCardiovascular: CV assessment: regular rate and rhythm, normal heart soundsRespiratory: clear to auscultation, no distressAbdomen: softLower extremity: LE assessment: no cyanosis, no edemaNeuro/TEAROOM HOST/HOSTESS: alert, oriented X 3, normal speechSkin: dry, intactPsychiatry: normal affect, normal judgment/insight, normal mood, no hallucinationsMedications:Active Meds + DC'd Last 24 HrsIpratropium [place] (ATROVENT) 500 MCG Q2H PRN PRN INH Cyanocobalamin (Vitamin B-12 500 mcg tab) 500 MCG DAILY PO Ferrous Sulfate (FERROUS SULFATE) 325 MG DAILY PO Bisacodyl (DULCOLAX) 10 MG ONCE PRN RECTAL Magnesium Hydroxide (MILK OF MAGNESIA) 30 ML ONCE PRN PO Furosemide (LASIX 20MG INJ) 20 MG STAT STA IV (DC) Dopamine HCl/Dextrose (DOPamine 400MG/D5W 250ML) 250 ML ASDIR IV Albumin Human (ALBUMINAR 5% 12.5GM/250ML) 250 ML STAT STA IV (DC) Tramadol HCl (ULTRAM) 50 MG Q4H PRN PRN PO Clopidogrel Bisulfate (Plavix) 75 MG DAILY PO Polyethylene Glycol (MIRALAX) 17 GM DAILY PO Amiodarone HCl (AMIODARONE HCL) 450 MG ASDIR IV (CKD) Dextrose/Water (D5%W NON-DEHP) 250 MLAmiodarone HCl (NEXTERONE 150MG/D5W 100ML) 100 ML STAT STA IV (DC) Pantoprazole (PROTONIX) 40 MG DAILY@0600 PO Docusate Sodium (COLACE) 100 MG BID PO Metoprolol Tartrate (LOPRESSOR) 12.5 MG Q12HR PO Mupirocin (BACTROBAN 2% 22 GM OINTMENT) 1 APPLIC BID NASAL Sennosides (Senna Lax 8.6 MG TABLET) 17.2 MG BEDTIME PO Aspirin (ASPIRIN) 81 MG DAILY PO Albumin Human (ALBUMINAR 5% 12.5GM/250ML) 250 ML STAT STA IV (DC) Amiodarone HCl (CORDARONE) 200 MG TID PO Acetaminophen (TYLENOL) 650 MG Q4H PRN PRN PO Acetaminophen (TYLENOL) 650 MG Q4H PRN PRN RECTAL Albumin Human (ALBUMINAR 25%) 25 GM ASDIR PRN IV (DC) Calcium Chloride (CALCIUM CHLORIDE) 1 GM ASDIR PRN IV Cefazolin Sodium (KEFZOL OR ANCEF) 6 GM ONCE ONE IV (DC) Sodium Chloride (SODIUM CHLORIDE 0.9%) 500 MLDextrose/Water (DEXTROSE 10% IN WATER) 125 ML ASDIR PRN IV (CKD) Dextrose/Water (DEXTROSE 10% IN WATER) 250 ML ASDIR PRN IV (CKD) Epinephrine (ADRENALIN CHLORIDE) 4 MG ASDIR IV Dextrose/Water (DEXTROSE 5% WATER) 246 MLGlucagon (GLUCAGON) 1 MG ASDIR PRN IM Insulin Human Regular (HumuLIN R) 100 UNIT ASDIR IV (CKD) Sodium Chloride (SODIUM CHLORIDE 0.9%) 99 MLIpratropium [place] (ATROVENT) 500 MCG Q4H INH Magnesium Sulfate (MAGNESIUM SULFATE 4GM/SWFI 100ML) 100 ML ASDIR PRN IV Magnesium Sulfate (MAGNESIUM SULFATE 2GM/SWFI 50ML) 50 ML ASDIR PRN IV Magnesium Sulfate/Dextrose (MAGNESIUM SULFATE 1GM/D5W 100ML) 100 ML ASDIR PRN IV Morphine Sulfate (morphine SULFATE) 4 MG Q2H PRN PRN IV (DC) Nitroglycerin/Dextrose (NITROGLYCERIN 50,000MCG/D5W 250ML) 250 ML ASDIR IV Norepinephrine Bitartrate (NOREPINEPHRINE 8 MG/NS 250 ML) 250 ML TITRATE IV Ondansetron HCl (ZOFRAN) 4 MG Q6H PRN PRN IV Oxycodone HCl (ROXICODONE) 5 MG Q4H PRN PRN PO (DC) Oxycodone HCl (ROXICODONE) 10 MG Q4H PRN PRN PO (DC) Potassium Chloride (KCL 20MEQ/SWFI 100ML) 100 ML ASDIR PRN IV Sodium Bicarbonate (SODIUM BICARBONATE) 50 MEQ ASDIR PRN IV Sodium Chloride (SODIUM CHLORIDE 0.9%) 1,000 ML .Q20H IV Sodium Chloride (SODIUM CHLORIDE 0.9%) 250 ML Q24H IV Vancomycin HCl (VANCOMYCIN HCL) 1,500 MG PREOP ONCALL IV (DC) Sodium Chloride (SODIUM CHLORIDE 0.9%) 250 MLVerapamil HCl (ISOPTIN) 16.6 MG .Q24H ONE IV (DC) Heparin Sodium (Porcine) (HEPARIN SODIUM) 1,660 UNIT Sodium Bicarbonate (SODIUM BICARBONATE) 0.7 ML Nitroglycerin/Dextrose (NITROGLYCERIN 50MG/D5W 250ML) 8.3 MG Lactated Ringer's (LACTATED RINGERS) 949.5 MLMelatonin (Melatonin) 6 MG BEDTIME PRN PRN PO Hydralazine HCl (APRESOLINE) 10 MG Q6H PRN PRN IV ResultsFindings/Data:Laboratory Tests 08/11 08/10 08/10 08/10 0210 2138 1819 1747Blood Gas Puncture Site Art Line Art Line Art Line Art Line O2 Saturation (90 - 100 %) 89.7 L 99.5 98.6 98.9 ABG pH (7.35 - 7.45) 7.304 L 7.317 L 7.321 L 7.283 *L ABG pCO2 (35.0 - 45 mmHg) 46.4 H 45.1 H 46.1 H 44.1 ABG pO2 (80 - 100.0 mmHg) 64.1 L 178.0 H 125.2 H 140.9 H ABG PO2/FiO2 Ratio (mm/Hg) 313.00 352.25 ABG HCO3 (22.0 - 26.0 MMOL/L) 23.0 23.1 23.9 21.0 L ABG Total CO2 24.5 24.4 25.3 22.3 ABG Base Excess (-4.0 - 4.0 -3.3 -3.1 -2.3 -5.8 LMMOL/L) ABG Hematocrit (37.5 - 50.7 %) 28 L 26 L 28 L 30 L ABG Hemoglobin (12.5 - 16.9 G/DL) 9.5 L 8.9 L 9.5 L 10.3 L Sodium (134 - 147 mmol/L) 142 143 142 141 Potassium (3.4 - 5.0 mmol/L) 4.3 3.6 3.7 4.1 Chloride (100 - 108 mmol/L) 107 109 H 108 109 H Ionized Calcium (1.12 - 1.32 1.23 1.17 1.17 1.18MMOL/L) Lactic Acid (0.9 - 1.7 mmol/l) 0.9 1.0 1.6 1.6 Temperature (F) 98 98 O2 Delivery Device Room Air HFNC Adult Vent Adult Vent Vent Mode CPAP/PS CPAP/PS Vent Rate (/MIN) 17 22 FiO2 (%) 40 40 PEEP (cmH2O) 5 5 Pressure Support (cmH2O) 10 10 Laboratory Tests 08/11 08/11 08/11 08/11 08/11 0810 0614 0440 0213 0210Chemistry Sodium (134 - 147 mEq/L) 142 Potassium (3.4 - 5.0 mEq/L) 4.2 Chloride (100 - 108 mEq/L) 110 H Carbon Dioxide (21 - 33 mEq/l) 25 Anion Gap (0 - 20) 11 BUN (7 - 18 mg/dL) 17 Creatinine (0.6 - 1.3 mg/dL) 1.3 POC Creatinine (0.8 - 1.3 mg/dL) 1.3 Glomerular Filtr Rate (70 - 80) 55.5 L Glucose (70 - 110 mg/dL) 127 H POC Glucose (70 - 110 MG/DL) 104 108 99 POC Glucose (mg/dL) (70 - 110 MG/DL) 125 H Calcium (8.0 - 10.5 mg/dL) 8.3 Magnesium (1.80 - 2.40 mg/dL) 2.28 Total Bilirubin (0.0 - 1.0 mg/dL) 0.60 Direct Bilirubin (0.0 - 0.30 MG/DL) 0.30 Indirect Bilirubin (MG/DL) 0.30 AST (15 - 37 IUnit/L) 38 H ALT (30 - 65 IUnit/L) 13 L Total Alk Phosphatase (20 - 125 IUnit/L) 46 Total Protein (6.4 - 8.2 g/dL) 5.1 L Albumin (3.4 - 5.0 g/dL) 3.60 08/11 08/10 08/10 08/10 08/10 0052 2138 5 1819 1747 Chemistry POC Creatinine (0.8 - 1.3 mg/dL) 1.4 H 1.2 1.2 POC Glucose (70 - 110 MG/DL) 98 103 POC Glucose (mg/dL) (70 - 110 MG/DL) 108 137 H 144 H Laboratory Tests 08/11 0213 Hematology WBC (4.5 - 11.0 x10 3/uL) 12.7 H RBC (4.00 - 5.60 x10 6/uL) 3.10 L Hgb (12.5 - 16.9 g/dL) 9.3 L Hct (37.5 - 50.7 %) 29.2 L MCV (81.0 - 99.0 fL) 94.2 MCH (27.0 - 33.0 pg) 30.0 MCHC (33.0 - 37.0 g/dL) 31.8 L RDW (11.5 - 14.5 %) 13.3 Plt Count (150 - 400 x10 3/uL) 99 L MPV (7.0 - 9.0 fL) 10.4 H Neut % (Auto) (56.0 - 77.0 %) 85.3 H Lymph % (Auto) (14.0 - 32.0 %) 5.2 L [place] % (Auto) (4.8 - 9.0 %) 8.7 Eos % (Auto) (0.3 - 3.7 %) 0.1 L Baso % (Auto) (0.0 - 2.0 %) 0.2 Neut # (Auto) (2.0 - 7.6 x10 3/uL) 10.86 H Lymph # (Auto) (1.0 - 3.8 x10 3/uL) 0.66 L [place] # (Auto) (0.1 - 0.8 x10 3/uL) 1.10 H Eos # (Auto) (0.0 - 0.2 x10 3/uL) 0.01 Baso # (Auto) (0.0 - 0.2 x10 3/uL) 0.02 Abs Immat Gran (auto) (0.00 - 0.03 x10 3/uL) 0.06 H Add Manual Diff NO Immature Gran % (0.0 - 2.0 %) 0.5 Nucleated RBC % (0 - 0 %) 0.0 Nucleated RBCs # (Man) (0.0 - 0.1 x10 3/uL) 0.00 Platelet Estimate (ADEQUATE THOUSAND) 100-125 Laboratory Tests 08/11 0213 Chemistry Magnesium (1.80 - 2.40 mg/dL) 2.28 Radiology Data:Recent Impressions:RADIOLOGY - XR CHEST 1 V 08/11 0500 Report Impression - Status: SIGNED Entered: 08/11/2022 0732 IMPRESSION: Cardiomegaly with opacity at the left lung base. Impression By: Miriam Loredo M.D. Treatment Prophylaxis Treatment ProphylaxisDrain(s)/tube(s): Drain(s)/tube(s): chest, urinary catheter Diagnosis, Assessment PlanConsultants: cardiology, cardiovascular surgery Free Text DxA P NotesFree Text DxA P Notes:1. Coronary artery disease: S/pCABG x 5 (NGUYEN-LAD, SVG-Olga Lidia, SVG-OM, SVG-LPLA, SVG-PDA), on DAPT, and statin. We will start low-dose beta-rebel. Urine out put low, CVP 11, give one dose Lasix IV. 2. A-fib: Paroxysmal, had PVI at the time of CABG and left atrial appendage amputation. 3. HTN: start BB and resume home meds as tolerated,. at 0705 [facility] #:[id number] OF REPORTFUVdrznsxqoxwp1453-64-68G18: 42:00G.[id number] for patient ryzoXXIUIMFNMIWWIN3463-12-94I59:05:32 [facility] 2022-08-11 12:01:00 [id number]/c3R2Ip+XOF /eHb0MvR1dNZdOHKLaghKRXAr2j34eOhwKeLO da3151-06-70Y48:01:00 [facility])Adult General ConsultationREPORT#:[id number] REPORT STATUS: SignedDATE:08/11/22 TIME: 1201 PATIENT: BRENNAN AHN UNIT #: [id number]#: [id number] [address]DOB: [birth year] AGE: 82 SEX: M ATTEND: Salazar Hurd [facility] AUTHOR: Devin Fox DO * ALL edits or amendments must be made on the electronic/computer document * History of Present IllnessRequesting Clinician: dr Holguin for consult:medical [facility] complaint:Post CABGHPI:82-year-old male with past medical history of hypertension, atrial fibrillation,supraventricular tachycardia status post ablation who was admitted with reports of multivessel coronary artery disease found on a cardiac catheterization done at [facility]. Patient was transferred to [facility] for CABG. Patient is a poor historian due to his history of Alzheimer's disease. Some of the history was obtained from patient's children at bedside. Patient underwent 5 vessel CABG August 10, 2022. Patient is sitting in chair. Hereports minor chest pain. History - Adult longitudinalPast medical history:Reports: Atrial fibrillation, Coronary artery disease, Dementia, Kidney disease/stones. Additional surgical history:Crevial LaminectomyFamily history:Reports: Hypertension. Alcohol use: Denies EtOH useDrug use: Denies recreational drugsMedications:Home Medications: Medication Dose/Rte/Freq Days Qty Entered Last Max Daily Dose Reviewed METOPROLOL TARTRATE 50 MG PO BID 08/09/22 08/09/22 (LOPRESSOR) 1903 1904 Strength: 50 MG TAB hydrALAZINE (APRESOLINE) 20 MG IV 08/09/22 08/09/22 Strength: 20 MG/ML AMPUL Q4H PRN PRN SBP 1904 1904 GREATER THAN 180 Current Hospital Medications:Ahfs Category Unknown Sig/Ariana Start time Last Medication Dose Route Stop Time Status Admin Melatonin 6 MG BEDTIME PRN PRN 08/10 0015 AC 08/10 (Melatonin) PO 09/09 0014 0022 Anti-Infective Agents Sig/Ariana Start time Last Medication Dose Route Stop Time Status Admin Cefazolin Sodium 0 .STK-MED ONE 08/10 1509 DC (KEFZOL OR ANCEF) .ROUTE Cefazolin Sodium 6 GM ONCE ONE 08/10 1445 DC 08/10 (KEFZOL OR ANCEF) IV 08/11 1044 1637 Sodium Chloride 500 ML (SODIUM CHLORIDE 0.9%) Cefazolin Sodium 2 GM PREOP ONCALL 08/10 0500 DC (KEFZOL OR ANCEF) IV 08/10 2359 Vancomycin HCl 1,500 MG PREOP ONCALL 08/10 0500 DC (VANCOMYCIN HCL) IV 08/10 2359 Sodium Chloride 250 ML (SODIUM CHLORIDE 0.9%) Autonomic Drugs Sig/Ariana Start time Last Medication Dose Route Stop Time Status Admin Ipratropium [place] 500 MCG Q2H PRN PRN 08/13 1441 AC (ATROVENT) INH 09/12 1440 Dopamine HCl/Dextrose 250 ML ASDIR 08/11 1445 AC (DOPamine 400MG/D5W IV 09/10 1444 250ML) Epinephrine 4 MG ASDIR 08/10 1445 AC (ADRENALIN CHLORIDE) IV 09/09 1444 Dextrose/Water 246 ML (DEXTROSE 5% WATER) Ipratropium [place] 500 MCG Q4H 08/10 1445 AC 08/11 (ATROVENT) INH 08/13 1441 1242 Norepinephrine 250 ML TITRATE 08/10 1445 AC Bitartrate IV 09/09 1444 (NOREPINEPHRINE 8 MG/ NS 250 ML) Blood Derivatives Sig/Ariana Start time Last Medication Dose Route Stop Time Status Admin Albumin Human 250 ML STAT STA 08/11 1155 DC 08/11 (ALBUMINAR 5% 12.5GM/ IV 08/11 1224 1210 250ML) Albumin Human 250 ML STAT STA 08/10 1755 DC 08/10 (ALBUMINAR 5% 12.5GM/ IV 08/10 1824 1740 250ML) Albumin Human 25 GM ASDIR PRN 08/10 1445 DC 08/11 (ALBUMINAR 25%) IV 08/11 1441 0851 Blood Formation,Coagulation Sig/Ariana Start time Last Medication Dose Route Stop Time Status Admin Ferrous Sulfate 325 MG DAILY 08/13 0900 AC (FERROUS SULFATE) PO 09/12 0859 Clopidogrel Bisulfate 75 MG DAILY 08/11 0900 AC 08/11 (Plavix) PO 09/10 0859 0737 Cardiovascular Drugs Sig/Ariana Start time Last Medication Dose Route Stop Time Status Admin Amiodarone HCl 450 MG ASDIR 08/11 0745 CKD 08/11 (AMIODARONE HCL) IV 09/10 0744 0753 Dextrose/Water 250 ML (D5%W NON-DEHP) Amiodarone HCl 100 ML STAT STA 08/11 0736 DC 08/11 (NEXTERONE 150MG/D5W IV 08/11 0745 0752 100ML) Metoprolol Tartrate 12.5 MG Q12HR 08/10 2100 AC 08/11 (LOPRESSOR) PO 09/09 2058 0737 Amiodarone HCl 200 MG TID 08/10 1500 AC 08/11 (CORDARONE) PO 09/09 1459 1401 Nitroglycerin/ 250 ML ASDIR 08/10 1445 AC Dextrose IV 09/09 1444 (NITROGLYCERIN 50,000MCG/D5W 250ML) Verapamil HCl 16.6 MG .Q24H ONE 08/10 0500 DC (ISOPTIN) IV 08/11 0459 Heparin Sodium 1,660 UNIT (Porcine) (HEPARIN SODIUM) Sodium Bicarbonate 0.7 ML (SODIUM BICARBONATE) Nitroglycerin/ 8.3 MG Dextrose (NITROGLYCERIN 50MG/ D5W 250ML) Lactated Ringer's 949.5 ML (LACTATED RINGERS) Hydralazine HCl 10 MG Q6H PRN PRN 08/09 1930 AC 08/09 (APRESOLINE) IV 09/08 1928 2208 Metoprolol Tartrate 50 MG Q12HR 08/09 1929 DC 08/10 (LOPRESSOR) PO 09/08 1928 0735 Central Nervous System Agents Sig/Ariana Start time Last Medication Dose Route Stop Time Status Admin Tramadol HCl 50 MG Q4H PRN PRN 08/11 0930 AC 08/11 (ULTRAM) PO 08/16 0929 0925 Aspirin 81 MG DAILY 08/10 2040 AC 08/11 (ASPIRIN) PO 09/10 2039 0737 Acetaminophen 650 MG Q4H PRN PRN 08/10 1445 AC 08/11 (TYLENOL) PO 09/09 1444 1402 Acetaminophen 650 MG Q4H PRN PRN 08/10 1445 AC (TYLENOL) RECTAL 09/09 1444 Magnesium Sulfate 100 ML ASDIR PRN 08/10 1445 AC (MAGNESIUM SULFATE IV 09/09 1444 4GM/SWFI 100ML) Magnesium Sulfate 50 ML ASDIR PRN 08/10 1445 AC (MAGNESIUM SULFATE IV 09/09 1444 2GM/SWFI 50ML) Magnesium Sulfate/ 100 ML ASDIR PRN 08/10 1445 AC 08/11 Dextrose IV 09/09 1444 0430 (MAGNESIUM SULFATE 1GM/D5W 100ML) Morphine Sulfate 4 MG Q2H PRN PRN 08/10 1445 DC (morphine SULFATE) IV 08/15 1444 Oxycodone HCl 5 MG Q4H PRN PRN 08/10 1445 DC (ROXICODONE) PO 08/15 144 Oxycodone HCl 10 MG Q4H PRN PRN 08/10 144 DC (ROXICODONE) PO 08/15 144 Electrolytic, Caloric, And Alexandre Sig/Ariana Start time Last Medication Dose Route Stop Time Status Admin Calcium Chloride 1 GM ASDIR PRN 08/10 1445 AC (CALCIUM CHLORIDE) IV 09/09 144 Dextrose/Water 125 ML ASDIR PRN 08/10 144 CKD (DEXTROSE 10% IN IV 09/09 144 WATER) Dextrose/Water 250 ML ASDIR PRN 08/10 144 CKD (DEXTROSE 10% IN IV 09/09 144 WATER) Potassium Chloride 100 ML ASDIR PRN 08/10 144 AC (KCL 20MEQ/SWFI IV 09/09 144 100ML) Sodium Bicarbonate 50 MEQ ASDIR PRN 08/10 144 AC (SODIUM BICARBONATE) IV 09/09 144 Sodium Chloride 1,000 ML .Q20H 08/10 1445 AC 08/11 (SODIUM CHLORIDE IV 09/09 144 0753 0.9%) Sodium Chloride 250 ML Q24H 08/10 144 AC (SODIUM CHLORIDE IV 09/09 1444 0.9%) Gastrointestinal Drugs Sig/Ariana Start time Last Medication Dose Route Stop Time Status Admin Bisacodyl 10 MG ONCE PRN 08/12 1200 AC (DULCOLAX) RECTAL 09/11 1159 Magnesium Hydroxide 30 ML ONCE PRN 08/12 1200 AC (MILK OF MAGNESIA) PO Polyethylene Glycol 17 GM DAILY 08/11 09 AC 08/11 (MIRALAX) PO 09/10 0859 0738 Pantoprazole 40 MG DAILY@0600 08/11 0600 AC 08/11 (PROTONIX) PO 09/10 0559 0705 Docusate Sodium 100 MG BID 08/10 2100 AC 08/11 (COLACE) PO 09/09 Sennosides 17.2 MG BEDTIME 08/10 2100 AC 08/10 (Senna Lax 8.6 MG PO 09/09 TABLET) Ondansetron HCl 4 MG Q6H PRN PRN 08/10 1445 AC (ZOFRAN) IV 09/09 144 Hormones And Synthetic Substit Sig/Ariana Start time Last Medication Dose Route Stop Time Status Admin Glucagon 1 MG ASDIR PRN 08/10 1445 AC (GLUCAGON) IM 09/09 144 Insulin Human Regular 100 UNIT ASDIR 08/10 144 CKD (HumuLIN R) IV 09/09 144 Sodium Chloride 99 ML (SODIUM CHLORIDE 0.9%) Skin And Mucous Membrane Agent Sig/Ariana Start time Last Medication Dose Route Stop Time Status Admin Mupirocin 1 APPLIC BID 08/10 2100 AC 08/11 (BACTROBAN 2% 22 GM NASAL 08/15 09 0738 OINTMENT) Vitamins Sig/Ariana Start time Last Medication Dose Route Stop Time Status Admin Cyanocobalamin 500 MCG DAILY 08/13 899 AC (Vitamin B-12 500 PO 09/12 0859 mcg tab) Allergies:Coded Allergies:[id number] Reductase Inhibitor (Severe, UNKNOWN 08/09/22) ObjectiveVS/I O:Last Documented: Result Date Time B/P 99/58 08/11 0830 B/P Mean 72 08/11 08 Pulse Ox 100 08/11 08 Pulse 63 08/11 0829 Resp 27 08/11 0829 Temp 97.7 08/11 0700 FiO2 35 08/11 0315 O2 Delivery High flow nasal cannula 08/11 1999 O2 Flow Rate 1 08/11 1999 24 hour I O ending at 0700: 08/11 0700 08/10 1900 Intake Total 1103.00 3315.00 Output Total 955 1230 Balance 148.00 2085.00 Intake, IV 863.00 1015.00 Intake, Oral 240 300 Intake, Other 2000 Output, Chest 350 220 Tube Drainage Output, 300 Estimated Blood Loss Output, Urine 605 710 Patient 100.5 kg 100.5 kg Weight Weight Bed scale Bed scale Measurement Method PATIENT WEIGHT: Weight (lb): 221Weight (oz): 9.03Weight (kg): 100.500 General appearance: alert, awake, orientedHead/Eyes: EOMI, PERRLANeck: non-tender, no JVDCardiovascular: regular rate rhythmRespiratory: aerating well, symmetric expansionAbdomen: soft, non-tenderExtremities: moves all, no edemaNeuro/TEAROOM HOST/HOSTESS: alert, oriented X 3, CNII-XII grossly intact ResultsFindings/Data:Laboratory Tests: 08/11 08/11 08/11 08/11 0810 0614 0440 0213 Chemistry Sodium (134 - 147 mEq/L) 142 Potassium (3.4 - 5.0 mEq/L) 4.2 Chloride (100 - 108 mEq/L) 110 H Carbon Dioxide (21 - 33 mEq/l) 25 Anion Gap (0 - 20) 11 BUN (7 - 18 mg/dL) 17 Creatinine (0.6 - 1.3 mg/dL) 1.3 Glomerular Filtr Rate (70 - 80) 55.5 L Glucose (70 - 110 mg/dL) 127 H POC Glucose (70 - 110 MG/DL) 104 108 99 Calcium (8.0 - 10.5 mg/dL) 8.3 Magnesium (1.80 - 2.40 mg/dL) 2.28 Total Bilirubin (0.0 - 1.0 mg/dL) 0.60 Direct Bilirubin (0.0 - 0.30 MG/DL) 0.30 Indirect Bilirubin (MG/DL) 0.30 AST (15 - 37 IUnit/L) 38 H ALT (30 - 65 IUnit/L) 13 L Total Alk Phosphatase (20 - 125 IUnit/L) 46 Total Protein (6.4 - 8.2 g/dL) 5.1 L Albumin (3.4 - 5.0 g/dL) 3.60 Hematology WBC (4.5 - 11.0 x10 3/uL) 12.7 H RBC (4.00 - 5.60 x10 6/uL) 3.10 L Hgb (12.5 - 16.9 g/dL) 9.3 L Hct (37.5 - 50.7 %) 29.2 L MCV (81.0 - 99.0 fL) 94.2 MCH (27.0 - 33.0 pg) 30.0 MCHC (33.0 - 37.0 g/dL) 31.8 L RDW (11.5 - 14.5 %) 13.3 Plt Count (150 - 400 x10 3/uL) 99 L MPV (7.0 - 9.0 fL) 10.4 H Neut % (Auto) (56.0 - 77.0 %) 85.3 H Lymph % (Auto) (14.0 - 32.0 %) 5.2 L [place] % (Auto) (4.8 - 9.0 %) 8.7 Eos % (Auto) (0.3 - 3.7 %) 0.1 L Baso % (Auto) (0.0 - 2.0 %) 0.2 Neut # (Auto) (2.0 - 7.6 x10 3/uL) 10.86 H Lymph # (Auto) (1.0 - 3.8 x10 3/uL) 0.66 L [place] # (Auto) (0.1 - 0.8 x10 3/uL) 1.10 H Eos # (Auto) (0.0 - 0.2 x10 3/uL) 0.01 Baso # (Auto) (0.0 - 0.2 x10 3/uL) 0.02 Abs Immat Gran (auto) (0.00 - 0.03 x10 3/uL) 0.06 H Add Manual Diff NO Immature Gran % (0.0 - 2.0 %) 0.5 Nucleated RBC % (0 - 0 %) 0.0 Nucleated RBCs # (Man) (0.0 - 0.1 x10 3/uL) 0.00 Platelet Estimate (ADEQUATE THOUSAND) 100-125 08/11 08/11 08/10 08/10 08/10 0210 0052 8 2024 1818Blood Gas Puncture Site Art Line Art Line Art Line O2 Saturation (90 - 100 %) 89.7 L 99.5 98.6 ABG pH (7.35 - 7.45) 7.304 L 7.317 L 7.321 L ABG pCO2 (35.0 - 45 mmHg) 46.4 H 45.1 H 46.1 H ABG pO2 (80 - 100.0 mmHg) 64.1 L 178.0 H 125.2 H ABG PO2/FiO2 Ratio (mm/Hg) 313.00 ABG HCO3 (22.0 - 26.0 MMOL/L) 23.0 23.1 23.9 ABG Total CO2 24.5 24.4 25.3 ABG Base Excess (-4.0 - 4.0 -3.3 -3.1 -2.3MMOL/L) ABG Hematocrit (37.5 - 50.7 %) 28 L 26 L 28 L ABG Hemoglobin (12.5 - 16.9 9.5 L 8.9 L 9.5 LG/DL) Sodium (134 - 147 mmol/L) 142 143 142 Potassium (3.4 - 5.0 mmol/L) 4.3 3.6 3.7 Chloride (100 - 108 mmol/L) 107 109 H 108 Ionized Calcium (1.12 - 1.32 1.23 1.17 1.17MMOL/L) Lactic Acid (0.9 - 1.7 mmol/l) 0.9 1.0 1.6 Temperature (F) 98 O2 Delivery Device Room Air HFNC Adult Vent Vent Mode CPAP/PS Vent Rate (/MIN) 17 FiO2 (%) 40 PEEP (cmH2O) 5 Pressure Support (cmH2O) 10Chemistry POC Creatinine (0.8 - 1.3 mg/dL) 1.3 1.4 H 1.2 POC Glucose (70 - 110 MG/DL) 98 103 POC Glucose (mg/dL) (70 - 110 125 H 108 137 HMG/DL) 08/10 08/10 08/10 1747 1659 1600 Blood Gas Puncture Site Art Line O2 Saturation (90 - 100 %) 98.9 ABG pH (7.35 - 7.45) 7.283 *L ABG pCO2 (35.0 - 45 mmHg) 44.1 ABG pO2 (80 - 100.0 mmHg) 140.9 H ABG PO2/FiO2 Ratio (mm/Hg) 352.25 ABG HCO3 (22.0 - 26.0 MMOL/L) 21.0 L ABG Total CO2 22.3 ABG Base Excess (-4.0 - 4.0 MMOL/L) -5.8 L ABG Hematocrit (37.5 - 50.7 %) 30 L ABG Hemoglobin (12.5 - 16.9 G/DL) 10.3 L Sodium (134 - 147 mmol/L) 141 Potassium (3.4 - 5.0 mmol/L) 4.1 Chloride (100 - 108 mmol/L) 109 H Ionized Calcium (1.12 - 1.32 MMOL/L) 1.18 Lactic Acid (0.9 - 1.7 mmol/l) 1.6 Temperature (F) 98 O2 Delivery Device Adult Vent Vent Mode CPAP/PS Vent Rate (/MIN) 22 FiO2 (%) 40 PEEP (cmH2O) 5 Pressure Support (cmH2O) 10 Chemistry POC Creatinine (0.8 - 1.3 mg/dL) 1.2 POC Glucose (70 - 110 MG/DL) 147 H POC Glucose (mg/dL) (70 - 110 MG/DL) 144 H Magnesium (1.80 - 2.40 mg/dL) 3.07 H 03 0308/10 1600 1559 1502 Blood Gas Puncture Site Art Line O2 Saturation (90 - 100 %) 99.6 100.0 ABG pH (7.35 - 7.45) 7.324 L 7.328 L ABG pCO2 (35.0 - 45 mmHg) 39.1 45.1 H ABG pO2 (80 - 100.0 mmHg) 200.1 *H 433.9 *H ABG PO2/FiO2 Ratio (mm/Hg) 333.50 ABG HCO3 (22.0 - 26.0 MMOL/L) 20.3 L 23.7 ABG Total CO2 21.5 25.0 ABG Base Excess (-4.0 - 4.0 MMOL/L) -5.7 L -2.4 ABG Hematocrit (37.5 - 50.7 %) 31 L 29 L ABG Hemoglobin (12.5 - 16.9 G/DL) 10.5 L 9.9 L Gerry Test N/A Sodium (134 - 147 mmol/L) 139 139 Potassium (3.4 - 5.0 mmol/L) 4.2 4.3 Chloride (100 - 108 mmol/L) 107 105 Ionized Calcium (1.12 - 1.32 MMOL/L) 1.23 1.30 Lactic Acid (0.9 - 1.7 mmol/l) 0.8 L O2 Delivery Device Adult Vent Vent Mode AC Vent Rate (/MIN) 16 FiO2 (%) 60 Tidal Volume (ml) 500 PEEP (cmH2O) 5 Chemistry Sodium (134 - 147 mEq/L) 140 Potassium (3.4 - 5.0 mEq/L) 4.2 Chloride (100 - 108 mEq/L) 106 Carbon Dioxide (21 - 33 mEq/l) 21 Anion Gap (0 - 20) 17 BUN (7 - 18 mg/dL) 17 Creatinine (0.6 - 1.3 mg/dL) 1.2 POC Creatinine (0.8 - 1.3 mg/dL) 1.1 1.2 Glomerular Filtr Rate (70 - 80) 61.1 L Glucose (70 - 110 mg/dL) 151 H POC Glucose (mg/dL) (70 - 110 MG/DL) 144 H 122 H Calcium (8.0 - 10.5 mg/dL) 8.4 Coagulation INR (0.8 - 1.2) 1.5 H PTT ([place]) (25.0 - 39.5 Seconds) 32.6 PT Patient/Control Mix (9.3 - 12.9 SECONDS) 16.6 H Hematology WBC (4.5 - 11.0 x10 3/uL) 18.0 H RBC (4.00 - 5.60 x10 6/uL) 3.53 L Hgb (12.5 - 16.9 g/dL) 10.6 L Hct (37.5 - 50.7 %) 32.4 L MCV (81.0 - 99.0 fL) 91.8 MCH (27.0 - 33.0 pg) 30.0 MCHC (33.0 - 37.0 g/dL) 32.7 L RDW (11.5 - 14.5 %) 13.2 Plt Count (150 - 400 x10 3/uL) 110 L MPV (7.0 - 9.0 fL) 10.3 H Neut % (Auto) (56.0 - 77.0 %) 93.1 H Lymph % (Auto) (14.0 - 32.0 %) 3.8 L [place] % (Auto) (4.8 - 9.0 %) 1.8 L Eos % (Auto) (0.3 - 3.7 %) 0.3 Baso % (Auto) (0.0 - 2.0 %) 0.2 Neut # (Auto) (2.0 - 7.6 x10 3/uL) 16.78 H Lymph # (Auto) (1.0 - 3.8 x10 3/uL) 0.69 L [place] # (Auto) (0.1 - 0.8 x10 3/uL) 0.32 Eos # (Auto) (0.0 - 0.2 x10 3/uL) 0.05 Baso # (Auto) (0.0 - 0.2 x10 3/uL) 0.03 Abs Immat Gran (auto) (0.00 - 0.03 x10 3/uL) 0.15 H Add Manual Diff NO Immature Gran % (0.0 - 2.0 %) 0.8 Nucleated RBC % (0 - 0 %) 0.0 Nucleated RBCs # (Man) (0.0 - 0.1 x10 3/uL) 0.00 08/10 08/10 08/10 08/10 08/10 1501 1433 1431 1400 1358Blood Gas O2 Saturation (90 - 100 %) 100.0 100.0 ABG pH (7.35 - 7.45) 7.438 7.456 H ABG pCO2 (35.0 - 45 mmHg) 35.6 33.0 L ABG pO2 (80 - 100.0 mmHg) 407.3 *H 360.5 *H ABG HCO3 (22.0 - 26.0 MMOL/L) 24.1 23.2 ABG Total CO2 25.2 24.2 ABG Base Excess (-4.0 - 4.0 MMOL/L) 0.1 -0.3 ABG Hematocrit (37.5 - 50.7 %) 28 L 29 L ABG Hemoglobin (12.5 - 16.9 G/DL) 9.7 L 9.9 L Sodium (134 - 147 mmol/L) 137 138 Potassium (3.4 - 5.0 mmol/L) 4.8 5.0 Chloride (100 - 108 mmol/L) 103 103 Ionized Calcium (1.12 - 1.32 1.06 L 1.05 LMMOL/L) Lactic Acid (0.9 - 1.7 mmol/l) 0.7 L 0.8 LChemistry POC Creatinine (0.8 - 1.3 mg/dL) 1.2 1.2 POC Glucose (mg/dL) (70 - 110 119 H 122 HMG/DL)Coagulation Activated Coag Time (74 - 137 SEC) 131 630 H 786 H 08/10 08/10 08/10 08/10 1329 1304 1302 1241Blood Gas O2 Saturation (90 - 100 %) 100.0 100.0 100.0 ABG pH (7.35 - 7.45) 7.430 7.366 7.311 L ABG pCO2 (35.0 - 45 mmHg) 35.7 45.8 H 48.3 H ABG pO2 (80 - 100.0 mmHg) 445.2 *H 529.4 *H 512.0 *H ABG HCO3 (22.0 - 26.0 MMOL/L) 23.7 26.2 H 24.4 ABG Total CO2 24.8 27.6 25.8 ABG Base Excess (-4.0 - 4.0 MMOL/L) -0.4 0.5 -2.4 ABG Hematocrit (37.5 - 50.7 %) 31 L 34 L 45 ABG Hemoglobin (12.5 - 16.9 G/DL) 10.7 L 11.7 L 15.4 Sodium (134 - 147 mmol/L) 137 138 141 Potassium (3.4 - 5.0 mmol/L) 4.7 3.8 3.5 Chloride (100 - 108 mmol/L) 103 101 107 Ionized Calcium (1.12 - 1.32 MMOL/L) 1.07 L 1.03 L 1.11 L Lactic Acid (0.9 - 1.7 mmol/l) 0.9 < 0.3 L < 0.3 LChemistry POC Creatinine (0.8 - 1.3 mg/dL) 1.2 1.2 1.1 POC Glucose (mg/dL) (70 - 110 MG/DL) 119 H 117 H 116 HCoagulation Activated Coag Time (74 - 137 SEC) > 1000 H 08/10 1240 Coagulation Activated Coag Time (74 - 137 SEC) 847 H Recent Impressions:RADIOLOGY - XR CHEST 1 V 08/10 1551 Report Impression - Status: SIGNED Entered: 08/10/2022 1835 IMPRESSION: Status post median sternotomy and CABG with multiple support line and tube placement, as described above. Impression By: Daphne Sullivan M.D.RADIOLOGY - XR CHEST 1 V 08/11 0500 Report Impression - Status: SIGNED Entered: 08/11/2022 0732 IMPRESSION: Cardiomegaly with opacity at the left lung base. Impression By: Miriam Loredo M.D. Results: EKG personally reviewed Treatment Prophylaxis Treatment ProphylaxisDrain(s)/tube(s): Drain(s)/tube(s): chest, urinary catheter Diagnosis, Assessment PlanProblem List/A P: 1. S/P CABG x 5 2. CAD (coronary artery disease) 3. Postoperative pulmonary dysfunction after cardiac surgery 4. HTN (hypertension) Consultants: cardiology, cardiovascular surgeryPlan discussed with: patient Code Status/Resusc. DiscussionResuscitation discussion: Discussed with: patientCode status: full code Free Text DxA P NotesFree Text DxA P Notes:82-year-old male with past medical history of hypertension, atrial fibrillation,supraventricular tachycardia status post ablation who was admitted with reports of multivessel coronary artery disease found on a cardiac catheterization done at [facility]. Patient was transferred to [facility] for CABG. 1. Coronary artery disease-Status post CABG x5-Continue metoprolol, Plavix, aspirin-Chest tubes in place and draining 2. Atrial fibrillation-Continue IV amiodarone for rate control-Continue metoprolol-Monitor and review telemetry 3. Debility-.-PT/OT at 2157 RPT #:[id number] OF [id number]: 01:00G.[id number] for patient [id number]:58:04 [facility] 2022-08-11 11:10:00 [id number]/[id number]+[id number]:10:00 [facility] ProgREPORT#:[id number] REPORT STATUS: SignedDATE:08/11/22 TIME: 1110 PATIENT: BRENNAN AHN UNIT #: [id number]#: [id number] [address] AGE: 82 SEX: M ATTEND: Salazar Hurd [facility] AUTHOR: Shiloh Pimentel BUILDING PRINCIPAL * ALL edits or amendments must be made on the electronic/computer document * GeneralPost-op: day 1Status post:08/10/22CABG x 5 (NGUYEN-LAD, SVG-Olga Lidia, SVG-OM, SVG-LPLA, SVG-PDA)PVIALAAEVH (RGSV) SubjectiveChief complaint:chest paincoronary artery disease Review of SystemsConstitutional:Denies: fatigue, fever, generalized weakness. Skin:Denies: diaphoresis, ecchymosis, itching. Allergy/Immun:Denies: anaphylaxis, hives, itching. Eyes:Denies: itching, diplopia, eye pain. ENT:Denies: nose bleeding, sore throat, throat pain, toothache. Respiratory:Denies: JANG (dyspnea on exertion), pneumonia, SOB. Cardiovascular:Denies: chest pain, palpitations. GI:Denies: abdominal pain, GERD, nausea, vomiting. Musculoskeletal:Denies: extremity pain, extremity swelling, joint pain. Heme:Denies: bleeding, bruising. Neuro:Denies: dizziness, headache, lightheaded, syncope. All systems rev neg: except as marked Objective GeneralVS/I OLast Documented: Result Date Time B/P 99/58 08/11 829 B/P Mean 72 08/11 829 Pulse Ox 100 08/11 828 Pulse 63 08/11 828 Resp 27 08/11 828 Temp 97.7 08/11 0700 FiO2 35 08/11 0315 O2 Delivery High flow nasal cannula 08/11 1999 O2 Flow Rate 1 08/11 1999 24 hour I O ending at 0700: 08/11 0700 08/10 1900 Intake Total 1103.00 3315.00 Output Total 955 1230 Balance 148.00 2085.00 Intake, IV 863.00 1015.00 Intake, Oral 240 300 Intake, Other 2000 Output, Chest 350 220 Tube Drainage Output, 300 Estimated Blood Loss Output, Urine 605 710 Patient 222 lb 222 lb Weight Weight Bed scale Bed scale Measurement Method PATIENT WEIGHT: Weight (lb): 221Weight (oz): 9.03Weight (kg): 100.500 Dietitian Nutrition assessmentThe data set between the solid lines has been imported from the dietitian's assessment. __ BMI Calculated: 30.9Nutrition related diagnosis: Nutrition diagnosis details: Nutrition problem: Nutrition etiology: Nutrition signs and symptoms: Nutrition prescription: Dietitian name: Assessment completed: Physical ExamGeneral appearance: alert, awake, orientedWound/incision: Location:sternal Site condition: dressing clean dry, dressing intactHEENT: anicteric, mucosal membranes moistNeck: full range of motion, non-tenderCardiovascular: BP/pulses equal bilat., regular rate rhythmRespiratory: aerating well, symmetric expansion, no distressAbdomen: soft, non-tenderGenitourinary: longo, urineExtremities: dry, moves allMusculoskeletal: full range of motionNeuro/TEAROOM HOST/HOSTESS: alert, oriented X 3Skin: dry, intactPsychiatry: anxious Current MedicationsMedications:Active Meds + DC'd Last 24 HrsIpratropium [place] (ATROVENT) 500 MCG Q2H PRN PRN INH Cyanocobalamin (Vitamin B-12 500 mcg tab) 500 MCG DAILY PO Ferrous Sulfate (FERROUS SULFATE) 325 MG DAILY PO Bisacodyl (DULCOLAX) 10 MG ONCE PRN RECTAL Magnesium Hydroxide (MILK OF MAGNESIA) 30 ML ONCE PRN PO Tramadol HCl (ULTRAM) 50 MG Q4H PRN PRN PO Clopidogrel Bisulfate (Plavix) 75 MG DAILY PO Polyethylene Glycol (MIRALAX) 17 GM DAILY PO Amiodarone HCl (AMIODARONE HCL) 450 MG ASDIR IV (CKD) Dextrose/Water (D5%W NON-DEHP) 250 MLAmiodarone HCl (NEXTERONE 150MG/D5W 100ML) 100 ML STAT STA IV (DC) Pantoprazole (PROTONIX) 40 MG DAILY@0600 PO Docusate Sodium (COLACE) 100 MG BID PO Metoprolol Tartrate (LOPRESSOR) 12.5 MG Q12HR PO Mupirocin (BACTROBAN 2% 22 GM OINTMENT) 1 APPLIC BID NASAL Sennosides (Senna Lax 8.6 MG TABLET) 17.2 MG BEDTIME PO Aspirin (ASPIRIN) 81 MG DAILY PO Albumin Human (ALBUMINAR 5% 12.5GM/250ML) 250 ML STAT STA IV (DC) Cefazolin Sodium (KEFZOL OR ANCEF) 0 .STK-MED ONE .ROUTE (DC) Amiodarone HCl (CORDARONE) 200 MG TID PO Vancomycin HCl (VANCOMYCIN HCL) 0 .STK-MED ONE .ROUTE (DC) Acetaminophen (TYLENOL) 650 MG Q4H PRN PRN PO Acetaminophen (TYLENOL) 650 MG Q4H PRN PRN RECTAL Albumin Human (ALBUMINAR 25%) 25 GM ASDIR PRN IV Calcium Chloride (CALCIUM CHLORIDE) 1 GM ASDIR PRN IV Cefazolin Sodium (KEFZOL OR ANCEF) 6 GM ONCE ONE IV (DC) Sodium Chloride (SODIUM CHLORIDE 0.9%) 500 MLDextrose/Water (DEXTROSE 10% IN WATER) 125 ML ASDIR PRN IV (CKD) Dextrose/Water (DEXTROSE 10% IN WATER) 250 ML ASDIR PRN IV (CKD) Epinephrine (ADRENALIN CHLORIDE) 4 MG ASDIR IV Dextrose/Water (DEXTROSE 5% WATER) 246 MLGlucagon (GLUCAGON) 1 MG ASDIR PRN IM Insulin Human Regular (HumuLIN R) 100 UNIT ASDIR IV (CKD) Sodium Chloride (SODIUM CHLORIDE 0.9%) 99 MLIpratropium [place] (ATROVENT) 500 MCG Q4H INH Magnesium Sulfate (MAGNESIUM SULFATE 4GM/SWFI 100ML) 100 ML ASDIR PRN IV Magnesium Sulfate (MAGNESIUM SULFATE 2GM/SWFI 50ML) 50 ML ASDIR PRN IV Magnesium Sulfate/Dextrose (MAGNESIUM SULFATE 1GM/D5W 100ML) 100 ML ASDIR PRN IV Morphine Sulfate (morphine SULFATE) 4 MG Q2H PRN PRN IV (DC) Nitroglycerin/Dextrose (NITROGLYCERIN 50,000MCG/D5W 250ML) 250 ML ASDIR IV Norepinephrine Bitartrate (NOREPINEPHRINE 8 MG/NS 250 ML) 250 ML TITRATE IV Ondansetron HCl (ZOFRAN) 4 MG Q6H PRN PRN IV Oxycodone HCl (ROXICODONE) 5 MG Q4H PRN PRN PO (DC) Oxycodone HCl (ROXICODONE) 10 MG Q4H PRN PRN PO (DC) Potassium Chloride (KCL 20MEQ/SWFI 100ML) 100 ML ASDIR PRN IV Sodium Bicarbonate (SODIUM BICARBONATE) 50 MEQ ASDIR PRN IV Sodium Chloride (SODIUM CHLORIDE 0.9%) 1,000 ML .Q20H IV Sodium Chloride (SODIUM CHLORIDE 0.9%) 250 ML Q24H IV Albumin Human (ALBUMINAR-25%) 100 ML .STK-MED ONE IV (DC) Gabapentin (NEURONTIN) 200 MG PREOP ONCALL PO (DC) Cefazolin Sodium (KEFZOL OR ANCEF) 2 GM PREOP ONCALL IV (DC) Vancomycin HCl (VANCOMYCIN HCL) 1,500 MG PREOP ONCALL IV (DC) Sodium Chloride (SODIUM CHLORIDE 0.9%) 250 MLVerapamil HCl (ISOPTIN) 16.6 MG .Q24H ONE IV (DC) Heparin Sodium (Porcine) (HEPARIN SODIUM) 1,660 UNIT Sodium Bicarbonate (SODIUM BICARBONATE) 0.7 ML Nitroglycerin/Dextrose (NITROGLYCERIN 50MG/D5W 250ML) 8.3 MG Lactated Ringer's (LACTATED RINGERS) 949.5 MLMelatonin (Melatonin) 6 MG BEDTIME PRN PRN PO Acetaminophen (TYLENOL EXTRA STRENGTH) 1,000 MG PREOP ONCALL PO (DC) Mupirocin (BACTROBAN 2% 22 GM OINTMENT) 1 APPLIC BID NASAL (DC) Hydralazine HCl (APRESOLINE) 10 MG Q6H PRN PRN IV Metoprolol Tartrate (LOPRESSOR) 50 MG Q12HR PO (DC) ResultsFindings/Data:Laboratory Tests 08/11 08/10 08/10 08/10 0210 2138 1819 1747Blood Gas Puncture Site Art Line Art Line Art Line Art Line O2 Saturation (90 - 100 %) 89.7 L 99.5 98.6 98.9 ABG pH (7.35 - 7.45) 7.304 L 7.317 L 7.321 L 7.283 *L ABG pCO2 (35.0 - 45 mmHg) 46.4 H 45.1 H 46.1 H 44.1 ABG pO2 (80 - 100.0 mmHg) 64.1 L 178.0 H 125.2 H 140.9 H ABG PO2/FiO2 Ratio (mm/Hg) 313.00 352.25 ABG HCO3 (22.0 - 26.0 MMOL/L) 23.0 23.1 23.9 21.0 L ABG Total CO2 24.5 24.4 25.3 22.3 ABG Base Excess (-4.0 - 4.0 -3.3 -3.1 -2.3 -5.8 LMMOL/L) ABG Hematocrit (37.5 - 50.7 %) 28 L 26 L 28 L 30 L ABG Hemoglobin (12.5 - 16.9 G/DL) 9.5 L 8.9 L 9.5 L 10.3 L Sodium (134 - 147 mmol/L) 142 143 142 141 Potassium (3.4 - 5.0 mmol/L) 4.3 3.6 3.7 4.1 Chloride (100 - 108 mmol/L) 107 109 H 108 109 H Ionized Calcium (1.12 - 1.32 1.23 1.17 1.17 1.18MMOL/L) Lactic Acid (0.9 - 1.7 mmol/l) 0.9 1.0 1.6 1.6 Temperature (F) 98 98 O2 Delivery Device Room Air HFNC Adult Vent Adult Vent Vent Mode CPAP/PS CPAP/PS Vent Rate (/MIN) 17 22 FiO2 (%) 40 40 PEEP (cmH2O) 5 5 Pressure Support (cmH2O) 10 10 08/10 08/10 08/10 08/10 1559 1502 1431 1358Blood Gas Puncture Site Art Line O2 Saturation (90 - 100 %) 99.6 100.0 100.0 100.0 ABG pH (7.35 - 7.45) 7.324 L 7.328 L 7.438 7.456 H ABG pCO2 (35.0 - 45 mmHg) 39.1 45.1 H 35.6 33.0 L ABG pO2 (80 - 100.0 mmHg) 200.1 *H 433.9 *H 407.3 *H 360.5 *H ABG PO2/FiO2 Ratio (mm/Hg) 333.50 ABG HCO3 (22.0 - 26.0 MMOL/L) 20.3 L 23.7 24.1 23.2 ABG Total CO2 21.5 25.0 25.2 24.2 ABG Base Excess (-4.0 - 4.0 MMOL/L) -5.7 L -2.4 0.1 -0.3 ABG Hematocrit (37.5 - 50.7 %) 31 L 29 L 28 L 29 L ABG Hemoglobin (12.5 - 16.9 G/DL) 10.5 L 9.9 L 9.7 L 9.9 L Gerry Test N/A Sodium (134 - 147 mmol/L) 139 139 137 138 Potassium (3.4 - 5.0 mmol/L) 4.2 4.3 4.8 5.0 Chloride (100 - 108 mmol/L) 107 105 103 103 Ionized Calcium (1.12 - 1.32 MMOL/L) 1.23 1.30 1.06 L 1.05 L Lactic Acid (0.9 - 1.7 mmol/l) 0.8 L 0.7 L 0.8 L O2 Delivery Device Adult Vent Vent Mode AC Vent Rate (/MIN) 16 FiO2 (%) 60 Tidal Volume (ml) 500 PEEP (cmH2O) 5 08/10 08/10 08/10 1329 1302 1241 Blood Gas O2 Saturation (90 - 100 %) 100.0 100.0 100.0 ABG pH (7.35 - 7.45) 7.430 7.366 7.311 L ABG pCO2 (35.0 - 45 mmHg) 35.7 45.8 H 48.3 H ABG pO2 (80 - 100.0 mmHg) 445.2 *H 529.4 *H 512.0 *H ABG HCO3 (22.0 - 26.0 MMOL/L) 23.7 26.2 H 24.4 ABG Total CO2 24.8 27.6 25.8 ABG Base Excess (-4.0 - 4.0 MMOL/L) -0.4 0.5 -2.4 ABG Hematocrit (37.5 - 50.7 %) 31 L 34 L 45 ABG Hemoglobin (12.5 - 16.9 G/DL) 10.7 L 11.7 L 15.4 Sodium (134 - 147 mmol/L) 137 138 141 Potassium (3.4 - 5.0 mmol/L) 4.7 3.8 3.5 Chloride (100 - 108 mmol/L) 103 101 107 Ionized Calcium (1.12 - 1.32 MMOL/L) 1.07 L 1.03 L 1.11 L Lactic Acid (0.9 - 1.7 mmol/l) 0.9 < 0.3 L < 0.3 L Laboratory Tests 08/11 08/11 08/11 08/11 08/11 0810 0614 0440 0213 0210Chemistry Sodium (134 - 147 mEq/L) 142 Potassium (3.4 - 5.0 mEq/L) 4.2 Chloride (100 - 108 mEq/L) 110 H Carbon Dioxide (21 - 33 mEq/l) 25 Anion Gap (0 - 20) 11 BUN (7 - 18 mg/dL) 17 Creatinine (0.6 - 1.3 mg/dL) 1.3 POC Creatinine (0.8 - 1.3 mg/dL) 1.3 Glomerular Filtr Rate (70 - 80) 55.5 L Glucose (70 - 110 mg/dL) 127 H POC Glucose (70 - 110 MG/DL) 104 108 99 POC Glucose (mg/dL) (70 - 110 MG/DL) 125 H Calcium (8.0 - 10.5 mg/dL) 8.3 Magnesium (1.80 - 2.40 mg/dL) 2.28 Total Bilirubin (0.0 - 1.0 mg/dL) 0.60 Direct Bilirubin (0.0 - 0.30 MG/DL) 0.30 Indirect Bilirubin (MG/DL) 0.30 AST (15 - 37 IUnit/L) 38 H ALT (30 - 65 IUnit/L) 13 L Total Alk Phosphatase (20 - 125 IUnit/L) 46 Total Protein (6.4 - 8.2 g/dL) 5.1 L Albumin (3.4 - 5.0 g/dL) 3.60 08/11 08/10 08/10 08/10 08/10 0052 2138 2025 1819 1747 Chemistry POC Creatinine (0.8 - 1.3 mg/dL) 1.4 H 1.2 1.2 POC Glucose (70 - 110 MG/DL) 98 103 POC Glucose (mg/dL) (70 - 110 MG/DL) 108 137 H 144 H 08/10 08/10 08/10 08/10 08/10 1659 1600 1600 1559 1502Chemistry Sodium (134 - 147 mEq/L) 140 Potassium (3.4 - 5.0 mEq/L) 4.2 Chloride (100 - 108 mEq/L) 106 Carbon Dioxide (21 - 33 mEq/l) 21 Anion Gap (0 - 20) 17 BUN (7 - 18 mg/dL) 17 Creatinine (0.6 - 1.3 mg/dL) 1.2 POC Creatinine (0.8 - 1.3 mg/dL) 1.1 1.2 Glomerular Filtr Rate (70 - 80) 61.1 L Glucose (70 - 110 mg/dL) 151 H POC Glucose (70 - 110 MG/DL) 147 H POC Glucose (mg/dL) (70 - 110 MG/DL) 144 H 122 H Calcium (8.0 - 10.5 mg/dL) 8.4 Magnesium (1.80 - 2.40 mg/dL) 3.07 H 08/10 08/10 08/10 08/10 08/10 1431 1358 1329 1302 1241 Chemistry POC Creatinine (0.8 - 1.3 mg/dL) 1.2 1.2 1.2 1.2 1.1 POC Glucose (mg/dL) (70 - 110 MG/DL) 119 H 122 H 119 H 117 H 116 H Laboratory Tests 08/10 08/10 08/10 08/10 1600 1501 1433 1400 Coagulation INR (0.8 - 1.2) 1.5 H PTT (Hans) (25.0 - 39.5 Seconds) 32.6 PT Patient/Control Mix (9.3 - 12.9 SECONDS) 16.6 H Activated Coag Time (74 - 137 SEC) 131 630 H 786 H 08/10 08/10 1304 1240 Coagulation Activated Coag Time (74 - 137 SEC) > 1000 H 847 H Laboratory Tests 08/11 08/10 0213 1600 Hematology WBC (4.5 - 11.0 x10 3/uL) 12.7 H 18.0 H RBC (4.00 - 5.60 x10 6/uL) 3.10 L 3.53 L Hgb (12.5 - 16.9 g/dL) 9.3 L 10.6 L Hct (37.5 - 50.7 %) 29.2 L 32.4 L MCV (81.0 - 99.0 fL) 94.2 91.8 MCH (27.0 - 33.0 pg) 30.0 30.0 MCHC (33.0 - 37.0 g/dL) 31.8 L 32.7 L RDW (11.5 - 14.5 %) 13.3 13.2 Plt Count (150 - 400 x10 3/uL) 99 L 110 L MPV (7.0 - 9.0 fL) 10.4 H 10.3 H Neut % (Auto) (56.0 - 77.0 %) 85.3 H 93.1 H Lymph % (Auto) (14.0 - 32.0 %) 5.2 L 3.8 L [place] % (Auto) (4.8 - 9.0 %) 8.7 1.8 L Eos % (Auto) (0.3 - 3.7 %) 0.1 L 0.3 Baso % (Auto) (0.0 - 2.0 %) 0.2 0.2 Neut # (Auto) (2.0 - 7.6 x10 3/uL) 10.86 H 16.78 H Lymph # (Auto) (1.0 - 3.8 x10 3/uL) 0.66 L 0.69 L [place] # (Auto) (0.1 - 0.8 x10 3/uL) 1.10 H 0.32 Eos # (Auto) (0.0 - 0.2 x10 3/uL) 0.01 0.05 Baso # (Auto) (0.0 - 0.2 x10 3/uL) 0.02 0.03 Abs Immat Gran (auto) (0.00 - 0.03 x10 3/uL) 0.06 H 0.15 H Add Manual Diff NO NO Immature Gran % (0.0 - 2.0 %) 0.5 0.8 Nucleated RBC % (0 - 0 %) 0.0 0.0 Nucleated RBCs # (Man) (0.0 - 0.1 x10 3/uL) 0.00 0.00 Platelet Estimate (ADEQUATE THOUSAND) 100-125 Radiology data:Recent Impressions:RADIOLOGY - XR CHEST 1 V 08/10 1551 Report Impression - Status: SIGNED Entered: 08/10/2022 1835 IMPRESSION: Status post median sternotomy and CABG with multiple support line and tube placement, as described above. Impression By: Daphne Sullivan M.D.RADIOLOGY - XR CHEST 1 V 08/11 0500 Report Impression - Status: SIGNED Entered: 08/11/2022 0732 IMPRESSION: Cardiomegaly with opacity at the left lung base. Impression By: Miriam Loredo M.D. Results: labs reviewed, vital signs stable, rythm personally rev'd, x-ray personally reviewed, current med profile rev'd Treatment Prophylaxis Treatment ProphylaxisOxygen: nasal cannulaLines: arterial, CVC, peripheralCVC/PICC documentation:The data below has been imported from nursing documentation. Any exceptions have been noted below under Provider comments. CVC/PICC insertion date/time: CVC multi lumen triple Internal jugular Right Inserted 08/10/22 1030 Provider comments on imported nursing data: [] Drain(s)/tube(s): Drain(s)/tube(s): chest, urinary catheter Diagnosis, Assessment PlanHospital course to date:82 year old with PMH of hypertension, atrial fibrillation, On Eliquis, Hx of SVT ablation 20 years ago transferred to [facility] with new findings of multi-vessel CAD. He reports he was woken from Sleep on Sunday AM with COmplaints of chest pains. EMS aas called and patient was taken to [facility]. He underwent LHC and found to have multi-vessel CAD by Dr Sanchez. Patient was transferred to [facility] for CABG. Patient lives independently. Daughter is at bedside. Patient reports last dose of Elliquis was Sunday AM. Echo was done at [facility] showing EF 55%, Mild MR, Mild AI, mild LVH. According to his records, he has a hx of Chronic kidney disease with baseline Creatine reportedly 1.5. He does report he has seen a renal MD in the past. Assessment/ Plan1) CAD, Mutli-vessel2) hypertension Continue BBLKR Add Norvasc 5 mg3) Atrial fibrillation. Last dose of Eliquis Sunday AM Obtain EKG4) BPH Continue flomax Workup for CABG underway. Patient was seen and examined by Dr Hurd. Coronary artery bypass surgery was discussed with the patient. The risk of the operation,including the STS score, cristian of blleding, infection, heart attack, stroke, Tracheostomy etc discussed with the patient. CT chest, carotid US, Vein mapping ordered. 3/10/23POD 1 s/p CABG x 5 (NGUYEN-LAD, SVG-Olga Lidia, SVG-OM, SVG-LPLA, SVG-PDA), PVI, ALAA, EVH (RGSV)Patient hemodynamically stable this morning, having episodes of vagal response and BP drops 20 points, SR and sinus arrythmnia noted on monitoring analyst, V epicardial wires on backup rate of 50Amiodarone bolus and dripKeep MS chest tube and monitor outputs, DC LP chest tube after ambulationMinimal oxygen requirements on 2l nasal cannula, encourage deep breathing and I-S useCXR and labs reviewedPain managementGlycemic control on insulin dripCardiac diet, nutritional supplementsBowel regimen, + gasStrict I Os, daily weights, albmuin x 1 given for decreased UOP- monitor hourlySCDs for DVT and PPI for GI prophylaxisPT/OTMonitor patient closely in CVICU, continue supportive carePatient seen with Dr. Hurd, plan of care discussed with ICU team. at 1509 at 0947 RPT #:[id number] OF REPORTPRProgress [id number] for patient [id number]:09:58 [facility] 2022-08-11 08:49:00 [id number] VmesgUcHBFzMydpSsu/[id number] /[id number]:49:00 [facility] ([facility])Critical Care Progress NoteREPORT#:[id number] REPORT STATUS: SignedDATE:08/11/22 TIME: 0849 PATIENT: BRENNAN AHN UNIT #: [id number]#: [id number] [address] [birth year] AGE: 82 SEX: M ATTEND: Salazar Hurd AUTHOR: Breezy Nance MD * ALL edits or amendments must be made on the electronic/computer document * SubjectiveChief complaint:CABGHPI:82-year-old male with history of hypertension, A-fib on Eliquis, SVT s/p ablation, CKD and possible Alzheimer disease, who presented with chest pain and found to have multivessel coronary artery disease on cardiac cath. Patient underwent CABG x5 today on 08/10/2022. Has LVH with preserved EF. Crystalloid 1 L,Cell Saver 425, urine output 350. Surgery went well and patient was transferred to CVICU postop in a stable surgical condition. He is currently intubated on 4 mics of Levophed, 2 mics of epinephrine and insulin drip. Comments:The patient offers no new complaintsNo SOBWas placed on nasal cannula from room airPaced at 60Off pressorsLow urine outputAfebrile Review of Systems Free Text ROS NotesFree Text ROS Notes:12 point Review of Systems was performed to the extent possible including discussion with the nursing staff and review of vital signs and all data. All systems negative other than pertinent negative/positive findings mentioned in the interval history section. Objective GeneralVS/I OLast Documented: Result Date Time B/P 99/58 08/11 0830 B/P Mean 72 08/11 0830 Pulse Ox 100 08/11 0829 Pulse 63 08/11 0829 Resp 27 08/11 0829 Temp 36.5 08/11 0700 FiO2 35 08/11 0315 O2 Delivery High flow nasal cannula 08/11 1999 O2 Flow Rate 1 08/11 1999 24 hour I O ending at 0700: 08/11 0700 08/10 1900 Intake Total 1103.00 3315.00 Output Total 955 1230 Balance 148.00 2085.00 Intake, IV 863.00 1015.00 Intake, Oral 240 300 Intake, Other 2000 Output, Chest 350 220 Tube Drainage Output, 300 Estimated Blood Loss Output, Urine 605 710 Patient 100.5 kg 100.5 kg Weight Weight Bed scale Bed scale Measurement Method PATIENT WEIGHT: Weight (lb): 221Weight (oz): 9.03Weight (kg): 100.500 Medications:Active Meds + DC'd Last 24 HrsIpratropium [place] (ATROVENT) 500 MCG Q2H PRN PRN INH Cyanocobalamin (Vitamin B-12 500 mcg tab) 500 MCG DAILY PO Ferrous Sulfate (FERROUS SULFATE) 325 MG DAILY PO Bisacodyl (DULCOLAX) 10 MG ONCE PRN RECTAL Magnesium Hydroxide (MILK OF MAGNESIA) 30 ML ONCE PRN PO Clopidogrel Bisulfate (Plavix) 75 MG DAILY PO Polyethylene Glycol (MIRALAX) 17 GM DAILY PO Amiodarone HCl (AMIODARONE HCL) 450 MG ASDIR IV (CKD) Dextrose/Water (D5%W NON-DEHP) 250 MLAmiodarone HCl (NEXTERONE 150MG/D5W 100ML) 100 ML STAT STA IV (DC) Pantoprazole (PROTONIX) 40 MG DAILY@0600 PO Docusate Sodium (COLACE) 100 MG BID PO Metoprolol Tartrate (LOPRESSOR) 12.5 MG Q12HR PO Mupirocin (BACTROBAN 2% 22 GM OINTMENT) 1 APPLIC BID NASAL Sennosides (Senna Lax 8.6 MG TABLET) 17.2 MG BEDTIME PO Aspirin (ASPIRIN) 81 MG DAILY PO Albumin Human (ALBUMINAR 5% 12.5GM/250ML) 250 ML STAT STA IV (DC) Cefazolin Sodium (KEFZOL OR ANCEF) 0 .STK-MED ONE .ROUTE (DC) Amiodarone HCl (CORDARONE) 200 MG TID PO Vancomycin HCl (VANCOMYCIN HCL) 0 .STK-MED ONE .ROUTE (DC) Acetaminophen (TYLENOL) 650 MG Q4H PRN PRN PO Acetaminophen (TYLENOL) 650 MG Q4H PRN PRN RECTAL Albumin Human (ALBUMINAR 25%) 25 GM ASDIR PRN IV Calcium Chloride (CALCIUM CHLORIDE) 1 GM ASDIR PRN IV Cefazolin Sodium (KEFZOL OR ANCEF) 6 GM ONCE ONE IV (CKD) Sodium Chloride (SODIUM CHLORIDE 0.9%) 500 MLDextrose/Water (DEXTROSE 10% IN WATER) 125 ML ASDIR PRN IV (CKD) Dextrose/Water (DEXTROSE 10% IN WATER) 250 ML ASDIR PRN IV (CKD) Epinephrine (ADRENALIN CHLORIDE) 4 MG ASDIR IV Dextrose/Water (DEXTROSE 5% WATER) 246 MLGlucagon (GLUCAGON) 1 MG ASDIR PRN IM Insulin Human Regular (HumuLIN R) 100 UNIT ASDIR IV (CKD) Sodium Chloride (SODIUM CHLORIDE 0.9%) 99 MLIpratropium [place] (ATROVENT) 500 MCG Q4H INH Magnesium Sulfate (MAGNESIUM SULFATE 4GM/SWFI 100ML) 100 ML ASDIR PRN IV Magnesium Sulfate (MAGNESIUM SULFATE 2GM/SWFI 50ML) 50 ML ASDIR PRN IV Magnesium Sulfate/Dextrose (MAGNESIUM SULFATE 1GM/D5W 100ML) 100 ML ASDIR PRN IV Morphine Sulfate (morphine SULFATE) 4 MG Q2H PRN PRN IV (DC) Nitroglycerin/Dextrose (NITROGLYCERIN 50,000MCG/D5W 250ML) 250 ML ASDIR IV Norepinephrine Bitartrate (NOREPINEPHRINE 8 MG/NS 250 ML) 250 ML TITRATE IV Ondansetron HCl (ZOFRAN) 4 MG Q6H PRN PRN IV Oxycodone HCl (ROXICODONE) 5 MG Q4H PRN PRN PO Oxycodone HCl (ROXICODONE) 10 MG Q4H PRN PRN PO Potassium Chloride (KCL 20MEQ/SWFI 100ML) 100 ML ASDIR PRN IV Sodium Bicarbonate (SODIUM BICARBONATE) 50 MEQ ASDIR PRN IV Sodium Chloride (SODIUM CHLORIDE 0.9%) 1,000 ML .Q20H IV Sodium Chloride (SODIUM CHLORIDE 0.9%) 250 ML Q24H IV Albumin Human (ALBUMINAR-25%) 100 ML .STK-MED ONE IV (DC) Papaverine HCl (PAPAVERINE HCL) 0 .STK-MED ONE IV (DC) Cefazolin Sodium (KEFZOL OR ANCEF) 0 .STK-MED ONE .ROUTE (DC) Dexamethasone Sodium Phosphate (DECADRON) 0 .STK-MED ONE .ROUTE (DC) Etomidate (AMIDATE) 0 .STK-MED ONE IV (DC) Fentanyl Citrate (SUBLIMAZE) 0 .STK-MED ONE IV (DC) Lidocaine HCl (XYLOCAINE) 0 .STK-MED ONE .ROUTE (DC) Ondansetron HCl (ZOFRAN) 0 .STK-MED ONE .ROUTE (DC) Rocuronium [place] (ZEMURON) 0 .STK-MED ONE IV (DC) Aminocaproic Acid (AMICAR) 0 .STK-MED ONE IV (DC) Epinephrine HCl (EPINEPHrine 4 mg/D5W 250 mL) 250 ML .STK-MED ONE IV (DC) Heparin Sodium (HEPARIN SODIUM) 0 .STK-MED ONE .ROUTE (DC) Insulin Human Regular (HumuLIN R 100 UNITS/NS 100ML) 100 ML .STK-MED ONE IV (DC) Nitroglycerin/Dextrose (NITROGLYCERIN 50,000MCG/D5W 250ML) 250 ML .STK-MED ONE IV (DC) Norepinephrine Bitartrate (NOREPINEPHRINE 8 MG/NS 250 ML) 250 ML .STK-MED ONE IV (DC) Protamine Sulfate (PROTAMINE SULFATE) 0 .STK-MED ONE IV (DC) Sodium Chloride (SODIUM CHLORIDE 0.9%) 0 .STK-MED ONE IV (DC) Calcium Chloride (CALCIUM CHLORIDE) 0 .STK-MED ONE IV (DC) Magnesium Sulfate (MAGNESIUM SULFATE) 0 .STK-MED ONE .ROUTE (DC) Ropivacaine (NAROPIN 0.5% 150 MG/30mL) 0 .STK-MED ONE .ROUTE (DC) Gabapentin (NEURONTIN) 200 MG PREOP ONCALL PO (DC) Cefazolin Sodium (KEFZOL OR ANCEF) 2 GM PREOP ONCALL IV (DC) Vancomycin HCl (VANCOMYCIN HCL) 1,500 MG PREOP ONCALL IV (DC) Sodium Chloride (SODIUM CHLORIDE 0.9%) 250 MLVerapamil HCl (ISOPTIN) 16.6 MG .Q24H ONE IV (DC) Heparin Sodium (Porcine) (HEPARIN SODIUM) 1,660 UNIT Sodium Bicarbonate (SODIUM BICARBONATE) 0.7 ML Nitroglycerin/Dextrose (NITROGLYCERIN 50MG/D5W 250ML) 8.3 MG Lactated Ringer's (LACTATED RINGERS) 949.5 MLMelatonin (Melatonin) 6 MG BEDTIME PRN PRN PO Acetaminophen (TYLENOL EXTRA STRENGTH) 1,000 MG PREOP ONCALL PO (DC) Mupirocin (BACTROBAN 2% 22 GM OINTMENT) 1 APPLIC BID NASAL (DC) Hydralazine HCl (APRESOLINE) 10 MG Q6H PRN PRN IV Metoprolol Tartrate (LOPRESSOR) 50 MG Q12HR PO (DC) ResultsFindings/data:Laboratory Tests 08/11 08/10 08/10 08/10 0210 2138 0976 1747Blood Gas Puncture Site Art Line Art Line Art Line Art Line O2 Saturation (90 - 100 %) 89.7 L 99.5 98.6 98.9 ABG pH (7.35 - 7.45) 7.304 L 7.317 L 7.321 L 7.283 *L ABG pCO2 (35.0 - 45 mmHg) 46.4 H 45.1 H 46.1 H 44.1 ABG pO2 (80 - 100.0 mmHg) 64.1 L 178.0 H 125.2 H 140.9 H ABG PO2/FiO2 Ratio (mm/Hg) 313.00 352.25 ABG HCO3 (22.0 - 26.0 MMOL/L) 23.0 23.1 23.9 21.0 L ABG Total CO2 24.5 24.4 25.3 22.3 ABG Base Excess (-4.0 - 4.0 -3.3 -3.1 -2.3 -5.8 LMMOL/L) ABG Hematocrit (37.5 - 50.7 %) 28 L 26 L 28 L 30 L ABG Hemoglobin (12.5 - 16.9 G/DL) 9.5 L 8.9 L 9.5 L 10.3 L Sodium (134 - 147 mmol/L) 142 143 142 141 Potassium (3.4 - 5.0 mmol/L) 4.3 3.6 3.7 4.1 Chloride (100 - 108 mmol/L) 107 109 H 108 109 H Ionized Calcium (1.12 - 1.32 1.23 1.17 1.17 1.18MMOL/L) Lactic Acid (0.9 - 1.7 mmol/l) 0.9 1.0 1.6 1.6 Temperature (F) 98 98 O2 Delivery Device Room Air HFNC Adult Vent Adult Vent Vent Mode CPAP/PS CPAP/PS Vent Rate (/MIN) 17 22 FiO2 (%) 40 40 PEEP (cmH2O) 5 5 Pressure Support (cmH2O) 10 10 08/10 08/10 08/10 08/10 1559 1502 1431 1358Blood Gas Puncture Site Art Line O2 Saturation (90 - 100 %) 99.6 100.0 100.0 100.0 ABG pH (7.35 - 7.45) 7.324 L 7.328 L 7.438 7.456 H ABG pCO2 (35.0 - 45 mmHg) 39.1 45.1 H 35.6 33.0 L ABG pO2 (80 - 100.0 mmHg) 200.1 *H 433.9 *H 407.3 *H 360.5 *H ABG PO2/FiO2 Ratio (mm/Hg) 333.50 ABG HCO3 (22.0 - 26.0 MMOL/L) 20.3 L 23.7 24.1 23.2 ABG Total CO2 21.5 25.0 25.2 24.2 ABG Base Excess (-4.0 - 4.0 MMOL/L) -5.7 L -2.4 0.1 -0.3 ABG Hematocrit (37.5 - 50.7 %) 31 L 29 L 28 L 29 L ABG Hemoglobin (12.5 - 16.9 G/DL) 10.5 L 9.9 L 9.7 L 9.9 L Gerry Test N/A Sodium (134 - 147 mmol/L) 139 139 137 138 Potassium (3.4 - 5.0 mmol/L) 4.2 4.3 4.8 5.0 Chloride (100 - 108 mmol/L) 107 105 103 103 Ionized Calcium (1.12 - 1.32 MMOL/L) 1.23 1.30 1.06 L 1.05 L Lactic Acid (0.9 - 1.7 mmol/l) 0.8 L 0.7 L 0.8 L O2 Delivery Device Adult Vent Vent Mode AC Vent Rate (/MIN) 16 FiO2 (%) 60 Tidal Volume (ml) 500 PEEP (cmH2O) 5 08/10 08/10 08/10 08/10 1329 1302 1241 1108 Blood Gas Puncture Site Art Line O2 Saturation (90 - 100 %) 100.0 100.0 100.0 99.8 ABG pH (7.35 - 7.45) 7.430 7.366 7.311 L 7.370 ABG pCO2 (35.0 - 45 mmHg) 35.7 45.8 H 48.3 H 46.6 H ABG pO2 (80 - 100.0 mmHg) 445.2 *H 529.4 *H 512.0 *H 240.7 *H ABG HCO3 (22.0 - 26.0 MMOL/L) 23.7 26.2 H 24.4 27.1 H ABG Total CO2 24.8 27.6 25.8 28.6 ABG Base Excess (-4.0 - 4.0 MMOL/L) -0.4 0.5 -2.4 1.7 ABG Hematocrit (37.5 - 50.7 %) 31 L 34 L 45 52 H ABG Hemoglobin (12.5 - 16.9 G/DL) 10.7 L 11.7 L 15.4 17.8 H Sodium (134 - 147 mmol/L) 137 138 141 144 Potassium (3.4 - 5.0 mmol/L) 4.7 3.8 3.5 3.7 Chloride (100 - 108 mmol/L) 103 101 107 106 Ionized Calcium (1.12 - 1.32 MMOL/L) 1.07 L 1.03 L 1.11 L 1.27 Lactic Acid (0.9 - 1.7 mmol/l) 0.9 < 0.3 L < 0.3 L 0.5 L Temperature (F) 97.5 O2 Delivery Device AeroMask Laboratory Tests 08/11 08/11 08/11 08/11 08/11 0810 0614 0440 0213 0210Chemistry Sodium (134 - 147 mEq/L) 142 Potassium (3.4 - 5.0 mEq/L) 4.2 Chloride (100 - 108 mEq/L) 110 H Carbon Dioxide (21 - 33 mEq/l) 25 Anion Gap (0 - 20) 11 BUN (7 - 18 mg/dL) 17 Creatinine (0.6 - 1.3 mg/dL) 1.3 POC Creatinine (0.8 - 1.3 mg/dL) 1.3 Glomerular Filtr Rate (70 - 80) 55.5 L Glucose (70 - 110 mg/dL) 127 H POC Glucose (70 - 110 MG/DL) 104 108 99 POC Glucose (mg/dL) (70 - 110 MG/DL) 125 H Calcium (8.0 - 10.5 mg/dL) 8.3 Magnesium (1.80 - 2.40 mg/dL) 2.28 Total Bilirubin (0.0 - 1.0 mg/dL) 0.60 Direct Bilirubin (0.0 - 0.30 MG/DL) 0.30 Indirect Bilirubin (MG/DL) 0.30 AST (15 - 37 IUnit/L) 38 H ALT (30 - 65 IUnit/L) 13 L Total Alk Phosphatase (20 - 125 IUnit/L) 46 Total Protein (6.4 - 8.2 g/dL) 5.1 L Albumin (3.4 - 5.0 g/dL) 3.60 08/11 08/10 08/10 08/10 08/10 0052 2138 2025 1819 1747 Chemistry POC Creatinine (0.8 - 1.3 mg/dL) 1.4 H 1.2 1.2 POC Glucose (70 - 110 MG/DL) 98 103 POC Glucose (mg/dL) (70 - 110 MG/DL) 108 137 H 144 H 08/10 08/10 08/10 08/10 08/10 1659 1600 1600 1559 1502Chemistry Sodium (134 - 147 mEq/L) 140 Potassium (3.4 - 5.0 mEq/L) 4.2 Chloride (100 - 108 mEq/L) 106 Carbon Dioxide (21 - 33 mEq/l) 21 Anion Gap (0 - 20) 17 BUN (7 - 18 mg/dL) 17 Creatinine (0.6 - 1.3 mg/dL) 1.2 POC Creatinine (0.8 - 1.3 mg/dL) 1.1 1.2 Glomerular Filtr Rate (70 - 80) 61.1 L Glucose (70 - 110 mg/dL) 151 H POC Glucose (70 - 110 MG/DL) 147 H POC Glucose (mg/dL) (70 - 110 MG/DL) 144 H 122 H Calcium (8.0 - 10.5 mg/dL) 8.4 Magnesium (1.80 - 2.40 mg/dL) 3.07 H 08/10 08/10 08/10 08/10 08/10 1431 1358 1329 1302 1241 Chemistry POC Creatinine (0.8 - 1.3 mg/dL) 1.2 1.2 1.2 1.2 1.1 POC Glucose (mg/dL) (70 - 110 MG/DL) 119 H 122 H 119 H 117 H 116 H 08/10 1108 Chemistry POC Creatinine (0.8 - 1.3 mg/dL) 1.2 POC Glucose (mg/dL) (70 - 110 MG/DL) 97 Laboratory Tests 08/10 08/10 08/10 08/10 1600 1501 1433 1400 Coagulation INR (0.8 - 1.2) 1.5 H PTT ([place]) (25.0 - 39.5 Seconds) 32.6 PT Patient/Control Mix (9.3 - 12.9 SECONDS) 16.6 H Activated Coag Time (74 - 137 SEC) 131 630 H 786 H 08/10 08/10 1304 1240 Coagulation Activated Coag Time (74 - 137 SEC) > 1000 H 847 H Laboratory Tests 08/11 08/10 0213 1600 Hematology WBC (4.5 - 11.0 x10 3/uL) 12.7 H 18.0 H RBC (4.00 - 5.60 x10 6/uL) 3.10 L 3.53 L Hgb (12.5 - 16.9 g/dL) 9.3 L 10.6 L Hct (37.5 - 50.7 %) 29.2 L 32.4 L MCV (81.0 - 99.0 fL) 94.2 91.8 MCH (27.0 - 33.0 pg) 30.0 30.0 MCHC (33.0 - 37.0 g/dL) 31.8 L 32.7 L RDW (11.5 - 14.5 %) 13.3 13.2 Plt Count (150 - 400 x10 3/uL) 99 L 110 L MPV (7.0 - 9.0 fL) 10.4 H 10.3 H Neut % (Auto) (56.0 - 77.0 %) 85.3 H 93.1 H Lymph % (Auto) (14.0 - 32.0 %) 5.2 L 3.8 L [place] % (Auto) (4.8 - 9.0 %) 8.7 1.8 L Eos % (Auto) (0.3 - 3.7 %) 0.1 L 0.3 Baso % (Auto) (0.0 - 2.0 %) 0.2 0.2 Neut # (Auto) (2.0 - 7.6 x10 3/uL) 10.86 H 16.78 H Lymph # (Auto) (1.0 - 3.8 x10 3/uL) 0.66 L 0.69 L [place] # (Auto) (0.1 - 0.8 x10 3/uL) 1.10 H 0.32 Eos # (Auto) (0.0 - 0.2 x10 3/uL) 0.01 0.05 Baso # (Auto) (0.0 - 0.2 x10 3/uL) 0.02 0.03 Abs Immat Gran (auto) (0.00 - 0.03 x10 3/uL) 0.06 H 0.15 H Add Manual Diff NO NO Immature Gran % (0.0 - 2.0 %) 0.5 0.8 Nucleated RBC % (0 - 0 %) 0.0 0.0 Nucleated RBCs # (Man) (0.0 - 0.1 x10 3/uL) 0.00 0.00 Platelet Estimate (ADEQUATE THOUSAND) 100-125 Laboratory Tests 08/11/22 0213:[Embedded Image Not Available] 08/10/22 1600:[Embedded Image Not Available]Microbiology:08/09 1825 NASAL: MRSA DNA Surveillance Screen - ORD08/09 170 NASAL: MSSA Surveillance Screen - COLB08/09 170 NASAL: MRSA DNA Surveillance Screen - COLB Radiology dataRecent Impressions:RADIOLOGY - XR CHEST 1 V 08/10 1551 Report Impression - Status: SIGNED Entered: 08/10/2022 1835 IMPRESSION: Status post median sternotomy and CABG with multiple support line and tube placement, as described above. Impression By: Daphne Sullivan M.D.RADIOLOGY - XR CHEST 1 V 08/11 0500 Report Impression - Status: SIGNED Entered: 08/11/2022 0732 IMPRESSION: Cardiomegaly with opacity at the left lung base. Impression By: Miriam Loredo M.D. Free Text Obj NotesFree Text Obj Notes:GEN: Patient is calm and in no distress.NECK: Supple, no JVD or thrush. No adenopathy.LUNGS: Clear lungs, no wheezes, no rales or crackles.CV: Irregularly irregular, no murmurs are heard. No S3 or rubs. GI: Abdomen is soft, not tender. Bowel sounds are present.EXT/Musc: No edema. No clubbing or cyanosis noted. Skin is warm.NEURO: Awake, alert and oriented x 3. No focal findings. Diagnosis, Assessment PlanProblem list/A P: 1. CAD (coronary artery disease) 2. Postoperative pulmonary dysfunction after cardiac surgery 3. S/P CABG x 5 Free text A P:82-year-old male with history of hypertension, A-fib on Eliquis, SVT s/p ablation, CKD and possible Alzheimer disease, who presented with chest pain and found to have multivessel coronary artery disease on cardiac cath. Patient underwent CABG x5 today on 08/10/2022. Has LVH with preserved EF. Crystalloid 1 L,Cell Saver 425, urine output 350. Surgery went well and patient was transferred to CVICU postop in a stable surgical condition. He is currently intubated on 4 mics of Levophed, 2 mics of epinephrine and insulin drip. Neuro: Appears intact, keep off sedation, multimodal pain controlRespiratory: Sats well, CPAP as tolerated, plan for extubation, ABG and CXR reviewedCardiovascular: HD unstable on vasopressors, attempt to wean, keep CTs to suctionRenal: strict I/Os, monitor Cr and electrolytes, LA clear, judicious resuscitationGI: bedside swallow then oral diet after extubation, bowel regimen, monitor LFTsID: reactive leukocytosis, trend WBC, continue periop antibiotics per protocolHem: acute blood loss anemia, monitor Hgb and CTs output, transfuse as neededEndo: Blood glucose control with insulin gtt per protocolMisc: PTOT consult, DVT and GI prophylaxis with DAPT and PPI 10Continue supplemental oxygen and titrate FiO2 to keep saturation more than 90%.Inhaled bronchodilators as neededIS and LVEPJudicious pain controlAspirin and PlavixAmiodarone p.o.MetoprololAmiodarone bolus and drip1 albumin bolus1 dose of Lasix 20 mgDopamine drip at 3 micsMonitor kidney function and trend creatinineMonitor and replete electrolytesStrict I O'sCardiac diet with bowel regimenBlood glucose control, sliding scale insulinVTE prophylaxis, DOAC'sStress ulcer prophylaxis, ProtonixDiscussed with ICU team and cardiac surgeryCritical care time 41 minutes at 1833 RPT #:[id number] OF REPORTPRProgress [id number]:49:[id number] for patient [id number]:33:41 HCACL 2022-08-10 18:48:00 [id number] [id number] [address] PATIENT NAME: BRENNAN AHN ADMIT DATE: 08/09/22ACCOUNT NO: [id number] ROOM NO: [facility] [place] AGE: 82 REPORT TYPE: OPERATIVE REPORT SEX: M ADMITTING PHYSICIAN:Salazar Hurd MD ATTENDING PHYSICIAN:Salazar Hurd MD OPERATION DATE: 08/10/2022 PREOPERATIVE DIAGNOSES:1. Coronary artery disease.2. Paroxysmal atrial fibrillation. POSTOPERATIVE DIAGNOSES:1. Coronary artery disease.2. Paroxysmal atrial fibrillation. PROCEDURES:1. Coronary artery bypass graft surgery x5 (NGUYEN to LAD, saphenous vein todiagonal, saphenous vein to marginal, saphenous vein to left ROMARIO, saphenous veinto PDA).2. Pulmonary vein isolation.3. Amputation of left atrial appendage.4. Endoscopic vein harvest (right great saphenous vein). SURGEON: Salazar Hurd MD ASSISTANTS:1. Ranjan Esquivel MD2. Brenton Kirkpatrick ANESTHESIOLOGIST: Dr. Wood. ANESTHESIA: General endotracheal anesthesia. ESTIMATED BLOOD LOSS: 100 mL. INDICATIONS: Mr. Ahn is an 82-year-old gentleman with severe triple-vesselcoronary artery disease and paroxysmal atrial fibrillation. After duepreoperative counseling, he was brought to the operating room today for surgicalrevascularization and pulmonary vein isolation with amputation of left atrialappendage. FINDINGS:1. Vein was harvested from the right leg using endoscopic vein harvesttechnique. Vein was of satisfactory quality, measuring about 4 mm in size.2. Osteoporotic sternum.3. Good quality NGUYEN measuring 2 mm in size with excellent flow.4. Normal pericardium without any intrapericardial adhesions and minimalintrapericardial fluid. PATIENT NAME: BRENNAN AHN 5. LAD 2 mm, good quality artery.6. Diagonal 2 mm, good quality artery.7. Marginal 2 mm, intramyocardial artery.8. Left ROMARIO 2 mm, good quality artery.9. PDA 2 mm, good quality artery.10. Pulmonary vein isolation was performed by creating a box lesion aroundright and left superior and inferior pulmonary vein using AtriCure device.11. Left atrial appendage was amputated half a centimeter from the base. Thiswas then repaired with two layers of running pledgeted 4-0 Prolene suture. DESCRIPTION OF PROCEDURE: Mr. Ahn was identified in the preoperativeholding unit and brought to the OR and placed supine on the operating table.After induction of general endotracheal anesthesia, Longo catheter, radialarterial line, antibiotics were placed. The patient's anterior torso and bothlower extremities were prepped and draped in standard surgical fashion. Veinwas harvested from the right leg using endoscopic vein harvest technique.Following harvesting of vein, subcutaneous tissue was closed with 2-0 Vicryl andskin with 4-0 Vicryl. Simultaneously, median sternotomy was performed and theleft internal mammary artery was harvested. The patient was heparinized.Pericardium was opened longitudinally and pericardial well was created.Cardiopulmonary bypass was instituted using ascending aorta and 3-stage cannulain the right atrium. The patient was cooled to 34 degrees centigrade.Crossclamp was applied and the heart was arrested with 1.5 liters of antegradecold blood cardioplegia. Cardioplegia was repeated at an interval of 10 minutesthroughout the duration of cross-clamp. We began by dissecting on the rightsuperior and inferior pulmonary vein. A red rubber catheter was passed aroundthe right-sided vein. This was then used to guide the AtriCure device and a boxlesion x2 was created around the right superior and inferior pulmonary veinsusing AtriCure device. Next, dissection was performed on the left superior andinferior pulmonary vein. Red rubber catheter was passed. This was used toguide the AtriCure device and a box lesion x2 were created around left superiorand inferior pulmonary veins using AtriCure device. Next, left atrial appendagewas amputated half a centimeter from the base. This was then repaired with twolayers of running pledgeted 4-0 Prolene suture. Next, the PDA was explored.This was a good quality artery, measuring 2 mm in size. Arteriotomy wasperformed with a [place] blade and extended with Blackman scissors. A segment ofpreviously harvested reverse saphenous vein was anastomosed in an [id number] using running 7-0 Prolene suture. Vein graft to PDA was brought along ofthe right side of the heart and sized. Aortotomy was performed on the rightaspect of the aorta using 4 mm punch. Proximal anastomosis of the PDA graft wasthen performed running 6-0 Prolene suture. Next, the left ROMARIO was explored.This was a good quality artery, measuring 2 mm in size. Arteriotomy wasperformed with a [place] blade and extended with Blackman scissors. A segment ofpreviously harvested reverse saphenous vein was anastomosed in an yyc-np-[id number] using running 7-0 Prolene suture. Vein graft to left ROMARIO was broughtalong the left side of the heart and sized. Aortotomy was performed on the leftaspect of the aorta using 4 mm punch. Proximal anastomosis of the left ROMARIO graftwas then performed using running 6-0 Prolene suture. Next, the marginal wasexplored. This was intramyocardial artery measuring about 2 mm in size.Arteriotomy was performed with [place] blade and extended with Blackman scissors. Asegment of previously harvested reverse saphenous vein was anastomosed in [id number] manner using running 7-0 Prolene suture. Vein graft to marginal wasbrought along the left side of the heart and sized. Aortotomy was performed onthe left aspect of the aorta using 4 mm punch. Proximal anastomosis of the PATIENT NAME: BRENNAN AHN marginal graft was then performed using running 6-0 Prolene suture. Rewarmingwas commenced at this stage. Next, the diagonal was explored. This was a goodquality artery, measuring 2 mm in size. Arteriotomy was performed with a Beaverblade and extended with Blackman scissors. A segment of previously harvestedreverse saphenous vein was anastomosed in an end-to-side manner using running7-0 Prolene suture. Vein graft to diagonal was brought to the left side of theheart and sized. Aortotomy was performed on the left aspect of the aorta using4 mm punch. Proximal anastomosis of the diagonal graft was then performed usingrunning 6-0 Prolene suture. Finally, LAD was explored. This was a good qualityartery, measuring 2 mm in size. Arteriotomy was performed with a [place] bladeand extended with Blackman scissors. NGUYEN was anastomosed in end-to-side mannerusing running 8-0 Prolene suture. NGUYEN was tacked to the epicardium using twointerrupted 6-0 Prolene sutures. A slit was made in the pericardium on the leftaspect, so as to accommodate the NGUYEN. Careful de-aeration was performed andthe crossclamp was released. One ventricular wire was placed. A 28-Frenchchest tube was placed in the mediastinum and 28-angled chest tube was placed inthe left pleural space. Once the patient was at temperature, he was weaned offcardiopulmonary bypass with minimal inotropic support. Heparin was reversedwith protamine. Decannulation was uneventful. After confirming hemostasis, thechest was closed in layers using stainless steel wires for the sternum, #1Vicryl for the fascia, 2-0 Vicryl for the subcutaneous tissue and 4-0 Vicryl forthe skin. The patient was transferred to the intensive care unit, intubated instable condition. Dictated By: Salazar Hurd MD Date Dictated: 08/10/2022 18:48:16Date Transcribed: 08/10/2022 23:10:28RUSSEL/Jacob #: [id number] ID: [id number] and Edited by Ruth Hurd MD On 08/19/22 9:38:36 AM at 0941 PATIENT NAME: BRENNAN AHN [id number]:10:[id number] for patient gqvmQMKVOWKEFBVTMY6581-77-21D94:41:35 [facility] 2022-08-10 18:39:00 [id number]+qru O0apbSXbxlk+qe/zvKG+YG+MklwVuJsbaKjMV Ix0773-50-81K09:39:00 [facility] ([facility])Brief Op NoteREPORT#:[id number] REPORT STATUS: SignedDATE:08/10/22 TIME: 1839 PATIENT: BRENNAN AHN UNIT #: [id number]#: [id number] ROOM/BED: OB: 42 AGE: 82 SEX: M ATTEND: Salazar Hurd AUTHOR: Salazar Hurd MD * ALL edits or amendments must be made on the electronic/computer document * Op/Inv Proc Note - BriefPre-procedure diagnosis:CADPAFPost-procedure diagnosis: same as pre procedure dxProcedures performed:CABG x 5 (NGUYEN-LAD, SVG-Olga Lidia, SVG-OM, SVG-LPLA, SVG-PDA)PVIALAAEVH (RGSV)Primary Surgeon:JosephineAssistant(s): Kaya PiperFindings:LAD-2mmComplications: noneEstimated blood loss in ml's: 100 ccSpecimens removed/altered: ARISTEO at 1842 RPT #:[id number] OF REPORTOPOperative kuzsss7052-41-20Q43:39:00G.[id number] 8AVAvailable for patient ctghJATYNYRWNQEAPA2015-37-22B94:42:35 HCACL 2022-08-10 16:18:00 [id number]+E1o/xz 1HfOkq2CX9pwlv160N5X1GaXIhY1oysikk6v0 [id number]:18:00 [facility] ([facility])Critical Care Consult NoteREPORT#:[id number] REPORT STATUS: SignedDATE:08/10/22 TIME: 1618 PATIENT: BRENNAN AHN UNIT #: [id number]#: [id number] ROOM/BED: OB: 42 AGE: 82 SEX: M ATTEND: Salazar Hurd AUTHOR: Reginaldo Brown MD * ALL edits or amendments must be made on the electronic/computer document * History of Present Illness HPIRequesting clinician: Dr. Holguin for consult:postop managementChief complaint:CABGPCP:PCP: No Primary or Family Physician HPI:82-year-old male with history of hypertension, A-fib on Eliquis, SVT s/p ablation, CKD and possible Alzheimer disease, who presented with chest pain and found to have multivessel coronary artery disease on cardiac cath. Patient underwent CABG x5 (NGUYEN-LAD, SVG-Olga Lidia, SVG-OM, SVG-LPLA, SVG-PDA), PVI and ALAA today on 08/10/2022. Has LVH with preserved EF. Crystalloid 1 L, Cell Saver 425, urine output 350. Surgery went well and patient was transferred to CVICU postop in a stable surgical condition. He is currently intubated on 4 mics of Levophed,2 mics of epinephrine and insulin drip. History - Adult longitudinalPast medical history:Reports: Atrial fibrillation, Coronary artery disease, Dementia, Kidney disease/stones. Additional surgical history:Crevial LaminectomyFamily history:Reports: Hypertension. Alcohol use: Denies EtOH useDrug use: Denies recreational drugsAllergies:Coded Allergies:Wdsyrgq-TXR-NzV Reductase Inhibitor (Severe, UNKNOWN 08/09/22) Review of Systems ROSUnable to obtain due to:vented Objective Physical ExamVS/I O:Last Documented: Result Date Time Pulse Ox 100 08/10 1550 FiO2 60 08/10 1550 Pulse 80 08/10 1550 Resp 16 08/10 1550 B/P 144/70 08/10 1100 B/P Mean 101 08/10 1100 Temp 97.5 08/10 1100 O2 Delivery Room air 08/09 2018 24 hour I O ending at 0700: 08/10 0700 08/09 1900 Intake Total Output Total Balance Number Voids 1 Patient 95.5 kg 94.5 kg Weight Weight Bed scale Bed scale Measurement Method Patient Weight and BMI Weight (kg): 95.500 BMI: 29.4 Medications:Active Meds + DC'd Last 24 HrsIpratropium [place] (ATROVENT) 500 MCG Q2H PRN PRN INH Cyanocobalamin (Vitamin B-12 500 mcg tab) 500 MCG DAILY PO Ferrous Sulfate (FERROUS SULFATE) 325 MG DAILY PO Bisacodyl (DULCOLAX) 10 MG ONCE PRN RECTAL Magnesium Hydroxide (MILK OF MAGNESIA) 30 ML ONCE PRN PO Clopidogrel Bisulfate (Plavix) 75 MG DAILY PO Polyethylene Glycol (MIRALAX) 17 GM DAILY PO Pantoprazole (PROTONIX) 40 MG DAILY@0600 PO Docusate Sodium (COLACE) 100 MG BID PO Metoprolol Tartrate (LOPRESSOR) 12.5 MG Q12HR PO Mupirocin (BACTROBAN 2% 22 GM OINTMENT) 1 APPLIC BID NASAL Sennosides (Senna Lax 8.6 MG TABLET) 17.2 MG BEDTIME PO Aspirin (ASPIRIN) 81 MG DAILY PO Cefazolin Sodium (KEFZOL OR ANCEF) 0 .STK-MED ONE .ROUTE (DC) Amiodarone HCl (CORDARONE) 200 MG TID PO Vancomycin HCl (VANCOMYCIN HCL) 0 .STK-MED ONE .ROUTE (DC) Acetaminophen (TYLENOL) 650 MG Q4H PRN PRN PO Acetaminophen (TYLENOL) 650 MG Q4H PRN PRN RECTAL Albumin Human (ALBUMINAR 25%) 25 GM ASDIR PRN IV Calcium Chloride (CALCIUM CHLORIDE) 1 GM ASDIR PRN IV Cefazolin Sodium (KEFZOL OR ANCEF) 6 GM ONCE ONE IV (CKD) Sodium Chloride (SODIUM CHLORIDE 0.9%) 500 MLDextrose/Water (DEXTROSE 10% IN WATER) 125 ML ASDIR PRN IV (CKD) Dextrose/Water (DEXTROSE 10% IN WATER) 250 ML ASDIR PRN IV (CKD) Epinephrine (ADRENALIN CHLORIDE) 4 MG ASDIR IV Dextrose/Water (DEXTROSE 5% WATER) 246 MLGlucagon (GLUCAGON) 1 MG ASDIR PRN IM Insulin Human Regular (HumuLIN R) 100 UNIT ASDIR IV (CKD) Sodium Chloride (SODIUM CHLORIDE 0.9%) 99 MLIpratropium [place] (ATROVENT) 500 MCG Q4H INH Magnesium Sulfate (MAGNESIUM SULFATE 4GM/SWFI 100ML) 100 ML ASDIR PRN IV Magnesium Sulfate (MAGNESIUM SULFATE 2GM/SWFI 50ML) 50 ML ASDIR PRN IV Magnesium Sulfate/Dextrose (MAGNESIUM SULFATE 1GM/D5W 100ML) 100 ML ASDIR PRN IV Morphine Sulfate (morphine SULFATE) 4 MG Q2H PRN PRN IV Nitroglycerin/Dextrose (NITROGLYCERIN 50,000MCG/D5W 250ML) 250 ML ASDIR IV Norepinephrine Bitartrate (NOREPINEPHRINE 8 MG/NS 250 ML) 250 ML TITRATE IV Ondansetron HCl (ZOFRAN) 4 MG Q6H PRN PRN IV Oxycodone HCl (ROXICODONE) 5 MG Q4H PRN PRN PO Oxycodone HCl (ROXICODONE) 10 MG Q4H PRN PRN PO Potassium Chloride (KCL 20MEQ/SWFI 100ML) 100 ML ASDIR PRN IV Sodium Bicarbonate (SODIUM BICARBONATE) 50 MEQ ASDIR PRN IV Sodium Chloride (SODIUM CHLORIDE 0.9%) 1,000 ML .Q20H IV Sodium Chloride (SODIUM CHLORIDE 0.9%) 250 ML Q24H IV Albumin Human (ALBUMINAR-25%) 100 ML .STK-MED ONE IV (DC) Papaverine HCl (PAPAVERINE HCL) 0 .STK-MED ONE IV (DC) Cefazolin Sodium (KEFZOL OR ANCEF) 0 .STK-MED ONE .ROUTE (DC) Dexamethasone Sodium Phosphate (DECADRON) 0 .STK-MED ONE .ROUTE (DC) Etomidate (AMIDATE) 0 .STK-MED ONE IV (DC) Fentanyl Citrate (SUBLIMAZE) 0 .STK-MED ONE IV (DC) Lidocaine HCl (XYLOCAINE) 0 .STK-MED ONE .ROUTE (DC) Ondansetron HCl (ZOFRAN) 0 .STK-MED ONE .ROUTE (DC) Rocuronium [place] (ZEMURON) 0 .STK-MED ONE IV (DC) Aminocaproic Acid (AMICAR) 0 .STK-MED ONE IV (DC) Epinephrine HCl (EPINEPHrine 4 mg/D5W 250 mL) 250 ML .STK-MED ONE IV (DC) Heparin Sodium (HEPARIN SODIUM) 0 .STK-MED ONE .ROUTE (DC) Insulin Human Regular (HumuLIN R 100 UNITS/NS 100ML) 100 ML .STK-MED ONE IV (DC) Nitroglycerin/Dextrose (NITROGLYCERIN 50,000MCG/D5W 250ML) 250 ML .STK-MED ONE IV (DC) Norepinephrine Bitartrate (NOREPINEPHRINE 8 MG/NS 250 ML) 250 ML .STK-MED ONE IV (DC) Protamine Sulfate (PROTAMINE SULFATE) 0 .STK-MED ONE IV (DC) Sodium Chloride (SODIUM CHLORIDE 0.9%) 0 .STK-MED ONE IV (DC) Calcium Chloride (CALCIUM CHLORIDE) 0 .STK-MED ONE IV (DC) Magnesium Sulfate (MAGNESIUM SULFATE) 0 .STK-MED ONE .ROUTE (DC) Ropivacaine (NAROPIN 0.5% 150 MG/30mL) 0 .STK-MED ONE .ROUTE (DC) Gabapentin (NEURONTIN) 200 MG PREOP ONCALL PO (DC) Cefazolin Sodium (KEFZOL OR ANCEF) 2 GM PREOP ONCALL IV (DC) Metoprolol Tartrate (LOPRESSOR) 6.25 MG ONCE ONE PO (DC) Vancomycin HCl (VANCOMYCIN HCL) 1,500 MG PREOP ONCALL IV (CKD) Sodium Chloride (SODIUM CHLORIDE 0.9%) 250 MLVerapamil HCl (ISOPTIN) 16.6 MG .Q24H ONE IV (CKD) Heparin Sodium (Porcine) (HEPARIN SODIUM) 1,660 UNIT Sodium Bicarbonate (SODIUM BICARBONATE) 0.7 ML Nitroglycerin/Dextrose (NITROGLYCERIN 50MG/D5W 250ML) 8.3 MG Lactated Ringer's (LACTATED RINGERS) 949.5 MLMelatonin (Melatonin) 6 MG BEDTIME PRN PRN PO Acetaminophen (TYLENOL EXTRA STRENGTH) 1,000 MG PREOP ONCALL PO (DC) Gabapentin (NEURONTIN) 200 MG PREOP ONCALL PO (DC) Mupirocin (BACTROBAN 2% 22 GM OINTMENT) 1 APPLIC BID NASAL (DC) Hydralazine HCl (APRESOLINE) 10 MG Q6H PRN PRN IV Metoprolol Tartrate (LOPRESSOR) 50 MG Q12HR PO (DC) Amlodipine Besylate (NORVASC) 5 MG DAILY PO (DC) ResultsFindings/Data:Laboratory Tests 08/10/22 1600:[Embedded Image Not Available] 08/10/22 0042:[Embedded Image Not Available] 08/09/22 1751:[Embedded Image Not Available]Laboratory Tests 08/10 08/10 08/10 08/10 1559 1502 1431 1358Blood Gas Puncture Site Art Line O2 Saturation (90 - 100 %) 99.6 100.0 100.0 100.0 ABG pH (7.35 - 7.45) 7.324 L 7.328 L 7.438 7.456 H ABG pCO2 (35.0 - 45 mmHg) 39.1 45.1 H 35.6 33.0 L ABG pO2 (80 - 100.0 mmHg) 200.1 *H 433.9 *H 407.3 *H 360.5 *H ABG PO2/FiO2 Ratio (mm/Hg) 333.50 ABG HCO3 (22.0 - 26.0 MMOL/L) 20.3 L 23.7 24.1 23.2 ABG Total CO2 21.5 25.0 25.2 24.2 ABG Base Excess (-4.0 - 4.0 MMOL/L) -5.7 L -2.4 0.1 -0.3 ABG Hematocrit (37.5 - 50.7 %) 31 L 29 L 28 L 29 L ABG Hemoglobin (12.5 - 16.9 G/DL) 10.5 L 9.9 L 9.7 L 9.9 L Gerry Test N/A Sodium (134 - 147 mmol/L) 139 139 137 138 Potassium (3.4 - 5.0 mmol/L) 4.2 4.3 4.8 5.0 Chloride (100 - 108 mmol/L) 107 105 103 103 Ionized Calcium (1.12 - 1.32 MMOL/L) 1.23 1.30 1.06 L 1.05 L Lactic Acid (0.9 - 1.7 mmol/l) 0.8 L 0.7 L 0.8 L O2 Delivery Device Adult Vent Vent Mode AC Vent Rate (/MIN) 16 FiO2 (%) 60 Tidal Volume (ml) 500 PEEP (cmH2O) 5 08/10 0308/10 1329 1302 1241 1108 Blood Gas Puncture Site Art Line O2 Saturation (90 - 100 %) 100.0 100.0 100.0 99.8 ABG pH (7.35 - 7.45) 7.430 7.366 7.311 L 7.370 ABG pCO2 (35.0 - 45 mmHg) 35.7 45.8 H 48.3 H 46.6 H ABG pO2 (80 - 100.0 mmHg) 445.2 *H 529.4 *H 512.0 *H 240.7 *H ABG HCO3 (22.0 - 26.0 MMOL/L) 23.7 26.2 H 24.4 27.1 H ABG Total CO2 24.8 27.6 25.8 28.6 ABG Base Excess (-4.0 - 4.0 MMOL/L) -0.4 0.5 -2.4 1.7 ABG Hematocrit (37.5 - 50.7 %) 31 L 34 L 45 52 H ABG Hemoglobin (12.5 - 16.9 G/DL) 10.7 L 11.7 L 15.4 17.8 H Sodium (134 - 147 mmol/L) 137 138 141 144 Potassium (3.4 - 5.0 mmol/L) 4.7 3.8 3.5 3.7 Chloride (100 - 108 mmol/L) 103 101 107 106 Ionized Calcium (1.12 - 1.32 MMOL/L) 1.07 L 1.03 L 1.11 L 1.27 Lactic Acid (0.9 - 1.7 mmol/l) 0.9 < 0.3 L < 0.3 L 0.5 L Temperature (F) 97.5 O2 Delivery Device [employer]ero[employer] Laboratory Tests 08/10 08/10 08/10 08/10 08/10 1600 1600 1559 1502 1431Chemistry Sodium (134 - 147 mEq/L) 140 Potassium (3.4 - 5.0 mEq/L) 4.2 Chloride (100 - 108 mEq/L) 106 Carbon Dioxide (21 - 33 mEq/l) 21 Anion Gap (0 - 20) 17 BUN (7 - 18 mg/dL) 17 Creatinine (0.6 - 1.3 mg/dL) 1.2 POC Creatinine (0.8 - 1.3 mg/dL) 1.1 1.2 1.2 Glomerular Filtr Rate (70 - 80) 61.1 L Glucose (70 - 110 mg/dL) 151 H POC Glucose (mg/dL) (70 - 110 MG/DL) 144 H 122 H 119 H Calcium (8.0 - 10.5 mg/dL) 8.4 Magnesium (1.80 - 2.40 mg/dL) 3.07 H 08/10 08/10 08/10 08/10 08/10 1358 1329 1302 1241 1108 Chemistry POC Creatinine (0.8 - 1.3 mg/dL) 1.2 1.2 1.2 1.1 1.2 POC Glucose (mg/dL) (70 - 110 MG/DL) 122 H 119 H 117 H 116 H 97 08/102 0042 1751 1751 Chemistry Sodium (134 - 147 mEq/L) 139 Potassium (3.4 - 5.0 mEq/L) 4.1 Chloride (100 - 108 mEq/L) 106 Carbon Dioxide (21 - 33 mEq/l) 26 Anion Gap (0 - 20) 12 BUN (7 - 18 mg/dL) 16 Creatinine (0.6 - 1.3 mg/dL) 1.3 Glomerular Filtr Rate (70 - 80) 55.5 L Glucose (70 - 110 mg/dL) 82 Hemoglobin A1c (4.8 - 6.0 %A1C) 5.2 Calcium (8.0 - 10.5 mg/dL) 9.5 Magnesium (1.80 - 2.40 mg/dL) 1.77 L B-Natriuretic Peptide (0 - 100 PG/ML) 266.0 H 08/09 1750 Chemistry Sodium (134 - 147 mEq/L) 141 Potassium (3.4 - 5.0 mEq/L) 4.6 Chloride (100 - 108 mEq/L) 107 Carbon Dioxide (21 - 33 mEq/l) 28 Anion Gap (0 - 20) 11 BUN (7 - 18 mg/dL) 13 Creatinine (0.6 - 1.3 mg/dL) 1.2 Glomerular Filtr Rate (70 - 80) 61.1 L Glucose (70 - 110 mg/dL) 85 Calcium (8.0 - 10.5 mg/dL) 10.1 Total Bilirubin (0.0 - 1.0 mg/dL) 0.60 AST (15 - 37 IUnit/L) 47 H ALT (30 - 65 IUnit/L) 28 L Total Alk Phosphatase (20 - 125 IUnit/L) 112 Total Protein (6.4 - 8.2 g/dL) 7.6 Albumin (3.4 - 5.0 g/dL) 4.10 Triglycerides (40 - 150 mg/dL) 158 H Cholesterol (<200 mg/dL) 224 H LDL Cholesterol [place] (0 - 100 mg/dL) 199.0 H HDL Cholesterol (32 - 72 mg/dL) 28.6 L Cholesterol/HDL Ratio (3.43 - 4.97 RATIO) 7.83 H Laboratory Tests 08/10 08/10 08/10 08/10 1600 1501 1433 1400 Coagulation INR (0.8 - 1.2) 1.5 H PTT (Hans) (25.0 - 39.5 Seconds) 32.6 PT Patient/Control Mix (9.3 - 12.9 SECONDS) 16.6 H Activated Coag Time (74 - 137 SEC) 131 630 H 786 H 08/10 08/10 08/10 08/09 1304 1240 0042 1751Coagulation INR (0.8 - 1.2) 1.2 1.1 PTT ([place]) (25.0 - 39.5 Seconds) 36.2 PT Patient/Control Mix (9.3 - 12.9 SECONDS) 13.0 H 12.6 Activated Coag Time (74 - 137 SEC) > 1000 H 847 H Laboratory Tests 08/10 08/10 08/09 1600 0042 1751 Hematology WBC (4.5 - 11.0 x10 3/uL) 18.0 H 8.5 8.8 RBC (4.00 - 5.60 x10 6/uL) 3.53 L 5.46 5.60 Hgb (12.5 - 16.9 g/dL) 10.6 L 16.3 16.7 Hct (37.5 - 50.7 %) 32.4 L 49.6 52.2 H MCV (81.0 - 99.0 fL) 91.8 90.8 93.2 MCH (27.0 - 33.0 pg) 30.0 29.9 29.8 MCHC (33.0 - 37.0 g/dL) 32.7 L 32.9 L 32.0 L RDW (11.5 - 14.5 %) 13.2 13.1 13.2 Plt Count (150 - 400 x10 3/uL) 110 L 194 172 MPV (7.0 - 9.0 fL) 10.3 H 9.9 H 10.8 H Neut % (Auto) (56.0 - 77.0 %) 93.1 H 65.3 70.0 Lymph % (Auto) (14.0 - 32.0 %) 3.8 L 19.1 18.3 [place] % (Auto) (4.8 - 9.0 %) 1.8 L 12.8 H 9.3 H Eos % (Auto) (0.3 - 3.7 %) 0.3 2.2 1.6 Baso % (Auto) (0.0 - 2.0 %) 0.2 0.4 0.5 Neut # (Auto) (2.0 - 7.6 x10 3/uL) 16.78 H 5.52 6.14 Lymph # (Auto) (1.0 - 3.8 x10 3/uL) 0.69 L 1.61 1.61 [place] # (Auto) (0.1 - 0.8 x10 3/uL) 0.32 1.08 H 0.82 H Eos # (Auto) (0.0 - 0.2 x10 3/uL) 0.05 0.19 0.14 Baso # (Auto) (0.0 - 0.2 x10 3/uL) 0.03 0.03 0.04 Abs Immat Gran (auto) (0.00 - 0.03 x10 3/uL) 0.15 H 0.02 0.03 Add Manual Diff NO NO NO Immature Gran % (0.0 - 2.0 %) 0.8 0.2 0.3 Nucleated RBC % (0 - 0 %) 0.0 0.0 0.0 Nucleated RBCs # (Man) (0.0 - 0.1 x10 3/uL) 0.00 0.00 0.00 Laboratory Tests 08/094 Serology SARS-CoV-2 Ag (Rapid) (Negative) Negative Laboratory Tests 08/10 0020 Urines Urine Color (YEL/STRAW) YELLOW Urine Appearance (CLEAR) CLEAR Urine pH (5.0 - 7.0) 5.0 Ur Specific [place] (1.005 - 1.030) 1.015 Urine Protein (NEGATIVE) 1+ H Urine Glucose (UA) (NEGATIVE) NEGATIVE Urine Ketones (NEGATIVE) 1+ H Urine Blood (NEGATIVE) NEGATIVE Urine Nitrite (NEGATIVE) NEGATIVE Urine Bilirubin (NEGATIVE) NEGATIVE Urine Urobilinogen (0.2 - 1.0 mg/dL) 0.2 Ur Leukocyte Esterase (NEGATIVE) NEGATIVE Urine RBC (0 - 3 RBC/HPF) 0-3 Urine WBC (0 - 3 WBC/HPF) 0-3 Ur Squamous Epith Cells (NONE SEEN /HPF) NONE SEEN Urine Bacteria (NONE SEEN /HPF) NONE SEEN Urine Mucus (NONE SEEN /LPF) TRACE Microbiology:08/09 1825 NASAL: MRSA DNA Surveillance Screen - ORD08/09 170 NASAL: MSSA Surveillance Screen - COLB08/09 170 NASAL: MRSA DNA Surveillance Screen - COLB Radiology data:Recent Impressions:RADIOLOGY - XR CHEST 2 V 08/09 165 Report Impression - Status: SIGNED Entered: 08/09/2022 190 IMPRESSION: Left basilar opacities may represent atelectasis and/or consolidation. Impression By: Vamshi Edgar M.D.CAT SCAN - CT CHEST W/O CONTRAST 08/09 1714 Report Impression - Status: SIGNED Entered: 08/09/2022 192 IMPRESSION: 1. Ectatic, nonaneurysmal aortic root (37 mm) with kmkl-xs-xmgpuhdi calcification. 2. Remaining thoracoabdominal aorta is normal in caliber. 3. Significant calcification along the ascending aorta to preclude coronary graft implantation given history. 4. Cardiomegaly with severe multivessel coronary atherosclerosis. 5. Old granulomatous disease and chronic active atypical infection with a tree-in-bud configuration. 6. Partially imaged bilateral renal cysts, incompletely characterized. This can be followed with routine non emergent ultrasound further characterization, if indicated. COMMENTS: Consistent with the [employer]'s Incidental Findings Committee white paper (J Am Parminder Radiol 2018): Any incidental renal lesion less than 1 cm or classified as too small to characterize, or any incidental cystic renal lesion characterized as simple-appearing, is likely benign. No follow-up imaging is recommended for these lesions per consensus recommendations based on imaging criteria.Impression By: NayelyERR2 - Brandon Beth M.D.ULTRASOUND - DUP VEIN ANCA 08/09 175 Report Impression - Status: SIGNED Entered: 08/09/2022 1858 IMPRESSION: Greater saphenous vein is patent. Vein mapping as described. Impression By: Vamshi Edgar M.D.ULTRASOUND - DUP EXTRACRANIAL ANCA 08/09 175 Report Impression - Status: SIGNED Entered: 08/09/2022 1917 IMPRESSION: No carotid arterial stenosis. REFERENCES: SRU CRITERIA. The degree of internal carotid artery stenosis is based on criteria defined by the Society of Radiologists in Ultrasound (SRU). Normal is no stenosis. Mild is less than 50% stenosis. Moderate is 50-69% stenosis. Severe is greater than 69% stenosis to near occlusion. Near occlusion is a markedly narrowed lumen. Total occlusion is no detectable patent lumen. Impression By: Miriam Loredo M.D. Free Text Obj NotesFree Text Obj Notes:General appearance: Elderly male in no acute distressHead/Eyes: atraumatic, normocephalicENT: dry mucosal membranes, ETT in placeNeck: full range of motion, supple/no meningismusCardiovascular: S1-S2 regular rate and rhythm, V-pacedRespiratory: symmetric expansion, no acute respiratory distressAbdomen: soft, non-tender, no distention, no guardingGenitourinary: longo with clear urineExtremities: pedal pulses, moves all, no clubbing, RUE bruising/ecchymosis, no edema Vascular pulse assessment:palpated: R posterior tibialis, L posterior tibialis, R dorsalis pedis, L dorsalis pedisMusculoskeletal: normal inspection, no muscle spasmNeuro/TEAROOM HOST/HOSTESS: Sedated but arousable, CNII-XII grossly intact, no motor deficitsSkin: dry, intact and clean surgery dressing Diagnosis, Assessment Plan Diagnosis, Assessment PlanProblem list/A P: 1. CAD (coronary artery disease) 2. Postoperative pulmonary dysfunction after cardiac surgery 3. S/P CABG x 5 Orders: Procedure Date/time Status Medication Management Message 08/10 673 Complete Plan discussed with: family, consultants, nurse, interdisc care team, pharmacy/pharmacistCritical care time: Minutes: 45Free text DxA P:82-year-old male with history of hypertension, A-fib on Eliquis, SVT s/p ablation, CKD and possible Alzheimer disease, who presented with chest pain and found to have multivessel coronary artery disease on cardiac cath. Patient underwent CABG x5 (NGUYEN-LAD, SVG-Olga Lidia, SVG-OM, SVG-LPLA, SVG-PDA), PVI and ALAA today on 08/10/2022. Has LVH with preserved EF. Crystalloid 1 L, Cell Saver 425, urine output 350. Surgery went well and patient was transferred to CVICU postop in a stable surgical condition. He is currently intubated on 4 mics of Levophed,2 mics of epinephrine and insulin drip. Neuro: Appears intact, keep off sedation, multimodal pain controlRespiratory: Sats well, CPAP as tolerated, plan for extubation, ABG and CXR reviewedCardiovascular: HD unstable on vasopressors, attempt to wean, keep CTs to suctionRenal: strict I/Os, monitor Cr and electrolytes, LA clear, judicious resuscitationGI: bedside swallow then oral diet after extubation, bowel regimen, monitor LFTsID: reactive leukocytosis, trend WBC, continue periop antibiotics per protocolHem: acute blood loss anemia, monitor Hgb and CTs output, transfuse as neededEndo: Blood glucose control with insulin gtt per protocolMisc: PTOT consult, DVT and GI prophylaxis with DAPT and PPI at 1539 RPT #:[id number] OF REPORTWEIzcddjqxxnog7493-95-84X33: 18:00G.LOIM88517935-6054XNNbvscqsxv for patient kyuqPHNLIOMILEKAND7144-32-14W75:39:47 [facility]ACL 2022-08-10 16:14:00 [id number] N7Qzn4cMa4qMQTF+9NjoS/d3gElngR42l8yaC Xc0833-36-18L04:14:723139-9378 [place] [address] PATIENT NAME: BRENNAN AHN ADMIT DATE: 08/09/22ACCOUNT NO: [id number] ROOM NO: 2202 AGE: 82 REPORT TYPE: eELECTROCARDIOGRAM REPORT SEX: M ADMITTING PHYSICIAN:Salazar Hurd MD ATTENDING PHYSICIAN:Salazar Hurd MD Order:[id number] Reason : CV SURGRY Test Date/Time Stamp:SunAug 10 2022 16:14:48Blood Pressure : / mmHGVent. Rate : 051 BPM Atrial Rate : 051 BPM P-R Int : 338 ms QRS Dur : 098 ms QT Int : 462 ms P-R-T Axes : 073 080 074 degrees QTc Int : 425 ms Sinus bradycardia with marked sinus arrhythmia with 1st degree AV blockOtherwise normal ECGWhen compared with ECG of 09-AUG-2022 21:46,Significant changes have occurredConfirmed by GAVI RENAE MD ([id number]) on 08/12/2022 6:14:26 AM Referred By: BUSINESS INFO CONSULTANT Confirmed by:GAVI RENAE MD at 0614 PATIENT NAME: BRENNAN AHN .CPS2 [id number] for patient ggcuRWTWIKGEECJUKR6051-27-25J35:14:59 [facility] 2022-08-10 09:35:00 [id number]+oXN LWNj75jThcX5ttQABzj9pjZk9XBHGyvNX5GaW lM4250-52-44D41:35:00 [facility] ([facility])Clinical NoteREPORT#:[id number] REPORT STATUS: SignedDATE:08/10/22 TIME: 934 PATIENT: BRENNAN AHN UNIT #: [id number]#: [id number] [address] AGE: 82 SEX: M ATTEND: Salazar Hurd [facility] AUTHOR: Brenton Kirkpatrick MD * ALL edits or amendments must be made on the electronic/computer document * Clinical NoteNote:STS RISK SCORES Procedure: Isolated CABG Risk of Mortality: 1.380% Renal Failure:0.962%Permanent Stroke:0.909%Prolonged Ventilation:5.288%DSW Infection:0.139%Reoperation:2.636%Mor bidity or Mortality:8.914%Short Length of Stay:42.855%Long Length of Stay:4.225% at 0936 RPT #:[id number] OF REPORTCLClinical yfrm3271-14-95Q93:35:00G.[id number] -[id number] for patient lmpsMDZAYRFJFAOVNQ9926-76-68Z51:36:59 [facility] 2022-08-09 21:46:00 [id number] TFoJ4o8l3lHQxa8692b+4ong/xzrkhS8h6FVB aF2554-92-79K09:46:[id number] [place] [address] PATIENT NAME: BRENNAN AHN ADMIT DATE: 08/09/22ACCOUNT NO: [id number] ROOM NO: [facility] AGE: 82 REPORT TYPE: eELECTROCARDIOGRAM REPORT SEX: M ADMITTING PHYSICIAN:Salazar Hurd MD ATTENDING PHYSICIAN:Salazar Hurd MD Order:[id number] Reason : PRE CABG Test Date/Time Stamp:SunAug 09 2022 21:46:57Blood Pressure : / mmHGVent. Rate : 080 BPM Atrial Rate : 000 BPM P-R Int : 000 ms QRS Dur : 096 ms QT Int : 384 ms P-R-T Axes : 000 078 100 degrees QTc Int : 442 ms Atrial fibrillationAbnormal ECGNo previous ECGs availableConfirmed by GAVI RENAE MD ([id number]) on 08/10/2022 8:28:13 AM Referred By: Thompson Hurd Confirmed by:GAVI RENAE MD at 0828 PATIENT NAME: BRENNAN AHN .CPS2 [id number] for patient [id number]:28:36 [facility] 2022-08-09 21:11:00 [id number]:11:00 [facility] ([facility])History Physical - AdultREPORT#:[id number] REPORT STATUS: SignedDATE:08/09/22 TIME: 2110 PATIENT: BRENNAN AHN UNIT #: [id number]#: [id number] [address] [birth year] AGE: 82 SEX: M ATTEND: Salazar Hurd [facility] AUTHOR: Pamela Burnette * ALL edits or amendments must be made on the electronic/computer document * Pamela Burnette 08/09/222110:History of Present Illness HPIChief complaint:Chest Pain, Coronary artery Disease PCP:PCP: No Primary or Family Physician HPI:82 year old with PMH of hypertension, atrail fibrillation, On Elliquis, Hx of SVT ablation 20 years ago trasnferred to [facility] with new findings of multi-vessel CAD. He reports he was awekne from [place] on Sunday AM with COmplaints of chest pains. EMS was called and patient was taken to [facility]. He underwent LHC and found to have multi-vessel CAD by Dr Sanchez. Patient was transferred to [facility] for CABG. Patient lives independently. Daughter is at bedside. Daughter reports recent concerns regarding his memeory. She does report he was told by his primary MD stephanie has Alzheimers, however he has not been evaluated by Nerology. Patient reports last dose of Elliquis was Satuday AM. Echo was done at [facility] showing EF 55%, Mild MR, Mild AI, mild LVH. According to his records, he has a hx of Chronic kidney disease with baseline Creatine reportedly 1.5. He does report he has seen a renal spcialist in the past. HistoryPast medical history:Reports: Atrial fibrillation, Coronary artery disease, Dementia, Kidney disease/stones. Additional surgical history:Crevial LaminectomyFamily history:Reports: Hypertension. Alcohol use: Denies EtOH useDrug use: Denies recreational drugs Medication/Allergy-Vaccine HxAllergies:Coded Allergies:Vtxjqkw-HQP-VcK Reductase Inhibitor (Severe, UNKNOWN 08/09/22) Review of SystemsConstitutional:Denies: chills, fatigue, fever, generalized weakness. Skin:Denies: bruising, laceration, rash, swelling. Eyes:Denies: redness, discharge, diplopia. ENT:Denies: throat pain, throat swelling. Respiratory:Denies: JANG (dyspnea on exertion), hemoptysis, parox nocturnal dyspnea. Cardiovascular:Reports: chest pain. Denies: JANG (dyspnea on exertion), edema, palpitations. GI:Denies: constipation, diarrhea. :Denies: dysuria, hematuria. Heme:Denies: bleeding, bruising. Endocrine:Denies: polydipsia, polyuria. Neuro:Reports: other (Memory decline). Psych:Denies: agitation, anxiety, confusion. All systems rev neg: except as marked Physical ExamVS/I OVital Signs: Date Time Temp Pulse Resp B/P B/P Pulse O2 O2 Flow FiO2 Mean Ox Delivery Rate 08/09 2018 97.7 87 19 142/70 94.2 98 Room air 08/09 1826 83 19 196/91 126.1 97 Room air 08/09 1822 83 20 196/99 131 / 1634 98.4 81 20 176/114 134.6 98 Room air PATIENT WEIGHT: Weight (lb): 208Weight (oz): 5.39Weight (kg): 94.500 General appearance: alert, awake, orientedHead/Eyes: atraumatic, clear cornea, EOMIENT: moist mucosal membranes, normal dentitionNeck: full range of motion, non-tenderCardiovascular: normal capillary refill, regular rate rhythm, normal heart soundsRespiratory: clear to auscultation, no distressAbdomen/GI: active bowel sounds, soft, non-tenderExtremities: moves all, no edema-all extremitiesMusculoskeletal: full range of motion, normal inspectionNeuro/TEAROOM HOST/HOSTESS: alert, oriented X 3Skin: dry, intactLymphatic: no lymphadenopathy Diagnosis, Assessment Plan Free Text DxA P NotesFree Text DxA P Notes:82 year old with PMH of hypertension, atrial fibrillation, On Eliquis, Hx of SVT ablation 20 years ago transferred to [facility] with new findings of multi-vessel CAD. He reports he was woken from Sleep on Sunday AM with COmplaints of chest pains. EMS aas called and patient was taken to [facility]. He underwent LHC and found to have multi-vessel CAD by Dr Sanchez. Patient was transferred to [facility] for CABG. Patient lives independently. Daughter is at bedside. Patient reports last dose of Elliquis was Sunday AM. Echo was done at [facility] showing EF 55%, Mild MR, Mild AI, mild LVH. According to his records, he has a hx of Chronic kidney disease with baseline Creatine reportedly 1.5. He does report he has seen a renal MD in the past. Assessment/ Plan1) CAD, Mutli-vessel2) hypertension Continue BBLKR Add Norvasc 5 mg3) Atrial fibrillation. Last dose of Eliquis Sunday AM Obtain EKG4) BPH Continue flomax Workup for CABG underway. Patient was seen and examined by Dr Hurd. Coronary artery bypass surgery was discussed with the patient. The risk of the operation,including the STS score, cristian of blleding, infection, heart attack, stroke, Tracheostomy etc discussed with the patient. CT chest, carotid US, Vein mapping ordered. Salazar Hurd 08/14/22 193:Attestations Physician AttestationAgree w/findings plan:I have seen and examined Mr Ahn. I agree with the findings and plan as documented by ALVAREZ Uribe. Briefly, 82 YO male transferred from [place] with severe CAD. Patient will benefit from surgical revascularization. I have explained to him the procedure, risk involved, benefit, alternatives, STS risk score, and the benefit. Patient has agreed for surgery.I am making arrangement for Mr Ahn to have CABg in the near future. at 2135 at 1948 RPT #:[id number] OF REPORTHPHistory and physical [id number] for patient [id number] [facility]
--- NOTE | 2023-06-19 17:45 | EDPHYS ---
Physician Documentation [facility] Name: Tim Ahn Age: 83 yrs Sex: Male : 1940 Arrival Date: 06/19/2023 Time: 15:53 Bed 14 Private MD: ED Physician Aubrey Knowles HPI: 06/19 18:04 This 83 yrs old Male presents to ER via EMS with complaints of nosebleed. kb 18:04 Patient is an 83-year-old male who presents for spontaneous nosebleed on the right kb naris that started at 3 PM. States it stopped for a few minutes and then began again. Patient was recently diagnosed with COVID.. Historical: - Allergies: 15:57 Aggrenox; mb9 15:57 Dexamethasone; mb9 15:57 Diltiazem; mb9 15:57 Diovan; mb9 15:57 Enalapril; mb9 15:57 guanfacine; mb9 15:57 Lisinopril; mb9 15:57 Xrvuicc-Caq-Val Reductase Inhibitors; mb9 15:57 valsartan; mb9 - Home Meds: 16:08 Xarelto 15 mg Oral tab 1 tab daily [Active]; duloxetine 60 mg Oral CDRS 1 cap nightly mb9 [Active]; amlodipine 10 mg tab 1 tab once daily [Active]; metoprolol succinate 50 mg Oral Tb24 1 tab twice a day [Active]; tamsulosin 0.4 mg Oral cp24 1 cap once daily [Active]; Plavix 75 mg oral tablet [Active]; melatonin 5 mg Oral tab nightly [Active]; Breztri Aerosphere Inhaler 2 puff daily [Active]; montelukast 10 mg Oral tab 1 tab daily prn [Active]; spironolactone 25 mg Oral tab 1 tab once daily [Active]; - PMHx: 15:57 SVT; Alzheimer's disease; Anemia; BPH; Dementia; Atrial Fib; coronary atherosclerosis; mb9 Hypertension; COPD; - PSHx: 15:57 Aortocoronary Bypass Graft; left knee; mb9 - Immunization history:: Adult Immunizations up to date. - Social history:: Smoking status: Patient denies any tobacco usage or history of. ROS: 17:53 Constitutional: Negative for fever, chills, and weight loss, kb 17:53 ENT: Positive for nose bleed, 17:53 All other systems are negative, Exam: 17:53 Constitutional: This is a well developed, well nourished patient who is awake, alert, kb and in no acute distress. Head/Face: Normocephalic, atraumatic. Cardiovascular: Regular rate Respiratory: Respirations even and unlabored. No increased work of breathing. Talking in full sentences Skin: Warm, dry with normal turgor. Normal color. MS/ Extremity: Pulses equal, no cyanosis. Neurovascular intact. Full, normal range of motion. Neuro: Awake and alert, GCS 15, oriented to person, place, time, and situation. Moves all extremities. Normal gait. 17:53 ENT: Nose: bleeding, is seen from the right nare, and is moderate, no septal hematoma is appreciated, Vital Signs: 15:58 BP 166 / 78; Pulse 84; Resp 18; Temp 98; Pulse Ox 100% on R/A; Weight 79.38 kg; Height mb9 6 ft. 0 in. ; 16:32 BP 137 / 80; Pulse 74; Resp 18; Pulse Ox 98% on R/A; mb9 17:47 BP 132 / 80; Pulse 78; Resp 18; Pulse Ox 100% on R/A; mb9 15:58 Body Mass Index 23.73 (79.38 kg, 182.88 cm) mb9 MDM: 15:57 Patient medically screened. rt 17:55 Differential diagnosis: foreign body - resolved, foreign body - unresolved, sinusitis, kb epistaxis r/t trauma, spontaneous epistaxis. Data reviewed: vital signs, nurses notes. Historians other than the Patient: EMS: [facility]. Counseling: I had a detailed discussion with the patient and/or guardian regarding the historical points, exam findings, and any diagnostic results supporting the discharge/admit diagnosis, the need for outpatient follow up, an ENT specialist, to return to the emergency department if symptoms worsen or persist or if there are any questions or concerns that arise at home. 18:03 ED course: rhinorocket inserted into right nare, bleeding controlled. kb 06/19 15:59 Order name: [facility]. Order: apply clamp; Complete Time: 16:01 kb Administered Medications: 16:06 Drug: Velasquez-Synephrine Intranasal [place] 0.5 % 2 sprays Intranasal once Route: Intranasal; mb9 Site: both nares; 16:24 Follow up: Response: No adverse reaction iw Disposition: 19:58 Co-signature as Attending Physician, Aubrey Knowles MD I reviewed the patient's care rt provided by the Advanced Practice Provider and agree with the diagnosis and treatment plan. Disposition Summary: 06/19/23 17:44 Discharge Ordered Notes: Keep rhinorocket in place, follow up with ENT in 24-48 hours Location: Home kb Condition: Stable kb Diagnosis - Epistaxis kb Followup: kb - With: Emergency Department - When: As needed - Reason: Worsening of condition Followup: kb - With: Private Physician - When: 2 - 3 days - Reason: Recheck today's complaints, Continuance of care, Re-evaluation by your physician Discharge Instructions: - Discharge Summary Sheet kb - Nosebleed, Adult, [id number]-lw-Ppoo kb Forms: - Medication Reconciliation Form kb - Thank You Letter kb - Antibiotic Education kb - Prescription Opioid Use kb - Patient Portal Instructions kb - Leadership Thank You Letter kb Prescriptions: - Augmentin 875-125 mg Oral Tablet - take 1 tablet ORAL route every 12 hours for 10 days; 20 tablet; Refills: 0, kb Product Selection Permitted Signatures: Tracie Correa, ELLYNC WAREHOUSE HANDLER-Carol Hu RN RN mb9 Aubrey Knowles MD MD rt Lesley Villanueva RN iw Corrections: (The following items were deleted from the chart) 16:11 16:08 PSHx: laminectomy; mb9 mb9 16:11 16:08 PSHx: right hand; mb9 mb9
--- NOTE | 2023-06-19 17:45 | ER ---
Nurse's Notes [facility] Name: Tim Ahn Age: 83 yrs Sex: Male : 1940 Arrival Date: 06/19/2023 Time: 15:53 Bed 14 Private MD: Diagnosis: Epistaxis Presentation: 06/19 15:58 Chief complaint: EMS states: "toned out for bilateral nose bleed that started around mb9 1500. Pt is on blood thinners. Pt tested positive for COVID yesterday." Nose clamp applied to pt. Coronavirus screen: Vaccine status: Patient reports receiving the 2nd dose of the covid vaccine. Ebola Screen: No symptoms or risks identified at this time. 15:58 Method Of Arrival: EMS: [facility] mb9 15:59 Initial Sepsis Screen: Does the patient meet any 2 criteria? No. Patient's initial mb9 sepsis screen is negative. Does the patient have a suspected source of infection? No. Patient's initial sepsis screen is negative. Risk Assessment: Do you want to hurt yourself or someone else? Patient reports no desire to harm self or others. Onset of symptoms was June 19, 2023. 15:59 Acuity: LUCIEN 3 mb9 Triage Assessment: 16:00 General: Appears in no apparent distress. Behavior is calm, cooperative. Pain: Denies mb9 pain. EENT: Nares with bleeding noted bilaterally. Neuro: Joyce Agitation-Sedation Scale (RASS): 0 - Alert and Calm Level of Consciousness is awake, alert, obeys commands, Oriented to person, place, time, situation, Appropriate for age. Cardiovascular: Patient's skin is warm and dry. Respiratory: Airway is patent Respiratory effort is even, unlabored, Respiratory pattern is regular, symmetrical. GI: No signs and/or symptoms were reported involving the gastrointestinal system. : No signs and/or symptoms were reported regarding the genitourinary system. Derm: Skin is pink, warm \\T\\ dry. Musculoskeletal: Range of motion: intact in all extremities. Historical: - Allergies: 15:57 Aggrenox; mb9 15:57 Dexamethasone; mb9 15:57 Diltiazem; mb9 15:57 Diovan; mb9 15:57 Enalapril; mb9 15:57 guanfacine; mb9 15:57 Lisinopril; mb9 15:57 Bhbddrp-Chz-Wty Reductase Inhibitors; mb9 15:57 valsartan; mb9 - Home Meds: 16:08 Xarelto 15 mg Oral tab 1 tab daily [Active]; duloxetine 60 mg Oral CDRS 1 cap nightly mb9 [Active]; amlodipine 10 mg tab 1 tab once daily [Active]; metoprolol succinate 50 mg Oral Tb24 1 tab twice a day [Active]; tamsulosin 0.4 mg Oral cp24 1 cap once daily [Active]; Plavix 75 mg oral tablet [Active]; melatonin 5 mg Oral tab nightly [Active]; Breztri Aerosphere Inhaler 2 puff daily [Active]; montelukast 10 mg Oral tab 1 tab daily prn [Active]; spironolactone 25 mg Oral tab 1 tab once daily [Active]; - PMHx: 15:57 SVT; Alzheimer's disease; Anemia; BPH; Dementia; Atrial Fib; coronary atherosclerosis; mb9 Hypertension; COPD; - PSHx: 15:57 Aortocoronary Bypass Graft; left knee; mb9 - Immunization history:: Adult Immunizations up to date. - Social history:: Smoking status: Patient denies any tobacco usage or history of. Screenin:07 [facility] ED Fall Risk Assessment (Adult) History of falling in the last 3 months, mb9 including since admission No falls in past 3 months (0 pts) Confusion or Disorientation No (0 pts) Intoxicated or Sedated No (0 pts) Impaired Gait No (0 pts) Mobility Assist Device Used No (0 pt) Altered Elimination No (0 pt) Score/Fall Risk Level 0 - 2 = Low Risk Oriented to surroundings, Maintained a safe environment, Educated pt \\T\\ family on fall prevention, incl call for assistance when getting out of bed. Abuse screen: Denies threats or abuse. Nutritional screening: No deficits noted. Tuberculosis screening: No symptoms or risk factors identified. Assessment: 16:00 Reassessment: see triage assessment. mb9 16:31 Reassessment: EDGARD Victor and pts daughter, # [phone]. mb9 17:47 Reassessment: Patient appears in no apparent distress at this time. No changes from mb9 previously documented assessment. Patient and/or family updated on plan of care and expected duration. Pain level reassessed. no active bleeding noted to bilateral nares. 17:55 Reassessment: [facility] from [facility] states, "we don't have anybody to pick him up mb9 today because we stop transportation at 1600." Charge nurse notified. 18:02 Reassessment: Discharge pending ride home. mb9 18:38 Reassessment: Report given to EMS. mb9 Vital Signs: 15:58 BP 166 / 78; Pulse 84; Resp 18; Temp 98; Pulse Ox 100% on R/A; Weight 79.38 kg; Height mb9 6 ft. 0 in. ; 16:32 BP 137 / 80; Pulse 74; Resp 18; Pulse Ox 98% on R/A; mb9 17:47 BP 132 / 80; Pulse 78; Resp 18; Pulse Ox 100% on R/A; mb9 15:58 Body Mass Index 23.73 (79.38 kg, 182.88 cm) mb9 ED Course: 15:56 Patient arrived in ED. mb9 15:57 Aubrey Knowles MD is Attending Physician. rt 15:58 Tracie Correa [facility]C [facility] kb 15:59 Triage completed. mb9 15:59 Arm band placed on. mb9 16:07 Placed in gown. Bed in low position. Call light in reach. Side rails up X 1. Client mb9 placed on continuous cardiac and pulse oximetry monitoring. NIBP monitoring applied. 16:11 Carol Beasley, RN is Primary Nurse. mb9 16:11 No provider procedures requiring assistance completed. mb9 17:54 Patient did not have IV access during this emergency room visit. mb9 Administered Medications: 16:06 Drug: Velasquez-Synephrine Intranasal [place] 0.5 % 2 sprays Intranasal once Route: Intranasal; mb9 Site: both nares; 16:24 Follow up: Response: No adverse reaction iw Medication: 16:08 VIS not applicable for this client. mb9 Outcome: 17:44 Discharge ordered by . kb 17:54 Discharged to longterm. Report called to Elbert. mb9 17:54 Condition: stable 17:54 Discharge instructions given to patient, Instructed on discharge instructions, follow up and referral plans. Demonstrated understanding of instructions, follow-up care, medications, Prescriptions given X 1, 18:39 Patient left the ED. mb9 Signatures: Tracie Correa FNP-C POLYMERIZATION SUPERVISOR-Ckb Lesley Villanueva RN BRIDGER iw Carol Beasley RN RN mb9 Aubrey Knowles MD MD rt Corrections: (The following items were deleted from the chart) 16:07 15:58 Chief complaint: EMS states: "toned out for bilateral nose bleed that started mb9 around 1500. Pt is on blood thinners." Nose clamp applied to pt. mb9 16: 16:08 PSHx: laminectomy; mb9 mb9 16:11 16:08 PSHx: right hand; mb9 mb9
[2023-06-19 19:31] VITALS: BP 132/80; TEMP 98; O2SAT 100
== END ==
LOC: ER 15:53
PROC: 2Y41X5Z Packing of Nasal Region using Packing Material (ICD-10-PCS; principal; 2023-06-19)
DX: R04.0 Epistaxis (principal); Z95.1 Presence of aortocoronary bypass graft; I10 Essential (primary) hypertension; G30.9 Alzheimer's disease, unspecified; F02.80 Dementia in other diseases classified elsewhere, unspecified severity, without behavioral disturbance, psychotic disturbance, mood disturbance, and anxiety; I48.91 Unspecified atrial fibrillation; Z79.01 Long term (current) use of anticoagulants; Z88.8 Allergy status to other drugs, medicaments and biological substances
CPT/HCPCS: 99284

== ENCOUNTER 2024-05-04 02:56 | Emergency (ER) | payer OTHER ==
--- OUTSIDE RECORDS SUMMARY | 2024-05-04 03:03 | XMS REPORT | Continuity of Care Document ---
Author Name Unknown Address [address] [facility] [address] [place] [address] [facility] Address [address] [facility] [address] [place] [address] Care Team Providers Care Screening Tech Name Role Phone Pcp, Patient Does Not Have A Primary Care Physic neyda JEFFERY SAHU Attending Clinician Elaina Guevara Attending Clinician + Jeffery Sahu MD Attending Clinician [phone] Elaina Pablo Attending Clinician + Doctor Unassigned, [place] Attending Clinician Arthur Pierce Attending Clinician Salazar Lee Attending Clinician JEFFERY Das Admitting Clinician Jeffery Pitt MD Admitting Clinician [phone] Arthur Fuentes Admitting Clinician Salazar Lee Admitting Clinician Ashwin howell Payers Payer Name Policy Type Policy Number Effective Date Expirati on Date Source [employer] MANAGED MEDICARE PPO-SHERIE [id number] 2022 00:00:00 Allergies, Adverse Reactions, Alerts Allergy Name Allergy Type Status Severity Reaction(s) Onset Date Inactive Date Treating Clinician Comments Source Statins- HMG-CoA Reductas e Inhibito r DA Active SV UNKNOWN 3-15 00:00: 00 [facility] Statins- HMG-CoA Reductas e Inhibito r DA Active SV UNKNOWN 3-08 00:00: 00 [facility] Aspirin- Dipyrida mole Propensi ty to adverse reaction s Active Other - See comments 2017-06 00:00: 00 Headaches and constipat ion [facility] Dexameth asone Propensi ty to adverse reaction s Active Other - See comments 2017-06 00:00: 00 Insomnia [facility] Diltiaze m Propensi ty to adverse reaction s Active Other - See comments 2017-06 00:00: 00 constipat ion [facility] Guanfaci ne Propensi ty to adverse reaction s Active Unknown - See comments 2017-06 00:00: 00 [facility] Lisinopr il Propensi ty to adverse reaction s Active Cough 2017-06 00:00: 00 [facility] Statins- Hmg-Coa Reductas e Inhibito rs Propensi ty to adverse reaction s Active Other - See comments 2017-06 00:00: 00 Muscle cramps [facility] Valsarta n Propensi ty to adverse reaction s Active Cough 2017-06 00:00: 00 Muscle cramps [facility] ASPIRIN- DIPYRIDA MOLE DRUG Active Other-Cmnt 2017-06 00:00: 00 [facility] DEXAMETH ASONE DRUG INGREDI Active Other-Cmnt 2017-06 00:00: 00 [facility] DILTIAZE M DRUG INGREDI Active Other-Cmnt 2017-06 00:00: 00 [facility] GUANFACI NE DRUG INGREDI Active Unknown-Cmnt 2017-06 00:00: 00 [facility] LISINOPR IL DRUG INGREDI Active COUGH 2017-06 00:00: 00 [facility] STATINS- HMG-COA REDUCTAS E INHIBITO RS Drug Class Active Other-Cmnt 2017-06 00:00: 00 [facility] VALSARTA N DRUG INGREDI Active Other-Cmnt 2017-06 0-30 00:00: 00 [facility] Social History Social Habit Start Date Stop Date Quantity Comments Source [facility] Alcoholic beverage intake 2023-12-20 00:00:00 2023-12-20 00:00:00 Current non-drinker of alcohol (finding) [facility] Alcohol intake 2023-06-07 00:00:00 2023-06-07 00:00:00 Current non-drinker of alcohol (finding) [facility] History of Social function 2023-06-06 00:00:00 2023-06-06 00:00:00 [facility] Sex assigned at 1940 00:00:00 1940 00:00:00 [facility] Smoking Status Start Date Stop Date Source Never smoked tobacco [facility] Medications Ordered Medication Name Filled Medication Name Start Date Stop Date Current Medication? Ordering Clinician Indication Dosage Frequency Signature (SIG) Comments Components Source rivastigmin e tartrate 1.5 mg capsule 8-05 00:00: 00 Yes [id number] 1.5mg TAKE 1 CAPSULE BY MOUTH EVERY MORNING AND EVENING. [facility] water for irrigation irrigation solution 12-18 15:21: 00 12-18 15:32 :52 No PRN, Starting on Sun12/19/23 at 1021, Until Sun12/19/23 at 1032, Routine, Intra-op [facility] sodium chloride (NS) injection 12-18 15:21: 00 12-18 15:32 :52 No PRN, Starting on Sun12/19/23 at 1021, Until Sun12/19/23 at 1032, Routine, Intra-op [facility] neomycin-po lymyxin-dex amethasone (MAXITROL) 3.5 mg/g-10,000 unit/g-0.1 % ophthalmic ointment 12-18 15:21: 00 12-18 15:32 :52 No PRN, Starting on Sun12/19/23 at 1021, Until Sun12/19/23 at 1032, Routine, Intra-op [facility] dexamethaso ne (DECADRON PHOSPHATE) injection 12-18 15:21: 00 12-18 15:32 :52 No PRN, Starting on Sun12/19/23 at 1021, Until Sun12/19/23 at 1032, Routine, [facility]op [facility] ceFAZolin (ANCEF) injection 12-18 15:21: 00 12-18 15:32 :52 No PRN, Starting on Sun12/19/23 at 1021, Until Sun12/19/23 at 1032, TONI, Intra-op [facility] carbachoL (MIOSTAT) 0.01 % intraocular injection 12-18 15:20: 00 12-18 15:32 :52 No PRN, Starting on Sun12/19/23 at 1020, Until Sun12/19/23 at 1032, Routine, Intra-op [facility] chondroitin sulf-sod hyaluronate (DUOVISC VISCO ELASTIC) intraocular injection 12-18 15:11: 00 12-18 15:32 :52 No PRN, Starting on Sun12/19/23 at 1011, Until Sun12/19/23 at 1032, Routine, Intra-op [facility] EPINEPHrine 1:1,000 (1 mg/mL) (ADRENALIN) injection 12-18 15:10: 00 12-18 15:32 :52 No PRN, Starting on Sun12/19/23 at 1010, Until Sun12/19/23 at 1032, Routine, Intra-op [facility] balanced salt irrig soln comb1 (BSS PLUS) ophthalmic solution 500 mL bag 12-18 15:10: 00 12-18 15:32 :52 No PRN, Starting on Sun12/19/23 at 1010, Until Sun12/19/23 at 1032, Routine, Intra-op [facility] eye block syringe 11 mL 12-18 14:59: 00 12-18 15:32 :52 No PRN, Starting on Sun12/19/23 at 0959, Until Sun12/19/23 at 1032, Intra-op [facility] Hyaluronida se, Human Recomb. (HYLENEX) injection 12-18 14:59: 00 12-18 15:32 :52 No PRN, Starting on Sun12/19/23 at 0959, Until Sun12/19/23 at 1032, Routine, Intra-op [facility] docusate 100 mg capsule 12-18 10:30: 42 Yes 100mg Take 1 capsule by mouth in the morning and 1 capsule in the evening. [facility] acetaminoph en 325 mg tablet 12-18 10:30: 42 Yes 650mg Take 2 tablets by mouth every 6 (six) hours as needed. [facility] aspirin 81 mg EC tablet 12-18 10:30: 42 Yes 81mg Take 1 tablet by mouth in the morning. [facility] clopidogreL 75 mg tablet 12-18 10:30: 42 Yes 75mg Take 1 tablet by mouth in the morning. [facility] DULoxetine 30 mg CDRS 12-18 10:30: 42 Yes 30mg Take 30 mg by mouth in the morning. [facility] Ferrous Fumarate 325 mg (106 mg iron) tablet 12-18 10:30: 42 Yes 325mg Take 1 tablet by mouth in the morning. [facility] loratadine (CLARITIN) 10 mg tablet 12-18 10:30: 42 Yes 10mg Take 1 tablet by mouth at bedtime as needed. [facility] albuterol 90 mcg/actuati on inhaler 12-18 10:30: 42 Yes 2{puff} Inhale 2 Puffs every 6 (six) hours as needed for Wheezing or Shortness of Breath. [facility] loperamide 2 mg capsule 12-18 10:30: 42 Yes 2mg Take 1 capsule by mouth every 4 (four) hours as needed for Diarrhea. [facility] lactulose 10 gram/15 mL oral solution 12-18 10:30: 42 Yes 30mL Take 30 mL by mouth 2 (two) times daily as needed for Constipati on. [facility] ondansetron 4 mg tablet 12-18 10:30: 42 Yes 4mg Take 1 tablet by mouth every 8 (eight) hours as needed. [facility] betamethaso ne valerate 0.1 % ointment 12-18 08:43: 31 Yes Apply to area(s) as needed. [facility] HYDROXYZINE PAMOATE ORAL 12-18 08:43: 21 Yes 1{capsu le} Take 1 TAB-CAP/M2 by mouth as needed. [facility] melatonin 3 mg tablet 12-18 08:43: 21 Yes 6mg Take 2 tablets by mouth at bedtime as needed. [facility] montelukast 10 mg tablet 12-18 08:43: 21 Yes 10mg Take 1 tablet by mouth as needed. [facility] fexofenadin e 180 mg tablet 12-18 08:43: 21 Yes 180mg Take 1 tablet by mouth as needed for Allergies. [facility] methocarbam ol 500 mg tablet 12-18 08:43: 21 Yes 500mg Take 1 tablet by mouth as needed. [facility] nystatin 100,000 unit/gram cream 12-18 08:43: 21 Yes Apply to area(s) as needed. [facility] rivastigmin e tartrate 1.5 mg capsule 04 00:00: 00 01-06 00:00 :00 No [id number] 1.5mg Take 1 capsule by mouth every morning and evening. [facility] rivastigmin e tartrate 1.5 mg capsule 1-24 00:00: 00 09-05 00:00 :00 No [id number] 1.5mg Take 1 capsule by mouth every morning and evening. [facility] neomycin-po lymyxin-dex amethasone (MAXITROL) 3.5 mg/g-10,000 unit/g-0.1 % ophthalmic ointment 06-06 16:41: 00 06-06 16:47 :26 No PRN, Starting on Sun06/06/23 at 1041, Until Sun06/06/23 at 1047, Routine, Intra-op [facility] dexamethaso ne (DECADRON PHOSPHATE) injection 06-06 16:41: 00 06-06 16:47 :26 No PRN, Starting on Sun06/06/23 at 1041, Until Sun06/06/23 at 1047, Routine, Intra-op [facility] ceFAZolin (ANCEF) injection 06-06 16:41: 00 06-06 16:47 :26 No PRN, Starting on Sun06/06/23 at 1041, Until Sun06/06/23 at 1047, TONI, Intra-op [facility] carbachoL (MIOSTAT) 0.01 % intraocular injection 06-06 16:40: 00 06-06 16:47 :26 No PRN, Starting on Sun06/06/23 at 1040, Until Sun06/06/23 at 1047, Routine, Intra-op [facility] sodium chloride (NS) injection 06-06 16:36: 00 06-06 16:47 :26 No PRN, Starting on Sun06/06/23 at 1036, Until Sun06/06/23 at 1047, Routine, Intra-op [facility] EPINEPHrine 1:1,000 (1 mg/mL) (ADRENALIN) injection 06-06 16:34: 00 06-06 16:47 :26 No PRN, Starting on Sun06/06/23 at 1034, Until Sun06/06/23 at 1047, Routine, Intra-op [facility] chondroitin sulf-sod hyaluronate (DUOVISC VISCO ELASTIC) intraocular injection 06-06 16:31: 00 06-06 16:47 :26 No PRN, Starting on Sun06/06/23 at 1031, Until Sun06/06/23 at 1047, Routine, Intra-op [facility] water for irrigation irrigation solution 06-06 16:24: 00 06-06 16:47 :26 No PRN, Starting on Sun06/06/23 at 1024, Until Sun06/06/23 at 1047, Routine, Intra-op [facility] balanced salt irrig soln comb1 (BSS PLUS) ophthalmic solution 500 mL bag 06-06 16:21: 00 06-06 16:47 :26 No PRN, Starting on Sun06/06/23 at 1021, Until Sun06/06/23 at 1047, Routine, Intra-op [facility] Hyaluronida se, Human Recomb. (HYLENEX) injection 06-06 16:20: 00 06-06 16:47 :26 No PRN, Starting on Sun06/06/23 at 1020, Until Sun06/06/23 at 1047, Routine, Intra-op [facility] eye block syringe 11 mL 06-06 16:20: 00 06-06 16:47 :26 No PRN, Starting on Sun06/06/23 at 1020, Until Sun06/06/23 at 1047, Intra-op [facility] cyclopent 1%-tropic 1%-phenyl 2.5%-ketor 0.5% (MYDRIATIC #5) ophthalmic solution syringe 0.5 mL 06-06 15:00: 00 06-06 14:55 :00 No .5mL 0.5 mL, Right Eye, ONCE, 1 dose, On Sun06/06/23 at 0900, Routine, DSU Pre-op [facility] lactated ringers IV infusion 1,000 mL 06-06 15:00: 00 06-06 14:55 :00 No 1000mL at 42 mL/hr, 1,000 mL, IV Infusion, ONCE, 1 dose, On Sun06/06/23 at 0900, Routine, DSU Pre-op [facility] docusate 100 mg capsule 06-06 11:20: 47 Yes 100mg Take 1 capsule by mouth in the morning and 1 capsule in the evening. [facility] MULTIVITAMI N ORAL 06-06 11:20: 47 Yes Take 1 TAB-CAP/M2 by mouth daily. [facility] melatonin 3 mg tablet 06-06 11:20: 47 Yes 3mg Take 1 tablet by mouth at bedtime. [facility] montelukast 10 mg tablet 06-06 11:20: 47 Yes 10mg Take 1 tablet by mouth as needed. [facility] fexofenadin e 180 mg tablet 06-06 11:20: 47 Yes 180mg Take 1 tablet by mouth as needed for Allergies. [facility] methocarbam ol 500 mg tablet 06-06 11:20: 47 Yes 500mg Take 1 tablet by mouth as needed. [facility] nystatin 100,000 unit/gram cream 06-06 11:20: 47 Yes Apply to area(s) as needed. [facility] acetaminoph en 325 mg tablet 06-06 11:20: 47 Yes 650mg Take 2 tablets by mouth every 6 (six) hours as needed. [facility] betamethaso ne valerate 0.1 % ointment 06-06 11:20: 47 Yes Apply to area(s) as needed. [facility] aspirin 81 mg EC tablet 06-06 11:20: 47 Yes 81mg Take 1 tablet by mouth in the morning. [facility] clopidogreL 75 mg tablet 06-06 11:20: 47 Yes 75mg Take 1 tablet by mouth in the morning. [facility] DULoxetine (CYMBALTA) 60 mg capsule 06-06 11:20: 47 Yes 60mg Take 1 capsule by mouth in the morning. [facility] Ferrous Fumarate 325 mg (106 mg iron) tablet 06-06 11:20: 47 Yes 325mg Take 1 tablet by mouth in the morning. [facility] loratadine (CLARITIN) 10 mg tablet 06-06 11:20: 47 Yes 10mg Take 1 tablet by mouth in the morning. [facility] albuterol 90 mcg/actuati on inhaler 06-06 11:20: 47 Yes 2{puff} Inhale 2 Puffs every 6 (six) hours as needed for Wheezing or Shortness of Breath. [facility] loperamide 2 mg capsule 06-06 11:20: 47 Yes 2mg Take 1 capsule by mouth every 4 (four) hours as needed for Diarrhea. [facility] lactulose 10 gram/15 mL oral solution 06-06 11:20: 47 Yes 30mL Take 30 mL by mouth 2 (two) times daily as needed for Constipati on. [facility] ondansetron 4 mg tablet 06-06 11:20: 47 Yes 4mg Take 1 tablet by mouth every 8 (eight) hours as needed. [facility] rivastigmin e tartrate 1.5 mg capsule 06-05 00:00: 00 06-26 00:00 :00 No [id number] 1.5mg Take 1 capsule by mouth every morning and evening. [facility] lactulose 10 gram/15 mL oral solution 2022-06 13:28: 18 Yes 30mL Take 30 mL by mouth 2 (two) times daily as needed for Constipati on. [facility] ondansetron 4 mg tablet 2022-06 13:28: 18 Yes 4mg Take 1 tablet by mouth every 8 (eight) hours as needed. [facility] aspirin 81 mg EC tablet 2022-06 13:28: 17 Yes 81mg Take 1 tablet by mouth in the morning. [facility] clopidogreL 75 mg tablet 2022-06 13:28: 17 Yes 75mg Take 1 tablet by mouth in the morning. [facility] DULoxetine (CYMBALTA) 60 mg capsule 2022-06 13:28: 17 Yes 60mg Take 1 capsule by mouth in the morning. [facility] Ferrous Fumarate 325 mg (106 mg iron) tablet 2022-06 13:28: 17 Yes 325mg Take 1 tablet by mouth in the morning. [facility] loratadine (CLARITIN) 10 mg tablet 2022-06 13:28: 17 Yes 10mg Take 1 tablet by mouth in the morning. [facility] albuterol 90 mcg/actuati on inhaler 2022-06 13:28: 17 Yes 2{puff} Inhale 2 Puffs every 6 (six) hours as needed for Wheezing or Shortness of Breath. [facility] loperamide 2 mg capsule 2022-06 13:28: 17 Yes 2mg Take 1 capsule by mouth every 4 (four) hours as needed for Diarrhea. [facility] docusate 100 mg capsule 2022-06 13:12: 22 Yes 100mg Take 1 capsule by mouth in the morning and 1 capsule in the evening. [facility] MULTIVITAMI N ORAL 2022-06 13:12: 22 Yes Take 1 TAB-CAP/M2 by mouth daily. [facility] melatonin 3 mg tablet 2022-06 13:12: 22 Yes 3mg Take 1 tablet by mouth at bedtime. [facility] montelukast 10 mg tablet 2022-06 13:12: 22 Yes 10mg Take 1 tablet by mouth as needed. [facility] fexofenadin e 180 mg tablet 2022-06 13:12: 22 Yes 180mg Take 1 tablet by mouth as needed for Allergies. [facility] methocarbam ol 500 mg tablet 2022-06 13:12: 22 Yes 500mg Take 1 tablet by mouth as needed. [facility] nystatin 100,000 unit/gram cream 2022-06 13:12: 22 Yes Apply to area(s) as needed. [facility] acetaminoph en 325 mg tablet 2022-06 13:12: 22 Yes 650mg Take 2 tablets by mouth every 6 (six) hours as needed. [facility] betamethaso ne valerate 0.1 % ointment 2022-06 13:12: 22 Yes Apply to area(s) as needed. [facility] docusate 100 mg capsule 2017-06 14:56: 42 Yes 200mg Take 200 mg by mouth 2 (two) times daily. [facility] MULTIVITAMI N ORAL 2017-06 14:56: 42 Yes Take 1 TAB-CAP/M2 by mouth daily. [facility] melatonin 3 mg tablet 2017-06 14:56: 42 Yes 3mg Take 3 mg by mouth at bedtime. [facility] montelukast 10 mg tablet 2017-06 14:56: 42 Yes 10mg Take 10 mg by mouth as needed. [facility] fexofenadin e 180 mg tablet 2017-06 14:56: 42 Yes 180mg Take 180 mg by mouth as needed for Allergies. [facility] methocarbam ol 500 mg tablet 2017-06 14:56: 42 Yes 500mg Take 500 mg by mouth as needed. [facility] nystatin 100,000 unit/gram cream 2017-06 14:56: 42 Yes Apply to area(s) as needed. [facility] acetaminoph en 325 mg tablet 2017-06 14:56: 42 Yes 650mg Take 650 mg by mouth every 6 (six) hours as needed. [facility] betamethaso ne valerate 0.1 % ointment 2017-06 14:56: 42 Yes Apply to area(s) as needed. [facility] Nitrofurant oin&Nit. Macrocryst 100 mg capsule 2017-06 00:00: 00 Yes [facility] amLODIPine 10 mg tablet 2017-06 018 00:00: 00 Yes 10mg Take 1 tablet by mouth in the morning. [facility] meloxicam 7.5 mg tablet 2017-06 0-09 00:00: 00 Yes TAKE 1 TABLET BY MOUTH EVERY DAY IN THE MORNING [facility] tamsulosin 0.4 mg 24 hr capsule 12 00:00: 00 Yes .4mg Take 1 capsule by mouth in the morning. [facility] XARELTO 15 mg tablet 02-11 00:00: 00 Yes [facility] metoprolol tartrate 12.5 mg 02-06 00:00: 00 Yes 12.5mg Take 1 half tablet by mouth in the morning and 1 half tablet in the evening. [facility] metoprolol tartrate 50 mg tablet 02-06 00:00: 00 Yes [facility] Vital Signs Vital Name Observation Time Observation Value Comments S ource Respiratory rate 2023-12-19 15:53:00 19 /min [facility] Systolic blood pressure 2023-12-19 15:52:00 156 mm[Hg] [facility] Diastolic blood pressure 2023-12-19 15:52:00 99 mm[Hg] [facility] Heart rate 2023-12-19 15:52:00 64 /min [facility] Oxygen saturation in Arterial blood by Pulse oximetry 2023-12-19 15:52:00 96 /min [facility] Body temperature 2023-12-19 15:33:00 36.44 Ximena [facility] Body weight 2023-12-17 15:00:00 85.276 kg [facility] BMI 2023-12-17 15:00:00 25.50 kg/m2 [facility] Systolic blood pressure 2023-12-19 13:50:00 154 mm[Hg] [facility] Diastolic blood pressure 2023-12-19 13:50:00 77 mm[Hg] [facility] Heart rate 2023-12-19 13:50:00 60 /min [facility] Respiratory rate 2023-12-19 13:50:00 15 /min [facility] Oxygen saturation in Arterial blood by Pulse oximetry 2023-12-19 13:50:00 98 /min [facility] Body weight 2023-12-17 15:00:00 85.276 kg [facility] BMI 2023-12-17 15:00:00 25.50 kg/m2 [facility] Systolic blood pressure 2023-06-06 17:00:00 135 mm[Hg] [facility] Diastolic blood pressure 2023-06-06 17:00:00 65 mm[Hg] [facility] Heart rate 2023-06-06 17:00:00 72 /min [facility] Respiratory rate 2023-06-06 17:00:00 18 /min [facility] Oxygen saturation in Arterial blood by Pulse oximetry 2023-06-06 17:00:00 99 /min [facility] Body temperature 2023-06-06 16:43:00 36.11 Ximena [facility] Body height 2023-05-30 19:00:00 182.9 cm [facility] Body weight 2023-05-30 19:00:00 87 kg [facility] BMI 2023-05-30 19:00:00 26.01 kg/m2 [facility] Systolic blood pressure 2023-06-06 14:54:00 152 mm[Hg] [facility] Diastolic blood pressure 2023-06-06 14:54:00 96 mm[Hg] [facility] Heart rate 2023-06-06 14:54:00 86 /min [facility] Body temperature 2023-06-06 14:54:00 36.78 Ximena [facility] Respiratory rate 2023-06-06 14:54:00 19 /min [facility] Oxygen saturation in Arterial blood by Pulse oximetry 2023-06-06 14:54:00 96 /min [facility] Body height 2023-05-30 19:00:00 182.9 cm [facility] Body weight 2023-05-30 19:00:00 87 kg [facility] BMI 2023-05-30 19:00:00 26.01 kg/m2 [facility] Diastolic blood pressure 2023-06-05 21:13:00 86 mm[Hg] [facility] Systolic blood pressure 2023-06-05 21:13:00 167 mm[Hg] [facility] Body height 2023-06-05 21:12:00 182.9 cm [facility] Body weight 2023-06-05 21:12:00 80.831 kg [facility] BMI 2023-06-05 21:12:00 24.17 kg/m2 [facility] Procedures Procedure Date / Time Performed Performing Clinician Source [id number] - ID XCAPSL CTRC RMVL INSJ IO LENS PROSTH W/O ECP 2023-12-19 14:47:00 Jeffery Sahu [facility] PHACOEMULSIFICATION OF CATARACT WITH INTRAOCULAR LENS IMPLANT 2023-06-06 16:09:00 Jeffery Sahu [facility] CONSENT/REFUSAL FOR DIAGNOSI S AND TREATMENT 2023-06-05 20:44:20 Doctor Unassigned, [place] [facility] REFERRAL- REQUEST/RESPONSE 2023-05-24 06:01:00 Doctor Unassigned, [place] [facility] NOTICE OF BILLING PRACTICES FOR MEDICARE PATIENTS 2023-05-21 21:43:42 Doctor Unassigned, [place] [facility] NOTICE OF BILLING PRACTICES FOR MEDICARE PATIENTS 2023-05-21 21:43:42 Doctor Unassigned, [place] [facility] NO SHOW OR MISSED APPOINTMEN T POLICY ACKNOWLEDGEMENT 2023-05-21 21:41:21 Doctor Unassigned, [place] [facility] NO SHOW OR MISSED APPOINTMEN T POLICY ACKNOWLEDGEMENT 2023-05-21 21:41:21 Doctor Unassigned, [place] [facility] PATIENT FINANCIAL POLICY 2023-05-21 21:40:50 Doctor Unassigned, [place] [facility] PATIENT FINANCIAL POLICY 2023-05-21 21:40:50 Doctor Unassigned, [place] [facility] ASSIGNMENT OF BENEFITS 2023-05-21 21:40:25 Doctor Unassigned, [place] [facility] ASSIGNMENT OF BENEFITS 2023-05-21 21:40:25 Doctor Unassigned, [place] [facility] CONSENT/REFUSAL FOR DIAGNOSI S AND TREATMENT 2023-05-21 21:40:03 Doctor Unassigned, [place] [facility] CONSENT/REFUSAL FOR DIAGNOSI S AND TREATMENT 2023-05-21 21:40:03 Doctor Unassigned, [place] [facility] [id number] 2022-08-16 00:00:00 GIBJE.01 [facility] [id number] 2022-08-16 00:00:00 GIBJE.01 [facility] [id number] 2022-08-10 00:00:00 CHAAB.01 [facility] [id number] 2022-08-10 00:00:00 CHAAB.01 [facility] [id number] 2022-08-10 00:00:00 CHAAB.01 [facility] [id number] 2022-08-10 00:00:00 CHAAB.01 [facility] [id number] 2022-08-10 00:00:00 CHAAB.01 [facility] [facility] [id number] 2022-08-10 00:00:00 CHAAB.01 [facility] [id number] 2022-08-10 00:00:00 CHAAB.01 [facility] Encounters Start Date/Time End Date/Time Encounter Type Admission Type Attending [facility] Care Facility Care Department Encounter ID Source 2023-11-30 16:03:24 Outpatient JEFFERY DIAZ [facility] OPH [id number] [facility] 2024-01-07 00:00:00 2024-01-07 00:00:00 Elaina Zapata [facility]MAR[facility] 1.2.840.114 350.1.13.10 4.2.7.2.686 [id number] [id number] [facility] 2023-12-19 08:28:00 2023-12-19 14:15:00 Hospital Encounter Jeffery Sahu [facility] 1.2.840.114 350.1.13.10 4.2.7.2.686 [id number] [id number] [facility] 2023-12-19 08:28:00 2023-12-19 11:00:00 Outpatient JEFFERY DIAZ [facility] OPH [id number] [facility] 2023-12-19 09:31:00 2023-12-19 10:04:00 Surgery Jeffery Sahu [facility] 1.2.840.114 350.1.13.10 4.2.7.2.686 [id number] [id number] [facility] 2023-09-06 00:00:00 2023-09-06 00:00:00 [facility] 1.2840.114 350.1.13.10 4.2.7.2.686 [id number] [id number] [facility] 2023-07-17 00:00:00 2023-07-17 00:00:00 [facility] [id number] [facility] 2023-07-09 09:00:00 2023-07-09 09:00:00 Outpatient ELAINA VALDEZ [facility] [id number] [facility] 2023-07-03 00:00:00 2023-07-03 00:00:00 Refill Marquez [facility] 1.2840.114 350.1.13.10 4.2.7.2.686 [id number] [id number] [facility] 2023-06-26 00:00:00 2023-06-26 00:00:00 Refasif Marquez [facility] SANDRA?[facility] 1.2.840.114 350.1.13.10 4.2.7.2.686 [id number] 092 [id number] [facility] 2023-06-12 00:00:00 2023-06-12 00:00:00 Ingrid Fritz [facility] SANDRA?[facility] 1.2.840.114 350.1.13.10 4.2.7.2.686 [id number] 092 [id number] [facility] 2023-06-06 08:44:00 2023-06-06 11:10:00 Hospital Encounter Jeffery Sahu [facility] 1.2840.114 350.1.13.10 4.2.7.2.686 [id number] [id number] [facility] 2023-06-06 08:44:00 2023-06-06 11:10:00 Outpatient R JEFFERY SAHU [facility] OPH [id number] [facility] 2023-06-06 09:31:00 2023-06-06 10:04:00 Surgery Jeffery Sahu [facility] 1.2.840.114 350.1.13.10 4.2.7.2.686 [id number] [id number] [facility] 2023-06-05 15:00:00 2023-06-05 15:55:32 Outpatient R [facility] [id number] [facility] 2023-06-05 15:00:00 2023-06-05 15:55:32 [facility] 1.2840.114 350.1.13.10 4.2.7.2.686 [id number] 092 [id number] [facility] 2023-06-05 00:00:00 2023-06-05 00:00:00 Orders Only Doctor Unassigned, [facility] 1.2840.114 350.1.13.10 4.2.7.2.686 [id number] 009 [id number] [facility] 2023-05-24 00:00:00 2023-05-24 00:00:00 Orders Only Doctor Unassigned, [facility] 1.2840.114 350.1.13.10 4.2.7.2.686 [id number] [id number] [facility] 2022-08-16 16:49:00 2022-09-02 11:18:00 Inpatient Arthur Jacques [facility] REHA [id number] [facility] 2022-08-09 15:47:00 2022-08-16 16:47:00 Inpatient Thompson Dean [facility] INTE [id number] [facility] Results Test Description Test Time Test Comments Results Result Co mments Source BASIC METABOLIC [id number] 15:02:00* Test Item Value Reference Range Interpretation [...] = CA) 9.1 mg/dL 8.0-10.5 N CALCIUM [id number] 15:02:00* Test Item Value Reference Range Interpretation Comme nts CALCIUM IONIZED (test code = ALANNA) 1.16 MMOL/L 1.09-1.30 N COVID 19 INHOUSE [id number] 06:33:00* Test Item Value Reference Range Interpretation Comme nts COVID 19 INHOUSE AG (test code = [id number]) Negative Negative A negative resul t is [...] to perform moderate, high or waivedcomplexity tests. [id number] 07:18:00* Test Item Value Reference Range Interpretation Comme nts ALBUMIN (test code = ALB) 3.20 g/dL 3.4-5.0 L [id number] 07:18:00* Test Item Value Reference Range Interpretation Comme nts PREALBUMIN (test code = PREALB) 12.0 mg/dL 16.0-40.0 L - US RETROPERITONEAL [id number] 00:00:00 [facility] GADIEL ESCALANTEName: BRENNAN AHN : 1940 Sex: M Name: BRENNAN AHN [facility] : 1940 Age/S: 82 / M [address] [place] [address] Unit #: [id number] Loc: [place] [address] Phys: Maura Terrazas MD Acct: [id number] Dis Date: Status: ADM IN PHONE #: [phone] Exam Date: 08/28/2022 1300 FAX #: [phone] Reason: renal failureEXAMS: CPT CODE: [id number] US RETROPERITONEAL [facility] [address] PROCEDURE INFORMATION: Exam: US Retroperitoneal; Complete; Kidneys and Bladder Exam date and time: 08/28/2022 9:42 AM Age: 82 years old Clinicalindication: Other: Renal failure TECHNIQUE: Imaging protocol: Real-time [...] Terrazas MD; Arthur Fuentes Technologist: [facility] Date/Time: 08/28/2022 (1416) [email or web address] Orig Print D/T: S: 08/29/19 (1417) Probe: PAGE 1 Signed ReportBASIC METABOLIC [id number] 07:45:00* Test Item Value Reference Range Interpretation [...] = CA) 9.0 mg/dL 8.0-10.5 N CALCIUM [id number] 07:45:00* Test Item Value Reference Range Interpretation Comme nts CALCIUM IONIZED (test code = ALANNA) 1.17 MMOL/L 1.09-1.30 N GLUCOSE [id number] 20:40:00* Test Item Value Reference Range Interpretation Comme nts GLUCOSE BEDSIDE (test code = GLUBED) 106 MG/DL 70-110 N Performed by cer tified scientific process operator at [facility] CORTISOL [id number] 07:42:00* Test Item Value Reference Range Interpretation Comme nts CORTISOL AM (test code = CORTAM) 29.44 ug/dL Reference Interv al: 2mo-13yrs: 2.4-22.9 ug/dL 14-15yrs(Male): 2.5-22.9 ug/dL 14-15yrs(Female): 2.5-28.6 ug/dL 16-18yrs(M/F): 2.4-28.6 ug/dLAdults(M/F) AM: 4.3-22.4 ug/dLAdults(M/F) PM: 3.1-16.7 ug/dL BASIC METABOLIC [id number] 07:37:00* Test Item Value Reference Range Interpretation [...] = CA) 9.1 mg/dL 8.0-10.5 N CALCIUM [id number] 07:37:00* Test Item Value Reference Range Interpretation Comme nts CALCIUM IONIZED (test code = ALANNA) 1.14 MMOL/L 1.09-1.30 N UA RFLX MICR CULT IF [id number] 10:40:00* Test Item Value Reference Range Interpretation [...] STRAIGHT CATH- XR RIBS UNI 2 V [id number] 00:00:00 [facility] : 1940 Sex: M FAX: Arthur Ceja [phone] [place]: St: ADM Name: BRENNAN AHN [facility] : 1940 Age/S: 82/M [address] [place] [address] Blvd Unit #: [id number] Loc: [address] [address] Phys: Arthur Fuentes MD Acct: [id number] Dis Date: Status: ADM IN PHONE #: [phone] Exam Date: 08/24/2022 4918 FAX #: [phone] Reason: FALL, LEFT RIB PAIN EXAMS: CPT CODE: [id number] XR RIBS UNI 2 VLT 79800 PROCEDURE INFORMATION: Exam: XR Left Ribs Exam [...] transverse fractures of the left lateral 7th and8th ribs. Degenerative changes of the thoracic spine. Median sternotomy wires. Cervical spine fusion hardware. Notes: If there is further concern can consider additional views or bone scan. IMPRESSION: Healing fractures of the left lateral 7th and 8th ribs. Small left pleural effusion. at 1606 Reported and signed by: Florentino Perez M.D. CC: Arthur Fuentes Technologist: Irving Jiang, RT(R); Mabel James RT(R) Trnohrd Date/Time/By: 08/24/2022 (160) : By: [email or web address] Orig Print D/T: S: 08/24/2022 (8661) PAGE 1 Signed ReportBASIC METABOLIC [id number] 07:54:00* Test Item Value Reference Range Interpretation [...] code = CA) 9.4 mg/dL 8.0-10.5 N [id number] 07:54:00* Test Item Value Reference Range Interpretation Comme nts MAGNESIUM (test code = MAG) 1.89 mg/dL 1.80-2.40 N CBC W/AUTO [id number] 07:40:00* Test Item Value Reference Range Interpretation [...] MDIFF) NO - XR ELBOW 2 VIEWS [id number] 00:00:00 [facility], BRENNAN GERRY : 1940 Sex: M FAX: Florentino Tripp [phone] [place]: St: [facility] FAX: Arthur Ceja [phone] Name: BRENNAN AHN [facility] Gadiel Montemayor : 1940 Age/S: 82/M [address] [place] [address] Unit #: [id number] Loc: [address] [address] Phys: Florentino Jimenez Acct: [id number] Dis Date: Status: ADM IN PHONE #: [phone] Exam Date: 08/23/2022 184 FAX #: [phone] Reason: PAIN TO AREA, S/P FALL ON RIGHT SIDE 08/22 EXAMS: CPT CODE: [id number] XR ELBOW [address] [place] [address] PROCEDURE INFORMATION: Exam: XR Right Elbow Exam date and time: 08/23/2022 6:28 PM Age: 82 years old Clinical indication: Pain; Elbow; Right; Additional info: Pain to area, S/P fall on right side 08/22 TECHNIQUE: Imaging protocol: Radiologic exam of the right elbow. Views: 1 or 2 views. AP and Lateral COMPARISON: DX XR SHOULDER 2V RT 08/22/2022 3:36 PM FINDINGS: Bones/joints: No [...] CC: Florentino PINO; Arthur Fuentes Technologist: Shikha Bateman RT(R) Trnscrd Date/Time/By: 08/23/2022 (1922) :By: [email or web address] Orig Print D/T: S: 08/23/2022 (1922) PAGE 1 Signed ReportBASIC METABOLIC [id number] 08:00:00* Test Item Value Reference Range Interpretation [...] = CA) 9.2 mg/dL 8.0-10.5 N CALCIUM [id number] 08:00:00* Test Item Value Reference Range Interpretation Comme nts CALCIUM IONIZED (test code = ALANNA) 1.14 MMOL/L 1.09-1.30 N - CT HEAD/BRAIN W/O [id number] 00:00:00 [facility] BR[facility]N AHN : 1940 Sex: M Name: BRENNAN AHN [facility] [place] : 1940 Age/S: 82 / M [address] [place] [address] Unit #: [id number] Loc: [place] [address] Phys: Arthur Fuentes MD Acct: [id number] Dis Date: Status: ADM IN PHONE #: [phone] Exam Date: 08/22/2022 1546 FAX #: [phone] Reason: FALL-HIT RIGHT OCCIPTAL AREA ON FLOOR; ON PLAVI EXAMS: CPT CODE: [id number] CT HEAD/BRAIN W/O CONT 78653 ID OCEDURE INFORMATION: Exam: CT Head Without Contrast [...] medicine studies in the 12 months prior tothe current study. COMPARISON: US DUP EXTRACRANIAL ANCA [...] 1 Signed Report (CONTINUED) Name: BRENNAN AHN [facility] Gadiel Montemayor : 1940 Age/S: 82 / M [address] [place] [address] Unit #: [id number] Loc: [place] [address] Phys: Arthur Fuentes MD Acct: [id number] Dis Date: Status: ADM IN PHONE #: [phone] Exam Date: FAX #: [phone] Reason: FALL-HIT RIGHT OCCIPTAL AREA ON FLOOR; ON PLAVI EXAMS: CPT CODE: [id number] CT HEAD/BRAIN W/O CONT 33169 (Continued) CC: Arthur Fuentes Technologist:Mabel Mcgowan RT(R)(CT); Harpreet Jung CTDI: DLP: Trnscb Date/Time: 08/22/2022 (1656) [email or web address] Orig Print D/T: S: 08/22/2022 (1657) PAGE 2 Signed Report- XR SHOULDER 2 + V [id number] 00:00:00 [facility] : 1940 Sex: M FAX: Arthur Ceja [phone] [place]: St: ADM Name: BRENNAN AHN [facility] [place] : 1940 Age/S: 82/M [address] [place] [address] Unit #: [id number] Loc: [place] [address] Phys: Arthur Fuentes MD Acct: [id number] Dis Date: Status: ADM IN PHONE #: [phone] Exam Date: 08/22/2022 1535 FAX #: [phone] Reason: FALL ON RIGHT SIDE, C/O RIGHT SHOULDER PAIN EXAMS: CPT CODE: [id number] XR SHOULDER 2 + V RT 74649 PROCEDURE INFORMATION: Exam: XR Right Shoulder Exam date and time:08/22/2022 3:36 PM Age: 82 years old Clinical indication: Pain; Shoulder; Right; Additional info: Fall on right side, C/O right shoulder pain TECHNIQUE: Imaging protocol: Radiologic exam of the right s houlder. Views: 2 or more views. AP INT/ EXT ROTATION, SCAPULAR Y COMPARISON: CR XR CHEST 1V 08/16/2022 5:01 AM FINDINGS: Bones/joints: There is normal alignment at the glenohumeral joint. There are no fractures or dislocations. The acromioclavicular joint and coracoclavicular spaces are intact. Thevisualized scapula and clavicle are unremarkable. Soft tissues: [...] 1 Signed ReportUA RFLX MICR CULT IF [id number] 12:22:00* Test Item Value Reference Range Interpretation [...] for culture: RiskForSepsis-no oth srcSpecimen Description: [facility] [id number] 08:01:00* Test Item Value Reference Range Interpretation [...] c ode = MDIFF) NO BASIC METABOLIC [id number] 07:51:00* Test Item Value Reference Range Interpretation [...] code = CA) 9.2 mg/dL 8.0-10.5 N [id number] 07:51:00* Test Item Value Reference Range Interpretation Comme nts ALBUMIN (test code = ALB) 3.50 g/dL 3.4-5.0 N [id number] 07:51:00* Test Item Value Reference Range Interpretation Comme nts PREALBUMIN (test code = PREALB) 14.3 mg/dL 16.0-40.0 L CBC W/AUTO [id number] 07:31:00* Test Item Value Reference Range Interpretation [...] c ode = MDIFF) NO COMPREHENSIVE METABOLIC [id number] 07:24:00* Test Item Value Reference Range Interpretation [...] code = ALKP) 69 IUnit/L 20-125 N [id number] 07:24:00* Test Item Value Reference Range Interpretation Comme nts MAGNESIUM (test code = MAG) 2.11 mg/dL 1.80-2.40 N COVID 19 INHOUSE [id number] 15:29:00* Test Item Value Reference Range Interpretation Comme nts COVID 19 INHOUSE AG (test code = [id number]) Negative Negative A negative resul t is [...] moderate, high or waivedcomplexity tests. BASIC METABOLIC [id number] 02:26:00* Test Item Value Reference Range Interpretation [...] code = CA) 9.6 mg/dL 8.0-10.5 N [id number] 02:26:00* Test Item Value Reference Range Interpretation Comme nts MAGNESIUM (test code = MAG) 2.40 mg/dL 1.80-2.40 N CBC W/AUTO [id number] 02:10:00* Test Item Value Reference Range Interpretation [...] ode = MDIFF) NO - DUP VEIN [id number] 00:00:00 [facility] : 1940 Sex: M Name: BRENNAN AHN [facility] : 1940 Age/S: 82 / M [address] [place] [address] Bl Unit #: [id number] Loc: [place] [address] Phys: Pamela Burnette Acct: [id number] Dis Date: Status: ADM IN PHONE #: [phone] Exam Date: 08/16/2022 1409 FAX #: [phone] Reason: R/O DVT EXAMS: CPT CODE: [id number] DUP VEIN ANCA 84625 PROCEDURE INFORMATION: Exam: US Duplex Lower Extremity Veins, Bilateral Exam date and time: 08/16/2022 1:35 PM Age: 82 years old Clinical indication: Other: S/P cabg; Additional info: R/O dvt TECHNIQUE: Imaging protocol: Real-time duplex ultrasound of the bilateral extremities with 2-D guardado scale, color Doppler flow and spectral waveform analysis including responses to compression and other maneuvers (when performed) with image documentation. Complete exam focused on the lower extremity veins. COMPARISON: US DUP VEIN ANCA 08/09/2022 5:33 PM FINDINGS: Right deep veins: Unremarkable. The common femoral, femoral, proximal profunda femoral and poplitealveins are patent without thrombus. Normal Doppler waveforms. [...] and signed by: Aniket Loredo M.D. CC: DIFFERENTIAL SPECIALIST; Salazar Dee MD; Pamela PINO Technologist: Erica De Guzman RDMS(Facundo)(BR) Trnscb Date/Time: 08/16/2022 (1500) [email or web address] Orig Print D/T: S: 08/16/2022 (1502) Probe: PAGE 1 Signed Report- XR CHEST 1 V 2022-08-16 00:00:00 [facility] MARITZA BRENNAN GARRETT : 1940 Sex: M FAX: DIFFERENTIAL SPECIALIST, [place]: St: ADM FAX: Salazar Delarosa [phone] FAX: Pamela Camacho [phone] Name: BRENNAN AHN [facility] Gadiel Montemayor : 1940 Age/S: 82/M [address] [place] [address] Unit #: [id number] Loc: [address] [address] Phys: Pamela Burnette Acct: [id number] Dis Date: Status: ADM IN PHONE #: [phone] Exam Date: 08/16/2022 06 FAX #: [phone] Reason:Cardiac Surgery Post Op EXAMS: CPT CODE: [id number] XR CHEST 1 V 57928 PROCEDURE INFORMATION: Exam:XR Chest Exam date and time: 08/16/2022 5:01 [...] and signed by: Sha Gordon M.D. CC: DIFFERENTIAL SPECIALIST; Salazar Dee MD; Pamela PINO Technologist: Lance Gerard RT(R) Trnscrd Date/Time/By: 08/16/2022 (103) : By:[email or web address] Orig Print D/T: S: 08/16/2022 (103) PAGE 1 Signed ReportBASIC METABOLIC [id number] 02:25:00* Test Item Value Reference Range Interpretation [...] CA) 9.2 mg/dL 8.0-10.5 N HEPATIC FUNCTION [id number] 02:25:00* Test Item Value Reference Range Interpretation [...] code = ALKP) 68 IUnit/L 20-125 N [id number] 02:25:00* Test Item Value Reference Range Interpretation Comme nts MAGNESIUM (test code = MAG) 2.32 mg/dL 1.80-2.40 N CBC W/AUTO [id number] 02:06:00* Test Item Value Reference Range Interpretation [...] = MDIFF) NO - US SOFT TISSUE [id number] 00:00:00 [facility] AHN[facility]N EMMANUEL GERRY : 1940 Sex: M Name: BRENNAN AHN GERRY [facility] : 1940 Age/S: 82 / M [address] [place] [address] Bl Unit #: [id number] Loc: [place] [address] Phys: Kel Agustin MD Acct: [id number] Dis Date: Status: ADM IN PHONE #: [phone] Exam Date: 08/15/2022 1314 FAX #: [phone] Reason: REEVAL BILPLEURAL EFF EXAMS: CPT CODE: [id number] US SOFT TISSUE TORSO 47716 PROCEDURE INFORMATION: Exam: US C hest, Pleural Space Exam date and time: 08/15/2022 12:26 PM Age: 82 years old Clinical indication: Screening exam; Other screening; Additional info: Reeval anca pleural eff TECHNIQUE: Imaging protocol:Real time ultrasound of the chest was performed with image documentation. Exam focused on the pleural space. COMPARISON: US SOFT TISSUE-TORSO 08/13/2022 3:41 PM FINDINGS: Pleural spaces: There are small bilateral pleural effusions. IMPRESSION: Small bilateral pleural effusions. at 1351 Reported and signed by: Alfreda Joseph M.D. CC: DIFFERENTIAL SPECIALIST; Salazar Dee MD; Kel Agustin MD Technologist: Kavita Vera [facility] Date/Time: 08/15/2022 (436) [email or web address] Orig Print D/T: S: 08/15/2022 (0241) Probe:PAGE 1 Signed Report- XR CHEST 1 [id number] 00:00:00 [facility] : 1940 Sex: M FAX: DIFFERENTIAL SPECIALIST, [place]: St: ADM FAX: Salazar Delarosa [phone] FAX: Pamela Camacho [phone] Name: BRENNAN AHN [facility] : 1940 Age/S: 82/M [address] [place] [address] Unit #: [id number] Loc: [address] [place] [address] Phys: Pamela Burnette Acct: [id number] Dis Date: Status: ADM IN PHONE #: [phone] Exam Date: 08/15/2022 0500 FAX #: [phone] Reason:Cardiac Surgery Post Op EXAMS: CPT CODE: [id number] XR CHEST 1 V 14757 PROCEDURE INFORMATION: Exam:XR Chest Exam date and time: 08/15/2022 4:54 [...] and signed by: Jaylyn Ledesma D.O. CC: DIFFERENTIAL SPECIALIST; Salazar Dee MD; Pameal PINO Technologist: RT Livia(R) Trnschéctor Date/Time/By: 08/15/2022 (0845) : By: [email or web address] Orig Print D/T: S: 08/15/2022 (0846) PAGE 1 Signed [id number] 14:20:00* Test Item Value Reference Range Interpretation Comme nts SURGICAL (test code = SR) R UN DATE: 08/14/22 [facility] - LAB PAGE 1 RUN TIME: 1420 Specimen Inquiry RUN USER: INTERFACE P ATIENT: AHNBRENNAN EMMANUEL [facility] #: [id number] LOC: [place] #: [id number] AGE/SX: 82/M ROOM: [facility] RE08/09/22REG DR: Salazar Dee : [birth year] BED: 1 DIS: STATUS: ADM IN TLOC: SPEC #: [id number] RECD: 08/11/226 STATUS: KIRSTIE JANESSA #: [id number] PARMINDER: 08/10/22- SUBM DR: Salazar Dee MD ENTERED: 08/11/22-1037 SP TYPE: SURGICAL OTHR DR: No Primary or Family Physician DIFFERENTIAL SPECIALIST, Logan Calix MD,Reginaldo Kennedy MD, Amer A MDORDERED: 53090, ANATOMIC SPEC COPIES TO: No Primary or Family Physician DIFFERENTIAL SPECIALIST, Logan Calix MD [address] [place] [address] Salazar Dee MD [address] [place] [address]. [address] [place] [id number] Devin Fox DO [address] [place], [place] [id number] Reginaldo Brown MD [address] [place] [address] Breezy Nance MD [address] [facility] [address] [place] [address] PROCEDURES: 32916 (08/11/22-1036) TISSUES: A. ATRIUM - LEFT ATRIAL APPENDAGE CONTINUED ON NEXT PAGE R UN DATE: 08/14/22 [facility] - LAB PAGE 2 RUN TIME: 1420 Specimen Inquiry RUN USER: INTERFACE S PEC #: [id number] PATIENT: BRENNAN AHN #[id number] (Continued) CLINICAL HISTORY SAME FINAL DIAGNOSIS Heart, left atrial appendage, wedge biopsy: Myocardium with focal mild ischemic change. GROSS DESCRIPTION Received in formalin labeled "left atrial appendage "is a wedge biopsy of heart, 3.4 x 2.8x 2.7 cm, sectioned and entirely submitted (A)-(B). Technical component performed at [facility],[address] [place] [address], [place] [address] Unless gross only, the diagnosis is based [...] Signed SIGNATURE ON FILE Jp Clements 08/14/22 1910 END OF REPORT BASIC METABOLIC [id number] 04:11:00* Test Item Value Reference Range Interpretation [...] code = CA) 8.7 mg/dL 8.0-10.5 N [id number] 04:11:00* Test Item Value Reference Range Interpretation Comme nts MAGNESIUM (test code = MAG) 2.49 mg/dL 1.80-2.40 H CBC W/AUTO [id number] 04:07:00* Test Item Value Reference Range Interpretation [...] = MDIFF) NO - XR CHEST 1 [id number] 00:00:00 [facility] : 1940 Sex: M FAX: DIFFERENTIAL SPECIALIST, [place]: St: ADM FAX: Salazar Delarosa [phone] FAX: Pamela Camacho [phone] Name: BRENNAN AHN [facility] : 1940 Age/S: 82/M [address] [place] [address] Blvd Unit #: [id number] Loc: G.[address] [place] [address] Phys: Pamela Burnette Acct: [id number] Dis Date: Status: ADM IN PHONE #: [phone] Exam Date: 08/14/2022 0648 FAX #: [phone] Reason:Cardiac Surgery Post Op EXAMS: CPT CODE: [id number] XR CHEST 1 V 71127 PROCEDURE INFORMATION: Exam:XR Chest Exam date and time: 08/14/2022 4:58 [...] and signed by: Morteza Allen M.D. CC: DIFFERENTIAL SPECIALIST; Salazar Dee MD; Pamela PINO Technologist: RT Madiha(R) Trnscrd Date/Time/By: 08/14/2022 (08) : By: [email or web address] Orig Print D/T: S: 08/14/2022 (808) PAGE 1 Signed ReportGLUCOSE [id number] 20:07:00* Test Item Value Reference Range Interpretation Comme nts GLUCOSE BEDSIDE (test code = GLUBED) 93 MG/DL 70-110 N Performed by cer tified scientific process operator at [facility] BASIC METABOLIC [id number] 04:39:00* Test Item Value Reference Range Interpretation [...] mg/dL 8.0-10.5 N COMMENTS: POD #1HEPATIC FUNCTION [id number] 04:39:00* Test Item Value Reference Range Interpretation [...] ALKP) 61 IUnit/L 20-125 N COMMENTS: POD #[id number] 04:39:00* Test Item Value Reference Range Interpretation Comme nts MAGNESIUM (test code = MAG) 2.33 mg/dL 1.80-2.40 N COMMENTS: POD #1CBC W/AUTO [id number] 04:37:00* Test Item Value Reference Range Interpretation [...] = MDIFF) NO - US SOFT TISSUE [id number] 00:00:00 [facility] 1940 Sex: M Name: AHNBRENNAN EMMANUEL GERRY [facility] : 1940 Age/S: 82 / M [address] [place] [address] Unit #: [id number] Loc: [place] [address] Phys: Breezy Nance MD Acct: [id number] Dis Date:Status: ADM IN PHONE #: [phone] Exam Date: 08/13/2022 1619 FAX #: [phone] Reason: LEFT PLEURAL EFFUSION EXAMS: CPT CODE: [id number] US SOFT TISSUE TORSO [id number] PROCEDURE INFORMATION: Exam: US Chest, Pleural Space [...] and signed by: Tomy Marion M.D. CC: DIFFERENTIAL SPECIALIST; Angeles Dee MD; Breezy Nance MD Technologist: Beatrice Moreno RDMS(AB) Trnscb Date/Time: 08/13/2022 (2026) [email or web address] Orig Print D/T: S: 08/13/2022 (2026) Probe: PAGE 1 Signed Report- XR CHEST 1 [id number] 00:00:00 [facility] : 1940 Sex: M FAX: DIFFERENTIAL SPECIALIST, [place]: St: ADM FAX: Salazar Delarosa [phone] FAX: Pamela Camacho [phone] Name: BRENNAN AHN [facility] Pratt : 1940 Age/S: 82/M [address] [place] [address] Unit #: [id number] Loc: G.2202 [place] [address] Phys: Pamela Burnette Acct: [id number] Dis Date: Status: ADM IN PHONE #: [phone] Exam Date: 08/13/2022725 FAX #: [phone] Reason:Cardiac Surgery Post Op EXAMS: CPT CODE: [id number] XR CHEST 1 V 47403 PROCEDURE INFORMATION: Exam:XR Chest Exam date and time: 08/13/2022 5:58 [...] fluid suggested at the left costophrenic angle. H eart/Mediastinum: Stable moderate cardiomegaly. Vasculature: Mild aortic calcification. Diaphragm: The left hemidiaphragm is still completely obscured. Bones/joints: Sternotomy. No significant skeletal abnormality. IMPRESSION: 1. Residual dense opacification of each lung base, primarily on the leftside. 2. Slight improvement of left basilar opacity since the most recent exam. 3. Probable small left pleural effusion. 4. Stable moderate cardiomegaly without significant vascular congestion. at 0754 Reported and signed by: Jose David Lazar M.D. CC: DIFFERENTIAL SPECIALIST; Salazar Dee MD; Pamela PINO Technologist: Silvestre liao; RT Magdaleno(R) Trnscrd Date/Time/By: 08/13/2022 (0754) : By: NayelyLS1 Orig Print D/T:S: 08/13/2022 (0751) PAGE 1 Signed ReportGLUCOSE [id number] 14:55:00* Test Item Value Reference Range Interpretation Comme [facility] GLUCOSE BEDSIDE (test code = GLUBED) 83 MG/DL 70-110 N Performed by cer brinaied scientific process operator at [facility] RENAL FUNCTION [id number] 11:35:00* Test Item Value Reference Range Interpretation Comme [facility] SODIUM (test code = NA) 136 mEq/L [...] = PHOS) 3.1 MG/DL 2.5-4.9 N GLUCOSE [id number] 09:50:00* Test Item Value Reference Range Interpretation Comme [facility] GLUCOSE BEDSIDE (test code = GLUBED) 114 MG/DL 70-110 H Performed by cer tified scientific process operator at [facility] POC ARTERIAL BLOOD [id number] 03:45:00* Test Item Value Reference Range Interpretation Comme [facility] POC ARTERIAL BLOOD GAS PH (t est code = POCPHA) 7.372 7.35-7.45 N POC ARTERIAL BLOOD GAS PCO2 (test code = JDVSCG8E) 41.6 mmHg 35.0-45 N POC TCO2 ARTERIAL (test code = POCTCO2) 25.4 POC ARTERIAL BLOOD GAS PO2 ( test code = MZRXI6E) 128.6 mmHg 80-100.0 H POC HCO3 ARTERIAL (test code = JTWARI4I) 24.2 MMOL/L 22.0-26.0 N POC BASE EXCESS (test code = POCBEA) -1.1 MMOL/L -4.0-4.0 N POC O2 SATURATION (test code = POCO2S) 98.8 % 90-100 N FIO2 (test code = FIO2A) 45 % PaO2/FiO2 (test code = WUI7CCJ9) 285.77 mm/Hg ABG DELIVERY (test code = SOLOMON) BiPAP ABG VENT RESP RATE (test cod e = RRA) 14 /MIN ABG SITE (test code = SITEA) Art Line BASIC METABOLIC [id number] 03:45:00* Test Item Value Reference Range Interpretation [...] = POCGLU) 146 MG/DL 70-110 H HEMOGLOBIN [id number] 03:45:00* Test Item Value Reference Range Interpretation Comme nts HEMOGLOBIN ABG (test code = HGB/ABG) 9.9 G/DL 12.5-16.9 L [id number] 03:45:00* Test Item Value Reference Range Interpretation Comme nts HEMATOCRIT (test code = HCT/ABG) 29 % 37.5-50.7 L POC LACTIC [id number] 03:45:00* Test Item Value Reference Range Interpretation Comme nts POC LACTIC ACID (test code = POCLAC) 0.8 mmol/l 0.9-1.7 L BASIC METABOLIC [id number] 02:21:00* Test Item Value Reference Range Interpretation [...] mg/dL 8.0-10.5 N COMMENTS: POD #1HEPATIC FUNCTION [id number] 02:21:00* Test Item Value Reference Range Interpretation [...] ALKP) 57 IUnit/L 20-125 N COMMENTS: POD #[id number] 02:21:00* Test Item Value Reference Range Interpretation Comme nts PHOSPHOROUS (test code = PHOS) 3.1 MG/DL 2.5-4.9 N COMMENTS: POD #[id number] 02:21:00* Test Item Value Reference Range Interpretation Comme nts MAGNESIUM (test code = MAG) 2.16 mg/dL 1.80-2.40 N COMMENTS: POD #1CALCIUM [id number] 02:00:00* Test Item Value Reference Range Interpretation Comme nts CALCIUM IONIZED (test code = ALANNA) 1.16 MMOL/L 1.09-1.30 N CBC W/AUTO [id number] 01:55:00* Test Item Value Reference Range Interpretation [...] = MDIFF) NO - XR CHEST 1 [id number] 00:00:00 [facility] : 1940 Sex: M FAX: DIFFERENTIAL SPECIALIST, [place]: St: ADM FAX: Salazar Delarosa [phone] FAX: Pamela Camacho [phone] Name: BRENNAN AHN [facility] Pratt : 1940 Age/S: 82/M [address] [place] [address] Unit #: [id number] Loc: [address] [place] [address] Phys: Pamela Burnette Acct: [id number] Dis Date: Status: ADM IN PHONE #: [phone] Exam Date: 08/12/2022716 FAX #: [phone] Reason: Cardiac Surgery Post Op Report Has Been Amended EXAMS: CPT CODE: [id number] XR CHEST 1 V [id number] - 08/12/2022 SIGNED 08/12/2022 ADDENDUM: [id number] RAD/CXR1 Notes: Findings were discussedwith Dr. 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 Electronically Signed by Karen Awad on 08/12/2022 at 0955 Reported and signed by: Volodymyr Awda M.D. Report PROCEDURE INFORMATION: Exam: XR Chest Exam date and time: 08/12/2022 6:25 AM Age: 82 years old Clinical indication: Other: Cardiac surgery post op TECHNIQUE: Imaging protocol: Radiologic exam of the chest. Views: 1 view.COMPARISON: 1. CR XR CHEST 1V 08/11/2022 4:58 AM 2. CR XR CHEST 1V 08/10/2022 3:48 PM FINDINGS: Tubes,catheters and devices: Left thoracostomy drain has been removed. Mediastinal drain in place. Right IJ [place] catheter sheath in place. Lungs: Indistinct basilar opacities asymmetric on the left with obscuration of the left hemidiaphragm. Pleural spaces: Small left apical pneumothorax with separation less than 1 cm. Left pleural effusion subjectively increased allowing for differences in patie nt positioning. Small right pleural effusion unchanged. Heart/Mediastinum: Moderate prominence of the cardiomediastinal silhouette is stable allowing for differences in patient positioning. Bones/joints: Sternotomy wires are intact. IMPRESSION: 1. Minimal left apical pneumothorax. Moderate left pleural PAGE 1 Signed Report (CONTINUED) FAX: DIFFERENTIAL SPECIALIST, [place]: St: ADM FAX: Salazar Delarosa [phone] FAX: Pamela Camacho [phone] Name: BRENNAN AHN [facility] : 1940 Age/S: 82/M [address] [place] [address] Unit #: [id number] Loc: [address] [address] Phys: Pamela Burnette Acct: [id number] Dis Date: Status: ADM IN PHONE #: [phone] Exam Date: 08/12/202217 FAX #: [phone] Reason: Cardiac Surgery Post Op Report Has Been Amended EXAMS: CPT CODE: [id number] XR CHEST 1 V 51257 (Continued) effusion subjectively enlarged. 2. Bibasilar atelec tasis versus airspace disease. 3. Stable postoperative cardiomediastinal silhouette. at 0951 Reported and signed by: oVlodymyr Awad M.D. CC: DIFFERENTIAL SPECIALIST; Salazar Dee MD; Pamela PINO Technologist: Silvestre López; RT Magdaleno(R) Trnscrd Date/Time/By: 08/12/2022 (950) : By: Aretha Orig Print D/T: S: 08/12/2022 (51) PAGE 2 Signed ReportGLUCOSE [id number] 08:20:00* Test Item Value Reference Range Interpretation Comme nts GLUCOSE BEDSIDE (test code = GLUBED) 104 MG/DL 70-110 N Performed by cer tified scientific process operator at [facility] GLUCOSE [id number] 06:25:00* Test Item Value Reference Range Interpretation Comme nts GLUCOSE BEDSIDE (test code = GLUBED) 108 MG/DL 70-110 N Performed by cer tified scientific process operator at [facility] GLUCOSE [id number] 04:52:00* Test Item Value Reference Range Interpretation Comme nts GLUCOSE BEDSIDE (test code = GLUBED) 99 MG/DL 70-110 N Performed by cer tified scientific process operator at [facility] PLT [id number] 03:10:00* Test Item Value Reference Range Interpretation Comme nts PLATELET ESTIMATE (test code = PLTEST) 100-125 THOUSAND ADEQUATE CBC W/AUTO [id number] 03:10:00* Test Item Value Reference Range Interpretation [...] (test code = MDIFF) NO BASIC METABOLIC [id number] 02:40:00* Test Item Value Reference Range Interpretation [...] mg/dL 8.0-10.5 N COMMENTS: POD #1HEPATIC FUNCTION [id number] 02:40:00* Test Item Value Reference Range Interpretation [...] = ALKP) 46 IUnit/L 20-125 COMMENTS: POD #[id number] 02:40:00* Test Item Value Reference Range Interpretation Comme nts MAGNESIUM (test code = MAG) 2.28 mg/dL 1.80-2.40 COMMENTS: POD #1POC ARTERIAL BLOOD [id number] 02:19:00* Test Item Value Reference Range Interpretation Comme nts POC ARTERIAL BLOOD GAS PH (t est code = POCPHA) 7.304 7.35-7.45 L POC ARTERIAL BLOOD GAS PCO2 (test code = KBFWQE3D) 46.4 mmHg 35.0-45 H POC TCO2 ARTERIAL (test code = POCTCO2) 24.5 POC ARTERIAL BLOOD GAS PO2 ( test code = SAGUF2C) 64.1 mmHg 80-100.0 L POC HCO3 ARTERIAL (test code = BWDISQ5O) 23.0 MMOL/L 22.0-26.0 N POC BASE EXCESS (test code = POCBEA) -3.3 MMOL/L -4.0-4.0 N POC O2 SATURATION (test code = POCO2S) 89.7 % 90-100 L ABG DELIVERY (test code = SOLOMON) Room Air ABG SITE (test code = SITEA) Art Line BASIC METABOLIC [id number] 02:19:00* Test Item Value Reference Range Interpretation [...] = POCGLU) 125 MG/DL 70-110 H HEMOGLOBIN [id number] 02:19:00* Test Item Value Reference Range Interpretation Comme nts HEMOGLOBIN ABG (test code = HGB/ABG) 9.5 G/DL 12.5-16.9 L [id number] 02:19:00* Test Item Value Reference Range Interpretation Comme nts HEMATOCRIT (test code = HCT/ABG) 28 % 37.5-50.7 L POC LACTIC [id number] 02:19:00* Test Item Value Reference Range Interpretation Comme nts POC LACTIC ACID (test code = POCLAC) 0.9 mmol/l 0.9-1.7 N GLUCOSE [id number] 01:04:00* Test Item Value Reference Range Interpretation Comme nts GLUCOSE BEDSIDE (test code = GLUBED) 98 MG/DL 70-110 N Performed by cer tified scientific process operator at [facility] - XR CHEST 1 [id number] 00:00:00 [facility] 1940 Sex: M FAX: DIFFERENTIAL SPECIALIST, [place]: St: ADM FAX: Salazar Delarosa [phone] FAX: Pamela Camacho [phone] Name: BRENNAN AHN [facility] : 1940 Age/S: 82/M [address] [place] [address] Unit #: [id number] Loc: [address] [place] [address] Phys: Pamela Burnette Acct: [id number] Dis Date: Status: ADM IN PHONE #: [phone] Exam Date: 08/11/2022 0500 FAX #: [phone] Reason:Cardiac Surgery Post Op EXAMS: CPT CODE: [id number] XR CHEST 1 V 47956 PROCEDURE INFORMATION: Exam:XR Chest Exam date and time: 08/11/2022 4:58 [...] and signed by: Aniket Loredo M.D. CC: DIFFERENTIAL SPECIALIST; Salazar Dee MD; Pamela PINO Technologist: PEPE Bhakta) Trnscrd Date /Time/By: 08/11/2022 (37) : By: NayelyTDO Orig Print D/T: S: 08/11/2022 (2711) PAGE 1 Signed ReportPO ARTERIAL BLOOD [id number] 21:48:00* Test Item Value Reference Range Interpretation Comme nts POC ARTERIAL BLOOD GAS PH (t est code = POCPHA) 7.317 7.35-7.45 L POC ARTERIAL BLOOD GAS PCO2 (test code = ZATKEP6P) 45.1 mmHg 35.0-45 H POC TCO2 ARTERIAL (test code = POCTCO2) 24.4 POC ARTERIAL BLOOD GAS PO2 ( test code = VCEKY7X) 178.0 mmHg 80-100.0 H POC HCO3 ARTERIAL (test code = CDFJBI0D) 23.1 MMOL/L 22.0-26.0 N POC BASE EXCESS (test code = POCBEA) -3.1 MMOL/L -4.0-4.0 N POC O2 SATURATION (test code = POCO2S) 99.5 % 90-100 N ABG DELIVERY (test code = SOLOMON) NC ABG SITE (test code = SITEA) Art Line BASIC METABOLIC [id number] 21:48:00* Test Item Value Reference Range Interpretation [...] = POCGLU) 108 MG/DL 70-110 N HEMOGLOBIN [id number] 21:48:00* Test Item Value Reference Range Interpretation Comme nts HEMOGLOBIN ABG (test code = HGB/ABG) 8.9 G/DL 12.5-16.9 L [id number] 21:48:00* Test Item Value Reference Range Interpretation Comme nts HEMATOCRIT (test code = HCT/ABG) 26 % 37.5-50.7 L POC LACTIC [id number] 21:48:00* Test Item Value Reference Range Interpretation Comme nts POC LACTIC ACID (test code = POCLAC) 1.0 mmol/l 0.9-1.7 N GLUCOSE [id number] 20:36:00* Test Item Value Reference Range Interpretation Comme nts GLUCOSE BEDSIDE (test code = GLUBED) 103 MG/DL 70-110 N Performed by cer tified scientific process operator at [facility] POC ARTERIAL BLOOD [id number] 18:23:00* Test Item Value Reference Range Interpretation Comme nts POC ARTERIAL BLOOD GAS PH (t est code = POCPHA) 7.321 7.35-7.45 L POC ARTERIAL BLOOD GAS PCO2 (test code = CTYXRK5U) 46.1 mmHg 35.0-45 H POC TCO2 ARTERIAL (test code = POCTCO2) 25.3 POC ARTERIAL BLOOD GAS PO2 ( test code = MGXAM3F) 125.2 mmHg 80-100.0 H POC HCO3 ARTERIAL (test code = PEUYIQ7V) 23.9 MMOL/L 22.0-26.0 N POC BASE EXCESS (test code = POCBEA) -2.3 MMOL/L -4.0-4.0 N POC O2 SATURATION (test code = POCO2S) 98.6 % 90-100 N FIO2 (test code = FIO2A) 40 % PaO2/FiO2 (test code = UKN7RHT5) 313.00 mm/Hg ABG DELIVERY (test code = [...] code = SITEA) Art Line BASIC METABOLIC [id number] 18:23:00* Test Item Value Reference Range Interpretation [...] = POCGLU) 137 MG/DL 70-110 H HEMOGLOBIN [id number] 18:23:00* Test Item Value Reference Range Interpretation Comme nts HEMOGLOBIN ABG (test code = HGB/ABG) 9.5 G/DL 12.5-16.9 L [id number] 18:23:00* Test Item Value Reference Range Interpretation Comme nts HEMATOCRIT (test code = HCT/ABG) 28 % 37.5-50.7 L POC LACTIC [id number] 18:23:00* Test Item Value Reference Range Interpretation Comme nts POC LACTIC ACID (test code = POCLAC) 1.6 mmol/l 0.9-1.7 N POC ARTERIAL BLOOD [id number] 17:49:00* Test Item Value Reference Range Interpretation Comme nts POC ARTERIAL BLOOD GAS PH (t est code = POCPHA) 7.283 7.35-7.45 LL POC ARTERIAL BLOOD GAS PCO2 (test code = IYXFNA0A) 44.1 mmHg 35.0-45 N POC TCO2 ARTERIAL (test code = POCTCO2) 22.3 POC ARTERIAL BLOOD GAS PO2 ( test code = HKZLO2U) 140.9 mmHg 80-100.0 H POC HCO3 ARTERIAL (test code = SMGGBE6L) 21.0 MMOL/L 22.0-26.0 L POC BASE EXCESS (test code = POCBEA) -5.8 MMOL/L -4.0-4.0 L POC O2 SATURATION (test code = POCO2S) 98.9 % 90-100 N FIO2 (test code = FIO2A) 40 % PaO2/FiO2 (test code = IQP9ARS3) 352.25 mm/Hg ABG DELIVERY (test code = [...] code = SITEA) Art Line BASIC METABOLIC [id number] 17:49:00* Test Item Value Reference Range Interpretation [...] = POCGLU) 144 MG/DL 70-110 H HEMOGLOBIN [id number] 17:49:00* Test Item Value Reference Range Interpretation Comme nts HEMOGLOBIN ABG (test code = HGB/ABG) 10.3 G/DL 12.5-16.9 L [id number] 17:49:00* Test Item Value Reference Range Interpretation Comme nts HEMATOCRIT (test code = HCT/ABG) 30 % 37.5-50.7 L POC LACTIC [id number] 17:49:00* Test Item Value Reference Range Interpretation Comme nts POC LACTIC ACID (test code = POCLAC) 1.6 mmol/l 0.9-1.7 N GLUCOSE [id number] 17:11:00* Test Item Value Reference Range Interpretation Comme nts GLUCOSE BEDSIDE (test code = GLUBED) 147 MG/DL 70-110 H Performed by cer tified scientific process operator at [facility] [id number] 16:46:00* Test Item Value Reference Range Interpretation Comme nts MAGNESIUM (test code = MAG) 3.07 mg/dL 1.80-2.40 H COMMENTS: On arrivalBASIC METABOLIC [id number] 16:46:00* Test Item Value Reference Range Interpretation [...] 8.4 mg/dL 8.0-10.5 N COMMENTS: On arrivalPROTHROMBIN [id number] 16:43:00* Test Item Value Reference Range Interpretation [...] prevent recurrent infarct). COMMENTS: On arrivalTHROMBOPLASTIN TIME [id number] 16:43:00* Test Item Value Reference Range Interpretation Comme nts THROMBOPLASTIN TIME PARTIAL (test code = PTT) 32.6 Seconds 25.0-39.5 N Therapeutic Rang e: 50.4 - 88.3 Seconds Effective 09/17/2018 COMMENTS: [facility] [id number] 16:31:00* Test Item Value Reference Range Interpretation [...] (test code = MDIFF) NO COMMENTS: [facility] [id number] 16:03:00* Test Item Value Reference Range Interpretation Comme nts POC ARTERIAL BLOOD GAS PH (t est code = POCPHA) 7.324 7.35-7.45 L POC ARTERIAL BLOOD GAS PCO2 (test code = ICUPFS8P) 39.1 mmHg 35.0-45 N POC TCO2 ARTERIAL (test code = POCTCO2) 21.5 POC ARTERIAL BLOOD GAS PO2 ( test code = KAZRP7U) 200.1 mmHg 80-100.0 HH POC HCO3 ARTERIAL (test code = JTHMAR9Z) 20.3 MMOL/L 22.0-26.0 L POC BASE EXCESS (test code = POCBEA) -5.7 MMOL/L -4.0-4.0 L POC O2 SATURATION (test code = POCO2S) 99.6 % 90-100 N FIO2 (test code = FIO2A) 60 % PaO2/FiO2 (test code = TNM1QQS2) 333.50 mm/Hg ABG DELIVERY (test code = SOLOMON) Adult Vent ABG VENT MODE (test code = MODEA) AC ABG VENT RESP RATE (test cod e = RRA) 16 /MIN ABG TIDAL VOLUME (test code = TVA) 500 ml ABG PEEP (test code = PEEPA) 5 cmH2O ABG SITE (test code = SITEA) Art Line GERRY'S TEST (test code = ALLENS) N/A BASIC METABOLIC [id number] 16:03:00* Test Item Value Reference Range Interpretation [...] = POCGLU) 144 MG/DL 70-110 H HEMOGLOBIN [id number] 16:03:00* Test Item Value Reference Range Interpretation Comme nts HEMOGLOBIN ABG (test code = HGB/ABG) 10.5 G/DL 12.5-16.9 L [id number] 16:03:00* Test Item Value Reference Range Interpretation Comme nts HEMATOCRIT (test code = HCT/ABG) 31 % 37.5-50.7 L POC ARTERIAL BLOOD [id number] 15:11:00* Test Item Value Reference Range Interpretation Comme nts POC ARTERIAL BLOOD GAS PH (t est code = POCPHA) 7.328 7.35-7.45 L POC ARTERIAL BLOOD GAS PCO2 (test code = YTZRJK2F) 45.1 mmHg 35.0-45 H POC TCO2 ARTERIAL (test code = POCTCO2) 25.0 POC ARTERIAL BLOOD GAS PO2 ( test code = QJXDX7H) 433.9 mmHg 80-100.0 HH POC HCO3 ARTERIAL (test code = OKEDOU8C) 23.7 MMOL/L 22.0-26.0 N POC BASE EXCESS (test code = POCBEA) -2.4 MMOL/L -4.0-4.0 N POC O2 SATURATION (test code = POCO2S) 100.0 % 90-100 N BASIC METABOLIC [id number] 15:11:00* Test Item Value Reference Range Interpretation [...] = POCGLU) 122 MG/DL 70-110 H HEMOGLOBIN [id number] 15:11:00* Test Item Value Reference Range Interpretation Comme nts HEMOGLOBIN ABG (test code = HGB/ABG) 9.9 G/DL 12.5-16.9 L [id number] 15:11:00* Test Item Value Reference Range Interpretation Comme nts HEMATOCRIT (test code = HCT/ABG) 29 % 37.5-50.7 L POC LACTIC [id number] 15:11:00* Test Item Value Reference Range Interpretation Comme nts POC LACTIC ACID (test code = POCLAC) 0.8 mmol/l 0.9-1.7 L [id number] 15:09:00* Test Item Value Reference Range Interpretation Comme nts ACT-ISTAT (test code = ACTI) 131 SEC 74-137 N Performed by cer tified scientific process operator at [facility] [id number] 14:44:00* Test Item Value Reference Range Interpretation Comme nts ACT-ISTAT (test code = ACTI) 630 SEC 74-137 H Performed by cer tified scientific process operator at [facility] POC ARTERIAL BLOOD [id number] 14:35:00* Test Item Value Reference Range Interpretation Comme nts POC ARTERIAL BLOOD GAS PH (t est code = POCPHA) 7.438 7.35-7.45 N POC ARTERIAL BLOOD GAS PCO2 (test code = IPXUTS1K) 35.6 mmHg 35.0-45 N POC TCO2 ARTERIAL (test code = POCTCO2) 25.2 POC ARTERIAL BLOOD GAS PO2 ( test code = UYMUW2J) 407.3 mmHg 80-100.0 HH POC HCO3 ARTERIAL (test code = XEPYBE6U) 24.1 MMOL/L 22.0-26.0 N POC BASE EXCESS (test code = POCBEA) 0.1 MMOL/L -4.0-4.0 N POC O2 SATURATION (test code = POCO2S) 100.0 % 90-100 N BASIC METABOLIC [id number] 14:35:00* Test Item Value Reference Range Interpretation [...] = POCGLU) 119 MG/DL 70-110 H HEMOGLOBIN [id number] 14:35:00* Test Item Value Reference Range Interpretation Comme nts HEMOGLOBIN ABG (test code = HGB/ABG) 9.7 G/DL 12.5-16.9 L [id number] 14:35:00* Test Item Value Reference Range Interpretation Comme nts HEMATOCRIT (test code = HCT/ABG) 28 % 37.5-50.7 L POC LACTIC [id number] 14:35:00* Test Item Value Reference Range Interpretation Comme nts POC LACTIC ACID (test code = POCLAC) 0.7 mmol/l 0.9-1.7 L [id number] 14:16:00* Test Item Value Reference Range Interpretation Comme nts ACT-ISTAT (test code = ACTI) 786 SEC 74-137 H Performed by cer tified scientific process operator at [facility] POC ARTERIAL BLOOD [id number] 14:01:00* Test Item Value Reference Range Interpretation Comme nts POC ARTERIAL BLOOD GAS PH (t est code = POCPHA) 7.456 7.35-7.45 H POC ARTERIAL BLOOD GAS PCO2 (test code = QHULBW6R) 33.0 mmHg 35.0-45 L POC TCO2 ARTERIAL (test code = POCTCO2) 24.2 POC ARTERIAL BLOOD GAS PO2 ( test code = HEOUU1Q) 360.5 mmHg 80-100.0 HH POC HCO3 ARTERIAL (test code = NEATZN5L) 23.2 MMOL/L 22.0-26.0 N POC BASE EXCESS (test code = POCBEA) -0.3 MMOL/L -4.0-4.0 N POC O2 SATURATION (test code = POCO2S) 100.0 % 90-100 N BASIC METABOLIC [id number] 14:01:00* Test Item Value Reference Range Interpretation [...] = POCGLU) 122 MG/DL 70-110 H HEMOGLOBIN [id number] 14:01:00* Test Item Value Reference Range Interpretation Comme nts HEMOGLOBIN ABG (test code = HGB/ABG) 9.9 G/DL 12.5-16.9 L [id number] 14:01:00* Test Item Value Reference Range Interpretation Comme nts HEMATOCRIT (test code = HCT/ABG) 29 % 37.5-50.7 L POC LACTIC [id number] 14:01:00* Test Item Value Reference Range Interpretation Comme nts POC LACTIC ACID (test code = POCLAC) 0.8 mmol/l 0.9-1.7 L POC ARTERIAL BLOOD [id number] 13:32:00* Test Item Value Reference Range Interpretation Comme nts POC ARTERIAL BLOOD GAS PH (t est code = POCPHA) 7.430 7.35-7.45 N POC ARTERIAL BLOOD GAS PCO2 (test code = KUWJVJ3J) 35.7 mmHg 35.0-45 N POC TCO2 ARTERIAL (test code = POCTCO2) 24.8 POC ARTERIAL BLOOD GAS PO2 ( test code = SLKQF5M) 445.2 mmHg 80-100.0 HH POC HCO3 ARTERIAL (test code = IMCGLW4I) 23.7 MMOL/L 22.0-26.0 N POC BASE EXCESS (test code = POCBEA) -0.4 MMOL/L -4.0-4.0 N POC O2 SATURATION (test code = POCO2S) 100.0 % 90-100 N BASIC METABOLIC [id number] 13:32:00* Test Item Value Reference Range Interpretation [...] = POCGLU) 119 MG/DL 70-110 H HEMOGLOBIN [id number] 13:32:00* Test Item Value Reference Range Interpretation Comme nts HEMOGLOBIN ABG (test code = HGB/ABG) 10.7 G/DL 12.5-16.9 L [id number] 13:32:00* Test Item Value Reference Range Interpretation Comme nts HEMATOCRIT (test code = HCT/ABG) 31 % 37.5-50.7 L POC LACTIC [id number] 13:32:00* Test Item Value Reference Range Interpretation Comme nts POC LACTIC ACID (test code = POCLAC) 0.9 mmol/l 0.9-1.7 N [id number] 13:27:00* Test Item Value Reference Range Interpretation Comme nts ACT-ISTAT (test code = ACTI) > 1000 SEC 74-137 H Performed by cer tified scientific process operator at [facility] POC ARTERIAL BLOOD [id number] 13:05:00* Test Item Value Reference Range Interpretation Comme nts POC ARTERIAL BLOOD GAS PH (t est code = POCPHA) 7.366 7.35-7.45 N POC ARTERIAL BLOOD GAS PCO2 (test code = [id number]) 45.8 mmHg 35.0-45 H POC TCO2 ARTERIAL (test code = POCTCO2) 27.6 POC ARTERIAL BLOOD GAS PO2 ( test code = FQEYK6N) 529.4 mmHg 80-100.0 HH POC HCO3 ARTERIAL (test code = KTQFDF1O) 26.2 MMOL/L 22.0-26.0 H POC BASE EXCESS (test code = POCBEA) 0.5 MMOL/L -4.0-4.0 N POC O2 SATURATION (test code = POCO2S) 100.0 % 90-100 N BASIC METABOLIC [id number] 13:05:00* Test Item Value Reference Range Interpretation [...] = POCGLU) 117 MG/DL 70-110 H HEMOGLOBIN [id number] 13:05:00* Test Item Value Reference Range Interpretation Comme nts HEMOGLOBIN ABG (test code = HGB/ABG) 11.7 G/DL 12.5-16.9 L [id number] 13:05:00* Test Item Value Reference Range Interpretation Comme nts HEMATOCRIT (test code = HCT/ABG) 34 % 37.5-50.7 L POC LACTIC [id number] 13:05:00* Test Item Value Reference Range Interpretation Comme nts POC LACTIC ACID (test code = POCLAC) < 0.3 mmol/l 0.9-1.7 L [id number] 12:53:00* Test Item Value Reference Range Interpretation Comme nts ACT-ISTAT (test code = ACTI) 847 SEC 74-137 H Performed by cer tified scientific process operator at [facility] POC ARTERIAL BLOOD [id number] 12:45:00* Test Item Value Reference Range Interpretation Comme nts POC ARTERIAL BLOOD GAS PH (t est code = POCPHA) 7.311 7.35-7.45 L POC ARTERIAL BLOOD GAS PCO2 (test code = UZEQOH7J) 48.3 mmHg 35.0-45 H POC TCO2 ARTERIAL (test code = POCTCO2) 25.8 POC ARTERIAL BLOOD GAS PO2 ( test code = ZUILC9V) 512.0 mmHg 80-100.0 HH POC HCO3 ARTERIAL (test code = QPHBXR8S) 24.4 MMOL/L 22.0-26.0 N POC BASE EXCESS (test code = POCBEA) -2.4 MMOL/L -4.0-4.0 N POC O2 SATURATION (test code = POCO2S) 100.0 % 90-100 N BASIC METABOLIC [id number] 12:45:00* Test Item Value Reference Range Interpretation [...] = POCGLU) 116 MG/DL 70-110 H HEMOGLOBIN [id number] 12:45:00* Test Item Value Reference Range Interpretation Comme nts HEMOGLOBIN ABG (test code = HGB/ABG) 15.4 G/DL 12.5-16.9 N [id number] 12:45:00* Test Item Value Reference Range Interpretation Comme nts HEMATOCRIT (test code = HCT/ABG) 45 % 37.5-50.7 N POC LACTIC [id number] 12:45:00* Test Item Value Reference Range Interpretation Comme nts POC LACTIC ACID (test code = POCLAC) < 0.3 mmol/l 0.9-1.7 L POC ARTERIAL BLOOD [id number] 11:11:00* Test Item Value Reference Range Interpretation Comme nts POC ARTERIAL BLOOD GAS PH (t est code = POCPHA) 7.370 7.35-7.45 N POC ARTERIAL BLOOD GAS PCO2 (test code = DHOASO3E) 46.6 mmHg 35.0-45 H POC TCO2 ARTERIAL (test code = POCTCO2) 28.6 POC ARTERIAL BLOOD GAS PO2 ( test code = RMQWO9O) 240.7 mmHg 80-100.0 HH POC HCO3 ARTERIAL (test code = BGBTPG3O) 27.1 MMOL/L 22.0-26.0 H POC BASE EXCESS (test code = POCBEA) 1.7 MMOL/L -4.0-4.0 N POC O2 SATURATION (test code = POCO2S) 99.8 % 90-100 N ABG DELIVERY (test code = SOLOMON) [employer] ABG TEMPERATURE (test code = TEMPA) 97.5 F ABG SITE (test code = SITEA) Art Line BASIC METABOLIC [id number] 11:11:00* Test Item Value Reference Range Interpretation [...] = POCGLU) 97 MG/DL 70-110 N HEMOGLOBIN [id number] 11:11:00* Test Item Value Reference Range Interpretation Comme nts HEMOGLOBIN ABG (test code = HGB/ABG) 17.8 G/DL 12.5-16.9 H [id number] 11:11:00* Test Item Value Reference Range Interpretation Comme nts HEMATOCRIT (test code = HCT/ABG) 52 % 37.5-50.7 H POC LACTIC [id number] 11:11:00* Test Item Value Reference Range Interpretation Comme nts POC LACTIC ACID (test code = POCLAC) 0.5 mmol/l 0.9-1.7 L [id number] 01:14:00* Test Item Value Reference Range Interpretation Comme nts MAGNESIUM (test code = MAG) 1.77 mg/dL 1.80-2.40 L BASIC METABOLIC [id number] 01:07:00* Test Item Value Reference Range Interpretation [...] CA) 9.5 mg/dL 8.0-10.5 N CBC W/AUTO [id number] 00:59:00* Test Item Value Reference Range Interpretation [...] (test c ode = MDIFF) NO PROTHROMBIN [id number] 00:59:00* Test Item Value Reference Range Interpretation [...] recurrent infarct). UA RFLX MICR CULT IF [id number] 00:56:00* Test Item Value Reference Range Interpretation [...] PainSpecimen Description: CLEAN CATCH- XR CHEST 1 [id number] 00:00:00 [facility] : 1940 Sex: M FAX: DIFFERENTIAL SPECIALIST, [place]: St: ADM FAX: Gio DeeShirleynan [phone] FAX: Pamela Camacho [phone] Name: BRENNAN AHN [facility] : 1940 Age/S: 82/M [address] [place] [address] Unit #: [id number] Loc: G.2202 [place] [address] Phys: Pamela Burnette Acct: [id number] Dis Date: Status: ADM IN PHONE #: [phone] Exam Date: 08/10/2022 1551 FAX #: [phone] Reason:Cardiac Surgery Post Op EXAMS: CPT CODE: [id number] XR CHEST 1 V 40103 PROCEDURE INFORMATION: Exam: XR Chest Exam date [...] and signed by: Morteza Sullivan M.D. CC: DIFFERENTIAL SPECIALIST; Salazar Dee MD; Pamela PINO Technologist: RT Nicho(R) Trnscrd Date/Time/By: 08/10/2022 (1834) : By: [email or web address] Orig Print D/T: S: (1834) PAGE 1 Signed ReportCOVID 19 Asymptomatic IH [id number] 22:40:00* Test Item Value Reference Range Interpretation [...] moderate, high or waivedcomplexity tests. CBC W/AUTO [id number] 18:50:00* Test Item Value Reference Range Interpretation [...] c ode = MDIFF) NO B-TYPE NATRIURETIC [id number] 18:46:00* Test Item Value Reference Range Interpretation Comme nts B-TYPE NATRIURETIC PEPTIDE ( test code = BNP) 266.0 PG/ML 0-100 H COMPREHENSIVE METABOLIC [id number] 18:28:00* Test Item Value Reference Range Interpretation [...] Item Value Reference Range Interpretation Comme nts TRIGLYCERIDES (test code = TRIG) 158 mg/dL [...] = LDL) 199.0 mg/dL 0-100 H <100 VHOFVYJ36 0-129 NEAR OPTIMAL/ABOVE [id number] HIGH>WS=915 VERY HIGH*Guidelines provided by the National Cholesterol EducationProgram Adult Treatment Panel III HGBA1C%2022-08-09 18:25:00* Test Item Value Reference Range Interpretation Comme nts HGBA1C% (test code = HGBA1C%) 5.2 %A1C 4.8-6.0 N THROMBOPLASTIN TIME [id number] 18:23:00* Test Item Value Reference Range Interpretation Comme nts THROMBOPLASTIN TIME PARTIAL (test code = PTT) 36.2 Seconds 25.0-39.5 N Therapeutic Rang e: 50.4 - 88.3 Seconds Effective 09/17/2018 PROTHROMBIN [id number] 18:23:00* Test Item Value Reference Range Interpretation [...] prevent recurrent infarct). 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 IMPRESSION: Left basilar opacities mayrepresent atelectasis and/or consolidation. at 1903 Reported and signed by: Eric Edgar M.D. CC: DIFFERENTIAL SPECIALIST; Salazar Dee MD; Pamela PINO Technologist: RT Taryn(R) Trnscrd Date/Time/By: 08/09/2022 (1902) : By: [email or web address] Orig Print D/T: S: 08/09/2022 (1903) PAGE 1 Signed Report- DUP VEIN [id number] 00:00:00 [facility] : 1940 Sex: M Name: BRENNAN AHN [facility] : 1940 Age/S: 82 / M [address] [place] [address] Unit #: [id number] Loc: [place] [address] Phys: Pamela Burnette Acct: [id number] Dis Date: Status: ADM IN PHONE #: [phone] Exam Date: 08/09/2022 1750 FAX #: [phone] Reason: Bilateral Vein Bilateral mapping EXAMS: CPT CODE: [id number] DUP VEIN ANCA 37878 PROCEDURE INFORMATION: Exam:US Duplex Lower Extremity Veins; Vein mapping Exam date and time: 08/09/2022 5:33 PM Age: 82 years old Clinical indication: Screening exam; Pre op; Additional info: Bilateral vein bilateral mapping TECHNIQUE: Imaging protocol: Real-time duplex ultrasound of the extremities with 2-D guardado scale, colorDoppler flow and spectral waveform analysis including responses to compression and other maneuvers (when performed) with image documentation. Complete exam focused on the bilateral lower extremity veins for vein mapping. COMPARISON: No relevant prior studies available. FINDINGS: Right superficial veins: Normal Doppler waveforms. Normal compressibility. Greater saphenous vein is patent. Right great er saphenous vein-upper thigh: 3.3 mm Right greater [...] saphenous vein-upper le.7 mm Left greater saphenous vein-midle.4 mm Left greater saphenous vein-lower le.7 mm Soft tissues: Unremarkable. IMPRESSION: Greater saphenous vein is patent. Vein mapping as described. at 1858 Reported and signed by: Eric Edgar M.D. CC: DIFFERENTIAL SPECIALIST; Salazar Dee MD; Pamela PINO Technologist: Kavita Vera Trnscb Date/Time: (1857) [email or web address] Orig Print D/T: S: 08/09/2022 (1857) Probe: PAGE 1 Signed Report- DUP EXTRACRANIAL [id number] 00:00:00 [facility] : 1940 Sex: M Name: BRENNAN AHN [facility] Gadiel Montemayor : 1940 Age/S: 82 / M [address] [place] [address] Blvd Unit #: [id number] Loc: [place] [address] Phys: Pamela Burnette Acct: [id number] Dis Date: Status: ADM IN PHONE #: [phone] Exam Date: 08/09/2022 175 FAX #: [phone] Reason: Pre cabg EXAMS: CPT CODE: [id number] DUP EXTRACRANIAL ANCA 77924 PROCEDURE INFORMATION: Exam: US Duplex Bilateral Extracranial Arteries, Carotid Arteries Exam date and time: 08/09/2022 5:25 PM Age: 82 years old Clinical indication: Screening exam; Patient HX: Pre op; Additional info: Pre cabg TECHNIQUE: Imaging protocol: Real-time Duplex ultrasound scan of the bilateral carotid and vertebral arteries combininggray scale, color Doppler and spectral waveform analysis. Bilateral exam. Exam focused on the carotid arteries. COMPARISON: CT CHEST W/O CONTRAST 08/09/2022 5:11 PM FINDINGS: Right common carotid artery: Plaque formation. No occlusion or stenosis. Waveforms are normal. Right internal carotid artery: Plaque formation. No occlusion or stenosis. Waveforms are normal. Right ICA/CCA ratio: Within normallimits. Right external carotid artery: No stenosis in the origin. Right vertebral artery: Unremarkable. Antegrade flow. Left common carotid artery: Plaque formation. No occlusion or stenosis. Waveforms are normal. Left internal carotid artery: Plaque formation. No occlusion or stenosis. Waveforms are normal. Left ICA/CCA ratio: Within normal limits. Left external carotid artery: No stenosis in the origin. Left vertebral artery: Unremarkable. Antegrade flow. IMPRESSION: No carotid arterial stenosis. REFERENCES: SRU CRITERIA. The degree of internal carotid artery stenosis is based on criteria defined by the Society of Radiologists in Ultrasound (SRU). Normal is no stenosis. Mild is less than 5 0% stenosis. Moderate is 50-69% stenosis. Severe is greater than 69% stenosis to near occlusion. Near occlusion is a markedly narrowed lumen. Total occlusion is no detectable patent lumen. at 1916 Reported and signed by: Aniket Loredo M.D. PAGE 1 Signed Report (CONTINUED) Name: BRENNAN AHN [facility] : 1940 Age/S: 82 / M [address] [place], [place] [address]vd Unit #: [id number] Loc: [place] [address] Phys: Pamela Burnette Acct: [id number] Dis Date: Status: ADM IN PHONE #: [phone] Exam Date: 08/09/20221749 FAX #: [phone] Reason: Pre cabg EXAMS: CPT CODE: [id number] DUP EXTRACRANIAL ANCA 12722 (Continued) CC: DIFFERENTIAL SPECIALIST; Salazar Dee MD; Pamela PINO Technologist: Kavita Vera [facility] Date/Time: 08/09/2022 (1916) [email or web address] Orig Print D/T: S: 08/09/2022 (1916) Probe: PAGE 2 Signed Report- CT CHEST W/O [id number] 00:00:00 [facility] : 1940 Sex: M Name: BRENNAN AHN [facility] : 1940 Age/S: 82 / M [address] [place] [address] Unit #: [id number] Loc: [place] [address] Phys: Pamela Burnette Acct: [id number] Dis Date: Status: ADM IN PHONE #: [phone] Exam Date: 08/09/2022 1715 FAX #: [phone] Reason: Pre cabgEXAMS: CPT CODE: [id number] CT CHEST W/O CONTRAST 17907 PROCEDURE INFORMATION: Exam: CT Chest Without Contrast; [...] Old granulomatous disease in the chest with subpleuralreticulonodular change along the apicoposterior segment of the left upper lobe (2, 32-37). Minimal subpleural platelike atelectasis also noted with no edema or lobar consolidation. Pleural spaces: Nopneumothorax. No pleural effusion. Heart: Cardiomegaly with multichamber enlargement and severe multivessel coronary atherosclerosis in keeping with known history. No pericardial thickening or effusion. Lymph nodes: No adenopathy. Vasculature: Ectatic, nonaneurysmal aortic root measuring up to 37 mm in transverse diameter. Sinotubular junction and mid ascending aorta measures roughly 29 and 27 mmin transverse diameter, respectively. Moderate to severe transverse aortic calcification seen with normal caliber descending and upper abdominal aorta. Severe abdominal aortic calcification noted along the visualized segments. Kidneys and ureters: Hypodense bilateral renal cysts measuring up to 4.7and 4.9 cm in maximum diameter on the right and left side, respectively. The former shows evidence of minimal lateral capsule calcification. Stomach and bowel: Moderate volume colonic fecal material d iffusely. Intraperitoneal space: No acute upper abdominal findings along the visualized segments. PAGE 1 Signed Report (CONTINUED) Name: MARITZABRENNAN GERRY [facility] : 1940 Age/S: 82 / M [address] [place] [address] Blvd Unit #: [id number] Loc: [place] [address] Phys: Pamela Burnette Acct: [id number] Dis Date: Status: ADM IN PHONE #: [phone] Exam Date: 08/09/2022 1715 FAX #: [phone] Reason: Pre cabg EXAMS: CPT CODE: [id number] CT CHEST W/O CONTRAST 14322 (Continued) Bones/joints: Severe thoracic spondylosis without destructive bone lesions. Soft tissues: Unremarkable. IMPRESSION: 1. Ectatic, nonaneurysmal aortic root (37 mm) with whbd-al-iobghrtm calcification. 2. Remaining thoracoabdominal aorta is normal in caliber. 3. Significant calcification along the ascending aorta to preclude coronary graft implantation given history. 4. Cardiomegaly with severe multivessel coronary atherosclerosis. 5. Old granulomatous disease and chronic active atypical infection witha tree-in-bud configuration. 6. Partially imaged bilateral renal cysts, incompletely characterized.This can be followed with routine non emergent ultrasound further characterization, if indicated. COMMENTS: Consistent with the [employer]'s Incidental Findings Committee white paper (J Am Parminder Radiol 2018): Any incidental renal lesion less than 1 cm or classified as too small to characterize, or any incidental cystic renal lesion characterized as simple- appearing, is likely benign. No follow-up imaging is recommended for these lesions per consensus recommendations based on imaging criteria. at 1925 Reported and signed by: Brandon Beth M.D. CC: DIFFERENTIAL SPECIALIST; Salazar Dee MD; Pamela PINO Technologist:RT Juan(R)(CT) CTDI: DLP: Trnscb Date/Time: 08/09/2022 (1924) [email or web address] Orig Print D/T: S: 08/09/2022 (1925) PAGE 2 Signed Report History and Physical Notes Date/Time Note Provider Source 2023-12-19 09:05:23 H&P Update H&P was reviewed and the patient was examined and there was no change in the patient's condition. [facility] 2023-06-06 09:25:40 H&P Update H&P was reviewed and the patient was examined and there was no change in the patient's condition. [facility] Notes Date/Time Note Provider Source 2023-09-06 10:44:46 ANIYAH 06/05/23 NOV not scheduled Per encounter 06/26/23 pt POA requested pt to stay on Rivastigmine 1.5mg instead of increasing to 3mg and would notify us if/when they wanted pt to increase dose. Requested Prescriptions Signed Prescriptions Disp Refills rivastigmine tartrate 1.5 mg capsule 60 capsule 5 Sig: Take 1 capsule by mouth every morning and evening. Authorizing Provider: ELAINA MARQUEZ Ordering User: MARY HINDS [facility] 2023-09-06 10:04:03 Copied from [facility] #[id number]. Topic: Clinical - Order >> Sep 06, 2023 10:03 AM Patient Cartridge Loading Operator wrote: Patient needing refill rivastigmine tartrate 1.5 mg capsule sent into pharmacy. Please advise [facility] [address] [facility] Martha Lowe [facility] 2023-07-03 08:44:47 Requested Prescriptions Refused Prescriptions Disp Refills RIVASTIGMINE TARTRATE 1.5 mg capsule [Pharmacy Med Name: RIVASTIGMINE 1.5MG CAPSULE] 60 capsule 0 Sig: TAKE 1 CAPSULE BY MOUTH EVERY MORNING AND EVENING. Refused By: MARY HINDS Reason for Refusal: Patient has requested refill too soon Refill sent 06/27/23, 30 day supply with 1 refill. MIGUEL Hinds LVN [facility] 2023-06-27 08:17:45 Spoke with pt Edwige RENE, who stated pt had diarrhea in the beginning of starting Rivastigmine but it has since resolved. Reports pt has recently had Covid and has been experiencing increased confusion. She reports pt started Seroquel and Rivastigmine around the same time so was unsure if it was one of the medications or if it was due to pt having Covid. Discussed with her that pt who have memory loss/dementia/alzheimer's who experience an illness can at times have a set back with confusion/memory loss before they return to baseline. She verbalized understanding and agreed. She stated she would like pt to continue on Rivastigmine 1.5mg bid for one additional month before increasing the medication. She stated they were unsure if they would make upcoming appointment due to pt still not being fully recovered from Covid but would update us in the next month if she felt medication should be increased. MIGUEL Hinds LVN [facility] 2023-06-26 14:53:04 Brennan Ahn is a 83 year old male Gabby with [facility] is calling requesting refill of rx rivastigmine 1.5 mg capsule (EXELON) Please advise [facility] 2023-06-12 11:43:06 Requested Prescriptions Refused Prescriptions Disp Refills RIVASTIGMINE TARTRATE 1.5 mg capsule [Pharmacy Med Name: RIVASTIGMINE 1.5MG CAPSULE] 60 capsule 11 Sig: TAKE 1 CAPSULE BY MOUTH EVERY MORNING AND EVENING. Refused By: MARY HINDS Reason for Refusal: Refill not appropriate Dose expected to be increased at NOV 07/09/23. ANIYAH 06/05/23 MIGUEL Hinds LVN [facility] 2023-05-30 12:56:46 Images from the original note were not included. Pre-op call completed in two calls, one with patient's daughter and one with nurse Louisa at [facility] in [place], [place]. Your procedure is at [facility] on 06/06/22. The address is [address] [place] [address], [address]. [facility]] nursing staff will call you the workday before your procedure to let you know what time to arrive.On the day of your procedure, please go inside that door and check in at the desk. Please note: You may not travel home alone and that includes in a taxi or by bus. We must speak to your Responsible Adult (who will be picking you up) the morning of your procedure, before the start of your procedure. This person must be an adult over the age of 18 years of age. Do not eat any solid food after midnight the night before surgery. You may have sips of clear liquids such as water, gatorade, and sprite up until two hours before your scheduled procedure. You may take your medications with a sip of water as directed by physician. Anticoagulants will be per physician guidance. Medication Note(s)/Instructions:Will continue ASA and Plavix per MD instruction. Pending screening, we may test for COVID. If a patient tests positive, their cases are cancelled and/or rescheduled. COVID SCREENING NOTE: Denies COVID symptoms, no testing required. Additional requests, questions, concerns:None at this time. CB number provided to both daughter and memory care facility. Patient verbalized understanding of pre-op instructions and voiced no further questions at this time. MIGUEL Walker RN [facility] 2022-09-02 05:10:00 [facility] ([facility]) Rehab Discharge Summary REPORT#:[id number] REPORT STATUS: Signed DATE:09/02/22 TIME: 509 PATIENT: BRENNAN AHN UNIT #: [id number] [facility] AGE: 82 SEX: M ATTEND: Arthur Fuentes MD ADM AUTHOR: Florentino Jimenez * ALL edits or amendments must be made on the electronic/computer document * Objective Physical Exam VS: Last Documented: Result Date Time Pulse Ox 96 09/01 2332 B/P 138/73 09/01 2332 B/P Mean 94.4 09/01 2332 O2 Delivery Room air 09/01 2332 Temp 98.1 09/01 2332 Pulse 66 09/01 2332 Resp 18 09/01 2332 FiO2 21 08/29 0229 PATIENT WEIGHT: Weight (lb): 221 Weight (oz): 9.03 Weight (kg): 100.500 General appearance: alert, awake Psych: alert, normal affect HEENT: anicteric, mucosal membranes moist, pupils reactive to light, sclera clear Neck: non-tender, supple, no JVD Cardiovascular: irregular rhythm, S1/S2, cap refill wnl, pulses intact Respiratory: diminished breath sounds, on oxygen, aerating well Abdomen: bowel sounds present, non-distended, soft, non-tender Skin: dry, normal temperature, no rash, bruising R thigh, mild L thigh, BUE, R hand Sl tender/edema, sternum incision RSH site CDI, bruising L chest wall, mildly tender, R elbow abrasion Musculoskeletal - general: Musculoskeletal - general: OA changes, normal tone, no swelling, Moves all 4 exts AG, calves NT, no cords, Homans neg Neuro/GATE GUARD: alert, CNII-XII intact, normal speech, no motor deficits, no sensory deficits Functional Progress Functional progress: The data set between the solid lines has been imported from multidisciplinary team documentation. __ FUNCTIONAL ACTIVITY ADMISSION STATUS DISCHARGE STATUS Toilet [...] (88) Partial/moderate (3) Four steps Supervision/touch (4) __ General Information General Information Date of admission: Date of admission: 08/16/22 Discharge date: 09/02/22 Admission diagnosis: Multivessel CAD 08/10: S/p CABG x5-Dr. Josephine Morales s/p a ARISTEO Endoscopic RGSV harvest 08/16: Echo-EF 50-54%, small pericardial effusion Small bilateral pleural effusions. Muscle weakness Unsteady gait Alzheimer's dementia Postoperative anemia LADARIUS on CKD HTN Impairment in self-care, ADLs and functional mobility Discharge diagnosis: Multivessel CAD 08/10: S/p CABG x5-Dr. Josephine Schwartzfib s/p a ARISTEO Endoscopic RGSV harvest 08/16: Echo-EF 50-54%, small pericardial effusion Small bilateral pleural effusions. Muscle weakness Unsteady gait Alzheimer's dementia (as per family), poor memory Postoperative anemia LADARIUS on CKD HTN Impairment in self-care, ADLs and functional mobility Hospital course: 82-year-old male with PMH of Alzheimer's dementia, CKD, HTN, atrial fibrillation , history of SVT/ablation who was transferred to [facility] after being found to have multivessel coronary artery disease. Patient initially with was at home and developed chest pains. He was brought to [facility] and underwent left heart cath which revealed [...] of function was independent. Currently patient has generalized weakness. He lives by himself in a one-step up house. He denies any shortness of breath, nausea, vomiting, fever, chills. Denies chest pain. He is complaining of some constipation. He tells me that is in the process of selling his home. Preadmission screen was completed. Patient admitted to IRF. While here patient made fair to good functional progress. Confusion was main barrier. He had a fall and required sitter for monitoring. Patient is unsafe to go home and will be discharged to SNF today. Consultants: cardiology, cardiovascular surgery, hospitalist, nephrology Pt. condition on discharge: improved Allergies: Allergies: Qztdfkz-EBA-OeO Reductase Inhibitor (Coded, Severe, UNKNOWN, 08/16/22) Discharge Instructions Discharge Instructions Additional Discharge Routines: PCP Follow-Up, Bridge Manager Follow-Up Diet: Cardiac Activity: Sternal Precautions Prescriptions: on chart Discharge management: greater than 30 mins at 2124 RPT #:[id number] END OF REPORT [facility] 2022-09-01 14:12:00 [facility] Internal Medicine Prog. Note REPORT#:[id number] REPORT STATUS: Signed DATE:09/01/22 TIME: 1411 PATIENT: BRENNAN AHN UNIT #: [id number] RO[facility]ED: [facility] : [facility] AGE: 82 SEX: M ATTEND: Arthur Fuentes MD ADM AUTHOR: Devin Fox DO * ALL edits or amendments must be made on the electronic/computer document * Subjective Chief complaint: pt s c/o. Review of Systems All systems rev neg: except as marked Objective General VS/I O: Vital Signs Date Temp Pulse Resp B/P B/P Mean Pulse Ox FiO2 08/31-09/01 98.1-98.4 69-95 18 118-179/63-90 81.4-119.7 86-99 Last Documented: Result Date Time Pulse Ox 86 09/01 658 B/P 142/75 09/01 0559 B/P Mean 97.3 09/01 0659 O2 Delivery Room air 09/01 658 Temp 98.1 09/01 0659 Pulse 95 09/01 0659 Resp 18 09/01 0659 FiO2 21 08/29 0229 24 hour I O ending at 0700: 09/01 0700 08/31 1900 Intake Total 120 720 Output Total Balance 120 720 Intake, Oral 120 720 PATIENT WEIGHT: Weight (lb): 221 Weight (oz): 9.03 Weight (kg): 100.500 Medications: Active Meds + DC'd Last 24 Hrs Ipratropium [place] (ATROVENT) 500 MCG RTQ6H WA INH Amiodarone [...] 650 MG Q4H PRN PRN PO Ipratropium [place] (ATROVENT) 500 MCG RTQ2H PRN PRN INH Melatonin (Melatonin) 6 MG BEDTIME PRN PO Ondansetron HCl (ZOFRAN ODT) 4 MG TID PRN PRN SL Physical Exam General appearance: alert, awake, oriented Head/Eyes: EOMI, PERRLA Neck: non-tender, no JVD Cardiovascular: normal heart sounds, regular rate rhythm Respiratory: aerating well, clear to auscultation Abdomen: non-tender, normal bowel sounds Extremities: Extremities: no cyanosis, no edema Neuro/GATE GUARD: alert, oriented x 3, CNII-XII intact Skin: ecchymosis (l chest) Diagnosis, Assessment Plan Hospital course to date: 82-year-old male with past medical history of hypertension, atrial fibrillation, supraventricular tachycardia status post ablation who was admitted with reports of multivessel coronary artery disease found on a cardiac catheterization done at [facility]. Patient was transferred to [facility] for CABG. He underwent [id number]. 1. Coronary artery disease -Status post CABG x5, ALAA, PVI -Continue metoprolol, Plavix, aspirin 2. Atrial fibrillation -Continue po amiodarone for rate control - taper AMIO per cards -Continue metoprolol -Monitor and review telemetry 3. Debility/ -.-PT/OT - PMR - Inpt Rehab 4. ARF/ckd - Trend cr 1.3-1.9-2.2-2.0-1.9-2.2-1.8 - post op, post lasix therefore likely pre-renal - baseline CKD is suspected - nephro consulted - US RENAL- BILAT Cysts 5. anemia - acute, post op expecteed - monitor and transfuse if hg <7 - cont po Iron - Trend Hg 9.1-9.7 6. Delirium/ dementia -Likely due to sundowning/dementia -Monitor closely -Patient is neurologically intact 7. FALLs - 08/22, 08/24 - ct head neg - R shoulder Xr neg - R elbow pain- mild- pain meds prn - sitter at bedside prn 8. Dysuria - UA neg - on pyridium prn - consider Urologist consult 9. Orthostatic hypotension - cont Midodrine and adjust up - check orthostatic VS- mild orthostasis 10. RIB fx - 08/24 Left RIb xr -HEALING L 7th and 8th rib fractures- unknown chronicity - ribs fractures show "healing" ALREADY d/w RN and Pt and son in details pt awaits SNF transfer total time spent 35mins Consultants: cardiology, cardiovascular surgery, hospitalist, nephrology Quality: Gen Med Crit Care Current Medications Current medication review: I attest that the foregoing medication list in the medical record is true, accurate, and complete to the best of my knowledge. Advanced Care Plan 65 or Older Discussed with: patient Discussion included: code status at 0917 RPT #:[id number] END OF REPORT [facility] 2022-09-01 12:47:00 [facility] ([facility]) Cardiology Progress Note REPORT#:[id number] REPORT STATUS: Signed DATE:09/01/22 TIME: 1247 PATIENT: BRENNAN AHN UNIT #: [id number] ROOM/BED: [place] [address] : 42 AGE: 82 SEX: M ATTEND: Arthur Fuentes MD ADM AUTHOR: Logan Calix MD * ALL edits or amendments must be made on the electronic/computer document * Subjective Free Text Subj Notes Free Text Subj Notes: Doing okay, have a sitter at the bedside Objective General VS/I O: 24 hour I O ending at 0700: 09/01 0700 08/31 1900 Intake Total 120 720 Output Total Balance 120 720 Intake, Oral 120 720 Vital Signs: Date Time Temp Pulse Resp B/P B/P Pulse O2 O2 Flow FiO2 Mean Ox Delivery Rate 09/01 0659 98.1 95 18 142/75 97.3 86 Room air 08/31 2351 98.1 73 18 131/70 90.3 94 08/31 2025 99 Room air 08/31 190 98.4 69 18 118/63 81.4 95 08/31 1537 98.2 74 18 179/90 119.7 96 Room air PATIENT WEIGHT: Weight (lb): 221 Weight (oz): 9.03 Weight (kg): 100.500 Medications: Active Meds + DC'd Last 24 Hrs Ipratropium [place] (ATROVENT) 500 MCG RTQ6H WA INH Amiodarone [...] 650 MG Q4H PRN PRN PO Ipratropium [place] (ATROVENT) 500 MCG RTQ2H PRN PRN INH Melatonin (Melatonin) 6 MG BEDTIME PRN PO Ondansetron HCl (ZOFRAN ODT) 4 MG TID PRN PRN SL Physical Exam General appearance: alert, awake, oriented Neck: non-tender, no JVD Cardiovascular: CV assessment: irregularly irregular Respiratory: decreased breath sounds, no distress Abdomen: soft, non-tender, normal bowel sounds, no distention Genitourinary: no flank pain, no urinary catheter Lower extremity: LE assessment: no edema Musculoskeletal: normal inspection Neuro/GATE GUARD: alert Skin: dry Psychiatry: normal affect, normal mood Diagnosis, Assessment Plan Free Text DxA P Notes Free Text DxA P Notes: 82 YO male with MHX of Afib, HTN, HLD, CAD who is s/p 5 vessel CABG and PVI and ALAA. The patient is transferred to [facility] for inpatient rehabilitation. We are consulted for continuity of cardiac-related care. 1. CAD s/p CABG x 5 (NGUYEN-LAD, SVG-Olga Lidia, SVG-OM, SVG-LPLA, SVG-PDA) continue asa, BB, plavix, Zetia echo 08/12- LVEF 50-54%, left pleural effusion intolerant of statin, will consider nonstatin med such as Repatha or Nexletol outpatient 2. A-fib: Paroxysmal - rate controlled s/p PVI and ARISTEO amputation decrease amiodarone to 200 mg daily - DC prior to discharge Continue low-dose metoprolol 12.5 mg BID no need for AC since left atrial appendage was removed during CABG 3. HTN BP stable on midodrine Continue low-dose metoprolol 12.5 mg BID 4. LADARIUS nephrology following 5. Dizziness 2/2 orthostatic hypotension midodrine for orthostatic hypotension compression stocking and abdominal binder before OOB dizziness resolved 6. s/p Fall 08/22 and 08/24 CT head no acute finding R Elbow XR - no fracture L rib XR -healing fractures of the left lateral seventh and eighth ribs continue supportive care outpatient follow-up with Dr. Sanchez Case management assisting with discharge placement. at 1402 RPT #:[id number] END OF REPORT [facility] 2022-09-01 05:03:00 [facility] Rehab Progress Note REPORT#:[id number] REPORT STATUS: Signed DATE:09/01/22 TIME: 502 PATIENT: BRENNAN AHN UNIT #: [id number] ROOM/BED: [place] [address] : 42 AGE: 82 SEX: M ATTEND: Arthur Fuentes MD ADM AUTHOR: Florentino Jimenez * ALL edits or amendments must be made on the electronic/computer document * Florentino Jimenez 09/01/22 0503: Subjective Chief complaint: Rehab follow-up Doing better Still requires sitter NAD Eating well + BM Denies MORA/N/V/D/CP 14 systems reviewed and neg. except that above. History of present illness: 82-year-old male with PMH of Alzheimer's dementia, CKD, HTN, atrial fibrillation , history of SVT/ablation who was transferred to [facility] after being found to have multivessel coronary artery disease. Patient initially with was at home and developed chest pains. He was brought to [facility] and underwent left heart cath which revealed [...] of function was independent. Currently patient has generalized weakness. He lives by himself in a one-step up house. He denies any shortness of breath, nausea, vomiting, fever, chills. Denies chest pain. He is complaining of some constipation. He tells me that is in the process of selling his home. Preadmission screen was completed. Patient admitted to IRF. Objective General VS: Vital Signs: Date Time Temp Pulse Resp B/P B/P Pulse O2 O2 Flow FiO2 Mean Ox Delivery Rate 08/31 2351 98.1 73 18 131/70 90.3 94 08/31 2026 99 Room air 08/31 1906 98.4 69 18 118/63 81.4 95 08/31 1537 98.2 74 18 179/90 119.7 96 Room air 08/31 0727 98.4 78 18 157/77 103.9 96 Room air PATIENT WEIGHT: Weight (lb): 221 Weight (oz): 9.03 Weight (kg): 100.500 Medications: Active Meds + DC'd Last 24 Hrs Ipratropium [place] (ATROVENT) 500 MCG RTQ6H WA INH Amiodarone [...] 650 MG Q4H PRN PRN PO Ipratropium [place] (ATROVENT) 500 MCG RTQ2H PRN PRN INH Melatonin (Melatonin) 6 MG BEDTIME PRN PO Ondansetron HCl (ZOFRAN ODT) 4 MG TID PRN PRN SL Functional Progress Functional progress: PT daily note comment: S: PT REPORTS NO COMPLAINTS OF PAIN WITH ACTIVITIES IN THERAPY. O: PT WAS SEEN FOR 90MIN OF THERAPY BEGINNING W/ ASSIST WITH DRESSING THREAD PANTS PT ABLE TO LIFT UP,DON ENZO HOSE AND BINDER,SHOES PT TRANSFER FROM BED<>WC MIN-A CUES TO MAINTAIN STERNAL PRECAUTIONS.ASSIST PT TO REST ROOM MIN A WITH STAND STEP TRANSFER EXTRA TIME DUE TO BOWEL MOVMENET PT REPORTS HE WAS GIVEN A STOOL SOFTNER.PT ABLE TO WIPE SELF EXTRA TIME.REQUIRE REMINDERS TO TURN WATER TO WASH HAND ,REMINDERS OF WHERE SOAP IS WHERE PAPER TOWELS ARE.GAIT TRAINING WITH RW MOD -A TODAY PT OCC IMPULSIVE TALKING TO PATIENTS IN HALLWAY LOB MULTIPLE TIMES PT AMB 180;,50' REPETITION WITH SAFETY CUES,STAIR TRAINING 12 STEPS,2 RAILS MIN-A DUE TO COG DEFICITS. MARCHING IN PLACE IN STANDING,REACHING AND LIFTING OBJECTS OFF FLOOR WITH A PLASTIC HOOK TOLERATED WELL SLOW MVOING EXTRA TIME.THER-EX IN SITTING IB LE IN ALL PLANES 10 REPS,2 SETS. WC MOBILTIY 180'VC FOR SAFETY.EDUCATE PT ON SAFETY WITH TRANSFERS,SAFETY W/FALL PREVENTION, FALL RECOVERY,SAFETY W/RW MGMT. A; PT LIMITED WITH THERAPY DUE TO MEMORY AND COG DEFICITS VERY IMPULSIVE.COMPLETES ALL ACTIVITIES WITH LENGTHY REST STOPS. Physical Exam General appearance: alert, awake Psych: alert, normal affect HEENT: anicteric, mucosal membranes moist, pupils reactive to light, sclera clear Neck: non-tender, supple, no JVD Cardiovascular: irregular rhythm, S1/S2, cap refill wnl, pulses intact Respiratory: diminished breath sounds, on oxygen, aerating well Abdomen: bowel sounds present, non-distended, soft, non-tender Skin: dry, normal temperature, no rash, bruising R thigh, mild L thigh, BUE, R hand Sl tender/edema, sternum incision RSH site CDI, bruising L chest wall, mildly tender, R elbow abrasion Musculoskeletal - general: Musculoskeletal - general: OA changes, normal tone, no swelling, Moves all 4 exts AG, calves NT, no cords, Homans neg Neuro/GATE GUARD: alert, CNII-XII intact, normal speech, no motor deficits, no sensory deficits Results Findings/Data: Laboratory Tests 08/30 0515 Chemistry Sodium (134 - [...] SARS-CoV-2 Ag (Rapid) (Negative) Negative Diagnosis, Assessment Plan Free Text A P: Assessment: Multivessel CAD 08/10: S/p CABG x5-Dr. Dee A-fib s/p a ARISTEO Endoscopic RGSV harvest 08/16: Echo-EF 50-54%, small pericardial effusion Small bilateral pleural effusions. Muscle weakness Unsteady gait Alzheimer's dementia (as per family), poor memory Postoperative anemia LADARIUS on CKD HTN Impairment in self-care, ADLs and functional mobility Plan: -Continue PT/OT -Case management for safe discharge planning. -Decubitus prevention-protective hydrating lotion-turn every 2 hours-offload -Bowel program-MiraLAX, senna -Nutrition, monitor the patient's p.o. intake, check albumin 3.5, 3.2 and prealbumin 14.3, 12, dietary consult, protein supplements. Cardiac diet. BMI above normal parameters. Working with dietary, follow up with PCP -Strict fall and safety precaution -DVT prophylaxis-SCDs -GI prophylaxis on Protonix -CAD on Plavix and aspirin, intolerant to statins -Pulmonary toilet frequent I-S, nebs, wean O2 -Early mobilization-OOB to chair -Work on bed mobility, transfer training, ADLs, pre-gait and gait exercises as tolerable. -Increase endurance and strength -Pain management -Postop care as per CVS -Monitor telemetry -Cardiology on case -LADARIUS as per nephrology-He was following progress man in [place] so plan to refer to his progress man post discharge. Stable renal function as per nephrology. -Dementia/confusion-Higher level of nursing care and monitoring for safety -Strict sternal precautions-patient with poor carryover of sternal precautions -Monitor sites of bruising and right hand pain-from previous phlebotomy sites-no signs of infection -Anemia-vitamin B12 and ferrous sulfate -HTN-BP stable-orthostasis/dizziness-di uretics reduced-midodrine 5 mg twice daily-use ENZO hose and abdominal binder when out of bed-monitor. Medications being monitored by cardiology -Removed sutures x2 from lower chest on 08/25-healed -Follow-up with PCP for dementia evaluation -Dysuria-UA negative-completed Pyridium-symptoms resolved -08/22: Fall: Seen by trauma team after fall. CT head negative. Right shoulder x -ray negative for fracture. Patient patient appears to be at his baseline -08/24: Fall-no head injury-left rib pain-left rib film-no acute fractures, healing fractures of the left lateral 7th and 8th ribs. Small left pleural effusion-Lidoderm patch-monitor -R elbow hurting more. 2 view R elbow x ray-no acute fracture-Lidoderm patch- pain management -Stable cardiac status -08/28 retroperitoneal ultrasound-bilateral renal simple cysts-no follow-up needed -Labs reviewed-WBC normal, hemoglobin 9.1, 8.9, 9.7 platelets stable, creatinine 1.9, 2.2, 1.9, 1.8 magnesium normal, HgbA1C 5.2. -Advance therapies as tolerable -Case discussed with son -1:1 sitter due to multiple falls/safety issues, alert and oriented to 1-2 -Orthostasis with binder and ENZO hose improving. Midodrine dose increased. -Patient making fair progress but limited due to memory and cognitive deficits. Patient impulsive at times. -remote sensing program manager checking on authorization for [facility]. Insurance planning on denying SNF. P2P to be done by Dr. [id number] pending PM R Please see team note. Plan and goals discussed with the patient. I agree with the teams finding ELOS: [pending SNF acceptance] DC-SNF placement-awaiting insurance authorization for [facility]-on appeal DME-bedside commode, rolling walker Total time was 33 minutes > 50% with patient performing physical examination, discussing with patient about appeal for SNF, sitter, fall precaustions, discharge plans, sternal precautions, plan of care, goals, therapies, progress, medications, labs. All questions answered Rehab attestation: Face to face exam completed. Treatment plan discussed with patient. Meets continued stay criteria. Agree with interdisciplinary treatment plan. Arthur Fuentes 09/01/22 1140: Attestations Physician Attestation Agree w/findings plan: Pt seen and examined by me. Agree with the findings and plan as documented by Florentino Jimenez NP at 1141 at 2130 RPT #:[id number] END OF REPORT [facility] 2022-08-31 14:52:00 [facility] Internal Medicine Prog. Note REPORT#:[id number] REPORT STATUS: Signed DATE:08/31/22 TIME: 2 PATIENT: BRENNAN AHN UNIT #: [id number] ROOM/BED: [place] [address] : 42 AGE: 82 SEX: M ATTEND: Arthur Fuentes MD ADM AUTHOR: Devin Fox DO * ALL edits or amendments must be made on the electronic/computer document * Subjective Chief complaint: pt c/o of some cough and pain in SS chest as a result Review of Systems All systems rev neg: except as marked Objective General VS/I O: Vital Signs Date Temp Pulse Resp B/P B/P Mean Pulse Ox FiO2 08/30-08/31 97.7-98.4 64-78 17-18 155-168/68-83 96.6-111.2 96-97 Last Documented: Result Date Time Pulse Ox 96 08/31 726 B/P 157/77 08/31 726 B/P Mean 103.9 08/31 726 O2 Delivery Room air 08/31 726 Temp 98.4 08/31 726 Pulse 78 08/31 07 Resp 18 08/31 07 FiO2 21 08/29 0229 24 hour I O ending at 0700: 08/31 0700 08/30 1900 Intake Total 120 715 Output Total Balance 120 715 Intake, Oral 120 715 PATIENT WEIGHT: Weight (lb): 221 Weight (oz): 9.03 Weight (kg): 100.500 Medications: Active Meds + DC'd Last 24 Hrs Ipratropium [place] (ATROVENT) 500 MCG RTQ6H WA INH Amiodarone [...] Sodium (COLACE) 100 MG BID PO Ipratropium [place] (ATROVENT) 500 MCG RTQ6H INH (DC) Sennosides (Senna Lax 8.6 MG TABLET) 17.2 MG BEDTIME PO Hydralazine HCl (APRESOLINE) 10 MG Q6H PRN PRN IV Acetaminophen (TYLENOL) 650 MG Q4H PRN PRN PO Ipratropium [place] (ATROVENT) 500 MCG RTQ2H PRN PRN INH Melatonin (Melatonin) 6 MG BEDTIME PRN PO Ondansetron HCl (ZOFRAN ODT) 4 MG TID PRN PRN SL Physical Exam General appearance: alert, awake, oriented Head/Eyes: EOMI, PERRLA Neck: non-tender, no JVD Cardiovascular: normal heart sounds, regular rate rhythm Respiratory: aerating well, clear to auscultation Abdomen: non-tender, normal bowel sounds Extremities: Extremities: no cyanosis, no edema Neuro/GATE GUARD: alert, oriented x 3, CNII-XII intact Skin: ecchymosis (l chest) Diagnosis, Assessment Plan Hospital course to date: 82-year-old male with past medical history of hypertension, atrial fibrillation, supraventricular tachycardia status post ablation who was admitted with reports of multivessel coronary artery disease found on a cardiac catheterization done at [facility]. Patient was transferred to [facility] for CABG. He underwent QTVMc0z. 1. Coronary artery disease -Status post CABG x5, ALAA, PVI -Continue metoprolol, Plavix, aspirin 2. Atrial fibrillation -Continue po amiodarone for rate control - taper AMIO per cards -Continue metoprolol -Monitor and review telemetry 3. Debility/ -.-PT/OT - PMR - Inpt Rehab 4. ARF/ckd - Trend cr 1.3-1.9-2.2-2.0-1.9-2.2-1.8 - post op, post lasix therefore likely pre-renal - baseline CKD is suspected - nephro consulted - US RENAL- BILAT Cysts 5. anemia - acute, post op expecteed - monitor and transfuse if hg <7 - cont po Iron - Trend Hg 9.1-9.7 6. Delirium/ dementia -Likely due to sundowning/dementia -Monitor closely -Patient is neurologically intact 7. FALLs - 08/22, 08/24 - ct head neg - R shoulder Xr neg - R elbow pain- mild- pain meds prn - sitter at bedside 8. Dysuria - UA neg - on pyridium prn - consider Urologist consult 9. Orthostatic hypotension - cont Midodrine and adjust up - check orthostatic VS- mild orthostasis 10. RIB fx - 08/24 Left RIb xr -HEALING L 7th and 8th rib fractures- unknown chronicity - ribs fractures show "healing" ALREADY d/w RN and Pt and son in details total time spent 35mins Consultants: cardiology, cardiovascular surgery, hospitalist, nephrology Quality: Gen Med Crit Care Current Medications Current medication review: I attest that the foregoing medication list in the medical record is true, accurate, and complete to the best of my knowledge. Advanced Care Plan 65 or Older Discussed with: patient Discussion included: code status at 0917 RPT #:[id number] END OF REPORT [facility] 2022-08-31 12:16:00 [facility] ([facility] Cardiology Progress Note REPORT#:[id number] REPORT STATUS: Signed DATE:08/31/22 TIME: 1216 PATIENT: BRENNAN AHN UNIT #: [id number] ROOM/BED: [place] [address] : 42 AGE: 82 SEX: M ATTEND: Arthur Fuentes MD ADM AUTHOR: Catrina Shetty * ALL edits or amendments must be made on the electronic/computer document * Subjective Patient reports: No: complaints. Objective General VS/I O: 24 hour I O ending at 0700: [...] 178/78 111.1 98 PATIENT WEIGHT: Weight (lb): 221 Weight (oz): 9.03 Weight (kg): 100.500 Medications: Active Meds + DC'd Last 24 Hrs Ipratropium [place] (ATROVENT) 500 MCG RTQ6H WA INH Amiodarone [...] Sodium (COLACE) 100 MG BID PO Ipratropium [place] (ATROVENT) 500 MCG RTQ6H INH (DC) Sennosides (Senna Lax 8.6 MG TABLET) 17.2 MG BEDTIME PO Hydralazine HCl (APRESOLINE) 10 MG Q6H PRN PRN IV Acetaminophen (TYLENOL) 650 MG Q4H PRN PRN PO Ipratropium [place] (ATROVENT) 500 MCG RTQ2H PRN PRN INH Melatonin (Melatonin) 6 MG BEDTIME PRN PO Ondansetron HCl (ZOFRAN ODT) 4 MG TID PRN PRN SL Physical Exam General appearance: alert, awake Neck: non-tender, no JVD Cardiovascular: CV assessment: irregularly irregular Respiratory: decreased breath sounds, no distress Abdomen: soft, non-tender, normal bowel sounds, no distention Genitourinary: no flank pain, no urinary catheter Lower extremity: LE assessment: no edema Musculoskeletal: normal inspection Neuro/GATE GUARD: alert Skin: dry Psychiatry: normal affect, normal mood Results Results: no new labs, vital signs reviewed Diagnosis, Assessment Plan Free Text DxA P Notes Free Text DxA P Notes: 82 YO male with MHX of Afib, HTN, HLD, CAD who is s/p 5 vessel CABG and PVI and ALAA. The patient is transferred to [facility] for inpatient rehabilitation. We are consulted for continuity of cardiac-related care. 1. CAD s/p CABG x 5 (NGUYEN-LAD, SVG-Olga Lidia, SVG-OM, SVG-LPLA, SVG-PDA) continue asa, BB, plavix, Zetia echo 08/12- LVEF 50-54%, left pleural effusion intolerant of statin, will consider nonstatin med such as Repatha or Nexletol outpatient 2. A-fib: Paroxysmal - rate controlled s/p PVI and ARISTEO amputation decrease amiodarone to 200 mg daily - DC prior to discharge Continue low-dose metoprolol 12.5 mg BID no need for AC since left atrial appendage was removed during CABG 3. HTN BP stable on midodrine Continue low-dose metoprolol 12.5 mg BID 4. LADARIUS nephrology following 5. Dizziness 2/2 orthostatic hypotension midodrine for orthostatic hypotension compression stocking and abdominal binder before OOB dizziness resolved 6. s/p Fall 08/22 and 08/24 CT head no acute finding R Elbow XR - no fracture L rib XR -healing fractures of the left lateral seventh and eighth ribs continue supportive care outpatient follow-up with Dr. Sanchez Case management assisting with discharge placement. at 1437 at 1403 RPT #:[id number] END OF REPORT [facility] 2022-08-31 11:46:00 [facility] ([facility] Nephrology Progress Note REPORT#:[id number] REPORT STATUS: Signed DATE:08/31/22 TIME: 1146 PATIENT: BRENNAN AHN UNIT #: [id number] [place] [facility] [place] AGE: 82 SEX: M ATTEND: Arthur Fuentes MD ADM AUTHOR: Maura Terrazas MD * ALL edits or amendments must be made on the electronic/computer document * Subjective Chief complaint: chest pain HPI: 82-year-old male known to have hypertension, atrial fibrillation, supraventricular tachycardia with requiring ablation presenting with multivessel cardiovascular disease and he underwent CABG 07/13/2022. He endorsed having kidney issues in the past and seeing a progress man at [place] but his kidney function had been stable since then.He developed oliguria,LADARIUS and hypervolemia post CABG but had now improved and was transferred to rehab. 08/31 Patient appearing comfortable, he denied dizziness, SOB, nausea, orthopnea, cramping. Objective General VS/I O: Vital Signs: Date Time Temp Pulse Resp [...] Oral 120 720 PATIENT WEIGHT: Weight (lb): 221 Weight (oz): 9.03 Weight (kg): 100.500 Physical Exam General appearance: alert, awake, oriented Head/eyes: atraumatic, clear cornea, EOMI ENT: moist mucous membranes, normal nose Neck: no JVD, no masses or swelling Cardiovascular: normal heart sounds, regular rate and rhythm Respiratory: aerating well, clear to auscultation Abdomen: non-tender, soft Genitourinary: no bladder distention, no flank pain Extremities: no edema, no gangrene, no swelling Diagnosis, Assessment Plan Free Text A P: 82-year-old male known to have hypertension, atrial fibrillation, supraventricular tachycardia with requiring ablation presenting with multivessel cardiovascular disease and he underwent CABG 07/13/2022. Transferred [...] recently had surgery. Resolving with better hemodynamics. His kidney function was stable plan was to [...] stable renal function. Plan to keepMAP>65 and avoid nephrotoxic agents. He was following progress man in [place] so plan to refer to his progress man post discharge. 2. Hypervolemia:Patient at high risk of volume overload so would reccommend lasix PO, lasix held due to hypotension .Volume improving slowly. 3. Electrolytes: His electrolytes appear to be in normal range plan is to monitor and replace as needed. 4. Hypotension: Midodrine dose increased .Plan to monitor. 08/24 1. LADARIUS on CKD: Patient with stable renal function. Plan to keepMAP>65 and avoid nephrotoxic agents. He was following progress man in [place] so plan to refer to his progress man post discharge. 2. Hypervolemia:Patient at high risk of volume overload so would reccommend lasix PO, lasix held due to hypotension .Volume stable. 3. Electrolytes: His electrolytes appear to be in normal range plan is to monitor and replace as needed. 4. Hypotension: Midodrine dose increased .Plan to monitor and increase midodrine if SBP<110. 08/30 1. LADARIUS on CKD: Patient with stable renal function. Plan to keepMAP>65 and avoid nephrotoxic agents. He was following progress man in [place] so plan to refer to his progress man post discharge. 2. Hypervolemia: .Volume stable.Plan to give lasix PRN .He is not tolerating daily dose due to hypotension. 3. Electrolytes: His electrolytes appear to be in normal range plan is to monitor and replace as needed. 4. Hypotension: Midodrine dose increased .Plan to monitor and increase midodrine if SBP<110. 08/31 1. LADARIUS on CKD: Patient with stable renal function. Plan to keepMAP>65 and avoid nephrotoxic agents. He was following progress man in [place] so plan to refer to his progress man post discharge. 2. Hypervolemia: .Volume stable.Plan to give lasix PRN .He is not tolerating daily dose due to hypotension. 3. Electrolytes: His electrolytes appear to be in normal range plan is to monitor and replace as needed. 4. Hypotension: Midodrine dose increased .Plan to monitor and increase midodrine if SBP<110. Consultants: cardiology, cardiovascular surgery, hospitalist, nephrology at 1837 RPT #:[id number] END OF REPORT [facility] 2022-08-31 07:30:00 [facility] Progress Note REPORT#:[id number] REPORT STATUS: Signed DATE:08/31/22 TIME: 729 PATIENT: BRENNAN AHN UNIT #: [id number] ROOM/BED: [place] [id number] : 42 AGE: 82 SEX: M ATTEND: Arthur Fuentes MD ADM AUTHOR: Arthur Fuentes MD * ALL edits or amendments must be made on the electronic/computer document * Subjective Chief complaint: Rehab follow-up Doing better Still requires sitter NAD Eating well + BM Denies MORA/N/V/D/CP 14 systems reviewed and neg. except that above. History of present illness: 82-year-old male with PMH of Alzheimer's dementia, CKD, HTN, atrial fibrillation , history of SVT/ablation who was transferred to [facility] after being found to have multivessel coronary artery disease. Patient initially with was at home and developed chest pains. He was brought to [facility] and underwent left heart cath which revealed [...] of function was independent. Currently patient has generalized weakness. He lives by himself in a one-step up house. He denies any shortness of breath, nausea, vomiting, fever, chills. Denies chest pain. He is complaining of some constipation. He tells me that is in the process of selling his home. Preadmission screen was completed. Patient admitted to IRF. Objective General VS: Vital Signs: Date Time Temp Pulse Resp B/P B/P Pulse O2 O2 Flow FiO2 Mean Ox Delivery Rate 08/31 0727 98.4 78 18 157/77 103.9 96 Room air 08/30 2355 98.1 64 17 155/68 96.6 97 08/30 1917 97.7 74 18 168/83 111.2 97 Room air 08/30 1430 98.6 76 20 178/78 111.1 98 08/30 1208 98.2 65 21 171/84 113.4 98 08/30 1131 96 Room air PATIENT WEIGHT: Weight (lb): 221 Weight (oz): 9.03 Weight (kg): 100.500 Medications: Active Meds + DC'd Last 24 Hrs Ipratropium [place] (ATROVENT) 500 MCG RTQ6H WA INH Amiodarone [...] Sodium (COLACE) 100 MG BID PO Ipratropium [place] (ATROVENT) 500 MCG RTQ6H INH (DC) Sennosides (Senna Lax 8.6 MG TABLET) 17.2 MG BEDTIME PO Hydralazine HCl (APRESOLINE) 10 MG Q6H PRN PRN IV Acetaminophen (TYLENOL) 650 MG Q4H PRN PRN PO Ipratropium [place] (ATROVENT) 500 MCG RTQ2H PRN PRN INH Melatonin (Melatonin) 6 MG BEDTIME PRN PO Ondansetron HCl (ZOFRAN ODT) 4 MG TID PRN PRN SL Physical Exam General appearance: alert, awake, no acute distress Psych: alert, normal affect, oriented x 3 HEENT: anicteric, mucosal membranes moist, pupils reactive to light, sclera clear Neck: non-tender, supple, no JVD Cardiovascular: irregular rhythm, S1/S2, cap refill wnl, pulses intact Respiratory: diminished breath sounds, on oxygen, aerating well Abdomen: bowel sounds present, non-distended, soft, non-tender Skin: dry, normal temperature, no rash, bruising R thigh, mild L thigh, BUE, R hand Sl tender/edema, sternum incision RSH site CDI, bruising L chest wall, mildly tender, R elbow abrasion Musculoskeletal - general: Musculoskeletal - general: OA changes, normal tone, no swelling, Moves all 4 exts AG, calves NT, no cords, Homans neg Neuro/GATE GUARD: alert, oriented X 3, CNII-XII intact, normal speech, no motor deficits, no sensory deficits Results Findings/Data: Laboratory Tests 08/29 08/30 0510 0515 Chemistry Sodium [...] Serology SARS-CoV-2 Ag (Rapid) (Negative) Negative Radiology data: Recent Impressions: RADIOLOGY - XR RIBS UNI 2 V LT 08/24 1455 Report Impression - Status: SIGNED Entered: 08/24/2022 1606 IMPRESSION: Healing fractures of the left lateral 7th and 8th ribs. Small left pleural effusion. Impression By: [email or web address] - Florentino Perez M.D. ULTRASOUND - US RETROPERITONEAL COM 08/28 1300 Report Impression - Status: SIGNED Entered: 08/28/2022 1417 IMPRESSION: Bilateral renal simple cysts not necessitating follow-up. Impression By: Miriam Loredo M.D. Diagnosis, Assessment Plan Problem List/A P: 1. CAD (coronary artery disease) 2. Afib 3. HTN (hypertension) 4. S/P CABG x 5 5. Impaired functional mobility, balance, gait, and endurance Free Text A P: Assessment: Multivessel CAD 08/10: S/p CABG x5-Dr. Josephine Loredo-fib s/p a ARISTEO Endoscopic RGSV harvest 08/16: Echo-EF 50-54%, small pericardial effusion Small bilateral pleural effusions. Muscle weakness Unsteady gait Alzheimer's dementia (as per family), poor memory Postoperative anemia LADARIUS on CKD HTN Impairment in self-care, ADLs and functional mobility Plan: -Continue PT/OT -Case management for safe discharge planning. -Decubitus prevention-protective hydrating lotion-turn every 2 hours-offload -Bowel program-MiraLAX, senna -Nutrition, monitor the patient's p.o. intake, check albumin 3.5, 3.2 and prealbumin 14.3, 12, dietary consult, protein supplements. Cardiac diet. BMI above normal parameters. Working with dietary, follow up with PCP -Strict fall and safety precaution -DVT prophylaxis-SCDs -GI prophylaxis on Protonix -CAD on Plavix and aspirin, intolerant to statins -Pulmonary toilet frequent I-S, nebs, wean O2 -Early mobilization-OOB to chair -Work on bed mobility, transfer training, ADLs, pre-gait and gait exercises as tolerable. -Increase endurance and strength -Pain management -Postop care as per CVS -Monitor telemetry -Cardiology on case -LADARIUS as per nephrology-He was following progress man in [place] so plan to refer to his progress man post discharge. Stable renal function as per nephrology. -Dementia/confusion-Higher level of nursing care and monitoring for safety -Strict sternal precautions-patient with poor carryover of sternal precautions -Monitor sites of bruising and right hand pain-from previous phlebotomy sites-no signs of infection -Anemia-vitamin B12 and ferrous sulfate -HTN-BP stable-orthostasis/dizziness-di uretics reduced-midodrine 5 mg twice daily-use ENZO hose and abdominal binder when out of bed-monitor. Medications being monitored by cardiology -Removed sutures x2 from lower chest on 08/25-healed -Follow-up with PCP for dementia evaluation -Dysuria-UA negative-completed Pyridium-symptoms resolved -08/22: Fall: Seen by trauma team after fall. CT head negative. Right shoulder x -ray negative for fracture. Patient patient appears to be at his baseline -08/24: Fall-no head injury-left rib pain-left rib film-no acute fractures, healing fractures of the left lateral 7th and 8th ribs. Small left pleural effusion-Lidoderm patch-monitor -R elbow hurting more. 2 view R elbow x ray-no acute fracture-Lidoderm patch- pain management -Stable cardiac status -08/28 retroperitoneal ultrasound-bilateral renal simple cysts-no follow-up needed -Labs reviewed-WBC normal, hemoglobin 9.1, 8.9, 9.7 platelets stable, creatinine 1.9, 2.2, 1.9, 1.8 magnesium normal, HgbA1C 5.2. -Advance therapies as tolerable -Case discussed with son -1:1 sitter due to multiple falls/safety issues, alert and oriented to 1-2 -Orthostasis with binder and ENZO hose improving. Midodrine dose increased. -Patient making fair progress but limited due to memory and cognitive deficits. Patient impulsive at times. -remote sensing program manager checking on authorization for [employer]. Insurance planning on denying SNF. P2P to be done by Dr. [id number] pending Progress: PT WAS SEEN FOR 90MIN OF THERAPY BEGINNING W/GAIT TRAINING WITH RW 180',50' MOD<>MIN-A PT IS IMPULSIVE AT TIME,100' USING WALL RAIL JOSE R- SLOW MOVING,STAIR TRAINING 4 STEPS,2 RAILS MIN-A,PICKING OBJECTS OFF FLOOR VC FOR SAFETY. 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 PM R Please see team note. Plan and goals discussed with the patient. I agree with the teams finding ELOS: [pending SNF acceptance] DC-SNF placement-awaiting insurance authorization for [employer]-on appeal DME-bedside commode, rolling walker Total time was 35 minutes > 50% with patient performing physical examination, discussing with patient about appeal for SNF, sitter, fall precaustions, discharge plans, sternal precautions, plan of care, goals, therapies, progress, medications, labs. All questions answered Orders: Procedure Date/time Status NEB TREATMENT SUBSQ 08/31 1411 Active PT GAIT TRNG 08/31 UNK Complete PT FUNCTIONAL TRN 15 MIN 08/31 UNK Complete PT EXERCISE 15 MIN 08/31 UNK Complete Consultants: cardiology, cardiovascular surgery, hospitalist, nephrology Rehab attestation: Face to face exam completed. Treatment plan discussed with patient. Meets continued stay criteria. Agree with interdisciplinary treatment plan. at 1424 [facility] #:[id number] END OF REPORT [facility] 2022-08-30 13:20:00 [facility] Nephrology Progress Note REPORT#:[id number] REPORT STATUS: Signed DATE:08/30/22 TIME: 1320 PATIENT: BRENNAN AHN UNIT #: [id number] ROOM/BED: [place] [address] : 42 AGE: 82 SEX: M ATTEND: Arthur Fuentes MD ADM AUTHOR: Maura Terrazas MD * ALL edits or amendments must be made on the electronic/computer document * Subjective Chief complaint: chest pain HPI: 82-year-old male known to have hypertension, atrial fibrillation, supraventricular tachycardia with requiring ablation presenting with multivessel cardiovascular disease and he underwent CABG 07/13/2022. He endorsed having kidney issues in the past and seeing a progress man at [place] but his kidney function had been stable since then.He developed oliguria,LADARIUS and hypervolemia post CABG but had now improved and was transferred to rehab. 08/30 Patient appearing comfortable, he denied dizziness, SOB, nausea, orthopnea, cramping. Objective General VS/I O: Vital Signs: Date Time Temp Pulse Resp B/P B/P Pulse O2 O2 Flow FiO2 Mean Ox Delivery Rate 08/31 726 36.9 78 18 157/77 103.9 96 Room [...] Oral 120 715 PATIENT WEIGHT: Weight (lb): 221 Weight (oz): 9.03 Weight (kg): 100.500 Physical Exam General appearance: alert, awake, oriented Head/eyes: atraumatic, clear cornea, EOMI ENT: moist mucous membranes, normal nose Neck: no JVD, no masses or swelling Cardiovascular: normal heart sounds, regular rate and rhythm Respiratory: aerating well, clear to auscultation Abdomen: non-tender, soft Genitourinary: no bladder distention, no flank pain Extremities: no edema, no gangrene, no swelling Diagnosis, Assessment Plan Free Text A P: 82-year-old male known to have hypertension, atrial fibrillation, supraventricular tachycardia with requiring ablation presenting with multivessel cardiovascular disease and he underwent CABG 07/13/2022. Transferred [...] recently had surgery. Resolving with better hemodynamics. His kidney function was stable plan was to [...] stable renal function. Plan to keepMAP>65 and avoid nephrotoxic agents. He was following progress man in [place] so plan to refer to his progress man post discharge. 2. Hypervolemia:Patient at high risk of volume overload so would reccommend lasix PO, lasix held due to hypotension .Volume improving slowly. 3. Electrolytes: His electrolytes appear to be in normal range plan is to monitor and replace as needed. 4. Hypotension: Midodrine dose increased .Plan to monitor. 08/24 1. ALDARIUS on CKD: Patient with stable renal function. Plan to keepMAP>65 and avoid nephrotoxic agents. He was following progress man in [place] so plan to refer to his progress man post discharge. 2. Hypervolemia:Patient at high risk of volume overload so would reccommend lasix PO, lasix held due to hypotension .Volume stable. 3. Electrolytes: His electrolytes appear to be in normal range plan is to monitor and replace as needed. 4. Hypotension: Midodrine dose increased .Plan to monitor and increase midodrine if SBP<110. 08/30 1. LADARIUS on CKD: Patient with stable renal function. Plan to keepMAP>65 and avoid nephrotoxic agents. He was following progress man in [place] so plan to refer to his progress man post discharge. 2. Hypervolemia: .Volume stable.Plan to give lasix PRN .He is not tolerating daily dose due to hypotension. 3. Electrolytes: His electrolytes appear to be in normal range plan is to monitor and replace as needed. 4. Hypotension: Midodrine dose increased .Plan to monitor and increase midodrine if SBP<110. Consultants: cardiology, cardiovascular surgery, hospitalist, nephrology at 1146 RPT #:[id number] END OF REPORT [facility] 2022-08-30 11:08:00 [facility] Progress Note REPORT#:[id number] REPORT STATUS: Signed DATE:08/30/22 TIME: 1108 PATIENT: BRENNAN AHN UNIT #: [id number] ROOM/BED: [address]: 42 AGE: 82 SEX: M ATTEND: Arthur Fuentes MD ADM AUTHOR: Florentino Jimenez * ALL edits or amendments must be made on the electronic/computer document * Subjective Chief complaint: Rehab follow-up Doing better Still requires sitter NAD Eating well + BM Denies MORA/N/V/D/CP 14 systems reviewed and neg. except that above. History of present illness: 82-year-old male with PMH of Alzheimer's dementia, CKD, HTN, atrial fibrillation , history of SVT/ablation who was transferred to [facility] after being found to have multivessel coronary artery disease. Patient initially with was at home and developed chest pains. He was brought to [facility] and underwent left heart cath which revealed [...] of function was independent. Currently patient has generalized weakness. He lives by himself in a one-step up house. He denies any shortness of breath, nausea, vomiting, fever, chills. Denies chest pain. He is complaining of some constipation. He tells me that is in the process of selling his home. Preadmission screen was completed. Patient admitted to IRF. Objective General VS: Vital Signs: Date Time Temp Pulse Resp [...] 127/69 88.5 97 PATIENT WEIGHT: Weight (lb): 221 Weight (oz): 9.03 Weight (kg): 100.500 Medications: Active Meds + DC'd Last 24 Hrs Amiodarone HCl (CORDARONE) 200 MG DAILY PO [...] Sodium (COLACE) 100 MG BID PO Ipratropium [place] (ATROVENT) 500 MCG RTQ6H INH Sennosides (Senna Lax 8.6 MG TABLET) 17.2 MG BEDTIME PO Hydralazine HCl (APRESOLINE) 10 MG Q6H PRN PRN IV Acetaminophen (TYLENOL) 650 MG Q4H PRN PRN PO Ipratropium [place] (ATROVENT) 500 MCG RTQ2H PRN PRN INH Melatonin (Melatonin) 6 MG BEDTIME PRN PO Ondansetron HCl (ZOFRAN ODT) 4 MG TID PRN PRN SL Functional Progress Functional progress: PT daily note comment: S: PT REPORTS NO COMPLAINTS OF ACUTE PAIN WITH ACTIVIITES IN THERPAY. O: PT WAS SEEN FOR 90MIN OF THERAPY BEGINNING W/DON OF ENZO MCCALL.COMPLETE ORTHOSTATIC VITALS RECORD,WC MOBILITY 200' BI LE VC FOR SAFETY,GAIT TRAINING 70' MIN- WITH RW 50'X2 USING WALL RAIL MIN-A FOR SAFETY.PT WORKED ON SIT TO STANDS FROM GYM MAT 5 REPS,2 SETS.PT REQUIRES EXTRA REST STOPS.REPETITION WITH VC FOR SAFETY VERY PLEASANT TO WORK WITH. A; PT MAKING LIMITED PROGRESS DUE TO MEMORY DEFICITS WELL COG.DEFICITS. P: PT CONT.WITH PT POC. Physical Exam General appearance: alert, awake Psych: alert, normal affect, oriented x 3 HEENT: anicteric, mucosal membranes moist, pupils reactive to light, sclera clear Neck: non-tender, supple, no JVD Cardiovascular: irregular rhythm, S1/S2, cap refill wnl, pulses intact Respiratory: diminished breath sounds, on oxygen, aerating well Abdomen: bowel sounds present, non-distended, soft, non-tender Skin: dry, normal temperature, no rash, bruising R thigh, mild L thigh, BUE, R hand Sl tender/edema, sternum incision RSH site CDI, bruising L chest wall, mildly tender, R elbow abrasion Musculoskeletal - general: Musculoskeletal - general: OA changes, normal tone, no swelling, Moves all 4 exts AG, calves NT, no cords, Homans neg Neuro/GATE GUARD: alert, oriented X 3, CNII-XII intact, normal speech, no motor deficits, no sensory deficits Results Findings/Data: Laboratory Tests 08/28 0618 Chemistry Albumin (3.4 - 5.0 g/dL) 3.20 L Prealbumin (16.0 - 40.0 mg/dL) 12.0 L Laboratory Tests 08/29 0510 Serology SARS-CoV-2 Ag (Rapid) (Negative) Negative Recent Impressions: ULTRASOUND - US RETROPERITONEAL COM 08/28 1300 Report Impression - Status: SIGNED Entered: 08/28/2022 1417 IMPRESSION: Bilateral renal simple cysts not necessitating follow-up. Impression By: Miriam - Aniket Loredo M.D. Diagnosis, Assessment Plan Problem List/A P: 1. CAD (coronary artery disease) 2. Afib 3. HTN (hypertension) 4. S/P CABG x 5 5. Impaired functional mobility, balance, gait, and endurance Free Text A P: Assessment: Multivessel CAD 08/10: S/p CABG x5-Dr. Josephine Loredo-fib s/p a ARISTEO Endoscopic RGSV harvest 08/16: Echo-EF 50-54%, small pericardial effusion Small bilateral pleural effusions. Muscle weakness Unsteady gait Alzheimer's dementia (as per family), poor memory Postoperative anemia LADARIUS on CKD HTN Impairment in self-care, ADLs and functional mobility Plan: -Continue PT/OT -Case management for safe discharge planning. -Decubitus prevention-protective hydrating lotion-turn every 2 hours-offload -Bowel program-MiraLAX, senna -Nutrition, monitor the patient's p.o. intake, check albumin 3.5, 3.2 and prealbumin 14.3, 12, dietary consult, protein supplements. Cardiac diet. BMI above normal parameters. Working with dietary, follow up with PCP -Strict fall and safety precaution -DVT prophylaxis-SCDs -GI prophylaxis on Protonix -CAD on Plavix and aspirin, intolerant to statins -Pulmonary toilet frequent I-S, nebs, wean O2 -Early mobilization-OOB to chair -Work on bed mobility, transfer training, ADLs, pre-gait and gait exercises as tolerable. -Increase endurance and strength -Pain management -Postop care as per CVS -Monitor telemetry -Cardiology on case -LADARIUS as per nephrology-He was following progress man in [place] so plan to refer to his progress man post discharge. -Dementia/confusion-Higher level of nursing care and monitoring for safety -Strict sternal precautions-patient with poor carryover of sternal precautions -Monitor sites of bruising and right hand pain-from previous phlebotomy sites-no signs of infection -Anemia-vitamin B12 and ferrous sulfate -HTN-BP stable-orthostasis/dizziness-di uretics reduced-midodrine 5 mg twice daily-use ENZO hose and abdominal binder when out of bed-monitor. Medications being monitored by cardiology -Removed sutures x2 from lower chest on 08/25-healed -Follow-up with PCP for dementia evaluation -Dysuria-UA negative-completed Pyridium-symptoms resolved -08/22: Fall: Seen by trauma team after fall. CT head negative. Right shoulder x -ray negative for fracture. Patient patient appears to be at his baseline -08/24: Fall-no head injury-left rib pain-left rib film-no acute fractures, healing fractures of the left lateral 7th and 8th ribs. Small left pleural effusion-Lidoderm patch-monitor -R elbow hurting more. 2 view R elbow x ray-no acute fracture-Lidoderm patch- pain management -Stable cardiac status -08/28 retroperitoneal ultrasound-bilateral renal simple cysts-no follow-up needed -Labs reviewed-WBC normal, hemoglobin 9.1, 8.9, 9.7 platelets stable, creatinine 1.9, 2.2, 1.9, 1.8 magnesium normal, HgbA1C 5.2. -Advance therapies as tolerable -Case discussed with son -1:1 sitter due to multiple falls -Patient still has orthostasis with binder and ENZO hose. Midodrine dose increased. Requires multiple rest breaks. Patient ambulated with rolling walker 200 feet with contact-guard assist. -remote sensing program manager checking on authorization for [facility]. Insurance planning on denying SNF. P2P to be done by Dr. Fuentes PM R Please see team note. Plan and goals discussed with the patient. I agree with the teams finding ELOS: [08/30 pending SNF acceptance] DC-SNF placement-awaiting insurance authorization for [facility] DME-bedside commode, rolling walker Total time was 34 minutes > 50% with patient performing physical examination, discussing with patient about sitter, fall precaustions, discharge plans, sternal precautions, plan of care, goals, therapies, progress, medications, labs. All questions answered Rehab attestation: . at 0832 RPT #:[id number] END OF REPORT [facility] 2022-08-30 10:54:00 [facility] ([facility] Cardiology Progress Note REPORT#:[id number] REPORT STATUS: Signed DATE:08/30/22 TIME: 1054 PATIENT: BRENNAN AHN UNIT #: [id number] ROOM/BED: [place] [address] : 42 AGE: 82 SEX: M ATTEND: Arthur Fuentes MD ADM AUTHOR: Catrina Shetty AGACNP * ALL edits or amendments must be made on the electronic/computer document * Subjective Patient reports: No: complaints. Objective General VS/I O: 24 hour I O ending at 0700: [...] 2343 36.8 68 18 131/64 86.5 96 08/291 94 Room air 08/29 1925 36.8 96 16 150/69 95.8 95 08/29 1627 36.4 85 18 117/44 68.0 96 08/29 1256 36.4 79 18 127/69 88.5 97 PATIENT WEIGHT: Weight (lb): 221 Weight (oz): 9.03 Weight (kg): 100.500 Medications: Active Meds + DC'd Last 24 Hrs Amiodarone HCl (CORDARONE) 200 MG DAILY PO [...] Sodium (COLACE) 100 MG BID PO Ipratropium [place] (ATROVENT) 500 MCG RTQ6H INH Sennosides (Senna Lax 8.6 MG TABLET) 17.2 MG BEDTIME PO Hydralazine HCl (APRESOLINE) 10 MG Q6H PRN PRN IV Acetaminophen (TYLENOL) 650 MG Q4H PRN PRN PO Ipratropium [place] (ATROVENT) 500 MCG RTQ2H PRN PRN INH Melatonin (Melatonin) 6 MG BEDTIME PRN PO Ondansetron HCl (ZOFRAN ODT) 4 MG TID PRN PRN SL Physical Exam General appearance: alert, awake Neck: non-tender, no JVD Cardiovascular: CV assessment: irregularly irregular Respiratory: decreased breath sounds, no distress Abdomen: soft, non-tender, normal bowel sounds, no distention Genitourinary: no flank pain, no urinary catheter Lower extremity: LE assessment: no edema Musculoskeletal: normal inspection Neuro/GATE GUARD: alert Skin: dry Psychiatry: normal affect, normal mood Results Findings/Data: Laboratory Tests 08/30 0515 Chemistry Sodium (134 - [...] Diagnosis, Assessment Plan Free Text DxA P Notes Free Text DxA P Notes: 82 YO male with MHX of Afib, HTN, HLD, CAD who is s/p 5 vessel CABG and PVI and ALAA. The patient is transferred to [facility] for inpatient rehabilitation. We are consulted for continuity of cardiac-related care. 1. CAD s/p CABG x 5 (NGUYEN-LAD, SVG-Olga Lidia, SVG-OM, SVG-LPLA, SVG-PDA) continue asa, BB, plavix, Zetia echo 08/12- LVEF 50-54%, left pleural effusion intolerant of statin, will consider nonstatin med such as Repatha or Nexletol outpatient 2. A-fib: Paroxysmal - rate controlled s/p PVI and ARISTEO amputation decrease amiodarone to 200 mg daily - DC prior to discharge Continue low-dose metoprolol 12.5 mg BID no need for AC since left atrial appendage was removed during CABG 3. HTN BP stable on midodrine Continue low-dose metoprolol 12.5 mg BID 4. LADARIUS nephrology following 5. Dizziness 2/2 orthostatic hypotension midodrine for orthostatic hypotension compression stocking and abdominal binder before OOB dizziness resolved 6. s/p Fall 08/22 and 08/24 CT head no acute finding R Elbow XR - no fracture L rib XR -healing fractures of the left lateral seventh and eighth ribs continue supportive care Plan for DC to SNF outpatient follow-up with Dr. Sanchez at 1646 at 1402 RPT #:[id number] END OF REPORT [facility] 2022-08-29 14:35:00 [facility] Internal Medicine Prog. Note REPORT#:[id number] REPORT STATUS: Signed DATE:08/29/22 TIME: 1435 PATIENT: BRENNAN AHN UNIT #: [id number] ROOM/BED: [place] [address] : 42 AGE: 82 SEX: M ATTEND: Arthur Fuentes MD ADM AUTHOR: Devin Fox DO * ALL edits or amendments must be made on the electronic/computer document * Subjective Chief complaint: pt c/o of some cough and pain in SS chest as a result Review of Systems All systems rev neg: except as marked Objective General VS/I O: Vital Signs Date Temp Pulse Resp B/P B/P Mean Pulse Ox FiO2 08/28-08/29 97.3-98.4 68-102 16-19 93-155/50-82 66.8-106.2 92-99 21 [...] Intake, Oral 715 PATIENT WEIGHT: Weight (lb): 221 Weight (oz): 9.03 Weight (kg): 100.500 Medications: Active Meds + DC'd Last 24 Hrs Amiodarone HCl (CORDARONE) 200 MG DAILY PO [...] Sodium (COLACE) 100 MG BID PO Ipratropium [place] (ATROVENT) 500 MCG RTQ6H INH Sennosides (Senna Lax 8.6 MG TABLET) 17.2 MG BEDTIME PO Hydralazine HCl (APRESOLINE) 10 MG Q6H PRN PRN IV Acetaminophen (TYLENOL) 650 MG Q4H PRN PRN PO Ipratropium [place] (ATROVENT) 500 MCG RTQ2H PRN PRN INH Melatonin (Melatonin) 6 MG BEDTIME PRN PO Ondansetron HCl (ZOFRAN ODT) 4 MG TID PRN PRN SL Physical Exam General appearance: alert, awake, oriented Head/Eyes: EOMI, PERRLA Neck: non-tender, no JVD Cardiovascular: normal heart sounds, regular rate rhythm Respiratory: aerating well, clear to auscultation Abdomen: non-tender, normal bowel sounds Extremities: Extremities: no cyanosis, no edema Neuro/GATE GUARD: alert, oriented x 3, CNII-XII intact Skin: ecchymosis (l chest) Results Findings/Data: Laboratory Tests 08/29 0510 Serology SARS-CoV-2 Ag (Rapid) (Negative) Negative Diagnosis, Assessment Plan Hospital course to date: 82-year-old male with past medical history of hypertension, atrial fibrillation, supraventricular tachycardia status post ablation who was admitted with reports of multivessel coronary artery disease found on a cardiac catheterization done at [facility]. Patient was transferred to [facility] for CABG. He underwent PHSOd0e. 1. Coronary artery disease -Status post CABG x5, ALAA, PVI -Continue metoprolol, Plavix, aspirin 2. Atrial fibrillation -Continue po amiodarone for rate control - taper AMIO per cards -Continue metoprolol -Monitor and review telemetry 3. Debility/ -.-PT/OT - PMR - Inpt Rehab 4. ARF/ckd - Trend cr 1.3-1.9-2.2-2.0-1.9-2.2-1.8 - post op, post lasix therefore likely pre-renal - baseline CKD is suspected - nephro consulted - US RENAL- BILAT Cysts 5. anemia - acute, post op expecteed - monitor and transfuse if hg <7 - cont po Iron - Trend Hg 9.1 6. Delirium/ dementia -Likely due to sundowning/dementia -Monitor closely -Patient is neurologically intact 7. FALLs - 08/22, 08/24 - ct head neg - R shoulder Xr neg - R elbow pain- mild- pain meds prn - sitter at bedside 8. Dysuria - UA neg - on pyridium prn - consider Urologist consult 9. Orthostatic hypotension - cont Midodrine and adjust up - check orthostatic VS- mild orthostasis 10. RIB fx - 08/24 Left RIb xr -HEALING L 7th and 8th rib fractures- unknown chronicity - ribs fractures show "healing" ALREADY d/w RN and Pt and son in details total time spent 35mins d/w SON Consultants: cardiology, cardiovascular surgery, hospitalist, nephrology Quality: Gen Med Crit Care Current Medications Current medication review: I attest that the foregoing medication list in the medical record is true, accurate, and complete to the best of my knowledge. Advanced Care Plan 65 or Older Discussed with: patient Discussion included: code status at 0917 RPT #:[id number] END OF REPORT [facility] 2022-08-29 13:25:00 [facility] ([facility]) Rehab Team Conference REPORT#:[id number] REPORT STATUS: Signed DATE:08/29/22 TIME: 1325 PATIENT: BRENNAN AHN UNIT #: [id number] ROOM/BED: [place] [address] : 42 AGE: 82 SEX: M ATTEND: Arthur Fuentes MD ADM AUTHOR: Arthur Fuentes MD * ALL edits or amendments must be made on the electronic/computer document * Rehabilitation Team Conference Weekly Team Conference Team conf information: Date of conference: 08/29/22 Conference type: Interim Conference scribe: Ana Cristina Solano PTA INTERDISCIPLINARY TEAM MEETING PARTICIPANTS: TITLE NAME MD Arthur Fuentes, MD BRIDGER Smalls, BRIDGER PT Shay Tristan, PT KEYANNA Garcia OT CM/JOE Forrest CM ST [facility] Ami Hobbs, RESOURCE ROOM TEACHER Staff (8) NO ATTENDEE Staff (9) NO ATTENDEE OTHER NAME CREDENTIALS 1 2 FUNCTIONAL CHANGE: TYPE ADMISSION TOTAL INTERIM TOTAL CHANGE Self care 23 32 9 Transfer 16 22 6 Mobility 11 24 13 Wheelchair distance: Mobility description: BOWEL AND BLADDER STATUS: Bowel continence admission rating: Bladder continence admission rating: Always continent Bowel and bladder team conference update: INCONTINENT OF BOWEL AND BLADDER INTERDISCIPLINARY TEAM UPDATES: VIVIAN team conference update: AAOX3-4 CONFUSED AT TIMES CAN BE IMPLUSIVE ABLE TO SET UP AND FEED SELF 1 PERSON MOD ASSIST WITH DRESS AND HYGINE INCONTINENT OF BOWEL AND BLADDER REMAINS ON TELE STERNAL PRECAUTIONS PT team conference update: PROGRESS: GOOD BARRIERS: COGNITION, ENDURANCE, FALL RISK DME: RW AND W/C D/C: [facility] PRIMARY MODE OF AMBULATION: GAIT 240 FEET, CGA AND W/C 120 FEET, SPV OT team conference update: PROGRESS- FAIR, LIMITED BY COGNITION AND STERNAL PRECAUTONS ADLS ARE INDPENDENT TO MIN A ST team conference update: CM or SW team conference update: DC TO SNF IS PENDING INSURANCE AUTHORIZATION. THE PATIENT REMAINS IMPULSIVE. Other discipline update 1: P.O INTAKE: 25-50% OF A DYS 6 DIET. Other discipline update 2: Other discipline update 3: [...] (4) Twelve steps discharge goal: Not applicable [place] 150 feet discharge goal: Independent (6) Goal 1 - Bowel function: PATIENT WILL REMAIN CONTINENT OF BOWELS WITH BM AT LEAST ONCE EVERY 3 DAYS. Goal 2 - Bladder function: PATIENT WILL REMAIN CONTINENT OF BLADDER-UTILIZING URINAL OR UP TO BATHROOM FOR VOIDING. Nursing goal 3: PATIENT WILL REMAIN FREE FROM SKIN BREAKDOWN. Nursing goal 4: PATIENT WILL REPORT ADEQUATE PAIN CONTROL DURING REHAB STAY. Nursing goal 5: PATIENT WILL BE FROM INJURY AND FALLS DURING REHAB STAY. DISCHARGE PLANNING: Barriers to discharge: Caregiver, Cognition, Endurance, Fall risk Strategies for D/C barriers: Behavioral mod plan, Evaluate sleep patterns, Fall recovery training Estimated length of stay in days: 13 Anticipated discharge date: 08/29/22 Discharge date adjustment comment: PENDING INSURANCE APPROVAL FOR SNF Identified financial and/or community resource needs: Family/Caregiver training days: PATIENT AND FAMILY WILL BE EDUCATED ON USE OF GAIT BELT TO LOWER PT TO THE FLOOR IN THE EVENT OF LOSS OF BALANCE TO PREVENT FALL OR INJURY. FAMILY TRAINING COMPLETED ON 08/25/22 [place] day (DATE): 08/28/22 Expected discharge destination: jail facility Anticipated services upon discharge: Occupational therapy, Physical therapy, Nurses aide, Nursing Anticipated discharge equipment: NONE Impairment group: cardiac disorders NOTE Document ONLY ONE Impairment Group Etiologic diagnosis: CAD MULTIVESSEL A FIB PAROXYSMAL Review of comorbidities: CAD, A FIB, DEMENTIA/ON ELLIQUIS, HTN, CHRONIC KIDNEY DX, POST OP ANEMIA, muscle weakness, unsteady gait, POST OP PULMONARY DYSFUNTION MD Review/Recommendations Attestation: This interdisciplinary team conference was led by me and I concur with all decisions made during the team conference and revisions to the individualized overall plan of care. IRF cont stay criteria See my note at 1325 RPT #:[id number] END OF REPORT [facility] 2022-08-29 13:07:00 [facility] ([facility]) Cardiology Progress Note REPORT#:[id number] REPORT STATUS: Signed DATE:08/29/22 TIME: 1307 PATIENT: BRENNAN AHN UNIT #: [id number] ROOM/BED: [place] [address] : 42 AGE: 82 SEX: M ATTEND: Arthur Fuetnes MD ADM AUTHOR: Catrina Shetty * ALL edits or amendments must be made on the electronic/computer document * Subjective Patient reports: No: complaints. Objective General VS/I O: 24 hour I O ending at 0700: [...] 2105 36.5 97 19 134/54 80.5 95 08/288 36.6 82 18 154/82 106.2 97 03/27 2046 98 Room air 21 27 1929 36.5 74 17 127/71 89.4 96 08/28 1541 36.7 69 18 148/79 102.3 93 Room air PATIENT WEIGHT: Weight (lb): 221 Weight (oz): 9.03 Weight (kg): 100.500 Medications: Active Meds + DC'd Last 24 Hrs Amiodarone HCl (CORDARONE) 200 MG DAILY PO [...] Sodium (COLACE) 100 MG BID PO Ipratropium [place] (ATROVENT) 500 MCG RTQ6H INH Sennosides (Senna Lax 8.6 MG TABLET) 17.2 MG BEDTIME PO Hydralazine HCl (APRESOLINE) 10 MG Q6H PRN PRN IV Acetaminophen (TYLENOL) 650 MG Q4H PRN PRN PO Ipratropium [place] (ATROVENT) 500 MCG RTQ2H PRN PRN INH Melatonin (Melatonin) 6 MG BEDTIME PRN PO Ondansetron HCl (ZOFRAN ODT) 4 MG TID PRN PRN SL Physical Exam General appearance: alert, awake, no acute distress Neck: non-tender, no JVD Cardiovascular: CV assessment: irregularly irregular Respiratory: decreased breath sounds, no distress Abdomen: soft, non-tender, normal bowel sounds, no distention Genitourinary: no flank pain, no urinary catheter Lower extremity: LE assessment: no edema Musculoskeletal: normal inspection Neuro/GATE GUARD: alert Skin: dry Psychiatry: normal affect, normal mood Results Findings/Data: Laboratory Tests 08/29 0510 Serology SARS-CoV-2 Ag (Rapid) (Negative) Negative Results: no new labs, vital signs reviewed, rhythm personally rev'd Telemetry Interpretation: afib with controlled rate Diagnosis, Assessment Plan Plan discussed with: patient, nurse Free Text DxA P Notes Free Text DxA P Notes: 82 YO male with MHX of Afib, HTN, HLD, CAD who is s/p 5 vessel CABG and PVI and ALAA. The patient is transferred to [facility] for inpatient rehabilitation. We are consulted for continuity of cardiac-related care. 1. CAD s/p CABG x 5 (NGUYEN-LAD, SVG-Olga Lidia, SVG-OM, SVG-LPLA, SVG-PDA) continue asa, BB, plavix, Zetia echo 08/12- LVEF 50-54%, left pleural effusion intolerant of statin, will consider nonstatin med such as Repatha or Nexletol outpatient 2. A-fib: Paroxysmal - rate controlled s/p PVI and ARISTEO amputation decrease amiodarone to 200 mg daily - DC prior to discharge Continue low-dose metoprolol 12.5 mg BID no need for AC since left atrial appendage was removed during CABG 3. HTN BP stable on midodrine Continue low-dose metoprolol 12.5 mg BID 4. LADARIUS nephrology following 5. Dizziness 2/2 orthostatic hypotension midodrine for orthostatic hypotension compression stocking and abdominal binder before OOB dizziness resolved 6. s/p Fall 08/22 and 08/24 CT head no acute finding R Elbow XR - no fracture L rib XR -healing fractures of the left lateral seventh and eighth ribs continue supportive care Plan for DC to SNF outpatient follow-up with Dr. Sanchez - d/w granddaughter at 1540 at 1402 [facility] #:[id number] END OF REPORT [facility] 2022-08-29 11:33:00 [facility] ([facility]) Nephrology Progress Note REPORT#:[id number] REPORT STATUS: Signed DATE:08/29/22 TIME: 1133 PATIENT: BRENNAN AHN UNIT #: [id number] ROOM/BED: [place] [address] : 42 AGE: 82 SEX: M ATTEND: Arthur Fuentes MD ADM AUTHOR: Maura Terrazas MD * ALL edits or amendments must be made on the electronic/computer document * Subjective Chief complaint: chest pain HPI: 82-year-old male known to have hypertension, atrial fibrillation, supraventricular tachycardia with requiring ablation presenting with multivessel cardiovascular disease and he underwent CABG 07/13/2022. He endorsed having kidney issues in the past and seeing a progress man at [place] but his kidney function had been stable since then.He developed oliguria,LADARIUS and hypervolemia post CABG but had now improved and was transferred to rehab. 08/28 Patient appearing comfortable, he denied dizziness, SOB, nausea, orthopnea, cramping. Objective General VS/I O: Vital Signs: Date Time Temp Pulse Resp [...] Output, Urine 200 PATIENT WEIGHT: Weight (lb): 221 Weight (oz): 9.03 Weight (kg): 100.500 Physical Exam General appearance: alert, awake, oriented Head/eyes: atraumatic, clear cornea, EOMI ENT: moist mucous membranes, normal nose Neck: no JVD, no masses or swelling Cardiovascular: normal heart sounds, regular rate and rhythm Respiratory: aerating well, clear to auscultation Abdomen: non-tender, soft Genitourinary: no bladder distention, no flank pain Extremities: no edema, no gangrene, no swelling Diagnosis, Assessment Plan Free Text A P: 82-year-old male known to have hypertension, atrial fibrillation, supraventricular tachycardia with requiring ablation presenting with multivessel cardiovascular disease and he underwent CABG 07/13/2022. Transferred [...] recently had surgery. Resolving with better hemodynamics. His kidney function was stable plan was to [...] stable renal function. Plan to keepMAP>65 and avoid nephrotoxic agents. He was following progress man in [place] so plan to refer to his progress man post discharge. 2. Hypervolemia:Patient at high risk of volume overload so would reccommend lasix PO, lasix held due to hypotension .Volume improving slowly. 3. Electrolytes: His electrolytes appear to be in normal range plan is to monitor and replace as needed. 4. Hypotension: Midodrine dose increased .Plan to monitor. 08/24 1. LADARIUS on CKD: Patient with stable renal function. Plan to keepMAP>65 and avoid nephrotoxic agents. He was following progress man in [place] so plan to refer to his progress man post discharge. 2. Hypervolemia:Patient at high risk of volume overload so would reccommend lasix PO, lasix held due to hypotension .Volume stable. 3. Electrolytes: His electrolytes appear to be in normal range plan is to monitor and replace as needed. 4. Hypotension: Midodrine dose increased .Plan to monitor and increase midodrine if SBP<110. 08/29 1. LADARIUS on CKD: Patient with stable renal function. Plan to keepMAP>65 and avoid nephrotoxic agents. He was following progress man in [place] so plan to refer to his progress man post discharge. 2. Hypervolemia: .Volume stable.Plan to give lasix PRN . 3. Electrolytes: His electrolytes appear to be in normal range plan is to monitor and replace as needed. 4. Hypotension: Midodrine dose increased .Plan to monitor and increase midodrine if SBP<110. Consultants: cardiology, cardiovascular surgery, hospitalist, nephrology at 1058 RPT #:[id number] END OF REPORT [facility] 2022-08-29 08:55:00 [facility] ([facility] Rehab Progress Note REPORT#:[id number] REPORT STATUS: Signed DATE:08/29/22 TIME: 08 PATIENT: BRENNAN AHN UNIT #: [id number] ROOM/BED: [place] [address] : 42 AGE: 82 SEX: M ATTEND: Arthur Fuentes MD ADM AUTHOR: Arthur Fuentes MD * ALL edits or amendments must be made on the electronic/computer document * Subjective Chief complaint: Rehab follow-up Doing better Still requires sitter NAD Eating well + BM Denies MORA/N/V/D/CP 14 systems reviewed and neg. except that above. History of present illness: 82-year-old male with PMH of Alzheimer's dementia, CKD, HTN, atrial fibrillation , history of SVT/ablation who was transferred to [facility] after being found to have multivessel coronary artery disease. Patient initially with was at home and developed chest pains. He was brought to [facility] and underwent left heart cath which revealed [...] of function was independent. Currently patient has generalized weakness. He lives by himself in a one-step up house. He denies any shortness of breath, nausea, vomiting, fever, chills. Denies chest pain. He is complaining of some constipation. He tells me that is in the process of selling his home. Preadmission screen was completed. Patient admitted to IRF. Objective General VS: Vital Signs: Date Time Temp Pulse Resp [...] Room air 08/29 0229 99 Room air 21 03/28 0002 97.9 96 18 102/50 67.5 93 08/284 97.3 78 18 122/67 85.1 97 08/28 2351 98.4 68 16 126/73 90.8 97 08/28 2104 97.7 97 19 134/54 80.5 95 08/28 2057 97.9 82 18 154/82 106.2 97 08/28 2046 98 Room air 21 08/28 1929 97.7 74 17 127/71 89.4 96 08/28 1541 98.1 69 18 148/79 102.3 93 Room air 08/28 1120 86 17 142/68 0.0 97 Room air PATIENT WEIGHT: Weight (lb): 221 Weight (oz): 9.03 Weight (kg): 100.500 Medications: Active Meds + DC'd Last 24 Hrs Amiodarone HCl (CORDARONE) 200 MG DAILY PO [...] Sodium (COLACE) 100 MG BID PO Ipratropium [place] (ATROVENT) 500 MCG RTQ6H INH Sennosides (Senna Lax 8.6 MG TABLET) 17.2 MG BEDTIME PO Hydralazine HCl (APRESOLINE) 10 MG Q6H PRN PRN IV Acetaminophen (TYLENOL) 650 MG Q4H PRN PRN PO Ipratropium [place] (ATROVENT) 500 MCG RTQ2H PRN PRN INH Melatonin (Melatonin) 6 MG BEDTIME PRN PO Ondansetron HCl (ZOFRAN ODT) 4 MG TID PRN PRN SL Functional Progress Functional progress: - - PT SPECIFIC EVAL AND [...] PERFORMED STANDING HR, MARCHES, AND HIP FLEXION ( X30 REPS, #2, CGA). A: PT WEARING BINDER AND BP TAKEN PRIOR TO TX: SITTING 145/74 MMHG AND STANDING 109/74 MMHG. PT REQUIRES MUTIPLE REST INTERVALS SECONDARY TO FATIGUE. PT REQUESTED TO USE THE RESTROOM, HAVING A BOWEL MOVEMENT, TAKING TIME. PT REQUIRES MOD POSTURAL CUES TO DECREASE FORWARD HEAD POSTURE AND TO KEEP RW NEARBY DURING GAIT. PT EXHIBITS UNSTEADINESS DURING STANDING EX. PT PERFORMED EX TO INCREASE STRENGTH AND ENDURANCE. PT MAKING STEADY PROGRESS TOWARDS GOALS. P: CONTINUE WITH POC. Physical Exam General appearance: alert, awake, no acute distress Psych: alert, normal affect, oriented x 3 HEENT: anicteric, mucosal membranes moist, pupils reactive to light, sclera clear Neck: non-tender, supple, no JVD Cardiovascular: irregular rhythm, S1/S2, cap refill wnl, pulses intact Respiratory: diminished breath sounds, on oxygen, aerating well Abdomen: bowel sounds present, non-distended, soft, non-tender Skin: dry, normal temperature, no rash, bruising R thigh, mild L thigh, BUE, R hand Sl tender/edema, sternum incision RSH site CDI, bruising L chest wall, mildly tender, R elbow abrasion Musculoskeletal - general: Musculoskeletal - general: OA changes, normal tone, no swelling, Moves all 4 exts AG, calves NT, no cords, Homans neg Neuro/GATE GUARD: alert, oriented X 3, CNII-XII intact, normal speech, no motor deficits, no sensory deficits Results Findings/Data: Laboratory Tests: 08/29 05 Serology SARS-CoV-2 Ag (Rapid) (Negative) Negative Laboratory [...] Serology SARS-CoV-2 Ag (Rapid) (Negative) Negative Radiology data: Recent Impressions: ULTRASOUND - US RETROPERITONEAL COM 08/28 1300 Report Impression - Status: SIGNED Entered: 08/28/2022 1417 IMPRESSION: Bilateral renal simple cysts not necessitating follow-up. Impression By: Miriam - Aniket Loredo M.D. Diagnosis, Assessment Plan Problem List/A P: 1. CAD (coronary artery disease) 2. Afib 3. HTN (hypertension) 4. S/P CABG x 5 5. Impaired functional mobility, balance, gait, and endurance Free Text A P: Assessment: Multivessel CAD 08/10: S/p CABG x5-Dr. Josephine Loredo-fib s/p a ARISTEO Endoscopic RGSV harvest 08/16: Echo-EF 50-54%, small pericardial effusion Small bilateral pleural effusions. Muscle weakness Unsteady gait Alzheimer's dementia (as per family), poor memory Postoperative anemia LADARIUS on CKD HTN Impairment in self-care, ADLs and functional mobility Plan: -Continue PT/OT -Case management for safe discharge planning. -Decubitus prevention-protective hydrating lotion-turn every 2 hours-offload -Bowel program-MiraLAX, senna -Nutrition, monitor the patient's p.o. intake, check albumin 3.5, 3.2 and prealbumin 14.3, 12, dietary consult, protein supplements. Cardiac diet. BMI above normal parameters. Working with dietary, follow up with PCP -Strict fall and safety precaution -DVT prophylaxis-SCDs -GI prophylaxis on Protonix -CAD on Plavix and aspirin, intolerant to statins -Pulmonary toilet frequent I-S, nebs, wean O2 -Early mobilization-OOB to chair -Work on bed mobility, transfer training, ADLs, pre-gait and gait exercises as tolerable. -Increase endurance and strength -Pain management -Postop care as per CVS -Monitor telemetry -Cardiology on case -LADARIUS as per nephrology-He was following progress man in [place] so plan to refer to his progress man post discharge. -Dementia/confusion-Higher level of nursing care and monitoring for safety -Strict sternal precautions-patient with poor carryover of sternal precautions -Monitor sites of bruising and right hand pain-from previous phlebotomy sites-no signs of infection -Anemia-vitamin B12 and ferrous sulfate -HTN-BP stable-orthostasis/dizziness-di uretics reduced-midodrine 5 mg twice daily-use ENZO hose and abdominal binder when out of bed-monitor. Medications being monitored by cardiology -Removed sutures x2 from lower chest on 08/25-healed -Follow-up with PCP for dementia evaluation -Dysuria-UA negative-completed Pyridium-symptoms resolved -08/22: Fall: Seen by trauma team after fall. CT head negative. Right shoulder x -ray negative for fracture. Patient patient appears to be at his baseline -08/24: Fall-no head injury-left rib pain-left rib film-no acute fractures, healing fractures of the left lateral 7th and 8th ribs. Small left pleural effusion-Lidoderm patch-monitor -R elbow hurting more. 2 view R elbow x ray-no acute fracture-Lidoderm patch- pain management -Stable cardiac status -08/28 retroperitoneal ultrasound-bilateral renal simple cysts-no follow-up needed -Labs reviewed-WBC normal, hemoglobin 9.1, 8.9, 9.7 platelets stable, creatinine 1.9, 2.2, 1.9, 1.8 magnesium normal, HgbA1C 5.2. -Advance therapies as tolerable -Case discussed with son -1:1 sitter due to multiple falls -Patient still has orthostasis with binder and ENZO hose. Midodrine dose increased. Requires multiple rest breaks. Patient ambulated with rolling walker 200 feet with contact-guard assist. -Team conference -remote sensing program manager checking on authorization for [facility] PM R Please see team note. Plan and goals discussed with the patient. I agree with the teams finding ELOS: [08/30 pending SNF acceptance] DC-SNF placement-awaiting insurance authorization for [facility] DME-bedside commode, rolling walker Total time was 34 minutes > 50% with patient performing physical examination, discussing with patient and son about removing sitter, fall precaustions, discharge plans, sternal precautions, plan of care, goals, therapies, progress, medications, labs. All questions answered Orders: Procedure Date/time Status NEB TREATMENT SUBSQ 08/29 0744 Active 1:1 Sitter 08/29 0706 Active OT FUNCTIONAL TRN 15 MIN 08/29 UNK Complete OT EXERCISE 15MIN 08/29 UNK Complete OT ADL 08/29 UNK Complete NEB TREATMENT SUBSQ 08/28 6679 Complete Consultants: cardiology, cardiovascular surgery, hospitalist, nephrology Rehab attestation: Face to face exam completed. Treatment plan discussed with patient. Meets continued stay criteria. Agree with interdisciplinary treatment plan. at 1325 RPT #:[id number] END OF REPORT [facility] 2022-08-28 14:55:00 [facility] ([facility] Cardiology Progress Note REPORT#:[id number] REPORT STATUS: Signed DATE:08/28/22 TIME: 1455 PATIENT: BRENNAN AHN UNIT #: [id number] ROOM/BED: [place] [address] : 42 AGE: 82 SEX: M ATTEND: Arthur Fuentes MD ADM AUTHOR: Catrina ShettyCNP * ALL edits or amendments must be made on the electronic/computer document * Subjective Patient reports: No: complaints. Objective General VS/I O: 24 hour I O ending at 0700: [...] 1941 36.9 80 14 116/64 81.6 96 PATIENT WEIGHT: Weight (lb): 221 Weight (oz): 9.03 Weight (kg): 100.500 Medications: Active Meds + DC'd Last 24 Hrs Midodrine (PROAMATINE) 5 MG BID 9A 5P [...] Sodium (COLACE) 100 MG BID PO Ipratropium [place] (ATROVENT) 500 MCG RTQ6H INH Sennosides (Senna Lax 8.6 MG TABLET) 17.2 MG BEDTIME PO Hydralazine HCl (APRESOLINE) 10 MG Q6H PRN PRN IV Acetaminophen (TYLENOL) 650 MG Q4H PRN PRN PO Ipratropium [place] (ATROVENT) 500 MCG RTQ2H PRN PRN INH Melatonin (Melatonin) 6 MG BEDTIME PRN PO Ondansetron HCl (ZOFRAN ODT) 4 MG TID PRN PRN SL Physical Exam General appearance: alert, awake Neck: non-tender, no JVD Cardiovascular: CV assessment: irregularly irregular Respiratory: decreased breath sounds, no distress Abdomen: soft, non-tender, normal bowel sounds, no distention Genitourinary: no flank pain, no urinary catheter Lower extremity: LE assessment: edema (trace edema RLE - harvest site), no edema Musculoskeletal: normal inspection Neuro/GATE GUARD: alert Skin: dry Psychiatry: normal affect, normal mood Results Findings/Data: Laboratory Tests 08/28 0618 Chemistry Albumin (3.4 - 5.0 g/dL) 3.20 L Prealbumin (16.0 - 40.0 mg/dL) 12.0 L Radiology data: Recent Impressions: ULTRASOUND - US RETROPERITONEAL COM 08/28 1300 Report Impression - Status: SIGNED Entered: 08/28/2022 1417 IMPRESSION: Bilateral renal simple cysts not necessitating follow-up. Impression By: Miriam Loredo M.D. Telemetry Interpretation: afib with controlled rate Diagnosis, Assessment Plan Plan discussed with: nurse Free Text DxA P Notes Free Text DxA P Notes: 82 YO male with MHX of Afib, HTN, HLD, CAD who is s/p 5 vessel CABG and PVI and ALAA. The patient is transferred to [facility] for inpatient rehabilitation. We are consulted for continuity of cardiac-related care. 1. CAD s/p CABG x 5 (NGUYEN-LAD, SVG-Olga Lidia, SVG-OM, SVG-LPLA, SVG-PDA) continue asa, BB, plavix, Zetia echo 08/12- LVEF 50-54%, left pleural effusion intolerant of statin, will consider nonstatin med such as Repatha or Nexletol outpatient 2. A-fib: Paroxysmal - rate controlled s/p PVI and ARISTEO amputation decrease amiodarone to 200 mg daily - DC prior to discharge Continue low-dose metoprolol to 12.5 mg BID no need for AC since left atrial appendage was removed during CABG 3. HTN BP stable Continue low-dose metoprolol to 12.5 mg BID 4. LADARIUS nephrology following 5. Dizziness 2/2 orthostatic hypotension midodrine for orthostatic hypotension compression stocking and abdominal binder before OOB Taken off Lasix, will re-assess need for diuretic on a daily basis 6. s/p Fall 08/22 and 08/24 CT head no acute finding R Elbow XR - no fracture L rib XR -healing fractures of the left lateral seventh and eighth ribs continue supportive care at 1656 at 1402 RPT #:[id number] END OF REPORT [facility] 2022-08-28 13:41:00 [facility] Internal Medicine Prog. Note REPORT#:[id number] REPORT STATUS: Signed DATE:08/28/22 TIME: 1341 PATIENT: BRENNAN AHN UNIT #: [id number] ROOM/BED: [place] [address] : 42 AGE: 82 SEX: M ATTEND: Arthur Fuentes MD ADM AUTHOR: Devin Fox DO * ALL edits or amendments must be made on the electronic/computer document * Subjective Chief complaint: pt c/o of some cough and pain in SS chest as a result Review of Systems All systems rev neg: except as marked Objective General VS/I O: Vital Signs Date Temp Pulse Resp B/P B/P [...] Output, Urine 600 PATIENT WEIGHT: Weight (lb): 221 Weight (oz): 9.03 Weight (kg): 100.500 Medications: Active Meds + DC'd Last 24 Hrs Midodrine (PROAMATINE) 5 MG BID 9A 5P [...] Sodium (COLACE) 100 MG BID PO Ipratropium [place] (ATROVENT) 500 MCG RTQ6H INH Sennosides (Senna Lax 8.6 MG TABLET) 17.2 MG BEDTIME PO Hydralazine HCl (APRESOLINE) 10 MG Q6H PRN PRN IV Acetaminophen (TYLENOL) 650 MG Q4H PRN PRN PO Ipratropium [place] (ATROVENT) 500 MCG RTQ2H PRN PRN INH Melatonin (Melatonin) 6 MG BEDTIME PRN PO Ondansetron HCl (ZOFRAN ODT) 4 MG TID PRN PRN SL Physical Exam General appearance: alert, awake, oriented Head/Eyes: EOMI, PERRLA Neck: non-tender, no JVD Cardiovascular: normal heart sounds, regular rate rhythm Respiratory: aerating well, clear to auscultation Abdomen: non-tender, normal bowel sounds Extremities: Extremities: no cyanosis, no edema Neuro/GATE GUARD: alert, oriented x 3, CNII-XII intact Skin: ecchymosis (l chest) Results Findings/Data: Laboratory Tests 08/28 0618 Chemistry Albumin (3.4 - 5.0 g/dL) 3.20 L Prealbumin (16.0 - 40.0 mg/dL) 12.0 L Diagnosis, Assessment Plan Hospital course to date: 82-year-old male with past medical history of hypertension, atrial fibrillation, supraventricular tachycardia status post ablation who was admitted with reports of multivessel coronary artery disease found on a cardiac catheterization done at [facility]. Patient was transferred to [facility] for CABG. He underwent [id number]. 1. Coronary artery disease -Status post CABG x5, ALAA, PVI -Continue metoprolol, Plavix, aspirin 2. Atrial fibrillation -Continue po amiodarone for rate control - taper AMIO per cards -Continue metoprolol -Monitor and review telemetry 3. Debility/ -.-PT/OT - PMR - Inpt Rehab 4. ARF - Trend cr 1.3-1.9-2.2-2.0-1.9-2.2 - post op, post lasix therefore likely pre-renal - baseline CKD is suspected - nephro consulted 5. anemia - acute, post op expecteed - monitor and transfuse if hg <7 - cont po Iron - Trend Hg 9.1 6. Delirium/ dementia -Likely due to sundowning/dementia -Monitor closely -Patient is neurologically intact 7. FALLs - 08/22, 08/24 - ct head neg - R shoulder Xr neg - R elbow pain- mild- pain meds prn - sitter at bedside 8. Dysuria - UA neg - on pyridium prn - consider Urologist consult 9. Orthostatic hypotension - cont Midodrine and adjust up - check orthostatic VS- mild orthostasis 10. RIB fx - 08/24 Left RIb xr -HEALING L 7th and 8th rib fractures- unknown chronicity - ribs fractures show "healing" ALREADY d/w RN and Pt and son in details total time spent 35mins d/w SON Consultants: cardiology, cardiovascular surgery, hospitalist, nephrology Quality: Gen Med Crit Care Current Medications Current medication review: I attest that the foregoing medication list in the medical record is true, accurate, and complete to the best of my knowledge. Advanced Care Plan 65 or Older Discussed with: patient Discussion included: code status at 0917 RPT #:[id number] END OF REPORT [facility] 2022-08-28 12:37:00 [facility] Cardiothoracic Surgery Prog REPORT#:[id number] REPORT STATUS: Signed DATE:08/28/22 TIME: 1237 PATIENT: BRENNAN AHN UNIT #: [id number] ROOM/BED: [place] [address] : 42 AGE: 82 SEX: M ATTEND: Arthur Fuentes MD ADM AUTHOR: Pamela Burnette Physic * ALL edits or amendments must be made on the electronic/computer document * General Status post: CABG PVI Subjective Chief complaint: Follow up CABG Review of Systems Constitutional: Denies: chills, fever, malaise. Allergy/Immun: Denies: allergic reaction. ENT: Denies: sore throat. Respiratory: Denies: hemoptysis, SOB. GI: Denies: nausea, vomiting. Heme: Denies: bleeding. Neuro: Denies: headache. All systems rev neg: except as marked Objective General VS/I O Last Documented: Result Date Time Pulse Ox [...] Output, Urine 600 PATIENT WEIGHT: Weight (lb): 221 Weight (oz): 9.03 Weight (kg): 100.500 Physical Exam General appearance: alert, awake, oriented Wound/incision: Location: sternum HEENT: anicteric Cardiovascular: normal heart sounds, regular rate rhythm Respiratory: aerating well, clear to auscultation, symmetric expansion, no distress Abdomen: soft, non-tender, no distention Extremities: moves all Neuro/GATE GUARD: alert, oriented X 3, normal speech, no motor deficits Psychiatry: normal affect, normal mood Quality: Trauma Gen Surg Advanced Care Plan 65 or Older Discussed with: patient Discussion included: code status Current Medications Current medication review: I attest that the foregoing medication list in the medical record is true, accurate, and complete to the best of my knowledge. Diagnosis, Assessment Plan Hospital course to date: Hospital course to date: 82 year old with PMH of hypertension, atrial fibrillation, On Eliquis, Hx of SVT ablation 20 years ago transferred to [facility] with new findings of multi-vessel CAD. He reports he was woken from Sleep on Sunday AM with COmplaints of chest pains. EMS aas called and patient was taken to [facility]. He underwent LHC and found to have multi-vessel CAD by Dr Sanchez. Patient was transferred to [facility] for CABG. Patient lives independently. Daughter is at bedside. Patient reports last dose of Elliquis was Sunday AM. Echo was done at [facility] showing EF 55%, Mild MR, Mild AI, mild LVH. According to his records, he has a hx of Chronic kidney disease with baseline Creatine reportedly 1.5. He does report he has seen a renal MD in the past. Assessment/ Plan 1) CAD, Mutli-vessel 2) hypertension Continue BBLKR Add Norvasc 5 mg 3) Atrial fibrillation. Last dose of Eliquis Sunday AM Obtain EKG 4) BPH Continue flomax Workup for CABG underway. Patient was seen and examined by Dr Dee. Coronary artery bypass surgery was discussed with the patient. The risk of the operation, including the STS score, cristian of blleding, infection, heart attack, stroke, Tracheostomy etc discussed with the patient. CT chest, carotid US, Vein mapping ordered. 08/11/22 POD 1 s/p CABG x 5 (NGUYEN-LAD, SVG-Olga Lidia, SVG-OM, SVG-LPLA, SVG-PDA), PVI, ALAA, EVH (RGSV) Patient hemodynamically stable this morning, having episodes of vagal response and BP drops 20 points, SR and sinus arrythmnia noted on nuclear monitoring technician, V epicardial wires on backup rate of 50 Amiodarone bolus and drip Keep MS chest tube and monitor outputs, DC LP chest tube after ambulation Minimal oxygen requirements on 2l nasal cannula, encourage deep breathing and I- S use CXR and labs reviewed Pain management Glycemic control on insulin drip Cardiac diet, nutritional supplements Bowel regimen, + gas Strict I Os, daily weights, albmuin x 1 given for decreased UOP- monitor hourly SCDs for DVT and PPI for GI prophylaxis PT/OT Monitor patient closely in CVICU, continue supportive care Patient seen with Dr. Dee, plan of care discussed with ICU team. 08/12 Alert and oriented, up in the chair Remains on amiodarone drip for A-fib Wean dopamine off Chest x-ray reviewed. Breathing comfortably on room air Creatinine increased to 1.9, urine output 1.5 L last night after the boluses of Lasix Repeat renal panel today show creatinine 2.2. Nephrology consulted, hold off on additional Lasix Replace electrolytes Encourage I-S and mobilization Glycemic controlled Keep in CVICU for close monitoring Patient seen and plan reviewed with Dr Piper, Dr Kirkpatrick, [facility] and multidisciplinary team 08/13 Intermittently confused. Continue delirium precautions Minimal O2 requirements, wean O2 as tolerated Allow for permissive hypertension as urine output improved with higher blood pressure Monitor renal function Encourage p.o. intake, bowel regimen Remains in A-fib, heart rate fairly controlled. Amiodarone drip at 0.5 Discontinue mediastinal chest tube Glycemic control Keep in CVICU for close monitoring. Patient seen and plan reviewed with MCKAYLA Armenta multidisciplinary team Family updated at the bedside 08/14 Patient is alert and oriented, delirium precautions O2 requirements, encourage I-S Permissive hypertension for better renal perfusion Creatinine trending down, good urine output. Hold Lasix for now Encourage p.o. intake, bowel regimen Electrolyte replacement as needed Keep in CVICU today Plan for rehab. Awaiting insurance approval Patient was seen and plan reviewed with MCKAYLA Rojo and multidisciplinary team 08/15 No major events overnight Resp status stable on RA. Encourage IS HD stable. Remains in A fib, HR controlled Continue PO amio, BB increased to 25 mg BID Renal function improved, good UOP Will DC pacing wires tomorrow PT/OT Plan for rehab. Awaiting insurance approval Patient was seen and plan reviewed with MCKAYLA Rojo and multidisciplinary team 08/16 Creatine 1.9--> 2.0- Followed by Renal. appreciate input. DE-LINED. Longo out Ambulating. UO: PO lasix today. Cardiac: Atrial fib- rate controlled. On po amio- Pacing wires removed- Echo ordered. DVT studies orderd. Respiratory: On room air. Small left pleural effsuion. GI: + BM : Voiding well. Renal following Dispo: Rehab when bed available. 08/17 Patient resting comfortable. Seen in inpatient rehab. Ambulating well. Working with PT Voiding well. Positive bowel movements. Respiratory on room air. Cardiac: Sinus rhythm. Will decrease amiod to 200 BID GI: + BM Continue pT/OT making good progress. 08/21 Patient seen in rehab Respiratory status stable on RA No changes in sternal incision. Continue sternal precautions for 6 weeks Monitor renal function. Diuresis by nephrology Encourge PO intake, bowel regimen Continue rehab 08/24 S/p fall on 08/22, CT negative for acute process Patient was having orthostatic hypotension, medications adjusted, midodrine 5 mg 3 times daily, compression stockings and abdominal binder before out of bed Volume status improved. Lasix discontinued No further episodes of orthostatic hypotension today Continue rehab 08/28/22 Patient had mutliple falls in rehab. CT head negatvie for acute process. Compression stockings and abdominal binder in place. BP appears improved. On midodrine 5 mg BID Volume status imporved. Consultants: cardiology, cardiovascular surgery, hospitalist, nephrology at 1242 RPT #:[id number] END OF REPORT [facility] 2022-08-28 11:14:00 [facility] ([facility]) Nephrology Progress Note REPORT#:[id number] REPORT STATUS: Signed DATE:08/28/22 TIME: 1114 PATIENT: BRENNAN AHN UNIT #: [id number] ROOM/BED: [place] [address] : 42 AGE: 82 SEX: M ATTEND: Arthur Fuentes MD ADM AUTHOR: Maura Terrazas MD * ALL edits or amendments must be made on the electronic/computer document * Subjective Chief complaint: chest pain HPI: 82-year-old male known to have hypertension, atrial fibrillation, supraventricular tachycardia with requiring ablation presenting with multivessel cardiovascular disease and he underwent CABG 07/13/2022. He endorsed having kidney issues in the past and seeing a progress man at [place] but his kidney function had been stable since then.He developed oliguria,LADARIUS and hypervolemia post CABG but had now improved and was transferred to rehab. 08/28 Patient appearing comfortable, sleeping comfortably, nurse reporting that he was eating well. Objective General VS/I O: Vital Signs: Date Time Temp Pulse Resp [...] Room air 08/29 0229 99 Room air 21 08/29 0002 36.6 96 18 102/50 67.5 93 08/28 2354 36.3 78 18 122/67 85.1 97 08/28 2351 36.9 68 16 126/73 90.8 97 08/28 210 36.5 97 19 134/54 80.5 95 08/28 2057 36.6 82 18 154/82 106.2 97 08/286 98 Room air 21 08/289 36.5 74 17 127/71 89.4 96 08/28 1541 36.7 69 18 148/79 102.3 93 Room air 24 hour I O ending at 0700: 08/29 0700 08/28 1900 Intake Total 715 Output Total Balance 715 Intake, Oral 715 PATIENT WEIGHT: Weight (lb): 221 Weight (oz): 9.03 Weight (kg): 100.500 Physical Exam General appearance: sleeping comfortably Head/eyes: atraumatic, clear cornea, EOMI ENT: moist mucous membranes, normal nose Neck: no JVD, no masses or swelling Cardiovascular: normal heart sounds, regular rate and rhythm Respiratory: aerating well, clear to auscultation Abdomen: non-tender, soft Genitourinary: no bladder distention, no flank pain Extremities: no edema, no gangrene, no swelling Diagnosis, Assessment Plan Free Text A P: 82-year-old male known to have hypertension, atrial fibrillation, supraventricular tachycardia with requiring ablation presenting with multivessel cardiovascular disease and he underwent CABG 07/13/2022. Transferred [...] recently had surgery. Resolving with better hemodynamics. His kidney function was stable plan was to [...] stable renal function. Plan to keepMAP>65 and avoid nephrotoxic agents. He was following progress man in [place] so plan to refer to his progress man post discharge. 2. Hypervolemia:Patient at high risk of volume overload so would reccommend lasix PO, lasix held due to hypotension .Volume improving slowly. 3. Electrolytes: His electrolytes appear to be in normal range plan is to monitor and replace as needed. 4. Hypotension: Midodrine dose increased .Plan to monitor. 08/24 1. LADARIUS on CKD: Patient with stable renal function. Plan to keepMAP>65 and avoid nephrotoxic agents. He was following progress man in [place] so plan to refer to his progress man post discharge. 2. Hypervolemia:Patient at high risk of volume overload so would reccommend lasix PO, lasix held due to hypotension .Volume stable. 3. Electrolytes: His electrolytes appear to be in normal range plan is to monitor and replace as needed. 4. Hypotension: Midodrine dose increased .Plan to monitor and increase midodrine if SBP<110. 08/28 1. LADARIUS on CKD: Patient with stable renal function. Plan to keepMAP>65 and avoid nephrotoxic agents. He was following progress man in [place] so plan to refer to his progress man post discharge. 2. Hypervolemia: .Volume stable.Plan to give lasix PRN . 3. Electrolytes: His electrolytes appear to be in normal range plan is to monitor and replace as needed. 4. Hypotension: Midodrine dose increased .Plan to monitor and increase midodrine if SBP<110. Consultants: cardiology, cardiovascular surgery, hospitalist, nephrology at 1133 RPT #:[id number] END OF REPORT [facility] 2022-08-28 11:01:00 [facility] ([facility]) Nephrology Progress Note REPORT#:[id number] REPORT STATUS: Signed DATE:08/28/22 TIME: 1101 PATIENT: BRENNAN AHN UNIT #: [id number] ROOM/BED: [place] [address] : 42 AGE: 82 SEX: M ATTEND: Arthur Fuentes MD ADM AUTHOR: Maura Terrazas MD * ALL edits or amendments must be made on the electronic/computer document * Subjective Chief complaint: chest pain HPI: 82-year-old male known to have hypertension, atrial fibrillation, supraventricular tachycardia with requiring ablation presenting with multivessel cardiovascular disease and he underwent CABG 07/13/2022. He endorsed having kidney issues in the past and seeing a progress man at [place] but his kidney function had been stable since then.He developed oliguria,LADARIUS and hypervolemia post CABG but had now improved and was transferred to rehab. 08/27 Patient appearing comfortable, sleeping comfortably, nurse reporting that he was eating well. Objective General VS/I O: Vital Signs: Date Time Temp Pulse Resp [...] Output, Urine 600 PATIENT WEIGHT: Weight (lb): 221 Weight (oz): 9.03 Weight (kg): 100.500 Physical Exam General appearance: sleeping comfortably Head/eyes: atraumatic, clear cornea, EOMI ENT: moist mucous membranes, normal nose Neck: no JVD, no masses or swelling Cardiovascular: normal heart sounds, regular rate and rhythm Respiratory: aerating well, clear to auscultation Abdomen: non-tender, soft Genitourinary: no bladder distention, no flank pain Extremities: no edema, no gangrene, no swelling Diagnosis, Assessment Plan Free Text A P: 82-year-old male known to have hypertension, atrial fibrillation, supraventricular tachycardia with requiring ablation presenting with multivessel cardiovascular disease and he underwent CABG 07/13/2022. Transferred [...] recently had surgery. Resolving with better hemodynamics. His kidney function was stable plan was to [...] stable renal function. Plan to keepMAP>65 and avoid nephrotoxic agents. He was following progress man in [place] so plan to refer to his progress man post discharge. 2. Hypervolemia:Patient at high risk of volume overload so would reccommend lasix PO, lasix held due to hypotension .Volume improving slowly. 3. Electrolytes: His electrolytes appear to be in normal range plan is to monitor and replace as needed. 4. Hypotension: Midodrine dose increased .Plan to monitor. 08/24 1. LADARIUS on CKD: Patient with stable renal function. Plan to keepMAP>65 and avoid nephrotoxic agents. He was following progress man in [place] so plan to refer to his progress man post discharge. 2. Hypervolemia:Patient at high risk of volume overload so would reccommend lasix PO, lasix held due to hypotension .Volume stable. 3. Electrolytes: His electrolytes appear to be in normal range plan is to monitor and replace as needed. 4. Hypotension: Midodrine dose increased .Plan to monitor and increase midodrine if SBP<110. 08/27 1. LADARIUS on CKD: Patient with stable renal function. Plan to keepMAP>65 and avoid nephrotoxic agents. He was following progress man in [place] so plan to refer to his progress man post discharge. 2. Hypervolemia:Patient at high risk of volume overload so would reccommend lasix PO, lasix held due to hypotension .Volume stable. 3. Electrolytes: His electrolytes appear to be in normal range plan is to monitor and replace as needed. 4. Hypotension: Midodrine dose increased .Plan to monitor and increase midodrine if SBP<110. Consultants: cardiology, cardiovascular surgery, hospitalist, nephrology at 1108 RPT #:[id number] END OF REPORT [facility] 2022-08-28 07:00:00 [facility] ([facility]) Rehab Progress Note REPORT#:[id number] REPORT STATUS: Signed DATE:08/28/22 TIME: 0700 PATIENT: BRENNAN AHN UNIT #: [id number] ROOM/BED: [place] [address] : 42 AGE: 82 SEX: M ATTEND: Arthur Fuentes MD ADM AUTHOR: Arthur Fuentes MD * ALL edits or amendments must be made on the electronic/computer document * Subjective Chief complaint: Rehab follow-up Doing better NAD Eating well + BM Denies MORA/N/V/D/CP 14 systems reviewed and neg. except that above. History of present illness: 82-year-old male with PMH of Alzheimer's dementia, CKD, HTN, atrial fibrillation , history of SVT/ablation who was transferred to [facility] after being found to have multivessel coronary artery disease. Patient initially with was at home and developed chest pains. He was brought to [facility] and underwent left heart cath which revealed [...] of function was independent. Currently patient has generalized weakness. He lives by himself in a one-step up house. He denies any shortness of breath, nausea, vomiting, fever, chills. Denies chest pain. He is complaining of some constipation. He tells me that is in the process of selling his home. Preadmission screen was completed. Patient admitted to IRF. Objective General VS: Vital Signs: Date Time Temp Pulse Resp [...] 93 Room air PATIENT WEIGHT: Weight (lb): 221 Weight (oz): 9.03 Weight (kg): 100.500 Medications: Active Meds + DC'd Last 24 Hrs Phenazopyridine HCl (PYRIDIUM) 200 MG TID PRN [...] Sodium (COLACE) 100 MG BID PO Ipratropium [place] (ATROVENT) 500 MCG RTQ6H INH Sennosides (Senna Lax 8.6 MG TABLET) 17.2 MG BEDTIME PO Hydralazine HCl (APRESOLINE) 10 MG Q6H PRN PRN IV Acetaminophen (TYLENOL) 650 MG Q4H PRN PRN PO Ipratropium [place] (ATROVENT) 500 MCG RTQ2H PRN PRN INH Melatonin (Melatonin) 6 MG BEDTIME PRN PO Ondansetron HCl (ZOFRAN ODT) 4 MG TID PRN PRN SL Functional Progress Functional progress: - - PT DAILY NOTE - - PT daily note comment: S: PT REPORTS HE IS FEELING VERY GOOD TODAY,NO ACHES OR PAINS WITH ACTIVITIES IN THERPAY. O: PT WAS SEEN FOR 90MIN OF THERAPY BEGINNING W/ DON OF ENZO HOSE AND BINDER,TAKE BP IN SITTING AND STANDING RECORD ASSIST PT TO GET DRESSED DUE TO UNSTEADINESS.ASSIST PT TO REST ROOM MIN-A WITH STAND STEP TRANSFER REQUIRES STEADYING WELL REMINDERS WITH STERNAL PRECAUTIONS.AFTER VOIDING PT REQUIRES TO HAVE BLADDER SCANNED.GAIT TRAINING DWNSTAIRS SITTER ASSIST FOR SAFETY DUE TO OCC DIZZINESS PT AMB 82',75' MIN<>MOD-A BECOMES SLIGHTY OFF AFTER WALKING SHORT DISTANCE POSSIBLE DUE TO DIZZINESS,LENGTHY REST STOPS AFTER EACH WALK. WC MOBILTY PT PROPELL 85'BI LE CUES WITH SAFETY AWARENESS WHEN MANUEVERING AROUND OBJECTS DOWNSTAIRS. EDUCATE PT ON SAFETY W/TRANSFERS,SAFETY W/FALL PREVENTION,SAFETY W/WC MOBILITY,MAINTAINING STERNAL PRECAUTIONS. A; PT MAKING STEADY PROGRESS WITH FUNCTIONAL GOALS, LIMITED DUE TO COG/MEMORY DEFICITS,CAN BE IMPULSIVE ON OCC REPETITION WITH SAFETY CUES. P: PT CONT.WITH PT POC. Physical Exam General appearance: alert, awake, no acute distress Psych: alert, normal affect, oriented x 3 HEENT: anicteric, mucosal membranes moist, pupils reactive to light, sclera clear Neck: non-tender, supple, no JVD Cardiovascular: irregular rhythm, S1/S2, cap refill wnl, pulses intact Respiratory: diminished breath sounds, on oxygen, aerating well Abdomen: bowel sounds present, non-distended, soft, non-tender Skin: dry, normal temperature, no rash, bruising R thigh, mild L thigh, BUE, R hand Sl tender/edema, sternum incision RSH site CDI, bruising L chest wall, mildly tender, R elbow abrasion Musculoskeletal - general: Musculoskeletal - general: OA changes, normal tone, no swelling, Moves all 4 exts AG, calves NT, no cords, Homans neg Neuro/GATE GUARD: alert, oriented X 3, CNII-XII intact, normal speech, no motor deficits, no sensory deficits Results Findings/Data: Laboratory Tests: 03/27 0618 Chemistry Albumin (3.4 - 5.0 g/dL) [...] Prealbumin (16.0 - 40.0 mg/dL) 12.0 Radiology data: Recent Impressions: RADIOLOGY - XR SHOULDER 2 + V RT 08/22 1525 Report Impression - Status: SIGNED Entered: 08/22/2022 1752 IMPRESSION: No acute findings. Impression By: [email or web address] - Ramakrishna Dhaliwal M.D. CAT SCAN - CT HEAD/BRAIN W/O CONT 08/22 1546 Report Impression - Status: SIGNED Entered: 08/22/2022 1658 IMPRESSION: No acute intracranial abnormality, as above. Impression By: [email or web address] - Yosi Padron M.D. RADIOLOGY - XR ELBOW 2 VIEWS RT 08/23 1840 Report Impression - Status: SIGNED Entered: 08/23/2022 1923 IMPRESSION: No fracture or dislocation. Impression By: [email or web address] - Madi Pope M.D. RADIOLOGY - XR RIBS UNI 2 V LT 08/24 1455 Report Impression - Status: SIGNED Entered: 08/24/2022 1606 IMPRESSION: Healing fractures of the left lateral 7th and 8th ribs. Small left pleural effusion. Impression By: [email or web address] - Florentino Perez M.D. Diagnosis, Assessment Plan Problem List/A P: 1. CAD (coronary artery disease) 2. Afib 3. HTN (hypertension) 4. S/P CABG x 5 5. Impaired functional mobility, balance, gait, and endurance Free Text A P: Assessment: Multivessel CAD 08/10: S/p CABG x5-Dr. Josephine Loredo-fib s/p a ARISTEO Endoscopic RGSV harvest 08/16: Echo-EF 50-54%, small pericardial effusion Small bilateral pleural effusions. Muscle weakness Unsteady gait Alzheimer's dementia (as per family), poor memory Postoperative anemia LADARIUS on CKD HTN Impairment in self-care, ADLs and functional mobility Plan: -Continue PT/OT -Case management for safe discharge planning. -Decubitus prevention-protective hydrating lotion-turn every 2 hours-offload -Bowel program-MiraLAX, senna -Nutrition, monitor the patient's p.o. intake, check albumin 3.5, 3.2 and prealbumin 14.3, 12, dietary consult, protein supplements. Cardiac diet. BMI above normal parameters. Working with dietary, follow up with PCP -Strict fall and safety precaution -DVT prophylaxis-SCDs -GI prophylaxis on Protonix -CAD on Plavix and aspirin, intolerant to statins -Pulmonary toilet frequent I-S, nebs, wean O2 -Early mobilization-OOB to chair -Work on bed mobility, transfer training, ADLs, pre-gait and gait exercises as tolerable. -Increase endurance and strength -Pain management -Postop care as per CVS -Monitor telemetry -Cardiology on case -LADARIUS as per nephrology-He was following progress man in [place] so plan to refer to his progress man post discharge. -Dementia/confusion-Higher level of nursing care and monitoring for safety -Strict sternal precautions-patient with poor carryover of sternal precautions -Monitor sites of bruising and right hand pain-from previous phlebotomy sites-no signs of infection -Anemia-vitamin B12 and ferrous sulfate -HTN-BP stable-orthostasis/dizziness-di uretics reduced-midodrine added as needed -use ENZO hose and abdominal binder when out of bed-monitor. Medications being monitored by cardiology -Removed sutures x2 from lower chest on 08/25 -Follow-up with PCP for dementia evaluation -Dysuria-UA negative-completed Pyridium-symptoms resolved -08/22: Fall: Seen by trauma team after fall. CT head negative. Right shoulder x -ray negative for fracture. Patient patient appears to be at his baseline -08/24: Fall-no head injury-left rib pain-left rib film-no acute fractures, healing fractures of the left lateral 7th and 8th ribs. Small left pleural effusion-Lidoderm patch-monitor -R elbow hurting more. 2 view R elbow x ray-no acute fracture-Lidoderm patch- pain management -Stable cardiac status -Labs reviewed-WBC normal, hemoglobin 9.1, 8.9, 9.7 platelets stable, creatinine 1.9, 2.2, 1.9, 1.8 magnesium normal, HgbA1C 5.2. -Advance therapies as tolerable -Case discussed with son -1:1 sitter due to multiple falls-remove sitter and monitor -PT MAKING STEADY PROGRESS WITH FUNCTIONAL GOALS,LIMITED DUE TO COG/MEMORY DEFICITS,CAN BE IMPULSIVE ON OCC REPETITION WITH SAFETY CUES. -Team conference PM R Please see team note. Plan and goals discussed with the patient. I agree with the teams finding ELOS: [08/29] DC-SNF placement DME-bedside commode, rolling walker Total time was 34 minutes > 50% with patient performing physical examination, discussing with patient and son about removing sitter, fall precaustions, discharge plans, sternal precautions, plan of care, goals, therapies, progress, medications, labs. All questions answered Orders: Procedure Date/time Status Discontinue 1:1 Sitter 08/28 1700 Active NEB TREATMENT SUBSQ 08/28 0900 Active Telemetry Discontinue 08/28 0640 Active NEB TREATMENT SUBSQ 08/28 0324 Active NEB TREATMENT SUBSQ 08/27 2359 Complete NEB TREATMENT SUBSQ 08/27 2103 Active NEB TREATMENT SUBSQ 08/26 2359 Complete Consultants: cardiology, cardiovascular surgery, hospitalist, nephrology Rehab attestation: Face to face exam completed. Treatment plan discussed with patient. Meets continued stay criteria. Agree with interdisciplinary treatment plan. at 1226 RPT #:[id number] END OF REPORT [facility] 2022-08-27 14:05:00 [facility] ([facility]) Cardiology Progress Note REPORT#:[id number] REPORT STATUS: Signed DATE:08/27/22 TIME: 1405 PATIENT: BRENNAN AHN UNIT #: [id number] ROOM/BED: [place] [address] : 42 AGE: 82 SEX: M ATTEND: Arthur Fuentes MD ADM AUTHOR: Flaco Nair MD * ALL edits or amendments must be made on the electronic/computer document * Subjective Chief complaint: None Objective General VS/I O: 24 hour I O ending at 0700: [...] 97.7 74 16 139/71 93.7 94 08/26 2029 97.5 92 18 128/72 90.8 94 08/26 1948 96 Room air 08/26 1554 92 96/63 73.9 96 08/26 1552 86 22 117/62 80.5 97 08/26 1549 97.7 77 22 115/66 82.7 98 PATIENT WEIGHT: Weight (lb): 221 Weight (oz): 9.03 Weight (kg): 100.500 Medications: Active Meds + DC'd Last 24 Hrs Phenazopyridine HCl (PYRIDIUM) 200 MG TID PO Lidocaine [...] Sodium (COLACE) 100 MG BID PO Ipratropium [place] (ATROVENT) 500 MCG RTQ6H INH Sennosides (Senna Lax 8.6 MG TABLET) 17.2 MG BEDTIME PO Hydralazine HCl (APRESOLINE) 10 MG Q6H PRN PRN IV Acetaminophen (TYLENOL) 650 MG Q4H PRN PRN PO Ipratropium [place] (ATROVENT) 500 MCG RTQ2H PRN PRN INH Melatonin (Melatonin) 6 MG BEDTIME PRN PO Ondansetron HCl (ZOFRAN ODT) 4 MG TID PRN PRN SL Physical Exam General appearance: alert, awake, oriented Neck: non-tender, no JVD Cardiovascular: CV assessment: irregularly irregular Respiratory: decreased breath sounds, no distress Abdomen: soft, non-tender, normal bowel sounds, no distention Genitourinary: no flank pain, no urinary catheter Lower extremity: LE assessment: edema (trace edema RLE - harvest site), no edema Musculoskeletal: normal inspection Neuro/GATE GUARD: alert Skin: dry Psychiatry: normal affect, normal mood Results Findings/Data: Laboratory Tests 08/27 08/26 0600 2025 Chemistry Sodium [...] signs reviewed, vital signs stable Diagnosis, Assessment Plan Consultants: cardiology, cardiovascular surgery, hospitalist, nephrology Free Text DxA P Notes Free Text DxA P Notes: 82 YO male with MHX of Afib, HTN, HLD, CAD who is s/p 5 vessel CABG and PVI and ALAA. The patient is transferred to [facility] for inpatient rehabilitation. We are consulted for continuity of cardiac-related care. 1. CAD s/p CABG x 5 (NGUYEN-LAD, SVG-Olga Lidia, SVG-OM, SVG-LPLA, SVG-PDA) continue asa, BB, plavix, Zetia echo 08/12- LVEF 50-54%, left pleural effusion intolerant of statin, will consider nonstatin med such as Repatha or Nexletol outpatient LE edema subsided , off PO lasix d/t orthostatic hypotension- has midodrone as needed for hypotension 2. A-fib: Paroxysmal - rate controlled s/p PVI and ARISTEO amputation amiodarone 200 mg BID - taper dose prior to discharge Continue low-dose metoprolol to 12.5 mg BID no need for AC since left atrial appendage was removed during CABG 3. HTN BP stable Midodrine changed to 2.5 mg twice daily as needed Continue low-dose metoprolol to 12.5 mg BID 4. LADARIUS nephrology following 5. Dizziness 2/2 orthostatic hypotension -improving No report of orthostasis stasis today Change midodrine to as needed since BP stable compression stocking and abdominal binder before OOB Taken off Lasix, will re-assess need for diuretic on a daily basis 6. s/p Fall 08/22 and 08/24 CT head no acute finding R Elbow XR - no fracture L rib XR -healing fractures of the left lateral seventh and eighth ribs continue supportive care 08/26/22: -STABLE CARDIAC STATUS -PT/OT 08/27/22: -CAD/ACB -PAF -ARISTEO LIGATION -STABLE CARDIAC STATUS -AMBULATING -PT/OT -DISCUSSED CARE WITH HIS NURSE at 1406 RPT #:[id number] END OF REPORT [facility] 2022-08-27 13:50:00 [facility]) Internal Medicine Prog. Note REPORT#:[id number] REPORT STATUS: Signed DATE:08/27/22 TIME: 1350 PATIENT: BRENNAN AHN UNIT #: [id number] ROOM/BED: [place] [address] : 42 AGE: 82 SEX: M ATTEND: Arthur Fuentes MD ADM AUTHOR: Devin Fox DO * ALL edits or amendments must be made on the electronic/computer document * Subjective Chief complaint: pt c/o of some cough and pain in SS chest as a result Comments: late entry progress note Review of Systems All systems rev neg: except as marked Objective General VS/I O: Vital Signs Date Temp Pulse Resp B/P B/P Mean Pulse Ox FiO2 08/26-08/27 97.5-97.7 74-112 16-22 96-147/53-79 67.8-101.8 93-98 Last [...] Output, Urine 174 PATIENT WEIGHT: Weight (lb): 221 Weight (oz): 9.03 Weight (kg): 100.500 Medications: Active Meds + DC'd Last 24 Hrs Phenazopyridine HCl (PYRIDIUM) 200 MG TID PO Lidocaine [...] Sodium (COLACE) 100 MG BID PO Ipratropium [place] (ATROVENT) 500 MCG RTQ6H INH Sennosides (Senna Lax 8.6 MG TABLET) 17.2 MG BEDTIME PO Hydralazine HCl (APRESOLINE) 10 MG Q6H PRN PRN IV Acetaminophen (TYLENOL) 650 MG Q4H PRN PRN PO Ipratropium [place] (ATROVENT) 500 MCG RTQ2H PRN PRN INH Melatonin (Melatonin) 6 MG BEDTIME PRN PO Ondansetron HCl (ZOFRAN ODT) 4 MG TID PRN PRN SL Physical Exam General appearance: alert, awake Head/Eyes: EOMI, PERRLA Neck: non-tender, no JVD Cardiovascular: normal heart sounds, regular rate rhythm Respiratory: aerating well, clear to auscultation Abdomen: non-tender, normal bowel sounds Extremities: Extremities: no cyanosis, no edema Neuro/GATE GUARD: alert, oriented x 3, CNII-XII intact Skin: ecchymosis (l chest) Results Findings/Data: Laboratory Tests 08/27/22 0600: [Embedded Image Not Available] Laboratory Tests 08/27 08/26 062025 Chemistry Sodium (134 [...] (1.09 - 1.30 MMOL/L) 1.17 Diagnosis, Assessment Plan Hospital course to date: 82-year-old male with past medical history of hypertension, atrial fibrillation, supraventricular tachycardia status post ablation who was admitted with reports of multivessel coronary artery disease found on a cardiac catheterization done at [facility]. Patient was transferred to [facility] for CABG. He underwent [id number]. 1. Coronary artery disease -Status post CABG x5, ALAA, PVI -Continue metoprolol, Plavix, aspirin 2. Atrial fibrillation -Continue po amiodarone for rate control - taper AMIO per cards -Continue metoprolol -Monitor and review telemetry 3. Debility/ -.-PT/OT - PMR - Inpt Rehab 4. ARF - Trend cr 1.3-1.9-2.2-2.0-1.9-2.2 - post op, post lasix therefore likely pre-renal - baseline CKD is suspected - nephro consulted 5. anemia - acute, post op expecteed - monitor and transfuse if hg <7 - cont po Iron - Trend Hg 9.1 6. Delirium/ dementia -Likely due to sundowning/dementia -Monitor closely -Patient is neurologically intact 7. FALLs - 08/22, 08/24 - ct head neg - R shoulder Xr neg - R elbow pain- mild- pain meds prn - sitter at bedside 8. Dysuria - UA neg - on pyridium prn - consider Urologist consult 9. Orthostatic hypotension - cont Midodrine and adjust up - check orthostatic VS- mild orthostasis 10. RIB fx - 08/24 Left RIb xr -HEALING L 7th and 8th rib fractures- unknown chronicity if ribs fractures show healing, d/w RN and Pt and son in details total time spent 35mins d/w Consultants: cardiology, cardiovascular surgery, hospitalist, nephrology Quality: Gen Med Crit Care Current Medications Current medication review: I attest that the foregoing medication list in the medical record is true, accurate, and complete to the best of my knowledge. Advanced Care Plan 65 or Older Discussed with: patient Discussion included: code status at 0917 [facility] #:[id number] END OF REPORT [facility] 2022-08-27 13:48:00 [facility] Internal Medicine Prog. Note REPORT#:[id number] REPORT STATUS: Signed DATE:08/27/22 TIME: 1348 PATIENT: BRENNAN AHN UNIT #: [id number] ROOM/BED: [place] [address] : 42 AGE: 82 SEX: M ATTEND: Arthur Fuentes MD ADM AUTHOR: Devin Fox DO * ALL edits or amendments must be made on the electronic/computer document * Subjective Chief complaint: pt c/o of some cough and pain in SS chest as a result Review of Systems All systems rev neg: except as marked Objective General VS/I O: Vital Signs Date Temp Pulse Resp B/P B/P Mean Pulse Ox FiO2 08/26-08/27 97.5-97.7 74-112 16-22 96-147/53-79 67.8-101.8 93-98 Last [...] Output, Urine 174 PATIENT WEIGHT: Weight (lb): 221 Weight (oz): 9.03 Weight (kg): 100.500 Medications: Active Meds + DC'd Last 24 Hrs Phenazopyridine HCl (PYRIDIUM) 200 MG TID PO Lidocaine [...] Sodium (COLACE) 100 MG BID PO Ipratropium [place] (ATROVENT) 500 MCG RTQ6H INH Sennosides (Senna Lax 8.6 MG TABLET) 17.2 MG BEDTIME PO Hydralazine HCl (APRESOLINE) 10 MG Q6H PRN PRN IV Acetaminophen (TYLENOL) 650 MG Q4H PRN PRN PO Ipratropium [place] (ATROVENT) 500 MCG RTQ2H PRN PRN INH Melatonin (Melatonin) 6 MG BEDTIME PRN PO Ondansetron HCl (ZOFRAN ODT) 4 MG TID PRN PRN SL Physical Exam General appearance: alert, awake, answers most questions appropriately Head/Eyes: EOMI, PERRLA Neck: non-tender, no JVD Cardiovascular: normal heart sounds, regular rate rhythm Respiratory: aerating well, clear to auscultation Abdomen: non-tender, normal bowel sounds Extremities: Extremities: no cyanosis, no edema Neuro/GATE GUARD: alert, oriented x 3, CNII-XII intact Skin: ecchymosis (l chest) Results Findings/Data: Laboratory Tests 08/27/22599: [Embedded Image Not Available] Laboratory Tests 08/27 08/26 0600 2025 Chemistry Sodium [...] (1.09 - 1.30 MMOL/L) 1.17 Diagnosis, Assessment Plan Hospital course to date: 82-year-old male with past medical history of hypertension, atrial fibrillation, supraventricular tachycardia status post ablation who was admitted with reports of multivessel coronary artery disease found on a cardiac catheterization done at [facility]. Patient was transferred to [facility] for CABG. He underwent [id number]. 1. Coronary artery disease -Status post CABG x5, ALAA, PVI -Continue metoprolol, Plavix, aspirin 2. Atrial fibrillation -Continue po amiodarone for rate control - taper AMIO per cards -Continue metoprolol -Monitor and review telemetry 3. Debility/ -.-PT/OT - PMR - Inpt Rehab 4. ARF - Trend cr 1.3-1.9-2.2-2.0-1.9-2.2 - post op, post lasix therefore likely pre-renal - baseline CKD is suspected - nephro consulted 5. anemia - acute, post op expecteed - monitor and transfuse if hg <7 - cont po Iron - Trend Hg 9.1 6. Delirium/ dementia -Likely due to sundowning/dementia -Monitor closely -Patient is neurologically intact 7. FALLs - 08/22, 08/24 - ct head neg - R shoulder Xr neg - R elbow pain- mild- pain meds prn - sitter at bedside 8. Dysuria - UA neg - on pyridium prn - consider Urologist consult 9. Orthostatic hypotension - cont Midodrine and adjust up - check orthostatic VS- mild orthostasis 10. RIB fx - 08/24 Left RIb xr -HEALING L 7th and 8th rib fractures- unknown chronicity if ribs fractures show healing, d/w RN and Pt and son in details total time spent 35mins d/w Consultants: cardiology, cardiovascular surgery, hospitalist, nephrology Quality: Gen Med Crit Care Current Medications Current medication review: I attest that the foregoing medication list in the medical record is true, accurate, and complete to the best of my knowledge. Advanced Care Plan 65 or Older Discussed with: patient Discussion included: code status at 0917 RPT #:[id number] END OF REPORT [facility] 2022-08-27 05:51:00 [facility] ([facility]) Rehab Progress Note REPORT#:[id number] REPORT STATUS: Signed DATE:08/27/22 TIME: 05 PATIENT: BRENNAN AHN UNIT #: [id number] ROOM/BED: G.503-2 : 42 AGE: 82 SEX: M ATTEND: Arthur Fuenets MD ADM AUTHOR: Florentino Jimenez * ALL edits or amendments must be made on the electronic/computer document * Florentino Jimenez 08/27/22 0551: Subjective Chief complaint: Rehab follow-up Requires sitter due to falls NAD Eating well + BM Denies MORA/N/V/D/CP 14 systems reviewed and neg. except that above. History of present illness: 82-year-old male with PMH of Alzheimer's dementia, CKD, HTN, atrial fibrillation , history of SVT/ablation who was transferred to [facility] after being found to have multivessel coronary artery disease. Patient initially with was at home and developed chest pains. He was brought to [facility] and underwent left heart cath which revealed [...] of function was independent. Currently patient has generalized weakness. He lives by himself in a one-step up house. He denies any shortness of breath, nausea, vomiting, fever, chills. Denies chest pain. He is complaining of some constipation. He tells me that is in the process of selling his home. Preadmission screen was completed. Patient admitted to IRF. Objective General VS: Vital Signs: Date Time Temp Pulse Resp [...] 122/71 87.6 97 PATIENT WEIGHT: Weight (lb): 221 Weight (oz): 9.03 Weight (kg): 100.500 Medications: Active Meds + DC'd Last 24 Hrs Phenazopyridine HCl (PYRIDIUM) 200 MG TID PO Lidocaine [...] Sodium (COLACE) 100 MG BID PO Ipratropium [place] (ATROVENT) 500 MCG RTQ6H INH Sennosides (Senna Lax 8.6 MG TABLET) 17.2 MG BEDTIME PO Hydralazine HCl (APRESOLINE) 10 MG Q6H PRN PRN IV Acetaminophen (TYLENOL) 650 MG Q4H PRN PRN PO Ipratropium [place] (ATROVENT) 500 MCG RTQ2H PRN PRN INH Melatonin (Melatonin) 6 MG BEDTIME PRN PO Ondansetron HCl (ZOFRAN ODT) 4 MG TID PRN PRN SL Functional Progress Functional progress: PT daily note comment: S; PT REPORTS PAIN [...] PLACED IN ROOM DUE TO FALLS. Physical Exam General appearance: alert, awake Psych: alert, normal affect, oriented x 3 HEENT: anicteric, mucosal membranes moist, pupils reactive to light, sclera clear Neck: non-tender, supple, no JVD Cardiovascular: irregular rhythm, S1/S2, cap refill wnl, pulses intact Respiratory: diminished breath sounds, on oxygen, aerating well Abdomen: bowel sounds present, non-distended, soft, non-tender Skin: dry, normal temperature, no rash, bruising R thigh, mild L thigh, BUE, R hand Sl tender/edema, sternum incision RSH site CDI, bruising L chest wall, mildly tender, R elbow abrasion Musculoskeletal - general: Musculoskeletal - general: OA changes, normal tone, no swelling, Moves all 4 exts AG, calves NT, no cords, Homans neg Neuro/GATE GUARD: alert, oriented X 3, CNII-XII intact, normal speech, no motor deficits, no sensory deficits Results Findings/Data: Laboratory Tests 08/26 0515 0515 Chemistry Sodium (134 [...] pH (5.0 - 7.0) 5.0 Ur Specific [place] (1.005 - 1.030) 1.011 Urine Protein (NEGATIVE) [...] Urine Mucus (NONE SEEN /LPF) TRACE Recent Impressions: RADIOLOGY - XR RIBS UNI 2 V LT 08/24 8135 Report Impression - Status: SIGNED Entered: 08/24/2022 1606 IMPRESSION: Healing fractures of the left lateral 7th and 8th ribs. Small left pleural effusion. Impression By: [email or web address] - Florentino Perez M.D. Diagnosis, Assessment Plan Problem List/A P: 1. CAD (coronary artery disease) 2. Afib 3. HTN (hypertension) 4. S/P CABG x 5 5. Impaired functional mobility, balance, gait, and endurance Free Text A P: Assessment: Multivessel CAD 08/10: S/p CABG x5-Dr. Josephine Loredo-fib s/p a ARISTEO Endoscopic RGSV harvest 08/16: Echo-EF 50-54%, small pericardial effusion Small bilateral pleural effusions. Muscle weakness Unsteady gait Alzheimer's dementia (as per family), poor memory Postoperative anemia LADARIUS on CKD HTN Impairment in self-care, ADLs and functional mobility Plan: -Continue PT/OT -Case management for safe discharge planning. -Decubitus prevention-protective hydrating lotion-turn every 2 hours-offload -Bowel program-MiraLAX, senna -Nutrition, monitor the patient's p.o. intake, check albumin 3.5 and prealbumin 14.3, dietary consult, protein supplements. Cardiac diet. BMI above normal parameters. Working with dietary, follow up with PCP -Strict fall and safety precaution -DVT prophylaxis-SCDs -GI prophylaxis on Protonix -CAD on Plavix and aspirin, intolerant to statins -Pulmonary toilet frequent I-S, nebs, wean O2 -Early mobilization-OOB to chair -Work on bed mobility, transfer training, ADLs, pre-gait and gait exercises as tolerable. -Increase endurance and strength -Pain management -Postop care as per CVS -Monitor telemetry -Cardiology on case -LADARIUS as per nephrology-He was following progress man in [place] so plan to refer to his progress man post discharge. -Dementia/confusion-Higher level of nursing care and monitoring for safety -Strict sternal precautions-patient with poor carryover of sternal precautions -Monitor sites of bruising and right hand pain-from previous phlebotomy sites-no signs of infection -Labs reviewed-WBC normal, hemoglobin 9.1, 8.9, 9.7 platelets stable, creatinine 1.9, 2.2, 1.9 magnesium normal, HgbA1C 5.2. -Anemia-vitamin B12 and ferrous sulfate -HTN-BP stable-orthostasis/dizziness-di uretics reduced-midodrine added as needed -use ENZO hose and abdominal binder when out of bed-monitor. Medications being monitored by cardiology -Removed sutures x2 from lower chest on 08/25 -Follow-up with PCP for dementia evaluation -Dysuria-UA negative-completed Pyridium-symptoms resolved -08/22: Fall: Seen by trauma team after fall. CT head negative. Right shoulder x -ray negative for fracture. Patient patient appears to be at his baseline -08/24: Fall-no head injury-left rib pain-left rib film-no acute fractures, healing fractures of the left lateral 7th and 8th ribs. Small left pleural effusion-Lidoderm patch-monitor -RN called me this afternoon and said pt's R elbow hurting more. 2 view R elbow x ray-no acute fracture-Lidoderm patch-pain management -Advance therapies as tolerable -1:1 sitter due to multiple falls -Has significant issues with memory. Patient making slow progress with functional goals limited due to cognitive deficits. Poor carryover of sternal precautions. Requires verbal cues to maintain sternal precautions with transfers. PM R Please see team note. Plan and goals discussed with the patient. I agree with the teams finding ELOS: [08/29] DC-SNF placement DME-bedside commode, rolling walker Total time was 33 minutes > 50% with patient performing physical examination, discussing with patient about fall precaustions, 1:1 sitter, discharge plans, sternal precautions, plan of care, goals, therapies, progress, medications, labs. All questions answered Rehab attestation: Face to face exam completed. Treatment plan discussed with patient. Meets continued stay criteria. Agree with interdisciplinary treatment plan. Arthur Fuentes 08/27/221941: Attestations Physician Attestation Agree w/findings plan: Pt seen. Agree with the findings and plan as documented by ALVAREZ Bush at 1943 at 0659 RPT #:[id number] END OF REPORT [facility] 2022-08-26 17:34:00 [facility] ([facility]) Cardiology Progress Note REPORT#:[id number] REPORT STATUS: Signed DATE:08/26/22 TIME: 1734 PATIENT: BRENNAN AHN UNIT #: [id number] ROOM[facility]BED: [facility] : 42 AGE: 82 SEX: M ATTEND: Arthur Fuentes MD ADM AUTHOR: Flaco Nair MD * ALL edits or amendments must be made on the electronic/computer document * Subjective Chief complaint: None Objective General VS/I O: 24 hour I O ending at 0700: [...] 98.4 67 17 108/61 76.6 94 08/25 2058 98.1 77 17 119/67 84.4 97 08/25 1956 98 Room air PATIENT WEIGHT: Weight (lb): 221 Weight (oz): 9.03 Weight (kg): 100.500 Medications: Active Meds + DC'd Last 24 Hrs Phenazopyridine HCl (PYRIDIUM) 200 MG TID PO Lidocaine [...] Sodium (COLACE) 100 MG BID PO Ipratropium [place] (ATROVENT) 500 MCG RTQ6H INH Sennosides (Senna Lax 8.6 MG TABLET) 17.2 MG BEDTIME PO Hydralazine HCl (APRESOLINE) 10 MG Q6H PRN PRN IV Acetaminophen (TYLENOL) 650 MG Q4H PRN PRN PO Ipratropium [place] (ATROVENT) 500 MCG RTQ2H PRN PRN INH Melatonin (Melatonin) 6 MG BEDTIME PRN PO Ondansetron HCl (ZOFRAN ODT) 4 MG TID PRN PRN SL Physical Exam General appearance: alert, awake, oriented Neck: non-tender, no JVD Cardiovascular: CV assessment: irregularly irregular Respiratory: decreased breath sounds, no distress Abdomen: soft, non-tender, normal bowel sounds, no distention Genitourinary: no flank pain, no urinary catheter Lower extremity: LE assessment: edema (trace edema RLE - harvest site), no edema Musculoskeletal: normal inspection Neuro/GATE GUARD: alert Skin: dry Psychiatry: normal affect, normal mood Results Results: labs reviewed, vital signs reviewed, vital signs stable Diagnosis, Assessment Plan Consultants: cardiology, cardiovascular surgery, hospitalist, nephrology Free Text DxA P Notes Free Text DxA P Notes: 82 YO male with MHX of Afib, HTN, HLD, CAD who is s/p 5 vessel CABG and PVI and ALAA. The patient is transferred to [facility] for inpatient rehabilitation. We are consulted for continuity of cardiac-related care. 1. CAD s/p CABG x 5 (NGUYEN-LAD, SVG-Olga Lidia, SVG-OM, SVG-LPLA, SVG-PDA) continue asa, BB, plavix, Zetia echo 08/12- LVEF 50-54%, left pleural effusion intolerant of statin, will consider nonstatin med such as Repatha or Nexletol outpatient LE edema subsided , off PO lasix d/t orthostatic hypotension- has midodrone as needed for hypotension 2. A-fib: Paroxysmal - rate controlled s/p PVI and ARISTEO amputation amiodarone 200 mg BID - taper dose prior to discharge Continue low-dose metoprolol to 12.5 mg BID no need for AC since left atrial appendage was removed during CABG 3. HTN BP stable Midodrine changed to 2.5 mg twice daily as needed Continue low-dose metoprolol to 12.5 mg BID 4. LADARIUS nephrology following 5. Dizziness 2/2 orthostatic hypotension -improving No report of orthostasis stasis today Change midodrine to as needed since BP stable compression stocking and abdominal binder before OOB Taken off Lasix, will re-assess need for diuretic on a daily basis 6. s/p Fall 08/22 and 08/24 CT head no acute finding R Elbow XR - no fracture L rib XR -healing fractures of the left lateral seventh and eighth ribs continue supportive care 08/26/22: -CAD/ACB -PAF -ARISTEO LIGATION -STABLE CARDIAC STATUS -AMBULATING -PT/OT -DISCUSSED CARE WITH HIS NURSE at 1116 RPT #:[id number] END OF REPORT [facility] 2022-08-26 16:17:00 [facility] Urology Progress Note REPORT#:[id number] REPORT STATUS: Signed DATE:08/26/22 TIME: 1616 PATIENT: BRENNAN AHN UNIT #: [id number] ROOM/BED: [place] [address] : 42 AGE: 82 SEX: M ATTEND: Arthur Fuentes MD ADM AUTHOR: Aubrey Keith MD * ALL edits or amendments must be made on the electronic/computer document * Subjective Chief complaint: CABG Comments: Reports dysuria is improving. Emptying his bladder with low PVR. Objective General VS/I O: Last Documented: Result Date Time Pulse Ox [...] Output, Urine 120 PATIENT WEIGHT: Weight (lb): 221 Weight (oz): 9.03 Weight (kg): 100.500 Free text obj notes: Physical Examination: Constitutional: no acute distress Eyes: normal external eye, conjunctiva and sclera normal Ears, nose, mouth, throat: normocephalic, moist mucous membranes Respiratory: respirations unlabored on room air Gastrointestinal: soft, non-distended, non-tender, no costovertebral angle tenderness Musculoskeletal: no clubbing, cyanosis or edema Skin: no rashes Neurologic: no focal deficits Psychiatric: appropriate mood and affect Hematologic: no bruising Diagnosis, Assessment Plan Free Text A P: Brennan Ahn is a 82-year-old status post CABG 07/13/2022, 3-month history of dysuria, no other LUTS. Ua from 08/21/22 negative for nitrites. Dysuria is improving. UA wnl. He is emptying well. - Continue pyridium - Will arrange for patient to follow up with us as an outpatient as he may benefit from outpatient cystoscopy Aubrey Keith MD at 1620 RPT #:[id number] END OF REPORT [facility] 2022-08-26 16:08:00 [facility] Nephrology Progress Note REPORT#:[id number] REPORT STATUS: Signed DATE:08/26/22 TIME: 1608 PATIENT: BRENNAN AHN UNIT #: [id number] ROOM/BED: [place] [address] : 42 AGE: 82 SEX: M ATTEND: Arthur Fuentes MD ADM AUTHOR: Maura Terrazas MD * ALL edits or amendments must be made on the electronic/computer document * Subjective Chief complaint: chest pain HPI: 82-year-old male known to have hypertension, atrial fibrillation, supraventricular tachycardia with requiring ablation presenting with multivessel cardiovascular disease and he underwent CABG 07/13/2022. He endorsed having kidney issues in the past and seeing a progress man at [place] but his kidney function had been stable since then.He developed oliguria,LADARIUS and hypervolemia post CABG but had now improved and was transferred to rehab. 08/26 Patient appearing comfortable,denying all systemic review including dizziness. He was tolerating orally. Objective General VS/I O: Vital Signs: Date Time Temp Pulse Resp B/P B/P Pulse O2 O2 Flow FiO2 Mean Ox Delivery Rate 08/27 1520 36.5 77 18 163/71 102.0 97 Room air 08/27 1047 112 17 96/61 72.4 08/27 1035 85 113/64 80.2 08/27 0735 91 97/53 67.8 08/27 0732 80 18 96/57 70.1 98 Room air 08/27 0726 36.4 75 18 126/70 88.6 93 Room [...] Output, Urine 174 PATIENT WEIGHT: Weight (lb): 221 Weight (oz): 9.03 Weight (kg): 100.500 Physical Exam General appearance: alert, awake, oriented Head/eyes: atraumatic, clear cornea, EOMI ENT: moist mucous membranes, normal nose Neck: no JVD, no masses or swelling Cardiovascular: normal heart sounds, regular rate and rhythm Respiratory: aerating well, clear to auscultation Abdomen: non-tender, soft Genitourinary: no bladder distention, no flank pain Extremities: pitting edema, no gangrene, no swelling Diagnosis, Assessment Plan Free Text A P: 82-year-old male known to have hypertension, atrial fibrillation, supraventricular tachycardia with requiring ablation presenting with multivessel cardiovascular disease and he underwent CABG 07/13/2022. Transferred [...] recently had surgery. Resolving with better hemodynamics. His kidney function was stable plan was to [...] stable renal function. Plan to keepMAP>65 and avoid nephrotoxic agents. He was following progress man in [place] so plan to refer to his progress man post discharge. 2. Hypervolemia:Patient at high risk of volume overload so would reccommend lasix PO, lasix held due to hypotension .Volume improving slowly. 3. Electrolytes: His electrolytes appear to be in normal range plan is to monitor and replace as needed. 4. Hypotension: Midodrine dose increased .Plan to monitor. 08/24 1. LADARIUS on CKD: Patient with stable renal function. Plan to keepMAP>65 and avoid nephrotoxic agents. He was following progress man in [place] so plan to refer to his progress man post discharge. 2. Hypervolemia:Patient at high risk of volume overload so would reccommend lasix PO, lasix held due to hypotension .Volume stable. 3. Electrolytes: His electrolytes appear to be in normal range plan is to monitor and replace as needed. 4. Hypotension: Midodrine dose increased .Plan to monitor and increase midodrine if SBP<110. 08/26 1. LADARIUS on CKD: Patient with stable renal function. Plan to keepMAP>65 and avoid nephrotoxic agents. He was following progress man in [place] so plan to refer to his progress man post discharge. 2. Hypervolemia:Patient at high risk of volume overload so would reccommend lasix PO, lasix held due to hypotension .Volume stable. 3. Electrolytes: His electrolytes appear to be in normal range plan is to monitor and replace as needed. 4. Hypotension: Midodrine dose increased .Plan to monitor and increase midodrine if SBP<110. Consultants: cardiology, cardiovascular surgery, hospitalist, nephrology at 1630 RPT #:[id number] END OF REPORT [facility] 2022-08-26 05:47:00 [facility] Rehab Progress Note REPORT#:[id number] REPORT STATUS: Signed DATE:08/26/22 TIME: 0547 PATIENT: BRENNAN AHN UNIT #: [id number] ROOM/BED: [place] [address] : 42 AGE: 82 SEX: M ATTEND: Arthur Fuentes MD ADM AUTHOR: Florentino Jimenez * ALL edits or amendments must be made on the electronic/computer document * Subjective Chief complaint: Rehab follow-up Requires sitter due to falls NAD Eating well + BM Denies MORA/N/V/D/CP 14 systems reviewed and neg. except that above. History of present illness: 82-year-old male with PMH of Alzheimer's dementia, CKD, HTN, atrial fibrillation , history of SVT/ablation who was transferred to [facility] after being found to have multivessel coronary artery disease. Patient initially with was at home and developed chest pains. He was brought to [facility] and underwent left heart cath which revealed [...] of function was independent. Currently patient has generalized weakness. He lives by himself in a one-step up house. He denies any shortness of breath, nausea, vomiting, fever, chills. Denies chest pain. He is complaining of some constipation. He tells me that is in the process of selling his home. Preadmission screen was completed. Patient admitted to IRF. Objective General VS: Vital Signs: Date Time Temp Pulse Resp B/P B/P Pulse O2 O2 Flow FiO2 Mean Ox Delivery Rate 08/26 0526 97.9 75 16 116/59 78.0 98 08/26 0330 98 Room air 08/26 0038 98.4 67 17 108/61 76.6 94 08/25 2058 98.1 77 17 119/67 84.4 97 08/25 1956 98 Room air 08/25 1720 86 96 [...] 124/64 83.9 97 PATIENT WEIGHT: Weight (lb): 221 Weight (oz): 9.03 Weight (kg): 100.500 Medications: Active Meds + DC'd Last 24 Hrs Lidocaine (LIDODERM) 1 PATCH DAILY TOPICAL Midodrine [...] Sodium (COLACE) 100 MG BID PO Ipratropium [place] (ATROVENT) 500 MCG RTQ6H INH Sennosides (Senna Lax 8.6 MG TABLET) 17.2 MG BEDTIME PO Hydralazine HCl (APRESOLINE) 10 MG Q6H PRN PRN IV Acetaminophen (TYLENOL) 650 MG Q4H PRN PRN PO Ipratropium [place] (ATROVENT) 500 MCG RTQ2H PRN PRN INH Melatonin (Melatonin) 6 MG BEDTIME PRN PO Ondansetron HCl (ZOFRAN ODT) 4 MG TID PRN PRN SL Functional Progress Functional progress: PT WAS SEEN FOR 90MIN OF THERAPY [...] FUNCTIONAL ACTIVITIES ASSIST PT TO RESTROOM USING EXTRA TIME DUE TO BOWEL MOVEMENT MOD-MIN-A [...] TRANSFER TO TAKE PT TO SNF ON TU.EDUCATE PT AND FAMILY ON FALL PREVENTION,FALL RECOVERY.SAFETY W/ RW MGMT. A; PT MAKING LIMITED PROGRESS DUE TO COG/MEMORY DEFICITS CAN BE IMPULSIVE AT TIME,SITTER HAS BEEN PLACED IN ROOM DUE TO FALLS. Physical Exam General appearance: alert, awake Psych: alert, normal affect, oriented x 3 HEENT: anicteric, mucosal membranes moist, pupils reactive to light, sclera clear Neck: non-tender, supple, no JVD Cardiovascular: irregular rhythm, S1/S2, cap refill wnl, pulses intact Respiratory: diminished breath sounds, on oxygen, aerating well Abdomen: bowel sounds present, non-distended, soft, non-tender Skin: dry, normal temperature, no rash, bruising R thigh, mild L thigh, BUE, R hand Sl tender/edema, sternum incision RSH site CDI, bruising L chest wall, mildly tender, R elbow abrasion Musculoskeletal - general: Musculoskeletal - general: OA changes, normal tone, no swelling, Moves all 4 exts AG, calves NT, no cords, Homans neg Neuro/GATE GUARD: alert, oriented X 3, CNII-XII intact, normal speech, no motor deficits, no sensory deficits Results Findings/Data: Laboratory Tests 08/25 08/25 08/23 0515 0515 0700 [...] (Auto) (14.0 - 32.0 %) 8.0 L [place]isco[place] % (Auto) (4.8 - 9.0 %) 6.8 Eos % (Auto) (0.3 - 3.7 %) 6.5 H Baso % (Auto) (0.0 - 2.0 %) 0.8 Neut # (Auto) (2.0 - 7.6 x10 3/uL) 8.00 H Lymph # (Auto) (1.0 - 3.8 x10 3/uL) 0.83 L Briscoe # (Auto) (0.1 - 0.8 x10 3/uL) [...] pH (5.0 - 7.0) 5.0 Ur Specific [place] (1.005 - 1.030) 1.011 Urine Protein (NEGATIVE) [...] Urine Mucus (NONE SEEN /LPF) TRACE Recent Impressions: RADIOLOGY - XR ELBOW 2 VIEWS RT 08/23 1840 Report Impression - Status: SIGNED Entered: 08/23/2022 1923 IMPRESSION: No fracture or dislocation. Impression By: [email or web address] - Madi Pope M.D. RADIOLOGY - XR RIBS UNI 2 V LT 08/24 1455 Report Impression - Status: SIGNED Entered: 08/24/2022 1606 IMPRESSION: Healing fractures of the left lateral 7th and 8th ribs. Small left pleural effusion. Impression By: [email or web address] - Florentino Perez M.D. Diagnosis, Assessment Plan Problem List/A P: 1. CAD (coronary artery disease) 2. Afib 3. HTN (hypertension) 4. S/P CABG x 5 5. Impaired functional mobility, balance, gait, and endurance Free Text A P: Assessment: Multivessel CAD 08/10: S/p CABG x5-Dr. Josephine Loredo-fib s/p a ARISTEO Endoscopic RGSV harvest 08/16: Echo-EF 50-54%, small pericardial effusion Small bilateral pleural effusions. Muscle weakness Unsteady gait Alzheimer's dementia (as per family), poor memory Postoperative anemia LADARIUS on CKD HTN Impairment in self-care, ADLs and functional mobility Plan: -Continue PT/OT -Case management for safe discharge planning. -Decubitus prevention-protective hydrating lotion-turn every 2 hours-offload -Bowel program-MiraLAX, senna -Nutrition, monitor the patient's p.o. intake, check albumin 3.5 and prealbumin 14.3, dietary consult, protein supplements. Cardiac diet. BMI above normal parameters. Working with dietary, follow up with PCP -Strict fall and safety precaution -DVT prophylaxis-SCDs -GI prophylaxis on Protonix -CAD on Plavix and aspirin, intolerant to statins -Pulmonary toilet frequent I-S, nebs, wean O2 -Early mobilization-OOB to chair -Work on bed mobility, transfer training, ADLs, pre-gait and gait exercises as tolerable. -Increase endurance and strength -Pain management -Postop care as per CVS -Monitor telemetry -Cardiology on case -LADARIUS as per nephrology-He was following progress man in [place] so plan to refer to his progress man post discharge. -Dementia/confusion-Higher level of nursing care and monitoring for safety -Strict sternal precautions-patient with poor carryover of sternal precautions -Monitor sites of bruising and right hand pain-from previous phlebotomy sites-no signs of infection -Labs reviewed-WBC normal, hemoglobin 9.1, 8.9, 9.7 platelets stable, creatinine 1.9, 2.2, 1.9 magnesium normal, HgbA1C 5.2. -Anemia-vitamin B12 and ferrous sulfate -HTN-BP stable-orthostasis/dizziness-di uretics reduced-midodrine added as needed -use ENZO hose and abdominal binder when out of bed-monitor. Medications being monitored by cardiology -Removed sutures x2 from lower chest on 08/25 -Follow-up with PCP for dementia evaluation -Dysuria-UA negative-completed Pyridium-symptoms resolved -08/22: Fall: Seen by trauma team after fall. CT head negative. Right shoulder x -ray negative for fracture. Patient patient appears to be at his baseline -08/24: Fall-no head injury-left rib pain-left rib film-no acute fractures, healing fractures of the left lateral 7th and 8th ribs. Small left pleural effusion-Lidoderm patch-monitor -RN called me this afternoon and said pt's R elbow hurting more. 2 view R elbow x ray-no acute fracture-Lidoderm patch-pain management -Advance therapies as tolerable -1:1 sitter due to multiple falls -Patient able to ambulate 50 to 55 feet with rolling walker and has significant issues with memory. Patient making slow progress with functional goals limited due to cognitive deficits. Poor carryover of sternal precautions. Requires verbal cues to maintain sternal precautions with transfers. PM R Please see team note. Plan and goals discussed with the patient. I agree with the teams finding ELOS: [08/29] DC-SNF placement DME-bedside commode, rolling walker Total time was 34 minutes > 50% with patient performing physical examination, discussing with patient about fall precaustions, 1:1 sitter, discharge plans, sternal precautions, plan of care, goals, therapies, progress, medications, labs. All questions answered Rehab attestation: Face to face exam completed. Treatment plan discussed with patient. Meets continued stay criteria. Agree with interdisciplinary treatment plan. at 1910 RPT #:[id number] END OF REPORT [facility] 2022-08-25 15:02:00 [facility] Internal Medicine Prog. Note REPORT#:[id number] REPORT STATUS: Signed DATE:08/25/22 TIME: 1502 PATIENT: BRENNAN AHN UNIT #: [id number] ROOM/BED: [place] [address] : 42 AGE: 82 SEX: M ATTEND: Arthur Fuentes MD ADM AUTHOR: Devin Fox DO * ALL edits or amendments must be made on the electronic/computer document * Subjective Chief complaint: pt c/o of some cough and pain in SS chest as a result Review of Systems All systems rev neg: except as marked Objective General VS/I O: Vital Signs Date Temp Pulse Resp B/P B/P Mean Pulse Ox FiO2 08/24-08/25 97.3-98.6 67-112 17-20 92-166/50-91 64.9-116.1 90-99 Last Documented: Result Date Time Pulse Ox 93 08/25 1101 B/P 101/59 08/25 1101 B/P Mean 73.0 08/25 1101 Pulse 89 08/25 1101 Resp 20 08/25 1101 Temp 97.5 08/25 1055 O2 Delivery Room air 08/25 0447 FiO2 21 08/228 24 hour I O ending at 0700: 08/25 0700 08/24 1900 Intake Total Output Total 225 Balance -225 Number 0 Incontinent Voids Number Voids 1 Output, Urine 225 PATIENT WEIGHT: Weight (lb): 221 Weight (oz): 9.03 Weight (kg): 100.500 Medications: Active Meds + DC'd Last 24 Hrs Lidocaine (LIDODERM) 1 PATCH DAILY TOPICAL Midodrine [...] Sodium (COLACE) 100 MG BID PO Ipratropium [place] (ATROVENT) 500 MCG RTQ6H INH Sennosides (Senna Lax 8.6 MG TABLET) 17.2 MG BEDTIME PO Hydralazine HCl (APRESOLINE) 10 MG Q6H PRN PRN IV Acetaminophen (TYLENOL) 650 MG Q4H PRN PRN PO Ipratropium [place] (ATROVENT) 500 MCG RTQ2H PRN PRN INH Melatonin (Melatonin) 6 MG BEDTIME PRN PO Ondansetron HCl (ZOFRAN ODT) 4 MG TID PRN PRN SL Physical Exam General appearance: alert, awake, oriented Head/Eyes: EOMI, PERRLA Neck: non-tender, no JVD Cardiovascular: normal heart sounds, regular rate rhythm Respiratory: aerating well, clear to auscultation Abdomen: non-tender, normal bowel sounds Extremities: Extremities: no cyanosis, no edema Neuro/GATE GUARD: alert, oriented x 3, CNII-XII intact Skin: ecchymosis (l chest) Results Findings/Data: Laboratory Tests 08/25/2215: [Embedded Image Not Available] Laboratory Tests 08/2515 0515 Chemistry Sodium (134 - 147 mEq/L) [...] Cortisol AM Sample (ug/dL) 29.44 Diagnosis, Assessment Plan Hospital course to date: 82-year-old male with past medical history of hypertension, atrial fibrillation, supraventricular tachycardia status post ablation who was admitted with reports of multivessel coronary artery disease found on a cardiac catheterization done at [facility]. Patient was transferred to [facility] for CABG. He underwent [id number]. 1. Coronary artery disease -Status post CABG x5, ALAA, PVI -Continue metoprolol, Plavix, aspirin 2. Atrial fibrillation -Continue po amiodarone for rate control - taper AMIO per cards -Continue metoprolol -Monitor and review telemetry 3. Debility/ -.-PT/OT - PMR - Inpt Rehab 4. ARF - Trend cr 1.3-1.9-2.2-2.0-1.9-2.2 - post op, post lasix therefore likely pre-renal - baseline CKD is suspected - nephro consulted 5. anemia - acute, post op expecteed - monitor and transfuse if hg <7 - cont po Iron - Trend Hg 9.1 6. Delirium/ dementia -Likely due to sundowning -Monitor closely -Patient is neurologically intact 7. FALLs - 08/22, 08/24 - ct head neg - R shoulder Xr neg - R elbow pain- mild- pain meds prn - sitter at bedside 8. Dysuria - UA neg - on pyridium prn - consider Urologist consult 9. Orthostatic hypotension - cont Midodrine and adjust up - check orthostatic VS- mild orthostasis 10. RIB fx - 08/24 Left RIb xr -HEALING L 7th and 8th rib fractures- unknown chronicity if ribs fractures show healing, d/w RN and Pt in details total time spent 35mins d/w Consultants: cardiology, cardiovascular surgery, hospitalist, nephrology Quality: Gen Med Crit Care Current Medications Current medication review: I attest that the foregoing medication list in the medical record is true, accurate, and complete to the best of my knowledge. Advanced Care Plan 65 or Older Discussed with: patient Discussion included: code status at 0917 RPT #:[id number] END OF REPORT [facility] 2022-08-25 08:55:00 [facility]) Cardiology Progress Note REPORT#:[id number] REPORT STATUS: Signed DATE:08/25/22 TIME: 08 PATIENT: BRENNAN AHN UNIT #: [id number] ROOM/BED: [place] [address] : 42 AGE: 82 SEX: M ATTEND: Arthur Fuentes MD ADM AUTHOR: Guera Marion NP * ALL edits or amendments must be made on the electronic/computer document * Subjective Chief complaint: None Objective General VS/I O: Laboratory Tests 08/25/22 0515: [Embedded Image Not Available] Current Medications Sig/Ariana Start time Last Medication Dose Route Stop Time Status Admin Lidocaine 1 PATCH DAILY 08/24 1300 AC 08/25 TOPICAL 09/23 1259 0807 Midodrine 2.5 MG BID 9A 5P PRN 08/24 1115 AC 08/25 PO 09/23 1114 0805 Lidocaine 1 PATCH DAILY 08/24 0900 AC 08/25 TOPICAL 09/23 0859 0807 Metoprolol Tartrate 12.5 MG Q12HR 08/22 2100 AC 08/25 PO 09/21 2059 0806 Midodrine 5 MG TID AC 08/22 1130 DC 08/24 PO 09/21 1129 1700 Duloxetine HCl 60 MG BEDTIME 08/18 2099 AC 08/24 PO 09/17 205 210 Ezetimibe 10 MG DAILY 08/18 09 AC 08/25 PO 09/17 0859 0805 Amiodarone HCl 200 MG BID 08/17 2100 AC 08/25 PO 09/16 2058 0805 Aspirin 81 MG DAILY 08/17 09 AC 08/25 PO 09/16 0859 0805 Clopidogrel Bisulfate 75 MG DAILY 08/17 09 AC 08/25 PO 09/16 0859 0804 Cyanocobalamin 500 MCG DAILY 08/17 09 AC 08/25 PO 09/16 0859 0805 Ferrous Sulfate 325 MG DAILY 08/17 09 AC 08/25 PO 09/16 0859 0805 Polyethylene Glycol 17 GM DAILY 08/17 09 AC 08/25 PO 09/16 0859 0804 Pantoprazole 40 MG DAILY@0600 08/17 0600 AC 08/25 PO 09/16 0559 0603 Budesonide 0.5 MG RTBID 08/160 AC 08/23 INH 09/15 2158 0730 Formoterol Fumarate 20 MCG RTBID 08/16 2200 AC 08/23 NEB 09/15 215 0730 Docusate Sodium 100 MG BID 08/16 2099 AC 08/25 PO 09/15 2058 0805 Ipratropium [place] 500 MCG RTQ6H 08/16 2100 AC 08/24 INH 09/15 2058 1602 Sennosides 17.2 MG BEDTIME 08/16 2100 AC 08/24 PO 09/15 205 210 Hydralazine HCl 10 MG Q6H PRN PRN 08/16 1315 AC IV 09/15 1314 Acetaminophen 650 MG Q4H PRN PRN 08/16 1300 AC 08/20 PO 09/15 1259 0918 Ipratropium [place] 500 MCG RTQ2H PRN PRN 08/16 1300 AC INH 09/15 1259 Melatonin 6 MG BEDTIME PRN 08/16 1300 AC 08/24 PO 09/15 125 2105 Ondansetron HCl 4 MG TID PRN [...] 19 145/76 99.0 PATIENT WEIGHT: Weight (lb): 221 Weight (oz): 9.03 Weight (kg): 100.500 Physical Exam General appearance: alert, awake, oriented, no acute distress, pleasant Neck: non-tender, no JVD Cardiovascular: CV assessment: irregularly irregular Respiratory: decreased breath sounds, no distress Abdomen: soft, non-tender, normal bowel sounds, no distention Genitourinary: no flank pain, no urinary catheter Lower extremity: LE assessment: edema (trace edema RLE - harvest site), no edema Musculoskeletal: normal inspection Neuro/GATE GUARD: alert Skin: dry Psychiatry: normal affect, normal mood Results Radiology data: Recent Impressions: RADIOLOGY - XR RIBS UNI 2 V LT 08/24 1455 Report Impression - Status: SIGNED Entered: 08/24/2022 1606 IMPRESSION: Healing fractures of the left lateral 7th and 8th ribs. Small left pleural effusion. Impression By: [email or web address] - Florentino Perez M.D. Diagnosis, Assessment Plan Consultants: cardiology, cardiovascular surgery, hospitalist, nephrology Free Text DxA P Notes Free Text DxA P Notes: 82 YO male with MHX of Afib, HTN, HLD, CAD who is s/p 5 vessel CABG and PVI and ALAA. The patient is transferred to [facility] for inpatient rehabilitation. We are consulted for continuity of cardiac-related care. 1. CAD s/p CABG x 5 (NGUYEN-LAD, SVG-Olga Lidia, SVG-OM, SVG-LPLA, SVG-PDA) continue asa, BB, plavix, Zetia echo 08/12- LVEF 50-54%, left pleural effusion intolerant of statin, will consider nonstatin med such as Repatha or Nexletol outpatient LE edema subsided , off PO lasix d/t orthostatic hypotension- has midodrone as needed for hypotension 2. A-fib: Paroxysmal - rate controlled s/p PVI and ARISTEO amputation amiodarone 200 mg BID - taper dose prior to discharge Continue low-dose metoprolol to 12.5 mg BID no need for AC since left atrial appendage was removed during CABG 3. HTN BP stable Midodrine changed to 2.5 mg twice daily as needed Continue low-dose metoprolol to 12.5 mg BID 4. LADARIUS nephrology following 5. Dizziness 2/2 orthostatic hypotension -improving No report of orthostasis stasis today Change midodrine to as needed since BP stable compression stocking and abdominal binder before OOB Taken off Lasix, will re-assess need for diuretic on a daily basis 6. s/p Fall 08/22 and 08/24 CT head no acute finding R Elbow XR - no fracture L rib XR -healing fractures of the left lateral seventh and eighth ribs continue supportive care at 1214 at 1402 [facility] #:[id number] END OF REPORT [facility] 2022-08-25 05:53:00 [facility] Rehab Progress Note REPORT#:[id number] REPORT STATUS: Signed DATE:08/25/22 TIME: 0553 PATIENT: BRENNAN AHN UNIT #: [id number] ROOM/BED: [place] [address] : 42 AGE: 82 SEX: M ATTEND: Arthur Fuentes MD ADM AUTHOR: Arthur Fuentes MD * ALL edits or amendments must be made on the electronic/computer document * Subjective Chief complaint: Rehab follow-up Uneventful evening Complains of left chest and rib pain after fall yesterday Requires sitter due to falls NAD Eating well + BM Denies MORA/N/V/D/CP 14 systems reviewed and neg. except that above. History of present illness: 82-year-old male with PMH of Alzheimer's dementia, CKD, HTN, atrial fibrillation , history of SVT/ablation who was transferred to [facility] after being found to have multivessel coronary artery disease. Patient initially with was at home and developed chest pains. He was brought to [facility] and underwent left heart cath which revealed [...] of function was independent. Currently patient has generalized weakness. He lives by himself in a one-step up house. He denies any shortness of breath, nausea, vomiting, fever, chills. Denies chest pain. He is complaining of some constipation. He tells me that is in the process of selling his home. Preadmission screen was completed. Patient admitted to IRF. Objective General VS: Vital Signs: Date Time Temp Pulse Resp B/P B/P Pulse O2 O2 Flow FiO2 Mean Ox Delivery Rate 08/25 0447 97.3 73 18 120/76 90.6 96 Room air 08/25 0018 97.5 67 18 126/74 91.3 93 08/25 2203 97.9 97 18 92/52 64.9 93 Room air 08/25 2155 98.6 82 17 123/70 87.4 94 Room air 08/24 2152 98.4 78 18 145/70 94.9 95 Room air 08/24 2040 93 Room air 08/24 1920 97.5 84 19 155/77 102.9 99 Room air 08/24 1534 77 19 145/76 99.0 08/24 1110 76 18 156/84 107.9 96 Room air 08/24 0647 97.5 72 18 132/62 85.3 97 PATIENT WEIGHT: Weight (lb): 221 Weight (oz): 9.03 Weight (kg): 100.500 Medications: Active Meds + DC'd Last 24 Hrs Lidocaine (LIDODERM) 1 PATCH DAILY TOPICAL Midodrine [...] Sodium (COLACE) 100 MG BID PO Ipratropium [place] (ATROVENT) 500 MCG RTQ6H INH Sennosides (Senna Lax 8.6 MG TABLET) 17.2 MG BEDTIME PO Hydralazine HCl (APRESOLINE) 10 MG Q6H PRN PRN IV Acetaminophen (TYLENOL) 650 MG Q4H PRN PRN PO Ipratropium [place] (ATROVENT) 500 MCG RTQ2H PRN PRN INH Melatonin (Melatonin) 6 MG BEDTIME PRN PO Ondansetron HCl (ZOFRAN ODT) 4 MG TID PRN PRN SL Physical Exam General appearance: alert, awake, no acute distress Psych: alert, normal affect, oriented x 3 HEENT: anicteric, mucosal membranes moist, pupils reactive to light, sclera clear Neck: non-tender, supple, no JVD Cardiovascular: irregular rhythm, S1/S2, cap refill wnl, pulses intact Respiratory: diminished breath sounds, on oxygen, aerating well Abdomen: bowel sounds present, non-distended, soft, non-tender Skin: dry, normal temperature, no rash, bruising R thigh, mild L thigh, BUE, R hand Sl tender/edema, sternum incision RSH site CDI, bruising L chest wall, mildly tender, R elbow abrasion Musculoskeletal - general: Musculoskeletal - general: OA changes, normal tone, no swelling, Moves all 4 exts AG, calves NT, no cords, Homans neg Neuro/GATE GUARD: alert, oriented X 3, CNII-XII intact, normal speech, no motor deficits, no sensory deficits Results Findings/Data: Laboratory Tests: 08/24 1020 Urines Urine Color (YEL/STRAW) ALBERTO H Urine Appearance (CLEAR) CLEAR Urine pH (5.0 - 7.0) 5.0 Ur Specific [place] (1.005 - 1.030) 1.011 Urine Protein (NEGATIVE) [...] Laboratory Tests 08/23 08/24 08/25 0700 1020 0515 Chemistry Sodium (134 - 147 mEq/L) 138 136 [...] % (Auto) (14.0 - 32.0 %) 8.0 [place] % (Auto) (4.8 - 9.0 %) 6.8 Eos % (Auto) (0.3 - 3.7 %) 6.5 Baso % (Auto) (0.0 - 2.0 %) 0.8 Neut # (Auto) (2.0 - 7.6 x10 3/uL) 8.00 Lymph # (Auto) (1.0 - 3.8 x10 3/uL) 0.83 [place] # (Auto) (0.1 - 0.8 x10 3/uL) [...] x10 3/uL) 0.00 Urines Urine Color (YEL/STRAW) ALBERTO Urine Appearance (CLEAR) CLEAR Urine pH (5.0 - 7.0) 5.0 Ur Specific [place] (1.005 - 1.030) 1.011 Urine Protein (NEGATIVE) [...] Chemistry Cortisol AM Sample (ug/dL) 29.44 Radiology data: Recent Impressions: RADIOLOGY - XR RIBS UNI 2 V LT 08/24 1455 Report Impression - Status: SIGNED Entered: 08/24/2022 1606 IMPRESSION: Healing fractures of the left lateral 7th and 8th ribs. Small left pleural effusion. Impression By: [email or web address] - Florentino Perez M.D. Diagnosis, Assessment Plan Problem List/A P: 1. CAD (coronary artery disease) 2. Afib 3. HTN (hypertension) 4. S/P CABG x 5 5. Impaired functional mobility, balance, gait, and endurance Free Text A P: Assessment: Multivessel CAD 08/10: S/p CABG x5-Dr. Josephine Loredo-fib s/p a ARISTEO Endoscopic RGSV harvest 08/16: Echo-EF 50-54%, small pericardial effusion Small bilateral pleural effusions. Muscle weakness Unsteady gait Alzheimer's dementia (as per family), poor memory Postoperative anemia LADARIUS on CKD HTN Impairment in self-care, ADLs and functional mobility Plan: -Continue PT/OT -Case management for safe discharge planning. -Decubitus prevention-protective hydrating lotion-turn every 2 hours-offload -Bowel program-MiraLAX, senna -Nutrition, monitor the patient's p.o. intake, check albumin 3.5 and prealbumin 14.3, dietary consult, protein supplements. Cardiac diet. BMI above normal parameters. Working with dietary, follow up with PCP -Strict fall and safety precaution -DVT prophylaxis-SCDs -GI prophylaxis on Protonix -CAD on Plavix and aspirin, intolerant to statins -Pulmonary toilet frequent I-S, nebs, wean O2 -Early mobilization-OOB to chair -Work on bed mobility, transfer training, ADLs, pre-gait and gait exercises as tolerable. -Increase endurance and strength -Pain management -Postop care as per CVS -Monitor telemetry -Cardiology on case -LADARIUS as per nephrology-He was following progress man in [place] so plan to refer to his progress man post discharge. -Dementia/confusion-Higher level of nursing care and monitoring for safety -Strict sternal precautions-patient with poor carryover of sternal precautions -Monitor sites of bruising and right hand pain-from previous phlebotomy sites-no signs of infection -Labs reviewed-WBC normal, hemoglobin 9.1, 8.9, 9.7 platelets stable, creatinine 1.9, 2.2, 1.9 magnesium normal, HgbA1C 5.2. -Anemia-vitamin B12 and ferrous sulfate -HTN-BP stable-orthostasis/dizziness-di uretics reduced-midodrine added as needed -use ENZO hose and abdominal binder when out of bed-monitor. Medications being monitored by cardiology -Removed sutures x2 from lower chest on 08/25 -Follow-up with PCP for dementia evaluation -Dysuria-UA negative-completed Pyridium-symptoms resolved -08/22: Fall: Seen by trauma team after fall. CT head negative. Right shoulder x -ray negative for fracture. Patient patient appears to be at his baseline -08/24: Fall-no head injury-left rib pain-left rib film-no acute fractures, healing fractures of the left lateral 7th and 8th ribs. Small left pleural effusion-Lidoderm patch-monitor -RN called me this afternoon and said pt's R elbow hurting more. 2 view R elbow x ray-no acute fracture-Lidoderm patch-pain management -Advance therapies as tolerable -1:1 sitter due to multiple falls -Patient able to ambulate 50 to 55 feet with rolling walker and has significant issues with memory. Patient making slow progress with functional goals limited due to cognitive deficits. Poor carryover of sternal precautions. Requires verbal cues to maintain sternal precautions with transfers. PM R Please see team note. Plan and goals discussed with the patient. I agree with the teams finding ELOS: [08/29] DC-SNF placement DME-bedside commode, rolling walker Total time was 34 minutes > 50% with patient performing physical examination, discussing with patient about fall precaustions, 1:1 sitter, discharge plans, sternal precautions, plan of care, goals, therapies, progress, medications, labs. All questions answered Consultants: cardiology, cardiovascular surgery, hospitalist, nephrology Rehab attestation: Face to face exam completed. Treatment plan discussed with patient. Meets continued stay criteria. Agree with interdisciplinary treatment plan. at 1050 RPT #:[id number] END OF REPORT [facility] 2022-08-24 14:22:00 [facility] Internal Medicine Prog. Note REPORT#:[id number] REPORT STATUS: Signed DATE:08/24/22 TIME: 1422 PATIENT: BRENNAN AHN UNIT #: [id number] ROOM/BED: [place] [address] : 42 AGE: 82 SEX: M ATTEND: Arthur Fuentes MD ADM AUTHOR: Devin Fox DO * ALL edits or amendments must be made on the electronic/computer document * Subjective Chief complaint: pt fell again today. c/o R elbow pain Review of Systems All systems rev neg: except as marked Objective General VS/I O: Vital Signs Date Temp Pulse Resp B/P B/P Mean Pulse Ox FiO2 08/23-08/24 97.5-98.6 62-85 16-20 105-156/53-84 70.2-107.9 94-97 Last [...] Number Voids 0 PATIENT WEIGHT: Weight (lb): 221 Weight (oz): 9.03 Weight (kg): 100.500 Medications: Active Meds + DC'd Last 24 Hrs Lidocaine (LIDODERM) 1 PATCH DAILY TOPICAL Midodrine [...] Sodium (COLACE) 100 MG BID PO Ipratropium [place] (ATROVENT) 500 MCG RTQ6H INH Sennosides (Senna Lax 8.6 MG TABLET) 17.2 MG BEDTIME PO Hydralazine HCl (APRESOLINE) 10 MG Q6H PRN PRN IV Acetaminophen (TYLENOL) 650 MG Q4H PRN PRN PO Ipratropium [place] (ATROVENT) 500 MCG RTQ2H PRN PRN INH Melatonin (Melatonin) 6 MG BEDTIME PRN PO Ondansetron HCl (ZOFRAN ODT) 4 MG TID PRN PRN SL Physical Exam General appearance: alert, awake, oriented Head/Eyes: EOMI, PERRLA Neck: non-tender, no JVD Cardiovascular: normal heart sounds, regular rate rhythm Respiratory: aerating well, clear to auscultation Abdomen: non-tender, normal bowel sounds Extremities: Extremities: no cyanosis, no edema Neuro/GATE GUARD: alert, oriented x 3, CNII-XII intact Results Findings/Data: Laboratory Tests 08/24 1020 Urines Urine Color (YEL/STRAW) ALBERTO H Urine Appearance (CLEAR) CLEAR Urine pH (5.0 - 7.0) 5.0 Ur Specific [place] (1.005 - 1.030) 1.011 Urine Protein (NEGATIVE) [...] Urine Mucus (NONE SEEN /LPF) TRACE Radiology data: Recent Impressions: RADIOLOGY - XR ELBOW 2 VIEWS RT 08/23 1840 Report Impression - Status: SIGNED Entered: 08/23/20221922 IMPRESSION: No fracture or dislocation. Impression By: Aditya - Madi Pope M.D. Diagnosis, Assessment Plan Hospital course to date: 82-year-old male with past medical history of hypertension, atrial fibrillation, supraventricular tachycardia status post ablation who was admitted with reports of multivessel coronary artery disease found on a cardiac catheterization done at [facility]. Patient was transferred to [facility] for CABG. He underwent [id number]. 1. Coronary artery disease -Status post CABG x5, ALAA, PVI -Continue metoprolol, Plavix, aspirin 2. Atrial fibrillation -Continue po amiodarone for rate control - taper AMIO per cards -Continue metoprolol -Monitor and review telemetry 3. Debility/ -.-PT/OT - PMR - Inpt Rehab 4. ARF - Trend cr 1.3-1.9-2.2-2.0-1.9-2.2 - post op, post lasix therefore likely pre-renal - baseline CKD is suspected - nephro consulted 5. anemia - acute, post op expecteed - monitor and transfuse if hg <7 - cont po Iron - Trend Hg 9.1 6. Delirium/ dementia -Likely due to sundowning -Monitor closely -Patient is neurologically intact 7. FALLs - 08/22, 08/24 - ct head neg - R shoulder Xr neg - R elbow pain- mild- pain meds prn 8. Dysuria - UA neg - on pyridium prn - consider Urologist consult 9. Orthostatic hypotension - cont Midodrine and adjust up - check orthostatic VS d/w RN and Pt in details total time spent 35mins d/w Consultants: cardiology, cardiovascular surgery, hospitalist, nephrology Quality: Gen Med Crit Care Current Medications Current medication review: I attest that the foregoing medication list in the medical record is true, accurate, and complete to the best of my knowledge. Advanced Care Plan 65 or Older Discussed with: patient Discussion included: code status at 0917 RPT #:[id number] END OF REPORT [facility] 2022-08-24 11:36:00 [facility] Cardiothoracic Surgery Prog REPORT#:[id number] REPORT STATUS: Signed DATE:08/24/22 TIME: 1136 PATIENT: BRENNAN AHN UNIT #: [id number] ROOM/BED: [place] [address] : 42 AGE: 82 SEX: M ATTEND: Arthur Fuentes MD ADM AUTHOR: Shiloh Pimentel CHIEF ACCOUNTANT * ALL edits or amendments must be made on the electronic/computer document * General Status post: CABG PVI Subjective Chief complaint: Follow up CABG Review of Systems Constitutional: Denies: chills, fever, malaise. Allergy/Immun: Denies: allergic reaction. ENT: Denies: sore throat. Respiratory: Denies: hemoptysis, SOB. GI: Denies: nausea, vomiting. Heme: Denies: bleeding. Neuro: Denies: headache. All systems rev neg: except as marked Objective General VS/I O Last Documented: Result Date Time Pulse Ox [...] Number Voids 0 PATIENT WEIGHT: Weight (lb): 221 Weight (oz): 9.03 Weight (kg): 100.500 Physical Exam General appearance: alert, mental status normal, no respiratory distress Wound/incision: Location: sternum HEENT: anicteric Cardiovascular: normal heart sounds, regular rate rhythm Respiratory: aerating well, clear to auscultation, symmetric expansion, no distress Abdomen: soft, non-tender, no distention Extremities: moves all Neuro/GATE GUARD: alert, oriented X 3, normal speech, no motor deficits Psychiatry: normal affect, normal mood Current Medications Medications: Active Meds + DC'd Last 24 Hrs Midodrine (PROAMATINE) 2.5 MG BID 9A 5P [...] Sodium (COLACE) 100 MG BID PO Ipratropium [place] (ATROVENT) 500 MCG RTQ6H INH Sennosides (Senna Lax 8.6 MG TABLET) 17.2 MG BEDTIME PO Hydralazine HCl (APRESOLINE) 10 MG Q6H PRN PRN IV Acetaminophen (TYLENOL) 650 MG Q4H PRN PRN PO Ipratropium [place] (ATROVENT) 500 MCG RTQ2H PRN PRN INH Melatonin (Melatonin) 6 MG BEDTIME PRN PO Ondansetron HCl (ZOFRAN ODT) 4 MG TID PRN PRN SL Results Findings/Data: Laboratory Tests 08/24 1020 Urines Urine Color (YEL/STRAW) ALBERTO H Urine Appearance (CLEAR) CLEAR Urine pH (5.0 - 7.0) 5.0 Ur Specific [place] (1.005 - 1.030) 1.011 Urine Protein (NEGATIVE) [...] Urine Mucus (NONE SEEN /LPF) TRACE Radiology data: Recent Impressions: RADIOLOGY - XR ELBOW 2 VIEWS RT 08/23 1840 Report Impression - Status: SIGNED Entered: 08/23/20221922 IMPRESSION: No fracture or dislocation. Impression By: Aditya Pope M.D. Quality: Trauma Gen Surg Advanced Care Plan 65 or Older Discussed with: patient Discussion included: code status Current Medications Current medication review: I attest that the foregoing medication list in the medical record is true, accurate, and complete to the best of my knowledge. Diagnosis, Assessment Plan Hospital course to date: Hospital course to date: 82 year old with PMH of hypertension, atrial fibrillation, On Eliquis, Hx of SVT ablation 20 years ago transferred to [facility] with new findings of multi-vessel CAD. He reports he was woken from Sleep on Sunday AM with COmplaints of chest pains. EMS aas called and patient was taken to [facility]. He underwent LHC and found to have multi-vessel CAD by Dr Sanchez. Patient was transferred to [facility] for CABG. Patient lives independently. Daughter is at bedside. Patient reports last dose of Elliquis was Sunday AM. Echo was done at [facility] showing EF 55%, Mild MR, Mild AI, mild LVH. According to his records, he has a hx of Chronic kidney disease with baseline Creatine reportedly 1.5. He does report he has seen a renal MD in the past. Assessment/ Plan 1) CAD, Mutli-vessel 2) hypertension Continue BBLKR Add Norvasc 5 mg 3) Atrial fibrillation. Last dose of Eliquis Sunday AM Obtain EKG 4) BPH Continue flomax Workup for CABG underway. Patient was seen and examined by Dr Dee. Coronary artery bypass surgery was discussed with the patient. The risk of the operation, including the STS score, cristian of blleding, infection, heart attack, stroke, Tracheostomy etc discussed with the patient. CT chest, carotid US, Vein mapping ordered. 08/11/22 POD 1 s/p CABG x 5 (NGUYEN-LAD, SVG-Olga Lidia, SVG-OM, SVG-LPLA, SVG-PDA), PVI, ALAA, EVH (RGSV) Patient hemodynamically stable this morning, having episodes of vagal response and BP drops 20 points, SR and sinus arrythmnia noted on nuclear monitoring technician, V epicardial wires on backup rate of 50 Amiodarone bolus and drip Keep MS chest tube and monitor outputs, DC LP chest tube after ambulation Minimal oxygen requirements on 2l nasal cannula, encourage deep breathing and I- S use CXR and labs reviewed Pain management Glycemic control on insulin drip Cardiac diet, nutritional supplements Bowel regimen, + gas Strict I Os, daily weights, albmuin x 1 given for decreased UOP- monitor hourly SCDs for DVT and PPI for GI prophylaxis PT/OT Monitor patient closely in CVICU, continue supportive care Patient seen with Dr. Dee, plan of care discussed with ICU team. 08/12 Alert and oriented, up in the chair Remains on amiodarone drip for A-fib Wean dopamine off Chest x-ray reviewed. Breathing comfortably on room air Creatinine increased to 1.9, urine output 1.5 L last night after the boluses of Lasix Repeat renal panel today show creatinine 2.2. Nephrology consulted, hold off on additional Lasix Replace electrolytes Encourage I-S and mobilization Glycemic controlled Keep in CVICU for close monitoring Patient seen and plan reviewed with Dr Piper, Dr Kirkpatrick, [facility] and multidisciplinary team 08/13 Intermittently confused. Continue delirium precautions Minimal O2 requirements, wean O2 as tolerated Allow for permissive hypertension as urine output improved with higher blood pressure Monitor renal function Encourage p.o. intake, bowel regimen Remains in A-fib, heart rate fairly controlled. Amiodarone drip at 0.5 Discontinue mediastinal chest tube Glycemic control Keep in CVICU for close monitoring. Patient seen and plan reviewed with MCKAYLA Armenta multidisciplinary team Family updated at the bedside 08/14 Patient is alert and oriented, delirium precautions O2 requirements, encourage I-S Permissive hypertension for better renal perfusion Creatinine trending down, good urine output. Hold Lasix for now Encourage p.o. intake, bowel regimen Electrolyte replacement as needed Keep in CVICU today Plan for rehab. Awaiting insurance approval Patient was seen and plan reviewed with MCKAYLA Rojo and multidisciplinary team 08/15 No major events overnight Resp status stable on RA. Encourage IS HD stable. Remains in A fib, HR controlled Continue PO amio, BB increased to 25 mg BID Renal function improved, good UOP Will DC pacing wires tomorrow PT/OT Plan for rehab. Awaiting insurance approval Patient was seen and plan reviewed with MCKAYLA Rojo and multidisciplinary team 08/16 Creatine 1.9--> 2.0- Followed by Renal. appreciate input. DE-LINED. Longo out Ambulating. UO: PO lasix today. Cardiac: Atrial fib- rate controlled. On po amio- Pacing wires removed- Echo ordered. DVT studies orderd. Respiratory: On room air. Small left pleural effsuion. GI: + BM : Voiding well. Renal following Dispo: Rehab when bed available. 08/17 Patient resting comfortable. Seen in inpatient rehab. Ambulating well. Working with PT Voiding well. Positive bowel movements. Respiratory on room air. Cardiac: Sinus rhythm. Will decrease amiod to 200 BID GI: + BM Continue pT/OT making good progress. 08/21 Patient seen in rehab Respiratory status stable on RA No changes in sternal incision. Continue sternal precautions for 6 weeks Monitor renal function. Diuresis by nephrology Encourge PO intake, bowel regimen Continue rehab 08/24 S/p fall on 08/22, CT negative for acute process Patient was having orthostatic hypotension, medications adjusted, midodrine 5 mg 3 times daily, compression stockings and abdominal binder before out of bed Volume status improved. Lasix discontinued No further episodes of orthostatic hypotension today Continue rehab Consultants: cardiology, cardiovascular surgery, hospitalist, nephrology at 1141 at 1525 RPT #:[id number] END OF REPORT [facility] 2022-08-24 11:03:00 [facility] Nephrology Progress Note REPORT#:[id number] REPORT STATUS: Signed DATE:08/24/22 TIME: 1103 PATIENT: BRENNAN AHN UNIT #: [id number] ROOM/BED: [place] [address] : 42 AGE: 82 SEX: M ATTEND: Arthur Fuentes MD ADM AUTHOR: Maura Terrazas MD * ALL edits or amendments must be made on the electronic/computer document * Subjective Chief complaint: chest pain HPI: 82-year-old male known to have hypertension, atrial fibrillation, supraventricular tachycardia with requiring ablation presenting with multivessel cardiovascular disease and he underwent CABG 07/13/2022. He endorsed having kidney issues in the past and seeing a progress man at [place] but his kidney function had been stable since then.He developed oliguria,LADARIUS and hypervolemia post CABG but had now improved and was transferred to rehab. 08/24 Patient appearing comfortable,denying all systemic review including dizziness. Objective General VS/I O: Vital Signs: Date Time Temp Pulse Resp [...] Number Voids 0 PATIENT WEIGHT: Weight (lb): 221 Weight (oz): 9.03 Weight (kg): 100.500 Physical Exam General appearance: alert, awake, oriented Head/eyes: atraumatic, clear cornea, EOMI ENT: moist mucous membranes, normal nose Neck: no JVD, no masses or swelling Cardiovascular: normal heart sounds, regular rate and rhythm Respiratory: aerating well, clear to auscultation Abdomen: non-tender, soft Genitourinary: no bladder distention, no flank pain Extremities: pitting edema, no gangrene, no swelling Diagnosis, Assessment Plan Free Text A P: 82-year-old male known to have hypertension, atrial fibrillation, supraventricular tachycardia with requiring ablation presenting with multivessel cardiovascular disease and he underwent CABG 07/13/2022. Transferred [...] recently had surgery. Resolving with better hemodynamics. His kidney function was stable plan was to [...] stable renal function. Plan to keepMAP>65 and avoid nephrotoxic agents. He was following progress man in [place] so plan to refer to his progress man post discharge. 2. Hypervolemia:Patient at high risk of volume overload so would reccommend lasix PO, lasix held due to hypotension .Volume improving slowly. 3. Electrolytes: His electrolytes appear to be in normal range plan is to monitor and replace as needed. 4. Hypotension: Midodrine dose increased .Plan to monitor. 08/24 1. LADARIUS on CKD: Patient with stable renal function. Plan to keepMAP>65 and avoid nephrotoxic agents. He was following progress man in [place] so plan to refer to his progress man post discharge. 2. Hypervolemia:Patient at high risk of volume overload so would reccommend lasix PO, lasix held due to hypotension .Volume stable. 3. Electrolytes: His electrolytes appear to be in normal range plan is to monitor and replace as needed. 4. Hypotension: Midodrine dose increased .Plan to monitor and increase midodrine if SBP<110. Consultants: cardiology, cardiovascular surgery, hospitalist, nephrology at 1105 RPT #:[id number] END OF REPORT [facility] 2022-08-24 10:51:00 [facility] ([facility]) Cardiology Progress Note REPORT#:[id number] REPORT STATUS: Signed DATE:08/24/22 TIME: 1051 PATIENT: BRENNAN AHN UNIT #: [id number] ROOM[facility]BED: [facility] : 42 AGE: 82 SEX: M ATTEND: Arthur Fuentes MD ADM AUTHOR: Catrina Shetty * ALL edits or amendments must be made on the electronic/computer document * Subjective Comments: Event noted. Patient fell again today. He has now a one-to-one sitter Objective General VS/I O: 24 hour I O ending at 0700: [...] 137/80 99.4 97 PATIENT WEIGHT: Weight (lb): 221 Weight (oz): 9.03 Weight (kg): 100.500 Medications: Active Meds + DC'd Last 24 Hrs Lidocaine (LIDODERM) 1 PATCH DAILY TOPICAL Metoprolol [...] Sodium (COLACE) 100 MG BID PO Ipratropium [place] (ATROVENT) 500 MCG RTQ6H INH Sennosides (Senna Lax 8.6 MG TABLET) 17.2 MG BEDTIME PO Hydralazine HCl (APRESOLINE) 10 MG Q6H PRN PRN IV Acetaminophen (TYLENOL) 650 MG Q4H PRN PRN PO Ipratropium [place] (ATROVENT) 500 MCG RTQ2H PRN PRN INH Melatonin (Melatonin) 6 MG BEDTIME PRN PO Ondansetron HCl (ZOFRAN ODT) 4 MG TID PRN PRN SL Physical Exam General appearance: chronically ill appearing, no acute distress Neck: non-tender, no JVD Cardiovascular: CV assessment: irregularly irregular Respiratory: decreased breath sounds, no distress Abdomen: soft, non-tender, normal bowel sounds, no distention Genitourinary: no flank pain, no urinary catheter Lower extremity: LE assessment: edema (trace edema RLE - harvest site), no edema Musculoskeletal: normal inspection Neuro/GATE GUARD: alert Skin: dry Psychiatry: normal affect, normal mood Results Findings/Data: Laboratory Tests 08/24 1020 Urines Urine Color (YEL/STRAW) ALBERTO H Urine Appearance (CLEAR) CLEAR Urine pH (5.0 - 7.0) 5.0 Ur Specific [place] (1.005 - 1.030) 1.011 Urine Protein (NEGATIVE) [...] Urine Mucus (NONE SEEN /LPF) TRACE Radiology data: Recent Impressions: RADIOLOGY - XR ELBOW 2 VIEWS RT 08/23 1840 Report Impression - Status: SIGNED Entered: 08/23/20221922 IMPRESSION: No fracture or dislocation. Impression By: NayelyAMRenetta Pope M.D. Telemetry Interpretation: Atrial fibrillation with controlled rate Diagnosis, Assessment Plan Free Text DxA P Notes Free Text DxA P Notes: 82 YO male with MHX of Afib, HTN, HLD, CAD who is s/p 5 vessel CABG and PVI and ALAA. The patient is transferred to [facility] for inpatient rehabilitation. We are consulted for continuity of cardiac-related care. 1. CAD s/p CABG x 5 (NGUYEN-LAD, SVG-Olga Lidia, SVG-OM, SVG-LPLA, SVG-PDA) continue asa, BB, plavix, Zetia echo 08/12- LVEF 50-54%, left pleural effusion intolerant of statin, will consider nonstatin med such as Repatha or Nexletol outpatient LE edema subsided , off PO lasix d/t orthostatic hypotension 2. A-fib: Paroxysmal - rate controlled s/p PVI and ARISTEO amputation amiodarone 200 mg BID - taper dose prior to discharge Continue low-dose metoprolol to 12.5 mg BID no need for AC since left atrial appendage was removed during CABG 3. HTN BP stable Midodrine changed to 2.5 mg twice daily as needed Continue low-dose metoprolol to 12.5 mg BID 4. LADARIUS nephrology following 5. Dizziness 2/2 orthostatic hypotension -improving No report of orthostasis stasis today Change midodrine to as needed since BP stable compression stocking and abdominal binder before OOB Taken off Lasix, will re-assess need for diuretic on a daily basis 6. s/p Fall 08/22 and 08/24 CT head no acute finding R Elbow XR - no fracture L rib XR -healing fractures of the left lateral seventh and eighth ribs at 1708 at 1402 [facility] #:[id number] END OF REPORT [facility] 2022-08-24 08:21:00 [facility] ([facility]) Urology Consult Note REPORT#:[id number] REPORT STATUS: Signed DATE:08/24/22 TIME: 820 PATIENT: BRENNAN AHN UNIT #: [id number] ROOM/BED: [place] [address] : 42 AGE: 82 SEX: M ATTEND: Arthur Fuentes MD ADM AUTHOR: Aubrey Keith MD * ALL edits or amendments must be made on the electronic/computer document * History of Present Illness HPI Requesting clinician: Dr. Fuentes Reason for consult: Dysuria Chief complaint: CABG HPI: Brennan Ahn is a 82-year-old male history of [...] 08/21/2022 that was negative for nitrites, leukocyte Esterace , although has trace bacteria. History Past medical history: Reports: Atrial fibrillation, Coronary artery disease, Dementia, Kidney disease/ stones. Past surgical history: Reports: CABG. Additional surgical history: Crevial Laminectomy amputation of left atrial appendage Family history: Reports: Hypertension. Alcohol use: Denies EtOH use Drug use: Denies recreational drugs Smoking status for patients 13 years old or older: Former Smoker Allergies: Coded Allergies: Gybleuw-JOM-FbZ Reductase Inhibitor (Severe, UNKNOWN 08/16/22) Objective VS/I O: Last Documented: Result Date Time Pulse Ox [...] Number Voids 0 PATIENT WEIGHT: Weight (lb): 221 Weight (oz): 9.03 Weight (kg): 100.500 Free text obj notes: Physical Examination: Constitutional: no acute distress Eyes: normal external eye, conjunctiva and sclera normal Ears, nose, mouth, throat: normocephalic, moist mucous membranes Respiratory: respirations unlabored on room air Gastrointestinal: soft, non-distended, non-tender, no costovertebral angle tenderness Musculoskeletal: no clubbing, cyanosis or edema Skin: no rashes Neurologic: no focal deficits Psychiatric: appropriate mood and affect Hematologic: no bruising Diagnosis, Assessment Plan Diagnosis, Assessment Plan Free Text A P: Brennan Ahn is a 82-year-old status post CABG 07/13/2022, 3-month history of dysuria, no other LUTS. Ua from 08/21/22 negative for nitrites. Dysuria is refractory to pyridium - Straight cath Ucx - BS PVR, discussed with nursing to notify me of result - Continue pyridium - Pending evaluatiion, patient may benefit from outpatient cystoscopy Aubrey Keith MD at 0827 RPT #:[id number] END OF REPORT [facility] 2022-08-24 08:12:00 [facility] Progress Note REPORT#:[id number] REPORT STATUS: Signed DATE:08/24/22 TIME: 08 PATIENT: BRENNAN AHN UNIT #: [id number] ROOM/BED: [place] [address] : 42 AGE: 82 SEX: M ATTEND: Arthur Fuentes MD ADM AUTHOR: Arthur Fuentes MD * ALL edits or amendments must be made on the electronic/computer document * Subjective Chief complaint: Rehab follow-up Patient had another fall, did not hit head Complains of left rib pain NAD Eating well + BM Denies MORA/N/V/D/CP 14 systems reviewed and neg. except that above. History of present illness: 82-year-old male with PMH of Alzheimer's dementia, CKD, HTN, atrial fibrillation , history of SVT/ablation who was transferred to [facility] after being found to have multivessel coronary artery disease. Patient initially with was at home and developed chest pains. He was brought to [facility] and underwent left heart cath which revealed [...] of function was independent. Currently patient has generalized weakness. He lives by himself in a one-step up house. He denies any shortness of breath, nausea, vomiting, fever, chills. Denies chest pain. He is complaining of some constipation. He tells me that is in the process of selling his home. Preadmission screen was completed. Patient admitted to IRF. Objective General VS: Vital Signs: Date Time Temp Pulse Resp [...] 118/65 82.5 98 PATIENT WEIGHT: Weight (lb): 221 Weight (oz): 9.03 Weight (kg): 100.500 Medications: Active Meds + DC'd Last 24 Hrs Metoprolol Tartrate (LOPRESSOR) 12.5 MG Q12HR PO [...] Sodium (COLACE) 100 MG BID PO Ipratropium [place] (ATROVENT) 500 MCG RTQ6H INH Sennosides (Senna Lax 8.6 MG TABLET) 17.2 MG BEDTIME PO Hydralazine HCl (APRESOLINE) 10 MG Q6H PRN PRN IV Acetaminophen (TYLENOL) 650 MG Q4H PRN PRN PO Ipratropium [place] (ATROVENT) 500 MCG RTQ2H PRN PRN INH Melatonin (Melatonin) 6 MG BEDTIME PRN PO Ondansetron HCl (ZOFRAN ODT) 4 MG TID PRN PRN SL Physical Exam General appearance: alert, awake, no acute distress Psych: alert, normal affect, oriented x 3 HEENT: anicteric, mucosal membranes moist, pupils reactive to light, sclera clear Neck: non-tender, supple, no JVD Cardiovascular: irregular rhythm, S1/S2, cap refill wnl, pulses intact Respiratory: diminished breath sounds, on oxygen, aerating well Abdomen: bowel sounds present, non-distended, soft, non-tender Skin: dry, normal temperature, no rash, bruising R thigh, mild L thigh, BUE, R hand Sl tender/edema, sternum incision RSH site CDI R elbow abrasion Musculoskeletal - general: Musculoskeletal - general: OA changes, normal tone, no swelling, Moves all 4 exts AG, calves NT, no cords, Homans neg Neuro/GATE GUARD: alert, oriented X 3, CNII-XII intact, normal speech, no motor deficits, no sensory deficits Results Findings/Data: Laboratory Tests 08/21 08/22 08/23 1200 0700 0700 [...] % (Auto) (14.0 - 32.0 %) 8.0 Briscoe % (Auto) (4.8 - 9.0 %) 6.8 Eos % (Auto) (0.3 - 3.7 %) 6.5 Baso % (Auto) (0.0 - 2.0 %) 0.8 Neut # (Auto) (2.0 - 7.6 x10 3/uL) 8.00 Lymph # (Auto) (1.0 - 3.8 x10 3/uL) 0.83 Briscoe # (Auto) (0.1 - 0.8 x10 3/uL) [...] pH (5.0 - 7.0) 5.0 Ur Specific [place] (1.005 - 1.030) 1.011 Urine Protein (NEGATIVE) [...] Urine Mucus (NONE SEEN /LPF) TRACE Radiology data: Recent Impressions: RADIOLOGY - XR SHOULDER 2 + V RT 08/22 1525 Report Impression - Status: SIGNED Entered: 08/22/2022 1752 IMPRESSION: No acute findings. Impression By: [email or web address] - Ramakrishna Dhaliwal M.D. CAT SCAN - CT HEAD/BRAIN W/O CONT 08/22 1546 Report Impression - Status: SIGNED Entered: 08/22/2022 1658 IMPRESSION: No acute intracranial abnormality, as above. Impression By: [email or web address] - Yosi Padron M.D. RADIOLOGY - XR ELBOW 2 VIEWS RT 08/23 1840 Report Impression - Status: SIGNED Entered: 08/23/2022 1923 IMPRESSION: No fracture or dislocation. Impression By: [email or web address] - Madi Pope M.D. Diagnosis, Assessment Plan Problem List/A P: 1. CAD (coronary artery disease) 2. Afib 3. HTN (hypertension) 4. S/P CABG x 5 5. Impaired functional mobility, balance, gait, and endurance Free Text A P: Assessment: Multivessel CAD 08/10: S/p CABG x5-Dr. Josephine Loredo-fib s/p a ARISTEO Endoscopic RGSV harvest 08/16: Echo-EF 50-54%, small pericardial effusion Small bilateral pleural effusions. Muscle weakness Unsteady gait Alzheimer's dementia (as per family), poor memory Postoperative anemia LADARIUS on CKD HTN Impairment in self-care, ADLs and functional mobility Plan: -Continue PT/OT -Case management for safe discharge planning. -Decubitus prevention-protective hydrating lotion-turn every 2 hours-offload -Bowel program-MiraLAX, senna -Nutrition, monitor the patient's p.o. intake, check albumin 3.5 and prealbumin 14.3, dietary consult, protein supplements. Cardiac diet. BMI above normal parameters. Working with dietary, follow up with PCP -Strict fall and safety precaution -DVT prophylaxis-SCDs -GI prophylaxis on Protonix -CAD on Plavix and aspirin, intolerant to statins -Pulmonary toilet frequent I-S, nebs, wean O2 -Early mobilization-OOB to chair -Work on bed mobility, transfer training, ADLs, pre-gait and gait exercises as tolerable. -Increase endurance and strength -Pain management -Postop care as per CVS -Monitor telemetry -Cardiology on case -LADARIUS as per nephrology -Dementia/confusion-Higher level of nursing care and monitoring for safety -Strict sternal precautions-patient with poor carryover of sternal precautions -Monitor sites of bruising and right hand pain-from previous phlebotomy sites-no signs of infection -Labs reviewed-WBC normal, hemoglobin 9.1, 8.9, 9.7 platelets stable, creatinine 1.9, 2.2, magnesium normal, HgbA1C 5.2. -Anemia-vitamin B12 and ferrous sulfate -Orthostasis/dizziness-diuretic s reduced-midodrine added-use ENZO hose and abdominal binder when out of bed-monitor. BP stable. Medications being monitored by cardiology -Removed sutures x2 from lower chest on 08/25 -Requires verbal cues to maintain sternal precautions with transfers -Follow-up with PCP for dementia evaluation -Dysuria-UA negative-continue with Pyridium-monitor -08/22: Fall: Seen by trauma team after fall. CT head negative. Right shoulder x-ray negative for fracture. Patient patient appears to be at his baseline -08/24: Fall-no head injury-left rib pain-check rib films-Lidoderm patch -RN called me this afternoon and said pt's R elbow hurting more. 2 view R elbow x ray-no acute fracture-Lidoderm patch-pain management -Patient making slow progress with functional goes due to impulsivity, poor memory and cognitive deficits. Poor carryover with sternal precautions. -Advance therapies as tolerable -1:1 sitter due to multiple falls Progress: PT REQUIRES REPETITION WITH STERNAL PRECAUTION CUES NON COMPLIANT,MIN A WITH STANDING DUE TO PT BEING NON COMPLIANT WITH PRECAUTIONS.ASSIST WITH THREADING PANTS AND DON OF SHOES AND AB BINDER.WC MOBILITY AROUND UNIT SLOW MOVING 5O'X3 REQUIRES SAFETY CUES,DYNAMIC STANDING ACTIVITIES WORKING STANDING TOLERANCE PT STANDING FOR 60-75 SEC AT TIME.GAIT TRAINING W/RW MAX A TODAY PATIENT UNSAFE WITH RW/UNSTEADY LIFTING RW AND TURNING IT WHEN LEAVING GYM LOSING BALANCE ASSIST WITH STEADYING. PM R Please see team note. Plan and goals discussed with the patient. I agree with the teams finding ELOS: [08/29] DC-SNF placement DME-bedside commode, rolling walker Total time was 34 minutes > 50% with patient performing physical examination, discussing with patient about fall precaustions, discharge plans, sternal precautions, plan of care, goals, therapies, progress, medications, labs. All questions answered Orders: Procedure Date/time Status XR RIBS UNI 2 V LT 08/24 1259 Active Case Management Consult 08/24 1149 Active 1:1 Sitter 08/24 1127 Active NEB TREATMENT SUBSQ 08/24 0241 Active NEB TREATMENT SUBSQ 08/22 2359 Complete NEB TREATMENT SUBSQ 08/21 2359 Complete Consultants: cardiology, cardiovascular surgery, hospitalist, nephrology Rehab attestation: Face to face exam completed. Treatment plan discussed with patient. Meets continued stay criteria. Agree with interdisciplinary treatment plan. at 1304 RPT #:[id number] END OF REPORT [facility] 2022-08-23 18:33:00 [facility] ([facility]) Nephrology Progress Note REPORT#:[id number] REPORT STATUS: Signed DATE:08/23/22 TIME: 1833 PATIENT: BRENNAN AHN UNIT #: [id number] ROOM[facility]BED: [facility] : 42 AGE: 82 SEX: M ATTEND: Arthur Fuentes MD ADM AUTHOR: Maura Terrazas MD * ALL edits or amendments must be made on the electronic/computer document * Subjective Chief complaint: chest pain HPI: 82-year-old male known to have hypertension, atrial fibrillation, supraventricular tachycardia with requiring ablation presenting with multivessel cardiovascular disease and he underwent CABG 07/13/2022. He endorsed having kidney issues in the past and seeing a progress man at [place] but his kidney function had been stable since then.He developed oliguria,LADARIUS and hypervolemia post CABG but had now improved and was transferred to rehab. 08/23 Patient appearing comfortable,denying all systemic review including dizziness. Objective General VS/I O: Vital Signs: Date Time Temp Pulse Resp [...] Urine 200 339 PATIENT WEIGHT: Weight (lb): 221 Weight (oz): 9.03 Weight (kg): 100.500 Physical Exam General appearance: alert, awake, oriented Head/eyes: atraumatic, clear cornea, EOMI ENT: moist mucous membranes, normal nose Neck: no JVD, no masses or swelling Cardiovascular: normal heart sounds, regular rate and rhythm Respiratory: aerating well, clear to auscultation Abdomen: non-tender, soft Genitourinary: no bladder distention, no flank pain Extremities: pitting edema, no gangrene, no swelling Diagnosis, Assessment Plan Free Text A P: 82-year-old male known to have hypertension, atrial fibrillation, supraventricular tachycardia with requiring ablation presenting with multivessel cardiovascular disease and he underwent CABG 07/13/2022. Transferred [...] recently had surgery. Resolving with better hemodynamics. His kidney function was stable plan was to [...] stable renal function. Plan to keepMAP>65 and avoid nephrotoxic agents. He was following progress man in [place] so plan to refer to his progress man post discharge. 2. Hypervolemia:Patient at high risk of volume overload so would reccommend lasix PO, lasix held due to hypotension .Volume improving slowly. 3. Electrolytes: His electrolytes appear to be in normal range plan is to monitor and replace as needed. 4. Hypotension: Midodrine dose increased .Plan to monitor. Consultants: cardiology, cardiovascular surgery, hospitalist, nephrology at 1843 RPT #:[id number] END OF REPORT [facility] 2022-08-23 15:02:00 [facility]) Internal Medicine Prog. Note REPORT#:[id number] REPORT STATUS: Signed DATE:08/23/22 TIME: 1502 PATIENT: BRENNAN AHN UNIT #: [id number] ROOM/BED: [place] [address] : 42 AGE: 82 SEX: M ATTEND: Arthur Fuentes MD ADM AUTHOR: Devin Fox DO * ALL edits or amendments must be made on the electronic/computer document * Subjective Chief complaint: pt had a fall yesterday. c/o R elbow pain Review of Systems All systems rev neg: except as marked Objective General VS/I O: Vital Signs Date Temp Pulse Resp B/P B/P [...] Urine 200 339 PATIENT WEIGHT: Weight (lb): 221 Weight (oz): 9.03 Weight (kg): 100.500 Medications: Active Meds + DC'd Last 24 Hrs Metoprolol Tartrate (LOPRESSOR) 12.5 MG Q12HR PO [...] Sodium (COLACE) 100 MG BID PO Ipratropium [place] (ATROVENT) 500 MCG RTQ6H INH Sennosides (Senna Lax 8.6 MG TABLET) 17.2 MG BEDTIME PO Hydralazine HCl (APRESOLINE) 10 MG Q6H PRN PRN IV Acetaminophen (TYLENOL) 650 MG Q4H PRN PRN PO Ipratropium [place] (ATROVENT) 500 MCG RTQ2H PRN PRN INH Melatonin (Melatonin) 6 MG BEDTIME PRN PO Ondansetron HCl (ZOFRAN ODT) 4 MG TID PRN PRN SL Physical Exam General appearance: alert, awake, oriented Head/Eyes: EOMI, PERRLA Neck: non-tender, no JVD Cardiovascular: normal heart sounds, regular rate rhythm Respiratory: aerating well, clear to auscultation Abdomen: non-tender, normal bowel sounds Extremities: Extremities: no cyanosis, no edema Neuro/GATE GUARD: alert, oriented x 3, CNII-XII intact Results Findings/Data: Laboratory Tests 08/23/22 0700: [Embedded Image Not Available] Laboratory Tests 08/23 0700 Chemistry Sodium (134 - [...] (Auto) (14.0 - 32.0 %) 8.0 L [place] % (Auto) (4.8 - 9.0 %) 6.8 Eos % (Auto) (0.3 - 3.7 %) 6.5 H Baso % (Auto) (0.0 - 2.0 %) 0.8 Neut # (Auto) (2.0 - 7.6 x10 3/uL) 8.00 H Lymph # (Auto) (1.0 - 3.8 x10 3/uL) 0.83 L [place] # (Auto) (0.1 - 0.8 x10 3/uL) [...] (0.0 - 0.1 x10 3/uL) 0.00 Radiology data: Recent Impressions: RADIOLOGY - XR SHOULDER 2 + V RT 08/22 1525 Report Impression - Status: SIGNED Entered: 08/22/2022 1752 IMPRESSION: No acute findings. Impression By: [email or web address] Akash Dhaliwal M.D. CAT SCAN - CT HEAD/BRAIN W/O CONT 08/22 1546 Report Impression - Status: SIGNED Entered: 08/22/2022 1658 IMPRESSION: No acute intracranial abnormality, as above. Impression By: [email or web address] Akash Padron M.D. Diagnosis, Assessment Plan Hospital course to date: 82-year-old male with past medical history of hypertension, atrial fibrillation, supraventricular tachycardia status post ablation who was admitted with reports of multivessel coronary artery disease found on a cardiac catheterization done at [facility]. Patient was transferred to [facility] for CABG. He underwent [id number]. 1. Coronary artery disease -Status post CABG x5, ALAA, PVI -Continue metoprolol, Plavix, aspirin 2. Atrial fibrillation -Continue po amiodarone for rate control - taper AMIO per cards -Continue metoprolol -Monitor and review telemetry 3. Debility -.-PT/OT - PMR - Inpt Rehab 4. ARF - Trend cr 1.3-1.9-2.2-2.0-1.9-2.2 - post op, post lasix therefore likely pre-renal - baseline CKD is suspected - nephro consulted 5. anemia - acute, post op expecteed - monitor and transfuse if hg <7 - cont po Iron - Trend Hg 9.1 6. Delirium -Likely due to sundowning -Monitor closely -Patient is neurologically intact 7. FALL - ct head neg - R shoulder Xr neg - R elbow pain- mild- pain meds prn 8. Dysuria - UA neg - on pyridium prn - consider Urologist consult d/w RN and Pt in details total time spent 35mins d/w Consultants: cardiology, cardiovascular surgery, hospitalist, nephrology Quality: Gen Med Crit Care Current Medications Current medication review: I attest that the foregoing medication list in the medical record is true, accurate, and complete to the best of my knowledge. Advanced Care Plan 65 or Older Discussed with: patient Discussion included: code status at 0917 RPT #:[id number] END OF REPORT [facility] 2022-08-23 10:18:00 [facility] ([facility]) Cardiology Progress Note REPORT#:[id number] REPORT STATUS: Signed DATE:08/23/22 TIME: 1018 PATIENT: BRENNAN AHN UNIT #: [id number] ROOM/BED: [place] [address] : 42 AGE: 82 SEX: M ATTEND: Arthur Fuentes MD ADM AUTHOR: Catrina Shetty * ALL edits or amendments must be made on the electronic/computer document * Subjective Comments: patient fell yesterday afternoon. c/o right elbow pain Objective General VS/I O: .24 hour I O ending at 0700: 08/23 [...] 96 Room air PATIENT WEIGHT: Weight (lb): 221 Weight (oz): 9.03 Weight (kg): 100.500 Medications: Active Meds + DC'd Last 24 Hrs Metoprolol Tartrate (LOPRESSOR) 12.5 MG Q12HR PO [...] Sodium (COLACE) 100 MG BID PO Ipratropium [place] (ATROVENT) 500 MCG RTQ6H INH Sennosides (Senna Lax 8.6 MG TABLET) 17.2 MG BEDTIME PO Hydralazine HCl (APRESOLINE) 10 MG Q6H PRN PRN IV Acetaminophen (TYLENOL) 650 MG Q4H PRN PRN PO Ipratropium [place] (ATROVENT) 500 MCG RTQ2H PRN PRN INH Melatonin (Melatonin) 6 MG BEDTIME PRN PO Ondansetron HCl (ZOFRAN ODT) 4 MG TID PRN PRN SL Physical Exam General appearance: chronically ill appearing, frail, alert, awake, no acute distress Neck: non-tender, no JVD Cardiovascular: CV assessment: irregularly irregular Respiratory: decreased breath sounds, no distress Abdomen: soft, non-tender, normal bowel sounds, no distention Genitourinary: no flank pain, no urinary catheter Lower extremity: LE assessment: edema (trace edema RLE - harvest site), no edema Musculoskeletal: normal inspection Neuro/GATE GUARD: alert Skin: dry Psychiatry: normal affect, normal mood Results Findings/Data: Laboratory Tests 08/23 0700 Chemistry Sodium (134 - [...] (Auto) (14.0 - 32.0 %) 8.0 L Briscoe % (Auto) (4.8 - 9.0 %) 6.8 Eos % (Auto) (0.3 - 3.7 %) 6.5 H Baso % (Auto) (0.0 - 2.0 %) 0.8 Neut # (Auto) (2.0 - 7.6 x10 3/uL) 8.00 H Lymph # (Auto) (1.0 - 3.8 x10 3/uL) 0.83 L Briscoe # (Auto) (0.1 - 0.8 x10 3/uL) [...] Magnesium (1.80 - 2.40 mg/dL) 1.89 Radiology data: Recent Impressions: RADIOLOGY - XR SHOULDER 2 + V RT 08/22 1525 Report Impression - Status: SIGNED Entered: 08/22/2022 1752 IMPRESSION: No acute findings. Impression By: [email or web address] - Ramakrishan Dhaliwal M.D. CAT SCAN - CT HEAD/BRAIN W/O CONT 08/22 1546 Report Impression - Status: SIGNED Entered: 08/22/2022 1658 IMPRESSION: No acute intracranial abnormality, as above. Impression By: [email or web address] - Yosi Padron M.D. Results: labs reviewed, vital signs reviewed, rhythm personally rev'd Telemetry Interpretation: atrial fib witn controlled rate Diagnosis, Assessment Plan Plan discussed with: patient, nurse Free Text DxA P Notes Free Text DxA P Notes: 82 YO male with MHX of Afib, HTN, HLD, CAD who is s/p 5 vessel CABG and PVI and ALAA. The patient is transferred to [facility] for inpatient rehabilitation. We are consulted for continuity of cardiac-related care. 1. CAD s/p CABG x 5 (NGUYEN-LAD, SVG-Olga Lidia, SVG-OM, SVG-LPLA, SVG-PDA) continue asa, BB, plavix, Zetia echo 08/12- LVEF 50-54%, left pleural effusion intolerant of statin, will consider nonstatin med such as Repatha or Nexletol outpatient LE edema subsided , off PO lasix d/t orthostatic hypotension 2. A-fib: Paroxysmal - rate controlled s/p PVI and ARISTEO amputation amiodarone 200 mg BID - taper dose prior to discharge decrease metoprolol to 12.5 mg BID d/t soft blood pressure no need for AC since left atrial appendage was removed during CABG 3. HTN BP Supported by midodrine continue 5 mg TID before meals for orthostatic hypotension, hold for SBP above 120 mmHg decrease metoprolol to 12.5 mg BID 4. LADARIUS nephrology following 5. Dizziness 2/2 orthostatic hypotension positive orthostatic drop in SBP >30 mmHg continue midodrine to 5 mg TID compression stocking and abdominal binder before OOB Taken off Lasix, will re-assess need for diuretic on a daily basis 6. s/p Fall 08/22 CT head no acute finding c/o R Elbow pain -defer workup to primary or rehab team at 1427 at 1402 RPT #:[id number] END OF REPORT [facility] 2022-08-23 06:50:00 [facility] ([facility]) Rehab Progress Note REPORT#:[id number] REPORT STATUS: Signed DATE:08/23/22 TIME: 0650 PATIENT: BRENNAN AHN UNIT #: [id number] ROOM/BED: [place] [address] : 42 AGE: 82 SEX: M ATTEND: Arthur Fuentes MD ADM AUTHOR: Florentino Jimenez * ALL edits or amendments must be made on the electronic/computer document * Florentino Jimenez 08/23/22 0650: Subjective Chief complaint: Rehab follow-up Events noted. Patient had fall in room yesterday Landed on right shoulder and hit head. No LOC NAD Eating well + BM Denies MORA/N/V/D/CP 14 systems reviewed and neg. except that above. History of present illness: 82-year-old male with PMH of Alzheimer's dementia, CKD, HTN, atrial fibrillation , history of SVT/ablation who was transferred to [facility] after being found to have multivessel coronary artery disease. Patient initially with was at home and developed chest pains. He was brought to [facility] and underwent left heart cath which revealed [...] of function was independent. Currently patient has generalized weakness. He lives by himself in a one-step up house. He denies any shortness of breath, nausea, vomiting, fever, chills. Denies chest pain. He is complaining of some constipation. He tells me that is in the process of selling his home. Preadmission screen was completed. Patient admitted to IRF. Objective General VS: Vital Signs: Date Time Temp Pulse Resp [...] 126/64 84.9 96 PATIENT WEIGHT: Weight (lb): 221 Weight (oz): 9.03 Weight (kg): 100.500 Medications: Active Meds + DC'd Last 24 Hrs Furosemide (LASIX) 20 MG DAILY PO (CAN) Metoprolol [...] Sodium (COLACE) 100 MG BID PO Ipratropium [place] (ATROVENT) 500 MCG RTQ6H INH Metoprolol Tartrate (LOPRESSOR) 25 MG Q12HR PO (DC) Sennosides (Senna Lax 8.6 MG TABLET) 17.2 MG BEDTIME PO Hydralazine HCl (APRESOLINE) 10 MG Q6H PRN PRN IV Acetaminophen (TYLENOL) 650 MG Q4H PRN PRN PO Ipratropium [place] (ATROVENT) 500 MCG RTQ2H PRN PRN INH Melatonin (Melatonin) 6 MG BEDTIME PRN PO Ondansetron HCl (ZOFRAN ODT) 4 MG TID PRN PRN SL Functional Progress Functional progress: PT daily note comment: S; PT REPORTS NO COMPLAINTS OF ACUTE PAIN WITH ACTIVITIES IN THERAPY. O: PT WAS SEEN FOR 90MIN OF THERAPY BEGINNING WITH DON SALTY DAN,PT SLOW MOVING EXTRA TIME ASSIST THREADING PANTS PT PULL UP IN SUPINE. COMPLETE ORTHO VITALS AND RECORD,PT TRANSFER FROM BED TO WC REPETITION WITH CUES WITH STERNAL PRECUATIONS NON COMPLIANT PARTIAL DUE TO MEMORY DEFICITS. WHEEL PT TO RESTROOM PT STANDS AND TRANSFERS MIN- A AGAIN NON COMPLIANT EXTRA TIME IN RESTROOM DUE TO BOWEL MOVEMENT SET WITH WIPING PT ABLE TO PICK PANTS UP. MOBILITIY AROUND UNIT 100,50 X2 VC WITH SAFETY AND PROPEL SEQUENCE.GAIT TRAINING WITH RW 50',80' VC WITH STAYING WITHIN RW [place] FOR SAFETY ,THER-EX IN SITTING BI LE IN ALL PLANES 10 REPS,3 SETS,EDUCATE PT ON SAFETY W/TRANSFERS,SAFETY W/ FALL PREVENTION TO UTILIZE CALL LIGHT WHEN IN NEED OF ASSISTANCE. EDUCATE PT ON SAFETY WITH RW SAFETY WITH WC MOBILITY.PT REPORTS SOME DIZZINESS WITH ACTIVITIES IN THERAPY. A; PT MAKING PROGRESS WITH FUNCTIONAL GOALS, COMPLETES ALL ACTIVITIES WITH LENGTY REST STOPS DUE TO DIZZINESS WITH STANDING ACTIVITIES.ORTHO VITALS PRIOR TO THERAPY WITH ENZO HOSE AND BINDER IN PLACE. SUPINE-126/64 ID-[id number] SITTING- 107/64 ID 80 IN STANDING 91/59 ID [id number]. P: PT CONT. WITH PT POC. Physical Exam General appearance: alert, awake Psych: alert, normal affect, oriented x 3 HEENT: anicteric, mucosal membranes moist, pupils reactive to light, sclera clear Neck: non-tender, supple, no JVD Cardiovascular: irregular rhythm, S1/S2, cap refill wnl, pulses intact Respiratory: diminished breath sounds, on oxygen, aerating well Abdomen: bowel sounds present, non-distended, soft, non-tender Skin: dry, normal temperature, no rash, bruising R thigh, mild L thigh, BUE, R hand Sl tender/edema, sternum incision RSH site CDI, R elbow abrasion Musculoskeletal - general: Musculoskeletal - general: OA changes, normal tone, no swelling, Moves all 4 exts AG, calves NT, no cords, Homans neg Neuro/GATE GUARD: alert, oriented X 3, CNII-XII intact, normal speech, no motor deficits, no sensory deficits Results Findings/Data: Laboratory Tests 08/23 08/22 08/21 0700 0700 0530 [...] - 32.0 %) 8.0 L 9.9 L [place]isco[place] % (Auto) (4.8 - 9.0 %) 6.8 8.2 Eos % (Auto) (0.3 - 3.7 %) 6.5 H 7.0 H Baso % (Auto) (0.0 - 2.0 %) 0.8 0.6 Neut # (Auto) (2.0 - 7.6 x10 3/uL) 8.00 H 6.91 Lymph # (Auto) (1.0 - 3.8 x10 3/uL) 0.83 L 0.93 L Briscoe # (Auto) (0.1 - 0.8 x10 3/uL) [...] pH (5.0 - 7.0) 5.0 Ur Specific [place] (1.005 - 1.030) 1.011 Urine Protein (NEGATIVE) [...] Urine Mucus (NONE SEEN /LPF) TRACE Recent Impressions: RADIOLOGY - XR SHOULDER 2 + V RT 08/22 1525 Report Impression - Status: SIGNED Entered: 08/22/2022 1752 IMPRESSION: No acute findings. Impression By: [email or web address] - Ramakrishna Dhaliwal M.D. CAT SCAN - CT HEAD/BRAIN W/O CONT 08/22 1546 Report Impression - Status: SIGNED Entered: 08/22/2022 1658 IMPRESSION: No acute intracranial abnormality, as above. Impression By: [email or web address] - Yosi Padron M.D. Diagnosis, Assessment Plan Problem List/A P: 1. CAD (coronary artery disease) 2. Afib 3. HTN (hypertension) 4. S/P CABG x 5 5. Impaired functional mobility, balance, gait, and endurance Free Text A P: Assessment: Multivessel CAD 08/10: S/p CABG x5-Dr. Josephine Loredo-fib s/p a ARISTEO Endoscopic RGSV harvest 08/16: Echo-EF 50-54%, small pericardial effusion Small bilateral pleural effusions. Muscle weakness Unsteady gait Alzheimer's dementia (as per family), poor memory Postoperative anemia LADARIUS on CKD HTN Impairment in self-care, ADLs and functional mobility Plan: -Continue PT/OT -Case management for safe discharge planning. -Decubitus prevention-protective hydrating lotion-turn every 2 hours-offload -Bowel program-MiraLAX, senna -Nutrition, monitor the patient's p.o. intake, check albumin 3.5 and prealbumin 14.3, dietary consult, protein supplements. Cardiac diet. BMI above normal parameters. Working with dietary, follow up with PCP -Strict fall and safety precaution -DVT prophylaxis-SCDs -GI prophylaxis on Protonix -CAD on Plavix and aspirin, intolerant to statins -Pulmonary toilet frequent I-S, nebs, wean O2 -Early mobilization-OOB to chair -Work on bed mobility, transfer training, ADLs, pre-gait and gait exercises as tolerable. -Increase endurance and strength -Pain management -Postop care as per CVS -Monitor telemetry -Cardiology on case -LADARIUS as per nephrology -Dementia/confusion-Higher level of nursing care and monitoring for safety -Strict sternal precautions-patient with poor carryover of sternal precautions -Monitor sites of bruising and right hand pain-from previous phlebotomy sites-no signs of infection -Labs reviewed-WBC normal, hemoglobin 9.1, 8.9, platelets stable, creatinine 1.9 , 2.2, magnesium normal, HgbA1C 5.2. -Anemia-vitamin B12 and ferrous sulfate -Advance therapies as tolerable -Orthostasis/dizziness-diuretic s reduced-midodrine added-use ENZO hose and abdominal binder when out of bed-monitor -Patient tolerating treatment sessions fair and slowly progressing towards his goals. Patient orthostatic and symptomatic recovers with seated rest breaks. Patient using ENZO hose and abdominal binder. Blood pressure sitting 130/80, standing 102/60, no carryover with sternal precautions. -Remove sutures x2 from lower chest -Requires verbal cues to maintain sternal precautions with transfers -Follow-up with PCP for dementia evaluation -Dysuria-UA negative-continue with Pyridium-monitor -Patient seen by trauma team yesterday after fall. CT head negative. Patient appears to be at his baseline today RN called me this afternoon and said pt's R elbow hurting more. 2 view R elbow x ray ordered. PM R Please see team note. Plan and goals discussed with the patient. I agree with the teams finding ELOS: [08/21] VB-xepr-[id number] living DME-bedside commode, rolling walker Total time was 33 minutes > 50% with patient performing physical examination, discussing with patient about fall precaustions, discharge plans, sternal precautions, plan of care, goals, therapies, progress, medications, labs. All questions answered Rehab attestation: Face to face exam completed. Treatment plan discussed with patient. Meets continued stay criteria. Agree with interdisciplinary treatment plan. Arthur Fuentes 08/23/22 0818: Attestations Physician Attestation Agree w/findings plan: Patient seen and examined by me. Agree with the findings and plan as documented by ALVAREZ Bush. Nurse notified me last night that patient had [...] the right shoulder. at 0918 at 1647 RPT #:[id number] END OF REPORT [facility] 2022-08-22 17:21:00 [facility] ([facility]) Trauma Consultation Note REPORT#:[id number] REPORT STATUS: Signed DATE:08/22/22 TIME: 172 PATIENT: BRENNAN AHN UNIT #: [id number] ROOM/BED: [place] [address] : 42 AGE: 82 SEX: M ATTEND: Arthur Fuentes MD ADM AUTHOR: Ariana Kruse CHIEF ACCOUNTANT * ALL edits or amendments must be made on the electronic/computer document * Ariana Kruse 08/22/22 1721: HPI Time At Bedside Time at bedside: 1700 HPI Requesting Clinician: Dr. Fuentes Reason for consult: inpatient fall with headstrike Chief complaint: Right shoulder tenderness PCP: PCP: No Primary or Family Physician HPI: The patient was seen in the inpatient rehab unit at the request of Dr. Fuentes. CC: R shoulder pain HPI: Brennan Ahn is an 82 y/o M PMH of dementia, HTN, Afib, SVT s/p ablation. Admitted to inpatient rehab after CABG x5 that was done on 08/10/22. Trauma service consulted 08/22/22 after pt had a fall from standing with head strike as reported by nursing. Pt states that he has dementia and can not remeber all the details of the fall. STAT CT Head and R shoulder xray requested. 1. Airway patent, conversational 2. Equal chest rise and fall, no distress 3. 2+ pulses distally to all 4 extremities 4. Neuro status intact distally to all 4 extremities 5. Exposed, warm blankets applied no gross abnormalities Past medical history: dementia, HTN, Afib, SVT s/p ablation, CAD Past surgical history: CABG x5 08/10/22 Allergies: NKA Social history: denies smoking, alcohol, drugs Medications: ASA/ plavix History - Adult longitudinal Past medical history: Reports: Atrial fibrillation, Coronary artery disease, Dementia, Kidney disease/ stones. Past surgical history: Reports: CABG. Additional surgical history: Crevial Laminectomy amputation of left atrial appendage Family history: Reports: Hypertension. Alcohol use: Denies EtOH use Drug use: Denies recreational drugs Smoking status for patients 13 years old or older: Former Smoker Allergies: Coded Allergies: Cmdixui-YAW-KkU Reductase Inhibitor (Severe, UNKNOWN 08/16/22) ROS ROS Skin: Reports: bruising. Musculoskeletal: Extremity pain: Reports: right upper. Free Text ROS Notes Free Text ROS Notes: Review of systems: As above; otherwise, negative to include neurologic, eyes, ENT, CV, respiratory, GI, musculoskeletal, , skin, psychiatric, hematologic, and allergy. Objective Physical Exam VS/I O: Vital Signs: Date Time Temp Pulse Resp [...] Urine 300 800 PATIENT WEIGHT: Weight (lb): 221 Weight (oz): 9.03 Weight (kg): 100.500 Results Findings/Data: Laboratory Tests 08/22 0700 Chemistry Sodium (134 - [...] Suzanna (1.09 - 1.30 MMOL/L) 1.14 Radiology data: Recent Impressions: CAT SCAN - CT HEAD/BRAIN W/O CONT 08/22 1546 Report Impression - Status: SIGNED Entered: 08/22/2022 1658 IMPRESSION: No acute intracranial abnormality, as above. Impression By: [email or web address] - Yosi Padron M.D. Free Text Obj Notes Free Text Obj Notes: Constitutional: GCS 14 Patient appears awake, alert, no acute distress, HR, BP, Saturation reviewed in records. Eyes: pupils equal, round, reactive to light, EOMI HENT: normal cephalic, atraumatic, no facial tenderness or crepitus, normal external inspection of ears/nose, no septal hematoma. Neck: trachea midline, no crepitus, thyroid without mass CV: irregular rate/ rhythm, bilateral radial pulses 2+, no cyanosis, no edema, no pulsatile abdominal mass Respiratory: lungs clear bilaterally, respirations even and unlabored, no tenderness to palpation, normal inspection of chest, no crepitus Abdomen: soft, non-tender, no masses, no hernia noted : normal external genitalia, pelvis stable Lymph nodes: no cervical or supraclavicular masses noted Musculoskeletal: -Left upper extremity without focal tenderness, without deformity, with ROM intact -Right upper extremity without focal tenderness, without deformity, with ROM slightly impaired d/t pain in the shoulder -Left lower extremity without focal tenderness, without deformity, with ROM intact -Right lower extremity without focal tenderness, without deformity, with ROM intact -no cervical spine tenderness with full ROM -no thoracic/lumbar spine tenderness or step-off. Skin: no lacerations or abrasions noted, skin warm to palpation. bruises noted on bilat arms and back Psychiatric: normal mood and affect, memory intact. Neurologic: face symmetrical. Bilateral upper and lower extremity sensation intact Diagnosis, Assessment Plan Diagnosis, Assessment Plan Consultants: cardiology, cardiovascular surgery, hospitalist, nephrology Free Text DxA P Notes Free Text DxA P Notes: Mechanism: fall from standing Injuries: none noted/ strength intact/ mental status at baseline CTH 08/22 reviewed with no acute intracranial abnormality R shoulder bruise -- shoulder xray with no acute fx or dislocations Active Problems: s/p fall Resolved Problems: n/a Incidental findings: n/a Chronic Medical Problems: dementia, HTN, Afib, SVT s/p ablation, CAD DVT prophylaxis: SCDs GI prophylaxis: diet Lines/Longo/ETT: PIV Consultants: IM, PMR, nephrology Procedures: CABG on 08/10/22 Plan: Pt was seen and evaluated with Dr Lloyd, who determined the POC As a result of this trauma consultation, pt will be admitted to rehab Trauma will sign off. No injuries noted. Please do not hesistate to reach out with any change of condition/concerns Diet: cardiac/puree Labs: AM PT/OT recs: pending DME: recs pending Code status: Full code Medical Decision Making: In the event the patient is incapacitated and not able to make their own medical decisions, they have elected Piero Rice, contact number [phone], to make medical decisions for them. Dispo: Admit; will continue to monitor for ICU needs or any further changes to level of care Quality: Trauma Gen Surg Advanced Care Plan 65 or Older Discussed with: patient Discussion included: code status Current Medications Current medication review: I attest that the foregoing medication list in the medical record is true, accurate, and complete to the best of my knowledge. Genaro Lloyd 08/27/22 0911: Attestations Physician Attestation Agree w/findings plan: I have performed a diagnostic evaluation on this patient. I have personally reviewed the assessment and care plan and confirm the diagnosis as above. I have also reviewed and agree with Ivana Kruse NP documentation and implemented plans as they have dictated/documented. Thanks for helping take care of this patient Please call with questions. at 1826 at 0926 RPT #:[id number] END OF REPORT [facility] 2022-08-22 15:30:00 [facility] Internal Medicine Prog. Note REPORT#:[id number] REPORT STATUS: Signed DATE:08/22/22 TIME: 1530 PATIENT: BRENNAN AHN UNIT #: [id number] ROOM/BED: [place] [address] : 42 AGE: 82 SEX: M ATTEND: Arthur Fuentes MD ADM AUTHOR: Devin Fox DO * ALL edits or amendments must be made on the electronic/computer document * Subjective Chief complaint: pt s c/o . now in rehab Review of Systems All systems rev neg: except as marked Objective General VS/I O: Vital Signs Date Temp Pulse Resp B/P B/P Mean Pulse Ox FiO2 08/21-08/22 97.5-98.4 64-82 16-18 85-157/47-76 59.6-101.8 90-98 Last Documented: Result Date Time Pulse Ox 97 08/22 152 B/P 157/74 08/22 152 B/P Mean 101.8 08/22 1522 O2 Delivery Room air 08/22 152 Temp 97.9 08/22 1522 Pulse 75 08/22 1522 Resp 18 08/22 1522 FiO2 21 08/184 24 hour I O ending at 0700: 08/22 0700 08/21 1900 Intake Total Output Total 300 800 Balance -300 -800 Number 1 0 Incontinent Voids Number Voids 3 4 Output, Urine 300 800 PATIENT WEIGHT: Weight (lb): 221 Weight (oz): 9.03 Weight (kg): 100.500 Medications: Active Meds + DC'd Last 24 Hrs Furosemide (LASIX) 20 MG DAILY PO (CAN) Metoprolol [...] Sodium (COLACE) 100 MG BID PO Ipratropium [place] (ATROVENT) 500 MCG RTQ6H INH Metoprolol Tartrate (LOPRESSOR) 25 MG Q12HR PO (DC) Sennosides (Senna Lax 8.6 MG TABLET) 17.2 MG BEDTIME PO Hydralazine HCl (APRESOLINE) 10 MG Q6H PRN PRN IV Acetaminophen (TYLENOL) 650 MG Q4H PRN PRN PO Ipratropium [place] (ATROVENT) 500 MCG RTQ2H PRN PRN INH Melatonin (Melatonin) 6 MG BEDTIME PRN PO Ondansetron HCl (ZOFRAN ODT) 4 MG TID PRN PRN SL Physical Exam General appearance: alert, awake, oriented Head/Eyes: EOMI, PERRLA Neck: non-tender, no JVD Cardiovascular: normal heart sounds, regular rate rhythm Respiratory: aerating well, clear to auscultation Abdomen: non-tender, normal bowel sounds Extremities: Extremities: no cyanosis, no edema Neuro/GATE GUARD: alert, oriented x 3, CNII-XII intact Results Findings/Data: Laboratory Tests 08/22/22 0700: [Embedded Image Not Available] Laboratory Tests 08/22 0700 Chemistry Sodium (134 - [...] (1.09 - 1.30 MMOL/L) 1.14 Diagnosis, Assessment Plan Hospital course to date: 82-year-old male with past medical history of hypertension, atrial fibrillation, supraventricular tachycardia status post ablation who was admitted with reports of multivessel coronary artery disease found on a cardiac catheterization done at [facility]. Patient was transferred to [facility] for CABG. He underwent TSYCi3p. 1. Coronary artery disease -Status post CABG x5, ALAA, PVI -Continue metoprolol, Plavix, aspirin 2. Atrial fibrillation -Continue po amiodarone for rate control - taper AMIO per cards -Continue metoprolol -Monitor and review telemetry 3. Debility -.-PT/OT - PMR - Inpt Rehab 4. ARF - Trend cr 1.3-1.9-2.2-2.0-1.9-2.2 - post op, post lasix therefore likely pre-renal - baseline CKD is suspected - nephro consulted 5. anemia - acute, post op expecteed - monitor and transfuse if hg <7 - cont po Iron - Trend Hg 9.1 6. Delirium -Likely due to sundowning -Monitor closely -Patient is neurologically intact dispo: INPT REHAB total time spent 35mins Consultants: cardiology, cardiovascular surgery, hospitalist, nephrology Quality: Gen [facility] Crit Care Current Medications Current medication review: I attest that the foregoing medication list in the medical record is true, accurate, and complete to the best of my knowledge. Advanced Care Plan 65 or Older Discussed with: patient Discussion included: code status at 0917 RPT #:[id number] END OF REPORT [facility] 2022-08-22 14:13:00 [facility] Nephrology Progress Note REPORT#:[id number] REPORT STATUS: Signed DATE:08/22/22 TIME: 1413 PATIENT: BRENNAN AHN UNIT #: [id number] ROOM/BED: [place] [address] : 42 AGE: 82 SEX: M ATTEND: Arthur Fuentes MD ADM AUTHOR: Maura Terrazas MD * ALL edits or amendments must be made on the electronic/computer document * Subjective Chief complaint: chest pain HPI: 82-year-old male known to have hypertension, atrial fibrillation, supraventricular tachycardia with requiring ablation presenting with multivessel cardiovascular disease and he underwent CABG 07/13/2022. He endorsed having kidney issues in the past and seeing a progress man at [place] but his kidney function had been stable since then.He developed oliguria,LADARIUS and hypervolemia post CABG but had now improved and was transferred to rehab. 08/22 Patient appearing comfortable,denying all systemic review including dizziness. Objective General VS/I O: Vital Signs: Date Time Temp Pulse Resp B/P B/P Pulse O2 O2 Flow FiO2 Mean Ox Delivery Rate 08/22 1128 36.9 72 18 132/71 91.2 97 Room air 08/22 1024 36.4 82 103/65 77.4 96 Room air 08/22 0847 79 91/59 69.8 90 03/21 0845 77 107/64 78.3 95 08/22 0831 [...] Urine 300 800 PATIENT WEIGHT: Weight (lb): 221 Weight (oz): 9.03 Weight (kg): 100.500 Physical Exam General appearance: alert, awake, oriented Head/eyes: atraumatic, clear cornea, EOMI ENT: moist mucous membranes, normal nose Neck: no JVD, no masses or swelling Cardiovascular: normal heart sounds, regular rate and rhythm Respiratory: aerating well, clear to auscultation Abdomen: non-tender, soft Genitourinary: no bladder distention, no flank pain Extremities: pitting edema, no gangrene, no swelling Diagnosis, Assessment Plan Free Text A P: 82-year-old male known to have hypertension, atrial fibrillation, supraventricular tachycardia with requiring ablation presenting with multivessel cardiovascular disease and he underwent CABG 07/13/2022. Transferred [...] recently had surgery. Resolving with better hemodynamics. His kidney function was stable plan was to [...] cardiovascular surgery, hospitalist, nephrology at 1432 RPT #:[id number] END OF REPORT [facility] 2022-08-22 13:28:00 [facility] ([facility]) Rehab Team Conference REPORT#:[id number] REPORT STATUS: Signed DATE:08/22/22 TIME: 1328 PATIENT: BRENNAN AHN UNIT #: [id number] ROOM/BED: [place] [address] : 42 AGE: 82 SEX: M ATTEND: Arthur Fuentes MD ADM AUTHOR: Arthur Fuentes MD * ALL edits or amendments must be made on the electronic/computer document * Rehabilitation Team Conference Weekly Team Conference Team conf information: Date of conference: 08/22/22 Conference type: Initial Conference scribe: Ana Cristina Solano PTA INTERDISCIPLINARY TEAM MEETING PARTICIPANTS: TITLE NAME MD Arthur Fuentes MD RN Monster Smalls, RN PT Shay Tristan, PT OT Vanessa Garcia OT CM/JOE Forrest CM ST Ami Hobbs, RESOURCE ROOM TEACHER [facility] Ami Hobbs, JOVANNY Staff (8) NO ATTENDEE Staff (9) NO ATTENDEE OTHER NAME CREDENTIALS 1 2 FUNCTIONAL CHANGE: TYPE ADMISSION TOTAL INTERIM TOTAL CHANGE Self care 23 31 8 Transfer 16 22 6 Mobility 11 26 15 Wheelchair distance: Mobility description: BOWEL AND BLADDER STATUS: Bowel continence admission rating: Bladder continence admission rating: Always continent Bowel and bladder team conference update: CONTINENT OF BOWEL AND BLADDER DURING SHIFT INTERDISCIPLINARY TEAM UPDATES: VIVIAN team conference update: PT. IMPULSIVE / REORIENTATION NEEDED/ PT. CONTINUES 1 PERSON ASSIST PT team conference update: PROGRESS: PROGRESSING SLOWLY DME; 20" W/C, RW D/C; HHPT VS MCC. PT LIVES ALONE IN [facility]. HAS POOR RECALL AND NO CARRYOVER WITH STERNAL PREC. PT ALSO GETS ORTHOSTATIC WITH PROLONGED STANDING ACTIVITES AND AMBULATION. PT IS MOD A WITH BED MOB, MIN A FOR TRANSFERS FROM HIGHER SEATED POSITION, MIN A WITH AMBULATION WITH RW. OT team conference update: PT MAKING FAIR PROGRESS WITH ADL TRANSFERS D/T POOR CARRYOVER OF SAFETY/ADHERENCE TO STERNAL PREC. ADLS: MIN-VT DME: BSC BARRIERS: DEC ENDURANCE, DEC SAFETY/STM MEMORY ST team conference update: CM or SW team conference update: PATIENT LIVES AT HOME ALONE. DAUGHTER LIVES IN [place] AND SON LIVES ABOUT AN HOUR AWAY. PLAN FOR THE PATIENT TO GO TO AN CHRISTOPHER TO TIME OF DC. Other discipline update 1: P.O INTAKE: 40-50% OF A DYS 5 WITH ENSURE PLUS MAX HP. Other discipline update 2: Other discipline update 3: [...] (4) Twelve steps discharge goal: Not applicable [place] 150 feet discharge goal: Independent (6) Goal 1 - Bowel function: PATIENT WILL REMAIN CONTINENT OF BOWELS WITH BM AT LEAST ONCE EVERY 3 DAYS. Goal 2 - Bladder function: PATIENT WILL REMAIN CONTINENT OF BLADDER-UTILIZING URINAL OR UP TO BATHROOM FOR VOIDING. Nursing goal 3: PATIENT WILL REMAIN FREE FROM SKIN BREAKDOWN. Nursing goal 4: PATIENT WILL REPORT ADEQUATE PAIN CONTROL DURING REHAB STAY. Nursing goal 5: PATIENT WILL BE FROM INJURY AND FALLS DURING REHAB STAY. DISCHARGE PLANNING: Barriers to discharge: Caregiver, Cognition, Endurance, Fall risk Strategies for D/C barriers: Behavioral mod plan, Evaluate sleep patterns, Fall recovery training, Home evaluation Estimated length of stay in days: 13 Anticipated discharge date: 08/29/22 Discharge date adjustment comment: Identified financial and/or community resource needs: Family/Caregiver training days: PATIENT AND FAMILY WILL BE EDUCATED ON USE OF GAIT BELT TO LOWER PT TO THE FLOOR IN THE EVENT OF LOSS OF BALANCE TO PREVENT FALL OR INJURY. FAMILY TRAINING TO BE SCHEUDLED BY THERAPY. [place] day (DATE): 08/28/22 Expected discharge destination: Assisted living facility Anticipated services upon discharge: Occupational therapy, Physical therapy, Nurses aide, Nursing Anticipated discharge equipment: RW, BSC Impairment group: cardiac disorders NOTE Document ONLY ONE Impairment Group Etiologic diagnosis: CAD MULTIVESSEL A FIB PAROXYSMAL Review of comorbidities: CAD, A FIB, DEMENTIA/ON ELLIQUIS, HTN, CHRONIC KIDNEY DX, POST OP ANEMIA, muscle weakness, unsteady gait, POST OP PULMONARY DYSFUNTION MD Review/Recommendations Attestation: This interdisciplinary team conference was led by me and I concur with all decisions made during the team conference and revisions to the individualized overall plan of care. IRF cont stay criteria See my note at 1329 RPT #:[id number] END OF REPORT [facility] 2022-08-22 09:09:00 [facility] ([facility] Cardiology Progress Note REPORT#:[id number] REPORT STATUS: Signed DATE:08/22/22 TIME: 908 PATIENT: BRENNAN AHN UNIT #: [id number] ROOM/BED: [place] [address] : 42 AGE: 82 SEX: M ATTEND: Arthur Fuentes MD ADM AUTHOR: Catrina Shetty AGACNP * ALL edits or amendments must be made on the electronic/computer document * Subjective Comments: Lightheadedness Objective General VS/I O: 24 hour I O ending at 0700: [...] 88 130/80 96.4 PATIENT WEIGHT: Weight (lb): 221 Weight (oz): 9.03 Weight (kg): 100.500 Medications: Active Meds + DC'd Last 24 Hrs Furosemide (LASIX) 20 MG DAILY PO (CAN) Metoprolol [...] Sodium (COLACE) 100 MG BID PO Ipratropium [place] (ATROVENT) 500 MCG RTQ6H INH Metoprolol Tartrate (LOPRESSOR) 25 MG Q12HR PO (DC) Sennosides (Senna Lax 8.6 MG TABLET) 17.2 MG BEDTIME PO Hydralazine HCl (APRESOLINE) 10 MG Q6H PRN PRN IV Acetaminophen (TYLENOL) 650 MG Q4H PRN PRN PO Ipratropium [place] (ATROVENT) 500 MCG RTQ2H PRN PRN INH Melatonin (Melatonin) 6 MG BEDTIME PRN PO Ondansetron HCl (ZOFRAN ODT) 4 MG TID PRN PRN SL Physical Exam General appearance: alert, awake Neck: non-tender, no JVD Cardiovascular: CV assessment: irregularly irregular Respiratory: decreased breath sounds, no distress Abdomen: soft, non-tender, normal bowel sounds, no distention Genitourinary: no flank pain, no urinary catheter Lower extremity: LE assessment: no edema Musculoskeletal: normal inspection Neuro/GATE GUARD: alert Skin: dry Psychiatry: normal affect, normal mood Results Findings/Data: Laboratory Tests 08/22 0700 Chemistry Sodium (134 - [...] pH (5.0 - 7.0) 5.0 Ur Specific [place] (1.005 - 1.030) 1.011 Urine Protein (NEGATIVE) [...] reviewed, vital signs reviewed, rhythm personally rev'd Telemetry Interpretation: afib with controlled rate Diagnosis, Assessment Plan Plan discussed with: patient, collaborating MD, consultants (Nephro Dr. Terrazas), nurse Free Text DxA P Notes Free Text DxA P Notes: 82 YO male with MHX of Afib, HTN, HLD, CAD who is s/p 5 vessel CABG and PVI and ALAA. The patient is transferred to [facility] for inpatient rehabilitation. We are consulted for continuity of cardiac-related care. 1. CAD s/p CABG x 5 (NGUYEN-LAD, SVG-Olga Lidia, SVG-OM, SVG-LPLA, SVG-PDA) continue asa, BB, plavix, Zetia echo 08/12- LVEF 50-54%, left pleural effusion intolerant of statin, will consider nonstatin med such as Repatha or Nexletol outpatient LE edema subsided , DC PO lasix d/t orthostatic hypotension 2. A-fib: Paroxysmal - rate controlled s/p PVI and ARISTEO amputation amiodarone 200 mg BID - taper dose prior to discharge decrease metoprolol to 12.5 mg BID d/t soft blood pressure no need for AC since left atrial appendage was removed during CABG 3. HTN BP Supported by midodrine, up dose to 5 mg TID for orthostatic hypotension decrease metoprolol to 12.5 mg BID 4. LADARIUS nephrology following 5. Dizziness 2/2 orthostatic hypotension positive orthostatic drop in SBP >30 mmHg up midodrine to 5 mg TID compression stocking and abdominal binder before OOB discussed with Dr. Nini stringer, will DC lasix and re-assess need for it tomorrow at 1335 at 1402 RPT #:[id number] END OF REPORT [facility] 2022-08-22 08:52:00 [facility] ([facility]) Rehab Progress Note REPORT#:[id number] REPORT STATUS: Signed DATE:08/22/22 TIME: 851 PATIENT: BRENNAN AHN UNIT #: [id number] ROOM/BED: [place] [address] : 42 AGE: 82 SEX: M ATTEND: Arthur Fuentes MD ADM AUTHOR: Arthur Fuentes MD * ALL edits or amendments must be made on the electronic/computer document * Subjective Chief complaint: Rehab follow-up Complaint of dysuria NAD Eating + BM Denies MORA/N/V/D/CP 14 systems reviewed and neg. except that above. History of present illness: 82-year-old male with PMH of Alzheimer's dementia, CKD, HTN, atrial fibrillation , history of SVT/ablation who was transferred to [facility] after being found to have multivessel coronary artery disease. Patient initially with was at home and developed chest pains. He was brought to [facility] and underwent left heart cath which revealed [...] of function was independent. Currently patient has generalized weakness. He lives by himself in a one-step up house. He denies any shortness of breath, nausea, vomiting, fever, chills. Denies chest pain. He is complaining of some constipation. He tells me that is in the process of selling his home. Preadmission screen was completed. Patient admitted to IRF. Objective General VS: Vital Signs: Date Time Temp Pulse Resp [...] 88 130/80 96.4 PATIENT WEIGHT: Weight (lb): 221 Weight (oz): 9.03 Weight (kg): 100.500 Medications: Active Meds + DC'd Last 24 Hrs Phenazopyridine HCl (PYRIDIUM) 200 MG BID MEALS [...] Sodium (COLACE) 100 MG BID PO Ipratropium [place] (ATROVENT) 500 MCG RTQ6H INH Metoprolol Tartrate (LOPRESSOR) 25 MG Q12HR PO Sennosides (Senna Lax 8.6 MG TABLET) 17.2 MG BEDTIME PO Hydralazine HCl (APRESOLINE) 10 MG Q6H PRN PRN IV Acetaminophen (TYLENOL) 650 MG Q4H PRN PRN PO Ipratropium [place] (ATROVENT) 500 MCG RTQ2H PRN PRN INH Melatonin (Melatonin) 6 MG BEDTIME PRN PO Ondansetron HCl (ZOFRAN ODT) 4 MG TID PRN PRN SL Physical Exam General appearance: alert, awake, no acute distress Psych: alert, normal affect, oriented x 3 HEENT: anicteric, mucosal membranes moist, pupils reactive to light, sclera clear Neck: non-tender, supple, no JVD Cardiovascular: irregular rhythm, S1/S2, cap refill wnl, pulses intact Respiratory: diminished breath sounds, on oxygen, aerating well Abdomen: bowel sounds present, non-distended, soft, non-tender Skin: dry, normal temperature, no rash, bruising R thigh, mild L thigh, BUE, R hand Sl tender/edema, sternum incision H site CDI Musculoskeletal - general: Musculoskeletal - general: OA changes, normal tone, no swelling, Moves all 4 exts AG, calves NT, no cords, Homans neg Neuro/GATE GUARD: alert, oriented X 3, CNII-XII intact, normal speech, no motor deficits, no sensory deficits Results Findings/Data: Laboratory Tests: 08/22 08/21 0700 1200 Chemistry Sodium [...] pH (5.0 - 7.0) 5.0 Ur Specific [place] (1.005 - 1.030) 1.011 Urine Protein (NEGATIVE) [...] Mucus (NONE SEEN /LPF) TRACE Diagnosis, Assessment Plan Problem List/A P: 1. CAD (coronary artery disease) 2. Afib 3. HTN (hypertension) 4. S/P CABG x 5 5. Impaired functional mobility, balance, gait, and endurance Free Text A P: Assessment: Multivessel CAD 08/10: S/p CABG x5-Dr. Dee A-fib s/p a ARISTEO Endoscopic RGSV harvest 08/16: Echo-EF 50-54%, small pericardial effusion Small bilateral pleural effusions. Muscle weakness Unsteady gait Alzheimer's dementia (as per family), poor memory Postoperative anemia LADARIUS on CKD HTN Impairment in self-care, ADLs and functional mobility Plan: -Continue PT/OT -Case management for safe discharge planning. -Decubitus prevention-protective hydrating lotion-turn every 2 hours-offload -Bowel program-MiraLAX, senna -Nutrition, monitor the patient's p.o. intake, check albumin 3.5 and prealbumin 14.3, dietary consult, protein supplements. Cardiac diet. BMI above normal parameters. Working with dietary, follow up with PCP -Strict fall and safety precaution -DVT prophylaxis-SCDs -GI prophylaxis on Protonix -CAD on Plavix and aspirin, intolerant to statins -Pulmonary toilet frequent I-S, nebs, wean O2 -Early mobilization-OOB to chair -Work on bed mobility, transfer training, ADLs, pre-gait and gait exercises as tolerable. -Increase endurance and strength -Pain management -Postop care as per CVS -Monitor telemetry -Cardiology on case -LADARIUS as per nephrology -Dementia/confusion-Higher level of nursing care and monitoring for safety -Strict sternal precautions-patient with poor carryover of sternal precautions -Monitor sites of bruising and right hand pain-from previous phlebotomy sites-no signs of infection -Labs reviewed-WBC normal, hemoglobin 9.1, 8.9, platelets stable, creatinine 1.9 , 2.2, magnesium normal, HgbA1C 5.2. -Anemia-vitamin B12 and ferrous sulfate -Advance therapies as tolerable -Orthostasis/dizziness-diuretic s reduced-midodrine added-use ENZO hose and abdominal binder when out of bed-monitor -Patient tolerating treatment sessions fair and slowly progressing towards his goals. Patient orthostatic and symptomatic recovers with seated rest breaks. Patient using ENZO hose and abdominal binder. Blood pressure sitting 130/80, standing 102/60, no carryover with sternal precautions. -Remove sutures x2 from lower chest -Follow-up with PCP for dementia evaluation -Dysuria-UA negative-continue with Pyridium-monitor -Team conference Progress: GAIT TRAINING: PATIENT AMBULATED 80', 150' MIN A FOR STEADYING. VC FOR CORRECT RW PLCMT AND TO LOOK UP. PT WITH INCREASED UNSTEADYINESS WITH LONGER DISTANCES DUE TO ORTHOSTATIC BP AND SYMPTOMATIC. RECOVERS WITH SEATED RB. 10' UNEVEN WITH RW MOD A FOR SAFETY. PM R Please see team note. Plan and goals discussed with the patient. I agree with the teams finding ELOS: [08/21] DN-jllv-jkeazalf living DME-bedside commode, rolling walker Total time was 35 minutes > 50% with patient performing physical examination, discussing with patient about team conference, discharge plans, sternal precautions, plan of care, goals, therapies, progress, medications, labs. All questions answered Orders: Procedure Date/time Status CARDIAC DIET 08/22 D Active NEB TREATMENT SUBSQ 08/22 3673 Active NEB TREATMENT SUBSQ 08/21 1301 Active Consultants: cardiology, cardiovascular surgery, hospitalist, nephrology Rehab attestation: Face to face exam completed. Treatment plan discussed with patient. Meets continued stay criteria. Agree with interdisciplinary treatment plan. at 1328 RPT #:[id number] END OF REPORT [facility] 2022-08-21 19:54:00 [facility] ([facility]) Nephrology Progress Note REPORT#:[id number] REPORT STATUS: Signed DATE:08/21/22 TIME: 1953 PATIENT: BRENNAN AHN UNIT #: [id number] ROOM/BED: [place] [address] : 42 AGE: 82 SEX: M ATTEND: Arthur Fuentes MD ADM AUTHOR: Maura Terrazas MD * ALL edits or amendments must be made on the electronic/computer document * Subjective Chief complaint: chest pain HPI: 82-year-old male known to have hypertension, atrial fibrillation, supraventricular tachycardia with requiring ablation presenting with multivessel cardiovascular disease and he underwent CABG 07/13/2022. He endorsed having kidney issues in the past and seeing a progress man at [place] but his kidney function had been stable since then.He developed oliguria,LADARIUS and hypervolemia post CABG but had now improved and was transferred to rehab. 08/21 Patient appearing comfortable,denying all systemic review including dizziness. Objective General VS/I O: Vital Signs: Date Time Temp Pulse Resp [...] Urine 300 800 PATIENT WEIGHT: Weight (lb): 221 Weight (oz): 9.03 Weight (kg): 100.500 Physical Exam General appearance: alert, awake, oriented Head/eyes: atraumatic, clear cornea, EOMI ENT: moist mucous membranes, normal nose Neck: no JVD, no masses or swelling Cardiovascular: normal heart sounds, regular rate and rhythm Respiratory: aerating well, clear to auscultation Abdomen: non-tender, soft Genitourinary: no bladder distention, no flank pain Extremities: pitting edema, no gangrene, no swelling Diagnosis, Assessment Plan Free Text A P: 82-year-old male known to have hypertension, atrial fibrillation, supraventricular tachycardia with requiring ablation presenting with multivessel cardiovascular disease and he underwent CABG 07/13/2022. Transferred [...] recently had surgery. Resolving with better hemodynamics. His kidney function was stable plan was to [...] keep his blood pressures above 100 systolic. Consultants: cardiology, cardiovascular surgery, hospitalist, nephrology at 1413 RPT #:[id number] END OF REPORT [facility] 2022-08-21 15:18:00 [facility]) Internal Medicine Prog. Note REPORT#:[id number] REPORT STATUS: Signed DATE:08/21/22 TIME: 1517 PATIENT: BRENNAN AHN UNIT #: [id number] ROOM/BED: [place] [address] : 42 AGE: 82 SEX: M ATTEND: Arthur Fuentes MD ADM AUTHOR: Devin Fox DO * ALL edits or amendments must be made on the electronic/computer document * Subjective Chief complaint: pt s c/o . now in rehab Review of Systems All systems rev neg: except as marked Objective General VS/I O: Vital Signs Date Temp Pulse Resp B/P B/P [...] Urine 600 550 PATIENT WEIGHT: Weight (lb): 221 Weight (oz): 9.03 Weight (kg): 100.500 Medications: Active Meds + DC'd Last 24 Hrs Phenazopyridine HCl (PYRIDIUM) 200 MG BID MEALS [...] Sodium (COLACE) 100 MG BID PO Ipratropium [place] (ATROVENT) 500 MCG RTQ6H INH Metoprolol Tartrate (LOPRESSOR) 25 MG Q12HR PO Sennosides (Senna Lax 8.6 MG TABLET) 17.2 MG BEDTIME PO Hydralazine HCl (APRESOLINE) 10 MG Q6H PRN PRN IV Acetaminophen (TYLENOL) 650 MG Q4H PRN PRN PO Ipratropium [place] (ATROVENT) 500 MCG RTQ2H PRN PRN INH Melatonin (Melatonin) 6 MG BEDTIME PRN PO Ondansetron HCl (ZOFRAN ODT) 4 MG TID PRN PRN SL Physical Exam General appearance: alert, awake, oriented Head/Eyes: EOMI, PERRLA Neck: non-tender, no JVD Cardiovascular: normal heart sounds, regular rate rhythm Respiratory: aerating well, clear to auscultation Abdomen: non-tender, normal bowel sounds Extremities: Extremities: no cyanosis, no edema Neuro/GATE GUARD: alert, oriented x 3, CNII-XII intact Results Findings/Data: Laboratory Tests 08/21/2230: [Embedded Image Not Available] Laboratory Tests 08/21 529 Chemistry Sodium (134 - [...] (Auto) (14.0 - 32.0 %) 9.9 L [place] % (Auto) (4.8 - 9.0 %) 8.2 Eos % (Auto) (0.3 - 3.7 %) 7.0 H Baso % (Auto) (0.0 - 2.0 %) 0.6 Neut # (Auto) (2.0 - 7.6 x10 3/uL) 6.91 Lymph # (Auto) (1.0 - 3.8 x10 3/uL) 0.93 L [place] # (Auto) (0.1 - 0.8 x10 3/uL) [...] - 0.1 x10 3/uL) 0.00 Laboratory Tests 03/20 1200 Urines Urine Color (YEL/STRAW) YELLOW Urine Appearance (CLEAR) CLEAR Urine pH (5.0 - 7.0) 5.0 Ur Specific [place] (1.005 - 1.030) 1.011 Urine Protein (NEGATIVE) [...] Mucus (NONE SEEN /LPF) TRACE Diagnosis, Assessment Plan Hospital course to date: 82-year-old male with past medical history of hypertension, atrial fibrillation, supraventricular tachycardia status post ablation who was admitted with reports of multivessel coronary artery disease found on a cardiac catheterization done at [facility]. Patient was transferred to [facility] for CABG. He underwent [id number]. 1. Coronary artery disease -Status post CABG x5, ALAA, PVI -Continue metoprolol, Plavix, aspirin 2. Atrial fibrillation -Continue po amiodarone for rate control - taper AMIO per cards -Continue metoprolol -Monitor and review telemetry 3. Debility -.-PT/OT - PMR - Inpt Rehab 4. ARF - Trend cr 1.3-1.9-2.2-2.0-1.9 - post op, post lasix therefore likely pre-renal - baseline CKD is suspected - nephro consulted 5. anemia - acute, post op expecteed - monitor and transfuse if hg <7 - cont po Iron - Trend Hg 9.1 6. Delirium -Likely due to sundowning -Monitor closely -Patient is neurologically intact dispo: INPT REHAB total time spent 35mins Consultants: cardiology, cardiovascular surgery, hospitalist, nephrology Quality: Gen Med Crit Care Current Medications Current medication review: I attest that the foregoing medication list in the medical record is true, accurate, and complete to the best of my knowledge. Advanced Care Plan 65 or Older Discussed with: patient Discussion included: code status at 0917 RPT #:[id number] END OF REPORT [facility] 2022-08-21 12:53:00 [facility] ([facility]) Cardiothoracic Surgery Prog REPORT#:[id number] REPORT STATUS: Signed DATE:08/21/22 TIME: 1253 PATIENT: BRENNAN AHN UNIT #: [id number] ROOM/BED: [place] [address] : 42 AGE: 82 SEX: M ATTEND: Arthur Fuentes MD ADM AUTHOR: Shiloh Pimentel NP * ALL edits or amendments must be made on the electronic/computer document * General Status post: CABG PVI Subjective Chief complaint: Follow up CABG Comments: Doing well Review of Systems Constitutional: Denies: chills, fever, malaise. ENT: Denies: sore throat. Respiratory: Denies: hemoptysis, SOB. GI: Denies: nausea, vomiting. Heme: Denies: bleeding. All systems rev neg: except as marked Objective General VS/I O Last Documented: Result Date Time Pulse Ox [...] Urine 600 550 PATIENT WEIGHT: Weight (lb): 221 Weight (oz): 9.03 Weight (kg): 100.500 Physical Exam General appearance: alert, oriented, mental status normal, no respiratory distress Wound/incision: Location: sternum HEENT: anicteric Cardiovascular: normal heart sounds, regular rate rhythm Respiratory: aerating well, clear to auscultation, symmetric expansion, no distress Abdomen: soft, non-tender, no distention Extremities: moves all Neuro/GATE GUARD: alert, oriented X 3, normal speech, no motor deficits Psychiatry: normal affect, normal mood Current Medications Medications: Active Meds + DC'd Last 24 Hrs Phenazopyridine HCl (PYRIDIUM) 200 MG BID MEALS [...] Sodium (COLACE) 100 MG BID PO Ipratropium [place] (ATROVENT) 500 MCG RTQ6H INH Metoprolol Tartrate (LOPRESSOR) 25 MG Q12HR PO Sennosides (Senna Lax 8.6 MG TABLET) 17.2 MG BEDTIME PO Hydralazine HCl (APRESOLINE) 10 MG Q6H PRN PRN IV Acetaminophen (TYLENOL) 650 MG Q4H PRN PRN PO Ipratropium [place] (ATROVENT) 500 MCG RTQ2H PRN PRN INH Melatonin (Melatonin) 6 MG BEDTIME PRN PO Ondansetron HCl (ZOFRAN ODT) 4 MG TID PRN PRN SL Results Findings/Data: Laboratory Tests 08/21 0530 Chemistry Sodium (134 - [...] (Auto) (14.0 - 32.0 %) 9.9 L [place] % (Auto) (4.8 - 9.0 %) 8.2 Eos % (Auto) (0.3 - 3.7 %) 7.0 H Baso % (Auto) (0.0 - 2.0 %) 0.6 Neut # (Auto) (2.0 - 7.6 x10 3/uL) 6.91 Lymph # (Auto) (1.0 - 3.8 x10 3/uL) 0.93 L [place] # (Auto) (0.1 - 0.8 x10 3/uL) [...] pH (5.0 - 7.0) 5.0 Ur Specific [place] (1.005 - 1.030) 1.011 Urine Protein (NEGATIVE) [...] Gen Surg Advanced Care Plan 65 or Older Discussed with: patient Discussion included: code status Current Medications Current medication review: I attest that the foregoing medication list in the medical record is true, accurate, and complete to the best of my knowledge. Diagnosis, Assessment Plan Hospital course to date: Hospital course to date: 82 year old with PMH of hypertension, atrial fibrillation, On Eliquis, Hx of SVT ablation 20 years ago transferred to [facility] with new findings of multi-vessel CAD. He reports he was woken from Sleep on Sunday AM with COmplaints of chest pains. EMS aas called and patient was taken to [facility]. He underwent LHC and found to have multi-vessel CAD by Dr Sanchez. Patient was transferred to [facility] for CABG. Patient lives independently. Daughter is at bedside. Patient reports last dose of Elliquis was Sunday AM. Echo was done at [facility] showing EF 55%, Mild MR, Mild AI, mild LVH. According to his records, he has a hx of Chronic kidney disease with baseline Creatine reportedly 1.5. He does report he has seen a renal MD in the past. Assessment/ Plan 1) CAD, Mutli-vessel 2) hypertension Continue BBLKR Add Norvasc 5 mg 3) Atrial fibrillation. Last dose of Eliquis Sunday AM Obtain EKG 4) BPH Continue flomax Workup for CABG underway. Patient was seen and examined by Dr Dee. Coronary artery bypass surgery was discussed with the patient. The risk of the operation, including the STS score, cristian of blleding, infection, heart attack, stroke, Tracheostomy etc discussed with the patient. CT chest, carotid US, Vein mapping ordered. 08/11/22 POD 1 s/p CABG x 5 (NGUYEN-LAD, SVG-Olga Lidia, SVG-OM, SVG-LPLA, SVG-PDA), PVI, ALAA, EVH (RGSV) Patient hemodynamically stable this morning, having episodes of vagal response and BP drops 20 points, SR and sinus arrythmnia noted on nuclear monitoring technician, V epicardial wires on backup rate of 50 Amiodarone bolus and drip Keep MS chest tube and monitor outputs, DC LP chest tube after ambulation Minimal oxygen requirements on 2l nasal cannula, encourage deep breathing and I- S use CXR and labs reviewed Pain management Glycemic control on insulin drip Cardiac diet, nutritional supplements Bowel regimen, + gas Strict I Os, daily weights, albmuin x 1 given for decreased UOP- monitor hourly SCDs for DVT and PPI for GI prophylaxis PT/OT Monitor patient closely in CVICU, continue supportive care Patient seen with Dr. Dee, plan of care discussed with ICU team. 08/12 Alert and oriented, up in the chair Remains on amiodarone drip for A-fib Wean dopamine off Chest x-ray reviewed. Breathing comfortably on room air Creatinine increased to 1.9, urine output 1.5 L last night after the boluses of Lasix Repeat renal panel today show creatinine 2.2. Nephrology consulted, hold off on additional Lasix Replace electrolytes Encourage I-S and mobilization Glycemic controlled Keep in CVICU for close monitoring Patient seen and plan reviewed with Dr Piper, Dr Kirkpatrick, [facility] and multidisciplinary team 08/13 Intermittently confused. Continue delirium precautions Minimal O2 requirements, wean O2 as tolerated Allow for permissive hypertension as urine output improved with higher blood pressure Monitor renal function Encourage p.o. intake, bowel regimen Remains in A-fib, heart rate fairly controlled. Amiodarone drip at 0.5 Discontinue mediastinal chest tube Glycemic control Keep in CVICU for close monitoring. Patient seen and plan reviewed with Dr Kirkpatrick, [facility] multidisciplinary team Family updated at the bedside 08/14 Patient is alert and oriented, delirium precautions O2 requirements, encourage I-S Permissive hypertension for better renal perfusion Creatinine trending down, good urine output. Hold Lasix for now Encourage p.o. intake, bowel regimen Electrolyte replacement as needed Keep in CVICU today Plan for rehab. Awaiting insurance approval Patient was seen and plan reviewed with MCKAYLA Rojo and multidisciplinary team 08/15 No major events overnight Resp status stable on RA. Encourage IS HD stable. Remains in A fib, HR controlled Continue PO amio, BB increased to 25 mg BID Renal function improved, good UOP Will DC pacing wires tomorrow PT/OT Plan for rehab. Awaiting insurance approval Patient was seen and plan reviewed with Dr. Kirkpatrick, [facility] and multidisciplinary team 08/16 Creatine 1.9--> 2.0- Followed by Renal. appreciate input. DE-LINED. Longo out Ambulating. UO: PO lasix today. Cardiac: Atrial fib- rate controlled. On po amio- Pacing wires removed- Echo ordered. DVT studies orderd. Respiratory: On room air. Small left pleural effsuion. GI: + BM : Voiding well. Renal following Dispo: Rehab when bed available. 08/17 Patient resting comfortable. Seen in inpatient rehab. Ambulating well. Working with PT Voiding well. Positive bowel movements. Respiratory on room air. Cardiac: Sinus rhythm. Will decrease amiod to 200 BID GI: + BM Continue pT/OT making good progress. 08/21 Patient seen in rehab Respiratory status stable on RA No changes in sternal incision. Continue sternal precautions for 6 weeks Monitor renal function. Diuresis by nephrology Encourge PO intake, bowel regimen Continue rehab Consultants: cardiology, cardiovascular surgery, hospitalist, nephrology at 1259 at 9106 [facility] #:[phone] END OF REPORT [facility] 2022-08-21 09:39:00 [facility] ([facility]) Cardiology Progress Note REPORT#:[id number] REPORT STATUS: Signed DATE:08/21/22 TIME: 938 PATIENT: BRENNAN AHN UNIT #: [id number] ROOM/BED: [place] [address] : 42 AGE: 82 SEX: M ATTEND: Arthur Fuentes MD ADM AUTHOR: Catrina Shetty * ALL edits or amendments must be made on the electronic/computer document * Subjective Comments: LIghtheadedness during ambulation. Objective General VS/I O: 24 hour I O ending at 0700: [...] 98 Nasal cannula PATIENT WEIGHT: Weight (lb): 221 Weight (oz): 9.03 Weight (kg): 100.500 Medications: Active Meds + DC'd Last 24 Hrs Midodrine (PROAMATINE) 5 MG BID 9A 5P [...] Sodium (COLACE) 100 MG BID PO Ipratropium [place] (ATROVENT) 500 MCG RTQ6H INH Metoprolol Tartrate (LOPRESSOR) 25 MG Q12HR PO Sennosides (Senna Lax 8.6 MG TABLET) 17.2 MG BEDTIME PO Hydralazine HCl (APRESOLINE) 10 MG Q6H PRN PRN IV Acetaminophen (TYLENOL) 650 MG Q4H PRN PRN PO Ipratropium [place] (ATROVENT) 500 MCG RTQ2H PRN PRN INH Melatonin (Melatonin) 6 MG BEDTIME PRN PO Ondansetron HCl (ZOFRAN ODT) 4 MG TID PRN PRN SL Physical Exam General appearance: alert, awake, oriented Neck: non-tender, no JVD Cardiovascular: CV assessment: irregularly irregular, pedal edema (trace) Respiratory: decreased breath sounds, no distress Abdomen: soft, non-tender, normal bowel sounds, no distention Genitourinary: no flank pain, no urinary catheter Lower extremity: LE assessment: edema (trace) Musculoskeletal: normal inspection Neuro/GATE GUARD: alert Skin: dry Psychiatry: normal affect, normal mood Results Findings/Data: Laboratory Tests 08/21 0530 Chemistry Sodium (134 - [...] (Auto) (14.0 - 32.0 %) 9.9 L Briscoe % (Auto) (4.8 - 9.0 %) 8.2 Eos % (Auto) (0.3 - 3.7 %) 7.0 H Baso % (Auto) (0.0 - 2.0 %) 0.6 Neut # (Auto) (2.0 - 7.6 x10 3/uL) 6.91 Lymph # (Auto) (1.0 - 3.8 x10 3/uL) 0.93 L Briscoe # (Auto) (0.1 - 0.8 x10 3/uL) [...] signs reviewed, rhythm personally rev'd Diagnosis, Assessment Plan Plan discussed with: patient, interdisc care team Free Text DxA P Notes Free Text DxA P Notes: 82 YO male with MHX of Afib, HTN, HLD, CAD who is s/p 5 vessel CABG and PVI and ALAA. The patient is transferred to [facility] for inpatient rehabilitation. We are consulted for continuity of cardiac-related care. 1. CAD s/p CABG x 5 (NGUYEN-LAD, SVG-Olga Lidia, SVG-OM, SVG-LPLA, SVG-PDA) continue asa, BB, plavix, Zetia echo 08/12- LVEF 50-54%, left pleural effusion intolerant of statin, will consider nonstatin med such as Repatha or Nexletol outpatient LE edema significantly improved - on PO lasix per nephro 2. A-fib: Paroxysmal - rate controlled s/p PVI and ARISTEO amputation on amiodarone 200 mg BID - taper dose prior to discharge continue metoprolol 25 mg BID no need for AC since left atrial appendage was removed during CABG 3. HTN BP Supported by midodrine continue metoprolol 25 mg BID for HF 4. LADARIUS nephrology following 5. Dizziness with episode of hypotension check orthostatic VS continue midodrine apply compression stocking or abdominal binder before OOB may have to back off with PO Lasix Overall he is doing good. at 1252 at 1402 RPT #:[id number] END OF REPORT [facility] 2022-08-21 06:29:00 [facility] Rehab Progress Note REPORT#:[id number] REPORT STATUS: Signed DATE:08/21/22 TIME: 628 PATIENT: BRENNAN AHN UNIT #: [id number] ROOM/BED: [place] [address] : 42 AGE: 82 SEX: M ATTEND: Arthur Fuentes MD ADM AUTHOR: Arthur Fuentes MD * ALL edits or amendments must be made on the electronic/computer document * Subjective Chief complaint: Rehab follow-up Complaint of dysuria NAD Eating + BM Denies MORA/N/V/D/CP 14 systems reviewed and neg. except that above. History of present illness: 82-year-old male with PMH of Alzheimer's dementia, CKD, HTN, atrial fibrillation , history of SVT/ablation who was transferred to [facility] after being found to have multivessel coronary artery disease. Patient initially with was at home and developed chest pains. He was brought to [facility] and underwent left heart cath which revealed [...] of function was independent. Currently patient has generalized weakness. He lives by himself in a one-step up house. He denies any shortness of breath, nausea, vomiting, fever, chills. Denies chest pain. He is complaining of some constipation. He tells me that is in the process of selling his home. Preadmission screen was completed. Patient admitted to IRF. Objective General VS: Vital Signs: Date Time Temp Pulse Resp [...] 95 Room air PATIENT WEIGHT: Weight (lb): 221 Weight (oz): 9.03 Weight (kg): 100.500 Medications: Active Meds + DC'd Last 24 Hrs Midodrine (PROAMATINE) 5 MG BID 9A 5P [...] Sodium (COLACE) 100 MG BID PO Ipratropium [place] (ATROVENT) 500 MCG RTQ6H INH Metoprolol Tartrate (LOPRESSOR) 25 MG Q12HR PO Sennosides (Senna Lax 8.6 MG TABLET) 17.2 MG BEDTIME PO Hydralazine HCl (APRESOLINE) 10 MG Q6H PRN PRN IV Acetaminophen (TYLENOL) 650 MG Q4H PRN PRN PO Ipratropium [place] (ATROVENT) 500 MCG RTQ2H PRN PRN INH Melatonin (Melatonin) 6 MG BEDTIME PRN PO Ondansetron HCl (ZOFRAN ODT) 4 MG TID PRN PRN SL Dietitian nutrition assessment The data set between the solid lines has been imported from the dietitian's assessment. ___ BMI Calculated: 30.0 Nutrition related diagnosis: Morbid obesity Nutrition diagnosis details: BMI 40 or more Nutrition problem: Inadequate fluid intake Nutrition etiology: Decreased/poor appetite Nutrition signs and symptoms: Less than 75% intake Nutrition prescription: 1) Contiune w/current diet order (Caridac), if PO intake continues to be around 50%, consider swapping to regular. 2) Texture per RESOURCE ROOM TEACHER/MD recommendations Dietitian name: Logan Spain, DIET Assessment completed: 08/17/22 ___ Physical Exam General appearance: alert, awake, no acute distress Psych: alert, normal affect, oriented x 3 HEENT: anicteric, mucosal membranes moist, pupils reactive to light, sclera clear Neck: non-tender, supple, no JVD Cardiovascular: irregular rhythm, S1/S2, cap refill wnl, pulses intact Respiratory: diminished breath sounds, on oxygen, aerating well Abdomen: bowel sounds present, non-distended, soft, non-tender Skin: dry, normal temperature, no rash, bruising R thigh, mild L thigh, BUE, R hand Sl tender/edema, sternum incision H site CDI Musculoskeletal - general: Musculoskeletal - general: OA changes, normal tone, no swelling, Moves all 4 exts AG, calves NT, no cords, Homans neg Neuro/GATE GUARD: alert, oriented X 3, CNII-XII intact, normal speech, no motor deficits, no sensory deficits Results Findings/Data: Laboratory Tests 08/21 08/21 0530 0530 Chemistry Sodium [...] % (Auto) (14.0 - 32.0 %) 9.9 Briscoe % (Auto) (4.8 - 9.0 %) 8.2 Eos % (Auto) (0.3 - 3.7 %) 7.0 Baso % (Auto) (0.0 - 2.0 %) 0.6 Neut # (Auto) (2.0 - 7.6 x10 3/uL) 6.91 Lymph # (Auto) (1.0 - 3.8 x10 3/uL) 0.93 Briscoe # (Auto) (0.1 - 0.8 x10 3/uL) [...] - 0.1 x10 3/uL) 0.00 Diagnosis, Assessment Plan Problem List/A P: 1. CAD (coronary artery disease) 2. Afib 3. HTN (hypertension) 4. S/P CABG x 5 5. Impaired functional mobility, balance, gait, and endurance Free Text A P: Assessment: Multivessel CAD 08/10: S/p CABG x5-Dr. Dee A-fib s/p a ARISTEO Endoscopic RGSV harvest 08/16: Echo-EF 50-54%, small pericardial effusion Small bilateral pleural effusions. Muscle weakness Unsteady gait Alzheimer's dementia Postoperative anemia LADARIUS on CKD HTN Impairment in self-care, ADLs and functional mobility Plan: -Continue PT/OT -Case management for safe discharge planning. -Decubitus prevention-protective hydrating lotion-turn every 2 hours-offload -Bowel program-MiraLAX, senna, -Nutrition, monitor the patient's p.o. intake, check albumin 3.5 and prealbumin 14.3, dietary consult, protein supplements. BMI above normal parameters. Working with dietary, follow up with PCP -Strict fall and safety precaution -DVT prophylaxis-SCDs -GI prophylaxis on Protonix -CAD on Plavix and aspirin, intolerant to statins -Pulmonary toilet frequent I-S, nebs, wean O2 -Early mobilization-OOB to chair -Work on bed mobility, transfer training, ADLs, pre-gait and gait exercises as tolerable. -Increase endurance and strength -Pain management -Postop care as per CVS -Monitor telemetry -Cardiology on case -LADARIUS as per nephrology -Dementia/confusion-Higher level of nursing care and monitoring for safety -Appreciate consultants input -Continue current medication -Strict sternal precautions -Monitor sites of bruising and right hand pain-from previous phlebotomy sites-no signs of infection -Labs reviewed-WBC normal, hemoglobin 9.1, 8.9, platelets stable, creatinine 1.9 , 2.2, magnesium normal, HgbA1C 5.2. -Anemia-vitamin B12 and ferrous sulfate -Advance therapies as tolerable -Orthostasis/dizziness-diuretic s reduced-midodrine added-use ENZO hose and abdominal binder when out of bed-monitor -Patient tolerating treatment sessions fair and ambulating limited due to orthostasis. Patient requires max verbal cues to remind him of sternal precautions. -Dysuria-check UA -Team conference Progress: GAIT TRAINING: PATIENT AMBULATED 80', 50' MIN A WITH RW. PT C/O OF INCREASED DIZINESS WITH AMBULATION AND ORTHOSTATIC. BP SITTING 105/67, STANDING 81/40. BP RECOVERS WITH SEATED RB 101/60. PM R Please see team note. Plan and goals discussed with the patient. I agree with the teams finding ELOS: [ ] DC-home- DME- Total time was 33 minutes > 50% with patient performing physical examination, discussing sternal precautions, plan of care, goals, therapies, progress, medications, labs. All questions answered Orders: Procedure Date/time Status UA WITH CULTURE IF INDICATED 08/21 1044 Active Stockings: Antiembolism 08/21 0637 Active Abdominal Binder, Apply 08/21 0637 Active PREALBUMIN 08/21 0530 Complete ALBUMIN 08/21 0530 Complete NEB TREATMENT SUBSQ 08/21 0326 Active NEB TREATMENT SUBSQ 08/208 Active NEB TREATMENT SUBSQ 08/19 235 Complete NEB TREATMENT SUBSQ 08/18 2359 Complete Consultants: cardiology, cardiovascular surgery, hospitalist, nephrology Rehab attestation: Face to face exam completed. Treatment plan discussed with patient. Meets continued stay criteria. Agree with interdisciplinary treatment plan. at 1044 [facility] #:[id number] END OF REPORT [facility] 2022-08-20 23:34:00 [facility] ([facility]) Nephrology Progress Note REPORT#:[id number] REPORT STATUS: Signed DATE:08/20/22 TIME: 2333 PATIENT: BRENNAN AHN UNIT #: [id number] ROOM/BED: [place] [address] : 42 AGE: 82 SEX: M ATTEND: Arthur Fuentes MD ADM AUTHOR: Maura Terrazas MD * ALL edits or amendments must be made on the electronic/computer document * Subjective Chief complaint: chest pain HPI: 82-year-old male known to have hypertension, atrial fibrillation, supraventricular tachycardia with requiring ablation presenting with multivessel cardiovascular disease and he underwent CABG 07/13/2022. He endorsed having kidney issues in the past and seeing a progress man at [place] but his kidney function had been stable since then.He developed oliguria,LADARIUS and hypervolemia post CABG but had now improved and was transferred to rehab. 08/20 Patient appearing comfortable,denying all systemic review including dizziness. Objective General VS/I O: Vital Signs: Date Time Temp Pulse Resp [...] Urine 600 550 PATIENT WEIGHT: Weight (lb): 221 Weight (oz): 9.03 Weight (kg): 100.500 Physical Exam General appearance: alert, awake, oriented Head/eyes: atraumatic, clear cornea, EOMI ENT: moist mucous membranes, normal nose Neck: no JVD, no masses or swelling Cardiovascular: normal heart sounds, regular rate and rhythm Respiratory: aerating well, clear to auscultation Abdomen: non-tender, soft Genitourinary: no bladder distention, no flank pain Extremities: pitting edema, no gangrene, no swelling Diagnosis, Assessment Plan Free Text A P: 82-year-old male known to have hypertension, atrial fibrillation, supraventricular tachycardia with requiring ablation presenting with multivessel cardiovascular disease and he underwent CABG 07/13/2022. Transferred [...] recently had surgery. Resolving with better hemodynamics. His kidney function was stable plan was to [...] keep his blood pressures above 100 systolic. Consultants: cardiology, cardiovascular surgery, hospitalist, nephrology at 1954 RPT #:[id number] END OF REPORT [facility] 2022-08-20 15:32:00 [facility]) Internal Medicine Prog. Note REPORT#:[id number] REPORT STATUS: Signed DATE:08/20/22 TIME: 1531 PATIENT: BRENNAN AHN UNIT #: [id number] ROOM/BED: [place] [address] : 42 AGE: 82 SEX: M ATTEND: Arthur Fuentes MD ADM AUTHOR: Devin Fox DO * ALL edits or amendments must be made on the electronic/computer document * Subjective Chief complaint: pt s c/o . now in rehab Review of Systems All systems rev neg: except as marked Objective General VS/I O: Vital Signs Date Temp Pulse Resp B/P B/P Mean Pulse Ox FiO2 08/19-08/20 97.2-98.1 65-96 16-18 81-133/40-73 0.0-91.8 94-99 Last Documented: Result Date [...] Output, Urine 600 PATIENT WEIGHT: Weight (lb): 221 Weight (oz): 9.03 Weight (kg): 100.500 Medications: Active Meds + DC'd Last 24 Hrs Midodrine (PROAMATINE) 5 MG BID 9A 5P [...] Sodium (COLACE) 100 MG BID PO Ipratropium [place] (ATROVENT) 500 MCG RTQ6H INH Metoprolol Tartrate (LOPRESSOR) 25 MG Q12HR PO Sennosides (Senna Lax 8.6 MG TABLET) 17.2 MG BEDTIME PO Hydralazine HCl (APRESOLINE) 10 MG Q6H PRN PRN IV Acetaminophen (TYLENOL) 650 MG Q4H PRN PRN PO Ipratropium [place] (ATROVENT) 500 MCG RTQ2H PRN PRN INH Melatonin (Melatonin) 6 MG BEDTIME PRN PO Ondansetron HCl (ZOFRAN ODT) 4 MG TID PRN PRN SL Physical Exam General appearance: alert, awake, oriented Head/Eyes: EOMI, PERRLA Neck: non-tender, no JVD Cardiovascular: normal heart sounds, regular rate rhythm Respiratory: aerating well, clear to auscultation Abdomen: non-tender, normal bowel sounds Extremities: Extremities: no cyanosis, no edema Neuro/GATE GUARD: alert, oriented x 3, CNII-XII intact Diagnosis, Assessment Plan Hospital course to date: 82-year-old male with past medical history of hypertension, atrial fibrillation, supraventricular tachycardia status post ablation who was admitted with reports of multivessel coronary artery disease found on a cardiac catheterization done at [facility]. Patient was transferred to [facility] for CABG. He underwent [id number]. 1. Coronary artery disease -Status post CABG x5, ALAA, PVI -Continue metoprolol, Plavix, aspirin 2. Atrial fibrillation -Continue po amiodarone for rate control - taper AMIO per cards -Continue metoprolol -Monitor and review telemetry 3. Debility -.-PT/OT - PMR - Inpt Rehab 4. ARF - Trend cr 1.3-1.9-2.2-2.0-1.9 - post op, post lasix therefore likely pre-renal - baseline CKD is suspected - nephro consulted 5. anemia - acute, post op expecteed - monitor and transfuse if hg <7 - cont po Iron - Trend Hg 9.1 6. Delirium -Likely due to sundowning -Monitor closely -Patient is neurologically intact dispo: INPT REHAB total time spent 35mins Consultants: cardiology, cardiovascular surgery, hospitalist, nephrology Quality: Gen Med Crit Care Current Medications Current medication review: I attest that the foregoing medication list in the medical record is true, accurate, and complete to the best of my knowledge. Advanced Care Plan 65 or Older Discussed with: patient Discussion included: code status at 0917 RPT #:[id number] END OF REPORT [facility] 2022-08-20 08:17:00 [facility] ([facility]) Cardiology Progress Note REPORT#:[id number] REPORT STATUS: Signed DATE:08/20/22 TIME: 08 PATIENT: BRENNAN AHN UNIT #: [id number] ROOM/BED: [place] [address] : 42 AGE: 82 SEX: M ATTEND: Arthur Fuentes MD ADM AUTHOR: Freddy Celis MD * ALL edits or amendments must be made on the electronic/computer document * Subjective Chief complaint: None Objective General VS/I O: 24 hour I O ending at 0700: [...] 70 18 105/62 0.0 94 Room air 18 1112 97.7 59 18 103/60 74.5 99 Room air PATIENT WEIGHT: Weight (lb): 221 Weight (oz): 9.03 Weight (kg): 100.500 Medications: Active Meds + DC'd Last 24 Hrs Midodrine (PROAMATINE) 2.5 MG BID 9A 5P [...] Sodium (COLACE) 100 MG BID PO Ipratropium [place] (ATROVENT) 500 MCG RTQ6H INH Metoprolol Tartrate (LOPRESSOR) 25 MG Q12HR PO Sennosides (Senna Lax 8.6 MG TABLET) 17.2 MG BEDTIME PO Hydralazine HCl (APRESOLINE) 10 MG Q6H PRN PRN IV Acetaminophen (TYLENOL) 650 MG Q4H PRN PRN PO Ipratropium [place] (ATROVENT) 500 MCG RTQ2H PRN PRN INH Melatonin (Melatonin) 6 MG BEDTIME PRN PO Ondansetron HCl (ZOFRAN ODT) 4 MG TID PRN PRN SL Physical Exam General appearance: sleeping comfortably Neck: non-tender, no JVD Cardiovascular: CV assessment: irregularly irregular, pedal edema Respiratory: decreased breath sounds, no distress Abdomen: soft, non-tender, normal bowel sounds, no distention Genitourinary: no flank pain, no urinary catheter Lower extremity: LE assessment: edema Musculoskeletal: normal inspection Neuro/GATE GUARD: alert Skin: dry Psychiatry: normal affect, normal mood Diagnosis, Assessment Plan Consultants: cardiology, cardiovascular surgery, hospitalist, nephrology Free Text DxA P Notes Free Text DxA P Notes: 82 YO male with MHX of Afib, HTN, HLD, CAD who is s/p 5 vessel CABG and PVI and ALAA. The patient is transferred to [facility] for inpatient rehabilitation. We are consulted for continuity of cardiac-related care. 1. CAD s/p CABG x 5 (NGUYEN-LAD, SVG-Olga Lidia, SVG-OM, SVG-LPLA, SVG-PDA) continue asa, BB, plavix, Zetia echo 08/12- LVEF 50-54%, left pleural effusion intolerant of statin, will consider nonstatin med such as Repatha or Nexletol outpatient RLE edema - continue PO lasix 40 mg daily 2. A-fib: Paroxysmal - rate controlled s/p PVI and ARISTEO amputation on amiodarone 200 mg BID - will taper dose prior to discharge continue BB no need for AC since left atrial appendage was removed during CABG 3. HTN - normotensive continue metoprolol 25 mg BID 4. LADARIUS nephrology following at 0817 RPT #:[id number] END OF REPORT [facility] 2022-08-20 05:47:00 [facility] ([facility]) Rehab Progress Note REPORT#:[id number] REPORT STATUS: Signed DATE:08/20/22 TIME: 0547 PATIENT: BRENNAN AHN UNIT #: [id number] ROOM/BED: [place] [address] : 42 AGE: 82 SEX: M ATTEND: Arthur Fuentes MD ADM AUTHOR: Florentino Jimenez * ALL edits or amendments must be made on the electronic/computer document * Subjective Chief complaint: Rehab follow-up Doing well Confused NAD Eating + BM Denies MORA/N/V/D/CP 14 systems reviewed and neg. except that above. History of present illness: 82-year-old male with PMH of Alzheimer's dementia, CKD, HTN, atrial fibrillation , history of SVT/ablation who was transferred to [facility] after being found to have multivessel coronary artery disease. Patient initially with was at home and developed chest pains. He was brought to [facility] and underwent left heart cath which revealed [...] of function was independent. Currently patient has generalized weakness. He lives by himself in a one-step up house. He denies any shortness of breath, nausea, vomiting, fever, chills. Denies chest pain. He is complaining of some constipation. He tells me that is in the process of selling his home. Preadmission screen was completed. Patient admitted to IRF. Objective General VS: Vital Signs: Date Time Temp Pulse Resp [...] 94 Room air PATIENT WEIGHT: Weight (lb): 221 Weight (oz): 9.03 Weight (kg): 100.500 Medications: Active Meds + DC'd Last 24 Hrs Midodrine (PROAMATINE) 2.5 MG BID 9A 5P [...] Sodium (COLACE) 100 MG BID PO Ipratropium [place] (ATROVENT) 500 MCG RTQ6H INH Metoprolol Tartrate (LOPRESSOR) 25 MG Q12HR PO Sennosides (Senna Lax 8.6 MG TABLET) 17.2 MG BEDTIME PO Hydralazine HCl (APRESOLINE) 10 MG Q6H PRN PRN IV Acetaminophen (TYLENOL) 650 MG Q4H PRN PRN PO Ipratropium [place] (ATROVENT) 500 MCG RTQ2H PRN PRN INH Melatonin (Melatonin) 6 MG BEDTIME PRN PO Ondansetron HCl (ZOFRAN ODT) 4 MG TID PRN PRN SL Dietitian nutrition assessment The data set between the solid lines has been imported from the dietitian's assessment. ___ BMI Calculated: 30.0 Nutrition related diagnosis: Morbid obesity Nutrition diagnosis details: BMI 40 or more Nutrition problem: Inadequate fluid intake Nutrition etiology: Decreased/poor appetite Nutrition signs and symptoms: Less than 75% intake Nutrition prescription: 1) Contiune w/current diet order (Caridac), if PO intake continues to be around 50%, consider swapping to regular. 2) Texture per RESOURCE ROOM TEACHER/MD recommendations Dietitian name: Logan Spain, DIET Assessment completed: 08/17/22 ___ Functional Progress Functional progress: PT daily note comment: S: Upon arrival pt in bed. Son present for orientation. Son confirmed pt lived alone RN SUPPLEMENTAL was still driving however family was already looking into [facility]. O: Pt tolerated 90 min of skilled [...] required mod A for STS to RW stand pivot transfers w/ max v/c's for sternal precautions. A: Pt tolerated tx fair however demo poor carryover w/ maintaining sternal precautions requiring max v/c 's throughout tx. Pt left sitting up in w/c in room. Alarm activated, call light all needs within reach. RN notified. P: Continue w/ POC. Physical Exam General appearance: alert, awake Psych: alert, normal affect, oriented x 3 HEENT: anicteric, mucosal membranes moist, pupils reactive to light, sclera clear Neck: non-tender, supple, no JVD Cardiovascular: irregular rhythm, S1/S2, cap refill wnl, pulses intact Respiratory: diminished breath sounds, on oxygen, aerating well Abdomen: bowel sounds present, non-distended, soft, non-tender Skin: dry, normal temperature, no rash, bruising R thigh, mild L thigh, BUE, R hand Sl tender/edema, sternum incision [facility] site CDI Musculoskeletal - general: Musculoskeletal - general: OA changes, normal tone, no swelling, Moves all 4 exts AG, calves NT, no cords, Homans neg Neuro/GATE GUARD: alert, oriented X 3, CNII-XII intact, normal speech, no motor deficits, no sensory deficits Results Findings/Data: No new labs Diagnosis, Assessment Plan Problem List/A P: 1. CAD (coronary artery disease) 2. Afib 3. HTN (hypertension) 4. S/P CABG x 5 5. Impaired functional mobility, balance, gait, and endurance Free Text A P: Assessment: Multivessel CAD 08/10: S/p CABG x5-Dr. Dee A-fib s/p a ARISTEO Endoscopic RGSV harvest 08/16: Echo-EF 50-54%, small pericardial effusion Small bilateral pleural effusions. Muscle weakness Unsteady gait Alzheimer's dementia Postoperative anemia LADARIUS on CKD HTN Impairment in self-care, ADLs and functional mobility Plan: -Continue PT/OT -Case management for safe discharge planning. -Decubitus prevention-protective hydrating lotion-turn every 2 hours-offload -Bowel program-MiraLAX, senna, -Nutrition, monitor the patient's p.o. intake, check albumin 3.3 and prealbumin, dietary consult, protein supplements. -Strict fall and safety precaution -DVT prophylaxis-SCDs -GI prophylaxis on Protonix -CAD on Plavix and aspirin, intolerant to statins -Pulmonary toilet frequent I-S, nebs, wean O2 -Early mobilization-OOB to chair -Work on bed mobility, transfer training, ADLs, pre-gait and gait exercises as tolerable. -Increase endurance and strength -Pain management -Postop care as per CVS -Monitor telemetry -Cardiology on case -LADARIUS as per nephrology -Dementia/confusion-Higher level of nursing care and monitoring for safety -Appreciate consultants input -Continue current medication -Strict sternal precautions -Monitor sites of bruising and right hand pain-from previous phlebotomy sites-no signs of infection -Labs reviewed-WBC normal, hemoglobin 9.1, platelets normal, creatinine 1.9, magnesium normal -Anemia-vitamin B12 and ferrous sulfate -Advance therapies as tolerable -Requires reminders on sternal precautions -HgbA1C 5.2. BMI above normal parameters. Follow up with PCP -Patient has poor safety awareness due to dementia with impaired balance and gait, decreased strength and endurance. Continues to benefit from rehabilitation to maximize mobility for safe return to home -Check labs on Sunday PM R Please see team note. Plan and goals discussed with the patient. I agree with the teams finding ELOS: [ ] DC-home- DME- Total time was 33 minutes > 50% with patient performing physical examination, discussing sternal precautions, plan of care, goals, therapies, progress, medications, labs. All questions answered Rehab attestation: Face to face exam completed. Treatment plan discussed with patient. Meets continued stay criteria. Agree with interdisciplinary treatment plan. at 0521 RPT #:[id number] END OF REPORT [facility] 2022-08-19 14:16:00 [facility] Nephrology Progress Note REPORT#:[id number] REPORT STATUS: Signed DATE:08/19/22 TIME: 141 PATIENT: BRENNAN AHN UNIT #: [id number] [place] [facility] [place] AGE: 82 SEX: M ATTEND: Arthur Fuentes MD ADM AUTHOR: Maura Terrazas MD * ALL edits or amendments must be made on the electronic/computer document * Subjective Chief complaint: chest pain HPI: 82-year-old male known to have hypertension, atrial fibrillation, supraventricular tachycardia with requiring ablation presenting with multivessel cardiovascular disease and he underwent CABG 07/13/2022. He endorsed having kidney issues in the past and seeing a progress man at [place] but his kidney function had been stable since then.He developed oliguria,LADARIUS and hypervolemia post CABG but had now improved and was transferred to rehab. 08/19 Patient appearing comfortable,denying all systemic review including dizziness Objective General VS/I O: Vital Signs: Date Time Temp Pulse Resp B/P B/P Pulse O2 O2 Flow FiO2 Mean Ox Delivery Rate 08/20 0926 86 101/63 75.6 08/20 0911 [...] Output, Urine 600 PATIENT WEIGHT: Weight (lb): 221 Weight (oz): 9.03 Weight (kg): 100.500 Physical Exam General appearance: alert, awake, oriented Head/eyes: atraumatic, clear cornea, EOMI ENT: moist mucous membranes, normal nose Neck: no JVD, no masses or swelling Cardiovascular: normal heart sounds, regular rate and rhythm Respiratory: aerating well, clear to auscultation Abdomen: non-tender, soft Genitourinary: no bladder distention, no flank pain Extremities: pitting edema, no gangrene, no swelling Diagnosis, Assessment Plan Free Text A P: 82-year-old male known to have hypertension, atrial fibrillation, supraventricular tachycardia with requiring ablation presenting with multivessel cardiovascular disease and he underwent CABG 07/13/2022. Transferred [...] hypotension so not on any medications besides lasix. Consultants: cardiology, cardiovascular surgery, hospitalist, nephrology at 1047 RPT #:[id number] END OF REPORT [facility] 2022-08-19 12:53:00 [facility] Internal Medicine Prog. Note REPORT#:[id number] REPORT STATUS: Signed DATE:08/19/22 TIME: 1253 PATIENT: BRENNAN AHN UNIT #: [id number] ROOM/BED: [place] [address] : 42 AGE: 82 SEX: M ATTEND: Arthur Fuentes MD ADM AUTHOR: Devin Fox DO * ALL edits or amendments must be made on the electronic/computer document * Subjective Chief complaint: pt s c/o . now in rehab Review of Systems All systems rev neg: except as marked Objective General VS/I O: Vital Signs Date Temp Pulse Resp B/P B/P [...] Output, Urine 400 PATIENT WEIGHT: Weight (lb): 221 Weight (oz): 9.03 Weight (kg): 100.500 Medications: Active Meds + DC'd Last 24 Hrs Furosemide (LASIX) 40 MG Q12H PO Duloxetine [...] Sodium (COLACE) 100 MG BID PO Ipratropium [place] (ATROVENT) 500 MCG RTQ6H INH Metoprolol Tartrate (LOPRESSOR) 25 MG Q12HR PO Sennosides (Senna Lax 8.6 MG TABLET) 17.2 MG BEDTIME PO Hydralazine HCl (APRESOLINE) 10 MG Q6H PRN PRN IV Acetaminophen (TYLENOL) 650 MG Q4H PRN PRN PO Ipratropium [place] (ATROVENT) 500 MCG RTQ2H PRN PRN INH Melatonin (Melatonin) 6 MG BEDTIME PRN PO Ondansetron HCl (ZOFRAN ODT) 4 MG TID PRN PRN SL Physical Exam Head/Eyes: EOMI, PERRLA Neck: non-tender, no JVD Cardiovascular: normal heart sounds, regular rate rhythm Respiratory: aerating well, clear to auscultation Abdomen: non-tender, normal bowel sounds Extremities: Extremities: no cyanosis, no edema Neuro/GATE GUARD: alert, oriented x 3, CNII-XII intact Diagnosis, Assessment Plan Hospital course to date: 82-year-old male with past medical history of hypertension, atrial fibrillation, supraventricular tachycardia status post ablation who was admitted with reports of multivessel coronary artery disease found on a cardiac catheterization done at [facility]. Patient was transferred to [facility] for CABG. He underwent QFORh9y. 1. Coronary artery disease -Status post CABG x5, ALAA, PVI -Continue metoprolol, Plavix, aspirin 2. Atrial fibrillation -Continue po amiodarone for rate control - taper AMIO per cards -Continue metoprolol -Monitor and review telemetry 3. Debility -.-PT/OT - PMR - Inpt Rehab 4. ARF - Trend cr 1.3-1.9-2.2-2.0-1.9 - post op, post lasix therefore likely pre-renal - baseline CKD is suspected - nephro consulted 5. anemia - acute, post op expecteed - monitor and transfuse if hg <7 - cont po Iron - Trend Hg 9.1 6. Delirium -Likely due to sundowning -Monitor closely -Patient is neurologically intact dispo: INPT REHAB total time spent 35mins Consultants: cardiology, cardiovascular surgery, hospitalist, nephrology Quality: Gen Med Crit Care Current Medications Current medication review: I attest that the foregoing medication list in the medical record is true, accurate, and complete to the best of my knowledge. Advanced Care Plan 65 or Older Discussed with: patient Discussion included: code status at 2157 RPT #:[id number] END OF REPORT [facility] 2022-08-19 07:15:00 [facility] ([facility]) Cardiology Progress Note REPORT#:[id number] REPORT STATUS: Signed DATE:08/19/22 TIME: 714 PATIENT: BRENNAN AHN UNIT #: [id number] ROOM/BED: [place] [address] : 42 AGE: 82 SEX: M ATTEND: Arthur Fuentes MD ADM AUTHOR: Freddy Celis MD * ALL edits or amendments must be made on the electronic/computer document * Subjective Chief complaint: None Objective General VS/I O: 24 hour I O ending at 0700: [...] 08/18 2124 96 Room air 08/18 1954 97.9 83 16 165/80 108.0 95 Room air 08/18 1525 98.1 70 18 127/64 84.9 97 Room air 08/18 1012 97.7 69 18 116/62 80.3 97 Room air 08/18 0919 95 Room air PATIENT WEIGHT: Weight (lb): 221 Weight (oz): 9.03 Weight (kg): 100.500 Medications: Active Meds + DC'd Last 24 Hrs Furosemide (LASIX) 40 MG Q12H PO Duloxetine [...] Sodium (COLACE) 100 MG BID PO Ipratropium [place] (ATROVENT) 500 MCG RTQ6H INH Metoprolol Tartrate (LOPRESSOR) 25 MG Q12HR PO Sennosides (Senna Lax 8.6 MG TABLET) 17.2 MG BEDTIME PO Hydralazine HCl (APRESOLINE) 10 MG Q6H PRN PRN IV Acetaminophen (TYLENOL) 650 MG Q4H PRN PRN PO Ipratropium [place] (ATROVENT) 500 MCG RTQ2H PRN PRN INH Melatonin (Melatonin) 6 MG BEDTIME PRN PO Ondansetron HCl (ZOFRAN ODT) 4 MG TID PRN PRN SL Physical Exam General appearance: sleeping comfortably Neck: non-tender, no JVD Cardiovascular: CV assessment: irregularly irregular, pedal edema Respiratory: decreased breath sounds, no distress Abdomen: soft, non-tender, normal bowel sounds, no distention Genitourinary: no flank pain, no urinary catheter Lower extremity: LE assessment: edema Musculoskeletal: normal inspection Neuro/GATE GUARD: alert Skin: dry Psychiatry: normal affect, normal mood Diagnosis, Assessment Plan Consultants: cardiology, cardiovascular surgery, hospitalist, nephrology Free Text DxA P Notes Free Text DxA P Notes: 82 YO male with MHX of Afib, HTN, HLD, CAD who is s/p 5 vessel CABG and PVI and ALAA. The patient is transferred to [facility] for inpatient rehabilitation. We are consulted for continuity of cardiac-related care. 1. CAD s/p CABG x 5 (NGUYEN-LAD, SVG-Olga Lidia, SVG-OM, SVG-LPLA, SVG-PDA) continue asa, BB, plavix, Zetia echo 08/12- LVEF 50-54%, left pleural effusion intolerant of statin, will consider nonstatin med such as Repatha or Nexletol outpatient RLE edema - continue PO lasix 40 mg daily 2. A-fib: Paroxysmal - rate controlled s/p PVI and ARISTEO amputation on amiodarone 200 mg BID - will taper dose prior to discharge continue BB no need for AC since left atrial appendage was removed during CABG 3. HTN - normotensive continue metoprolol 25 mg BID 4. LADARIUS nephrology following at 0715 RPT #:[id number] END OF REPORT [facility] 2022-08-19 05:41:00 [facility] Rehab Progress Note REPORT#:[id number] REPORT STATUS: Signed DATE:08/19/22 TIME: 05 PATIENT: BRENNAN AHN UNIT #: [id number] ROOM/BED: [place] [address] : 42 AGE: 82 SEX: M ATTEND: Arthur Fuentes MD ADM AUTHOR: Florentino Jimenez * ALL edits or amendments must be made on the electronic/computer document * Subjective Chief complaint: Rehab follow-up Doing well With some confusion today NAD Eating + BM Denies MORA/N/V/D/CP 14 systems reviewed and neg. except that above. History of present illness: 82-year-old male with PMH of Alzheimer's dementia, CKD, HTN, atrial fibrillation , history of SVT/ablation who was transferred to [facility] after being found to have multivessel coronary artery disease. Patient initially with was at home and developed chest pains. He was brought to [facility] and underwent left heart cath which revealed [...] of function was independent. Currently patient has generalized weakness. He lives by himself in a one-step up house. He denies any shortness of breath, nausea, vomiting, fever, chills. Denies chest pain. He is complaining of some constipation. He tells me that is in the process of selling his home. Preadmission screen was completed. Patient admitted to IRF. Objective General VS: Vital Signs: Date Time Temp Pulse Resp [...] 95 Room air PATIENT WEIGHT: Weight (lb): 221 Weight (oz): 9.03 Weight (kg): 100.500 Medications: Active Meds + DC'd Last 24 Hrs Furosemide (LASIX) 40 MG Q12H PO Duloxetine [...] Sodium (COLACE) 100 MG BID PO Ipratropium [place] (ATROVENT) 500 MCG RTQ6H INH Metoprolol Tartrate (LOPRESSOR) 25 MG Q12HR PO Sennosides (Senna Lax 8.6 MG TABLET) 17.2 MG BEDTIME PO Hydralazine HCl (APRESOLINE) 10 MG Q6H PRN PRN IV Acetaminophen (TYLENOL) 650 MG Q4H PRN PRN PO Ipratropium [place] (ATROVENT) 500 MCG RTQ2H PRN PRN INH Melatonin (Melatonin) 6 MG BEDTIME PRN PO Ondansetron HCl (ZOFRAN ODT) 4 MG TID PRN PRN SL Functional Progress Functional progress: PT daily note comment: S: Upon arrival pt in bed. Son present for orientation. Son confirmed pt lived alone RN SUPPLEMENTAL was still driving however family was already [...] required mod A for STS to RW stand pivot transfers w/ max v/c's for sternal precautions. A: Pt tolerated tx fair however demo poor carryover w/ maintaining sternal precautions requiring max v/c 's throughout tx. Pt left sitting up in w/c in room. Alarm activated, call light all needs within reach. RN notified. Physical Exam General appearance: alert, awake Psych: alert, normal affect, oriented x 3 HEENT: anicteric, mucosal membranes moist, pupils reactive to light, sclera clear Neck: non-tender, supple, no JVD Cardiovascular: irregular rhythm, S1/S2, cap refill wnl, pulses intact Respiratory: diminished breath sounds, on oxygen, aerating well Abdomen: bowel sounds present, non-distended, soft, non-tender Skin: dry, normal temperature, no rash, bruising R thigh, mild L thigh, BUE, R hand Sl tender/edema, sternum incision RSH site CDI Musculoskeletal - general: Musculoskeletal - general: OA changes, normal tone, no swelling, Moves all 4 exts AG, calves NT, no cords, Homans neg Neuro/GATE GUARD: alert, oriented X 3, CNII-XII intact, normal speech, no motor deficits, no sensory deficits Results Findings/Data: Laboratory Tests 08/17 520 Chemistry Sodium (134 - [...] 5.0 g/dL) 3.30 L Laboratory Tests 08/17 520 Hematology WBC (4.5 - 11.0 x10 3/uL) [...] % (Auto) (14.0 - 32.0 %) 14.4 Briscoe % (Auto) (4.8 - 9.0 %) 12.6 H Eos % (Auto) (0.3 - 3.7 %) 6.9 H Baso % (Auto) (0.0 - 2.0 %) 0.7 Neut # (Auto) (2.0 - 7.6 x10 3/uL) 5.59 Lymph # (Auto) (1.0 - 3.8 x10 3/uL) 1.25 Briscoe # (Auto) (0.1 - 0.8 x10 3/uL) [...] Surveillance Screen - COMP NASAL Diagnosis, Assessment Plan Problem List/A P: 1. CAD (coronary artery disease) 2. Afib 3. HTN (hypertension) 4. S/P CABG x 5 5. Impaired functional mobility, balance, gait, and endurance Free Text A P: Assessment: Multivessel CAD 08/10: S/p CABG x5-Dr. Dee A-fib s/p a ARISTEO Endoscopic RGSV harvest 08/16: Echo-EF 50-54%, small pericardial effusion Small bilateral pleural effusions. Muscle weakness Unsteady gait Alzheimer's dementia Postoperative anemia LADARIUS on CKD HTN Impairment in self-care, ADLs and functional mobility Plan: -Continue PT/OT -Case management for safe discharge planning. -Decubitus prevention-protective hydrating lotion-turn every 2 hours-offload -Bowel program-MiraLAX, senna, -Nutrition, monitor the patient's p.o. intake, check albumin 3.3 and prealbumin, dietary consult, protein supplements. -Strict fall and safety precaution -DVT prophylaxis-SCDs -GI prophylaxis on Protonix -CAD on Plavix and aspirin, intolerant to statins -Pulmonary toilet frequent I-S, nebs, wean O2 -Early mobilization-OOB to chair -Work on bed mobility, transfer training, ADLs, pre-gait and gait exercises as tolerable. -Increase endurance and strength -Pain management -Postop care as per CVS -Monitor telemetry -Cardiology on case -LADARIUS as per nephrology -Dementia/confusion-Higher level of nursing care and monitoring for safety -Appreciate consultants input -Continue current medication -Strict sternal precautions -Monitor sites of bruising and right hand pain-from previous phlebotomy sites-no signs of infection -Labs reviewed-WBC normal, hemoglobin 9.1, platelets normal, creatinine 1.9, magnesium normal -Anemia-vitamin B12 and ferrous sulfate -Advance therapies as tolerable -Requires reminders on sternal precautions -Patient has poor safety awareness due to dementia with impaired balance and gait, decreased strength and endurance. Continues to benefit from rehabilitation to maximize mobility for safe return to home -Check labs on Sunday PM R Please see team note. Plan and goals discussed with the patient. I agree with the teams finding ELOS: [ ] DC-home- DME- Total time was 33 minutes > 50% with patient performing physical examination, discussing sternal precautions, plan of care, goals, therapies, progress, medications, labs. All questions answered Rehab attestation: Face to face exam completed. Treatment plan discussed with patient. Meets continued stay criteria. Agree with interdisciplinary treatment plan. at 0537 RPT #:[id number] END OF REPORT [facility] 2022-08-18 23:15:00 [facility] ([facility]) Nephrology Progress Note REPORT#:[id number] REPORT STATUS: Signed DATE:08/18/22 TIME: 2314 PATIENT: BRENNAN AHN UNIT #: [id number] ROOM[facility]BED: [facility] : 42 AGE: 82 SEX: M ATTEND: Arthur Fuentes MD ADM AUTHOR: Maura Terrazas MD * ALL edits or amendments must be made on the electronic/computer document * Subjective Chief complaint: chest pain HPI: 82-year-old male known to have hypertension, atrial fibrillation, supraventricular tachycardia with requiring ablation presenting with multivessel cardiovascular disease and he underwent CABG 07/13/2022. He endorsed having kidney issues in the past and seeing a progress man at [place] but his kidney function had been stable since then.He developed oliguria,LADARIUS and hypervolemia post CABG but had now improved and was transferred to rehab. 08/18 Patient appearing comfortable,denying systemic review. Objective General VS/I O: Vital Signs: Date Time Temp Pulse Resp [...] Output, Urine 400 PATIENT WEIGHT: Weight (lb): 221 Weight (oz): 9.03 Weight (kg): 100.500 Physical Exam General appearance: alert, awake, oriented Head/eyes: atraumatic, clear cornea, EOMI ENT: moist mucous membranes, normal nose Neck: no JVD, no masses or swelling Cardiovascular: normal heart sounds, regular rate and rhythm Respiratory: aerating well, clear to auscultation Abdomen: non-tender, soft Genitourinary: no bladder distention, no flank pain Extremities: pitting edema, no gangrene, no swelling Diagnosis, Assessment Plan Free Text A P: 82-year-old male known to have hypertension, atrial fibrillation, supraventricular tachycardia with requiring ablation presenting with multivessel cardiovascular disease and he underwent CABG 07/13/2022. Transferred [...] so dose reduced to 40 PO daily. Tolerating 40 mg QD . 3. Electrolytes: His electrolytes appear to be in normal range plan is to monitor and replace as needed. 4. HTN:Controlled with current medications.Plan to continue same.He develops orthostasis so medication doses minimised. Consultants: cardiology, cardiovascular surgery, hospitalist, nephrology at 1415 RPT #:[id number] END OF REPORT [facility] 2022-08-18 16:04:00 [facility] Internal Medicine Prog. Note REPORT#:[id number] REPORT STATUS: Signed DATE:08/18/22 TIME: 1604 PATIENT: BRENNAN AHN UNIT #: [id number] ROOM/BED: [place] [address] : 42 AGE: 82 SEX: M ATTEND: Arthur Fuentes MD ADM AUTHOR: Devin Fox DO * ALL edits or amendments must be made on the electronic/computer document * Subjective Chief complaint: pt s c/o . now in rehab Review of Systems All systems rev neg: except as marked Objective General VS/I O: Vital Signs Date Temp Pulse Resp B/P B/P Mean Pulse Ox FiO2 /-08/18 97.5-98.1 69-91 14-18 109-152/60-72 76.5-98.5 93-98 Last [...] Number Voids 1 PATIENT WEIGHT: Weight (lb): 221 Weight (oz): 9.03 Weight (kg): 100.500 Medications: Active Meds + DC'd Last 24 Hrs Duloxetine HCl (CYMBALTA) 60 MG BEDTIME PO [...] Sodium (COLACE) 100 MG BID PO Ipratropium [place] (ATROVENT) 500 MCG RTQ6H INH Metoprolol Tartrate (LOPRESSOR) 25 MG Q12HR PO Sennosides (Senna Lax 8.6 MG TABLET) 17.2 MG BEDTIME PO Hydralazine HCl (APRESOLINE) 10 MG Q6H PRN PRN IV Acetaminophen (TYLENOL) 650 MG Q4H PRN PRN PO Ipratropium [place] (ATROVENT) 500 MCG RTQ2H PRN PRN INH Melatonin (Melatonin) 6 MG BEDTIME PRN PO Ondansetron HCl (ZOFRAN ODT) 4 MG TID PRN PRN SL Physical Exam General appearance: alert, awake, oriented Head/Eyes: EOMI, PERRLA Neck: non-tender, no JVD Cardiovascular: normal heart sounds, regular rate rhythm Respiratory: aerating well, clear to auscultation Abdomen: non-tender, normal bowel sounds Extremities: Extremities: no cyanosis, no edema Neuro/GATE GUARD: alert, oriented x 3, CNII-XII intact Diagnosis, Assessment Plan Hospital course to date: 82-year-old male with past medical history of hypertension, atrial fibrillation, supraventricular tachycardia status post ablation who was admitted with reports of multivessel coronary artery disease found on a cardiac catheterization done at [facility]. Patient was transferred to [facility] for CABG. He underwent CORAy3t. 1. Coronary artery disease -Status post CABG x5, ALAA, PVI -Continue metoprolol, Plavix, aspirin 2. Atrial fibrillation -Continue po amiodarone for rate control - taper AMIO per cards -Continue metoprolol -Monitor and review telemetry 3. Debility -.-PT/OT - PMR - Inpt Rehab 4. ARF - Trend cr 1.3-1.9-2.2-2.0-1.9 - post op, post lasix therefore likely pre-renal - baseline CKD is suspected - nephro consulted 5. anemia - acute, post op expecteed - monitor and transfuse if hg <7 - cont po Iron - Trend Hg 9.1 6. Delirium -Likely due to sundowning -Monitor closely -Patient is neurologically intact dispo: INPT REHAB total time spent 35mins Consultants: cardiology, cardiovascular surgery, hospitalist, nephrology Quality: [facility] Current Medications Current medication review: I attest that the foregoing medication list in the medical record is true, accurate, and complete to the best of my knowledge. Advanced Care Plan 65 or Older Discussed with: patient Discussion included: code status at 2157 RPT #:[id number] END OF REPORT [facility] 2022-08-18 09:35:00 [facility] ([facility]) Cardiology Progress Note REPORT#:[id number] REPORT STATUS: Signed DATE:08/18/22 TIME: 934 PATIENT: BRENNAN AHN UNIT #: [id number] ROOM/BED: [place] [address] : 42 AGE: 82 SEX: M ATTEND: Arthur Fuentes MD ADM AUTHOR: Catrina Shetty * ALL edits or amendments must be made on the electronic/computer document * Subjective Comments: oozing from RLE harvest site Objective General VS/I O: 24 hour I O ending at 0700: [...] 94 Room air PATIENT WEIGHT: Weight (lb): 221 Weight (oz): 9.03 Weight (kg): 100.500 Medications: Active Meds + DC'd Last 24 Hrs Ezetimibe (ZETIA) 10 MG DAILY PO Amiodarone [...] Sodium (COLACE) 100 MG BID PO Ipratropium [place] (ATROVENT) 500 MCG RTQ6H INH Metoprolol Tartrate (LOPRESSOR) 25 MG Q12HR PO Sennosides (Senna Lax 8.6 MG TABLET) 17.2 MG BEDTIME PO Amiodarone HCl (CORDARONE) 200 MG TID PO (DC) Hydralazine HCl (APRESOLINE) 10 MG Q6H PRN PRN IV Acetaminophen (TYLENOL) 650 MG Q4H PRN PRN PO Ipratropium Kingston (ATROVENT) 500 MCG RTQ2H PRN PRN INH Melatonin (Melatonin) 6 MG BEDTIME PRN PO Ondansetron HCl (ZOFRAN ODT) 4 MG TID PRN PRN SL Physical Exam General appearance: alert, awake Neck: non-tender, no JVD Cardiovascular: CV assessment: irregularly irregular, pedal edema Respiratory: decreased breath sounds, no distress Abdomen: soft, non-tender, normal bowel sounds, no distention Genitourinary: no flank pain, no urinary catheter Lower extremity: LE assessment: edema Musculoskeletal: normal inspection Neuro/GATE GUARD: alert Skin: dry Psychiatry: normal affect, normal mood Results Results: no new labs, vital signs reviewed, rhythm personally rev'd Telemetry Interpretation: afib with conrolled rate Diagnosis, Assessment Plan Plan discussed with: patient, son, nurse Free Text DxA P Notes Free Text DxA P Notes: 82 YO male with MHX of Afib, HTN, HLD, CAD who is s/p 5 vessel CABG and PVI and ALAA. The patient is transferred to [facility] for inpatient rehabilitation. We are consulted for continuity of cardiac-related care. 1. CAD s/p CABG x 5 (NGUYEN-LAD, SVG-Olga Lidia, SVG-OM, SVG-LPLA, SVG-PDA) continue asa, BB, plavix, Zetia echo 08/12- LVEF 50-54%, left pleural effusion intolerant of statin, will consider nonstatin med such as Repatha or Nexletol outpatient RLE edema - continue PO lasix 40 mg daily 2. A-fib: Paroxysmal - rate controlled s/p PVI and ARISTEO amputation on amiodarone 200 mg BID - will taper dose prior to discharge continue BB no need for AC since left atrial appendage was removed during CABG 3. HTN - normotensive continue metoprolol 25 mg BID 4. LADARIUS nephrology following at 1103 at 1308 RPT #:[id number] END OF REPORT [facility] 2022-08-18 07:26:00 [facility] Progress Note REPORT#:[id number] REPORT STATUS: Signed DATE:08/18/22 TIME: 725 PATIENT: BRENNAN AHN UNIT #: [id number] [facility] AGE: 82 SEX: M ATTEND: Arthur Fuentes MD ADM AUTHOR: Arthur Fuentes MD * ALL edits or amendments must be made on the electronic/computer document * Subjective Chief complaint: We will patient follow-up Doing well Breathing well on room air NAD Eating Positive BM Son in room Patient denies nausea, vomiting, fever, chest pain, shortness of breath. History of present illness: 82-year-old male with PMH of Alzheimer's dementia, CKD, HTN, atrial fibrillation , history of SVT/ablation who was transferred to [facility] after being found to have multivessel coronary artery disease. Patient initially with was at home and developed chest pains. He was brought to [facility] and underwent left heart cath which revealed [...] of function was independent. Currently patient has generalized weakness. He lives by himself in a one-step up house. He denies any shortness of breath, nausea, vomiting, fever, chills. Denies chest pain. He is complaining of some constipation. He tells me that is in the process of selling his home. Preadmission screen was completed. Patient admitted to IRF. Objective General VS: Vital Signs: Date Time Temp Pulse Resp B/P B/P Pulse O2 O2 Flow FiO2 Mean Ox Delivery Rate 08/18 0706 98.1 81 18 152/72 98.5 95 Room air 08/18 0432 73 14 130/67 88.0 98 08/18 0337 93 Room air 03/17 0002 97.5 71 16 120/71 87.5 97 08/17 2045 93 Room air 08/17 1937 98.1 91 16 109/60 76.5 97 08/17 1545 97.5 70 16 128/76 0.0 61 Room air 08/17 1053 97.9 78 16 136/68 90.4 94 Room air PATIENT WEIGHT: Weight (lb): 221 Weight (oz): 9.03 Weight (kg): 100.500 Medications: Active Meds + DC'd Last 24 Hrs Ezetimibe (ZETIA) 10 MG DAILY PO Amiodarone [...] Sodium (COLACE) 100 MG BID PO Ipratropium [place] (ATROVENT) 500 MCG RTQ6H INH Metoprolol Tartrate (LOPRESSOR) 25 MG Q12HR PO Sennosides (Senna Lax 8.6 MG TABLET) 17.2 MG BEDTIME PO Amiodarone HCl (CORDARONE) 200 MG TID PO (DC) Hydralazine HCl (APRESOLINE) 10 MG Q6H PRN PRN IV Acetaminophen (TYLENOL) 650 MG Q4H PRN PRN PO Ipratropium [place] (ATROVENT) 500 MCG RTQ2H PRN PRN INH Melatonin (Melatonin) 6 MG BEDTIME PRN PO Ondansetron HCl (ZOFRAN ODT) 4 MG TID PRN PRN SL Physical Exam General appearance: alert, awake Psych: alert, normal affect, oriented x 3 HEENT: anicteric, mucosal membranes moist, pupils reactive to light, sclera clear Neck: non-tender, supple, no JVD Cardiovascular: irregular rhythm, S1/S2, cap refill wnl, pulses intact Respiratory: diminished breath sounds, on oxygen, aerating well Abdomen: bowel sounds present, non-distended, soft, non-tender Skin: dry, normal temperature, no rash, bruising R thigh, mild L thigh, BUE, R hand Sl tender/edema, sternum incision [facility] site CDI Musculoskeletal - general: Musculoskeletal - general: OA changes, normal tone, no swelling, Moves all 4 exts AG, calves NT, no cords, Homans neg Neuro/GATE GUARD: alert, oriented X 3, CNII-XII intact, normal speech, no motor deficits, no sensory deficits Results Findings/Data: Laboratory Tests 08/17 0521 Chemistry Sodium (134 - [...] % (Auto) (14.0 - 32.0 %) 14.4 Briscoe % (Auto) (4.8 - 9.0 %) 12.6 Eos % (Auto) (0.3 - 3.7 %) 6.9 Baso % (Auto) (0.0 - 2.0 %) 0.7 Neut # (Auto) (2.0 - 7.6 x10 3/uL) 5.59 Lymph # (Auto) (1.0 - 3.8 x10 3/uL) 1.25 Briscoe # (Auto) (0.1 - 0.8 x10 3/uL) [...] - 0.1 x10 3/uL) 0.00 Diagnosis, Assessment Plan Problem List/A P: 1. CAD (coronary artery disease) 2. Afib 3. HTN (hypertension) 4. S/P CABG x 5 5. Impaired functional mobility, balance, gait, and endurance Free Text A P: Assessment: Multivessel CAD 08/10: S/p CABG x5-Dr. Dee A-fib s/p a ARISTEO Endoscopic RGSV harvest 08/16: Echo-EF 50-54%, small pericardial effusion Small bilateral pleural effusions. Muscle weakness Unsteady gait Alzheimer's dementia Postoperative anemia LADARIUS on CKD HTN Impairment in self-care, ADLs and functional mobility Plan: -Continue PT/OT -Case management for safe discharge planning. -Decubitus prevention-protective hydrating lotion-turn every 2 hours-offload -Bowel program-MiraLAX, senna, -Nutrition, monitor the patient's p.o. intake, check albumin 3.3 and prealbumin, dietary consult, protein supplements. -Strict fall and safety precaution -DVT prophylaxis-SCDs -GI prophylaxis on Protonix -CAD on Plavix and aspirin, intolerant to statins -Pulmonary toilet frequent I-S, nebs, wean O2 -Early mobilization-OOB to chair -Work on bed mobility, transfer training, ADLs, pre-gait and gait exercises as tolerable. -Increase endurance and strength -Pain management -Postop care as per CVS -Monitor telemetry -Cardiology on case -LADARIUS as per nephrology -Dementia/confusion-Higher level of nursing care and monitoring for safety -Appreciate consultants input -Continue current medication -Strict sternal precautions -Monitor sites of bruising and right hand pain-from previous phlebotomy sites-no signs of infection -Labs reviewed-WBC normal, hemoglobin 9.1, platelets normal, creatinine 1.9, magnesium normal -Anemia-vitamin B12 and ferrous sulfate -Advance therapies as tolerable -Patient has poor safety awareness due to dementia with impaired balance and gait, decreased strength and endurance. Continues to benefit from rehabilitation to maximize mobility for safe return to home -Check labs on Sunday Progress: SIT TO STAND FROM BED W/ MIN A. PIVOTS TO W/C W/ MIN A. SIT<-.STAND FROM TOILET AND W/C W/ MOD A AND CUES NOT TO PUSH/PULL W/ ARMS. GAIT W/ RW X 40' W/ CUES FOR POSTURE AND SAFETY, MIN A. SPO2 98-99% ON RA, HR PER TELE 70-80S BUT IN A FIB. PM R Please see team note. Plan and goals discussed with the patient. I agree with the teams finding ELOS: [ ] DC-home-HH DME- TT 35 min>50% with discussing with patient about progress, rehab plan of care, goals, expectations, needs, and medical issues, examination. MAR and EMR reviewed. All Questions answered. Orders: Procedure Date/time Status CBC W/AUTO DIFF 08/21 0400 Active BASIC METABOLIC PANEL 08/21 0400 Active NEB TREATMENT SUBSQ 08/18 0925 Active NEB TREATMENT SUBSQ 08/18 0347 Active NEB TREATMENT SUBSQ 08/17 2045 Active Consultants: cardiology, cardiovascular surgery, hospitalist, nephrology Rehab attestation: Face to face exam completed. Treatment plan discussed with patient. Meets continued stay criteria. Agree with interdisciplinary treatment plan. at 1154 RPT #:[id number] END OF REPORT [facility] 2022-08-17 15:29:00 [facility] ([facility]) Cardiothoracic Surgery Prog REPORT#:[id number] REPORT STATUS: Signed DATE:08/17/22 TIME: 152 PATIENT: BRENNAN AHN UNIT #: [id number] ROOM/BED: [place] [address] : 42 AGE: 82 SEX: M ATTEND: Arthur Fuentes MD ADM AUTHOR: Pamela Burnette * ALL edits or amendments must be made on the electronic/computer document * Review of Systems All systems rev neg: except as marked Quality: Trauma Gen Surg Advanced Care Plan 65 or Older Discussed with: patient Discussion included: code status Current Medications Current medication review: I attest that the foregoing medication list in the medical record is true, accurate, and complete to the best of my knowledge. Diagnosis, Assessment Plan Hospital course to date: Hospital course to date: 82 year old with PMH of hypertension, atrial fibrillation, On Eliquis, Hx of SVT ablation 20 years ago transferred to [facility] with new findings of multi-vessel CAD. He reports he was woken from Sleep on Sunday AM with COmplaints of chest pains. EMS aas called and patient was taken to [facility]. He underwent LHC and found to have multi-vessel CAD by Dr Sanchez. Patient was transferred to [facility] for CABG. Patient lives independently. Daughter is at bedside. Patient reports last dose of Elliquis was Sunday AM. Echo was done at [facility] showing EF 55%, Mild MR, Mild AI, mild LVH. According to his records, he has a hx of Chronic kidney disease with baseline Creatine reportedly 1.5. He does report he has seen a renal MD in the past. Assessment/ Plan 1) CAD, Mutli-vessel 2) hypertension Continue BBLKR Add Norvasc 5 mg 3) Atrial fibrillation. Last dose of Eliquis Sunday AM Obtain EKG 4) BPH Continue flomax Workup for CABG underway. Patient was seen and examined by Dr Dee. Coronary artery bypass surgery was discussed with the patient. The risk of the operation, including the STS score, cristian of blleding, infection, heart attack, stroke, Tracheostomy etc discussed with the patient. CT chest, carotid US, Vein mapping ordered. 08/11/22 POD 1 s/p CABG x 5 (NGUYEN-LAD, SVG-Olga Lidia, SVG-OM, SVG-LPLA, SVG-PDA), PVI, ALAA, EVH (RGSV) Patient hemodynamically stable this morning, having episodes of vagal response and BP drops 20 points, SR and sinus arrythmnia noted on nuclear monitoring technician, V epicardial wires on backup rate of 50 Amiodarone bolus and drip Keep MS chest tube and monitor outputs, DC LP chest tube after ambulation Minimal oxygen requirements on 2l nasal cannula, encourage deep breathing and I- S use CXR and labs reviewed Pain management Glycemic control on insulin drip Cardiac diet, nutritional supplements Bowel regimen, + gas Strict I Os, daily weights, albmuin x 1 given for decreased UOP- monitor hourly SCDs for DVT and PPI for GI prophylaxis PT/OT Monitor patient closely in CVICU, continue supportive care Patient seen with Dr. Dee, plan of care discussed with ICU team. 08/12 Alert and oriented, up in the chair Remains on amiodarone drip for A-fib Wean dopamine off Chest x-ray reviewed. Breathing comfortably on room air Creatinine increased to 1.9, urine output 1.5 L last night after the boluses of Lasix Repeat renal panel today show creatinine 2.2. Nephrology consulted, hold off on additional Lasix Replace electrolytes Encourage I-S and mobilization Glycemic controlled Keep in CVICU for close monitoring Patient seen and plan reviewed with Dr Piper, Dr Kirkpatrick, [facility] and multidisciplinary team 08/13 Intermittently confused. Continue delirium precautions Minimal O2 requirements, wean O2 as tolerated Allow for permissive hypertension as urine output improved with higher blood pressure Monitor renal function Encourage p.o. intake, bowel regimen Remains in A-fib, heart rate fairly controlled. Amiodarone drip at 0.5 Discontinue mediastinal chest tube Glycemic control Keep in CVICU for close monitoring. Patient seen and plan reviewed with Dr Kirkpatrick, MCKAYLA multidisciplinary team Family updated at the bedside 08/14 Patient is alert and oriented, delirium precautions O2 requirements, encourage I-S Permissive hypertension for better renal perfusion Creatinine trending down, good urine output. Hold Lasix for now Encourage p.o. intake, bowel regimen Electrolyte replacement as needed Keep in CVICU today Plan for rehab. Awaiting insurance approval Patient was seen and plan reviewed with MCKAYLA Rojo and multidisciplinary team 08/15 No major events overnight Resp status stable on RA. Encourage IS HD stable. Remains in A fib, HR controlled Continue PO amio, BB increased to 25 mg BID Renal function improved, good UOP Will DC pacing wires tomorrow PT/OT Plan for rehab. Awaiting insurance approval Patient was seen and plan reviewed with MCKAYLA Rojo and multidisciplinary team 08/16 Creatine 1.9--> 2.0- Followed by Renal. appreciate input. DE-LINED. Longo out Ambulating. UO: PO lasix today. Cardiac: Atrial fib- rate controlled. On po amio- Pacing wires removed- Echo ordered. DVT studies orderd. Respiratory: On room air. Small left pleural effsuion. GI: + BM : Voiding well. Renal following Dispo: Rehab when bed available. 08/17 Patient resting comfortable. Seen in inpatient rehab. Ambulating well. Working with PT Voiding well. Positive bowel movements. Respiratory on room air. Cardiac: Sinus rhythm. Will decrease amiod to 200 BID GI: + BM Continue pT/OT making good progress. Consultants: cardiology, cardiovascular surgery, hospitalist, nephrology at 1534 RPT #:[id number] END OF REPORT [facility] 2022-08-17 15:00:00 [facility] ([facility]) Nephrology Consultation Note REPORT#:[id number] REPORT STATUS: Signed DATE:08/17/22 TIME: 1500 PATIENT: BRENNAN AHN UNIT #: [id number] ROOM/BED: [place] [address] : 42 AGE: 82 SEX: M ATTEND: Arthur Fuentes MD ADM AUTHOR: Maura Terrazas MD * ALL edits or amendments must be made on the electronic/computer document * History of Present Illness Requesting clinician: Dr Figueroa Reason for consult: LADARIUS/hypervolemia Chief complaint: chest pain PCP: PCP: No Primary or Family Physician HPI: 82-year-old male known to have hypertension, atrial fibrillation, supraventricular tachycardia with requiring ablation presenting with multivessel cardiovascular disease and he underwent CABG 07/13/2022. He endorsed having kidney issues in the past and seeing a progress man at [place] but his kidney function had been stable since then.He developed oliguria,LADARIUS and hypervolemia post CABG but had now improved and was transferred to rehab. History - Adult longitudinal Past medical history: Reports: Atrial fibrillation, Coronary artery disease, Dementia, Kidney disease/ stones. Past surgical history: Reports: CABG. Additional surgical history: Crevial Laminectomy amputation of left atrial appendage Family history: Reports: Hypertension. Alcohol use: Denies EtOH use Drug use: Denies recreational drugs Smoking status for patients 13 years old or older: Former Smoker Allergies: Coded Allergies: Mfldyby-JCO-QyS Reductase Inhibitor (Severe, UNKNOWN 08/16/22) Review of Systems Constitutional: Denies: fever, generalized weakness. Skin: Denies: laceration, rash. Allergy/Immun: Denies: hives, itching. Eyes: Denies: redness, discharge. ENT: Denies: sore throat, throat pain, throat swelling. Respiratory: Denies: JANG (dyspnea on exertion), hemoptysis, non productive cough. Cardiovascular: Denies: chest pain, JANG (dyspnea on exertion), edema. GI: Denies: abdominal pain, anorexia, constipation. : Denies: dysuria, flank pain, frequency. Musculoskeletal: Denies: arthritis, extremity pain, extremity swelling. Objective General VS/I O: Vital Signs: Date Time Temp Pulse Resp B/P B/P Pulse O2 O2 Flow FiO2 Mean Ox Delivery Rate 08/19 2123 96 Room air 21 08/18 195 36.6 83 16 165/80 108.0 95 Room [...] Number Voids 1 PATIENT WEIGHT: Weight (lb): 221 Weight (oz): 9.03 Weight (kg): 100.500 Physical Exam General appearance: alert, awake, oriented Head/eyes: atraumatic, clear cornea, EOMI ENT: moist mucous membranes, normal nose Neck: no JVD, no masses or swelling Cardiovascular: normal heart sounds, regular rate and rhythm Respiratory: aerating well, clear to auscultation Abdomen: non-tender, soft Genitourinary: no bladder distention, no flank pain Extremities: pitting edema, no gangrene, no swelling Diagnosis, Assessment Plan Consultants: cardiology, cardiovascular surgery, hospitalist, nephrology Free Text DxA P Notes Free text DxA P notes: 82-year-old male known to have hypertension, atrial fibrillation, supraventricular tachycardia with requiring ablation presenting with multivessel cardiovascular disease and he underwent CABG 07/13/2022. Transferred [...] develops orthostasis so medication doses minimised. at [facility] #:[id number] END OF REPORT [facility] 2022-08-17 15:00:00 [facility]) Internal Medicine Prog. Note REPORT#:[id number] REPORT STATUS: Signed DATE:08/17/22 TIME: 1500 PATIENT: BRENNAN AHN UNIT #: [id number] ROOM[facility]BED: [facility] : 42 AGE: 82 SEX: M ATTEND: Arthur Fuentes MD ADM AUTHOR: Ruddy,Devin DO * ALL edits or amendments must be made on the electronic/computer document * Subjective Chief complaint: pt s c/o . now in rehab Review of Systems All systems rev neg: except as marked Objective General VS/I O: Vital Signs Date Temp Pulse Resp B/P B/P Mean Pulse Ox FiO2 08/16-08/17 97.3-98.6 69-82 14-20 118-155/64-78 86.4-103.3 92-98 Last [...] scale Measurement Method PATIENT WEIGHT: Weight (lb): 221 Weight (oz): 9.03 Weight (kg): 100.500 Medications: Active Meds + DC'd Last 24 Hrs Ezetimibe (ZETIA) 10 MG DAILY PO Aspirin [...] Sodium (COLACE) 100 MG BID PO Ipratropium [place] (ATROVENT) 500 MCG RTQ6H INH Metoprolol Tartrate (LOPRESSOR) 25 MG Q12HR PO Sennosides (Senna Lax 8.6 MG TABLET) 17.2 MG BEDTIME PO Amiodarone HCl (CORDARONE) 200 MG TID PO Hydralazine HCl (APRESOLINE) 10 MG Q6H PRN PRN IV Acetaminophen (TYLENOL) 650 MG Q4H PRN PRN PO Ipratropium [place] (ATROVENT) 500 MCG RTQ2H PRN PRN INH Melatonin (Melatonin) 6 MG BEDTIME PRN PO Ondansetron HCl (ZOFRAN ODT) 4 MG TID PRN PRN SL Physical Exam General appearance: alert, awake, oriented Head/Eyes: EOMI, PERRLA Neck: non-tender, no JVD Cardiovascular: normal heart sounds, regular rate rhythm Respiratory: aerating well, clear to auscultation Abdomen: non-tender, normal bowel sounds Extremities: Extremities: no cyanosis, no edema Neuro/GATE GUARD: alert, oriented x 3, CNII-XII intact Results Findings/Data: Laboratory Tests 08/17/22520: [Embedded Image Not Available] Laboratory Tests 08/17 520 Chemistry Sodium (134 - [...] 5.0 g/dL) 3.30 L Laboratory Tests 08/17 520 Hematology WBC (4.5 - 11.0 x10 3/uL) [...] % (Auto) (14.0 - 32.0 %) 14.4 Briscoe % (Auto) (4.8 - 9.0 %) 12.6 H Eos % (Auto) (0.3 - 3.7 %) 6.9 H Baso % (Auto) (0.0 - 2.0 %) 0.7 Neut # (Auto) (2.0 - 7.6 x10 3/uL) 5.59 Lymph # (Auto) (1.0 - 3.8 x10 3/uL) 1.25 Briscoe # (Auto) (0.1 - 0.8 x10 3/uL) [...] - 0.1 x10 3/uL) 0.00 Diagnosis, Assessment Plan Hospital course to date: 82-year-old male with past medical history of hypertension, atrial fibrillation, supraventricular tachycardia status post ablation who was admitted with reports of multivessel coronary artery disease found on a cardiac catheterization done at [facility]. Patient was transferred to [facility] for CABG. He underwent [id number]. 1. Coronary artery disease -Status post CABG x5, ALAA, PVI -Continue metoprolol, Plavix, aspirin 2. Atrial fibrillation -Continue po amiodarone for rate control - taper AMIO per cards -Continue metoprolol -Monitor and review telemetry 3. Debility -.-PT/OT - PMR - Inpt Rehab 4. ARF - Trend cr 1.3-1.9-2.2-2.0-1.9 - post op, post lasix therefore likely pre-renal - baseline CKD is suspected - nephro consulted 5. anemia - acute, post op expecteed - monitor and transfuse if hg <7 - cont po Iron - Trend Hg 9.1 6. Delirium -Likely due to sundowning -Monitor closely -Patient is neurologically intact dispo: INPT REHAB total time spent 35mins Consultants: cardiology, cardiovascular surgery, hospitalist, nephrology Quality: Gen Med Crit Care Current Medications Current medication review: I attest that the foregoing medication list in the medical record is true, accurate, and complete to the best of my knowledge. Advanced Care Plan 65 or Older Discussed with: patient Discussion included: code status at 2157 RPT #:[id number] END OF REPORT [facility] 2022-08-17 11:52:00 [facility] Indiv Overall POC REPORT#:[id number] REPORT STATUS: Signed DATE:08/17/22 TIME: 1152 PATIENT: BRENNAN AHN UNIT #: [id number] ROOM/BED: [place] [address] : 42 AGE: 82 SEX: M ATTEND: Arthur Fuentes MD ADM AUTHOR: Arthur Fuentes MD * ALL edits or amendments must be made on the electronic/computer document * Individualized Overall POC HPI Impairment group: cardiac disorders NOTE Document ONLY ONE Impairment Group Etiologic diagnosis: CAD MULTIVESSEL A FIB PAROXYSMAL Medical Expected Course Expected DC destination: Expected DC destination: Home Problem List/A P: 1. CAD (coronary artery disease) 2. Afib 3. HTN (hypertension) 4. S/P CABG x 5 5. Impaired functional mobility, balance, gait, and endurance Medical prognosis: good Medical prognosis details: pt motivation, family/caregiver support, D/C plan Expected course of Tx: -Comprehensive inpatient rehabilitation with physical, occupational and speech therapy 3 hours a day for 5 to 6 days per week-25/12 rehabilitation physician supervision-25/12 rehabilitation nursing care. -Case management for safe discharge planning. -Rehab MD to monitor comorbidities and functional progress. -Decubitus prevention-protective hydrating lotion-turn every 2 hours-offload -Bowel program-MiraLAX, senna, -Nutrition, monitor the patient's p.o. intake, check albumin three-point and prealbumin, dietary consult, protein supplements. -Strict fall and safety precaution -DVT prophylaxis-SCDs -GI prophylaxis on Protonix -CAD on Plavix and aspirin, intolerant to statins -Pulmonary toilet frequent I-S, nebs, wean O2 -Early mobilization-OOB to chair -Work on bed mobility, transfer training, ADLs, pre-gait and gait exercises as tolerable. -Increase endurance and strength -Pain management -Postop care as per CVS -Monitor telemetry -Cardiology on case -LADARIUS as per nephrology -Dementia/confusion-Higher level of nursing care and monitoring for safety -Appreciate consultants input -Continue current medication -Strict sternal precautions -Monitor sites of bruising and right hand pain-from previous phlebotomy sites-no signs of infection -Labs reviewed-WBC normal, hemoglobin 9.1, platelets normal, creatinine 1.9, magnesium normal -Anemia-vitamin B12 and ferrous sulfate -ELOS: 14 days -GOALS: Modified independent, learn sternal precautions -Advance therapies as tolerable Functional Expected Course Functional expected course: The data set between the solid lines has been imported from multidisciplinary team documentation: __ ANTICIPATED SERVICES IN ACUTE INPATIENT REHAB: DISCIPLINE Physical Therapy Occupational Therapy Speech Therapy INTENSITY (minutes/day) 90 90 FREQUENCY (days/week) 5 6 DURATION (# of days) 14 14 EXPECTED FUNCTIONAL [...] Setup/clean-up only (5) object discharge goal: CARE [place] 50 feet Independent (6) with two turns discharge goal: CARE [place] 150 Independent (6) feet discharge goal: CARE [...] WITH BM AT LEAST ONCE EVERY 3 DAYS. Bladder function goal: PATIENT WILL REMAIN CONTINENT OF BLADDER-UTILIZING URINAL OR UP TO BATHROOM FOR VOIDING. _ ELOS Attestation: Based upon the review of clinical staff recommendations of frequency, duration and intensity and individual assessment of this patient, I estimate the following: See H P Estimated length of stay: 14 days MD Review/Recommendation Attestation: Based upon my physical evaluation of the patient [...] not provided in lower levels of care. Complex acute rehab needs: Custom therapy tx plan, Mgt of complex Co-morb, Med adjustment/mgmt., New medical diagnosis, Postsurgery req mgt/care, Nutritional compromise, Hospitalist consult, Complex pain management, VTE Risk at 1220 RPT #:[id number] END OF REPORT [facility] 2022-08-17 10:14:00 [facility] ([facility]) Cardiology Consultation REPORT#:[id number] REPORT STATUS: Signed DATE:08/17/22 TIME: 1014 PATIENT: BRENNAN AHN UNIT #: [id number] ROOM/BED: [place] [address] : 42 AGE: 82 SEX: M ATTEND: Arthur Fuentes MD ADM AUTHOR: Catrina Shetty AGACNP * ALL edits or amendments must be made on the electronic/computer document * History of Present Illness HPI Requesting Clinician: Dr. Fuentes Reason for consult: Cardiology management Chief complaint: None PCP: PCP: No Primary or Family Physician HPI: 82 YO male with MHX of Afib, HTN, HLD, CAD who is s/p 5 vessel CABG and PVI and ALAA. The patient is transferred to [facility] for inpatient rehabilitation. We are consulted for continuity of cardiac-related care. 1. CAD s/p CABG x 5 (NGUYEN-LAD, SVG-Olga Lidia, SVG-OM, SVG-LPLA, SVG-PDA) continue asa, bb, plavix echo 08/12- LVEF 50-54%, left pleural effusion intolerant of statin, will consider nonstatin med such as Repatha or Nexletol outpatient post-op per CTS 2. A-fib: Paroxysmal- rate controlled s/p PVI and ARISTEO amputation on amiodarone and BB 3. HTN BP on upward trend continue metoprolol 4. LADARIUS even fluid balance per Nephrology continue supportive care Doing good post-op For rehab History - Adult longitudinal Past medical history: Reports: Atrial fibrillation, Coronary artery disease, Dementia, Kidney disease/ stones. Past surgical history: Reports: CABG. Additional surgical history: Crevial Laminectomy amputation of left atrial appendage Family history: Reports: Hypertension. Alcohol use: Denies EtOH use Drug use: Denies recreational drugs Smoking status for patients 13 years old or older: Former Smoker Allergies: Coded Allergies: Vworpxp-YDQ-[id number] Reductase Inhibitor (Severe, UNKNOWN 08/16/22) Review of Systems Constitutional: Denies: fatigue, generalized weakness. Respiratory: Denies: JANG (dyspnea on exertion), SOB. Cardiovascular: Reports: edema. Denies: chest pain. Objective General VS/I O: Vital Signs: Date Time Temp Pulse Resp [...] scale Measurement Method PATIENT WEIGHT: Weight (lb): 221 Weight (oz): 9.03 Weight (kg): 100.500 Medications: Active Meds + DC'd Last 24 Hrs Aspirin (ASPIRIN) 81 MG DAILY PO Clopidogrel [...] Sodium (COLACE) 100 MG BID PO Ipratropium Kingston (ATROVENT) 500 MCG RTQ6H INH Metoprolol Tartrate (LOPRESSOR) 25 MG Q12HR PO Sennosides (Senna Lax 8.6 MG TABLET) 17.2 MG BEDTIME PO Amiodarone HCl (CORDARONE) 200 MG TID PO Hydralazine HCl (APRESOLINE) 10 MG Q6H PRN PRN IV Acetaminophen (TYLENOL) 650 MG Q4H PRN PRN PO Ipratropium Kingston (ATROVENT) 500 MCG RTQ2H PRN PRN INH Melatonin (Melatonin) 6 MG BEDTIME PRN PO Ondansetron HCl (ZOFRAN ODT) 4 MG TID PRN PRN SL Physical Exam General appearance: alert, awake Neck: non-tender, no JVD Cardiovascular: CV assessment: irregularly irregular, pedal edema Respiratory: decreased breath sounds, no distress Abdomen: soft, non-tender, normal bowel sounds, no distention Genitourinary: no flank pain, no urinary catheter Lower extremity: LE assessment: edema Musculoskeletal: normal inspection Neuro/GATE GUARD: alert Skin: dry Psychiatry: normal affect, normal mood Results Findings/Data: Laboratory Tests 08/17 520 Chemistry Sodium (134 - [...] 5.0 g/dL) 3.30 L Laboratory Tests 08/17 05 Hematology WBC (4.5 - 11.0 x10 3/uL) [...] % (Auto) (14.0 - 32.0 %) 14.4 Briscoe % (Auto) (4.8 - 9.0 %) 12.6 H Eos % (Auto) (0.3 - 3.7 %) 6.9 H Baso % (Auto) (0.0 - 2.0 %) 0.7 Neut # (Auto) (2.0 - 7.6 x10 3/uL) 5.59 Lymph # (Auto) (1.0 - 3.8 x10 3/uL) 1.25 Briscoe # (Auto) (0.1 - 0.8 x10 3/uL) [...] reviewed, vital signs reviewed, rhythm personally rev'd Telemetry Interpretation: atrial fibrillation with controlled rate Diagnosis, Assessment Plan Plan discussed with: patient, nurse Free Text DxA P Notes Free Text DxA P Notes: 82 YO male with MHX of Afib, HTN, HLD, CAD who is s/p 5 vessel CABG and PVI and ALAA. The patient is transferred to [facility] for inpatient rehabilitation. We are consulted for continuity of cardiac-related care. 1. CAD s/p CABG x 5 (NGUYEN-LAD, SVG-Olga Lidia, SVG-OM, SVG-LPLA, SVG-PDA) continue asa, BB, plavix echo 08/12- LVEF 50-54%, left pleural effusion intolerant of statin, will consider nonstatin med such as Repatha or Nexletol outpatient start Zetia 10 mg daily 2. A-fib: Paroxysmal - rate controlled s/p PVI and ARISTEO amputation continue amiodarone - will taper dose prior to discharge continue BB no need for AC since left atrial appendage was removed during CABG 3. HTN - normotensive continue metoprolol 25 mg BID 4. LADARIUS nephrology following at 1331 at 1808 RPT #:[id number] END OF REPORT [facility] 2022-08-17 08:15:00 [facility]) Rehab History Physical REPORT#:[id number] REPORT STATUS: Signed DATE:08/17/22 TIME: 08 PATIENT: BRENNAN AHN UNIT #: [id number] ROOM/BED: [place] [address] : 42 AGE: 82 SEX: M ATTEND: Artuhr Fuentes MD ADM AUTHOR: Arthru Fuentes MD * ALL edits or amendments must be made on the electronic/computer document * HPI HPI Chief complaint: Generalized weakness Referring physician: DR. DEE HPI: 82-year-old male with PMH of Alzheimer's dementia, CKD, HTN, atrial fibrillation , history of SVT/ablation who was transferred to [facility] after being found to have multivessel coronary artery disease. Patient initially with was at home and developed chest pains. He was brought to [facility] and underwent left heart cath which revealed [...] of function was independent. Currently patient has generalized weakness. He lives by himself in a one-step up house. He denies any shortness of breath, nausea, vomiting, fever, chills. Denies chest pain. He is complaining of some constipation. He tells me that is in the process of selling his home. Preadmission screen was completed. Patient admitted to IRF. Changes since Pre Admit Screen None Impairment group: cardiac disorders NOTE Document ONLY ONE Impairment Group Etiologic diagnosis: CAD MULTIVESSEL A FIB PAROXYSMAL History Preadmit diagnostic/labs: Date: 08/15/22 08/14/22 WBC: 10.6 9.4 HGB: 9.2 8.5 HCT: 27.6 26.1 Ca: 9.2 8.7 Na: 138 137 K+: 4.1 4.1 Glu: 109 107 M.32 2.49 BUN: 36 33 Creat: 1.9 2.0 Tot protein: 6.0 Alb: 3.40 PTT: PT: INR: PLT: 198 135 Cultures: 08/09/22 MRSA CANCELLED Imagin08/14/22 CXR IMPRESSION: Grossly stable exam. 08/13/22 MISCELLANEOUS [...] Ectatic, nonaneurysmal aortic root (37 mm) with nevi-ex-hyvayvyt calcification. 2. Remaining thoracoabdominal aorta is normal [...] may represent atelectasis and/or consolidation. Past medical history: Reports: Atrial fibrillation, Coronary artery disease, Dementia, Kidney disease/ stones. Additional surgical history: Crevial Laminectomy Family history: Reports: Hypertension. Alcohol use: Denies EtOH use Drug use: Denies recreational drugs Smoking status for patients 13 years old or older: Former Smoker Allergies: Coded Allergies: Qjuqkmb-[id number]-KxG Reductase Inhibitor (Severe, UNKNOWN 08/16/22) ROS ROS ROS comments: 14 point review of system was obtained. All systems reviewed are either negative or noncontributory or in the body of the history and physical Objective Physical Exam VS: Last Documented: Result Date Time Pulse Ox 94 08/17 1053 B/P 136/68 08/17 1053 B/P Mean 90.4 08/17 1053 O2 Delivery Room air 08/17 1053 Temp 97.9 08/17 1053 Pulse 78 08/17 1053 Resp 16 08/17 1053 PATIENT WEIGHT: Weight (lb): 221 Weight (oz): 9.03 Weight (kg): 100.500 General appearance: alert, awake, oriented, no acute distress Psych: alert, normal affect, oriented x 3 HEENT: anicteric, mucosal membranes moist, pupils reactive to light, sclera clear Neck: non-tender, supple, no JVD Cardiovascular: irregular rhythm, S1/S2, cap refill wnl, pulses intact Respiratory: diminished breath sounds, on oxygen, aerating well Abdomen: bowel sounds present, non-distended, soft, non-tender Skin: dry, normal temperature, no rash, bruising R thigh, mild L thigh, BUE, R hand Sl tender/edema, sternum incision [facility] site CDI Musculoskeletal - general: Musculoskeletal - general: OA changes, normal tone, no swelling, Moves all 4 exts AG, calves NT, no cords, Homans neg Neuro/GATE GUARD: alert, oriented X 3, CNII-XII intact, normal speech, no motor deficits, no sensory deficits Results Findings/Data: Laboratory Tests: 08/17 0521 Chemistry Sodium (134 - 147 [...] % (Auto) (14.0 - 32.0 %) 14.4 Briscoe % (Auto) (4.8 - 9.0 %) 12.6 H Eos % (Auto) (0.3 - 3.7 %) 6.9 H Baso % (Auto) (0.0 - 2.0 %) 0.7 Neut # (Auto) (2.0 - 7.6 x10 3/uL) 5.59 Lymph # (Auto) (1.0 - 3.8 x10 3/uL) 1.25 Briscoe # (Auto) (0.1 - 0.8 x10 3/uL) [...] (Man) (0.0 - 0.1 x10 3/uL) 0.00 Microbiology: 08/17 0500 NASAL: MRSA DNA Surveillance Screen - COLB 08/16 1254 NASAL: MRSA DNA Surveillance Screen - ORD Diagnosis, Assessment Plan Diagnosis, Assessment Plan Problem List/A P: 1. CAD (coronary artery disease) 2. Afib 3. HTN (hypertension) 4. S/P CABG x 5 5. Impaired functional mobility, balance, gait, and endurance Free Text A P: Assessment: Multivessel CAD 08/10: S/p CABG x5-Dr. Dee A-fib s/p a ARISTEO Endoscopic RGSV harvest 08/16: Echo-EF 50-54%, small pericardial effusion Small bilateral pleural effusions. Muscle weakness Unsteady gait Alzheimer's dementia Postoperative anemia LADARIUS on CKD HTN Impairment in self-care, ADLs and functional mobility Plan: -Comprehensive inpatient rehabilitation with physical, occupational and speech therapy 3 hours a day for 5 to 6 days per week-25/12 rehabilitation physician supervision-25/12 rehabilitation nursing care. -Case management for safe discharge planning. -Rehab MD to monitor comorbidities and functional progress. -Decubitus prevention-protective hydrating lotion-turn every 2 hours-offload -Bowel program-MiraLAX, senna, -Nutrition, monitor the patient's p.o. intake, check albumin three-point and prealbumin, dietary consult, protein supplements. -Strict fall and safety precaution -DVT prophylaxis-SCDs -GI prophylaxis on Protonix -CAD on Plavix and aspirin, intolerant to statins -Pulmonary toilet frequent I-S, nebs, wean O2 -Early mobilization-OOB to chair -Work on bed mobility, transfer training, ADLs, pre-gait and gait exercises as tolerable. -Increase endurance and strength -Pain management -Postop care as per CVS -Monitor telemetry -Cardiology on case -LADARIUS as per nephrology -Dementia/confusion-Higher level of nursing care and monitoring for safety -Appreciate consultants input -Continue current medication -Strict sternal precautions -Monitor sites of bruising and right hand pain-from previous phlebotomy sites-no signs of infection -Labs reviewed-WBC normal, hemoglobin 9.1, platelets normal, creatinine 1.9, magnesium normal -Anemia-vitamin B12 and ferrous sulfate -ELOS: 14 days -GOALS: Modified independent, learn sternal precautions -Advance therapies as tolerable PM R Please see team note. Plan and goals discussed with the patient. I agree with the teams finding ELOS: [ ] DC-home-HH DME- TT 68 min>50% with discussing about IRF ADMIT, rehab plan of care, goals, expectations, needs, and medical issues, examination. MAR and EMR reviewed. All Questions answered. Review of comorbidities: CAD, A FIB, DEMENTIA/ON ELLIQUIS, HTN, CHRONIC KIDNEY DX, POST OP ANEMIA, muscle weakness, unsteady gait, POST OP PULMONARY DYSFUNTION Compare to PAS: POST ADMISSION PHYSICIAN EVALUATION ASSESSMENT: 1. Comparison of findings with the preadmission assessment are compatible with the post admission physician evaluation. 2. Review of the patient's prior and current medical and functional conditions have been extensively reviewed and documented in this H P, and discussed with the referring physicians, patient and family. At this time, there has been no change in the patient's current medical or functional conditions and plans to go ahead with rehab are to begin today. Estimated length of stay: 14 days Orders: Procedure Date/time Status NEB TREATMENT SUBSQ 08/17 9815 Active NEB TREATMENT SUBSQ 08/16 2924 Complete NEB TREATMENT SUBSQ 08/16 2148 Active Consultants: cardiology, cardiovascular surgery, hospitalist, nephrology Plan discussed with: patient, consultants, nurse, interdisc care team Code Status/Resusc. Discussion Resuscitation discussion: Discussed with: patient Code status: full code Acute Rehab Attestation NOTE Attestation is for MD only Rehab MD attestation: Based upon my evaluation, the patient's medical management and rehabilitation needs require an inpatient stay and close physician involvement. Patient can be expected to actively participate in, and benefit from, an intensive rehab therapy program whose intensity is not provided in lower levels of care. Significant barriers that can only be addressed in an acute inpatient rehab program, including, but not limited to: See H P. Complex acute rehab needs: Custom therapy tx plan, Mgt of complex Co-morb, Med adjustment/mgmt., New medical diagnosis, Postsurgery req mgt/care, Nutritional compromise, Hospitalist consult, Complex pain management, VTE Risk at 1152 RPT #:[id number] END OF REPORT [facility] 2022-08-16 18:47:00 [facility] ([facility]) Rehab Progress Note REPORT#:[id number] REPORT STATUS: Signed DATE:08/16/22 TIME: 1846 PATIENT: BRENNAN AHN UNIT #: [id number] ROOM/BED: [place] [address] : 42 AGE: 82 SEX: M ATTEND: Salazar Dee MD ADM AUTHOR: Lavinia Jimenez NP * ALL edits or amendments must be made on the electronic/computer document * Subjective Chief complaint: Rehab [id number] seen around 8am OOB in chair Seen in CVICU Denies sob or pain Doing well. NAD Denies MORA/N/V/D/CP 14 systems reviewed and neg. except that above. Objective General VS: Vital Signs: Date Time Temp Pulse Resp B/P B/P Pulse O2 O2 Flow FiO2 Mean Ox Delivery Rate 08/16 1640 82 94 08/16 1639 97.7 85 22 162/77 105.3 91 08/16 1600 80 33 169/77 110 90 08/16 1546 98 Room air 21 08/16 1500 71 17 154/83 110 92 /15 1400 72 29 143/63 91 98 03/15 1300 71 27 133/69 91 95 /15 1201 75 33 140/58 83 88 03/15 1129 97 Room air 21 08/16 1114 70 22 133/61 88 98 03/15 1000 73 29 134/58 84 95 /15 0901 79 27 132/61 88 94 03/15 0800 97.8 80 23 161/75 108 95 /15 0754 100 Room air 21 /15 0701 73 23 172/77 111 99 /15 0601 73 33 154/69 99 98 /15 0502 68 28 164/70 100 99 /15 0405 95 Room air /15 0400 66 16 140/68 98 97 /15 0300 66 19 149/76 102 99 /15 0201 67 26 132/64 88 99 03/15 0101 65 14 105/55 77 96 03/15 0000 71 13 168/72 104 97 /14 2300 75 23 152/74 106 96 /14 2200 77 21 159/79 104 98 /14 2140 88 26 169/76 109 96 08/15 2100 78 18 98 08/16 2015 83 94 08/15 2016 94 Room air 08/16 1999 97.8 08/16 1999 80 20 128/74 95 95 08/15 1901 80 33 119/91 98 91 PATIENT WEIGHT: Weight (lb): 221 Weight (oz): 12.56 Weight (kg): 100.600 Medications: Active Meds + DC'd Last 24 Hrs Furosemide (LASIX) 40 MG Q24H PO (DCD) Furosemide (LASIX) 40 MG BID 9A 5P PO (DC) Aspirin (ASPIRIN) 81 MG DAILY PO (DCD) Budesonide (PULMICORT RESPULES) 0.5 MG RTBID INH (DCD) Formoterol Fumarate (PERFOROMIST) 20 MCG RTBID NEB (DCD) Metoprolol Tartrate (LOPRESSOR) 25 MG Q12HR PO (DCD) Ipratropium Kingston (ATROVENT) 500 MCG RTQ6H INH (DCD) Ipratropium [place] (ATROVENT) 500 MCG Q2H PRN PRN INH [...] ASDIR IV (DCD) Dextrose/Water (D5%W NON-DEHP) 250 ML Pantoprazole (PROTONIX) 40 MG DAILY@0600 PO (DCD) Docusate [...] IV (DCD) Dextrose/Water (DEXTROSE 5% WATER) 246 ML Glucagon (GLUCAGON) 1 MG ASDIR PRN IM (DCD) Insulin Human Regular (HumuLIN R) 100 UNIT ASDIR IV (DCD) Sodium Chloride (SODIUM CHLORIDE 0.9%) 99 ML Magnesium Sulfate (MAGNESIUM SULFATE 4GM/SWFI 100ML) 100 ML ASDIR PRN IV (DCD) Magnesium Sulfate (MAGNESIUM SULFATE 2GM/SWFI 50ML) 50 ML ASDIR PRN IV ( DCD) Magnesium Sulfate/Dextrose (MAGNESIUM SULFATE 1GM/D5W 100ML) 100 [...] MG Q6H PRN PRN IV (DCD) Physical Exam General appearance: obese, alert, awake, oriented Psych: alert, normal affect HEENT: anicteric, sclera clear Neck: supple, no JVD Cardiovascular: S1/S2, no murmur Respiratory: aerating well, clear bilaterally Abdomen: bowel sounds present, non-distended, soft Skin: intact, no rash Musculoskeletal - general: Musculoskeletal - general: normal muscle mass, normal tone, hips 3+, decereased shoulder AROM due to sternal precautions Neuro/GATE GUARD: alert, CNII-XII intact, normal speech, no sensory deficits Results Findings/Data: Laboratory Tests: 08/16 08/16 1435 0155 Chemistry Sodium [...] % (Auto) (14.0 - 32.0 %) 17.2 Briscoe % (Auto) (4.8 - 9.0 %) 11.1 H Eos % (Auto) (0.3 - 3.7 %) 5.2 H Baso % (Auto) (0.0 - 2.0 %) 0.6 Neut # (Auto) (2.0 - 7.6 x10 3/uL) 5.80 Lymph # (Auto) (1.0 - 3.8 x10 3/uL) 1.53 Briscoe # (Auto) (0.1 - 0.8 x10 3/uL) [...] SARS-CoV-2 Ag (Rapid) (Negative) Negative Diagnosis, Assessment Plan Free Text A P: Multivessel CAD Status post CABG x5 Muscle weakness Unsteady gait Impaired ADLs, mobility Alzheimer's dementia Postoperative anemia LADARIUS on CKD History of A-fib HTN Moderate bilateral pleural effusions Plan: Continue PT/OT Out of bed to chair Work on strength, bed mobility, transfers, gait Monitor for left knee buckling Increase endurance Fall precautions Monitor p.o. intake and nutrition Strict decubitus precautions Monitor labs closely Monitor telemetry. Atrial fibs intermittent Advance therapies as tolerated.. Excellent candidate CLOF: 100 feet x 2 min assist forward stooped posture Patient with slight confusion/dementia quired 1 rest break Criteria for acute rehab Telemetry monitoring-intermittent atrial fibs/may require frequent adjustments in meds Dementia/confusion-Higher level of nursing care and monitoring for safety LADARIUS on CKD-closer medical monitoring-acute changes could lead to arrhythmias Patient is capable and motivated of the 3-hour therapy requirement for IPR Approved by insurance for IPR-Bed availabe today-can transfer if medically cleared Total time was 35 minutes > 50% with patient performing physical examination, discussing plan of care, goals, therapies, progress, medications, labs. All questions answered Consultants: cardiology, cardiovascular surgery Rehab attestation: Face to face exam completed. Treatment plan discussed with patient. at 1849 RPT #:[id number] END OF REPORT [facility] 2022-08-16 17:15:00 [id number] [place] [address] PATIENT NAME: BRENNAN AHN ADMIT DATE: 08/09/22 ACCOUNT NO: [id number] ROOM NO: G.2202 AGE: 82 REPORT TYPE: eECHOCARDIOGRAM REPORT SEX: M ADMITTING PHYSICIAN:Salazar Dee MD ATTENDING PHYSICIAN:Salazar Dee MD *[address] [place] [address] Transthoracic Echocardiogram Patient: Brennan Ahn Study Date: 08/16/2022 BP: 118 / 77 Location: [facility] URN: [id number] : 1940 Age: 82 Height: 71 in / 180.3 cm Gender: M Weight: 221.3 lb / 100.6 kg BMI/BSA: 30.9 kg/m 2 / 2.27 m 2 *Ordering Physician: * Pamela Burnette *Interpreting Physician: * Freddy Celis MD *Cost Consultant: * Jane Byrd Indications: Rule out pericardial effusion. Study data: Transthoracic echocardiogram. Procedure: Transthoracic echocardiography was performed. Image quality was adequate. Complete 2D, complete spectral Doppler, and color Doppler. Location: CVICU. Patient status: Inpatient. Patient room number: 2202. Study status: Routine. Findings Left ventricle: The cavity size is normal. Wall thickness is normal. Systolic function is normal. The estimated ejection fraction is 50-54%. Left ventricular diastolic function parameters are indeterminate. Right ventricle: Estimated TAPSE is 1.0 cm. Systolic function is moderately reduced. Systolic pressure is within the normal range. PATIENT NAME: BRENNAN AHN Left atrium: The atrium is dilated. Right atrium: The atrium is severely dilated. Aortic valve: There is mild regurgitation. Mitral valve: The leaflets are mildly calcified. There is mild regurgitation. Tricuspid valve: Estimated right ventricular systolic pressure is 30.6 mmHg. There is mild regurgitation. Pericardium: A small pericardial effusion is identified posterior to the heart. There is a left pleural effusion. Systemic veins: Inferior vena cava: The vessel is normal in size. The respirophasic diameter changes are in the normal range (= 50%). Measurements Left ventricle Value 08/12/2022 Ref AMANDA, LAX [...] IVS, ED 0.8 cm 1.0 0.6 - 1.0 PATIENT NAME: BRENNAN AHN Right ventricle Value 08/12/2022 [...] Peak RV-RA 26 mm Hg 28 ------ john S Aortic root Value 08/12/2022 Ref Root diam, 2.81 cm ------ ED MM Conclusions Summary: 1. Left ventricle: The cavity size is normal. Wall thickness is normal. Systolic function is normal. The estimated ejection fraction is PATIENT NAME: BRENNAN AHN 50-54%. Left ventricular diastolic function parameters are indeterminate. 2. Right ventricle: Estimated TAPSE is 1.0 cm. Systolic function is moderately reduced. 3. Left atrium: The atrium is dilated. 4. Right atrium: The atrium is severely dilated. 5. Tricuspid valve: Estimated right ventricular systolic pressure is 30.6 mmHg. 6. Pericardium, extracardiac: A small pericardial effusion is identified posterior to the heart. There is a left pleural effusion. Prepared and electronically signed by Freddy Celis MD 08/16/2022 17:14 at 1715 PATIENT NAME: BRENNAN AHN [facility] 2022-08-16 16:49:00 [facility] Discharge Summary REPORT#:[id number] REPORT STATUS: Signed DATE:08/16/22 TIME: 1648 PATIENT: BRENNAN AHN UNIT #: [id number] ROOM/BED: [place] [address] : 42 AGE: 82 SEX: M ATTEND: Salazar Dee MD ADM AUTHOR: Devin Fox DO * ALL edits or amendments must be made on the electronic/computer document * PCP PCP Discharge to: home General Information Problem List/A P: 1. S/P CABG x 5 2. CAD (coronary artery disease) 3. Postoperative pulmonary dysfunction after cardiac surgery 4. HTN (hypertension) Date of admission: Observation Start Date: Date of admission: 08/09/22 Discharge date: 08/16/22 Admission diagnosis: 1. S/P CABG x 5 2. CAD (coronary artery disease) 3. Postoperative pulmonary dysfunction after cardiac surgery 4. HTN (hypertension) Discharge diagnosis: 1. S/P CABG x 5 2. CAD (coronary artery disease) 3. Postoperative pulmonary dysfunction after cardiac surgery 4. HTN (hypertension) Hospital course: 82-year-old male with past medical history of hypertension, atrial fibrillation, supraventricular tachycardia status post ablation who was admitted with reports of multivessel coronary artery disease found on a cardiac catheterization done at [facility]. Patient was transferred to [facility] for CABG. 1. Coronary artery disease -Status post CABG x5, ALAA, PVI -Continue metoprolol, Plavix, aspirin -Chest tubes in place and draining - 2. Atrial fibrillation -Continue IV amiodarone for rate control -Continue metoprolol -Monitor and review telemetry 3. Debility -.-PT/OT 4. ARF - cr 1.3-1.9-2.2-2.0 - post op, post lasix therefore likely pre-renal - baseline CKD is suspected - nephro consulted 5. anemia - acute, post op expecteed - monitor and transfuse if hg <7 6. Delirium -Likely due to sundowning -Monitor closely -Patient is neurologically intact dispo: possible INPT REHAB - discussed with Pts son in details total time spent 35mins Consultants: cardiology, cardiovascular surgery Med Rec PCP PCP: PCP: No Primary or Family Physician Med Rec Discharge meds: Stop taking the following medications: METOPROLOL TARTRATE (LOPRESSOR) 50 MG TAB 50 MILLIGRAM ORAL TWICE DAILY. hydrALAZINE (APRESOLINE) 20 MG/ML AMPUL 20 MILLIGRAM INTRAVENOUS EVERY 4 HOURS NEEDED. as needed for SBP GREATER THAN 180 Continue taking these medications: DULoxetine DR (CYMBALTA) 60 MG CAP.DR 60 MILLIGRAM ORAL BEDTIME. Start taking the following new medications: CLOPIDOGREL (PLAVIX) 75 MG TAB 75 MILLIGRAM ORAL [...] for SLEEP Qty = 30 No Refills Objective VS/I O Last Documented: Result Date Time Pulse Ox 94 08/16 1640 Pulse 82 08/16 1640 B/P 162/77 08/16 1639 B/P Mean 105.3 08/16 1639 Temp 97.7 08/16 1639 Resp 22 08/16 1639 FiO2 21 08/16 1129 O2 Delivery Room air 08/16 112 O2 Flow Rate 2 08/14 0800 24 hour I O ending at 0700: 08/16 0700 08/15 1900 Intake Total 600.00 480 Output Total 775 1225 Balance -175.00 -745 Intake, IV 100.00 Intake, Oral 500 480 Number 1 Incontinent Voids Number Voids 4 Output, Urine 775 1225 Patient 100.6 kg 100.9 kg Weight Weight Standing scale Standing scale Measurement Method PATIENT WEIGHT: Weight (lb): 221 Weight (oz): 12.56 Weight (kg): 100.600 General appearance: alert, awake, oriented Head/Eyes: EOMI Neck: non-tender, no JVD Cardiovascular: regular rate rhythm, normal heart sounds Respiratory: clear to auscultation, no distress GI: soft, non-tender Extremities: moves all, no edema-all extremities Neuro/GATE GUARD: alert, oriented X 3, NL cerebellar function Results Findings/Data: Laboratory Tests: 08/16 08/16 1435 0155 Chemistry Sodium [...] % (Auto) (14.0 - 32.0 %) 17.2 Briscoe % (Auto) (4.8 - 9.0 %) 11.1 H Eos % (Auto) (0.3 - 3.7 %) 5.2 H Baso % (Auto) (0.0 - 2.0 %) 0.6 Neut # (Auto) (2.0 - 7.6 x10 3/uL) 5.80 Lymph # (Auto) (1.0 - 3.8 x10 3/uL) 1.53 Briscoe # (Auto) (0.1 - 0.8 x10 3/uL) [...] Serology SARS-CoV-2 Ag (Rapid) (Negative) Negative Radiology data: Recent Impressions: RADIOLOGY - XR CHEST 1 V 08/16 0855 Report Impression - Status: SIGNED Entered: 08/16/2022 1035 IMPRESSION: Unchanged small left pleural effusion with left basilar airspace disease. Impression By: NayelyAMLuis Eduardo - Sha Gordon M.D. ULTRASOUND - DUP VEIN ANCA 08/16 1409 Report Impression - Status: SIGNED Entered: 08/16/2022 1502 IMPRESSION: No evidence of deep vein thrombosis. Impression By: NayelyTDEllen Loredo M.D. Discharge Instructions PCP PCP: PCP: No Primary or Family Physician )( Discharge to: Inpatient Rehab Facility Discharge Instructions Additional Discharge Routines: PCP Follow-Up, Bridge Manager Follow-Up )( Diet: Cardiac )( Activity: As Tolerated Prescriptions: none Discharge management: greater than 30 mins Time spent: Time spent on patient care (minutes): 45 Follow-up Appointments PCP follow up: PCP: No Primary or Family Physician PCP follow up timeframe: In 2-3 weeks Attending Physician: Attending Physician: Devin Fox DO Consulting provider 1: Provider 1: Salazar Dee MD Specialty: Thoracic Surgery Consult follow up timeframe: In 3-4 weeks at 2157 RPT #:[id number] END OF REPORT [facility] 2022-08-16 11:36:00 [facility] Nephrology Progress Note REPORT#:[id number] REPORT STATUS: Signed DATE:08/16/22 TIME: 1136 PATIENT: BRENNAN AHN UNIT #: [id number] ROOM/BED: [place] [address] : 42 AGE: 82 SEX: M ATTEND: Salazar Dee MD ADM AUTHOR: Maura Terrazas MD * ALL edits or amendments must be made on the electronic/computer document * Subjective Chief complaint: chest pain HPI: 82-year-old male known to have hypertension, atrial fibrillation, supraventricular tachycardia with requiring ablation presenting with multivessel cardiovascular disease and he underwent CABG 07/13/2022. He was extubated postoperatively and his blood pressures were stable when he was seen. He endorsed having kidney issues in the past and seeing a progress man at [place] but his kidney function had been stable and he denied any urinary complaints, chronic use of NSAIDs. He also denied any nausea, itching, cramping, change of taste, orthopnea. 08/16 Patient looking stable hemodynamically , he is complaining of dizziness, lasix PO reduced to QD, plan to increase when feeling less dizzy. Objective General VS/I O: Vital Signs: Date Time Temp Pulse Resp B/P B/P Pulse O2 O2 Flow FiO2 Mean Ox Delivery Rate 08/16 1129 97 Room air 21 08/16 1114 70 22 133/61 88 98 / 1000 73 29 134/58 84 95 08/16 0901 79 27 132/61 88 94 08/16 0800 36.6 80 23 161/75 108 95 08/16 0754 100 Room air 21 08/16 0701 73 23 172/77 111 99 08/16 0601 73 33 154/69 99 98 08/16 0502 68 28 164/70 100 99 08/16 0405 95 Room air 08/16 0400 66 16 140/68 98 97 08/16 0300 66 19 149/76 102 99 08/16 0201 67 26 132/64 88 99 08/16 0101 65 14 105/55 77 96 03/15 0000 71 13 168/72 104 97 14 2300 75 23 152/74 106 96 14 2200 77 21 159/79 104 98 /14 2140 88 26 169/76 109 96 /14 2100 78 18 98 08/15 2016 83 94 08/15 2016 94 Room air 08/16 1999 36.6 031999 80 20 128/74 95 95 14 1901 80 33 119/91 98 91 /14 1801 80 36 117/58 83 89 03/14 1701 82 34 142/67 97 85 03/14 1600 36.6 03/14 1600 79 32 139/65 94 99 03/14 1500 68 141/67 96 98 /14 1441 74 147/63 91 97 /14 1437 77 92/58 70 95 /14 1400 65 130/69 93 97 /14 1300 67 121/66 83 96 03/14 1200 [...] scale Measurement Method PATIENT WEIGHT: Weight (lb): 221 Weight (oz): 12.56 Weight (kg): 100.600 Physical Exam General appearance: alert, awake, oriented Head/eyes: atraumatic, clear cornea ENT: moist mucous membranes, normal nose Neck: no JVD, no lymphadenopathy Cardiovascular: normal heart sounds, regular rate and rhythm Respiratory: aerating well, clear to auscultation Abdomen: non-tender, soft Genitourinary: no bladder distention, no flank pain Extremities: no edema, no gangrene, no swelling Treatment Prophylaxis Treatment Prophylaxis Drain(s)/tube(s): Drain(s)/tube(s): chest, urinary catheter Diagnosis, Assessment Plan Free Text A P: 82-year-old male known to have hypertension, atrial fibrillation, supraventricular tachycardia with requiring ablation presenting with multivessel cardiovascular disease and he underwent CABG 07/13/2022. He was extubated postoperatively and his blood pressures were stable when he was seen. He endorsed having kidney issues in the past and seeing a progress man at [place] but his kidney function had been stable and he denied any urinary complaints, chronic use of NSAIDs. He also denied any nausea, itching, cramping , change of taste, orthopnea. Nephrology following for: [...] small boluses of IV fluid if needed. Renal function improving with improving blood presures. 2. Volume status: He appears hypovolemic even though his weight is elevated from admitting weight. Plan is to monitor input and output and continue to encourage oral intake and IV fluid if needed. Today his orthostatic blood pressures were positive so albumin one time given. 3. Electrolytes: His electrolytes appear to be in normal range plan is to monitor and replace as needed 4. Hypertension: His blood pressures are on the low side therefore I would treat only if his SBP goes above 160. Improved so PRN dose reccommended if SBP>160. 08/14 1. Acute kidney injury: Most likely prerenal as he recently had surgery. His blood pressures are stable but he appears dry therefore I would encourage oral intake and small boluses of IV fluid if needed. Renal function improving with improving blood presures. 2. Hypovolemia/orthostasis: Improving and now plan is to give low dose PO lasix only if oxygenation worsens as he has risk of hypervolemia but still improving intravascular volume postoperatively. 3. Electrolytes: His electrolytes appear to be in normal range plan is to monitor and replace as needed 4. Hypertension: His blood pressures have been on the low side therefore I would treat only if his SBP goes above 160. Improved so PRN dose reccommended if SBP>160. 08/16 1. Acute kidney injury: Most likely prerenal as he recently had surgery. Resolving with better hemodynamics. 2. Hypervolemia: patient in A-fib and volume overload so would reccommend lasix PO and IV as tolerated. 3. Electrolytes: His electrolytes appear to be in normal range plan is to monitor and replace as needed 4. Hypertension: Worsening with volume overload so plan to start lasix as above Consultants: cardiology, cardiovascular surgery at 1145 RPT #:[id number] END OF REPORT [facility] 2022-08-16 10:42:00 [facility] ([facility]) Cardiology Progress Note REPORT#:[id number] REPORT STATUS: Signed DATE:08/16/22 TIME: 1041 PATIENT: BRENNAN AHN UNIT #: [id number] ROOM/BED: [place] [address] : 42 AGE: 82 SEX: M ATTEND: Salazar Dee MD ADM AUTHOR: Catrina Shetty AGACNP * ALL edits or amendments must be made on the electronic/computer document * Subjective Patient reports: No: complaints. Objective General VS/I O: 24 hour I O ending at 0700: [...] 08/16 0601 73 33 154/69 99 98 15 0502 68 28 164/70 100 99 15 0405 95 Room air 08/16 0400 66 16 140/68 98 97 /15 0300 66 19 149/76 102 99 /15 0201 67 26 132/64 88 99 03/15 0101 65 14 105/55 77 96 /15 0000 71 13 168/72 104 97 03/14 2300 75 23 152/74 106 96 /14 2200 77 21 159/79 104 98 /14 2140 88 26 169/76 109 96 /14 2100 78 18 98 08/15 2016 83 94 08/15 2016 94 Room air 08/15 2000 36.6 03/14 2000 80 20 128/74 95 95 03/14 1901 80 33 119/91 98 91 03/14 1801 80 36 117/58 83 89 03/14 [...] 139/66 95 97 PATIENT WEIGHT: Weight (lb): 221 Weight (oz): 12.56 Weight (kg): 100.600 Medications: Active Meds + DC'd Last 24 Hrs Furosemide (LASIX) 40 MG BID 9A 5P PO Furosemide (LASIX 20MG INJ) 20 MG ONCE ONE IV (DC) Aspirin (ASPIRIN) 81 MG DAILY PO Budesonide (PULMICORT RESPULES) 0.5 MG RTBID INH Formoterol Fumarate (PERFOROMIST) 20 MCG RTBID NEB Metoprolol Tartrate (LOPRESSOR) 25 MG Q12HR PO Ipratropium [place] (ATROVENT) 500 MCG RTQ6H INH Ipratropium [place] (ATROVENT) 500 MCG Q2H PRN PRN INH [...] ASDIR IV (CKD) Dextrose/Water (D5%W NON-DEHP) 250 ML Pantoprazole (PROTONIX) 40 MG DAILY@0600 PO Docusate [...] ASDIR IV Dextrose/Water (DEXTROSE 5% WATER) 246 ML Glucagon (GLUCAGON) 1 MG ASDIR PRN IM Insulin Human Regular (HumuLIN R) 100 UNIT ASDIR IV (CKD) Sodium Chloride (SODIUM CHLORIDE 0.9%) 99 ML Magnesium Sulfate (MAGNESIUM SULFATE 4GM/SWFI 100ML) 100 [...] 10 MG Q6H PRN PRN IV Physical Exam General appearance: alert, awake, oriented Head/Eyes: atraumatic, PERRL Neck: non-tender, no JVD Cardiovascular: CV assessment: irregularly irregular Respiratory: decreased breath sounds, on oxygen, no distress Abdomen: soft, non-tender, normal bowel sounds, no distention Genitourinary: no flank pain, no urinary catheter Lower extremity: LE assessment: edema, normal capillary refill, normal temperature Musculoskeletal: normal inspection Neuro/GATE GUARD: alert, oriented X 3 Skin: poor skin turgor, bruise/ecchymosis Right forearm Psychiatry: normal affect, normal mood Results Findings/Data: Laboratory Tests 08/16 0155 Chemistry Sodium (134 - 147 mEq/L) [...] % (Auto) (14.0 - 32.0 %) 17.2 Briscoe % (Auto) (4.8 - 9.0 %) 11.1 H Eos % (Auto) (0.3 - 3.7 %) 5.2 H Baso % (Auto) (0.0 - 2.0 %) 0.6 Neut # (Auto) (2.0 - 7.6 x10 3/uL) 5.80 Lymph # (Auto) (1.0 - 3.8 x10 3/uL) 1.53 Briscoe # (Auto) (0.1 - 0.8 x10 3/uL) [...] 0.1 x10 3/uL) 0.00 Laboratory Tests 08/16 154 Chemistry Magnesium (1.80 - 2.40 mg/dL) 2.40 Radiology data: Recent Impressions: ULTRASOUND - US SOFT TISSUE TORSO 08/15 1314 Report Impression - Status: SIGNED Entered: 08/15/2022 1351 IMPRESSION: Small bilateral pleural effusions. Impression By: [email or web address] - Alfreda Joseph M.D. RADIOLOGY - XR CHEST 1 V 08/16 0655 Report Impression - Status: SIGNED Entered: 08/16/2022 1035 IMPRESSION: Unchanged small left pleural effusion with left basilar airspace disease. Impression By: [email or web address] - Sha Gordon M.D. Diagnosis, Assessment Plan Free Text DxA P Notes Free Text DxA P Notes: 1. CAD s/p CABG x 5 (NGUYEN-LAD, SVG-Olga Lidia, SVG-OM, SVG-LPLA, SVG-PDA) continue asa, bb, plavix echo 08/12- LVEF 50-54%, left pleural effusion intolerant of statin, will consider nonstatin med such as Repatha or Nexletol outpatient post-op per CTS 2. A-fib: Paroxysmal- rate controlled s/p PVI and ARISTEO amputation on amiodarone and BB 3. HTN BP on upward trend continue metoprolol 4. LADARIUS even fluid balance per Nephrology continue supportive care Doing good post-op For rehab at 1012 at 1807 RPT #:[id number] END OF REPORT [facility] 2022-08-16 09:06:00 [facility] ([facility]) Rehab Preadmission Screen REPORT#: REPORT STATUS: DATE:08/16/22 TIME: 905 PATIENT: BRENNAN AHN UNIT #: ROOM: BED: : 42 AGE: 82 SEX: M ATTEND: Arthur Fuentes MD PROJECTED ADM AUTHOR: Arthur Fuentes MD REP SRV REP SRV TM: 0906 * ALL edits or amendments must be made on the electronic/computer document * IRF Preadmission Screen Information From CRS PAS CRS PAS documentation: The data set between the solid lines has been imported from CRS PAS documentation. PREADMISSION INFORMATION: DEMOGRAPHICS: Assessment date: 08/15/22 Assessment time: 604 Patient has an Advanced Directive: No Content of advance directive/living will/plan of care: Copy of advance directive on chart: Referring physician: DR. DEE Primary care provider: NONE LISTED Consulting physician(s): DR. FUENTES REHAB DR. DEE ATTENDING DR. TOBIAS MEDICAL DR. TERRAZAS MEDICAL DR. GUARDADO MEDICAL MEDICAL DR. BROWN MEDICAL DR. NANCE ( [place]) Referral contact name: ANDREA AL Referral contact number: [phone] Referring setting: Acute hospital Room number: 2202 IMPAIRMENT GROUP: Impairment group: Cardiac disorders Etiologic diagnosis: CAD MULTIVESSEL A FIB PAROXYSMAL REVIEW OF MED CONDITIONS: Date of onset: 08/09/22 Current surgery date and type: WEDGE BIOSPY OF HEART 08/10 CABG X 5 08/10/22 Active comorbid conditions: CAD, A FIB, DEMENTIA/ON ELLIQUIS, HTN, CHRONIC KIDNEY DX, POST OP ANEMIA, muscle weakness, unsteady gait, POST OP PULMONARY DYSFUNTION Past medical and surgical history: Past medical history: Reports: Atrial fibrillation, Coronary artery disease, Dementia, Kidney disease/stones. Additional surgical history: Crevial Laminectomy DEMENTIA SVT ABLATION 20 YEARS AGO Had major surgery within 100 days of admission: Yes Risk for medical/clinical complications: Anemia, Arrhythmia, Aspiration, BP fluctuation, Blood sugar fluctuation, Cardiac instability, Constipation, DVT, Depression, Electrolyte imbalance, Hypoxia, Incisional dehiscence, Infection, Injury d/t falls, Nutritional compromise, Pain, Renal insuff/failure, Skin breakdown, Respiratory insufficiency, Urinary retention Acute hospital stay summary: 82-year-old male with PMH of Alzheimer's dementia, CKD, HTN, atrial fibrillation, history of SVT/ablation who was transferred to [facility] after being found to have multivessel coronary artery disease. Patient initially with was at home and developed chest pains. He was brought to [facility] and underwent left heart cath which revealed [...] chauhan in 3 hr/day inpt rehab to d/ c home safely. Daughter states pt's prior level of function was independent. PREADMIT VITALS: Date/Time 08/14/22 1801 08/14/22 1700 Temp F Temp C 37.2 Pulse 90 104 RR 30 41 BP 158/69 157/82 SPO2% 96 93 Ht ft 5 Ht in 11 Wt lbs 225.000 BMI SUPPORTING DIAGNOSTICS/LABS/RADIOLOGY/CARD IOLOGY: Date: 08/15/22 08/14/22 WBC: 10.6 9.4 HGB: 9.2 8.5 HCT: 27.6 26.1 Ca: 9.2 8.7 Na: 138 137 K+: 4.1 4.1 Glu: 109 107 M.32 2.49 BUN: 36 33 Creat: 1.9 2.0 Tot protein: 6.0 Alb: 3.40 PTT: PT: INR: PLT: 198 135 Additional labs: Cultures: 08/09/22 MRSA CANCELLED Imagin08/14/22 CXR IMPRESSION: Grossly stable exam. 08/13/22 MISCELLANEOUS [...] Ectatic, nonaneurysmal aortic root (37 mm) with [id number] calcification. 2. Remaining thoracoabdominal aorta is normal [...] diagnostics: RESPIRATORY STATUS: Respiratory treatments: Nebulizer, Incentive spirometer O2 liters per minute: Respiratory status: ROOM AIR BIPAP/CPAP NEUROLOGIC STATUS: Neurologic status: Alert, Oriented to person Patient's mood and behavior: Appropriate Hand dominance: Right BOWEL/BLADDER: Continent of bladder for developmental age: Yes Number of bladder accidents in last 48 hours: Catheter type: Insertion date: Bladder aids: Bladder comment: Continent of bowel for developmental age: Yes Number of bowel accidents in last 48 hours: Date of last BM: 08/15/22 Colostomy: Ileostomy: Bowel aids: DULCOLAX SUPP COLACE Bowel comment: SKIN: Skin alteration: Present/Exists SKIN ALTERATION 1: Type: Surgical wound Location: Chest midline Stage: Description: Skin piercings: None - - SKIN ALTERATION - - Skin alteration/Procedure site: Present/Exists Skin alteration: - - Bruise Circumferential Arm right - - Instance list status: Active Skin alteration details: PURPLE, DUSKY Wound exudate amount/type: None Dressing/reinforcement type: RETAIL CLIENT SOLUTIONS ANALYST Document advanced wound measurements: No --- - - Procedural site Anterior Chest midline - - Instance list status: Active Skin alteration details: DRESSING CDI Harley/sutures: Skin adhesive Dressing/reinforcement type: Fiber/silver Document advanced wound measurements: No - - Procedural site Anterior Leg right - - Instance list status: Active Wound surrounding tissue appearance: Edges approximated Wound exudate amount/type: None Harley/sutures: Skin adhesive Dressing/reinforcement type: RETAIL CLIENT SOLUTIONS ANALYST Document advanced wound measurements: No <End> Document skin test monitor: No - - VASCULAR - - COPIED FROM NURSE ASSESSMENT SKIN ALTERATION 2: Type: Location: Stage: Description: SKIN ALTERATION 3: Type: Location: Stage: Description: SKIN ALTERATION 4: Type: Location: Stage: Description: EATING/NUTRITIONAL: Nutritional intake: DYS 5=MINCED MOIST, EXTRA GRAVIES/SAUCES Eating compensatory strategies: Medication administration: Topicals, Subcutaneous, Medications whole, IV REHAB NEEDS: Special rehabilitation needs: IV/PICC/CVC, Respiratory therapy Special rehabilitation precautions: Sternal, Safety/fall, Cardiac, Aspiration, Diet Rehabilitation precaution detail: LEG INCISION STERNAL CARDIAC 02 [...] Partial/moderate asst Independent Locomotion prior device use: SUZANNE caro Description of prior level of locomotion: HAS WALKER BUT DID NOT USE Locomotion current device: RW/FWW Locomotion current distance traveled without a rest break: 100 FT X 2 Description of current level of locomotion: FORWARD STOOPED POSTURE GALINA WIDE W/C TO FOLLOW Description of expected level of locomotion: MOD I WITH RW OR CANE Language and Cognition: SLIGHT CONFUSION ALERT TO PERSON Add'l functional comment: SUP/SIT MIN A SIT/STAND MOD A ROLLING MIN A SCOOTING MIN A Prior device use: SUZANNE caro Prior device use additional information: HAS WALKER BUT DID NOT USE PRE-HOSPITAL: Pre-hospital services utilized: None Occupation/Profession: Retired Education history: Return to work/school plan: Marital status: Hobbies/leisure activities: Prior living situation: Home Living with: Alone Living with comment: ALONE ANTICIPATED DC PLAN/POST IRF: Primary support contact: [facility] Relationship to patient: SON Phone number 1: [phone] Phone number 2: Caregiver availability: Caregiver can provide: Patient/caregiver goals/preferences: Expected discharge destination: Home Expected discharge physical layout: One story Number of external stairs: Number of internal stairs: Railing details: Grab bars location: Barriers to discharge: Endurance, Cognition Options discussed with patient: Yes Options discussed with caregiver: Yes Patient agrees with program requirements: Yes ACTIVITY TOLERANCE: Current treatment interventions: Occupational therapy, Physical therapy, Respiratory therapy Patient able to tolerate 3 hours of therapy a day: Yes Patient able to tolerate 15 hours of therapy a week: Altered therapy schedule comment: ACUTE INPATIENT REHAB PLAN: Estimated length of stay in days: 14 Anticipated services in acute inpatient rehab: Rehab nursing 25/12, remote sensing program manager, general foundry worker, Occupational therapy, Physical therapy, Dietitian, Respiratory therapy Acute hospital documents reviewed prior to admission decision: Acute History/ Physical, Consult notes, Operative reports, Progress notes, Lab/diagnostics, Therapy notes, Vital signs, Other ancillary notes CRS ELECTRONIC SIGNATURE: CRS #1 electronic signature: DESMOND HILARIO credentials: BRIDGER Date: 08/15/22 Time: 075 CRS #2 electronic signature: CRS credentials: Date: Time: CRS #3 electronic signature: CRS credentials: Date: Time: Provider Pre-Admit Summary Acute IP rehab admit: criteria met MD determination Based upon my evaluation and review of the supporting assessment documentation and consultation with the preadmission brake mechanic, I have determined, prior to admitting this [...] inpatient rehab program, including, but not limited to: Date of onset: 08/09/22 Current surgery date and type: WEDGE BIOSPY OF HEART 08/10 CABG X 5 08/10/22 Active comorbid conditions: CAD, A FIB, DEMENTIA/ON ELLIQUIS, HTN, CHRONIC KIDNEY DX, POST OP ANEMIA, muscle weakness, unsteady gait, POST OP PULMONARY DYSFUNTION Past medical and surgical history: Past medical history: Reports: Atrial fibrillation, Coronary artery disease, Dementia, Kidney disease/stones. Additional surgical history: Crevial Laminectomy DEMENTIA SVT ABLATION 20 YEARS AGO Had major surgery within 100 days of admission: Yes Risk for medical/clinical complications: Anemia, Arrhythmia, Aspiration, BP [...] Hospitalist consult, Complex pain management, VTE Risk Acute hospital stay: [facility] care w/Acute , IRF consult on Acute care at 0914 RPT #:[id number] END OF REPORT [facility] 2022-08-16 08:46:00 [facility] Cardiothoracic Surgery Prog REPORT#:[id number] REPORT STATUS: Signed DATE:08/16/22 TIME: 08 PATIENT: BRENNAN AHN UNIT #: [id number] ROOM/BED: G.2202-1 : 42 AGE: 82 SEX: M ATTEND: Salazar Dee MD ADM AUTHOR: Pamela Burnette * ALL edits or amendments must be made on the electronic/computer document * General Post-op: day 5 Status post: 08/10/22 CABG x 5 (NGUYEN-LAD, SVG-Olga Lidia, SVG-OM, SVG-LPLA, SVG-PDA) XIN STRINGER (RGSV) Subjective Chief complaint: Follow-up CABG Review of Systems Constitutional: Denies: fatigue, fever, generalized weakness, malaise. Skin: Denies: itching. Allergy/Immun: Denies: anaphylaxis, hives, itching. Eyes: Denies: itching, diplopia, eye pain. ENT: Denies: sore throat. Respiratory: Denies: JANG (dyspnea on exertion), pneumonia, SOB. Cardiovascular: Denies: chest pain, palpitations. GI: Denies: abdominal pain, GERD, nausea, vomiting. Musculoskeletal: Denies: extremity pain, extremity swelling, joint pain. Heme: Denies: bleeding, bruising. Neuro: Denies: dizziness, headache, lightheaded, syncope. All systems rev neg: except as marked Objective General VS/I O Last Documented: Result Date Time Pulse Ox 98 08/16 0601 B/P 154/69 08/16 0601 B/P Mean 99 08/16 0601 Pulse 73 08/16 0601 Resp 33 08/16 0601 O2 Delivery Room air 08/16 0405 Temp [...] scale Measurement Method PATIENT WEIGHT: Weight (lb): 221 Weight (oz): 12.56 Weight (kg): 100.600 Physical Exam General appearance: alert, awake, oriented Wound/incision: Location: sternal Site condition: dressing clean dry, dressing intact HEENT: anicteric, mucosal membranes moist Neck: full range of motion, non-tender Cardiovascular: BP/pulses equal bilat., regular rate rhythm Respiratory: aerating well, symmetric expansion, no distress Abdomen: soft, non-tender, no distention Genitourinary: no longo Extremities: dry, moves all Musculoskeletal: full range of motion Neuro/GATE GUARD: alert, oriented X 3 Skin: dry, intact Psychiatry: anxious Treatment Prophylaxis Treatment Prophylaxis Oxygen: nasal cannula Lines: arterial, CVC, peripheral Drain(s)/tube(s): Drain(s)/tube(s): chest, urinary catheter Diagnosis, Assessment Plan Hospital course to date: 82 year old with PMH of hypertension, atrial fibrillation, On Eliquis, Hx of SVT ablation 20 years ago transferred to [facility] with new findings of multi-vessel CAD. He reports he was woken from [facility] on Sunday AM with COmplaints of chest pains. EMS aas called and patient was taken to [facility]. He underwent LHC and found to have multi-vessel CAD by Dr Sanchez. Patient was transferred to [facility] for CABG. Patient lives independently. Daughter is at bedside. Patient reports last dose of Elliquis was Sunday AM. Echo was done at [facility] showing EF 55%, Mild MR, Mild AI, mild LVH. According to his records, he has a hx of Chronic kidney disease with baseline Creatine reportedly 1.5. He does report he has seen a renal MD in the past. Assessment/ Plan 1) CAD, Mutli-vessel 2) hypertension Continue BBLKR Add Norvasc 5 mg 3) Atrial fibrillation. Last dose of Eliquis Sunday AM Obtain EKG 4) BPH Continue flomax Workup for CABG underway. Patient was seen and examined by Dr Dee. Coronary artery bypass surgery was discussed with the patient. The risk of the operation, including the STS score, cristian of blleding, infection, heart attack, stroke, Tracheostomy etc discussed with the patient. CT chest, carotid US, Vein mapping ordered. 08/11/22 POD 1 s/p CABG x 5 (NGUYEN-LAD, SVG-Olga Lidia, SVG-OM, SVG-LPLA, SVG-PDA), PVI, ALAA, EVH (RGSV) Patient hemodynamically stable this morning, having episodes of vagal response and BP drops 20 points, SR and sinus arrythmnia noted on nuclear monitoring technician, V epicardial wires on backup rate of 50 Amiodarone bolus and drip Keep MS chest tube and monitor outputs, DC LP chest tube after ambulation Minimal oxygen requirements on 2l nasal cannula, encourage deep breathing and I- S use CXR and labs reviewed Pain management Glycemic control on insulin drip Cardiac diet, nutritional supplements Bowel regimen, + gas Strict I Os, daily weights, albmuin x 1 given for decreased UOP- monitor hourly SCDs for DVT and PPI for GI prophylaxis PT/OT Monitor patient closely in CVICU, continue supportive care Patient seen with Dr. Dee, plan of care discussed with ICU team. 08/12 Alert and oriented, up in the chair Remains on amiodarone drip for A-fib Wean dopamine off Chest x-ray reviewed. Breathing comfortably on room air Creatinine increased to 1.9, urine output 1.5 L last night after the boluses of Lasix Repeat renal panel today show creatinine 2.2. Nephrology consulted, hold off on additional Lasix Replace electrolytes Encourage I-S and mobilization Glycemic controlled Keep in CVICU for close monitoring Patient seen and plan reviewed with Dr Piper, Dr Kirkpatrick, MCKAYLA and multidisciplinary team 08/13 Intermittently confused. Continue delirium precautions Minimal O2 requirements, wean O2 as tolerated Allow for permissive hypertension as urine output improved with higher blood pressure Monitor renal function Encourage p.o. intake, bowel regimen Remains in A-fib, heart rate fairly controlled. Amiodarone drip at 0.5 Discontinue mediastinal chest tube Glycemic control Keep in CVICU for close monitoring. Patient seen and plan reviewed with MCKAYLA Armenta multidisciplinary team Family updated at the bedside 08/14 Patient is alert and oriented, delirium precautions O2 requirements, encourage I-S Permissive hypertension for better renal perfusion Creatinine trending down, good urine output. Hold Lasix for now Encourage p.o. intake, bowel regimen Electrolyte replacement as needed Keep in CVICU today Plan for rehab. Awaiting insurance approval Patient was seen and plan reviewed with MCKAYLA Rojo and multidisciplinary team 08/15 No major events overnight Resp status stable on RA. Encourage IS HD stable. Remains in A fib, HR controlled Continue PO amio, BB increased to 25 mg BID Renal function improved, good UOP Will DC pacing wires tomorrow PT/OT Plan for rehab. Awaiting insurance approval Patient was seen and plan reviewed with MCKAYLA Rojo and multidisciplinary team 08/16 Creatine 1.9--> 2.0- Followed by Renal. appreciate input. DE-LINED. Longo out Ambulating. UO: PO lasix today. Cardiac: Atrial fib- rate controlled. On po amio- Pacing wires removed- Echo ordered. DVT studies orderd. Respiratory: On room air. Small left pleural effsuion. GI: + BM : Voiding well. Renal following Dispo: Rehab when bed available. Consultants: cardiology, cardiovascular surgery at 1452 RPT #:[id number] END OF REPORT [facility] 2022-08-15 15:43:00 [facility] ([facility]) Internal Medicine Prog. Note REPORT#:[id number] REPORT STATUS: Signed DATE:08/15/22 TIME: 154 PATIENT: BRENNAN AHN UNIT #: [id number] ROOM/BED: [place] [id number] : 42 AGE: 82 SEX: M ATTEND: Salazar Dee MD ADM AUTHOR: Devin Fox DO * ALL edits or amendments must be made on the electronic/computer document * Subjective Chief complaint: pt feels tired. Review of Systems All systems rev neg: except as marked Objective General VS/I O: Vital Signs Date Temp Pulse Resp B/P B/P [...] Urine 700 325 PATIENT WEIGHT: Weight (lb): 222 Weight (oz): 7.14 Weight (kg): 100.900 Medications: Active Meds + DC'd Last 24 Hrs Furosemide (LASIX) 40 MG BID 9A 5P PO Furosemide (LASIX 20MG INJ) 20 MG ONCE ONE IV (DC) Amiodarone HCl (NEXTERONE 150MG/D5W 100ML) 100 ML STAT STA IV (DC) Aspirin (ASPIRIN) 81 MG DAILY PO Budesonide (PULMICORT RESPULES) 0.5 MG RTBID INH Formoterol Fumarate (PERFOROMIST) 20 MCG RTBID NEB Metoprolol Tartrate (LOPRESSOR) 25 MG Q12HR PO Ipratropium [place] (ATROVENT) 500 MCG RTQ6H INH Ipratropium [place] (ATROVENT) 500 MCG Q2H PRN PRN INH [...] ASDIR IV (CKD) Dextrose/Water (D5%W NON-DEHP) 250 ML Pantoprazole (PROTONIX) 40 MG DAILY@0600 PO Docusate [...] ASDIR IV Dextrose/Water (DEXTROSE 5% WATER) 246 ML Glucagon (GLUCAGON) 1 MG ASDIR PRN IM Insulin Human Regular (HumuLIN R) 100 UNIT ASDIR IV (CKD) Sodium Chloride (SODIUM CHLORIDE 0.9%) 99 ML Magnesium Sulfate (MAGNESIUM SULFATE 4GM/SWFI 100ML) 100 [...] 10 MG Q6H PRN PRN IV Physical Exam General appearance: alert, awake, oriented Head/Eyes: EOMI, PERRLA Neck: non-tender, no JVD Cardiovascular: irregular rhythm, normal heart sounds Respiratory: aerating well, clear to auscultation Abdomen: non-tender, soft Extremities: Extremities: edema, moves all Neuro/GATE GUARD: alert, oriented x 3, CNII-XII intact Skin: ecchymosis (upper and lower extremities) Results Findings/Data: Laboratory Tests 08/15/22154: [Embedded Image Not Available] Laboratory Tests 08/15 154 Chemistry Sodium (134 - [...] (Auto) (14.0 - 32.0 %) 13.1 L Briscoe % (Auto) (4.8 - 9.0 %) 11.7 H Eos % (Auto) (0.3 - 3.7 %) 2.4 Baso % (Auto) (0.0 - 2.0 %) 0.5 Neut # (Auto) (2.0 - 7.6 x10 3/uL) 7.61 H Lymph # (Auto) (1.0 - 3.8 x10 3/uL) 1.39 Briscoe # (Auto) (0.1 - 0.8 x10 3/uL) [...] (0.0 - 0.1 x10 3/uL) 0.00 Radiology data: Recent Impressions: RADIOLOGY - XR CHEST 1 V 08/15 0500 Report Impression - Status: SIGNED Entered: 08/15/2022 0846 IMPRESSION: Cardiomegaly with minimal central venous congestion. Impression By: [email or web address] - Jaylyn Ledesma D.O. ULTRASOUND - US SOFT TISSUE TORSO 08/15 1314 Report Impression - Status: SIGNED Entered: 08/15/2022 1351 IMPRESSION: Small bilateral pleural effusions. Impression By: [email or web address] - Alfreda Joseph M.D. Treatment Prophylaxis Treatment Prophylaxis Drain(s)/tube(s): Drain(s)/tube(s): chest, urinary catheter Diagnosis, Assessment Plan Hospital course to date: 82-year-old male with past medical history of hypertension, atrial fibrillation, supraventricular tachycardia status post ablation who was admitted with reports of multivessel coronary artery disease found on a cardiac catheterization done at [facility]. Patient was transferred to [facility] for CABG. 1. Coronary artery disease -Status post CABG x5, ALAA, PVI -Continue metoprolol, Plavix, aspirin -Chest tubes in place and draining - 2. Atrial fibrillation -Continue IV amiodarone for rate control -Continue metoprolol -Monitor and review telemetry 3. Debility -.-PT/OT 4. ARF - cr 1.3-1.9-2.2-2.0 - post op, post lasix therefore likely pre-renal - baseline CKD is suspected - nephro consulted 5. anemia - acute, post op expecteed - monitor and transfuse if hg <7 6. Delirium -Likely due to sundowning -Monitor closely -Patient is neurologically intact dispo: possible INPT REHAB - discussed with Pts son in details total time spent 35mins Problem List/A P: 1. S/P CABG x 5 2. CAD (coronary artery disease) 3. Postoperative pulmonary dysfunction after cardiac surgery 4. HTN (hypertension) Consultants: cardiology, cardiovascular surgery at 2157 RPT #:[id number] END OF REPORT [facility] 2022-08-15 15:41:00 [facility] Internal Medicine Prog. Note REPORT#:[id number] REPORT STATUS: Signed DATE:08/15/22 TIME: 1541 PATIENT: BRENNAN AHN UNIT #: [id number] ROOM/BED: [place] [id number] : 42 AGE: 82 SEX: M ATTEND: Salazar Dee MD ADM AUTHOR: Devin Fox DO * ALL edits or amendments must be made on the electronic/computer document * Subjective Chief complaint: pt feels tired. Comments: late entry progress note 08/14 Review of Systems All systems rev neg: except as marked Objective General VS/I O: Vital Signs Date Temp Pulse Resp B/P B/P [...] Urine 700 325 PATIENT WEIGHT: Weight (lb): 222 Weight (oz): 7.14 Weight (kg): 100.900 Medications: Active Meds + DC'd Last 24 Hrs Furosemide (LASIX) 40 MG BID 9A 5P PO Furosemide (LASIX 20MG INJ) 20 MG ONCE ONE IV (DC) Amiodarone HCl (NEXTERONE 150MG/D5W 100ML) 100 ML STAT STA IV (DC) Aspirin (ASPIRIN) 81 MG DAILY PO Budesonide (PULMICORT RESPULES) 0.5 MG RTBID INH Formoterol Fumarate (PERFOROMIST) 20 MCG RTBID NEB Metoprolol Tartrate (LOPRESSOR) 25 MG Q12HR PO Ipratropium [place] (ATROVENT) 500 MCG RTQ6H INH Ipratropium [place] (ATROVENT) 500 MCG Q2H PRN PRN INH [...] ASDIR IV (CKD) Dextrose/Water (D5%W NON-DEHP) 250 ML Pantoprazole (PROTONIX) 40 MG DAILY@0600 PO Docusate [...] ASDIR IV Dextrose/Water (DEXTROSE 5% WATER) 246 ML Glucagon (GLUCAGON) 1 MG ASDIR PRN IM Insulin Human Regular (HumuLIN R) 100 UNIT ASDIR IV (CKD) Sodium Chloride (SODIUM CHLORIDE 0.9%) 99 ML Magnesium Sulfate (MAGNESIUM SULFATE 4GM/SWFI 100ML) 100 [...] 10 MG Q6H PRN PRN IV Physical Exam General appearance: alert, awake, oriented Head/Eyes: EOMI, PERRLA Neck: non-tender, no JVD Cardiovascular: irregular rhythm, normal heart sounds Respiratory: aerating well, clear to auscultation Abdomen: non-tender, soft Extremities: Extremities: edema, moves all Neuro/GATE GUARD: alert, oriented x 3, CNII-XII intact Skin: ecchymosis (upper and lower extremities) Results Findings/Data: Laboratory Tests 08/15/22154: [Embedded Image Not Available] Laboratory Tests 08/15 154 Chemistry Sodium (134 - [...] (Auto) (14.0 - 32.0 %) 13.1 L Briscoe % (Auto) (4.8 - 9.0 %) 11.7 H Eos % (Auto) (0.3 - 3.7 %) 2.4 Baso % (Auto) (0.0 - 2.0 %) 0.5 Neut # (Auto) (2.0 - 7.6 x10 3/uL) 7.61 H Lymph # (Auto) (1.0 - 3.8 x10 3/uL) 1.39 Briscoe # (Auto) (0.1 - 0.8 x10 3/uL) [...] (0.0 - 0.1 x10 3/uL) 0.00 Radiology data: Recent Impressions: RADIOLOGY - XR CHEST 1 V 08/15 0500 Report Impression - Status: SIGNED Entered: 08/15/2022 0846 IMPRESSION: Cardiomegaly with minimal central venous congestion. Impression By: [email or web address] - Jaylyn Ledesma D.O. ULTRASOUND - US SOFT TISSUE TORSO 08/15 1314 Report Impression - Status: SIGNED Entered: 08/15/2022 1351 IMPRESSION: Small bilateral pleural effusions. Impression By: [email or web address] - Alfreda Joseph M.D. Treatment Prophylaxis Treatment Prophylaxis Drain(s)/tube(s): Drain(s)/tube(s): chest, urinary catheter Diagnosis, Assessment Plan Hospital course to date: 82-year-old male with past medical history of hypertension, atrial fibrillation, supraventricular tachycardia status post ablation who was admitted with reports of multivessel coronary artery disease found on a cardiac catheterization done at [facility]. Patient was transferred to [facility] for CABG. 1. Coronary artery disease -Status post CABG x5, ALAA, PVI -Continue metoprolol, Plavix, aspirin -Chest tubes in place and draining - 2. Atrial fibrillation -Continue IV amiodarone for rate control -Continue metoprolol -Monitor and review telemetry 3. Debility -.-PT/OT 4. ARF - cr 1.3-1.9-2.2-2.0 - post op, post lasix therefore likely pre-renal - baseline CKD is suspected - nephro consulted 5. anemia - acute, post op expecteed - monitor and transfuse if hg <7 6. Delirium -Likely due to sundowning -Monitor closely -Patient is neurologically intact dispo: possible INPT REHAB - discussed with Pts daughter in details total time spent 35mins Problem List/A P: 1. S/P CABG x 5 2. CAD (coronary artery disease) 3. Postoperative pulmonary dysfunction after cardiac surgery 4. HTN (hypertension) Consultants: cardiology, cardiovascular surgery at 2157 RPT #:[id number] END OF REPORT [facility] 2022-08-15 15:00:00 [facility] ([facility]) Critical Care Progress Note REPORT#:[id number] REPORT STATUS: Signed DATE:08/15/22 TIME: 1500 PATIENT: BRENNAN HAN UNIT #: [id number] ROOM/BED: [place] [address] : 42 AGE: 82 SEX: M ATTEND: Salazar Dee MD ADM AUTHOR: Kel Agustin MD * ALL edits or amendments must be made on the electronic/computer document * Subjective Chief complaint: CABG HPI: 82-year-old male with history of hypertension, A-fib on [...] 2 mics of epinephrine and insulin drip. Comments: Interval history- Patient was given one dose of Amidoarone 150mg for A fib, in and out of A fib, but rate controlled Review of Systems Free Text ROS Notes Free Text ROS Notes: 12 point Review of Systems was performed to the extent possible including discussion with the nursing staff and review of vital signs and all data. All systems negative other than pertinent negative/positive findings mentioned in the interval history section. Objective General VS/I O Last Documented: Result Date Time Pulse Ox [...] Urine 700 325 PATIENT WEIGHT: Weight (lb): 222 Weight (oz): 7.14 Weight (kg): 100.900 Medications: Active Meds + DC'd Last 24 Hrs Furosemide (LASIX) 40 MG BID 9A 5P PO Furosemide (LASIX 20MG INJ) 20 MG ONCE ONE IV (DC) Amiodarone HCl (NEXTERONE 150MG/D5W 100ML) 100 ML STAT STA IV (DC) Aspirin (ASPIRIN) 81 MG DAILY PO Budesonide (PULMICORT RESPULES) 0.5 MG RTBID INH Formoterol Fumarate (PERFOROMIST) 20 MCG RTBID NEB Metoprolol Tartrate (LOPRESSOR) 25 MG Q12HR PO Ipratropium [place] (ATROVENT) 500 MCG RTQ6H INH Ipratropium [place] (ATROVENT) 500 MCG Q2H PRN PRN INH [...] ASDIR IV (CKD) Dextrose/Water (D5%W NON-DEHP) 250 ML Pantoprazole (PROTONIX) 40 MG DAILY@0600 PO Docusate [...] ASDIR IV Dextrose/Water (DEXTROSE 5% WATER) 246 ML Glucagon (GLUCAGON) 1 MG ASDIR PRN IM Insulin Human Regular (HumuLIN R) 100 UNIT ASDIR IV (CKD) Sodium Chloride (SODIUM CHLORIDE 0.9%) 99 ML Magnesium Sulfate (MAGNESIUM SULFATE 4GM/SWFI 100ML) 100 [...] (APRESOLINE) 10 MG Q6H PRN PRN IV Results Findings/data: Laboratory Tests 08/15 0155 Chemistry Sodium (134 - [...] (Auto) (14.0 - 32.0 %) 13.1 L Briscoe % (Auto) (4.8 - 9.0 %) 11.7 H Eos % (Auto) (0.3 - 3.7 %) 2.4 Baso % (Auto) (0.0 - 2.0 %) 0.5 Neut # (Auto) (2.0 - 7.6 x10 3/uL) 7.61 H Lymph # (Auto) (1.0 - 3.8 x10 3/uL) 1.39 Briscoe # (Auto) (0.1 - 0.8 x10 3/uL) [...] 0.1 x10 3/uL) 0.00 Laboratory Tests 08/15/22 0155: [Embedded Image Not Available] Radiology data Recent Impressions: RADIOLOGY - XR CHEST 1 V 08/15 0500 Report Impression - Status: SIGNED Entered: 08/15/2022 0846 IMPRESSION: Cardiomegaly with minimal central venous congestion. Impression By: [email or web address] - Jaylyn Ledesma D.O. ULTRASOUND - US SOFT TISSUE TORSO 08/15 1314 Report Impression - Status: SIGNED Entered: 08/15/2022 1351 IMPRESSION: Small bilateral pleural effusions. Impression By: [email or web address] - Alfreda Joseph M.D. Free Text Obj Notes Free Text Obj Notes: GEN: Patient is calm and in no distress. NECK: Supple, no JVD or thrush. No adenopathy. LUNGS: Clear lungs, no wheezes, no rales or crackles. CV: Irregularly irregular, no murmurs are heard. No S3 or rubs. GI: Abdomen is soft, not tender. Bowel sounds are present. EXT/Musc: No edema. No clubbing or cyanosis noted. Skin is warm. NEURO: Awake, alert and oriented x 3. No focal findings. Treatment Prophylaxis Treatment Prophylaxis Drain(s)/tube(s): Drain(s)/tube(s): chest, urinary catheter Diagnosis, Assessment Plan Problem list/A P: 1. CAD (coronary artery disease) 2. Postoperative pulmonary dysfunction after cardiac surgery 3. S/P CABG x 5 Free text A P: 82-year-old male with history of hypertension, A-fib on [...] Appears intact, keep off sedation, multimodal pain control Respiratory: Sats well, CPAP as tolerated, plan for extubation, ABG and CXR reviewed Cardiovascular: HD unstable on vasopressors, attempt to wean, keep CTs to suction Renal: strict I/Os, monitor Cr and electrolytes, LA clear, judicious resuscitation GI: bedside swallow then oral diet after extubation, bowel regimen, monitor LFTs ID: reactive leukocytosis, trend WBC, continue periop antibiotics per protocol Hem: acute blood loss anemia, monitor Hgb and CTs output, transfuse as needed Endo: Blood glucose control with insulin gtt per protocol Misc: PTOT consult, DVT and GI prophylaxis with DAPT and PPI 08/11 Continue supplemental oxygen and titrate FiO2 to keep saturation more than 90%. Inhaled bronchodilators as needed IS and LVEP Judicious pain control Aspirin and Plavix Amiodarone p.o. Metoprolol Amiodarone bolus and drip 1 albumin bolus 1 dose of Lasix 20 mg Dopamine drip at 3 mics Monitor kidney function and trend creatinine Monitor and replete electrolytes Strict I O's Cardiac diet with bowel regimen Blood glucose control, sliding scale insulin VTE prophylaxis, DOAC's Stress ulcer prophylaxis, Protonix Discussed with ICU team and cardiac surgery Critical care time 41 minutes 08/12 Continue supplemental oxygen and titrate FiO2 to keep saturation more than 90%. Inhaled bronchodilators as needed IS and LVEP Continue monitoring chest tube output, increased output after walking Judicious pain control Echocardiogram is done, results are pending Aspirin and Plavix Amiodarone p.o. Metoprolol Amiodarone bolus and drip Off dopamine Holding off on Lasix for now per nephrology Monitor kidney function and trend creatinine Monitor and replete electrolytes Strict I O's Cardiac diet with bowel regimen Blood glucose control, sliding scale insulin VTE prophylaxis, DOAC's Stress ulcer prophylaxis, Protonix Discussed with ICU team, nephrology and cardiac surgery Critical care time 39 minutes 08/13 Continue supplemental oxygen and titrate FiO2 to keep saturation more than 90%. Inhaled bronchodilators as needed IS and LVEP Continue monitoring chest tube output, increased output after walking Judicious pain control Echocardiogram is done, results are pending Aspirin and Plavix Amiodarone p.o. Metoprolol Amiodarone bolus and drip Off dopamine Holding off on Lasix for now per nephrology Monitor kidney function and trend creatinine Monitor and replete electrolytes Strict I O's Cardiac diet with bowel regimen Blood glucose control, sliding scale insulin VTE prophylaxis, DOAC's Stress ulcer prophylaxis, Protonix Discussed with ICU team, nephrology and cardiac surgery Critical care time 39 minutes 08/14 Neurologically intact Pain well controlled Continue nebs Creatnine improving, monitor the urine output , renal following A fib intermittently, rate controlled. Is on amiodarone and metoprolol. Patient is on room air Patient had a bowel movement. Sugars are well controlled. DVT prophylaxis with SCDs and DAPT. PPI. PT OT. Disposition will be home. 08/15 Neurologically intact Pain well controlled Continue nebs Creatnine improving, monitor the urine output , renal following, patient to be diuresed with Lasix 40 p.o. twice daily as per renal. Continue to monitor the urine output. A fib intermittently, rate controlled. Is on amiodarone 200 3 times daily and metoprolol 25mg BID Patient is on room air Patient had a bowel movement. Sugars are well controlled. DVT prophylaxis with SCDs and DAPT. PPI. PT OT. Disposition will be IPR, pending insurance authorization Total critical care time 34 minutes excluding procedures Consultants: cardiology, cardiovascular surgery at 1540 RPT #:[id number] END OF REPORT [facility] 2022-08-15 10:42:00 [facility] ([facility]) Nephrology Progress Note REPORT#:[id number] REPORT STATUS: Signed DATE:08/15/22 TIME: 1042 PATIENT: BRENNAN AHN UNIT #: [id number] ROOM/BED: [place] [address] : 42 AGE: 82 SEX: M ATTEND: Salazar Dee MD ADM AUTHOR: Maura Terrazas MD * ALL edits or amendments must be made on the electronic/computer document * Subjective Chief complaint: chest pain HPI: 82-year-old male known to have hypertension, atrial fibrillation, supraventricular tachycardia with requiring ablation presenting with multivessel cardiovascular disease and he underwent CABG 07/13/2022. He was extubated postoperatively and his blood pressures were stable when he was seen. He endorsed having kidney issues in the past and seeing a progress man at [place] but his kidney function had been stable and he denied any urinary complaints, chronic use of NSAIDs. He also denied any nausea, itching, cramping , change of taste, orthopnea. 08/15 Patient looking stable hemodynamically , volume worsening and heart rate in A- fib. Objective General VS/I O: Vital Signs: Date Time Temp Pulse Resp [...] 99 97 08/15 0011 98 Room air 08/15 0000 92 22 132/64 92 96 08/14 2301 119 30 149/62 89 97 08/14 2245 95 23 156/67 96 97 08/14 2230 97 26 154/65 93 96 08/14 2215 98 16 171/70 101 97 08/14 2203 90 21 173/74 107 97 08/14 2201 94 25 187/77 110 98 08/14 2105 95 Room air 08/14 2101 86 32 167/72 103 97 [...] Urine 700 325 PATIENT WEIGHT: Weight (lb): 222 Weight (oz): 7.14 Weight (kg): 100.900 Physical Exam General appearance: alert, awake, no acute distress Head/eyes: atraumatic, clear cornea ENT: moist mucous membranes, normal nose Neck: no JVD, no lymphadenopathy Cardiovascular: normal heart sounds, regular rate and rhythm Respiratory: aerating well, clear to auscultation Abdomen: non-tender, soft Genitourinary: no bladder distention, no flank pain Extremities: no edema, no gangrene, no swelling Treatment Prophylaxis Treatment Prophylaxis Drain(s)/tube(s): Drain(s)/tube(s): chest, urinary catheter Diagnosis, Assessment Plan Free Text A P: 82-year-old male known to have hypertension, atrial fibrillation, supraventricular tachycardia with requiring ablation presenting with multivessel cardiovascular disease and he underwent CABG 07/13/2022. He was extubated postoperatively and his blood pressures were stable when he was seen. He endorsed having kidney issues in the past and seeing a progress man at [place] but his kidney function had been stable and he denied any urinary complaints, chronic use of NSAIDs. He also denied any nausea, itching, cramping , change of taste, orthopnea. Nephrology following for: [...] only if his SBP goes above 160. 3/12 1. Acute kidney injury: Most likely prerenal as he recently had surgery. His blood pressures are stable but he appears dry therefore I would encourage oral intake and small boluses of IV fluid if needed. Renal function improving with improving blood presures. 2. Volume status: He appears hypovolemic even though his weight is elevated from admitting weight. Plan is to monitor input and output and continue to encourage oral intake and IV fluid if needed. Today his orthostatic blood pressures were positive so albumin one time given. 3. Electrolytes: His electrolytes appear to be in normal range plan is to monitor and replace as needed 4. Hypertension: His blood pressures are on the low side therefore I would treat only if his SBP goes above 160. Improved so PRN dose reccommended if SBP>160. 3 1. Acute kidney injury: Most likely prerenal as he recently had surgery. His blood pressures are stable but he appears dry therefore I would encourage oral intake and small boluses of IV fluid if needed. Renal function improving with improving blood presures. 2. Hypovolemia/orthostasis: Improving and now plan is to give low dose PO lasix only if oxygenation worsens as he has risk of hypervolemia but still improving intravascular volume postoperatively. 3. Electrolytes: His electrolytes appear to be in normal range plan is to monitor and replace as needed 4. Hypertension: His blood pressures have been on the low side therefore I would treat only if his SBP goes above 160. Improved so PRN dose reccommended if SBP>160. 3 1. Acute kidney injury: Most likely prerenal [...] overload so plan to start lasix as above Consultants: cardiology, cardiovascular surgery at 1048 RPT #:[id number] END OF REPORT [facility] 2022-08-15 10:26:00 [facility] Cardiothoracic Surgery Prog REPORT#:[id number] REPORT STATUS: Signed DATE:08/15/22 TIME: 1026 PATIENT: BRENNAN AHN UNIT #: [id number] ROOM/BED: [place] [id number] : 42 AGE: 82 SEX: M ATTEND: Salazar Dee MD ADM AUTHOR: Shiloh Pimentel NP * ALL edits or amendments must be made on the electronic/computer document * General Post-op: day 5 Status post: 08/10/22 CABG x 5 (NGUYEN-LAD, SVG-Olga Lidia, SVG-OM, SVG-LPLA, SVG-PDA) PVI TIMMY STRINGER (RGSV) Subjective Chief complaint: Follow-up CABG Review of Systems Constitutional: Denies: fatigue, fever, generalized weakness, malaise. Skin: Denies: itching. Allergy/Immun: Denies: anaphylaxis, hives, itching. Eyes: Denies: itching, diplopia, eye pain. ENT: Denies: sore throat. Respiratory: Denies: JANG (dyspnea on exertion), pneumonia, SOB. Cardiovascular: Denies: chest pain, palpitations. GI: Denies: abdominal pain, GERD, nausea, vomiting. Musculoskeletal: Denies: extremity pain, extremity swelling, joint pain. Heme: Denies: bleeding, bruising. Neuro: Denies: dizziness, headache, lightheaded, syncope. All systems rev neg: except as marked Objective General VS/I O Vital Signs Date Temp Pulse Resp B/P B/P Mean Pulse Ox FiO2 08/14-08/15 97.5-98.9 67-119 16-41 108-187/59-103 77-114 87-100 21 [...] Urine 700 325 PATIENT WEIGHT: Weight (lb): 222 Weight (oz): 7.14 Weight (kg): 100.900 Physical Exam General appearance: alert, oriented, mental status normal, no respiratory distress Wound/incision: Location: sternal Site condition: dressing clean dry, dressing intact HEENT: anicteric, mucosal membranes moist Neck: full range of motion, non-tender Cardiovascular: BP/pulses equal bilat., regular rate rhythm Respiratory: aerating well, symmetric expansion, no distress Abdomen: soft, non-tender, no distention Genitourinary: no longo Extremities: dry, moves all Musculoskeletal: full range of motion Neuro/GATE GUARD: alert, oriented X 3 Skin: dry, intact Current Medications Medications: Active Meds + DC'd Last 24 Hrs Amiodarone HCl (NEXTERONE 150MG/D5W 100ML) 100 ML STAT STA IV (DC) Aspirin (ASPIRIN) 81 MG DAILY PO Budesonide (PULMICORT RESPULES) 0.5 MG RTBID INH Formoterol Fumarate (PERFOROMIST) 20 MCG RTBID NEB Metoprolol Tartrate (LOPRESSOR) 25 MG Q12HR PO Ipratropium [place] (ATROVENT) 500 MCG RTQ6H INH Ipratropium [place] (ATROVENT) 500 MCG Q2H PRN PRN INH [...] ASDIR IV (CKD) Dextrose/Water (D5%W NON-DEHP) 250 ML Pantoprazole (PROTONIX) 40 MG DAILY@0600 PO Docusate [...] ASDIR IV Dextrose/Water (DEXTROSE 5% WATER) 246 ML Glucagon (GLUCAGON) 1 MG ASDIR PRN IM Insulin Human Regular (HumuLIN R) 100 UNIT ASDIR IV (CKD) Sodium Chloride (SODIUM CHLORIDE 0.9%) 99 ML Magnesium Sulfate (MAGNESIUM SULFATE 4GM/SWFI 100ML) 100 [...] (APRESOLINE) 10 MG Q6H PRN PRN IV Results Findings/Data: Laboratory Tests 08/15 0155 Chemistry Sodium (134 - [...] (Auto) (14.0 - 32.0 %) 13.1 L Briscoe % (Auto) (4.8 - 9.0 %) 11.7 H Eos % (Auto) (0.3 - 3.7 %) 2.4 Baso % (Auto) (0.0 - 2.0 %) 0.5 Neut # (Auto) (2.0 - 7.6 x10 3/uL) 7.61 H Lymph # (Auto) (1.0 - 3.8 x10 3/uL) 1.39 Briscoe # (Auto) (0.1 - 0.8 x10 3/uL) [...] (0.0 - 0.1 x10 3/uL) 0.00 Radiology data: Recent Impressions: RADIOLOGY - XR CHEST 1 V 08/15 0500 Report Impression - Status: SIGNED Entered: 08/15/2022 1061 IMPRESSION: Cardiomegaly with minimal central venous congestion. Impression By: [email or web address] - Jaylyn Ledesma D.O. Diagnosis, Assessment Plan Hospital course to date: 82 year old with PMH of hypertension, atrial fibrillation, On Eliquis, Hx of SVT ablation 20 years ago transferred to [facility] with new findings of multi-vessel CAD. He reports he was woken from Sleep on Sunday AM with COmplaints of chest pains. EMS aas called and patient was taken to [facility]. He underwent LHC and found to have multi-vessel CAD by Dr Sanchez. Patient was transferred to [facility] for CABG. Patient lives independently. Daughter is at bedside. Patient reports last dose of Elliquis was Sunday AM. Echo was done at [facility] showing EF 55%, Mild MR, Mild AI, mild LVH. According to his records, he has a hx of Chronic kidney disease with baseline Creatine reportedly 1.5. He does report he has seen a renal MD in the past. Assessment/ Plan 1) CAD, Mutli-vessel 2) hypertension Continue BBLKR Add Norvasc 5 mg 3) Atrial fibrillation. Last dose of Eliquis Sunday AM Obtain EKG 4) BPH Continue flomax Workup for CABG underway. Patient was seen and examined by Dr Dee. Coronary artery bypass surgery was discussed with the patient. The risk of the operation, including the STS score, cristian of blleding, infection, heart attack, stroke, Tracheostomy etc discussed with the patient. CT chest, carotid US, Vein mapping ordered. 08/11/22 POD 1 s/p CABG x 5 (NGUYEN-LAD, SVG-Olga Lidia, SVG-OM, SVG-LPLA, SVG-PDA), PVI, ALAA, EVH (RGSV) Patient hemodynamically stable this morning, having episodes of vagal response and BP drops 20 points, SR and sinus arrythmnia noted on nuclear monitoring technician, V epicardial wires on backup rate of 50 Amiodarone bolus and drip Keep MS chest tube and monitor outputs, DC LP chest tube after ambulation Minimal oxygen requirements on 2l nasal cannula, encourage deep breathing and I- S use CXR and labs reviewed Pain management Glycemic control on insulin drip Cardiac diet, nutritional supplements Bowel regimen, + gas Strict I Os, daily weights, albmuin x 1 given for decreased UOP- monitor hourly SCDs for DVT and PPI for GI prophylaxis PT/OT Monitor patient closely in CVICU, continue supportive care Patient seen with Dr. Dee, plan of care discussed with ICU team. 08/12 Alert and oriented, up in the chair Remains on amiodarone drip for A-fib Wean dopamine off Chest x-ray reviewed. Breathing comfortably on room air Creatinine increased to 1.9, urine output 1.5 L last night after the boluses of Lasix Repeat renal panel today show creatinine 2.2. Nephrology consulted, hold off on additional Lasix Replace electrolytes Encourage I-S and mobilization Glycemic controlled Keep in CVICU for close monitoring Patient seen and plan reviewed with Dr Piper, Dr Kirkpatrick, [facility] and multidisciplinary team 08/13 Intermittently confused. Continue delirium precautions Minimal O2 requirements, wean O2 as tolerated Allow for permissive hypertension as urine output improved with higher blood pressure Monitor renal function Encourage p.o. intake, bowel regimen Remains in A-fib, heart rate fairly controlled. Amiodarone drip at 0.5 Discontinue mediastinal chest tube Glycemic control Keep in CVICU for close monitoring. Patient seen and plan reviewed with Dr Kirkpatrick, [facility] multidisciplinary team Family updated at the bedside 08/14 Patient is alert and oriented, delirium precautions O2 requirements, encourage I-S Permissive hypertension for better renal perfusion Creatinine trending down, good urine output. Hold Lasix for now Encourage p.o. intake, bowel regimen Electrolyte replacement as needed Keep in CVICU today Plan for rehab. Awaiting insurance approval Patient was seen and plan reviewed with Dr. Kirkpatrick, [facility] and multidisciplinary team 08/15 No major events overnight Resp status stable on RA. Encourage IS HD stable. Remains in A fib, HR controlled Continue PO amio, BB increased to 25 mg BID Renal function improved, good UOP Will DC pacing wires tomorrow PT/OT Plan for rehab. Awaiting insurance approval Patient was seen and plan reviewed with MCKAYLA Rojo and multidisciplinary team Consultants: cardiology, cardiovascular surgery at 1036 at 1027 RPT #:[id number] END OF REPORT [facility] 2022-08-15 09:42:00 [facility] Cardiology Progress Note REPORT#:[id number] REPORT STATUS: Signed DATE:08/15/22 TIME: 941 PATIENT: BRENNAN AHN UNIT #: [id number] ROOM/BED: [place] [address] : 42 AGE: 82 SEX: M ATTEND: Salazar Dee MD ADM AUTHOR: Catrina Shetty * ALL edits or amendments must be made on the electronic/computer document * Subjective Patient reports: No: complaints. Objective General VS/I O: 24 hour I O ending at 0700: [...] 100 08/15 0339 96 Room air 21 14 0300 75 19 126/64 89 98 08/15 0200 87 24 139/64 92 98 08/15 0100 90 19 156/69 99 97 08/15 0011 98 Room air 08/15 0000 92 22 132/64 92 96 08/14 2301 119 30 149/62 89 97 08/14 2245 95 23 156/67 96 97 08/14 2230 97 26 154/65 93 96 08/14 2215 98 16 171/70 101 97 08/14 2203 90 21 173/74 107 97 08/14 2201 94 25 187/77 110 98 08/14 2105 95 Room air 08/14 2101 86 32 167/72 103 97 08/15 1999 37.2 08/14 2000 79 17 147/71 101 [...] 113/58 80 97 PATIENT WEIGHT: Weight (lb): 222 Weight (oz): 7.14 Weight (kg): 100.900 Medications: Active Meds + DC'd Last 24 Hrs Amiodarone HCl (NEXTERONE 150MG/D5W 100ML) 100 ML STAT STA IV (DC) Aspirin (ASPIRIN) 81 MG DAILY PO Budesonide (PULMICORT RESPULES) 0.5 MG RTBID INH Formoterol Fumarate (PERFOROMIST) 20 MCG RTBID NEB Metoprolol Tartrate (LOPRESSOR) 25 MG Q12HR PO Ipratropium [place] (ATROVENT) 500 MCG RTQ6H INH Ipratropium [place] (ATROVENT) 500 MCG Q2H PRN PRN INH [...] ASDIR IV (CKD) Dextrose/Water (D5%W NON-DEHP) 250 ML Pantoprazole (PROTONIX) 40 MG DAILY@0600 PO Docusate [...] ASDIR IV Dextrose/Water (DEXTROSE 5% WATER) 246 ML Glucagon (GLUCAGON) 1 MG ASDIR PRN IM Insulin Human Regular (HumuLIN R) 100 UNIT ASDIR IV (CKD) Sodium Chloride (SODIUM CHLORIDE 0.9%) 99 ML Magnesium Sulfate (MAGNESIUM SULFATE 4GM/SWFI 100ML) 100 [...] 10 MG Q6H PRN PRN IV Physical Exam General appearance: alert, awake, oriented, no acute distress Head/Eyes: atraumatic, PERRL Cardiovascular: CV assessment: irregularly irregular Respiratory: decreased breath sounds, on oxygen, no distress Abdomen: soft, non-tender, normal bowel sounds, no distention Genitourinary: no flank pain, no urinary catheter Lower extremity: LE assessment: edema, normal capillary refill, normal temperature Musculoskeletal: normal inspection Neuro/GATE GUARD: alert, oriented X 3 Skin: poor skin turgor, bruise/ecchymosis Right forearm Psychiatry: normal affect, normal mood Results Findings/Data: Laboratory Tests 08/15 154 Chemistry Sodium (134 - [...] (Auto) (14.0 - 32.0 %) 13.1 L Briscoe % (Auto) (4.8 - 9.0 %) 11.7 H Eos % (Auto) (0.3 - 3.7 %) 2.4 Baso % (Auto) (0.0 - 2.0 %) 0.5 Neut # (Auto) (2.0 - 7.6 x10 3/uL) 7.61 H Lymph # (Auto) (1.0 - 3.8 x10 3/uL) 1.39 Briscoe # (Auto) (0.1 - 0.8 x10 3/uL) [...] Magnesium (1.80 - 2.40 mg/dL) 2.32 Radiology data: Recent Impressions: RADIOLOGY - XR CHEST 1 V 08/15 0500 Report Impression - Status: SIGNED Entered: 08/15/2022 2346 IMPRESSION: Cardiomegaly with minimal central venous congestion. Impression By: [email or web address] - Jaylyn Ledesma D.O. Results: labs reviewed, vital signs reviewed Telemetry Interpretation: afib with controlled rate Diagnosis, Assessment Plan Plan discussed with: patient Free Text DxA P Notes Free Text DxA P Notes: 1. CAD s/p CABG x 5 (NGUYEN-LAD, SVG-Olga Lidia, SVG-OM, SVG-LPLA, SVG-PDA) continue asa, bb, plavix echo 08/12- LVEF 50-54%, left pleural effusion intolerant of statin, will consider nonstatin med such as Repatha or Nexletol outpatient post-op per CTS 2. A-fib: Paroxysmal- rate controlled s/p PVI and ARISTEO amputation on amiodarone and BB 3. HTN BP on upward trend continue metoprolol 4. LADARIUS even fluid balance creat down to 1.9 today per Nephrology continue supportive care Doing good post-op at 1249 at 1810 RPT #:[id number] END OF REPORT [facility] 2022-08-15 08:44:00 [facility] ([facility] Rehab Progress Note REPORT#:[id number] REPORT STATUS: Signed DATE:08/15/22 TIME: 843 PATIENT: BRENNAN AHN UNIT #: [id number] ROOM/BED: [place] [address] : 42 AGE: 82 SEX: M ATTEND: Salazar Dee MD ADM AUTHOR: Lavinia Jimenez NP * ALL edits or amendments must be made on the electronic/computer document * Subjective Chief complaint: Rehab follow-up Seen in CVICU Denies sob or pain Doing well. Sitting up in chair NAD Denies MORA/N/V/D/CP 14 systems reviewed and neg. except that above. Objective General VS: Vital Signs: Date Time Temp Pulse Resp [...] 110 98 08/14 2105 95 Room air 08/14 2101 86 32 167/72 103 97 08/14 2000 98.9 08/15 1999 79 17 147/71 101 96 08/14 1901 [...] 113/58 80 97 PATIENT WEIGHT: Weight (lb): 222 Weight (oz): 7.14 Weight (kg): 100.900 Medications: Active Meds + DC'd Last 24 Hrs Amiodarone HCl (NEXTERONE 150MG/D5W 100ML) 100 ML STAT STA IV (DC) Aspirin (ASPIRIN) 81 MG DAILY PO Budesonide (PULMICORT RESPULES) 0.5 MG RTBID INH Formoterol Fumarate (PERFOROMIST) 20 MCG RTBID NEB Metoprolol Tartrate (LOPRESSOR) 25 MG Q12HR PO Ipratropium [place] (ATROVENT) 500 MCG RTQ6H INH Ipratropium [place] (ATROVENT) 500 MCG Q2H PRN PRN INH [...] ASDIR IV (CKD) Dextrose/Water (D5%W NON-DEHP) 250 ML Pantoprazole (PROTONIX) 40 MG DAILY@0600 PO Docusate [...] ASDIR IV Dextrose/Water (DEXTROSE 5% WATER) 246 ML Glucagon (GLUCAGON) 1 MG ASDIR PRN IM Insulin Human Regular (HumuLIN R) 100 UNIT ASDIR IV (CKD) Sodium Chloride (SODIUM CHLORIDE 0.9%) 99 ML Magnesium Sulfate (MAGNESIUM SULFATE 4GM/SWFI 100ML) 100 [...] 10 MG Q6H PRN PRN IV Physical Exam General appearance: obese, alert, awake, oriented Psych: alert, normal affect HEENT: anicteric, sclera clear Neck: supple, no JVD Cardiovascular: S1/S2, no murmur Respiratory: aerating well, clear bilaterally Abdomen: bowel sounds present, non-distended, soft Skin: intact, no rash Musculoskeletal - general: Musculoskeletal - general: normal muscle mass, normal tone, hips 3+, decereased shoulder AROM due to sternal precautions Neuro/GATE GUARD: alert, CNII-XII intact, normal speech, no sensory deficits Results Findings/Data: Laboratory Tests: 08/15 0155 Chemistry Sodium (134 - [...] (Auto) (14.0 - 32.0 %) 13.1 L Briscoe % (Auto) (4.8 - 9.0 %) 11.7 H Eos % (Auto) (0.3 - 3.7 %) 2.4 Baso % (Auto) (0.0 - 2.0 %) 0.5 Neut # (Auto) (2.0 - 7.6 x10 3/uL) 7.61 H Lymph # (Auto) (1.0 - 3.8 x10 3/uL) 1.39 Briscoe # (Auto) (0.1 - 0.8 x10 3/uL) [...] - 0.1 x10 3/uL) 0.00 Diagnosis, Assessment Plan Free Text A P: Multivessel CAD Status post CABG x5 Muscle weakness Unsteady gait Impaired ADLs, mobility Alzheimer's dementia Postoperative anemia LADARIUS on CKD History of A-fib HTN Moderate bilateral pleural effusions Plan: Continue PT/OT Out of bed to chair Work on strength, bed mobility, transfers, gait Monitor for left knee buckling Increase endurance Fall precautions Monitor p.o. intake and nutrition Strict decubitus precautions Monitor labs closely Monitor telemetry. Atrial fibs intermittent Advance therapies as tolerated.. Excellent candidate CLOF: 100 feet x 2 min assist forward stooped posture Patient with slight confusion/dementia quired 1 rest break Criteria for acute rehab Telemetry monitoring-intermittent atrial fibs/may require frequent adjustments in meds Dementia/confusion-Higher level of nursing care and monitoring for safety LADARIUS on CKD-closer medical monitoring-acute changes could lead to arrhythmias Patient is capable and motivated of the 3-hour therapy requirement for IPR IRF consulted. [employer] Medicare. Will require insurance approval Total time was 35 minutes > 50% with patient performing physical examination, discussing plan of care, goals, therapies, progress, medications, labs. All questions answered Rehab attestation: Face to face exam completed. Treatment plan discussed with patient. at 0908 RPT #:[id number] END OF REPORT [facility] 2022-08-14 14:34:00 [facility] ([facility]) Critical Care Progress Note REPORT#:[id number] REPORT STATUS: Signed DATE:08/14/22 TIME: 1434 PATIENT: BRENNAN AHN UNIT #: [id number] ROOM/BED: [place] [address] : 42 AGE: 82 SEX: M ATTEND: Salazar Dee MD ADM AUTHOR: Kel Agustin MD * ALL edits or amendments must be made on the electronic/computer document * Subjective Chief complaint: CABG HPI: 82-year-old male with history of hypertension, A-fib on [...] 2 mics of epinephrine and insulin drip. Comments: Interval history- Patient creatinine is improving With good urine output Review of Systems Free Text ROS Notes Free Text ROS Notes: 12 point Review of Systems was performed to the extent possible including discussion with the nursing staff and review of vital signs and all data. All systems negative other than pertinent negative/positive findings mentioned in the interval history section. Objective General VS/I O Last Documented: Result Date Time Pulse Ox 100 [...] Urine 1800 950 PATIENT WEIGHT: Weight (lb): 219 Weight (oz): 12.81 Weight (kg): 99.700 Medications: Active Meds + DC'd Last 24 Hrs Aspirin (ASPIRIN) 81 MG DAILY PO Budesonide (PULMICORT RESPULES) 0.5 MG RTBID INH Formoterol Fumarate (PERFOROMIST) 20 MCG RTBID NEB Metoprolol Tartrate (LOPRESSOR) 25 MG Q12HR PO Albumin Human (ALBUMINAR 5% 12.5GM/250ML) 250 ML ONCE ONE IV (DC) Ipratropium [place] (ATROVENT) 500 MCG RTQ6H INH Ipratropium [place] (ATROVENT) 500 MCG Q2H PRN PRN INH [...] ASDIR IV (CKD) Dextrose/Water (D5%W NON-DEHP) 250 ML Pantoprazole (PROTONIX) 40 MG DAILY@0600 PO Docusate [...] ASDIR IV Dextrose/Water (DEXTROSE 5% WATER) 246 ML Glucagon (GLUCAGON) 1 MG ASDIR PRN IM Insulin Human Regular (HumuLIN R) 100 UNIT ASDIR IV (CKD) Sodium Chloride (SODIUM CHLORIDE 0.9%) 99 ML Magnesium Sulfate (MAGNESIUM SULFATE 4GM/SWFI 100ML) 100 [...] (APRESOLINE) 10 MG Q6H PRN PRN IV Results Findings/data: Laboratory Tests 08/142 Chemistry Sodium (134 - 147 mEq/L) 137 [...] - 2.40 mg/dL) 2.49 H Laboratory Tests 08/142 Hematology WBC (4.5 - 11.0 x10 3/uL) [...] (Auto) (14.0 - 32.0 %) 11.1 L Briscoe % (Auto) (4.8 - 9.0 %) 9.7 H Eos % (Auto) (0.3 - 3.7 %) 1.6 Baso % (Auto) (0.0 - 2.0 %) 0.3 Neut # (Auto) (2.0 - 7.6 x10 3/uL) 7.22 Lymph # (Auto) (1.0 - 3.8 x10 3/uL) 1.04 Briscoe # (Auto) (0.1 - 0.8 x10 3/uL) [...] 0.1 x10 3/uL) 0.00 Laboratory Tests 08/14/22 0342: [Embedded Image Not Available] Radiology data Recent Impressions: ULTRASOUND - US SOFT TISSUE TORSO 08/13 1619 Report Impression - Status: SIGNED Entered: 08/13/20222026 IMPRESSION: Moderate bilateral pleural effusions, with basilar atelectasis. Impression By: [email or web address] Akash Marion M.D. RADIOLOGY - XR CHEST 1 V 08/14 0648 Report Impression - Status: SIGNED Entered: 08/14/2022 0809 IMPRESSION: Grossly stable exam. Impression By: [email or web address] - Morteza Allen M.D. Free Text Obj Notes Free Text Obj Notes: GEN: Patient is calm and in no distress. NECK: Supple, no JVD or thrush. No adenopathy. LUNGS: Clear lungs, no wheezes, no rales or crackles. CV: Irregularly irregular, no murmurs are heard. No S3 or rubs. GI: Abdomen is soft, not tender. Bowel sounds are present. EXT/Musc: No edema. No clubbing or cyanosis noted. Skin is warm. NEURO: Awake, alert and oriented x 3. No focal findings. Treatment Prophylaxis Treatment Prophylaxis Drain(s)/tube(s): Drain(s)/tube(s): chest, urinary catheter Diagnosis, Assessment Plan Problem list/A P: 1. CAD (coronary artery disease) 2. Postoperative pulmonary dysfunction after cardiac surgery 3. S/P CABG x 5 Free text A P: 82-year-old male with history of hypertension, A-fib on [...] Appears intact, keep off sedation, multimodal pain control Respiratory: Sats well, CPAP as tolerated, plan for extubation, ABG and CXR reviewed Cardiovascular: HD unstable on vasopressors, attempt to wean, keep CTs to suction Renal: strict I/Os, monitor Cr and electrolytes, LA clear, judicious resuscitation GI: bedside swallow then oral diet after extubation, bowel regimen, monitor LFTs ID: reactive leukocytosis, trend WBC, continue periop antibiotics per protocol Hem: acute blood loss anemia, monitor Hgb and CTs output, transfuse as needed Endo: Blood glucose control with insulin gtt per protocol Misc: PTOT consult, DVT and GI prophylaxis with DAPT and PPI 08/11 Continue supplemental oxygen and titrate FiO2 to keep saturation more than 90%. Inhaled bronchodilators as needed IS and LVEP Judicious pain control Aspirin and Plavix Amiodarone p.o. Metoprolol Amiodarone bolus and drip 1 albumin bolus 1 dose of Lasix 20 mg Dopamine drip at 3 mics Monitor kidney function and trend creatinine Monitor and replete electrolytes Strict I O's Cardiac diet with bowel regimen Blood glucose control, sliding scale insulin VTE prophylaxis, DOAC's Stress ulcer prophylaxis, Protonix Discussed with ICU team and cardiac surgery Critical care time 41 minutes 08/12 Continue supplemental oxygen and titrate FiO2 to keep saturation more than 90%. Inhaled bronchodilators as needed IS and LVEP Continue monitoring chest tube output, increased output after walking Judicious pain control Echocardiogram is done, results are pending Aspirin and Plavix Amiodarone p.o. Metoprolol Amiodarone bolus and drip Off dopamine Holding off on Lasix for now per nephrology Monitor kidney function and trend creatinine Monitor and replete electrolytes Strict I O's Cardiac diet with bowel regimen Blood glucose control, sliding scale insulin VTE prophylaxis, DOAC's Stress ulcer prophylaxis, Protonix Discussed with ICU team, nephrology and cardiac surgery Critical care time 39 minutes 08/13 Continue supplemental oxygen and titrate FiO2 to keep saturation more than 90%. Inhaled bronchodilators as needed IS and LVEP Continue monitoring chest tube output, increased output after walking Judicious pain control Echocardiogram is done, results are pending Aspirin and Plavix Amiodarone p.o. Metoprolol Amiodarone bolus and drip Off dopamine Holding off on Lasix for now per nephrology Monitor kidney function and trend creatinine Monitor and replete electrolytes Strict I O's Cardiac diet with bowel regimen Blood glucose control, sliding scale insulin VTE prophylaxis, DOAC's Stress ulcer prophylaxis, Protonix Discussed with ICU team, nephrology and cardiac surgery Critical care time 39 minutes 08/14 Neurologically intact Pain well controlled Continue nebs Creatnine improving, monitor the urine output , renal following A fib intermittently, rate controlled. Is on amiodarone and metoprolol. Patient is on room air Patient had a bowel movement. Sugars are well controlled. DVT prophylaxis with SCDs and DAPT. PPI. PT OT. Disposition will be home. Total critical care time 35 minutes excluding procedures Consultants: cardiology, cardiovascular surgery at 1541 RPT #:[id number] END OF REPORT [facility] 2022-08-14 13:50:00 [facility] Nephrology Progress Note REPORT#:[id number] REPORT STATUS: Signed DATE:08/14/22 TIME: 1350 PATIENT: BRENNAN AHN UNIT #: [id number] ROOM/BED: [place] [address] : 42 AGE: 82 SEX: M ATTEND: Salazar Dee MD ADM AUTHOR: Maura Terrazas MD * ALL edits or amendments must be made on the electronic/computer document * Subjective Chief complaint: chest pain HPI: 82-year-old male known to have hypertension, atrial fibrillation, supraventricular tachycardia with requiring ablation presenting with multivessel cardiovascular disease and he underwent CABG 07/13/2022. He was extubated postoperatively and his blood pressures were stable when he was seen. He endorsed having kidney issues in the past and seeing a progress man at [place] but his kidney function had been stable and he denied any urinary complaints, chronic use of NSAIDs. He also denied any nausea, itching, cramping , change of taste, orthopnea. 08/14 Patient feeling better, denying all systemic review. Objective General VS/I O: Vital Signs: Date Time Temp Pulse Resp B/P B/P Pulse O2 O2 Flow FiO2 Mean Ox Delivery Rate 08/14 1300 77 19 139/63 90 100 08/14 1201 82 33 138/103 114 91 03 1200 36.9 03 1100 122/69 90 03 1100 67 31 98 03/ 1000 68 27 113/58 80 97 08/14 0901 80 28 122/59 83 97 08/14 0801 79 25 152/86 106 97 08/14 0800 36.8 08/14 0800 Nasal 2 cannula 08/14 0731 74 15 163/73 105 100 08/14 0444 68 14 100 08/14 0415 69 15 100 08/14 0353 100 Nasal 2 cannula 08/14 0345 76 14 100 08/14 0315 71 18 99 08/14 0245 69 24 99 08/14 0215 73 26 98 / 0200 67 14 100 08/14 0130 75 23 99 08/14 0115 84 30 91 08/14 0100 70 14 152/72 103 100 08/14 0045 69 16 100 08/14 0015 68 16 97 08/13 2355 68 16 35 03/ 2355 100 BiPAP 35 08/13 2345 70 15 98 / 2315 74 14 100 08/13 2245 74 17 97 03 2215 83 19 100 08/13 2145 100 29 94 08/13 2115 90 26 100 08/13 2115 99 Nasal 2 cannula 08/14 2055 82 28 156/74 106 98 08/13 2029 80 22 141/67 96 100 08/13 2014 80 26 151/73 105 99 08/14 1999 36.5 031999 Nasal 2 cannula 08/14 1999 94 32 147/73 104 98 08/13 1900 86 28 149/72 103 95 08/13 1846 89 31 148/73 104 97 08/13 1815 80 25 182/77 111 100 08/13 1801 89 34 158/89 114 95 08/13 1751 92 30 120/93 103 94 08/13 1700 82 30 151/75 105 98 03/12 1645 82 28 160/74 106 96 08/13 [...] Urine 1800 950 PATIENT WEIGHT: Weight (lb): 219 Weight (oz): 12.81 Weight (kg): 99.700 Physical Exam General appearance: alert, awake, oriented Head/eyes: atraumatic, clear cornea ENT: moist mucous membranes, normal nose Neck: no JVD, no lymphadenopathy Cardiovascular: normal heart sounds, regular rate and rhythm Respiratory: aerating well, clear to auscultation Abdomen: non-tender, soft Genitourinary: no bladder distention, no flank pain Extremities: no edema, no gangrene, no swelling Treatment Prophylaxis Treatment Prophylaxis Drain(s)/tube(s): Drain(s)/tube(s): chest, urinary catheter Diagnosis, Assessment Plan Free Text A P: 82-year-old male known to have hypertension, atrial fibrillation, supraventricular tachycardia with requiring ablation presenting with multivessel cardiovascular disease and he underwent CABG 07/13/2022. He was extubated postoperatively and his blood pressures were stable when he was seen. He endorsed having kidney issues in the past and seeing a progress man at [place] but his kidney function had been stable and he denied any urinary complaints, chronic use of NSAIDs. He also denied any nausea, itching, cramping , change of taste, orthopnea. Nephrology following for: [...] small boluses of IV fluid if needed. Renal function improving with improving blood presures. 2. Volume status: He appears hypovolemic even though his weight is elevated from admitting weight. Plan is to monitor input and output and continue to encourage oral intake and IV fluid if needed. Today his orthostatic blood pressures were positive so albumin one time given. 3. Electrolytes: His electrolytes appear to be in normal range plan is to monitor and replace as needed 4. Hypertension: His blood pressures are on the low side therefore I would treat only if his SBP goes above 160. Improved so PRN dose reccommended if SBP>160. 08/14 1. Acute kidney injury: Most likely prerenal as he recently had surgery. His blood pressures are stable but he appears dry therefore I would encourage oral intake and small boluses of IV fluid if needed. Renal function improving with improving blood presures. 2. Hypovolemia/orthostasis: Improving and now plan is to give low dose PO lasix only if oxygenation worsens as he has risk of hypervolemia but still improving intravascular volume postoperatively. 3. Electrolytes: His electrolytes appear to be in normal range plan is to monitor and replace as needed 4. Hypertension: His blood pressures have been on the low side therefore I would treat only if his SBP goes above 160. Improved so PRN dose reccommended if SBP>160. Consultants: cardiology, cardiovascular surgery at 1355 RPT #:[id number] END OF REPORT [facility] 2022-08-14 13:45:00 [facility] ([facility] Nephrology Progress Note REPORT#:[id number] REPORT STATUS: Signed DATE:08/14/22 TIME: 1345 PATIENT: BRENNAN AHN UNIT #: [id number] ROOM/BED: [place] [address] : 42 AGE: 82 SEX: M ATTEND: Salazar Dee MD ADM AUTHOR: Maura Terrazas MD * ALL edits or amendments must be made on the electronic/computer document * Subjective Chief complaint: chest pain HPI: 82-year-old male known to have hypertension, atrial fibrillation, supraventricular tachycardia with requiring ablation presenting with multivessel cardiovascular disease and he underwent CABG 07/13/2022. He was extubated postoperatively and his blood pressures were stable when he was seen. He endorsed having kidney issues in the past and seeing a progress man at [place] but his kidney function had been stable and he denied any urinary complaints, chronic use of NSAIDs. He also denied any nausea, itching, cramping , change of taste, orthopnea. 08/13 Patient feeling dizzy on standing but tolerating orally and denying all systemic review. Objective General VS/I O: Vital Signs: Date Time Temp Pulse Resp B/P B/P Pulse O2 O2 Flow FiO2 Mean Ox Delivery Rate 08/14 1300 77 19 139/63 90 100 08/14 1201 82 33 138/103 114 91 08/14 1200 36.9 08/14 1100 122/69 90 08/14 1100 67 31 98 / 1000 68 27 113/58 80 97 08/14 [...] 16 100 / 0015 68 16 97 08/13 2355 68 16 35 08/13 2355 100 BiPAP 35 08/13 2345 70 15 98 08/13 2315 74 14 100 08/13 2245 74 17 97 08/13 2215 83 19 100 08/13 2145 100 29 94 08/13 2115 90 26 100 08/13 2115 99 Nasal 2 cannula 08/136 82 28 156/74 106 98 08/13 2029 [...] Urine 1800 950 PATIENT WEIGHT: Weight (lb): 219 Weight (oz): 12.81 Weight (kg): 99.700 Physical Exam General appearance: alert, awake, oriented Head/eyes: atraumatic, clear cornea ENT: moist mucous membranes, normal nose Neck: no JVD, no lymphadenopathy Cardiovascular: normal heart sounds, regular rate and rhythm Respiratory: aerating well, clear to auscultation Abdomen: non-tender, soft Genitourinary: no bladder distention, no flank pain Extremities: no edema, no gangrene, no swelling Treatment Prophylaxis Treatment Prophylaxis Drain(s)/tube(s): Drain(s)/tube(s): chest, urinary catheter Diagnosis, Assessment Plan Free Text A P: 82-year-old male known to have hypertension, atrial fibrillation, supraventricular tachycardia with requiring ablation presenting with multivessel cardiovascular disease and he underwent CABG 07/13/2022. He was extubated postoperatively and his blood pressures were stable when he was seen. He endorsed having kidney issues in the past and seeing a progress man at [place] but his kidney function had been stable and he denied any urinary complaints, chronic use of NSAIDs. He also denied any nausea, itching, cramping , change of taste, orthopnea. Nephrology following for: [...] small boluses of IV fluid if needed. Renal function improving with improving blood presures. 2. Volume status: He appears hypovolemic even though his weight is elevated from admitting weight. Plan is to monitor input and output and continue to encourage oral intake and IV fluid if needed. Today his orthostatic blood pressures were positive so albumin one time given. 3. Electrolytes: His electrolytes appear to be in normal range plan is to monitor and replace as needed 4. Hypertension: His blood pressures are on the low side therefore I would treat only if his SBP goes above 160. Improved so PRN dose reccommended if SBP>160. Consultants: cardiology, cardiovascular surgery at 1350 RPT #:[id number] END OF REPORT [facility] 2022-08-14 11:04:00 [facility] ([facility]) Cardiothoracic Surgery Prog REPORT#:[id number] REPORT STATUS: Signed DATE:08/14/22 TIME: 1104 PATIENT: BRENNAN AHN UNIT #: [id number] ROOM/BED: [place] [address] : 42 AGE: 82 SEX: M ATTEND: Salazar Dee MD ADM AUTHOR: Shiloh Pimentel NP * ALL edits or amendments must be made on the electronic/computer document * General Post-op: day 4 Status post: 08/10/22 CABG x 5 (NGUYEN-LAD, SVG-Olga Lidia, SVG-OM, SVG-LPLA, SVG-PDA) PVI TIMMY STRINGER (RGSV) Subjective Chief complaint: Follow-up CABG Review of Systems Constitutional: Denies: fatigue, fever, generalized weakness, malaise. Skin: Denies: itching. Allergy/Immun: Denies: anaphylaxis, hives, itching. Eyes: Denies: itching, diplopia, eye pain. ENT: Denies: sore throat. Respiratory: Denies: JANG (dyspnea on exertion), pneumonia, SOB. Cardiovascular: Denies: chest pain, palpitations. GI: Denies: abdominal pain, GERD, nausea, vomiting. Musculoskeletal: Denies: extremity pain, extremity swelling, joint pain. Heme: Denies: bleeding, bruising. Neuro: Denies: dizziness, headache, lightheaded, syncope. All systems rev neg: except as marked Objective General VS/I O Last Documented: Result Date Time B/P 122/69 08/14 [...] Urine 1800 950 PATIENT WEIGHT: Weight (lb): 219 Weight (oz): 12.81 Weight (kg): 99.700 Physical Exam General appearance: alert, oriented, mental status normal, no respiratory distress Wound/incision: Location: sternal Site condition: dressing clean dry, dressing intact HEENT: anicteric, mucosal membranes moist Neck: full range of motion, non-tender Cardiovascular: BP/pulses equal bilat., regular rate rhythm Respiratory: aerating well, symmetric expansion, no distress Abdomen: soft, non-tender, no distention Genitourinary: no longo Extremities: dry, moves all Musculoskeletal: full range of motion Neuro/GATE GUARD: alert, oriented X 3 Skin: dry, intact Current Medications Medications: Active Meds + DC'd Last 24 Hrs Aspirin (ASPIRIN) 81 MG DAILY PO Budesonide (PULMICORT RESPULES) 0.5 MG RTBID INH Formoterol Fumarate (PERFOROMIST) 20 MCG RTBID NEB Metoprolol Tartrate (LOPRESSOR) 25 MG Q12HR PO Albumin Human (ALBUMINAR 5% 12.5GM/250ML) 250 ML ONCE ONE IV (DC) Ipratropium [place] (ATROVENT) 500 MCG RTQ6H INH Ipratropium [place] (ATROVENT) 500 MCG Q2H PRN PRN INH [...] ASDIR IV (CKD) Dextrose/Water (D5%W NON-DEHP) 250 ML Pantoprazole (PROTONIX) 40 MG DAILY@0600 PO Docusate [...] ASDIR IV Dextrose/Water (DEXTROSE 5% WATER) 246 ML Glucagon (GLUCAGON) 1 MG ASDIR PRN IM Insulin Human Regular (HumuLIN R) 100 UNIT ASDIR IV (CKD) Sodium Chloride (SODIUM CHLORIDE 0.9%) 99 ML Magnesium Sulfate (MAGNESIUM SULFATE 4GM/SWFI 100ML) 100 [...] (APRESOLINE) 10 MG Q6H PRN PRN IV Results Findings/Data: Laboratory Tests 08/14 08/13 0342 1952 Chemistry Sodium [...] (Auto) (14.0 - 32.0 %) 11.1 L Briscoe % (Auto) (4.8 - 9.0 %) 9.7 H Eos % (Auto) (0.3 - 3.7 %) 1.6 Baso % (Auto) (0.0 - 2.0 %) 0.3 Neut # (Auto) (2.0 - 7.6 x10 3/uL) 7.22 Lymph # (Auto) (1.0 - 3.8 x10 3/uL) 1.04 Briscoe # (Auto) (0.1 - 0.8 x10 3/uL) [...] (0.0 - 0.1 x10 3/uL) 0.00 Radiology data: Recent Impressions: ULTRASOUND - US SOFT TISSUE TORSO 08/13 1619 Report Impression - Status: SIGNED Entered: 08/13/20222026 IMPRESSION: Moderate bilateral pleural effusions, with basilar atelectasis. Impression By: [email or web address] - Tomy Marion M.D. RADIOLOGY - XR CHEST 1 V 08/14 0648 Report Impression - Status: SIGNED Entered: 08/14/2022 0809 IMPRESSION: Grossly stable exam. Impression By: [email or web address] - Morteza Allen M.D. Diagnosis, Assessment Plan Hospital course to date: 82 year old with PMH of hypertension, atrial fibrillation, On Eliquis, Hx of SVT ablation 20 years ago transferred to [facility] with new findings of multi-vessel CAD. He reports he was woken from Sleep on Sunday AM with COmplaints of chest pains. EMS aas called and patient was taken to [facility]. He underwent LHC and found to have multi-vessel CAD by Dr Sanchez. Patient was transferred to [facility] for CABG. Patient lives independently. Daughter is at bedside. Patient reports last dose of Elliquis was Sunday AM. Echo was done at [facility] showing EF 55%, Mild MR, Mild AI, mild LVH. According to his records, he has a hx of Chronic kidney disease with baseline Creatine reportedly 1.5. He does report he has seen a renal MD in the past. Assessment/ Plan 1) CAD, Mutli-vessel 2) hypertension Continue BBLKR Add Norvasc 5 mg 3) Atrial fibrillation. Last dose of Eliquis Sunday AM Obtain EKG 4) BPH Continue flomax Workup for CABG underway. Patient was seen and examined by Dr Dee. Coronary artery bypass surgery was discussed with the patient. The risk of the operation, including the STS score, cristian of blleding, infection, heart attack, stroke, Tracheostomy etc discussed with the patient. CT chest, carotid US, Vein mapping ordered. 08/11/22 POD 1 s/p CABG x 5 (NGUYEN-LAD, SVG-Olga Lidia, SVG-OM, SVG-LPLA, SVG-PDA), PVI, ALAA, EVH (RGSV) Patient hemodynamically stable this morning, having episodes of vagal response and BP drops 20 points, SR and sinus arrythmnia noted on nuclear monitoring technician, V epicardial wires on backup rate of 50 Amiodarone bolus and drip Keep MS chest tube and monitor outputs, DC LP chest tube after ambulation Minimal oxygen requirements on 2l nasal cannula, encourage deep breathing and I- S use CXR and labs reviewed Pain management Glycemic control on insulin drip Cardiac diet, nutritional supplements Bowel regimen, + gas Strict I Os, daily weights, albmuin x 1 given for decreased UOP- monitor hourly SCDs for DVT and PPI for GI prophylaxis PT/OT Monitor patient closely in CVICU, continue supportive care Patient seen with Dr. Dee, plan of care discussed with ICU team. 08/12 Alert and oriented, up in the chair Remains on amiodarone drip for A-fib Wean dopamine off Chest x-ray reviewed. Breathing comfortably on room air Creatinine increased to 1.9, urine output 1.5 L last night after the boluses of Lasix Repeat renal panel today show creatinine 2.2. Nephrology consulted, hold off on additional Lasix Replace electrolytes Encourage I-S and mobilization Glycemic controlled Keep in CVICU for close monitoring Patient seen and plan reviewed with Dr Piper, Dr Kirkpatrick, [facility] and multidisciplinary team 08/13 Intermittently confused. Continue delirium precautions Minimal O2 requirements, wean O2 as tolerated Allow for permissive hypertension as urine output improved with higher blood pressure Monitor renal function Encourage p.o. intake, bowel regimen Remains in A-fib, heart rate fairly controlled. Amiodarone drip at 0.5 Discontinue mediastinal chest tube Glycemic control Keep in CVICU for close monitoring. Patient seen and plan reviewed with MCKAYLA Armenta multidisciplinary team Family updated at the bedside 08/14 Patient is alert and oriented, delirium precautions O2 requirements, encourage I-S Permissive hypertension for better renal perfusion Creatinine trending down, good urine output. Hold Lasix for now Encourage p.o. intake, bowel regimen Electrolyte replacement as needed Keep in CVICU today Plan for rehab. Awaiting insurance approval Patient was seen and plan reviewed with MCKAYLA Rojo and multidisciplinary team Consultants: cardiology, cardiovascular surgery at 1503 at 1026 RPT #:[id number] END OF REPORT [facility] 2022-08-14 10:00:00 [facility] ([facility]) Cardiology Progress Note REPORT#:[id number] REPORT STATUS: Signed DATE:08/14/22 TIME: 999 PATIENT: BRENNAN AHN UNIT #: [id number] ROOM/BED: [place] [address] : 42 AGE: 82 SEX: M ATTEND: Salazar Dee MD ADM AUTHOR: Catrina Shetty * ALL edits or amendments must be made on the electronic/computer document * Subjective Patient reports: No: complaints. Objective General VS/I O: 24 hour I O ending at 0700: [...] 08/14 0731 74 15 163/73 105 100 08/14 0444 68 14 100 08/14 0415 69 15 100 08/14 0353 100 Nasal 2 cannula 08/14 0345 76 14 100 08/14 0315 71 18 99 08/14 0245 69 24 99 08/14 0215 73 26 98 08/14 0200 67 14 100 08/14 0130 75 23 99 08/14 0115 84 30 91 08/14 0100 70 14 152/72 103 100 08/14 0045 69 16 100 08/14 0015 68 16 97 08/13 2355 68 16 35 08/13 2355 100 BiPAP 35 08/13 2345 70 15 98 08/13 2315 74 14 100 08/13 2245 74 17 97 08/13 2215 83 19 100 03/12 2145 100 29 94 /12 2115 90 26 100 /12 2115 99 Nasal 2 cannula 08/14 2055 82 28 156/74 106 98 03/12 2029 80 22 141/67 96 100 /2014 80 26 151/73 105 99 03/12 1999 36.5 03/1999 Nasal 2 cannula 08/14 1999 94 32 [...] 16 154/72 104 97 03/12 1600 37.1 03/ 1600 79 22 143/94 112 98 03/12 [...] 03/12 1230 81 36 122/66 89 82 03/12 1215 76 27 129/62 89 86 03/12 1200 36.9 03/12 1200 72 20 123/66 84 90 03/12 1145 73 33 136/62 89 86 03/12 1130 70 21 128/60 87 95 03/12 1115 76 32 118/58 83 95 03/12 1101 85 32 124/67 89 67 03/12 1053 81 34 102/61 76 96 PATIENT WEIGHT: Weight (lb): 219 Weight (oz): 12.81 Weight (kg): 99.700 Medications: Active Meds + DC'd Last 24 Hrs Aspirin (ASPIRIN) 81 MG DAILY PO Budesonide (PULMICORT RESPULES) 0.5 MG RTBID INH Formoterol Fumarate (PERFOROMIST) 20 MCG RTBID NEB Metoprolol Tartrate (LOPRESSOR) 25 MG Q12HR PO Albumin Human (ALBUMINAR 5% 12.5GM/250ML) 250 ML ONCE ONE IV (DC) Ipratropium [place] (ATROVENT) 500 MCG RTQ6H INH Ipratropium [place] (ATROVENT) 500 MCG Q2H PRN PRN INH Cyanocobalamin (Vitamin B-12 500 mcg tab) 500 MCG DAILY PO Ferrous Sulfate (FERROUS SULFATE) 325 MG DAILY PO Sodium Chloride (SODIUM CHLORIDE 0.9%) 250 ML ONCE ONE IV Bisacodyl (DULCOLAX) 10 MG ONCE PRN RECTAL Ipratropium [place] (ATROVENT) 500 MCG RTQ4H INH (DC) Dopamine HCl/Dextrose (DOPamine 400MG/D5W 250ML) 250 ML ASDIR IV Tramadol HCl (ULTRAM) 50 MG Q4H PRN PRN PO Clopidogrel Bisulfate (Plavix) 75 MG DAILY PO Polyethylene Glycol (MIRALAX) 17 GM DAILY PO Amiodarone HCl ( AMIODARONE HCL) 450 MG ASDIR IV (CKD) Dextrose/Water (D5%W NON-DEHP) 250 ML Pantoprazole (PROTONIX) 40 MG DAILY@0600 PO Docusate [...] ASDIR IV Dextrose/Water (DEXTROSE 5% WATER) 246 ML Glucagon (GLUCAGON) 1 MG ASDIR PRN IM Insulin Human Regular (HumuLIN R) 100 UNIT ASDIR IV (CKD) Sodium Chloride (SODIUM CHLORIDE 0.9%) 99 ML Magnesium Sulfate (MAGNESIUM SULFATE 4GM/SWFI 100ML) 100 [...] 10 MG Q6H PRN PRN IV Physical Exam General appearance: chronically ill appearing, alert, awake, no acute distress, pleasant Head/Eyes: atraumatic, PERRL Cardiovascular: CV assessment: irregularly irregular Respiratory: decreased breath sounds, on oxygen, no distress Abdomen: soft, non-tender, normal bowel sounds, no distention Genitourinary: no flank pain, no urinary catheter Lower extremity: LE assessment: edema, normal capillary refill, normal temperature Musculoskeletal: normal inspection Neuro/GATE GUARD: alert, oriented X 3 Skin: poor skin turgor, bruise/ecchymosis Right forearm Psychiatry: normal affect, normal mood Results Findings/Data: Laboratory Tests 08/14 08/13 0342 1952 Chemistry Sodium [...] (Auto) (14.0 - 32.0 %) 11.1 L Briscoe % (Auto) (4.8 - 9.0 %) 9.7 H Eos % (Auto) (0.3 - 3.7 %) 1.6 Baso % (Auto) (0.0 - 2.0 %) 0.3 Neut # (Auto) (2.0 - 7.6 x10 3/uL) 7.22 Lymph # (Auto) (1.0 - 3.8 x10 3/uL) 1.04 Briscoe # (Auto) (0.1 - 0.8 x10 3/uL) [...] (1.80 - 2.40 mg/dL) 2.49 H Radiology data: Recent Impressions: ULTRASOUND - US SOFT TISSUE TORSO 08/13 1619 Report Impression - Status: SIGNED Entered: 08/13/20222026 IMPRESSION: Moderate bilateral pleural effusions, with basilar atelectasis. Impression By: [email or web address] - Tomy Marion M.D. RADIOLOGY - XR CHEST 1 V 08/14 0648 Report Impression - Status: SIGNED Entered: 08/14/2022 0809 IMPRESSION: Grossly stable exam. Impression By: [email or web address] - Morteza Allen M.D. Results: labs reviewed, vital signs reviewed, rhythm personally rev'd Telemetry Interpretation: afib with controlled rate Diagnosis, Assessment Plan Plan discussed with: patient, son, nurse Free Text DxA P Notes Free Text DxA P Notes: 1. CAD s/p CABG x 5 (NGUYEN-LAD, SVG-Olga Lidia, SVG-OM, SVG-LPLA, SVG-PDA) continue asa, bb, plavix echo 08/12- LVEF 50-54%, left pleural effusion intolerant of statin, will consider nonstatin med such as Repatha or Nexletol outpatient post-op per CTS 2. A-fib: Paroxysmal- rate controlled s/p PVI and ARISTEO amputation on amiodarone and BB 3. HTN BP on upward trend continue metoprolol monitor 4. LADARIUS negative fluid balance per Nephrology continue supportive care Doing good post-op at 1358 at 1402 RPT #:[id number] END OF REPORT [facility] 2022-08-14 07:23:00 [facility] ([facility]) Rehab Progress Note REPORT#:[id number] REPORT STATUS: Signed DATE:08/14/22 TIME: 722 PATIENT: BRENNAN AHN UNIT #: [id number] ROOM/BED: 2202-1 : 42 AGE: 82 SEX: M ATTEND: Salazar Dee MD ADM AUTHOR: Florentino Jimenez * ALL edits or amendments must be made on the electronic/computer document * Subjective Chief complaint: Rehab follow-up Seen in CVICU Doing well. Sitting up in chair All drips off and lines out NAD Denies MORA/N/V/D/CP 14 systems reviewed and neg. except that above. Objective General VS: Vital Signs: Date Time Temp Pulse Resp B/P B/P Pulse O2 O2 Flow FiO2 Mean Ox Delivery Rate 08/14 0444 68 14 100 08/14 0415 69 15 100 08/14 0353 100 Nasal 2 cannula 08/14 0345 76 14 100 08/14 0315 71 18 99 08/14 0245 69 24 99 08/14 0215 73 26 98 08/14 0200 67 14 100 08/14 0130 75 23 99 08/14 0115 84 30 91 08/14 0100 70 14 152/72 103 100 08/14 0045 69 16 100 08/14 0015 68 16 97 08/13 2355 68 16 35 / 2355 100 BiPAP 35 08/13 2345 70 15 98 08/13 2315 74 14 100 08/13 2245 74 17 97 08/13 2215 83 19 100 08/13 2145 100 29 94 08/13 2115 90 26 100 08/13 2115 99 Nasal 2 cannula 08/136 82 28 156/74 106 98 08/13 2029 80 22 141/67 96 100 08/13 2014 80 26 151/73 105 99 08/14 1999 97.7 08/14 1999 Nasal 2 cannula 08/14 1999 94 32 147/73 104 98 08/13 1900 86 28 149/72 103 95 08/13 1846 89 31 148/73 104 97 08/13 1815 80 25 182/77 111 100 08/13 1801 89 34 158/89 114 95 08/13 1751 92 30 120/93 103 94 08/13 1700 82 30 151/75 105 98 / 1645 82 28 160/74 106 96 08/13 1630 80 17 156/72 104 98 08/13 1615 80 16 154/72 104 97 1600 98.7 03 1600 79 22 143/94 112 98 03/ 1546 87 28 140/104 117 95 03/ 1530 78 30 135/61 88 97 03/ 1515 83 28 145/67 95 96 03/ 1500 78 35 157/80 112 94 03/ 1445 76 28 138/65 93 95 03/ 1430 77 33 149/67 96 99 03/ 1416 83 26 126/95 108 92 03/ 1400 78 23 129/60 86 98 03/12 1345 82 39 131/64 92 03/ 1340 98 41 107/58 77 82 03/ 1338 76 32 138/63 91 82 03/ 1330 79 32 145/70 100 84 03/ 1315 94 37 124/63 85 83 03/12 1246 78 31 127/59 85 83 03/12 1230 81 36 122/66 89 82 03/12 1215 76 27 129/62 89 86 03/ 1200 98.4 03/ 1200 72 20 123/66 84 90 03/12 1145 73 33 136/62 89 86 03/12 1130 70 21 128/60 87 95 03/12 1115 76 32 118/58 83 95 03/ 1101 85 32 124/67 89 67 03/12 1053 81 34 102/61 76 96 03/12 0946 91 36 145/88 105 100 03/ 0931 104 28 148/67 96 88 03/12 0915 82 33 179/90 119 87 03/ 0900 82 23 181/84 120 97 03/ 0845 76 32 178/83 119 98 03/ 0830 84 29 151/72 103 98 03/ 0815 81 38 173/79 113 98 03/12 0801 82 38 144/67 96 92 03/12 0800 98.4 03/ 0800 Nasal 2 cannula / 0752 96 Room air / 0751 91 16 174/98 103 99 03/ 0730 84 37 149/68 98 97 PATIENT WEIGHT: Weight (lb): 219 Weight (oz): 12.81 Weight (kg): 99.700 Medications: Active Meds + DC'd Last 24 Hrs Aspirin (ASPIRIN) 81 MG DAILY PO Budesonide (PULMICORT RESPULES) 0.5 MG RTBID INH Formoterol Fumarate (PERFOROMIST) 20 MCG RTBID NEB Metoprolol Tartrate (LOPRESSOR) 25 MG Q12HR PO Albumin Human (ALBUMINAR 5% 12.5GM/250ML) 250 ML ONCE ONE IV (DC) Ipratropium [place] (ATROVENT) 500 MCG RTQ6H INH Ipratropium [place] (ATROVENT) 500 MCG Q2H PRN PRN INH Cyanocobalamin (Vitamin B-12 500 mcg tab) 500 MCG DAILY PO Ferrous Sulfate (FERROUS SULFATE) 325 MG DAILY PO Sodium Chloride (SODIUM CHLORIDE 0.9%) 250 ML ONCE ONE IV Bisacodyl (DULCOLAX) 10 MG ONCE PRN RECTAL Ipratropium [place] (ATROVENT) 500 MCG RTQ4H INH (DC) Dopamine HCl/Dextrose (DOPamine 400MG/D5W 250ML) 250 ML ASDIR IV Tramadol HCl (ULTRAM) 50 MG Q4H PRN PRN PO Clopidogrel Bisulfate (Plavix) 75 MG DAILY PO Polyethylene Glycol (MIRALAX) 17 GM DAILY PO Amiodarone HCl (AMIODARONE HCL) 450 MG ASDIR IV (CKD) Dextrose/Water (D5%W NON-DEHP) 250 ML Pantoprazole (PROTONIX) 40 MG DAILY@0600 PO Docusate [...] ASDIR IV Dextrose/Water (DEXTROSE 5% WATER) 246 ML Glucagon (GLUCAGON) 1 MG ASDIR PRN IM Insulin Human Regular (HumuLIN R) 100 UNIT ASDIR IV (CKD) Sodium Chloride (SODIUM CHLORIDE 0.9%) 99 ML Magnesium Sulfate (MAGNESIUM SULFATE 4GM/SWFI 100ML) 100 [...] 10 MG Q6H PRN PRN IV Functional Progress Functional progress: Trunk control: Moderate Assistance Sit to [...] PATIENT TOLERATED STANDING MARCHING X 5 MIN WITH 2 PERSON ASSIST FOR SAFETY. PATIENT NOTED WITH INTERMITTED BUCKLING OF LEFT LE. UNABLE TO AMBULATED AT THIS TIME. PATIENT VITALS TAKIN AFTER STANDING MARCHES AND NOTED AT 85/49. PATIENT REPORTS MILD DIZZNESS AND PLACED BACK IN BEDSIDE CHAIR. PATIENT LEFT WITH RN IN ROOM AND FAMILY AT BEDSIDE. Physical Exam General appearance: alert, awake Psych: alert, oriented x 3 HEENT: anicteric, sclera clear Neck: supple, no JVD Cardiovascular: S1/S2, no murmur Respiratory: aerating well, clear bilaterally Abdomen: bowel sounds present, non-distended, soft Skin: intact, no rash Musculoskeletal - general: Musculoskeletal - general: normal muscle mass, normal tone, hips 3+, decereased shoulder AROM due to sternal precautions Neuro/GATE GUARD: alert, oriented X 3, CNII-XII intact Results Findings/Data: Laboratory Tests: 08/14 08/13 0342 1952 Chemistry Sodium [...] (Auto) (14.0 - 32.0 %) 11.1 L Briscoe % (Auto) (4.8 - 9.0 %) 9.7 H Eos % (Auto) (0.3 - 3.7 %) 1.6 Baso % (Auto) (0.0 - 2.0 %) 0.3 Neut # (Auto) (2.0 - 7.6 x10 3/uL) 7.22 Lymph # (Auto) (1.0 - 3.8 x10 3/uL) 1.04 Briscoe # (Auto) (0.1 - 0.8 x10 3/uL) [...] (0.0 - 0.1 x10 3/uL) 0.00 Radiology data: Recent Impressions: ULTRASOUND - US SOFT TISSUE TORSO 08/13 1619 Report Impression - Status: SIGNED Entered: 08/13/20222026 IMPRESSION: Moderate bilateral pleural effusions, with basilar atelectasis. Impression By: [email or web address] - Tomy Marion M.D. Treatment Prophylaxis Treatment Prophylaxis Drain(s)/tube(s): Drain(s)/tube(s): chest, urinary catheter Diagnosis, Assessment Plan Free Text A P: Multivessel CAD Status post CABG x5 Muscle weakness Unsteady gait Impaired ADLs, mobility Alzheimer's dementia Postoperative anemia CKD History of A-fib HTN Moderate bilateral pleural effusions Plan: Continue PT/OT Out of bed to chair Work on strength, bed mobility, transfers, gait Monitor for left knee buckling Increase endurance Fall precautions Monitor p.o. intake and nutrition Strict decubitus precautions Monitor labs closely Monitor telemetry. Advance therapies as tolerated.. Excellent candidate IRF consulted. [employer] Medicare. Will require insurance approval Total time was 33 minutes > 50% with patient performing physical examination, discussing plan of care, goals, therapies, progress, medications, labs. All questions answered Consultants: cardiology, cardiovascular surgery Rehab attestation: . at 1312 RPT #:[id number] END OF REPORT [facility] 2022-08-13 23:02:00 [facility] Internal Medicine Prog. Note REPORT#:[id number] REPORT STATUS: Signed DATE:08/13/22 TIME: 2301 PATIENT: BRENNAN AHN UNIT #: [id number] ROOM/BED: 2201 : 42 AGE: 82 SEX: M ATTEND: Salazar Dee MD ADM AUTHOR: Devin Fox DO * ALL edits or amendments must be made on the electronic/computer document * Subjective Chief complaint: pt c/o mild low back pain sitting in chair Review of Systems All systems rev neg: except as marked Objective General VS/I O: Vital Signs Date Temp Pulse Resp B/P B/P Mean Pulse Ox FiO2 08/12-08/13 98.0-98.7 70-104 16-43 102-182/58-104 76-120 67-100 35 [...] scale Measurement Method PATIENT WEIGHT: Weight (lb): 219 Weight (oz): 12.81 Weight (kg): 99.700 Medications: Active Meds + DC'd Last 24 Hrs Aspirin (ASPIRIN) 81 MG DAILY PO Budesonide (PULMICORT RESPULES) 0.5 MG RTBID INH Formoterol Fumarate (PERFOROMIST) 20 MCG RTBID NEB Metoprolol Tartrate (LOPRESSOR) 25 MG Q12HR PO Albumin Human (ALBUMINAR 5% 12.5GM/250ML) 250 ML ONCE ONE IV (DC) Ipratropium Kingston (ATROVENT) 500 MCG RTQ6H INH Ipratropium [place] (ATROVENT) 500 MCG Q2H PRN PRN INH Cyanocobalamin (Vitamin B-12 500 mcg tab) 500 MCG DAILY PO Ferrous Sulfate (FERROUS SULFATE) 325 MG DAILY PO Sodium Chloride (SODIUM CHLORIDE 0.9%) 250 ML ONCE ONE IV Bisacodyl (DULCOLAX) 10 MG ONCE PRN RECTAL Ipratropium [place] (ATROVENT) 500 MCG RTQ4H INH (DC) Dopamine HCl/Dextrose (DOPamine 400MG/D5W 250ML) 250 ML ASDIR IV Tramadol HCl (ULTRAM) 50 MG Q4H PRN PRN PO Clopidogrel Bisulfate (Plavix) 75 MG DAILY PO Polyethylene Glycol (MIRALAX) 17 GM DAILY PO Amiodarone HCl (AMIODARONE HCL) 450 MG ASDIR IV (CKD) Dextrose/Water (D5%W NON-DEHP) 250 ML Pantoprazole (PROTONIX) 40 MG DAILY@0600 PO Docusate [...] ASDIR IV Dextrose/Water (DEXTROSE 5% WATER) 246 ML Glucagon (GLUCAGON) 1 MG ASDIR PRN IM Insulin Human Regular (HumuLIN R) 100 UNIT ASDIR IV (CKD) Sodium Chloride (SODIUM CHLORIDE 0.9%) 99 ML Magnesium Sulfate (MAGNESIUM SULFATE 4GM/SWFI 100ML) 100 [...] 10 MG Q6H PRN PRN IV Physical Exam General appearance: alert, awake, oriented Head/Eyes: EOMI, PERRLA Neck: non-tender, no JVD Cardiovascular: irregular rhythm, normal heart sounds Respiratory: aerating well, clear to auscultation Abdomen: non-tender, soft Extremities: Extremities: edema, moves all Neuro/GATE GUARD: alert, oriented x 3, CNII-XII intact Results Findings/Data: Laboratory Tests 08/13/22 0400: [Embedded Image Not Available] Laboratory Tests 08/13 0400 Chemistry Sodium (134 - [...] (Auto) (14.0 - 32.0 %) 10.6 L Briscoe % (Auto) (4.8 - 9.0 %) 9.7 H Eos % (Auto) (0.3 - 3.7 %) 0.5 Baso % (Auto) (0.0 - 2.0 %) 0.2 Neut # (Auto) (2.0 - 7.6 x10 3/uL) 8.69 H Lymph # (Auto) (1.0 - 3.8 x10 3/uL) 1.18 Briscoe # (Auto) (0.1 - 0.8 x10 3/uL) [...] (0.0 - 0.1 x10 3/uL) 0.00 Radiology data: Recent Impressions: RADIOLOGY - XR CHEST 1 V 08/13 0726 Report Impression - Status: SIGNED Entered: 08/13/2022 0755 IMPRESSION: 1. Residual dense opacification of each lung base, primarily on the left side. 2. Slight improvement of left basilar opacity since the most recent exam. 3. Probable small left pleural effusion. 4. Stable moderate cardiomegaly without significant vascular congestion. Impression By: [email or web address] - Jose David Lazar M.D. ULTRASOUND - US SOFT TISSUE TORSO 08/13 1619 Report Impression - Status: SIGNED Entered: 08/13/20222026 IMPRESSION: Moderate bilateral pleural effusions, with basilar atelectasis. Impression By: [email or web address] - Tomy Marion M.D. Treatment Prophylaxis Treatment Prophylaxis Drain(s)/tube(s): Drain(s)/tube(s): chest, urinary catheter Diagnosis, Assessment Plan Hospital course to date: 82-year-old male with past medical history of hypertension, atrial fibrillation, supraventricular tachycardia status post ablation who was admitted with reports of multivessel coronary artery disease found on a cardiac catheterization done at [facility]. Patient was transferred to [facility] for CABG. 1. Coronary artery disease -Status post CABG x5, ALAA, PVI -Continue metoprolol, Plavix, aspirin -Chest tubes in place and draining - 2. Atrial fibrillation -Continue IV amiodarone for rate control -Continue metoprolol -Monitor and review telemetry 3. Debility -.-PT/OT 4. ARF - cr 1.3-1.9-2.2 - post op, post lasix therefore likely pre-renal - baseline CKD is suspected - nephro consulted 5. anemia - acute, post op expecteed - monitor and transfuse if hg <7 dispo: possible INPT REHAB - discussed with Pts daughter in details total time spent 35mins Problem List/A P: 1. S/P CABG x 5 2. CAD (coronary artery disease) 3. Postoperative pulmonary dysfunction after cardiac surgery 4. HTN (hypertension) Consultants: cardiology, cardiovascular surgery at 7875 RPT #:[id number] END OF REPORT [facility] 2022-08-13 11:01:00 [facility] ([facility] Cardiothoracic Surgery Prog REPORT#:[id number] REPORT STATUS: Signed DATE:08/13/22 TIME: 1101 PATIENT: BRENNAN AHN UNIT #: [id number] ROOM/BED: [place] [address] : 42 AGE: 82 SEX: M ATTEND: Salazar Dee MD ADM AUTHOR: Shiloh Pimentel CHIEF ACCOUNTANT * ALL edits or amendments must be made on the electronic/computer document * General Post-op: day 3 Status post: 08/10/22 CABG x 5 (NGUYEN-LAD, SVG-Olga Lidia, SVG-OM, SVG-LPLA, SVG-PDA) PVI ALAFacundo EVH (RGSV) Subjective Chief complaint: Follow-up CABG Review of Systems Constitutional: Denies: fatigue, fever, generalized weakness, malaise. Skin: Denies: itching. Allergy/Immun: Denies: anaphylaxis, hives, itching. Eyes: Denies: itching, diplopia, eye pain. ENT: Denies: nose bleeding, sore throat, throat pain, toothache. Respiratory: Denies: JANG (dyspnea on exertion), pneumonia, SOB. Cardiovascular: Denies: chest pain, palpitations. GI: Denies: abdominal pain, GERD, nausea, vomiting. Musculoskeletal: Denies: extremity pain, extremity swelling, joint pain. Heme: Denies: bleeding, bruising. Neuro: Denies: dizziness, headache, lightheaded, syncope. All systems rev neg: except as marked Objective General VS/I O Vital Signs Date Temp Pulse Resp B/P B/P [...] scale Measurement Method PATIENT WEIGHT: Weight (lb): 219 Weight (oz): 12.81 Weight (kg): 99.700 Physical Exam General appearance: alert, oriented, pleasant, mental status normal, no respiratory distress Wound/incision: Location: sternal Site condition: dressing clean dry, dressing intact HEENT: anicteric, mucosal membranes moist Neck: full range of motion, non-tender Cardiovascular: BP/pulses equal bilat., regular rate rhythm Respiratory: aerating well, symmetric expansion, no distress Abdomen: soft, non-tender, no distention Genitourinary: longo Extremities: dry, moves all Musculoskeletal: full range of motion Neuro/GATE GUARD: alert, oriented X 3 Skin: dry, intact Psychiatry: anxious Current Medications Medications: Active Meds + DC'd Last 24 Hrs Ipratropium Kingston (ATROVENT) 500 MCG RTQ6H INH Ipratropium [place] (ATROVENT) 500 MCG Q2H PRN PRN INH Cyanocobalamin (Vitamin B-12 500 mcg tab) 500 MCG DAILY PO Ferrous Sulfate (FERROUS SULFATE) 325 MG DAILY PO Sodium Chloride (SODIUM CHLORIDE 0.9%) 250 ML ONCE ONE IV Bisacodyl (DULCOLAX) 10 MG ONCE PRN RECTAL Magnesium Hydroxide (MILK OF MAGNESIA) 30 ML ONCE PRN PO (DC) Ipratropium [place] (ATROVENT) 500 MCG RTQ4H INH (DC) Dopamine HCl/Dextrose (DOPamine 400MG/D5W 250ML) 250 ML ASDIR IV Tramadol HCl (ULTRAM) 50 MG Q4H PRN PRN PO Clopidogrel Bisulfate (Plavix) 75 MG DAILY PO Polyethylene Glycol (MIRALAX) 17 GM DAILY PO Amiodarone HCl (AMIODARONE HCL) 450 MG ASDIR IV (CKD) Dextrose/Water (D5%W NON-DEHP) 250 ML Pantoprazole (PROTONIX) 40 MG DAILY@0600 PO Docusate [...] ASDIR IV Dextrose/Water (DEXTROSE 5% WATER) 246 ML Glucagon (GLUCAGON) 1 MG ASDIR PRN IM Insulin Human Regular (HumuLIN R) 100 UNIT ASDIR IV (CKD) Sodium Chloride (SODIUM CHLORIDE 0.9%) 99 ML Magnesium Sulfate (MAGNESIUM SULFATE 4GM/SWFI 100ML) 100 [...] (APRESOLINE) 10 MG Q6H PRN PRN IV Results Findings/Data: Laboratory Tests 08/13 08/12 0400 1443 Chemistry Sodium [...] (Auto) (14.0 - 32.0 %) 10.6 L Briscoe % (Auto) (4.8 - 9.0 %) 9.7 H Eos % (Auto) (0.3 - 3.7 %) 0.5 Baso % (Auto) (0.0 - 2.0 %) 0.2 Neut # (Auto) (2.0 - 7.6 x10 3/uL) 8.69 H Lymph # (Auto) (1.0 - 3.8 x10 3/uL) 1.18 Briscoe # (Auto) (0.1 - 0.8 x10 3/uL) [...] (0.0 - 0.1 x10 3/uL) 0.00 Radiology data: Recent Impressions: RADIOLOGY - XR CHEST 1 V 08/13 2045 Report Impression - Status: SIGNED Entered: 08/13/2022 4642 IMPRESSION: 1. Residual dense opacification of each lung base, primarily on the left side. 2. Slight improvement of left basilar opacity since the most recent exam. 3. Probable small left pleural effusion. 4. Stable moderate cardiomegaly without significant vascular congestion. Impression By: [email or web address] - Jose David Lazar M.D. Treatment Prophylaxis Treatment Prophylaxis Oxygen: nasal cannula Lines: arterial, CVC, peripheral Drain(s)/tube(s): Drain(s)/tube(s): chest, urinary catheter Diagnosis, Assessment Plan Hospital course to date: 82 year old with PMH of hypertension, atrial fibrillation, On Eliquis, Hx of SVT ablation 20 years ago transferred to [facility] with new findings of multi-vessel CAD. He reports he was woken from Sleep on Sunday AM with COmplaints of chest pains. EMS aas called and patient was taken to [facility]. He underwent LHC and found to have multi-vessel CAD by Dr Sanchez. Patient was transferred to [facility] for CABG. Patient lives independently. Daughter is at bedside. Patient reports last dose of Elliquis was Saturday AM. Echo was done at [facility] showing EF 55%, Mild MR, Mild AI, mild LVH. According to his records, he has a hx of Chronic kidney disease with baseline Creatine reportedly 1.5. He does report he has seen a renal MD in the past. Assessment/ Plan 1) CAD, Mutli-vessel 2) hypertension Continue BBLKR Add Norvasc 5 mg 3) Atrial fibrillation. Last dose of Eliquis Sunday Obtain EKG 4) BPH Continue flomax Workup for CABG underway. Patient was seen and examined by Dr Dee. Coronary artery bypass surgery was discussed with the patient. The risk of the operation, including the STS score, cristian of blleding, infection, heart attack, stroke, Tracheostomy etc discussed with the patient. CT chest, carotid US, Vein mapping ordered. 08/11/22 POD 1 s/p CABG x 5 (NGUYEN-LAD, SVG-Olga Lidia, SVG-OM, SVG-LPLA, SVG-PDA), PVI, ALAA, EVH (RGSV) Patient hemodynamically stable this morning, having episodes of vagal response and BP drops 20 points, SR and sinus arrythmnia noted on nuclear monitoring technician, V epicardial wires on backup rate of 50 Amiodarone bolus and drip Keep MS chest tube and monitor outputs, DC LP chest tube after ambulation Minimal oxygen requirements on 2l nasal cannula, encourage deep breathing and I- S use CXR and labs reviewed Pain management Glycemic control on insulin drip Cardiac diet, nutritional supplements Bowel regimen, + gas Strict I Os, daily weights, albmuin x 1 given for decreased UOP- monitor hourly SCDs for DVT and PPI for GI prophylaxis PT/OT Monitor patient closely in CVICU, continue supportive care Patient seen with Dr. Dee, plan of care discussed with ICU team. 08/12 Alert and oriented, up in the chair Remains on amiodarone drip for A-fib Wean dopamine off Chest x-ray reviewed. Breathing comfortably on room air Creatinine increased to 1.9, urine output 1.5 L last night after the boluses of Lasix Repeat renal panel today show creatinine 2.2. Nephrology consulted, hold off on additional Lasix Replace electrolytes Encourage I-S and mobilization Glycemic controlled Keep in CVICU for close monitoring Patient seen and plan reviewed with Dr Piper, Dr MCKAYLA Kirkpatrick and multidisciplinary team 08/13 Intermittently confused. Continue delirium precautions Minimal O2 requirements, wean O2 as tolerated Allow for permissive hypertension as urine output improved with higher blood pressure Monitor renal function Encourage p.o. intake, bowel regimen Remains in A-fib, heart rate fairly controlled. Amiodarone drip at 0.5 Discontinue mediastinal chest tube Glycemic control Keep in CVICU for close monitoring. Patient seen and plan reviewed with MCKAYLA Armenta multidisciplinary team Family updated at the bedside Consultants: cardiology, cardiovascular surgery at 1231 at 1511 RPT #:[id number] END OF REPORT [facility] 2022-08-13 09:25:00 [facility] Cardiology Progress Note REPORT#:[id number] REPORT STATUS: Signed DATE:08/13/22 TIME: 924 PATIENT: BRENNAN AHN UNIT #: [id number] ROOM/BED: [place] [address] : 42 AGE: 82 SEX: M ATTEND: Salazar Dee MD ADM AUTHOR: Guera Marion NP * ALL edits or amendments must be made on the electronic/computer document * Subjective Chief complaint: sitting in chair Objective General VS/I O: Laboratory Tests 08/13/22 0400: [Embedded Image Not Available] 08/12/22 1056: [Embedded Image Not Available] 08/12/22 0145: [Embedded Image Not Available] Current Medications Sig/Ariana Start time Last Medication Dose Route Stop Time Status Admin Ipratropium Kingston 500 MCG Q2H PRN PRN 08/13 1441 AC INH 09/12 1440 Cyanocobalamin 500 MCG DAILY 08/13 09 AC PO 09/12 0859 Ferrous Sulfate 325 MG DAILY 08/13 09 AC PO 09/12 0859 Sodium Chloride 250 ML ONCE ONE 08/12 1715 AC IV 08/23 0314 Bisacodyl 10 MG ONCE PRN 08/12 1200 AC RECTAL 09/11 1159 Magnesium Hydroxide 30 ML ONCE PRN 08/12 1200 DC 08/12 PO 1041 Ipratropium [place] 500 MCG RTQ4H 08/12 0800 AC 08/13 [...] 0744 2251 Pantoprazole 40 MG DAILY@0600 08/11 06 AC 08/13 PO 09/10 0559 0637 Docusate Sodium 100 MG BID 08/10 2100 AC 08/12 PO 09/09 205 205 Metoprolol Tartrate 12.5 MG Q12HR 08/10 2100 AC 08/12 PO 09/09 205 2100 Mupirocin 1 APPLIC BID 08/10 2100 AC 08/12 NASAL 08/15 0901 2101 Sennosides 17.2 MG BEDTIME 08/10 2100 AC 08/12 PO 09/09 205 2100 Aspirin 81 MG DAILY 08/10 204 AC 08/12 PO 09/09 2040 1042 Amiodarone HCl 200 MG TID 08/10 1500 AC 08/12 PO 09/09 1459 2100 Acetaminophen 650 MG Q4H PRN PRN [...] 96 08/13 0636 92 134/95 110 97 08/13 0600 76 16 174/77 111 96 / 0530 76 171/77 110 100 08/13 0500 75 158/77 109 100 08/13 0430 76 20 158/80 112 100 08/13 0415 79 16 100 08/13 0400 36.7 74 16 163/79 107 100 Room air 08/13 0400 74 16 163/79 113 100 03/12 [...] 83 22 132/84 100 96 Room air 03/11 2200 83 22 132/84 98 96 03/11 2130 87 29 168/87 119 97 03/11 2112 93 Room air 21 03/11 2100 80 26 160/74 106 96 03/11 2030 82 28 163/74 106 96 03/11 1999 37.1 03/11 1999 36.6 85 32 161/73 106 90 03/11 [...] 0 03/11 1525 98 Room air 21 03/11 1501 83 35 105/90 95 96 03/11 1430 74 36 117/56 80 98 03/11 1408 77 26 97 03/11 1400 74 34 125/60 86 95 03/11 1345 74 15 97 03/11 1330 69 18 103/53 76 96 03/11 1320 76 34 114/53 77 98 03/11 1315 85 48 03/11 1300 73 40 98/56 74 96 03/11 1248 68 30 90/55 69 96 08/12 1245 74 34 73/36 48 91 / 1230 68 27 96/53 68 95 / 1216 97 Room air 21 08/12 1215 71 32 95/54 72 97 / 1200 36.4 72 28 98/54 72 95 0 / 1145 73 40 91/54 67 93 / 1130 98 24 95 / 1115 83 33 130/67 92 97 / 1100 90 38 125/58 84 97 / 1045 100 29 125/60 86 96 / 1036 104 39 92/50 65 89 / 1030 98 43 88/65 71 97 / 1015 102 35 96 / 1000 99 27 103/51 73 93 /11 0946 101 30 115/57 82 94 / 0930 107 43 120/58 84 91 PATIENT WEIGHT: Weight (lb): 219 Weight (oz): 12.81 Weight (kg): 99.700 Physical Exam General appearance: alert, awake, oriented, no acute distress, pleasant Head/Eyes: atraumatic, PERRL Cardiovascular: CV assessment: irregularly irregular Respiratory: rhonchi Abdomen: soft, non-tender, normal bowel sounds, no distention Lower extremity: LE assessment: edema, normal capillary refill, normal temperature Neuro/GATE GUARD: alert, oriented X 3 Skin: poor skin turgor Results Radiology data: Recent Impressions: RADIOLOGY - XR CHEST 1 V 08/13 0726 [...] - Jose David Lazar M.D. Diagnosis, Assessment Plan Consultants: cardiology, cardiovascular surgery Free Text DxA P Notes Free Text DxA P Notes: 1. CAD s/pCABG x 5 (NGUYEN-LAD, SVG-Olga Lidia, SVG-OM, SVG-LPLA, SVG-PDA) continue asa, bb, plavix echo 08/12- LVEF 50-54%, left pleural effusion off dopamine post-op per CTS 2. A-fib: Paroxysmal- rate controlled s/p PVI and ARISTEO amputation on amiodarone, bb 3. HTN monitor post-op 4. LADARIUS per Nephrology continue supportive care at 0929 at 1058 RPT #:[id number] END OF REPORT [facility] 2022-08-13 08:30:00 [facility] ([facility]) Critical Care Progress Note REPORT#:[id number] REPORT STATUS: Signed DATE:08/13/22 TIME: 829 PATIENT: BERNNAN AHN UNIT #: [id number] ROOM/BED: [place] [address] : 42 AGE: 82 SEX: M ATTEND: Salazar Dee MD ADM AUTHOR: Breezy Nance MD * ALL edits or amendments must be made on the electronic/computer document * Subjective Chief complaint: CABG HPI: 82-year-old male with history of hypertension, A-fib on [...] 2 mics of epinephrine and insulin drip. Comments: The patient offers no new complaints No SOB Chest x-ray shows decreased congestion and left effusion. Improved urine output with increased blood pressure Creatinine trending up slightly Decreased chest tube output Afebrile Review of Systems Free Text ROS Notes Free Text ROS Notes: 12 point Review of Systems was performed to the extent possible including discussion with the nursing staff and review of vital signs and all data. All systems negative other than pertinent negative/positive findings mentioned in the interval history section. Objective General VS/I O Last Documented: Result Date Time Pulse Ox 94 08/16 2015 Pulse 83 08/16 2015 O2 Delivery Room air 08/16 2015 B/P 117/58 08/15 1801 B/P Mean 83 08/15 1801 Resp 36 08/15 1801 Temp 36.6 08/15 1600 FiO2 21 08/15 0339 O2 Flow Rate 2 08/14 0800 24 hour I O ending at 0700: 08/15 0700 08/14 1900 Intake Total 750.00 240 Output Total 700 325 Balance 50.00 -85 Intake, IV 250.00 Intake, Oral 500 240 Number 1 Bowel Movements Number 2 Incontinent Voids Number Voids 3 2 Output, Urine 700 325 PATIENT WEIGHT: Weight (lb): 222 Weight (oz): 7.14 Weight (kg): 100.900 Medications: Active Meds + DC'd Last 24 Hrs Ipratropium Kingston (ATROVENT) 500 MCG Q2H PRN PRN INH Cyanocobalamin (Vitamin B-12 500 mcg tab) 500 MCG DAILY PO Ferrous Sulfate (FERROUS SULFATE) 325 MG DAILY PO Sodium Chloride (SODIUM CHLORIDE 0.9%) 250 ML ONCE ONE IV Bisacodyl (DULCOLAX) 10 MG ONCE PRN RECTAL Magnesium Hydroxide (MILK OF MAGNESIA) 30 ML ONCE PRN PO (DC) Ipratropium [place] (ATROVENT) 500 MCG RTQ4H INH Dopamine HCl/Dextrose (DOPamine 400MG/D5W 250ML) 250 ML ASDIR IV Tramadol HCl (ULTRAM) 50 MG Q4H PRN PRN PO Clopidogrel Bisulfate (Plavix) 75 MG DAILY PO Polyethylene Glycol (MIRALAX) 17 GM DAILY PO Amiodarone HCl (AMIODARONE HCL) 450 MG ASDIR IV (CKD) Dextrose/Water (D5%W NON-DEHP) 250 ML Pantoprazole (PROTONIX) 40 MG DAILY@0600 PO Docusate [...] ASDIR IV Dextrose/Water (DEXTROSE 5% WATER) 246 ML Glucagon (GLUCAGON) 1 MG ASDIR PRN IM Insulin Human Regular (HumuLIN R) 100 UNIT ASDIR IV (CKD) Sodium Chloride (SODIUM CHLORIDE 0.9%) 99 ML Magnesium Sulfate (MAGNESIUM SULFATE 4GM/SWFI 100ML) 100 [...] (APRESOLINE) 10 MG Q6H PRN PRN IV Results Findings/data: Laboratory Tests 08/13 08/12 08/12 08/12 0400 1443 [...] (Auto) (14.0 - 32.0 %) 10.6 L Briscoe % (Auto) (4.8 - 9.0 %) 9.7 H Eos % (Auto) (0.3 - 3.7 %) 0.5 Baso % (Auto) (0.0 - 2.0 %) 0.2 Neut # (Auto) (2.0 - 7.6 x10 3/uL) 8.69 H Lymph # (Auto) (1.0 - 3.8 x10 3/uL) 1.18 Briscoe # (Auto) (0.1 - 0.8 x10 3/uL) [...] 0.1 x10 3/uL) 0.00 Laboratory Tests 08/13/22 0400: [Embedded Image Not Available] 08/12/22 1056: [Embedded Image Not Available] Radiology data Recent Impressions: RADIOLOGY - XR CHEST 1 V 08/13 8706 Report Impression - Status: SIGNED Entered: 08/13/2022 0752 IMPRESSION: 1. Residual dense opacification of each lung base, primarily on the left side. 2. Slight improvement of left basilar opacity since the most recent exam. 3. Probable small left pleural effusion. 4. Stable moderate cardiomegaly without significant vascular congestion. Impression By: [email or web address] - Jose David Lazar M.D. Free Text Obj Notes Free Text Obj Notes: GEN: Patient is calm and in no distress. NECK: Supple, no JVD or thrush. No adenopathy. LUNGS: Clear lungs, no wheezes, no rales or crackles. CV: Irregularly irregular, rate controlled, no murmurs are heard. No S3 or rubs. GI: Abdomen is soft, not tender. Bowel sounds are present. EXT/Musc: No edema. No clubbing or cyanosis noted. Skin is warm. NEURO: Awake, alert and oriented x 3. No focal findings. Treatment Prophylaxis Treatment Prophylaxis Drain(s)/tube(s): Drain(s)/tube(s): chest, urinary catheter Diagnosis, Assessment Plan Problem list/A P: 1. CAD (coronary artery disease) 2. Postoperative pulmonary dysfunction after cardiac surgery 3. S/P CABG x 5 Free text A P: 82-year-old male with history of hypertension, A-fib on [...] Appears intact, keep off sedation, multimodal pain control Respiratory: Sats well, CPAP as tolerated, plan for extubation, ABG and CXR reviewed Cardiovascular: HD unstable on vasopressors, attempt to wean, keep CTs to suction Renal: strict I/Os, monitor Cr and electrolytes, LA clear, judicious resuscitation GI: bedside swallow then oral diet after extubation, bowel regimen, monitor LFTs ID: reactive leukocytosis, trend WBC, continue periop antibiotics per protocol Hem: acute blood loss anemia, monitor Hgb and CTs output, transfuse as needed Endo: Blood glucose control with insulin gtt per protocol Misc: PTOT consult, DVT and GI prophylaxis with DAPT and PPI 08/11 Continue supplemental oxygen and titrate FiO2 to keep saturation more than 90%. Inhaled bronchodilators as needed IS and LVEP Judicious pain control Aspirin and Plavix Amiodarone p.o. Metoprolol Amiodarone bolus and drip 1 albumin bolus 1 dose of Lasix 20 mg Dopamine drip at 3 mics Monitor kidney function and trend creatinine Monitor and replete electrolytes Strict I O's Cardiac diet with bowel regimen Blood glucose control, sliding scale insulin VTE prophylaxis, DOAC's Stress ulcer prophylaxis, Protonix Discussed with ICU team and cardiac surgery Critical care time 41 minutes 08/12 Continue supplemental oxygen and titrate FiO2 to keep saturation more than 90%. Inhaled bronchodilators as needed IS and LVEP Continue monitoring chest tube output, increased output after walking Judicious pain control Echocardiogram is done, results are pending Aspirin and Plavix Amiodarone p.o. Metoprolol Amiodarone bolus and drip Off dopamine Holding off on Lasix for now per nephrology Monitor kidney function and trend creatinine Monitor and replete electrolytes Strict I O's Cardiac diet with bowel regimen Blood glucose control, sliding scale insulin VTE prophylaxis, DOAC's Stress ulcer prophylaxis, Protonix Discussed with ICU team, nephrology and cardiac surgery Critical care time 39 minutes 08/13 Continue supplemental oxygen and titrate FiO2 to keep saturation more than 90%. Inhaled bronchodilators as needed IS and LVEP Continue monitoring chest tube output, DC mediastinal chest tube Left chest ultrasound Judicious pain control Echocardiogram is done, EF of 50% and reduced RV function 1 bolus of albumin Aspirin and Plavix Amiodarone p.o. Metoprolol Off amiodarone drip Maintain higher blood pressure for better perfusion and better urine output Monitor kidney function and trend creatinine Monitor and replete electrolytes Strict I O's Cardiac diet with bowel regimen Blood glucose control, sliding scale insulin VTE prophylaxis, DOAC's Stress ulcer prophylaxis, Protonix Discussed with ICU team, nephrology and cardiac surgery Critical care time 37 minutes Consultants: cardiology, cardiovascular surgery at 2123 RPT #:[id number] END OF REPORT [facility] 2022-08-13 07:08:00 [facility] ([facility]) Adult General Consultation REPORT#:[id number] REPORT STATUS: Signed DATE:08/13/22 TIME: 707 PATIENT: BRENNAN AHN UNIT #: [id number] ROOM/BED: [place] [id number] : 42 AGE: 82 SEX: M ATTEND: Salazar Dee MD ADM AUTHOR: Florentino Jimenez * ALL edits or amendments must be made on the electronic/computer document * History of Present Illness Reason for consult: PMR consultation Chief complaint: Debility post CABG HPI: 82-year-old male with PMH of Alzheimer's dementia, CKD, HTN, atrial fibrillation , history of SVT/ablation who was transferred to [facility] after being found to have multivessel coronary artery disease. Patient initially with was at home and developed chest pains. He was brought to [facility] and underwent left heart cath which revealed multivessel CAD. Patient evaluated here by cardiothoracic surgery and underwent CABG x5 on 08/10. Patient with postoperative anemia and significant impairment in mobility. We have been asked to see him in consultation for physical medicine and rehabilitation evaluation. History - Adult longitudinal Past medical history: Reports: Atrial fibrillation, Coronary artery disease, Dementia, Kidney disease/ stones. Additional surgical history: Crevial Laminectomy Family history: Reports: Hypertension. Alcohol use: Denies EtOH use Drug use: Denies recreational drugs Medications: Home Medications: Medication Dose/Rte/Freq Days Qty Entered Last Max Daily Dose Reviewed METOPROLOL TARTRATE 50 MG PO BID 08/09/22 08/09/22 (LOPRESSOR) 1903 1904 Strength: 50 MG TAB hydrALAZINE (APRESOLINE) 20 MG IV 08/09/22 08/09/22 Strength: 20 MG/ML AMPUL Q4H PRN PRN SBP 1904 1904 GREATER THAN 180 Current Hospital Medications: Ahfs Category Unknown Sig/Ariana Start time Last Medication Dose Route Stop Time Status Admin Melatonin 6 MG BEDTIME PRN PRN 08/10 0015 AC 08/10 (Melatonin) PO 09/09 0014 0022 Autonomic Drugs Sig/Ariana Start time Last Medication Dose Route Stop Time Status Admin Ipratropium Kingston 500 MCG Q2H PRN PRN 08/13 1441 AC (ATROVENT) INH 09/12 1440 Ipratropium [place] 500 MCG RTQ4H 08/12 0800 AC 08/13 (ATROVENT) INH 09/11 0759 0338 Dopamine HCl/Dextrose 250 ML ASDIR 08/11 1445 AC 08/11 (DOPamine 400MG/D5W IV 09/10 1444 1444 250ML) Epinephrine 4 MG ASDIR 08/10 1445 AC (ADRENALIN CHLORIDE) IV 09/09 1444 Dextrose/Water 246 ML (DEXTROSE 5% WATER) Norepinephrine 250 ML TITRATE 08/10 1445 AC Bitartrate IV 09/09 1444 (NOREPINEPHRINE 8 MG/ NS 250 ML) Blood Formation,Coagulation Sig/Ariana Start time Last Medication Dose Route Stop Time Status Admin Ferrous Sulfate 325 MG DAILY 08/13 09 AC (FERROUS SULFATE) PO 09/12 0859 Clopidogrel Bisulfate 75 MG DAILY 08/11 0900 AC 08/12 (Plavix) PO 09/10 0859 1042 Cardiovascular Drugs Sig/Ariana Start time Last Medication Dose Route Stop Time Status Admin Amiodarone HCl 450 MG ASDIR 08/11 0745 CKD 08/12 (AMIODARONE HCL) IV 09/10 0744 2251 Dextrose/Water 250 ML (D5%W NON-DEHP) Metoprolol Tartrate 12.5 MG Q12HR 08/10 2100 AC 08/12 (LOPRESSOR) PO 09/09 2058 2100 Amiodarone HCl 200 MG TID 08/10 1500 AC 08/12 (CORDARONE) PO 09/09 145 2100 Nitroglycerin/ 250 ML ASDIR 08/10 1445 AC Dextrose IV 09/09 1444 (NITROGLYCERIN 50,000MCG/D5W 250ML) Hydralazine HCl 10 MG Q6H PRN PRN 08/09 1930 AC 08/09 (APRESOLINE) IV 09/08 192 2208 Central Nervous System Agents Sig/Ariana Start time Last Medication Dose Route Stop Time Status Admin Tramadol HCl 50 MG Q4H PRN PRN 08/11 929 AC 08/11 (ULTRAM) PO 08/16 928 09 Aspirin 81 MG DAILY 08/10 2040 AC 08/12 (ASPIRIN) PO 09/09 204 1042 Acetaminophen 650 MG Q4H PRN PRN [...] 08/10 1445 AC (CALCIUM CHLORIDE) IV 09/09 1444 Dextrose/Water 125 ML ASDIR PRN 08/10 1445 CKD (DEXTROSE 10% IN IV 09/09 1444 WATER) Dextrose/Water 250 ML ASDIR PRN 08/10 1445 CKD (DEXTROSE 10% IN IV 09/09 1444 WATER) Potassium Chloride 100 ML ASDIR PRN 08/10 1445 AC 08/12 (KCL 20MEQ/SWFI IV 09/09 1444 0253 100ML) Sodium Bicarbonate 50 MEQ ASDIR PRN 08/10 1445 AC (SODIUM BICARBONATE) IV 09/09 1444 Sodium Chloride 1,000 ML .Q20H 08/10 1445 AC 08/11 (SODIUM CHLORIDE IV 09/09 1444 0753 0.9%) Sodium Chloride 250 ML Q24H 08/10 1445 AC (SODIUM CHLORIDE IV 09/09 1444 0.9%) Gastrointestinal Drugs Sig/Ariana Start time Last Medication Dose Route Stop Time Status Admin Bisacodyl 10 MG ONCE PRN 08/12 1200 AC (DULCOLAX) RECTAL 09/11 1159 Magnesium Hydroxide 30 ML ONCE PRN 08/12 1200 DC 08/12 (MILK OF MAGNESIA) PO 1041 Polyethylene Glycol 17 GM DAILY 08/11 09 AC 08/12 (MIRALAX) PO 09/10 0859 1043 Pantoprazole 40 MG DAILY@0600 08/11 0600 AC 08/13 (PROTONIX) PO 09/10 0559 0637 Docusate Sodium 100 MG BID 08/10 2099 AC 08/12 (COLACE) PO 09/09 Sennosides 17.2 MG BEDTIME 08/10 2100 AC 08/12 (Senna Lax 8.6 MG PO 09/09 2058 2100 TABLET) Ondansetron HCl 4 MG Q6H PRN PRN 08/10 1445 AC (ZOFRAN) IV 09/09 1444 Hormones And Synthetic Substit Sig/Ariana Start time Last Medication Dose Route Stop Time Status Admin Glucagon 1 MG ASDIR PRN 08/10 1445 AC (GLUCAGON) IM 09/09 1444 Insulin Human Regular 100 UNIT ASDIR 08/10 1445 CKD (HumuLIN R) IV 09/09 1444 Sodium Chloride 99 ML (SODIUM CHLORIDE 0.9%) Skin And Mucous Membrane Agent Sig/Ariana Start time Last Medication Dose Route Stop Time Status Admin Mupirocin 1 APPLIC BID 08/10 2100 AC 08/12 (BACTROBAN 2% 22 GM NASAL 08/15 0901 210 OINTMENT) Vitamins Sig/Ariana Start time Last Medication Dose Route Stop Time Status Admin Cyanocobalamin 500 MCG DAILY 08/13 0900 AC (Vitamin B-12 500 PO 09/12 0859 mcg tab) Allergies: Coded Allergies: [id number]-GXV-HdW Reductase Inhibitor (Severe, UNKNOWN 08/09/22) Review of Systems Constitutional: fatigue, generalized weakness. Musculoskeletal: thoracic pain. All systems rev neg: except as marked Objective VS/I O: Last Documented: Result Date Time Pulse Ox 100 08/13 034 FiO2 35 08/13 034 Pulse 76 08/13 034 O2 Delivery BiPAP 08/13 0341 B/P 159/74 [...] Urine 880 490 PATIENT WEIGHT: Weight (lb): 225 Weight (oz): 5 Weight (kg): 102.200 General appearance: alert, awake, no acute distress Head/Eyes: atraumatic, EOMI, normocephalic ENT: normal dentition, normal ear left, normal ear right Neck: non-tender, no JVD, no lymphadenopathy Cardiovascular: regular rate rhythm, no murmur Respiratory: aerating well, symmetric expansion, no distress Abdomen: soft, non-tender, no distention Genitourinary: not indicated Extremities: moves all, no edema, no clubbing, no cyanosis Neuro/GATE GUARD: alert, CNII-XII grossly intact, normal speech Skin: no rash, surgical incisions C/D/I Lymphatics: no lymphadenopathy Psychiatry: normal affect, normal judgment/insight Results Findings/Data: Laboratory Tests: 08/13 08/12 08/12 08/12 0400 1443 [...] Albumin (3.4 - 5.0 g/dL) 3.40 3.90 Hematology WBC (4.5 - 11.0 x10 3/uL) [...] (Auto) (14.0 - 32.0 %) 10.6 L Briscoe % (Auto) (4.8 - 9.0 %) 9.7 H Eos % (Auto) (0.3 - 3.7 %) 0.5 Baso % (Auto) (0.0 - 2.0 %) 0.2 Neut # (Auto) (2.0 - 7.6 x10 3/uL) 8.69 H Lymph # (Auto) (1.0 - 3.8 x10 3/uL) 1.18 Briscoe # (Auto) (0.1 - 0.8 x10 3/uL) [...] (0.0 - 0.1 x10 3/uL) 0.00 Recent Impressions: RADIOLOGY - XR CHEST 1 V 08/12 0717 Report Impression - Status: SIGNED Entered: 08/12/2022 0937 IMPRESSION: 1. Minimal left apical pneumothorax. Moderate left pleural effusion subjectively enlarged. 2. Bibasilar atelectasis versus airspace disease. 3. Stable postoperative cardiomediastinal silhouette. Impression By: Aretha Awad M.D. Diagnosis, Assessment Plan Free Text DxA P Notes Free Text DxA P Notes: Multivessel CAD Status post CABG x5 Muscle weakness Unsteady gait Impaired ADLs, mobility Alzheimer's dementia Postoperative anemia CKD History of A-fib HTN Plan: Continue PT/OT Out of bed to chair Work on strength, bed mobility, transfers, gait Monitor for left knee buckling Increase endurance Fall precautions Monitor p.o. intake and nutrition Strict decubitus precautions Monitor labs closely Monitor telemetry. Still on amnio drip Patient has 1 Vernon drain Advance therapies as tolerated.. Excellent candidate IRF consulted. [employer] Medicare. Will require insurance approval at 1839 RPT #:[id number] END OF REPORT [facility] 2022-08-12 17:20:00 [id number] [address] PATIENT NAME: BRENNAN AHN ADMIT DATE: 08/09/22 ACCOUNT NO: [id number] ROOM NO: [facility] [place] AGE: 82 REPORT TYPE: eECHOCARDIOGRAM REPORT SEX: M ADMITTING PHYSICIAN:Salazar Dee MD ATTENDING PHYSICIAN:Salazar Dee MD *[address] [address] Limited Transthoracic Echocardiogram Patient: Brennan Ahn Study Date: 08/12/2022 BP: 125 / 60 Location: [facility] URN: [id number] : 1940 Age: 82 Height: 71 in / 180.3 cm Gender: M Weight: 224.5 lb / 102.1 kg BMI/BSA: 31.4 kg/m 2 / 2.29 m 2 *Ordering Physician: * Shiloh Pimentel *Interpreting Physician: * Alli Quiros MD *Cost Consultant: * [place] Indications: EVAL CARDIAC FUNCTION. Study data: Transthoracic echocardiogram, limited study. Procedure: Transthoracic echocardiography was performed. Images were obtained using a Beststudy cardiac ultrasound machine. Image quality was fair. Limited 2D and limited spectral Doppler. Location: Bedside. Patient status: Inpatient. Patient room number: 2202. Study status: Stat. Findings Left ventricle: The cavity size is normal. Wall thickness is normal. Systolic function is normal. The estimated ejection fraction is 50-54%. Left ventricular diastolic function parameters are indeterminate. Right ventricle: Systolic function is severely reduced. Left atrium: The atrium is dilated. PATIENT NAME: BRENNAN AHN Right atrium: The atrium is severely dilated. Aortic valve: There is mild regurgitation. Mitral valve: There is mild regurgitation. Tricuspid valve: There is mild regurgitation. Pericardium: There is no pericardial effusion. There is a left pleural effusion. Systemic veins: Inferior vena cava: The vessel is normal in size. The respirophasic diameter changes are blunted (< 50%). Measurements Left ventricle Value Ref AMANDA, LAX 4.3 [...] ES, 1-p 37 ml/m 2 12 - 37 PATIENT NAME: BRENNAN AHN A4C Vol, ES, 2-p [...] ratio 3.13 --------- Pulmonic valve Value Ref ID v, ED 0.8 m/sec --------- Tricuspid valve Value Ref TR peak v 2.65 m/sec <=2.8 Peak RV-RA grad, 28 mm Hg --------- S Aortic root Value Ref Root diam 3.0 cm <4.4 Pulmonary artery Value Ref Pressure, S 36.1 mm Hg --------- Systemic veins Value Ref Estimated CVP 8 mm Hg --------- Conclusions Summary: 1. Left ventricle: The cavity size is normal. Wall thickness is normal. Systolic function is normal. The estimated ejection fraction is 50-54%. Left ventricular diastolic function parameters are indeterminate. PATIENT NAME: BRENNAN AHN 2. Right ventricle: Systolic function is severely reduced. 3. Left atrium: The atrium is dilated. 4. Right atrium: The atrium is severely dilated. 5. Pericardium, extracardiac: There is a left pleural effusion. 6. Inferior vena cava: The vessel is normal in size. The respirophasic diameter changes are blunted (< 50%). Prepared and electronically signed by Alli Quiros MD 08/12/2022 17:20 at 1720 PATIENT NAME: BRENNAN AHN [facility] 2022-08-12 17:14:00 [facility] Nephrology Consultation Note REPORT#:[id number] REPORT STATUS: Signed DATE:08/12/22 TIME: 1714 PATIENT: BRENNAN AHN UNIT #: [id number] [address] AGE: 82 SEX: M ATTEND: Salazar Dee MD ADM AUTHOR: Maura Terrazas MD * ALL edits or amendments must be made on the electronic/computer document * History of Present Illness Requesting clinician: Dr Figueroa Reason for consult: LADARIUS Chief complaint: chest pain HPI: 82-year-old male known to have hypertension, atrial fibrillation, supraventricular tachycardia with requiring ablation presenting with multivessel cardiovascular disease and he underwent CABG 07/13/2022. He was extubated postoperatively and his blood pressures were stable when he was seen. He endorsed having kidney issues in the past and seeing a progress man at [place] but his kidney function had been stable and he denied any urinary complaints, chronic use of NSAIDs. He also denied any nausea, itching, cramping , change of taste, orthopnea. History - Adult longitudinal Past medical history: Reports: Atrial fibrillation, Coronary artery disease, Dementia, Kidney disease/ stones. Additional surgical history: Crevial Laminectomy Family history: Reports: Hypertension. Alcohol use: Denies EtOH use Drug use: Denies recreational drugs Allergies: Coded Allergies: Aqeqwhx-JTJ-MxC Reductase Inhibitor (Severe, UNKNOWN 08/09/22) Review of Systems Constitutional: Denies: chills, fever. Skin: Denies: laceration, rash. Allergy/Immun: Denies: hives, itching. Eyes: Denies: redness, discharge. ENT: Denies: sore throat, throat pain. Respiratory: Denies: JANG (dyspnea on exertion), non productive cough. Cardiovascular: Denies: chest pain, JANG (dyspnea on exertion). GI: Denies: abdominal pain, anorexia. : Denies: dysuria, flank pain. Objective General VS/I O: Vital Signs: Date Time Temp Pulse Resp B/P B/P Pulse O2 O2 Flow FiO2 Mean Ox Delivery Rate 08/13 0752 96 Room air 08/13 0701 81 171/78 112 96 08/13 0636 92 134/95 110 97 08/13 0600 76 16 174/77 111 96 08/13 0530 76 171/77 110 100 08/13 0500 75 158/77 109 100 08/13 0430 76 20 158/80 112 100 08/13 0415 79 16 100 03/12 0400 36.7 74 16 163/79 107 100 Room air 03/12 0400 74 16 163/79 113 100 03/12 [...] 83 22 132/84 100 96 Room air 03/11 2200 83 22 132/84 98 96 03/11 2130 87 29 168/87 119 97 03/11 2112 93 Room air 21 03/11 2100 80 26 160/74 106 96 03/11 2030 82 28 163/74 106 96 03/11 2000 37.1 03/11 1999 36.6 85 32 161/73 106 90 03/11 [...] 0 03/11 1525 98 Room air 21 03/11 1501 83 35 105/90 95 96 03/11 1430 74 36 117/56 80 98 03/11 1408 77 26 97 03/11 1400 74 34 125/60 86 95 03/11 1345 74 15 97 03/11 1330 69 18 103/53 76 96 03/11 1320 76 34 114/53 77 98 03/11 1315 85 48 08/12 1300 73 40 98/56 74 96 08/12 1248 68 30 90/55 69 96 08/12 1245 74 34 73/36 48 91 08/12 1230 68 27 96/53 68 95 08/12 1216 97 Room air 21 08/12 1215 71 32 95/54 72 97 08/12 1200 36.4 72 28 98/54 72 95 [...] scale Measurement Method PATIENT WEIGHT: Weight (lb): 219 Weight (oz): 12.81 Weight (kg): 99.700 Physical Exam General appearance: alert, awake Head/eyes: atraumatic, clear cornea ENT: moist mucous membranes, normal nose Neck: no JVD, no lymphadenopathy Cardiovascular: normal heart sounds, regular rate and rhythm Respiratory: aerating well, clear to auscultation Abdomen: non-tender, soft Genitourinary: no bladder distention, no flank pain Extremities: no edema, no gangrene, no swelling Treatment Prophylaxis Treatment Prophylaxis Drain(s)/tube(s): Drain(s)/tube(s): chest, urinary catheter Diagnosis, Assessment Plan Consultants: cardiology, cardiovascular surgery Free Text DxA P Notes Free text DxA P notes: 82-year-old male known to have hypertension, atrial fibrillation, supraventricular tachycardia with requiring ablation presenting with multivessel cardiovascular disease and he underwent CABG 07/13/2022. He was extubated postoperatively and his blood pressures were stable when he was seen. He endorsed having kidney issues in the past and seeing a progress man at [place] but his kidney function had been stable and he denied any urinary complaints, chronic use of NSAIDs. He also denied any nausea, itching, cramping , change of taste, orthopnea. Nephrology following for: [...] SBP goes above 160. at 1042 RPT #:[id number] END OF REPORT [facility] 2022-08-12 12:51:00 [facility] Internal Medicine Prog. Note REPORT#:[id number] REPORT STATUS: Signed DATE:08/12/22 TIME: 1251 PATIENT: BRENNAN AHN UNIT #: [id number] ROOM/BED: [place] [address] : 42 AGE: 82 SEX: M ATTEND: Salazar Dee MD ADM AUTHOR: Devin Fox DO * ALL edits or amendments must be made on the electronic/computer document * Subjective Chief complaint: pt c/o mild low back pain sitting in chair Review of Systems All systems rev neg: except as marked Objective General VS/I O: Vital Signs Date Temp Pulse Resp B/P B/P Mean Pulse Ox FiO2 08/11-08/12 97.8 60-111 14-48 81-188/31-99 53-112 86-100 21-50 Last Documented: Result Date Time Pulse Ox 96 08/12 0806 O2 Delivery High flow nasal cannula 08/12 08 O2 Flow Rate 1 08/12 0806 B/P 144/49 08/12 0800 B/P Mean 70 08/12 0800 Pulse 93 08/12 0800 Resp 30 08/12 0800 FiO2 40 08/12 0320 Temp 97.8 08/11 1900 24 hour I O ending at 0700: 03/11 0700 03/ 1900 Intake Total 626.00 3105.00 Output Total 1740 380 Balance -1114.00 2725.00 Intake, IV 526.00 1665.00 Intake, Oral 100 960 Intake, Oral 480 Supplement Output, Chest 190 115 Tube Drainage Output, Urine 1550 265 Patient 102.2 kg 100.244 kg Weight Weight Bed scale Measurement Method PATIENT WEIGHT: Weight (lb): 225 Weight (oz): 5 Weight (kg): 102.200 Medications: Active Meds + DC'd Last 24 Hrs Ipratropium Kingston (ATROVENT) 500 MCG Q2H PRN PRN INH Cyanocobalamin (Vitamin B-12 500 mcg tab) 500 MCG DAILY PO Ferrous Sulfate (FERROUS SULFATE) 325 MG DAILY PO Bisacodyl (DULCOLAX) 10 MG ONCE PRN RECTAL Magnesium Hydroxide (MILK OF MAGNESIA) 30 ML ONCE PRN PO (DC) Ipratropium [place] (ATROVENT) 500 MCG RTQ4H INH Metoprolol Tartrate [...] ASDIR IV (CKD) Dextrose/Water (D5%W NON-DEHP) 250 ML Pantoprazole (PROTONIX) 40 MG DAILY@0600 PO Docusate [...] ASDIR IV Dextrose/Water (DEXTROSE 5% WATER) 246 ML Glucagon (GLUCAGON) 1 MG ASDIR PRN IM Insulin Human Regular (HumuLIN R) 100 UNIT ASDIR IV (CKD) Sodium Chloride (SODIUM CHLORIDE 0.9%) 99 ML Ipratropium [place] (ATROVENT) 500 MCG Q4H INH (DC) Magnesium [...] 10 MG Q6H PRN PRN IV Physical Exam General appearance: alert, awake, oriented Head/Eyes: EOMI, PERRLA Neck: non-tender, no JVD Cardiovascular: irregular rhythm, normal heart sounds Respiratory: aerating well, clear to auscultation Abdomen: non-tender, soft Extremities: Extremities: edema, moves all Neuro/GATE GUARD: alert, oriented x 3, CNII-XII intact Results Findings/Data: Laboratory Tests 08/12/22 1056: [Embedded Image Not Available] 08/12/22 0145: [Embedded Image Not Available] Laboratory Tests 08/12 0338 Blood Gas Puncture Site [...] 08/12 08/12 08/12 1056 0924 0338 0145 0145 Chemistry Sodium (134 - 147 mEq/L) 136 [...] (Auto) (14.0 - 32.0 %) 10.5 L Briscoe % (Auto) (4.8 - 9.0 %) 8.6 Eos % (Auto) (0.3 - 3.7 %) 0.0 L Baso % (Auto) (0.0 - 2.0 %) 0.2 Neut # (Auto) (2.0 - 7.6 x10 3/uL) 9.73 H Lymph # (Auto) (1.0 - 3.8 x10 3/uL) 1.27 Briscoe # (Auto) (0.1 - 0.8 x10 3/uL) [...] (0.0 - 0.1 x10 3/uL) 0.00 Radiology data: Recent Impressions: RADIOLOGY - XR CHEST 1 V 08/12 9801 Report Impression - Status: SIGNED Entered: 08/12/2022 0951 IMPRESSION: 1. Minimal left apical pneumothorax. Moderate left pleural effusion subjectively enlarged. 2. Bibasilar atelectasis versus airspace disease. 3. Stable postoperative cardiomediastinal silhouette. Impression By: Aretha Awad M.D. Treatment Prophylaxis Treatment Prophylaxis Drain(s)/tube(s): Drain(s)/tube(s): chest, urinary catheter Diagnosis, Assessment Plan Hospital course to date: 82-year-old male with past medical history of hypertension, atrial fibrillation, supraventricular tachycardia status post ablation who was admitted with reports of multivessel coronary artery disease found on a cardiac catheterization done at [facility]. Patient was transferred to [facility] for CABG. 1. Coronary artery disease -Status post CABG x5, ALAA, PVI -Continue metoprolol, Plavix, aspirin -Chest tubes in place and draining - 2. Atrial fibrillation -Continue IV amiodarone for rate control -Continue metoprolol -Monitor and review telemetry 3. Debility -.-PT/OT 4. ARF - cr 1.3-1.9-2.2 - post op, post lasix therefore likely pre-renal - baseline CKD is suspected - nephro consulted dispo: possible INPT REHAB - discussed with Pts daughter in details total time spent 35mins Problem List/A P: 1. S/P CABG x 5 2. CAD (coronary artery disease) 3. Postoperative pulmonary dysfunction after cardiac surgery 4. HTN (hypertension) Consultants: cardiology, cardiovascular surgery at 2157 RPT #:[id number] END OF REPORT [facility] 2022-08-12 11:09:00 [facility] ([facility]) Cardiology Progress Note REPORT#:[id number] REPORT STATUS: Signed DATE:08/12/22 TIME: 1109 PATIENT: BRENNAN AHN UNIT #: [id number] ROOM/BED: [place] [address] : 42 AGE: 82 SEX: M ATTEND: Salazar Dee MD ADM AUTHOR: Guera Marion NP * ALL edits or amendments must be made on the electronic/computer document * Subjective Chief complaint: sitting in chair Objective General VS/I O: Laboratory Tests 08/12/22 0145: [Embedded Image Not Available] 08/11/22 0213: [Embedded Image Not Available] 08/10/22 1600: [Embedded Image Not Available] Current Medications Sig/Ariana Start time Last Medication Dose Route Stop Time Status Admin Ipratropium [place] 500 MCG Q2H PRN PRN 08/13 1441 AC INH 09/12 1440 Cyanocobalamin 500 MCG DAILY 08/13 0900 AC PO 09/12 0859 Ferrous Sulfate 325 MG DAILY 08/13 0900 AC PO 09/12 0859 Bisacodyl 10 MG ONCE PRN 08/12 1200 AC RECTAL 09/11 1159 Magnesium Hydroxide 30 ML ONCE PRN 08/12 1200 DC 08/12 PO 1041 Ipratropium [place] 500 MCG RTQ4H 08/12 0800 AC 08/12 [...] 0925 Clopidogrel Bisulfate 75 MG DAILY 08/11 899 AC 08/12 PO 09/10 0859 1042 Polyethylene Glycol 17 GM DAILY 08/11 09 AC 08/12 PO 09/10 0859 1043 Amiodarone HCl 450 MG ASDIR 08/11 0745 CKD 08/12 Dextrose/Water 250 ML IV 09/10 0744 0642 Pantoprazole 40 MG DAILY@0600 08/11 0600 AC 08/12 PO 09/10 0559 0524 Docusate Sodium 100 MG BID 08/10 2100 AC 08/12 PO 09/09 205 1044 Metoprolol Tartrate 12.5 MG Q12HR 08/10 2100 AC 08/12 PO 09/09 2059 1043 Mupirocin 1 APPLIC BID 08/10 2100 AC 08/12 NASAL 08/15 0901 1043 Sennosides 17.2 MG BEDTIME 08/10 2100 AC 08/11 PO 09/09 205 1934 Aspirin 81 MG DAILY 08/10 2041 [...] Chloride 99 ML IV 09/09 1444 Ipratropium [place] 500 MCG Q4H 08/10 1445 DC 08/12 [...] O2 Flow FiO2 Mean Ox Delivery Rate 03/11 0806 96 High flow 1 nasal cannula 03/11 0800 144/49 70 03/11 0800 93 30 [...] 2030 66 16 134/63 90 93 03/10 2014 167/50 79 03/10 2015 66 18 128/60 [...] 93/55 71 100 PATIENT WEIGHT: Weight (lb): 225 Weight (oz): 5 Weight (kg): 102.200 Physical Exam General appearance: alert, awake, oriented, no acute distress Head/Eyes: atraumatic, PERRL Cardiovascular: CV assessment: irregularly irregular Respiratory: rhonchi Abdomen: soft, non-tender, normal bowel sounds, no distention Lower extremity: LE assessment: edema, normal capillary refill, normal temperature Neuro/GATE GUARD: alert, oriented X 3 Skin: poor skin turgor Results Radiology data: Recent Impressions: RADIOLOGY - XR CHEST 1 V 08/12 0717 Report Impression - Status: SIGNED Entered: 08/12/2022 0951 IMPRESSION: 1. Minimal left apical pneumothorax. Moderate left pleural effusion subjectively enlarged. 2. Bibasilar atelectasis versus airspace disease. 3. Stable postoperative cardiomediastinal silhouette. Impression By: Aretha Awad M.D. Treatment Prophylaxis Treatment Prophylaxis Drain(s)/tube(s): Drain(s)/tube(s): chest, urinary catheter Diagnosis, Assessment Plan Consultants: cardiology, cardiovascular surgery Free Text DxA P Notes Free Text DxA P Notes: 1. CAD s/pCABG x 5 (NGUYEN-LAD, SVG-Olga Lidia, SVG-OM, SVG-LPLA, SVG-PDA) continue asa, bb, plavix creatinine trending up-monitor on dopamine gtt post-op per CTS monitor 2. A-fib: Paroxysmal s/p PVI and ARISTEO amputation on amiodarone, bb 3. HTN monitor post-op at 1114 at 1058 RPT #:[id number] END OF REPORT [facility] 2022-08-12 10:33:00 [facility] ([facility] Critical Care Progress Note REPORT#:[id number] REPORT STATUS: Signed DATE:08/12/22 TIME: 1033 PATIENT: BRENNAN AHN UNIT #: [id number] ROOM/BED: [place] [id number] : 42 AGE: 82 SEX: M ATTEND: Salazar Dee MD ADM AUTHOR: Breezy Nance MD * ALL edits or amendments must be made on the electronic/computer document * Subjective Chief complaint: CABG HPI: 82-year-old male with history of hypertension, A-fib on [...] 2 mics of epinephrine and insulin drip. Comments: Developed A-fib with RVR No SOB Afebrile Improved urine output with Lasix Increased chest tube output after walking Chest x-ray shows small left apical pneumothorax and moderate left pleural effusion Worsening creatinine from 1.9-2.2 Echo is done and results are pending Improved heart rate after stopping dopamine Review of Systems Free Text ROS Notes Free Text ROS Notes: 12 point Review of Systems was performed to the extent possible including discussion with the nursing staff and review of vital signs and all data. All systems negative other than pertinent negative/positive findings mentioned in the interval history section. Objective General VS/I O Last Documented: Result Date Time Pulse Ox [...] scale Measurement Method PATIENT WEIGHT: Weight (lb): 225 Weight (oz): 5 Weight (kg): 102.200 Medications: Active Meds + DC'd Last 24 Hrs Ipratropium [place] (ATROVENT) 500 MCG Q2H PRN PRN INH Cyanocobalamin (Vitamin B-12 500 mcg tab) 500 MCG DAILY PO Ferrous Sulfate (FERROUS SULFATE) 325 MG DAILY PO Bisacodyl (DULCOLAX) 10 MG ONCE PRN RECTAL Magnesium Hydroxide (MILK OF MAGNESIA) 30 ML ONCE PRN PO Ipratropium [place] (ATROVENT) 500 MCG RTQ4H INH Metoprolol Tartrate [...] ASDIR IV (CKD) Dextrose/Water (D5%W NON-DEHP) 250 ML Pantoprazole (PROTONIX) 40 MG DAILY@0600 PO Docusate [...] (DC) Sodium Chloride (SODIUM CHLORIDE 0.9%) 500 ML Dextrose/Water (DEXTROSE 10% IN WATER) 125 ML ASDIR PRN IV (CKD) Dextrose/Water (DEXTROSE 10% IN WATER) 250 ML ASDIR PRN IV (CKD) Epinephrine (ADRENALIN CHLORIDE) 4 MG ASDIR IV Dextrose/Water (DEXTROSE 5% WATER) 246 ML Glucagon (GLUCAGON) 1 MG ASDIR PRN IM Insulin Human Regular (HumuLIN R) 100 UNIT ASDIR IV (CKD) Sodium Chloride (SODIUM CHLORIDE 0.9%) 99 ML Ipratropium [place] (ATROVENT) 500 MCG Q4H INH (DC) Magnesium [...] (APRESOLINE) 10 MG Q6H PRN PRN IV Results Findings/data: Laboratory Tests 08/12 337 Blood Gas Puncture Site Art Line O2 [...] (Auto) (14.0 - 32.0 %) 10.5 L Briscoe % (Auto) (4.8 - 9.0 %) 8.6 Eos % (Auto) (0.3 - 3.7 %) 0.0 L Baso % (Auto) (0.0 - 2.0 %) 0.2 Neut # (Auto) (2.0 - 7.6 x10 3/uL) 9.73 H Lymph # (Auto) (1.0 - 3.8 x10 3/uL) 1.27 Briscoe # (Auto) (0.1 - 0.8 x10 3/uL) [...] 0.1 x10 3/uL) 0.00 Laboratory Tests 08/12/22 0145: [Embedded Image Not Available] Microbiology: 08/09 1825 NASAL: MRSA DNA Surveillance Screen - ORD 08/09 1701 NASAL: MSSA Surveillance Screen - COLB 08/09 170 NASAL: MRSA DNA Surveillance Screen - COLB Radiology data Recent Impressions: RADIOLOGY - XR CHEST 1 V 08/12 0717 Report Impression - Status: SIGNED Entered: 08/12/2022 0951 IMPRESSION: 1. Minimal left apical pneumothorax. Moderate left pleural effusion subjectively enlarged. 2. Bibasilar atelectasis versus airspace disease. 3. Stable postoperative cardiomediastinal silhouette. Impression By: Aretha Awad M.D. Free Text Obj Notes Free Text Obj Notes: GEN: Patient is calm and in no distress. NECK: Supple, no JVD or thrush. No adenopathy. LUNGS: Clear lungs, no wheezes, no rales or crackles. CV: Irregularly irregular, no murmurs are heard. No S3 or rubs. GI: Abdomen is soft, not tender. Bowel sounds are present. EXT/Musc: No edema. No clubbing or cyanosis noted. Skin is warm. NEURO: Awake, alert and oriented x 3. No focal findings. Treatment Prophylaxis Treatment Prophylaxis Drain(s)/tube(s): Drain(s)/tube(s): chest, urinary catheter Diagnosis, Assessment Plan Problem list/A P: 1. CAD (coronary artery disease) 2. Postoperative pulmonary dysfunction after cardiac surgery 3. S/P CABG x 5 Free text A P: 82-year-old male with history of hypertension, A-fib on [...] Appears intact, keep off sedation, multimodal pain control Respiratory: Sats well, CPAP as tolerated, plan for extubation, ABG and CXR reviewed Cardiovascular: HD unstable on vasopressors, attempt to wean, keep CTs to suction Renal: strict I/Os, monitor Cr and electrolytes, LA clear, judicious resuscitation GI: bedside swallow then oral diet after extubation, bowel regimen, monitor LFTs ID: reactive leukocytosis, trend WBC, continue periop antibiotics per protocol Hem: acute blood loss anemia, monitor Hgb and CTs output, transfuse as needed Endo: Blood glucose control with insulin gtt per protocol Misc: PTOT consult, DVT and GI prophylaxis with DAPT and PPI 08/11 Continue supplemental oxygen and titrate FiO2 to keep saturation more than 90%. Inhaled bronchodilators as needed IS and LVEP Judicious pain control Aspirin and Plavix Amiodarone p.o. Metoprolol Amiodarone bolus and drip 1 albumin bolus 1 dose of Lasix 20 mg Dopamine drip at 3 mics Monitor kidney function and trend creatinine Monitor and replete electrolytes Strict I O's Cardiac diet with bowel regimen Blood glucose control, sliding scale insulin VTE prophylaxis, DOAC's Stress ulcer prophylaxis, Protonix Discussed with ICU team and cardiac surgery Critical care time 41 minutes 08/12 Continue supplemental oxygen and titrate FiO2 to keep saturation more than 90%. Inhaled bronchodilators as needed IS and LVEP Continue monitoring chest tube output, increased output after walking Judicious pain control Echocardiogram is done, results are pending Aspirin and Plavix Amiodarone p.o. Metoprolol Amiodarone bolus and drip Off dopamine Holding off on Lasix for now per nephrology Monitor kidney function and trend creatinine Monitor and replete electrolytes Strict I O's Cardiac diet with bowel regimen Blood glucose control, sliding scale insulin VTE prophylaxis, DOAC's Stress ulcer prophylaxis, Protonix Discussed with ICU team, nephrology and cardiac surgery Critical care time 39 minutes Consultants: cardiology, cardiovascular surgery at 1542 RPT #:[id number] END OF REPORT [facility] 2022-08-12 10:01:00 [facility] Cardiothoracic Surgery Prog REPORT#:[id number] REPORT STATUS: Signed DATE:08/12/22 TIME: 1001 PATIENT: BRENNAN AHN UNIT #: [id number] ROOM/BED: [place] [id number] : 42 AGE: 82 SEX: M ATTEND: Salazar Dee MD ADM AUTHOR: Shiloh Pimentel CHIEF ACCOUNTANT * ALL edits or amendments must be made on the electronic/computer document * General Post-op: day 2 Status post: 08/10/22 CABG x 5 (NGUYEN-LAD, SVG-Olga Lidia, SVG-OM, SVG-LPLA, SVG-PDA) PVI TIMMY STRINGER (RGSV) Subjective Chief complaint: Follow-up CABG Review of Systems Constitutional: Denies: fatigue, fever, generalized weakness, malaise. Skin: Denies: itching. Eyes: Denies: itching, diplopia, eye pain. ENT: Denies: nose bleeding, sore throat, throat pain, toothache. Respiratory: Denies: JANG (dyspnea on exertion), pneumonia, SOB. Cardiovascular: Denies: chest pain, palpitations. GI: Denies: abdominal pain, GERD, nausea, vomiting. Musculoskeletal: Denies: extremity pain, extremity swelling, joint pain. Heme: Denies: bleeding, bruising. Neuro: Denies: dizziness, headache, lightheaded, syncope. All systems rev neg: except as marked Objective General VS/I O Vital Signs Date Temp Pulse Resp B/P B/P [...] scale Measurement Method PATIENT WEIGHT: Weight (lb): 225 Weight (oz): 5 Weight (kg): 102.200 Physical Exam General appearance: alert, oriented, mental status normal, no respiratory distress Wound/incision: Location: sternal Site condition: dressing clean dry, dressing intact HEENT: anicteric, mucosal membranes moist Neck: full range of motion, non-tender Cardiovascular: BP/pulses equal bilat., regular rate rhythm Respiratory: aerating well, symmetric expansion, no distress Abdomen: soft, non-tender, no distention Genitourinary: longo Extremities: dry, moves all Musculoskeletal: full range of motion Neuro/GATE GUARD: alert, oriented X 3 Skin: dry, intact Psychiatry: anxious Current Medications Medications: Active Meds + DC'd Last 24 Hrs Ipratropium [place] (ATROVENT) 500 MCG Q2H PRN PRN INH Cyanocobalamin (Vitamin B-12 500 mcg tab) 500 MCG DAILY PO Ferrous Sulfate (FERROUS SULFATE) 325 MG DAILY PO Bisacodyl (DULCOLAX) 10 MG ONCE PRN RECTAL Magnesium Hydroxide (MILK OF MAGNESIA) 30 ML ONCE PRN PO Ipratropium [place] (ATROVENT) 500 MCG RTQ4H INH Metoprolol Tartrate [...] ASDIR IV (CKD) Dextrose/Water (D5%W NON-DEHP) 250 ML Pantoprazole (PROTONIX) 40 MG DAILY@0600 PO Docusate [...] (DC) Sodium Chloride (SODIUM CHLORIDE 0.9%) 500 ML Dextrose/Water (DEXTROSE 10% IN WATER) 125 ML ASDIR PRN IV (CKD) Dextrose/Water (DEXTROSE 10% IN WATER) 250 ML ASDIR PRN IV (CKD) Epinephrine (ADRENALIN CHLORIDE) 4 MG ASDIR IV Dextrose/Water (DEXTROSE 5% WATER) 246 ML Glucagon (GLUCAGON) 1 MG ASDIR PRN IM Insulin Human Regular (HumuLIN R) 100 UNIT ASDIR IV (CKD) Sodium Chloride (SODIUM CHLORIDE 0.9%) 99 ML Ipratropium [place] (ATROVENT) 500 MCG Q4H INH (DC) Magnesium [...] (APRESOLINE) 10 MG Q6H PRN PRN IV Results Findings/Data: Laboratory Tests 08/12 0338 Blood Gas Puncture Site [...] (Auto) (14.0 - 32.0 %) 10.5 L Briscoe % (Auto) (4.8 - 9.0 %) 8.6 Eos % (Auto) (0.3 - 3.7 %) 0.0 L Baso % (Auto) (0.0 - 2.0 %) 0.2 Neut # (Auto) (2.0 - 7.6 x10 3/uL) 9.73 H Lymph # (Auto) (1.0 - 3.8 x10 3/uL) 1.27 Briscoe # (Auto) (0.1 - 0.8 x10 3/uL) [...] (0.0 - 0.1 x10 3/uL) 0.00 Radiology data: Recent Impressions: RADIOLOGY - XR CHEST 1 V 08/12 8250 Report Impression - Status: SIGNED Entered: 08/12/2022 0951 IMPRESSION: 1. Minimal left apical pneumothorax. Moderate left pleural effusion subjectively enlarged. 2. Bibasilar atelectasis versus airspace disease. 3. Stable postoperative cardiomediastinal silhouette. Impression By: Aretha Awad M.D. Treatment Prophylaxis Treatment Prophylaxis Oxygen: nasal cannula Lines: arterial, CVC, peripheral Drain(s)/tube(s): Drain(s)/tube(s): chest, urinary catheter Diagnosis, Assessment Plan Hospital course to date: 82 year old with PMH of hypertension, atrial fibrillation, On Eliquis, Hx of SVT ablation 20 years ago transferred to [facility] with new findings of multi-vessel CAD. He reports he was woken from Sleep on Sunday AM with COmplaints of chest pains. EMS aas called and patient was taken to [facility]. He underwent LHC and found to have multi-vessel CAD by Dr Sanchez. Patient was transferred to [facility] for CABG. Patient lives independently. Daughter is at bedside. Patient reports last dose of Elliquis was Sunday AM. Echo was done at [facility] showing EF 55%, Mild MR, Mild AI, mild LVH. According to his records, he has a hx of Chronic kidney disease with baseline Creatine reportedly 1.5. He does report he has seen a renal MD in the past. Assessment/ Plan 1) CAD, Mutli-vessel 2) hypertension Continue BBLKR Add Norvasc 5 mg 3) Atrial fibrillation. Last dose of Eliquis Sunday AM Obtain EKG 4) BPH Continue flomax Workup for CABG underway. Patient was seen and examined by Dr Dee. Coronary artery bypass surgery was discussed with the patient. The risk of the operation, including the STS score, cristian of blleding, infection, heart attack, stroke, Tracheostomy etc discussed with the patient. CT chest, carotid US, Vein mapping ordered. 08/11/22 POD 1 s/p CABG x 5 (NGUYEN-LAD, SVG-Olga Lidia, SVG-OM, SVG-LPLA, SVG-PDA), PVI, ALAA, EVH (RGSV) Patient hemodynamically stable this morning, having episodes of vagal response and BP drops 20 points, SR and sinus arrythmnia noted on nuclear monitoring technician, V epicardial wires on backup rate of 50 Amiodarone bolus and drip Keep MS chest tube and monitor outputs, DC LP chest tube after ambulation Minimal oxygen requirements on 2l nasal cannula, encourage deep breathing and I- S use CXR and labs reviewed Pain management Glycemic control on insulin drip Cardiac diet, nutritional supplements Bowel regimen, + gas Strict I Os, daily weights, albmuin x 1 given for decreased UOP- monitor hourly SCDs for DVT and PPI for GI prophylaxis PT/OT Monitor patient closely in CVICU, continue supportive care Patient seen with Dr. Dee, plan of care discussed with ICU team. 08/12 Alert and oriented, up in the chair Remains on amiodarone drip for A-fib Wean dopamine off Chest x-ray reviewed. Breathing comfortably on room air Creatinine increased to 1.9, urine output 1.5 L last night after the boluses of Lasix Repeat renal panel today show creatinine 2.2. Nephrology consulted, hold off on additional Lasix Replace electrolytes Encourage I-S and mobilization Glycemic controlled Keep in CVICU for close monitoring Patient seen and plan reviewed with Dr Piper, Dr Kirkpatrick, [facility] and multidisciplinary team Consultants: cardiology, cardiovascular surgery at 1407 at 0947 RPT #:[id number] END OF REPORT [facility] 2022-08-12 00:59:00 [id number] [place] [address] PATIENT NAME: BRENNAN AHN ADMIT DATE: 08/09/22 ACCOUNT NO: [id number] ROOM NO: [facility] AGE: 82 REPORT TYPE: eELECTROCARDIOGRAM REPORT SEX: M ADMITTING PHYSICIAN:Salazar Dee MD ATTENDING PHYSICIAN:Salazar Dee MD Order: [id number] Test Reason : post op/CHANGE ON MONITOR Test Date/Time Stamp: SunAug 12 2022 00:59:31 Blood Pressure : / mmHG Vent. Rate : 091 BPM Atrial Rate : 000 BPM P-R Int : 000 ms QRS Dur : 100 ms QT Int : 350 ms P-R-T Axes : 000 073 076 degrees QTc Int : 430 ms Atrial fibrillation Anterior infarct , age undetermined Abnormal ECG When compared with ECG of 11-AUG-2022 04:11, Significant changes have occurred Confirmed by GAVI RENAE MD ([id number]) on 08/14/2022 3:47:55 PM Referred By: Confirmed by:GAVI RENAE MD at 6912 PATIENT NAME: BRENNAN AHN [facility] 2022-08-11 17:42:00 [facility] ([facility]) Cardiology Consultation REPORT#:[id number] REPORT STATUS: Signed DATE:08/11/22 TIME: 1742 PATIENT: BRENNAN ANH UNIT #: [id number] ROOM/BED: [place] [id number] : 42 AGE: 82 SEX: M ATTEND: Salazar Dee MD ADM AUTHOR: Logan Calix MD * ALL edits or amendments must be made on the electronic/computer document * History of Present Illness HPI Requesting Clinician: Dr. Dee Reason for consult: CAD PCP: PCP: No Primary or Family Physician HPI: This is an 82-year-old male with a history of hypertension, and AF who presented to outside hospital with chest pain underwent coronary angiogram that showed multivessel coronary artery disease and sent here for CABG. Patient underwent CABG x 5 (NGUYEN-LAD, SVG-Olga Lidia, SVG-OM, SVG-LPLA, SVG-PDA). PT is doing ok, urine out put was low today and was started on low dose Dopamine. History - Adult longitudinal Past medical history: Reports: Atrial fibrillation, Coronary artery disease, Dementia, Kidney disease/ stones. Additional surgical history: Crevial Laminectomy Family history: Reports: Hypertension. Alcohol use: Denies EtOH use Drug use: Denies recreational drugs Allergies: Coded Allergies: [id number] Reductase Inhibitor (Severe, UNKNOWN 08/09/22) Review of Systems Additional notes: As per HPI Otherewise negative 12 system points. Objective General VS/I O: Vital Signs: Date Time Temp Pulse Resp B/P B/P Pulse O2 O2 Flow FiO2 Mean Ox Delivery Rate 08/11 1700 131/36 59 08/11 1700 68 35 115/56 80 96 08/11 1645 136/42 65 /10 1645 65 37 117/56 80 86 /10 1630 149/39 66 /10 1630 66 32 131/60 87 96 08/11 1617 139/36 61 / 1617 66 33 125/58 83 94 /10 1600 139/38 62 /10 1600 65 35 122/65 88 96 08/11 1545 131/33 55 03/10 1545 60 15 [...] 03/09 2100 79 14 116/57 79 100 03/09 1999 High flow 1 nasal cannula 08/11 1999 129/57 77 03/09 2000 79 15 112/66 84 91 03/09 1900 132/57 79 08/10 1900 79 15 112/64 83 99 08/10 1845 120/51 71 08/10 1845 79 16 104/59 76 100 08/10 1834 100 Nasal 4 cannula 08/10 1830 63/33 43 08/10 1830 80 28 85/50 62 91 08/10 1815 119/50 71 08/10 181 79 17 112/58 79 100 08/10 1800 85/39 55 08/10 1800 79 31 101/55 74 100 08/10 1745 90/44 65 08/10 174 79 17 109/55 76 100 24 hour [...] scale Measurement Method PATIENT WEIGHT: Weight (lb): 221 Weight (oz): 9.03 Weight (kg): 100.244 General appearance: alert, awake, oriented Head/Eyes: PERRLA ENT: normal nose Neck: no JVD Cardiovascular: CV assessment: regular rate and rhythm, normal heart sounds Respiratory: clear to auscultation, no distress Abdomen: soft Lower extremity: LE assessment: no cyanosis, no edema Neuro/GATE GUARD: alert, oriented X 3, normal speech Skin: dry, intact Psychiatry: normal affect, normal judgment/insight, normal mood, no hallucinations Medications: Active Meds + DC'd Last 24 Hrs Ipratropium [place] (ATROVENT) 500 MCG Q2H PRN PRN INH [...] ASDIR IV (CKD) Dextrose/Water (D5%W NON-DEHP) 250 ML Amiodarone HCl (NEXTERONE 150MG/D5W 100ML) 100 ML [...] (DC) Sodium Chloride (SODIUM CHLORIDE 0.9%) 500 ML Dextrose/Water (DEXTROSE 10% IN WATER) 125 ML ASDIR PRN IV (CKD) Dextrose/Water (DEXTROSE 10% IN WATER) 250 ML ASDIR PRN IV (CKD) Epinephrine (ADRENALIN CHLORIDE) 4 MG ASDIR IV Dextrose/Water (DEXTROSE 5% WATER) 246 ML Glucagon (GLUCAGON) 1 MG ASDIR PRN IM Insulin Human Regular (HumuLIN R) 100 UNIT ASDIR IV (CKD) Sodium Chloride (SODIUM CHLORIDE 0.9%) 99 ML Ipratropium [place] (ATROVENT) 500 MCG Q4H INH Magnesium Sulfate [...] (DC) Sodium Chloride (SODIUM CHLORIDE 0.9%) 250 ML Verapamil HCl (ISOPTIN) 16.6 MG .Q24H ONE IV (DC) Heparin Sodium (Porcine) (HEPARIN SODIUM) 1,660 UNIT Sodium Bicarbonate (SODIUM BICARBONATE) 0.7 ML Nitroglycerin/Dextrose (NITROGLYCERIN 50MG/D5W 250ML) 8.3 MG Lactated Ringer's (LACTATED RINGERS) 949.5 ML Melatonin (Melatonin) 6 MG BEDTIME PRN PRN PO Hydralazine HCl (APRESOLINE) 10 MG Q6H PRN PRN IV Results Findings/Data: Laboratory Tests 08/11 08/10 08/10 08/10 0210 2138 1819 1747 Blood Gas Puncture Site Art Line Art Line [...] (-4.0 - 4.0 -3.3 -3.1 -2.3 -5.8 L MMOL/L) ABG Hematocrit (37.5 - 50.7 %) 28 [...] Calcium (1.12 - 1.32 1.23 1.17 1.17 1.18 MMOL/L) Lactic Acid (0.9 - 1.7 mmol/l) 0.9 1.0 1.6 1.6 Temperature (F) 98 98 O2 Delivery Device Room Air HFNC Adult Vent Adult Vent Vent Mode CPAP/PS CPAP/PS Vent Rate (/MIN) 17 22 FiO2 (%) 40 40 PEEP (cmH2O) 5 5 Pressure Support (cmH2O) 10 10 Laboratory Tests 08/11 08/11 08/11 08/11 08/11 0810 0614 0440 0213 0210 Chemistry Sodium (134 - 147 mEq/L) 142 [...] (Auto) (14.0 - 32.0 %) 5.2 L Briscoe % (Auto) (4.8 - 9.0 %) 8.7 Eos % (Auto) (0.3 - 3.7 %) 0.1 L Baso % (Auto) (0.0 - 2.0 %) 0.2 Neut # (Auto) (2.0 - 7.6 x10 3/uL) 10.86 H Lymph # (Auto) (1.0 - 3.8 x10 3/uL) 0.66 L Briscoe # (Auto) (0.1 - 0.8 x10 3/uL) [...] Magnesium (1.80 - 2.40 mg/dL) 2.28 Radiology Data: Recent Impressions: RADIOLOGY - XR CHEST 1 V 08/11 0500 Report Impression - Status: SIGNED Entered: 08/11/2022 0732 IMPRESSION: Cardiomegaly with opacity at the left lung base. Impression By: Miriam Loredo M.D. Treatment Prophylaxis Treatment Prophylaxis Drain(s)/tube(s): Drain(s)/tube(s): chest, urinary catheter Diagnosis, Assessment Plan Consultants: cardiology, cardiovascular surgery Free Text DxA P Notes Free Text DxA P Notes: 1. Coronary artery disease: S/pCABG x 5 (NGUYEN-LAD, SVG-Olga Lidia, SVG-OM, SVG-LPLA, SVG-PDA), on DAPT, and statin. We will start low-dose beta-rebel. Urine out put low, CVP 11, give one dose Lasix IV. 2. A-fib: Paroxysmal, had PVI at the time of CABG and left atrial appendage amputation. 3. HTN: start BB and resume home meds as tolerated,. at 0705 [facility] #:[id number] END OF REPORT [facility] 2022-08-11 12:01:00 [facility] ([facility]) Adult General Consultation REPORT#:[id number] REPORT STATUS: Signed DATE:08/11/22 TIME: 1201 PATIENT: BRENNAN AHN UNIT #: [id number] ROOM/BED: [place] [id number] : 42 AGE: 82 SEX: M ATTEND: Salazar Dee MD ADM AUTHOR: Devin Fox DO * ALL edits or amendments must be made on the electronic/computer document * History of Present Illness Requesting Clinician: dr dee Reason for consult: medical mgmt Chief complaint: Post CABG HPI: 82-year-old male with past medical history of hypertension, atrial fibrillation, supraventricular tachycardia status post ablation who was admitted with reports of multivessel coronary artery disease found on a cardiac catheterization done at [facility]. Patient was transferred to [facility] for CABG. Patient is a poor historian due to his history of Alzheimer's disease. Some of the history was obtained from patient's children at bedside. Patient underwent 5 vessel CABG August 10, 2022. Patient is sitting in chair. He reports minor chest pain. History - Adult longitudinal Past medical history: Reports: Atrial fibrillation, Coronary artery disease, Dementia, Kidney disease/ stones. Additional surgical history: Crevial Laminectomy Family history: Reports: Hypertension. Alcohol use: Denies EtOH use Drug use: Denies recreational drugs Medications: Home Medications: Medication Dose/Rte/Freq Days Qty Entered Last Max Daily Dose Reviewed METOPROLOL TARTRATE 50 MG PO BID 08/09/22 08/09/22 (LOPRESSOR) 1903 1904 Strength: 50 MG TAB hydrALAZINE (APRESOLINE) 20 MG IV 08/09/22 08/09/22 Strength: 20 MG/ML AMPUL Q4H PRN PRN SBP 1904 1904 GREATER THAN 180 Current Hospital Medications: Ahfs Category Unknown Sig/Ariana Start time Last Medication [...] Dose Route Stop Time Status Admin Ipratropium [place] 500 MCG Q2H PRN PRN 08/13 1441 AC (ATROVENT) INH 09/12 1440 Dopamine HCl/Dextrose 250 ML ASDIR 08/11 1445 AC (DOPamine 400MG/D5W IV 09/10 1444 250ML) Epinephrine 4 MG ASDIR 08/10 1445 AC (ADRENALIN CHLORIDE) IV 09/09 1444 Dextrose/Water 246 ML (DEXTROSE 5% WATER) Ipratropium [place] 500 MCG Q4H 08/10 1445 AC 08/11 [...] 08/10 2100 AC 08/11 (LOPRESSOR) PO 09/09 205 0737 Amiodarone HCl 200 MG TID 08/10 [...] HCl 10 MG Q6H PRN PRN 08/09 193 AC 08/09 (APRESOLINE) IV 09/08 192 2208 Metoprolol Tartrate 50 MG Q12HR 08/09 1929 DC 08/10 (LOPRESSOR) PO 09/08 1928 0735 Central Nervous System Agents Sig/Ariana Start time Last Medication Dose Route Stop Time Status Admin Tramadol HCl 50 MG Q4H PRN PRN 08/11 929 AC 08/11 (ULTRAM) PO 08/16 09 0925 Aspirin 81 MG DAILY 08/10 2040 AC 08/11 (ASPIRIN) PO 09/10 2039 0737 Acetaminophen 650 MG Q4H PRN PRN 08/10 1445 AC 08/11 (TYLENOL) PO 09/09 144 1402 Acetaminophen 650 MG Q4H PRN PRN 08/10 1445 AC (TYLENOL) RECTAL 09/09 1444 Magnesium Sulfate 100 ML ASDIR PRN 08/10 1445 AC (MAGNESIUM SULFATE IV 09/09 1444 4GM/SWFI 100ML) Magnesium Sulfate 50 ML ASDIR PRN 08/10 1445 AC (MAGNESIUM SULFATE IV 09/09 1444 2GM/SWFI 50ML) Magnesium Sulfate/ 100 ML ASDIR PRN 08/10 1445 AC /10 Dextrose IV 09/09 1444 0430 (MAGNESIUM SULFATE 1GM/D5W 100ML) Morphine Sulfate 4 MG Q2H PRN PRN 08/10 1445 DC (morphine SULFATE) IV 08/15 1444 Oxycodone HCl 5 MG Q4H PRN PRN 08/10 1445 DC (ROXICODONE) PO 08/15 1444 Oxycodone HCl 10 MG Q4H PRN PRN 08/10 1445 DC (ROXICODONE) PO 08/15 1444 Electrolytic, Caloric, And Alexandre Sig/Ariana Start time Last Medication Dose Route Stop Time Status Admin Calcium Chloride 1 GM ASDIR PRN 08/10 1445 AC (CALCIUM CHLORIDE) IV 09/09 1444 Dextrose/Water 125 ML ASDIR PRN 08/10 1445 CKD (DEXTROSE 10% IN IV 09/09 1444 WATER) Dextrose/Water 250 ML ASDIR PRN 08/10 1445 CKD (DEXTROSE 10% IN IV 09/09 1444 WATER) Potassium Chloride 100 ML ASDIR PRN 08/10 1445 AC (KCL 20MEQ/SWFI IV 09/09 1444 100ML) Sodium Bicarbonate 50 MEQ ASDIR PRN 08/10 1445 AC (SODIUM BICARBONATE) IV 09/09 1444 Sodium Chloride 1,000 ML .Q20H 08/10 1445 AC 08/11 (SODIUM CHLORIDE IV 09/09 1444 0753 0.9%) Sodium Chloride 250 ML Q24H 08/10 1445 AC (SODIUM CHLORIDE IV 09/09 1444 0.9%) Gastrointestinal Drugs Sig/Ariana Start time Last Medication Dose Route Stop Time Status Admin Bisacodyl 10 MG ONCE PRN 08/12 1200 AC (DULCOLAX) RECTAL 09/11 1159 Magnesium Hydroxide 30 ML ONCE PRN 08/12 1200 AC (MILK OF MAGNESIA) PO Polyethylene Glycol 17 GM DAILY 08/11 09 AC 08/11 (MIRALAX) PO 09/10 858 0738 Pantoprazole 40 MG DAILY@0600 08/11 0600 AC 08/11 (PROTONIX) PO 09/10 0559 0705 Docusate Sodium 100 MG BID 08/10 2100 AC 08/11 (COLACE) PO 09/09 2058 0737 Sennosides 17.2 MG BEDTIME 08/10 2100 AC 08/10 (Senna Lax 8.6 MG PO 09/09 TABLET) Ondansetron HCl 4 MG Q6H PRN PRN 08/10 144 AC (ZOFRAN) IV 09/09 144 Hormones And Synthetic Substit Sig/Ariana Start time Last Medication Dose Route Stop Time Status Admin Glucagon 1 MG ASDIR PRN 08/10 144 AC (GLUCAGON) IM 09/09 144 Insulin Human Regular 100 UNIT ASDIR 08/10 144 CKD (HumuLIN R) IV 09/09 144 Sodium Chloride 99 ML (SODIUM CHLORIDE 0.9%) Skin And Mucous Membrane Agent Sig/Ariana Start time Last Medication Dose Route Stop Time Status Admin Mupirocin 1 APPLIC BID 08/10 2099 AC 08/11 (BACTROBAN 2% 22 GM NASAL 08/15 0901 0738 OINTMENT) Vitamins Sig/Ariana Start time Last Medication Dose Route Stop Time Status Admin Cyanocobalamin 500 MCG DAILY 08/13 09 AC (Vitamin B-12 500 PO 09/12 0859 mcg tab) Allergies: Coded Allergies: [id number] Reductase Inhibitor (Severe, UNKNOWN 08/09/22) Objective VS/I O: Last Documented: Result Date Time B/P 99/58 08/11 [...] scale Measurement Method PATIENT WEIGHT: Weight (lb): 221 Weight (oz): 9.03 Weight (kg): 100.500 General appearance: alert, awake, oriented Head/Eyes: EOMI, PERRLA Neck: non-tender, no JVD Cardiovascular: regular rate rhythm Respiratory: aerating well, symmetric expansion Abdomen: soft, non-tender Extremities: moves all, no edema Neuro/GATE GUARD: alert, oriented X 3, CNII-XII grossly intact Results Findings/Data: Laboratory Tests: 08/11 08/11 08/11 08/11 0810 0614 [...] (Auto) (14.0 - 32.0 %) 5.2 L Briscoe % (Auto) (4.8 - 9.0 %) 8.7 Eos % (Auto) (0.3 - 3.7 %) 0.1 L Baso % (Auto) (0.0 - 2.0 %) 0.2 Neut # (Auto) (2.0 - 7.6 x10 3/uL) 10.86 H Lymph # (Auto) (1.0 - 3.8 x10 3/uL) 0.66 L Briscoe # (Auto) (0.1 - 0.8 x10 3/uL) [...] 08/11 08/11 08/10 08/10 08/10 0210 0052 2137 2024 1818 Blood Gas Puncture Site Art Line Art Line [...] Excess (-4.0 - 4.0 -3.3 -3.1 -2.3 MMOL/L) ABG Hematocrit (37.5 - 50.7 %) 28 L 26 L 28 L ABG Hemoglobin (12.5 - 16.9 9.5 L 8.9 L 9.5 L G/DL) Sodium (134 - 147 mmol/L) 142 143 142 Potassium (3.4 - 5.0 mmol/L) 4.3 3.6 3.7 Chloride (100 - 108 mmol/L) 107 109 H 108 Ionized Calcium (1.12 - 1.32 1.23 1.17 1.17 MMOL/L) Lactic Acid (0.9 - 1.7 mmol/l) 0.9 1.0 1.6 Temperature (F) 98 O2 Delivery Device Room Air HFNC Adult Vent Vent Mode CPAP/PS Vent Rate (/MIN) 17 FiO2 (%) 40 PEEP (cmH2O) 5 Pressure Support (cmH2O) 10 Chemistry POC Creatinine (0.8 - 1.3 mg/dL) 1.3 1.4 H 1.2 POC Glucose (70 - 110 MG/DL) 98 103 POC Glucose (mg/dL) (70 - 110 125 H 108 137 H MG/DL) 08/10 08/10 08/10 1747 1659 1600 Blood [...] (Auto) (14.0 - 32.0 %) 3.8 L Briscoe % (Auto) (4.8 - 9.0 %) 1.8 L Eos % (Auto) (0.3 - 3.7 %) 0.3 Baso % (Auto) (0.0 - 2.0 %) 0.2 Neut # (Auto) (2.0 - 7.6 x10 3/uL) 16.78 H Lymph # (Auto) (1.0 - 3.8 x10 3/uL) 0.69 L Briscoe # (Auto) (0.1 - 0.8 x10 3/uL) [...] 08/10 08/10 08/10 1501 1433 1431 1400 1358 Blood Gas O2 Saturation (90 - 100 [...] Calcium (1.12 - 1.32 1.06 L 1.05 L MMOL/L) Lactic Acid (0.9 - 1.7 mmol/l) 0.7 L 0.8 L Chemistry POC Creatinine (0.8 - 1.3 mg/dL) 1.2 1.2 POC Glucose (mg/dL) (70 - 110 119 H 122 H MG/DL) Coagulation Activated Coag Time (74 - 137 SEC) 131 630 H 786 H 08/10 08/10 08/10 08/10 1329 1304 1302 1241 Blood Gas O2 Saturation (90 [...] 0.9 < 0.3 L < 0.3 L Chemistry POC Creatinine (0.8 - 1.3 mg/dL) 1.2 1.2 1.1 POC Glucose (mg/dL) (70 - 110 MG/DL) 119 H 117 H 116 H Coagulation Activated Coag Time (74 - 137 SEC) > 1000 H 08/10 1240 Coagulation Activated Coag Time (74 - 137 SEC) 847 H Recent Impressions: RADIOLOGY - XR CHEST 1 V 08/10 1551 Report Impression - Status: SIGNED Entered: 08/10/2022 1835 IMPRESSION: Status post median sternotomy and CABG with multiple support line and tube placement, as described above. Impression By: Daphne Sullivan M.D. RADIOLOGY - XR CHEST 1 V 08/11 0500 Report Impression - Status: SIGNED Entered: 08/11/2022 0732 IMPRESSION: Cardiomegaly with opacity at the left lung base. Impression By: Miriam Loredo M.D. Results: EKG personally reviewed Treatment Prophylaxis Treatment Prophylaxis Drain(s)/tube(s): Drain(s)/tube(s): chest, urinary catheter Diagnosis, Assessment Plan Problem List/A P: 1. S/P CABG x 5 2. CAD (coronary artery disease) 3. Postoperative pulmonary dysfunction after cardiac surgery 4. HTN (hypertension) Consultants: cardiology, cardiovascular surgery Plan discussed with: patient Code Status/Resusc. Discussion Resuscitation discussion: Discussed with: patient Code status: full code Free Text DxA P Notes Free Text DxA P Notes: 82-year-old male with past medical history of hypertension, atrial fibrillation, supraventricular tachycardia status post ablation who was admitted with reports of multivessel coronary artery disease found on a cardiac catheterization done at [facility]. Patient was transferred to [facility] for CABG. 1. Coronary artery disease -Status post CABG x5 -Continue metoprolol, Plavix, aspirin -Chest tubes in place and draining 2. Atrial fibrillation -Continue IV amiodarone for rate control -Continue metoprolol -Monitor and review telemetry 3. Debility -.-PT/OT at 2157 RPT #:[id number] END OF REPORT [facility] 2022-08-11 11:10:00 [facility] Cardiothoracic Surgery Prog REPORT#:[id number] REPORT STATUS: Signed DATE:08/11/22 TIME: 1110 PATIENT: BRENNAN AHN UNIT #: [id number] ROOM/BED: [place] [id number] : 42 AGE: 82 SEX: M ATTEND: Salazar Dee MD ADM AUTHOR: Shiloh Pimentel CHIEF ACCOUNTANT * ALL edits or amendments must be made on the electronic/computer document * General Post-op: day 1 Status post: 08/10/22 CABG x 5 (NGUYEN-LAD, SVG-Olga Lidia, SVG-OM, SVG-LPLA, SVG-PDA) XIN STRINGER (RGSV) Subjective Chief complaint: chest pain coronary artery disease Review of Systems Constitutional: Denies: fatigue, fever, generalized weakness. Skin: Denies: diaphoresis, ecchymosis, itching. Allergy/Immun: Denies: anaphylaxis, hives, itching. Eyes: Denies: itching, diplopia, eye pain. ENT: Denies: nose bleeding, sore throat, throat pain, toothache. Respiratory: Denies: JANG (dyspnea on exertion), pneumonia, SOB. Cardiovascular: Denies: chest pain, palpitations. GI: Denies: abdominal pain, GERD, nausea, vomiting. Musculoskeletal: Denies: extremity pain, extremity swelling, joint pain. Heme: Denies: bleeding, bruising. Neuro: Denies: dizziness, headache, lightheaded, syncope. All systems rev neg: except as marked Objective General VS/I O Last Documented: Result Date Time B/P 99/58 08/11 829 B/P Mean 72 08/11 829 Pulse Ox 100 08/11 828 Pulse 63 08/11 828 Resp 27 08/11 828 Temp 97.7 08/11 699 FiO2 35 08/11 0315 O2 Delivery High [...] scale Measurement Method PATIENT WEIGHT: Weight (lb): 221 Weight (oz): 9.03 Weight (kg): 100.500 Dietitian Nutrition assessment The data set between the solid lines has been imported from the dietitian's assessment. ___ BMI Calculated: 30.9 Nutrition related diagnosis: Nutrition diagnosis details: Nutrition problem: Nutrition etiology: Nutrition signs and symptoms: Nutrition prescription: Dietitian name: Assessment completed: ___ Physical Exam General appearance: alert, awake, oriented Wound/incision: Location: sternal Site condition: dressing clean dry, dressing intact HEENT: anicteric, mucosal membranes moist Neck: full range of motion, non-tender Cardiovascular: BP/pulses equal bilat., regular rate rhythm Respiratory: aerating well, symmetric expansion, no distress Abdomen: soft, non-tender Genitourinary: longo, urine Extremities: dry, moves all Musculoskeletal: full range of motion Neuro/GATE GUARD: alert, oriented X 3 Skin: dry, intact Psychiatry: anxious Current Medications Medications: Active Meds + DC'd Last 24 Hrs Ipratropium [place] (ATROVENT) 500 MCG Q2H PRN PRN INH [...] ASDIR IV (CKD) Dextrose/Water (D5%W NON-DEHP) 250 ML Amiodarone HCl (NEXTERONE 150MG/D5W 100ML) 100 ML [...] (DC) Sodium Chloride (SODIUM CHLORIDE 0.9%) 500 ML Dextrose/Water (DEXTROSE 10% IN WATER) 125 ML ASDIR PRN IV (CKD) Dextrose/Water (DEXTROSE 10% IN WATER) 250 ML ASDIR PRN IV (CKD) Epinephrine (ADRENALIN CHLORIDE) 4 MG ASDIR IV Dextrose/Water (DEXTROSE 5% WATER) 246 ML Glucagon (GLUCAGON) 1 MG ASDIR PRN IM Insulin Human Regular (HumuLIN R) 100 UNIT ASDIR IV (CKD) Sodium Chloride (SODIUM CHLORIDE 0.9%) 99 ML Ipratropium [place] (ATROVENT) 500 MCG Q4H INH Magnesium Sulfate [...] (DC) Sodium Chloride (SODIUM CHLORIDE 0.9%) 250 ML Verapamil HCl (ISOPTIN) 16.6 MG .Q24H ONE IV (DC) Heparin Sodium (Porcine) (HEPARIN SODIUM) 1,660 UNIT Sodium Bicarbonate (SODIUM BICARBONATE) 0.7 ML Nitroglycerin/Dextrose (NITROGLYCERIN 50MG/D5W 250ML) 8.3 MG Lactated Ringer's (LACTATED RINGERS) 949.5 ML Melatonin (Melatonin) 6 MG BEDTIME PRN PRN PO Acetaminophen (TYLENOL EXTRA STRENGTH) 1,000 MG PREOP ONCALL PO (DC) Mupirocin (BACTROBAN 2% 22 GM OINTMENT) 1 APPLIC BID NASAL (DC) Hydralazine HCl (APRESOLINE) 10 MG Q6H PRN PRN IV Metoprolol Tartrate (LOPRESSOR) 50 MG Q12HR PO (DC) Results Findings/Data: Laboratory Tests 08/11 08/10 08/10 08/10 0210 2138 1819 1747 Blood Gas Puncture Site Art Line Art Line [...] (-4.0 - 4.0 -3.3 -3.1 -2.3 -5.8 L MMOL/L) ABG Hematocrit (37.5 - 50.7 %) 28 [...] Calcium (1.12 - 1.32 1.23 1.17 1.17 1.18 MMOL/L) Lactic Acid (0.9 - 1.7 mmol/l) 0.9 1.0 1.6 1.6 Temperature (F) 98 98 O2 Delivery Device Room Air HFNC Adult Vent Adult Vent Vent Mode CPAP/PS CPAP/PS Vent Rate (/MIN) 17 22 FiO2 (%) 40 40 PEEP (cmH2O) 5 5 Pressure Support (cmH2O) 10 10 08/10 08/10 08/10 08/10 1559 1502 1431 1358 Blood Gas Puncture Site Art Line O2 [...] 08/11 08/11 08/11 0810 0614 0440 0213 0210 Chemistry Sodium (134 - 147 mEq/L) 142 [...] 08/10 08/10 08/10 1659 1600 1600 1559 1502 Chemistry Sodium (134 - 147 mEq/L) 140 [...] INR (0.8 - 1.2) 1.5 H PTT ([place]) (25.0 - 39.5 Seconds) 32.6 PT Patient/Control [...] - 32.0 %) 5.2 L 3.8 L Briscoe % (Auto) (4.8 - 9.0 %) 8.7 1.8 L Eos % (Auto) (0.3 - 3.7 %) 0.1 L 0.3 Baso % (Auto) (0.0 - 2.0 %) 0.2 0.2 Neut # (Auto) (2.0 - 7.6 x10 3/uL) 10.86 H 16.78 H Lymph # (Auto) (1.0 - 3.8 x10 3/uL) 0.66 L 0.69 L Briscoe # (Auto) (0.1 - 0.8 x10 3/uL) [...] 0.00 Platelet Estimate (ADEQUATE THOUSAND) 100-125 Radiology data: Recent Impressions: RADIOLOGY - XR CHEST 1 V 08/10 1551 Report Impression - Status: SIGNED Entered: 08/10/2022 1835 IMPRESSION: Status post median sternotomy and CABG with multiple support line and tube placement, as described above. Impression By: Daphne Sullivan M.D. RADIOLOGY - XR CHEST 1 V 08/11 0500 Report Impression - Status: SIGNED Entered: 08/11/2022 0732 IMPRESSION: Cardiomegaly with opacity at the left lung base. Impression By: Miriam Loredo M.D. Results: labs reviewed, vital signs stable, rythm personally rev'd, x-ray personally reviewed, current med profile rev'd Treatment Prophylaxis Treatment Prophylaxis Oxygen: nasal cannula Lines: arterial, CVC, peripheral CVC/PICC documentation: The data below has been imported from nursing documentation. Any exceptions have been noted below under Provider comments. CVC/PICC insertion date/time: CVC multi lumen triple Internal jugular Right Inserted 08/10/22 1030 Provider comments on imported nursing data: [] Drain(s)/tube(s): Drain(s)/tube(s): chest, urinary catheter Diagnosis, Assessment Plan Hospital course to date: 82 year old with PMH of hypertension, atrial fibrillation, On Eliquis, Hx of SVT ablation 20 years ago transferred to [facility] with new findings of multi-vessel CAD. He reports he was woken from Sleep on Sunday AM with COmplaints of chest pains. EMS aas called and patient was taken to [facility]. He underwent LHC and found to have multi-vessel CAD by Dr Sanchez. Patient was transferred to [facility] for CABG. Patient lives independently. Daughter is at bedside. Patient reports last dose of Elliquis was Sunday AM. Echo was done at [facility] showing EF 55%, Mild MR, Mild AI, mild LVH. According to his records, he has a hx of Chronic kidney disease with baseline Creatine reportedly 1.5. He does report he has seen a renal MD in the past. Assessment/ Plan 1) CAD, Mutli-vessel 2) hypertension Continue BBLKR Add Norvasc 5 mg 3) Atrial fibrillation. Last dose of Eliquis Sunday AM Obtain EKG 4) BPH Continue flomax Workup for CABG underway. Patient was seen and examined by Dr Dee. Coronary artery bypass surgery was discussed with the patient. The risk of the operation, including the STS score, cristian of blleding, infection, heart attack, stroke, Tracheostomy etc discussed with the patient. CT chest, carotid US, Vein mapping ordered. 08/11/22 POD 1 s/p CABG x 5 (NGUYEN-LAD, SVG-Olga Lidia, SVG-OM, SVG-LPLA, SVG-PDA), PVI, ALAA, EVH (RGSV) Patient hemodynamically stable this morning, having episodes of vagal response and BP drops 20 points, SR and sinus arrythmnia noted on nuclear monitoring technician, V epicardial wires on backup rate of 50 Amiodarone bolus and drip Keep MS chest tube and monitor outputs, DC LP chest tube after ambulation Minimal oxygen requirements on 2l nasal cannula, encourage deep breathing and I- S use CXR and labs reviewed Pain management Glycemic control on insulin drip Cardiac diet, nutritional supplements Bowel regimen, + gas Strict I Os, daily weights, albmuin x 1 given for decreased UOP- monitor hourly SCDs for DVT and PPI for GI prophylaxis PT/OT Monitor patient closely in CVICU, continue supportive care Patient seen with Dr. Dee, plan of care discussed with ICU team. at 1509 at 0947 RPT #:[id number] END OF REPORT [facility] 2022-08-11 08:49:00 [facility] Critical Care Progress Note REPORT#:[id number] REPORT STATUS: Signed DATE:08/11/22 TIME: 0849 PATIENT: BRENNAN AHN UNIT #: [id number] ROOM/BED: [place] [id number] : 42 AGE: 82 SEX: M ATTEND: Salazar Dee MD ADM AUTHOR: Breezy Nance MD * ALL edits or amendments must be made on the electronic/computer document * Subjective Chief complaint: CABG HPI: 82-year-old male with history of hypertension, A-fib on [...] 2 mics of epinephrine and insulin drip. Comments: The patient offers no new complaints No SOB Was placed on nasal cannula from room air Paced at 60 Off pressors Low urine output Afebrile Review of Systems Free Text ROS Notes Free Text ROS Notes: 12 point Review of Systems was performed to the extent possible including discussion with the nursing staff and review of vital signs and all data. All systems negative other than pertinent negative/positive findings mentioned in the interval history section. Objective General VS/I O Last Documented: Result Date Time B/P 99/58 08/11 829 B/P Mean 72 08/11 829 Pulse Ox 100 08/11 828 Pulse 63 08/11 828 Resp 27 08/11 828 Temp 36.5 08/11 07 FiO2 35 08/11 0315 O2 Delivery High flow nasal cannula 08/11 1999 O2 Flow Rate 1 08/11 1999 24 hour I O ending at 0700: 08/11 0708/10 1900 Intake Total 1103.00 3315.00 Output Total 955 1230 Balance 148.00 2085.00 Intake, IV 863.00 1015.00 Intake, Oral 240 300 Intake, Other 2000 Output, Chest 350 220 Tube Drainage Output, 300 Estimated Blood Loss Output, Urine 605 710 Patient 100.5 kg 100.5 kg Weight Weight Bed scale Bed scale Measurement Method PATIENT WEIGHT: Weight (lb): 221 Weight (oz): 9.03 Weight (kg): 100.500 Medications: Active Meds + DC'd Last 24 Hrs Ipratropium Kingston (ATROVENT) 500 MCG Q2H PRN PRN INH [...] ASDIR IV (CKD) Dextrose/Water (D5%W NON-DEHP) 250 ML Amiodarone HCl (NEXTERONE 150MG/D5W 100ML) 100 ML [...] (CKD) Sodium Chloride (SODIUM CHLORIDE 0.9%) 500 ML Dextrose/Water (DEXTROSE 10% IN WATER) 125 ML ASDIR PRN IV (CKD) Dextrose/Water (DEXTROSE 10% IN WATER) 250 ML ASDIR PRN IV (CKD) Epinephrine (ADRENALIN CHLORIDE) 4 MG ASDIR IV Dextrose/Water (DEXTROSE 5% WATER) 246 ML Glucagon (GLUCAGON) 1 MG ASDIR PRN IM Insulin Human Regular (HumuLIN R) 100 UNIT ASDIR IV (CKD) Sodium Chloride (SODIUM CHLORIDE 0.9%) 99 ML Ipratropium [place] (ATROVENT) 500 MCG Q4H INH Magnesium Sulfate [...] (ZOFRAN) 0 .STK-MED ONE .ROUTE (DC) Rocuronium Kingston (ZEMURON) 0 .STK-MED ONE IV (DC) Aminocaproic Acid (AMICAR) 0 .STK-MED ONE IV (DC) Epinephrine HCl (EPINEPHrine 4 mg/D5W 250 mL) 250 ML .STK-MED ONE IV (DC ) Heparin Sodium (HEPARIN SODIUM) 0 .STK-MED ONE [...] (DC) Sodium Chloride (SODIUM CHLORIDE 0.9%) 250 ML Verapamil HCl (ISOPTIN) 16.6 MG .Q24H ONE IV (DC) Heparin Sodium (Porcine) (HEPARIN SODIUM) 1,660 UNIT Sodium Bicarbonate (SODIUM BICARBONATE) 0.7 ML Nitroglycerin/Dextrose (NITROGLYCERIN 50MG/D5W 250ML) 8.3 MG Lactated Ringer's (LACTATED RINGERS) 949.5 ML Melatonin (Melatonin) 6 MG BEDTIME PRN PRN PO Acetaminophen (TYLENOL EXTRA STRENGTH) 1,000 MG PREOP ONCALL PO (DC) Mupirocin (BACTROBAN 2% 22 GM OINTMENT) 1 APPLIC BID NASAL (DC) Hydralazine HCl (APRESOLINE) 10 MG Q6H PRN PRN IV Metoprolol Tartrate (LOPRESSOR) 50 MG Q12HR PO (DC) Results Findings/data: Laboratory Tests 08/11 08/10 08/10 08/10 0210 2138 1819 1747 Blood Gas Puncture Site Art Line Art Line [...] (-4.0 - 4.0 -3.3 -3.1 -2.3 -5.8 L MMOL/L) ABG Hematocrit (37.5 - 50.7 %) 28 [...] Calcium (1.12 - 1.32 1.23 1.17 1.17 1.18 MMOL/L) Lactic Acid (0.9 - 1.7 mmol/l) 0.9 1.0 1.6 1.6 Temperature (F) 98 98 O2 Delivery Device Room Air HFNC Adult Vent Adult Vent Vent Mode CPAP/PS CPAP/PS Vent Rate (/MIN) 17 22 FiO2 (%) 40 40 PEEP (cmH2O) 5 5 Pressure Support (cmH2O) 10 10 08/10 08/10 08/10 08/10 1559 1502 1431 1358 Blood Gas Puncture Site Art Line O2 [...] 08/11 08/11 08/11 0810 0614 0440 0213 0210 Chemistry Sodium (134 - 147 mEq/L) 142 [...] 08/10 08/10 08/10 1659 1600 1600 1559 1502 Chemistry Sodium (134 - 147 mEq/L) 140 [...] - 32.0 %) 5.2 L 3.8 L Briscoe % (Auto) (4.8 - 9.0 %) 8.7 1.8 L Eos % (Auto) (0.3 - 3.7 %) 0.1 L 0.3 Baso % (Auto) (0.0 - 2.0 %) 0.2 0.2 Neut # (Auto) (2.0 - 7.6 x10 3/uL) 10.86 H 16.78 H Lymph # (Auto) (1.0 - 3.8 x10 3/uL) 0.66 L 0.69 L Briscoe # (Auto) (0.1 - 0.8 x10 3/uL) [...] Estimate (ADEQUATE THOUSAND) 100-125 Laboratory Tests 08/11/22 0213: [Embedded Image Not Available] 08/10/22 1600: [Embedded Image Not Available] Microbiology: 08/09 1825 NASAL: MRSA DNA Surveillance Screen - ORD 08/09 170 NASAL: MSSA Surveillance Screen - COLB 08/09 1700 NASAL: MRSA DNA Surveillance Screen - COLB Radiology data Recent Impressions: RADIOLOGY - XR CHEST 1 V 08/10 1551 Report Impression - Status: SIGNED Entered: 08/10/2022 1976 IMPRESSION: Status post median sternotomy and CABG with multiple support line and tube placement, as described above. Impression By: Daphne - Morteza Sullivan M.D. RADIOLOGY - XR CHEST 1 V 08/11 0500 Report Impression - Status: SIGNED Entered: 08/11/2022 0732 IMPRESSION: Cardiomegaly with opacity at the left lung base. Impression By: Miriam - Aniket Loredo M.D. Free Text Obj Notes Free Text Obj Notes: GEN: Patient is calm and in no distress. NECK: Supple, no JVD or thrush. No adenopathy. LUNGS: Clear lungs, no wheezes, no rales or crackles. CV: Irregularly irregular, no murmurs are heard. No S3 or rubs. GI: Abdomen is soft, not tender. Bowel sounds are present. EXT/Musc: No edema. No clubbing or cyanosis noted. Skin is warm. NEURO: Awake, alert and oriented x 3. No focal findings. Diagnosis, Assessment Plan Problem list/A P: 1. CAD (coronary artery disease) 2. Postoperative pulmonary dysfunction after cardiac surgery 3. S/P CABG x 5 Free text A P: 82-year-old male with history of hypertension, A-fib on [...] Appears intact, keep off sedation, multimodal pain control Respiratory: Sats well, CPAP as tolerated, plan for extubation, ABG and CXR reviewed Cardiovascular: HD unstable on vasopressors, attempt to wean, keep CTs to suction Renal: strict I/Os, monitor Cr and electrolytes, LA clear, judicious resuscitation GI: bedside swallow then oral diet after extubation, bowel regimen, monitor LFTs ID: reactive leukocytosis, trend WBC, continue periop antibiotics per protocol Hem: acute blood loss anemia, monitor Hgb and CTs output, transfuse as needed Endo: Blood glucose control with insulin gtt per protocol Misc: PTOT consult, DVT and GI prophylaxis with DAPT and PPI /10 Continue supplemental oxygen and titrate FiO2 to keep saturation more than 90%. Inhaled bronchodilators as needed IS and LVEP Judicious pain control Aspirin and Plavix Amiodarone p.o. Metoprolol Amiodarone bolus and drip 1 albumin bolus 1 dose of Lasix 20 mg Dopamine drip at 3 mics Monitor kidney function and trend creatinine Monitor and replete electrolytes Strict I O's Cardiac diet with bowel regimen Blood glucose control, sliding scale insulin VTE prophylaxis, DOAC's Stress ulcer prophylaxis, Protonix Discussed with ICU team and cardiac surgery Critical care time 41 minutes at 1833 RPT #:[id number] END OF REPORT [facility] 2022-08-10 18:48:00 [id number] [place] [address] PATIENT NAME: BRENNAN AHN ADMIT DATE: 08/09/22 ACCOUNT NO: [id number] ROOM NO: [id number] AGE: 82 REPORT TYPE: OPERATIVE REPORT SEX: M ADMITTING PHYSICIAN:Salazar Dee MD ATTENDING PHYSICIAN:Salazar Dee MD OPERATION DATE: 08/10/2022 PREOPERATIVE DIAGNOSES: 1. Coronary artery disease. 2. Paroxysmal atrial fibrillation. POSTOPERATIVE DIAGNOSES: 1. Coronary artery disease. 2. Paroxysmal atrial fibrillation. PROCEDURES: 1. Coronary artery bypass graft surgery x5 (NGUYEN to LAD, saphenous vein to diagonal, saphenous vein to marginal, saphenous vein to left ROMARIO, saphenous vein to PDA). 2. Pulmonary vein isolation. 3. Amputation of left atrial appendage. 4. Endoscopic vein harvest (right great saphenous vein). SURGEON: Salazar Dee MD ASSISTANTS: 1. Ranjan Esquivel MD 2. Brenton Kirkpatrick ANESTHESIOLOGIST: Dr. Wood. ANESTHESIA: General endotracheal anesthesia. ESTIMATED BLOOD LOSS: 100 mL. INDICATIONS: Mr. Ahn is an 82-year-old gentleman with severe triple-vessel coronary artery disease and paroxysmal atrial fibrillation. After due preoperative counseling, he was brought to the operating room today for surgical revascularization and pulmonary vein isolation with amputation of left atrial appendage. FINDINGS: 1. Vein was harvested from the right leg using endoscopic vein harvest technique. Vein was of satisfactory quality, measuring about 4 mm in size. 2. Osteoporotic sternum. 3. Good quality NGUYEN measuring 2 mm in size with excellent flow. 4. Normal pericardium without any intrapericardial adhesions and minimal intrapericardial fluid. PATIENT NAME: BRENNAN AHN 5. LAD 2 mm, good quality artery. 6. Diagonal 2 mm, good quality artery. 7. Marginal 2 mm, intramyocardial artery. 8. Left ROMARIO 2 mm, good quality artery. 9. PDA 2 mm, good quality artery. 10. Pulmonary vein isolation was performed by creating a box lesion around right and left superior and inferior pulmonary vein using AtriCure device. 11. Left atrial appendage was amputated half a centimeter from the base. This was then repaired with two layers of running pledgeted 4-0 Prolene suture. DESCRIPTION OF PROCEDURE: Mr. Ahn was identified in the preoperative holding unit and brought to the OR and placed supine on the operating table. After induction of general endotracheal anesthesia, Longo catheter, radial arterial line, antibiotics were placed. The patient's anterior torso and both lower extremities were prepped and draped in standard surgical fashion. Vein was harvested from the right leg using endoscopic vein harvest technique. Following harvesting of vein, subcutaneous tissue was closed with 2-0 Vicryl and skin with 4-0 Vicryl. Simultaneously, median sternotomy was performed and the left internal mammary artery was harvested. The patient was heparinized. Pericardium was opened longitudinally and pericardial well was created. Cardiopulmonary bypass was instituted using ascending aorta and 3-stage cannula in the right atrium. The patient was cooled to 34 degrees centigrade. Crossclamp was applied and the heart was arrested with 1.5 liters of antegrade cold blood cardioplegia. Cardioplegia was repeated at an interval of 10 minutes throughout the duration of cross-clamp. We began by dissecting on the right superior and inferior pulmonary vein. A red rubber catheter was passed around the right-sided vein. This was then used to guide the AtriCure device and a box lesion x2 was created around the right superior and inferior pulmonary veins using AtriCure device. Next, dissection was performed on the left superior and inferior pulmonary vein. Red rubber catheter was passed. This was used to guide the AtriCure device and a box lesion x2 were created around left superior and inferior pulmonary veins using AtriCure device. Next, left atrial appendage was amputated half a centimeter from the base. This was then repaired with two layers of running pledgeted 4-0 Prolene suture. Next, the PDA was explored. This was a good quality artery, measuring 2 mm in size. Arteriotomy was performed with a [place] blade and extended with Blackman scissors. A segment of previously harvested reverse saphenous vein was anastomosed in an end-to-side manner using running 7-0 Prolene suture. Vein graft to PDA was brought along of the right side of the heart and sized. Aortotomy was performed on the right aspect of the aorta using 4 mm punch. Proximal anastomosis of the PDA graft was then performed running 6-0 Prolene suture. Next, the left ROMARIO was explored. This was a good quality artery, measuring 2 mm in size. Arteriotomy was performed with a [place] blade and extended with Blackman scissors. A segment of previously harvested reverse saphenous vein was anastomosed in an end-to-side manner using running 7-0 Prolene suture. Vein graft to left ROMARIO was brought along the left side of the heart and sized. Aortotomy was performed on the left aspect of the aorta using 4 mm punch. Proximal anastomosis of the left ROMARIO graft was then performed using running 6-0 Prolene suture. Next, the marginal was explored. This was intramyocardial artery measuring about 2 mm in size. Arteriotomy was performed with [place] blade and extended with Blackman scissors. A segment of previously harvested reverse saphenous vein was anastomosed in an end-to-side manner using running 7-0 Prolene suture. Vein graft to marginal was brought along the left side of the heart and sized. Aortotomy was performed on the left aspect of the aorta using 4 mm punch. Proximal anastomosis of the PATIENT NAME: BRENNAN AHN marginal graft was then performed using running 6-0 Prolene suture. Rewarming was commenced at this stage. Next, the diagonal was explored. This was a good quality artery, measuring 2 mm in size. Arteriotomy was performed with a [place] blade and extended with Blackman scissors. A segment of previously harvested reverse saphenous vein was anastomosed in an end-to-side manner using running 7-0 Prolene suture. Vein graft to diagonal was brought to the left side of the heart and sized. Aortotomy was performed on the left aspect of the aorta using 4 mm punch. Proximal anastomosis of the diagonal graft was then performed using running 6-0 Prolene suture. Finally, LAD was explored. This was a good quality artery, measuring 2 mm in size. Arteriotomy was performed with a [place] blade and extended with Blackman scissors. NGUYEN was anastomosed in end-to-side manner using running 8-0 Prolene suture. NGUYEN was tacked to the epicardium using two interrupted 6-0 Prolene sutures. A slit was made in the pericardium on the left aspect, so as to accommodate the NGUYEN. Careful de-aeration was performed and the crossclamp was released. One ventricular wire was placed. A 28-[place] chest tube was placed in the mediastinum and 28-angled chest tube was placed in the left pleural space. Once the patient was at temperature, he was weaned off cardiopulmonary bypass with minimal inotropic support. Heparin was reversed with protamine. Decannulation was uneventful. After confirming hemostasis, the chest was closed in layers using stainless steel wires for the sternum, #1 Vicryl for the fascia, 2-0 Vicryl for the subcutaneous tissue and 4-0 Vicryl for the skin. The patient was transferred to the intensive care unit, intubated in stable condition. Dictated By: Salazar Dee MD Date Dictated: 08/10/2022 18:48:16 Date Transcribed: 08/10/2022 23:10:28 [place] [place]: [id number] Authenticated and Edited by Ruth Dee MD On 08/19/22 9:38:36 AM at 0941 PATIENT NAME: BRENNAN AHN [facility] 2022-08-10 18:39:00 [facility] ([facility]) Brief Op Note REPORT#:[id number] REPORT STATUS: Signed DATE:08/10/22 TIME: 1838 PATIENT: BRENNAN AHN UNIT #: [id number] ROOM/BED: [place] [id number] : 42 AGE: 82 SEX: M ATTEND: Salazar Dee MD ADM AUTHOR: Salazar Dee MD * ALL edits or amendments must be made on the electronic/computer document * Op/Inv Proc Note - Brief Pre-procedure diagnosis: CAD PAF Post-procedure diagnosis: same as pre procedure dx Procedures performed: CABG x 5 (NGUYEN-LAD, SVG-Olga Lidia, SVG-OM, SVG-LPLA, SVG-PDA) PVI ALAA EVH (RGSV) Primary Surgeon: Josephine Branch Library Clerk(s): Kaya Piper Findings: LAD-2mm Complications: none Estimated blood loss in ml's: 100 cc Specimens removed/altered: ARISTEO at 1842 RPT #:[id number] END OF REPORT [facility] 2022-08-10 16:18:00 [facility] ([facility]) Critical Care Consult Note REPORT#:[id number] REPORT STATUS: Signed DATE:08/10/22 TIME: 1618 PATIENT: BRENNAN AHN UNIT #: [id number] ROOM/BED: [place] [address] : 42 AGE: 82 SEX: M ATTEND: Salazar Dee MD ADM AUTHOR: Reginaldo Brown MD * ALL edits or amendments must be made on the electronic/computer document * History of Present Illness HPI Requesting clinician: Dr. Dee Reason for consult: postop management Chief complaint: CABG PCP: PCP: No Primary or Family Physician HPI: 82-year-old male with history of hypertension, A-fib on [...] 2 mics of epinephrine and insulin drip. History - Adult longitudinal Past medical history: Reports: Atrial fibrillation, Coronary artery disease, Dementia, Kidney disease/ stones. Additional surgical history: Crevial Laminectomy Family history: Reports: Hypertension. Alcohol use: Denies EtOH use Drug use: Denies recreational drugs Allergies: Coded Allergies: Tgjnxiv-STI-XlM Reductase Inhibitor (Severe, UNKNOWN 08/09/22) Review of Systems ROS Unable to obtain due to: vented Objective Physical Exam VS/I O: Last Documented: Result Date Time Pulse Ox 100 [...] and BMI Weight (kg): 95.500 BMI: 29.4 Medications: Active Meds + DC'd Last 24 Hrs Ipratropium [place] (ATROVENT) 500 MCG Q2H PRN PRN INH [...] (CKD) Sodium Chloride (SODIUM CHLORIDE 0.9%) 500 ML Dextrose/Water (DEXTROSE 10% IN WATER) 125 ML ASDIR PRN IV (CKD) Dextrose/Water (DEXTROSE 10% IN WATER) 250 ML ASDIR PRN IV (CKD) Epinephrine (ADRENALIN CHLORIDE) 4 MG ASDIR IV Dextrose/Water (DEXTROSE 5% WATER) 246 ML Glucagon (GLUCAGON) 1 MG ASDIR PRN IM Insulin Human Regular (HumuLIN R) 100 UNIT ASDIR IV (CKD) Sodium Chloride (SODIUM CHLORIDE 0.9%) 99 ML Ipratropium [place] (ATROVENT) 500 MCG Q4H INH Magnesium Sulfate [...] (ZOFRAN) 0 .STK-MED ONE .ROUTE (DC) Rocuronium [place] (ZEMURON) 0 .STK-MED ONE IV (DC) Aminocaproic Acid (AMICAR) 0 .STK-MED ONE IV (DC) Epinephrine HCl (EPINEPHrine 4 mg/D5W 250 mL) 250 ML .STK-MED ONE IV (DC ) Heparin Sodium (HEPARIN SODIUM) 0 .STK-MED ONE [...] (CKD) Sodium Chloride (SODIUM CHLORIDE 0.9%) 250 ML Verapamil HCl (ISOPTIN) 16.6 MG .Q24H ONE IV (CKD) Heparin Sodium (Porcine) (HEPARIN SODIUM) 1,660 UNIT Sodium Bicarbonate (SODIUM BICARBONATE) 0.7 ML Nitroglycerin/Dextrose (NITROGLYCERIN 50MG/D5W 250ML) 8.3 MG Lactated Ringer's (LACTATED RINGERS) 949.5 ML Melatonin (Melatonin) 6 MG BEDTIME PRN PRN PO Acetaminophen (TYLENOL EXTRA STRENGTH) 1,000 MG PREOP ONCALL PO (DC) Gabapentin (NEURONTIN) 200 MG PREOP ONCALL PO (DC) Mupirocin (BACTROBAN 2% 22 GM OINTMENT) 1 APPLIC BID NASAL (DC) Hydralazine HCl (APRESOLINE) 10 MG Q6H PRN PRN IV Metoprolol Tartrate (LOPRESSOR) 50 MG Q12HR PO (DC) Amlodipine Besylate (NORVASC) 5 MG DAILY PO (DC) Results Findings/Data: Laboratory Tests 08/10/22 1600: [Embedded Image Not Available] 08/10/22 0042: [Embedded Image Not Available] 08/09/22 1751: [Embedded Image Not Available] Laboratory Tests 08/10 08/10 08/10 08/10 1559 1502 1431 1358 Blood Gas Puncture Site Art Line O2 [...] L Temperature (F) 97.5 O2 Delivery Device AerAFINOS Laboratory Tests 08/10 08/10 08/10 08/10 08/10 1600 1600 1559 1502 1431 Chemistry Sodium (134 - 147 mEq/L) 140 [...] 119 H 117 H 116 H 97 08/10 08/10 08/09 08/09 0042 0042 1751 1751 Chemistry Sodium (134 - [...] (0 - 100 PG/ML) 266.0 H 08/09 1751 Chemistry Sodium (134 - 147 mEq/L) 141 [...] 08/10 08/10 08/10 08/09 1304 1240 0042 1751 Coagulation INR (0.8 - 1.2) 1.2 1.1 PTT (Hans) (25.0 - 39.5 Seconds) 36.2 PT Patient/Control [...] - 32.0 %) 3.8 L 19.1 18.3 [place] % (Auto) (4.8 - 9.0 %) 1.8 L 12.8 H 9.3 H Eos % (Auto) (0.3 - 3.7 %) 0.3 2.2 1.6 Baso % (Auto) (0.0 - 2.0 %) 0.2 0.4 0.5 Neut # (Auto) (2.0 - 7.6 x10 3/uL) 16.78 H 5.52 6.14 Lymph # (Auto) (1.0 - 3.8 x10 3/uL) 0.69 L 1.61 1.61 [place] # (Auto) (0.1 - 0.8 x10 3/uL) [...] x10 3/uL) 0.00 0.00 0.00 Laboratory Tests 08/09 2213 Serology SARS-CoV-2 Ag (Rapid) (Negative) Negative Laboratory Tests 08/10 0020 Urines Urine Color (YEL/STRAW) YELLOW Urine Appearance (CLEAR) CLEAR Urine pH (5.0 - 7.0) 5.0 Ur Specific [place] (1.005 - 1.030) 1.015 Urine Protein (NEGATIVE) [...] SEEN Urine Mucus (NONE SEEN /LPF) TRACE Microbiology: 08/09 1825 NASAL: MRSA DNA Surveillance Screen - ORD 08/09 170 NASAL: MSSA Surveillance Screen - COLB 08/09 170 NASAL: MRSA DNA Surveillance Screen - COLB Radiology data: Recent Impressions: RADIOLOGY - XR CHEST 2 V 08/09 1655 Report Impression - Status: SIGNED Entered: 08/09/2022 1904 IMPRESSION: Left basilar opacities may represent atelectasis and/or consolidation. Impression By: Vamshi - Eric Edgar M.D. CAT SCAN - CT CHEST W/O CONTRAST 08/09 1715 Report Impression - Status: SIGNED Entered: 08/09/2022 1926 IMPRESSION: 1. Ectatic, nonaneurysmal aortic root (37 mm) with [id number] calcification. 2. Remaining thoracoabdominal aorta is normal [...] characterization, if indicated. COMMENTS: Consistent with the [employer]'s Incidental Findings Committee white paper (J Am Parminder Radiol 2018): Any incidental renal lesion less than 1 cm or classified as too small to characterize, or any incidental cystic renal lesion characterized as simple-appearing, is likely benign. No follow-up imaging is recommended for these lesions per consensus recommendations based on imaging criteria. Impression By: [email or web address] - Brandon Beth M.D. ULTRASOUND - DUP VEIN ANCA 08/09 175 Report Impression - Status: SIGNED Entered: 08/09/2022 1858 IMPRESSION: Greater saphenous vein is patent. Vein mapping as described. Impression By: [email or web address] - Eric Edgar M.D. ULTRASOUND - DUP EXTRACRANIAL ANCA 08/09 175 Report [...] is no detectable patent lumen. Impression By: SunilO Akash Loredo M.D. Free Text Obj Notes Free Text Obj Notes: General appearance: Elderly male in no acute distress Head/Eyes: atraumatic, normocephalic ENT: dry mucosal membranes, ETT in place Neck: full range of motion, supple/no meningismus Cardiovascular: S1-S2 regular rate and rhythm, V-paced Respiratory: symmetric expansion, no acute respiratory distress Abdomen: soft, non-tender, no distention, no guarding Genitourinary: longo with clear urine Extremities: pedal pulses, moves all, no clubbing, RUE bruising/ecchymosis, no edema Vascular pulse assessment: palpated: R posterior tibialis, L posterior tibialis, R dorsalis pedis, L dorsalis pedis Musculoskeletal: normal inspection, no muscle spasm Neuro/GATE GUARD: Sedated but arousable, CNII-XII grossly intact, no motor deficits Skin: dry, intact and clean surgery dressing Diagnosis, Assessment Plan Diagnosis, Assessment Plan Problem list/A P: 1. CAD (coronary artery disease) 2. Postoperative pulmonary dysfunction after cardiac surgery 3. S/P CABG x 5 Orders: Procedure Date/time Status Medication Management Message 08/10 5375 Complete Plan discussed with: family, consultants, nurse, interdisc care team, pharmacy/ pharmacist Critical care time: Minutes: 45 Free text DxA P: 82-year-old male with history of hypertension, A-fib on [...] Appears intact, keep off sedation, multimodal pain control Respiratory: Sats well, CPAP as tolerated, plan for extubation, ABG and CXR reviewed Cardiovascular: HD unstable on vasopressors, attempt to wean, keep CTs to suction Renal: strict I/Os, monitor Cr and electrolytes, LA clear, judicious resuscitation GI: bedside swallow then oral diet after extubation, bowel regimen, monitor LFTs ID: reactive leukocytosis, trend WBC, continue periop antibiotics per protocol Hem: acute blood loss anemia, monitor Hgb and CTs output, transfuse as needed Endo: Blood glucose control with insulin gtt per protocol Misc: PTOT consult, DVT and GI prophylaxis with DAPT and PPI at 1534 RPT #:[id number] END OF REPORT [facility] 2022-08-10 16:14:00 [id number] [address] PATIENT NAME: BRENNAN AHN ADMIT DATE: 08/09/22 ACCOUNT NO: [id number] ROOM NO: [facility] [place]GE: 82 REPORT TYPE: eELECTROCARDIOGRAM REPORT SEX: M ADMITTING PHYSICIAN:Salazar Dee MD ATTENDING PHYSICIAN:Salazar Dee MD Order: [id number] Test Reason : CV SURGRY Test Date/Time Stamp: SunAug 10 2022 16:14:48 Blood Pressure : / mmHG Vent. Rate : 051 BPM Atrial Rate : 051 BPM P-R Int : 338 ms QRS Dur : 098 ms QT Int : 462 ms P-R-T Axes : 073 080 074 degrees QTc Int : 425 ms Sinus bradycardia with marked sinus arrhythmia with 1st degree AV block Otherwise normal ECG When compared with ECG of 09-AUG-2022 21:46, Significant changes have occurred Confirmed by GEOVANNY RENAE MDH ([id number]) on 08/12/2022 6:14:26 AM Referred By: DIFFERENTIAL SPECIALIST Confirmed by:GAVI RENAE MD at 0614 PATIENT NAME: BRENNAN AHN [facility] 2022-08-10 09:35:00 [facility] ([facility]) Clinical Note REPORT#:[id number] REPORT STATUS: Signed DATE:08/10/22 TIME: 934 PATIENT: BRENNAN AHN UNIT #: [id number] ROOM/BED: [place] [address] : 42 AGE: 82 SEX: M ATTEND: Salazar Dee MD ADM AUTHOR: Brenton Kirkpatrick MD * ALL edits or amendments must be made on the electronic/computer document * Clinical Note Note: STS RISK SCORES Procedure: Isolated CABG Risk of Mortality: 1.380% Renal Failure: 0.962% Permanent Stroke: 0.909% Prolonged Ventilation: 5.288% DSW Infection: 0.139% Reoperation: 2.636% Morbidity or Mortality: 8.914% Short Length of Stay: 42.855% Long Length of Stay: 4.225% at 0936 RPT #:[id number] END OF REPORT [facility] 2022-08-09 21:46:00 [id number] [place] [address] PATIENT NAME: BRENNAN AHN ADMIT DATE: 08/09/22 ACCOUNT NO: [id number] ROOM NO: AGE: 82 REPORT TYPE: eELECTROCARDIOGRAM REPORT SEX: M ADMITTING PHYSICIAN:Salazar Dee MD ATTENDING PHYSICIAN:Salazar Dee MD Order: [id number] Test Reason : PRE CABG Test Date/Time Stamp: SunAug 09 2022 21:46:57 Blood Pressure : / mmHG Vent. Rate : 080 BPM Atrial Rate : 000 BPM P-R Int : 000 ms QRS Dur : 096 ms QT Int : 384 ms P-R-T Axes : 000 078 100 degrees QTc Int : 442 ms Atrial fibrillation Abnormal ECG No previous ECGs available Confirmed by GAVI RENAE MD ([id number]) on 08/10/2022 8:28:13 AM Referred By: Thompson Dee Confirmed by:GAVI RENAE MD at 0828 PATIENT NAME: BRENNAN AHN [facility] 2022-08-09 21:11:00 [facility] ([facility]) History Physical - Adult REPORT#:[id number] REPORT STATUS: Signed DATE:08/09/22 TIME: 2110 PATIENT: BRENNAN AHN UNIT #: [id number] ROOM/BED: [place] [address] : 42 AGE: 82 SEX: M ATTEND: Salazar Dee MD ADM AUTHOR: Pamela Burnette * ALL edits or amendments must be made on the electronic/computer document * Pamela Burnette 08/09/222110: History of Present Illness HPI Chief complaint: Chest Pain, Coronary artery Disease PCP: PCP: No Primary or Family Physician HPI: 82 year old with PMH of hypertension, atrail fibrillation, On Elliquis, Hx of SVT ablation 20 years ago trasnferred to [facility] with new findings of multi-vessel CAD. He reports he was awekne from [place] on Sunday AM with COmplaints of chest pains. EMS was called and patient was taken to [facility]. He underwent LHC and found to have multi-vessel CAD by Dr Sanchez. Patient was transferred to [facility] for CABG. Patient lives independently. Daughter is at bedside. Daughter reports recent concerns regarding his memeory. She does report he was told by his primary MD he likely has Alzheimers, however he has not been evaluated by Nerology. Patient reports last dose of Elliquis was Satuday AM. Echo was done at [facility] showing EF 55%, Mild MR, Mild AI, mild LVH. According to his records, he has a hx of Chronic kidney disease with baseline Creatine reportedly 1.5. He does report he has seen a renal spcialist in the past. History Past medical history: Reports: Atrial fibrillation, Coronary artery disease, Dementia, Kidney disease/ stones. Additional surgical history: Crevial Laminectomy Family history: Reports: Hypertension. Alcohol use: Denies EtOH use Drug use: Denies recreational drugs Medication/Allergy-Vaccine Hx Allergies: Coded Allergies: Vuxivus-IGO-BrU Reductase Inhibitor (Severe, UNKNOWN 08/09/22) Review of Systems Constitutional: Denies: chills, fatigue, fever, generalized weakness. Skin: Denies: bruising, laceration, rash, swelling. Eyes: Denies: redness, discharge, diplopia. ENT: Denies: throat pain, throat swelling. Respiratory: Denies: JANG (dyspnea on exertion), hemoptysis, parox nocturnal dyspnea. Cardiovascular: Reports: chest pain. Denies: JANG (dyspnea on exertion), edema, palpitations. GI: Denies: constipation, diarrhea. : Denies: dysuria, hematuria. Heme: Denies: bleeding, bruising. Endocrine: Denies: polydipsia, polyuria. Neuro: Reports: other (Memory decline). Psych: Denies: agitation, anxiety, confusion. All systems rev neg: except as marked Physical Exam VS/I O Vital Signs: Date Time Temp Pulse Resp B/P B/P Pulse O2 O2 Flow FiO2 Mean Ox Delivery Rate 08/09 2018 97.7 87 19 142/70 94.2 98 Room air 08/09 1826 83 19 196/91 126.1 97 Room air 08/09 1822 83 20 196/99 131 08/09 1634 98.4 81 20 176/114 134.6 98 Room air PATIENT WEIGHT: Weight (lb): 208 Weight (oz): 5.39 Weight (kg): 94.500 General appearance: alert, awake, oriented Head/Eyes: atraumatic, clear cornea, EOMI ENT: moist mucosal membranes, normal dentition Neck: full range of motion, non-tender Cardiovascular: normal capillary refill, regular rate rhythm, normal heart sounds Respiratory: clear to auscultation, no distress Abdomen/GI: active bowel sounds, soft, non-tender Extremities: moves all, no edema-all extremities Musculoskeletal: full range of motion, normal inspection Neuro/GATE GUARD: alert, oriented X 3 Skin: dry, intact Lymphatic: no lymphadenopathy Diagnosis, Assessment Plan Free Text DxA P Notes Free Text DxA P Notes: 82 year old with PMH of hypertension, atrial fibrillation, On Eliquis, Hx of SVT ablation 20 years ago transferred to [facility] with new findings of multi-vessel CAD. He reports he was woken from Sleep on Sunday with COmplaints of chest pains. EMS aas called and patient was taken to [facility]. He underwent LHC and found to have multi-vessel CAD by Dr Sanchez. Patient was transferred to [facility] for CABG. Patient lives independently. Daughter is at bedside. Patient reports last dose of Elliquis was Sunday. Echo was done at [facility] showing EF 55%, Mild MR, Mild AI, mild LVH. According to his records, he has a hx of Chronic kidney disease with baseline Creatine reportedly 1.5. He does report he has seen a renal MD in the past. Assessment/ Plan 1) CAD, Mutli-vessel 2) hypertension Continue BBLKR Add Norvasc 5 mg 3) Atrial fibrillation. Last dose of Eliquis Saturday AM Obtain EKG 4) BPH Continue flomax Workup for CABG underway. Patient was seen and examined by Dr Dee. Coronary artery bypass surgery was discussed with the patient. The risk of the operation, including the STS score, cristian of blleding, infection, heart attack, stroke, Tracheostomy etc discussed with the patient. CT chest, carotid US, Vein mapping ordered. Salazar Dee 08/14/221930: Attestations Physician Attestation Agree w/findings plan: I have seen and examined Mr Ahn. I agree with the findings and plan as documented by ALVAREZ Uribe. Briefly, 82 YO male transferred from [place] with severe CAD. Patient will benefit from surgical revascularization. I have explained to him the procedure, risk involved, benefit, alternatives, STS risk score, and the benefit. Patient has agreed for surgery.I am making arrangement for Mr Ahn to have CABg in the near future. at 7950 at 1948 [facility] #:[id number] END OF REPORT [facility]
--- NOTE | 2024-05-04 05:29 | ER ---
Nurse's Notes [facility] Name: Tim Ahn Age: 83 yrs Sex: Male : 1940 Arrival Date: 05/04/2024 Time: 02:56 Bed 13 Private MD: Diagnosis: Acute fall from standing, Acute Closed Head injury , Posterior scalp contusion Presentation: 05/04 03:05 Chief complaint: EMS states: PT WAS GOING TO THE BATHROOM, SLIPPED AND FELL BACK INTO dd2 THE TV, HITTING HIS HEAD. WITNESSED FALL, NO LOC. PT NOT ON BLOOD THINNERS. Coronavirus screen: At this time, the client does not indicate any symptoms associated with coronavirus-19. Ebola Screen: No symptoms or risks identified at this time. Initial Sepsis Screen: Does the patient meet any 2 criteria? No. Patient's initial sepsis screen is negative. Does the patient have a suspected source of infection? No. Patient's initial sepsis screen is negative. Risk Assessment: Do you want to hurt yourself or someone else? Patient reports no desire to harm self or others. Onset of symptoms was May 04, 2024. 03:05 Method Of Arrival: EMS: [facility] dd2 03:05 Acuity: LUCIEN 3 dd2 Historical: - Allergies: 03:05 Aggrenox; dd2 03:05 Dexamethasone; dd2 03:05 Diltiazem; dd2 03:05 Diovan; dd2 03:05 Enalapril; dd2 03:05 guanfacine; dd2 03:05 Lisinopril; dd2 03:05 Jnwpbct-Ddo-Orm Reductase Inhibitors; dd2 03:05 valsartan; dd2 - PMHx: 03:05 Alzheimer's disease; Anemia; Atrial Fib; BPH; COPD; coronary atherosclerosis; Dementia; dd2 Hypertension; Myocardial infarction; SVT; - PSHx: 03:05 Aortocoronary Bypass Graft; left knee; dd2 - Immunization history:: Adult Immunizations unknown. - Infectious Disease History:: Denies. - Social history:: Smoking status: Patient denies any tobacco usage or history of. - Family history:: not pertinent. Screenin:15 [facility] ED Fall Risk Assessment (Adult) History of falling in the last 3 months, dd2 including since admission Yes- single mechanical fall (1 pt) Confusion or Disorientation No (0 pts) Intoxicated or Sedated No (0 pts) Impaired Gait No (0 pts) Mobility Assist Device Used Yes (1 pt) Altered Elimination No (0 pt) Score/Fall Risk Level 0 - 2 = Low Risk Oriented to surroundings, Maintained a safe environment, Educated pt \T\ family on fall prevention, incl call for assistance when getting out of bed, Assessed \T\ reinforced patient's understanding of fall precautions, Hourly rounding (assess needs \T\ fall precautionary measures) done. Abuse screen: Denies threats or abuse. Nutritional screening: No deficits noted. Tuberculosis screening: No symptoms or risk factors identified. Assessment: 03:15 General: Appears in no apparent distress. Behavior is calm, cooperative, appropriate dd2 for age. Pain: Complains of pain in anterior aspect of right ankle Pain does not radiate. Pain currently is 4 out of 10 on a pain scale. Neuro: Level of Consciousness is awake, alert, obeys commands, Oriented to person, place, situation. Cardiovascular: Patient's skin is warm and dry. Respiratory: Airway is patent Respiratory effort is even, unlabored, Respiratory pattern is regular, symmetrical. GI: No deficits noted. No signs and/or symptoms were reported involving the gastrointestinal system. Abdomen is non-distended, Abd is soft and non tender X 4 quads. : No deficits noted. No signs and/or symptoms were reported regarding the genitourinary system. EENT: No deficits noted. No signs and/or symptoms were reported regarding the EENT system. Derm: Bruising that is dark purple, on SCATTERED BRUISING BUE. Musculoskeletal: Circulation, motion, and sensation intact. Range of motion: intact in all extremities. 05:56 Reassessment: [facility] NOTIFIED OF D/CWilfred VENEGAS NOTIFYING FAMILY TO ARRANGE dd2 PICK-UP. Vital Signs: 03:05 BP 160 / 84; Pulse 72; Resp 16; Temp 98.4(O); Pulse Ox 99% on R/A; Weight 83.91 kg; dd2 Height 6 ft. 1 in. ; 04:01 BP 145 / 78; Pulse 55; Resp 16; Pulse Ox 97% on R/A; dd2 06:11 BP 162 / 94; Pulse 76; Resp 16; Temp 98.4; Pulse Ox 97% on R/A; dd2 03:05 Body Mass Index 24.41 (83.91 kg, 185.42 cm) dd2 Sean Coma Score: 03:15 Eye Response: spontaneous(4). Motor Response: obeys commands(6). Verbal Response: dd2 oriented(5). Total: 15. 19:17 Eye Response: spontaneous(4). Motor Response: obeys commands(6). Verbal Response: sp4 oriented(5). Total: 15. ED Course: 02:57 Patient arrived in ED. [id number] 03:05 Arm band placed on right wrist. Patient placed in an exam room, on a stretcher, on dd2 pulse oximetry. 03:12 Maninder Flores MD is Attending Physician. sp4 03:15 Patient has correct armband on for positive identification. Bed in low position. Call dd2 light in reach. Side rails up X2. Client placed on continuous cardiac and pulse oximetry monitoring. NIBP monitoring applied. Door closed. Noise minimized. Warm blanket given. Pillow given. Verbal reassurance given. 03:15 No provider procedures requiring assistance completed. Patient did not have IV access dd2 during this emergency room visit. Patient maintains SpO2 saturation greater than 95% on room air. 03:36 SANDRA SHUKLA, RN is Primary Nurse. dd2 03:42 CT Head Brain wo Cont In Process Unspecified. EDMS 03:42 Triage completed. dd2 06:19 DAUGHTER CALLED STATING [facility]I HAS BEEN CALLED TO TAKE PATIENT BACK T [facility] ETA ty 30-45 MIN. Administered Medications: No medications were administered Medication: 03:15 VIS not applicable for this client. dd2 Outcome: 05:28 Discharge ordered by . sp4 06:43 Discharged to residential. dd2 06:43 Condition: stable 06:43 Discharge instructions given to patient, Instructed on discharge instructions, follow up and referral plans. Demonstrated understanding of instructions, follow-up care, 06:43 Patient left the ED. dd2 Signatures: Dispatcher [employer] EDMS Emmanuel CatrinaManinder Hubbard MD MD sp4 Ramírez Sood DIANA, RN RN dd2
--- NOTE | 2024-05-04 05:29 | EDPHYS ---
Physician Documentation [facility] Name: Tim Ahn Age: 83 yrs Sex: Male : 1940 Arrival Date: 05/04/2024 Time: 02:56 Bed 13 Private MD: ED Physician Maninder Flores HPI: 05/04 05:23 This 83 yrs old Male presents to ER via EMS with complaints of Fall Injury. sp4 19:17 83-year-old male presents with complaint of a headache [facility] Historical: - Allergies: 03:05 Aggrenox; dd2 03:05 Dexamethasone; dd2 03:05 Diltiazem; dd2 03:05 Diovan; dd2 03:05 Enalapril; dd2 03:05 guanfacine; dd2 03:05 Lisinopril; dd2 03:05 Zmiviju-Yke-Mvz Reductase Inhibitors; dd2 03:05 valsartan; dd2 - PMHx: 03:05 Alzheimer's disease; Anemia; Atrial Fib; BPH; COPD; coronary atherosclerosis; Dementia; dd2 Hypertension; Myocardial infarction; SVT; - PSHx: 03:05 Aortocoronary Bypass Graft; left knee; dd2 - Immunization history:: Adult Immunizations unknown. - Infectious Disease History:: Denies. - Social history:: Smoking status: Patient denies any tobacco usage or history of. - Family history:: not pertinent. ROS: 19:17 Constitutional: Negative for fever, chills, and weight loss, Eyes: Negative for injury, sp4 pain, redness, and discharge, positive for head injury 19:17 All other systems are negative, Exam: 19:17 Constitutional: This is a well developed, well nourished patient who is awake, alert, sp4 and in no acute distress. Head/Face: Normocephalic, atraumatic. Eyes: Pupils equal round and reactive to light, extra-ocular motions intact. Lids and lashes normal. Conjunctiva and sclera are not injected. Cornea within normal limits. Periorbital areas with no swelling, redness, or edema. ENT: Nares patent. No nasal discharge, no septal abnormalities noted. Tympanic membranes are normal and external auditory canals are clear. Oropharynx with no redness, swelling, or masses, exudates, or evidence of obstruction, uvula midline. Mucous membranes moist. Neck: Trachea midline, no thyromegaly or masses palpated, and no cervical lymphadenopathy. Supple, full range of motion without nuchal rigidity, or vertebral point tenderness. Chest/axilla: Normal chest wall appearance and motion. Nontender with no deformity. No lesions are appreciated. Cardiovascular: Regular rate and rhythm with a normal S1 and S2. No gallops, murmurs, or rubs. Normal PMI, no JVD. No pulse deficits. Respiratory: Lungs have equal breath sounds bilaterally, clear to auscultation and percussion. No rales, rhonchi or wheezes noted. No increased work of breathing, no retractions or nasal flaring. Abdomen/GI: Soft, with normal bowel sounds. No distension or tympany. No guarding or rebound. No evidence of tenderness throughout. Back: No spinal tenderness. No costovertebral tenderness. Skin: Warm, dry with normal turgor. Normal color with no rashes, no lesions, and no evidence of cellulitis. MS/ Extremity: Pulses equal, no cyanosis. Neurovascular intact. Full, normal range of motion. Neuro: Awake and alert, GCS 15, oriented to person, place, time, and situation. Cranial nerves II-XII grossly intact. Motor strength 5/5 in all extremities. Sensory grossly intact. Psych: Awake, alert, with orientation to person, place and time. Behavior, mood, and affect are within normal limits Vital Signs: 03:05 BP 160 / 84; Pulse 72; Resp 16; Temp 98.4(O); Pulse Ox 99% on R/A; Weight 83.91 kg; dd2 Height 6 ft. 1 in. ; 04:01 BP 145 / 78; Pulse 55; Resp 16; Pulse Ox 97% on R/A; dd2 06:11 BP 162 / 94; Pulse 76; Resp 16; Temp 98.4; Pulse Ox 97% on R/A; dd2 03:05 Body Mass Index 24.41 (83.91 kg, 185.42 cm) dd2 Sean Coma Score: 03:15 Eye Response: spontaneous(4). Motor Response: obeys commands(6). Verbal Response: dd2 oriented(5). Total: 15. 19:17 Eye Response: spontaneous(4). Motor Response: obeys commands(6). Verbal Response: sp4 oriented(5). Total: 15. MDM: 03:13 Medical Screening Exam initiated sp4 05:22 ED course: PROCEDURE: CT Head Without Intravenous Contrast CLINICAL INDICATION: The sp4 patient is 83 years old and is Male; Head injury. TECHNIQUE: Axial computed tomography images of the head/brain without intravenous contrast. Sagittal and coronal reformatted images were created and reviewed. This CT exam was performed using one or more of the following dose reduction techniques: automated exposure control, adjustment of the mA and/or kV according to patient size, and/or use of iterative reconstruction technique. COMPARISON: CT Head 10/01/2022. FINDINGS: BRAIN: Mild bilateral periventricular and deep white matter microangiopathy changes. Mild global cerebral atrophy with commensurate sulcal and ventricular enlargement, not greater than expected for patient age. No extra-axial fluid collection. No intracranial hemorrhage. No transtentorial herniation. No focal sandhu-white matter differentiation abnormality. MIDLINE SHIFT: No midline shift. VENTRICLES: See above. BONES/JOINTS: No fracture of the calvarium or visualized facial bones. SOFT TISSUES: Small posterior inferior right scalp contusion. SINUSES: No masses, bony erosion or evidence of acute sinusitis. MASTOID AIR CELLS: Unremarkable as visualized. No mastoid effusion. ORBITS: Bilateral globes and orbits are intact with no abnormal intraorbital mass, collection, or foreign body. IMPRESSION: 1. Small posterior inferior right scalp contusion. 2. No acute intracranial abnormality. No fracture of the calvarium or visualized facial bones. 3. Chronic and senescent changes, not greater than expected for patient age. Electronically signed by: Joshua Munoz MD 05/04/2024 04:50 AM [employer] . 19:18 Differential diagnosis: closed head injury, contusion, multiple trauma, sprain, strain. sp4 Data reviewed: vital signs, nurses notes, radiologic studies, CT scan. 05/04 03:13 Order name: CT Head Brain wo Cont sp4 Administered Medications: No medications were administered Disposition: 19:19 Chart complete. sp4 Disposition Summary: 05/04/24 05:28 Discharge Ordered Notes: CT head negative, stable for discharge home Location: Home sp4 Problem: new sp4 Symptoms: have improved sp4 Condition: Stable sp4 Diagnosis - Acute fall from standing, Acute Closed Head injury , Posterior scalp contusion sp4 Followup: sp4 - With: Private Physician - When: As needed - Reason: Discharge Instructions: - Discharge Summary Sheet sp4 - Head Injury, Adult, [id number] sp4 Forms: - Patient Portal Instructions sp4 Signatures: Dispatcher [employer] Maninder He MD MD sp4 SANDRA SHUKLA RN RN dd2
--- NOTE | 2024-05-04 06:42 | RAD REPORT ---
PROCEDURE: CT Head Without Intravenous Contrast CLINICAL INDICATION: The patient is 83 years old and is Male; Head injury. TECHNIQUE: Axial computed tomography images of the head/brain without intravenous contrast. Sagittal and coron al reformatted images were created and reviewed. This CT exam was performed using one or more of the following dose reduction techniques: automated exposure control, adjustment of the mA and/or kV according to patient size, and/or use of iterative reconstruction technique. COMPARISON: CT Head 10/01/2022. FINDINGS: BRAIN: Mild bilateral periventricular and deep white matter microangiopathy changes. Mild global cerebral atrophy with commensurate sulcal and ventricular enlargement, not greate r than expected for patient age. No extra-axial fluid collection. No intracranial hemorrhage. No transtentorial herniation. No focal sandhu-white matter differentiation abnormality. MIDLINE SHIFT: No midline shift. VENTRICLES: See above. BONES/JOINTS: No fracture of the calvarium or visualized facial bones. SOFT TISSUES: Small posterior inferior right scalp contusion. SINUSES: No masses, bony erosion or evidence of acute sinusitis. MASTOID AIR CELLS: Unremarkable as visualized. No mastoid effusion. ORBITS: Bilateral globes and orbits are intact with no abnormal intraorbital mass, collection, or f oreign body. IMPRESSION: 1. Small posterior inferior right scalp contusion. 2. No acute intracranial abnormality. No fracture of the calvarium or visualized facial bones. 3. Chronic and senescent changes, not greater than expected for patient age. Electronically signed by: Joshua Munoz MD 05/04/2024 04:50 AM [facility] * Due to temporary technical issues with the PACS/DoubleUp reporting system, reports are being si gned by the in-house radiologist without review as a courtesy to ensure prompt reporting the interpreting radiologist is fully responsible for the content of the report. Transcribed Date/Time: 05/04/2024 6:42 AM
[2024-05-04 09:32] VITALS: TEMP 98.4
[2024-05-04 09:33] VITALS: O2SAT 97
[2024-05-04 09:34] VITALS: BP 162/94
== END 2024-05-04 06:43 | disposition home or self-care (01) ==
LOC: ER 02:56
DX: S00.03XA Contusion of scalp, initial encounter (principal); W18.30XA Fall on same level, unspecified, initial encounter; Y92.099 Unspecified place in other non-institutional residence as the place of occurrence of the external cause; G30.9 Alzheimer's disease, unspecified; F02.80 Dementia in other diseases classified elsewhere, unspecified severity, without behavioral disturbance, psychotic disturbance, mood disturbance, and anxiety; I10 Essential (primary) hypertension; Z95.1 Presence of aortocoronary bypass graft
CPT/HCPCS: 70450; 99283

== ENCOUNTER 2025-01-24 18:28 | Emergency (ER) | payer OTHER ==
--- OUTSIDE RECORDS SUMMARY | 2025-01-24 18:39 | XMS REPORT | Continuity of Care Document ---
Author Name Unknown Address [address] [place] [address] [facility] Address [address] [place] [address] Care Team Providers Care Academic Affairs Specialist Name Role Phone PCP, PATIENT DOES NOT HAVE A Primary Care Physic JEFFERY Paul Attending Clinician Elaina Guevara Attending Clinician + Jeffery Sahu MD Attending Clinician [phone] Elaina Pablo Attending Clinician + Doctor Unassigned, [place] Attending Clinician Arthur Pierce Attending Clinician Salazar Lee Attending Clinician JEFFERY Das Admitting Clinician Jeffery Pitt MD Admitting Clinician [phone] Arthur Fuentes Admitting Clinician Salazar Lee Admitting Clinician Ashwin howell Payers Payer Name Policy Type Policy Number Effective Date Expirati on Date Source [employer] MANAGED MEDICARE PPO-SHERIE [id number] 2022 00:00:00 2024 00:00:00 Allergies, Adverse Reactions, Alerts Allergy Name Allergy Type Status Severity Reaction(s) Onset Date Inactive Date Treating Clinician Comments Source Statins- HMG-CoA Reductas e Inhibito r DA Active SV UNKNOWN 3-15 00:00: 00 [facility] Statins- HMG-CoA Reductas e Inhibito r DA Active SV UNKNOWN 3-08 00:00: 00 [facility] Aspirin- Dipyrida mole Propensi ty to adverse reaction s Active Other - See comments 2017-06 00:00: 00 Headaches and constipat ion [facility] Dexameth asone Propensi ty to adverse reaction s Active Other - See comments 2017-06 00:00: 00 Insomnia [facility] Diltiaze m Propensi ty to adverse reaction s Active Other - See comments 2017-06 00:00: 00 constipat ion [facility] Guanfaci ne Propensi ty to adverse reaction s Active Unknown - See comments 2017-06 00:00: 00 [facility] Lisinopr il Propensi ty to adverse reaction s Active Cough 2017-06 00:00: 00 [facility] Statins- Hmg-Coa Reductas e Inhibito rs Propensi ty to adverse reaction s Active Other - See comments 2017-06 00:00: 00 Muscle cramps [facility] Valsarta n Propensi ty to adverse reaction s Active Cough 2017-06 00:00: 00 Muscle cramps [facility] ASPIRIN- DIPYRIDA MOLE DRUG Active Other-Cmnt 2017-06 00:00: 00 [facility] DEXAMETH ASONE DRUG INGREDI Active Other-Cmnt 2017-06 00:00: 00 [facility] DILTIAZE M DRUG INGREDI Active Other-Cmnt 2017-06 00:00: 00 [facility] GUANFACI NE DRUG INGREDI Active Unknown-Cmnt 2017-06 00:00: 00 [facility] LISINOPR IL DRUG INGREDI Active COUGH 2017-06 00:00: 00 [facility] STATINS- HMG-COA REDUCTAS E INHIBITO RS Drug Class Active Other-Cmnt 2017-06 00:00: 00 [facility] VALSARTA N DRUG INGREDI Active Other-Cmnt 2017-06 0 00:00: 00 [facility] Social History Social Habit Start Date Stop Date Quantity Comments [facility] Alcoholic beverage intake 2023-12-20 00:00:00 2023-12-20 00:00:00 Current non-drinker of alcohol (finding) [facility] Alcohol intake 2023-06-07 00:00:00 2023-06-07 00:00:00 Current non-drinker of alcohol (finding) [facility] History of Social function 2023-06-06 00:00:00 2023-06-06 00:00:00 [facility] Sex assigned at 1940 00:00:00 1940 00:00:00 [facility] Smoking Status Start Date Stop Date Source Never smoked tobacco [facility] Medications Ordered Medication Name Filled Medication Name Start Date Stop Date Current Medication? Ordering Clinician Indication Dosage Frequency Signature (SIG) Comments Components Source rivastigmin e tartrate 1.5 mg capsule 805 00:00: 00 Yes [id number] 1.5mg TAKE 1 CAPSULE BY MOUTH EVERY MORNING AND EVENING. [facility] water for irrigation irrigation solution 12-18 15:21: 00 12-18 15:32 :52 No PRN, Starting on Sun12/19/23 at 1021, Until Sun12/19/23 at 1032, Routine, Intra-op [facility] sodium chloride (NS) injection 12-18 15:21: 00 12-18 15:32 :52 No PRN, Starting on Sun12/19/23 at 1021, Until Sun12/19/23 at 1032, Routine, Intra-op [facility] neomycin-po lymyxin-dex amethasone (MAXITROL) 3.5 mg/g-10,000 unit/g-0.1 % ophthalmic ointment 12-18 15:21: 00 12-18 15:32 :52 No PRN, Starting on Sun12/19/23 at 1021, Until Sun12/19/23 at 1032, Routine, Intra-op [facility] dexamethaso ne (DECADRON PHOSPHATE) injection 12-18 15:21: 00 12-18 15:32 :52 No PRN, Starting on Sun12/19/23 at 1021, Until Sun12/19/23 at 1032, Routine, Intra-op [facility] ceFAZolin (ANCEF) injection 12-18 15:21: 00 12-18 15:32 :52 No PRN, Starting on Sun12/19/23 at 1021, Until Sun12/19/23 at 1032, TONI, Intra-op [facility] carbachoL (MIOSTAT) 0.01 % intraocular injection 12-18 15:20: 00 12-18 15:32 :52 No PRN, Starting on Sun12/19/23 at 1020, Until Sun12/19/23 at 1032, Routine, Intra-op [facility] chondroitin sulf-sod hyaluronate (DUOVISC VISCO ELASTIC) intraocular injection 12-18 15:11: 00 12-18 15:32 :52 No PRN, Starting on Sun12/19/23 at 1011, Until Sun12/19/23 at 1032, Routine, Intra-op [facility] EPINEPHrine 1:1,000 (1 mg/mL) (ADRENALIN) injection 12-18 15:10: 00 12-18 15:32 :52 No PRN, Starting on Sun12/19/23 at 1010, Until Sun12/19/23 at 1032, Rout[facility]rig soln comb1 (BSS PLUS) ophthalmic solution 500 mL bag 12-18 15:10: 00 12-18 15:32 :52 No PRN, Starting on Sun12/19/23 at 1010, Until Sun12/19/23 at 1032, Routine, Intra-op [facility] Hyaluronida se, Human Recomb. (HYLENEX) injection 12-18 14:59: 00 12-18 15:32 :52 No PRN, Starting on Sun12/19/23 at 0959, Until Sun12/19/23 at 1032, Routine, Intra-op [facility] eye block syringe 11 mL 12-18 14:59: 00 12-18 15:32 :52 No PRN, Starting on Sun12/19/23 at 0959, Until Sun12/19/23 at 1032, Intra-op [facility] docusate 100 mg capsule 12-18 10:30: 42 Yes 100mg Take 1 capsule by mouth in the morning and 1 capsule in the evening. [facility] acetaminoph en 325 mg tablet 12-18 10:30: 42 Yes 650mg Take 2 tablets by mouth every 6 (six) hours as needed. [facility] aspirin 81 mg EC tablet 12-18 10:30: 42 Yes 81mg Take 1 tablet by mouth in the morning. [facility] clopidogreL 75 mg tablet 12-18 10:30: 42 Yes 75mg Take 1 tablet by mouth in the morning. [facility] DULoxetine 30 mg CDRS 12-18 10:30: 42 Yes 30mg Take 30 mg by mouth in the morning. [facility] Ferrous Fumarate 325 mg (106 mg iron) tablet 12-18 10:30: 42 Yes 325mg Take 1 tablet by mouth in the morning. [facility] loratadine (CLARITIN) 10 mg tablet 12-18 10:30: 42 Yes 10mg Take 1 tablet by mouth at bedtime as needed. [facility] albuterol 90 mcg/actuati on inhaler 12-18 10:30: 42 Yes 2{puff} Inhale 2 Puffs every 6 (six) hours as needed for Wheezing or Shortness of Breath. [facility] loperamide 2 mg capsule 12-18 10:30: 42 Yes 2mg Take 1 capsule by mouth every 4 (four) hours as needed for Diarrhea. [facility] lactulose 10 gram/15 mL oral solution 12-18 10:30: 42 Yes 30mL Take 30 mL by mouth 2 (two) times daily as needed for Constipati on. [facility] ondansetron 4 mg tablet 12-18 10:30: 42 Yes 4mg Take 1 tablet by mouth every 8 (eight) hours as needed. [facility] betamethaso ne valerate 0.1 % ointment 12-18 08:43: 31 Yes Apply to area(s) as needed. [facility] HYDROXYZINE PAMOATE ORAL 12-18 08:43: 21 Yes 1{capsu le} Take 1 TAB-CAP/M2 by mouth as needed. [facility] melatonin 3 mg tablet 12-18 08:43: 21 Yes 6mg Take 2 tablets by mouth at bedtime as needed. [facility] montelukast 10 mg tablet 12-18 08:43: 21 Yes 10mg Take 1 tablet by mouth as needed. [facility] fexofenadin e 180 mg tablet 12-18 08:43: 21 Yes 180mg Take 1 tablet by mouth as needed for Allergies. [facility] methocarbam ol 500 mg tablet 12-18 08:43: 21 Yes 500mg Take 1 tablet by mouth as needed. [facility] nystatin 100,000 unit/gram cream 12-18 08:43: 21 Yes Apply to area(s) as needed. [facility] rivastigmin e tartrate 1.5 mg capsule 04 00:00: 00 01-06 00:00 :00 No [id number] 1.5mg Take 1 capsule by mouth every morning and evening. [facility] rivastigmin e tartrate 1.5 mg capsule 1-24 00:00: 00 09-05 00:00 :00 No [id number] 1.5mg Take 1 capsule by mouth every morning and evening. [facility] neomycin-po lymyxin-dex amethasone (MAXITROL) 3.5 mg/g-10,000 unit/g-0.1 % ophthalmic ointment 06-06 16:41: 00 06-06 16:47 :26 No PRN, Starting on Sun06/06/23 at 1041, Until Sun06/06/23 at 1047, Routine, Intra-op [facility] dexamethaso ne (DECADRON PHOSPHATE) injection 06-06 16:41: 00 06-06 16:47 :26 No PRN, Starting on Sun06/06/23 at 1041, Until Sun06/06/23 at 1047, Routine, Intra-op [facility] ceFAZolin (ANCEF) injection 06-06 16:41: 00 06-06 16:47 :26 No PRN, Starting on Sun06/06/23 at 1041, Until Sun06/06/23 at 1047, TONI, Intra-op [facility] carbachoL (MIOSTAT) 0.01 % intraocular injection 06-06 16:40: 00 06-06 16:47 :26 No PRN, Starting on Sun06/06/23 at 1040, Until Sun06/06/23 at 1047, Routine, Intra-op [facility] sodium chloride (NS) injection 06-06 16:36: 00 06-06 16:47 :26 No PRN, Starting on Sun06/06/23 at 1036, Until Sun06/06/23 at 1047, Routine, Intra-op [facility] EPINEPHrine 1:1,000 (1 mg/mL) (ADRENALIN) injection 06-06 16:34: 00 06-06 16:47 :26 No PRN, Starting on Sun06/06/23 at 1034, Until Sun06/06/23 at 1047, Routine, Intra-op [facility] chondroitin sulf-sod hyaluronate (DUOVISC VISCO ELASTIC) intraocular injection 06-06 16:31: 00 06-06 16:47 :26 No PRN, Starting on Sun06/06/23 at 1031, Until Sun06/06/23 at 1047, Routine, Intra-op [facility] water for irrigation irrigation solution 06-06 16:24: 00 06-06 16:47 :26 No PRN, Starting on Sun06/06/23 at 1024, Until Sun06/06/23 at 1047, Routine, Intra-op [facility] balanced salt irrig soln comb1 (BSS PLUS) ophthalmic solution 500 mL bag 06-06 16:21: 00 06-06 16:47 :26 No PRN, Starting on Sun06/06/23 at 1021, Until Sun06/06/23 at 1047, Routine, Intra-op [facility] Hyaluronida se, Human Recomb. (HYLENEX) injection 06-06 16:20: 00 06-06 16:47 :26 No PRN, Starting on Sun06/06/23 at 1020, Until Sun06/06/23 at 1047, Routine, Intra-op [facility] eye block syringe 11 mL 06-06 16:20: 00 06-06 16:47 :26 No PRN, Starting on Sun06/06/23 at 1020, Until Sun06/06/23 at 1047, Intra-op [facility] cyclopent 1%-tropic 1%-phenyl 2.5%-ketor 0.5% (MYDRIATIC #5) ophthalmic solution syringe 0.5 mL 06-06 15:00: 00 06-06 14:55 :00 No .5mL 0.5 mL, Right Eye, ONCE, 1 dose, On Sun06/06/23 at 0900, Routine, [facility],000 mL 06-06 15:00: 00 06-06 14:55 :00 No 1000mL at 42 mL/hr, 1,000 mL, IV Infusion, ONCE, 1 dose, On Sun06/06/23 at 0900, Routine, DSU Pre-op [facility] docusate 100 mg capsule 06-06 11:20: 47 Yes 100mg Take 1 capsule by mouth in the morning and 1 capsule in the evening. [facility] MULTIVITAMI N ORAL 06-06 11:20: 47 Yes Take 1 TAB-CAP/M2 by mouth daily. [facility] melatonin 3 mg tablet 06-06 11:20: 47 Yes 3mg Take 1 tablet by mouth at bedtime. [facility] montelukast 10 mg tablet 06-06 11:20: 47 Yes 10mg Take 1 tablet by mouth as needed. [facility] fexofenadin e 180 mg tablet 06-06 11:20: 47 Yes 180mg Take 1 tablet by mouth as needed for Allergies. [facility] methocarbam ol 500 mg tablet 06-06 11:20: 47 Yes 500mg Take 1 tablet by mouth as needed. [facility] nystatin 100,000 unit/gram cream 06-06 11:20: 47 Yes Apply to area(s) as needed. [facility] acetaminoph en 325 mg tablet 06-06 11:20: 47 Yes 650mg Take 2 tablets by mouth every 6 (six) hours as needed. [facility] betamethaso ne valerate 0.1 % ointment 06-06 11:20: 47 Yes Apply to area(s) as needed. [facility] aspirin 81 mg EC tablet 06-06 11:20: 47 Yes 81mg Take 1 tablet by mouth in the morning. [facility] clopidogreL 75 mg tablet 06-06 11:20: 47 Yes 75mg Take 1 tablet by mouth in the morning. [facility] DULoxetine (CYMBALTA) 60 mg capsule 06-06 11:20: 47 Yes 60mg Take 1 capsule by mouth in the morning. [facility] Ferrous Fumarate 325 mg (106 mg iron) tablet 06-06 11:20: 47 Yes 325mg Take 1 tablet by mouth in the morning. [facility] loratadine (CLARITIN) 10 mg tablet 06-06 11:20: 47 Yes 10mg Take 1 tablet by mouth in the morning. [facility] albuterol 90 mcg/actuati on inhaler 06-06 11:20: 47 Yes 2{puff} Inhale 2 Puffs every 6 (six) hours as needed for Wheezing or Shortness of Breath. [facility] loperamide 2 mg capsule 06-06 11:20: 47 Yes 2mg Take 1 capsule by mouth every 4 (four) hours as needed for Diarrhea. [facility] lactulose 10 gram/15 mL oral solution 06-06 11:20: 47 Yes 30mL Take 30 mL by mouth 2 (two) times daily as needed for Constipati on. [facility] ondansetron 4 mg tablet 06-06 11:20: 47 Yes 4mg Take 1 tablet by mouth every 8 (eight) hours as needed. [facility] rivastigmin e tartrate 1.5 mg capsule 06-05 00:00: 00 06-26 00:00 :00 No [id number] 1.5mg Take 1 capsule by mouth every morning and evening. [facility] lactulose 10 gram/15 mL oral solution 2022-06 13:28: 18 Yes 30mL Take 30 mL by mouth 2 (two) times daily as needed for Constipati on. [facility] ondansetron 4 mg tablet 2022-06 13:28: 18 Yes 4mg Take 1 tablet by mouth every 8 (eight) hours as needed. [facility] aspirin 81 mg EC tablet 2022-06 13:28: 17 Yes 81mg Take 1 tablet by mouth in the morning. [facility] clopidogreL 75 mg tablet 2022-06 13:28: 17 Yes 75mg Take 1 tablet by mouth in the morning. [facility] DULoxetine (CYMBALTA) 60 mg capsule 2022-06 13:28: 17 Yes 60mg Take 1 capsule by mouth in the morning. [facility] Ferrous Fumarate 325 mg (106 mg iron) tablet 2022-06 13:28: 17 Yes 325mg Take 1 tablet by mouth in the morning. [facility] loratadine (CLARITIN) 10 mg tablet 2022-06 13:28: 17 Yes 10mg Take 1 tablet by mouth in the morning. [facility] albuterol 90 mcg/actuati on inhaler 2022-06 13:28: 17 Yes 2{puff} Inhale 2 Puffs every 6 (six) hours as needed for Wheezing or Shortness of Breath. [facility] loperamide 2 mg capsule 2022-06 13:28: 17 Yes 2mg Take 1 capsule by mouth every 4 (four) hours as needed for Diarrhea. [facility] docusate 100 mg capsule 2022-06 13:12: 22 Yes 100mg Take 1 capsule by mouth in the morning and 1 capsule in the evening. [facility] MULTIVITAMI N ORAL 2022-06 13:12: 22 Yes Take 1 TAB-CAP/M2 by mouth daily. [facility] melatonin 3 mg tablet 2022-06 13:12: 22 Yes 3mg Take 1 tablet by mouth at bedtime. [facility] montelukast 10 mg tablet 2022-06 13:12: 22 Yes 10mg Take 1 tablet by mouth as needed. [facility] fexofenadin e 180 mg tablet 2022-06 13:12: 22 Yes 180mg Take 1 tablet by mouth as needed for Allergies. [facility] methocarbam ol 500 mg tablet 2022-06 13:12: 22 Yes 500mg Take 1 tablet by mouth as needed. [facility] nystatin 100,000 unit/gram cream 2022-06 13:12: 22 Yes Apply to area(s) as needed. [facility] acetaminoph en 325 mg tablet 2022-06 13:12: 22 Yes 650mg Take 2 tablets by mouth every 6 (six) hours as needed. [facility] betamethaso ne valerate 0.1 % ointment 2022-06 13:12: 22 Yes Apply to area(s) as needed. [facility] docusate 100 mg capsule 2017-06 14:56: 42 Yes 200mg Take 200 mg by mouth 2 (two) times daily. [facility] MULTIVITAMI N ORAL 2017-06 14:56: 42 Yes Take 1 TAB-CAP/M2 by mouth daily. [facility] melatonin 3 mg tablet 2017-06 14:56: 42 Yes 3mg Take 3 mg by mouth at bedtime. [facility] montelukast 10 mg tablet 2017-06 14:56: 42 Yes 10mg Take 10 mg by mouth as needed. [facility] fexofenadin e 180 mg tablet 2017-06 14:56: 42 Yes 180mg Take 180 mg by mouth as needed for Allergies. [facility] methocarbam ol 500 mg tablet 2017-06 14:56: 42 Yes 500mg Take 500 mg by mouth as needed. [facility] nystatin 100,000 unit/gram cream 2017-06 14:56: 42 Yes Apply to area(s) as needed. [facility] acetaminoph en 325 mg tablet 2017-06 14:56: 42 Yes 650mg Take 650 mg by mouth every 6 (six) hours as needed. [facility] betamethaso ne valerate 0.1 % ointment 2017-06 14:56: 42 Yes Apply to area(s) as needed. [facility] Nitrofurant oin&Nit. Macrocryst 100 mg capsule 2017-06 0 00:00: 00 Yes [facility] amLODIPine 10 mg tablet 2017-06 018 00:00: 00 Yes 10mg Take 1 tablet by mouth in the morning. [facility] meloxicam 7.5 mg tablet 2017-06 0-09 00:00: 00 Yes TAKE 1 TABLET BY MOUTH EVERY DAY IN THE MORNING [facility] tamsulosin 0.4 mg 24 hr capsule 02-13 00:00: 00 Yes .4mg Take 1 capsule by mouth in the morning. [facility] XARELTO 15 mg tablet 02-11 00:00: 00 Yes [facility] metoprolol tartrate 12.5 mg 02-06 00:00: 00 Yes 12.5mg Take 1 half tablet by mouth in the morning and 1 half tablet in the evening. [facility] metoprolol tartrate 50 mg tablet 02-06 00:00: 00 Yes [facility] Vital Signs Vital Name Observation Time Observation Value Comments S ource Respiratory rate 2023-12-19 15:53:00 19 /min [facility] Systolic blood pressure 2023-12-19 15:52:00 156 mm[Hg] [facility] Diastolic blood pressure 2023-12-19 15:52:00 99 mm[Hg] [facility] Heart rate 2023-12-19 15:52:00 64 /min [facility] Oxygen saturation in Arterial blood by Pulse oximetry 2023-12-19 15:52:00 96 /min [facility] Body temperature 2023-12-19 15:33:00 36.44 Ximena [facility] Body weight 2023-12-17 15:00:00 85.276 kg [facility] BMI 2023-12-17 15:00:00 25.50 kg/m2 [facility] Systolic blood pressure 2023-12-19 13:50:00 154 mm[Hg] [facility] Diastolic blood pressure 2023-12-19 13:50:00 77 mm[Hg] [facility] Heart rate 2023-12-19 13:50:00 60 /min [facility] Respiratory rate 2023-12-19 13:50:00 15 /min [facility] Oxygen saturation in Arterial blood by Pulse oximetry 2023-12-19 13:50:00 98 /min [facility] Body weight 2023-12-17 15:00:00 85.276 kg [facility] BMI 2023-12-17 15:00:00 25.50 kg/m2 [facility] Systolic blood pressure 2023-06-06 17:00:00 135 mm[Hg] [facility] Diastolic blood pressure 2023-06-06 17:00:00 65 mm[Hg] [facility] Heart rate 2023-06-06 17:00:00 72 /min [facility] Respiratory rate 2023-06-06 17:00:00 18 /min [facility] Oxygen saturation in Arterial blood by Pulse oximetry 2023-06-06 17:00:00 99 /min [facility] Body temperature 2023-06-06 16:43:00 36.11 Ximena [facility] Body height 2023-05-30 19:00:00 182.9 cm [facility] Body weight 2023-05-30 19:00:00 87 kg [facility] BMI 2023-05-30 19:00:00 26.01 kg/m2 [facility] Systolic blood pressure 2023-06-06 14:54:00 152 mm[Hg] [facility] Diastolic blood pressure 2023-06-06 14:54:00 96 mm[Hg] [facility] Heart rate 2023-06-06 14:54:00 86 /min [facility] Body temperature 2023-06-06 14:54:00 36.78 Ximena [facility] Respiratory rate 2023-06-06 14:54:00 19 /min [facility] Oxygen saturation in Arterial blood by Pulse oximetry 2023-06-06 14:54:00 96 /min [facility] Body height 2023-05-30 19:00:00 182.9 cm [facility] Body weight 2023-05-30 19:00:00 87 kg [facility] BMI 2023-05-30 19:00:00 26.01 kg/m2 [facility] Diastolic blood pressure 2023-06-05 21:13:00 86 mm[Hg] [facility] Systolic blood pressure 2023-06-05 21:13:00 167 mm[Hg] [facility] Body height 2023-06-05 21:12:00 182.9 cm [facility] Body weight 2023-06-05 21:12:00 80.831 kg [facility] BMI 2023-06-05 21:12:00 24.17 kg/m2 [facility] Procedures Procedure Date / Time Performed Performing Clinician Source 23612 - [place] XCAPSL CTRC RMVL INSJ IO LENS PROSTH W/O ECP 2023-12-19 14:47:00 Jeffery Sahu [facility] PHACOEMULSIFICATION OF CATARACT WITH INTRAOCULAR LENS IMPLANT 2023-06-06 16:09:00 Jeffery Sahu [facility] CONSENT/REFUSAL FOR DIAGNOSI S AND TREATMENT 2023-06-05 20:44:20 Doctor Unassigned, [place] [facility] REFERRAL- REQUEST/RESPONSE 2023-05-24 06:01:00 Doctor Unassigned, [place] [facility] NOTICE OF BILLING PRACTICES FOR MEDICARE PATIENTS 2023-05-21 21:43:42 Doctor Unassigned, [place] [facility] NOTICE OF BILLING PRACTICES FOR MEDICARE PATIENTS 2023-05-21 21:43:42 Doctor Unassigned, [place] [facility] NO SHOW OR MISSED APPOINTMEN T POLICY ACKNOWLEDGEMENT 2023-05-21 21:41:21 Doctor Unassigned, [place] [facility] NO SHOW OR MISSED APPOINTMEN T POLICY ACKNOWLEDGEMENT 2023-05-21 21:41:21 Doctor Unassigned, [place] [facility] PATIENT FINANCIAL POLICY 2023-05-21 21:40:50 Doctor Unassigned, [place] [facility] PATIENT FINANCIAL POLICY 2023-05-21 21:40:50 Doctor Unassigned, [place] [facility] ASSIGNMENT OF BENEFITS 2023-05-21 21:40:25 Doctor Unassigned, [place] [facility] ASSIGNMENT OF BENEFITS 2023-05-21 21:40:25 Doctor Unassigned, [place] [facility] CONSENT/REFUSAL FOR DIAGNOSI S AND TREATMENT 2023-05-21 21:40:03 Doctor Unassigned, [place] [facility] CONSENT/REFUSAL FOR DIAGNOSI S AND TREATMENT 2023-05-21 21:40:03 Doctor Unassigned, [place] [facility] [id number] 2022-08-16 00:00:00 GIBJE.01 [facility] [id number] 2022-08-16 00:00:00 GIBJE.01 [facility] [id number] 2022-08-10 00:00:00 CHAAB.01 [facility] [id number] 2022-08-10 00:00:00 CHAAB.01 [facility] [id number] 2022-08-10 00:00:00 CHAAB.01 [facility] [id number] 2022-08-10 00:00:00 CHAAB.01 [facility] [id number] 2022-08-10 00:00:00 CHAAB.01 [facility] [id number] 2022-08-10 00:00:00 CHAAB.01 [facility] [id number] 2022-08-10 00:00:00 CHAAB.01 [facility] Encounters Start Date/Time End Date/Time Encounter Type Admission Type Attending [facility] Care Department Encounter ID Source 2023-11-30 16:03:24 Outpatient JEFFERY DIAZ [facility] OPH [id number] [facility] 2024-01-07 00:00:00 2024-01-07 00:00:00 Elaina Zapata [facility] [id number] [id number] [facility] 2023-12-19 08:28:00 2023-12-19 14:15:00 Hospital Encounter Jeffery Sahu [facility] 1.2.840.114 350.1.13.10 4.2.7.2.686 [id number] [facility] 2023-12-19 08:28:00 2023-12-19 11:00:00 Outpatient JEFFERY DIAZ [facility] OPH [id number] [facility] 2023-12-19 09:31:00 2023-12-19 10:04:00 Surgery Jimenez Jeffery Facundo [facility] 1.2.840.114 350.1.13.10 4.2.7.2.686 [id number] [facility] 2023-09-06 00:00:00 2023-09-06 00:00:00 [facility] 1.2.840.114 350.1.13.10 4.2.7.2.686 [id number] [id number] [facility] 2023-07-17 00:00:00 2023-07-17 00:00:00 [facility] [id number] [facility] 2023-07-09 09:00:00 2023-07-09 09:00:00 Outpatient ASHLEY VALDEZSSICA [facility] [id number] [facility] 2023-07-03 00:00:00 2023-07-03 00:00:00 Refill Marquez [facility] SANDRA?[facility] 1.2.840.114 350.1.13.10 4.2.7.2.686 [id number] [id number] [facility] 2023-06-26 00:00:00 2023-06-26 00:00:00 Refasif Marquez [facility] 1.2.840.114 350.1.13.10 4.2.7.2.686 [id number] [facility] 2023-06-12 00:00:00 2023-06-12 00:00:00 Refasif Fritz [facility] 1.2.840.114 350.1.13.10 4.2.7.2.686 [id number] [id number] [facility] 2023-06-06 08:44:00 2023-06-06 11:10:00 Hospital Encounter Jimenez Jeffery Loredo [facility] 1.2840.114 350.1.13.10 4.2.7.2.686 [id number] [id number] [facility] 2023-06-06 08:44:00 2023-06-06 11:10:00 Outpatient R JEFFERY SAHU [facility] [id number] [facility] 2023-06-06 09:31:00 2023-06-06 10:04:00 Surgery JimenezJeffery Facundo [facility] 1.2840.114 350.1.13.10 4.2.7.2.686 [id number] [id number] [facility] 2023-06-05 15:00:00 2023-06-05 15:55:32 Outpatient R ELAINA MARQUEZ [facility] [id number] [facility] 2023-06-05 15:00:00 2023-06-05 15:55:32 [facility] 1.2840.114 350.1.13.10 4.2.7.2.686 [id number] 092 [id number] [facility] 2023-06-05 00:00:00 2023-06-05 00:00:00 Orders Only Doctor Unassigned, [place] [facility] 1.2840.114 350.1.13.10 4.2.7.2.686 [id number] [facility] 2023-05-24 00:00:00 2023-05-24 00:00:00 Orders Only Doctor Unassigned, [place] [facility] 1.2840.114 350.1.13.10 4.2.7.2.686 [id number] [facility] 2022-08-16 16:49:00 2022-09-02 11:18:00 Inpatient Arthur Jacques [facility] REHA [id number] 86 [facility] 2022-08-09 15:47:00 2022-08-16 16:47:00 Inpatient Thompson Dean [facility] INTE [id number] 79 [facility] Results Test Description Test Time Test Comments Results Result Co mments Source BASIC METABOLIC [id number] 15:02:00* Test Item Value Reference Range Interpretation [...] = CA) 9.1 mg/dL 8.0-10.5 N CALCIUM [id number] 15:02:00* Test Item Value Reference Range Interpretation Comme nts CALCIUM IONIZED (test code = ALANNA) 1.16 MMOL/L 1.09-1.30 N COVID 19 INHOUSE [id number] 06:33:00* Test Item Value Reference Range Interpretation Comme nts COVID 19 INHOUSE AG (test code = [id number]) Negative Negative A negative resul t is [...] to perform moderate, high or waivedcomplexity tests. [id number] 07:18:00* Test Item Value Reference Range Interpretation Comme nts ALBUMIN (test code = ALB) 3.20 g/dL 3.4-5.0 L [id number] 07:18:00* Test Item Value Reference Range Interpretation Comme nts PREALBUMIN (test code = PREALB) 12.0 mg/dL 16.0-40.0 L - US RETROPERITONEAL [id number] 00:00:00 [facility] 1940 Sex: M Name: BRENNAN AHN [facility] : 1940 Age/S: 82 / M [address] [place] [address] Unit #: [id number] Loc: [place] [address] Phys: Maura Terrazas MD Acct: [id number] Dis Date: Status: ADM IN PHONE #: [phone] Exam Date: 08/28/2022 1300 FAX #: [phone] Reason: renal failureEXAMS: CPT CODE: [id number] US RETROPERITONEAL [facility] 66851 PROCEDURE INFORMATION: Exam: US Retroperitoneal; Complete; Kidneys [...] Terrazas MD; Arthur Fuentes Technologist: Kavita Vera Trntnb Date/Time: 08/28/2022 (1416) t.[email or web address].[email or web address] Orig Print D/T: S: 08/29/19 (141) Probe: PAGE 1 Signed ReportBASIC METABOLIC [id number] 07:45:00* Test Item Value Reference Range Interpretation [...] = CA) 9.0 mg/dL 8.0-10.5 N CALCIUM [id number] 07:45:00* Test Item Value Reference Range Interpretation Comme nts CALCIUM IONIZED (test code = ALANNA) 1.17 MMOL/L 1.09-1.30 N GLUCOSE [id number] 20:40:00* Test Item Value Reference Range Interpretation Comme nts GLUCOSE BEDSIDE (test code = GLUBED) 106 MG/DL 70-110 N Performed by cer tified riddler operator at [facility] CORTISOL [id number] 07:42:00* Test Item Value Reference Range Interpretation Comme nts CORTISOL AM (test code = CORTAM) 29.44 ug/dL Reference Interv al: 2mo-13yrs: 2.4-22.9 ug/dL 14-15yrs(Male): 2.5-22.9 ug/dL 14-15yrs(Female): 2.5-28.6 ug/dL 16-18yrs(M/F): 2.4-28.6 ug/dLAdults(M/F) AM: 4.3-22.4 ug/dLAdults(M/F) PM: 3.1-16.7 ug/dL BASIC METABOLIC [id number] 07:37:00* Test Item Value Reference Range Interpretation [...] = CA) 9.1 mg/dL 8.0-10.5 N CALCIUM [id number] 07:37:00* Test Item Value Reference Range Interpretation Comme nts CALCIUM IONIZED (test code = ALANNA) 1.14 MMOL/L 1.09-1.30 N UA RFLX MICR CULT IF [id number] 10:40:00* Test Item Value Reference Range Interpretation [...] STRAIGHT CATH- XR RIBS UNI 2 V [id number] 00:00:00 [facility] : 1940 Sex: M FAX: Arthur Ceja [phone] [place]: St: ADM Name: BRENNAN AHN [facility] : 1940 Age/S: 82/M [address] [place] [address] Unit #: [id number] Loc: [address] [address] Phys: Arthur Fuentes MD Acct: [id number] Dis Date: Status: ADM IN PHONE #: [phone] Exam Date: 08/24/2022 9179 FAX #: [phone] Reason: FALL, LEFT RIB PAIN EXAMS: CPT CODE: [id number] XR RIBS UNI 2 V LT [address]394 PROCEDURE INFORMATION: Exam: XR Left Ribs Exam date and time: 08/24/2022 2:47 PM Age: 82 years old Clinical indication: Other: Fall, left rib pain TECHNIQUE: Imaging protocol: Radiologic exam of the left ribs. Views: 2 views. COMPARISON: [...] Technologist: Irving Jiang, RT(R); Mabel James RT(R) Trntnrd Date/Time/By: 08/24/2022 (1603) : By: [email or web address] Orig Print D/T: S: 08/24/2022 (2575) PAGE 1 Signed ReportBASIC METABOLIC [id number] 07:54:00* Test Item Value Reference Range Interpretation [...] code = CA) 9.4 mg/dL 8.0-10.5 N [id number] 07:54:00* Test Item Value Reference Range Interpretation Comme nts MAGNESIUM (test code = MAG) 1.89 mg/dL 1.80-2.40 N CBC W/AUTO [id number] 07:40:00* Test Item Value Reference Range Interpretation [...] MDIFF) NO - XR ELBOW 2 VIEWS [id number] 00:00:00 [facility], BREN[facility]N GERRY : 1940 Sex: M FAX: Florentino Tripp [phone] [place]: St: [facility] FAX: Arthur Ceja [phone] Name: BRENNAN AHN [facility] Iris Montemayor : 1940 Age/S: 82/M [address] [place] [address] Unit #: [id number] Loc: [address] [address] Phys: Florentino Jimenez Acct: [id number] Dis Date: Status: ADM IN PHONE #: [phone] Exam Date: 08/23/2022 184 FAX #: [phone] Reason: PAIN TO AREA, S/P FALL ON RIGHT SIDE 08/22 EXAMS: CPT CODE: [id number] XR ELBOW [address] [place] [address] PROCEDURE INFORMATION: Exam: XRRight Elbow Exam date and time: 08/23/2022 6:28 [...] 08/23/2022 (1922) PAGE 1 Signed ReportBASIC METABOLIC [id number] 08:00:00* Test Item Value Reference Range Interpretation [...] = CA) 9.2 mg/dL 8.0-10.5 N CALCIUM [id number] 08:00:00* Test Item Value Reference Range Interpretation Comme nts CALCIUM IONIZED (test code = ALANNA) 1.14 MMOL/L 1.09-1.30 N - CT HEAD/BRAIN W/O [id number] 00:00:00 [facility] : 1940 Sex: M Name: BRENNAN AHN [facility] [place] : 1940 Age/S: 82 / M [address] [place] [address] Unit #: [id number] Loc: [place] [address] Phys: Arthur Fuentes MD Acct: [id number] Dis Date: Status: ADM IN PHONE #: [phone] Exam Date: 08/22/2022 1546 FAX #: [phone] Reason: FALL-HIT RIGHT OCCIPTAL AREA ON FLOOR; ON PLAVI EXAMS: CPT CODE: [id number] CT HEAD/BRAIN W/O CONT 38109 [place] OCEDURE INFORMATION: Exam: CT Head Without Contrast [...] 1 Signed Report (CONTINUED) Name: BRENNAN AHN [facility] Iris Montemayor : 1940 Age/S: 82 / M [address] [place] [address] Unit #: [id number] Loc: [place] [address] Phys: Arthur Fuentes MD Acct: [id number] Dis Date: Status: ADM IN PHONE #: [phone] Exam Date: 08/22/2022 1546 FAX #: [phone] Reason: FALL-HIT RIGHT OCCIPTAL AREA ON FLOOR; ON PLAVI EXAMS: CPT CODE: [id number] CT HEAD/BRAIN W/O CONT 59030 (Continued) CC: Arthur Fuentes Technologist:Mabel Mcgowan RT(R)(CT); Harpreet Jung CTDI: DLP: Trnscb Date/Time: 08/22/2022 (1656) [email or web address] Orig Print D/T: S: 08/22/2022 (1657) PAGE 2 Signed Report- XR SHOULDER 2 + V [id number] 00:00:00 [facility] : 1940 Sex: M FAX: Arthur Ceja [phone] [place]: St: ADM Name: BRENNAN AHN [facility] [place] : 1940 Age/S: 82/M [address] [place] [address] Unit #: [id number] Loc: [place] [address] Phys: Arthur Fuentes MD Acct: [id number] Dis Date: Status: ADM IN PHONE #: [phone] Exam Date: 08/22/2022 1535 FAX #: [phone] Reason: FALL ON RIGHT SIDE, C/O RIGHT SHOULDER PAIN EXAMS: CPT CODE: [id number] XR SHOULDER 2 + V RT 90657 PROCEDURE INFORMATION: Exam: XR Right Shoulder Exam [...] by: Ramakrishna Dhaliwal M.D. CC: Arthur Fuentes Tech nologist: Julee Avila RT(R) Trnscrd Date/Time/By: 08/22/2022 (1750) : By: [email or web address] Orig Print D/T: S: 08/22/2022 (1751) PAGE 1 Signed ReportUA RFLX MICR CULT IF [id number] 12:22:00* Test Item Value Reference Range Interpretation [...] for culture: RiskForSepsis-no oth srcSpecimen Description: [facility]AUTO [id number] 08:01:00* Test Item Value Reference Range Interpretation [...] c ode = MDIFF) NO BASIC METABOLIC [id number] 07:51:00* Test Item Value Reference Range Interpretation [...] code = CA) 9.2 mg/dL 8.0-10.5 N [id number] 07:51:00* Test Item Value Reference Range Interpretation Comme nts ALBUMIN (test code = ALB) 3.50 g/dL 3.4-5.0 N [id number] 07:51:00* Test Item Value Reference Range Interpretation Comme nts PREALBUMIN (test code = PREALB) 14.3 mg/dL 16.0-40.0 L CBC W/AUTO [id number] 07:31:00* Test Item Value Reference Range Interpretation [...] c ode = MDIFF) NO COMPREHENSIVE METABOLIC [id number] 07:24:00* Test Item Value Reference Range Interpretation [...] code = ALKP) 69 IUnit/L 20-125 N [id number] 07:24:00* Test Item Value Reference Range Interpretation Comme nts MAGNESIUM (test code = MAG) 2.11 mg/dL 1.80-2.40 N COVID 19 INHOUSE [id number] 15:29:00* Test Item Value Reference Range Interpretation Comme nts COVID 19 INHOUSE AG (test code = [id number]) Negative Negative A negative resul t is [...] moderate, high or waivedcomplexity tests. BASIC METABOLIC [id number] 02:26:00* Test Item Value Reference Range Interpretation [...] code = CA) 9.6 mg/dL 8.0-10.5 N [id number] 02:26:00* Test Item Value Reference Range Interpretation Comme nts MAGNESIUM (test code = MAG) 2.40 mg/dL 1.80-2.40 N CBC W/AUTO [id number] 02:10:00* Test Item Value Reference Range Interpretation [...] ode = MDIFF) NO - DUP VEIN [id number] 00:00:00 [facility] : 1940 Sex: M Name: BRENNAN AHN [facility] : 1940 Age/S: 82 / M [address] [place] [address] Bl Unit #: [id number] Loc: [place] [address] Phys: Pamela Burnette Acct: [id number] Dis Date: Status: ADM IN PHONE #: [phone] Exam Date: 08/16/2022 1409 FAX #: [phone] Reason: R/O DVTEXAMS: CPT CODE: [id number] DUP VEIN ANCA 45849 PROCEDURE INFORMATION: Exam: US Duplex Lower Extremity [...] and signed by: Aniket Loredo M.D. CC: RACEBOOK WRITER; Salazar Dee MD; Pamela PINO Technologist: Erica De Guzman RDMS(Facundo)(BR)Trnscb Date/Time: 08/16/2022 (1500) [email or web address] Orig Print D/T: S: 08/16/2022 (150) Probe: PAGE 1 Signed Report- XR CHEST 1 [id number] 00:00:00[facility] BRENNAN GERRY : 1940 Sex: M FAX: RACEBOOK WRITER, [place]: St: ADM FAX: Salazar Delarosa [phone] FAX: Pamela Camacho [phone] Name: BRENNAN AHN [facility] Iris Montemayor : 1940 Age/S: 82/M [address] [place] [address] Bl Unit #: [id number] Loc: [address] [place] [address] Phys: Pamela Burnette Acct: [id number] Dis Date: Status: ADM IN PHONE #: [phone] Exam Date: 08/16/2022 06 FAX #: [phone] Reason: Cardiac Surgery Post Op EXAMS: CPT CODE: [id number] XR CHEST 1 V 67339 PROCEDURE INFORMATION: Exam: XR Chest Exam date [...] and signed by: Sha Gordon M.D. CC: RACEBOOK WRITER; Salazar Dee MD; Pamela PINO Technologist: Lance Gerard RT(R) Trnscrd Date/Time/By: 08/16/2022 (103) : By: [email or web address] Orig Print D/T: S: 08/16/2022 (1033) PAGE 1 Signed ReportBASIC METABOLIC [id number] 02:25:00* Test Item Value Reference Range Interpretation [...] CA) 9.2 mg/dL 8.0-10.5 N HEPATIC FUNCTION [id number] 02:25:00* Test Item Value Reference Range Interpretation [...] code = ALKP) 68 IUnit/L 20-125 N [id number] 02:25:00* Test Item Value Reference Range Interpretation Comme nts MAGNESIUM (test code = MAG) 2.32 mg/dL 1.80-2.40 N CBC W/AUTO [id number] 02:06:00* Test Item Value Reference Range Interpretation [...] = MDIFF) NO - US SOFT TISSUE [id number] 00:00:00 [facility] GERRY : 1940 Sex: M Name: BRENNAN AHN [facility] : 1940 Age/S: 82 / M [address] [place] [address] Unit #: [id number] Loc: [place] [address] Phys: Kel Agustin MD Acct: [id number] Dis Date: Status: ADM IN PHONE #: [phone] Exam Date: 08/15/2022 1314 FAX #: [phone] Reason: REEVAL ANCA PLEURAL EFF EXAMS: CPT CODE: [id number] US SOFT TISSUE TORSO 35959 PROCEDURE INFORMATION: Exam: US Chest, Pleural Space Exam date and time: 08/15/2022 12:26 PM Age: 82 years old Clinical indication:Screening exam; Other screening; Additional info: Reeval anca pleural eff TECHNIQUE: Imaging protocol: Real time ultrasound of the chest was performed with image documentation. Exam focused on the pleural space. COMPARISON: US SOFT TISSUE-TORSO 08/13/2022 3:41 PM FINDINGS: Pleural spaces: There are small bilateral pleural effusions. IMPRESSION: Small bilateral pleural effusions. at 1351 Reported and signed by: Alfreda Joseph M.D. CC: RACEBOOK WRITER; Salazar Dee MD; Kel Agustin MD Technologist: Kavita Vera Trntnb Date/Time: 08/15/2022 (903) [email or web address] Orig Print D/T: S: 08/15/2022 (7979) Probe: PAGE 1 Signed Report- XR CHEST 1 [id number] 00:00:00[facility] : 1940 Sex: M FAX: RACEBOOK WRITER, [place]: St: ADM FAX: Salazar Delarosa [phone] FAX: Pamela Camacho [phone] Name: BRENNAN AHN [facility] : 1940 Age/S: 82/M [address] [place] [address] Unit #: [id number] Loc: [address] [address] Phys: Pamela Burnette Acct: [id number] Dis Date: Status: ADM IN PHONE #: [phone] Exam Date: 08/15/2022 0500 FAX #: [phone] Reason:Cardiac Surgery Post Op EXAMS: CPT CODE: [id number] XR CHEST 1 V 88530 PROCEDURE INFORMATION: Exam:XR Chest Exam date and time: 08/15/2022 4:54 AM Age: 82 years old Clinical indication: Other: Cardiac surgery post op TECHNIQUE: Imaging protocol: Radiologic exam of the chest. Views: 1 view. COMPARISON: CR XR CHEST 1V 08/14/2022 4:58 AM FINDINGS: Lungs: Retrocardiac airspace disease. Pleural spaces:No pleural effusion. Heart/Mediastinum: Cardiomegaly with minimal central venous congestion. Vasculature: There is atherosclerotic calcification of the aorta. Bones/joints: Prior sternotomy changes. Cervical hardware is partially seen. IMPRESSION: Cardiomegaly with minimal central venous congestion. at 0845 Reported and signedby: Jaylyn Ledesma D.O. CC: RACEBOOK WRITER; Salazar Dee MD; Pmaela PINO Technologist: RT Livia(R) Trnschéctor Date/Time/By: 08/15/2022 (0845) : By: [email or web address] Orig Print D/T: S: 08/15/2022 (0846) PAGE 1 Signed [id number] 14:20:00* Test Item Value Reference Range Interpretation Comme nts SURGICAL (test code = SR) R UN DATE: 08/14/22 [place] - LAB PAGE 1 RUN TIME: 1420 Specimen Inquiry RUN USER: INTERFACE P ATIENT: [facility]NAN [facility] #: [id number] LOC: MIRZA #: [id number] AGE/SX: 82/M ROOM: [facility] RE08/09/22REG DR: Salazar Dee : [birth year] BED: 1 DIS: STATUS: ADM IN TLOC: SPEC #: [id number] RECD: 08/11/226 STATUS: KIRSTIE KONSTANTIN #: [id number] PARMINDER: 08/10/22- SUBM DR: Salazar Dee MD ENTERED: 08/11/22-1037 SP TYPE: SURGICAL OTHR DR: No Primary or Family Physician RACEBOOK WRITER, Logan Calix MD, Wajid DO Mouchli, Anas MD Quaddoura, Amer A MDORDERED: 64032, ANATOMIC SPEC COPIES TO: No Primary or Family Physician RACEBOOK WRITER, Logan Calix MD [address] [place] [address] Salazar Dee MD [address] [facility]. [address] [place] [address] Devin Fox DO [address] [place] [address] Reginaldo Brown MD [address] [place] [address] Breezy Nance MD 08[address] [facility] [address] [place] [address] PROCEDURES: 96805 (08/11/22-1037) TISSUES: A. ATRIUM - LEFT ATRIAL APPENDAGE CONTINUED ON NEXT PAGE R UN DATE: 08/14/22 [place] - LAB PAGE 2 RUN TIME: 1420 Specimen Inquiry RUN USER: INTERFACE S PEC #: [id number] PATIENT: MARITZABRENNAN GARRETT #[id number] (Continued) CLINICAL HISTORY SAME FINAL DIAGNOSIS Heart, left atrial appendage, wedge biopsy: Myocardium with focal mild ischemic change. GROSS DESCRIPTION Received in formalin labeled "left atrial appendage "is a wedge biopsy of heart, 3.4 x 2.8x 2.7 cm, sectioned and entirely submitted (A)-(B). Technical component performed at [facility],[address] [place] [address], [place] [address] Unless gross only, the diagnosis is based [...] 08/14/22 1420 END OF REPORT BASIC METABOLIC [id number] 04:11:00* Test Item Value Reference Range Interpretation [...] code = CA) 8.7 mg/dL 8.0-10.5 N [id number] 04:11:00* Test Item Value Reference Range Interpretation Comme nts MAGNESIUM (test code = MAG) 2.49 mg/dL 1.80-2.40 H CBC W/AUTO [id number] 04:07:00* Test Item Value Reference Range Interpretation [...] = MDIFF) NO - XR CHEST 1 [id number] 00:00:00 [facility] : 1940 Sex: M FAX: RACEBOOK WRITER, [place]: St: ADM FAX: Salazar Delarosa [phone] FAX: Pamela Camacho [phone] Name: BRENNAN AHN [facility] : 1940 Age/S: 82/M [address] [place] [address] Blvd Unit #: [id number] Loc: [address] [place] [address] Phys: Pamela Burnette Acct: [id number] Dis Date: Status: ADM IN PHONE #: [phone] Exam Date: 08/14/2022 0648 FAX #: [phone] Reason:Cardiac Surgery Post Op EXAMS: CPT CODE: [id number] XR CHEST 1 V 27649 PROCEDURE INFORMATION: Exam: XR Chest Exam date [...] and signed by: Morteza Allen M.D. CC: RACEBOOK WRITER; Salazar Dee MD; Pamela PINO Technologist: RT Madiha(R) Trnscrd Date/Time/By: 08/14/2022 (808) : By: [email or web address] Orig Print D/T: S: 08/14/2022 (808) PAGE 1 Signed ReportGLUCOSE [id number] 20:07:00* Test Item Value Reference Range Interpretation Comme nts GLUCOSE BEDSIDE (test code = GLUBED) 93 MG/DL 70-110 N Performed by cer tified riddler operator at [facility] BASIC METABOLIC [id number] 04:39:00* Test Item Value Reference Range Interpretation [...] mg/dL 8.0-10.5 N COMMENTS: POD #1HEPATIC FUNCTION [id number] 04:39:00* Test Item Value Reference Range Interpretation [...] ALKP) 61 IUnit/L 20-125 N COMMENTS: POD #[id number] 04:39:00* Test Item Value Reference Range Interpretation Comme nts MAGNESIUM (test code = MAG) 2.33 mg/dL 1.80-2.40 N COMMENTS: POD #1CBC W/AUTO [id number] 04:37:00* Test Item Value Reference Range Interpretation [...] = MDIFF) NO - US SOFT TISSUE [id number] 00:00:00 [facility] : 1940 Sex: M Name: AHNBRENNAN EMMANUEL GERRY [facility] : 1940 Age/S: 82 / M [address] [place] [address] Unit #: [id number] Loc: [place] [address] Phys: Breezy Nance MD Acct: [id number] Dis Date: Status: ADM IN PHONE #: [phone] Exam Date: 08/13/2022 1619 FAX #: [phone] Reason: LEFT PLEURAL EFFUSION EXAMS: CPT CODE: [id number] US SOFT TISSUE TORSO 54169 PROCEDURE INFORMATION: Exam: US Chest, Pleural Space [...] and signed by: Tomy Marion M.D. CC: RACEBOOK WRITER; Angeles Dee MD; Breezy Nance MD Technologist: Beatrice Moreno RDMS(AB) Trnscb Date/Time: 08/13/2022 (2026) [email or web address] Orig Print D/T: S: 08/13/2022 (2026) Probe: PAGE 1 Signed Report- XR CHEST 1 [id number] 00:00:00 [facility] : 1940 Sex: M FAX: RACEBOOK WRITER, [place]: St: ADM FAX: Salazar Delarosa [phone] FAX: Pamela Camacho [phone] Name: BRENNAN AHN [facility] [place] : 1940 Age/S: 82/M [address] [place] [address] Unit #: [id number] Loc: G.2202 [place] [address] Phys: Pamela Burnette Acct: [id number] Dis Date: Status: ADM IN PHONE #: [phone] Exam Date: 08/13/2022725 FAX #: [phone] Reason: Cardiac Surgery Post Op EXAMS: CPT CODE: [id number] XR CHEST 1 V 01966 PROCEDURE INFORMATION: Exam: XR Chest Exam date [...] at midline. Lungs: Residual dense opacification of theleft lung base and medial right base. Mild improvement on the left. Pulmonary vasculature normal. Lungs otherwise clear. Pleural spaces: Small volume fluid suggested at the left costophrenic angle. He art/Mediastinum: Stable moderate cardiomegaly. Vasculature: Mild aortic calcification. [...] signed by: Jose David Lazar M.D. CC: RACEBOOK WRITER; Salazar Dee MD; Pamela PINO Technologist: Silvestre liao; RT Magdaleno(R) Trnscrd Date/Time/By: 08/13/2022 (0754) : By: [email or web address] Orig Print D/T:S: 08/13/2022 (075) PAGE 1 Signed ReportGLUCOSE [id number] 14:55:00* Test Item Value Reference Range Interpretation Comme [facility] GLUCOSE BEDSIDE (test code = GLUBED) 83 MG/DL 70-110 N Performed by cer brinaied riddler operator at [facility] RENAL FUNCTION [id number] 11:35:00* Test Item Value Reference Range Interpretation Comme [facility] SODIUM (test code = NA) 136 mEq/L [...] = PHOS) 3.1 MG/DL 2.5-4.9 N GLUCOSE [id number] 09:50:00* Test Item Value Reference Range Interpretation Comme [facility] GLUCOSE BEDSIDE (test code = GLUBED) 114 MG/DL 70-110 H Performed by cer tified riddler operator at [facility] POC ARTERIAL BLOOD [id number] 03:45:00* Test Item Value Reference Range Interpretation Comme [facility] POC ARTERIAL BLOOD GAS PH (t est code = POCPHA) 7.372 7.35-7.45 N POC ARTERIAL BLOOD GAS PCO2 (test code = WWKOMR9S) 41.6 mmHg 35.0-45 N POC TCO2 ARTERIAL (test code = POCTCO2) 25.4 POC ARTERIAL BLOOD GAS PO2 ( test code = AUDGQ0J) 128.6 mmHg 80-100.0 H POC HCO3 ARTERIAL (test code = NWXAIZ4C) 24.2 MMOL/L 22.0-26.0 N POC BASE EXCESS (test code = POCBEA) -1.1 MMOL/L -4.0-4.0 N POC O2 SATURATION (test code = POCO2S) 98.8 % 90-100 N FIO2 (test code = FIO2A) 45 % PaO2/FiO2 (test code = [id number]) 285.77 mm/Hg ABG DELIVERY (test code = SOLOMON) BiPAP ABG VENT RESP RATE (test cod e = RRA) 14 /MIN ABG SITE (test code = SITEA) Art Line BASIC METABOLIC [id number] 03:45:00* Test Item Value Reference Range Interpretation [...] = POCGLU) 146 MG/DL 70-110 H HEMOGLOBIN [id number] 03:45:00* Test Item Value Reference Range Interpretation Comme nts HEMOGLOBIN ABG (test code = HGB/ABG) 9.9 G/DL 12.5-16.9 L [id number] 03:45:00* Test Item Value Reference Range Interpretation Comme nts HEMATOCRIT (test code = HCT/ABG) 29 % 37.5-50.7 L POC LACTIC [id number] 03:45:00* Test Item Value Reference Range Interpretation Comme nts POC LACTIC ACID (test code = POCLAC) 0.8 mmol/l 0.9-1.7 L BASIC METABOLIC [id number] 02:21:00* Test Item Value Reference Range Interpretation [...] mg/dL 8.0-10.5 N COMMENTS: POD #1HEPATIC FUNCTION [id number] 02:21:00* Test Item Value Reference Range Interpretation [...] ALKP) 57 IUnit/L 20-125 N COMMENTS: POD #[id number] 02:21:00* Test Item Value Reference Range Interpretation Comme nts PHOSPHOROUS (test code = PHOS) 3.1 MG/DL 2.5-4.9 N COMMENTS: POD #[id number] 02:21:00* Test Item Value Reference Range Interpretation Comme nts MAGNESIUM (test code = MAG) 2.16 mg/dL 1.80-2.40 N COMMENTS: POD #1CALCIUM [id number] 02:00:00* Test Item Value Reference Range Interpretation Comme nts CALCIUM IONIZED (test code = ALANNA) 1.16 MMOL/L 1.09-1.30 N CBC W/AUTO [id number] 01:55:00* Test Item Value Reference Range Interpretation [...] = MDIFF) NO - XR CHEST 1 [id number] 00:00:00 [facility] : 1940 Sex: M FAX: RACEBOOK WRITER, [place]: St: ADM FAX: Salazar Delarosa [phone] FAX: Pamela Camacho [phone] Name: BRENNAN AHN [facility] [place] : 1940 Age/S: 82/M [address] [place] [address] Unit #: [id number] Loc: [address] [place] [address] Phys: Pamela Burnette Acct: [id number] Dis Date: Status: ADM IN PHONE #: [phone] Exam Date: 08/12/2022716 FAX #: [phone] Reason: Cardiac Surgery Post Op Report Has Been Amended EXAMS: CPT CODE: [id number] XR CHEST 1 V 11244Cfrypdvo - 08/12/2022 SIGNED 08/12/2022 ADDENDUM: [id number] RAD/CXR1 Notes: Findings were discussedwith Dr. Nance at 08/12/2022 9:55 AM [employer] CONSULTANT. Electronically Signed by Karen Awad on 08/12/2022 at 0955 Reported and signed by: Volodymyr Awad M.D. Report PROCEDURE INFORMATION: Exam: XR Chest [...] removed. Mediastinal drain in place. Right IJ [place]-Makayla catheter sheath in place. Lungs: Indistinct basilar [...] pleural PAGE 1 Signed Report (CONTINUED) FAX: RACEBOOK WRITER, [place]: St: ADM FAX: Eben Delarosa [phone] FAX: Pamela Camacho [phone] Name: MARITZABRENNAN GARRETT [facility] : 1940 Age/S: 82/M [address] [place] [address] Unit #: [id number] Loc: [address] [address] Phys: Pamela Burnette Acct: [id number] Dis Date: Status: ADM IN PHONE #: [phone] Exam Date: 08/12/202217 FAX #: [phone] Reason: Cardiac Surgery Post Op Report Has Been Amended EXAMS: CPT CODE: [id number] XR CHEST 1 V 80882 (Continued) effusion subjectively enlarged. 2. Bibasilar atelectasis versus airspace disease. 3. Stable postoperative cardiomediastinal silhouette. at 0951 Reported and signed by: Volodymyr Awad M.D. CC: RACEBOOK WRITER; Salazar Dee MD; Pamela PINO Technologist: Silvestre López; RT Magdaleno(R) Trngiorgird Date/Time/By: 08/12/2022 (950) : By: Aretha Orig Print D/T: S: 08/12/2022 (950) PAGE 2 Signed ReportGLUCOSE [id number] 08:20:00* Test Item Value Reference Range Interpretation Comme nts GLUCOSE BEDSIDE (test code = GLUBED) 104 MG/DL 70-110 N Performed by cer tified riddler operator at [facility] GLUCOSE [id number] 06:25:00* Test Item Value Reference Range Interpretation Comme nts GLUCOSE BEDSIDE (test code = GLUBED) 108 MG/DL 70-110 N Performed by cer tified riddler operator at [facility] GLUCOSE [id number] 04:52:00* Test Item Value Reference Range Interpretation Comme nts GLUCOSE BEDSIDE (test code = GLUBED) 99 MG/DL 70-110 N Performed by cer tified riddler operator at [facility] PLT [id number] 03:10:00* Test Item Value Reference Range Interpretation Comme nts PLATELET ESTIMATE (test code = PLTEST) 100-125 THOUSAND ADEQUATE CBC W/AUTO [id number] 03:10:00* Test Item Value Reference Range Interpretation [...] (test code = MDIFF) NO BASIC METABOLIC [id number] 02:40:00* Test Item Value Reference Range Interpretation [...] mg/dL 8.0-10.5 N COMMENTS: POD #1HEPATIC FUNCTION [id number] 02:40:00* Test Item Value Reference Range Interpretation [...] = ALKP) 46 IUnit/L 20-125 COMMENTS: POD #[id number] 02:40:00* Test Item Value Reference Range Interpretation Comme nts MAGNESIUM (test code = MAG) 2.28 mg/dL 1.80-2.40 COMMENTS: POD #1POC ARTERIAL BLOOD [id number] 02:19:00* Test Item Value Reference Range Interpretation Comme nts POC ARTERIAL BLOOD GAS PH (t est code = POCPHA) 7.304 7.35-7.45 L POC ARTERIAL BLOOD GAS PCO2 (test code = CDBKWX1I) 46.4 mmHg 35.0-45 H POC TCO2 ARTERIAL (test code = POCTCO2) 24.5 POC ARTERIAL BLOOD GAS PO2 ( test code = TNEOA4D) 64.1 mmHg 80-100.0 L POC HCO3 ARTERIAL (test code = UDSVYT6D) 23.0 MMOL/L 22.0-26.0 N POC BASE EXCESS (test code = POCBEA) -3.3 MMOL/L -4.0-4.0 N POC O2 SATURATION (test code = POCO2S) 89.7 % 90-100 L ABG DELIVERY (test code = SOLOMON) Room Air ABG SITE (test code = SITEA) Art Line BASIC METABOLIC [id number] 02:19:00* Test Item Value Reference Range Interpretation [...] = POCGLU) 125 MG/DL 70-110 H HEMOGLOBIN [id number] 02:19:00* Test Item Value Reference Range Interpretation Comme nts HEMOGLOBIN ABG (test code = HGB/ABG) 9.5 G/DL 12.5-16.9 L [id number] 02:19:00* Test Item Value Reference Range Interpretation Comme nts HEMATOCRIT (test code = HCT/ABG) 28 % 37.5-50.7 L POC LACTIC [id number] 02:19:00* Test Item Value Reference Range Interpretation Comme nts POC LACTIC ACID (test code = POCLAC) 0.9 mmol/l 0.9-1.7 N GLUCOSE [id number] 01:04:00* Test Item Value Reference Range Interpretation Comme nts GLUCOSE BEDSIDE (test code = GLUBED) 98 MG/DL 70-110 N Performed by cer brinaied riddler operator at [facility] - XR CHEST 1 [id number] 00:00:00 [facility] : 1940 Sex: M 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 IMPRE SSION: Cardiomegaly with opacity at the left lung base. at 0730 Reported and signed by: Aniket Loredo M.D. CC: RACEBOOK WRITER; Salazar Dee MD; Pamela PINO Technologist: RT Livia(R) TrnscrdDate/Time/By: 08/11/2022 (2778) : By: NayelyTDO Orig Print D/T: S: 08/11/2022 (3093) PAGE 1 Signed ReportPO ARTERIAL BLOOD [id number] 21:48:00* Test Item Value Reference Range Interpretation Comme nts POC ARTERIAL BLOOD GAS PH (t est code = POCPHA) 7.317 7.35-7.45 L POC ARTERIAL BLOOD GAS PCO2 (test code = RVWEDI5G) 45.1 mmHg 35.0-45 H POC TCO2 ARTERIAL (test code = POCTCO2) 24.4 POC ARTERIAL BLOOD GAS PO2 ( test code = AYAOO1N) 178.0 mmHg 80-100.0 H POC HCO3 ARTERIAL (test code = YWEVXK0Q) 23.1 MMOL/L 22.0-26.0 N POC BASE EXCESS (test code = POCBEA) -3.1 MMOL/L -4.0-4.0 N POC O2 SATURATION (test code = POCO2S) 99.5 % 90-100 N ABG DELIVERY (test code = SOLOMON) HFNC ABG SITE (test code = SITEA) Art Line BASIC METABOLIC [id number] 21:48:00* Test Item Value Reference Range Interpretation [...] = POCGLU) 108 MG/DL 70-110 N HEMOGLOBIN [id number] 21:48:00* Test Item Value Reference Range Interpretation Comme nts HEMOGLOBIN ABG (test code = HGB/ABG) 8.9 G/DL 12.5-16.9 L [id number] 21:48:00* Test Item Value Reference Range Interpretation Comme nts HEMATOCRIT (test code = HCT/ABG) 26 % 37.5-50.7 L POC LACTIC [id number] 21:48:00* Test Item Value Reference Range Interpretation Comme nts POC LACTIC ACID (test code = POCLAC) 1.0 mmol/l 0.9-1.7 N GLUCOSE [id number] 20:36:00* Test Item Value Reference Range Interpretation Comme nts GLUCOSE BEDSIDE (test code = GLUBED) 103 MG/DL 70-110 N Performed by cer tified riddler operator at [facility] POC ARTERIAL BLOOD [id number] 18:23:00* Test Item Value Reference Range Interpretation Comme nts POC ARTERIAL BLOOD GAS PH (t est code = POCPHA) 7.321 7.35-7.45 L POC ARTERIAL BLOOD GAS PCO2 (test code = FNSKWY3H) 46.1 mmHg 35.0-45 H POC TCO2 ARTERIAL (test code = POCTCO2) 25.3 POC ARTERIAL BLOOD GAS PO2 ( test code = LFGUN8K) 125.2 mmHg 80-100.0 H POC HCO3 ARTERIAL (test code = ZNTHSN0Z) 23.9 MMOL/L 22.0-26.0 N POC BASE EXCESS (test code = POCBEA) -2.3 MMOL/L -4.0-4.0 N POC O2 SATURATION (test code = POCO2S) 98.6 % 90-100 N FIO2 (test code = FIO2A) 40 % PaO2/FiO2 (test code = UCK5UEY4) 313.00 mm/Hg ABG DELIVERY (test code = [...] code = SITEA) Art Line BASIC METABOLIC [id number] 18:23:00* Test Item Value Reference Range Interpretation [...] = POCGLU) 137 MG/DL 70-110 H HEMOGLOBIN [id number] 18:23:00* Test Item Value Reference Range Interpretation Comme nts HEMOGLOBIN ABG (test code = HGB/ABG) 9.5 G/DL 12.5-16.9 L [id number] 18:23:00* Test Item Value Reference Range Interpretation Comme nts HEMATOCRIT (test code = HCT/ABG) 28 % 37.5-50.7 L POC LACTIC [id number] 18:23:00* Test Item Value Reference Range Interpretation Comme nts POC LACTIC ACID (test code = POCLAC) 1.6 mmol/l 0.9-1.7 N POC ARTERIAL BLOOD [id number] 17:49:00* Test Item Value Reference Range Interpretation Comme nts POC ARTERIAL BLOOD GAS PH (t est code = POCPHA) 7.283 7.35-7.45 LL POC ARTERIAL BLOOD GAS PCO2 (test code = VFIXYL6W) 44.1 mmHg 35.0-45 N POC TCO2 ARTERIAL (test code = POCTCO2) 22.3 POC ARTERIAL BLOOD GAS PO2 ( test code = SFBLZ6G) 140.9 mmHg 80-100.0 H POC HCO3 ARTERIAL (test code = RZTYLH4Z) 21.0 MMOL/L 22.0-26.0 L POC BASE EXCESS (test code = POCBEA) -5.8 MMOL/L -4.0-4.0 L POC O2 SATURATION (test code = POCO2S) 98.9 % 90-100 N FIO2 (test code = FIO2A) 40 % PaO2/FiO2 (test code = TPP8XII7) 352.25 mm/Hg ABG DELIVERY (test code = [...] code = SITEA) Art Line BASIC METABOLIC [id number] 17:49:00* Test Item Value Reference Range Interpretation [...] = POCGLU) 144 MG/DL 70-110 H HEMOGLOBIN [id number] 17:49:00* Test Item Value Reference Range Interpretation Comme nts HEMOGLOBIN ABG (test code = HGB/ABG) 10.3 G/DL 12.5-16.9 L [id number] 17:49:00* Test Item Value Reference Range Interpretation Comme nts HEMATOCRIT (test code = HCT/ABG) 30 % 37.5-50.7 L POC LACTIC [id number] 17:49:00* Test Item Value Reference Range Interpretation Comme nts POC LACTIC ACID (test code = POCLAC) 1.6 mmol/l 0.9-1.7 N GLUCOSE [id number] 17:11:00* Test Item Value Reference Range Interpretation Comme nts GLUCOSE BEDSIDE (test code = GLUBED) 147 MG/DL 70-110 H Performed by cer tified riddler operator at [facility] [id number] 16:46:00* Test Item Value Reference Range Interpretation Comme nts MAGNESIUM (test code = MAG) 3.07 mg/dL 1.80-2.40 H COMMENTS: On arrivalBASIC METABOLIC [id number] 16:46:00* Test Item Value Reference Range Interpretation [...] 8.4 mg/dL 8.0-10.5 N COMMENTS: On arrivalPROTHROMBIN [id number] 16:43:00* Test Item Value Reference Range Interpretation [...] prevent recurrent infarct). COMMENTS: On arrivalTHROMBOPLASTIN TIME [id number] 16:43:00* Test Item Value Reference Range Interpretation Comme nts THROMBOPLASTIN TIME PARTIAL (test code = PTT) 32.6 Seconds 25.0-39.5 N Therapeutic Rang e: 50.4 - 88.3 Seconds Effective 09/17/2018 COMMENTS: [facility] [id number] 16:31:00* Test Item Value Reference Range Interpretation [...] COMMENTS: [facility] [id number] 16:03:00* Test Item Value Reference Range Interpretation Comme nts POC ARTERIAL BLOOD GAS PH (t est code = POCPHA) 7.324 7.35-7.45 L POC ARTERIAL BLOOD GAS PCO2 (test code = JFQIGR1U) 39.1 mmHg 35.0-45 N POC TCO2 ARTERIAL (test code = POCTCO2) 21.5 POC ARTERIAL BLOOD GAS PO2 ( test code = ARSRP8I) 200.1 mmHg 80-100.0 HH POC HCO3 ARTERIAL (test code = RFFTZA5V) 20.3 MMOL/L 22.0-26.0 L POC BASE EXCESS (test code = POCBEA) -5.7 MMOL/L -4.0-4.0 L POC O2 SATURATION (test code = POCO2S) 99.6 % 90-100 N FIO2 (test code = FIO2A) 60 % PaO2/FiO2 (test code = IIE8NOI5) 333.50 mm/Hg ABG DELIVERY (test code = SOLOMON) Adult Vent ABG VENT MODE (test code = MODEA) AC ABG VENT RESP RATE (test cod e = RRA) 16 /MIN ABG TIDAL VOLUME (test code = TVA) 500 ml ABG PEEP (test code = PEEPA) 5 cmH2O ABG SITE (test code = SITEA) Art Line GERRY'S TEST (test code = ALLENS) N/A BASIC METABOLIC [id number] 16:03:00* Test Item Value Reference Range Interpretation [...] = POCGLU) 144 MG/DL 70-110 H HEMOGLOBIN [id number] 16:03:00* Test Item Value Reference Range Interpretation Comme nts HEMOGLOBIN ABG (test code = HGB/ABG) 10.5 G/DL 12.5-16.9 L [id number] 16:03:00* Test Item Value Reference Range Interpretation Comme nts HEMATOCRIT (test code = HCT/ABG) 31 % 37.5-50.7 L POC ARTERIAL BLOOD [id number] 15:11:00* Test Item Value Reference Range Interpretation Comme nts POC ARTERIAL BLOOD GAS PH (t est code = POCPHA) 7.328 7.35-7.45 L POC ARTERIAL BLOOD GAS PCO2 (test code = NSWVWG0M) 45.1 mmHg 35.0-45 H POC TCO2 ARTERIAL (test code = POCTCO2) 25.0 POC ARTERIAL BLOOD GAS PO2 ( test code = CGZHG4T) 433.9 mmHg 80-100.0 HH POC HCO3 ARTERIAL (test code = LODIEZ1D) 23.7 MMOL/L 22.0-26.0 N POC BASE EXCESS (test code = POCBEA) -2.4 MMOL/L -4.0-4.0 N POC O2 SATURATION (test code = POCO2S) 100.0 % 90-100 N BASIC METABOLIC [id number] 15:11:00* Test Item Value Reference Range Interpretation [...] = POCGLU) 122 MG/DL 70-110 H HEMOGLOBIN [id number] 15:11:00* Test Item Value Reference Range Interpretation Comme nts HEMOGLOBIN ABG (test code = HGB/ABG) 9.9 G/DL 12.5-16.9 L [id number] 15:11:00* Test Item Value Reference Range Interpretation Comme nts HEMATOCRIT (test code = HCT/ABG) 29 % 37.5-50.7 L POC LACTIC [id number] 15:11:00* Test Item Value Reference Range Interpretation Comme nts POC LACTIC ACID (test code = POCLAC) 0.8 mmol/l 0.9-1.7 L [id number] 15:09:00* Test Item Value Reference Range Interpretation Comme nts ACT-ISTAT (test code = ACTI) 131 SEC 74-137 N Performed by cer tified riddler operator at [facility] [id number] 14:44:00* Test Item Value Reference Range Interpretation Comme nts ACT-ISTAT (test code = ACTI) 630 SEC 74-137 H Performed by cer tified riddler operator at [facility] POC ARTERIAL BLOOD [id number] 14:35:00* Test Item Value Reference Range Interpretation Comme nts POC ARTERIAL BLOOD GAS PH (t est code = POCPHA) 7.438 7.35-7.45 N POC ARTERIAL BLOOD GAS PCO2 (test code = AKLGKN2M) 35.6 mmHg 35.0-45 N POC TCO2 ARTERIAL (test code = POCTCO2) 25.2 POC ARTERIAL BLOOD GAS PO2 ( test code = SSRKT1X) 407.3 mmHg 80-100.0 HH POC HCO3 ARTERIAL (test code = ZHPANS0F) 24.1 MMOL/L 22.0-26.0 N POC BASE EXCESS (test code = POCBEA) 0.1 MMOL/L -4.0-4.0 N POC O2 SATURATION (test code = POCO2S) 100.0 % 90-100 N BASIC METABOLIC [id number] 14:35:00* Test Item Value Reference Range Interpretation [...] = POCGLU) 119 MG/DL 70-110 H HEMOGLOBIN [id number] 14:35:00* Test Item Value Reference Range Interpretation Comme nts HEMOGLOBIN ABG (test code = HGB/ABG) 9.7 G/DL 12.5-16.9 L [id number] 14:35:00* Test Item Value Reference Range Interpretation Comme nts HEMATOCRIT (test code = HCT/ABG) 28 % 37.5-50.7 L POC LACTIC [id number] 14:35:00* Test Item Value Reference Range Interpretation Comme nts POC LACTIC ACID (test code = POCLAC) 0.7 mmol/l 0.9-1.7 L [id number] 14:16:00* Test Item Value Reference Range Interpretation Comme nts ACT-ISTAT (test code = ACTI) 786 SEC 74-137 H Performed by cer tified riddler operator at [facility] POC ARTERIAL BLOOD [id number] 14:01:00* Test Item Value Reference Range Interpretation Comme nts POC ARTERIAL BLOOD GAS PH (t est code = POCPHA) 7.456 7.35-7.45 H POC ARTERIAL BLOOD GAS PCO2 (test code = RQNMEL7E) 33.0 mmHg 35.0-45 L POC TCO2 ARTERIAL (test code = POCTCO2) 24.2 POC ARTERIAL BLOOD GAS PO2 ( test code = SFDBC7W) 360.5 mmHg 80-100.0 HH POC HCO3 ARTERIAL (test code = PMJSOD6U) 23.2 MMOL/L 22.0-26.0 N POC BASE EXCESS (test code = POCBEA) -0.3 MMOL/L -4.0-4.0 N POC O2 SATURATION (test code = POCO2S) 100.0 % 90-100 N BASIC METABOLIC [id number] 14:01:00* Test Item Value Reference Range Interpretation [...] = POCGLU) 122 MG/DL 70-110 H HEMOGLOBIN [id number] 14:01:00* Test Item Value Reference Range Interpretation Comme nts HEMOGLOBIN ABG (test code = HGB/ABG) 9.9 G/DL 12.5-16.9 L [id number] 14:01:00* Test Item Value Reference Range Interpretation Comme nts HEMATOCRIT (test code = HCT/ABG) 29 % 37.5-50.7 L POC LACTIC [id number] 14:01:00* Test Item Value Reference Range Interpretation Comme nts POC LACTIC ACID (test code = POCLAC) 0.8 mmol/l 0.9-1.7 L POC ARTERIAL BLOOD [id number] 13:32:00* Test Item Value Reference Range Interpretation Comme nts POC ARTERIAL BLOOD GAS PH (t est code = POCPHA) 7.430 7.35-7.45 N POC ARTERIAL BLOOD GAS PCO2 (test code = DOJJSQ4Z) 35.7 mmHg 35.0-45 N POC TCO2 ARTERIAL (test code = POCTCO2) 24.8 POC ARTERIAL BLOOD GAS PO2 ( test code = IUBPU3U) 445.2 mmHg 80-100.0 HH POC HCO3 ARTERIAL (test code = TESVIN5H) 23.7 MMOL/L 22.0-26.0 N POC BASE EXCESS (test code = POCBEA) -0.4 MMOL/L -4.0-4.0 N POC O2 SATURATION (test code = POCO2S) 100.0 % 90-100 N BASIC METABOLIC [id number] 13:32:00* Test Item Value Reference Range Interpretation [...] = POCGLU) 119 MG/DL 70-110 H HEMOGLOBIN [id number] 13:32:00* Test Item Value Reference Range Interpretation Comme nts HEMOGLOBIN ABG (test code = HGB/ABG) 10.7 G/DL 12.5-16.9 L [id number] 13:32:00* Test Item Value Reference Range Interpretation Comme nts HEMATOCRIT (test code = HCT/ABG) 31 % 37.5-50.7 L POC LACTIC [id number] 13:32:00* Test Item Value Reference Range Interpretation Comme nts POC LACTIC ACID (test code = POCLAC) 0.9 mmol/l 0.9-1.7 N [id number] 13:27:00* Test Item Value Reference Range Interpretation Comme nts ACT-ISTAT (test code = ACTI) > 1000 SEC 74-137 H Performed by cer tified riddler operator at [facility] POC ARTERIAL BLOOD [id number] 13:05:00* Test Item Value Reference Range Interpretation Comme nts POC ARTERIAL BLOOD GAS PH (t est code = POCPHA) 7.366 7.35-7.45 N POC ARTERIAL BLOOD GAS PCO2 (test code = UUSKRH8K) 45.8 mmHg 35.0-45 H POC TCO2 ARTERIAL (test code = POCTCO2) 27.6 POC ARTERIAL BLOOD GAS PO2 ( test code = CCOCY4E) 529.4 mmHg 80-100.0 HH POC HCO3 ARTERIAL (test code = XXHBHL4R) 26.2 MMOL/L 22.0-26.0 H POC BASE EXCESS (test code = POCBEA) 0.5 MMOL/L -4.0-4.0 N POC O2 SATURATION (test code = POCO2S) 100.0 % 90-100 N BASIC METABOLIC [id number] 13:05:00* Test Item Value Reference Range Interpretation [...] = POCGLU) 117 MG/DL 70-110 H HEMOGLOBIN [id number] 13:05:00* Test Item Value Reference Range Interpretation Comme nts HEMOGLOBIN ABG (test code = HGB/ABG) 11.7 G/DL 12.5-16.9 L [id number] 13:05:00* Test Item Value Reference Range Interpretation Comme nts HEMATOCRIT (test code = HCT/ABG) 34 % 37.5-50.7 L POC LACTIC [id number] 13:05:00* Test Item Value Reference Range Interpretation Comme [facility] POC LACTIC ACID (test code = POCLAC) < 0.3 mmol/l 0.9-1.7 L [id number] 12:53:00* Test Item Value Reference Range Interpretation Comme nts ACT-ISTAT (test code = ACTI) 847 SEC 74-137 H Performed by cer tified riddler operator at [facility] POC ARTERIAL BLOOD [id number] 12:45:00* Test Item Value Reference Range Interpretation Comme nts POC ARTERIAL BLOOD GAS PH (t est code = POCPHA) 7.311 7.35-7.45 L POC ARTERIAL BLOOD GAS PCO2 (test code = LSWOSN4F) 48.3 mmHg 35.0-45 H POC TCO2 ARTERIAL (test code = POCTCO2) 25.8 POC ARTERIAL BLOOD GAS PO2 ( test code = NBSOE6G) 512.0 mmHg 80-100.0 HH POC HCO3 ARTERIAL (test code = LGZGUB1A) 24.4 MMOL/L 22.0-26.0 N POC BASE EXCESS (test code = POCBEA) -2.4 MMOL/L -4.0-4.0 N POC O2 SATURATION (test code = POCO2S) 100.0 % 90-100 N BASIC METABOLIC [id number] 12:45:00* Test Item Value Reference Range Interpretation [...] = POCGLU) 116 MG/DL 70-110 H HEMOGLOBIN [id number] 12:45:00* Test Item Value Reference Range Interpretation Comme nts HEMOGLOBIN ABG (test code = HGB/ABG) 15.4 G/DL 12.5-16.9 N [id number] 12:45:00* Test Item Value Reference Range Interpretation Comme nts HEMATOCRIT (test code = HCT/ABG) 45 % 37.5-50.7 N POC LACTIC [id number] 12:45:00* Test Item Value Reference Range Interpretation Comme nts POC LACTIC ACID (test code = POCLAC) < 0.3 mmol/l 0.9-1.7 L POC ARTERIAL BLOOD [id number] 11:11:00* Test Item Value Reference Range Interpretation Comme nts POC ARTERIAL BLOOD GAS PH (t est code = POCPHA) 7.370 7.35-7.45 N POC ARTERIAL BLOOD GAS PCO2 (test code = HRMTHW4Q) 46.6 mmHg 35.0-45 H POC TCO2 ARTERIAL (test code = POCTCO2) 28.6 POC ARTERIAL BLOOD GAS PO2 ( test code = WJXOL1V) 240.7 mmHg 80-100.0 HH POC HCO3 ARTERIAL (test code = GNVWJA1Q) 27.1 MMOL/L 22.0-26.0 H POC BASE EXCESS (test code = POCBEA) 1.7 MMOL/L -4.0-4.0 N POC O2 SATURATION (test code = POCO2S) 99.8 % 90-100 N ABG DELIVERY (test code = SOLOMON) [employer] ABG TEMPERATURE (test code = TEMPA) 97.5 F ABG SITE (test code = SITEA) Art Line BASIC METABOLIC [id number] 11:11:00* Test Item Value Reference Range Interpretation [...] = POCGLU) 97 MG/DL 70-110 N HEMOGLOBIN [id number] 11:11:00* Test Item Value Reference Range Interpretation Comme nts HEMOGLOBIN ABG (test code = HGB/ABG) 17.8 G/DL 12.5-16.9 H [id number] 11:11:00* Test Item Value Reference Range Interpretation Comme nts HEMATOCRIT (test code = HCT/ABG) 52 % 37.5-50.7 H POC LACTIC [id number] 11:11:00* Test Item Value Reference Range Interpretation Comme nts POC LACTIC ACID (test code = POCLAC) 0.5 mmol/l 0.9-1.7 L [id number] 01:14:00* Test Item Value Reference Range Interpretation Comme nts MAGNESIUM (test code = MAG) 1.77 mg/dL 1.80-2.40 L BASIC METABOLIC [id number] 01:07:00* Test Item Value Reference Range Interpretation [...] CA) 9.5 mg/dL 8.0-10.5 N CBC W/AUTO [id number] 00:59:00* Test Item Value Reference Range Interpretation [...] (test c ode = MDIFF) NO PROTHROMBIN [id number] 00:59:00* Test Item Value Reference Range Interpretation [...] recurrent infarct). UA RFLX MICR CULT IF [id number] 00:56:00* Test Item Value Reference Range Interpretation [...] PainSpecimen Description: CLEAN CATCH- XR CHEST 1 [id number] 00:00:00 [facility] : 1940 Sex: M FAX: [employer], [place]: St: ADM FAX: Gio AlexSalazar mcginnis [phone] FAX: Pamela Camacho [phone] Name: BRENNAN AHN [facility] : 1940 Age/S: 82/M [address] [place] [address] Unit #: [id number] Loc: G.[address] [place] [id number] Phys: Pamela Burnette Acct: [id number] Date: Status: ADM IN PHONE #: [phone] Exam Date: 08/10/2022 1551 FAX #: [phone] Reason: Cardiac Surgery Post Op EXAMS: CPT CODE: [id number] XR CHEST 1 V 92285 PROCEDURE INFORMATION: Exam: XR Chest Exam date [...] No discrete pneumothorax is noted. Heart/Mediastinum: Cardiac silhouetteis mildly enlarged. Bones/joints: Fusion hardware in the lower cervical spine is seen. 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 at 1835 Reported and signed by: Morteza Sullivan M.D. CC: RACEBOOK WRITER; Salazar Dee MD; Pamela PINO Technologist: RT Nicho(R) Trnscrd Date/Time/By: 08/10/2022 (1834) : By: [email or web address] Orig Print D/T: S: 08/10/2022 (1834) PAGE 1 Signed ReportCOVID 19 Asymptomatic IH [id number] 22:40:00* Test Item Value Reference Range Interpretation [...] moderate, high or waivedcomplexity tests. CBC W/AUTO [id number] 18:50:00* Test Item Value Reference Range Interpretation [...] c ode = MDIFF) NO B-TYPE NATRIURETIC [id number] 18:46:00* Test Item Value Reference Range Interpretation Comme nts B-TYPE NATRIURETIC PEPTIDE ( test code = BNP) 266.0 PG/ML 0-100 H COMPREHENSIVE METABOLIC [id number] 18:28:00* Test Item Value Reference Range Interpretation [...] = LDL) 199.0 mg/dL 0-100 H <100 VQJBDRU74 0-129 NEAR OPTIMAL/ABOVE [id number] HIGH>AW=897 VERY HIGH*Guidelines provided by the National Cholesterol EducationProgram Adult Treatment Panel III HGBA1C%2022-08-09 18:25:00* Test Item Value Reference Range Interpretation Comme nts HGBA1C% (test code = HGBA1C%) 5.2 %A1C 4.8-6.0 N THROMBOPLASTIN TIME [id number] 18:23:00* Test Item Value Reference Range Interpretation Comme nts THROMBOPLASTIN TIME PARTIAL (test code = PTT) 36.2 Seconds 25.0-39.5 N Therapeutic Rang e: 50.4 - 88.3 Seconds Effective 09/17/2018 PROTHROMBIN [id number] 18:23:00* Test Item Value Reference Range Interpretation [...] prevent recurrent infarct). - XR CHEST 2 [id number] 00:00:00 [facility] 1940 Sex: M FAX: RACEBOOK WRITER, [place]: St: ADM FAX: Salazar Delarosa [phone] FAX: Pamela Camacho [phone] Name: AHNBRENNAN GANDARA [facility] : 1940 Age/S: 82/M [address] [place] [address] Unit #: [id number] Loc: G.4[address] [place] [address] Phys: Pamela Burnette Acct: [id number] Dis Date: Status: ADM IN PHONE #: [phone] Exam Date: 08/09/2022 1705 FAX #: [phone] Reason:Cardiac Surgery Pre Op EXAMS: CPT CODE: [id number] XR CHEST 2 V 59717 PROCEDURE INFORMATION: Exam: XR Chest Exam date [...] size is within normal limits. Vasculature is u nremarkable. Bones/joints: No acute osseous abnormalities. IMPRESSION: Left basilar opacities may represent atelectasis and/or consolidation. at 1903 Reported and signed by: Eric Edgar M.D. CC: RACEBOOK WRITER; Salazar Dee MD; Pamela PINO Technologist: RT Taryn(Doretha) Trnscrd Date/Time/By: 08/09/2022 (1902) : By: [email or web address] Orig Print D/T: S: 08/09/2022 (1903) PAGE 1 Signed Report- DUP VEIN [id number] 00:00:00 [facility] GERRY : 1940 Sex: M Name: BRENNAN AHN [facility] : 1940 Age/S: 82 / M [address] [place] [address] Bl Unit #: [id number] Loc: [facility] [place] [address] Phys: Pamela Burnette Acct: [id number] Dis Date: Status: ADM IN PHONE #: [phone] Exam Date: 08/09/2022 175 FAX #: [phone] Reason: Bilateral Vein Bilateral mapping EXAMS: CPT CODE: [id number] DUP VEIN ANCA 73176 PROCEDURE INFORMATION: Exam: US Duplex Lower Extremity [...] and signed by: Eric Edgar M.D. CC: RACEBOOK WRITER; Salazar Dee MD; Pamela PINO Technologist: Kavita Vera Trnscb Date/Time: (1857) [email or web address] Orig Print D/T: S: 08/09/2022 (1857) Probe: PAGE 1 Signed Report- DUP EXTRACRANIAL [id number] 00:00:00 [facility] : 1940 Sex: M Name: BRENNAN AHN [facility] [place] : 1940 Age/S: 82 / M [address] [place] [address] Blvd Unit #: [id number] Loc: [place] [address] Phys: Pamela Burnette Acct: [id number] Dis Date: Status: ADM IN PHONE #: [phone] Exam Date: 08/09/20221749 FAX #: [phone] Reason: Pre cabg EXAMS: CPT CODE: [id number] DUP EXTRACRANIAL ANCA 10394 PROCEDURE INFORMATION: Exam: US Duplex Bilateral Extracranial [...] Normal is no stenosis. Mild is less than50% stenosis. Moderate is 50-69% stenosis. Severe is greater than 69% stenosis to near occlusion. Near occlusion is a markedly narrowed lumen. Total occlusion is no detectable patent lumen. at 1916 Reported and signed by: Aniket Loredo M.D. PAGE 1 Signed Report (CONTINUED) Name: BRENNAN AHN [facility] : 1940 Age/S: 82 / M [address] [place], [place] [address]vd Unit #: [id number] Loc: [place] [address] Phys: Pamela Burnette Acct: [id number] Dis Date: Status: ADM IN PHONE #: [phone] Exam Date: 08/09/2022 175 FAX #: [phone] Reason: Pre cabg EXAMS: CPT CODE: [id number] DUP EXTRACRANIAL ANCA 51515 (Continued) CC: RACEBOOK WRITER; Salazar Dee MD; Pamela PINO Technologist: Kavita Vera Trntnb Date/Time: 08/09/2022 (1916) [email or web address] Orig Print D/T: S: 08/09/2022 (1916) Probe: PAGE 2 Signed Report- CT CHEST W/O [id number] 00:00:00 [facility] : 1940 Sex: M Name: BRENNAN AHN [facility] [place] : 1940 Age/S: 82 / M [address] [place] [address] Unit #: [id number] Loc: [place] [address] Phys: Pamela Burnette Acct: [id number] Dis Date: Status: ADM IN PHONE #: [phone] Exam Date: 08/09/2022 1715 FAX #: [phone] Reason: Pre cabg EXAMS: CPT CODE: [id number] CT CHEST W/O CONTRAST 47523 PROCEDURE INFORMATION: Exam: CT Chest Without Contrast; Diagnostic Exam date and time: 08/09/2022 5:11 PM Age: 82 years old Clinical indication:Other: Pre cabg TECHNIQUE: Imaging protocol: Diagnostic computed [...] of the left upper lobe (2, 32-37). Minimalsubpleural platelike atelectasis also noted with no edema [...] acute upper abdominal findings along the visualized segments.PAGE 1 Signed Report (CONTINUED) Name: BRENNAN AHN [facility] : 1940 Age/S: 82 / M [address] [place] [address] Blvd Unit #: [id number] Loc: [place] [address] Phys: Pamela Burnette Acct: [id number] Dis Date: Status: ADM IN PHONE #: [phone] Exam Date: 08/09/2022 1715 FAX #: [phone] Reason: Pre cabg EXAMS: CPT CODE: [id number] CT CHEST W/O CONTRAST 40520 (Continued) Bones/joints: Severe thoracic spondylosis without destructive bone lesions. Soft tissues: Unremarkable.IMPRESSION: 1. Ectatic, nonaneurysmal aortic root (37 mm) with qlrf-ht-jtzklezw calcification. 2. Remaining thoracoabdominal aorta is normal [...] characterization, if indicated. COMMENTS: Consistent with the [employer]'s Incidental Findings Committee white [...] and signed by: Brandon Beth M.D. CC: RACEBOOK WRITER; Salazar Dee MD; Pamela PINO Technologist:RT Juan(R)(CT) CTDI: DLP: Trnscb Date/Time: 08/09/2022 (1924) [email or web address] Orig Print D/T: S: 08/09/2022 (1925) PAGE 2 Signed Report History and Physical Notes Date/Time Note Provider Source 2023-12-19 09:05:23 H&P Update H&P was reviewed and the patient was examined and there was no change in the patient's condition. [facility] 2023-06-06 09:25:40 H&P Update H&P was reviewed and the patient was examined and there was no change in the patient's condition. [facility] Notes Date/Time Note Provider Source 2023-09-06 [...] Provider: ELAINA MARQUEZ Ordering User: MARY HINDS [facility] 2023-09-06 10:04:03 Copied from [facility] #[id number]. Topic: Clinical - Order >> Sep 06, 2023 10:03 AM Patient Product Ambassador wrote: Patient needing refill rivastigmine tartrate 1.5 mg capsule sent into pharmacy. [facility] [id number] [facility] Martha Lowe [facility] 2023-07-03 08:44:47 Requested Prescriptions Refused Prescriptions Disp Refills RIVASTIGMINE TARTRATE 1.5 mg capsule [Pharmacy Med Name: RIVASTIGMINE 1.5MG CAPSULE] 60 capsule 0 Sig: TAKE 1 CAPSULE BY MOUTH EVERY MORNING AND EVENING. Refused By: MARY HINDS Reason for Refusal: Patient has requested refill too soon Refill sent 06/27/23, 30 day supply with 1 refill. MIGUEL Hinds LVN [facility] 2023-06-27 08:17:45 Spoke with pt Delia RENE, who stated pt had diarrhea in [...] medication should be increased. MIGUEL Hinds LVN [facility] 2023-06-26 14:53:04 Brennan Ahn is a 83 year old male Gabby with [facility] is calling requesting refill of rx rivastigmine 1.5 mg capsule (EXELON) Please advise NDWATER CONSULTANT [facility] 2023-06-12 11:43:06 Requested Prescriptions Refused Prescriptions Disp Refills RIVASTIGMINE TARTRATE 1.5 mg capsule [Pharmacy Med Name: RIVASTIGMINE 1.5MG CAPSULE] 60 capsule 11 Sig: TAKE 1 CAPSULE BY MOUTH EVERY MORNING AND EVENING. Refused By: MARY HINDS Reason for Refusal: Refill not appropriate Dose expected to be increased at NOV 07/09/23. ANIYAH 06/05/23 MIGUEL Hinds LVN [facility] 2023-05-30 12:56:46 Images from the original note were not included. Pre-op call completed in two calls, one with patient's daughter and one with nurse Louisa at [facility] in [place], [place]. Your procedure is at [facility] on 06/06/22. The address is [address] [place] [address], [id number]. [facility] nursing staff will call you the workday [...] questions at this time. MIGUEL Walker RN [facility] 2022-09-02 05:10:00 [facility] ([facility]) Rehab Discharge Summary REPORT#:[id number] REPORT STATUS: Signed DATE:09/02/22 TIME: 509 PATIENT: BRENNAN AHN UNIT #: [id number] ROOM/BED: [facility] : 42 AGE: 82 SEX: M ATTEND: [...] AG, calves NT, no cords, Homans neg Neuro/PRESS CLIPPER: alert, CNII-XII intact, normal speech, no motor [...] history of SVT/ablation who was transferred to [facility] after being found to have multivessel coronary artery disease. Patient initially with was at home and developed chest pains. He was brought to [facility] and underwent left heart cath which revealed [...] Pt. condition on discharge: improved Allergies: Allergies: Zbcezxi-VIV-PqY Reductase Inhibitor (Coded, Severe, UNKNOWN, 08/16/22) Discharge Instructions Discharge Instructions Additional Discharge Routines: PCP Follow-Up, Vision Teacher Follow-Up Diet: Cardiac Activity: Sternal Precautions Prescriptions: on chart Discharge management: greater than 30 mins at 2124 RPT #:[id number] END OF REPORT [facility] 2022-09-01 14:12:00 [facility] Internal Medicine Prog. Note REPORT#:[id number] REPORT STATUS: Signed DATE:09/01/22 TIME: 1412 PATIENT: BRENNAN AHN UNIT #: [id number] ROOM/BED: [facility] : 42 AGE: 82 SEX: M ATTEND: [...] Meds + DC'd Last 24 Hrs Ipratropium Baker (ATROVENT) 500 MCG RTQ6H WA INH Amiodarone [...] 650 MG Q4H PRN PRN PO Ipratropium Baker (ATROVENT) 500 MCG RTQ2H PRN PRN INH Melatonin (Melatonin) 6 MG BEDTIME PRN PO Ondansetron HCl (ZOFRAN ODT) 4 MG TID PRN PRN SL Physical Exam General appearance: alert, awake, oriented Head/Eyes: EOMI, PERRLA Neck: non-tender, no JVD Cardiovascular: normal heart sounds, regular rate rhythm Respiratory: aerating well, clear to auscultation Abdomen: non-tender, normal bowel sounds Extremities: Extremities: no cyanosis, no edema Neuro/PRESS CLIPPER: alert, oriented x 3, CNII-XII intact Skin: ecchymosis (l chest) Diagnosis, Assessment Plan Hospital course to date: 82-year-old male with past medical history of hypertension, atrial fibrillation, supraventricular tachycardia status post ablation who was admitted with reports of multivessel coronary artery disease found on a cardiac catheterization done at [facility]. Patient was transferred to [facility] for CABG. He underwent XEJCn3l. 1. Coronary artery disease -Status post CABG [...] Discussion included: code status at 0917 RPT #:[id number] END OF REPORT [facility] 2022-09-01 12:47:00 [facility] ([facility]) Cardiology Progress Note REPORT#:[id number] REPORT STATUS: Signed DATE:09/01/22 TIME: 1247 PATIENT: BRENNAN AHN UNIT #: [id number] ROOM/BED: [place] [address] : 42 AGE: 82 SEX: M ATTEND: [...] Meds + DC'd Last 24 Hrs Ipratropium Baker (ATROVENT) 500 MCG RTQ6H WA INH Amiodarone [...] 650 MG Q4H PRN PRN PO Ipratropium Baker (ATROVENT) 500 MCG RTQ2H PRN PRN INH [...] LE assessment: no edema Musculoskeletal: normal inspection Neuro/PRESS CLIPPER: alert Skin: dry Psychiatry: normal affect, normal mood Diagnosis, Assessment Plan Free Text DxA P Notes Free Text DxA P Notes: 82 YO male with MHX of Afib, HTN, HLD, CAD who is s/p 5 vessel CABG and PVI and ALAA. The patient is transferred to [facility] for inpatient rehabilitation. We are consulted [...] assisting with discharge placement. at 1402 RPT #:[id number] END OF REPORT [facility] 2022-09-01 05:03:00 [facility] Rehab Progress Note REPORT#:[id number] REPORT STATUS: Signed DATE:09/01/22 TIME: 502 PATIENT: BRENNAN AHN UNIT #: [id number] ROOM/BED: [place] [address] : 42 AGE: 82 SEX: M ATTEND: [...] history of SVT/ablation who was transferred to [facility] after being found to have multivessel coronary artery disease. Patient initially with was at home and developed chest pains. He was brought to [facility] and underwent left heart cath which revealed [...] Meds + DC'd Last 24 Hrs Ipratropium Baker (ATROVENT) 500 MCG RTQ6H WA INH Amiodarone [...] 650 MG Q4H PRN PRN PO Ipratropium Baker (ATROVENT) 500 MCG RTQ2H PRN PRN INH [...] AG, calves NT, no cords, Homans neg Neuro/PRESS CLIPPER: alert, CNII-XII intact, normal speech, no motor [...] case -LADARIUS as per nephrology-He was following accordion repairer in [place] so plan to refer to his accordion repairer post discharge. Stable renal function as per [...] and cognitive deficits. Patient impulsive at times. -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 checking on authorization for [facility]. Insurance planning on denying SNF. P2P to be done by Dr. FuentesSgadtzeqe-tljlcs-lmqipo pending PM R Please see team note. Plan and goals discussed with the patient. I agree with the teams finding ELOS: [pending SNF acceptance] DC-SNF placement-awaiting insurance authorization for [facility]-on appeal DME-bedside commode, rolling walker Total time [...] Jimenez NP at 1141 at 2130 RPT #:[id number] END OF REPORT [facility] 2022-08-31 14:52:00 [facility] Internal Medicine Prog. Note REPORT#:[id number] REPORT STATUS: Signed DATE:08/31/22 TIME: 2 PATIENT: BRENNAN AHN UNIT #: [id number] ROOM/BED: [place] [address] : 42 AGE: 82 SEX: M ATTEND: [...] 157/77 08/31 726 B/P Mean 103.9 08/31 07 O2 Delivery Room air 08/31 726 Temp [...] Meds + DC'd Last 24 Hrs Ipratropium Baker (ATROVENT) 500 MCG RTQ6H WA INH Amiodarone [...] Sodium (COLACE) 100 MG BID PO Ipratropium Baker (ATROVENT) 500 MCG RTQ6H INH (DC) Sennosides (Senna Lax 8.6 MG TABLET) 17.2 MG BEDTIME PO Hydralazine HCl (APRESOLINE) 10 MG Q6H PRN PRN IV Acetaminophen (TYLENOL) 650 MG Q4H PRN PRN PO Ipratropium Baker (ATROVENT) 500 MCG RTQ2H PRN PRN INH Melatonin (Melatonin) 6 MG BEDTIME PRN PO Ondansetron HCl (ZOFRAN ODT) 4 MG TID PRN PRN SL Physical Exam General appearance: alert, awake, oriented Head/Eyes: EOMI, PERRLA Neck: non-tender, no JVD Cardiovascular: normal heart sounds, regular rate rhythm Respiratory: aerating well, clear to auscultation Abdomen: non-tender, normal bowel sounds Extremities: Extremities: no cyanosis, no edema Neuro/PRESS CLIPPER: alert, oriented x 3, CNII-XII intact Skin: ecchymosis (l chest) Diagnosis, Assessment Plan Hospital course to date: 82-year-old male with past medical history of hypertension, atrial fibrillation, supraventricular tachycardia status post ablation who was admitted with reports of multivessel coronary artery disease found on a cardiac catheterization done at [facility]. Patient was transferred to [facility] for CABG. He underwent LIVZy5a. 1. Coronary artery disease -Status post CABG [...] Discussion included: code status at 0917 RPT #:[id number] END OF REPORT [facility] 2022-08-31 12:16:00 [facility] ([facility]) Cardiology Progress Note REPORT#:[id number] REPORT STATUS: Signed DATE:08/31/22 TIME: 1216 PATIENT: BRENNAN AHN UNIT #: [id number] ROOM/BED: [place] [address] : 42 AGE: 82 SEX: M ATTEND: [...] Meds + DC'd Last 24 Hrs Ipratropium Baker (ATROVENT) 500 MCG RTQ6H WA INH Amiodarone [...] Sodium (COLACE) 100 MG BID PO Ipratropium Baker (ATROVENT) 500 MCG RTQ6H INH (DC) Sennosides (Senna Lax 8.6 MG TABLET) 17.2 MG BEDTIME PO Hydralazine HCl (APRESOLINE) 10 MG Q6H PRN PRN IV Acetaminophen (TYLENOL) 650 MG Q4H PRN PRN PO Ipratropium Baker (ATROVENT) 500 MCG RTQ2H PRN PRN INH [...] LE assessment: no edema Musculoskeletal: normal inspection Neuro/PRESS CLIPPER: alert Skin: dry Psychiatry: normal affect, normal mood Results Results: no new labs, vital signs reviewed Diagnosis, Assessment Plan Free Text DxA P Notes Free Text DxA P Notes: 82 YO male with MHX of Afib, HTN, HLD, CAD who is s/p 5 vessel CABG and PVI and ALAA. The patient is transferred to [facility] for inpatient rehabilitation. We are consulted [...] assisting with discharge placement. at 1437 at 1407 RPT #:[id number] END OF REPORT [facility] 2022-08-31 11:46:00 [facility] ([facility] Nephrology Progress Note REPORT#:[id number] REPORT STATUS: Signed DATE:08/31/22 TIME: 1146 PATIENT: BRENNAN AHN UNIT #: [id number] ROOM/BED: [facility] : 42 AGE: 82 SEX: M ATTEND: [...] issues in the past and seeing a accordion repairer at [place] but his kidney function had been stable [...] and avoid nephrotoxic agents. He was following accordion repairer in [place] so plan to refer to his accordion repairer post discharge. 2. Hypervolemia:Patient at high risk [...] and avoid nephrotoxic agents. He was following accordion repairer in [place] so plan to refer to his accordion repairer post discharge. 2. Hypervolemia:Patient at high risk [...] and avoid nephrotoxic agents. He was following accordion repairer in [place] so plan to refer to his accordion repairer post discharge. 2. Hypervolemia: .Volume stable.Plan to [...] and avoid nephrotoxic agents. He was following accordion repairer in [place] so plan to refer to his accordion repairer post discharge. 2. Hypervolemia: .Volume stable.Plan to give lasix PRN .He is not tolerating daily dose due to hypotension. 3. Electrolytes: His electrolytes appear to be in normal range plan is to monitor and replace as needed. 4. Hypotension: Midodrine dose increased .Plan to monitor and increase midodrine if SBP<110. Consultants: cardiology, cardiovascular surgery, hospitalist, nephrology at 1837 RPT #:[id number] END OF REPORT [facility] 2022-08-31 07:30:00 [facility] Rehab Progress Note REPORT#:[id number] REPORT STATUS: Signed DATE:08/31/22 TIME: 07 PATIENT: BRENNAN AHN UNIT #: [id number] ROOM/BED: [place]-2 : 42 AGE: 82 SEX: [...] history of SVT/ablation who was transferred to [facility] after being found to have multivessel coronary artery disease. Patient initially with was at home and developed chest pains. He was brought to [facility] and underwent left heart cath which revealed [...] Meds + DC'd Last 24 Hrs Ipratropium Baker (ATROVENT) 500 MCG RTQ6H WA INH Amiodarone [...] Sodium (COLACE) 100 MG BID PO Ipratropium Baker (ATROVENT) 500 MCG RTQ6H INH (DC) Sennosides (Senna Lax 8.6 MG TABLET) 17.2 MG BEDTIME PO Hydralazine HCl (APRESOLINE) 10 MG Q6H PRN PRN IV Acetaminophen (TYLENOL) 650 MG Q4H PRN PRN PO Ipratropium Baker (ATROVENT) 500 MCG RTQ2H PRN PRN INH [...] AG, calves NT, no cords, Homans neg Neuro/PRESS CLIPPER: alert, oriented X 3, CNII-XII intact, normal [...] Loredo-fib s/p a ARISTEO Endoscopic RGSV harvest 3/15: Echo-EF 50-54%, small pericardial effusion Small bilateral [...] case -LADARIUS as per nephrology-He was following accordion repairer in [place] so plan to refer to his accordion repairer post discharge. Stable renal function as per [...] and cognitive deficits. Patient impulsive at times. -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 checking on authorization for [facility]. Insurance planning on denying SNF. P2P to be done by Dr. FuentesAqivdphdr-uquiwm-tnzduj pending Progress: PT WAS SEEN FOR 90MIN OF THERAPY BEGINNING W/GAIT TRAINING WITH RW 180',50' MOD<>MIN-A PT IS IMPULSIVE AT TIME,100' USING WALL RAIL JOSE R- SLOW MOVING,STAIR TRAINING 4 STEPS,2 RAILS MIN-A,PICKING OBJECTS OFF FLOOR VC FOR SAFETY. 180'X2 AROUND UNIT PER SITTER VC FOR SAFETY.DYNAMIC STANDING ACTIVITIES REACHING IN MULTIPLE PLANES USING HOOK TO ENVIRONMENTAL SAFETY SPECIALIST OBJECTS,PICKING OBJECTS OFF FLOOR USING A WRINGER OPERATOR VC FOR SAFETY. PM R Please see team note. Plan and goals discussed with the patient. I agree with the teams finding ELOS: [pending SNF acceptance] DC-SNF placement-awaiting insurance authorization for [facility]-on appeal DME-bedside commode, rolling walker Total time [...] Agree with interdisciplinary treatment plan. at 1424 RPT #:[id number] END OF REPORT [facility] 2022-08-30 13:20:00 [facility] ([facility]) Nephrology Progress Note REPORT#:[id number] REPORT STATUS: Signed DATE:08/30/22 TIME: 1320 PATIENT: BRENNAN AHN UNIT #: [id number] ROOM/BED: [place] [address] : 42 AGE: 82 SEX: M ATTEND: [...] issues in the past and seeing a accordion repairer at [place] but his kidney function had been stable since then.He developed oliguria,LADARIUS and hypervolemia post CABG but had now improved and was transferred to rehab. 08/30 Patient appearing comfortable, he denied dizziness, SOB, nausea, orthopnea, cramping. Objective General VS/I O: Vital Signs: Date Time Temp Pulse Resp B/P B/P Pulse O2 O2 Flow FiO2 Mean Ox Delivery Rate 08/31 07 36.9 78 18 157/77 103.9 96 Room [...] and avoid nephrotoxic agents. He was following accordion repairer in [place] so plan to refer to his accordion repairer post discharge. 2. Hypervolemia:Patient at high risk [...] and avoid nephrotoxic agents. He was following accordion repairer in [place] so plan to refer to his accordion repairer post discharge. 2. Hypervolemia:Patient at high risk [...] and avoid nephrotoxic agents. He was following accordion repairer in [place] so plan to refer to his accordion repairer post discharge. 2. Hypervolemia: .Volume stable.Plan to give lasix PRN .He is not tolerating daily dose due to hypotension. 3. Electrolytes: His electrolytes appear to be in normal range plan is to monitor and replace as needed. 4. Hypotension: Midodrine dose increased .Plan to monitor and increase midodrine if SBP<110. Consultants: cardiology, cardiovascular surgery, hospitalist, nephrology at 1146 RPT #:[id number] END OF REPORT [facility] 2022-08-30 11:08:00 [facility] Rehab Progress Note REPORT#:[id number] REPORT STATUS: Signed DATE:08/30/22 TIME: 1108 PATIENT: BRENNAN AHN UNIT #: [id number] [address] AGE: 82 SEX: M ATTEND: Arthur [...] history of SVT/ablation who was transferred to [facility] after being found to have multivessel coronary artery disease. Patient initially with was at home and developed chest pains. He was brought to [facility] and underwent left heart cath which revealed [...] Sodium (COLACE) 100 MG BID PO Ipratropium Baker (ATROVENT) 500 MCG RTQ6H INH Sennosides (Senna Lax 8.6 MG TABLET) 17.2 MG BEDTIME PO Hydralazine HCl (APRESOLINE) 10 MG Q6H PRN PRN IV Acetaminophen (TYLENOL) 650 MG Q4H PRN PRN PO Ipratropium Baker (ATROVENT) 500 MCG RTQ2H PRN PRN INH [...] AG, calves NT, no cords, Homans neg Neuro/PRESS CLIPPER: alert, oriented X 3, CNII-XII intact, normal [...] case -LADARIUS as per nephrology-He was following accordion repairer in [place] so plan to refer to his accordion repairer post discharge. -Dementia/confusion-Higher level of nursing care [...] rolling walker 200 feet with contact-guard assist. -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 checking on authorization for [facility]. Insurance planning on denying SNF. P2P to be done by Dr. Fuentes PM R Please see team note. Plan and goals discussed with the patient. I agree with the teams finding ELOS: [08/30 pending SNF acceptance] DC-SNF placement-awaiting insurance authorization for [facility] DME-bedside commode, rolling walker Total time was 34 minutes > 50% with patient performing physical examination, discussing with patient about sitter, fall precaustions, discharge plans, sternal precautions, plan of care, goals, therapies, progress, medications, labs. All questions answered Rehab attestation: . at 0832 RPT #:[id number] END OF REPORT [facility] 2022-08-30 10:54:00 [facility] ([facility] Cardiology Progress Note REPORT#:[id number] REPORT STATUS: Signed DATE:08/30/22 TIME: 1054 PATIENT: BRENNAN AHN UNIT #: [id number] ROOM/BED: [place] [address] : 42 AGE: 82 SEX: M ATTEND: [...] Sodium (COLACE) 100 MG BID PO Ipratropium Baker (ATROVENT) 500 MCG RTQ6H INH Sennosides (Senna Lax 8.6 MG TABLET) 17.2 MG BEDTIME PO Hydralazine HCl (APRESOLINE) 10 MG Q6H PRN PRN IV Acetaminophen (TYLENOL) 650 MG Q4H PRN PRN PO Ipratropium Baker (ATROVENT) 500 MCG RTQ2H PRN PRN INH [...] LE assessment: no edema Musculoskeletal: normal inspection Neuro/PRESS CLIPPER: alert Skin: dry Psychiatry: normal affect, normal [...] and ALAA. The patient is transferred to [facility] for inpatient rehabilitation. We are consulted [...] Dr. Sanchez at 1646 at 1402 RPT #:[id number] END OF REPORT [facility] 2022-08-29 14:35:00 [facility] Internal Medicine Prog. Note REPORT#:[id number] REPORT STATUS: Signed DATE:08/29/22 TIME: 1435 PATIENT: BRENNAN AHN UNIT #: [id number] ROOM/BED: [place] [address] : 42 AGE: 82 SEX: M ATTEND: [...] Sodium (COLACE) 100 MG BID PO Ipratropium Baker (ATROVENT) 500 MCG RTQ6H INH Sennosides (Senna Lax 8.6 MG TABLET) 17.2 MG BEDTIME PO Hydralazine HCl (APRESOLINE) 10 MG Q6H PRN PRN IV Acetaminophen (TYLENOL) 650 MG Q4H PRN PRN PO Ipratropium Baker (ATROVENT) 500 MCG RTQ2H PRN PRN INH Melatonin (Melatonin) 6 MG BEDTIME PRN PO Ondansetron HCl (ZOFRAN ODT) 4 MG TID PRN PRN SL Physical Exam General appearance: alert, awake, oriented Head/Eyes: EOMI, PERRLA Neck: non-tender, no JVD Cardiovascular: normal heart sounds, regular rate rhythm Respiratory: aerating well, clear to auscultation Abdomen: non-tender, normal bowel sounds Extremities: Extremities: no cyanosis, no edema Neuro/PRESS CLIPPER: alert, oriented x 3, CNII-XII intact Skin: ecchymosis (l chest) Results Findings/Data: Laboratory Tests 08/29 0510 Serology SARS-CoV-2 Ag (Rapid) (Negative) Negative Diagnosis, Assessment Plan Hospital course to date: 82-year-old male with past medical history of hypertension, atrial fibrillation, supraventricular tachycardia status post ablation who was admitted with reports of multivessel coronary artery disease found on a cardiac catheterization done at [facility]. Patient was transferred to [facility] for CABG. He underwent RDISp2s. 1. Coronary artery disease -Status post CABG [...] Discussion included: code status at 0917 RPT #:[id number] END OF REPORT [facility] 2022-08-29 13:25:00 [facility] ([facility]) Rehab Team Conference REPORT#:[id number] REPORT STATUS: Signed DATE:08/29/22 TIME: 1325 PATIENT: BRENNAN AHN UNIT #: [id number] ROOM/BED: [place] [address] : 42 AGE: 82 SEX: M ATTEND: Arthur Fuentes MD ADM AUTHOR: Arthur Fuentes MD * ALL edits or amendments must be made on the electronic/computer document * Rehabilitation Team Conference Weekly Team Conference Team conf information: Date of conference: 08/29/22 Conference type: Interim Conference scribe: Ana Cristina Solano PTA INTERDISCIPLINARY TEAM MEETING PARTICIPANTS: TITLE NAME MD Arthur Fuentes, MD BRIDGER Smalls, RN PT Shay Tristan, PT KEYANNA Garcia OT CM/JOE Forrest CM ST NO ATTENDEE [facility] Ami Hobbs, SHIRRER Staff (8) NO ATTENDEE Staff (9) NO [...] FALL RISK DME: RW AND W/C D/C: CHRISTOPHER PRIMARY MODE OF AMBULATION: GAIT 240 FEET, [...] (4) Twelve steps discharge goal: Not applicable [place] 150 feet discharge goal: Independent (6) Goal [...] OR INJURY. FAMILY TRAINING COMPLETED ON 08/25/22 [place] day (DATE): 08/28/22 Expected discharge destination: [facility] facility Anticipated services upon discharge: Occupational therapy, [...] criteria See my note at 1325 RPT #:[id number] END OF REPORT [facility] 2022-08-29 13:07:00 [facility] ([facility]) Cardiology Progress Note REPORT#:[id number] REPORT STATUS: Signed DATE:08/29/22 TIME: 1307 PATIENT: BRENNAN AHN UNIT #: [id number] ROOM/BED: [place] [address] : 42 AGE: 82 SEX: M ATTEND: [...] 97 03/27 2046 98 Room air 21 08/28 1929 36.5 74 17 127/71 89.4 [...] Sodium (COLACE) 100 MG BID PO Ipratropium Baker (ATROVENT) 500 MCG RTQ6H INH Sennosides (Senna Lax 8.6 MG TABLET) 17.2 MG BEDTIME PO Hydralazine HCl (APRESOLINE) 10 MG Q6H PRN PRN IV Acetaminophen (TYLENOL) 650 MG Q4H PRN PRN PO Ipratropium Baker (ATROVENT) 500 MCG RTQ2H PRN PRN INH [...] LE assessment: no edema Musculoskeletal: normal inspection Neuro/PRESS CLIPPER: alert Skin: dry Psychiatry: normal affect, normal [...] and ALAA. The patient is transferred to [facility] for inpatient rehabilitation. We are consulted [...] - d/w granddaughter at 1540 at 1402 [facility] #:[id number] END OF REPORT [facility] 2022-08-29 11:33:00 [facility] ([facility]) Nephrology Progress Note REPORT#:[id number] REPORT STATUS: Signed DATE:08/29/22 TIME: 1133 PATIENT: BRENNAN AHN UNIT #: [id number] ROOM/BED: [place] [address] : 42 AGE: 82 SEX: M ATTEND: [...] issues in the past and seeing a accordion repairer at [place] but his kidney function had been stable [...] and avoid nephrotoxic agents. He was following accordion repairer in [place] so plan to refer to his accordion repairer post discharge. 2. Hypervolemia:Patient at high risk [...] and avoid nephrotoxic agents. He was following accordion repairer in [place] so plan to refer to his accordion repairer post discharge. 2. Hypervolemia:Patient at high risk [...] and avoid nephrotoxic agents. He was following accordion repairer in [place] so plan to refer to his accordion repairer post discharge. 2. Hypervolemia: .Volume stable.Plan to give lasix PRN . 3. Electrolytes: His electrolytes appear to be in normal range plan is to monitor and replace as needed. 4. Hypotension: Midodrine dose increased .Plan to monitor and increase midodrine if SBP<110. Consultants: cardiology, cardiovascular surgery, hospitalist, nephrology at 1058 RPT #:[id number] END OF REPORT [facility] 2022-08-29 08:55:00 [facility] ([facility]) Rehab Progress Note REPORT#:[id number] REPORT STATUS: Signed DATE:08/29/22 TIME: 08 PATIENT: BRENNAN AHN UNIT #: [id number] ROOM/BED: [place] [address] : 42 AGE: 82 SEX: M ATTEND: [...] history of SVT/ablation who was transferred to [facility] after being found to have multivessel coronary artery disease. Patient initially with was at home and developed chest pains. He was brought to [facility] and underwent left heart cath which revealed [...] 97.9 96 18 102/50 67.5 93 08/28 2353 97.3 78 18 122/67 85.1 97 08/28 2350 98.4 68 16 126/73 90.8 97 08/28 2104 97.7 97 19 134/54 80.5 95 08/28 2057 97.9 82 18 154/82 106.2 97 08/286 98 Room air 21 08/28 1929 97.7 [...] Sodium (COLACE) 100 MG BID PO Ipratropium Baker (ATROVENT) 500 MCG RTQ6H INH Sennosides (Senna Lax 8.6 MG TABLET) 17.2 MG BEDTIME PO Hydralazine HCl (APRESOLINE) 10 MG Q6H PRN PRN IV Acetaminophen (TYLENOL) 650 MG Q4H PRN PRN PO Ipratropium Baker (ATROVENT) 500 MCG RTQ2H PRN PRN INH [...] AG, calves NT, no cords, Homans neg Neuro/PRESS CLIPPER: alert, oriented X 3, CNII-XII intact, normal speech, no motor deficits, no sensory deficits Results Findings/Data: Laboratory Tests: 08/29 0510 Serology SARS-CoV-2 Ag (Rapid) [...] case -LADARIUS as per nephrology-He was following accordion repairer in [place] so plan to refer to his accordion repairer post discharge. -Dementia/confusion-Higher level of nursing care [...] 200 feet with contact-guard assist. 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 Plan and goals discussed with the patient. I agree with the teams finding ELOS: [08/30 pending SNF acceptance] DC-SNF placement-awaiting insurance authorization for [facility] DME-bedside commode, rolling walker Total time was [...] 08/29 UNK Complete NEB TREATMENT SUBSQ 08/28 3639 Complete Consultants: cardiology, cardiovascular surgery, hospitalist, nephrology Rehab attestation: Face to face exam completed. Treatment plan discussed with patient. Meets continued stay criteria. Agree with interdisciplinary treatment plan. at 1325 RPT #:[id number] END OF REPORT [facility] 2022-08-28 14:55:00 [facility] ([facility]) Cardiology Progress Note REPORT#:[id number] REPORT STATUS: Signed DATE:08/28/22 TIME: 1455 PATIENT: MARITZABRENNAN GARRETT UNIT #: [id number] ROOM[facility]BED: [facility] [...] Sodium (COLACE) 100 MG BID PO Ipratropium Baker (ATROVENT) 500 MCG RTQ6H INH Sennosides (Senna Lax 8.6 MG TABLET) 17.2 MG BEDTIME PO Hydralazine HCl (APRESOLINE) 10 MG Q6H PRN PRN IV Acetaminophen (TYLENOL) 650 MG Q4H PRN PRN PO Ipratropium Baker (ATROVENT) 500 MCG RTQ2H PRN PRN INH [...] harvest site), no edema Musculoskeletal: normal inspection Neuro/PRESS CLIPPER: alert Skin: dry Psychiatry: normal affect, normal [...] and ALAA. The patient is transferred to [facility] for inpatient rehabilitation. We are consulted [...] supportive care at 1656 at 1402 RPT #:[id number] END OF REPORT [facility] 2022-08-28 13:41:00 [facility] Internal Medicine Prog. Note REPORT#:[id number] REPORT STATUS: Signed DATE:08/28/22 TIME: 1341 PATIENT: BRENNAN AHN UNIT #: [id number] ROOM/BED: [place] [address] : 42 AGE: 82 SEX: M ATTEND: [...] Sodium (COLACE) 100 MG BID PO Ipratropium Baker (ATROVENT) 500 MCG RTQ6H INH Sennosides (Senna Lax 8.6 MG TABLET) 17.2 MG BEDTIME PO Hydralazine HCl (APRESOLINE) 10 MG Q6H PRN PRN IV Acetaminophen (TYLENOL) 650 MG Q4H PRN PRN PO Ipratropium Baker (ATROVENT) 500 MCG RTQ2H PRN PRN INH Melatonin (Melatonin) 6 MG BEDTIME PRN PO Ondansetron HCl (ZOFRAN ODT) 4 MG TID PRN PRN SL Physical Exam General appearance: alert, awake, oriented Head/Eyes: EOMI, PERRLA Neck: non-tender, no JVD Cardiovascular: normal heart sounds, regular rate rhythm Respiratory: aerating well, clear to auscultation Abdomen: non-tender, normal bowel sounds Extremities: Extremities: no cyanosis, no edema Neuro/PRESS CLIPPER: alert, oriented x 3, CNII-XII intact Skin: [...] found on a cardiac catheterization done at [facility]. Patient was transferred to [facility] for CABG. He underwent [id number]. 1. Coronary artery disease -Status post CABG [...] Discussion included: code status at 0917 RPT #:[id number] END OF REPORT [facility] 2022-08-28 12:37:00 [facility] Cardiothoracic Surgery Prog REPORT#:[id number] REPORT STATUS: Signed DATE:08/28/22 TIME: 1237 PATIENT: BRENNAN AHN UNIT #: [id number] ROOM/BED: [place] [address] : 42 AGE: 82 SEX: M ATTEND: [...] soft, non-tender, no distention Extremities: moves all Neuro/PRESS CLIPPER: alert, oriented X 3, normal speech, no [...] SVT ablation 20 years ago transferred to [facility] with new findings of multi-vessel CAD. He reports he was woken from [facility] on Sunday AM with COmplaints of chest pains. EMS aas called and patient was taken to [facility]. He underwent LHC and found to have multi-vessel CAD by Dr Sanchez. Patient was transferred to [facility] for CABG. Patient lives independently. Daughter is at bedside. Patient reports last dose of Elliquis was Sunday AM. Echo was done at [facility] showing EF 55%, Mild MR, Mild [...] points, SR and sinus arrythmnia noted on site monitor, V epicardial wires on backup rate of [...] plan reviewed with Dr Piper, Dr Kirkpatrick, [facility] and multidisciplinary team 08/13 Intermittently confused. [...] cardiovascular surgery, hospitalist, nephrology at 1242 RPT #:[id number] END OF REPORT [facility] 2022-08-28 11:14:00 [facility] ([facility]) Nephrology Progress Note REPORT#:[id number] REPORT STATUS: Signed DATE:08/28/22 TIME: 1114 PATIENT: BRENNAN AHN UNIT #: [id number] ROOM/BED: [place] [address] : 42 AGE: 82 SEX: M ATTEND: [...] issues in the past and seeing a accordion repairer at [place] but his kidney function had been stable [...] 2057 36.6 82 18 154/82 106.2 97 08/28 2046 98 Room air 08/289 36.5 74 17 127/71 89.4 96 [...] and avoid nephrotoxic agents. He was following accordion repairer in [place] so plan to refer to his accordion repairer post discharge. 2. Hypervolemia:Patient at high risk [...] and avoid nephrotoxic agents. He was following accordion repairer in [place] so plan to refer to his accordion repairer post discharge. 2. Hypervolemia:Patient at high risk [...] and avoid nephrotoxic agents. He was following accordion repairer in [place] so plan to refer to his accordion repairer post discharge. 2. Hypervolemia: .Volume stable.Plan to give lasix PRN . 3. Electrolytes: His electrolytes appear to be in normal range plan is to monitor and replace as needed. 4. Hypotension: Midodrine dose increased .Plan to monitor and increase midodrine if SBP<110. Consultants: cardiology, cardiovascular surgery, hospitalist, nephrology at 1133 RPT #:[id number] END OF REPORT [facility] 2022-08-28 11:01:00 [facility] ([facility]) Nephrology Progress Note REPORT#:[id number] REPORT STATUS: Signed DATE:08/28/22 TIME: 1101 PATIENT: BRENNAN AHN UNIT #: [id number] ROOM/BED: [place] [address] : 42 AGE: 82 SEX: M ATTEND: [...] issues in the past and seeing a accordion repairer at [place] but his kidney function had been stable [...] no swelling Diagnosis, Assessment Plan Free Text Facundo P: 82-year-old male known to have hypertension, [...] and avoid nephrotoxic agents. He was following accordion repairer in [place] so plan to refer to his accordion repairer post discharge. 2. Hypervolemia:Patient at high risk [...] and avoid nephrotoxic agents. He was following accordion repairer in [place] so plan to refer to his accordion repairer post discharge. 2. Hypervolemia:Patient at high risk [...] and avoid nephrotoxic agents. He was following accordion repairer in [place] so plan to refer to his accordion repairer post discharge. 2. Hypervolemia:Patient at high risk of volume overload so would reccommend lasix PO, lasix held due to hypotension .Volume stable. 3. Electrolytes: His electrolytes appear to be in normal range plan is to monitor and replace as needed. 4. Hypotension: Midodrine dose increased .Plan to monitor and increase midodrine if SBP<110. Consultants: cardiology, cardiovascular surgery, hospitalist, nephrology at 1108 RPT #:[id number] END OF REPORT [facility] 2022-08-28 07:00:00 [facility] ([facility]) Rehab Progress Note REPORT#:[id number] REPORT STATUS: Signed DATE:08/28/22 TIME: 0700 PATIENT: BRENNAN AHN UNIT #: [id number] ROOM/BED: [place] [address] : 42 AGE: 82 SEX: M ATTEND: [...] history of SVT/ablation who was transferred to [facility] after being found to have multivessel coronary artery disease. Patient initially with was at home and developed chest pains. He was brought to [facility] and underwent left heart cath which revealed [...] Sodium (COLACE) 100 MG BID PO Ipratropium Baker (ATROVENT) 500 MCG RTQ6H INH Sennosides (Senna Lax 8.6 MG TABLET) 17.2 MG BEDTIME PO Hydralazine HCl (APRESOLINE) 10 MG Q6H PRN PRN IV Acetaminophen (TYLENOL) 650 MG Q4H PRN PRN PO Ipratropium Baker (ATROVENT) 500 MCG RTQ2H PRN PRN INH [...] OF THERAPY BEGINNING W/ DON OF ENZO [employer]ODRUFFE AND BINDER,TAKE BP IN SITTING AND STANDING [...] AG, calves NT, no cords, Homans neg Neuro/PRESS CLIPPER: alert, oriented X 3, CNII-XII intact, normal [...] case -LADARIUS as per nephrology-He was following accordion repairer in [place] so plan to refer to his accordion repairer post discharge. -Dementia/confusion-Higher level of nursing care [...] with interdisciplinary treatment plan. at 1226 RPT #:[id number] END OF REPORT [facility] 2022-08-27 14:05:00 [facility] ([facility]) Cardiology Progress Note REPORT#:[id number] REPORT STATUS: Signed DATE:08/27/22 TIME: 1405 PATIENT: BRENNAN AHN UNIT #: [id number] ROOM/BED: [place] [address] : 42 AGE: 82 SEX: M ATTEND: [...] Sodium (COLACE) 100 MG BID PO Ipratropium Baker (ATROVENT) 500 MCG RTQ6H INH Sennosides (Senna Lax 8.6 MG TABLET) 17.2 MG BEDTIME PO Hydralazine HCl (APRESOLINE) 10 MG Q6H PRN PRN IV Acetaminophen (TYLENOL) 650 MG Q4H PRN PRN PO Ipratropium Baker (ATROVENT) 500 MCG RTQ2H PRN PRN INH [...] harvest site), no edema Musculoskeletal: normal inspection Neuro/PRESS CLIPPER: alert Skin: dry Psychiatry: normal affect, normal [...] and ALAA. The patient is transferred to [facility] for inpatient rehabilitation. We are consulted [...] CARE WITH HIS NURSE at 1406 RPT #:[id number] END OF REPORT [facility] 2022-08-27 13:50:00 [facility]) Internal Medicine Prog. Note REPORT#:[id number] REPORT STATUS: Signed DATE:08/27/22 TIME: 1350 PATIENT: BRENNAN AHN UNIT #: [id number] ROOM/BED: [place] [address] : 42 AGE: 82 SEX: M ATTEND: [...] Sodium (COLACE) 100 MG BID PO Ipratropium Baker (ATROVENT) 500 MCG RTQ6H INH Sennosides (Senna Lax 8.6 MG TABLET) 17.2 MG BEDTIME PO Hydralazine HCl (APRESOLINE) 10 MG Q6H PRN PRN IV Acetaminophen (TYLENOL) 650 MG Q4H PRN PRN PO Ipratropium Baker (ATROVENT) 500 MCG RTQ2H PRN PRN INH Melatonin (Melatonin) 6 MG BEDTIME PRN PO Ondansetron HCl (ZOFRAN ODT) 4 MG TID PRN PRN SL Physical Exam General appearance: alert, awake Head/Eyes: EOMI, PERRLA Neck: non-tender, no JVD Cardiovascular: normal heart sounds, regular rate rhythm Respiratory: aerating well, clear to auscultation Abdomen: non-tender, normal bowel sounds Extremities: Extremities: no cyanosis, no edema Neuro/PRESS CLIPPER: alert, oriented x 3, CNII-XII intact Skin: [...] found on a cardiac catheterization done at [facility]. Patient was transferred to [facility] for CABG. He underwent [id number]. 1. Coronary artery disease -Status post CABG [...] Discussion included: code status at 0917 RPT #:[id number] END OF REPORT [facility] 2022-08-27 13:48:00 [facility] Internal Medicine Prog. Note REPORT#:[id number] REPORT STATUS: Signed DATE:08/27/22 TIME: 1348 PATIENT: BRENNAN AHN UNIT #: [id number] ROOM/BED: [facility] Sodium (COLACE) 100 MG BID PO Ipratropium Baker (ATROVENT) 500 MCG RTQ6H INH Sennosides (Senna Lax 8.6 MG TABLET) 17.2 MG BEDTIME PO Hydralazine HCl (APRESOLINE) 10 MG Q6H PRN PRN IV Acetaminophen (TYLENOL) 650 MG Q4H PRN PRN PO Ipratropium Baker (ATROVENT) 500 MCG RTQ2H PRN PRN INH [...] sounds Extremities: Extremities: no cyanosis, no edema Neuro/PRESS CLIPPER: alert, oriented x 3, CNII-XII intact Skin: [...] found on a cardiac catheterization done at [facility]. Patient was transferred to [facility] for CABG. He underwent [id number]. 1. Coronary artery disease -Status post CABG [...] Discussion included: code status at 0917 RPT #:[id number] END OF REPORT [facility] 2022-08-27 05:51:00 [facility] ([facility]) Rehab Progress Note REPORT#:[id number] REPORT STATUS: Signed DATE:08/27/22 TIME: 550 PATIENT: BRENNAN AHN UNIT #: [id number] ROOM/BED: G.503-2 : 42 AGE: 82 SEX: [...] history of SVT/ablation who was transferred to [facility] after being found to have multivessel coronary artery disease. Patient initially with was at home and developed chest pains. He was brought to [facility] and underwent left heart cath which revealed [...] Sodium (COLACE) 100 MG BID PO Ipratropium Baker (ATROVENT) 500 MCG RTQ6H INH Sennosides (Senna Lax 8.6 MG TABLET) 17.2 MG BEDTIME PO Hydralazine HCl (APRESOLINE) 10 MG Q6H PRN PRN IV Acetaminophen (TYLENOL) 650 MG Q4H PRN PRN PO Ipratropium Baker (ATROVENT) 500 MCG RTQ2H PRN PRN INH [...] AG, calves NT, no cords, Homans neg Neuro/PRESS CLIPPER: alert, oriented X 3, CNII-XII intact, normal [...] pH (5.0 - 7.0) 5.0 Ur Specific [place] (1.005 - 1.030) 1.011 Urine Protein (NEGATIVE) [...] XR RIBS UNI 2 V LT 08/24 8840 Report Impression - Status: SIGNED Entered: 08/24/2022 [...] case -LADARIUS as per nephrology-He was following accordion repairer in [place] so plan to refer to his accordion repairer post discharge. -Dementia/confusion-Higher level of nursing care [...] ALVAREZ Bush at 1943 at 0659 RPT #:[id number] END OF REPORT [facility] 2022-08-26 17:34:00 [facility] ([facility]) Cardiology Progress Note REPORT#:[id number] REPORT STATUS: Signed DATE:08/26/22 TIME: 1734 PATIENT: BRENNAN AHN UNIT #: [id number] ROOM/BED: [facility] : 42 AGE: 82 SEX: M ATTEND: [...] 2057 98.1 77 17 119/67 84.4 97 08/25 195 98 Room air PATIENT WEIGHT: Weight (lb): [...] Sodium (COLACE) 100 MG BID PO Ipratropium Baker (ATROVENT) 500 MCG RTQ6H INH Sennosides (Senna Lax 8.6 MG TABLET) 17.2 MG BEDTIME PO Hydralazine HCl (APRESOLINE) 10 MG Q6H PRN PRN IV Acetaminophen (TYLENOL) 650 MG Q4H PRN PRN PO Ipratropium Baker (ATROVENT) 500 MCG RTQ2H PRN PRN INH [...] harvest site), no edema Musculoskeletal: normal inspection Neuro/PRESS CLIPPER: alert Skin: dry Psychiatry: normal affect, normal mood Results Results: labs reviewed, vital signs reviewed, vital signs stable Diagnosis, Assessment Plan Consultants: cardiology, cardiovascular surgery, hospitalist, nephrology Free Text DxA P Notes Free Text DxA P Notes: 82 YO male with MHX of Afib, HTN, HLD, CAD who is s/p 5 vessel CABG and PVI and ALAA. The patient is transferred to [facility] for inpatient rehabilitation. We are consulted for continuity of cardiac-related care. 1. CAD s/p CABG x 5 (NGUYEN-LAD, SVG-Olga Ildia, SVG-OM, SVG-LPLA, SVG-PDA) continue asa, BB, plavix, [...] CARE WITH HIS NURSE at 1116 RPT #:[id number] END OF REPORT [facility] 2022-08-26 16:17:00 [facility] Urology Progress Note REPORT#:[id number] REPORT STATUS: Signed DATE:08/26/22 TIME: 1616 PATIENT: BRENNAN AHN UNIT #: [id number] ROOM/BED: [place] [address] : 42 AGE: 82 SEX: M ATTEND: [...] cystoscopy Aubrey Keith MD at 1620 RPT #:[id number] END OF REPORT [facility] 2022-08-26 16:08:00 [facility] Nephrology Progress Note REPORT#:[id number] REPORT STATUS: Signed DATE:08/26/22 TIME: 1608 PATIENT: BRENNAN AHN UNIT #: [id number] ROOM/BED: [place] [address] : 42 AGE: 82 SEX: M ATTEND: [...] issues in the past and seeing a accordion repairer at [place] but his kidney function had been stable [...] and avoid nephrotoxic agents. He was following accordion repairer in [place] so plan to refer to his accordion repairer post discharge. 2. Hypervolemia:Patient at high risk [...] and avoid nephrotoxic agents. He was following accordion repairer in [place] so plan to refer to his accordion repairer post discharge. 2. Hypervolemia:Patient at high risk [...] and avoid nephrotoxic agents. He was following accordion repairer in [place] so plan to refer to his accordion repairer post discharge. 2. Hypervolemia:Patient at high risk of volume overload so would reccommend lasix PO, lasix held due to hypotension .Volume stable. 3. Electrolytes: His electrolytes appear to be in normal range plan is to monitor and replace as needed. 4. Hypotension: Midodrine dose increased .Plan to monitor and increase midodrine if SBP<110. Consultants: cardiology, cardiovascular surgery, hospitalist, nephrology at 1630 RPT #:[id number] END OF REPORT [facility] 2022-08-26 05:47:00 [facility] ([facility] Rehab Progress Note REPORT#:[id number] REPORT STATUS: Signed DATE:08/26/22 TIME: 0547 PATIENT: BRENNAN AHN UNIT #: [id number] ROOM/BED: [place] [address] : 42 AGE: 82 SEX: M ATTEND: [...] history of SVT/ablation who was transferred to [facility] after being found to have multivessel coronary artery disease. Patient initially with was at home and developed chest pains. He was brought to [facility] and underwent left heart cath which revealed [...] Sodium (COLACE) 100 MG BID PO Ipratropium Baker (ATROVENT) 500 MCG RTQ6H INH Sennosides (Senna Lax 8.6 MG TABLET) 17.2 MG BEDTIME PO Hydralazine HCl (APRESOLINE) 10 MG Q6H PRN PRN IV Acetaminophen (TYLENOL) 650 MG Q4H PRN PRN PO Ipratropium Baker (ATROVENT) 500 MCG RTQ2H PRN PRN INH [...] AG, calves NT, no cords, Homans neg Neuro/PRESS CLIPPER: alert, oriented X 3, CNII-XII intact, normal [...] (Auto) (14.0 - 32.0 %) 8.0 L [place] % (Auto) (4.8 - 9.0 %) 6.8 Eos % (Auto) (0.3 - 3.7 %) 6.5 H Baso % (Auto) (0.0 - 2.0 %) 0.8 Neut # (Auto) (2.0 - 7.6 x10 3/uL) 8.00 H Lymph # (Auto) (1.0 - 3.8 x10 3/uL) 0.83 L [place] # (Auto) (0.1 - 0.8 x10 3/uL) [...] pH (5.0 - 7.0) 5.0 Ur Specific He[place]in (1.005 - 1.030) 1.011 Urine Protein (NEGATIVE) [...] case -LADARIUS as per nephrology-He was following accordion repairer in [place] so plan to refer to his accordion repairer post discharge. -Dementia/confusion-Higher level of nursing care [...] with interdisciplinary treatment plan. at 1910 RPT #:[id number] END OF REPORT [facility] 2022-08-25 15:02:00 [facility] Internal Medicine Prog. Note REPORT#:[id number] REPORT STATUS: Signed DATE:08/25/22 TIME: 1502 PATIENT: BRENNAN AHN UNIT #: [id number] ROOM/BED: [place] [address] : 42 AGE: 82 SEX: M ATTEND: [...] Sodium (COLACE) 100 MG BID PO Ipratropium Baker (ATROVENT) 500 MCG RTQ6H INH Sennosides (Senna Lax 8.6 MG TABLET) 17.2 MG BEDTIME PO Hydralazine HCl (APRESOLINE) 10 MG Q6H PRN PRN IV Acetaminophen (TYLENOL) 650 MG Q4H PRN PRN PO Ipratropium Baker (ATROVENT) 500 MCG RTQ2H PRN PRN INH Melatonin (Melatonin) 6 MG BEDTIME PRN PO Ondansetron HCl (ZOFRAN ODT) 4 MG TID PRN PRN SL Physical Exam General appearance: alert, awake, oriented Head/Eyes: EOMI, PERRLA Neck: non-tender, no JVD Cardiovascular: normal heart sounds, regular rate rhythm Respiratory: aerating well, clear to auscultation Abdomen: non-tender, normal bowel sounds Extremities: Extremities: no cyanosis, no edema Neuro/PRESS CLIPPER: alert, oriented x 3, CNII-XII intact Skin: [...] found on a cardiac catheterization done at [facility]. Patient was transferred to [facility] for CABG. He underwent [id number]. 1. Coronary artery disease -Status post CABG [...] Discussion included: code status at 0917 RPT #:[id number] END OF REPORT [facility] 2022-08-25 08:55:00 [facility] Cardiology Progress Note REPORT#:[id number] REPORT STATUS: Signed DATE:08/25/22 TIME: 08 PATIENT: BRENNAN AHN UNIT #: [id number] ROOM/BED: [place] [address] : 42 AGE: 82 SEX: M ATTEND: [...] AC 08/25 PO 09/15 2058 0805 Ipratropium Baker 500 MCG RTQ6H 08/16 2100 AC 08/24 INH 09/15 2058 1602 Sennosides 17.2 MG BEDTIME 08/16 2100 AC 08/24 PO 09/15 2058 210 Hydralazine HCl 10 MG Q6H PRN PRN 08/16 1315 AC IV 09/15 1314 Acetaminophen 650 MG Q4H PRN PRN 08/16 1300 AC 08/20 PO 09/15 1259 0918 Ipratropium Baker 500 MCG RTQ2H PRN PRN 08/16 1300 [...] harvest site), no edema Musculoskeletal: normal inspection Neuro/PRESS CLIPPER: alert Skin: dry Psychiatry: normal affect, normal [...] and ALAA. The patient is transferred to [facility] for inpatient rehabilitation. We are consulted [...] supportive care at 1214 at 1402 RPT #:[id number] END OF REPORT [facility] 2022-08-25 05:53:00 [facility] Rehab Progress Note REPORT#:[id number] REPORT STATUS: Signed DATE:08/25/22 TIME: 0553 PATIENT: BRENNAN AHN UNIT #: [id number] ROOM/BED: [place] [address] : 42 AGE: 82 SEX: M ATTEND: Arthur Fuentes MD ADM AUTHOR: Arthur Fuetnes MD * ALL edits or amendments must [...] history of SVT/ablation who was transferred to [facility] after being found to have multivessel coronary artery disease. Patient initially with was at home and developed chest pains. He was brought to [facility] and underwent left heart cath which revealed [...] Sodium (COLACE) 100 MG BID PO Ipratropium Baker (ATROVENT) 500 MCG RTQ6H INH Sennosides (Senna Lax 8.6 MG TABLET) 17.2 MG BEDTIME PO Hydralazine HCl (APRESOLINE) 10 MG Q6H PRN PRN IV Acetaminophen (TYLENOL) 650 MG Q4H PRN PRN PO Ipratropium Baker (ATROVENT) 500 MCG RTQ2H PRN PRN INH [...] AG, calves NT, no cords, Homans neg Neuro/PRESS CLIPPER: alert, oriented X 3, CNII-XII intact, normal speech, no motor deficits, no sensory deficits Results Findings/Data: Laboratory Tests: 08/24 1020 Urines Urine Color (YEL/STRAW) ALBERTO H Urine Appearance (CLEAR) CLEAR Urine pH (5.0 - 7.0) 5.0 Ur Specific [place] (1.005 - 1.030) 1.011 Urine Protein (NEGATIVE) [...] % (Auto) (14.0 - 32.0 %) 8.0 [place] % (Auto) (4.8 - 9.0 %) 6.8 Eos % (Auto) (0.3 - 3.7 %) 6.5 Baso % (Auto) (0.0 - 2.0 %) 0.8 Neut # (Auto) (2.0 - 7.6 x10 3/uL) 8.00 Lymph # (Auto) (1.0 - 3.8 x10 3/uL) 0.83 [place] # (Auto) (0.1 - 0.8 x10 3/uL) [...] pH (5.0 - 7.0) 5.0 Ur Specific [place]in (1.005 - 1.030) 1.011 Urine Protein (NEGATIVE) [...] case -LADARIUS as per nephrology-He was following accordion repairer in [place] so plan to refer to his accordion repairer post discharge. -Dementia/confusion-Higher level of nursing care [...] with interdisciplinary treatment plan. at 1050 RPT #:[id number] END OF REPORT [facility] 2022-08-24 14:22:00 [facility] Internal Medicine Prog. Note REPORT#:[id number] REPORT STATUS: Signed DATE:08/24/22 TIME: 1422 PATIENT: BRENNAN AHN UNIT #: [id number] ROOM/BED: [place] [address] : 42 AGE: 82 SEX: M ATTEND: [...] Sodium (COLACE) 100 MG BID PO Ipratropium Baker (ATROVENT) 500 MCG RTQ6H INH Sennosides (Senna Lax 8.6 MG TABLET) 17.2 MG BEDTIME PO Hydralazine HCl (APRESOLINE) 10 MG Q6H PRN PRN IV Acetaminophen (TYLENOL) 650 MG Q4H PRN PRN PO Ipratropium Baker (ATROVENT) 500 MCG RTQ2H PRN PRN INH Melatonin (Melatonin) 6 MG BEDTIME PRN PO Ondansetron HCl (ZOFRAN ODT) 4 MG TID PRN PRN SL Physical Exam General appearance: alert, awake, oriented Head/Eyes: EOMI, PERRLA Neck: non-tender, no JVD Cardiovascular: normal heart sounds, regular rate rhythm Respiratory: aerating well, clear to auscultation Abdomen: non-tender, normal bowel sounds Extremities: Extremities: no cyanosis, no edema Neuro/PRESS CLIPPER: alert, oriented x 3, CNII-XII intact Results Findings/Data: Laboratory Tests 08/24 1020 Urines Urine Color (YEL/STRAW) ALBERTO H Urine Appearance (CLEAR) CLEAR Urine pH (5.0 - 7.0) 5.0 Ur Specific [place] (1.005 - 1.030) 1.011 Urine Protein (NEGATIVE) [...] found on a cardiac catheterization done at [facility]. Patient was transferred to [facility] for CABG. He underwent CYUEr2c. 1. Coronary artery disease -Status post CABG [...] Discussion included: code status at 0917 RPT #:[id number] END OF REPORT [facility] 2022-08-24 11:36:00 [facility] Cardiothoracic Surgery Prog REPORT#:[id number] REPORT STATUS: Signed DATE:08/24/22 TIME: 1136 PATIENT: BRENNAN AHN UNIT #: [id number] ROOM/BED: [place] [address] : 42 AGE: 82 SEX: M ATTEND: Arthur Fuentes MD ADM AUTHOR: Shiloh Pimentel COLLECTOR OF AQUARIUM SPECIMENS * ALL edits or amendments must be [...] soft, non-tender, no distention Extremities: moves all Neuro/PRESS CLIPPER: alert, oriented X 3, normal speech, no [...] Sodium (COLACE) 100 MG BID PO Ipratropium Baker (ATROVENT) 500 MCG RTQ6H INH Sennosides (Senna Lax 8.6 MG TABLET) 17.2 MG BEDTIME PO Hydralazine HCl (APRESOLINE) 10 MG Q6H PRN PRN IV Acetaminophen (TYLENOL) 650 MG Q4H PRN PRN PO Ipratropium Baker (ATROVENT) 500 MCG RTQ2H PRN PRN INH Melatonin (Melatonin) 6 MG BEDTIME PRN PO Ondansetron HCl (ZOFRAN ODT) 4 MG TID PRN PRN SL Results Findings/Data: Laboratory Tests 08/24 1020 Urines Urine Color (YEL/STRAW) ALBERTO H Urine Appearance (CLEAR) CLEAR Urine pH (5.0 - 7.0) 5.0 Ur Specific [place] (1.005 - 1.030) 1.011 Urine Protein (NEGATIVE) [...] SVT ablation 20 years ago transferred to [facility] with new findings of multi-vessel CAD. He reports he was woken from [facility] on Sunday AM with COmplaints of chest pains. EMS aas called and patient was taken to [facility]. He underwent LHC and found to have multi-vessel CAD by Dr Sanchez. Patient was transferred to [facility] for CABG. Patient lives independently. Daughter is at bedside. Patient reports last dose of Elliquis was Sunday AM. Echo was done at [facility] showing EF 55%, Mild MR, Mild [...] points, SR and sinus arrythmnia noted on site monitor, V epicardial wires on backup rate of [...] plan reviewed with Dr Piper, Dr Kirkpatrick, [facility] and multidisciplinary team 08/13 Intermittently confused. [...] hospitalist, nephrology at 1141 at 1525 RPT #:[id number] END OF REPORT [facility] 2022-08-24 11:03:00 [facility] ([facility]) Nephrology Progress Note REPORT#:[id number] REPORT STATUS: Signed DATE:08/24/22 TIME: 1103 PATIENT: BRENNAN AHN UNIT #: [id number] ROOM/BED: [place] [address] : 42 AGE: 82 SEX: M ATTEND: [...] issues in the past and seeing a accordion repairer at [place] but his kidney function had been stable [...] and avoid nephrotoxic agents. He was following accordion repairer in [place] so plan to refer to his accordion repairer post discharge. 2. Hypervolemia:Patient at high risk [...] and avoid nephrotoxic agents. He was following accordion repairer in [place] so plan to refer to his accordion repairer post discharge. 2. Hypervolemia:Patient at high risk of volume overload so would reccommend lasix PO, lasix held due to hypotension .Volume stable. 3. Electrolytes: His electrolytes appear to be in normal range plan is to monitor and replace as needed. 4. Hypotension: Midodrine dose increased .Plan to monitor and increase midodrine if SBP<110. Consultants: cardiology, cardiovascular surgery, hospitalist, nephrology at 1105 RPT #:[id number] END OF REPORT [facility] 2022-08-24 10:51:00 [facility] ([facility]) Cardiology Progress Note REPORT#:[id number] REPORT STATUS: Signed DATE:08/24/22 TIME: 1051 PATIENT: BRENNAN AHN UNIT #: [id number] ROOM/BED: [facility] [...] Sodium (COLACE) 100 MG BID PO Ipratropium Baker (ATROVENT) 500 MCG RTQ6H INH Sennosides (Senna Lax 8.6 MG TABLET) 17.2 MG BEDTIME PO Hydralazine HCl (APRESOLINE) 10 MG Q6H PRN PRN IV Acetaminophen (TYLENOL) 650 MG Q4H PRN PRN PO Ipratropium Baker (ATROVENT) 500 MCG RTQ2H PRN PRN INH [...] harvest site), no edema Musculoskeletal: normal inspection Neuro/PRESS CLIPPER: alert Skin: dry Psychiatry: normal affect, normal mood Results Findings/Data: Laboratory Tests 08/24 1020 Urines Urine Color (YEL/STRAW) ALBERTO H Urine Appearance (CLEAR) CLEAR Urine pH (5.0 - 7.0) 5.0 Ur Specific He[place]in (1.005 - 1.030) 1.011 Urine Protein (NEGATIVE) [...] dislocation. Impression By: Aditya Pope M.D. Telemetry Interpretation: Atrial fibrillation with controlled rate Diagnosis, Assessment Plan Free Text DxA P Notes Free Text DxA P Notes: 82 YO male with MHX of Afib, HTN, HLD, CAD who is s/p 5 vessel CABG and PVI and ALAA. The patient is transferred to [facility] for inpatient rehabilitation. We are consulted [...] and eighth ribs at 1708 at 1402 [facility] #:[id number] END OF REPORT [facility] 2022-08-24 08:21:00 [facility] ([facility]) Urology Consult Note REPORT#:[id number] REPORT STATUS: Signed DATE:08/24/22 TIME: 820 PATIENT: BRENNAN AHN UNIT #: [id number] ROOM/BED: [place] [address] : 42 AGE: 82 SEX: M ATTEND: [...] or older: Former Smoker Allergies: Coded Allergies: Jvbehmm-TFU-KtG Reductase Inhibitor (Severe, UNKNOWN 08/16/22) Objective VS/I [...] cystoscopy Aubrey Keith MD at 0827 RPT #:[id number] END OF REPORT [facility] 2022-08-24 08:12:00 [facility] Rehab Progress Note REPORT#:[id number] REPORT STATUS: Signed DATE:08/24/22 TIME: 08 PATIENT: BRENNAN AHN UNIT #: [id number] ROOM/BED: [place] [address] : 42 AGE: 82 SEX: M ATTEND: [...] history of SVT/ablation who was transferred to [facility] after being found to have multivessel coronary artery disease. Patient initially with was at home and developed chest pains. He was brought to [facility] and underwent left heart cath which revealed [...] Sodium (COLACE) 100 MG BID PO Ipratropium Baker (ATROVENT) 500 MCG RTQ6H INH Sennosides (Senna Lax 8.6 MG TABLET) 17.2 MG BEDTIME PO Hydralazine HCl (APRESOLINE) 10 MG Q6H PRN PRN IV Acetaminophen (TYLENOL) 650 MG Q4H PRN PRN PO Ipratropium Baker (ATROVENT) 500 MCG RTQ2H PRN PRN INH [...] AG, calves NT, no cords, Homans neg Neuro/PRESS CLIPPER: alert, oriented X 3, CNII-XII intact, normal [...] % (Auto) (14.0 - 32.0 %) 8.0 [place] % (Auto) (4.8 - 9.0 %) 6.8 Eos % (Auto) (0.3 - 3.7 %) 6.5 Baso % (Auto) (0.0 - 2.0 %) 0.8 Neut # (Auto) (2.0 - 7.6 x10 3/uL) 8.00 Lymph # (Auto) (1.0 - 3.8 x10 3/uL) 0.83 [place] # (Auto) (0.1 - 0.8 x10 3/uL) [...] pH (5.0 - 7.0) 5.0 Ur Specific [place] (1.005 - 1.030) 1.011 Urine Protein (NEGATIVE) [...] with interdisciplinary treatment plan. at 1304 RPT #:[id number] END OF REPORT [facility] 2022-08-23 18:33:00 [facility] ([facility]) Nephrology Progress Note REPORT#:[id number] REPORT STATUS: Signed DATE:08/23/22 TIME: 1833 PATIENT: BRENNAN AHN UNIT #: [id number] ROOM/BED: [facility] [...] issues in the past and seeing a accordion repairer at [place] but his kidney function had been stable [...] and avoid nephrotoxic agents. He was following accordion repairer in [place] so plan to refer to his accordion repairer post discharge. 2. Hypervolemia:Patient at high risk of volume overload so would reccommend lasix PO, lasix held due to hypotension .Volume improving slowly. 3. Electrolytes: His electrolytes appear to be in normal range plan is to monitor and replace as needed. 4. Hypotension: Midodrine dose increased .Plan to monitor. Consultants: cardiology, cardiovascular surgery, hospitalist, nephrology at 1843 RPT #:[id number] END OF REPORT [facility] 2022-08-23 15:02:00 [facility]) Internal Medicine Prog. Note REPORT#:[id number] REPORT STATUS: Signed DATE:08/23/22 TIME: 1502 PATIENT: BRENNAN AHN UNIT #: [id number] ROOM/BED: [place] [address] : 42 AGE: 82 SEX: M ATTEND: [...] Sodium (COLACE) 100 MG BID PO Ipratropium Baker (ATROVENT) 500 MCG RTQ6H INH Sennosides (Senna Lax 8.6 MG TABLET) 17.2 MG BEDTIME PO Hydralazine HCl (APRESOLINE) 10 MG Q6H PRN PRN IV Acetaminophen (TYLENOL) 650 MG Q4H PRN PRN PO Ipratropium Baker (ATROVENT) 500 MCG RTQ2H PRN PRN INH Melatonin (Melatonin) 6 MG BEDTIME PRN PO Ondansetron HCl (ZOFRAN ODT) 4 MG TID PRN PRN SL Physical Exam General appearance: alert, awake, oriented Head/Eyes: EOMI, PERRLA Neck: non-tender, no JVD Cardiovascular: normal heart sounds, regular rate rhythm Respiratory: aerating well, clear to auscultation Abdomen: non-tender, normal bowel sounds Extremities: Extremities: no cyanosis, no edema Neuro/PRESS CLIPPER: alert, oriented x 3, CNII-XII intact Results [...] (Auto) (14.0 - 32.0 %) 8.0 L [place] % (Auto) (4.8 - 9.0 %) 6.8 Eos % (Auto) (0.3 - 3.7 %) 6.5 H Baso % (Auto) (0.0 - 2.0 %) 0.8 Neut # (Auto) (2.0 - 7.6 x10 3/uL) 8.00 H Lymph # (Auto) (1.0 - 3.8 x10 3/uL) 0.83 L [place] # (Auto) (0.1 - 0.8 x10 3/uL) [...] - Yosi Padron M.D. Diagnosis, Assessment Plan Hospital course to date: 82-year-old male with past medical history of hypertension, atrial fibrillation, supraventricular tachycardia status post ablation who was admitted with reports of multivessel coronary artery disease found on a cardiac catheterization done at [facility]. Patient was transferred to [facility] for CABG. He underwent [id number]. 1. Coronary artery disease -Status post CABG [...] Discussion included: code status at 0917 RPT #:[id number] END OF REPORT [facility] 2022-08-23 10:18:00 [facility] ([facility]) Cardiology Progress Note REPORT#:[id number] REPORT STATUS: Signed DATE:08/23/22 TIME: 1018 PATIENT: BRENNAN AHN UNIT #: [id number] ROOM/BED: [place] [address] : 42 AGE: 82 SEX: M ATTEND: [...] Sodium (COLACE) 100 MG BID PO Ipratropium Baker (ATROVENT) 500 MCG RTQ6H INH Sennosides (Senna Lax 8.6 MG TABLET) 17.2 MG BEDTIME PO Hydralazine HCl (APRESOLINE) 10 MG Q6H PRN PRN IV Acetaminophen (TYLENOL) 650 MG Q4H PRN PRN PO Ipratropium Baker (ATROVENT) 500 MCG RTQ2H PRN PRN INH [...] harvest site), no edema Musculoskeletal: normal inspection Neuro/PRESS CLIPPER: alert Skin: dry Psychiatry: normal affect, normal [...] (Auto) (14.0 - 32.0 %) 8.0 L [place] % (Auto) (4.8 - 9.0 %) 6.8 Eos % (Auto) (0.3 - 3.7 %) 6.5 H Baso % (Auto) (0.0 - 2.0 %) 0.8 Neut # (Auto) (2.0 - 7.6 x10 3/uL) 8.00 H Lymph # (Auto) (1.0 - 3.8 x10 3/uL) 0.83 L [place] # (Auto) (0.1 - 0.8 x10 3/uL) [...] and ALAA. The patient is transferred to [facility] for inpatient rehabilitation. We are consulted [...] rehab team at 1427 at 1402 RPT #:[id number] END OF REPORT [facility] 2022-08-23 06:50:00 [facility] ([facility]) Rehab Progress Note REPORT#:[id number] REPORT STATUS: Signed DATE:08/23/22 TIME: 0650 PATIENT: BRENNAN AHN UNIT #: [id number] ROOM/BED: [place] [address] : 42 AGE: 82 SEX: M ATTEND: Atrhur Fuentes MD ADM AUTHOR: Florentino Jimenez * [...] history of SVT/ablation who was transferred to [facility] after being found to have multivessel coronary artery disease. Patient initially with was at home and developed chest pains. He was brought to [facility] and underwent left heart cath which revealed [...] Sodium (COLACE) 100 MG BID PO Ipratropium Baker (ATROVENT) 500 MCG RTQ6H INH Metoprolol Tartrate (LOPRESSOR) 25 MG Q12HR PO (DC) Sennosides (Senna Lax 8.6 MG TABLET) 17.2 MG BEDTIME PO Hydralazine HCl (APRESOLINE) 10 MG Q6H PRN PRN IV Acetaminophen (TYLENOL) 650 MG Q4H PRN PRN PO Ipratropium Baker (ATROVENT) 500 MCG RTQ2H PRN PRN INH [...] ENZO HOSE AND BINDER IN PLACE. SUPINE-126/64 AK-69 SITTING- 107/64 AK 80 IN STANDING 91/59 AK 79. P: PT CONT. WITH PT POC. [...] AG, calves NT, no cords, Homans neg Neuro/PRESS CLIPPER: alert, oriented X 3, CNII-XII intact, normal [...] - 32.0 %) 8.0 L 9.9 L [place] % (Auto) (4.8 - 9.0 %) 6.8 8.2 Eos % (Auto) (0.3 - 3.7 %) 6.5 H 7.0 H Baso % (Auto) (0.0 - 2.0 %) 0.8 0.6 Neut # (Auto) (2.0 - 7.6 x10 3/uL) 8.00 H 6.91 Lymph # (Auto) (1.0 - 3.8 x10 3/uL) 0.83 L 0.93 L [place] # (Auto) (0.1 - 0.8 x10 3/uL) [...] pH (5.0 - 7.0) 5.0 Ur Specific [place]in (1.005 - 1.030) 1.011 Urine Protein (NEGATIVE) [...] patient. I agree with the teams finding DEISYOS: [08/21] EQ-mwrx-huhrthrf living DME-bedside commode, rolling walker Total time [...] right shoulder. at 0918 at 1647 RPT #:[id number] END OF REPORT [facility] 2022-08-22 17:21:00 [facility] ([facility]) Trauma Consultation Note REPORT#:[id number] REPORT STATUS: Signed DATE:08/22/22 TIME: 172 PATIENT: BRENNAN AHN UNIT #: [id number] ROOM/BED: [place] [address] : 42 AGE: 82 SEX: M ATTEND: Arthur Fuentes MD ADM AUTHOR: Ariana Kruse COLLECTOR OF AQUARIUM SPECIMENS * ALL edits or amendments must be [...] or older: Former Smoker Allergies: Coded Allergies: Rkshpmh-NSH-LwK Reductase Inhibitor (Severe, UNKNOWN 08/16/22) ROS ROS [...] they have elected Piero Rice, contact number [phone], to make medical decisions for them. Dispo: [...] with questions. at 1826 at 0926 RPT #:[id number] END OF REPORT [facility] 2022-08-22 15:30:00 [facility] Internal Medicine Prog. Note REPORT#:[id number] REPORT STATUS: Signed DATE:08/22/22 TIME: 1530 PATIENT: BRENNAN AHN UNIT #: [id number] ROOM/BED: [place] [address] : 42 AGE: 82 SEX: M ATTEND: [...] 157/74 08/22 152 B/P Mean 101.8 08/22 152 O2 Delivery Room air 08/22 152 Temp [...] Sodium (COLACE) 100 MG BID PO Ipratropium Baker (ATROVENT) 500 MCG RTQ6H INH Metoprolol Tartrate (LOPRESSOR) 25 MG Q12HR PO (DC) Sennosides (Senna Lax 8.6 MG TABLET) 17.2 MG BEDTIME PO Hydralazine HCl (APRESOLINE) 10 MG Q6H PRN PRN IV Acetaminophen (TYLENOL) 650 MG Q4H PRN PRN PO Ipratropium Baker (ATROVENT) 500 MCG RTQ2H PRN PRN INH Melatonin (Melatonin) 6 MG BEDTIME PRN PO Ondansetron HCl (ZOFRAN ODT) 4 MG TID PRN PRN SL Physical Exam General appearance: alert, awake, oriented Head/Eyes: EOMI, PERRLA Neck: non-tender, no JVD Cardiovascular: normal heart sounds, regular rate rhythm Respiratory: aerating well, clear to auscultation Abdomen: non-tender, normal bowel sounds Extremities: Extremities: no cyanosis, no edema Neuro/PRESS CLIPPER: alert, oriented x 3, CNII-XII intact Results [...] found on a cardiac catheterization done at [facility]. Patient was transferred to [facility] for CABG. He underwent [id number]. 1. Coronary artery disease -Status post CABG [...] cardiology, cardiovascular surgery, hospitalist, nephrology Quality: Gen [facility] Crit Care Current Medications Current medication review: I attest that the foregoing medication list in the medical record is true, accurate, and complete to the best of my knowledge. Advanced Care Plan 65 or Older Discussed with: patient Discussion included: code status at 0917 RPT #:[id number] END OF REPORT [facility] 2022-08-22 14:13:00 [facility] Nephrology Progress Note REPORT#:[id number] REPORT STATUS: Signed DATE:08/22/22 TIME: 1413 PATIENT: BRENNAN AHN UNIT #: [id number] ROOM/BED: [place] [address] : 42 AGE: 82 SEX: M ATTEND: [...] issues in the past and seeing a accordion repairer at [place] but his kidney function had been stable [...] cardiovascular surgery, hospitalist, nephrology at 1432 RPT #:[id number] END OF REPORT [facility] [facility] 13:28:00 [facility]) Rehab Team Conference REPORT#:[id number] REPORT STATUS: Signed DATE:08/22/22 TIME: 1328 PATIENT: BRENNAN AHN UNIT #: [id number] ROOM/BED: [place] [address] : 42 AGE: 82 SEX: M ATTEND: Arthur Fuentes MD ADM AUTHOR: Arthur Fuentes MD * ALL edits or amendments must be made on the electronic/computer document * Rehabilitation Team Conference Weekly Team Conference Team conf information: Date of conference: 08/22/22 Conference type: Initial Conference scribe: Ana Cristina Solano PTA INTERDISCIPLINARY TEAM MEETING PARTICIPANTS: TITLE NAME MD BRIDGER White, RN YAN Tristan, PT OT Vanessa Garcia OT CM/JOE Forrest CM ST Ami Hobbs, SHIRRER [facility] Ami Hobbs, JOVANNY Staff (8) NO [...] DME; 20" W/C, RW D/C; HHPT VS LONG TERM. PT LIVES ALONE IN [facility]. HAS POOR RECALL AND NO CARRYOVER WITH STERNAL PREC. PT ALSO GETS ORTHOSTATIC WITH PROLONGED STANDING ACTIVITES AND AMBULATION. PT IS MOD A WITH BED MOB, MIN A FOR TRANSFERS FROM HIGHER SEATED POSITION, MIN A WITH AMBULATION WITH RW. OT team conference update: PT MAKING FAIR PROGRESS WITH ADL TRANSFERS D/T POOR CARRYOVER OF SAFETY/ADHERENCE TO STERNAL PREC. ADLS: MIN-OK DME: BSC BARRIERS: DEC ENDURANCE, DEC SAFETY/STM MEMORY ST team conference update: CM or SW team conference update: PATIENT LIVES AT HOME ALONE. DAUGHTER LIVES IN [place] AND SON LIVES ABOUT AN HOUR AWAY. PLAN FOR THE PATIENT TO GO TO AN LONG TERM TO TIME OF DC. Other discipline update [...] (4) Twelve steps discharge goal: Not applicable Bradford 150 feet discharge goal: Independent (6) Goal [...] FAMILY TRAINING TO BE SCHEUDLED BY THERAPY. [place] day (DATE): 08/28/22 Expected discharge destination: Assisted [...] criteria See my note at 1329 RPT #:[id number] END OF REPORT [facility] 2022-08-22 09:09:00 [facility] ([facility]) Cardiology Progress Note REPORT#:[id number] REPORT STATUS: Signed DATE:08/22/22 TIME: 908 PATIENT: BRENNAN AHN UNIT #: [id number] ROOM/BED: [place] [address] : 42 AGE: 82 SEX: M ATTEND: [...] Sodium (COLACE) 100 MG BID PO Ipratropium Baker (ATROVENT) 500 MCG RTQ6H INH Metoprolol Tartrate (LOPRESSOR) 25 MG Q12HR PO (DC) Sennosides (Senna Lax 8.6 MG TABLET) 17.2 MG BEDTIME PO Hydralazine HCl (APRESOLINE) 10 MG Q6H PRN PRN IV Acetaminophen (TYLENOL) 650 MG Q4H PRN PRN PO Ipratropium Baker (ATROVENT) 500 MCG RTQ2H PRN PRN INH [...] LE assessment: no edema Musculoskeletal: normal inspection Neuro/PRESS CLIPPER: alert Skin: dry Psychiatry: normal affect, normal [...] pH (5.0 - 7.0) 5.0 Ur Specific [place]flin (1.005 - 1.030) 1.011 Urine Protein (NEGATIVE) [...] and ALAA. The patient is transferred to [facility] for inpatient rehabilitation. We are consulted [...] it tomorrow at 1335 at 1402 RPT #:[id number] END OF REPORT [facility] 2022-08-22 08:52:00 [facility] ([facility]) Rehab Progress Note REPORT#:[id number] REPORT STATUS: Signed DATE:08/22/22 TIME: 851 PATIENT: BRENNAN AHN UNIT #: [id number] ROOM/BED: [place] [address] : 42 AGE: 82 SEX: M ATTEND: [...] history of SVT/ablation who was transferred to [facility] after being found to have multivessel coronary artery disease. Patient initially with was at home and developed chest pains. He was brought to [facility] and underwent left heart cath which revealed [...] Sodium (COLACE) 100 MG BID PO Ipratropium Baker (ATROVENT) 500 MCG RTQ6H INH Metoprolol Tartrate (LOPRESSOR) 25 MG Q12HR PO Sennosides (Senna Lax 8.6 MG TABLET) 17.2 MG BEDTIME PO Hydralazine HCl (APRESOLINE) 10 MG Q6H PRN PRN IV Acetaminophen (TYLENOL) 650 MG Q4H PRN PRN PO Ipratropium Baker (ATROVENT) 500 MCG RTQ2H PRN PRN INH [...] BUE, R hand Sl tender/edema, sternum incision [facility] site CDI Musculoskeletal - general: Musculoskeletal - general: OA changes, normal tone, no swelling, Moves all 4 exts AG, calves NT, no cords, Homans neg Neuro/PRESS CLIPPER: alert, oriented X 3, CNII-XII intact, normal [...] pH (5.0 - 7.0) 5.0 Ur Specific Heflin (1.005 - 1.030) 1.011 Urine Protein (NEGATIVE) [...] agree with the teams finding ELOS: [08/21] [id number] living DME-bedside commode, rolling walker Total time was 35 minutes > 50% with patient performing physical examination, discussing with patient about team conference, discharge plans, sternal precautions, plan of care, goals, therapies, progress, medications, labs. All questions answered Orders: Procedure Date/time Status CARDIAC DIET 08/22 D Active NEB TREATMENT SUBSQ 08/22 8042 Active NEB TREATMENT SUBSQ 08/21 8862 Active Consultants: cardiology, cardiovascular surgery, hospitalist, nephrology Rehab attestation: Face to face exam completed. Treatment plan discussed with patient. Meets continued stay criteria. Agree with interdisciplinary treatment plan. at 1328 RPT #:[id number] END OF REPORT [facility] 2022-08-21 19:54:00 [facility] ([facility]) Nephrology Progress Note REPORT#:[id number] REPORT STATUS: Signed DATE:08/21/22 TIME: 1953 PATIENT: BRENNAN AHN UNIT #: [id number] ROOM/BED: [place] [address] : 42 AGE: 82 SEX: M ATTEND: [...] issues in the past and seeing a accordion repairer at [place] but his kidney function had been stable [...] cardiovascular surgery, hospitalist, nephrology at 1413 RPT #:[id number] END OF REPORT [facility] 2022-08-21 15:18:00 [facility]) Internal Medicine Prog. Note REPORT#:[id number] REPORT STATUS: Signed DATE:08/21/22 TIME: 1517 PATIENT: BRENNAN AHN UNIT #: [id number] ROOM/BED: [place] [address] : 42 AGE: 82 SEX: M ATTEND: [...] Sodium (COLACE) 100 MG BID PO Ipratropium Baker (ATROVENT) 500 MCG RTQ6H INH Metoprolol Tartrate (LOPRESSOR) 25 MG Q12HR PO Sennosides (Senna Lax 8.6 MG TABLET) 17.2 MG BEDTIME PO Hydralazine HCl (APRESOLINE) 10 MG Q6H PRN PRN IV Acetaminophen (TYLENOL) 650 MG Q4H PRN PRN PO Ipratropium Baker (ATROVENT) 500 MCG RTQ2H PRN PRN INH Melatonin (Melatonin) 6 MG BEDTIME PRN PO Ondansetron HCl (ZOFRAN ODT) 4 MG TID PRN PRN SL Physical Exam General appearance: alert, awake, oriented Head/Eyes: EOMI, PERRLA Neck: non-tender, no JVD Cardiovascular: normal heart sounds, regular rate rhythm Respiratory: aerating well, clear to auscultation Abdomen: non-tender, normal bowel sounds Extremities: Extremities: no cyanosis, no edema Neuro/PRESS CLIPPER: alert, oriented x 3, CNII-XII intact Results Findings/Data: Laboratory Tests 08/21/22529: [Embedded Image Not Available] Laboratory Tests 08/21 [...] (Auto) (14.0 - 32.0 %) 9.9 L [place] % (Auto) (4.8 - 9.0 %) 8.2 Eos % (Auto) (0.3 - 3.7 %) 7.0 H Baso % (Auto) (0.0 - 2.0 %) 0.6 Neut # (Auto) (2.0 - 7.6 x10 3/uL) 6.91 Lymph # (Auto) (1.0 - 3.8 x10 3/uL) 0.93 L [place] # (Auto) (0.1 - 0.8 x10 3/uL) [...] pH (5.0 - 7.0) 5.0 Ur Specific He[place]in (1.005 - 1.030) 1.011 Urine Protein (NEGATIVE) [...] found on a cardiac catheterization done at [facility]. Patient was transferred to [facility] for CABG. He underwent [id number]. 1. Coronary artery disease -Status post CABG [...] Discussion included: code status at 0917 RPT #:[id number] END OF REPORT [facility] 2022-08-21 12:53:00 [facility] ([facility]) Cardiothoracic Surgery Prog REPORT#:[id number] REPORT STATUS: Signed DATE:08/21/22 TIME: 1253 PATIENT: BRENNAN AHN UNIT #: [id number] ROOM/BED: [place] [address] : 42 AGE: 82 SEX: M ATTEND: [...] soft, non-tender, no distention Extremities: moves all Neuro/PRESS CLIPPER: alert, oriented X 3, normal speech, no [...] Sodium (COLACE) 100 MG BID PO Ipratropium Baker (ATROVENT) 500 MCG RTQ6H INH Metoprolol Tartrate (LOPRESSOR) 25 MG Q12HR PO Sennosides (Senna Lax 8.6 MG TABLET) 17.2 MG BEDTIME PO Hydralazine HCl (APRESOLINE) 10 MG Q6H PRN PRN IV Acetaminophen (TYLENOL) 650 MG Q4H PRN PRN PO Ipratropium Baker (ATROVENT) 500 MCG RTQ2H PRN PRN INH [...] (Auto) (14.0 - 32.0 %) 9.9 L [place] % (Auto) (4.8 - 9.0 %) 8.2 Eos % (Auto) (0.3 - 3.7 %) 7.0 H Baso % (Auto) (0.0 - 2.0 %) 0.6 Neut # (Auto) (2.0 - 7.6 x10 3/uL) 6.91 Lymph # (Auto) (1.0 - 3.8 x10 3/uL) 0.93 L [place] # (Auto) (0.1 - 0.8 x10 3/uL) [...] pH (5.0 - 7.0) 5.0 Ur Specific [place] (1.005 - 1.030) 1.011 Urine Protein (NEGATIVE) [...] SVT ablation 20 years ago transferred to [facility] with new findings of multi-vessel CAD. He reports he was woken from [facility] on Sunday AM with COmplaints of chest pains. EMS aas called and patient was taken to [facility]. He underwent LHC and found to have multi-vessel CAD by Dr Sanchez. Patient was transferred to [facility] for CABG. Patient lives independently. Daughter is at bedside. Patient reports last dose of Elliquis was Sunday AM. Echo was done at [facility] showing EF 55%, Mild MR, Mild [...] points, SR and sinus arrythmnia noted on site monitor, V epicardial wires on backup rate of [...] plan reviewed with Dr Piper, Dr Kirkpatrick, [facility] and multidisciplinary team 08/13 Intermittently confused. [...] seen and plan reviewed with Dr Kirkpatrick, [facility] multidisciplinary team Family updated at the [...] seen and plan reviewed with Dr. Kirkpatrick, [facility] and multidisciplinary team 08/16 Creatine 1.9--> 2.0- [...] cardiovascular surgery, hospitalist, nephrology at 1259 at 6789 [facility] #:[id number] END OF REPORT [facility] 2022-08-21 09:39:00 [facility] ([facility]) Cardiology Progress Note REPORT#:[id number] REPORT STATUS: Signed DATE:08/21/22 TIME: 938 PATIENT: BRENNAN AHN UNIT #: [id number] ROOM/BED: [place] [address] : 42 AGE: 82 SEX: M ATTEND: [...] Sodium (COLACE) 100 MG BID PO Ipratropium Baker (ATROVENT) 500 MCG RTQ6H INH Metoprolol Tartrate (LOPRESSOR) 25 MG Q12HR PO Sennosides (Senna Lax 8.6 MG TABLET) 17.2 MG BEDTIME PO Hydralazine HCl (APRESOLINE) 10 MG Q6H PRN PRN IV Acetaminophen (TYLENOL) 650 MG Q4H PRN PRN PO Ipratropium Baker (ATROVENT) 500 MCG RTQ2H PRN PRN INH [...] LE assessment: edema (trace) Musculoskeletal: normal inspection Neuro/PRESS CLIPPER: alert Skin: dry Psychiatry: normal affect, normal [...] (Auto) (14.0 - 32.0 %) 9.9 L [place] % (Auto) (4.8 - 9.0 %) 8.2 Eos % (Auto) (0.3 - 3.7 %) 7.0 H Baso % (Auto) (0.0 - 2.0 %) 0.6 Neut # (Auto) (2.0 - 7.6 x10 3/uL) 6.91 Lymph # (Auto) (1.0 - 3.8 x10 3/uL) 0.93 L [place] # (Auto) (0.1 - 0.8 x10 3/uL) [...] and ALAA. The patient is transferred to [facility] for inpatient rehabilitation. We are consulted [...] doing good. at 1252 at 1402 RPT #:[id number] END OF REPORT [facility] 2022-08-21 06:29:00 [facility] Rehab Progress Note REPORT#:[id number] REPORT STATUS: Signed DATE:08/21/22 TIME: 628 PATIENT: BRENNAN AHN UNIT #: [id number] ROOM/BED: [place] [address] : 42 AGE: 82 SEX: M ATTEND: [...] history of SVT/ablation who was transferred to [facility] after being found to have multivessel coronary artery disease. Patient initially with was at home and developed chest pains. He was brought to [facility] and underwent left heart cath which revealed [...] Sodium (COLACE) 100 MG BID PO Ipratropium Baker (ATROVENT) 500 MCG RTQ6H INH Metoprolol Tartrate (LOPRESSOR) 25 MG Q12HR PO Sennosides (Senna Lax 8.6 MG TABLET) 17.2 MG BEDTIME PO Hydralazine HCl (APRESOLINE) 10 MG Q6H PRN PRN IV Acetaminophen (TYLENOL) 650 MG Q4H PRN PRN PO Ipratropium Baker (ATROVENT) 500 MCG RTQ2H PRN PRN INH [...] consider swapping to regular. 2) Texture per SHIRRER/MD recommendations Dietitian name: Logan Spain, DIET Assessment [...] AG, calves NT, no cords, Homans neg Neuro/PRESS CLIPPER: alert, oriented X 3, CNII-XII intact, normal [...] % (Auto) (14.0 - 32.0 %) 9.9 [place] % (Auto) (4.8 - 9.0 %) 8.2 Eos % (Auto) (0.3 - 3.7 %) 7.0 Baso % (Auto) (0.0 - 2.0 %) 0.6 Neut # (Auto) (2.0 - 7.6 x10 3/uL) 6.91 Lymph # (Auto) (1.0 - 3.8 x10 3/uL) 0.93 [place] # (Auto) (0.1 - 0.8 x10 3/uL) [...] with interdisciplinary treatment plan. at 1044 RPT #:[id number] END OF REPORT [facility] 2022-08-20 23:34:00 [facility] ([facility]) Nephrology Progress Note REPORT#:[id number] REPORT STATUS: Signed DATE:08/20/22 TIME: 2333 PATIENT: BRENNAN AHN UNIT #: [id number] ROOM/BED: [place] [address] : 42 AGE: 82 SEX: M ATTEND: [...] issues in the past and seeing a accordion repairer at [place] but his kidney function had been stable [...] cardiovascular surgery, hospitalist, nephrology at 1954 RPT #:[id number] END OF REPORT [facility] 2022-08-20 15:32:00 [facility] Internal Medicine Prog. Note REPORT#:[id number] REPORT STATUS: Signed DATE:08/20/22 TIME: 1531 PATIENT: BRENNAN AHN UNIT #: [id number] ROOM/BED: [place] [address] : 42 AGE: 82 SEX: M ATTEND: [...] Sodium (COLACE) 100 MG BID PO Ipratropium Baker (ATROVENT) 500 MCG RTQ6H INH Metoprolol Tartrate (LOPRESSOR) 25 MG Q12HR PO Sennosides (Senna Lax 8.6 MG TABLET) 17.2 MG BEDTIME PO Hydralazine HCl (APRESOLINE) 10 MG Q6H PRN PRN IV Acetaminophen (TYLENOL) 650 MG Q4H PRN PRN PO Ipratropium Baker (ATROVENT) 500 MCG RTQ2H PRN PRN INH Melatonin (Melatonin) 6 MG BEDTIME PRN PO Ondansetron HCl (ZOFRAN ODT) 4 MG TID PRN PRN SL Physical Exam General appearance: alert, awake, oriented Head/Eyes: EOMI, PERRLA Neck: non-tender, no JVD Cardiovascular: normal heart sounds, regular rate rhythm Respiratory: aerating well, clear to auscultation Abdomen: non-tender, normal bowel sounds Extremities: Extremities: no cyanosis, no edema Neuro/PRESS CLIPPER: alert, oriented x 3, CNII-XII intact Diagnosis, Assessment Plan Hospital course to date: 82-year-old male with past medical history of hypertension, atrial fibrillation, supraventricular tachycardia status post ablation who was admitted with reports of multivessel coronary artery disease found on a cardiac catheterization done at [facility]. Patient was transferred to [facility] for CABG. He underwent [id number]. 1. Coronary artery disease -Status post CABG [...] Discussion included: code status at 0917 RPT #:[id number] END OF REPORT [facility] 2022-08-20 08:17:00 [facility]) Cardiology Progress Note REPORT#:[id number] REPORT STATUS: Signed DATE:08/20/22 TIME: 08 PATIENT: BRENNAN AHN UNIT #: [id number] ROOM/BED: [place] [address] : 42 AGE: 82 SEX: M ATTEND: [...] Sodium (COLACE) 100 MG BID PO Ipratropium Baker (ATROVENT) 500 MCG RTQ6H INH Metoprolol Tartrate (LOPRESSOR) 25 MG Q12HR PO Sennosides (Senna Lax 8.6 MG TABLET) 17.2 MG BEDTIME PO Hydralazine HCl (APRESOLINE) 10 MG Q6H PRN PRN IV Acetaminophen (TYLENOL) 650 MG Q4H PRN PRN PO Ipratropium Baker (ATROVENT) 500 MCG RTQ2H PRN PRN INH [...] extremity: LE assessment: edema Musculoskeletal: normal inspection Neuro/PRESS CLIPPER: alert Skin: dry Psychiatry: normal affect, normal mood Diagnosis, Assessment Plan Consultants: cardiology, cardiovascular surgery, hospitalist, nephrology Free Text DxA P Notes Free Text DxA P Notes: 82 YO male with MHX of Afib, HTN, HLD, CAD who is s/p 5 vessel CABG and PVI and ALAA. The patient is transferred to [facility] for inpatient rehabilitation. We are consulted [...] normotensive continue metoprolol 25 mg BID 4. LAADRIUS nephrology following at 0817 RPT #:[id number] END OF REPORT [facility] 2022-08-20 05:47:00 [facility] ([facility]) Rehab Progress Note REPORT#:[id number] REPORT STATUS: Signed DATE:08/20/22 TIME: 0547 PATIENT: BRENNAN AHN UNIT #: [id number] ROOM/BED: [place] [address] : 42 AGE: 82 SEX: M ATTEND: [...] history of SVT/ablation who was transferred to [facility] after being found to have multivessel coronary artery disease. Patient initially with was at home and developed chest pains. He was brought to [facility] and underwent left heart cath which revealed [...] Sodium (COLACE) 100 MG BID PO Ipratropium Baker (ATROVENT) 500 MCG RTQ6H INH Metoprolol Tartrate (LOPRESSOR) 25 MG Q12HR PO Sennosides (Senna Lax 8.6 MG TABLET) 17.2 MG BEDTIME PO Hydralazine HCl (APRESOLINE) 10 MG Q6H PRN PRN IV Acetaminophen (TYLENOL) 650 MG Q4H PRN PRN PO Ipratropium Baker (ATROVENT) 500 MCG RTQ2H PRN PRN INH [...] consider swapping to regular. 2) Texture per SHIRRER/MD recommendations Dietitian name: Logan Spain, DIET Assessment completed: 08/17/22 ___ Functional Progress Functional progress: PT daily note comment: S: Upon arrival pt in bed. Son present for orientation. Son confirmed pt lived alone BUSINESS PERFORMANCE SPECIALIST was still driving however family was already looking into LONG TERM. O: Pt tolerated 90 min of skilled [...] AG, calves NT, no cords, Homans neg Neuro/PRESS CLIPPER: alert, oriented X 3, CNII-XII intact, normal [...] teams finding ELOS: [ ] DC-home-HH DME- Total time was 33 minutes > 50% with patient performing physical examination, discussing sternal precautions, plan of care, goals, therapies, progress, medications, labs. All questions answered Rehab attestation: Face to face exam completed. Treatment plan discussed with patient. Meets continued stay criteria. Agree with interdisciplinary treatment plan. at 0521 RPT #:[id number] END OF REPORT [facility] 2022-08-19 14:16:00 [facility] Nephrology Progress Note REPORT#:[id number] REPORT STATUS: Signed DATE:08/19/22 TIME: 1416 PATIENT: BRENNAN AHN UNIT #: [id number] ROOM/BED: [facility] : 42 AGE: 82 SEX: M ATTEND: [...] issues in the past and seeing a accordion repairer at [place] but his kidney function had been stable since then.He developed oliguria,LADRAIUS and hypervolemia post CABG but had now [...] cardiovascular surgery, hospitalist, nephrology at 1047 RPT #:[id number] END OF REPORT [facility] 2022-08-19 12:53:00 [facility] Internal Medicine Prog. Note REPORT#:[id number] REPORT STATUS: Signed DATE:08/19/22 TIME: 1253 PATIENT: BRENNAN AHN UNIT #: [id number] ROOM/BED: [place] [address] : 42 AGE: 82 SEX: M ATTEND: Arthur uFentes MD ADM AUTHOR: Devin Fox DO * [...] Sodium (COLACE) 100 MG BID PO Ipratropium Baker (ATROVENT) 500 MCG RTQ6H INH Metoprolol Tartrate (LOPRESSOR) 25 MG Q12HR PO Sennosides (Senna Lax 8.6 MG TABLET) 17.2 MG BEDTIME PO Hydralazine HCl (APRESOLINE) 10 MG Q6H PRN PRN IV Acetaminophen (TYLENOL) 650 MG Q4H PRN PRN PO Ipratropium Baker (ATROVENT) 500 MCG RTQ2H PRN PRN INH Melatonin (Melatonin) 6 MG BEDTIME PRN PO Ondansetron HCl (ZOFRAN ODT) 4 MG TID PRN PRN SL Physical Exam Head/Eyes: EOMI, PERRLA Neck: non-tender, no JVD Cardiovascular: normal heart sounds, regular rate rhythm Respiratory: aerating well, clear to auscultation Abdomen: non-tender, normal bowel sounds Extremities: Extremities: no cyanosis, no edema Neuro/PRESS CLIPPER: alert, oriented x 3, CNII-XII intact Diagnosis, Assessment Plan Hospital course to date: 82-year-old male with past medical history of hypertension, atrial fibrillation, supraventricular tachycardia status post ablation who was admitted with reports of multivessel coronary artery disease found on a cardiac catheterization done at [facility]. Patient was transferred to [facility] for CABG. He underwent [id number]. 1. Coronary artery disease -Status post CABG [...] Discussion included: code status at 2157 RPT #:[id number] END OF REPORT [facility] 2022-08-19 07:15:00 [facility] ([facility]) Cardiology Progress Note REPORT#:[id number] REPORT STATUS: Signed DATE:08/19/22 TIME: 714 PATIENT: BRENNAN AHN UNIT #: [id number] ROOM/BED: [place] [address] : 42 AGE: 82 SEX: M ATTEND: [...] Sodium (COLACE) 100 MG BID PO Ipratropium Baker (ATROVENT) 500 MCG RTQ6H INH Metoprolol Tartrate (LOPRESSOR) 25 MG Q12HR PO Sennosides (Senna Lax 8.6 MG TABLET) 17.2 MG BEDTIME PO Hydralazine HCl (APRESOLINE) 10 MG Q6H PRN PRN IV Acetaminophen (TYLENOL) 650 MG Q4H PRN PRN PO Ipratropium Baker (ATROVENT) 500 MCG RTQ2H PRN PRN INH [...] extremity: LE assessment: edema Musculoskeletal: normal inspection Neuro/PRESS CLIPPER: alert Skin: dry Psychiatry: normal affect, normal mood Diagnosis, Assessment Plan Consultants: cardiology, cardiovascular surgery, hospitalist, nephrology Free Text DxA P Notes Free Text DxA P Notes: 82 YO male with MHX of Afib, HTN, HLD, CAD who is s/p 5 vessel CABG and PVI and ALAA. The patient is transferred to [facility] for inpatient rehabilitation. We are consulted [...] 4. LADARIUS nephrology following at 0715 RPT #:[id number] END OF REPORT [facility] 2022-08-19 05:41:00 [facility] Rehab Progress Note REPORT#:[id number] REPORT STATUS: Signed DATE:08/19/22 TIME: 05 PATIENT: BRENNAN AHN UNIT #: [id number] ROOM/BED: [place] [address] : 42 AGE: 82 SEX: M ATTEND: [...] history of SVT/ablation who was transferred to [facility] after being found to have multivessel coronary artery disease. Patient initially with was at home and developed chest pains. He was brought to [facility] and underwent left heart cath which revealed [...] Sodium (COLACE) 100 MG BID PO Ipratropium Baker (ATROVENT) 500 MCG RTQ6H INH Metoprolol Tartrate (LOPRESSOR) 25 MG Q12HR PO Sennosides (Senna Lax 8.6 MG TABLET) 17.2 MG BEDTIME PO Hydralazine HCl (APRESOLINE) 10 MG Q6H PRN PRN IV Acetaminophen (TYLENOL) 650 MG Q4H PRN PRN PO Ipratropium Baker (ATROVENT) 500 MCG RTQ2H PRN PRN INH Melatonin (Melatonin) 6 MG BEDTIME PRN PO Ondansetron HCl (ZOFRAN ODT) 4 MG TID PRN PRN SL Functional Progress Functional progress: PT daily note comment: S: Upon arrival pt in bed. Son present for orientation. Son confirmed pt lived alone BUSINESS PERFORMANCE SPECIALIST was still driving however family was already looking into LONG TERM. O: Pt tolerated 90 min of skilled [...] AG, calves NT, no cords, Homans neg Neuro/PRESS CLIPPER: alert, oriented X 3, CNII-XII intact, normal [...] % (Auto) (14.0 - 32.0 %) 14.4 [place] % (Auto) (4.8 - 9.0 %) 12.6 H Eos % (Auto) (0.3 - 3.7 %) 6.9 H Baso % (Auto) (0.0 - 2.0 %) 0.7 Neut # (Auto) (2.0 - 7.6 x10 3/uL) 5.59 Lymph # (Auto) (1.0 - 3.8 x10 3/uL) 1.25 [place] # (Auto) (0.1 - 0.8 x10 3/uL) [...] teams finding ELOS: [ ] DC-home-HH DME- Total time was 33 minutes > 50% with patient performing physical examination, discussing sternal precautions, plan of care, goals, therapies, progress, medications, labs. All questions answered Rehab attestation: Face to face exam completed. Treatment plan discussed with patient. Meets continued stay criteria. Agree with interdisciplinary treatment plan. at 0537 RPT #:[id number] END OF REPORT [facility] 2022-08-18 23:15:00 [facility] ([facility]) Nephrology Progress Note REPORT#:[id number] REPORT STATUS: Signed DATE:08/18/22 TIME: 2314 PATIENT: BRENNAN AHN UNIT #: [id number] ROOM[facility]BED: [facility] issues in the past and seeing a accordion repairer at [place] but his kidney function had been stable [...] cardiovascular surgery, hospitalist, nephrology at 1415 RPT #:[id number] END OF REPORT [facility] 2022-08-18 16:04:00 [facility] Internal Medicine Prog. Note REPORT#:[id number] REPORT STATUS: Signed DATE:08/18/22 TIME: 1604 PATIENT: BRENNAN AHN UNIT #: [id number] ROOM/BED: [place] [address] : 42 AGE: 82 SEX: M ATTEND: [...] 1525 Pulse 70 08/18 1525 Resp 18 03/17 1525 24 hour I O ending at [...] Sodium (COLACE) 100 MG BID PO Ipratropium Baker (ATROVENT) 500 MCG RTQ6H INH Metoprolol Tartrate (LOPRESSOR) 25 MG Q12HR PO Sennosides (Senna Lax 8.6 MG TABLET) 17.2 MG BEDTIME PO Hydralazine HCl (APRESOLINE) 10 MG Q6H PRN PRN IV Acetaminophen (TYLENOL) 650 MG Q4H PRN PRN PO Ipratropium Baker (ATROVENT) 500 MCG RTQ2H PRN PRN INH Melatonin (Melatonin) 6 MG BEDTIME PRN PO Ondansetron HCl (ZOFRAN ODT) 4 MG TID PRN PRN SL Physical Exam General appearance: alert, awake, oriented Head/Eyes: EOMI, PERRLA Neck: non-tender, no JVD Cardiovascular: normal heart sounds, regular rate rhythm Respiratory: aerating well, clear to auscultation Abdomen: non-tender, normal bowel sounds Extremities: Extremities: no cyanosis, no edema Neuro/PRESS CLIPPER: alert, oriented x 3, CNII-XII intact Diagnosis, Assessment Plan Hospital course to date: 82-year-old male with past medical history of hypertension, atrial fibrillation, supraventricular tachycardia status post ablation who was admitted with reports of multivessel coronary artery disease found on a cardiac catheterization done at [facility]. Patient was transferred to [facility] for CABG. He underwent [id number]. 1. Coronary artery disease -Status post CABG [...] cardiology, cardiovascular surgery, hospitalist, nephrology Quality: [facility] Current Medications Current medication review: I attest that the foregoing medication list in the medical record is true, accurate, and complete to the best of my knowledge. Advanced Care Plan 65 or Older Discussed with: patient Discussion included: code status at 2157 RPT #:[id number] END OF REPORT [facility] 2022-08-18 09:35:00 [facility] ([facility]) Cardiology Progress Note REPORT#:[id number] REPORT STATUS: Signed DATE:08/18/22 TIME: 934 PATIENT: BRENNAN AHN UNIT #: [id number] ROOM/BED: [place] [address] : 42 AGE: 82 SEX: M ATTEND: [...] Sodium (COLACE) 100 MG BID PO Ipratropium Baker (ATROVENT) 500 MCG RTQ6H INH Metoprolol Tartrate (LOPRESSOR) 25 MG Q12HR PO Sennosides (Senna Lax 8.6 MG TABLET) 17.2 MG BEDTIME PO Amiodarone HCl (CORDARONE) 200 MG TID PO (DC) Hydralazine HCl (APRESOLINE) 10 MG Q6H PRN PRN IV Acetaminophen (TYLENOL) 650 MG Q4H PRN PRN PO Ipratropium Baker (ATROVENT) 500 MCG RTQ2H PRN PRN INH [...] extremity: LE assessment: edema Musculoskeletal: normal inspection Neuro/PRESS CLIPPER: alert Skin: dry Psychiatry: normal affect, normal [...] and ALAA. The patient is transferred to [facility] for inpatient rehabilitation. We are consulted [...] nephrology following at 1103 at 1308 RPT #:[id number] END OF REPORT [facility] 2022-08-18 07:26:00 [facility] Rehab Progress Note REPORT#:[id number] REPORT STATUS: Signed DATE:08/18/22 TIME: 725 PATIENT: BRENNAN AHN UNIT #: [id number] ROOM/BED: [facility] : 42 AGE: 82 SEX: M ATTEND: [...] history of SVT/ablation who was transferred to [facility] after being found to have multivessel coronary artery disease. Patient initially with was at home and developed chest pains. He was brought to [facility] and underwent left heart cath which revealed [...] Sodium (COLACE) 100 MG BID PO Ipratropium Baker (ATROVENT) 500 MCG RTQ6H INH Metoprolol Tartrate (LOPRESSOR) 25 MG Q12HR PO Sennosides (Senna Lax 8.6 MG TABLET) 17.2 MG BEDTIME PO Amiodarone HCl (CORDARONE) 200 MG TID PO (DC) Hydralazine HCl (APRESOLINE) 10 MG Q6H PRN PRN IV Acetaminophen (TYLENOL) 650 MG Q4H PRN PRN PO Ipratropium Baker (ATROVENT) 500 MCG RTQ2H PRN PRN INH [...] BUE, R hand Sl tender/edema, sternum incision [facility] site CDI Musculoskeletal - general: Musculoskeletal - general: OA changes, normal tone, no swelling, Moves all 4 exts AG, calves NT, no cords, Homans neg Neuro/PRESS CLIPPER: alert, oriented X 3, CNII-XII intact, normal [...] % (Auto) (14.0 - 32.0 %) 14.4 [place] % (Auto) (4.8 - 9.0 %) 12.6 Eos % (Auto) (0.3 - 3.7 %) 6.9 Baso % (Auto) (0.0 - 2.0 %) 0.7 Neut # (Auto) (2.0 - 7.6 x10 3/uL) 5.59 Lymph # (Auto) (1.0 - 3.8 x10 3/uL) 1.25 [place] # (Auto) (0.1 - 0.8 x10 3/uL) [...] with interdisciplinary treatment plan. at 1154 RPT #:[id number] END OF REPORT [facility] 2022-08-17 15:29:00 [facility] ([facility]) Cardiothoracic Surgery Prog REPORT#:[id number] REPORT STATUS: Signed DATE:08/17/22 TIME: 152 PATIENT: BRENNAN AHN UNIT #: [id number] ROOM/BED: [place] [address] : 42 AGE: 82 SEX: M ATTEND: [...] SVT ablation 20 years ago transferred to [facility] with new findings of multi-vessel CAD. He reports he was woken from Sleep on Sunday AM with COmplaints of chest pains. EMS aas called and patient was taken to [facility]. He underwent LHC and found to have multi-vessel CAD by Dr Sanchez. Patient was transferred to LTAC[facility] located [facility] for CABG. Patient lives independently. Daughter is at bedside. Patient reports last dose of Elliquis was Sunday AM. Echo was done at [facility] showing EF 55%, Mild MR, Mild [...] points, SR and sinus arrythmnia noted on site monitor, V epicardial wires on backup rate of [...] plan reviewed with Dr Piper, Dr Kirkpatrick, [facility] and multidisciplinary team 08/13 Intermittently confused. [...] seen and plan reviewed with Dr Kirkpatrick, [facility] multidisciplinary team Family updated at the [...] cardiovascular surgery, hospitalist, nephrology at 1534 RPT #:[id number] END OF REPORT [facility] 2022-08-17 15:00:00 [facility] ([facility]) Nephrology Consultation Note REPORT#:[id number] REPORT STATUS: Signed DATE:08/17/22 TIME: 1500 PATIENT: BRENNAN AHN UNIT #: [id number] ROOM/BED: [place] [address] : 42 AGE: 82 SEX: M ATTEND: [...] issues in the past and seeing a accordion repairer at [place] but his kidney function had been stable [...] or older: Former Smoker Allergies: Coded Allergies: Lfgnyxo-PZK-ChF Reductase Inhibitor (Severe, UNKNOWN 08/16/22) Review of [...] 08/19 2123 96 Room air 21 08/18 1953 36.6 83 16 165/80 108.0 95 Room [...] develops orthostasis so medication doses minimised. at [facility] #:[id number] END OF REPORT [facility] 2022-08-17 15:00:00 [facility]) Internal Medicine Prog. Note REPORT#:[id number] REPORT STATUS: Signed DATE:08/17/22 TIME: 1500 PATIENT: BRENNAN AHN UNIT #: [id number] ROOM/BED: [place] [address] : 42 AGE: 82 SEX: M ATTEND: [...] Sodium (COLACE) 100 MG BID PO Ipratropium Baker (ATROVENT) 500 MCG RTQ6H INH Metoprolol Tartrate (LOPRESSOR) 25 MG Q12HR PO Sennosides (Senna Lax 8.6 MG TABLET) 17.2 MG BEDTIME PO Amiodarone HCl (CORDARONE) 200 MG TID PO Hydralazine HCl (APRESOLINE) 10 MG Q6H PRN PRN IV Acetaminophen (TYLENOL) 650 MG Q4H PRN PRN PO Ipratropium Baker (ATROVENT) 500 MCG RTQ2H PRN PRN INH Melatonin (Melatonin) 6 MG BEDTIME PRN PO Ondansetron HCl (ZOFRAN ODT) 4 MG TID PRN PRN SL Physical Exam General appearance: alert, awake, oriented Head/Eyes: EOMI, PERRLA Neck: non-tender, no JVD Cardiovascular: normal heart sounds, regular rate rhythm Respiratory: aerating well, clear to auscultation Abdomen: non-tender, normal bowel sounds Extremities: Extremities: no cyanosis, no edema Neuro/PRESS CLIPPER: alert, oriented x 3, CNII-XII intact Results [...] % (Auto) (14.0 - 32.0 %) 14.4 [place] % (Auto) (4.8 - 9.0 %) 12.6 H Eos % (Auto) (0.3 - 3.7 %) 6.9 H Baso % (Auto) (0.0 - 2.0 %) 0.7 Neut # (Auto) (2.0 - 7.6 x10 3/uL) 5.59 Lymph # (Auto) (1.0 - 3.8 x10 3/uL) 1.25 [place] # (Auto) (0.1 - 0.8 x10 3/uL) [...] found on a cardiac catheterization done at [facility]. Patient was transferred to [facility] for CABG. He underwent [id number]. 1. Coronary artery disease -Status post CABG [...] Discussion included: code status at 2157 RPT #:[id number] END OF REPORT [facility] 2022-08-17 11:52:00 [facility] Rehab Indiv Overall POC REPORT#:[id number] REPORT STATUS: Signed DATE:08/17/22 TIME: 1152 PATIENT: BRENNAN AHN UNIT #: [id number] ROOM/BED: [place] [address] : 42 AGE: 82 SEX: M ATTEND: [...] Setup/clean-up only (5) object discharge goal: CARE [place] 50 feet Independent (6) with two turns discharge goal: CARE [place] 150 Independent (6) feet discharge goal: CARE [...] OR UP TO BATHROOM FOR VOIDING. _ DEISYOS Attestation: Based upon the review of clinical [...] pain management, VTE Risk at 1220 RPT #:[id number] END OF REPORT [facility] 2022-08-17 10:14:00 [facility] ([facility]) Cardiology Consultation REPORT#:[id number] REPORT STATUS: Signed DATE:08/17/22 TIME: 1014 PATIENT: BRENNAN AHN UNIT #: [id number] ROOM/BED: [place] [address] : 42 AGE: 82 SEX: M ATTEND: Arthur Fuentes MD ADM AUTHOR: Catrina Shetty AGACNAmbreen * ALL edits [...] and ALAA. The patient is transferred to [facility] for inpatient rehabilitation. We are consulted [...] or older: Former Smoker Allergies: Coded Allergies: Jvyrqqk-DDM-SfE Reductase Inhibitor (Severe, UNKNOWN 08/16/22) Review of [...] Sodium (COLACE) 100 MG BID PO Ipratropium Baker (ATROVENT) 500 MCG RTQ6H INH Metoprolol Tartrate (LOPRESSOR) 25 MG Q12HR PO Sennosides (Senna Lax 8.6 MG TABLET) 17.2 MG BEDTIME PO Amiodarone HCl (CORDARONE) 200 MG TID PO Hydralazine HCl (APRESOLINE) 10 MG Q6H PRN PRN IV Acetaminophen (TYLENOL) 650 MG Q4H PRN PRN PO Ipratropium Baker (ATROVENT) 500 MCG RTQ2H PRN PRN INH [...] extremity: LE assessment: edema Musculoskeletal: normal inspection Neuro/PRESS CLIPPER: alert Skin: dry Psychiatry: normal affect, normal [...] % (Auto) (14.0 - 32.0 %) 14.4 [place] % (Auto) (4.8 - 9.0 %) 12.6 H Eos % (Auto) (0.3 - 3.7 %) 6.9 H Baso % (Auto) (0.0 - 2.0 %) 0.7 Neut # (Auto) (2.0 - 7.6 x10 3/uL) 5.59 Lymph # (Auto) (1.0 - 3.8 x10 3/uL) 1.25 [place] # (Auto) (0.1 - 0.8 x10 3/uL) [...] and ALAA. The patient is transferred to [facility] for inpatient rehabilitation. We are consulted [...] nephrology following at 1331 at 1808 RPT #:[id number] END OF REPORT [facility] 2022-08-17 08:15:00 [facility]) Rehab History Physical REPORT#:[id number] REPORT STATUS: Signed DATE:08/17/22 TIME: 08 PATIENT: BRENNAN AHN UNIT #: [id number] ROOM/BED: [place] [address] : 42 AGE: 82 SEX: M ATTEND: Arthur Fuentes MD ADM AUTHOR: Arthur Fuentes MD * ALL edits or amendments must be made on the electronic/computer document * HPI HPI Chief complaint: Generalized weakness Referring physician: DR. DEE HPI: 82-year-old male with PMH of Alzheimer's dementia, CKD, HTN, atrial fibrillation , history of SVT/ablation who was transferred to [facility] after being found to have multivessel coronary artery disease. Patient initially with was at home and developed chest pains. He was brought to [facility] and underwent left heart cath which revealed [...] Ectatic, nonaneurysmal aortic root (37 mm) with lwjl-ls-[id number] calcification. 2. Remaining thoracoabdominal aorta is normal [...] or older: Former Smoker Allergies: Coded Allergies: Jzdrkay-TUO-JqJ Reductase Inhibitor (Severe, UNKNOWN 08/16/22) ROS ROS [...] AG, calves NT, no cords, Homans neg Neuro/PRESS CLIPPER: alert, oriented X 3, CNII-XII intact, normal [...] % (Auto) (14.0 - 32.0 %) 14.4 [place] % (Auto) (4.8 - 9.0 %) 12.6 H Eos % (Auto) (0.3 - 3.7 %) 6.9 H Baso % (Auto) (0.0 - 2.0 %) 0.7 Neut # (Auto) (2.0 - 7.6 x10 3/uL) 5.59 Lymph # (Auto) (1.0 - 3.8 x10 3/uL) 1.25 [place] # (Auto) (0.1 - 0.8 x10 3/uL) [...] Procedure Date/time Status NEB TREATMENT SUBSQ 08/17 5356 Active NEB TREATMENT SUBSQ 08/16 3015 Complete NEB TREATMENT SUBSQ 08/16 8351 Active Consultants: cardiology, cardiovascular surgery, hospitalist, nephrology [...] pain management, VTE Risk at 1152 RPT #:[id number] END OF REPORT [facility] 2022-08-16 18:47:00 [facility] ([facility]) Rehab Progress Note REPORT#:[id number] REPORT STATUS: Signed DATE:08/16/22 TIME: 1846 PATIENT: BRENNAN AHN UNIT #: [id number] ROOM/BED: [place] [address] : 42 AGE: 82 SEX: M ATTEND: Salazar Dee MD ADM AUTHOR: Lavinia Jimenez NP * ALL edits or amendments must be made on the electronic/computer document * Subjective Chief complaint: Rehab hjrxvr-fc-Za seen around 8am OOB in chair Seen [...] / 1400 72 29 143/63 91 98 /15 1300 71 27 133/69 91 95 / 1201 75 33 140/58 83 88 03/ 1129 97 Room air 21 08/16 1114 70 22 133/61 88 98 03/15 1000 73 29 134/58 84 95 /15 0901 79 27 132/61 88 94 /15 0800 97.8 80 23 161/75 108 95 /15 0754 100 Room air 21 08/16 0701 73 23 172/77 111 99 /15 0601 73 33 154/69 99 98 /15 0502 68 28 164/70 100 99 /15 0405 95 Room air / 0400 66 16 140/68 98 97 / 0300 66 19 149/76 102 99 /15 0201 67 26 132/64 88 99 /15 0101 65 14 105/55 77 96 03/ 0000 71 13 168/72 104 97 08/15 2300 75 23 152/74 106 96 / 2200 77 21 159/79 104 98 / 2140 88 26 169/76 109 96 08/15 [...] (LOPRESSOR) 25 MG Q12HR PO (DCD) Ipratropium Baker (ATROVENT) 500 MCG RTQ6H INH (DCD) Ipratropium Baker (ATROVENT) 500 MCG Q2H PRN PRN INH [...] decereased shoulder AROM due to sternal precautions Neuro/PRESS CLIPPER: alert, CNII-XII intact, normal speech, no sensory [...] % (Auto) (14.0 - 32.0 %) 17.2 [place] % (Auto) (4.8 - 9.0 %) 11.1 H Eos % (Auto) (0.3 - 3.7 %) 5.2 H Baso % (Auto) (0.0 - 2.0 %) 0.6 Neut # (Auto) (2.0 - 7.6 x10 3/uL) 5.80 Lymph # (Auto) (1.0 - 3.8 x10 3/uL) 1.53 [place] # (Auto) (0.1 - 0.8 x10 3/uL) [...] plan discussed with patient. at 1849 RPT #:[id number] END OF REPORT [facility] 2022-08-16 17:15:00 [id number] [place] [address] PATIENT NAME: BRENNAN AHN ADMIT DATE: 08/09/22 ACCOUNT NO: [id number] ROOM NO: G.2202 AGE: 82 REPORT TYPE: eECHOCARDIOGRAM REPORT SEX: M ADMITTING PHYSICIAN:Salazar Dee MD ATTENDING PHYSICIAN:Salazar Dee MD *[place] [address] Transthoracic Echocardiogram Patient: Brennan Ahn Study Date: 08/16/2022 BP: 118 / 77 Location: [facility] URN: [id number] : 1940 Age: 82 Height: 71 in / 180.3 cm Gender: M Weight: 221.3 lb / 100.6 kg BMI/BSA: 30.9 kg/m 2 / 2.27 m 2 *Ordering Physician: * Pamela Burnette *Interpreting Physician: * Freddy Celis MD *Fruit Rancher: * Jane Byrd Indications: Rule out pericardial [...] 17:14 at 1715 PATIENT NAME: BRENNAN AHN [facility] 2022-08-16 16:49:00 [facility]) Discharge Summary REPORT#:[id number] REPORT STATUS: Signed DATE:08/16/22 TIME: 1648 PATIENT: BRENNAN AHN UNIT #: [id number] ROOM/BED: [place] [address] : 42 AGE: 82 SEX: M ATTEND: [...] found on a cardiac catheterization done at [facility]. Patient was transferred to [facility] for CABG. 1. Coronary artery disease -Status [...] non-tender Extremities: moves all, no edema-all extremities Neuro/PRESS CLIPPER: alert, oriented X 3, NL cerebellar function [...] % (Auto) (14.0 - 32.0 %) 17.2 [place] % (Auto) (4.8 - 9.0 %) 11.1 H Eos % (Auto) (0.3 - 3.7 %) 5.2 H Baso % (Auto) (0.0 - 2.0 %) 0.6 Neut # (Auto) (2.0 - 7.6 x10 3/uL) 5.80 Lymph # (Auto) (1.0 - 3.8 x10 3/uL) 1.53 [place] # (Auto) (0.1 - 0.8 x10 3/uL) [...] RADIOLOGY - XR CHEST 1 V 08/16 1755 Report Impression - Status: SIGNED Entered: 08/16/2022 [...] Discharge Instructions Additional Discharge Routines: PCP Follow-Up, Vision Teacher Follow-Up )( Diet: Cardiac )( Activity: As [...] timeframe: In 3-4 weeks at 2157 RPT #:[id number] END OF REPORT [facility] 2022-08-16 11:36:00 [facility] Nephrology Progress Note REPORT#:[id number] REPORT STATUS: Signed DATE:08/16/22 TIME: 1136 PATIENT: BRENNAN AHN UNIT #: [id number] ROOM/BED: [place] [address] : 42 AGE: 82 SEX: M ATTEND: [...] issues in the past and seeing a accordion repairer at [place] but his kidney function had been stable [...] 2016 94 Room air 08/16 1999 36.6 08/16 1999 80 20 128/74 95 95 14 1901 [...] issues in the past and seeing a accordion repairer at [place] but his kidney function had been stable [...] Consultants: cardiology, cardiovascular surgery at 1145 RPT #:[id number] END OF REPORT [facility] 2022-08-16 10:42:00 [facility] ([facility]) Cardiology Progress Note REPORT#:[id number] REPORT STATUS: Signed DATE:08/16/22 TIME: 1041 PATIENT: BRENNAN AHN UNIT #: [id number] ROOM/BED: [place] [address] : 42 AGE: 82 SEX: M ATTEND: [...] 08/16 0502 68 28 164/70 100 99 15 0405 95 Room air 08/16 0400 66 16 140/68 98 97 /15 0300 66 19 149/76 102 99 /15 0201 67 26 132/64 88 99 03/15 0101 65 14 105/55 77 96 /15 0000 71 13 168/72 104 97 03/14 2300 75 23 152/74 106 96 14 2200 77 21 159/79 104 98 /14 2140 88 26 169/76 109 96 14 2100 78 18 98 08/15 2016 83 94 08/15 2016 94 Room air 08/15 2000 36.6 03/14 2000 80 20 128/74 95 95 /14 1901 80 33 119/91 98 91 03/14 [...] Tartrate (LOPRESSOR) 25 MG Q12HR PO Ipratropium Baker (ATROVENT) 500 MCG RTQ6H INH Ipratropium Baker (ATROVENT) 500 MCG Q2H PRN PRN INH [...] capillary refill, normal temperature Musculoskeletal: normal inspection Neuro/PRESS CLIPPER: alert, oriented X 3 Skin: poor skin [...] % (Auto) (14.0 - 32.0 %) 17.2 [place] % (Auto) (4.8 - 9.0 %) 11.1 H Eos % (Auto) (0.3 - 3.7 %) 5.2 H Baso % (Auto) (0.0 - 2.0 %) 0.6 Neut # (Auto) (2.0 - 7.6 x10 3/uL) 5.80 Lymph # (Auto) (1.0 - 3.8 x10 3/uL) 1.53 [place] # (Auto) (0.1 - 0.8 x10 3/uL) [...] pleural effusions. Impression By: [email or web address] - Alfreda Josehp M.D. RADIOLOGY - XR CHEST 1 V [...] For rehab at 1012 at 1807 RPT #:[id number] END OF REPORT [facility] 2022-08-16 09:06:00 [facility] ([facility]) Rehab Preadmission Screen REPORT#: REPORT STATUS: DATE:08/16/22 [...] MEDICAL [facility]. [facility] DR[facility] NANCE ( [place]) Referral contact name: ANDREA AL Referral contact number: [phone] Referring setting: Acute hospital Room number: 2202 [...] history of SVT/ablation who was transferred to [facility] after being found to have multivessel coronary artery disease. Patient initially with was at home and developed chest pains. He was brought to [facility] and underwent left heart cath which revealed [...] Ectatic, nonaneurysmal aortic root (37 mm) with ixdy-rg-vmuiseka calcification. 2. Remaining thoracoabdominal aorta is normal [...] DUSKY Wound exudate amount/type: None Dressing/reinforcement type: SOLDERER FURNACE Document advanced wound measurements: No --- - - Procedural site Anterior Chest midline - - Instance list status: Active Skin alteration details: DRESSING CDI Greybull/sutures: Skin adhesive Dressing/reinforcement type: Fiber/silver Document advanced wound measurements: No - - Procedural site Anterior Leg right - - Instance list status: Active Wound surrounding tissue appearance: Edges approximated Wound exudate amount/type: None Greybull/sutures: Skin adhesive Dressing/reinforcement type: SOLDERER FURNACE Document advanced wound measurements: No <End> Document [...] asst Independent Locomotion prior device use: SP cane Description of prior level of locomotion: HAS [...] SCOOTING MIN A Prior device use: SP cane Prior device use additional information: HAS WALKER BUT DID NOT USE PRE-HOSPITAL: Pre-hospital services utilized: None Occupation/Profession: Retired Education history: Return to work/school plan: Marital status: Hobbies/leisure activities: Prior living situation: Home Living with: Alone Living with comment: ALONE ANTICIPATED DC PLAN/POST IRF: Primary support contact: [facility] Relationship to patient: SON Phone number 1: [phone] Phone number 2: Caregiver availability: Caregiver can [...] in acute inpatient rehab: Rehab nursing 25/12, 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, 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 worker, Occupational therapy, Physical therapy, Dietitian, Respiratory [...] assessment documentation and consultation with the preadmission spring coiler, I have determined, prior to admitting this [...] pain management, VTE Risk Acute hospital stay: [facility] care w/Acute , IRF consult on Acute care at 0914 RPT #:[id number] END OF REPORT [facility] 2022-08-16 08:46:00 [facility] Cardiothoracic Surgery Prog REPORT#:[id number] REPORT STATUS: Signed DATE:08/16/22 TIME: 08 PATIENT: BRENNAN AHN UNIT #: [id number] ROOM/BED: G2202-1 : 42 AGE: 82 SEX: M ATTEND: [...] moves all Musculoskeletal: full range of motion Neuro/PRESS CLIPPER: alert, oriented X 3 Skin: dry, intact Psychiatry: anxious Treatment Prophylaxis Treatment Prophylaxis Oxygen: nasal cannula Lines: arterial, CVC, peripheral Drain(s)/tube(s): Drain(s)/tube(s): chest, urinary catheter Diagnosis, Assessment Plan Hospital course to date: 82 year old with PMH of hypertension, atrial fibrillation, On Eliquis, Hx of SVT ablation 20 years ago transferred to [facility] with new findings of multi-vessel CAD. He reports he was woken from Sleep on Sunday AM with COmplaints of chest pains. EMS aas called and patient was taken to [facility]. He underwent LHC and found to have multi-vessel CAD by Dr Sanchez. Patient was transferred to LTAC[facility] for CABG. Patient lives independently. Daughter is at bedside. Patient reports last dose of Elliquis was Sunday AM. Echo was done at [facility] showing EF 55%, Mild MR, Mild [...] points, SR and sinus arrythmnia noted on site monitor, V epicardial wires on backup rate of [...] Consultants: cardiology, cardiovascular surgery at 1452 RPT #:[id number] END OF REPORT [facility] 2022-08-15 15:43:00 [facility] ([facility]) Internal Medicine Prog. Note REPORT#:[id number] REPORT STATUS: Signed DATE:08/15/22 TIME: 154 PATIENT: BRENNAN AHN UNIT #: [id number] ROOM/BED: [place] [address] : 42 AGE: 82 SEX: M ATTEND: [...] Tartrate (LOPRESSOR) 25 MG Q12HR PO Ipratropium Baker (ATROVENT) 500 MCG RTQ6H INH Ipratropium Baker (ATROVENT) 500 MCG Q2H PRN PRN INH [...] non-tender, soft Extremities: Extremities: edema, moves all Neuro/PRESS CLIPPER: alert, oriented x 3, CNII-XII intact Skin: [...] (Auto) (14.0 - 32.0 %) 13.1 L [place] % (Auto) (4.8 - 9.0 %) 11.7 H Eos % (Auto) (0.3 - 3.7 %) 2.4 Baso % (Auto) (0.0 - 2.0 %) 0.5 Neut # (Auto) (2.0 - 7.6 x10 3/uL) 7.61 H Lymph # (Auto) (1.0 - 3.8 x10 3/uL) 1.39 [place] # (Auto) (0.1 - 0.8 x10 3/uL) [...] found on a cardiac catheterization done at [facility]. Patient was transferred to [facility] for CABG. 1. Coronary artery disease -Status [...] Consultants: cardiology, cardiovascular surgery at 2157 RPT #:[id number] END OF REPORT [facility] 2022-08-15 15:41:00 [facility] Internal Medicine Prog. Note REPORT#:[id number] REPORT STATUS: Signed DATE:08/15/22 TIME: 1541 PATIENT: BRENNAN AHN UNIT #: [id number] ROOM/BED: [place] [address] : 42 AGE: 82 SEX: M ATTEND: [...] Tartrate (LOPRESSOR) 25 MG Q12HR PO Ipratropium Baker (ATROVENT) 500 MCG RTQ6H INH Ipratropium Baker (ATROVENT) 500 MCG Q2H PRN PRN INH [...] non-tender, soft Extremities: Extremities: edema, moves all Neuro/PRESS CLIPPER: alert, oriented x 3, CNII-XII intact Skin: [...] (Auto) (14.0 - 32.0 %) 13.1 L [place] % (Auto) (4.8 - 9.0 %) 11.7 H Eos % (Auto) (0.3 - 3.7 %) 2.4 Baso % (Auto) (0.0 - 2.0 %) 0.5 Neut # (Auto) (2.0 - 7.6 x10 3/uL) 7.61 H Lymph # (Auto) (1.0 - 3.8 x10 3/uL) 1.39 [place] # (Auto) (0.1 - 0.8 x10 3/uL) [...] found on a cardiac catheterization done at [facility]. Patient was transferred to [facility] for CABG. 1. Coronary artery disease -Status [...] Consultants: cardiology, cardiovascular surgery at 2157 RPT #:[id number] END OF REPORT [facility] 2022-08-15 15:00:00 [facility] ([facility]) Critical Care Progress Note REPORT#:[id number] REPORT STATUS: Signed DATE:08/15/22 TIME: 1500 PATIENT: BRENNAN AHN UNIT #: [id number] ROOM/BED: [place] [address] : 42 AGE: 82 SEX: M ATTEND: [...] Tartrate (LOPRESSOR) 25 MG Q12HR PO Ipratropium Baker (ATROVENT) 500 MCG RTQ6H INH Ipratropium Baker (ATROVENT) 500 MCG Q2H PRN PRN INH [...] (Auto) (14.0 - 32.0 %) 13.1 L [place] % (Auto) (4.8 - 9.0 %) 11.7 H Eos % (Auto) (0.3 - 3.7 %) 2.4 Baso % (Auto) (0.0 - 2.0 %) 0.5 Neut # (Auto) (2.0 - 7.6 x10 3/uL) 7.61 H Lymph # (Auto) (1.0 - 3.8 x10 3/uL) 1.39 [place] # (Auto) (0.1 - 0.8 x10 3/uL) [...] Consultants: cardiology, cardiovascular surgery at 1540 RPT #:[id number] END OF REPORT [facility] 2022-08-15 10:42:00 [facility] ([facility] Nephrology Progress Note REPORT#:[id number] REPORT STATUS: Signed DATE:08/15/22 TIME: 1042 PATIENT: BRENNAN AHN UNIT #: [id number] ROOM/BED: [place] [address] : 42 AGE: 82 SEX: M ATTEND: [...] issues in the past and seeing a accordion repairer at [place] but his kidney function had been stable [...] issues in the past and seeing a accordion repairer at [place] but his kidney function had been stable [...] only if his SBP goes above 160. 312 1. Acute kidney injury: Most likely prerenal [...] Consultants: cardiology, cardiovascular surgery at 1048 RPT #:[id number] END OF REPORT [facility] 2022-08-15 10:26:00 [facility] ([facility]) Cardiothoracic Surgery Prog REPORT#:[id number] REPORT STATUS: Signed DATE:08/15/22 TIME: 1026 PATIENT: BRENNAN AHN UNIT #: [id number] ROOM/BED: [place] [address] : 42 AGE: 82 SEX: M ATTEND: [...] moves all Musculoskeletal: full range of motion Neuro/PRESS CLIPPER: alert, oriented X 3 Skin: dry, intact Current Medications Medications: Active Meds + DC'd Last 24 Hrs Amiodarone HCl (NEXTERONE 150MG/D5W 100ML) 100 ML STAT STA IV (DC) Aspirin (ASPIRIN) 81 MG DAILY PO Budesonide (PULMICORT RESPULES) 0.5 MG RTBID INH Formoterol Fumarate (PERFOROMIST) 20 MCG RTBID NEB Metoprolol Tartrate (LOPRESSOR) 25 MG Q12HR PO Ipratropium Baker (ATROVENT) 500 MCG RTQ6H INH Ipratropium Baker (ATROVENT) 500 MCG Q2H PRN PRN INH [...] (Auto) (14.0 - 32.0 %) 13.1 L [place] % (Auto) (4.8 - 9.0 %) 11.7 H Eos % (Auto) (0.3 - 3.7 %) 2.4 Baso % (Auto) (0.0 - 2.0 %) 0.5 Neut # (Auto) (2.0 - 7.6 x10 3/uL) 7.61 H Lymph # (Auto) (1.0 - 3.8 x10 3/uL) 1.39 [place] # (Auto) (0.1 - 0.8 x10 3/uL) [...] Report Impression - Status: SIGNED Entered: 08/15/2022 3161 IMPRESSION: Cardiomegaly with minimal central venous congestion. Impression By: [email or web address] - Jaylyn Ledesma D.O. Diagnosis, Assessment Plan Hospital course to date: 82 year old with PMH of hypertension, atrial fibrillation, On Eliquis, Hx of SVT ablation 20 years ago transferred to [facility] with new findings of multi-vessel CAD. He reports he was woken from Sleep on Sunday AM with COmplaints of chest pains. EMS aas called and patient was taken to [facility]. He underwent LHC and found to have multi-vessel CAD by Dr Sanchez. Patient was transferred to LT[facility] for CABG. Patient lives independently. Daughter is at bedside. Patient reports last dose of Elliquis was Sunday AM. Echo was done at [facility] showing EF 55%, Mild MR, Mild [...] points, SR and sinus arrythmnia noted on site monitor, V epicardial wires on backup rate of [...] plan reviewed with Dr Piper, Dr Kirkpatrick, [facility] and multidisciplinary team 08/13 Intermittently confused. [...] seen and plan reviewed with Dr Kirkpatrick, [facility] multidisciplinary team Family updated at the [...] cardiovascular surgery at 1036 at 1027 RPT #:[id number] END OF REPORT [facility] 2022-08-15 09:42:00 [facility] Cardiology Progress Note REPORT#:[id number] REPORT STATUS: Signed DATE:08/15/22 TIME: 941 PATIENT: BRENNAN AHN UNIT #: [id number] ROOM/BED: [place] [address] : 42 AGE: 82 SEX: M ATTEND: [...] 100 08/15 0339 96 Room air 21 03/14 0300 75 19 126/64 89 98 08/15 [...] Tartrate (LOPRESSOR) 25 MG Q12HR PO Ipratropium Baker (ATROVENT) 500 MCG RTQ6H INH Ipratropium Baker (ATROVENT) 500 MCG Q2H PRN PRN INH [...] capillary refill, normal temperature Musculoskeletal: normal inspection Neuro/PRESS CLIPPER: alert, oriented X 3 Skin: poor skin [...] (Auto) (14.0 - 32.0 %) 13.1 L [place] % (Auto) (4.8 - 9.0 %) 11.7 H Eos % (Auto) (0.3 - 3.7 %) 2.4 Baso % (Auto) (0.0 - 2.0 %) 0.5 Neut # (Auto) (2.0 - 7.6 x10 3/uL) 7.61 H Lymph # (Auto) (1.0 - 3.8 x10 3/uL) 1.39 [place] # (Auto) (0.1 - 0.8 x10 3/uL) [...] good post-op at 1249 at 1810 RPT #:[id number] END OF REPORT [facility] 2022-08-15 08:44:00 [facility] ([facility]) Rehab Progress Note REPORT#:[id number] REPORT STATUS: Signed DATE:08/15/22 TIME: 843 PATIENT: BRENNAN AHN UNIT #: [id number] ROOM/BED: [place] [address] : 42 AGE: 82 SEX: M ATTEND: [...] Tartrate (LOPRESSOR) 25 MG Q12HR PO Ipratropium Baker (ATROVENT) 500 MCG RTQ6H INH Ipratropium Baker (ATROVENT) 500 MCG Q2H PRN PRN INH [...] decereased shoulder AROM due to sternal precautions Neuro/PRESS CLIPPER: alert, CNII-XII intact, normal speech, no sensory [...] (Auto) (14.0 - 32.0 %) 13.1 L [place] % (Auto) (4.8 - 9.0 %) 11.7 H Eos % (Auto) (0.3 - 3.7 %) 2.4 Baso % (Auto) (0.0 - 2.0 %) 0.5 Neut # (Auto) (2.0 - 7.6 x10 3/uL) 7.61 H Lymph # (Auto) (1.0 - 3.8 x10 3/uL) 1.39 [place] # (Auto) (0.1 - 0.8 x10 3/uL) [...] plan discussed with patient. at 0908 RPT #:[id number] END OF REPORT [facility] 2022-08-14 14:34:00 [facility] ([facility]) Critical Care Progress Note REPORT#:[id number] REPORT STATUS: Signed DATE:08/14/22 TIME: 1434 PATIENT: BRENNAN AHN UNIT #: [id number] ROOM/BED: [place] [address] : 42 AGE: 82 SEX: M ATTEND: [...] 250 ML ONCE ONE IV (DC) Ipratropium Baker (ATROVENT) 500 MCG RTQ6H INH Ipratropium Baker (ATROVENT) 500 MCG Q2H PRN PRN INH [...] PRN PRN IV Results Findings/data: Laboratory Tests 08/14 Chemistry Sodium (134 - 147 mEq/L) 137 [...] (Auto) (14.0 - 32.0 %) 11.1 L [place] % (Auto) (4.8 - 9.0 %) 9.7 H Eos % (Auto) (0.3 - 3.7 %) 1.6 Baso % (Auto) (0.0 - 2.0 %) 0.3 Neut # (Auto) (2.0 - 7.6 x10 3/uL) 7.22 Lymph # (Auto) (1.0 - 3.8 x10 3/uL) 1.04 [place] # (Auto) (0.1 - 0.8 x10 3/uL) [...] Consultants: cardiology, cardiovascular surgery at 1541 RPT #:[id number] END OF REPORT [facility] 2022-08-14 13:50:00 [facility] Nephrology Progress Note REPORT#:[id number] REPORT STATUS: Signed DATE:08/14/22 TIME: 1350 PATIENT: BRENNAN AHN UNIT #: [id number] ROOM/BED: [place] [address] : 42 AGE: 82 SEX: M ATTEND: [...] issues in the past and seeing a accordion repairer at [place] but his kidney function had been stable [...] 122/69 90 03 1100 67 31 98 03 1000 68 27 113/58 80 97 08/14 [...] issues in the past and seeing a accordion repairer at [place] but his kidney function had been stable [...] Consultants: cardiology, cardiovascular surgery at 1355 RPT #:[id number] END OF REPORT [facility] 2022-08-14 13:45:00 [facility] ([facility] Nephrology Progress Note REPORT#:[id number] REPORT STATUS: Signed DATE:08/14/22 TIME: 1345 PATIENT: BRENNAN AHN UNIT #: [id number] ROOM/BED: [place] [address] : 42 AGE: 82 SEX: M ATTEND: [...] issues in the past and seeing a accordion repairer at [place] but his kidney function had been stable [...] 23 99 08/14 0115 84 30 91 / 0100 70 14 152/72 103 100 08/14 0045 69 16 100 08/14 0015 68 16 97 08/13 2355 68 16 35 03/12 2355 100 BiPAP 35 08/13 2345 70 [...] urinary catheter Diagnosis, Assessment Plan Free Text Facundo P: 82-year-old male known to have hypertension, atrial fibrillation, supraventricular tachycardia with requiring ablation presenting with multivessel cardiovascular disease and he underwent CABG 07/13/2022. He was extubated postoperatively and his blood pressures were stable when he was seen. He endorsed having kidney issues in the past and seeing a accordion repairer at [place] but his kidney function had been stable [...] Consultants: cardiology, cardiovascular surgery at 1350 RPT #:[id number] END OF REPORT [facility] 2022-08-14 11:04:00 [facility] ([facility]) Cardiothoracic Surgery Prog REPORT#:[id number] REPORT STATUS: Signed DATE:08/14/22 TIME: 1104 PATIENT: BRENNAN AHN UNIT #: [id number] ROOM/BED: [place] [address] : 42 AGE: 82 SEX: M ATTEND: [...] moves all Musculoskeletal: full range of motion Neuro/PRESS CLIPPER: alert, oriented X 3 Skin: dry, intact Current Medications Medications: Active Meds + DC'd Last 24 Hrs Aspirin (ASPIRIN) 81 MG DAILY PO Budesonide (PULMICORT RESPULES) 0.5 MG RTBID INH Formoterol Fumarate (PERFOROMIST) 20 MCG RTBID NEB Metoprolol Tartrate (LOPRESSOR) 25 MG Q12HR PO Albumin Human (ALBUMINAR 5% 12.5GM/250ML) 250 ML ONCE ONE IV (DC) Ipratropium Baker (ATROVENT) 500 MCG RTQ6H INH Ipratropium Baker (ATROVENT) 500 MCG Q2H PRN PRN INH [...] (Auto) (14.0 - 32.0 %) 11.1 L [place] % (Auto) (4.8 - 9.0 %) 9.7 H Eos % (Auto) (0.3 - 3.7 %) 1.6 Baso % (Auto) (0.0 - 2.0 %) 0.3 Neut # (Auto) (2.0 - 7.6 x10 3/uL) 7.22 Lymph # (Auto) (1.0 - 3.8 x10 3/uL) 1.04 [place] # (Auto) (0.1 - 0.8 x10 3/uL) [...] SVT ablation 20 years ago transferred to [facility] with new findings of multi-vessel CAD. He reports he was woken from Sleep on Sunday AM with COmplaints of chest pains. EMS aas called and patient was taken to [facility]. He underwent LHC and found to have multi-vessel CAD by Dr Sanchez. Patient was transferred to LTAC[facility] located [facility] for CABG. Patient lives independently. Daughter is at bedside. Patient reports last dose of Elliquis was Sunday AM. Echo was done at [facility] showing EF 55%, Mild MR, Mild [...] points, SR and sinus arrythmnia noted on site monitor, V epicardial wires on backup rate of [...] plan reviewed with Dr Piper, Dr Kirkpatrick, [facility] and multidisciplinary team 08/13 Intermittently confused. [...] cardiovascular surgery at 1503 at 1026 RPT #:[id number] END OF REPORT [facility] 2022-08-14 10:00:00 [facility] ([facility]) Cardiology Progress Note REPORT#:[id number] REPORT STATUS: Signed DATE:08/14/22 TIME: 999 PATIENT: BRENNAN AHN UNIT #: [id number] ROOM/BED: [place] [address] : 42 AGE: 82 SEX: M ATTEND: [...] 100 03/12 2115 99 Nasal 2 cannula 08/14 2055 82 28 156/74 106 98 03/12 2030 80 22 141/67 96 100 /2014 80 26 151/73 105 99 03/12 1999 36.5 03/12 1999 Nasal 2 cannula 08/14 1999 94 [...] 250 ML ONCE ONE IV (DC) Ipratropium Baker (ATROVENT) 500 MCG RTQ6H INH Ipratropium Baker (ATROVENT) 500 MCG Q2H PRN PRN INH Cyanocobalamin (Vitamin B-12 500 mcg tab) 500 MCG DAILY PO Ferrous Sulfate (FERROUS SULFATE) 325 MG DAILY PO Sodium Chloride (SODIUM CHLORIDE 0.9%) 250 ML ONCE ONE IV Bisacodyl (DULCOLAX) 10 MG ONCE PRN RECTAL Ipratropium Baker (ATROVENT) 500 MCG RTQ4H INH (DC) Dopamine [...] capillary refill, normal temperature Musculoskeletal: normal inspection Neuro/PRESS CLIPPER: alert, oriented X 3 Skin: poor skin [...] (Auto) (14.0 - 32.0 %) 11.1 L [place] % (Auto) (4.8 - 9.0 %) 9.7 H Eos % (Auto) (0.3 - 3.7 %) 1.6 Baso % (Auto) (0.0 - 2.0 %) 0.3 Neut # (Auto) (2.0 - 7.6 x10 3/uL) 7.22 Lymph # (Auto) (1.0 - 3.8 x10 3/uL) 1.04 [place] # (Auto) (0.1 - 0.8 x10 3/uL) [...] good post-op at 1358 at 1402 RPT #:[id number] END OF REPORT [facility] 2022-08-14 07:23:00 [facility] ([facility] Rehab Progress Note REPORT#:[id number] REPORT STATUS: Signed DATE:08/14/22 TIME: 722 PATIENT: BRENNAN AHN UNIT #: [id number] ROOM/BED: [place] [address] : 42 AGE: 82 SEX: M ATTEND: [...] 08/14 1999 94 32 147/73 104 98 / 1900 86 28 149/72 103 95 08/13 1846 89 31 148/73 104 97 08/13 1815 80 25 182/77 111 100 08/13 1801 89 34 158/89 114 95 08/13 1751 92 30 120/93 103 94 / 1700 82 30 151/75 105 98 / 1645 82 28 160/74 106 96 08/13 1630 80 17 156/72 104 98 08/13 1615 80 16 154/72 104 97 / 1600 98.7 03/ 1600 79 22 143/94 112 98 03/12 1546 87 28 140/104 117 95 03/12 1530 78 30 135/61 88 97 03/12 1515 83 28 145/67 95 96 03/12 1500 78 35 157/80 112 94 03/12 1445 76 28 138/65 93 95 03/12 1430 77 33 149/67 96 99 03/ 1416 83 26 126/95 108 92 03/12 1400 78 23 129/60 86 98 03/12 1345 82 39 131/64 92 03/12 1340 98 41 107/58 77 82 03/12 1338 76 32 138/63 91 82 03/12 1330 79 32 145/70 100 84 03/ 1315 94 37 124/63 85 83 03/12 1246 78 31 127/59 85 83 03/12 1230 81 36 122/66 89 82 03/12 1215 76 27 129/62 89 86 03/12 1200 98.4 03/ 1200 72 20 123/66 84 90 03/12 1145 73 33 136/62 89 86 03/12 1130 70 21 128/60 87 95 03/12 1115 76 32 118/58 83 95 03/ 1101 85 32 124/67 89 67 03/12 1053 81 34 102/61 76 96 03/12 0946 91 36 145/88 105 100 03/12 0931 104 28 148/67 96 88 03/12 0915 82 33 179/90 119 87 03/12 0900 82 23 181/84 120 97 03/ 0845 76 32 178/83 119 98 03/ 0830 84 29 151/72 103 98 03/12 0815 81 38 173/79 113 98 03/12 0801 82 38 144/67 96 92 03/12 0800 98.4 03/ 0800 Nasal 2 cannula 03/ 0752 96 Room air 03/ 0751 91 16 174/98 103 99 03/ [...] 250 ML ONCE ONE IV (DC) Ipratropium Baker (ATROVENT) 500 MCG RTQ6H INH Ipratropium Baker (ATROVENT) 500 MCG Q2H PRN PRN INH Cyanocobalamin (Vitamin B-12 500 mcg tab) 500 MCG DAILY PO Ferrous Sulfate (FERROUS SULFATE) 325 MG DAILY PO Sodium Chloride (SODIUM CHLORIDE 0.9%) 250 ML ONCE ONE IV Bisacodyl (DULCOLAX) 10 MG ONCE PRN RECTAL Ipratropium Baker (ATROVENT) 500 MCG RTQ4H INH (DC) Dopamine [...] decereased shoulder AROM due to sternal precautions Neuro/PRESS CLIPPER: alert, oriented X 3, CNII-XII intact Results [...] (Auto) (14.0 - 32.0 %) 11.1 L [place] % (Auto) (4.8 - 9.0 %) 9.7 H Eos % (Auto) (0.3 - 3.7 %) 1.6 Baso % (Auto) (0.0 - 2.0 %) 0.3 Neut # (Auto) (2.0 - 7.6 x10 3/uL) 7.22 Lymph # (Auto) (1.0 - 3.8 x10 3/uL) 1.04 [place] # (Auto) (0.1 - 0.8 x10 3/uL) [...] surgery Rehab attestation: . at 1312 RPT #:[id number] END OF REPORT [facility] 2022-08-13 23:02:00 [facility] Internal Medicine Prog. Note REPORT#:[id number] REPORT STATUS: Signed DATE:08/13/22 TIME: 2301 PATIENT: BRENNAN AHN UNIT #: [id number] ROOM/BED: 2202-1 : 42 AGE: 82 SEX: [...] 250 ML ONCE ONE IV (DC) Ipratropium Baker (ATROVENT) 500 MCG RTQ6H INH Ipratropium Baker (ATROVENT) 500 MCG Q2H PRN PRN INH Cyanocobalamin (Vitamin B-12 500 mcg tab) 500 MCG DAILY PO Ferrous Sulfate (FERROUS SULFATE) 325 MG DAILY PO Sodium Chloride (SODIUM CHLORIDE 0.9%) 250 ML ONCE ONE IV Bisacodyl (DULCOLAX) 10 MG ONCE PRN RECTAL Ipratropium Baker (ATROVENT) 500 MCG RTQ4H INH (DC) Dopamine [...] non-tender, soft Extremities: Extremities: edema, moves all Neuro/PRESS CLIPPER: alert, oriented x 3, CNII-XII intact Results [...] (Auto) (14.0 - 32.0 %) 10.6 L [place] % (Auto) (4.8 - 9.0 %) 9.7 H Eos % (Auto) (0.3 - 3.7 %) 0.5 Baso % (Auto) (0.0 - 2.0 %) 0.2 Neut # (Auto) (2.0 - 7.6 x10 3/uL) 8.69 H Lymph # (Auto) (1.0 - 3.8 x10 3/uL) 1.18 [place] # (Auto) (0.1 - 0.8 x10 3/uL) [...] found on a cardiac catheterization done at [facility]. Patient was transferred to [facility] for CABG. 1. Coronary artery disease -Status [...] Consultants: cardiology, cardiovascular surgery at 2157 RPT #:[id number] END OF REPORT [facility] 2022-08-13 11:01:00 [facility] ([facility]) Cardiothoracic Surgery Prog REPORT#:[id number] REPORT STATUS: Signed DATE:08/13/22 TIME: 1101 PATIENT: BRENNAN AHN UNIT #: [id number] ROOM/BED: [place] [address] : 42 AGE: 82 SEX: M ATTEND: [...] moves all Musculoskeletal: full range of motion Neuro/PRESS CLIPPER: alert, oriented X 3 Skin: dry, intact Psychiatry: anxious Current Medications Medications: Active Meds + DC'd Last 24 Hrs Ipratropium Baker (ATROVENT) 500 MCG RTQ6H INH Ipratropium Baker (ATROVENT) 500 MCG Q2H PRN PRN INH Cyanocobalamin (Vitamin B-12 500 mcg tab) 500 MCG DAILY PO Ferrous Sulfate (FERROUS SULFATE) 325 MG DAILY PO Sodium Chloride (SODIUM CHLORIDE 0.9%) 250 ML ONCE ONE IV Bisacodyl (DULCOLAX) 10 MG ONCE PRN RECTAL Magnesium Hydroxide (MILK OF MAGNESIA) 30 ML ONCE PRN PO (DC) Ipratropium Baker (ATROVENT) 500 MCG RTQ4H INH (DC) Dopamine [...] (Auto) (14.0 - 32.0 %) 10.6 L [place] % (Auto) (4.8 - 9.0 %) 9.7 H Eos % (Auto) (0.3 - 3.7 %) 0.5 Baso % (Auto) (0.0 - 2.0 %) 0.2 Neut # (Auto) (2.0 - 7.6 x10 3/uL) 8.69 H Lymph # (Auto) (1.0 - 3.8 x10 3/uL) 1.18 [place] # (Auto) (0.1 - 0.8 x10 3/uL) [...] RADIOLOGY - XR CHEST 1 V 08/13 4473 Report Impression - Status: SIGNED Entered: 08/13/2022 6571 IMPRESSION: 1. Residual dense opacification of each [...] SVT ablation 20 years ago transferred to [facility] with new findings of multi-vessel CAD. He reports he was woken from Sleep on Sunday AM with COmplaints of chest pains. EMS aas called and patient was taken to [facility]. He underwent LHC and found to have multi-vessel CAD by Dr Sanchez. Patient was transferred to LT[facility] for CABG. Patient lives independently. Daughter is at bedside. Patient reports last dose of Elliquis was Saturday AM. Echo was done at [facility] showing EF 55%, Mild MR, Mild [...] points, SR and sinus arrythmnia noted on site monitor, V epicardial wires on backup rate of [...] and plan reviewed with Dr Piper, Dr Kirkpatrick [facility] and multidisciplinary team 3/12 Intermittently confused. Continue delirium precautions Minimal O2 [...] cardiovascular surgery at 1231 at 1511 RPT #:[id number] END OF REPORT [facility] 2022-08-13 09:25:00 [facility] Cardiology Progress Note REPORT#:[id number] REPORT STATUS: Signed DATE:08/13/22 TIME: 924 PATIENT: BRENNAN AHN UNIT #: [id number] ROOM/BED: [place] [address] : 42 AGE: 82 SEX: M ATTEND: [...] Dose Route Stop Time Status Admin Ipratropium Baker 500 MCG Q2H PRN PRN 08/13 1441 [...] 08/12 1200 DC 08/12 PO 1041 Ipratropium Baker 500 MCG RTQ4H 08/12 0800 AC 08/13 [...] 28 163/74 106 96 03/11 1999 37.1 03/1999 36.6 85 32 161/73 106 [...] 08/12 1115 83 33 130/67 92 97 / 1100 90 38 125/58 84 97 08/12 1045 100 29 125/60 86 96 / 1036 104 39 92/50 65 89 / 1030 98 43 88/65 71 97 08/12 1015 102 35 96 / 1000 99 27 103/51 73 93 / 0946 101 30 115/57 82 94 08/12 0930 107 43 120/58 84 91 PATIENT WEIGHT: Weight (lb): 219 Weight (oz): 12.81 Weight (kg): 99.700 Physical Exam General appearance: alert, awake, oriented, no acute distress, pleasant Head/Eyes: atraumatic, PERRL Cardiovascular: CV assessment: irregularly irregular Respiratory: rhonchi Abdomen: soft, non-tender, normal bowel sounds, no distention Lower extremity: LE assessment: edema, normal capillary refill, normal temperature Neuro/PRESS CLIPPER: alert, oriented X 3 Skin: poor skin [...] supportive care at 0929 at 1058 RPT #:[id number] END OF REPORT [facility] 2022-08-13 08:30:00 [facility] ([facility]) Critical Care Progress Note REPORT#:[id number] REPORT STATUS: Signed DATE:08/13/22 TIME: 829 PATIENT: BRENNAN AHN UNIT #: [id number] ROOM/BED: [place] [address] : 42 AGE: 82 SEX: M ATTEND: [...] Meds + DC'd Last 24 Hrs Ipratropium Baker (ATROVENT) 500 MCG Q2H PRN PRN INH Cyanocobalamin (Vitamin B-12 500 mcg tab) 500 MCG DAILY PO Ferrous Sulfate (FERROUS SULFATE) 325 MG DAILY PO Sodium Chloride (SODIUM CHLORIDE 0.9%) 250 ML ONCE ONE IV Bisacodyl (DULCOLAX) 10 MG ONCE PRN RECTAL Magnesium Hydroxide (MILK OF MAGNESIA) 30 ML ONCE PRN PO (DC) Ipratropium Baker (ATROVENT) 500 MCG RTQ4H INH Dopamine HCl/Dextrose [...] (Auto) (14.0 - 32.0 %) 10.6 L [place] % (Auto) (4.8 - 9.0 %) 9.7 H Eos % (Auto) (0.3 - 3.7 %) 0.5 Baso % (Auto) (0.0 - 2.0 %) 0.2 Neut # (Auto) (2.0 - 7.6 x10 3/uL) 8.69 H Lymph # (Auto) (1.0 - 3.8 x10 3/uL) 1.18 [place] # (Auto) (0.1 - 0.8 x10 3/uL) [...] RADIOLOGY - XR CHEST 1 V 08/13 0789 Report Impression - Status: SIGNED Entered: 08/13/2022 0756 IMPRESSION: 1. Residual dense opacification of each [...] cardiac surgery Critical care time 39 minutes 3/12 Continue supplemental oxygen and titrate FiO2 to [...] Consultants: cardiology, cardiovascular surgery at 2123 RPT #:[id number] END OF REPORT [facility] 2022-08-13 07:08:00 [facility] ([facility]) Adult General Consultation REPORT#:[id number] REPORT STATUS: Signed DATE:08/13/22 TIME: 707 PATIENT: BRENNAN AHN UNIT #: [id number] ROOM/BED: [place] [address] : 42 AGE: 82 SEX: M ATTEND: Salazar Dee MD ADM AUTHOR: Florentino Jimenez * ALL edits or amendments must be made on the electronic/computer document * History of Present Illness Reason for consult: PMR consultation Chief complaint: Debility post CABG HPI: 82-year-old male with PMH of Alzheimer's dementia, CKD, HTN, atrial fibrillation , history of SVT/ablation who was transferred to [facility] after being found to have multivessel coronary artery disease. Patient initially with was at home and developed chest pains. He was brought to [facility] and underwent left heart cath which revealed [...] Dose Route Stop Time Status Admin Ipratropium Baker 500 MCG Q2H PRN PRN 08/13 1441 AC (ATROVENT) INH 09/12 1440 Ipratropium Baker 500 MCG RTQ4H 08/12 0800 AC 08/13 [...] 08/11 929 AC 08/11 (ULTRAM) PO 08/16 Aspirin 81 MG DAILY 08/10 2040 AC [...] 08/12 (BACTROBAN 2% 22 GM NASAL 08/15 09 210 OINTMENT) Vitamins Sig/Ariana Start time Last Medication Dose Route Stop Time Status Admin Cyanocobalamin 500 MCG DAILY 08/13 0900 AC (Vitamin B-12 500 PO 09/12 0859 mcg tab) Allergies: Coded Allergies: Guevvbe-HED-DaU Reductase Inhibitor (Severe, UNKNOWN 03/08/23) Review of Systems Constitutional: fatigue, generalized weakness. [...] all, no edema, no clubbing, no cyanosis Neuro/PRESS CLIPPER: alert, CNII-XII grossly intact, normal speech Skin: [...] (Auto) (14.0 - 32.0 %) 10.6 L [place] % (Auto) (4.8 - 9.0 %) 9.7 H Eos % (Auto) (0.3 - 3.7 %) 0.5 Baso % (Auto) (0.0 - 2.0 %) 0.2 Neut # (Auto) (2.0 - 7.6 x10 3/uL) 8.69 H Lymph # (Auto) (1.0 - 3.8 x10 3/uL) 1.18 [place] # (Auto) (0.1 - 0.8 x10 3/uL) [...] Report Impression - Status: SIGNED Entered: 08/12/2022 IMPRESSION: 1. Minimal left apical pneumothorax. Moderate [...] Will require insurance approval at 1839 RPT #:[id number] END OF REPORT [facility] 2022-08-12 17:20:00 [id number] [address] PATIENT NAME: BRENNAN AHN ADMIT DATE: 08/09/22 ACCOUNT NO: [id number] ROOM NO: [facility] AGE: 82 REPORT TYPE: eECHOCARDIOGRAM REPORT SEX: M ADMITTING PHYSICIAN:Salazra Dee MD ATTENDING PHYSICIAN:Salazar Dee MD *[address] [address] Limited Transthoracic Echocardiogram Patient: Brennan Ahn Study Date: 08/12/2022 BP: 125 / 60 Location: [facility] URN: [id number] : 1940 Age: 82 Height: 71 in / 180.3 cm Gender: M Weight: 224.5 lb / 102.1 kg BMI/BSA: 31.4 kg/m 2 / 2.29 m 2 *Ordering Physician: * Shiloh Pimentel *Interpreting Physician: * Alli Quiros MD *Fruit Rancher: * [place] Indications: EVAL CARDIAC FUNCTION. Study data: Transthoracic echocardiogram, limited study. Procedure: Transthoracic echocardiography was performed. Images were obtained using a uBiome cardiac ultrasound machine. Image quality was fair. [...] ratio 3.13 --------- Pulmonic valve Value Ref AK v, ED 0.8 m/sec --------- Tricuspid valve [...] 17:20 at 1720 PATIENT NAME: BRENNAN AHN [facility] 2022-08-12 17:14:00 [facility] Nephrology Consultation Note REPORT#:[id number] REPORT STATUS: Signed DATE:08/12/22 TIME: 1714 PATIENT: BRENNAN AHN UNIT #: [id number] ROOM/BED: [place] [id number] : [birth year] AGE: 82 SEX: M ATTEND: [...] issues in the past and seeing a accordion repairer at [place] but his kidney function had been stable [...] use: Denies recreational drugs Allergies: Coded Allergies: Ujkgljk-CBH-VaE Reductase Inhibitor (Severe, UNKNOWN 08/09/22) Review of [...] 28 163/74 106 96 03/11 2000 37.1 03/1999 36.6 85 32 161/73 106 [...] issues in the past and seeing a accordion repairer at [place] but his kidney function had been stable [...] SBP goes above 160. at 1042 RPT #:[id number] END OF REPORT [facility] 2022-08-12 12:51:00 [facility] Internal Medicine Prog. Note REPORT#:[id number] REPORT STATUS: Signed DATE:08/12/22 TIME: 1251 PATIENT: BRENNAN AHN UNIT #: [id number] ROOM/BED: [place] [address] : 42 AGE: 82 SEX: M ATTEND: [...] I O ending at 0700: 08/12 0700 03 1900 Intake Total 626.00 3105.00 Output Total [...] Meds + DC'd Last 24 Hrs Ipratropium Baker (ATROVENT) 500 MCG Q2H PRN PRN INH Cyanocobalamin (Vitamin B-12 500 mcg tab) 500 MCG DAILY PO Ferrous Sulfate (FERROUS SULFATE) 325 MG DAILY PO Bisacodyl (DULCOLAX) 10 MG ONCE PRN RECTAL Magnesium Hydroxide (MILK OF MAGNESIA) 30 ML ONCE PRN PO (DC) Ipratropium Baker (ATROVENT) 500 MCG RTQ4H INH Metoprolol Tartrate [...] Chloride (SODIUM CHLORIDE 0.9%) 99 ML Ipratropium Baker (ATROVENT) 500 MCG Q4H INH (DC) Magnesium [...] non-tender, soft Extremities: Extremities: edema, moves all Neuro/PRESS CLIPPER: alert, oriented x 3, CNII-XII intact Results [...] (Auto) (14.0 - 32.0 %) 10.5 L [place] % (Auto) (4.8 - 9.0 %) 8.6 Eos % (Auto) (0.3 - 3.7 %) 0.0 L Baso % (Auto) (0.0 - 2.0 %) 0.2 Neut # (Auto) (2.0 - 7.6 x10 3/uL) 9.73 H Lymph # (Auto) (1.0 - 3.8 x10 3/uL) 1.27 [place] # (Auto) (0.1 - 0.8 x10 3/uL) [...] RADIOLOGY - XR CHEST 1 V 08/12 0789 Report Impression - Status: SIGNED Entered: 08/12/2022 [...] found on a cardiac catheterization done at [facility]. Patient was transferred to [facility] for CABG. 1. Coronary artery disease -Status [...] Consultants: cardiology, cardiovascular surgery at 2157 RPT #:[id number] END OF REPORT [facility] 2022-08-12 11:09:00 [facility] ([facility]) Cardiology Progress Note REPORT#:[id number] REPORT STATUS: Signed DATE:08/12/22 TIME: 1109 PATIENT: BRENNAN AHN UNIT #: [id number] ROOM/BED: [place] [address] : 42 AGE: 82 SEX: M ATTEND: Saalzar Dee MD ADM AUTHOR: Guera Marion NP [...] Dose Route Stop Time Status Admin Ipratropium Baker 500 MCG Q2H PRN PRN 08/13 1441 AC INH 09/12 1440 Cyanocobalamin 500 MCG DAILY 08/13 0900 AC PO 09/12 0859 Ferrous Sulfate 325 MG DAILY 08/13 0900 AC PO 09/12 0859 Bisacodyl 10 MG ONCE PRN 08/12 1200 AC RECTAL 09/11 1159 Magnesium Hydroxide 30 ML ONCE PRN 08/12 1200 DC 08/12 PO 1041 Ipratropium Baker 500 MCG RTQ4H 08/12 0800 AC 08/12 [...] BID 08/10 2100 AC 08/12 PO 09/09 2059 1044 Metoprolol Tartrate 12.5 MG Q12HR 08/10 2100 AC 08/12 PO 09/09 2059 1043 Mupirocin 1 APPLIC BID 08/10 2100 AC 08/12 NASAL 08/15 0901 1043 Sennosides 17.2 MG BEDTIME 08/10 2100 AC 08/11 PO 09/09 2059 1934 Aspirin 81 MG DAILY 08/10 2041 [...] Chloride 99 ML IV 09/09 1444 Ipratropium Baker 500 MCG Q4H 08/10 1445 DC 08/12 [...] assessment: edema, normal capillary refill, normal temperature Neuro/PRESS CLIPPER: alert, oriented X 3 Skin: poor skin [...] monitor post-op at 1114 at 1058 RPT #:[id number] END OF REPORT [facility] 2022-08-12 10:33:00 [facility] ([facility] Critical Care Progress Note REPORT#:[id number] REPORT STATUS: Signed DATE:08/12/22 TIME: 1033 PATIENT: BRENNAN AHN UNIT #: [id number] ROOM/BED: [place] [address] : 42 AGE: 82 SEX: M ATTEND: [...] Meds + DC'd Last 24 Hrs Ipratropium Baker (ATROVENT) 500 MCG Q2H PRN PRN INH Cyanocobalamin (Vitamin B-12 500 mcg tab) 500 MCG DAILY PO Ferrous Sulfate (FERROUS SULFATE) 325 MG DAILY PO Bisacodyl (DULCOLAX) 10 MG ONCE PRN RECTAL Magnesium Hydroxide (MILK OF MAGNESIA) 30 ML ONCE PRN PO Ipratropium Baker (ATROVENT) 500 MCG RTQ4H INH Metoprolol Tartrate [...] Chloride (SODIUM CHLORIDE 0.9%) 99 ML Ipratropium Baker (ATROVENT) 500 MCG Q4H INH (DC) Magnesium [...] (Auto) (14.0 - 32.0 %) 10.5 L [place] % (Auto) (4.8 - 9.0 %) 8.6 Eos % (Auto) (0.3 - 3.7 %) 0.0 L Baso % (Auto) (0.0 - 2.0 %) 0.2 Neut # (Auto) (2.0 - 7.6 x10 3/uL) 9.73 H Lymph # (Auto) (1.0 - 3.8 x10 3/uL) 1.27 [place] # (Auto) (0.1 - 0.8 x10 3/uL) [...] Consultants: cardiology, cardiovascular surgery at 1542 RPT #:[id number] END OF REPORT [facility] 2022-08-12 10:01:00 [facility] Cardiothoracic Surgery Prog REPORT#:[id number] REPORT STATUS: Signed DATE:08/12/22 TIME: 1001 PATIENT: BRENNAN AHN UNIT #: [id number] ROOM/BED: [place] [address] : 42 AGE: 82 SEX: M ATTEND: Salazar Dee MD ADM AUTHOR: Shiloh Pimentel COLLECTOR OF [employer] * ALL edits or amendments must be made on the electronic/computer document * General Post-op: day 2 Status post: 08/10/22 CABG x 5 (NGUYEN-LAD, SVG-Olga Lidia, SVG-OM, SVG-LPLA, SVG-PDA) PVI TIMMY HOANGH (RGSV) Subjective Chief complaint: Follow-up CABG Review [...] moves all Musculoskeletal: full range of motion Neuro/PRESS CLIPPER: alert, oriented X 3 Skin: dry, intact Psychiatry: anxious Current Medications Medications: Active Meds + DC'd Last 24 Hrs Ipratropium Baker (ATROVENT) 500 MCG Q2H PRN PRN INH Cyanocobalamin (Vitamin B-12 500 mcg tab) 500 MCG DAILY PO Ferrous Sulfate (FERROUS SULFATE) 325 MG DAILY PO Bisacodyl (DULCOLAX) 10 MG ONCE PRN RECTAL Magnesium Hydroxide (MILK OF MAGNESIA) 30 ML ONCE PRN PO Ipratropium Baker (ATROVENT) 500 MCG RTQ4H INH Metoprolol Tartrate [...] Chloride (SODIUM CHLORIDE 0.9%) 99 ML Ipratropium Baker (ATROVENT) 500 MCG Q4H INH (DC) Magnesium [...] (Auto) (14.0 - 32.0 %) 10.5 L [place] % (Auto) (4.8 - 9.0 %) 8.6 Eos % (Auto) (0.3 - 3.7 %) 0.0 L Baso % (Auto) (0.0 - 2.0 %) 0.2 Neut # (Auto) (2.0 - 7.6 x10 3/uL) 9.73 H Lymph # (Auto) (1.0 - 3.8 x10 3/uL) 1.27 [place] # (Auto) (0.1 - 0.8 x10 3/uL) [...] RADIOLOGY - XR CHEST 1 V 08/12 9733 Report Impression - Status: SIGNED Entered: 08/12/2022 [...] SVT ablation 20 years ago transferred to [facility] with new findings of multi-vessel CAD. He reports he was woken from Sleep on Sunday AM with COmplaints of chest pains. EMS aas called and patient was taken to [facility]. He underwent LHC and found to have multi-vessel CAD by Dr Sanchez. Patient was transferred to LT[facility] for CABG. Patient lives independently. Daughter is at bedside. Patient reports last dose of Elliquis was Sunday AM. Echo was done at [facility] showing EF 55%, Mild MR, Mild [...] points, SR and sinus arrythmnia noted on site monitor, V epicardial wires on backup rate of [...] plan reviewed with Dr Piper, Dr Kirkpatrick, [facility] and multidisciplinary team Consultants: cardiology, cardiovascular surgery at 1407 at 0947 RPT #:[id number] END OF REPORT [facility] 2022-08-12 00:59:00 [id number] [place] [address] PATIENT NAME: BRENNAN AHN ADMIT DATE: 08/09/22 ACCOUNT NO: [id number] ROOM NO: [facility] AGE: 82 REPORT TYPE: eELECTROCARDIOGRAM REPORT SEX: M ADMITTING PHYSICIAN:Salazar Dee MD ATTENDING PHYSICIAN:Salazar Dee MD Order: [id number] Test Reason : post op/CHANGE ON MONITOR [...] Referred By: Confirmed by:GAVI RENAE MD at 7644 PATIENT NAME: BRENNAN AHN [facility] 2022-08-11 17:42:00 [facility] ([facility]) Cardiology Consultation REPORT#:[id number] REPORT STATUS: Signed DATE:08/11/22 TIME: 174 PATIENT: BRENNAN AHN UNIT #: [id number] ROOM/BED: [place] [address] : 42 AGE: 82 SEX: M ATTEND: [...] use: Denies recreational drugs Allergies: Coded Allergies: Vajvzkp-SBE-MqX Reductase Inhibitor (Severe, UNKNOWN 08/09/22) Review of [...] /10 1630 66 32 131/60 87 96 / 1617 139/36 61 /10 1617 66 33 125/58 83 94 /10 [...] extremity: LE assessment: no cyanosis, no edema Neuro/PRESS CLIPPER: alert, oriented X 3, normal speech Skin: dry, intact Psychiatry: normal affect, normal judgment/insight, normal mood, no hallucinations Medications: Active Meds + DC'd Last 24 Hrs Ipratropium Baker (ATROVENT) 500 MCG Q2H PRN PRN INH [...] Chloride (SODIUM CHLORIDE 0.9%) 99 ML Ipratropium Baker (ATROVENT) 500 MCG Q4H INH Magnesium Sulfate [...] (Auto) (14.0 - 32.0 %) 5.2 L [place] % (Auto) (4.8 - 9.0 %) 8.7 Eos % (Auto) (0.3 - 3.7 %) 0.1 L Baso % (Auto) (0.0 - 2.0 %) 0.2 Neut # (Auto) (2.0 - 7.6 x10 3/uL) 10.86 H Lymph # (Auto) (1.0 - 3.8 x10 3/uL) 0.66 L [place] # (Auto) (0.1 - 0.8 x10 3/uL) [...] resume home meds as tolerated,. at 0705 RPT #:[id number] END OF REPORT [facility] 2022-08-11 12:01:00 [facility] ([facility]) Adult General Consultation REPORT#:[id number] REPORT STATUS: Signed DATE:08/11/22 TIME: 1201 PATIENT: BRENNAN AHN UNIT #: [id number] ROOM/BED: [place] [address] : 42 AGE: 82 SEX: M ATTEND: [...] found on a cardiac catheterization done at [facility]. Patient was transferred to [facility] for CABG. Patient is a poor historian [...] Dose Route Stop Time Status Admin Ipratropium Baker 500 MCG Q2H PRN PRN 08/13 1441 AC (ATROVENT) INH 09/12 1440 Dopamine HCl/Dextrose 250 ML ASDIR 08/11 1445 AC (DOPamine 400MG/D5W IV 09/10 1444 250ML) Epinephrine 4 MG ASDIR 08/10 1445 AC (ADRENALIN CHLORIDE) IV 09/09 1444 Dextrose/Water 246 ML (DEXTROSE 5% WATER) Ipratropium Baker 500 MCG Q4H 08/10 1445 AC 08/11 [...] 929 AC 08/11 (ULTRAM) PO 08/16 928 0925 Aspirin 81 MG DAILY 08/10 2040 [...] 09/12 0859 mcg tab) Allergies: Coded Allergies: Ehhsvcs-YLX-PwA Reductase Inhibitor (Severe, UNKNOWN 08/09/22) Objective VS/I [...] soft, non-tender Extremities: moves all, no edema Neuro/PRESS CLIPPER: alert, oriented X 3, CNII-XII grossly intact [...] (Auto) (14.0 - 32.0 %) 5.2 L [place] % (Auto) (4.8 - 9.0 %) 8.7 Eos % (Auto) (0.3 - 3.7 %) 0.1 L Baso % (Auto) (0.0 - 2.0 %) 0.2 Neut # (Auto) (2.0 - 7.6 x10 3/uL) 10.86 H Lymph # (Auto) (1.0 - 3.8 x10 3/uL) 0.66 L [place] # (Auto) (0.1 - 0.8 x10 3/uL) [...] (Auto) (14.0 - 32.0 %) 3.8 L [place] % (Auto) (4.8 - 9.0 %) 1.8 L Eos % (Auto) (0.3 - 3.7 %) 0.3 Baso % (Auto) (0.0 - 2.0 %) 0.2 Neut # (Auto) (2.0 - 7.6 x10 3/uL) 16.78 H Lymph # (Auto) (1.0 - 3.8 x10 3/uL) 0.69 L [place] # (Auto) (0.1 - 0.8 x10 3/uL) [...] found on a cardiac catheterization done at [facility]. Patient was transferred to [facility] for CABG. 1. Coronary artery disease -Status post CABG x5 -Continue metoprolol, Plavix, aspirin -Chest tubes in place and draining 2. Atrial fibrillation -Continue IV amiodarone for rate control -Continue metoprolol -Monitor and review telemetry 3. Debility -.-PT/OT at 2157 RPT #:[id number] END OF REPORT [facility] 2022-08-11 11:10:00 [facility] Cardiothoracic Surgery Prog REPORT#:[id number] REPORT STATUS: Signed DATE:08/11/22 TIME: 1110 PATIENT: BRENNAN AHN UNIT #: [id number] ROOM/BED: [place] [address] : 42 AGE: 82 SEX: M ATTEND: Salazar Dee MD ADM AUTHOR: Shiloh Pimentel COLLECTOR OF [employer]QU[employer]CIM[employer] * ALL edits or amendments must be [...] moves all Musculoskeletal: full range of motion Neuro/PRESS CLIPPER: alert, oriented X 3 Skin: dry, intact Psychiatry: anxious Current Medications Medications: Active Meds + DC'd Last 24 Hrs Ipratropium Baker (ATROVENT) 500 MCG Q2H PRN PRN INH [...] Chloride (SODIUM CHLORIDE 0.9%) 99 ML Ipratropium Baker (ATROVENT) 500 MCG Q4H INH Magnesium Sulfate [...] INR (0.8 - 1.2) 1.5 H PTT (Martin) (25.0 - 39.5 Seconds) 32.6 PT Patient/Control [...] - 32.0 %) 5.2 L 3.8 L [place] % (Auto) (4.8 - 9.0 %) 8.7 1.8 L Eos % (Auto) (0.3 - 3.7 %) 0.1 L 0.3 Baso % (Auto) (0.0 - 2.0 %) 0.2 0.2 Neut # (Auto) (2.0 - 7.6 x10 3/uL) 10.86 H 16.78 H Lymph # (Auto) (1.0 - 3.8 x10 3/uL) 0.66 L 0.69 L [place] # (Auto) (0.1 - 0.8 x10 3/uL) [...] SVT ablation 20 years ago transferred to [facility] with new findings of multi-vessel CAD. He reports he was woken from Sleep on Sunday AM with COmplaints of chest pains. EMS aas called and patient was taken to [facility]. He underwent LHC and found to have multi-vessel CAD by Dr Sanchez. Patient was transferred to [facility] for CABG. Patient lives independently. Daughter is at bedside. Patient reports last dose of Elliquis was Sunday. Echo was done at [facility] showing EF 55%, Mild MR, Mild [...] points, SR and sinus arrythmnia noted on site monitor, V epicardial wires on backup rate of [...] ICU team. at 1509 at 0947 RPT #:[id number] END OF REPORT [facility] 2022-08-11 08:49:00 [facility] Critical Care Progress Note REPORT#:[id number] REPORT STATUS: Signed DATE:08/11/22 TIME: 0849 PATIENT: BRENNAN AHN UNIT #: [id number] ROOM/BED: [place] [address] : 42 AGE: 82 SEX: M ATTEND: [...] Ox 100 08/11 828 Pulse 63 08/11 08 Resp 27 08/11 828 Temp 36.5 08/11 [...] Meds + DC'd Last 24 Hrs Ipratropium Baker (ATROVENT) 500 MCG Q2H PRN PRN INH [...] Chloride (SODIUM CHLORIDE 0.9%) 99 ML Ipratropium Baker (ATROVENT) 500 MCG Q4H INH Magnesium Sulfate [...] (ZOFRAN) 0 .STK-MED ONE .ROUTE (DC) Rocuronium Baker (ZEMURON) 0 .STK-MED ONE IV (DC) Aminocaproic [...] - 32.0 %) 5.2 L 3.8 L [place] % (Auto) (4.8 - 9.0 %) 8.7 1.8 L Eos % (Auto) (0.3 - 3.7 %) 0.1 L 0.3 Baso % (Auto) (0.0 - 2.0 %) 0.2 0.2 Neut # (Auto) (2.0 - 7.6 x10 3/uL) 10.86 H 16.78 H Lymph # (Auto) (1.0 - 3.8 x10 3/uL) 0.66 L 0.69 L [place] # (Auto) (0.1 - 0.8 x10 3/uL) [...] Report Impression - Status: SIGNED Entered: 08/10/2022 8744 IMPRESSION: Status post median sternotomy and CABG [...] and GI prophylaxis with DAPT and PPI 10 Continue supplemental oxygen and titrate FiO2 to [...] care time 41 minutes at 1833 RPT #:[id number] END OF REPORT [facility] 2022-08-10 18:48:00 [id number] [place] [address] PATIENT NAME: BRENNAN AHN ADMIT DATE: 08/09/22 ACCOUNT NO: [id number] ROOM NO: G.2202 AGE: 82 REPORT TYPE: [...] in size. Arteriotomy was performed with a Craighead blade and extended with Blackman scissors. A [...] in size. Arteriotomy was performed with a Craighead blade and extended with Blackman scissors. A [...] mm in size. Arteriotomy was performed with Craighead blade and extended with Blackman scissors. A [...] in size. Arteriotomy was performed with a Craighead blade and extended with Blackman scissors. A [...] in size. Arteriotomy was performed with a Craighead blade and extended with Blackman scissors. NGUYEN was anastomosed in end-to-side manner using running 8-0 Prolene suture. NGUYEN was tacked to the epicardium using two interrupted 6-0 Prolene sutures. A slit was made in the pericardium on the left aspect, so as to accommodate the NGUYEN. Careful de-aeration was performed and the crossclamp was released. One ventricular wire was placed. A 28-Lithuanian chest tube was placed in the mediastinum [...] Dictated: 08/10/2022 18:48:16 Date Transcribed: 08/10/2022 23:10:28 [facility] Receipt ID: [id number] Authenticated and Edited by Ruth Dee MD On 08/19/22 9:38:36 AM at 0941 PATIENT NAME: BRENNAN AHN [facility] 2022-08-10 18:39:00 [facility] ([facility]) Brief Op Note REPORT#:[id number] REPORT STATUS: Signed DATE:08/10/22 TIME: 1838 PATIENT: BRENNAN AHN UNIT #: [id number] ROOM/BED: [place] [address] : 42 AGE: 82 SEX: M ATTEND: Salazar Dee MD ADM AUTHOR: Salazar Dee MD * ALL edits or amendments must be made on the electronic/computer document * Op/Inv Proc Note - Brief Pre-procedure diagnosis: CAD PAF Post-procedure diagnosis: same as pre procedure dx Procedures performed: CABG x 5 (NGUYEN-LAD, SVG-Olga Lidia, SVG-OM, SVG-LPLA, SVG-PDA) PVI ALAA EVH (RGSV) Primary Surgeon: Josephine Meat Packager(s): Kaya Piper Findings: LAD-2mm Complications: none Estimated blood loss in ml's: 100 cc Specimens removed/altered: ARISTEO at 1842 RPT #:[id number] END OF REPORT [facility] 2022-08-10 16:18:00 [facility] ([facility]) Critical Care Consult Note REPORT#:[id number] REPORT STATUS: Signed DATE:08/10/22 TIME: 1618 PATIENT: BRENNAN AHN UNIT #: [id number] ROOM/BED: [place] [address] : 42 AGE: 82 SEX: M ATTEND: [...] use: Denies recreational drugs Allergies: Coded Allergies: Xtjhybo-UPT-CyC Reductase Inhibitor (Severe, UNKNOWN 08/09/22) Review of [...] Meds + DC'd Last 24 Hrs Ipratropium Baker (ATROVENT) 500 MCG Q2H PRN PRN INH [...] Chloride (SODIUM CHLORIDE 0.9%) 99 ML Ipratropium Baker (ATROVENT) 500 MCG Q4H INH Magnesium Sulfate [...] (ZOFRAN) 0 .STK-MED ONE .ROUTE (DC) Rocuronium Baker (ZEMURON) 0 .STK-MED ONE IV (DC) Aminocaproic [...] L Temperature (F) 97.5 O2 Delivery Device AerRubysophic Laboratory Tests 08/10 08/10 08/10 08/10 08/10 [...] - 32.0 %) 3.8 L 19.1 18.3 [place] % (Auto) (4.8 - 9.0 %) 1.8 L 12.8 H 9.3 H Eos % (Auto) (0.3 - 3.7 %) 0.3 2.2 1.6 Baso % (Auto) (0.0 - 2.0 %) 0.2 0.4 0.5 Neut # (Auto) (2.0 - 7.6 x10 3/uL) 16.78 H 5.52 6.14 Lymph # (Auto) (1.0 - 3.8 x10 3/uL) 0.69 L 1.61 1.61 [place] # (Auto) (0.1 - 0.8 x10 3/uL) [...] pH (5.0 - 7.0) 5.0 Ur Specific [place] (1.005 - 1.030) 1.015 Urine Protein (NEGATIVE) [...] may represent atelectasis and/or consolidation. Impression By: NayelyABChip - Eric Edgar M.D. CAT SCAN - CT CHEST W/O CONTRAST 08/09 1715 Report Impression - Status: SIGNED Entered: 08/09/2022 1926 IMPRESSION: 1. Ectatic, nonaneurysmal aortic root (37 mm) with hxgc-wi-iumjufla calcification. 2. Remaining thoracoabdominal aorta is normal [...] characterization, if indicated. COMMENTS: Consistent with the [employer]'s Incidental Findings Committee white [...] pedis Musculoskeletal: normal inspection, no muscle spasm Neuro/PRESS CLIPPER: Sedated but arousable, CNII-XII grossly intact, no motor deficits Skin: dry, intact and clean surgery dressing Diagnosis, Assessment Plan Diagnosis, Assessment Plan Problem list/A P: 1. CAD (coronary artery disease) 2. Postoperative pulmonary dysfunction after cardiac surgery 3. S/P CABG x 5 Orders: Procedure Date/time Status Medication Management Message 08/10 5123 Complete Plan discussed with: family, consultants, nurse, [...] GI prophylaxis with DAPT and PPI at 1537 RPT #:[id number] END OF REPORT [facility] 2022-08-10 16:14:00 [phone] [address] PATIENT NAME: BRENNAN AHN ADMIT DATE: 08/09/22 ACCOUNT NO: [id number] ROOM NO: [facility] AGE: 82 REPORT TYPE: eELECTROCARDIOGRAM REPORT SEX: M ADMITTING PHYSICIAN:Salazar Dee MD ATTENDING PHYSICIAN:Salazar Dee MD Order: [id number] Test Reason : CV SURGRY Test Date/Time [...] 21:46, Significant changes have occurred Confirmed by BATOOL GREGG RAKESH ([id number]) on 08/12/2022 6:14:26 AM Referred By: RACEBOOK WRITER Confirmed by:GAVI RENAE MD at 0614 PATIENT NAME: BRENNAN AHN [facility] 2022-08-10 09:35:00 [facility] ([facility]) Clinical Note REPORT#:[id number] REPORT STATUS: Signed DATE:08/10/22 TIME: 934 PATIENT: BRENNAN AHN UNIT #: [id number] ROOM/BED: [place] [address] : 42 AGE: 82 SEX: M ATTEND: [...] Length of Stay: 4.225% at 0936 RPT #:[id number] END OF REPORT [facility] 2022-08-09 21:46:00 [id number] [place] [address] PATIENT NAME: BRENNAN AHN ADMIT DATE: 08/09/22 ACCOUNT NO: [id number] ROOM NO: AGE: 82 REPORT TYPE: eELECTROCARDIOGRAM REPORT SEX: M ADMITTING PHYSICIAN:Salazar Dee MD ATTENDING PHYSICIAN:Salazar Dee MD Order: [id number] Test Reason : PRE CABG Test Date/Time [...] MD at 0828 PATIENT NAME: BRENNAN AHN [facility] 2022-08-09 21:11:00 [facility] ([facility]) History Physical - Adult REPORT#:[id number] REPORT STATUS: Signed DATE:08/09/22 TIME: 2110 PATIENT: BRENNAN AHN UNIT #: [id number] ROOM/BED: [place] [address] : 42 AGE: 82 SEX: M ATTEND: [...] SVT ablation 20 years ago trasnferred to [facility] with new findings of multi-vessel CAD. He reports he was awekne from Sleep on Sunday AM with COmplaints of chest pains. EMS was called and patient was taken to [facility]. He underwent LHC and found to have multi-vessel CAD by Dr Sanchez. Patient was transferred to [facility] for CABG. Patient lives independently. Daughter is at bedside. Daughter reports recent concerns regarding his memeory. She does report he was told by his primary MD he likely has Alzheimers, however he has not been evaluated by Nerology. Patient reports last dose of Elliquis was Satuday AM. Echo was done at [facility] showing EF 55%, Mild MR, Mild [...] recreational drugs Medication/Allergy-Vaccine Hx Allergies: Coded Allergies: Xxtrwck-YFC-QkP Reductase Inhibitor (Severe, UNKNOWN 08/09/22) Review of [...] Musculoskeletal: full range of motion, normal inspection Neuro/PRESS CLIPPER: alert, oriented X 3 Skin: dry, intact Lymphatic: no lymphadenopathy Diagnosis, Assessment Plan Free Text DxA P Notes Free Text DxA P Notes: 82 year old with PMH of hypertension, atrial fibrillation, On Eliquis, Hx of SVT ablation 20 years ago transferred to [facility] with new findings of multi-vessel CAD. He reports he was woken from Sleep on Sunday AM with COmplaints of chest pains. EMS aas called and patient was taken to [facility]. He underwent LHC and found to have multi-vessel CAD by Dr Sanchez. Patient was transferred to [facility] for CABG. Patient lives independently. Daughter is at bedside. Patient reports last dose of Elliquis was Sunday AM. Echo was done at [facility] showing EF 55%, Mild MR, Mild [...] Uribe. Briefly, 82 YO male transferred from [place] with severe CAD. Patient will benefit from surgical revascularization. I have explained to him the procedure, risk involved, benefit, alternatives, STS risk score, and the benefit. Patient has agreed for surgery.I am making arrangement for Mr Ahn to have CABg in the near future. at 2133 at 1948 [facility] #:[id number] END [facility]
[2025-01-24 19:14] LABS: Absolute Lymphocytes (CBC) 1.3 K/uL (0.7-4.9); Hematocrit 39.0 % (39.6-49.0); Hemoglobin 12.9 g/dL (13.6-17.9); MCH 30.6 pg (27.0-35.0); MCHC 33.2 g/dL (32.0-36.0); MCV 92.3 fL (80-100); MPV 8.1 fL (7.6-11.3); Nucleated RBC Absolute Count 0.0 (0-0); Nucleated Red Blood Cells % 0.0 % (0-0); RBC Red Blood Cell Count 4.22 M/uL (4.33-5.43); White Blood Count 5.80 thou/uL (4.3-10.9)
[2025-01-24 19:33] LABS: Anion Gap 7.2 mEq/L (5.0-15.0); BUN Blood Urea Nitrogen 33.0 mg/dL (7-18); Glucose Level 139.0 mg/dL (74-106)
[2025-01-24 19:34] LABS: Potassium 4.2 mEq/L (3.5-5.1)
--- NOTE | 2025-01-24 20:06 | RAD REPORT ---
EXAMINATION: Abdomen Pelvis Wo Contrast CLINICAL INDICATION: Male, 84 years old.HEMATURIA TECHNIQUE: CT abdomen and pelvis was performed, without IV contrast, as per department protocol. Axia l, sagittal and coronal reconstructions were obtained. One or more of the following dose reduction techniques were used: Automated exposure control, adjustment of the mA and/or kV according to the pat ient size, and/or iterative reconstruction. Unless otherwise specified, incidental findings do not require dedicated imaging follow-up. [id number]. IV CONTRAST: Not administered. COMPARISON: No prior exams FINDINGS: The lack of intravenous contrast limits the sensitivity of this exam for evaluation of solid visceral organs, vascular structures, and retroperitoneum. LOWER CHEST: No acute process identified.No significant pericardial effusion. Moderate coronary arter y calcifications.Mild circumferential thickening of the distal esophagus which could reflect esophagitis. UPPER GI: No significant abnormality. LIVER: No significant focal abnormality. GALLBLADDER/BILE DUCTS: No biliary ductal dilatation.? PANCREAS: No mass, ductal dilation, or dc-pancreatic fluid. SPLEEN: Unremarkable. ADRENALS: No adrenal masses. KIDNEYS AND URETERS: No hydronephrosis.Low density and/or too small to characterize renal lesions whi ch are statistically benign. ABDOMINAL AORTA AND OTHER VESSELS: Severe atherosclerotic changes. No aortic aneurysm. PERITONEUM: No abnormal free fluid. No free air. LYMPH NODES: No pathologic lymphadenopathy. ABDOMINAL WALL: Fat containing inguinal hernias. SMALL BOWEL/COLON: Small bowel has normal course and caliber. No colonic wall thickening or pericolon ic inflammatory changes.Normal appendix. Mild diverticulosis without diverticulitis. URINARY BLADDER: Underdistended but grossly unremarkable. REPRODUCTIVE ORGANS: Moderate prostatomegaly. MUSCULOSKELETAL: Multilevel degenerative changes in the spine. No acute fracture. Sternotomy. ADDITIONAL FINDINGS: None. IMPRESSION: No acute findings within the abdomen or pelvis. Incidental findings as noted above.
[2025-01-24 21:20] LABS: Sqamous Epithelial <5 /HPF (None Seen); Urine Culture Reflex Order REFLEXED; Urine Microscopic Reflex YN ORDER UMIC
--- NOTE | 2025-01-24 21:52 | ER ---
Nurse's Notes [facility] Name: Tim Ahn Age: 84 yrs Sex: Male : 1940 Arrival Date: 01/24/2025 Time: 18:28 Bed IW10 Private MD: Diagnosis: Hematuria, unspecified Presentation: 01/24 18:31 Chief complaint: Patient states: he went to urinate this afternoon and noticed bright ab3 red bleeding coming from his urethra. He denies clots, pain, dizziness or any other urinary symptoms. Pt has h/o Alzheimer's on memory care unit at [facility] living, but oriented to person, place and situation. EMS started 20G PIV en route. Coronavirus screen: Vaccine status: Client denies travel out of the [place] in the last 14 days. At this time, the client does not indicate any symptoms associated with coronavirus-19. Ebola Screen: No symptoms or risks identified at this time. Initial Sepsis Screen: Does the patient meet any 2 criteria? No. Patient's initial sepsis screen is negative. Does the patient have a suspected source of infection? No. Patient's initial sepsis screen is negative. Risk Assessment: Do you want to hurt yourself or someone else? Patient reports no desire to harm self or others. Onset of symptoms was January 24, 2025. 18:31 Method Of Arrival: EMS: [facility] ab3 18:31 Acuity: LUCIEN 3 ab3 Triage Assessment: 18:39 General: Appears in no apparent distress. Pain: Denies pain. Neuro: No deficits noted. ab3 Cardiovascular: No deficits noted. Respiratory: No deficits noted. GI: No deficits noted. : Reports discharge, bloody, sudden episode of hematuria prior to arrival, described as bright, red bleeding without clots or pain. 18:45 General: Behavior is calm, cooperative. ab3 Historical: - Allergies: 18:38 Aggrenox; ab3 18:38 Dexamethasone; ab3 18:38 Diltiazem; ab3 18:38 Diovan; ab3 18:38 guanfacine; ab3 18:38 Lisinopril; ab3 18:38 Enalapril; ab3 18:38 Uegyczj-Waj-Jwq Reductase Inhibitors; ab3 18:38 valsartan; ab3 - PMHx: 18:38 Alzheimer's disease; Anemia; Atrial Fib; BPH; COPD; coronary atherosclerosis; Dementia; ab3 Hypertension; Myocardial infarction; SVT; - Immunization history:: Adult Immunizations up to date, unable to recall. - Infectious Disease History:: Denies. - Social history:: Smoking status: Patient denies any tobacco usage or history of. Patient/guardian denies using alcohol, street drugs. Screenin:43 [facility] ED Fall Risk Assessment (Adult) History of falling in the last 3 months, ab3 including since admission No falls in past 3 months (0 pts) Confusion or Disorientation No (0 pts) Intoxicated or Sedated No (0 pts) Impaired Gait Mobility Assist Device Used No (0 pt) Altered Elimination Yes (1 pt) Score/Fall Risk Level 0 - 2 = Low Risk Oriented to surroundings, Maintained a safe environment, Educated pt \T\ family on fall prevention, incl call for assistance when getting out of bed, Hourly rounding (assess needs \T\ fall precautionary measures) done. Abuse screen: Denies threats or abuse. Denies injuries from another. Nutritional screening: No deficits noted. Tuberculosis screening: No symptoms or risk factors identified. Assessment: 18:31 General: see triage assessment entered by this RN. ab3 Vital Signs: 18:31 BP 136 / 75; Pulse 70; Resp 18; Temp 98.1(O); Pulse Ox 98% on R/A; Weight 85.28 kg; ab3 Height 6 ft. 0 in. ; Pain 0/10; 18:40 BP 139 / 63; Pulse 63; Resp 18; Pulse Ox 98% on R/A; ab3 22:00 BP 129 / 69; Pulse 63; Resp 18; Pulse Ox 97% on R/A; sd4 18:31 Body Mass Index 25.50 (85.28 kg, 182.88 cm) ab3 18:31 Pain Scale: Adult ab3 Ellis Coma Score: 18:40 Eye Response: spontaneous(4). Motor Response: obeys commands(6). Verbal Response: ab3 confused(4). Total: 14. 18:40 disoriented to time/year only; pt with h/o alzheimer's and was reoriented to time. ab3 (oriented to person, place and situation) ED Course: 18:30 Patient arrived in ED. em1 18:30 Cassandra Armstrong, RN is Primary Nurse. ab3 18:38 Triage completed. ab3 18:40 Arm band placed on. ab3 18:42 Tracie Correa FNP-C is [facility]. kb 18:42 Russ Renae MD is Attending Physician. kb 18:44 Provided Education on: oriented to ER and call light-use. ab3 18:45 Maintain EMS IV. Dressing intact. Site clean \T\ dry. Gauge \T\ site: 20 G to R FA; Saline ab 3 locked by EMS prior to arrival. Flushed with 10 mL NS IV is patent, Changed dressing on 18:46 Patient has correct armband on for positive identification. Allergy band placed. Placed ab3 in gown. Bed in low position. Call light in reach. Side rails up X 1. Adult w/ patient. 18:54 Alia patients POA would lilke a call when we get results back on her dad/ [place]/ her cell number is [phone]. 18:59 Initial lab(s) drawn, by me, sent to lab. ab3 18:59 No provider procedures requiring assistance completed. ab3 19:10 Report given to Gauri RN; BRIDGER Trujillo out. ab3 19:33 Gauri You RN is Primary Nurse. sd4 19:54 Abdomen In Process Unspecified. EDMS Administered Medications: 23:09 Not Given (Pt left before order placedd): [id number] mg PO once sd4 Medication: 18:46 VIS not applicable for this client. ab3 Outcome: 21:52 Discharge ordered by . kb 23:14 Patient left the ED. sd4 Signatures: Dispatcher [employer] EDMS Tracie Correa FNP-C FNP-Jorge Connors em1 Deisi Saunders Cassandra Armstrong, RN RN ab3 Gauri You RN RN sd4 Corrections: (The following items were deleted from the chart) 19:14 19:13 No provider procedures requiring assistance completed. ab3 ab3
--- NOTE | 2025-01-24 21:52 | EDPHYS ---
Physician Documentation [facility] Name: Tim Ahn Age: 84 yrs Sex: Male : 1940 Arrival Date: 01/24/2025 Time: 18:28 Bed IW10 Private MD: ED Physician Russ Renae HPI: 01/24 21:53 This 84 yrs old Male presents to ER via EMS with complaints of Penile Bleeding. kb 21:53 Patient is a 84-year-old male who presents for hematuria that started just prior to kb arrival. Denies any pain, dysuria, fever, difficulty urinating. States he has not had this before.. Historical: - Allergies: 18:38 Aggrenox; ab3 18:38 Dexamethasone; ab3 18:38 Diltiazem; ab3 18:38 Diovan; ab3 18:38 guanfacine; ab3 18:38 Lisinopril; ab3 18:38 Enalapril; ab3 18:38 Lwldnzr-Rez-Rgj Reductase Inhibitors; ab3 18:38 valsartan; ab3 - PMHx: 18:38 Alzheimer's disease; Anemia; Atrial Fib; BPH; COPD; coronary atherosclerosis; Dementia; ab3 Hypertension; Myocardial infarction; SVT; - Immunization history:: Adult Immunizations up to date, unable to recall. - Infectious Disease History:: Denies. - Social history:: Smoking status: Patient denies any tobacco usage or history of. Patient/guardian denies using alcohol, street drugs. ROS: 21:53 Constitutional: As per HPI kb Exam: 21:53 Constitutional: This is a well developed, well nourished patient who is awake, alert, kb and in no acute distress. Head/Face: Normocephalic, atraumatic. ENT: Moist Mucous membranes Cardiovascular: Regular rate Respiratory: Respirations even and unlabored. No increased work of breathing. Talking in full sentences Abdomen/GI: Soft, non-tender. No distention Skin: Warm, dry with normal turgor. Normal color. MS/ Extremity: Pulses equal, no cyanosis. Neurovascular intact. Full, normal range of motion. Neuro: Awake and alert, GCS 15, oriented to person, place, time, and situation. Vital Signs: 18:31 BP 136 / 75; Pulse 70; Resp 18; Temp 98.1(O); Pulse Ox 98% on R/A; Weight 85.28 kg; ab3 Height 6 ft. 0 in. ; Pain 0/10; 18:40 BP 139 / 63; Pulse 63; Resp 18; Pulse Ox 98% on R/A; ab3 22:00 BP 129 / 69; Pulse 63; Resp 18; Pulse Ox 97% on R/A; sd4 18:31 Body Mass Index 25.50 (85.28 kg, 182.88 cm) ab3 18:31 Pain Scale: Adult ab3 Nottingham Coma Score: 18:40 Eye Response: spontaneous(4). Motor Response: obeys commands(6). Verbal Response: ab3 confused(4). Total: 14. 18:40 disoriented to time/year only; pt with h/o alzheimer's and was reoriented to time. ab3 (oriented to person, place and situation) MDM: 18:42 Medical Screening Exam initiated kb 21:54 Differential diagnosis: UTI, urinary retention, Kidney stone, pyelonephritis. Data kb reviewed: vital signs, nurses notes. Historians other than the Patient: Family Member: Granddaughter. Counseling: I had a detailed discussion with the patient and/or guardian regarding the historical points, exam findings, and any diagnostic results supporting the discharge/admit diagnosis, lab results, radiology results, the need for outpatient follow up, a urologist, , to return to the emergency department if symptoms worsen or persist or if there are any questions or concerns that arise at home. ED course: Urine is tea colored, clear with no clots. Patient has no difficulty urinating. Will prescribe antibiotics and educated to follow-up with urology. Patient educated on strict return precautions. Granddaughter and patient gave verbal understanding.. 01/24 18:34 Order name: UA Rfx Jose Maria Cult if indicated; Complete Time: 21:23 rn 01/24 18:45 Order name: CBC with Diff; Complete Time: 19:26 kb 01/24 18:45 Order name: BMP; Complete Time: 19:36 kb 01/24 21:25 Order name: Urine Culture EDCO 01/24 19:40 Order name: Abdomen ; Complete Time: 20:08 EDCO 01/24 18:45 Order name: IV Start; Complete Time: 18:52 kb Administered Medications: 23:09 Not Given (Pt left before order placedd): [id number] mg PO once sd4 Disposition: 01/25 06:58 Co-signature as Attending Physician, Russ Renae MD I reviewed the patient's care rn provided by the Advanced Practice Provider and agree with the diagnosis and treatment plan. Disposition Summary: 01/24/25 21:52 Discharge Ordered Notes: Location: Home kb Condition: Stable kb Diagnosis - Hematuria, unspecified kb Followup: kb - With: Emergency Department - When: As needed - Reason: Worsening of condition Followup: kb - With: Private Physician - When: 2 - 3 days - Reason: Recheck today's complaints, Continuance of care, Re-evaluation by your physician Discharge Instructions: - Discharge Summary Sheet kb - Hematuria, Adult kb Forms: - Medication Reconciliation Form kb - Antibiotic Education kb - Prescription Opioid Use kb - Patient Portal Instructions kb - Leadership Thank You Letter kb Prescriptions: - Cipro 500 mg Oral Tablet - take 1 tablet ORAL route every 12 hours for 10 days; 20 tablet; Refills: 0, kb Product Selection Permitted Signatures: Dispatcher [employer] EDTracie Syed, CONNER-C LAP CUTTER TRUER OPERATOR-Ckb Russ Renae MD MD rn Blaylock, Allie, RN RN ab3 Gauri You RN sd4 Corrections: (The following items were deleted from the chart) 01/24 19:40 18:45 Abdomen Pelvis W Con+CT.RAD.BRZ ordered. EDCO EDCO
[2025-01-24 23:27] VITALS: TEMP 98.1
[2025-01-24 23:31] VITALS: BP 129/69; O2SAT 97
== END 2025-01-24 23:14 | disposition home or self-care (01) ==
LOC: ER 18:28
DX: R31.9 Hematuria, unspecified (principal)
CPT/HCPCS: 36415; 74176; 80048; 81001; 85025; 87086; 87088; 99283

== ENCOUNTER 2025-03-03 08:36 | Emergency (ER) | payer OTHER ==
[2025-03-03 09:23] LABS: Absolute Lymphocytes (CBC) 1.2 K/uL (0.7-4.9); Hematocrit 44.1 % (39.6-49.0); Hemoglobin 14.6 g/dL (13.6-17.9); MCH 30.4 pg (27.0-35.0); MCHC 33.2 g/dL (32.0-36.0); MCV 91.6 fL (80-100); MPV 7.7 fL (7.6-11.3); Nucleated RBC Absolute Count 0.0 (0-0); Nucleated Red Blood Cells % 0.2 % (0-0); RBC Red Blood Cell Count 4.81 M/uL (4.33-5.43); White Blood Count 4.30 thou/uL (4.3-10.9)
[2025-03-03 09:36] LABS: Anion Gap 8.1 mEq/L (5.0-15.0); BUN Blood Urea Nitrogen 32.0 mg/dL (7-18); Glucose Level 86.0 mg/dL (74-106); Potassium 4.1 mEq/L (3.5-5.1)
[2025-03-03 09:47] LABS: Urine Culture Reflex Order REFLEXED; Urine Microscopic Reflex YN ORDER UMIC
[2025-03-03 09:52] LABS: Urine WBC Clump Few /HPF (None Seen); Urine Yeast (Budding) Few /HPF (None Seen)
[2025-03-03 09:53] LABS: Sqamous Epithelial <5 /HPF (None Seen)
--- NOTE | 2025-03-03 11:36 | ER ---
Nurse's Notes [facility] Name: Tim Ahn Age: 84 yrs Sex: Male : 1940 Arrival Date: 03/03/2025 Time: 08:36 Bed 7 Private MD: Diagnosis: Gross hematuria;Essential (primary) hypertension Presentation: 03/03 08:40 Chief complaint: EMS states: HEMATURIA SINCE THIS AM. Coronavirus screen: At this time, bp the client does not indicate any symptoms associated with coronavirus-19. Ebola Screen: No symptoms or risks identified at this time. Initial Sepsis Screen: Does the patient meet any 2 criteria? No. Patient's initial sepsis screen is negative. Does the patient have a suspected source of infection? No. Patient's initial sepsis screen is negative. Risk Assessment: Do you want to hurt yourself or someone else? Patient reports no desire to harm self or others. Onset of symptoms was March 03, 2025. 08:40 Method Of Arrival: EMS: [facility] bp 08:40 Acuity: LUCIEN 3 bp Triage Assessment: 08:41 General: Appears in no apparent distress. Behavior is calm, cooperative, appropriate bp for age. Pain: Denies pain. EENT: No deficits noted. Neuro: No deficits noted. Cardiovascular: No deficits noted. Respiratory: No deficits noted. GI: No signs and/or symptoms were reported involving the gastrointestinal system. : Reports HEMATURIA. Derm: No deficits noted. Musculoskeletal: No deficits noted. Historical: - Allergies: 08:41 Aggrenox; bp 08:41 Dexamethasone; bp 08:41 Diltiazem; bp 08:41 Diovan; bp 08:41 Enalapril; bp 08:41 guanfacine; bp 08:41 Lisinopril; bp 08:41 Vnlkkbq-Pzf-Ufj Reductase Inhibitors; bp 08:41 valsartan; bp - PMHx: 08:41 Alzheimer's disease; Myocardial infarction; Dementia; Hypertension; coronary bp atherosclerosis; COPD; BPH; Atrial Fib; Anemia; SVT; - PSHx: 08:41 Aortocoronary Bypass Graft; left knee; bp - Immunization history:: Adult Immunizations up to date. - Infectious Disease History:: Denies. - Social history:: Smoking status: Patient denies any tobacco usage or history of. Screenin:43 [facility] ED Fall Risk Assessment (Adult) History of falling in the last 3 months, bp including since admission No falls in past 3 months (0 pts) Confusion or Disorientation No (0 pts) Intoxicated or Sedated No (0 pts) Impaired Gait No (0 pts) Mobility Assist Device Used No (0 pt) Altered Elimination No (0 pt) Score/Fall Risk Level 0 - 2 = Low Risk Oriented to surroundings. Abuse screen: Denies threats or abuse. Denies injuries from another. Nutritional screening: No deficits noted. Tuberculosis screening: No symptoms or risk factors identified. Assessment: 08:43 General: SEE TRIAGE NOTE. bp Vital Signs: 08:40 BP 144 / 74; Pulse 70; Resp 16; Temp 98; Pulse Ox 97% ; bp 11:46 BP 137 / 75; Pulse 75; Resp 16; Pulse Ox 96% ; bp ED Course: 08:37 Patient arrived in ED. bd 08:38 Elier Villalobos DO is Attending Physician. ms3 08:39 Genaro Darby, RN is Primary Nurse. bp 08:41 Triage completed. bp 08:41 Arm band placed on. bp 08:43 Patient has correct armband on for positive identification. bp 09:13 Initial lab(s) drawn, by me, sent to lab. Urine collected: clean catch specimen, charbel bp colored, blood tinged. Inserted saline lock: 20 gauge in right forearm, using aseptic technique. Blood collected. Flushed with 10 mL NS. 09:29 pt daughter called would like to be called when there is a update.....Leticia bd [phone]. 11:35 Hector Edwards MD is Referral Physician. ms3 11:42 No provider procedures requiring assistance completed. IV discontinued, intact, ab3 bleeding controlled, Pressure dressing applied. Administered Medications: No medications were administered Medication: 08:43 VIS not applicable for this client. bp Outcome: 11:35 Discharge ordered by . ms3 11:46 Discharged to home ambulatory, with family, bp 11:46 Condition: stable 11:46 Discharge instructions given to patient, Instructed on discharge instructions, follow up and referral plans. Demonstrated understanding of instructions, follow-up care, 11:47 Patient left the ED. bp Signatures: Kandice Mcguire bd Genaro Darby, RN RN bp Elier Villalobos DO DO ms3 Cassandra Armstrong, RN RN ab3
--- NOTE | 2025-03-03 11:36 | EDPHYS ---
Physician Documentation [facility] Name: Tim Ahn Age: 84 yrs Sex: Male : 1940 Arrival Date: 03/03/2025 Time: 08:36 Bed 7 Private MD: ED Physician Elier Villalobos HPI: 03/03 08:55 This 84 yrs old Male presents to ER via EMS with complaints of hematuria. ms3 08:55 84-year-old male with past medical history of Alzheimer disease, myocardial infarction, ms3 dementia, hypertension, coronary arthrosclerosis, atrial fibrillation presents to the emergency department via [facility] for hematuria that began this morning. Patient states he has had hematuria in the past. Patient denies pain. Patient denies fevers, chills, nausea, vomiting, diarrhea. Historical: - Allergies: 08:41 Aggrenox; bp 08:41 Dexamethasone; bp 08:41 Diltiazem; bp 08:41 Diovan; bp 08:41 Enalapril; bp 08:41 guanfacine; bp 08:41 Lisinopril; bp 08:41 Nbezorp-Sju-Brz Reductase Inhibitors; bp 08:41 valsartan; bp - PMHx: 08:41 Alzheimer's disease; Myocardial infarction; Dementia; Hypertension; coronary bp atherosclerosis; COPD; BPH; Atrial Fib; Anemia; SVT; - PSHx: 08:41 Aortocoronary Bypass Graft; left knee; bp - Immunization history:: Adult Immunizations up to date. - Infectious Disease History:: Denies. - Social history:: Smoking status: Patient denies any tobacco usage or history of. ROS: 08:55 Constitutional: Negative for fever, and chills. Cardiovascular: Negative for chest ms3 pain, and palpitations. Respiratory: Negative for shortness of breath, cough, wheezing, and pleuritic chest pain, Abdomen/GI: Negative for abdominal pain, nausea, vomiting, diarrhea, and constipation, 08:55 Skin: Negative for injury, rash, and discoloration, 08:55 : Positive for hematuria, Exam: 08:55 Constitutional: This is a well developed, well nourished patient who is awake, alert, ms3 and in no acute distress. Cardiovascular: Regular rate and rhythm with a normal S1 and S2. No gallops, murmurs, or rubs. Normal PMI, no JVD. No pulse deficits. Respiratory: Lungs have equal breath sounds bilaterally, clear to auscultation and percussion. No rales, rhonchi or wheezes noted. No increased work of breathing, no retractions or nasal flaring. Abdomen/GI: Soft, non-tender, with normal bowel sounds. No distension or tympany. No guarding or rebound. No evidence of tenderness throughout. Skin: Warm, dry with normal turgor. Normal color with no rashes, no lesions, and no evidence of cellulitis. Vital Signs: 08:40 BP 144 / 74; Pulse 70; Resp 16; Temp 98; Pulse Ox 97% ; bp 11:46 BP 137 / 75; Pulse 75; Resp 16; Pulse Ox 96% ; bp MDM: 08:54 Medical Screening Exam initiated ms3 08:55 Differential diagnosis: UTI, urinary retention, Hematuria. ms3 17:55 Data reviewed: vital signs, nurses notes, lab test result(s), and as a result, I will ms3 discharge patient. Historians other than the Patient: EMS: [facility]. Counseling: I had a detailed discussion with the patient and/or guardian regarding the historical points, exam findings, and any diagnostic results supporting the discharge/admit diagnosis, lab results, the need for outpatient follow up, to return to the emergency department if symptoms worsen or persist or if there are any questions or concerns that arise at home. Special discussion: I discussed with the patient/guardian in detail that at this point there is no indication for admission to the hospital. It is understood, however, that if the symptoms persist or worsen the patient needs to return immediately for re-evaluation. ED course: Patient without urinary retention in the emergency department. Patient's son states patient has appointment scheduled with Dr. Edwards. Patient to follow-up Dr. Edwards as scheduled. All questions were answered. UA not significant for urinary tract infection. Return precautions discussed include urinary retention, suprapubic pain, fevers, worsening symptoms, or any other concerns.. 03/03 08:40 Order name: UA Rfx Jose Maria Cult if indicated; Complete Time: 09:56 ms3 03/03 08:40 Order name: CBC with Diff; Complete Time: 09:45 ms3 03/03 08:40 Order name: BMP; Complete Time: 09:45 ms3 03/03 09:56 Order name: Urine Culture EDMS Administered Medications: No medications were administered Disposition Summary: 03/03/25 11:35 Discharge Ordered Notes: Location: Home ms3 Condition: Stable ms3 Diagnosis - Gross hematuria ms3 - Essential (primary) hypertension ms3 Followup: ms3 - With: Hector Edwards MD - When: 2 - 3 days - Reason: Recheck today's complaints Discharge Instructions: - Discharge Summary Sheet ms3 - Hematuria, Adult ms3 - Hypertension, Adult ms3 - DASH Eating Plan ms3 Forms: - Medication Reconciliation Form ms3 - Antibiotic Education ms3 - Prescription Opioid Use ms3 - Patient Portal Instructions ms3 - Leadership Thank You Letter ms3 Signatures: Dispatcher [employer] Genaro Willingham RN RN bp Elier Villalobos DO DO ms3 Corrections: (The following items were deleted from the chart) 11:46 10:12 Bladder Irrigation ordered. ms3 bp
== END 2025-03-03 11:47 | disposition home or self-care (01) ==
LOC: ER 08:36
DX: R31.0 Gross hematuria (principal); I10 Essential (primary) hypertension; Z88.8 Allergy status to other drugs, medicaments and biological substances
CPT/HCPCS: 36415; 80048; 81001; 85025; 87086; 87088; 99284